=== PATIENT | male | born 1965 | race Caucasian/White ===

== ENCOUNTER 2022-08-21 11:24 | Day surgery (SDC) | payer BC, SELFPAY ==
--- NOTE | 2022-08-21 12:20 | W.PM.PROCNOT ---
Date of procedure: 08/21/22 Procedure: Bilateral Lateral cutaneous branch Iliohypogastric nerve injection, diagnostic Preop diagnosis includes pain secondary to neuritis of Bilateral Lateral cutaneous branch middle cluneal nerves Postop diagnosis same Performed under fluoroscopic guidance Immediate complications none Anesthesia: none Solution used for injection: In each syringe, 2 milliliters 0.25% Marcaine 2.5 mL is used for injection for each side Time out process compliant After informed consent obtained patient was brought to the procedure room placed in the prone position skin overlying the area was prepped and draped in a sterile fashion using betadine. 25 gauge spinal needle Insert over each of the target areas identified in fluoroscopy corresponding needles were advanced Under fluoroscopic guidance until the target/targets encountered , no indication of intravascular or Intraneuronal needle tip placement. Solution injected .needles removed post procedurally. patient transferred to recovery room in stable condition to be discharged home after meeting criteria
[2022-08-21 12:31] VITALS: BP 139/81; PULSE 79; RESP 16; TEMP 36.8; O2SAT 98
[2022-08-21 13:05] VITALS: BP 147/79; PULSE 91; RESP 20; O2SAT 97
[2022-08-21] MEDS: BUPIVACAINE HCL 0.25% PF 25 MG/10 ML VIAL 8 ML INJ (13:06)
[2022-08-21 13:08] VITALS: BP 160/75; PULSE 90; O2SAT 97
== END 2022-08-21 13:14 | disposition home or self-care (01) ==
LOC: SURGOUT 11:25
PROVIDERS: PCP Nurse Practitioner Family; Visit Provider Anesthesiology Pain Medicine
DX: G57.83 Other specified mononeuropathies of bilateral lower limbs (principal)
CPT/HCPCS: 64425; 77002

== ENCOUNTER 2022-09-11 12:30 | Outpatient (OUT) | payer BC, SELFPAY ==
--- NOTE | 2022-09-11 17:28 | CONS_ITS ---
CONSULTATION DATE: ??09/11/2022 TO:? Dr. Barcenas HISTORY:? Patient presents today complaining of pain in his left hip area.? He describes it as 5-7/10 pain, sharp in character, increased with any kind of weight bearing maneuvers.? He feels most comfortable in the semi-recumbent position.? Denies any change in bowel and bladder habits or new sensorimotor changes in the lower extremities. EXAM:? Notable for patient having no clinical radiculopathy or myelopathy involving the lower extremities.? Patient had exquisitely positive left sided FABERs sign, suggestive of left hip joint related pain clinically.? IMPRESSION:? Patient appears to have chronic pain secondary to left hip joint related pain clinically. RECOMMENDATIONS:? I have recommended him to undergo an MRI of his left hip joint.? In the interim, I have increased his baclofen 10 mg pills, 1-2 pills t.i.d. as tolerated.? As part of providing excellent, safe, comprehensive care, the following was completed at our patient's visit: 1. A medication reconciliation and review to ensure accurate knowledge of current/active medications, including asking our patients to inform us about any [id number] medications or herbal remedies/nutritional supplements/alternative remedies. 2. A review to specifically ensure our patients have had annual screening for: elevated body mass index (BMI, see intake chart for exact total), tobacco use, screening for depression, and screening for unhealthy alcohol use.? When screening is concerning, patients are provided with education and the specific recommendation to discuss the concerning health issue and treatment options with their primary care provider. LEIF
== END 2022-09-11 12:31 | disposition home or self-care (01) ==
LOC: PM 12:31
PROVIDERS: PCP Nurse Practitioner Family; Visit Provider Anesthesiology Pain Medicine
DX: M25.552 Pain in left hip (principal); G89.29 Other chronic pain
CPT/HCPCS: G0463

== ENCOUNTER 2022-09-20 12:25 | Outpatient (OUT) | payer BC, SELFPAY ==
--- NOTE | 2022-09-20 12:46 | XR_ITS ---
[address] [address] Patient Name: ASHOK DOSS MRN: [id number] date: 1965 Sex: M Assigned Patient Location: RAD Current Patient Location: [facility] Accession/Order Number: [id number] Exam Date: 09/20/2022 12:47 Report Date: 09/20/2022 13:30 At the request of: AGUSTO STARKS Procedure: XR foreign body eye EXAM: XR foreign body eye HISTORY: Foreign body eye COMPARISON: None. TECHNIQUE: AP and lateral Radiographs of the orbits FINDINGS: No radiopaque foreign body identified in the region of the orbits. Dental amalgam. XR/XR foreign body eye IMPRESSION: No radiopaque foreign body in the region of the orbits. Electronically authenticated by: NURIS RIVERA Date: 09/20/2022 13:30
--- NOTE | 2022-09-20 13:10 | MR_ITS ---
The [address] [address] Patient Name: ASHOK DOSS MRN: [id number] date: 1965 Sex: M Assigned Patient Location: [facility] Current Patient Location: [facility] Accession/Order Number: [id number] Exam Date: 09/20/2022 13:10 Report Date: 09/21/2022 14:35 At the request of: AGUSTO STARKS Procedure: MR hip LT wo con EXAM: MR hip LT wo con HISTORY: Lumbar pain. M25.552. Left hip pain for 2 months. Prior right leg injury with over compensating on the left. COMPARISON: Pelvis and bilateral hip x-rays from 07/31/2022. TECHNIQUE: Multiplanar and multisequence imaging of the pelvis and left hip was performed without contrast. FINDINGS: There is no sacral fracture. The pelvic bones are intact including the pubic rami. There is no MRI evidence of avascular necrosis involving the femoral heads. No femoral stress or insufficiency fracture is identified. Moderate to severe degenerative change/osteoarthritis involves the left hip including high-grade or full-thickness articular cartilage loss along the superolateral aspect of the left hip measuring approximately 1 cm in diameter. There is a small to moderate left hip joint effusion with an associated tear of the superior labrum on the left. An area of loculated fluid signal along the lateral margin of the superior acetabulum on the left measures 1.9 x 1.3 x 1.3 cm likely representing a complex paralabral cyst. Mild to moderate degenerative change/osteoarthritis involves the right hip with articular cartilage loss and joint space narrowing. There is a small right hip joint effusion. There appears to be a tear of the superior labrum on the right as well. The hamstring tendon origin from the ischial tuberosity demonstrates intermediate signal and mild to moderate tendinopathy more pronounced on the right. The iliopsoas tendons insert normally onto the lesser trochanter. The gluteal tendon attachment onto the greater trochanter is intact bilaterally. There is no MRI evidence of trochanteric bursitis. No acute abnormality is identified involving visualized intrapelvic structures. There is moderate to severe degenerative disc disease at L5-S1. MR/MR hip LT wo con IMPRESSION: 1. Moderate to severe degenerative change/osteoarthritis involves the left hip including high-grade articular cartilage loss along the superolateral aspect of the left hip. 2. There is a small to moderate left hip joint effusion with a tear of the superior labrum on the left. There is a complex paralabral cyst lateral to the superior acetabulum on the left measuring 1.9 x 1.3 x 1.3 cm. 3. Mild to moderate degenerative change/osteoarthritis involves the right hip. 4. No acute fracture or MRI evidence of avascular necrosis involving the femoral heads. 5. There is mild to moderate tendinopathy of the hamstring tendon origin bilaterally. 6. Moderate to severe degenerative disc disease is present at L5-S1. Electronically authenticated by: JENAE CASILLAS Date: 09/21/2022 14:35
== END 2022-09-20 12:26 | disposition home or self-care (01) ==
LOC: RAD 12:25
PROVIDERS: PCP Nurse Practitioner Family; Visit Provider Anesthesiology Pain Medicine
DX: M25.552 Pain in left hip (principal); M16.12 Unilateral primary osteoarthritis, left hip; S43.432A Superior glenoid labrum lesion of left shoulder, initial encounter; M47.816 Spondylosis without myelopathy or radiculopathy, lumbar region
CPT/HCPCS: 70030; 73721

== ENCOUNTER 2022-09-27 11:02 | Outpatient (OUT) | payer BC, SELFPAY ==
--- NOTE | 2022-09-27 11:12 | PM.CN ---
Consult Note: HPI Data of Consult Patient: known to practice within the last 3 years Consult date: 09/27/22 Requesting Physician: AD GOTTLIEB NP Primary Care Provider: HUNTER ROBINS Consult Narrative Narrative: Patient is here for f/u of hip pain. Pain is in the left hip, worse with walking and ROM exercises. No new sensorimotor sx or bowel or bladder issues. No adverse medication SE. Medications assist patient with better ability to perform ADLs. MRI results discussed with patient, questions answered. He has seen orthopedics for his knee and they advised he would need total hip done left. He wants to get surgery done and does not want hip injections at this time. cc:: CC: AD GOTTLIEB NP Review of Systems ROS Status of ROS 10 or more systems reviewed and unremarkable except as noted in history and below Musculoskeletal Reports: extremity pain and joint pain Meds Home Medications and Allergies Home Medications Medication Instructions Recorded Confirmed Type apixaban 5 mg tablet (Eliquis) 5 mg Q12H 08/14/22 History aspirin 81 mg capsule 81 mg PO DAILY 08/14/22 08/21/22 History atorvastatin 80 mg tablet mg PO .HS 08/14/22 History baclofen 10 mg tablet 10 mg PO TID PRN muscle spasm 08/14/22 08/21/22 History divalproex 125 mg tablet,delayed 125 mg PO TID 08/14/22 08/21/22 History release hydrocodone 5 mg-acetaminophen 325 1 tab PO BID PRN pain 08/14/22 08/21/22 History mg tablet lisinopril 20 tab PO .QD 08/14/22 History mg-hydrochlorothiazide 12.5 mg tablet metoprolol tartrate 25 mg tablet mg PO BID 08/14/22 History Allergies Allergy/AdvReac Type Severity Reaction Status Date / Time No Known Drug Allergies Allergy Verified 08/14/22 16:02 Exam Constitutional Documenting provider has reviewed patient's vital signs: yes Common normals: no apparent distress, oriented x3, healthy appearing, alert and well nourished General appearance: cooperative, comfortable and well developed Orientation/consciousness: Yes awake, Yes oriented to person, Yes oriented to place and Yes oriented to time HENNM Common normals: normocephalic and moist oral mucous membranes Respiratory Common normals: normal respiratory effort, no retractions and no use of accessory muscles Effort & inspection: able to speak in complete sentences and symmetric chest movement Extremity Common normals: normal capillary refill and no pedal edema Other: left hip pain with ROM, no radiculopathy muscle strength 4/5 bilat with intact sensation Assessment and Plan Assessment and Plan (1) Osteoarthritis, hip, bilateral: Plan orthopedic referral narcan rx
== END 2022-09-27 11:03 | disposition home or self-care (01) ==
PROVIDERS: PCP Nurse Practitioner Family; Visit Provider Nurse Practitioner
DX: M16.0 Bilateral primary osteoarthritis of hip (principal)
CPT/HCPCS: G0463

== ENCOUNTER 2022-12-27 10:58 | Outpatient (OUT) | payer BC, SELFPAY ==
--- NOTE | 2022-12-27 11:15 | P.CN_ITS ---
Consult Note: HPI Data of Consult Patient: known to practice within the last 3 years Consult date: 09/27/22 Requesting Physician: Priscilla Elkins NP Primary Care Provider: HUNTER ROBINS Consult Narrative Reason for consult: f/u Narrative: Patient is here for f/u of hip pain. Pain is in the left hip, worse with walking and ROM exercises. No new sensorimotor sx or bowel or bladder issues. No adverse medication SE. Medications assist patient with better ability to perform ADLs. He has seen orthopedics for his knee and they advised he would need total hip done left. He wants to get surgery done and does not want hip injections at this time. Currently working with [employer] and [employer] to get his hip surgery covered. Today rating pain 4/10 in left hip cc:: CC: Priscilla Elkins NP Review of Systems ROS Status of ROS 10 or more systems reviewed and unremarkable except as noted in history and below Musculoskeletal Reports: extremity pain and joint pain Meds Home Medications and Allergies Home Medications Medication Instructions Recorded Confirmed Type apixaban 5 mg tablet (Eliquis) 5 mg Q12H 08/14/22 History aspirin 81 mg capsule 81 mg PO DAILY 08/14/22 08/21/22 History atorvastatin 80 mg tablet mg PO .HS 08/14/22 History baclofen 10 mg tablet 10 mg PO TID PRN muscle spasm 08/14/22 08/21/22 History divalproex 125 mg tablet,delayed 125 mg PO TID 08/14/22 08/21/22 History release hydrocodone 5 mg-acetaminophen 325 1 tab PO BID PRN pain 08/14/22 08/21/22 History mg tablet lisinopril 20 tab PO .QD 08/14/22 History mg-hydrochlorothiazide 12.5 mg tablet metoprolol tartrate 25 mg tablet mg PO BID 08/14/22 History hydrocodone 5 mg-acetaminophen 325 1 tab PO BID PRN pain #60 tabs 10/17/22 Rx mg tablet hydrocodone 5 mg-acetaminophen 325 1 tab PO BID PRN pain #60 tabs 11/15/22 Rx mg tablet hydrocodone 5 mg-acetaminophen 325 1 tab PO BID PRN pain #60 tabs 11/15/22 Rx mg tablet hydrocodone 5 mg-acetaminophen 325 1 tab PO BID PRN pain #60 tabs 12/19/22 Rx mg tablet Allergies Allergy/AdvReac Type Severity Reaction Status Date / Time No Known Drug Allergies Allergy Verified 08/14/22 16:02 Exam Constitutional Documenting provider has reviewed patient's vital signs: yes Common normals: no apparent distress, oriented x3, healthy appearing, alert and well nourished General appearance: cooperative, comfortable and well developed Orientation/consciousness: Yes awake, Yes oriented to person, Yes oriented to place and Yes oriented to time HENMT Common normals: normocephalic and moist oral mucous membranes Respiratory Common normals: normal respiratory effort, no retractions and no use of accessory muscles Effort & inspection: able to speak in complete sentences and symmetric chest movement Extremity Common normals: normal capillary refill and no pedal edema Other: left hip pain with ROM, no radiculopathy muscle strength 4/5 bilat with intact sensation Neuro Common normals: oriented x3, moves all extremities and deep tendon reflexes 2+ bilaterally Gait (neuro): antalgic and assistive device used cane Motor exam: strength abnormal (4/5 LLE) Assessment and Plan Assessment and Plan (1) Osteoarthritis, hip, bilateral: (2) Labral tear of left hip joint: (3) Chronic prescription opiate use: Assessment and Plan: I have refilled the patient's opioid prescriptions at the above noted dose and schedule.? I feel these medications are improving the patient's quality of life and allow them to tolerate activities of daily living as well as participate in recreational activity.? The patient does not report intolerable side effects. The patient is NOT opioid naive and non-pharmacologic and non-opioid treatment has failed to significantly relieve the patient's pain and improve functionality. The patient has a diagnosis that is related to a somatic or visceral pain etiology. ? ?? I reviewed with the patient the potential risks and side effects with the use of? opioid medications including but not limited to respiratory depression,? sedation, and even . I verified the patient has access to naloxone should? these effects occur. I advised the patient to avoid the use of any other? sedation substances including alcohol, THC, and benzodiazepines while? taking opioid medications due to the risk of compounding side effects and? detrimental outcomes. I reviewed the DISTANCE LEARNING PROGRAM COORDINATOR, pain treatment agreement, urine? drug screen, and opioid start talking forms. The patient was advised to let? their family know they had Naloxone in case they would need to administer? the medication.? ?? A drug screen was completed within the last year, and no aberrancies were noted regarding their use of controlled substances. The patient understands they are subject to the terms and conditions of the pain contract that they have signed. ? ?? I have checked an [place] report on this patient today and there are no aberrancies noted in the prescribing history.? Plan UDS updated today start lidocaine 5% patch to left hip 12hours on 12hours off continue current medication regimen tolerating well without side effect rusty previously discussed and prescribed continue f/u with ortho f/u 3 months for medication management
== END 2022-12-27 10:59 | disposition home or self-care (01) ==
PROVIDERS: PCP Nurse Practitioner Family; Visit Provider Nurse Practitioner
DX: M16.0 Bilateral primary osteoarthritis of hip (principal); S73.192A Other sprain of left hip, initial encounter; Z79.899 Other long term (current) drug therapy
CPT/HCPCS: G0463

== ENCOUNTER 2023-03-28 12:36 | Outpatient (OUT) | payer BC, SELFPAY ==
--- OUTSIDE RECORDS SUMMARY | 2023-03-28 12:40 | XMS_ITS | CCD ---
Author Name Unknown Address [address] [place] [address] Organization [facility] Care Team Providers Care Tool Repairer Name Role Phone Brenda Caglevajeansad Paulina Primary Care Provider KASH GRIER Referring Unavailabl e GURJIT, SHIVAPRASAD K Primary Care Unavailabl e GURJIT, SHIVAPRASAD K Referring Unavailabl e KASH GRIER Primary Care Unavailabl e GURJIT, SHIVAPRASAD K Referring Unavailabl e KASH GRIER Primary Care Unavailabl e GURJIT, SHIVAPRASAD K Primary Care Unavailabl e LIU JACKSON Referring Unavailable ANAYA HORTON Referring Unavailable GURJIT, SHIVAPRASAD K Primary Care Unavailabl e NARRA, FLACO Referring Unavailable KASH GRIER Primary Care Unavailabl e GURJIT, SHIVAPRASAD K Referring Unavailabl e KASH GRIER Primary Care Unavailabl e LIU JACKSON Admitting Unavailable LIU JACKSON Attending Unavailable GURJIT, SHIVAPRASAD K Primary Care Unavailabl e NARRA, FLACO Referring Unavailable KASH GRIER Primary Care Unavailabl e GURJIT, SHIVAPRASAD K Primary Care Unavailabl e KASH GRIER Referring Unavailabl e GURJIT, SHIVAPRASAD K Primary Care Unavailabl e KASH GRIER Referring Unavailabl e GURJIT, SHIVAPRASAD K Primary Care Unavailabl e PATRIA QUIÑONES Referring Unavailable Kash Grier Primary Care Provider Colten Parra Unavailable Unavailable Unavailable Unavailable Primary Care Provider Unavailindira e DELMI ., DR COMPA Vo Attending Unavailable AWAD ., DR COMPA Vo Admitting Unavailable JULIENNE, HUNTER Primary Care Unavailable AWAD ., DR COMPA Vo Consulting Unavailable SHARP, TRISTA Consulting Unavailable LAKSHMIPATHY ., NARENDRANATH Attending Nora vailable LAKSHMIPATHY ., NARENDRANATH Admitting Nora vailable JULIENNE, [facility] Primary Care Unavailable LAKSHMIPATHY ., NARENDRANATH Consulting Nora vailable HALKER ., AD Attending Unavailable JULIENNE, [facility] Primary Care Unavailable LAKSHMIPATHY ., NARENDRANATH Consulting Nora vailable HALKER ., AD Admitting Unavailable AWAD ., DR COMPA Vo Attending Unavailable AWAD ., DR COMPA Vo Admitting Unavailable JULIENNE, [facility] Primary Care Unavailable MALDONADO ., MYRIAM Consulting Unavailable AWAD ., DR COMPA Vo Attending Unavailable AWAD ., DR COMPA Vo Admitting [facility] Unavailable AWAD ., DR COMPA Vo Consulting Unavailable SHARP, TRISTA Consulting Unavailable AWAD ., DR COMPA Vo Attending Unavailable AWAD ., DR COMPA Vo Admitting Unavailable JULIENNE, [facility] Primary Care Unavailable MALDONADO ., MYRIAM Consulting Unavailable AWAD ., DR COMPA Vo Attending Unavailable AWAD ., DR COMPA Vo Admitting [facility] Care Unavailable AWAD ., DR COMPA Vo Consulting Unavailable AWAD ., DR COMPA Vo Attending Unavailable AWAD ., DR COMPA Vo Admitting Un[facility] Primary Care Unavailable AWAD ., DR COMPA Vo Consulting Unavailable JULIENNE, [facility] Primary Care Unavailable ROBERTO ., DANITZA Attending Unavailable ROBERTO ., DANITZA Admitting Unavailable LORENZO ., JANA MENDOZA Consulting Unavailindira MACEOD, TANNER Consulting Unavailable JULIENNE, [facility] Primary Care Unavailable OSBORNE ., MR ROZ Consulting Unavailable OSBORNE ., MR ROZ Attending Unavailable OSBORNE ., MR ROZ Admitting Unavailable EDSON PEACOCK Consulting Unavailable AWAD ., DR COMPA Vo Admitting Unavailable AWAD ., DR COMPA Vo Consulting Unavailable [facility] Primary Care Unavailable AWAD ., DR COMPA Vo Attending Unavailable LAKSHMIPATHY ., NARENDRANATH Attending Nora vailable LAKSHMIPATHY ., NARENDRANATH Admitting Nora vailable JULIENNE, [facility] Primary Care Unavailable WEST, DR VASILE Gentile Consulting Unavailable DR MICHAEL OROZCO Consulting Unavailable LAKSHMIPATHY ., AGUSTO Consulting Nora tom AWAD ., DR COMPA Vo Attending Unavailable DELMI ., DR COMPA Vo Admitting Unavailable HUNTER ROBINS Primary Care Unavailable MYRIAM ANDERSON Consulting Unavailable WINIFRED BORGES Attending Unavailable Marge GARCIA, Antonio Rodriguez Primary Care Unavailable Armin GARCIA, Edson Bocanegra Attending Unavaila ble Medications Current Medications Medication Drug Class(es) Dates Sig (Normalized) Sig (Original) acetaminophen 325 mg / HYDROcodone bitartrate 5 mg oral tablet (3 sources) Opioid Agonist Start: 11-10-2019 End: 11-15-2019 take 1 tablet by mouth every four hours as needed for pain, then take 1 tablet by mouth as needed for pain HYDROcodone-aceta minophen (NORCO) 5-325 MG per tablet Indications: Acute medial meniscus tear of left knee, initial encounter Take 1 tablet by mouth every 4 hours as needed for Pain for up to 5 days. Intended supply: 5 days. Take lowest dose possible to manage pain 30 tablet 0 11/10/2019 11/15/2019 Active Kinmundy 5-325 MG T ABS TAKE 1 TABLET EVERY 12 HOURS NEEDED. Quantity: 0 Refills: 0 Ordered: 26-Nov-2022 DO Active calcium chloride 0.0014 meq/ml / potassium chloride 0.004 meq/ml / sodium chloride 0.103 meq/ml / sodium lactate 0.028 meq/ml injectable solution (1 source) Start: 11-10-2019 lactated ringers infusion cyclobenzaprine hydrochloride 10 mg oral tablet (13 sources) Muscle Relaxant Start: 01-06-2020 take 1 tablet by mouth twice daily as needed for muscle spasms cyclobenzaprine (FLEXERIL) 10 MG tablet Take 1 tablet by mouth 2 times daily as needed for Muscle spasms 30 tablet 0 01/06/2020 Active Start: 10-06-2019 take 1 tablet by francesco th twice daily as needed for muscle spasms cyclobenzaprine (FLEXERIL) 10 MG tablet Take 1 tablet by mouth 2 times daily as needed for Muscle spasms 30 tablet 0 10/06/2019 Active Start: 09-16-2019 take 1 tablet by francesco th twice daily as needed for muscle spasms cyclobenzaprine (FLEXERIL) 10 MG tablet Take 1 tablet by mouth 2 times daily as needed for Muscle spasms 30 tablet 0 09/16/2019 Active Start: 10-13-2018 cyclobenzaprin e (FLEXERIL) 10 MG tablet 1 ml diphenhydrAMINE hydrochloride 50 mg/ml cartridge (1 source) Histamine-1 Receptor Antagonist Start: 11-10-2019 End: 11-10-2019 diphenhydrAMINE (BENADRYL) injection 12.5 mg 2 ml fentaNYL 0.05 mg/ml injection (2 sources) Opioid Agonist Start: 11-10-2019 fentaNYL (SUBL IMAZE) injection 25 mcg Start: 11-10-2019 fentaNYL (SUBL IMAZE) injection 50 mcg 1 ml hydrALAZINE hydrochloride 20 mg/ml injection (1 source) Arteriolar Vasodilator Start: 11-10-2019 hydrALAZINE (APRESOLINE) injection 5 mg 1 ml HYDROmorphone hydrochloride 1 mg/ml cartridge (1 source) Opioid Agonist Start: 11-10-2019 HYDROmorphone (DILAUDID) injection 0.5 mg ibuprofen 600 mg oral tablet (2 sources) Nonsteroidal Anti-inflammatory Drug ibuprofen (ADVIL;MOTRIN) 600 MG tablet ibuprofen 600 mg tablet 0 Active 4 ml labetalol hydrochloride 5 mg/ml cartridge (1 source) beta-Adrenergic Sam Start: 11-10-2019 labetalol (NORMODYNE;TRANDATE ) injection 5 mg magnesium gluconate 550 mg oral tablet (2 sources) take 1 tablet by mouth once daily magnesium 30 MG tablet Take 30 mg by mouth daily 0 Active 1 ml meperidine hydrochloride 25 mg/ml cartridge (1 source) Opioid Agonist Start: 11-10-2019 meperidine (DEMEROL) injection 12.5 mg 2 ml metoclopramide 5 mg/ml prefilled syringe (1 source) Dopamine-2 Receptor Antagonist Start: 11-10-2019 End: 11-10-2019 metoclopramide (REGLAN) injection 10 mg 1 ml morphine sulfate 2 mg/ml cartridge (1 source) Opioid Agonist Start: 11-10-2019 morphine (PF) injection 2 mg 2 ml ondansetron 2 mg/ml injection (1 source) Serotonin-3 Receptor Antagonist Start: 11-10-2019 End: 11-10-2019 ondansetron (ZOFRAN) injection 4 mg potassium chloride 10 meq extended release oral capsule (2 sources) take 1 capsule by mouth once daily, then take 1 capsule by mouth potassium chloride (MICRO-K) 10 MEQ extended release capsule Take 10 mEq by mouth daily 0 Active rOPINIRole 1 mg oral tablet (13 sources) Nonergot Dopamine Agonist Start: 03-15-2020 take 1 tablet by mouth once daily rOPINIRole (REQUIP) 1 MG tablet TAKE 1 TABLET BY MOUTH EVERY DAY 90 tablet 0 03/15/2020 Active Start: 02-09-2019 take 1 tablet by francesco th once daily rOPINIRole (REQUIP) 1 MG tablet TAKE 1 TABLET BY MOUTH EVERY DAY 90 tablet 1 02/09/2019 Active Start: 07-27-2018 take 1 tablet by francesco th once daily rOPINIRole (REQUIP) 1 MG tablet TAKE 1 TABLET BY MOUTH EVERY DAY 3 07/27/2018 Active tamsulosin hydrochloride 0.4 mg oral capsule (12 sources) alpha-Adrenergic Sam Start: 11-10-2019 take 1 capsule by mouth once daily tamsulosin (FLOMAX) 0.4 MG capsule TAKE 1 CAPSULE BY MOUTH EVERY DAY 90 capsule 1 11/10/2019 Active Start: 05-06-2019 take 1 capsule by mo [facility] once daily tamsulosin (FLOMAX) 0.4 MG capsule TAKE 1 CAPSULE BY MOUTH EVERY DAY 90 capsule 1 05/06/2019 Active Start: 10-09-2018 take 1 capsule by mo [facility] once daily tamsulosin (FLOMAX) 0.4 MG capsule TAKE 1 CAPSULE BY MOUTH EVERY DAY 0 10/09/2018 Active Completed/Discontinued Medications Medication Drug Class(es) Dates Sig (Normalized) Sig (Original) acetaminophen 325 mg oral tablet (7 sources) take 1-2 tablets by mouth every six hours as needed Acetaminophen 325 MG Oral Tablet TAKE 1 TO 2 TABLETS EVERY 6 HOURS NEEDED. Quantity: 0 Refills: 0 Ordered: 26-May-2021 DO Active acetaminophen 300 mg / codeine phosphate 30 mg oral tablet (2 sources) Opioid Agonist Start: 04-11-2021 take 1 tablet by mouth every twelve hours as needed acetaminophen-codei ne (TYLENOL-COD #3) 300-30 mg per tablet Take 1 tablet by mouth twice daily as needed. 0 04/11/2021 Active Comment on above: Take 1 tablet by francesco th twice daily as needed. [id number] 60 actuat albuterol 0.09 mg/actuat metered dose inhaler (2 sources) beta2-Adrenergic Agonist Start: 11-12-2020 take 1 puff(s) by inhalation every four hours as needed Albuterol Sulfate HFA 108 (90 Base) MCG/ACT Inhalation Aerosol Solution INHALE 1 PUFF EVERY 4 HOURS NEEDED. Quantity: 0 Refills: 0 Ordered: 13-Nov-2020 DO Start : 12-Nov-2020 Active aspirin 81 mg delayed release oral tablet (11 sources) Platelet Aggregation Inhibitor, Nonsteroidal Anti-inflammatory Drug take 1 tablet by mouth once daily Aspirin EC 81 MG Oral Tablet Delayed Release TAKE 1 TABLET DAILY. Quantity: 90 Refills: 3 Ordered: 19-Oct-2021 Leonid Figueredo MD Active aspirin, enteric coated (ASPIRIN, ENTERIC COATED) 81 mg EC tablet Take by mouth q 24 HR. 0 Active Comment on above: Take by mouth q 24 H R. atorvastatin 80 mg oral tablet (12 sources) HMG-CoA Reductase Inhibitor Start: 1 take 1 tablet by mouth once daily Atorvastatin Calcium 80 MG Oral Tablet TAKE 1 TABLET BY MOUTH EVERY DAY Quantity: 90 Refills: 3 Ordered: 29-Nov-2021 Leonid Figueredo MD Start : 29-Nov-2020 Active Comment on above: Take 80 mg by mouth once daily. baclofen 10 mg oral tablet (1 source) gamma-Aminobutyric Acid-ergic Agonist take 3 tablets by mouth once daily as needed for muscle spasms Baclofen 10 MG Oral Tablet TAKE 3 tablets DAILY NEEDED FOR MUSCLE SPASM. Quantity: 0 Refills: 0 Ordered: 26-Nov-2022 DO Active colchicine 0.6 mg oral tablet (6 sources) Start: 0 End: 0 take 1 tablet by mouth once daily colchicine (COLCRYS) 0.6 MG tablet Take 1 tablet by mouth daily 30 tablet 3 09/16/2019 11/02/2019 Discontinued (Therapy completed) Start: 12-08-2018 take 1 tablet by francesco th twice daily colchicine (COLCRYS) 0.6 MG tablet Take 1 tablet by mouth 2 times daily 10 tablet 1 12/08/2018 Active hydroCHLOROthiazide 12.5 mg / lisinopril 20 mg oral tablet (20 sources) Thiazide Diuretic, Angiotensin Converting Enzyme Inhibitor Start: 11-29-2020 take 1 tablet by mouth once daily Lisinopril-hydroCHLOROthiazide 20-12.5 MG Oral Tablet TAKE 1 TABLET Daily Quantity: 90 Refills: 3 Ordered: 09-Jan-2022 Leonid Figueredo MD Start : 29-Nov-2020 Active Start: 11-10-2019 take 1 tablet by francesco th once daily lisinopril-hydroCHLOROthiazide (PRINZIDE;ZESTORETIC) 20-12.5 MG per tablet TAKE 1 TABLET BY MOUTH EVERY DAY 90 tablet 1 11/10/2019 Active Start: 08-14-2019 take 1 tablet by francesco th once daily lisinopril-hydroCHLOROthiazide (PRINZIDE;ZESTORETIC) 20-12.5 MG per tablet TAKE 1 TABLET BY MOUTH EVERY DAY 90 tablet 0 08/14/2019 Active Start: 10-30-2018 take 1 tablet by francesco th once daily lisinopril-hydrochlorothiazide (PRINZIDE;ZESTORETIC) 20-12.5 MG per tablet TAKE 1 TABLET BY MOUTH EVERY DAY 90 tablet 1 10/30/2018 Active Comment on above: Take 1 tablet by francesco th once daily. 24 hr hydroCHLOROthiazide 12.5 mg / metoprolol succinate 25 mg extended release oral tablet (2 sources) Thiazide Diuretic, beta-Adrenergic Sam metoprolol trujillo-hydrochlorothiaz 25-12.5 mg Tb24 Take by mouth. 0 Active Comment on above: Take by mouth. metoprolol tartrate 25 mg oral tablet (10 sources) beta-Adrenergic Sam Start: 2020 take 1 tablet by mouth twice daily Metoprolol Tartrate 25 MG Oral Tablet TAKE 1 TABLET TWICE DAILY. Quantity: 0 Refills: 0 Ordered: 14-Dec-2020 DO Start : 29-Nov-2020 Active 24 hr nicotine 0.875 mg/hr transdermal system (2 sources) Cholinergic Nicotinic Agonist Start: 2020 apply 1 dose transdermal route once daily Nicotine 21 MG/24HR Transdermal Patch 24 Hour APPLY 1 PATCH DAILY DIRECTED. Quantity: 0 Refills: 0 Ordered: 15-Dec-2020 DO Start : 29-Nov-2020 Active nitroglycerin 0.4 mg sublingual tablet (12 sources) Nitrate Vasodilator Start: 2020 nitroglycerin sublingual (NITROQUICK) 0.4 mg SL tablet USE 1 UNDER THE TONGUE EVERY 5 MIN FOR CHEST PAIN. MAX 3 TABS IN 15 MIN. CALL 911 IF PAIN PERSISTS. 0 02/20/2021 Active Start: 11-22-2020 Nitroglycerin 0.4 MG Sublingual Tablet Sublingual DISSOLVE 1 TABLET UNDER THE TONGUE EVERY 5 MINUTES NEEDED FOR CHEST PAIN. MAX OF 3 TABLETS IN 15 MINUTES. CALL 911 IF PAIN PERSISTS. Quantity: 25 Refills: 3 Ordered: 27-Dec-2020 Kalie Laguna Start : 22-Nov-2020 Active Comment on above: USE 1 UNDER THE TONG UE EVERY 5 MIN FOR CHEST PAIN. MAX 3 TABS IN 15 MIN. CALL 911 IF PAIN PERSISTS. 24 hr propranolol hydrochloride 80 mg extended release oral capsule (7 sources) beta-Adrenergic Sam Start: 9 End: 0 take 1 capsule by mouth once daily propranolol (INDERAL LA) 80 MG extended release capsule TAKE 1 CAPSULE BY MOUTH EVERY DAY 90 capsule 1 01/22/2019 11/02/2019 Discontinued (Therapy completed) Start: 10-28-2018 take 1 capsule by [facility] once daily propranolol (INDERAL LA) 80 MG extended release capsule TAKE 1 CAPSULE BY MOUTH EVERY DAY 30 capsule 2 10/28/2018 Active rizatriptan 10 mg oral tablet (2 sources) Serotonin-1b and Serotonin-1d Receptor Agonist Start: 10-30-2018 rizatriptan (MAXALT) 10 MG tablet Take 1 tablet by mouth once as needed for Migraine May repeat in 2 hours if needed 9 tablet 1 10/30/2018 Suspended ticagrelor 90 mg oral tablet (6 sources) Start: 11-29-2020 take 1 tablet by mouth twice daily Brilinta 90 MG Oral Tablet TAKE 1 TABLET TWICE DAILY. Quantity: 0 Refills: 0 Ordered: 19-Dec-2020 DO Start : 29-Nov-2020 Active Comment on above: Take 90 mg by mouth twice daily. tiZANidine 4 mg oral capsule (5 sources) Central alpha-2 Adrenergic Agonist tiZANidine HCl - 4 MG Oral Capsule as needed Quantity: 0 Refills: 0 Ordered: 19-Oct-2021 DO Active divalproex sodium 125 mg delayed release oral tablet (16 sources) Mood Stabilizer, Anti-epileptic Agent Start: 02-28-2021 take 1 tablet by mouth once daily divalproex DR (DEPAKOTE) 125 mg EC tablet Take 125 mg by mouth once daily. 0 02/28/2021 Active Start: 04-06-2020 take 1 tablet by francesco th twice daily divalproex (DEPAKOTE) [address] tablet TAKE 1 TABLET BY MOUTH TWICE A DAY 60 tablet 0 04/06/2020 Active Start: 04-13-2019 take 1 tablet by francesco th twice daily divalproex (DEPAKOTE) [address] tablet TAKE 1 TABLET BY MOUTH TWICE A DAY 180 tablet 1 04/13/2019 Active Start: 10-30-2018 take 1 tablet by francesco th twice daily divalproex (DEPAKOTE) [address] tablet Take 1 tablet by mouth 2 times daily 90 tablet 3 10/30/2018 Active Comment on above: Take 125 mg by mouth once daily. Problems Active Problems Problem Classification Problem Date Documented Date Episodic/Chronic Acute myocardial infarction (6 sources) Myocardial infarction; Translations: [Acute myocardial infarction of other inferior wall, episode of care unspecified] Chronic Coronary atherosclerosis and other heart disease (20 sources) Coronary atherosclerosis; Translations: [Coronary atherosclerosis of unspecified type of vessel, [place] or graft] Chronic Coronary atherosclerosis and other heart disease (2 sources) Stented coronary artery; Translations: [Percutaneous transluminal coronary angioplasty status] Episodic Disorders of lipid metabolism (8 sources) Hyperlipidemia; Translations: [Other and unspecified hyperlipidemia] Chronic Essential hypertension (12 sources) Essential hypertension; Translations: [Hypertensive disorder] Chronic Gout and other crystal arthropathies (1 source) Articular gout; Translations: [Gout of foot, unspecified cause, unspecified chronicity, unspecified laterality] Chronic Gout and other crystal arthropathies (1 source) Gouty arthritis of right foot; Translations: [Gouty arthritis of right foot] Nonspecific chest pain (2 sources) Chest discomfort; Translations: [Chest discomfort] Episodic Other circulatory disease (1 source) Cardiac function test normal; Translations: [Normal cardiac ejection fraction] Episodic Other connective tissue disease (1 source) Other muscle spasm; Translations: [OTHER MUSCLE SPASM] Onset: 06-20-2022 Episodic Other nervous system disorders (1 source) Other specified mononeuropathies of bilateral lower limbs; Translations: [OTH SPEC MONONEUROPATH LUPILLO LOW LIMB] Onset: 08-01-2022 Chronic Other nervous system disorders (1 source) Other chronic pain; Translations: [OTHER CHRONIC PAIN] Onset: 06-20-2022 Chronic Other nervous system disorders (1 source) Impairment of balance; Translations: [Other abnormalities of gait and mobility] Episodic Other non-traumatic joint disorders (1 source) Knee pain; Translations: [Acute pain of left knee] Episodic Other non-traumatic joint disorders (1 source) Effusion, left knee; Translations: [Effusion of left knee] Episodic Other non-traumatic joint disorders (1 source) Pain in left hip; Translations: [PAIN IN LEFT HIP] Onset: 08-01-2022 Episodic Other non-traumatic joint disorders (4 sources) Pain in right hip; Translations: [PAIN IN RIGHT HIP] Onset: 07-31-2022 Episodic Other nutritional; endocrine; and metabolic disorders (11 sources) Obesity; Translations: [Obesity, unspecified] Chronic Spondylosis; intervertebral disc disorders; other back problems (13 sources) Cervical spondylosis; Translations: [Other spondylosis with myelopathy, cervical region] Onset: 10-26-2021 Chronic Substance-related disorders (19 sources) Nicotine dependence; Translations: [Smokes tobacco daily] Onset: 03-17-2018 10-06-2019 Chronic Comment on above: 1 ppd; Unclassified (1 source) Injury of left knee; Translations: [Injury of left knee, subsequent encounter] Unclassified (1 source) Acute tear of medial meniscus of left knee; Translations: [Acute medial meniscus tear of left knee, initial encounter] Unclassified (1 source) Patient encounter status; Translations: [Prostate cancer screening] Unclassified (4 sources) LOW BACK PAIN, UNSPECIFIED; Translations: [LOW BACK PAIN, UNSPECIFIED] Onset: 01-10-2022 Unclassified (1 source) COUGH, UNSPECIFIED; Translations: [COUGH, UNSPECIFIED] Onset: 05-07-2022 Unclassified (1 source) CONTACT W/AND (SUSP) EXPOS COVID-19; Translations: [CONTACT W/AND (SUSP) EXPOS COVID-19] Onset: 02-15-2022 Unclassified (2 sources) Acute embolism and thrombosis of right calf muscular vein; Translations: [Acute embolism and thrombosis of right calf muscular vein] Onset: 05-08-2022 Past or Other Problems Problem Classification Problem Date Documented Da te Episodic/Chronic Fracture of lower limb (1 source) Displaced fracture of fourth metatarsal bone, left foot, initial encounter for closed fracture; Translations: [DSPL FX 4TH MT BN LT FT INIT CELE FX] Onset: 01-19-2022 Episodic Other aftercare (1 source) alf (current) use of aspirin; Translations: [NURSING HOME CURRENT USE OF ASPIRIN] Onset: 05-07-2022 Episodic Other aftercare (1 source) Other snf (current) drug therapy; Translations: [OTH NURSING HOME CURRENT DRUG THERAPY] Onset: 05-07-2022 Episodic Other connective tissue disease (5 sources) Other specified soft tissue disorders; Translations: [OTHER SPEC SOFT TISSUE DISORDERS] Onset: 12-28-2021 Episodic Other injuries and conditions due to external causes (1 source) Personal history of (healed) traumatic fracture; Translations: [PERSONAL HX HEALED TRAUMATIC FX] Onset: 05-07-2022 Episodic Other lower respiratory disease (8 sources) Cough; Translations: [Cough] Onset: 03-13-2018 Resolved: 11-05-2019 10-06-2019 Episodic Other lower respiratory disease (1 source) Shortness of breath; Translations: [SHORTNESS OF BREATH] Onset: 05-07-2022 Episodic Other non-traumatic joint disorders (4 sources) Pain in left shoulder; Translations: [PAIN IN LEFT SHOULDER] Onset: 05-03-2022 Episodic Other upper respiratory infections (8 sources) Acute upper respiratory infection; Translations: [Acute upper respiratory infection, unspecified] Onset: 03-17-2018 10-06-2019 Episodic Phlebitis; thrombophlebitis and thromboembolism (2 sources) Personal history of other venous thrombosis and embolism; Translations: [Personal history of other venous thrombosis and embolism] Onset: 05-08-2022 Episodic Spondylosis; intervertebral disc disorders; other back problems (6 sources) Spinal stenosis in cervical region; Translations: [Spinal stenosis, cervical region] Onset: 01-02-2022 Episodic Unclassified (1 source) LOW BACK PAIN, UNSPECIFIED; Translations: [LOW BACK PAIN, UNSPECIFIED] Onset: 06-14-2022 Results Test Name Value Interpretation Reference Range Facility Tobacco Screening.on 023 Adult depression screening assessment No [facility] [address] DO Work Phone: Fall risk assessment b) One or more fall s in the last year [facility] [address] DO Work Phone: Tobacco use status [facility] a) Yes [facility] [facility] [address] DO Work Phone: Tobacco Screening. Yes -[facility] [address] DO Work Phone: 36on 08-23-2022 36 Left vm to reschedul e us and follow up from 08/17/[address] [facility] Telephoneon 08-23-2022 Telephone [phone] Doss,Fidencio as 1965 M Date Provider Department Center 08/23/2022 Sanjuana2-SARINA PATRIA [facility] No family history on file Normal [facility] XR LSPINE 2_3 VIEWSon 2022 XR LSPINE 2_3 VIEWS EXAMINATION: XR LSPI NE 2_3 VIEWS HISTORY: Bilateral hip joint pain , chronic bilateral hip and back pain COMPARISON: XR L-spine 04/14/2021 FINDINGS: BONES: Moderate right convex curvature of lumbar spine. No fracture spondylolisthesis. Multilevel mild degenerative facet arthropathy. DISC SPACES: Mild narrowing L4-5. Moderate narrowing L5-S1. PARASPINOUS: Negative. No paraspinous abnormality is seen. OTHER: Skin surface markers project posterior to the L4-5 facet joints bilaterally. IMPRESSION: 1. Mild dextroscoliosis of lumbar spine. 2. Mild/moderate degenerative disc disease and degenerative facet arthropathy of lower lumbar spine; not appreciably changed. Electronically authenticated by: MICHAEL OROZCO Date: 2022-08-01 08:25 Normal [facility] XR HIPS LUPILLO 3_4V WO PELVISon 07-31-2022 XR HIPS LUPILLO 3_4V WO PELVIS EXAMINATION: XR HIPS LUPILLO 3_4V WO PELVIS HISTORY: Bilateral hip joint pain COMPARISON: No relevant comparison available. FINDINGS: RIGHT FINDINGS: BONES: Mild degenerative changes with joint space narrowing and sclerosis of the superior acetabulum. No acute fracture or dislocation SOFT TISSUES: Negative. No visible soft tissue swelling. OTHER: Negative. LEFT FINDINGS: BONES: Moderate degenerative changes with marginal osteophyte formation and subchondral sclerosis of the acetabulum. No acute fracture or dislocation SOFT TISSUES: Negative. No visible soft tissue swelling. OTHER: Negative. IMPRESSION: RIGHT CONCLUSION: Mild osteoarthritis LEFT CONCLUSION: Moderate osteoarthritis Electronically authenticated by: VASILE VITALE Date: 2022-07-31 14:23 Normal [facility] .BF Diffon 07-23-2022 Body Fld Path Interpretation Normal [facility] Comment on above: Result Comment: Syno vial fluid shows chronic inflammatory cells and synovial cells. Authenticated by: Dr. Luci Leyva Date/Time: Performed By: #### . Body Fluid Differential #### [place] [address] C ANAon 07-23-2022 C NELL --- Final No anaerobic growth after 72 hrs. Normal [facility] Comment on above: Performed By: #### A NAC #### [place] [address] .BF Cell Cnt RBC Aon 023 Fluid RBC Count 3983 /mcL Normal [facility] Comment on above: Performed By: #### . Body Fluid Cell Count RBC Auto #### [place] [address] .BF Cell Cnt WBC Aon 023 Fluid WBC Count 257 /mcL High 0-150 [facility] Comment on above: Performed By: #### . Body Fluid Cell Count WBC Auto #### [place] [id number] .BF Diffon 07-21-2022 Fluid Mononuclear Cells 83 % High 0-78 [facility] Comment on above: Performed By: #### . Body Fluid Differential #### [place] [id number] Fluid Other Cells 2 % Normal 0-[address] [facility] Comment on above: Performed By: #### . Body Fluid Differential #### [place] [address] Fluid Polynuclear Cells 15 % Normal 0-25 [facility] Comment on above: Performed By: #### . Body Fluid Differential #### [facility] [address] [place] [address] BF Cell Counton 07-21-2022 Body Fluid Cell Cnt Type Synovial Normal [facility] Comment on above: Performed By: #### F LCC #### [facility] [address] [place] [address] C Sterile BFon 07-20-2022 C Sterile BF GRAM STAIN Final No growth at 48 hours. Gram Stain Moderate White Blood Cells No organisms seen. Normal [facility] Comment on above: Performed By: #### C SBF #### [facility] (DEFAULT) [address] [place] [id number] Office Visiton 05-08-2022 Follow-up visit [id number] Fidencio Doss as 1965 M Date Provider Department Center 05/08/2022 RuddyWINIFRED BORGES [facility] No family history on file Level of Service:20255 [place] OFFICE/OUTPATIENT NEW LOW MDM 30-44 MINUTES Reason for Visit and Comments: New Patient [632] Normal [facility] BNPon 05-03-2022 Natriuretic peptide B (Bld) [Mass/Vol] 41.0 pg/mL Normal <=900.[address] [facility] Comment on above: Performed By: #### H STROPN, LIPA, BNP, CMP ####[facility] [address] [place], [place] [address]BgDr. Jazzy Powell CBC AUTO DIFFon 05-03-2022 BASO # 0.1 103/ul Normal 0.0-0.1 [facility] Comment on above: Performed By: #### C BC #### [facility] [address] [place] [address] [address] Jazzy Powell Basophils/100 WBC (Bld) 0.5 % Normal 0.2-2.0 [facility] Comment on above: Performed By: #### C BC #### [facility] [address] [place] [address] [address] Jazzy Powell EO # 0.3 103/ul Normal 0.0-0.7 [facility] Comment on above: Performed By: #### C BC #### [facility] [address] [place] [address] Dr. Jazzy Powell Eosinophils/100 WBC (Bld) 1.8 % Normal 0.9-7.0 [facility] Comment on above: Performed By: #### C BC #### [facility] [address] [place] [address] Dr. Jazzy Powell Erythrocyte distribution width (RBC) [Ratio] 13.1 % Normal 11.0-15.0 [facility] Comment on above: Performed By: #### C BC #### [facility] [address] [place] [address] Dr. Jazzy Powell Hematocrit (Bld) [Volume fraction] 40.7 % Critically low 42.0-54.0 [facility] Comment on above: Performed By: #### C BC #### [facility] [address] [place] [address] Dr. Jazzy Powell Hemoglobin (Bld) [Mass/Vol] 13.7 g/dL Critically low 14.0-18.0 [facility] Comment on above: Performed By: #### C BC #### [facility] [address] [place] [address] Dr. Jazzy Powell IG # 0.09 10e3/ul Critically high 0.00-0.03 [facility] Comment on above: Performed By: #### C BC #### [facility] [address] [place] [address] Dr. Jazzy Powell IG % 0.5 % Normal 0.0-0.5 [facility] Comment on above: Performed By: #### C BC #### [facility] [address] [place] [address] Dr. Jazzy Powell LYMPH # 4.7 103/ul Critically high 1.2-3.8 [facility] Comment on above: Performed By: #### C BC #### [facility] [address] [place] [address] Dr. Jazzy Powell Lymphocytes/100 WBC (Bld) 24.5 % Normal 20.5-60.0 [facility] Comment on above: Performed By: #### C BC #### [facility] [address] [place] [address] Dr. Jazzy Powell MANUAL DIFF REQ NO Normal [facility] Comment on above: Performed By: #### C BC #### [facility] [address] [place] [address] Dr. Jazzy Powell MCH (RBC) [Entitic mass] 30.8 pg Normal 25.9-34.0 [facility] Comment on above: Performed By: #### C BC #### [facility] [address] [place] [address] Dr. Jazzy Powell MCHC (RBC) [Mass/Vol] 33.7 g/dL Normal 29.9-35.2 [facility] Comment on above: Performed By: #### C BC #### [facility] [address] [place] [address] Dr. Jazzy Powell MCV (RBC) [Entitic vol] 91.5 fL Normal 80.0-94.0 [facility] Comment on above: Performed By: #### C BC #### [facility] [address] [place] [address] Dr. Jazzy Powell MONO # 2.5 103/ul Critically high 0.3-0.8 [facility] Comment on above: Performed By: #### C BC #### [facility] [address] [place] [address] Dr. Jazzy Powell Monocytes/100 WBC (Bld) 12.8 % Critically high 1.7-12.0 [facility] Comment on above: Performed By: #### C BC #### [facility] [address] [place] [address] [address] Jazzy Powell NEUT # 11.6 103/ul Critically high 1.4-6.5 [facility] Comment on above: Performed By: #### C BC #### [facility] [address] [id number] [address] Jazzy Powell Neutrophils/100 WBC (Bld) 59.9 % Normal 43.0-75.0 [facility] Comment on above: Performed By: #### C BC #### [facility] [address] [place] [address] Dr. Jazzy Powell Platelet mean volume (Bld) [Entitic vol] 8.4 fL Critically low 9.5-13.5 [facility] Comment on above: Performed By: #### C BC #### [facility] [address] [place] [address] [address] Jazzy Powell PLT 332 103/ul Normal 150-[address] [facility] Comment on above: Performed By: #### C BC #### [facility] [address] [place] [address] Dr. Jazzy Powell RBC 4.45 106/ul Critically low 4.70-6.10 [facility] Comment on above: Performed By: #### C BC #### [facility] [address] [place], [place] [address] Dr. Jazzy Powell WBC 19.3 103/ul Critically high 4.0-11.0 [facility] Comment on above: Performed By: #### C BC #### [facility] [address] [place] [address] Dr. Jazzy Powell CTA CHEST WO W CONon 023 CTA CHEST WO W CON EXAMINATION: CTA TATY ST WO W CON, 05/03/2022 7:10 PM EST HISTORY: Pulmonary embolism COMPARISON: None. TECHNIQUE: CT angiography of the chest was performed with IV contrast. MIP (maximum intensity projection) images or 3D post processing was performed. CT dose reduction technique was used, including Automated Exposure Control. FINDINGS: VASCULATURE/PULMONARY ARTERIES: There is satisfactory opacification of the pulmonary arterial system. There is no evidence of pulmonary embolism. The main pulmonary artery is 3.4 cm. The thoracic aorta is normal in caliber. There is partial anomalous pulmonary venous return involving the superior left pulmonary vein. HEART/PERICARDIUM: The heart is normal in size. Coronary artery calcifications. No pericardial effusion. MEDIASTINAL/HILAR LYMPH NODES: No lymphadenopathy. ESOPHAGUS: Normal as visualized. PLEURAL CAVITY: No pleural effusion or pneumothorax. LUNGS/AIRWAYS: There is subsegmental atelectasis in the left lower lobe. No infiltrates or consolidations. No suspicious pulmonary nodules. CHEST WALL/AXILLA/LOWER NECK: Normal. VISUALIZED UPPER ABDOMEN: Normal. BONES: No acute process. IMPRESSION: 1. No evidence of pulmonary embolism. 2. No other acute cardiopulmonary process. 3. 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 4. Mild enlargement of the main pulmonary artery which measures up to 3.4 cm. Electronically authenticated by: TANNER MACEDO Date: 2022-05-03 20:24 Normal [facility] LIPASEon 05-03-2022 Lipase [Catalytic activity/Vol] 126.0 U/L Normal 73.0-393.0 [facility] Comment on above: Performed By: #### H STROPN, LIPA, BNP, CMP ####[facility] [address] [place] [address]Dr. Jazzy Powell PROF 14(COMP METB)on 023 Albumin [Mass/Vol] 3.5 g/dL Normal 3.4-5.0 [facility] Comment on above: Performed By: #### H STROPN, LIPA, BNP, CMP ####[facility] [address] [place] [address]Dr. Jazzy Powell Albumin/Globulin [Mass ratio] 1.0 {ratio} Normal [facility] Comment on above: Performed By: #### H STROPN, LIPA, BNP, CMP ####[facility] [address] [place] [id number]. Jazzy Powell ALP [Catalytic activity/Vol] 101 U/L Normal 46-116 [facility] Comment on above: Performed By: #### H STROPN, LIPA, BNP, CMP ####[facility] [address] [place] [address]Dr. Jazzy Powell ALT [Catalytic activity/Vol] 27 U/L Normal 16-63 [facility] Comment on above: Performed By: #### H STROPN, LIPA, BNP, CMP ####[facility] [address] [place] [address]Dr. Jazzy Powell Anion gap [Moles/Vol] 6.1 mmol/L Normal [facility] Comment on above: Performed By: #### H STROPN, LIPA, BNP, CMP ####[facility] [address] [place], [place] [address]Dr. Jazzy Powell AST [Catalytic activity/Vol] 15 U/L Normal 15-37 [facility] Comment on above: Performed By: #### H STROPN, LIPA, BNP, CMP ####[facility] [address] [place], [place] [address]Dr. Jazzy Powell Bilirubin [Mass/Vol] 0.3 mg/dL Normal 0.2-1.0 [facility] Comment on above: Performed By: #### H STROPN, LIPA, BNP, CMP ####[facility] [address] [place], [place] [address]Dr. Jazzy Powell Calcium [Mass/Vol] 8.9 mg/dL Normal 8.5-10.1 [facility] Comment on above: Performed By: #### H STROPN, LIPA, BNP, CMP ####[facility] [address] [place], [place] [address]Dr. Jazzy Powell Chloride [Moles/Vol] 104 mmol/L Normal 98-[address] [facility] Comment on above: Performed By: #### H STROPN, LIPA, BNP, CMP ####[facility] [address] [place], [place] [address]Dr. Jazzy Powell CO2 [Moles/Vol] 29.4 mmol/L Normal 21.0-32.0 [facility] Comment on above: Performed By: #### H STROPN, LIPA, BNP, CMP ####[facility] [address] [place] [address]Dr. Jazzy Powell Creatinine [Mass/Vol] 0.85 mg/dL Normal 0.70-1.[address] [facility] Comment on above: Performed By: #### H STROPN, LIPA, BNP, CMP ####[facility] [address] [place] [address]Dr. Jazzy Andre EGFR-AF DUTCH >60 Normal >=60 [facility] Comment on above: Performed By: #### H STROPN, LIPA, BNP, CMP ####[facility] [address] [place] [address]Dr. Jazzy Powell EGFR-NON AF DUTCH >60 Normal >=[address] [facility] Comment on above: Performed By: #### H STROPN, LIPA, BNP, CMP ####[facility] [address] [place] [address]Dr. Jazzy Powell Globulin (S) [Mass/Vol] 3.4 g/dL Normal [facility] Comment on above: Performed By: #### H STROPN, LIPA, BNP, CMP ####[facility] [address] [place], [place] [address]Dr. Jazzy Powell Glucose [Mass/Vol] 95 mg/dL Normal 74-106 [facility] Comment on above: Performed By: #### H STROPN, LIPA, BNP, CMP ####[facility] [address] [place] [address]Dr. Shilohmelanie Andre Potassium [Moles/Vol] 3.5 mmol/L Normal 3.5-5.[address] [facility] Comment on above: Performed By: #### H STROPN, LIPA, BNP, CMP ####[facility] [address] [place] [address]Dr. Jazzy Powell Protein [Mass/Vol] 6.9 g/dL Normal 6.4-8.2 [facility] Comment on above: Performed By: #### H STROPN, LIPA, BNP, CMP ####[facility] [address] [place], [place] [address]Dr. Jazzy Powell Sodium [Moles/Vol] 136 mmol/L Normal 136-145 [facility] Comment on above: Performed By: #### H STROPN, LIPA, BNP, CMP ####[facility] [address] [place] [address]Dr. Jazzy Powell Urea nitrogen [Mass/Vol] 17.0 mg/dL Normal 7.0-18.0 [facility] Comment on above: Performed By: #### H STROPN, LIPA, BNP, CMP ####[facility] [address] [place] [address]Dr. Jazzy Powell Urea nitrogen/Creatinine [Mass ratio] 20.0 mg/mg Normal [facility] Comment on above: Performed By: #### H SHIRAPN, LIPA, BNP, CMP ####[facility] [address] [place] [address]Dr. Jazzy Powell PROTIMEon 05-03-2022 INR Coag (PPP) [Relative time] 0.95 {INR} Normal [facility] Comment on above: Performed By: #### P TT, PT ####[facility] [address] [place] [address]Dr. Jazzy Powell INR GUIDELINES SEE BELOW Normal [facility] Comment on above: Result Comment: ANNEMARIE RED INR: 2.0 - 3.0 CONDITIONS NOT LISTED BELOW 2.5 - 3.5 FOR PROSTHETIC HEART VALVE REPLACEMENT 2.5 - 3.5 RECURRENT THROMBOSIS Performed By: #### P TT, PT ####[facility] [address] [place] [address]Dr. Jazzy Powell PT Coag (PPP) [Time] 10.1 s Normal 9.0-11.[address] [facility] Comment on above: Performed By: #### P TT, PT ####[facility] [address] [place] [address]Dr. Jazzy Powell PTTon 05-03-2022 aPTT Coag (Bld) [Time] 28.7 s Normal 22.3-36.2 [facility] Comment on above: Performed By: #### P TT, PT ####[facility] [address] [place], [place] [address]Nl. Jazzy Powell TROPONIN, HIGH SENSITIVITYon 05-03-2022 HSTROP 5.1 pg/mL Normal 4.0-76.[address] [facility] Comment on above: Result Comment: CUT- OFF POINTS HAVE BEEN ESTABLISHED BASED ON THE FOURTH UNIVERSAL DEFINITIONS OF MYOCARDIAL INFARCTION. THE UPPER REFERENCE LIMIT (URL) OF TROPONIN, DEFINED THE 99TH PERCENTILE OF cTnI DISTRIBUTION IN A REFERENCE POPULATION, HAS BEEN CONFIRMED THE DECISION THRESHOLD FOR [place] DIAGNOSIS. Performed By: #### H STROPN, LIPA, BNP, CMP ####[facility] [address] [place], [place] [address]Au. Jazzy Powell Covid-19 PCR (CVDTB)on SARS-CoV-2 (COVID-19) RNA ALLIE+probe Ql (Unsp spec) Not detected Normal NOT DETECTED [facility] Comment on above: Result Comment: When diagnostic testing is negative, the possibility of a false negative should be considered in the context of a patient's recent exposures and the presence of clinical signs and symptoms consistent with SARS-CoV-2. This test is not yet approved or cleared by the [place] FDA. When there are no FDA-approved or cleared tests available, and other criteria are met, FDA can make tests available under an emergency access mechanism called an Emergency Use Authorization (EUA). The EUA for this test is supported by the Advertising Production Manager of Health and Human Service's declaration that circumstances exist to justify the emergency use of in vitro diagnostics for the detection and/or diagnosis of the virus that causes COVID-19. This EUA will remain in effect for the duration of the COVID-19 declaration justifying emergency of IVDs, unless it is terminated or revoked by the FDA (after which the test may no longer be used). Performed By: #### C VDTBH #### [facility] [address] [place], [place] [address] Dr. Jazzy Powell MRI FOOT LT WO CONon 022 MRI FOOT LT WO CON EXAM: MRI FOOT LT WO CON REASON FOR EXAM: Disorder of soft tissue. TECHNIQUE: Multiplanar, multisequence imaging of the left foot was performed without contrast COMPARISON: None. FINDINGS: There is focal intense bone marrow edema involving the fourth metatarsal base. On the sagittal images, there is some linear incomplete T1 hypointense signal. Findings could reflect a nondisplaced fracture, potentially comminuted. There is mild periosteal edema. The remaining bone marrow signal is without fracture or osteonecrosis. Moderate midfoot osteoarthritis most notably at the talonavicular joint. There are also degenerative cystic changes and edema at the angle of Gissane. Moderate osteoarthritis of the first MTP joint. The visualized talar dome is congruent. The subtalar joints intact. The sinus tarsi is narrowed without significant edema. The plantar musculature demonstrates normal bulk and signal. The visualized ankle tendons are grossly intact. No definite evidence of ligamentous injury, although study not tailored for this purpose. The Lisfranc ligament is intact. Nonspecific subcutaneous edema about the lower extremity. IMPRESSION: 1. Focal intense marrow edema involving the fourth metatarsal base, this could represent a nondisplaced fracture. Correlation with plain radiograph could be of benefit. 2. Moderate mid and hindfoot osteoarthritis as described. 3. Moderate osteoarthritis of the first MTP joint. 4. No evidence of ligamentous or tendinous injury. Electronically authenticated by: EDSON PEACOCK Date: 2022-01-01 08:[address] [facility] Office Visit (Cardiology)on 10-19-2021 Follow-up visit Diagnoses/Problems Assessed CAD (coronary atherosclerotic disease) (414.00) (I25.10) History of PTCA (V45.82) (Z98.61) Current every day smoker (305.1) (F17.200) 1 ppd Hyperlipemia (272.4) (E78.5) Hypertension (401.9) (I10) Class 1 obesity with body mass index (BMI) of 33.0 to 33.9 in adult (278.00,V85.33) (E66.9,Z68.33) History of ST elevation myocardial infarction (STEMI) (412) (I25.2) Orders CAD (coronary atherosclerotic disease) Renew: Aspirin EC 81 MG Oral Tablet Delayed Release; TAKE 1 TABLET DAILY CAD (coronary atherosclerotic disease), Hyperlipemia Renew: Atorvastatin Calcium 80 MG Oral Tablet; TAKE 1 TABLET DAILY Class 1 obesity with body mass index (BMI) of 33.0 to 33.9 in adult Healthy Weight Tips; Status:Complete - Retrospective Authorization; Done: [id number] Some eating tips that can help you lose weight.; Status:Complete - Retrospective Authorization; Done: [id number] SocHx: Current every day smoker Tobacco Use Screening; Status:Complete; Done: [id number] You need to quit smoking.; Status:Complete - Retrospective Authorization; Done: [id number] You need to stop smoking. Though it is not easy, more than half of all adult smokers have quit. We encourage you to write down all the reasons you should quit smoking and set a quit date for yourself. Ask us how we can help. You may also call 5-576-GTXYOwned itNOW for free resources and assistance.; Status:Complete - Retrospective Authorization; Done: [id number] Unlinked Stop: Brilinta 90 MG Oral Tablet Patient Instructions Please bring all medicines, vitamins, and herbal supplements with you when you come to the office. Prescriptions will not be filled unless you are compliant with your follow up appointments or have a follow up appointment scheduled as per instruction of your physician. Refills should be requested at the time of your visit. may d/c brilinta at 1 year out front PCI, remain on ASA Labs are done with Workplace, Patient will ring copies. Follow up in 9 months Chief Complaint ASHOK DOSS is being seen for a 5 month follow-up of. History of Present Illness Patient returns in follow-up of problems as noted. In the interim he has had no angina or anginal equivalent symptomatology such that preceded his diagnosis of coronary disease and subsequent PTCA. Treatment and management of his lipids and blood pressure is discussed and reviewed and felt to be adequate and appropriate. He continues to smoke and the benefits of smoking cessation were discussed in detail and elaborated upon. Pointed out to him that it would dramatically reduce his future history of subsequent ST segment myocardial infarction such as he had that led up to our original encounter and subsequent care. He states he is anticipating a multilevel cervical spine fusion and his surgeon has already told him he needs to quit smoking for 6 weeks prior to the procedure. I endorsed that and suggested that if he is able to do that he probably should just stop smoking for the rest of his life if he can do for 6 weeks and he and his both acknowledge that that would be the best for him. In the meantime I did advocate the merits of diet exercise and weight loss in order to further improve his hypertension and lipids. Surgical History Problems History of Ankle surgery History of Back surgery History of Carpal tunnel surgery History of Knee surgery History of Sinus surgery Current Meds Medication NameInstruction Acetaminophen 325 MG Oral TabletTAKE 1 TO 2 TABLETS EVERY 6 HOURS NEEDED. Aspirin EC 81 MG Oral Tablet Delayed ReleaseTAKE 1 TABLET DAILY. Atorvastatin Calcium 80 MG Oral TabletTAKE 1 TABLET DAILY. Brilinta 90 MG Oral TabletTAKE 1 TABLET TWICE DAILY. Lisinopril-hydroCHLOROt hiazide 20-12.5 MG Oral TabletTAKE 1 TABLET DAILY. Metoprolol Tartrate 25 MG Oral TabletTAKE 1 TABLET TWICE DAILY. Nitroglycerin 0.4 MG Sublingual Tablet SublingualDISSOLVE 1 TABLET UNDER THE TONGUE EVERY 5 MINUTES NEEDED FOR CHEST PAIN. MAX OF 3 TABLETS IN 15 MINUTES. CALL 911 IF PAIN PERSISTS. tiZANidine HCl - 4 MG Oral Capsuleas needed Allergies Medication No Known Drug Allergies Recorded By: Shelley Godoy; 12/26/2020 11:02:18 AM Social History Problems Current every day smoker (305.1) (F17.200) 1 ppd Daily caffeine consumption, 2-3 servings a day No alcohol use No illicit drug use Review of Systems Constitutional: not feeling tired. Cardiovascular: no intermittent leg claudication and as noted in HPI. Respiratory: no cough and no shortness of breath. Gastrointestinal: no change in bowel habits and no blood in stools. Integumentary: no skin rashes. Neurological: no seizures and no frequent falls. All other systems have been reviewed and are negative for complaint. Vitals Vital Signs Recorded: [id number] 02:25PM Heart Rate74, L Radial Tfpesvtm345, LUE, Sitting Nxcrinune67, LUE, Sitting Height6 ft 2 in Hnbybl773 lb BMI Bqfazgzent68.64 kg (more content not included)... Normal [facility] Tobacco Screening.on 022 Fall risk assessment a) No falls within the last year [facility] y 250 DO Work Phone: Tobacco use status [facility] a) Yes [facility] y 250 DO Work Phone: Tobacco Screening. Yes [facility] y 250 DO Work Phone: CNPNon 07-04-2021 [facility] Telephone (SPNSMN) DOSSASHOK MONROY ([id number]) 1965 M Date Time Provider Department 07/04/21 MEGAN INTERIANO [facility] During your visit today, we recorded the following information about you: Charbel Hill RN 07/04/2021 11:40 AM Signed Neuro SPINE CARE COORDINATION QUICK NOTE Called patient to discuss scheduling for surgery. States he is not ready to schedule but will call back when he is. Also advised it best for recovery to work on quitting smoking. Allergies As of Date: 07/04/2021 (No Known Allergies) Date Reviewed: 06/06/2021 Reviewed by: Chetna Ozuna LPN - Fully Assessed Reason for Visit: Schedule Surgery [1330] Prescriptions as of 07/04/2021 - acetaminophen-codeine (TYLENOL-COD #3) 300-30 mg per tablet Take 1 tablet by mouth twice daily as needed. - aspirin, enteric coated (ASPIRIN, ENTERIC COATED) 81 mg EC tablet Take by mouth q 24 HR. - atorvastatin (LIPITOR) 80 mg tablet Take 80 mg by mouth once daily. - divalproex DR (DEPAKOTE) 125 mg EC tablet Take 125 mg by mouth once daily. - lisinopril-hydroCHLOROt hiazide (PRINZIDE,ZESTORETIC) 20-12.5 mg per tablet Take 1 tablet by mouth once daily. - metoprolol trujillo-hydrochlorothiaz 25-12.5 mg Tb24 Take by mouth. - nitroglycerin sublingual (NITROQUICK) 0.4 mg SL tablet USE 1 UNDER THE TONGUE EVERY 5 MIN FOR CHEST PAIN. MAX 3 TABS IN 15 MIN. CALL 911 IF PAIN PERSISTS. - BRILINTA 90 mg tablet Take 90 mg by mouth twice daily. Problem List As Of Date: 07/04/2021 (None) Encounter Status:Closed by [place] [facility] ) ASHOK DOSS ([id number]) 1965 M Date Time Provider Department 06/06/21 10:10 AM MEGAN INTERIANO SPNSMN During your visit today, we recorded the following information about you: Pulse Respiration Blood pressure Weight 62/minute 16/minute 148/71 116.8 kg Height 1.88 m Megan Interiano MD 06/15/2021 4:22 PM Signed SPINE SURGERY NEW PATIENT PCP: No primary care provider on file. REFERRING PROVIDER: Ashia Bermeo APRN. CNP SUBJECTIVE HISTORY OF PRESENT ILLNESS: Ashok Doss is a 55 year old male presenting alone. CHIEF COMPLAINT: mid back pain, LE weakness Previously seen by Ashia Bermeo CNP regarding subjective weakness in the arms and legs. Hx of previous lumbar laminectomy approx. 20 years ago in [place]. Did well post-op with resolution of sciatica. Has had chronic low back pain. Over the last 6 months he describes episodes of his legs feeling like rubber . Would occur randomly. Over the last 3 months he's started to experience this in the arms as well. 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 Neck pain as well. Denies any radiating pain into the arms or legs. No numbness in the hands, or declining dexterity. He does feel unsteady on his feet. No falls. No bowel or bladder changes. ? DURATION OF SYMPTOMS: Greater Than 6 Months PAIN EVALUATION 06/06/2021 1013 Pain Level: 4 Pain Location: ? neck and shoulders Description: Dull;Aching Duration Amount of Time: 5 Duration Units: Months Frequency: Continuous Intervention/Comfort measure: Medication Comments: pain management Pain Radiation: neck and back pain Aggravating Factors: overhead activities Alleviating Factors: None Pain Ratio: NA DERMATOMAL DISTRIBUTION: Not applicable AMBULATORY STATUS: Independent Community Distances ANTIPLATELET OR ANTICOAGULATION STATUS: No PREVIOUS CONSERVATIVE TREATMENTS: -Medrol dose pack -NSAIDS- intolerant on Brilinta -Codeine - PRN -Tizanidine PREVIOUS SPINAL SURGERY: SURGERY #1: lumbar laminectomy about 20 years ago in [place] There is no problem list on file for this patient. No past medical history on file. No past surgical history on file. No family history on file. Social History Tobacco Use - Smoking status: Not on file - Smokeless tobacco: Not on file Substance Use Topics - Alcohol use: Not on file - Drug use: Not on file ALLERGIES No Known Allergies MEDICATIONS: acetaminophen-codeine (TYLENOL-COD #3) 300-30 mg per tablet Take 1 tablet by mouth twice daily as needed. aspirin, enteric coated (ASPIRIN, ENTERIC COATED) 81 mg EC tablet Take by mouth q 24 HR. atorvastatin (LIPITOR) 80 mg tablet Take 80 mg by mouth once daily. divalproex DR (DEPAKOTE) 125 mg EC tablet Take 125 mg by mouth once daily. lisinopril-hydroCHLOROt hiazide (PRINZIDE,ZESTORETIC) 20-12.5 mg per tablet Take 1 tablet by mouth once daily. metoprolol trujillo-hydrochlorothiaz 25-12.5 mg Tb24 Take by mouth. nitroglycerin sublingual (NITROQUICK) 0.4 mg SL tablet USE 1 UNDER THE TONGUE EVERY 5 MIN FOR CHEST PAIN. MAX 3 TABS IN 15 MIN. CALL 911 IF PAIN PERSISTS. BRILINTA 90 mg tablet Take 90 mg by mouth twice daily. REVIEW OF SYSTEMS: GENERAL: No weight loss or malaise MUSCULOSKELETAL: See HPI NEURO: No history of headaches, syncope, paralysis, seizures or tremors Patient Entered Questionnaires Spine Questions 04/17/2021 06/04/2021 Pain Location: Upper back/torso Upper back/torso Pain Duration: More than 5 years 6 months - 1 year Pain over last 6 months: At least half the days in the past 6 months At least half the days in the past 6 months Symptoms from neck/cervical spine: Yes Yes Employment Status: Working now Working now Involved in law suit/legal claim: No No Neck Questionnaires 04/17/2021 06/04/2021 Benzel Modified FRANK Score 15 (A lower score indicates increased pain and issues.) 16 (A lower score indicates increased pain and issues.) PROMIS Score Percentiles Physical Health 04/17/2021 06/04/2021 Physical Function Percentile 21* 21* Sleep Percentile 27* 27* Fatigue Percentile 24* 14 Pain Interference Percentile 12 12 PROMIS SOCIAL ROLE SCORE 04/17/2021 06/04/2021 Social Role Satisfaction Percentile 14 14 PROMIS Global Health Scale 04/17/2021 Physical Health Percentile 15 Mental Health Percentile 63 Percentiles provide an indication of how the patient's score ranks in relation to the general population. Higher percentile rankings indicate better function/quality of life. 50th percentile is the average of the general population and indicates half of respondents had a worse score. Depression Screening: PHQ-9 04/17/2021 06/04/2021 Score 8 3 PHQ-9 Self-harm Question 04/17/2021 06/04/2021 Thoughts that you would be better off , or of hurting yourself in some way 0 0 PHQ-9 Self-Scanlon (more content not included)... Normal [facility] Office Visit (Cardiology)on 05-26-2021 Follow-up visit Diagnoses/Problems Assessed CAD (coronary atherosclerotic disease) (414.00) (I25.10) Hypertension (401.9) (I10) History of PTCA (V45.82) (Z98.61) Current every day smoker (305.1) (F17.200) 1 ppd Hyperlipemia (272.4) (E78.5) History of ST elevation myocardial infarction (STEMI) (412) (I25.2) Class 1 obesity with body mass index (BMI) of 33.0 to 33.9 in adult (278.00,V85.33) (E66.9,Z68.33) Orders Class 1 obesity with body mass index (BMI) of 33.0 to 33.9 in adult Healthy Weight Tips; Status:Complete - Retrospective Authorization; Done: 26May2021 SocHx: Current every day smoker You need to quit smoking.; Status:Complete - Retrospective Authorization; Done: 26May2021 Tobacco Use Screening; Status:Complete; Done: 26May2021 You need to stop smoking. Though it is not easy, more than half of all adult smokers have quit. We encourage you to write down all the reasons you should quit smoking and set a quit date for yourself. Ask us how we can help. You may also call 4-581-LUMZNOW for free resources and assistance.; Status:Complete - Retrospective Authorization; Done: 26May2021 Tobacco Use Screening; Status:Complete; Done: 26May2021 Patient Instructions By signing my name below, Silvana Fleming LPN, Scribe, attest that this documentation has been prepared under the direction and in the presence of Dr. Leonid Figueredo MD. All medical record entries made by the Lawanda were at my direction and personally dictated by me. I have reviewed the chart and agree that the record accurately reflects my personal performance of the history, physical exam, discussion and plan. Please bring all medicines, vitamins, and herbal supplements with you when you come to the office. Prescriptions will not be filled unless you are compliant with your follow up appointments or have a follow up appointment scheduled as per instruction of your physician. Refills should be requested at the time of your visit. follow up in October. Chief Complaint ASHOK DOSS is being seen for a 6 month follow-up of. History of Present Illness Patient is seen by me for the first time. 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 He was taken to [place] where he had a coronary intervention and did well. Since that time he has been stable. He describes rare episodes of chest discomfort that occur about once a week. There is no rhyme or reason to these episodes and actually typically occur at rest and not with aerobically strenuous activity. He is aerobically active and denies any such symptomatology under the circumstances. Because of this I suspect his symptoms may actually be noncardiac Review of his medical therapy demonstrates that his hypertension and hyperlipidemia are adequately treated. He continues to smoke and he was counseled in this regard. He is interested in having a low back injection and I will confer with interventional cardiology to determine if his antiplatelet therapy can be interrupted. He also states he wishes to undergo a major cervical spine surgical procedure in the fall. I suggested that he undergo stress testing at the end of the summer in anticipation of that surgery in the fall. Because of this we will reconvene in October and proceed accordingly. In the meantime he was encouraged to work on smoking cessation as well as diet and we advocated the merits of lifestyle modification and exercise. Current Meds Medication NameInstruction Acetaminophen 325 MG Oral TabletTAKE 1 TO 2 TABLETS EVERY 6 HOURS NEEDED. Aspirin EC 81 MG Oral Tablet Delayed ReleaseTAKE 1 TABLET DAILY. Atorvastatin Calcium 80 MG Oral TabletTAKE 1 TABLET DAILY. Brilinta 90 MG Oral TabletTAKE 1 TABLET TWICE DAILY. Lisinopril-hydroCHLOROt hiazide 20-12.5 MG Oral TabletTAKE 1 TABLET DAILY. Metoprolol Tartrate 25 MG Oral TabletTAKE 1 TABLET TWICE DAILY. Nitroglycerin 0.4 MG Sublingual Tablet SublingualDISSOLVE 1 TABLET UNDER THE TONGUE EVERY 5 MINUTES NEEDED FOR CHEST PAIN. MAX OF 3 TABLETS IN 15 MINUTES. CALL 911 IF PAIN PERSISTS. Patient did not bring medications list or bottles. Updated verbally with patient. Allergies Medication No Known Drug Allergies Recorded By: Shelley Godoy; 12/26/2020 11:02:18 AM Social History Problems Current every day smoker (305.1) (F17.200) 1 ppd Daily caffeine consumption, 2-3 servings a day No alcohol use No illicit drug use Review of Systems Constitutional: not feeling tired. Eyes: no eyesight problems. ENT: no hearing loss and no nosebleeds. Cardiovascular: no intermittent leg claudication and as noted in HPI. Respiratory: no chronic cough and no shortness of breath. Gastrointestinal: no change in bowel habits and no blood in stools. Genitourinary: no urinary frequency and no hematuria. Skin: no skin rashes. Neurological: no seizures and no frequent falls. Psychiatric: no depression and not suicidal. All other systems have been (more content not included)... Normal [facility] Tobacco Screening.on 022 Adult depression screening assessment No [facility] [employer] 600 DO Work Phone: Heart Rate Regular [facility] [employer] 600 DO Work Phone: Tobacco use status CPHS a) Yes [facility] [employer] 600 DO Work Phone: Tobacco Screening. Yes [facility] [employer] 600 DO Work Phone: CNPNon 05-17-2021 [facility] Telephone (NIQ) ASHOK DOSS ([id number]) 1965 M Date Time Provider Department 05/17/21 ASHIA BERMEO During your visit today, we recorded the following information about you: Liset Lazcano [employer]ic [employer] 05/17/2021 12:43 PM Addendum .Received the following record(s) via fax. -XR Foreign Body Eye, MRI Cspine wo Date 05/05/21 Record(s) scanned into pt's chart. Ashia Bermeo APRN.PAPER [employer] 05/17/2021 3:18 PM Signed Awaiting CD copy of imaging. Ashia Bermeo APRN.PAPER [employer] Allergies As of Date: 05/17/2021 (No Known Allergies) Date Reviewed: 04/24/2021 Reviewed by: Vasile Wilson LPN - Fully Assessed Reason for Visit: Results [95] Prescriptions as of 05/17/2021 - acetaminophen-codeine (TYLENOL-COD #3) 300-30 mg per tablet Take 1 tablet by mouth twice daily as needed. - aspirin, enteric coated (ASPIRIN, ENTERIC COATED) 81 mg EC tablet Take by mouth q 24 HR. - atorvastatin (LIPITOR) 80 mg tablet Take 80 mg by mouth once daily. - divalproex DR (DEPAKOTE) 125 mg EC tablet Take 125 mg by mouth once daily. - lisinopril-hydroCHLOROt hiazide (PRINZIDE,ZESTORETIC) 20-12.5 mg per tablet Take 1 tablet by mouth once daily. - metoprolol trujillo-hydrochlorothiaz 25-12.5 mg Tb24 Take by mouth. - nitroglycerin sublingual (NITROQUICK) 0.4 mg SL tablet USE 1 UNDER THE TONGUE EVERY 5 MIN FOR CHEST PAIN. MAX 3 TABS IN 15 MIN. CALL 911 IF PAIN PERSISTS. - BRILINTA 90 mg tablet Take 90 mg by mouth twice daily. Problem List As Of Date: 05/17/2021 (None) Encounter Status:Closed by ASHIA BERMEO on 05/17/21 [facility] ([id number]) 1965 M Date Time Provider Department 05/04/21 ASHIA BERMEO NIQ During your visit today, we recorded the following information about you: Liset Lazcano [employer]ic [employer] 05/04/2021 11:44 AM Signed Lulu from [place] requesting an Orbit order. Pt is scheduled tomorrow for MRI. Fax - [facility] - [phone] Catherine Stuart RN 05/04/2021 12:16 PM Signed Neuro SPINE CARE COORDINATION QUICK NOTE MRI Cervical order faxed to provided number. Catherine Stuart RN [employer] [facility] 05/04/2021 1:41 PM Signed XR Eye Foreign Body order faxed to: Attn: Lulu Sent via RT Fax electronic transmission Allergies As of Date: 05/04/2021 (No Known Allergies) Date Reviewed: 04/24/2021 Reviewed by: Vasile Wilson LPN - Fully Assessed Reason for Visit: Orders [681] Prescriptions as of 05/04/2021 - acetaminophen-codeine (TYLENOL-COD #3) 300-30 mg per tablet Take 1 tablet by mouth twice daily as needed. - aspirin, enteric coated (ASPIRIN, ENTERIC COATED) 81 mg EC tablet Take by mouth q 24 HR. - atorvastatin (LIPITOR) 80 mg tablet Take 80 mg by mouth once daily. - divalproex DR (DEPAKOTE) 125 mg EC tablet Take 125 mg by mouth once daily. - lisinopril-hydroCHLOROt hiazide (PRINZIDE,ZESTORETIC) 20-12.5 mg per tablet Take 1 tablet by mouth once daily. - metoprolol trujillo-hydrochlorothiaz 25-12.5 mg Tb24 Take by mouth. - nitroglycerin sublingual (NITROQUICK) 0.4 mg SL tablet USE 1 UNDER THE TONGUE EVERY 5 MIN FOR CHEST PAIN. MAX 3 TABS IN 15 MIN. CALL 911 IF PAIN PERSISTS. - BRILINTA 90 mg tablet Take 90 mg by mouth twice daily. Problem List As Of Date: 05/04/2021 (None) Encounter Status:Closed by CATHERINE STUART on 05/04/21 [facility]OVon 04-24-2021 CNOV Office Visit (SPNSMN ) ASHOK DOSS ([id number]) 1965 M Date Time Provider Department 04/24/21 2:15 PM ASHIA BERMEO SPNSMN During your visit today, we recorded the following information about you: Pulse Respiration Blood pressure Weight 79/minute 18/minute 139/68 118.7 kg Height 1.88 m Ashia Bermeo APRN.PAPER [employer]E [employer]ADER 04/24/2021 3:14 PM Signed SPINE SURGERY OUTPATIENT CONSULT SERVICE DATE: 04/24/2021 PCP: No primary care provider on file. REFERRING PROVIDER: SELF Consult requested for an opinion regarding the evaluation and treatment of weakness. My final impression and recommendations will be communicated back to the requesting physician by way of the shared medical record or letter via US mail. SUBJECTIVE Ashok Doss is a 55 year old male presenting with spouse. CHIEF COMPLAINT: Mid back pain, Weakness HISTORY OF PRESENT ILLNESS Hx of lumbar laminectomy approx. 20 years ago in [place]. Did well post-op with resolution of sciatica. C/o mid back pain x4 months. Notes subjective weakness in bilateral lower extremities, feel like rubber per patient. Subjective arm weakness, no impaired dexterity. Notes balance instability, no falls. Denies any loss in bowel/bladder control. Conservative Management -Medrol dose pack -NSAIDS- intolerant on Brilinta -Codeine- PRN -Tizanidine PRECIPITATING EVENT: None DURATION OF SYMPTOMS: Greater Than 3 Months PAIN EVALUATION 04/24/2021 1421 Pain Level: 3 Pain Location: Back Description: Aching;Tingling Duration Amount of Time: 30 Duration Units: Years Frequency: Continuous Intervention/Comfort measure: Heat;Medication DERMATOMAL DISTRIBUTION: Not applicable AMBULATORY STATUS: Independent Community Distances ANTIPLATELET OR ANTICOAGULATION STATUS: Yes Previous [place] PREVIOUS SPINAL SURGERY: SURGERY #1: L5-S1 Laminectomy in [place] approx. 20 years ago There is no problem list on file for this patient. No past medical history on file. No past surgical history on file. No family history on file. Social History Tobacco Use - Smoking status: Not on file - Smokeless tobacco: Not on file Substance Use Topics - Alcohol use: Not on file - Drug use: Not on file ALLERGIES No Known Allergies MEDICATIONS: acetaminophen-codeine (TYLENOL-COD #3) 300-30 mg per tablet Take 1 tablet by mouth twice daily as needed. aspirin, enteric coated (ASPIRIN, ENTERIC COATED) 81 mg EC tablet Take by mouth q 24 HR. atorvastatin (LIPITOR) 80 mg tablet Take 80 mg by mouth once daily. divalproex DR (DEPAKOTE) 125 mg EC tablet Take 125 mg by mouth once daily. lisinopril-hydroCHLOROt hiazide (PRINZIDE,ZESTORETIC) 20-12.5 mg per tablet Take 1 tablet by mouth once daily. metoprolol trujillo-hydrochlorothiaz 25-12.5 mg Tb24 Take by mouth. nitroglycerin sublingual (NITROQUICK) 0.4 mg SL tablet USE 1 UNDER THE TONGUE EVERY 5 MIN FOR CHEST PAIN. MAX 3 TABS IN 15 MIN. CALL 911 IF PAIN PERSISTS. BRILINTA 90 mg tablet Take 90 mg by mouth twice daily. REVIEW OF SYSTEMS: PAIN ASSESSMENT: See HPI. GENERAL: Denies fever, chills malaise and weight loss. HEENT: No recent change in vision or hearing. CARDIOVASCULAR: Hypertension and previous [place] RESPIRATORY: Denies SOB, sputum production, and hemoptysis. GI: Denies GI ulcers, inflammatory disease, or liver disease. : Denies change in frequency or urgency, kidney disease, and burning with urination. MUSCULOSKELETAL: Positive for back pain SKIN: Denies rash or itching. PSYCHOLOGICAL: Not reviewed NEURO: Headaches ENDOCRINE: Denies diabetes, thyroid disease. HEMATOLOGY/LYMPHOLOGY: Denies cancer, bleeding or clotting disorders, anemia,and DVT's. ALLERGIC/IMMUNOLOGICAL: Denies risks for infection, or recent MRSA infections. Patient Entered Questionnaires Spine Questions 04/17/2021 Pain Location: Upper back/torso Pain Duration: More than 5 years Pain over last 6 months: At least half the days in the past 6 months Symptoms from neck/cervical spine: Yes Employment Status: Working now Involved in law suit/legal claim: No Neck Questionnaires 04/17/2021 Benzel Modified FRANK Score 15 (A lower score indicates increased pain and issues.) PROMIS Score Percentiles Physical Health 04/17/2021 Physical Function Percentile 21* Sleep Percentile 27* Fatigue Percentile 24* Pain Interference Percentile 12 PROMIS SOCIAL ROLE SCORE 04/17/2021 Social Role Satisfaction Percentile 14 PROMIS Global Health Scale 04/17/2021 Physical Health Percentile 15 Mental Health Percentile 63 Percentiles provide an indication of how the patient's score ranks in relation to the general population. Higher percentile rankings indicate better function/quality of life. 50th percentile is the average of the general population and indicates half of respondents had a worse score. Depression Screening: PHQ-9 04/17/2021 (more content not included)... Normal [facility] Office Visit (Cardiology)on 12-27-2020 Follow-up visit Orders CAD (coronary atherosclerotic disease) Changed: From Nitroglycerin 0.4 MG Sublingual Tablet Sublingual DISSOLVE 1 TABLET UNDER THE TONGUE NEEDED FOR CHEST PAIN To Nitroglycerin 0.4 MG Sublingual Tablet Sublingual DISSOLVE 1 TABLET UNDER THE TONGUE EVERY 5 MINUTES NEEDED FOR CHEST PAIN. MAX OF 3 TABLETS IN 15 MINUTES. CALL 911 IF PAIN PERSISTS Chief Complaint ASHOK DOSS is being seen for a cardiovascular evaluation . testing results. ASHOK DOSS is a 55 year old male that presents to the [facility] with his for follow-up on testing. He follows with his primary pillow filler Dr. Stacy and was added to my schedule today. He has a recent history of an [place] with cardiac catheterization 11/18/2020 with PCI and stenting of the distal mid RCA. Prior to his hospital follow-up visit he had 2 bouts of chest discomfort that required sublingual nitro therefore he was advised to undergo a treadmill stress test and echocardiogram prior to returning back to work. Test results were reviewed with Dr. Stacy as noted below and discussed at this office visit. He has requested return back to work and states that overall he feels he is doing much better he states that his energy and his endurance is returning. He has not yet started cardiac rehabilitation. He actually states that he has yet to check him to see if cardiac rehabilitation is possible at [facility] that is closest to his home. He currently denies any chest pain, chest pressure, chest tightness, palpitations, shortness of breath, lightheadedness or dizziness. He does request a refill on his sublingual nitro as noted above he had used it previously and states he carries it with him at all times and is afraid he is going to drop it when he pulls his keys out of his pocket and break the bottle. We will refill his sublingual nitro for him today. Testing reviewed 12/23/2020 echocardiogram; LVEF 60 to 65%. Normal RV size and function. Trivial MR, trivial TR, RVSP 32 mmHg. 12/23/2020 cardiac stress test; no exercise-induced chest discomfort or ST changes at 76% of MPHR. Assessment: 1. CAD; with acute inferior ST elevation W[place] requiring cardiac catheterization 11/18/2020 with PCI and stenting to the mid RCA. No recurrence of chest pain, chest pressure or chest tightness. He denies any recent use of sublingual nitro or ER visits. We will continue current medications. He has requested a refill on his sublingual nitro as he carries it with him daily. 2. Hypertension; well controlled with blood pressure in the office today 131/74. We will continue current medication 3. Obesity; we have discussed increased physical activity, along with consuming a low carbohydrate, low sugar and processed food diet, to aid in weight loss. Plan: 1. May return to work 2. Renew sublingual nitro 0.4 mg as needed 3. Follow-up with Dr. Stacy in the office in 3 months or sooner if needed Please excuse any errors in grammar or translation related to dictation, voice recognition software was used to prepare this document. Active Problems Problems CAD (coronary atherosclerotic disease) (414.00) (I25.10) Current every day smoker (305.1) (F17.200) Hypertension (401.9) (I10) Inferior myocardial infarction (410.40) (I21.19) Obesity (278.00) (E66.9) Recent ST elevation myocardial infarction (STEMI) Stented coronary artery (V45.82) (Z95.5) Surgical History Problems History of Ankle surgery History of Back surgery History of Carpal tunnel surgery History of Knee surgery History of Sinus surgery Current Meds Medication NameInstruction Albuterol Sulfate HFA 108 (90 Base) MCG/ACT Inhalation Aerosol SolutionINHALE 1 PUFF EVERY 4 HOURS NEEDED. Aspirin EC 81 MG Oral Tablet Delayed ReleaseTAKE 1 TABLET DAILY. Atorvastatin Calcium 80 MG Oral TabletTAKE 1 TABLET DAILY. Brilinta 90 MG Oral TabletTAKE 1 TABLET TWICE DAILY. Lisinopril-hydroCHLOROt hiazide 20-12.5 MG Oral TabletTAKE 1 TABLET DAILY. Metoprolol Tartrate 25 MG Oral TabletTAKE 1 TABLET TWICE DAILY. Nicotine 21 MG/24HR Transdermal Patch 24 HourAPPLY 1 PATCH DAILY DIRECTED. Nitroglycerin 0.4 MG Sublingual Tablet SublingualDISSOLVE 1 TABLET UNDER THE TONGUE NEEDED FOR CHEST PAIN. Pt did not bring med/list verbally reviewed. Allergies Medication No Known Drug Allergies Recorded By: Shelley Godoy; 12/26/2020 11:02:18 AM Family History Father Family history of angina pectoris (V17.49) (Z82.49) Family history of cardiac pacemaker (V17.49) (Z82.49) Family history of chronic obstructive pulmonary disease (V17.6) (Z82.5) Family history of congestive heart failure (V17.49) (Z82.49) Family history of Patent coronary artery Social History Problems Current every day smoker (305.1) (F17.200) Daily caffeine consumption, 2-3 servings a day No alcohol use No illicit drug use Review of Systems CONSTITUTIONAL: No weight loss, fever, chills, weakness or fatigue. SKIN: No rash or itching CARDIOVASCULAR:N (more content not included)... Normal [facility] Tobacco Screening.on 021 Fall risk assessment a) No falls within the last year [facility] [address] DO Work Phone: Tobacco use status [facility] a) Yes [facility] [address] DO Work Phone: Tobacco Screening. Yes [facility] [address] DO Work Phone: Cardiac Stress Teston 2020 Cardiac Stress Test [facility] [address], [address] [address] Exercise Stress Test Patient Name: ASHOK DOSS Ordering Physician: Sheridan Stacy MD Study Date: 12/23/2020 Reading Physician: [id number] Antony Pena MD, [facility] MRN/PID: [id number] Supervising Physician: Accession/Order#: [id number] Referring Physician: Sheridan STACY Date of : 1965 PCP: Gender: M Fellow: Height: 187.96 cm Nurse: Frida Dewey RN Weight: 119.75 kg Fund Raiser: N/A BSA: 2.45 m2 Technologist: BMI: 33.90 kg/m2 Additional Staff: Age: 55 years cc report to: Patient Location: [facility] cc report to: [id number] Rachel Stacy MD Study Type: Cardiac Stress Test Diagnosis/ICD: I25.10-Atherosclerotic heart disease; I21.19-ST elevation (STEMI) myocardial infarction involving other coronary artery of inferior wall Indication: CAD, INF. [place] Procedure/CPT: Stress Test Interpretation-[id number]; Stress Test Supervision-[id number] Falls Risk: Patient Performance: The patient exercised to stage II on a Antonio protocol for 4 minutes and 29 seconds, achieving 6.3 METS. The peak heart rate achieved was 126 bpm, which was 77 % of the age predicted target heart rate of 165 bpm. The resting blood pressure was 126/68 mmHg with a heart rate of 67 bpm. The patient's functional capacity was below average. The patient developed shortness of breath during the stress exam. The symptoms resolved with rest. The blood pressure response was normal. The test was terminated due to: dyspnea. Double Product (HR x BP): 192. Baseline ECG: Resting ECG showed normal sinus rhythm with normal tracing. Stress ECG: Stress ECG showed sinus tachycardia, with no abnormal findings. Stress Stage Data: + +---+- -----+-------+--------- --------+ HR Sys BP Strauss BP RPE + +---+- -----+-------+--------- --------+ Baseline Resting 67 126 68 + +---+- -----+-------+--------- --------+ Stage I 110 146 78 16=Hard + +---+- -----+-------+--------- --------+ Stage II 126 152 80 20=Very,very hard + +---+- -----+-------+--------- --------+ Recovery ECG: Recovery ECG showed sinus tachycardia and normal sinus rhythm, with no abnormal findings. The heart rate recovery was normal. + +---+----- -+-------+ HR Sys BP Strauss BP + +---+----- -+-------+ Recovery I 120 146 74 + +---+----- -+-------+ Recovery II 114 146 72 + +---+----- -+-------+ Recovery III 90 132 72 + +---+----- -+-------+ Recovery IV 81 124 72 + +---+----- -+-------+ Summary: 1. No exercise induced chest discomfort or ST changes at 76% of MPHR. Below average exercise capacity. 2. Non-diagnostic Stress Test. 3. The inadequate level of stress was achieved. [id number] Antony Pena MD, [facility] Electronically signed on 12/23/2020 at 5:13:30 PM Final Normal [facility] Cardiac Stress Test MP-No rth [facility] [address] [place] Work Phone: Echocardiogramon 12-23-[address] 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 PHYSICIAN INTERPRETATION: Left Ventricle: The left ventricular systolic function is normal, with an estimated ejection fraction of 60-65%. There are no regional wall motion abnormalities. The left ventricular cavity size is normal. The left ventricular septal wall thickness is normal. There is normal left ventricular posterior wall thickness. Spectral Doppler shows a normal pattern of left ventricular diastolic filling. Left Atrium: The left atrium is normal in size. Left atrial volume index is 11 ml/m2. Right Ventricle: The right ventricle is normal in size. There is normal right ventricular global systolic function. Normal RV size and function. Right Atrium: The right atrium is normal in size. Aortic Valve: The aortic valve is trileaflet. There is no evidence of aortic valve regurgitation. The peak instantaneous gradient of the aortic valve is 8.1 mmHg. The mean gradient of the aortic valve is 6.0 mmHg. Mitral Valve: The mitral valve is normal in structure. There is trace mitral valve regurgitation. Trivial mitral regurgitation. Tricuspid Valve: The tricuspid valve is structurally normal. There is trace tricuspid regurgitation. Trivial tricuspid regurgitation with estimated RVSP of 32 mmHg. Pulmonic Valve: The pulmonic valve is structurally normal. There is no indication of pulmonic valve regurgitation. Pericardium: There is no pericardial effusion noted. Aorta: The aortic root is normal. CONCLUSIONS: 1. The left ventricular systolic function is normal with a 60-65% estimated ejection fraction. 2. Normal RV size and function. 3. Left atrial volume index is 11 ml/m2. 4. Trivial mitral regurgitation. 5. Trivial tricuspid regurgitation with estimated RVSP of 32 mmHg. 6. No previous available for comparison. QUANTITATIVE DATA SUMMARY: 2D MEASUREMENTS: Normal Ranges: Ao Root d: 3.10 cm (2.0-3.7cm) LAs: 3.20 cm (2.7-4.0cm) RVIDd: 4.21 cm (0.9-3.6cm) IVSd: 0.83 cm (0.6-1.1cm) LVPWd: 0.71 cm (0.6-1.1cm) LVIDd: 4.96 cm (3.9-5.9cm) LVIDs: 2.76 cm LV Mass Index: 52.3 g/m2 LV % FS 44.4 % AORTA MEASUREMENTS: Normal Ranges: Asc Ao, d: 2.80 cm (2.1-3.4cm) LV SYSTOLIC FUNCTION BY 2D PLANIMETRY (MOD): Normal Ranges: EF-A4C View: 57.1 % (>55%) LV DIASTOLIC FUNCTION: Normal Ranges: MV Peak E: 0.90 m/s (0.7-1.2 m/s) MV Peak A: 0.99 m/s (0.42-0.7 m/s) E/A Ratio: 0.91 (1.0-2.2) MV lateral e' 0.11 m/s MV medial e' 0.10 m/s E/e' Ratio: 8.10 (<8.0) MITRAL VALVE: Normal Ranges: MV Vmax: 1.06 m/s (<1.3m/s) MV peak P.5 mmHg (<5mmHg) MV mean P.0 mmHg (<48mmHg) AORTIC VALVE: Normal Ranges: AoV Vmax: 1.42 m/s (<1.7m/s) AoV Peak P.1 mmHg (<20mmHg) AoV Mean P.0 mmHg (1.7-11.5mmHg) LVOT Max Poli: 1.03 m/s (<1.1m/s) AoV VTI: 36.30 cm (18-25cm) LVOT VTI: 22.70 cm LVOT Diameter: 2.10 cm (1.8-2.4cm) AoV Area, VTI: 2.17 cm2 (2.5-5.5cm2) AoV Area,Vmax: 2.51 cm2 (2.5-4.5cm2) AoV Dimensionless Index: 0.63 TRICUSPID VALVE/RVSP: Normal Ranges: Peak TR Velocity: 2.59 m/s RV Syst Pressure: 29.8 mmHg (< 30mmHg) PULMONIC VALVE: Normal Ranges: PV Max Poli: 0.8 m/s (0.6-0.9m/s) PV Max P.5 mmHg [id number] Antony Pena MD, FACC Electronically signed on 12/23/2020 at 11:56:24 AM Final Normal [facility] Echocardiography Please click on the link to view the study images Normal -[facility] [address] [place] Work Phone: Discharge Planning [id number] 0 11-20-2020 Discharge Planning Note2 Discharge Planning: Discharge Barriersnone Planned Disposition[facility] 20no PCP/Next Provider Follow Up Scheduledyes Anticipated Discharge [id number] Discharge Planning 11/20/20 tcc NOTE: ROUNDED WITH NURSING, PT ADMITTED FOR NSTEMI, STARTED ON BRILINTA. ADDED SHOTBLASTER REFERRAL TO FOLLOW OUTPT . PT TO BE DISCHARGED WITH PRESCRIPTION FOR BRILINTA. DISCOUNT BRILINTA CARD PROVIDED TO NURSING WITH [facility] . PT TO BE DISCHARGED HOME ON THIS DATE. NO FURTHER NEEDS IDENTIFIED. NURSING AM-PAC 24, PLAN IS HOME WITH FAMILY. ANJELICA CHAPA RN TCC Assessment: Discharge Planning Assessment [id number] Discharge Documentation: Discharge/Transfer Date/[id number] 14:21 Discharged Accompanied Byspouse Discharge Modeambulatory Transportation Methodprivate car Valuables/Medications/B elongings Returnedyes Final DispositionHome Electronic Signatures: Jeb Anjelica (HOD CARRIER) (Signed 20-Nov-2020 13:02) Authored: Discharge Planning, Assessment Madhavi Moore (RN) (Signed 20-Nov-2020 14:21) Authored: Discharge Planning, Discharge Documentation Last Updated: 20-Nov-2020 14:21 by Madhavi Moore (RN) Normal [facility] Discharge [id number] Discharge Profile2 Discharge Orders: Anticipated Discharge Date: Anticipated Discharge [id number] Anticipated Discharge Time12:18 Problem List: Additional Dx: Nicotine dependence: Catalog Name: Nicotine dependence, unspecified, uncomplicated Acute ST elevation myocardial infarction (STEMI) due to occlusion of mid portion of right coronary a: Catalog Name: ST elevation (STEMI) myocardial infarction involving right coronary artery Hospital Providers: Provider RoleProvider Name Rachel Rajan Ashok DNAR: DNAR Status: none Hospital Course (Home Care/Gold Form): Hospital Course: Hospital Course: include significant abnormal lab values Patient presented with acute inferior ST segment elevation myocardial infarction. Underwent emergent coronary angiography with PCI and stenting of the totally occluded distal mid RCA with excellent angiographic results. Synergy drug-eluting stent was used. Stent size was 3.5 x 16 mm. LV ejection fraction was normal. Nonflow limiting disease 20 to 30% of the left system, 50% smooth mid LAD stenosis 20% proximal RCA disease. Unremarkable postprocedure course, in the cardiac catheterization laboratory patient had transient bradycardia and nonsustained ventricular tachycardia. Patient is feeling well, hemodynamics are stable, lungs are clear heart sounds are regular without murmur rub or gallop abdomen is nontender right groin is soft and nontender distal pulses are symmetric and palpable neurologically he is alert oriented x3 grossly nonfocal. I discussed with him post PCI care, I request that he stay off work for 4 weeks. He needs dual antiplatelet therapy, significance of which was discussed, the potential side effect of Brilinta i.e. shortness of breath was discussed, patient understands that he should not stop the medication without getting a substitute which would be clopidogrel starting with a 600 mg load. He lives about an hour away, and will be seeking a pillow filler closer to home, but will be seen at [facility] with me within 1 week to go over additional questions that may arise. He says that he will need some paperwork filled out as well. Nicotine cessation was discussed, and encouraged. Discharge medications will include aspirin Brilinta 90 mg twice daily atorvastatin 80 mg daily, metoprolol tartrate 25 mg p.o. twice daily, Protonix 40 mg daily for about 4 to 6 weeks, sublingual nitroglycerin as needed and a NicoDerm patch. Discharge time Provider FINAL REVIEW of Orders: Final Review: Final Review of Medication Reconciliation and Orders Completedby Physician Reviewing ProviderRachel Stacy MD at 20-Nov-2020 12:27:53 Appointments: Follow-Up Appointment 01: Physician/Dept/ServiceP nacho call Dr. Stacy's office at [phone], patient should be seen within the next week. Call to Schedule in1 week Electronic Signatures: Rachel Stacy) (Signed 20-Nov-2020 12:27) Authored: Discharge Orders, Hospital Course (Home Care/Gold Form), Provider FINAL REVIEW of Orders, Appointments, Gold Form - Obstetrics Teacher Summary Last Updated: 20-Nov-2020 12:27 by Rachel Stacy) [facility] Order Reconciliationon 11-20 Order Reconciliation Page 1 Discharge Reconciliation Document Reconciliation Type: Discharge requested on behalf of Rachel Stacy (Physician) done by Rachel Stacy) Discharge - Reconciliation: 20-Nov-2020 12:34 by: Rachel Stacy) Current OrdersDateHOME MEDICATIONS AT DISCHARGE DateReconciliation Comment/ Additional Information Aspirin Chewable Tablet, ChewableDOSE = 81 mg Oral Daily 19-Nov-2020 12:19 aspirin 81 mg oral tablet, chewable 1 tab(s) orally once a day 20-Nov-2020 12:28 Aspirin Chewable is continued as aspirin 81 mg oral tablet, chewable Atorvastatin Tablet (LIPITOR)DOSE = 80 mg Oral At BedtimeClinician Notes: first dose tonight 17-Sep-2021 23:39 atorvastatin 80 mg oral tablet 1 tab(s) orally once (at bedtime) 20-Nov-2020 12:32 Prescription is created for atorvastatin 80 mg oral tablet Docusate 50 mg - Senna 8.6 mg Tablet (SENOKOT S)DOSE = 2 tablet(s) Oral 2 Times a Day 19-Nov-2020 11:49 Docusate 50 mg - Senna 8.6 mg is not required Heparin 25,000 units/ D5W 250 mL Infusion Solution (Low Intensity - ACS, Stroke)IntraVenous Admin Rate = 8 mL/hr DOSE Rate = 800 units/hrInfusion Rate Adjustments: If Heparin Assay is LESS than 0.1 INCREASE Infusion Rate by 300 18-Nov-2020 23:20 Heparin 25,000 units/ D5W 250 mL Infusion is not required Metoprolol Tartrate Tablet (LOPRESSOR)DOSE = 25 mg Oral 2 Times a Day 18-Nov-2020 23:39 metoprolol tartrate 25 mg oral tablet 1 tab(s) orally 2 times a day 20-Nov-2020 12:31 Prescription is created for metoprolol tartrate 25 mg oral tablet Morphine Injectable DOSE = 2 mg IntraVenous Push Every 4 Hours, PRN Chest Pain 18-Nov-2020 23:39 Morphine Injectable is not required Nicotine 21 mg/ 24 hour TransDermal Film, Extended Release (NICODERM)DOSE = 1 patch TransDermal Every 24 HoursNotes from Pharmacy: SHAHEED 18-Nov-2020 23:39 nicotine 21 mg/24 hr transdermal film, extended release 1 patch transdermal every 24 hours 20-Nov-2020 12:31 Prescription is created for nicotine 21 mg/24 hr transdermal film, extended release Nitroglycerin 50 mg/ D5W 250 mL Infusion Solution (TRIDIL)IntraVenous Initial Admin Rate = 1.5 mL/hrMAX DOSE Rate = 200 mcg/minTitration Goal 1: Mean arterial pressure between 60 and 70 mmHgBidirectional Titration Dose: 5 mcg/min Ev 18-Nov-2020 23:39 Nitroglycerin 50 mg/ D5W 250 mL Infusion is not required Pantoprazole Enteric Coated Tablet (PROTONIX)DOSE = 40 mg Oral Daily 18-Nov-2020 23:39 pantoprazole 40 mg oral delayed release tablet 1 tab(s) orally once a day 20-Nov-2020 12:31 Prescription is created for pantoprazole 40 mg oral delayed release tablet Sodium Chloride 0.9% Infusion IV Bag Volume = 1,000 mL Run at: 100 mL/hr IntraVenous 18-Nov-2020 23:39 Sodium Chloride 0.9% Infusion is not required Ticagrelor Maintenance Dose Tablet (BRILINTA)DOSE = 90 mg Oral 2 Times a DayClinician Notes: Administer first Maintenance dose 12 hours after the Loading dose, 2nd dose tonight 18-Nov-2020 23:39 ticagrelor 90 mg oral tablet 1 tab(s) orally 2 times a day 20-Nov-2020 12:30 Prescription is created for ticagrelor 90 mg oral tablet Home Medications Added During Discharge Reconciliation Nitrostat 0.4 mg sublingual tablet 1 tab(s) sublingually once a day All Active Home Medications at time of Discharge Reconciliation: 20-Nov-2020 12:34 aspirin 81 mg oral tablet, chewable 1 tab(s) orally once a day atorvastatin 80 mg oral tablet 1 tab(s) orally once (at bedtime) metoprolol tartrate 25 mg oral tablet 1 tab(s) orally 2 times a day nicotine 21 mg/24 hr transdermal film, extended release 1 patch transdermal every 24 hours Nitrostat 0.4 mg sublingual tablet 1 tab(s) sublingually once a day pantoprazole 40 mg oral delayed release tablet 1 tab(s) orally once a day ticagrelor 90 mg oral tablet 1 tab(s) orally 2 times a day Normal [facility] APTTon 11-19-2020 APTT Canceled Normal [facility] Comment on above: Order Comment: TEST APTT WAS CANCELLED, 11/19/2020 03:59 DUPLICATE ORDER. Result Comment: THE APTT IS NO LONGER USED FOR MONITORING UNFRACTIONATED HEPARIN THERAPY. FOR MONITORING HEPARIN THERAPY, USE THE HEPARIN ASSAY. Performed By: #### A PTT ####[facility] [place], [place] [id number] aPTT Coag (Bld) [Time] 28 s Normal 25 - 35 [facility] Comment on above: Result Comment: THE APTT IS NO LONGER USED FOR MONITORING UNFRACTIONATED HEPARIN THERAPY. FOR MONITORING HEPARIN THERAPY, USE THE HEPARIN ASSAY. Performed By: #### A PTT #### [address] [id number] BASIC METABOLIC PANELon 11-02 Anion gap [Moles/Vol] 12 mmol/L Normal 10 - 20 [facility] Comment on above: Performed By: #### B MP #### [address] [id number] Calcium [Mass/Vol] 8.4 mg/dL Low 8.6 - 10.3 [facility] Comment on above: Performed By: #### B MP #### [address] [id number] Chloride [Moles/Vol] 109 mmol/L High 98 - 107 [facility] Comment on above: Performed By: #### B MP #### [address] [id number] Creatinine [Mass/Vol] 0.83 mg/dL Normal 0.50 - 1.30 [facility] Comment on above: Performed By: #### B MP #### [address] [id number] GFR- AM. >60 Normal >60 [facility] Comment on above: Result Comment: CALC ULATIONS OF ESTIMATED GFR ARE PERFORMED USING THE MDRD STUDY EQUATION FOR THE IDMS-TRACEABLE CREATININE METHODS. CLIN CHEM 2007;53:766-72 Performed By: #### B MP #### [address] [id number] GFR-NON AM. >60 Normal >60 [facility] Comment on above: Performed By: #### B MP #### [address] [id number] Glucose [Mass/Vol] 115 mg/dL High 74 - 99 [facility] Comment on above: Performed By: #### B MP #### [address] [id number] HCO3 (Bld) [Moles/Vol] 23 mmol/L Normal 21 - 32 [facility] Comment on above: Performed By: #### B MP #### [address] [id number] Potassium [Moles/Vol] 3.8 mmol/L Normal 3.5 - 5.3 [facility] Comment on above: Performed By: #### B MP #### [address] [id number] Sodium [Moles/Vol] 140 mmol/L Normal 136 - 145 [facility] Comment on above: Performed By: #### B MP #### [address] [id number] Urea nitrogen [Mass/Vol] 20 mg/dL Normal 6 - 23 [facility] Comment on above: Performed By: #### B MP #### [address] [id number] CBCon 11-19-2020 Erythrocyte distribution width (RBC) [Ratio] 13.3 % Normal 11.5 - 14.5 [facility] Comment on above: Performed By: #### C BC ####[facility] [place], [place] [id number] Hematocrit (Bld) [Volume fraction] 41.2 % Normal 41.0 - 52.0 [facility] Comment on above: Performed By: #### C BC ####[facility] [place], [place] [id number] Hemoglobin (Bld) [Mass/Vol] 13.5 g/dL Normal 13.5 - 17.5 [facility] Comment on above: Performed By: #### C BC ####[facility] [place], [place] [id number] MCHC (RBC) [Mass/Vol] 32.8 g/dL Normal 32.0 - 36.0 [facility] Comment on above: Performed By: #### C BC ####[facility] [place], [place] [id number] MCV (RBC) [Entitic vol] 93 fL Normal 80 - 100 [facility] Comment on above: Performed By: #### C BC ####[facility] [place], [place] [id number] Platelets (Bld) [#/Vol] 333 10*3/uL Normal 150 - 450 [facility] Comment on above: Performed By: #### C BC ####[facility] [place], [place] [id number] RBC 4.42 x10E12/L Low 4.50 - 5.90 [facility] Comment on above: Performed By: #### C BC ####[facility] [place], [place] [id number] WBC (Bld) [#/Vol] 22.9 10*3/uL High 4.4 - 11.3 [facility] Comment on above: Performed By: #### C BC ####[facility] [place], [place] [id number] Consult-Critical Careon 11-02 Consult-Critical Care Service: Service: Critical Care Consult: Consult requested by (Attending Name): Rachel Stacy Reason: ICU MANAGEMENT History of Present Illness: Admission Reason: Inferior Wall STEMI HPI: ASHOK DOSS is a 55 year old Male Pmhx HTN and active smoker Presented to [facility] ED via [place] d/t Chest pain. Described it as crushing mid sternal pain with radiation to the Left arm. He went to [facility] Last week d/t CP and had respiratory complaints and was sent home and was told he had bronchitis and CP could be 2/2 to. He states he had CP before but never like this, he associated complaints with diaphoresis, presyncopal x2 and weakness. No history of [place] before but he is an active pack a day smoker. Denies N/V/ Diarrhea and abdominal pain. He denies wheezing, Palpations but states he was short of breath at that moment. He has Strong Family hx of CAD. EKG in the ED per report showed ST Elevation in Lead 2, 3 and AVf with reciprocal changes To leads I, aVL, V1 V2. Patient received aspirin Brilinta IV heparin and was immediately send to the cathlab. A code purple was called. Labs were remarkable WBC 21.9 and glucose was 113, troponin was negative. CXR was negative. Cardiac Catheterization with angiography showed total occlusion of the distal mid codominant RCA with aberrant origin, PCI-KAYLAH to mid RCA the 100% stenosis was reduced to 0% residual stenosis with ELIECER-3 flow and no dissection. There was mild disease 20% diffuse of the left system LVEF about 55% LVEDP 10 mmHg. Cannot exclude RV infarction. Patient is being boarded in the PACU d/t bed availability. He appears to be comfortable, he was c/o 3/10 CP/Discomfort but noted to have no EKG changes in the monitor, V/S currently stable HR 90's and SBP was 120mmhg. He is currently on RA with SPO2 >95%. Right groin site is w/o hematoma, drainage and redness. PMH: As above Surgical history: laminectomy, ankle surgery, carpal tunnel Family history: Father [place], CHF Mother: CAD Social History: Pack a day smoker, denies illicit drug use, occasional alcohol use ICU is consulted for critical care management for STEMI inferior wall s/p PCI-KAYLAH to Mid RCA Allergies: Allergy Status Unknown: Objective: Physical Exam by System: Constitutional: Well developed, awake/alert/oriented x3, no distress, alert and cooperative Eyes: PERRL, EOMI, clear sclera ENMT: mucous membranes moist, no apparent injury, no lesions seen Head/Neck: Neck supple, no apparent injury, thyroid without mass or tenderness, No JVD, trachea midline, no bruits Respiratory/Thorax: Patent airways, CTAB, normal breath sounds with good chest expansion, thorax symmetric Cardiovascular: Regular, rate and rhythm, no murmurs, 2+ equal pulses of the extremities, normal S 1and S 2 Gastrointestinal: protuberant Nondistended, soft, , +BS, no bruits Musculoskeletal: ROM intact, no joint swelling, normal strength Extremities: normal extremities, no cyanosis edema, contusions or wounds, no clubbing Neurological: alert and oriented x3, intact senses, motor, response and reflexes, normal strength Lymphatic: No significant lymphadenopathy Psychological: Appropriate mood and behavior Skin: Warm and dry, no lesions, no rashes Assessment: 55 year old M with Pmhx HTN and active smoker ICU is consulted for critical care management for STEMI involving inferior wall Post Cardiac Cath PCI and KAYLAH to mid RCA Assessment and Plan Neuro/psych: Active Smoker Q1 neuro check per ICU protocol CAM ICU score q-shift Sleep/wake cycle hygiene Smoking Cessation, nicotine patch offered and counselling was don e CV: STEMI inferior wall, Hx of HTN Troponin level in am Repeat EKG now and if there are CP complaints STAT EKG Brillanta, Statin, BB ordered Cardiology already on board Telemetry monitoring per ICU protocol Daily electrolytes monitoring PRN Morphine At the time of assessment he was c/o of CP 05/11, spoke to Dr Stacy and she was OK to give morphine and nitro drip if it gets worse just caution as RV infarction could possibly be involve and can drop the b/p Post Cath Care Pulm: Supplemental O2, keep SPO2 greater than 92%. Encourage use of Incentive Spirometry Renal/electrolytes/: Strict I's and O's and daily weights. Keep K >4 and Mag @ 2 GI/endocrine: Ok for PO Cardiac Diet Protonix for GI prophylaxis Heme/ID: Elevated WBC 2/2 reactive to [place] SCDs for DVT prophylaxis, Enoxaparin -pharmacological DVT measures -hold for now Msk/Integumentaty PT/OT Social/family/dispo: admit to ICU Code; Full *Plan discussed at length with bedside RN and Dr. Zaid Posey MD Consult Status: Consult Order ID: [id number] Attestation: Note Completion: I am a: Advanced Practice Provider Attending Only - Shared Visit with Advanced Practice ProviderThis is a shared visit. I have revi (more content not included)... Normal [facility] Daily Progress Note - Critic al Care-SICUon 11-19-2020 Daily Progress Note - Critical Care-SICU Service: Critical Care Service: ServiceSICU Subjective Data: ID Statement: ASHOK DOSS is a 55 year old Male who is Hospital Day # 2 and ICU Day #1. Patient was sitting up and eating, was chest pain free. He states he feels much better compared to yesterday. Denies Palpitations, SOB, N/V and abdominal pain. Telemetry without ST-T elevation. Remains on heparin drip Dr Stacy. Otherwise afebrile and SBP 150-170mmhg. Objective Data: Objective Information T PRBPSpO2 [id number]/7799% Date/Time11/19 1:309/18 17:41918 17:41918 17:41918 17:41 Range(37.1C - 37.1C ) (66 - 98 ) (12 - 28 ) (108 - 178 )/ (51 - 97 ) (94% - 100% ) As of 18-Nov-2020 21:05:00, patient is on 3 L/min of oxygen via room air. Highest temp of 37.1 C was recorded at 11/18 21:05 Pain reported at 11/19 7:30: 0 = None ---- Intake and Output ----- Mn/Dy/Year TimeIntakeOutshiprock-n[facility] centerbNet Nov 19, 2020 6:00 [id number] The Intake and Output Totals for the last 24 hours are: IntakeOutputNet [id number] Date: Weight/Scale Type: 18-Nov-2020 23:46336.7 kg Physical Exam by System: Neurological: alert and oriented x3, intact senses, motor, response and reflexes, normal strength Cardiovascular: Regular, rate and rhythm, no murmurs, 2+ equal pulses of the extremities, normal S 1and S 2 Respiratory/Thorax: Patent airways, CTAB, normal breath sounds with good chest expansion, thorax symmetric Gastrointestinal: protuberant Nondistended, soft, , +BS, no bruits Skin: Warm and dry, no lesions, no rashes Musculoskeletal: ROM intact, no joint swelling, normal strength Constitutional: Well developed, awake/alert/oriented x3, no distress, alert and cooperative Eyes: PERRL, EOMI, clear sclera ENMT: mucous membranes moist, no apparent injury, no lesions seen Head/Neck: Neck supple, no apparent injury, thyroid without mass or tenderness, No JVD, trachea midline, no bruits Extremities: normal extremities, no cyanosis edema, contusions or wounds, no clubbing Lymphatic: No significant lymphadenopathy Psychological: Appropriate mood and behavior Allergies: Allergies: No Known Allergies: Recent Lab Results: Results: CBC: 11/19/2020 05:23 \ Hgb / \ 13.5 / WBC Plt 22.9 H 333 / Hct \ / 41.2 \ RBC: 4.42 L MCV: 93 BMP: 11/19/2020 05:23 NA+ Cl- BUN / 140 109 H 20 / --------- Glucose ---- 115 H K+ HCO3- Creat \ 3.8 23 0.83 \ Calcium : 8.4 L Anion Gap : 12 CMP: 11/18/2020 19:17 NA+ Cl- BUN / 143 107 19 / --------- Glucose ---- 113 H K+ HCO3- Creat \ 3.8 28 1.12 \ \ T Bili / \ 0.3 / AST x ---- x ALT 15 x ---- x 19 / Alk P \ / 74 \ Calcium : 9.4 Anion Gap : 12 Albumin : 4.2 T Protein : 7.0 Coagulation: 11/19/2020 01:34 PT / Canceled / -------< INR < Canceled PTT\ 28 \ Heparin Assay: 0.2 Assessment and Plan: Daily Risk Screen: Does patient have a central lineno Does patient have an indwelling urinary catheterno Is the patient intubatedno Assessment/Plan: Assessment/Plan: 11/19/20 STEMI Inferior wall Hx of HTN Active smoker s/p PCI to amd KAYLAH to Mid RCA On low intensity heparin drip with down trending Trop level ON Dual Antiplatelet Brilinta, ASA, Statin (high dose), BB Cardiology is already following Smoking cessation counselling and currently on nicotine patch Code Status: Code StatusFull Code Attestation: Note Completion: I am a: Advanced Practice Provider Attending Only - Shared Visit with Advanced Practice ProviderThis is a shared visit. I have reviewed the Advanced Practice Providers encounter note, approve the Advanced Practice Providers documentation, and provide the following additional information from my personal encounter. Comments/ Additional Findings Agree with the nurse practitioner Leia Abbott history and physical, assessment, and plan of treatment. I personally discussed with her at the bedside L3 Electronic Signatures: Leia Stearns ([employer] GRADER) (Signed 19-Nov-2020 18:30) Authored: Service, Subjective Data, Objective Data, Assessment and Plan José Miguel Posey) (Signed 19-Nov-2020 22:22) Authored: Note Completion Last Updated: 19-Nov-2020 22:22 by José Miguel Posey) [facility] Daily Progress Note-Cardiolo gyon 11-19-2020 Daily Progress Note-Cardiology Service: Cardiology History of Present Illness: History Present Illness: HPI: Patient with multiple cardiac risk factors, acute inferior ST segment elevation myocardial infarction, underwent PCI and stenting of the totally occluded distal mid RCA with excellent angiographic results and ELIECER-3 distal flow. Later in the evening he did complain of some chest discomfort EKG did not show any new ST-T abnormalities, patient was placed on IV heparin, his chest discomfort subsided. He appears comfortable, laying flat in bed, speaking in full sentences. Telemetry overnight showed nonsustained VT, and EKG this morning shows no ST elevation, there are inferior Q waves. Patient's lungs are clear heart sounds are regular without murmur rub or gallop right groin is soft and nontender distal pulses are symmetric he can move all extremities and follow commands. Laboratory data reviewed. Assessment: 1. Acute coronary syndrome ST elevation inferior wall myocardial infarction 2. Preserved LV systolic function 3. Status post drug-eluting stent distal RCA 4. 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 Nicotine addiction 6. Strong family history of premature coronary artery disease Recommendations: 1. Dual antiplatelet therapy with aspirin and Brilinta 2. May wean heparin drip to off if troponin is trending downward 3. Decrease IV fluids to 50 cc an hour and stop with the current bag is done 4. Okay to transfer patient to telemetry bed. This patient it is to be noted that did not appear on any providers list today, there was great difficulty locating this patient, and patient was seen earlier, this is a delayed documentation, as of 5:15 PM, patient is not on the NOAC list. Critical care team also was not aware of patient's whereabouts. I have personally discussed this with Dr. Crisostomo. Subjective Data: ASHOK DOSS is a 55 year old Male who is Hospital Day # 2. Objective Data: Objective Information: T PRBPSpO2 [id number]/8297% Date/Time11/19 1: 13: 13: 13: 13:30 Range(37.1C - 37.1C ) (66 - 98 ) (12 - 28 ) (108 - 178 )/ (51 - 97 ) (94% - 100% ) As of 18-Nov-2020 21:05:00, patient is on 3 L/min of oxygen via room air. Highest temp of 37.1 C was recorded at 11/18 21:05 Pain reported at 11/19 7:30: 0 = None ---- Intake and Output ----- Mn/Dy/[facility]Int[facility]Out[facility] Nov 19, 2020 6:00 [id number] The Intake and Output Totals for the last 24 hours are: IntakeOutshiprock-n[facility] centerbNet [id number] Recent Lab Results: Results: CBC: 11/19/2020 05:23 \ Hgb / \ 13.5 / WBC Plt 22.9 H 333 / Hct \ / 41.2 \ RBC: 4.42 L MCV: 93 BMP: 11/19/2020 05:23 NA+ Cl- BUN / 140 109 H 20 / --------- Glucose ---- 115 H K+ HCO3- Creat \ 3.8 23 0.83 \ Calcium : 8.4 L Anion Gap : 12 CMP: 11/18/2020 19:17 NA+ Cl- BUN / 143 107 19 / --------- Glucose ---- 113 H K+ HCO3- Creat \ 3.8 28 1.12 \ \ T Bili / \ 0.3 / AST x ---- x ALT 15 x ---- x 19 / Alk P \ / 74 \ Calcium : 9.4 Anion Gap : 12 Albumin : 4.2 T Protein : 7.0 Coagulation: 11/19/2020 01:34 PT / Canceled / -------< INR < Canceled PTT\ 28 \ Heparin Assay: 0.2 Assessment and Plan: Comorbidities: Comorbidityobesity Obesityobesity (BMI 35-39.9) Code Status: Code StatusFull Code Electronic Signatures: Rachel Stacy) (Signed 19-Nov-2020 17:17) Authored: Service, History of Present Illness, Subjective Data, Objective Data, Assessment and Plan, Note Completion Last Updated: 19-Nov-2020 17:17 by Rachel Stacy) Normal [facility] HEPARIN ASSAY,UFHon 11-20-19 21 HEPARIN ASSAY,UFH 0.2 IU/mL Normal [facility] Comment on above: Result Comment: The therapeutic reference range for UFH may be either 0.3-0.6 IU/mL or 0.3-0.7 IU/mL based on the clinical setting for anticoagulant therapy and the associated nomogram used. For heparin dosing guidelines based on clinical scenario and Heparin Assay results, please refer to local Pharmacy and [facility] Guidelines for Anticoagulation therapy available on the [facility] intranet at: [email or web address]_Rene [email or web address]_Anticoagu.aspx Performed By: #### T ROP2 #### [address] [id number] HEPARIN ASSAY,UFH 0.2 IU/mL Normal [facility] Comment on above: Result Comment: The therapeutic reference range for UFH may be either 0.3-0.6 IU/mL or 0.3-0.7 IU/mL based on the clinical setting for anticoagulant therapy and the associated nomogram used. For heparin dosing guidelines based on clinical scenario and Heparin Assay results, please refer to local Pharmacy and the [facility] Guidelines for Anticoagulation therapy available on the [facility] intranet at: [email or web address]_Guid elines_for_Anticoagu.aspx Performed By: #### T ROP2 #### [address] [id number] HEPARIN ASSAY,UFH <0.1 Normal [facility] Comment on above: Result Comment: The therapeutic reference range for UFH may be either 0.3-0.6 IU/mL or 0.3-0.7 IU/mL based on the clinical setting for anticoagulant therapy and the associated nomogram used. For heparin dosing guidelines based on clinical scenario and Heparin Assay results, please refer to local Pharmacy and the [facility] Guidelines for Anticoagulation therapy available on the [facility] intranet at: [email or web address]/Pages/[facility] pitals_Guid elines_for_Anticoagu.aspx Performed By: #### T ROP2 #### [address] [id number] MAGNESIUMon 11-19-2020 Magnesium [Mass/Vol] 1.80 mg/dL Normal 1.60 - 2.40 [facility] Comment on above: Performed By: #### T ROP2 #### [address] [id number] Measurementson 11-19-2020 Measurements Weight: Weight in kg124.7 kilogram(s) Height: Height in cm188 centimeter(s) Belarusian Unit Translation (pounds, inches): Measurement Belarusian Unit Translations (Adult only): Weight in myg245.916 pound(s) Electronic Signatures: Maggie Muir (STAFF N) (Signed 18-Nov-2020 23:08) Authored: Weight, Height, Belarusian Unit Translation (pounds, inches) Last Updated: 18-Nov-2020 23:08 by Maggie Muir (STAFF N) Normal [facility] PT/INRon 11-19-2020 PROTHROMBIN TIME Canceled Normal [facility] Comment on above: Order Comment: TEST PT/INR WAS CANCELLED, 11/19/2020 01:33 Performed By: #### P TINR #### [address] [id number] PT, INR Canceled Normal [facility] Comment on above: Order Comment: TEST PT/INR WAS CANCELLED, 11/19/2020 01:33 Performed By: #### P TINR #### [address] [id number] PT Coag (PPP) [Time] 12.8 s Normal 10.1 - 13.3 [facility] Comment on above: Performed By: #### P TINR #### [address] [id number] PT, INR 1.1 Normal 0.9 - 1.1 [facility] Comment on above: Performed By: #### P TINR #### [address] [id number] TROPONIN Ion 11-19-2020 Troponin I.cardiac [Mass/Vol] 10.69 ng/mL Critically high 0.00 - 0.03 [facility] Comment on above: Order Comment: Hedy Bass RN , 11/19/2020 21:43 Result Comment: LESS THAN 0.04 NG/ML: NEGATIVE REPEAT TESTING IN THREE TO SIX HOURS IF CLINICALLY INDICATED. 0.04 - 0.5 NG/ML: CONSISTENT WITH POSSIBLE CARDIAC DAMAGE AND POSSIBLE INCREASED CLINICAL RISK. SERIAL MEASUREMENTS MAY HELP ASSESS EXTENT OF MYOCARDIAL DAMAGE. >0.5 NG/ML: CONSISTENT WITH CARDIAC DAMAGE, INCREASED CLINICAL RISK AND MYOCARDIAL INFARCTION. SERIAL MEASUREMENTS MAY HELP ASSESS EXTENT OF MYOCARDIAL DAMAGE. . Note: Troponin I testing is performed using different testing methodology at [facility] than at other [facility]. Direct result comparisons should only be made within the same method. Orly Bass RN , 11/19/2020 21:43 Performed By: #### T ROP2 #### [address] [id number] Troponin I.cardiac [Mass/Vol] 12.77 ng/mL Critically high 0.00 - 0.03 [facility] Comment on above: Order Comment: Hedy roberts- RB to Michaelle David, 11/19/2020 13:36 Result Comment: LESS THAN 0.04 NG/ML: NEGATIVE REPEAT TESTING IN THREE TO SIX HOURS IF CLINICALLY INDICATED. 0.04 - 0.5 NG/ML: CONSISTENT WITH POSSIBLE CARDIAC DAMAGE AND POSSIBLE INCREASED CLINICAL RISK. SERIAL MEASUREMENTS MAY HELP ASSESS EXTENT OF MYOCARDIAL DAMAGE. >0.5 NG/ML: CONSISTENT WITH CARDIAC DAMAGE, INCREASED CLINICAL RISK AND MYOCARDIAL INFARCTION. SERIAL MEASUREMENTS MAY HELP ASSESS EXTENT OF MYOCARDIAL DAMAGE. . Note: Troponin I testing is performed using different testing methodology at [facility] than at other [facility]. Direct result comparisons should only be made within the same method. Called- RB to Michaelle David, 11/19/2020 13:36 Performed By: #### T ROP2 #### [address] [id number] Troponin I.cardiac [Mass/Vol] 18.39 ng/mL Critically high 0.00 - 0.03 [facility] Comment on above: Order Comment: Hedy roberts- RB to Omar Muir, 11/19/2020 06:26 Result Comment: LESS THAN 0.04 NG/ML: NEGATIVE REPEAT TESTING IN THREE TO SIX HOURS IF CLINICALLY INDICATED. 0.04 - 0.5 NG/ML: CONSISTENT WITH POSSIBLE CARDIAC DAMAGE AND POSSIBLE INCREASED CLINICAL RISK. SERIAL MEASUREMENTS MAY HELP ASSESS EXTENT OF MYOCARDIAL DAMAGE. >0.5 NG/ML: CONSISTENT WITH CARDIAC DAMAGE, INCREASED CLINICAL RISK AND MYOCARDIAL INFARCTION. SERIAL MEASUREMENTS MAY HELP ASSESS EXTENT OF MYOCARDIAL DAMAGE. . Note: Troponin I testing is performed using different testing methodology at [facility] than at [facility]. Direct result comparisons should only be made within the same method. Called- RB to Omar Muir, 11/19/2020 06:26 Performed By: #### T ROP2 #### [address] [id number] TROPONIN I Canceled Normal [facility] Comment on above: Order Comment: Hedy roberts- RB to Shelia GOODMAN , 11/19/2020 21:43 Result Comment: LESS THAN 0.04 NG/ML: NEGATIVE REPEAT TESTING IN THREE TO SIX HOURS IF CLINICALLY INDICATED. 0.04 - 0.5 NG/ML: CONSISTENT WITH POSSIBLE CARDIAC DAMAGE AND POSSIBLE INCREASED CLINICAL RISK. SERIAL MEASUREMENTS MAY HELP ASSESS EXTENT OF MYOCARDIAL DAMAGE. >0.5 NG/ML: CONSISTENT WITH CARDIAC DAMAGE, INCREASED CLINICAL RISK AND MYOCARDIAL INFARCTION. SERIAL MEASUREMENTS MAY HELP ASSESS EXTENT OF MYOCARDIAL DAMAGE. . Note: Troponin I testing is performed using different testing methodology at [facility] than at other [facility]. Direct result comparisons should only be made within the same method. Performed By: #### T ROP2 #### [facility] [address] [place], [place] [id number] Troponin I.cardiac [Mass/Vol] 17.54 ng/mL Critically high 0.00 - 0.03 [facility] Comment on above: Order Comment: Hedy roberts- RB to Bandar Baez, 11/19/2020 02:22 Result Comment: LESS THAN 0.04 NG/ML: NEGATIVE REPEAT TESTING IN THREE TO SIX HOURS IF CLINICALLY INDICATED. 0.04 - 0.5 NG/ML: CONSISTENT WITH POSSIBLE CARDIAC DAMAGE AND POSSIBLE INCREASED CLINICAL RISK. SERIAL MEASUREMENTS MAY HELP ASSESS EXTENT OF MYOCARDIAL DAMAGE. >0.5 NG/ML: CONSISTENT WITH CARDIAC DAMAGE, INCREASED CLINICAL RISK AND MYOCARDIAL INFARCTION. SERIAL MEASUREMENTS MAY HELP ASSESS EXTENT OF MYOCARDIAL DAMAGE. . Note: Troponin I testing is performed using different testing methodology at [facility] than at other [facility]. Direct result comparisons should only be made within the same method. Called- RB to Bandar Cesar, 11/19/2020 02:22 Performed By: #### T ROP2 ####[facility] [place], [place] [id number] ACT-LOW RANGEon 11-18-2020 ACT-LOW RANGE 294 SECONDS High 89 - 169 [facility] Comment on above: Result Comment: Note new reference range as of 06/06/2018. Target ACT range will vary based on the patient population, clinical status, and surgical intervention occurring. Performed By: #### T ROP2 #### [facility] [address] [place], [place] [id number] ACT-LOW RANGE 207 SECONDS High 89 - 169 [facility] Comment on above: Result Comment: Note new reference range as of 06/06/2018. Target ACT range will vary based on the patient population, clinical status, and surgical intervention occurring. Performed By: #### T ROP2 #### [address] [id number] BNPon 11-18-2020 Natriuretic peptide B (Bld) [Mass/Vol] 33 pg/mL Normal 0 - 99 [facility] Comment on above: Result Comment: . <1 00 pg/mL - Heart failure unlikely 100-299 pg/mL - Intermediate probability of acute heart . failure exacerbation. Correlate with clinical . context and patient history. >=300 pg/mL - Heart Failure likely. Correlate with clinical . context and patient history. BNP testing is performed using different testing methodology at [facility] than at other [facility]. Direct result comparisons should only be made within the same method. Performed By: #### B MP #### [address] [id number] CBCon 11-18-2020 Erythrocyte distribution width (RBC) [Ratio] 13.3 % Normal 11.5 - 14.5 [facility] Comment on above: Performed By: #### C BC ####[facility] [place] [address] [id number] Hematocrit (Bld) [Volume fraction] 44.7 % Normal 41.0 - 52.0 [facility] Comment on above: Performed By: #### C BC ####[address] [id number] Hemoglobin (Bld) [Mass/Vol] 14.6 g/dL Normal 13.5 - 17.5 [facility] Comment on above: Performed By: #### C BC ####[address] [id number] MCHC (RBC) [Mass/Vol] 32.7 g/dL Normal 32.0 - 36.0 [facility] Comment on above: Performed By: #### C BC ####[address] [place], [place] [phone] MCV (RBC) [Entitic vol] 92 fL Normal 80 - 100 [facility] Comment on above: Performed By: #### C BC ####[facility] [place], [place] [id number] Platelets (Bld) [#/Vol] 395 10*3/uL Normal 150 - 450 [facility] Comment on above: Performed By: #### C BC ####[address] [place], [place] [id number] RBC 4.85 x10E12/L Normal 4.50 - 5.90 [facility] Comment on above: Performed By: #### C BC ####[address] [id number] WBC (Bld) [#/Vol] 21.9 10*3/uL High 4.4 - 11.3 [facility] Comment on above: Performed By: #### C BC ####[address] [id number] CHEST 1 VIEWon 11-18-2020 CHEST 1 VIEW STUDY: Chest Radiograph; 11/18/2020 7:22 PM. INDICATION: Concern for dissection, chest pain. COMPARISON: None Available. ACCESSION NUMBER(S): [id number] ORDERING CLINICIAN: JERRY BLAIR MD TECHNIQUE: Frontal chest was obtained at 1919 hours. FINDINGS: CARDIOMEDIASTINAL SILHOUETTE: Cardiomediastinal silhouette is normal in size and configuration. LUNGS: Lungs are clear. ABDOMEN: No remarkable upper abdominal findings. BONES: No acute osseous changes. IMPRESSION: No acute cardiopulmonary process seen. Signed by Racquel Griffiths MD Electronically signed by: RACQUEL GRIFFITHS MD Normal [facility] COMPREHENSIVE PANELon 2020 Albumin [Mass/Vol] 4.2 g/dL Normal 3.4 - 5.0 [facility] Comment on above: Performed By: #### C MP ####[address] [id number] ALP [Catalytic activity/Vol] 74 U/L Normal 33 - 120 [facility] Comment on above: Performed By: #### C MP ####[address] [id number] ALT [Catalytic activity/Vol] 19 U/L Normal 10 - 52 [facility] Comment on above: Result Comment: Carmelita ents treated with Sulfasalazine may generate falsely decreased results for ALT. Performed By: #### C MP ####[address] [id number] Anion gap [Moles/Vol] 12 mmol/L Normal 10 - 20 [facility] Comment on above: Performed By: #### C MP ####[address] [place], [place] [id number] AST [Catalytic activity/Vol] 15 U/L Normal 9 - 39 [facility] Comment on above: Performed By: #### C MP ####[address] [id number] Bilirubin [Mass/Vol] 0.3 mg/dL Normal 0.0 - 1.2 [facility] Comment on above: Performed By: #### C MP ####[address] [id number] Calcium [Mass/Vol] 9.4 mg/dL Normal 8.6 - 10.3 [facility] Comment on above: Performed By: #### C MP ####[address] [id number] Chloride [Moles/Vol] 107 mmol/L Normal 98 - 107 [facility] Comment on above: Performed By: #### C MP ####[address] [id number] Creatinine [Mass/Vol] 1.12 mg/dL Normal 0.50 - 1.30 [facility] Comment on above: Performed By: #### C MP ####[address] [id number] GFR- AM. >60 Normal >60 [facility] Comment on above: Result Comment: CALC ULATIONS OF ESTIMATED GFR ARE PERFORMED USING THE MDRD STUDY EQUATION FOR THE IDMS-TRACEABLE CREATININE METHODS. CLIN CHEM 2007;53:766-72 Performed By: #### C MP ####[address] [id number] GFR-NON AM. >60 Normal >60 [facility] Comment on above: Performed By: #### C MP ####[address] [id number] Glucose [Mass/Vol] 113 mg/dL High 74 - 99 [facility] Comment on above: Performed By: #### C MP ####[address] [id number] HCO3 (Bld) [Moles/Vol] 28 mmol/L Normal 21 - 32 [facility] Comment on above: Performed By: #### C MP ####[address] [id number] Potassium [Moles/Vol] 3.8 mmol/L Normal 3.5 - 5.3 [facility] Comment on above: Performed By: #### C MP ####[address] [id number] Protein [Mass/Vol] 7.0 g/dL Normal 6.4 - 8.2 [facility] Comment on above: Performed By: #### C MP ####[address] [id number] Sodium [Moles/Vol] 143 mmol/L Normal 136 - 145 [facility] Comment on above: Performed By: #### C MP ####[address] [id number] Urea nitrogen [Mass/Vol] 19 mg/dL Normal 6 - 23 [facility] Comment on above: Performed By: #### C MP ####[address] [id number] CORONAVIRUS 2019, SCREEN ASY MPTOMATICon 11-18-2020 SARS-CoV-2 (COVID-19) RNA ALLIE+probe Ql (Unsp spec) Not detected Normal Not Detected [facility] Comment on above: Result Comment: . This test has received FDA Emergency Use Authorization (EUA) and has been verified by [facility]. This test is only authorized for the duration of time that circumstances exist to justify the authorization of the emergency use of in vitro diagnostic tests for the detection of SARS-CoV-2 virus and/or diagnosis of COVID-19 infection under section 564(b)(1) of the Act, 21 U.S.C. 360bbb-3(b)(1), unless the authorization is terminated or revoked sooner. [facility] is certified under CLIA-88 as qualified to perform high complexity testing. Testing is performed in the [facility] laboratory located at [address] [place] [address]. SARS-CoV-2/Flu/RSV Multiplex Test: Fact sheet for providers: https://www.fda.gov/media/019129/download Fact sheet for patients: https://www.fda.gov/media/517457/download Performed By: #### C OVSC ####[address] [place], [place] [id number] Lab Specimen Source Nasal, Nasopharyngeal Normal [facility] Comment on above: Performed By: #### C OVSC ####[id number] [place], [place] [id number] Covid 19 Resultson 1 SARS-CoV-2 (COVID-19) RNA ALLIE+probe Ql (Unsp spec) NEGATIVE COVID-19 Test Coronaviruses are common world-wide and are the cause of many common colds. SARS-COV2 is a new coronavirus that began circulating worldwide in 2019 so we are calling it COVID-19. It has been estimated that four out of five patients with COVID-19 will recover at home without the need for medical attention. Symptoms of COVID-19 may include cough, fever, shortness of breath, loss of taste or smell and other flu-like symptoms including chills, sore muscles, sore throat, and headache. Severe illness is more common in older people and people with other health problems such as high blood pressure, obesity, and immune system problems. If the test is positive, you have COVID-19. You will be contacted by the ordering physicians office and instructed to remain on home isolation, in accordance with CDC guidelines. You may also be contacted by the [facility] to see if any of your close contacts may have been exposed to the virus and need to quarantine. If the test is negative, you likely do not have COVID-19 at this time, but you still may have a different illness that can spread to other people (like Influenza, or the Flu) and could still be at risk for getting COVID-19. We recommend that you stay away from other people to limit the spread of illness until your symptoms are improving and you are fever-free for 24 hours without the use of fever lowering medications such as acetaminophen or ibuprofen. No test is 100% accurate so if you are still concerned you may have COVID-19, talk to your doctor about the need to continue to stay away from others. Medicines Unless your provider told you not to use the following: Acetaminophen (Tylenol and others) is generally safe. Anti-inflammatory medications, such as Ibuprofen (Advil or Motrin) or Naproxen (Aleve) can also be used. Evve-psf-efskluf cough and cold medicines can be used according to the instructions on the package. Some ique-jvb-hqtiykc medicines also contain acetaminophen. Make sure you are not taking more than your recommended dose. For those not hospitalized, there is no specific treatment available for this illness. Antibiotics do not treat Coronaviruses. Follow-Up Follow up with your doctor by scheduling a virtual visit or consider follow-up at one of our urgent care fever clinics. If you are having difficulty breathing, or are very weak and having difficulty standing, this is a medical emergency. Call 911 or have someone take you to the nearest emergency room immediately. If possible, wear a facemask. Additional guidance from the CDC for patients who tested POSITIVE for COVID-19 How to isolate: Isolate yourself in a specific room at home and limit your contact with others. Use a separate bathroom from other members of the household, when possible. Leave home only to get essential medical care. Do not go to work, school or public areas. Avoid using public transportation, ride-sharing, or taxis. Restrict contact with pets and other animals. If you must care for your pet or be around animals while you are sick, wash your hands before and after your interaction and wear a facemask. Make sure that shared spaces in the home have good airflow, such as by an air conditioner or an opened window, weather permitting. Personal Hygiene Procedures: Wear a face mask when in the same room as other people or pets. If a face mask interferes with your breathing, others should wear a mask when sharing space with you. Frequent hand-washing: wash your hands with soap and water for at least 20 seconds. If soap and water are not available, use alcohol-based hand compensation and benefits manager. Avoid touching your eyes, nose, and mouth with unwashed hands. Household Hygiene Procedures: Avoid sharing personal household items such as dishes, glassware, cups, eating utensils, towels or bedding with other people or pets in your home. After use, these items should be washed with soap and hot water. Disinfect all high-touch surfaces every day with antibacterial cleaning solutions such as Lysol wipes, bleach, cleansers, etc. High-touch surfaces include tabletops, doorknobs, bathroom fixtures, toilets, phones, keyboards, tablets and bedside tables. Immediately clean any surfaces that may have blood, poop or body fluids on them, using antibacterial cleaning solutions such as Lysol wipes, bleach, cleansers, etc. If clothing or bedding come into contact with blood, poop or body fluids, they should be washed immediately. Follow the directions on the laundry detergent and clothing labels but hot water is recommended when possible. Stopping home isolation precautions: If possible, consult your doctor before stopping home isolation precautions. According to the CDC, you can discontinue home isolation precautions when you have met both of these criteria: Your fever and respiratory symptoms have been gone for 24 oliva (more content not included)... Normal [facility] PCI (Percutaneous Cardiac In tervention)on 11-18-2020 PCI (Percutaneous Cardiac Intervention) [facility], [facility] [address] [place] [address] Cardiovascular Catheterization Report Patient Name: Ashok Doss Performing Physician: [id number] Stacy MD Study Date: 11/18/2020 Verifying Physician: Sheridan Stacy MD MRN/PID: [id number] Customer Care Assistant: Accession/Order#: [id number] Referring Physician: [id number] oJsé Miguel Posey MD Date of : 1965 Referring Physician: Gender: M Referring Physician: [id number] Rachel Stacy MD Study: Left Heart Catheterization Indications: Ashok Doss is a 55 year old male who presents with hypertension and tobacco Use - current. Acute coronary syndrome <=24 hrs and Immediate PCI for acute STEMI , with a chest pain assessment of typical angina. Study performed as an emergency cath procedure. Medical History: Stress test performed: No. CTA performed: No. Agatston accessed: No. LVEF Assessed: Yes. Procedure Description: After infiltration with 2% Lidocaine, the right femoral artery was cannulated with a modified Seldinger technique. Subsequently a 6 Danish sheath was placed in the right femoral artery. Selective coronary catheterization was performed using a 5 Fr catheter(s) exchanged over a guide wire to cannulate the coronary arteries. A JL 4 tip catheter was used for left coronary injections. A JR GUIDE tip catheter was used for right coronary injections. Multiple injections of contrast were made into the left and right coronary arteries with angiograms recorded in multiple projections. Retrograde left heart catheterizion was accomplished with a 5 Fr. pigtail catheter. A single plane left ventriculogram was recorded in the 30 degree TODD projection. The contrast dose was 20 ml injected at 10 ml/sec. The catheter was then withdrawn across the aortic valve under continuous pressure monitoring and removed. After completion of the procedure, femoral artery angiography was performed. This demonstrated a common femoral artery puncture appropriate for closure. An Angio-Seal VIP 6F ([employer]) vascular closure device was placed per protocol. Coronary Angiography: The coronary circulation is co-dominant. 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 Right coronary arteries the culprit vessel. Proximal vessel has about 30% stenosis ostial RCA has about 20 to 30% stenosis distal mid RCA has 100% stenosis with dye staining. There is ELIECER 0 distal flow. Left main coronary artery arises from the left sinus of Valsalva. It trifurcates into the left anterior descending artery the ramus intermedius branch and the left circumflex artery. Left main coronary artery has 0% stenosis Left anterior descending artery has about 20% proximal 50% mid and less than 10% distal stenosis. First septal newspaper illustrator is moderately large and has 0% stenosis. First major diagonal branch measures about 2.25 to 2.5 mm and has about 20% stenosis. Ramus intermedius branch measures about 2.25 mm and has less than 20% stenosis Left circumflex arteries probably codominant, proximal vessel has 0% stenosis distal vessel has 0% stenosis first obtuse marginal branch measures about 2.25 mm second obtuse marginal branch measures about 2 mm, the left circumflex artery terminates in a moderately large third obtuse marginal branch. Left ventricular end-diastolic pressure is about 10 mmHg no systolic gradient across the aortic valve visually estimated left ventricular ejection fraction is about 55% no regional wall motion abnormality or mitral regurgitation is appreciated in the TODD view Selective right common femoral angiography showed that the access is in the common femoral artery above its bifurcation and at the right common femoral artery and its bifurcation appear angiographically normal. Left Ventriculography: All left ventricular regional wall segments contract normally. Coronary Interventions: Angiography reveals a 100% stenosis of the mid to distal right coronary artery. Pre-intervention ELIECER flow was 0. Percutaneous coronary intervention was performed within the mid to distal right coronary artery. The vessel was pre-dilated using a compliant balloon 2.5 mm x 12 mm at 8 to 10 ALESHA. Synergy 3.5 mm x 16 mm was advanced to the lesion and implanted. The stenosis was successfully reduced from 100% to 0%. Post-intervention ELIECER flow was 3. Additional Findings: 1. Codominant system 2. Diffuse coronary artery disease 20 to 30% in all territories 3. 100% distal mid RCA occlusion with ELIECER 0 antegrade flow, culprit vessel 4. Mid LAD with about 50% smooth stenosis after major diagonal branch 5. LVEDP 10 mmHg LVEF about 55%, no regional wall motion abnormality or mitral regurgitation appreciated in the TODD view 6. Patient underwent PCI and stenting of the distal mid RCA. 3.5 x 16 mm Synergy drug-eluting stent was used. Final results showed 0% residual stenosis with ELIECER-3 flow and no dissection 7. Angio-Seal hemostatic device was used. Complications (more content not included)... Normal [facility] Provider Note - ED v3on - Provider Note - ED v3 Provider Note: Chart Review: ED NOTES ED NOTES: HPI: The patient is a 55-year-old man with past medical history of hypertension who smokes who presents to the Emergency Department with a chief complaint of chest pain. Patient reports it is a substernal pressure-like chest pain that radiated to his left arm and eventually became sharper. Denies any numbness tingling or weakness and denies any shortness of breath. Reports he is never had a heart attack before. Medics arrived on scene and reported he was having a STEMI and he was given 324 of aspirin, 180 Brilinta, 4000 units of heparin as well as 50 mcg of fentanyl and 1/2 mg of Dilaudid. They are concerned about his blood pressure given the inferior STEMI so they did not provide him with nitro. Patient reports the pain is severe and persistent. Has never had some like this before. Denies any swelling his legs or history of DVT or PE or hemoptysis. PAST MEDICAL HISTORY: as per HPI ALLERGIES: Nursing notes and EMR reviewed. MEDICATIONS: Nursing notes and EMR reviewed. SOCIAL HISTORY: Smokes cigarettes. REVIEW OF SYSTEMS All systems listed below were reviewed and are negative unless otherwise noted in the report. [CONSTITUTIONAL] [EYES] [ENT] [CARDIOVASCULAR] [RESPIRATORY] [GASTROINTESTINAL] [GENITOURINARY] [MUSCULOSKELETAL] [DERMATOLOGICAL] [NEUROLOGICAL] PHYSICAL EXAM: VITAL SIGNS: Nursing notes reviewed. GENERAL: Alert and interactive EYES: Eyes track. No injection. ENT: Airway patent. Mucus membranes moist. RESPIRATORY: Nonlabored breathing. Chest rise symmetric CARDIOVASCULAR: [Regular rate.] [Regular rhythm.] GASTROINTESTINAL: No distension. MUSCULOSKELETAL: No deformity. No swelling. Radial pulses equal bilaterally. NEUROLOGICAL: Awake. Moves extremities SKIN: Warm. Dry. DIAGNOSTIC STUDIES Labs: - Please see EMR Radiology: - Please see EMR [EKG: ] EKG Per my interpretation: Electrocardiogram ECG RATE: [Normal] RHYTHM: [Normal sinus] AXIS: [Normal] INTERVALS: [Normal] ST-T WAVE CHANGES: ST segment elevation in 2 3 aVF with depressions in 1 aVL V1 V2 ABNORMALITIES/COMPARISO N: Acute STEMI in the RCA distribution Emergency Department Course / Medical Decision Making The patient is admitted to the Emergency Department for evaluation of above. Complete history and physical examination was performed by me. Electronic medical record reviewed. Patient is presenting with a STEMI. Blood pressure was checked and was reassuring and he had good IV access so I did order nitro to try and relieve some of his symptoms. [facility] was activated prehospital and the [facility] team was at the bedside upon his arrival. Obtained a quick chest x-ray given he reported that the pain was sharp and radiating to his arm which not show pneumothorax and did not show a widened mediastinum so I doubt he is having dissection. [facility] was available so patient was taken directly to [facility] for percutaneous intervention for his ST segment elevation [place]. I did speak with the director sanitation bureau team to let them know that the patient be coming to them afterwards. DIAGNOSIS: STEMI DISPOSITION: 1) [facility] HISTORY OF PRESENTING ILLNESS ASHOK is a 55 year old Male and was seen by me at 18-Nov-2020 19:11. Triage Information: Most recent Vital Sign Value Date PAST MEDICAL HISTORY ALLERGIES/INTOLERANCES: Allergy Status Unknown HEALTH HISTORY: No documented data. OUTPATIENT MEDICATIONS: Home Medications Review Status for Reconciliation: N/A Med Status: N/A No documented data. SIGNIFICANT EVENTS: No documented data. DISPOSITION Diagnosis/Annotation: ED Dx Name:STEMI (ST elevation myocardial infarction) Code:I21.3 Disposition: hospitalized CONSULT CRITICAL CARE TIME Is this a critically ill patient: yes Billing Provider Critical Care Time (mins): 20 Primary Critical Care Issue/Treatment (See MDM/ED Course/Tx Plan for greater detail): -- This patient is believed to have significant myocardial infarction requiring careful monitoring of cardiorespiratory status, including intensive treatment with cardiovascular medications or devices, as indicated. Please see MDM/ED Course/Treatment Plan for greater detail. Additional Critical Care Provided: direct patient care (not related to procedure), additional history taking, interpretation of diagnostic studies, documentation and consultation with other physicians Electronic Signatures: Jerry Blair) (Signed 18-Nov-2020 20:27) Authored: ED Notes, HPI, PMH, Clinical Impression, Attestation, Chart Review, Scores Last Updated: 18-Nov-2020 20:27 by Jerry Blair) Normal [facility] TROPONIN Ion 11-18-2020 Troponin I.cardiac [Mass/Vol] 0.03 ng/mL Normal 0.00 - 0.03 [facility] Comment on above: Result Comment: LESS THAN 0.04 NG/ML: NEGATIVE REPEAT TESTING IN THREE TO SIX HOURS IF CLINICALLY INDICATED. 0.04 - 0.5 NG/ML: CONSISTENT WITH POSSIBLE CARDIAC DAMAGE AND POSSIBLE INCREASED CLINICAL RISK. SERIAL MEASUREMENTS MAY HELP ASSESS EXTENT OF MYOCARDIAL DAMAGE. >0.5 NG/ML: CONSISTENT WITH CARDIAC DAMAGE, INCREASED CLINICAL RISK AND MYOCARDIAL INFARCTION. SERIAL MEASUREMENTS MAY HELP ASSESS EXTENT OF MYOCARDIAL DAMAGE. . Note: Troponin I testing is performed using different testing methodology at [facility] than at other [facility]. Direct result comparisons should only be made within the same method. Performed By: #### T LENO ####[facility] [place], [place] [id number] Troponinon 05-05-2020 Troponin I.cardiac [Mass/Vol] 7 ng/L Normal 0-22 [facility] Comment on above: Result Comment: High Sensitivity Troponin values cannot be compared with other Troponin methodologies. Patients with high levels of Biotin oral intake (i.e >5mg/day) may have falsely decreased Troponin levels. Samples collected within 8 hours of biotin intake may require additional information for diagnosis. Performed By: #### T WILLY #### [address] [place] [phone] [employer] Analyst: Shane Peña MD Troponin I.cardiac [Mass/Vol] NOT REPORTED [employer] Phone: Troponin T.cardiac [Mass/Vol] NOT REPORTED <0.03 ng/mL [employer] Phone: Troponin, High Sensitivity 7 ng/L 0 - 22 ng/L [employer] Phone: Comment on above: High Sensitivity Troponin values cannot be compared with other Troponin methodologies. Patients with high levels of Biotin oral intake (i.e >5mg/day) may have falsely decreased Troponin levels. Samples collected within 8 hours of biotin intake may require additional information for diagnosis. Troponinon 05-04-2020 Troponin I.cardiac [Mass/Vol] NOT REPORTED Normal [facility] Comment on above: Performed By: #### T WILLY #### [address] [place] [address] [phone] [employer] Analyst: Shane Peña MD CBCon 05-03-2020 Erythrocyte distribution width (RBC) [Ratio] 12.9 % Normal 11.8-14.4 [facility] Comment on above: Performed By: #### C BC, CP, LIPR, TSH #### [address] [place] [address] [phone] [employer] Analyst: Shane Peña MD Hematocrit (Bld) [Volume fraction] 43.3 % Normal 40.7-50.3 [facility] Comment on above: Performed By: #### C BC, CP, LIPR, TSH #### [facility] [employer] [address] [place] [address] [phone] [employer] Analyst: Shane Peña MD Hemoglobin (Bld) [Mass/Vol] 14.0 g/dL Normal 13.0-17.0 [facility] Comment on above: Performed By: #### C BC, CP, LIPR, TSH #### [facility] [employer] [address] [place] [address] [phone] [employer] Analyst: Shane Peña MD MCH (RBC) [Entitic mass] 29.6 pg Normal 25.2-33.5 [facility] Comment on above: Performed By: #### C BC, CP, LIPR, TSH #### [facility] [employer] [address] [place] [address] [phone] [employer] Analyst: Shane Peña MD MCHC (RBC) [Mass/Vol] 32.3 g/dL Normal 28.4-34.8 [facility] Comment on above: Performed By: #### C BC, CP, LIPR, TSH #### [facility] [employer] [address] [place] [address] [phone] [employer] Analyst: Shane Peña MD MCV (RBC) [Entitic vol] 91.5 fL Normal 82.6-102.9 [facility] Comment on above: Performed By: #### C BC, CP, LIPR, TSH #### [facility] [employer] [address] [place] [address] [phone] [employer] Analyst: Shane Peña MD NRBC Automated 0.0 per 100 WBC Normal 0.0 [facility] Comment on above: Performed By: #### C BC, CP, LIPR, TSH #### [employer] [facility] [place] [address] [employer] Analyst: Shane Peña MD Platelet mean volume (Bld) [Entitic vol] 9.1 fL Normal 8.1-13.5 [facility] Comment on above: Performed By: #### C BC, CP, LIPR, TSH #### [facility] [address] [place] [phone] [employer] Analyst: Shane Peña MD Platelets (Bld) [#/Vol] 410 10*3/uL Normal 138-453 [facility] Comment on above: Performed By: #### C BC, CP, LIPR, TSH #### [facility] [address] [place] [address] [phone] [employer] Analyst: Shane Peña MD RBC (Bld) [#/Vol] 4.73 10*6/uL Normal 4.21-5.77 [facility] Comment on above: Performed By: #### C BC, CP, LIPR, TSH #### [facility] [address] [place] [address] [phone] [employer] Analyst: Shane Peña MD WBC (Bld) [#/Vol] 14.2 10*3/uL High 3.5-11.3 [facility] Comment on above: Performed By: #### C BC, CP, LIPR, TSH #### [facility] [address] [place] [address] [phone] [employer] Analyst: Shane Peña MD Erythrocyte distribution width (RBC) [Ratio] 12.9 % 11.8 - 14.4 % [employer] Phone: Hematocrit (Bld) [Volume fraction] 43.3 % 40.7 - 50.3 % [employer] Phone: Hemoglobin (Bld) [Mass/Vol] 14.0 g/dL 13 - 17 g/dL [employer] Phone: Interpretation and review of laboratory results Abnormal [employer] Phone: MCH (RBC) [Entitic mass] 29.6 pg 25.2 - 33.5 pg [employer] Phone: MCHC (RBC) [Mass/Vol] 32.3 g/dL 28.4 - 34.8 g/dL [employer] Phone: MCV (RBC) [Entitic vol] 91.5 fL 82.6 - 102.9 fL [employer] Phone: Platelet mean volume (Bld) [Entitic vol] 9.1 fL 8.1 - 13.5 fL [employer] Phone: Platelets (Bld) [#/Vol] 410 10*3/uL [employer] Phone: RBC (Bld) [#/Vol] 4.73 10*6/uL 4.21 - 5.7 7 m/uL [employer] Phone: WBC (Bld) [#/Vol] 0.0 10*3/uL 0.0 per 10 0 WBC [employer] Phone: WBC (Bld) [#/Vol] 14.2 10*3/uL High [employer] Phone: Comp Metabolic Profon 2020 (cont.) Normal [facility] Comment on above: Result Comment: Aver age GFR for 50-59 years old: 93 mL/min/1.73sq m Chronic Kidney Disease: <60 mL/min/1.73sq m Kidney failure: <15 mL/min/1.73sq m eGFR calculated using average adult body mass. Additional eGFR calculator available at: http://www.[address].com/multiple_crcl_2012.htm Performed By: #### C BC, CP, LIPR, TSH #### [address] [place] [address] [phone] [employer] Analyst: Shane Peña MD Albumin [Mass/Vol] 4.1 g/dL Normal 3.5-5.2 [facility] Comment on above: Performed By: #### C BC, CP, LIPR, TSH #### [facility] [employer] [address] [place] [address] [phone] [employer] Analyst: Shane Peña MD Albumin/Globulin [Mass ratio] 1.8 {ratio} Normal 1.0-2.5 [facility] Comment on above: Performed By: #### C BC, CP, LIPR, TSH #### [facility] [employer] [address] [place] [address] [phone] [employer] Analyst: Shane Peña MD Alkaline Phos 80 U/L Normal 40-129 [facility] Comment on above: Performed By: #### C BC, CP, LIPR, TSH #### [facility] [employer] [address] [place] [address] [phone] [employer] Analyst: Shane Peña MD ALT [Catalytic activity/Vol] 18 U/L Normal 5-41 [facility] Comment on above: Performed By: #### C BC, CP, LIPR, TSH #### [facility] [employer] [address] [place] [address] [phone] [employer] Analyst: Shane Peña MD Anion gap [Moles/Vol] 9 mmol/L Normal 9-17 [facility] Comment on above: Performed By: #### C BC, CP, LIPR, TSH #### [facility] [employer] [address] [place] [address] [phone] [employer] Analyst: Shane Peña MD AST [Catalytic activity/Vol] 15 U/L Normal <40 [facility] Comment on above: Performed By: #### C BC, CP, LIPR, TSH #### [facility] [employer] [facility] [place] [address] [employer] Analyst: Shane Peña MD Bilirubin Ql (U) 0.32 mg/dL Normal 0.3-1.2 [facility] Comment on above: Performed By: #### C BC, CP, LIPR, TSH #### [facility] [address] [place] [address] [phone] [employer] Analyst: Shane Peña MD Calcium [Mass/Vol] 9.4 mg/dL Normal 8.6-10.4 [facility] Comment on above: Performed By: #### C BC, CP, LIPR, TSH #### [facility] [address] [place] [address] [id number] [employer] Analyst: Shane Peña MD Chloride [Moles/Vol] 102 mmol/L Normal 98-107 [facility] Comment on above: Performed By: #### C BC, CP, LIPR, TSH #### [facility] [facility] [employer] Pat[employer] [address] [place] [address] [phone] Epic Kaleidoscope Analyst: Shane Peña MD CO2 [Moles/Vol] 26 mmol/L Normal 20-31 [facility] Comment on above: Performed By: #### C BC, CP, LIPR, TSH #### [facility] [place] [employer] Pat[employer] [address] [place] [address] [phone] [employer] Kaleidoscope Analyst: Shane Peña MD Creatinine [Mass/Vol] 0.86 mg/dL Normal 0.70-1.20 [facility] Comment on above: Performed By: #### C BC, CP, LIPR, TSH #### [facility] [address] [place] [address] [phone] [employer] Kaleidoscope Analyst: Shane Peña MD GFR, Amer >60 Normal >60 [facility] Comment on above: Performed By: #### C BC, CP, LIPR, TSH #### [facility] [address] [place] [address] [phone] [employer] K[employer] Analyst: Shane Peña MD GFR,non Amer >60 Normal >60 [facility] Comment on above: Performed By: #### C BC, CP, LIPR, TSH #### [facility] [address] [place] [address] [phone] [employer] Kaleidoscope Analyst: Shane Peña MD Glucose [Mass/Vol] 95 mg/dL Normal 70-99 [facility] Comment on above: Performed By: #### C BC, CP, LIPR, TSH #### [facility] [address] [place] [address] [phone] Epic Kaleidoscope Analyst: Shane Peña MD Potassium [Moles/Vol] 4.3 mmol/L Normal 3.7-5.3 [facility] Comment on above: Performed By: #### C BC, CP, LIPR, TSH #### [facility] [address] [place] [address] [phone] Epic K[employer]idoscope Analyst: Shane Peña MD Protein [Mass/Vol] 6.4 g/dL Normal 6.4-8.3 [facility] Comment on above: Performed By: #### C BC, CP, LIPR, TSH #### [facility] [employer] [address] [place] [address] 68869 Epic Kaleidoscope Analyst: Shane Peña MD Sodium [Moles/Vol] 137 mmol/L Normal 135-144 [facility] Comment on above: Performed By: #### C BC, CP, LIPR, TSH #### [facility] [address] [place] [address] [phone] Epic Kaleidoscope Analyst: Shane Peña MD Urea nitrogen [Mass/Vol] 17 mg/dL Normal 6-20 [facility] Comment on above: Performed By: #### C BC, CP, LIPR, TSH #### [facility] [address] [place] [address] [phone] Epic Kaleidoscope Analyst: Shane Peña MD BUN/CRE Ratio NOT REPORTED Normal -20 [facility] Comment on above: Performed By: #### C BC, CP, LIPR, TSH #### [facility] [address] [place] [address] [phone] Epic Kaleidoscope Analyst: Shane Peña MD Staging: NOT REPORTED Normal [facility] Comment on above: Performed By: #### C BC, CP, LIPR, TSH #### [address] [place], [place] [phone] Epic Kaleidoscope Analyst: Shane Peña MD Comprehensive Metabolic Pane carole 05-03-2020 Albumin [Mass/Vol] 4.1 g/dL 3.5 - 5.2 g/dL [employer] Work Phone: Albumin/Globulin [Mass ratio] 1.8 {ratio} [employer] Phone: ALP [Catalytic activity/Vol] 80 U/L 40 - 129 U/L [email or web address] Phone: ALT [Catalytic activity/Vol] 18 U/L 5 - 41 U/L [email or web address] Phone: Anion gap [Moles/Vol] 9 mmol/L 9 - 17 mmol/L [email or web address] Phone: AST [Catalytic activity/Vol] 15 U/L <40 [employer] Phone: Bilirubin Ql (U) 0.32 mg/dL 0.3 - 1.2 mg/dL [employer] Phone: Bun/Cre Ratio NOT REPORTED [facility] Work Phone: Calcium [Mass/Vol] 9.4 mg/dL 8.6 - 10. 4 mg/dL [employer] Phone: Chloride [Moles/Vol] 102 mmol/L 98 - 10 7 mmol/L [employer] Phone: CO2 [Moles/Vol] 26 mmol/L 20 - 31 mmol/L [employer] Phone: Creatinine [Mass/Vol] 0.86 mg/dL 0.7 - 1.2 mg/dL [employer] Phone: GFR >60 >60 mL/min [employer] Phone: GFR Non- >60 >60 mL/min [employer] Phone: GFR/1.73 sq M predicted among non-blacks MDRD (S/P/Bld) [Vol rate/Area] [employer] Phone: Comment on above: Average GFR for 50-5 9 years old: 93 mL/min/1.73sq m Chronic Kidney Disease: <60 mL/min/1.73sq m Kidney failure: <15 mL/min/1.73sq m eGFR calculated using average adult body mass. Additional eGFR calculator available at: http://www.[employer]/multiple_crcl_2011.htm GFR/1.73 sq M predicted among non-blacks MDRD (S/P/Bld) [Vol rate/Area] NOT REPORTED [employer] Phone: Glucose [Mass/Vol] 95 mg/dL 70 - 99 mg/dL [employer] Phone: Potassium [Moles/Vol] 4.3 mmol/L 3.7 - 5.3 mmol/L [employer] Phone: Protein [Mass/Vol] 6.4 g/dL 6.4 - 8.3 g/dL [employer] Phone: Sodium [Moles/Vol] 137 mmol/L 135 - 144 mmol/L [employer] Phone: Urea nitrogen [Mass/Vol] 17 mg/dL 6 - 20 mg/dL [employer] Phone: Lipid Panelon 05-03-2020 Cholesterol [Mass/Vol] 172 mg/dL <200 [employer] Phone: Comment on above: Cholesterol Guidelines: <200 Desirable 200-240 Borderline >240 Undesirable Cholesterol in HDL [Mass/Vol] 38 mg/dL Low >40 [employer] Phone: Comment on above: HDL Guidelines: <40 Undesirable 40-59 Borderline >59 Desirable Cholesterol in LDL [Mass/Vol] 106 mg/dL 0 - 130 mg/dL [employer] Phone: Comment on above: LDL Guidelines: <100 Desirable 100-129 Near to/above Desirable 130-159 Borderline >159 Undesirable Direct (measured) LDL and calculated LDL are not interchangeable tests. Cholesterol in VLDL [Mass/Vol] NOT REPORTED 1 - 30 mg/dL [employer] Phone: Cholesterol.total/Ch olesterol in HDL [Mass ratio] 4.5 {ratio} <5 [employer] Phone: Interpretation and review of laboratory results Abnormal [employer] Phone: Triglyceride [Mass/Vol] 138 mg/dL <150 [employer] Phone: Comment on above: Triglyceride Guidelines: <150 Desirable 150-199 Borderline 200-499 High >499 Very high Based on AHA Guidelines for fasting triglyceride, December 2011. Lipid Profileon 05-03-2020 Cholesterol [Mass/Vol] 172 mg/dL Normal <200 [facility] Comment on above: Result Comment: Cholesterol Guidelines: <200 Desirable 200-240 Borderline >240 Undesirable Performed By: #### C BC, CP, LIPR, TSH #### [address] [place] [address] Epic Kaleidoscope Analyst: Shane Peña MD Cholesterol in HDL [Mass/Vol] 38 mg/dL Low >40 [facility] Comment on above: Result Comment: HDL Guidelines: <40 Undesirable 40-59 Borderline >59 Desirable Performed By: #### C BC, CP, LIPR, TSH #### [address] [place], [place] [phone] [employer] Kaleidoscope Analyst: Shane Peña MD Cholesterol in LDL [Mass/Vol] 106 mg/dL Normal 0-130 [facility] Comment on above: Result Comment: LDL Guidelines: <100 Desirable 100-129 Near to/above Desirable 130-159 Borderline >159 Undesirable Direct (measured) LDL and calculated LDL are not interchangeable tests. Performed By: #### C BC, CP, LIPR, TSH #### [facility] [address] [place] [address] [phone] Epic K[employer]idoscope Analyst: Shane Peña MD Cholesterol.total/Ch olesterol in HDL [Mass ratio] 4.5 {ratio} Normal <5 [facility] Comment on above: Performed By: #### C BC, CP, LIPR, TSH #### [facility] [place] [employer] [address] [place] [address] [phone] Epic K[employer]idoscope Analyst: Shane Peña MD Triglyceride [Mass/Vol] 138 mg/dL Normal <150 [facility] Comment on above: Result Comment: Triglyceride Guidelines: <150 Desirable 150-199 Borderline 200-499 High >499 Very high Based on AHA Guidelines for fasting triglyceride, December 2011. Performed By: #### C BC, CP, LIPR, TSH #### [facility] [employer] [address] [place] [address] [phone] Epic K[employer]idoscope Analyst: Shane Peña MD Cholesterol in VLDL [Mass/Vol] NOT REPORTED Normal -30 [facility] Comment on above: Performed By: #### C BC, CP, LIPR, TSH #### [facility] [employer] [address] [place] [address] [phone] [employer] K[employer] Analyst: Shane Peña MD TSH without Reflexon 021 TSH Qn 1.35 m[IU]/L [facility] [employer] Work Phone: Thyroid Stim. Horm.on 2020 TSH Qn 1.35 m[IU]/L Normal 0.30-5.00 [facility] Comment on above: Performed By: #### C BC, CP, LIPR, TSH #### [facility] [employer] [address] [place] [address] [phone] Epic K[employer]idoscope Analyst: Shane Peña MD XR CHEST (2 VW)on 05-03-2020 XR CHEST (2 VW) EXAMINATION: TWO XRAY VIEWS OF THE CHEST 05/03/2020 10:50 am COMPARISON: None. HISTORY: ORDERING SYSTEM PROVIDED HISTORY: Chest discomfort TECHNOLOGIST PROVIDED HISTORY: Acuity: Unknown Type of Exam: Unknown FINDINGS: Frontal and lateral views of the chest are submitted for review. The cardiac silhouette is normal in size. Lung parenchyma is clear without focal airspace consolidation, sizeable pleural effusion, or pneumothorax. Trachea is midline. Osseous structures and soft tissues are grossly intact. IMPRESSION: No evidence for acute cardiopulmonary pathology. Interpreted by: Stephan Soto MD Signed by: Stephan Soto MD 05/03/20 Final result Normal [facility] No evidence for acut e cardiopulmonary pathology. [employer] Phone: EXAMINATION: TWO XRA Y VIEWS OF THE CHEST 05/03/2020 10:50 am COMPARISON: None. HISTORY: ORDERING SYSTEM PROVIDED HISTORY: Chest discomfort TECHNOLOGIST PROVIDED HISTORY: Acuity: Unknown Type of Exam: Unknown FINDINGS: Frontal and lateral views of the chest are submitted for review. The cardiac silhouette is normal in size. Lung parenchyma is clear without focal airspace consolidation, sizeable pleural effusion, or pneumothorax. Trachea is midline. Osseous structures and soft tissues are grossly intact. [employer] Phone: Robert, pn Incoming Radiant Results From [employer] - 05/03/2020 11:24 AM EST EXAMINATION: TWO XRAY VIEWS OF THE CHEST 05/03/2020 10:50 am COMPARISON: None. HISTORY: ORDERING SYSTEM PROVIDED HISTORY: Chest discomfort TECHNOLOGIST PROVIDED HISTORY: Acuity: Unknown Type of Exam: Unknown FINDINGS: Frontal and lateral views of the chest are submitted for review. The cardiac silhouette is normal in size. Lung parenchyma is clear without focal airspace consolidation, sizeable pleural effusion, or pneumothorax. Trachea is midline. Osseous structures and soft tissues are grossly intact. IMPRESSION: No evidence for acute cardiopulmonary pathology. [employer] Phone: Covid-19 Ambulatoryon 2019 SARS-CoV-2, ALLIE Not Detected Not Detected [facility] [place] Comment on above: (NOTE) This nucleic acid amplification test was developed and its performance characteristics determined by [employer]. Nucleic acid amplification tests include PCR and TMA. This test has not been FDA cleared or approved. This test has been authorized by FDA under an Emergency Use Authorization (EUA). This test is only authorized for the duration of time the declaration that circumstances exist justifying the authorization of the emergency use of in vitro diagnostic tests for detection of SARS-CoV-2 virus and/or diagnosis of COVID-19 infection under section 564(b)(1) of the Act, 21 U.S.C. 360bbb-3(b) (1), unless the authorization is terminated or revoked sooner. When diagnostic testing is negative, the possibility of a false negative result should be considered in the context of a patient's recent exposures and the presence of clinical signs and symptoms consistent with COVID-19. An individual without symptoms of COVID- 19 and who is not shedding SARS-CoV-2 virus would expect to have a negative (not detected) result in this assay. Performed At: [employer] [address] [place], [place] [id number] Lilian Severino [facility] Ph:[phone] [id number] 11-09-2019 SARS-CoV-2 Not Detected Normal Not Detected [facility] Comment on above: Result Comment: (NOT E) This nucleic acid amplification test was developed and its performance characteristics determined by [employer]. Nucleic acid amplification tests include PCR and TMA. This test has not been FDA cleared or approved. This test has been authorized by FDA under an Emergency Use Authorization (EUA). This test is only authorized for the duration of time the declaration that circumstances exist justifying the authorization of the emergency use of in vitro diagnostic tests for detection of SARS-CoV-2 virus and/or diagnosis of COVID-19 infection under section 564(b)(1) of the Act, 21 U.S.C. 360bbb-3(b) (1), unless the authorization is terminated or revoked sooner. When diagnostic testing is negative, the possibility of a false negative result should be considered in the context of a patient's recent exposures and the presence of clinical signs and symptoms consistent with COVID-19. An individual without symptoms of COVID- 19 and who is not shedding SARS-CoV-2 virus would expect to have a negative (not detected) result in this assay. Performed At: [employer] [facility] [address] [employer], [place] [id number] Lilian Severino [facility] Ph:[phone] Performed By: #### A COV #### [facility] [address] [place] [address] [employer] K[employer]idoscope Analyst: Сергей Ramsey MD EKG 12 Leadon 11-04-2019 Atrial Rate 82 BPM [place], [place] P [place] 52 degrees [place], [place] P-R Interval 146 ms [facility], [place] Q-T Interval 388 ms [facility], [place] QRS Duration 102 ms [place] QTc Calculation (Bazett) 453 ms [place] R [place] -21 degrees [facility], [place] T [place] 58 degrees [place], [place] Ventricular Rate 82 BPM [place], [place] Robert, [employer] Incoming E kg Results From [facility] [place] - 11/04/2019 10:29 AM EDT Normal sinus rhythm Normal ECG No previous ECGs available [place] Normal sinus rhythm Normal ECG No previous ECGs available [place] Basic Metabolic Panelon 08-3 Anion gap [Moles/Vol] 10 mmol/L 9 - 17 mmol/L [place] Bun/Cre Ratio NOT REPORTED [place] Calcium [Mass/Vol] 9.2 mg/dL 8.6 - 10. 4 mg/dL [place] Chloride [Moles/Vol] 104 mmol/L 98 - 10 7 mmol/L [place] CO2 [Moles/Vol] 27 mmol/L 20 - 31 mmol/L [place] Creatinine [Mass/Vol] 0.83 mg/dL 0.7 - 1.2 mg/dL [place] GFR >60 >60 mL/min [place] GFR Non- >60 >60 mL/min [place] GFR/1.73 sq M predicted among non-blacks MDRD (S/P/Bld) [Vol rate/Area] [place] Comment on above: Average GFR for 50-5 9 years old: 93 mL/min/1.73sq m Chronic Kidney Disease: <60 mL/min/1.73sq m Kidney failure: <15 mL/min/1.73sq m eGFR calculated using average adult body mass. Additional eGFR calculator available at: http://www.[employer]/multiple_crcl_2012.htm GFR/1.73 sq M predicted among non-blacks MDRD (S/P/Bld) [Vol rate/Area] NOT REPORTED [place], [place] Glucose [Mass/Vol] 103 mg/dL High 70 - 99 mg/dL [place], [place] Interpretation and review of laboratory results Abnormal [place] Potassium [Moles/Vol] 4.5 mmol/L 3.7 - 5.3 mmol/L [place] Sodium [Moles/Vol] 141 mmol/L 135 - 144 mmol/L [place] Urea nitrogen [Mass/Vol] 18 mg/dL 6 - 20 mg/dL [place] Basic Metabolic Profon 11-01 (cont.) Normal [facility] Comment on above: Result Comment: Aver age GFR for 50-59 years old: 93 mL/min/1.73sq m Chronic Kidney Disease: <60 mL/min/1.73sq m Kidney failure: <15 mL/min/1.73sq m eGFR calculated using average adult body mass. Additional eGFR calculator available at: http://www.[employer]/multiple_crcl_2012.htm Performed By: #### C DP, BMP #### [facility] [address] [facility]. [place], [place] [phone] Epic Kaleidoscope Analyst: Cheko Boykin DO Anion gap [Moles/Vol] 10 mmol/L Normal 9-17 [facility] Comment on above: Performed By: #### C DP, BMP #### [facility] [address] [facility]. [place], [place] [phone] [employer] Analyst: Cheko Boykin DO Calcium [Mass/Vol] 9.2 mg/dL Normal 8.6-10.4 [facility] Comment on above: Performed By: #### C DP, BMP #### [facility] [address] [place] [address] [employer] K[employer]oscope Analyst: Cheko Boykin DO Chloride [Moles/Vol] 104 mmol/L Normal 98-107 [facility] Comment on above: Performed By: #### C DP, BMP #### [facility] [address] [place] [address] [employer] K[employer] Analyst: Cheko Boykin DO CO2 [Moles/Vol] 27 mmol/L Normal 20-31 [facility] Comment on above: Performed By: #### C DP, BMP #### [facility] [address] [place] [address] [employer] Analyst: Cheko Boykin DO Creatinine [Mass/Vol] 0.83 mg/dL Normal 0.70-1.20 [facility] Comment on above: Performed By: #### C DP, BMP #### [facility] [address] [place] [address] [employer] K[employer] Analyst: Cheko Boykin DO GFR, Amer >60 Normal >60 [facility] Comment on above: Performed By: #### C DP, BMP #### [facility] [address] [place] [address] [employer] Analyst: Cheko Boykin DO GFR,non Amer >60 Normal >60 [facility] Comment on above: Performed By: #### C DP, BMP #### [facility] [address] [place] [address] [employer] Analyst: Cheko Boykin DO Glucose [Mass/Vol] 103 mg/dL High 70-99 [facility] Comment on above: Performed By: #### C DP, BMP #### [facility] [address] [place] [address] [employer] Analyst: Fanelly, Cheko, DO Potassium [Moles/Vol] 4.5 mmol/L Normal 3.7-5.3 [facility] Comment on above: Performed By: #### C DP, BMP #### [facility] [address] [facility] [place] [address] [employer] Analyst: Cheko Boykin DO Sodium [Moles/Vol] 141 mmol/L Normal 135-144 [facility] Comment on above: Performed By: #### C DP, BMP #### [facility] [address] [facility] [place] [address] [employer] Analyst: Cheko Boykin DO Urea nitrogen [Mass/Vol] 18 mg/dL Normal 6-20 [facility] Comment on above: Performed By: #### C DP, BMP #### [facility] [address] [facility] [place] [address] [employer] Analyst: Cheko Boykin DO BUN/CRE Ratio NOT REPORTED Normal -20 [facility] Comment on above: Performed By: #### C KLAUS, BMP #### [facility] [address] [place] [address] Epic K[employer] Analyst: Cheko Boykin DO Staging: NOT REPORTED Normal [facility] Comment on above: Performed By: #### C DP, BMP #### [facility] [address] [place] [phone] [employer] Analyst: Cheko Boykin DO CBC Auto Differentialon 08-3 Basophils (Bld) [#/Vol] 0.10 10*3/uL [facility] [place], [place] Basophils/100 WBC (Bld) 1 % 0 - 2 % [facility] [place], [place] Differential Type NOT REPORTED [facility] [place], [place] Eosinophils (Bld) [#/Vol] 0.60 10*3/uL High [facility] [place] Eosinophils/100 WBC (Bld) 4 % 0 - 4 % [facility] [place] Erythrocyte distribution width (RBC) [Ratio] 13.9 % 11.5 - 14.9 % [place] Hematocrit (Bld) [Volume fraction] 42.4 % 41 - 53 % [place] Hemoglobin (Bld) [Mass/Vol] 14.5 g/dL 13.5 - 17.5 g/dL [place] Interpretation and review of laboratory results Abnormal [place] Lymphocytes (Bld) [#/Vol] 4.00 10*3/uL [place] Lymphocytes/100 WBC (Bld) 29 % 24 - 44 % [place] MCH (RBC) [Entitic mass] 30.5 pg 26 - 34 pg [place] MCHC (RBC) [Mass/Vol] 34.2 g/dL 31 - 37 g/dL [place] MCV (RBC) [Entitic vol] 89.1 fL 80 - 100 fL [place] Monocytes (Bld) [#/Vol] 1.00 10*3/uL [place], [place] Monocytes/100 WBC (Bld) 7 % 1 - 7 % [place] Platelet mean volume (Bld) [Entitic vol] 7.1 fL 6 - 12 fL [place], [place] Platelets (Bld) [#/Vol] 378 10*3/uL [place] Platelets (Bld) [#/Vol] NOT REPORTED [place] RBC (Bld) [#/Vol] 4.76 10*6/uL 4.5 - 5.9 m/uL [place] RBC morphology finding Nom (Bld) NOT REPORTED [place] Segmented neutrophils/100 WBC (Bld) 59 % 36 - 66 % [place] Segs Absolute 8.30 [place], [place] WBC (Bld) [#/Vol] 13.9 10*3/uL [place] WBC (Bld) [#/Vol] NOT REPORTED per 100 WBC [place] WBC Morphology NOT REPORTED [place] CBC with Diffon 11-02-2019 Abs. Basophil 0.10 k/uL Normal 0.0-0.2 [facility] Comment on above: Performed By: #### C DP, BMP #### [facility] [address] [place] [address] [phone] [employer] Analyst: Cheko Boykin DO Abs.Neutrophil (Seg) 8.30 k/uL Normal 1.3-9.1 [facility] Comment on above: Performed By: #### C DP, BMP #### [facility] [address] [place] [phone] [employer] Analyst: Cheko Boykin DO Basophils/100 WBC (Bld) 1 % Normal 0-2 [facility] Comment on above: Performed By: #### C DP, BMP #### [facility] [address] [place] [address] [phone] [employer] Analyst: Cheko Boykin DO Eosinophils (Bld) [#/Vol] 0.60 10*3/uL High 0.0-0.4 [facility] Comment on above: Performed By: #### C DP, BMP #### [facility] [address] [place] [address] [phone] Epic [employer] Analyst: Cheko Boykin DO Eosinophils/100 WBC (Bld) 4 % Normal 0-4 [facility] Comment on above: Performed By: #### C DP, BMP #### [facility] [address] [place] [phone] [employer] Analyst: Cheko Boykin DO Erythrocyte distribution width (RBC) [Ratio] 13.9 % Normal 11.5-14.9 [facility] Comment on above: Performed By: #### C DP, BMP #### [facility] [address] [place] [address] [phone] [employer] Analyst: Cheko Boykin DO Hematocrit (Bld) [Volume fraction] 42.4 % Normal 41-53 [facility] Comment on above: Performed By: #### C DP, BMP #### [facility] [place] [address] Epic K[employer]idoscope Analyst: Cheko Boykin DO Hemoglobin (Bld) [Mass/Vol] 14.5 g/dL Normal 13.5-17.5 [facility] Comment on above: Performed By: #### C DP, BMP #### [facility] [address] [place] [address] [phone] [employer] Analyst: Cheko Boykin DO Lymphocytes (Bld) [#/Vol] 4.00 10*3/uL Normal 1.0-4.8 [facility] Comment on above: Performed By: #### C DP, BMP #### [facility] [address] [place] [address] [phone] [employer] Analyst: Cheko Boykin DO Lymphocytes/100 WBC (Bld) 29 % Normal 24-44 [facility] Comment on above: Performed By: #### C KLAUS, BMP #### [facility] [address] [place] [phone] [employer] Analyst: Cheko Boykin DO MCH (RBC) [Entitic mass] 30.5 pg Normal 26-34 [facility] Comment on above: Performed By: #### C KLAUS, BMP #### [facility] [address] [place] [id number] [employer] Kaleidoscope Analyst: Cheko Boykin DO MCHC (RBC) [Mass/Vol] 34.2 g/dL Normal 31-37 [facility] Comment on above: Performed By: #### C DP, BMP #### [facility] [address] [place] [id number] [employer] Kaleidoscope Analyst: Cheko Boykin DO MCV (RBC) [Entitic vol] 89.1 fL Normal 80-100 [facility] Comment on above: Performed By: #### C DP, BMP #### [facility] [address] [facility] [place] [address] Epic Kaleidoscope Analyst: Cheko Boykin DO Monocytes (Bld) [#/Vol] 1.00 10*3/uL Normal 0.1-1.3 [facility] Comment on above: Performed By: #### C DP, BMP #### [facility] [place] [address] [employer] Kaleidoscope Analyst: Cheko Boykin DO Monocytes/100 WBC (Bld) 7 % Normal 1-7 [facility] Comment on above: Performed By: #### C DP, BMP #### [facility] [place] [address] Epic Kaleidoscope Analyst: Cheko Boykin DO Neutrophil (Seg) 59 % Normal 36-66 [facility] Comment on above: Performed By: #### C DP, BMP #### [facility] [address] [place] [id number] Epic Kaleid[employer] Analyst: Cheko Boykin DO Platelet mean volume (Bld) [Entitic vol] 7.1 fL Normal 6.0-12.0 [facility] Comment on above: Performed By: #### C DP, BMP #### [facility] [address] [place] [id number] Epic K[employer]id[employer] Analyst: Cheko Boykin DO Platelets (Bld) [#/Vol] 378 10*3/uL Normal 150-450 [facility] Comment on above: Performed By: #### C DP, BMP #### [facility] [place] [address] [employer] K[employer]id[employer] Analyst: Cheko Boykin DO RBC (Bld) [#/Vol] 4.76 10*6/uL Normal 4.5-5.9 [facility] Comment on above: Performed By: #### C DP, BMP #### [facility] [address] [place] [address] Epic Kaleidoscope Analyst: Cheko Boykin DO WBC (Bld) [#/Vol] 13.9 10*3/uL High 3.5-11.0 [facility] Comment on above: Performed By: #### C DP, BMP #### [facility] [place] [address] [employer] Kaleidoscope Analyst: Cheko Boykin DO Abs.Imm.Granulocyte NOT REPORTED Normal 0.00-0.30 [facility] Comment on above: Performed By: #### C DP, BMP #### [facility] [place] [address] Epic Kaleidoscope Analyst: Cheko Boykin DO Auto Diff Performed NOT REPORTED Normal [facility] Comment on above: Performed By: #### C DP, BMP #### [facility] [place] [address] Epic Kaleidoscope Analyst: Cheko Boykin DO Immature granulocytes (Bld) [#/Vol] NOT REPORTED Normal 0 [facility] Comment on above: Performed By: #### C DP, BMP #### [facility] [place] [address] Epic Kaleidoscope Analyst: Cheko Boykin DO NRBC Automated NOT REPORTED Normal [facility] Comment on above: Performed By: #### C DP, BMP #### [facility] [place] [address] Epic Kaleidoscope Analyst: Cheko Boykin DO Platelets (Bld) [#/Vol] NOT REPORTED Normal [facility] Comment on above: Performed By: #### C DP, BMP #### [facility] [place] [address] Epic Kaleidoscope Analyst: Cheko Boykin DO RBC morphology finding Nom (Bld) NOT REPORTED Normal [facility] Comment on above: Performed By: #### C DP, BMP #### [facility] [address] [place] [address] Epic Kaleidoscope Analyst: Cheko Boykin DO WBC Morphology NOT REPORTED Normal [facility] Comment on above: Performed By: #### C DP, BMP #### [facility] [address] [facility] [place] [address] Epic Kaleidoscope Analyst: Cheko Boykin DO Otheron 11-02-2019 Immature granulocytes (Bld) [#/Vol] NOT REPORTED 0 % [place], [place] MRI KNEE LEFT WO CONTRASTon 10-28-2019 MRI KNEE LEFT WO CONTRAST EXAMINATION: MRI OF THE LEFT KNEE WITHOUT CONTRAST, 10/27/2019 7:33 am TECHNIQUE: Multiplanar multisequence MRI of the left knee was performed without the administration of intravenous contrast. COMPARISON: Left knee plain radiographs from 09/29/2019 HISTORY: ORDERING SYSTEM PROVIDED HISTORY: Effusion of left knee TECHNOLOGIST PROVIDED HISTORY: left knee pain effussion Reason for Exam: Patient is complaining about left knee pain and swelling for the past 2 months. No specific injury noted. 54-year-old male with left knee effusion; left knee pain and swelling for the last 2 months FINDINGS: MENISCI: Lateral meniscus demonstrates normal morphology and signal characteristics. No lateral meniscus tear. Complex multidirectional tearing and volume loss in the posterior horn of the medial meniscus. Degeneration and outward extrusion of the medial meniscus body. CRUCIATE LIGAMENTS: Anterior and posterior cruciate ligaments appear intact. EXTENSOR MECHANISM: Mild multifocal patellar tendinosis. Mild distal quadriceps tendinosis. Patellar retinacula appear intact. LATERAL COLLATERAL LIGAMENT COMPLEX: Popliteus muscle/tendon, iliotibial band, lateral collateral ligament, and biceps femoris appear intact. MEDIAL COLLATERAL LIGAMENT COMPLEX: Medial collateral ligament complex appears intact. KNEE JOINT: Moderate joint effusion. Osseous alignment is normal. No acute fracture or dislocation. Grade 2 medial compartment chondromalacia. Partial and full-thickness fissuring of the weight-bearing medial femoral condyle. Articular cartilage of the lateral compartment appears grossly intact without focal chondral defect. 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 BONE MARROW: Bone marrow signal intensity within the visualized osseous structures otherwise within normal limits. No acute fracture or dislocation. SOFT TISSUES: Visualized popliteal neurovascular bundle grossly unremarkable. Mild edema in the soft tissues about the knee. IMPRESSION: 1. Complex multidirectional tearing and volume loss in the posterior horn of the medial meniscus. Degeneration and outward extrusion of the medial meniscus body. 2. Mild multifocal patellar tendinosis. Mild distal quadriceps tendinosis. 3. Moderate joint effusion. 4. Kuzk-pp-ldsuqvnt patellofemoral chondromalacia. Mild medial compartment chondromalacia. Superimposed partial and full-thickness fissuring of the weight-bearing medial femoral condyle. 5. Mild edema in the soft tissues about the knee. Interpreted by: Simeon Long MD Signed by: Simeon Long MD 10/28/19 Final result Normal [facility] 1. Complex multidirectional tearing and volume loss in the posterior horn of the medial meniscus. Degeneration and outward extrusion of the medial meniscus body. 2. Mild multifocal patellar tendinosis. Mild distal quadriceps tendinosis. 3. Moderate joint effusion. 4. Mldw-ic-aeoppdex patellofemoral chondromalacia. Mild medial compartment chondromalacia. Superimposed partial and full-thickness fissuring of the weight-bearing medial femoral condyle. 5. Mild edema in the soft tissues about the knee. [facility], [place] EXAMINATION: MRI OF THE LEFT KNEE WITHOUT CONTRAST, 10/27/2019 7:33 am TECHNIQUE: Multiplanar multisequence MRI of the left knee was performed without the administration of intravenous contrast. COMPARISON: Left knee plain radiographs from 09/29/2019 HISTORY: ORDERING SYSTEM PROVIDED HISTORY: Effusion of left knee TECHNOLOGIST PROVIDED HISTORY: left knee pain effussion Reason for Exam: Patient is complaining about left knee pain and swelling for the past 2 months. No specific injury noted. 54-year-old male with left knee effusion; left knee pain and swelling for the last 2 months FINDINGS: MENISCI: Lateral meniscus demonstrates normal morphology and signal characteristics. No lateral meniscus tear. Complex multidirectional tearing and volume loss in the posterior horn of the medial meniscus. Degeneration and outward extrusion of the medial meniscus body. CRUCIATE LIGAMENTS: Anterior and posterior cruciate ligaments appear intact. EXTENSOR MECHANISM: Mild multifocal patellar tendinosis. Mild distal quadriceps tendinosis. Patellar retinacula appear intact. LATERAL COLLATERAL LIGAMENT COMPLEX: Popliteus muscle/tendon, iliotibial band, lateral collateral ligament, and biceps femoris appear intact. MEDIAL COLLATERAL LIGAMENT COMPLEX: Medial collateral ligament complex appears intact. KNEE JOINT: Moderate joint effusion. Osseous alignment is normal. No acute fracture or dislocation. Grade 2 medial compartment chondromalacia. Partial and full-thickness fissuring of the weight-bearing medial femoral condyle. Articular cartilage of the lateral compartment appears grossly intact without focal chondral defect. 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 BONE MARROW: Bone marrow signal intensity within the visualized osseous structures otherwise within normal limits. No acute fracture or dislocation. SOFT TISSUES: Visualized popliteal neurovascular bundle grossly unremarkable. Mild edema in the soft tissues about the knee. [facility], [place] Robert, [facility] Incoming Radiant Results From [employer] - 10/28/2019 3:10 PM EDT EXAMINATION: MRI OF THE LEFT KNEE WITHOUT CONTRAST, 10/27/2019 7:33 am TECHNIQUE: Multiplanar multisequence MRI of the left knee was performed without the administration of intravenous contrast. COMPARISON: Left knee plain radiographs from 09/29/2019 HISTORY: ORDERING SYSTEM PROVIDED HISTORY: Effusion of left knee TECHNOLOGIST PROVIDED HISTORY: left knee pain effussion Reason for Exam: Patient is complaining about left knee pain and swelling for the past 2 months. No specific injury noted. 54-year-old male with left knee effusion; left knee pain and swelling for the last 2 months FINDINGS: MENISCI: Lateral meniscus demonstrates normal morphology and signal characteristics. No lateral meniscus tear. Complex multidirectional tearing and volume loss in the posterior horn of the medial meniscus. Degeneration and outward extrusion of the medial meniscus body. CRUCIATE LIGAMENTS: Anterior and posterior cruciate ligaments appear intact. EXTENSOR MECHANISM: Mild multifocal patellar tendinosis. Mild distal quadriceps tendinosis. Patellar retinacula appear intact. LATERAL COLLATERAL LIGAMENT COMPLEX: Popliteus muscle/tendon, iliotibial band, lateral collateral ligament, and biceps femoris appear intact. MEDIAL COLLATERAL LIGAMENT COMPLEX: Medial collateral ligament complex appears intact. KNEE JOINT: Moderate joint effusion. Osseous alignment is normal. No acute fracture or dislocation. Grade 2 medial compartment chondromalacia. Partial and full-thickness fissuring of the weight-bearing medial femoral condyle. Articular cartilage of the lateral compartment appears grossly intact without focal chondral defect. 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 BONE MARROW: Bone marrow signal intensity within the visualized osseous structures otherwise within normal limits. No acute fracture or dislocation. SOFT TISSUES: Visualized popliteal neurovascular bundle grossly unremarkable. Mild edema in the soft tissues about the knee. IMPRESSION: 1. Complex multidirectional tearing and volume loss in the posterior horn of the medial meniscus. Degeneration and outward extrusion of the medial meniscus body. 2. Mild multifocal patellar tendinosis. Mild distal quadriceps tendinosis. 3. Moderate joint effusion. 4. Ntyv-dl-eqhhxsxs patellofemoral chondromalacia. Mild medial compartment chondromalacia. Superimposed partial and full-thickness fissuring of the weight-bearing medial femoral condyle. 5. Mild edema in the soft tissues about the knee. [place] XR KNEE LEFT (3 VIEWS)on XR KNEE LEFT (3 VIEWS) EXAMINATION: THREE XRAY VIEWS OF THE LEFT KNEE 09/29/2019 12:07 pm COMPARISON: None. HISTORY: ORDERING SYSTEM PROVIDED HISTORY: Acute pain of left knee TECHNOLOGIST PROVIDED HISTORY: Reason for Exam: PT CO acute pain in left knee that started several days ago with swelling, NKI. Best images per pt cooperation. Acuity: Acute Type of Exam: Initial FINDINGS: No acute fracture. Mild medial compartment narrowing. Mild chondrocalcinosis within the medial compartment. Small joint effusion. IMPRESSION: Small joint effusion. Interpreted by: Roz Mora MD Signed by: Roz Mora MD 09/29/19 Final result Normal [facility] Small joint effusion. [place], [place] EXAMINATION: THREE X RAY VIEWS OF THE LEFT KNEE 09/29/2019 12:07 pm COMPARISON: None. HISTORY: ORDERING SYSTEM PROVIDED HISTORY: Acute pain of left knee TECHNOLOGIST PROVIDED HISTORY: Reason for Exam: PT CO acute pain in left knee that started several days ago with swelling, NKI. Best images per pt cooperation. Acuity: Acute Type of Exam: Initial FINDINGS: No acute fracture. Mild medial compartment narrowing. Mild chondrocalcinosis within the medial compartment. Small joint effusion. [place], [place] Robert, [facility] Incoming Radiant Results From [employer] - 09/29/2019 2:11 PM EDT EXAMINATION: THREE XRAY VIEWS OF THE LEFT KNEE 09/29/2019 12:07 pm COMPARISON: None. HISTORY: ORDERING SYSTEM PROVIDED HISTORY: Acute pain of left knee TECHNOLOGIST PROVIDED HISTORY: Reason for Exam: PT CO acute pain in left knee that started several days ago with swelling, NKI. Best images per pt cooperation. Acuity: Acute Type of Exam: Initial FINDINGS: No acute fracture. Mild medial compartment narrowing. Mild chondrocalcinosis within the medial compartment. Small joint effusion. IMPRESSION: Small joint effusion. [place], [place] Uric Acidon 09-28-2019 Urate [Mass/Vol] 6.0 mg/dL 3.4 - 7 mg/dL [place] Uric Acidon 12-09-2018 Urate [Mass/Vol] 5.8 mg/dL 3.4 - 7 mg/dL [place] CBCon 11-05-2018 Erythrocyte distribution width (RBC) [Ratio] 13.1 % 11.8 - 14.4 % [place] Hematocrit (Bld) [Volume fraction] 46.1 % 40.7 - 50.3 % [place] Hemoglobin (Bld) [Mass/Vol] 14.9 g/dL 13 - 17 g/dL [place] Interpretation and review of laboratory results Abnormal [place] MCH (RBC) [Entitic mass] 31.0 pg 25.2 - 33.5 pg [place] MCHC (RBC) [Mass/Vol] 32.3 g/dL 28.4 - 34.8 g/dL [place] MCV (RBC) [Entitic vol] 95.8 fL 82.6 - 102.9 fL [place] Platelet mean volume (Bld) [Entitic vol] 9.2 fL 8.1 - 13.5 fL [place], [place] Platelets (Bld) [#/Vol] 374 10*3/uL [place] RBC (Bld) [#/Vol] 4.81 10*6/uL 4.21 - 5.7 7 m/uL [place] WBC (Bld) [#/Vol] 11.8 10*3/uL High [place] WBC (Bld) [#/Vol] 0.0 10*3/uL 0.0 per 10 0 WBC [place] Comprehensive Metabolic Pane carole 11-05-2018 Albumin [Mass/Vol] 4.2 g/dL 3.5 - 5.2 g/dL [place] Albumin/Globulin [Mass ratio] 1.7 {ratio} [place] ALP [Catalytic activity/Vol] 83 U/L 40 - 129 U/L [place] ALT [Catalytic activity/Vol] 19 U/L 5 - 41 U/L [place] Anion gap [Moles/Vol] 16 mmol/L 9 - 17 mmol/L [place] AST [Catalytic activity/Vol] 15 U/L <40 [place] Bilirubin Ql (U) 0.29 mg/dL Low 0.3 - 1.2 mg/dL [place] Bun/Cre Ratio NOT REPORTED [place], [place] Calcium [Mass/Vol] 9.5 mg/dL 8.6 - 10. 4 mg/dL [place] Chloride [Moles/Vol] 104 mmol/L 98 - 10 7 mmol/L [place] CO2 [Moles/Vol] 26 mmol/L 20 - 31 mmol/L [place] Creatinine [Mass/Vol] 0.81 mg/dL 0.7 - 1.2 mg/dL [place] GFR >60 >60 mL/min [place] GFR Non- >60 >60 mL/min [place] GFR/1.73 sq M predicted among non-blacks MDRD (S/P/Bld) [Vol rate/Area] NOT REPORTED [place] GFR/1.73 sq M predicted among non-blacks MDRD (S/P/Bld) [Vol rate/Area] [place] Comment on above: Average GFR for 50-5 9 years old: 93 mL/min/1.73sq m Chronic Kidney Disease: <60 mL/min/1.73sq m Kidney failure: <15 mL/min/1.73sq m eGFR calculated using average adult body mass. Additional eGFR calculator available at: http://www.globalrph.com/multiple_crcl_2012.htm Glucose [Mass/Vol] 99 mg/dL 70 - 99 mg/dL [place] Potassium [Moles/Vol] 4.4 mmol/L 3.7 - 5.3 mmol/L [place] Protein [Mass/Vol] 6.7 g/dL 6.4 - 8.3 g/dL [place] Sodium [Moles/Vol] 146 mmol/L High 135 - 144 mmol/L [place] Urea nitrogen [Mass/Vol] 17 mg/dL 6 - 20 mg/dL [place] Lipid Panelon 11-05-2018 Cholesterol [Mass/Vol] 199 mg/dL <200 [place] Comment on above: Cholesterol Guidelines: <200 Desirable 200-240 Borderline >240 Undesirable Cholesterol in HDL [Mass/Vol] 42 mg/dL >40 [place] Comment on above: HDL Guidelines: <40 Undesirable 40-59 Borderline >59 Desirable Cholesterol in LDL [Mass/Vol] 126 mg/dL 0 - 130 mg/dL [place] Comment on above: LDL Guidelines: <100 Desirable 100-129 Near to/above Desirable 130-159 Borderline >159 Undesirable Direct (measured) LDL and calculated LDL are not interchangeable tests. Cholesterol in VLDL [Mass/Vol] NOT REPORTED High 1 - 30 mg/dL [place] Cholesterol.total/Ch olesterol in HDL [Mass ratio] 4.7 {ratio} <5 [place] Triglyceride [Mass/Vol] 157 mg/dL High <150 [place] Comment on above: Triglyceride Guidelines: <150 Desirable 150-199 Borderline 200-499 High >499 Very high Based on AHA Guidelines for fasting triglyceride, December 2011. Otheron 11-05-2018 Interpretation and review of laboratory results Abnormal [place] Vital Signs Date Time Vital Sign Value Performing Clinician Facility 11-26-2022 15:24-0400 Body height 187.96 cm Colten Barnard Furlong Work Phone: [facility] 250 DO Work Phone: 11-26-2022 15:24-0400 Body mass index (BMI) [Ratio] 35.31 kg/m2 Colten G Furlong Work Phone: [facility] [employer] 250 DO Work Phone: 11-26-2022 15:24-0400 Body surface area Derived from formula 2.49 m2 Colten G Furlong Work Phone: [facility] [employer] 250 DO Work Phone: 11-26-2022 15:24-0400 Body weight 124.74 kg Colten G Furlong Work Phone: [facility] [employer] 250 DO Work Phone: 11-26-2022 15:24-0400 Diastolic blood pressure 72 mm[Hg] Colten G Furlong Work Phone: [facility] [employer] 250 DO Work Phone: 11-26-2022 15:24-0400 Heart rate 70 /min Colten G Furlong Work Phone: [facility] [employer] 250 DO Work Phone: 11-26-2022 15:24-0400 Systolic blood pressure 138 mm[Hg] Colten G Furlong Work Phone: [facility] [employer] 250 DO Work Phone: 10-19-2021 14:25-0400 Body height 187.96 cm Colten G Furlong Work Phone: [facility] [employer] 250 DO Work Phone: 10-19-2021 14:25-0400 Body mass index (BMI) [Ratio] 33.64 kg/m2 Colten G Furlong Work Phone: [facility] [employer] 250 DO Work Phone: 10-19-2021 14:25-0400 Body surface area Derived from formula 2.44 m2 Colten G Furlong Work Phone: [facility] 250 DO Work Phone: 10-19-2021 14:25-0400 Body weight 118.84 kg Colten Amoslong Work Phone: [facility] 250 DO Work Phone: 10-19-2021 14:25-0400 Diastolic blood pressure 68 mm[Hg] Colten Amoslong Work Phone: [facility] 250 DO Work Phone: 10-19-2021 14:25-0400 Heart rate 74 /min Colten Amoslong Work Phone: [facility] 250 DO Work Phone: 10-19-2021 14:25-0400 Systolic blood pressure 130 mm[Hg] Colten Amoslong Work Phone: [facility] 250 DO Work Phone: 06-06-2021 10:10-0400 Body height 188 cm Megan Interiano MD Work Phone: [facility] 06-06-2021 10:10-0400 Body weight 116.8 kg Megan Interiano MD Work Phone: [facility] 06-06-2021 10:10-0400 Diastolic blood pressure 71 mm[Hg] Megan Interiano MD Work Phone: [facility] 06-06-2021 10:10-0400 Heart rate 62 /min Megan Interiano MD Work Phone: [facility] 06-06-2021 10:10-0400 Respiratory rate 16 /min Megan Interiano MD Work Phone: [facility] 06-06-2021 10:10-0400 SaO2% (BldA) [Mass fraction] 98 % Megan Interiano MD Work Phone: [place] [address]-05-2022 10:10-0400 Systolic blood pressure 148 mm[Hg] Megan Interiano MD Work Phone: [facility] 05-26-2021 09:27-0400 Body height 187.96 cm Colten G Furlong Work Phone: [facility] [employer] 600 DO Work Phone: 05-26-2021 09:27-0400 Body mass index (BMI) [Ratio] 33.41 kg/m2 Colten G Furlong Work Phone: [facility] [employer] 600 DO Work Phone: 05-26-2021 09:27-0400 Body surface area Derived from formula 2.43 m2 Colten G Furlong Work Phone: [facility] [employer] 600 DO Work Phone: 05-26-2021 09:27-0400 Body weight 118.03 kg Colten G Furlong Work Phone: [facility] [employer] 600 DO Work Phone: 05-26-2021 09:27-0400 Diastolic blood pressure 66 mm[Hg] Colten G Furlong Work Phone: [facility] [employer] 600 DO Work Phone: 05-26-2021 09:27-0400 Heart rate 62 /min Colten G Furlong Work Phone: [facility] [employer] 600 DO Work Phone: 05-26-2021 09:27-0400 Systolic blood pressure 122 mm[Hg] Colten G Furlong Work Phone: [facility] [employer] 600 DO Work Phone: 12-27-2020 13:15-0400 Body height 187.96 cm Colten G Furlong Work Phone: [facility] [employer] 127 DO Work Phone: 12-27-2020 13:15-0400 Body mass index (BMI) [Ratio] 33.64 kg/m2 Colten G Furlong Work Phone: [facility] [employer] 127 DO Work Phone: 12-27-2020 13:15-0400 Body surface area Derived from formula 2.44 m2 Colten G Furlong Work Phone: [facility] [employer] 127 DO Work Phone: 12-27-2020 13:15-0400 Body weight 118.84 kg Colten G Furlong Work Phone: [facility] [employer] 127 DO Work Phone: 12-27-2020 13:15-0400 Diastolic blood pressure 74 mm[Hg] Colten G Furlong Work Phone: [facility] [employer] 127 DO Work Phone: 12-27-2020 13:15-0400 Heart rate 74 /min Colten G Furlong Work Phone: [facility] [employer] 127 DO Work Phone: 12-27-2020 13:15-0400 Systolic blood pressure 131 mm[Hg] Colten G Furlong Work Phone: [facility] [employer] 127 DO Work Phone: 12-23-2020 09:15-0400 0 1 Colten G Furlong Work Phone: [facility] [employer] [place] Work Phone: Comment on above: [id number] 11-10-2019 13:25-0400 BP Diastolic 78 mm[Hg] [facility] , [place] 11-10-2019 13:25-0400 BP Systolic 140 mm[Hg] [facility] , [place] 11-10-2019 13:25-0400 Pulse (Heart Rate) 78 /min Liu Jackson [facility], [place] 11-10-2019 13:25-0400 Pulse Oximetry 97 % [facility] , [place] 11-10-2019 13:25-0400 Respiratory Rate 16 /min [facility], [place] 11-10-2019 12:43-0400 Body Temperature 97.2 [degF] Liu Jackson [facility], [place] 11-10-2019 10:06-0400 BMI (Body Mass Index) 35.31 kg/m2 Liu Jackson [facility], [place] 11-10-2019 10:06-0400 Body weight 124.74 kg [facility] , [place] 11-10-2019 10:06-0400 Height 188 cm [facility] , [place] 11-02-2019 11:08-0400 BMI (Body Mass Index) 35.31 kg/m2 [address], [place] 11-02-2019 11:08-0400 Body Temperature 98.01 [degF] [address], [place] 11-02-2019 11:08-0400 Body weight 124.[address] , [place] 11-02-2019 11:08-0400 BP Diastolic 94 mm[Hg] [address] , [place] 11-02-2019 11:08-0400 BP Systolic 147 mm[Hg] [address] , [place] 11-02-2019 11:08-0400 Height [address] , [place] 11-02-2019 11:08-0400 Pulse (Heart Rate) 83 /min [address] 11-02-2019 11:08-0400 Pulse Oximetry 99 % [address] , [place] 11-02-2019 11:08-0400 Respiratory Rate 18 /min [address] Encounters Encounter Date Encounter Type Care Provider Facility Start: 11-26-2022 Patient encounter procedure Colten Parra Work Phone: [facility] 250 DO Work Phone: Start: 07-31-2022 End: 08-01-2022 ambulatory AGUSTO STARKS . Facility:[facility]1 Start: 07-31-2022 End: 08-01-2022 ambulatory AD GOTTLIEB . Facility:[facility]1 Start: 07-20-2022 End: 07-21-2022 ambulatory Antonio Bird MD Facility:[facility] Start: 06-14-2022 End: 06-15-2022 ambulatory AGUSTO STARKS . Facility:[facility]1 Start: 05-08-2022 ambulatory [facility] Start: 05-03-2022 End: 05-03-2022 ambulatory HUNTER ROBINS Facility:[facility]1 Start: 03-15-2022 End: 03-16-[address] COMPA AWAD . Facility:[facility]1 Start: 02-15-2022 Encounter for preprocedural laboratory examination DR COMPA AWAD . [facility] Start: 02-13-2022 End: 02-13-[address] COMPA AWAD . Facility:[facility]1 Start: 02-09-2022 End: 02-10-[address] COMPA AWAD . Facility:[facility]1 Start: 02-09-2022 End: 02-10-2022 Encounter for preprocedural laboratory examination DR COMPA AWAD . Facility:[facility]1 Start: 01-16-2022 End: 01-17-[address] COMPA AWAD . Facility:[facility]1 Start: 01-09-2022 End: 01-09-[address] COMPA AWAD . Facility:[facility]1 Start: 01-08-2022 Rx Renewal Colten Pérez ng Work Phone: [facility] 250 DO Work Phone: Start: 01-08-2022 Rx Renewal Colten Raymond Elisa ng Work Phone: [facility] 250 DO Work Phone: Start: 12-28-2021 End: 12-29-2021 ambulatory HUNTER ROBINS Facility:[facility]1 Start: 12-28-2021 End: 12-29-[address] COMPA AWAD . Facility:[facility]1 Start: 12-12-2021 End: 12-12-[address] COMPA WAAD . Facility:[facility]1 Start: 11-29-2021 Rx Renewal Colten figueroa Work Phone: [facility] [employer] 250 DO Work Phone: Start: 10-26-2021 End: 10-27-[address] COMPA AWAD . Facility:[facility]1 Start: 10-19-2021 Office outpatient vi sit 25 minutes Colten Parra Work Phone: [facility] 250 DO Work Phone: Start: 08-23-2021 Message [facility] Work Phone: Start: 07-04-2021 Telephone encounter Megan garcia MD Work Phone: [facility] Comment on above: Schedule Surgery Start: 06-06-2021 End: 06-06-2021 Patient encounter procedure Megan Interiano MD Work Phone: [facility] Comment on above: Cervical spondylosis with myelopathy (Primary Dx); Loss of balance; Spinal stenosis of cervical region Start: 05-26-2021 Office outpatient vi sit 25 minutes [facility]: [facility] Work Phone: Start: 01-03-2021 Chart Update [facility] Work Phone: Start: 12-27-2020 FUV, Provider: Kalie Lebron, Status: Pen, Time: 1:00 PM Colten Pérezng Work Phone: [facility] [address] [place] Work Phone: Start: 12-27-2020 Office outpatient vi sit 25 minutes Colten Parra Work Phone: [facility] 127 DO Work Phone: Start: 12-23-2020 Patient encounter procedure Colten Parra Work Phone: [facility] [facility] [place] Work Phone: Start: 05-04-2020 End: 05-05-2020 Patient encounter procedure MARGARITA Gallardo [facility] Start: 05-04-2020 End: 05-04-2020 Subsequent hospital visit by physician Kash [facility] Start: 05-03-2020 End: 05-04-2020 Patient encounter procedure MARGARITA Gallardo [facility] Start: 05-03-2020 End: 05-03-2020 Subsequent hospital visit by physician Kash [facility] Comment on above: Chest discomfort; Essential hypertension Start: 05-03-2020 End: 05-06-2020 Patient encounter procedure FLACO CARTER [facility] Start: 05-03-2020 End: 05-05-2020 Subsequent hospital visit by physician Alexa Shukla Xr 1 [facility] Radiology Comment on above: Chest discomfort Start: 11-10-2019 End: 11-10-2019 Patient encounter procedure LIU JACKSON [facility] Start: 11-10-2019 End: 11-10-2019 Subsequent hospital visit by physician Liu Jackson Work Phone: [facility] Comment on above: Acute medial meniscu s tear of left knee, initial encounter (Primary Dx) Start: 11-06-2019 End: 11-11-2019 Patient encounter procedure ANAYA Kellogg HORTON [facility] Start: 11-06-2019 End: 11-10-2019 Subsequent hospital visit by physician Alexa Rojasid19 Pat Screening Schedule [facility] Pre-Admit Testing Start: 11-02-2019 End: 11-06-2019 Patient encounter procedure MARGARITA [facility] Start: 11-02-2019 End: 11-06-2019 Subsequent hospital visit by physician Mary Pat Rm 2 [facility] Pre-Admit Testing Start: 10-27-2019 End: 10-30-2019 Patient encounter procedure MARGARITA Gallardo [facility] Start: 10-27-2019 End: 10-29-2019 Subsequent hospital visit by physician Alexa Mri Rm 119 [facility] MRI Comment on above: Effusion of left kne e; Injury of left knee, subsequent encounter Start: 09-29-2019 End: 10-02-2019 Patient encounter procedure MISSYD Paulina [facility] Start: 09-29-2019 End: 10-01-2019 Subsequent hospital visit by physician Alexa Xr Room 4 [facility] Radiology Comment on above: Acute pain of left k nee Start: 09-29-2019 End: 09-29-2019 Patient encounter procedure KASH GRIER [facility] Start: 09-28-2019 End: 09-28-2019 Subsequent hospital visit by physician Margarita GARCÍA [facility] Comment on above: Gout of foot, unspec ified cause, unspecified chronicity, unspecified laterality Start: 12-09-2018 End: 12-09-2018 Subsequent hospital visit by physician Margarita GARC[facility]A [facility] Comment on above: Gouty arthritis of r ight foot Start: 11-05-2018 End: 11-05-2018 Subsequent hospital visit by physician Margarita GARCÍA [facility] Comment on above: Essential hypertensi on; Prostate cancer screening Procedures Date Procedure Procedure Detail Performing Clinician Start: 06-04-2021 Adult depression scr eening assessment Megan Interiano MD Work Phone: Start: 12-23-2020 Echocardiography Colten Parra Work Phone: Start: 05-04-2020 Assay of troponin quantitative Margarita Cagle Work Phone: Start: 05-03-2020 Radiologic exam ches t 2 views Margarita Cagle Work Phone: Start: 05-03-2020 Assay of thyroid sti mulating hormone tsh Brendavaprasad Paulina AbramsGurjit Work Phone: Start: 05-03-2020 Blood count complete automated Brendavaprasad Paulina Cagle Work Phone: Start: 05-03-2020 Comprehensive metabo lic panel Brendavaprasad K Gurjit Work Phone: Start: 05-03-2020 Lipid panel Shivaprasa d Paulina AbramsGurijt Work Phone: Start: 11-10-2019 DISCHARGE PATIENT SHIVA HERNÁNDEZ GUJRIT Start: 11-10-2019 BEDREST SHIVAPRASA D GURJIT Start: 11-10-2019 Continuous pulse oximetry SHIVAPRASAD GURJIT Start: 11-10-2019 ENCOURAGE DEEP BREAT UYEN AND COUGHING SHIVAPRASAD GURJIT Start: 11-10-2019 INITIATE OXYGEN THER APY PROTOCOL SHIVAPRASAD GURJIT Start: 11-10-2019 NURSING COMMUNICATION S HIVAPRASAD GURJIT Start: 11-10-2019 NOTIFY PHYSICIAN (SPECIFY) SHIVAPRASAD GURJIT Start: 11-10-2019 VITAL SIGNS SHIVAPRASA D GURJIT Start: 11-10-2019 INSERT PERIPHERAL IV SH IVAPRASAD GURJIT Start: 11-07-2019 COVID-19 AMBULATORY BRENDA VAPRASAD GURJIT Start: 11-06-2019 COVID-19 AMBULATORY Tramaine s E Horton Work Phone: Start: 11-06-2019 COVID-19 SHIVAPRASA D GURJIT Start: 11-02-2019 Ecg routine ecg w/le ast 12 lds w/i&r SHIVAPRASAD GURJIT Start: 11-02-2019 EKG REPORT SHIVAPRASA D GURJIT Start: 11-02-2019 Basic metabolic pane l calcium total SHIVAPRASAD GURJIT Start: 11-02-2019 Blood count complete auto&auto difrntl wbc SHIVAPRASAD GURJIT Start: 11-02-2019 Ecg routine ecg w/le ast 12 lds i&r only Anil Alvarez Work Phone: Start: 11-02-2019 EKG REPORT Hpf Scanni ng Start: 11-02-2019 Basic metabolic pane l calcium total Anil Alvarez Work Phone: Start: 11-02-2019 Blood count complete auto&auto difrntl wbc Anil Alvarez Work Phone: Start: 10-27-2019 Mri any jt lower ext rem w/o contrast matrl MARGARITA CAGLE Start: 10-27-2019 Mri any jt lower ext rem w/o contrast matrl Patria Quiñones Work Phone: Start: 09-29-2019 Radiologic examinati on knee 3 views MARGARITA GURJIT Start: 09-29-2019 Radiologic examinati on knee 3 views Kash Grier Work Phone: Start: 09-28-2019 Assay of blood/uric acid KASH GRIER Start: 09-28-2019 Assay of blood/uric acid Kash Grier Work Phone: Start: 12-09-2018 Assay of blood/uric acid Kash Grier Work Phone: Start: 11-05-2018 [object Object] Yasmin Cagle Comment on above: The Cole ECLIA as say is used. Results obtained with different assay methods cannot be used interchangeably. Start: 11-05-2018 Blood count complete automated Brendavacarmeld Paulina Cagle Work Phone: Start: 11-05-2018 Comprehensive metabo lic panel Brendavaprasad Paulina Gurjit Work Phone: Start: 11-05-2018 Lipid panel Brendavaprasa d Paulina Gurjti Work Phone: Start: 11-05-2018 PSA screening Shivapras ad Paulina Gurjit Work Phone: Decompression of med trudy nerve Colten Parra Work Phone: History of percutane ous transluminal coronary angioplasty History of PTCA Colten Parra Work Phone: Leg repair Colten barnard Work Phone: Comment on above: tibial plateau screw s; Nasal sinus procedure Colten Parra Work Phone: Operative procedure on ankle Colten Parra Work Phone: Operative procedure on knee Colten Parra Work Phone: Procedure on back Colten conway Work Phone: Plan of Treatment Date Care Activity Detail Author Start: 05-03-2025 Lipid panel Lipid screen [facility] Work Phone: Start: 04-28-2025 Hepatitis C screening Hepatitis C sc [facility] Work Phone: Comment on above: Postponed from 07/08 (Patient Refused) Start: 04-28-2025 HIV screening [facility] Work Phone: Comment on above: Postponed from 07/08 (Patient Refused) Start: 11-06-2023 Lipid panel Lipid screen [place], [place] Start: 11-06-2023 Lipid screen Lipid screen [place] Start: 07-13-2022 FUV, Provider: Leonid Figueredo, Status: Jose, Time: 9:00 AM FUV, Provider: Leonid Figueredo, Status: Jose, Time: 9:00 AM [facility] Work Phone: Start: 06-04-2022 Adult depression screening assessment DEPRESSION SCREENING [facility] Start: 11-02-2021 Influenza vaccination INFLUENZ A (Season Ended) [facility] Start: 10-27-2021 FUV, Provider: Leonid Figueredo, Status: Jose, Time: 2:50 PM FUV, Provider: Leonid Figueredo, Status: Jose, Time: 2:50 PM [facility] DO Work Phone: Start: 03-02-2022 Creatinine measurement Creatinine mo [facility] Work Phone: Start: 05-03-2021 Potassium monitoring Potassium monit [facility] [employer] Phone: Start: 04-28-2021 Influenza vaccination Flu [facility] (# 1[email or web address] Phone: Comment on above: Postponed from 11/02 (Patient Refused) Start: 04-28-2021 Pneumococcal 0-64 ye ars Vaccine (1 of 1 - PPSV23) Pneumococcal 0-64 years Vaccine (1 of 1 - PPSV23) [email or web address] Phone: Comment on above: Postponed from 07/08 (Patient Refused) Start: 03-30-2021 FUV, Provider: Rachel Stacy, Status: Pen, Time: 4:30 PM FUV, Provider: Rachel Stacy, Status: Pen, Time: 4:30 PM [facility] 127 DO Work Phone: Start: 12-27-2020 FUV, Provider: Kalie Lebron, Status: Pen, Time: 1:00 PM FUV, Provider: Kalie Lebron, Status: Pen, Time: 1:00 PM [place] [address] Work Phone: Start: 11-01-2020 Creatinine measurement Creatinine mo [place] Start: 11-01-2020 Potassium monitoring Potassium monit [place], [place] Start: 10-05-2020 Shingles Vaccine (1 of 2) Shingles Vaccine (1 of 2) [place], [place] Comment on above: Postponed from 07/08 (Patient Refused) Start: 2020 PROSTATE CANCER SCREENING DISCUSSION PROSTATE CANCER SCREENING DISCUSSION [facility] Start: 05-26-2020 End: 05-26-2020 Office Visit 05/26/2020 Office Visit Primary Care Margarita Cagle MD [address] [place], [place] [id number] [phone] [facility] Start: 12-16-2019 End: 12-16-2019 Office Visit 12/16/2019 Office Visit Family Medicine Kash Grier MD [address] [place] [address] [phone] Kash Grier [facility] Inc Start: 12-08-2019 End: 12-08-2019 Office Visit 12/08/2019 Office Visit Primary Care Patria Quiñones CPNP [address] [place] [address] [phone] [facility] Start: 11-23-2019 End: 11-23-2019 Office Visit 11/23/2019 Office Visit Orthopedic Surgery Liu Jackson MD [address] [address] [phone] [facility] Start: 11-10-2019 End: 11-10-2019 Hospital Encounter [facility] Comment on above: KNEE ARTHROSCOPY WIT H PARTIAL MEDICAL MENISECTOMY Start: 11-06-2019 End: 11-06-2019 Appointment 11/06/2019 Appointment Pre-Admission Testing [facility] Pre-Admit Testing Start: 11-06-2019 Creatinine measurement Creatinine mo nitoring [place], [place] Start: 11-06-2019 [facility] [place] Start: 11-06-2019 Potassium monitoring Potassium monit [place]ing [place] Start: 11-03-2019 Influenza vaccination Flu vaccine (# 1) [place] Start: 11-02-2019 End: 11-02-2019 Appointment 11/02/2019 Appointment Pre-Admission Testing [facility] Pre-Admit Testing Start: 10-31-2019 DTaP/Tdap/Td vaccine (1 - Tdap) DTaP/Tdap/Td vaccine (1 - Tdap) [place] Comment on above: Postponed from 07/08 (Patient Refused) Start: 10-31-2019 HIV screen HIV screen [place], [place] Comment on above: Postponed from 07/08 (Patient Refused) Start: 10-31-2019 HIV screening HIV screen [facility] [place] Comment on above: Postponed from 07/08 (Patient Refused) Start: 10-31-2019 Pneumococcal 0-64 ye ars Vaccine (1 of 1 - PPSV23) Pneumococcal 0-64 years Vaccine (1 of 1 - PPSV23) [place] Comment on above: Postponed from 07/08 (Patient Refused) Start: 10-06-2019 End: 10-06-2019 Office Visit 10/06/2019 Office Visit Primary Care Patria Quiñones CPNP [address] [place] [address] [phone] [facility] Start: 09-29-2019 End: 09-29-2019 Office Visit 09/29/2019 Office Visit Family Medicine Patria Quiñones CPNP [address] [place] [address] [phone] Kash Grier [facility] Start: 05-02-2019 Shingles Vaccine (1 of 2) Shingles Vaccine (1 of 2) [place] Comment on above: Postponed from 07/08 (Patient Refused) Start: 01-15-2019 End: 01-15-2019 Office Visit 01/15/2019 Office Visit Primary Care Margarita Cagle MD [address] [place] [address] [phone] [facility] Start: 12-15-2018 End: 12-15-2018 Office Visit 12/15/2018 Office Visit Family Medicine Kash Grier MD [address] [place] [address] [phone] Kash Grier [facility] Start: 11-02-2018 Influenza vaccination Flu vaccine (# 1) [place] Start: 07-09-2015 Colon cancer screen colonoscopy Colon cancer screen colonoscopy [place] Start: 07-09-2015 Screening for malign ant neoplasm of colon Colon cancer screen colonoscopy [place] Start: 07-09-2015 Shingles Vaccine (1 of 2) Shingles Vaccine (1 of 2) [place] Start: 07-09-2015 SHINGRIX VACCINE (1 of 2) SHINGRIX VACCINE (1 of 2) [facility] Start: 2010 COLOGUARD (FIT-DNA) COLOGUARD (FIT-D NA) [facility] Start: 2010 Colonoscopy COLONOSCOPY [facility] Start: 2010 COLORECTAL CANCER SCREENING COLORECTAL CANCER SCREENING [facility] Start: [address] COLONOGRAPHY [facility] Start: 2010 DIABETES SCREEN DIABETES SCREEN [facility] Start: 2010 FECAL OCCULT BLOOD FECAL OCCULT BLOO D [facility] Start: 2010 SIGMOIDOSCOPY SIGMOIDOSCOPY [facility] Start: 2005 Diabetes screen Diabetes screen [place], [place] Start: 2005 Lipid screen Lipid screen [place] Start: 2000 LIPID SCREEN LIPID SCREEN [facility] Start: 1984 DTaP/Tdap/Td vaccine (1 - Tdap) DTaP/Tdap/Td vaccine (1 - Tdap) [place] Start: 1984 Urine microalbumin profile DTAP,TDAP,TD (1 - Tdap) [facility] Start: 07-09-1983 [facility]IT[facility] Start: 07-09-1983 HIV SCREENING HIV SCREENING [facility] Start: 1980 HIV screening HIV screen [place], [place] Start: 07-09-1971 Pneumococcal 0-64 ye ars Vaccine (1 of 1 - PPSV23) Pneumococcal 0-64 years Vaccine (1 of 1 - PPSV23) [place] Start: 1970 COVID-19 VACCINE (1) COVID-19 VACCIN E (1) [facility] Start: 1965 Creatinine [facility] [place] Start: 1965 Potassium monitoring Potassium monit [place], [place] End: 11-06-2019 COVID-19 COVID-19 Lab Routine One Time for 1 Occurrences starting 11/06/2019 until 11/06/2019 [place] Comment on above: One Time for 1 Occur rences starting 11/06/2019 until 11/06/2019 End: 07-06-2022 Ct cervical spine w/o contrast material CT CERVICAL SPINE WO IVCON Radiology Routine Spinal stenosis of cervical region 1 Occurrences starting 06/06/2021 until 07/06/2022 [facility] Work Phone: Comment on above: 1 Occurrences starti ng 06/06/2021 until 07/06/2022 Oxygen therapy [[facility] Data Set] Initiate Oxygen Therapy Protocol Respiratory Care Routine Daily until discontinued starting 11/10/2019 [place], [place] Comment on above: Daily until disconti nued starting 11/10/2019 Phase I & II - meter ed glucose Phase I & II - metered glucose Point of Care Testing Routine As Needed until discontinued starting 11/10/2019 [place] Comment on above: As Needed until disc ontinued starting 11/10/2019 End: 07-06-2022 Radex spine cervical 4 or 5 views XR CERV OTHER 4V AP/LAT/FLX/EXT Radiology Routine Cervical spondylosis with myelopathy 1 Occurrences starting 06/06/2021 until 07/06/2022 [facility] Work Phone: Comment on above: 1 Occurrences starti ng 06/06/2021 until 07/06/2022 Immunizations Immunization Date Immunization Notes Care Provider Clem ortega 11-04-2019 influenza, seasonal, injectable Colten Parra Work Phone: [facility] [address] [place] Work Phone: 01-21-2019 influenza virus vaccine, unspecified formulation [address] 01-21-2019 influenza, injectabl e, quadrivalent, contains preservative [place] 01-02-2019 influenza, injectabl e, quadrivalent, contains preservative Colten G Fidel Work Phone: [facility] Work Phone: 12-02-2016 influenza, injectabl e, quadrivalent, preservative free [address] Payers Date Payer Category Payer Worker's Compensation 2021 Unknown [employer] PPO [id number] 2021-Present [phone] [address] [place] [address] PPO [id number] 2018 Unknown [place] P PO xxxxxxxxxxxx 2018-Present [address] [place] [address] xxxxxxxxxxxx [id number] 2018 Unknown [place] PO [id number] 2018-Present [address] [place] [address] [id number]. [id number] 2015 Unknown [id number] [id number]. [id number] 1965 Unknown [id number] 2.840.1.727901.3.579.2. 175 1965 Unknown [id number] 2.840.1.898171.3.579.2. 175 1965 Unknown [id number] 2.840.1.203201.3.579.2. 175 1965 Unknown [id number] 2.16840.1.206750.3.579.2. 176 1965 Unknown [id number] 2.16840.1.583225.3.579.2. 176 1965 Unknown [id number] 2.840.1.218314.3.579.2. 176 1965 Unknown [id number] 2.840.1.457758.3.579.2. 176 1965 Unknown [id number] 2.16.840.1.743619.3.579.2. 176 1965 Unknown [id number] 2.16.840.1.924064.3.579.2. 176 1965 Unknown [id number] 2.16.840.1.182233.3.579.2. 176 1965 Unknown [id number] 2.16.840.1.078003.3.579.2. 176 1965 Unknown [id number] 2.16.840.1.578264.3.579.2. 176 1965 Unknown [id number] 2.16.840.1.277394.3.579.2. 593 1965 Unknown [id number] 2.16.840.1.688669.3.579.2. 593 1965 Unknown [id number] 2.16.840.1.649602.3.579.2. 593 1965 Unknown [id number] 2.16.840.1.620299.3.579.2. 593 1965 Unknown [id number] 2.16.840.1.341847.3.579.2. 593 1965 Unknown [id number] 2.16.840.1.431140.3.579.2. 593 1965 Unknown [id number] 2.16.840.1.224819.3.579.2. 593 1965 Unknown [id number] 2.16.840.1.543363.3.579.2. 593 1965 Unknown [id number] 2.16.840.1.071823.3.579.2. 593 1965 Unknown [id number] 2.16.840.1.661602.3.579.2. 593 1965 Unknown [id number] 2.16.840.1.297453.3.579.2. 593 1965 Unknown [id number] 2.16.840.1.948191.3.579.2. 593 1965 Unknown [id number] 2.16.840.1.200638.3.579.2. 593 1965 Unknown [id number] 2.16.840.1.417564.3.579.2. 196 1959 Unknown [id number] 1959 Unknown [id number] Unknown ANTHEM Social History Date Type Detail Facility Start: 12-08-2018 End: 06-06-2021 Tobacco smoking status MDIS Current every day smoker [facility] Start: 10-30-2018 End: 12-08-2018 Cigarettes smoked current (pack per day) - Reported [facility] Comment on above: 1 ppd; Start: 10-30-2018 End: 12-08-2018 Alcohol intake Yes [facility] Sex Assigned At Not on file [facility] Start: 09-16-2019 End: 06-06-2021 Tobacco use and exposure Never used [employer] Start: 09-16-2019 End: 11-10-2019 Alcohol intake Current drinker of alcohol (finding) [employer] ZAYRA Exposure to SARS-CoV -2 (event) Not sure [facility] Start: 11-02-2019 Alcohol Comment very rare [facility] Start: 06-06-2021 Alcohol intake Ex-drinker (finding) [facility] Start: 1965 Sex Assigned At Male [facility] Clinical Notes 11-18-2020 to 07-31-2022 Telephone Encounter - Charbel Hill RN - 07/04/2021 11:34 AM EDTMegan Interiano MD - 06/06/2021 10:10 AM EDT Note Date & Type Note Facility 07-31-2022 Note CONSULTATION CONSULTATION DATE: 07/31/2022 CHIEF COMPLAINT: Includes severe bilateral lower back pain, bilateral hip pain, worse on the left than the right side. HISTORY: He reports the pain as being 5-7/10 pain. Overall, it is sharp in character, increased with activities such as standing, walking and performing transitioning maneuvers. He feels most comfortable in the semi-recumbent position. Denies any change in bowel and bladder habits or new sensorimotor changes in the lower extremities. He also complains of sensitivity of his skin over his hip and buttock area bilaterally. EXAMINATION: Notable for patient having dysesthesia and hyperesthesia overlying the distribution of the lateral cutaneous branch of the iliohypogastric nerve bilaterally. Patient had no clinical radiculopathy on today's visit. No clinical myelopathy on today's visit. Patient did have severe myofascial spasm of the gluteus medius bilaterally, as well as the erector spinae muscle bilaterally, more so than in the past. He reports his pain is usually worse on the right than the left side, but over the last two weeks or so, he reports having more pain on the left side than the right side. The patient also had a positive bilateral FABERs sign suggestive of hip joint related pain clinically. He had no pain in his lower back when eliciting his FABERs maneuver. RECOMMENDATIONS: Our recommendation is to proceed with a bilateral trigger point injection into his erector spinae muscle today in the office. Of note, status post which, his pain did get improved significantly. I have proceeded with a diagnostic injection of the lateral cutaneous branch of the iliohypogastric nerve under fluoroscopic guidance and bilateral hip films. I have asked him to continue with his current dose of baclofen 10 mg pills, two pills daily p.r.n. and Kinmundy 5 mg b.i.d. p.r.n. As part of providing excellent, safe, comprehensive care, the following was completed at our patient's visit: 1. A medication reconciliation and review to ensure accurate knowledge of current/active medications, including asking our patients to inform us about any [id number] medications or herbal remedies/nutritional supplements/alternative remedies. 2. A review to specifically ensure our patients have had annual screening for: elevated body mass index (BMI, see intake chart for exact total), tobacco use, screening for depression, and screening for unhealthy alcohol use. When screening is concerning, patients are provided with education and the specific recommendation to discuss the concerning health issue and treatment options with their primary care provider. [facility] 06-14-2022 Note CONSULTATION CONSULTATION DATE: 06/14/2022 TO: Dr. Lyly Barcenas CHIEF COMPLAINT: Includes right knee pain, right lower back pain, hip pain. HISTORY: She rates the pain as being 5-7/10 pain, sharp in character, increased with activities such as standing, walking and performing transitioning maneuvers. She is most comfortable in the semi-recumbent position. EXAM: Notable for patient having no clinical radiculopathy or myelopathy involving his lower extremities. Patient did have dysesthesia and hyperesthesia along the distribution of the lateral cutaneous branch of the iliohypogastric nerve, tenderness along the right SI joint, positive right sided Gaenslen's maneuver and positive pelvic rock test on the right side. This is associated with a fair amount of myofascial spasm involving the right gluteus medius muscle and lumbar paravertebral muscles on the right side. IMPRESSION: Our impression is patient with chronic pain secondary to right SI joint dysfunction, myofascial dysfunction, spasm involving the right gluteus medius and lumbar paravertebral muscles. RECOMMENDATIONS: I have recommended the patient start baclofen 10 mg pills, half a pill to one pill t.i.d. and discontinue the tizanidine secondary to ineffectiveness, and we will see the patient back in the office in approximately three months' time or sooner if needed. We did refill his Kinmundy. He takes 5 mg pills, one pill b.i.d. He did report this medicine does improve his quality of life, level of function and sleep pattern. As part of providing excellent, safe, comprehensive care, the following was completed at our patient's visit: 1. A medication reconciliation and review to ensure accurate knowledge of current/active medications, including asking our patients to inform us about any [id number] medications or herbal remedies/nutritional supplements/alternative remedies. 2. A review to specifically ensure our patients have had annual screening for: elevated body mass index (BMI, see intake chart for exact total), tobacco use, screening for depression, and screening for unhealthy alcohol use. When screening is concerning, patients are provided with education and the specific recommendation to discuss the concerning health issue and treatment options with their primary care provider. [facility] 05-08-2022 Note Subjective Patient ID: Ashok Doss is a 56 y.o. male who presents as a new patient referral from [facility] in [place] for acute deep right calf/soleal muscle vein thrombosis post surgery for nondisplaced fracture of the lateral condyle of the right tibia on 03/16/22. This is from a work related fall on 03/01/22. Patient has been started on Eliquis. Blood pressure 134/79, pulse 80, height 1.88 m (6' 2 ), weight 113 kg (250 lb), SpO2 96 %. HPI Patient presenting because of swelling in the right lower extremity. He was diagnosed with thrombosis in the muscle veins on the right side after an injury to the knee area. He is in a knee immobilizer for the time being. He has no history of DVT in the past. Symptoms started about a month ago at least. Ultrasound the first time was negative for DVT. He had chest pain recently but a CTA apparently was done which showed no evidence of thrombosis or any pulmonary embolism. He is currently on anticoagulation. He has no family history of DVT and he has no family history of varicose veins. Review of Systems Constitutional: Negative. Eyes: Negative. Respiratory: Positive for apnea and shortness of breath. Cardiovascular: Positive for leg swelling (rle swelling). Gastrointestinal: Negative. Genitourinary: Negative. Musculoskeletal: Positive for back pain and neck pain. Skin: Negative. Neurological: Negative. Objective There were no vitals taken for this visit. Physical Exam Overweight. Alert oriented to time place and person responds to all questions appropriately. Chest: Clear to auscultation. Cardiovascular system: S1-S2 normal with no murmurs. Abdomen: Soft and lax no masses no tenderness no organomegaly. Upper extremities with normal. Vascular evaluation: Significant edema of the right lower extremity which has an knee immobilizer. Good pulses both lower extremities. No edema in the left lower extremity. Neurological exam: Grossly intact. Assessment/Plan Plan of Action: Plan to continue on anticoagulation until he is fully mobile. Compression stockings 15 -20 mmHg Continue Eliquis 3 month follow up Venous duplex prior No diagnosis found. No orders of the defined types were placed in this encounter. No results found for this or any previous visit (from the past 36 hour(s)). No follow-ups on file. [facility] 03-15-2022 Note CONSULTATION CONSULTATION DATE: 03/15/2022 HISTORY OF PRESENT ILLNESS: This is a pleasant, 56-year-old gentleman, who returns to the clinic status post bilateral RFA of L2, L3 and L4, L5 completed on 02/13/2022. The patient, the day after the procedure, was afforded 100% relief and ongoing 50% relief. On 02/28/2022, the patient slipped on the ice and fell and broke his right tibial plateau. He is scheduled to have surgery tomorrow at Orthopedics. He is currently using crutches and wears a full hinged right lower extremity brace. Using the crutches greatly aggravates his pain, as does resting with his leg elevated. Current medications include Kinmundy 5/325 b.i.d. and tizanidine p.r.n. Patient's REVIEW OF SYSTEMS / PAST MEDICAL HISTORY / ALLERGIES and IMAGES have been reviewed and noted in the chart. PHYSICAL EXAM: VITAL SIGNS: Blood pressure is 154/76. Heart rate is 72. He is 6'2 . No weight was done today. GENERAL IMPRESSION: Pleasant, appropriate, no acute distress. FOCUSED EXAM - BACK: Deferred due to patient being on crutches and non-weight bearing to his right leg. Patient was sitting. Paravertebral muscles are palpated and are taut bilaterally, right greater than left. Deep compression of the right erector spinae reproduces patient's pain symptomatology. MUSCULOSKELETAL: Patient non-weight bearing to right lower extremity. Left lower extremity motor is 5/5. He is ambulating with crutches. NEUROLOGICAL: Radicular sensory is intact. Negative polyneuropathy. DIAGNOSIS: Chronic lower back pain, lumbar spondylosis, lumbar degenerative disc disease. PLAN: The patient will restart the tizanidine at 4 mg q.h.s. The patient shared with me that postoperatively Orthopedics plans on keeping him on Kinmundy 5/325 b.i.d. I do worry that his post-op pain will not be adequately relieved with Kinmundy, and I did encourage the patient to talk with his Orthopedics' office to discuss this. We will see the patient in the office in three months' time unless otherwise indicated. [facility] 01-16-2022 Note CONSULTATION CONSULTATION DATE: 01/16/2022 CHIEF COMPLAINT: Low back pain, right leg pain. HISTORY OF PRESENT ILLNESS: This is a very pleasant, 56-year-old gentleman who is status post diagnostic #2 medial branch block at the level of L2, 3 and L4, 5. This afforded the patient 80+% improvement of the pain. The patient, unfortunately, has a fracture of the fourth metatarsal and was wearing a boot. The boot recently came off. The patient currently takes Kinmundy 5/325 daily, tizanidine 4 mg q.h.s. Activities aggravate the patient's pain. The patient reports standing too long, walking too long, ADLs aggravate the pain. Heat mitigates the patient's pain. Pushing, pulling, lifting aggravate the pain. Laying down mitigates the pain. The patient takes Kinmundy 5/325 one tablet p.o. daily. He finds that this is not helping at this point and with the change in weather. The patient also takes tizanidine 4 mg h.s. The patient's PAST MEDICAL HISTORY / SURGICAL HISTORY / REVIEW OF SYSTEMS are noted on the chart, along with the MEDICATION LIST / ALLERGIES and RADIOLOGICAL IMAGES. PHYSICAL EXAM: Upon physical examination, this is a pleasant, cooperative gentleman who is accompanied by his . VITAL SIGNS: Stable at 139/74 with a heart rate of 59. At a height of 6'2 , the patient weighs 122 kg. HEAD: Atraumatic, normocephalic, non-guarded. HEART: No orthopnea. LUNGS: Non-labored breathing. ABDOMEN: Soft, non-distended. BACK: Tenderness along the posterior elements bilaterally upon extension, compression, direct palpation. EXTREMITIES: No pedal edema. MUSCULOSKELETAL: Intact in the lower extremities at 5/5. NEUROLOGICALLY: The patient is intact. PSYCHIATRICALLY: Affect is appropriate. DIAGNOSIS: Lumbar degenerative disc disease, lumbar spondylosis, lumbar neuritis, fracture of the fourth metatarsal left foot. PLAN: We will increase the Kinmundy to 5/325 b.i.d. The patient will also start aquatic program. We will schedule the patient for a rhizotomy, radiofrequency ablation of the dorsal median rami at the level of L2, 3 and L4, 5; given that the patient has had successful medial branch blocks on two separate occasions. CC: Elisabeth Galvan NP [facility] 12-28-2021 Note CONSULTATION CONSULTATION DATE: 12/28/2021 This is a pleasant 56-year-old gentleman who returned to the clinic status post #1 bilateral MBB of L2, L3 and L4, L5, completed on 12/12/2021. The patient was afforded 80% relief for one week. Following the first week his pain improvement remained a 60%. He is very pleased with the results and it afforded him the opportunity to be more active in the hard, around the house and at work with less pain. His endurance for standing and walking has increased. He currently has a boot on his left foot, really not a foot fracture. He feels that wearing the boot has caused increased stiffness in his back. Medications include Kinmundy 5/325 q. day p.r.n. and Tizanidine 4 mg q.h.s. REVIEW OF SYSTEMS, PAST MEDICAL HISTORY, ALLERGIES AND IMAGES: Have been reviewed and noted in the chart. PHYSICAL EXAM: VITAL SIGNS: Blood pressure 131/78, heart rate is 73, temperature is 97.8. Height is 6'2 , weighs 122 kg. GENERAL APPEARANCE: Pleasant, appropriate, in no acute distress. FOCUSED EXAM: BACK: Range of motion is guarded in lateral rotation and flexion/extension. Paravertebral muscles are taut but non-spasmodic. Spinoaxial pain is reproduced upon deep compression along the posterior elements of the lumbar facets of L2, L3 and L3, L5 indicative of ill facet arthropathy, lumbar spondylosis. Tarah's point is nontender bilaterally. MUSCULOSKELETAL: Motor is intact, 4 out of 5 bilaterally. The patient has limping antalgic gait secondary to his left foot boots. NEUROLOGICAL: Neurological: Patchy hypesthesia bilateral upper extremities to the level of the elbows. Lower extremity radicular sensory is intact. Neck exam: Range of motion is guarded in lateral rotation and flexion/extension, trapezius muscles are taut. Compression along the posterior elements of the facets reproduces the patient's reported neck symptoms. DIAGNOSIS: Lumbar spondylosis, lumbar degenerative disk disease, chronic lower back pain and cervicalgia. PLAN: We will refill his tizanidine at 4 mg q.h.s. We will proceed to pre-authorize for a #2 bilateral MBB of L2, L3 and L4, L5 and encouraged him to continue with his heat application, heat rub as well as his vitamin regimen. The patient does agree to move forward and be followed up in the clinic thereafter. [facility] 10-26-2021 Note CONSULTATION CONSULTATION DATE: 10/26/2021 HISTORY OF PRESENT ILLNESS: This is a pleasant, 56-year-old gentleman who returns to the clinic for a three month follow up for his chronic lower back pain. He was last seen on 07/12/2021 which, at that time, it was decided we would continue to medically manage him until his one year anniversary date that he will be able to be cleared off of his Brilinta. That date is November 18, which is one year since his [place]. He has not been able to gain approval to be off the Brilinta for interventional procedures. He is interested, however, in moving forward with procedures once the Brilinta is discontinued. He has seen Neurosurgery at the [facility] and they would like to do a cervical fusion from C4-T2. The patient is reluctant to move forward with that at this time, seeing that he needs to be nicotine free for six weeks. Patient is a smoker and feels that he is unable to be compliant with their request. Activities that aggravate his lower back pain today are the evening hours and physical activity. He does use heat which mitigates his pain. With activity, his pain goes up to a 4/10 and is described as sharp. He has had a laminectomy at L5-S1 in the past. His pain is mainly to his right lower back and has occasional radiating pain down his posterior aspect of his right leg to the level of the knee. Current medications include Tylenol #3, tizanidine 4 mg q.h. s. and the Brilinta. The patient feels Tylenol #3 is minimally helpful to the pain, but is inquiring about possibly something different. He denies any new radicular pain or vasomotor changes. Patient's REVIEW OF SYSTEMS / PAST MEDICAL HISTORY / ALLERGIES and IMAGES have been reviewed and they are noted on the chart. PHYSICAL EXAM: VITAL SIGNS: Blood pressure is 143/78. Heart rate is 89. Temperature is 97.7. He is 6'2 , weighs 121 kg. GENERAL APPEARANCE: Pleasant, appropriate, no acute distress. FOCUSED EXAM - BACK: Range of motion is guarded in lateral rotation and flexion/extension, right greater than left. Reproduction of spinal axial pain to direct compression along the posterior elements of the lumbar facets of L2, L3 and L4, L5. Fullness is palpated and pain does not radiate below the knee. Findings are consistent with facet arthropathy, lumbar spondylosis. Paravertebral muscles are non-spasmodic. Tarah's point is non-tender. FABERs is negative. MUSCULOSKELETAL: Bilateral lower extremity motor is 4/5. Good muscle tone and he ambulates with a steady gait. NEUROLOGICAL: Patchy hypoesthesia noted along the S1 dermatome to the right, to the level of the knee. +1 bilateral patellar and Achilles reflexes. IMPRESSION: Lumbar degenerative disc disease, lumbar spondylosis, spinal axial lower back pain and post laminectomy. PLAN: We will look to move forward with #1 bilateral MBB of L2, L3 and L4, L5 after November 26, which is 7 days post discontinuing of his Brilinta. Education materials were given to the patient regarding MBB and rhizotomy series. We will discontinue Tylenol #3 and start him on Kinmundy 5/325 daily p.r.n. Vitamin importance and nutrition were discussed as well. Patient agrees to move forward with this plan and be followed up in the clinic post his #[address] [facility] 07-04-2021 Miscellaneous Notes Neuro SPINE CARE COORDINATION QUICK NOTE Called patient to discuss scheduling for surgery. States he is not ready to schedule but will call back when he is. Also advised it best for recovery to work on quitting smoking. documented in this encounter [facility] 06-06-2021 Note HNO ID: [id number] Author: Megan Interiano MD Service: ? Author Type: Physician Type: Progress Notes Filed: 06/15/2021 4:22 PM Note Text: SPINE SURGERY NEW PATIENT PCP: No primary care provider on file. REFERRING PROVIDER: Ashia Bermeo APRN. CNP SUBJECTIVE HISTORY OF PRESENT ILLNESS: Ashok Doss is a 55 year old male presenting alone. CHIEF COMPLAINT: mid back pain, LE weakness Previously seen by Ashia Bermeo CNP regarding subjective weakness in the arms and legs. Hx of previous lumbar laminectomy approx. 20 years ago in [place]. Did well post-op with resolution of sciatica. Has had chronic low back pain. Over the last 6 months he describes episodes of his legs feeling like rubber . Would occur randomly. Over the last 3 months he's started to experience this in the arms as well. 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 Neck pain as well. Denies any radiating pain into the arms or legs. No numbness in the hands, or declining dexterity. He does feel unsteady on his feet. No falls. No bowel or bladder changes. ? DURATION OF SYMPTOMS: Greater Than 6 Months PAIN EVALUATION 06/06/2021 1013 Pain Level: 4 Pain Location: ? neck and shoulders Description: Dull;Aching Duration Amount of Time: 5 Duration Units: Months Frequency: Continuous Intervention/Comfort measure: Medication Comments: pain management Pain Radiation: neck and back pain Aggravating Factors: overhead activities Alleviating Factors: None Pain Ratio: NA DERMATOMAL DISTRIBUTION: Not applicable AMBULATORY STATUS: Independent Community Distances ANTIPLATELET OR ANTICOAGULATION STATUS: No PREVIOUS CONSERVATIVE TREATMENTS: -Medrol dose pack -NSAIDS- intolerant on Brilinta -Codeine - PRN -Tizanidine PREVIOUS SPINAL SURGERY: SURGERY #1: lumbar laminectomy about 20 years ago in [place] There is no problem list on file for this patient. No past medical history on file. No past surgical history on file. No family history on file. Social History Tobacco Use - Smoking status: Not on file - Smokeless tobacco: Not on file Substance Use Topics - Alcohol use: Not on file - Drug use: Not on file ALLERGIES No Known Allergies MEDICATIONS: acetaminophen-codeine (TYLENOL-COD #3) 300-30 mg per tablet Take 1 tablet by mouth twice daily as needed. aspirin, enteric coated (ASPIRIN, ENTERIC COATED) 81 mg EC tablet Take by mouth q 24 HR. atorvastatin (LIPITOR) 80 mg tablet Take 80 mg by mouth once daily. divalproex DR (DEPAKOTE) 125 mg EC tablet Take 125 mg by mouth once daily. lisinopril-hydroCHLOROthiazide (PRINZIDE,ZESTORETIC) 20-12.5 mg per tablet Take 1 tablet by mouth once daily. metoprolol trujillo-hydrochlorothiaz 25-12.5 mg Tb24 Take by mouth. nitroglycerin sublingual (NITROQUICK) 0.4 mg SL tablet USE 1 UNDER THE TONGUE EVERY 5 MIN FOR CHEST PAIN. MAX 3 TABS IN 15 MIN. CALL 911 IF PAIN PERSISTS. BRILINTA 90 mg tablet Take 90 mg by mouth twice daily. REVIEW OF SYSTEMS: GENERAL: No weight loss or malaise MUSCULOSKELETAL: See HPI NEURO: No history of headaches, syncope, paralysis, seizures or tremors Patient Entered Questionnaires Spine Questions 04/17/2021 06/04/2021 Pain Location: Upper back/torso Upper back/torso Pain Duration: More than 5 years 6 months - 1 year Pain over last 6 months: At least half the days in the past 6 months At least half the days in the past 6 months Symptoms from neck/cervical spine: Yes Yes Employment Status: Working now Working now Involved in law suit/legal claim: No No Neck Questionnaires 04/17/2021 06/04/2021 Benzel Modified FRANK Score 15 (A lower score indicates increased pain and issues.) 16 (A lower score indicates increased pain and issues.) PROMIS Score Percentiles Physical Health 04/17/2021 06/04/2021 Physical Function Percentile 21* 21* Sleep Percentile 27* 27* Fatigue Percentile 24* 14 Pain Interference Percentile 12 12 PROMIS SOCIAL ROLE SCORE 04/17/2021 06/04/2021 Social Role Satisfaction Percentile 14 14 PROMIS Global Health Scale 04/17/2021 Physical Health Percentile 15 Mental Health Percentile 63 Percentiles provide an indication of how the patient's score ranks in relation to the general population. Higher percentile rankings indicate better function/quality of life. 50th percentile is the average of the general population and indicates half of respondents had a worse score. Depression Screening: PHQ-9 04/17/2021 06/04/2021 Score 8 3 PHQ-9 Self-harm Question 04/17/2021 06/04/2021 Thoughts that you would be better off , or of hurting yourself in some way 0 0 PHQ-9 Self-Harm (Item 9) response options: 0 Not at all 1 Several days 2 More than half the days 3 Nearly every day PHQ-9 Levels: 0-4 No to mild depression 5-9 Mild depression 10-14 Moderate depression 15-19 Moderately severe depression 20-27 Severe depression OBJECTIVE: PH (more content not included)... [facility] 06-06-2021 History of Present illness Narrative Images from the original note were not included. SPINE SURGERY NEW PATIENT PCP: No primary care provider on file. REFERRING PROVIDER: Ashia Bermeo APRN. [facility] SUBJECTIVE HISTORY OF PRESENT ILLNESS: Ashok Doss is a 55 year old male presenting alone. CHIEF COMPLAINT: mid back pain, LE weakness Previously seen by Ashia Bermeo CNP regarding subjective weakness in the arms and legs. Hx of previous lumbar laminectomy approx. 20 years ago in [place]. Did well post-op with resolution of sciatica. Has had chronic low back pain. Over the last 6 months he describes episodes of his legs feeling like rubber . Would occur randomly. Over the last 3 months he's started to experience this in the arms as well. 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 Neck pain as well. Denies any radiating pain into the arms or legs. No numbness in the hands, or declining dexterity. He does feel unsteady on his feet. No falls. No bowel or bladder changes. DURATION OF SYMPTOMS: Greater Than 6 Months PAIN EVALUATION 06/06/2021 1013 Pain Level: 4 Pain Location: neck and shoulders Description: Dull;Aching Duration Amount of Time: 5 Duration Units: Months Frequency: Continuous Intervention/Comfort measure: Medication Comments: pain management Pain Radiation: neck and back pain Aggravating Factors: overhead activities Alleviating Factors: None Pain Ratio: NA DERMATOMAL DISTRIBUTION: Not applicable AMBULATORY STATUS: Independent Community Distances ANTIPLATELET OR ANTICOAGULATION STATUS: No PREVIOUS CONSERVATIVE TREATMENTS: -Medrol dose pack -NSAIDS- intolerant on Brilinta -Codeine - PRN -Tizanidine PREVIOUS SPINAL SURGERY: SURGERY #1: lumbar laminectomy about 20 years ago in [place] There is no problem list on file for this patient. No past medical history on file. No past surgical history on file. No family history on file. Social History Tobacco Use Smoking status: Not on file Smokeless tobacco: Not on file Substance Use Topics Alcohol use: Not on file Drug use: Not on file ALLERGIES No Known Allergies MEDICATIONS: acetaminophen-codeine (TYLENOL-COD #3) 300-30 mg per tablet Take 1 tablet by mouth twice daily as needed. aspirin, enteric coated (ASPIRIN, ENTERIC COATED) 81 mg EC tablet Take by mouth q 24 HR. atorvastatin (LIPITOR) 80 mg tablet Take 80 mg by mouth once daily. divalproex DR (DEPAKOTE) 125 mg EC tablet Take 125 mg by mouth once daily. lisinopril-hydroCHLOROthiazide (PRINZIDE,ZESTORETIC) 20-12.5 mg per tablet Take 1 tablet by mouth once daily. metoprolol trujillo-hydrochlorothiaz 25-12.5 mg Tb24 Take by mouth. nitroglycerin sublingual (NITROQUICK) 0.4 mg SL tablet USE 1 UNDER THE TONGUE EVERY 5 MIN FOR CHEST PAIN. MAX 3 TABS IN 15 MIN. CALL 911 IF PAIN PERSISTS. BRILINTA 90 mg tablet Take 90 mg by mouth twice daily. REVIEW OF SYSTEMS: GENERAL: No weight loss or malaise MUSCULOSKELETAL: See HPI NEURO: No history of headaches, syncope, paralysis, seizures or tremors Patient Entered Questionnaires Spine Questions 04/17/2021 06/04/2021 Pain Location: Upper back/torso Upper back/torso Pain Duration: More than 5 years 6 months - 1 year Pain over last 6 months: At least half the days in the past 6 months At least half the days in the past 6 months Symptoms from neck/cervical spine: Yes Yes Employment Status: Working now Working now Involved in law suit/legal claim: No No Neck Questionnaires 04/17/2021 06/04/2021 Benzel Modified FRANK Score 15 (A lower score indicates increased pain and issues.) 16 (A lower score indicates increased pain and issues.) PROMIS Score Percentiles Physical Health 04/17/2021 06/04/2021 Physical Function Percentile 21* 21* Sleep Percentile 27* 27* Fatigue Percentile 24* 14 Pain Interference Percentile 12 12 PROMIS SOCIAL ROLE SCORE 04/17/2021 06/04/2021 Social Role Satisfaction Percentile 14 14 PROMIS Global Health Scale 04/17/2021 Physical Health Percentile 15 Mental Health Percentile 63 Percentiles provide an indication of how the patient's score ranks in relation to the general population. Higher percentile rankings indicate better function/quality of life. 50th percentile is the average of the general population and indicates half of respondents had a worse score. Depression Screening: PHQ-9 04/17/2021 06/04/2021 Score 8 3 PHQ-9 Self-harm Question 04/17/2021 06/04/2021 Thoughts that you would be better off , or of hurting yourself in some way 0 0 PHQ-9 Self-Harm (Item 9) response options: 0 Not at all 1 Several days 2 More than half the days 3 Nearly every day PHQ-9 Levels: 0-4 No to mild depression 5-9 Mild depression 10-14 Moderate depression 15-19 Moderately severe depression 20-27 Severe depression OBJECTIVE: PHYSICAL EXAM BP 148/71 Pulse 62 Resp 16 Ht 188 cm (6' 2 ) Wt 116.8 kg (257 lb 8 oz) SpO2 98% BMI 33.06 kg/m GENERAL APPEARANCE: Well nourished, well developed, and no apparent distress. NEURO PSYCH: Patient oriented to person, place, and time. Mood pleasant. Benign affect. MUSCULOSKELETAL VISUAL INSPECTION CERVICAL: WNL THORACIC: WNL LUMBAR: WNL PALPATION: SPINOUS PROCESS: No pain. PARASPINALS: No pain. MUSCLE BULK: Normal and symmetrical in the upper & lower extremities. MUSCLE TONE: Normal. MOTOR: 5/5 in all muscle groups. SENSORY: Normal sensory exam GAIT: Unsteady with tandem REFLEXES: +2 to bilateral U/L extremities. LONG TRACT SIGNS: No Hoffmans. STRAIGHT LEG TEST: Ipsilateral: Negative. Contralateral: Negative. L'HERMITTES SIGN: Negative. Historically with neck extension and overhead activities at work he experiences symtoms. SPURLING'S TEST: Negative. NEURO TESTS: None DATA REVIEW Imaging and outside records independently reviewed ASSESSMENT/PLAN (M47.12) Cervical spondylosis with myelopathy (primary encounter diagnosis) (R26.89) Loss of balance Staff note: I reviewed the information obtained and documented by the physician blood donor unit assistant. I examined the patient and evaluated all available films and pertinent documents. We discussed the case and I agree with the plans as outlined in this note. As above, Ashok Doss is a 55 year old male with history of lumbar laminectomy about 20 years ago in [place] who presents for evaluation of mid back pain and LE weakness. Over the last 6 months he describes episodes of his legs feeling like rubber . Would occur randomly. Over the last 3 months he's started to experience this in the arms as well. 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 Neck pain as well. Denies any radiating pain into the arms or legs. No numbness in the hands, or declining dexterity. He does feel unsteady on his feet. No falls. No bowel or bladder changes. Physical exam demonstrates as above. MRI Cerv 05/05/21 reviewed and discussed showing moderate to severe degenerative changes with central and foraminal stenosis at multiple levels. At this time, after discussing the patient's symptoms and reviewing their imaging, I believe the patient is a good candidate for surgical intervention. I discussed modalities of operative intervention and rationale for C4-T2 laminectomy and fusion, to address neck pain and rubber sensation, however I also discussed that there is a possibility their symptoms may not be fully addressed or relieved by surgery. Prior to surgery, I would like to obtain CT Cerv to plan for surgery and XR Cerv flex/ext to assess for anterolisthesis. Patient expressed understanding. They were counseled on perioperative routine and surgical plan, and all of their questions were addressed to their understanding prior to electing for surgery. I answered all the patient's questions in detail and addressed their concerns; patient showed clear understanding prior to electing for surgery. I also reviewed the risks, benefits, alternatives, and recovery of surgery. Post operative restrictions include no heavy lifting, bending, or twisting. We discussed the minimum criteria for elective surgery: A. Imaging fits with history and examination and has surgical correctable findings B. Conservative modalities have been trialed in a meaningful way that have failed to provide relief C. The pain is significant enough to interfere with QOL and undergoing an irreversible surgical procedure makes sense to the patient from a symptom severity standpoint A and B were confirmed by me, C was confirmed by the patient. With this in mind it is reasonable to proceed with: C4-T2 laminectomy and fusion The risks and benefits of surgery were discussed in very specific detail with the patient. Our discussion included but is not limited to the following: DVT, PE, and/or . Cardiovascular, pulmonary, or other visceral organ complication as discussed by his preoperative clearance team and/or anesthesia. I discussed the nature of the surgery the patient is undergoing. I discussed how a cervical spine surgery is different from a lumbar spine surgery in terms of being at spinal cord level. With this in mind, we discussed the risk of spinal cord injury. We discussed the risk of spinal cord injury from either positioning, maneuvering/reduction, contusion, or any other reason for spinal cord injury whether immediately evident or not evident during surgery. We discussed the clinical manifestations of a complete spinal cord injury resulting in tetraplegia, and depending upon the level either ventilator-dependent status or . We discussed that spinal cord injury may be incomplete and discussed the various manifestations of incomplete spinal cord injury. Vertebral artery injury was discussed, including a unilateral arterial injury that may result in excessive blood loss, and/or postoperative stroke, and the clinical manifestations of postoperative stroke were described. We discussed the risk of bilateral vertebral artery injury and that this may result in . We discussed the risk of pseudoarthrosis. We discussed the risk of C5 nerve root palsy and described the clinical entity of C5 nerve root palsy. We discussed hardware complications, such as hardware failure, screw breakage, shashank breakage, hardware pullout, neurological injury resulting from hardware placement, and/or need for further surgery resulting from hardware complication or pseudoarthrosis or need for further surgery due to any other reason. We discussed the risk of adjacent segment breakdown whether clinically symptomatic or not, and the potential need for further surgery due to adjacent segment breakdown. We discussed myelopathy and the natural history of myelopathy in detail. We discussed that halting symptoms is more predictable than improving symptoms here, and we discussed how that pertained to the patient's particular clinical presentation. We discussed epidural hematoma, and potential for complete and/or partial spinal cord injury from a compressive epidural hematoma, and we discussed the various techniques use to mitigate this risk. We discussed the risk of infection, including superficial infection and/or deep infection that may or may not result in compressive epidural abscess and may or may not result in complete or incomplete spinal cord injury, and discussed the various techniques used to mitigate this risk. We discussed wound complications in the setting of posterior cervical surgery, we discussed long-term and/or permanent pain especially interscapular pain as related to posterior cervical surgery. We had a very lengthy discussion regarding these risks, positives and breaks were taken for the patient to absorb the information as well as to voiced their understanding of the information. The patient demonstrated excellent understanding of the risks, potential complications, and/or potential benefits of surgery. Appropriate time was given for the patient to ask questions. The patient's questions were all answered to their stated satisfaction. No guarantees were offered nor implied regarding final outcome and/or presence of or lack thereof complication as related to the surgery and/or perioperatively. Plan: 1. Plan for C4-T2 laminectomy and fusion 2. Patient would like to push surgery out until January 2022 3. Advised to monitor symptoms for exacerbation 4. No injections or chiropractic manipulation of cerv or thoracic spines 5. XR Cerv flex/ext 6. CT Cerv 7. Follow up prior to surgery Scribe Attestation: By signing my name below, I, Andrea Kalout, attest that this documentation has been prepared under the direction and in the presence of Megan Interiano MD. Electronically Signed:Andrea lawanda Elder, June 06, 2021 10:51 AM I agree with the Chief Complaint, ROS, and Past Histories independently gathered by the clinical wind farm support specialist and the remaining scribed note accurately describes my personal service to the patient. Staff note: 1. PCSM, plan for C4-T2 fusion and decompression, RBAEO reviewed in comprehensive detail, all questions answered to stated satisfaction Megan Interiano MD documented in this encounter [facility] 04-24-2021 Note HNO ID: [id number] Author: Ashia Bermeo APRN.PAPER CONE GRADER Service: ? Author Type: Nurse Practitioner Type: Progress Notes Filed: 04/24/2021 3:14 PM Note Text: SPINE SURGERY OUTPATIENT CONSULT SERVICE DATE: 04/24/2021 PCP: No primary care provider on file. REFERRING PROVIDER: SELF Consult requested for an opinion regarding the evaluation and treatment of weakness. My final impression and recommendations will be communicated back to the requesting physician by way of the shared medical record or letter via US mail. SUBJECTIVE Ashok Doss is a 55 year old male presenting with spouse. CHIEF COMPLAINT: Mid back pain, Weakness HISTORY OF PRESENT ILLNESS Hx of lumbar laminectomy approx. 20 years ago in [place]. Did well post-op with resolution of sciatica. C/o mid back pain x4 months. Notes subjective weakness in bilateral lower extremities, feel like rubber per patient. Subjective arm weakness, no impaired dexterity. Notes balance instability, no falls. Denies any loss in bowel/bladder control. Conservative Management -Medrol dose pack -NSAIDS- intolerant on Brilinta -Codeine- PRN -Tizanidine PRECIPITATING EVENT: None DURATION OF SYMPTOMS: Greater Than 3 Months PAIN EVALUATION 04/24/2021 1421 Pain Level: 3 Pain Location: Back Description: Aching;Tingling Duration Amount of Time: 30 Duration Units: Years Frequency: Continuous Intervention/Comfort measure: Heat;Medication DERMATOMAL DISTRIBUTION: Not applicable AMBULATORY STATUS: Independent Community Distances ANTIPLATELET OR ANTICOAGULATION STATUS: Yes Previous [place] PREVIOUS SPINAL SURGERY: SURGERY #1: L5-S1 Laminectomy in [place] approx. 20 years ago There is no problem list on file for this patient. No past medical history on file. No past surgical history on file. No family history on file. Social History Tobacco Use - Smoking status: Not on file - Smokeless tobacco: Not on file Substance Use Topics - Alcohol use: Not on file - Drug use: Not on file ALLERGIES No Known Allergies MEDICATIONS: acetaminophen-codeine (TYLENOL-COD #3) 300-30 mg per tablet Take 1 tablet by mouth twice daily as needed. aspirin, enteric coated (ASPIRIN, ENTERIC COATED) 81 mg EC tablet Take by mouth q 24 HR. atorvastatin (LIPITOR) 80 mg tablet Take 80 mg by mouth once daily. divalproex DR (DEPAKOTE) 125 mg EC tablet Take 125 mg by mouth once daily. lisinopril-hydroCHLOROthiazide (PRINZIDE,ZESTORETIC) 20-12.5 mg per tablet Take 1 tablet by mouth once daily. metoprolol trujillo-hydrochlorothiaz 25-12.5 mg Tb24 Take by mouth. nitroglycerin sublingual (NITROQUICK) 0.4 mg SL tablet USE 1 UNDER THE TONGUE EVERY 5 MIN FOR CHEST PAIN. MAX 3 TABS IN 15 MIN. CALL 911 IF PAIN PERSISTS. BRILINTA 90 mg tablet Take 90 mg by mouth twice daily. REVIEW OF SYSTEMS: PAIN ASSESSMENT: See HPI. GENERAL: Denies fever, chills malaise and weight loss. HEENT: No recent change in vision or hearing. CARDIOVASCULAR: Hypertension and previous [place] RESPIRATORY: Denies SOB, sputum production, and hemoptysis. GI: Denies GI ulcers, inflammatory disease, or liver disease. : Denies change in frequency or urgency, kidney disease, and burning with urination. MUSCULOSKELETAL: Positive for back pain SKIN: Denies rash or itching. PSYCHOLOGICAL: Not reviewed NEURO: Headaches ENDOCRINE: Denies diabetes, thyroid disease. HEMATOLOGY/LYMPHOLOGY: Denies cancer, bleeding or clotting disorders, anemia,and DVT's. ALLERGIC/IMMUNOLOGICAL: Denies risks for infection, or recent MRSA infections. Patient Entered Questionnaires Spine Questions 04/17/2021 Pain Location: Upper back/torso Pain Duration: More than 5 years Pain over last 6 months: At least half the days in the past 6 months Symptoms from neck/cervical spine: Yes Employment Status: Working now Involved in law suit/legal claim: No Neck Questionnaires 04/17/2021 Benzel Modified FRANK Score 15 (A lower score indicates increased pain and issues.) PROMIS Score Percentiles Physical Health 04/17/2021 Physical Function Percentile 21* Sleep Percentile 27* Fatigue Percentile 24* Pain Interference Percentile 12 PROMIS SOCIAL ROLE SCORE 04/17/2021 Social Role Satisfaction Percentile 14 PROMIS Global Health Scale 04/17/2021 Physical Health Percentile 15 Mental Health Percentile 63 Percentiles provide an indication of how the patient's score ranks in relation to the general population. Higher percentile rankings indicate better function/quality of life. 50th percentile is the average of the general population and indicates half of respondents had a worse score. Depression Screening: PHQ-9 04/17/2021 Score 8 PHQ-9 Self-harm Question 04/17/2021 Thoughts that you would be better off , or of hurting yourself in some way 0 PHQ-9 Self-Harm (Item 9) response options: 0 Not at all 1 Several days 2 More than half the days 3 Nearly every day PHQ-9 Levels: (more content not included)... [facility] 04-14-2021 Note HNO ID: [id number] Author: Sonja Moser PA-C Service: ? Author Type: Physician Fruit Grader Type: Progress Notes Filed: 04/14/2021 3:29 PM Note Text: Per Triage: Ashok Doss is a 55 year old male that requests evaluation of spine. Per review, they have symptoms of back pain, neck pain, weakness, tingling in legs. Prior spine surgery: Several years ago (20) at a [facility] CMT: Muscle relaxer Studies (Reports unless indicated) MRI thoracic spine report 03/02/21: Multilevel disc herniation greatest at T6-7, T7-8 where there is moderate central canal stenosis Cervical xrays report 03/02/21: Moderate -marked degenerative changes at C5-6 and C6-7 Disposition: Based on triage, recommend patient be scheduled with surgical [facility] for eval. Potential need for cervical MRI pending eval. Please make sure patient imaging is available for review. Sonja Moser PA-C [facility] 04-12-2021 Note HNO ID: [id number] Author: Macario Garcia Service: ? Author Type: ? Type: Progress Notes Filed: 04/14/2021 3:29 PM Note Text: Patient name: Ashok Doss Are you being referred by a [place] for Spine Health Provider or Pain Management Provider at [facility]? No If answer is YES please schedule directly with surgeon, triage does not need to be completed. Is this a self-referral No If not, who is the Referring Provider Dr. Compa Constantino Is this a 2nd opinion, have you been offered surgery by another surgeon? No MRI/CT/myelogram within 12 months? Yes If NO , please refer to medical spine or PCP to complete above imaging, triage does not need to be completed If YES,? please ask for the name/address of the facility where the MRI/CT/myelogram was completed: [facility] Address: [address] [id number] MRI/CT/myelogram viewable in Epic: No If not, please provide [phone] to fax in imaging reports for review. Also, please inform patient to hand carry imaging disc to appointment. XR (spine) within 12 months: No If YES,? please ask for the name/address of the facility where the XR was completed: No Requested provider (First and Last name): N/A Are you interested in a virtual visit if offered? No 1. Where are you having symptoms related to this visit? Yes Back pain Yes Leg pain No Arm pain No Neck pain Yes 2. Are you having any of the following symptoms: Difficulty walking No Numbness No Weakness Yes Trouble using your hands? No Tingling sensations in Legs 3. Have you had any injections or physical therapy in the last 12 months? No If YES then please ask for the name/address of the facility where the injections and/or physical therapy was completed No Have you tried any other kinds of non-surgical treatments in the last 12 months? (For example: NSAIDS, muscle relaxants, analgesics, oral steroids, Chiropractor, Acupuncture): Yes muscle relaxants, 4. Are you currently taking daily prescribed narcotic medications for your current symptoms (For example Oxycodone, Hydrocodone, Tramadol, Morphine, Other)? No 5. Have you had previous spinal surgery for this same symptoms? Yes If YES? please ask for the name of facility/address of where the surgery was completed: Several years ago (20) at a [facility] Could not recall any additional information at the time of the call Additional Comments [phone] [facility] 11-20-2020 Note Send Summary: Discharge Summary Providers: Provider RoleProvider Name PrimaryRequired, No Pcp ConsultingJosé Miguel Posey ConsultingMoRachel barry ReferringRequired, No Pcp AttendingRachel Stacy Note Recipients: Rachel Stacy MD - [id number] [preferred] Required, No Pcp, Discharge Summary: Admission Date: .18-Nov-2020 18:57:00 Discharge Date: 20-Nov-2020 Attending Physician at Discharge: Rachel Stacy Admission Reason: Inferior Wall STEMI(1) Final Discharge Diagnoses: Acute inferior ST elevation [place]. Procedures: Left heart Catheterization, selective coronary angiography, left ventriculography, LV ao pullback, PCI and drug-eluting stent to the distal mid RCA, selective right common femoral angiography, Angio-Seal deployment. Condition at Discharge: stable Disposition at Discharge: Home Vital Signs: T PRBPSpO2 [id number]% Date/Time11/20 11: 11: 20: 11: 11:20 Range(36.8C - 37C ) (70 - 87 ) (17 - 28 ) (132 - 165 )/ (66 - 82 ) (94% - 99% ) Highest temp of 37 C was recorded at 11/20 7:45 Date: Weight/Scale Type:Height: 18-Nov-2020 23:02256.7 kg 188 cm Physical Exam: Patient is alert oriented x3 no jugular venous distention no carotid bruit no icterus lungs are clear heart sounds are regular without murmur rub or gallop abdomen is nontender extremities show no edema right groin has minimal tenderness to deep palpation distal pulses are strong to palpation patient is ambulated without difficulty. Skin shows no petechia or rash. Hospital Course: Patient presented with acute inferior ST segment elevation myocardial infarction. Underwent emergent coronary angiography with PCI and stenting of the totally occluded distal mid RCA with excellent angiographic results. Synergy drug-eluting stent was used. Stent size was 3.5 x 16 mm. LV ejection fraction was normal. Nonflow limiting disease 20 to 30% of the left system, 50% smooth mid LAD stenosis 20% proximal RCA disease. Unremarkable postprocedure course, in the cardiac catheterization laboratory patient had transient bradycardia and nonsustained ventricular tachycardia. Patient is feeling well, hemodynamics are stable, lungs are clear heart sounds are regular without murmur rub or gallop abdomen is nontender right groin is soft and nontender distal pulses are symmetric and palpable neurologically he is alert oriented x3 grossly nonfocal. I discussed with him post PCI care, I request that he stay off work for 4 weeks. He needs dual antiplatelet therapy, significance of which was discussed, the potential side effect of Brilinta i.e. shortness of breath was discussed, patient understands that he should not stop the medication without getting a substitute which would be clopidogrel starting with a 600 mg load. He lives about an hour away, and will be seeking a pillow filler closer to home, but will be seen at [facility] with me within 1 week to go over additional questions that may arise. He says that he will need some paperwork filled out as well. Nicotine cessation was discussed, and encouraged. Discharge medications will include aspirin Brilinta 90 mg twice daily atorvastatin 80 mg daily, metoprolol tartrate 25 mg p.o. twice daily, Protonix 40 mg daily for about 4 to 6 weeks, sublingual nitroglycerin as needed and a NicoDerm patch. Discharge time Discharge Information and Continuing Care: Lab Results - Pending: None I have reviewed these laboratory results: Troponin I, Serum Trending View [id number] 21:03:00 19-Nov-2020 13:00:00 19-Nov-2020 05:23:00 19-Nov-2020 00:54:00 Lab Comment:Called- RB to Shelia GOODMAN , 11/19/2020 21:43 Called- RB to Michaelle David, 11/19/2020 13:36 Called- RB to Omar Muir, 11/19/2020 06:26 Called- RB to Bandar Cesar, 11/19/2020 02:22 Troponin I, Serum10.69 HH 12.77 HH 18.39 HH 17.54 HH Complete Blood Count 19-Nov-2020 05:23:00 ResultValue White Blood Cell Count 22.9 H Red Blood Cell Count 4.42 L HGB 13.5 HCT 41.2 MCV 93 MCHC 32.8 PLT 333 RDW-CV 13.3 Basic Metabolic Panel 19-Nov-2020 05:23:00 ResultValue Glucose, Serum 115 H NA 140 K 3.8 CL 109 H Bicarbonate, Serum 23 Anion Gap, Serum 12 BUN 20 CREAT 0.83 GFR-Non >60 GFR- >60 Calcium, Serum 8.4 L Magnesium, Serum 19-Nov-2020 05:23:00 ResultValue Magnesium, Serum 1.80 PT + INR, Plasma 19-Nov-2020 00:53:00 ResultValue Prothrombin Time, Plasma 12.8 International Normalized Ratio, Plasma 1.1 Coronavirus 2019, Screen Asymptomatic 18-Nov-2020 19:18:00 ResultValue Fluid Source Nasal, Nasopharyngeal Coronavirus 2019,PCR NOT DETECTED Reference Range: Not Detected . This test has received FDA Emergency Use Authorization (EUA) and has been verified by [facility]. This test is only authorized for the duration (more content not included)... [facility] 11-18-2020 Note History of Present I llness: HPI: ASHOK DOSS is a 55 year old Male with past medical history of hypertension, 1 to 1-1/2 pack/day smoking, increased BMI, positive family history of premature coronary artery disease, recently had some upper respiratory symptoms, [place] developed crushing anterior chest discomfort, he called 911, was diaphoretic, EKG showed inferior ST segment elevation myocardial infarction and anterior ST depression. Patient received aspirin Brilinta IV heparin, and was transferred to [facility] emergency department. Code purple called was alerted. Patient was taken to the cardiac catheterization laboratory, where emergent coronary angiography identified total occlusion of the distal mid codominant RCA with aberrant origin, patient underwent PCI and drug-eluting stent to the mid RCA the 100% stenosis was reduced to 0% residual stenosis with ELIECER-3 flow and no dissection. There was mild disease 20% diffuse of the left system LVEF about 55% LVEDP 10 mmHg. Patient had reperfusion arrhythmia and profound bradycardia and ventricular standstill post establishment of ELIECER-3 antegrade flow. There was transient hypotension. He received atropine 1 mg IV, and Bairon-Synephrine, with prompt holiness of heart rate and blood pressure. At the conclusion of the procedure his STs have normalized, heart rate is in the 90s and blood pressure 100-1 10 systolic. He is resting comfortably, nondiaphoretic. On examination I did not appreciate any jugular venous distention no carotid bruit breath sounds are distant lungs are clear anteriorly heart sounds are distant regular without murmur rub or gallop abdomen is nontender extremities show no edema distal pulses are strong to palpation right groin is without hematoma or bleeding. Patient received Angio-Seal hemostatic device. Assessment: 1. Multiple cardiac risk factors 2. Acute inferior ST segment elevation myocardial infarction status post emergent PCI and stenting of the distal mid RCA with 0% residual stenosis and ELIECER-3 flow 3. Mild diffuse disease of the left system 4. Preserved left ventricular ejection fraction and wall motion 5. LVEDP about 10 mmHg 6. At this point I cannot exclude RV stunning or RV infarction. Recommendations: 1. Dual antiplatelet therapy continue aspirin and Brilinta 90 mg p.o. twice daily 2. High intensity statin-either atorvastatin 80 mg daily or rosuvastatin 40 mg daily 3. Check lipids, 4. We will continue to encourage nicotine cessation, discussed with patient's , patient awaiting a bed, and when a bed opens up will be admitted to the ICU. 5. Echocardiogram 6. Anticipate discharge within 48 hours based on clinical course 7. IV fluids Thank you, Sincerely, Rachel Stacy MD [facility] Comorbidities: Comorbidites: Comorbid Conditionshypertension Allergies: Allergy Status Unknown: Medications Prior to Admission: Admission Medication Reconciliation has not been completed for this patient. Objective: Recent Lab Results: Results: CBC: 11/18/2020 19:17 \ Hgb / \ 14.6 / WBC Plt 21.9 H 395 / Hct \ / 44.7 \ RBC: 4.85 MCV: 92 CMP: 11/18/2020 19:17 NA+ Cl- BUN / 143 107 19 / Glucose 113 H K+ HCO3- Creat \ 3.8 28 1.12 \ \ T Bili / \ 0.3 / AST x ---- x ALT 15 x ---- x 19 / Alk P \ / 74 \ Calcium : 9.4 Anion Gap : 12 Albumin : 4.2 T Protein : 7.0 Electronic Signatures: Rachel Stacy) (Signed 18-Nov-2020 20:21) Authored: History of Present Illness, Comorbidities, Allergies, Medications Prior to Admission, Objective, Note Completion Last Updated: 18-Nov-2020 20:21 by Rachel Stacy) [facility] 11-18-2020 Chief complaint Narrative - Reported ASHOK DOSS is being seen for a cardiovascular evaluation . testing results.ASHOK DOSS is a 55 year old male that presents to the [facility] with his for follow-up on testing. He follows with his primary pillow filler Dr. Stacy and was added to my schedule today. He has a recent history of an [place] with cardiac catheterization 11/18/2020 with PCI and stenting of the distal mid RCA. Prior to his hospital follow-up visit he had 2 bouts of chest discomfort that required sublingual nitro therefore he was advised to undergo a treadmill stress test and echocardiogram prior to returning back to work. Test results were reviewed with Dr. Stacy as noted below and discussed at this office visit. He has requested return back to work and states that overall he feels he is doing much better he states that his energy and his endurance is returning. He has not yet started cardiac rehabilitation. He actually states that he has yet to check him to see if cardiac rehabilitation is possible at [facility] that is closest to his home. He currently denies any chest pain, chest pressure, chest tightness, palpitations, shortness of breath, lightheadedness or dizziness. He does request a refill on his sublingual nitro as noted above he had used it previously and states he carries it with him at all times and is afraid he is going to drop it when he pulls his keys out of his pocket and break the bottle. We will refill his sublingual nitro for him today.Testing ryrlenrc77/22/2021 echocardiogram; LVEF 60 to 65%. Normal RV size and function. Trivial MR, trivial TR, RVSP 32 mmHg.12/23/2020 cardiac stress test; no exercise-induced chest discomfort or ST changes at 76% of MPHR.Assessment:1. CAD; with acute inferior ST elevation [place] requiring cardiac catheterization 11/18/2020 with PCI and stenting to the mid RCA. No recurrence of chest pain, chest pressure or chest tightness. He denies any recent use of sublingual nitro or ER visits. We will continue current medications. He has requested a refill on his sublingual nitro as he carries it with him daily.2. Hypertension; well controlled with blood pressure in the office today 131/74. We will continue current medication3. Obesity; we have discussed increased physical activity, along with consuming a low carbohydrate, low sugar and processed food diet, to aid in weight loss.Plan:1. May return to work2. Renew sublingual nitro 0.4 mg as needed3. Follow-up with Dr. Stacy in the office in 3 months or sooner if neededPlease excuse any errors in grammar or translation related to dictation, voice recognition software was used to prepare this document. -[facility] [address] DO Work Phone: Evaluation note Diagnosis Cervical spondylosis with myelopathy- Primary Loss of balance Other symptoms involving nervous and musculoskeletal systems Spinal stenosis of cervical region Spinal stenosis in cervical region documented [facility] Patient is seen by me for the first time. He is individual who was on the road, working, when he suf fered an acute inferior wall myocardial infarction. He was taken to [place] where he had a coronary intervention and did well. Since that time he has been stable. He describes rare episodes of chest discomfort that occur about once a week. There is no rhyme or reason to these episodes and actually typically occur at rest and not with aerobically strenuous activity. He is aerobically active and denies any such symptomatology under the circumstances. Because of this I suspect his symptoms may actually be noncardiac * Review of his medical therapy demonstrates that his hypertension and hyperlipidemia are adequately treated. He continues to smoke and he was counseled in this regard. He is interested in having a lowback injection and I will confer with interventional cardiology to determine if his antiplatelet therapy can be interrupted. * He also states he wishes to undergo a major cervical spine surgical procedure in the fall. I suggested that he undergo stress testing at the end of the summer in anticipation of that surgery in the fall. Because of this we will reconvene in October and proceed accordingly. In the meantime he was encouraged to work on smoking cessation as well as diet and we advocated the merits of lifestyle modification and exercise. [facility] DO Work Phone: History of Present illness NarrativePatient returns in follow-up of problems as noted. In the interim he has had no angina or anginal equivalent symptomatology such that preceded his diagnosis of coronary disease and subsequent PTCA. Treatment and management of his lipids and blood pressure is discussed and reviewed and felt to be adequate and appropriate. He continues to smoke and the benefits of smoking cessation were discussed in detail and elaborated upon. Pointed out to him that it would dramatically reduce his future history of subsequent ST segment myocardial infarction such as he had that led up to our original encounter and subsequent care. He states he is anticipating a multilevel cervical spine fusion and his surgeon has already told him he needs to quit smoking for 6 weeks prior to the procedure. I endorsed thatand suggested that if he is able to do that he probably should just stop smoking for the rest of his life if he can do for 6 weeks and he and his both acknowledge that that would be the best forhim. In the meantime I did advocate the merits of diet exercise and weight loss in order to furtherimprove his hypertension and lipids.[facility] DO Work Phone: Assessments Diagnosis Gouty arthritis of right foot Diagnosis Gout of foot, unspecified cause, unspecified chronicity, unspecified laterality Diagnosis Acute pain of left knee Diagnosis Effusion of left knee Effusion of lower leg joint Injury of left knee, subsequent encounter Diagnosis Acute medial meniscus tear of left knee, initial encounter Diagnosis Chest discomfort Other chest pain Essential hypertension Unspecified essential hypertension Diagnosis Chest discomfort Other chest pain Diagnosis Essential hypertension Unspecified essential hypertension Prostate cancer screening Special screening for malignant neoplasm of prostate Advance Directives Documents on File Type Date Recorded Patient Frame Cleaner Expl anation Advance Directives and Living Will Power of Blower Insulator Documents on File Type Date Recorded Patient Frame Cleaner Expl anation ACP-Advance Directive ACP-Power of Blower Insulator Documents on File Type Date Recorded Patient Frame Cleaner Expl anation ACP-Advance Directive ACP-Power of Blower Insulator Reason for Referral Status Reason Specialty Diagnoses / Procedures Referre d By Contact Referred To Contact Closed Radiology Diagnoses Effusion of left knee Injury of left knee, subsequent encounter Procedures MRI KNEE LEFT WO CONTRAST Patria Quiñones CPNP [address] [place] [address] Specialty Diagnoses / Procedures Referred By Contac t Referred To Contact CT IMAGING Diagnoses Spinal stenosis of cervical region Procedures CT CERVICAL SPINE WO IVCON CT CERVICAL SPINE W/O CONTRAST MATERIAL Megan Interiano MD [address] [place] [address] Ct Imaging Referral ID Status Reason Start Date Expiration Date Visits Requested Visits Authorized [id number] Authorized Auto-Generat ed Referral 06/06/2021 07/06/2022 1 1 Specialty Diagnoses / Procedures Referred By Contac t Referred To Contact XR IMAGING Diagnoses Cervical spondylosis with myelopathy Procedures XR CERV OTHER 4V AP/LAT/FLX/EXT RADEX SPINE CERVICAL 4 OR 5 VIEWS Vivien Lawton PA-C [address] [place] [address] Xr Imaging Referral ID Status Reason Start Date Expiration Date Visits Requested Visits Authorized [id number] Authorized Auto-Generat ed Referral 06/06/2021 07/06/2022 1 1 Discharge Instructions * Instructions* Ella Huerta RN - 11/02/2019 Pre-op Instructions For Out-Patient Surgery Medication Instructions: Please stop herbs and any supplements now (includes vitamins and minerals). Please contact your surgeon and prescribing physician for pre-op instructions for any blood thinners. If you have inhalers/aerosol treatments at home, please use them the morning of your surgery and bring the inhalers with you to the hospital. Please take the following medications the morning of your surgery with a sip of water: None Surgery Instructions: 1. After midnight before surgery: Do not eat or drink anything, including water, mints, gum, and hard candy. You may brush your teeth without swallowing. No smoking, chewing tobacco, or street drugs. 2. Please shower or bathe before surgery. If you were given Surgical Scrub Chlorhexidine Gluconate Liquid (CHG), please shower the night before and the morning of your surgery following the detailed instructions you received during your pre-admission visit. 3. Please do not wear any cologne, lotion, powder, deodorant, jewelry, piercings, perfume, makeup, nail mohawk, hair accessories, or hair spray on the day of surgery. Wear loose comfortable clothing. 4. Leave your valuables at home. Bring a storage case for any glasses/contacts. 5. An adult who is responsible for you MUST drive you home and should be with you for the first 24 hours after surgery. 6. If having out-patient knee and foot surgeries, please arrange for planned crutches, walker, or wheelchair before arriving to the hospital. The Day of Surgery: Arrive at [facility] at the time directed by your surgeon and check in at the desk. If you have a living will or healthcare power of surgical services coordinator, please bring a copy. You will be taken to the pre-op holding area where you will be prepared for surgery. A physical assessment will be performed by a nurse practitioner or mill house supervisor. Your IV will be started and you will meet your anesthesiologist. We are currently limiting visitors to only one designated person in the pre-op holding area. When you go to surgery, your family will be directed to the surgical waiting room, where the doctor shouldspeak with them after your surgery. After surgery, you will be taken to the recovery room then when you are awake and stable you will go to the short stay unit for preparation to be discharged. Only your one designated person is allowed to come to short stay for your discharge. If you use a Bi-PAP or C-PAP machine, please bring it with you and leave it in the car in case it is needed in recovery room. documented in this encounter* Instructions* Irish Meehan RN - 11/10/2019 [facility] Dr. Liu Jackson M.D. [phone] POST OPERATIVE DISCHARGE INSTRUCTIONS KNEE ARTHROSCOPY 1. Follow-up in office seven to ten days after surgery. Call for appointment if not already made. ([phone]). 2. Take pain medication as ordered. 3. Keep the dressing/william wrap on for 72 hours (3 days). After the 72 hours, may remove william wrap anddressing, place Band-Aids over sutures and then if desired reapply william wrap. Start wrapping at the ankle and wrap up to the top of the leg. 4. You may shower, but keep the dressing & wounds dry with plastic bag around knee/leg until seen by Dr. Jackson. 5. After surgery, it is weight bearing as tolerated, unless instructed differently by Dr. Jackson after surgery. Use crutches or a walker as needed based on how your knee feels. 6. Be sure to keep your leg elevated when sitting or lying down. Use 2-3 pillows under leg. 7. Ice to surgical site for 20 to 30 minutes four times a day for [address] Jackson recommends taking one Aspirin 325 mg daily for 7 days after surgery to help prevent blood clots. 9. Be sure to do your leg exercises daily. Examples of these exercises are in the knee arthroscopy booklet given in Dr. Jackson s office. Call Dr. Jackson s office if you experience any of the followin. Temperature above 101 F. 2. Persistent nausea and vomiting. 3. Severe swelling in the knee, calf, or foot. 4. Severe pain that is not relieved by pain medications. documented in this encounter Summary Purpose Family History Unknown Family Member Name Dates Details Patent coronary artery: Fath er Status:Active Family history of angina pec toris: Father(V17.49, Z82.49) Status:Active Family history of cardiac pa cemaker: Father(V17.49, Z82.49) Status:Active Family history of chronic ob structive pulmonary disease: Father(V17.6, Z82.5) Status:Active Family history of congestive heart failure: Father(V17.49, Z82.49) Status:Active Unknown Family Member Name Dates Details Patent coronary artery: Fath er Status:Active Family history of angina pec toris: Father(V17.49, Z82.49) Status:Active Family history of cardiac pa cemaker: Father(V17.49, Z82.49) Status:Active Family history of chronic ob structive pulmonary disease: Father(V17.6, Z82.5) Status:Active Family history of congestive heart failure: Father(V17.49, Z82.49) Status:Active Unknown Family Member Name Dates Details Patent coronary artery: Fath er Status:Active Family history of angina pec toris: Father(V17.49, Z82.49) Status:Active Family history of cardiac pa cemaker: Father(V17.49, Z82.49) Status:Active Family history of chronic ob structive pulmonary disease: Father(V17.6, Z82.5) Status:Active Family history of congestive heart failure: Father(V17.49, Z82.49) Status:Active Unknown Family Member Name Dates Details Patent coronary artery: Fath er Status:Active Family history of angina pec toris: Father(V17.49, Z82.49) Status:Active Family history of cardiac pa cemaker: Father(V17.49, Z82.49) Status:Active Family history of chronic ob structive pulmonary disease: Father(V17.6, Z82.5) Status:Active Family history of congestive heart failure: Father(V17.49, Z82.49) Status:Active Unknown Family Member Name Dates Details Patent coronary artery: Fath er Status:Active Family history of angina pec toris: Father(V17.49, Z82.49) Status:Active Family history of cardiac pa cemaker: Father(V17.49, Z82.49) Status:Active Family history of chronic ob structive pulmonary disease: Father(V17.6, Z82.5) Status:Active Family history of congestive heart failure: Father(V17.49, Z82.49) Status:Active Unknown Family Member Name Dates Details Patent coronary artery: Fath er Status:Active Family history of angina pec toris: Father(V17.49, Z82.49) Status:Active Family history of cardiac pa cemaker: Father(V17.49, Z82.49) Status:Active Family history of chronic ob structive pulmonary disease: Father(V17.6, Z82.5) Status:Active Family history of congestive heart failure: Father(V17.49, Z82.49) Status:Active Unknown Family Member Name Dates Details Patent coronary artery: Fath er Status:Active Family history of angina pec toris: Father(V17.49, Z82.49) Status:Active Family history of cardiac pa cemaker: Father(V17.49, Z82.49) Status:Active Family history of chronic ob structive pulmonary disease: Father(V17.6, Z82.5) Status:Active Family history of congestive heart failure: Father(V17.49, Z82.49) Status:Active Unknown Family Member Name Dates Details Patent coronary artery: Fath er Status:Active Family history of angina pec toris: Father(V17.49, Z82.49) Status:Active Family history of cardiac pa cemaker: Father(V17.49, Z82.49) Status:Active Family history of chronic ob structive pulmonary disease: Father(V17.6, Z82.5) Status:Active Family history of congestive heart failure: Father(V17.49, Z82.49) Status:Active Unknown Family Member Name Dates Details Patent coronary artery: Fath er Status:Active Family history of angina pec toris: Father(V17.49, Z82.49) Status:Active Family history of cardiac pa cemaker: Father(V17.49, Z82.49) Status:Active Family history of chronic ob structive pulmonary disease: Father(V17.6, Z82.5) Status:Active Family history of congestive heart failure: Father(V17.49, Z82.49) Status:Active Chief Complaint ASHOK DOSS is being seen for a 6 month follow-up of.ASHOK DOSS is being seen for a 5 month follow-up of.ASHOK DOSS is being seen for a 5 month follow-up of.* 9 month routine f/u: 'doing ok' * ASHOK DOSS is being seen for a 9 month follow-up of coronary artery disease, dyslipidemia and hypertension. Additional Source Comments Reason for Visit (unrecogniz ed section and content) Status Reason Specialty Diagnoses / Procedures Referre d By Contact Referred To Contact Closed Radiology Diagnoses Effusion of left knee Injury of left knee, subsequent encounter Procedures MRI KNEE LEFT WO CONTRAST Patria Quiñones CPNP [address] [place] [address] Status Reason Specialty Diagnoses / Procedures Referre d By Contact Referred To Contact Diagnoses Acute medial meniscus tear of left knee MEDIAL MENISCUS TEAR LEFT KNEE Procedures WI KNEE SCOPE,DIAGNOSTIC KNEE ARTHROSCOPY WITH PARTIAL MEDICAL MENISECTOMY Liu Jackson MD [address] [facility] [address] [place] [address] [facility] Reason Comments New Patient Reason Comments Schedule Surgery (unrecognized sect ion and content) No Status Records FoundNo Status Records FoundNo Status Records FoundNo Status Records FoundNo Status Records FoundNo Status Records FoundNo Status Records FoundNo Status Records Found INFORMATION SOURCE (unrecogn ized section and content) DATE CREATED AUTHOR 05/06/2020 [facility] DATE CREATED AUTHOR AUTHOR'S ORGANIZ ATION 05/07/2020 [facility] DATE CREATED AUTHOR AUTHOR'S ORGANIZ ATION 12/26/2020 [facility] DATE CREATED AUTHOR AUTHOR'S ORGANIZ ATION 07/06/2021 [facility] DATE CREATED AUTHOR AUTHOR'S ORGANIZ ATION 10/26/2021 [employer] DATE CREATED AUTHOR AUTHOR'S ORGANIZ ATION 08/10/2022 [facility] DATE CREATED AUTHOR AUTHOR'S ORGANIZ ATION 08/24/2022 [facility] DATE CREATED AUTHOR AUTHOR'S ORGANIZ ATION 10/18/2022 [facility] Source Comments (unrecognize d section and content) In the event this informatio n is protected by the Federal Confidentiality of Alcohol and Drug Abuse Patient Records regulations: The Federal rules restrict any use of the information to criminally investigate or prosecute any alcohol or drug abuse patient.[place] [facility] the event this information is protected by the Federal Confidentiality of Alcohol and Drug Abuse Patient Records regulations: The Federal rules restrict any use of the information to criminally investigate or prosecute any alcohol or drug abuse patient.[facility] FOR RECORDS PERTAINING TO PATIENTS WHO ARE OR HAVE BEEN ENROLLED IN A CHEMICAL DEPENDENCY/SUBSTANCEABUSE PROGRAM, SOME INFORMATION MAY BE OMITTED. This clinical summary was aggregated from multiple sources. Caution should be exercised in using it in the provision of clinical care. This summary normalizes information from multiple sources, and as a consequence, information in this document may materially change the coding, format and clinical context of patient data. In addition, data may be omitted in some cases. CLINICAL DECISIONS SHOULD BE BASED ON THE PRIMARY CLINICAL RECORDS. [facility]. provides no warranty or guarantee of the accuracy or completeness of information in this document.
--- NOTE | 2023-03-28 12:44 | P.CN_ITS ---
Consult Note: HPI Data of Consult Patient: known to practice within the last 3 years Consult date: 09/27/22 Requesting Physician: Priscilla Elkins NP Primary Care Provider: HUNTER ROBINS Consult Narrative Reason for consult: f/u Narrative: Patient is here for f/u of bilateral knee and left hip pain. Pain is in the left hip, worse with walking and ROM exercises. No new sensorimotor sx or bowel or bladder issues. No adverse medication SE. Medications assist patient with better ability to perform ADLs. He has seen orthopedics for his knee and they advised he would need total hip done left. He wants to get surgery done and does not want hip injections at this time. Currently working with [employer] and [employer] to get his hip surgery covered. Today rating pain 6/10 in bilateral hip and bilateral knee cc:: CC: Priscilla Elkins NP Review of Systems ROS Status of ROS 10 or more systems reviewed and unremark able except as noted in history and below Musculoskeletal Reports: back pain, extremity pain and joint pain Meds Home Medications and Allergies Home Medications Medication Instructions Recorded Confirmed Type aspirin 81 mg capsule 81 mg PO DAILY 08/14/22 12/27/22 History atorvastatin 80 mg tablet 80 mg PO BEDTIME 08/14/22 12/27/22 History baclofen 10 mg tablet 10 mg PO TID PRN muscle spasm 08/14/22 12/27/22 History divalproex 125 mg tablet,delayed 125 mg PO TID 08/14/22 12/27/22 History release hydrocodone 5 mg-acetaminophen 325 1 tab PO BID PRN pain 08/14/22 12/27/22 History mg tablet lisinopril 20 1 tab PO DAILY 08/14/22 12/27/22 History mg-hydrochlorothiazide 12.5 mg tablet metoprolol tartrate 25 mg tablet 25 mg PO BID 08/14/22 12/27/22 History hydrocodone 5 mg-acetaminophen 325 1 tab PO BID PRN pain #60 tabs 10/17/22 12/27/22 Rx mg tablet hydrocodone 5 mg-acetaminophen 325 1 tab PO BID PRN pain #60 tabs 11/15/22 12/27/22 Rx mg tablet hydrocodone 5 mg-acetaminophen 325 1 tab PO BID PRN pain #60 tabs 11/15/22 12/27/22 Rx mg tablet hydrocodone 5 mg-acetaminophen 325 1 tab PO BID PRN pain #60 tabs 12/19/22 12/27/22 Rx mg tablet lidocaine 5 % topical patch 1 patch topical DAILY #30 ea 12/27/22 Rx hydrocodone 5 mg-acetaminophen 325 1 tab PO BID PRN pain #60 tabs 01/16/23 Rx mg tablet hydrocodone 5 mg-acetaminophen 325 1 tab PO BID PRN pain #60 tabs 02/18/23 Rx mg tablet hydrocodone 5 mg-acetaminophen 325 1 tab PO BID PRN pain #60 tabs 03/20/23 Rx mg tablet Allergies Allergy/AdvReac Type Severity Reaction Status Date / Time No Known Drug Allergies Allergy Verified 08/14/22 16:02 Exam Constitutional Documenting provider has reviewed patient's vital signs: yes Common normals: no apparent distress, oriented x3, healthy appearing, alert and well nourished General appearance: cooperative Orientation/consciousness: Yes awake, Yes oriented to person, Yes oriented to place and Yes oriented to time HENMT Common normals: normocephalic, hearing grossly normal bilaterally and moist oral mucous membranes Head and scalp: normocephalic Eye Common normals: PERRL Pupil: PERRL Neck & C-Spine Common normals: full ROM General: normal visual inspection Chest Common normals: inspection of chest normal Respiratory Common normals: normal respiratory effort, no retractions and no use of accessory muscles Effort & inspection: able to speak in complete sentences and symmetric chest movement Extremity Common normals: normal capillary refill and no pedal edema Other: left hip pain with ROM, no radiculopathy muscle strength 4/5 bilat with intact sensation Neuro Common normals: oriented x3, CN's II-XII intact bilaterally, moves all extremities, no focal motor deficits, no sensory deficits noted and deep tendon reflexes 2+ bilaterally Sensorium/orientation: alert Gait (neuro): antalgic and assistive device used cane Motor exam: strength 5/5 throughout and no movement abnormalities noted Psych Common normals: mental status grossly normal, thought process normal, cooperative, affect normal, speech normal and activity/motor behavior normal Speech: normal speech Thought process: normal thought process Results Additional Findings Additional findings: I have checked an [place] report on this patient today and there are no aberrancies noted in the prescribing history.?? A drug screen was completed and reviewed within the last year, and if there has not been a drug screen completed we ordered one today to monitor higher risk, state monitored pain medication use. As part of providing excellent, safe, comprehensive care, the following was completed at our patient's visit: 1. A medication reconciliation and review to ensure accurate knowledge of current/active medications, including asking our patients to inform us about any [id number] medications or herbal remedies/nutritional supplements/alternative remedies. 2. A review to specifically ensure our patients have had annual screening for: e levated body mass index (BMI), tobacco use, screening for depression, and screening for unhealthy alcohol use. When screening is concerning, patients are provided with education and the specific recommendation to discuss the concerning health issue and treatment options with their primary care provider. Assessment and Plan Assessment and Plan (1) Osteoarthritis, hip, bilateral: (2) Labral tear of left hip joint: (3) Chronic prescription opiate use: Assessment and Plan: I have refilled the patient's opioid prescriptions at the above noted dose and schedule.? I feel these medications are improving the patient's quality of life and allow them to tolerate activities of daily living as well as participate in recreational activity.? The patient does not report intolerable side effects. The patient is NOT opioid naive and non-pharmacologic and non-opioid treatment has failed to significantly relieve the patient's pain and improve functionality. The patient has a diagnosis that is related to a somatic or visceral pain etiology. ? ?? I reviewed with the patient the potential risks and side effects with the use of? opioid medications including but not limited to respiratory depression,? sedation, and even . I verified the patient has access to naloxone should? these effects occur. I advised the patient to avoid the use of any other? sedation substances including alcohol, THC, and benzodiazepines while? taking opioid medications due to the risk of compounding side effects and? detrimental outcomes. I reviewed the NURSE RECRUITER, pain treatment agreement, urine? drug screen, and opioid start talking forms. The patient was advised to let? their family know they had Naloxone in case they would need to administer? the medication.? ?? A drug screen was completed within the last year, and no aberrancies were noted regarding their use of controlled substances. The patient understands they are subject to the terms and conditions of the pain contract that they have signed. ? ?? I have checked an [place] report on this patient today and there are no aberrancies noted in the prescribing history.? Plan increase norco 5-325 to 1-1.5 tabs BID PRN moderate to severe pain, okay to fill early. narcan previously discussed and prescribed continue f/u with ortho f/u 3 months for medication management
== END 2023-03-28 12:37 | disposition home or self-care (01) ==
LOC: PM 12:37
PROVIDERS: PCP Nurse Practitioner Family; Visit Provider Nurse Practitioner
DX: M16.0 Bilateral primary osteoarthritis of hip (principal); Z79.899 Other long term (current) drug therapy; S73.192A Other sprain of left hip, initial encounter
CPT/HCPCS: G0463

== ENCOUNTER 2023-04-09 12:56 | Outpatient (OUT) | payer BC, SELFPAY ==
--- NOTE | 2023-04-09 | CONS_ITS ---
CONSULTATION DATE: 04/09/2023 TO: Dr. Barcenas HISTORY: Patient returns today complaining of progressive pain in his left hip area, left lower extremity, described as 5-7/10 pain, sharp in character, which increased with activities such as standing, walking and performing transitioning maneuvers. He feels most comfortable in the semi-recumbent position. Denies any change in bowel and bladder habits or new sensorimotor changes in the lower extremities. MEDICATIONS: He continues to use ibuprofen anywhere between 400-800 mg up to t.i.d. He reports, of recent, his regimen has not been effective for the progressive left hip pain. Other medication includes baclofen 5 mg b.i.d. EXAMINATION: Notable for patient having a positive left sided FABERs sign, a positive left sided Gaenslen?s maneuver, spasm of his left gluteus medius. IMPRESSION: Our impression is patient with chronic left hip pain from osteoarthrosis. RECOMMENDATIONS: I recommend a left hip joint injection under fluoroscopic guidance, using 80 mg of Depo-Medrol. Prior to the procedure, we will do Valium 10 mg pill to be taken upon arrival to the procedure room. The details of the procedure were discussed with the patient. He agrees to proceed with the outlined plan. As part of providing excellent, safe, comprehensive care, the following was completed at our patient's visit: 1. A medication reconciliation and review to ensure accurate knowledge of current/active medications, including asking our patients to inform us about any [id number] medications or herbal remedies/nutritional supplements/alternative remedies. 2. A review to specifically ensure our patients have had annual screening for: elevated body mass index (BMI, see intake chart for exact total), tobacco use, screening for depression, and screening for unhealthy alcohol use. When screening is concerning, patients are provided with education and the specific recommendation to discuss the concerning health issue and treatment options with their primary care provider. LEIF
--- OUTSIDE RECORDS SUMMARY | 2023-04-09 13:05 | XMS_ITS | CCD ---
Author Name Unknown Address [id number] [place] [address] Organization [facility] Care Team Providers Care Materials Inspector Name Role Phone Margarita Maxwell Primary Care Provider KASH GRIER Referring Unavailabl e GURJIT, SHIVAPRASAD K Primary Care Unavailabl e GURJIT, SHIVAPRASAD K Referring Unavailabl e KASH GRIER Primary Care Unavailabl e GURJIT, SHIVAPRASAD Paulina Referring Unavailabl e KASH GRIER Primary Care Unavailabl e GURJIT, SHIVAPRASAD Paulina Primary Care Unavailabl e LIU JACKSON Referring Unavailable ANAYA HORTON Referring Unavailable GURJIT, SHIVAPRASAD Paulina Primary Care Unavailabl e NARRA, FLACO Referring Unavailable KASH GRIER Primary Care Unavailabl e GURJIT, SHIVAPRASAD K Referring Unavailabl e KASH GRIER Primary Care Unavailabl e LIU JACKSON Admitting Unavailable LIU JACKSON Attending Unavailable GURJIT, SHIVAPRASAD K Primary Care Unavailabl e NARRA, FLACO Referring Unavailable KASH GRIER Primary Care Unavailabl e GURJIT, SHIVAPRASAD Paulina Primary Care Unavailabl e KASH GRIER Referring Unavailabl e GURJIT, SHIVAPRASAD Paulina Primary Care Unavailabl e KASH GRIER Referring Unavailabl e GURJIT, SHIVAPRASAD Paulina Primary Care Unavailabl e PATRIA QUIÑONES Referring Unavailable Kash Grier Primary Care Provider Colten Parra Unavailable Unavailable Unavailable Unavailable Primary Care Provider Unavailindira AWAD ., DR COMPA Vo Attending Unavailable AWAD ., DR COMPA Vo Admitting Unavailable JULIENNE, [facility] Primary Care Unavailable AWAD ., DR COMPA Vo Consulting Unavailable SHARP, TRISTA Consulting Unavailable LAKSHMIPATHY ., NARENDRANATH Attending Nora vailable LAKSHMIPATHY ., NARENDRANATH Admitting Nora vailable JULIENNE, [facility] Primary Care Unavailable LAKSHMIPATHY ., NARENDRANATH Consulting Nora vailable HALKER ., AD Attending Unavailable JULIENNE, [facility] Primary Care Unavailable LAKSHMIPATHY ., NARENDRANATH Consulting Nora vailable HALKER ., AD Admitting Unavailable AWAD ., DR COMPA Vo Attending Unavailable AWAD ., DR COMPA Vo Admitting Unavailable JULINENE, [facility] Primary Care Unavailable MALDONADO ., MYRIAM Consulting Unavailable AWAD ., DR COMPA Vo Attending Unavailable AWAD ., DR COMPA Vo Admitting Unavailable JULIENNE, [facility] Primary Care Unavailable AWAD ., DR COMPA Vo Consulting Unavailable SHARP, TRISTA Consulting Unavailable AWAD ., DR COMPA Vo Attending Unavailable AWAD ., DR COMPA Vo Admitting Unavailable JULIENNE, [facility] Primary Care Unavailable MALDONADO ., MYRIAM Consulting Unavailable AWAD ., DR COMPA Vo Attending Unavailable AWAD ., DR COMPA Vo Admitting Unavailable JULIENNE, [facility] Primary Care Unavailable AWAD ., DR COMPA Vo Consulting Unavailable AWAD ., DR COMPA Vo Attending Unavailable AWAD ., DR COMPA Vo Admitting [facility] [place] Primary Care Unavailable AWAD ., DR COMPA Vo Consulting Unavailable [facility] [place] Primary Care Unavailable ROBERTO ., DANITZA Attending Unavailable ROBERTO ., DANITZA Admitting Unavailable LORENZO ., JANA MENDOZA Consulting Unavailindira MACEDO, TANNER Consulting Unavailable JULIENNE, HUNTER Primary Care Unavailable DYLON ., MR ROZ Consulting Unavailable DYLON ., MR ROZ Attending Unavailable DYLON ., MR ROZ Admitting Unavailable EDSON PEACOCK Consulting Unavailable DELMI ., DR COMPA Vo Admitting Unavailable AWAD ., DR COMPA Vo Consulting Unavailable JULIENNE, HUNTER Primary Care Unavailable AWAD ., DR COMPA Vo Attending Unavailable LAKSHMIPATHY ., NARENDRANATH Attending Nora vailable LAKSHMIPATHY ., NARENDRANATH Admitting Nora tom [facility] [place] Primary Care Unavailable [place], DR VASILE Gentile Consulting Unavailable ERNESTO, DR MICHAEL Braun Consulting Unavailable RAUDEL ., AGUSTO Consulting Nora tom AWAD ., DR COMPA Vo Attending Unavailable DELMI ., DR COMPA Vo Admitting Unavailable [facility] Primary Care Unavailable JOEL .MYRIAM Consulting Unavailable WINIFRED BORGES Attending Unavailable Marge GARCIA, Antonio Rodriguez Primary Care Unavailable Armin GARCIA, Edson Bocanegra Attending Unavaila Colten Marques DO Primary Care Provider [phone] Medications Current Medications Medication Drug Class(es) Dates Sig (Normalized) Sig (Original) acetaminophen 325 mg / HYDROcodone bitartrate 5 mg oral tablet (5 sources) Opioid Agonist Start: 03-15-2022 take 1 tablet by mouth twice daily as needed HYDROcodone-aceta minophen (NORCO) 5-325 mg per tablet Take 1 tablet by mouth 2 (two) times a day as needed. 0 03/15/2022 Active Start: 11-10-2019 End: 11-15-2019 take 1 tablet by mouth every four hours as needed for pain, then take 1 tablet by mouth as needed for pain HYDROcodone-acetaminophen (NORCO) 5-325 MG per tablet Indications: Acute medial meniscus tear of left knee, initial encounter Take 1 tablet by mouth every 4 hours as needed for Pain for up to 5 days. Intended supply: 5 days. Take lowest dose possible to manage pain 30 tablet 0 11/10/2019 11/15/2019 Active [place] 5-325 MG T ABS TAKE 1 TABLET EVERY 12 HOURS NEEDED. Quantity: 0 Refills: 0 Ordered: 26-Nov-2022 DO Active atorvastatin 80 mg oral tablet (14 sources) HMG-CoA Reductase Inhibitor Start: 02-11-2023 take 1 tablet by mouth in the morning atorvastatin (LIPITOR) 80 mg tablet Take 1 tablet (80 mg total) by mouth in the morning. 90 tablet 1 02/11/2023 Active Start: 11-29-2020 take 1 tablet by francesco th once daily Atorvastatin Calcium 80 MG Oral Tablet TAKE 1 TABLET BY MOUTH EVERY DAY Quantity: 90 Refills: 3 Ordered: 29-Nov-2021 Leonid Figueredo MD Start : 29-Nov-2020 Active Comment on above: Take 80 mg by mouth once daily. baclofen 10 mg oral tablet (3 sources) gamma-Aminobutyric Acid-ergic Agonist Start: 09-14-2022 take 1 tablet by mouth three times daily baclofen (LIORESAL) 10 mg tablet Take 1 tablet (10 mg total) by mouth 3 (three) times a day. 0 09/14/2022 Active take 3 tablets by mo [facility] once daily as needed for muscle spasms Baclofen 10 MG Oral Tablet TAKE 3 tablet s DAILY NEEDED FOR MUSCLE SPASM. Quantity: 0 [...] Active Start: 10-06-2019 take 1 tablet by francesoc twice daily as needed for muscle spasms cyclobenzaprine (FLEXERIL) 10 MG tablet Take 1 tablet by mouth 2 times daily as needed for Muscle spasms 30 tablet 0 10/06/2019 Active Start: 09-16-2019 take 1 tablet by francesco twice daily as needed for muscle spasms cyclobenzaprine (FLEXERIL) 10 MG tablet Take 1 tablet by mouth 2 times daily as needed for Muscle spasms 30 tablet 0 09/16/2019 Active Start: 10-13-2018 cyclobenzaprin e (FLEXERIL) 10 MG tablet 1 ml diphenhydrAMINE hydrochloride 50 mg/ml cartridge (1 source) Histamine-1 Receptor Antagonist Start: 11-10-2019 End: 11-10-2019 diphenhydrAMINE (BENADRYL) injection 12.5 mg docusate sodium 50 mg / sennosides, halfway 8.6 mg oral tablet (2 sources) Start: 03-26-2022 take 2 tablets by mouth once daily sennosides-docusate sodium (SENOKOT-S) 8.6-50 mg Take 2 tablets by mouth nightly. 30 tablet 2 03/26/2022 Active 2 ml fentaNYL 0.05 mg/ml injection (2 sources) Opioid Agonist Start: 11-10-2019 fentaNYL (SUBLIMAZE) injection 25 mcg Start: 11-10-2019 fentaNYL (SUBL [...] (1 source) beta-Adrenergic Sam Start: 11-10-2019 labetalol (NORMODYNE;TRANDATE) injection 5 mg magnesium gluconate 550 mg oral tablet (2 sources) take 1 tablet by mouth once daily magnesium 30 MG tablet Take 30 mg by mouth daily 0 Active 1 ml meperidine hydrochloride 25 mg/ml cartridge (1 source) Opioid Agonist Start: 11-10-2019 meperidine (DEMEROL) injection 12.5 mg methylPREDNISolone 4 mg oral tablet (2 sources) Corticosteroid Start: 12-17-2022 take 1 tablet by mouth in the morning methylPREDNISolone (MEDROL, MAEGAN,) 4 mg tablet Indications: Upper respiratory disease Take 1 tablet (4 mg total) by mouth in the morning. follow package directions. 21 tablet 0 12/17/2022 Active 2 ml metoclopramide 5 mg/ml prefilled syringe (1 source) Dopamine-2 Receptor Antagonist Start: 11-10-2019 End: 11-10-2019 metoclopramide (REGLAN) injection 10 mg metoprolol tartrate 25 mg oral tablet (13 sources) beta-Adrenergic Sam Start: 04-01-2023 take 1 tablet by mouth at bedtime metoprolol tartrate (LOPRESSOR) 25 mg tablet TAKE 1 TABLET (25 MG) BY MOUTH IN THE MORNING AND AT BEDTIME 180 tablet 1 04/01/2023 Active Start: 11-29-2020 End: 04-01-2023 take 1 tablet by mouth at bedtime metoprolol tartrate (LOPRESSOR) 25 mg tablet TAKE 1 TABLET (25 MG TOTAL) BY MOUTH IN THE MORNING AND AT BEDTIME. 180 tablet 1 08/16/2022 04/01/2023 Discontinued 1 ml morphine sulfate 2 mg/ml cartridge (1 source) Opioid Agonist Start: 11-10-2019 morphine (PF) injection 2 mg 24 hr nicotine 0.875 mg/hr transdermal system (4 sources) Cholinergic Nicotinic Agonist Start: 03-27-2022 apply 1 dose transdermal route every hour in the morning nicotine (NICODERM CQ) 21 mg/[address] 1 patch on the skin in the morning. 30 patch 2 03/27/2022 Active Start: 11-29-2020 apply 1 dose transde rmal route once daily Nicotine 21 MG/24HR Transdermal Patch 24 Hour APPLY 1 PATCH DAILY DIRECTED. Quantity: 0 Refills: 0 Ordered: 15-Dec-2020 DO Start : 29-Nov-2020 Active 2 ml ondansetron 2 mg/ml injection (1 [...] Active Start: 05-06-2019 take 1 capsule by [facility] once daily tamsulosin (FLOMAX) 0.4 MG capsule TAKE 1 CAPSULE BY MOUTH EVERY DAY 90 capsule 1 05/06/2019 Active Start: 10-09-2018 take 1 capsule by [facility] once daily tamsulosin (FLOMAX) 0.4 MG capsule [...] Comment on above: Take 1 tablet by [facility] twice daily as needed. [id number] actuat albuterol 0.09 mg/actuat metered dose [...] Take by mouth q 24 H R. colchicine 0.6 mg oral tablet (6 sources) Start: 09-16-2019 End: 11-02-2019 take 1 tablet by mouth once daily [...] Figueredo MD Start : 29-Nov-2020 Active Start: 05-20-2020 take 1 tablet by francesco th once in the morning lisinopril-hydroCHLOROthiazide (PRINZIDE,ZESTORETIC) 20-12.5 mg per tablet Take 1 tablet by mouth in the morning. 0 05/20/2020 Active Start: 11-10-2019 take 1 tablet by [...] Active Comment on above: Take by mouth. nitroglycerin 0.4 mg sublingual tablet (14 sources) Nitrate Vasodilator Start: 02-20-2021 nitroglycerin sublingual (NITROQUICK) 0.4 mg SL tablet [...] 27-Dec-2020 Kalie Laguna Start : 22-Nov-2020 Active nitroglycerin (N ITRO-TIME ORAL) Take by mouth. 0 Active Comment on above: USE 1 UNDER [...] completed) Start: 10-28-2018 take 1 capsule by mo [facility] once daily propranolol (INDERAL LA) 80 MG [...] sodium 125 mg delayed release oral tablet (19 sources) Mood Stabilizer, Anti-epileptic Agent Start: 02-28-2021 End: 04-01-2023 take 1 tablet by mouth once daily divalproex (DEPAKOTE) 125 mg EC tablet Indications: Migraine, unspecified, not intractable, without status migrainosus TAKE 1 TABLET BY MOUTH EVERY DAY 90 tablet 1 08/16/2022 04/01/2023 Discontinued Start: 04-06-2020 take 1 tablet by francesco [...] inferior wall, episode of care unspecified] Chronic Adjustment disorders (2 sources) Reactive depression (situational); Translations: [Adjustment disorder with depressed mood] Onset: 12-14-2022 12-14-2022 Chronic Coronary atherosclerosis and other heart disease (20 sources) Coronary atherosclerosis; Translations: [Coronary atherosclerosis of unspecified type of vessel, [place] or graft] Chronic Coronary atherosclerosis and other heart disease (2 sources) Stented coronary artery; Translations: [Percutaneous transluminal coronary angioplasty status] Episodic Diseases of white blood cells (2 sources) Band neutrophil count above reference range; Translations: [Bandemia] Onset: 06-21-2022 06-21-2022 Chronic Disorders of lipid metabolism (8 sources) Hyperlipidemia; Translations: [Other and unspecified hyperlipidemia] Chronic Essential hypertension (14 sources) Essential hypertension; Translations: [Hypertensive disorder] Onset: 03-24-2022 06-08-2022 Chronic Gout and other crystal arthropathies (1 source) Articular gout; Translations: [Gout of foot, unspecified cause, unspecified chronicity, unspecified laterality] Chronic Gout and other crystal arthropathies (1 source) Gouty arthritis of right foot; Translations: [Gouty arthritis of right foot] Headache; including migraine (1 source) Migraine; Translations: [Migraine, unspecified, not intractable, without status migrainosus] 04-01-2023 Chronic Nonspecific chest pain (2 sources) Chest discomfort; [...] cervical region] Onset: 10-26-2021 Chronic Substance-related disorders (20 sources) Nicotine dependence; Translations: [Smokes tobacco daily] [...] FT INIT CELE FX] Onset: 01-19-2022 Episodic Mood disorders (2 sources) Mood disorders Onset: 12-14-2022 12-14-2022 Other aftercare (1 source) bowling ball grader (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) use of aspirin; Translations: [NURSING HOME CURRENT USE OF ASPIRIN] Onset: 05-07-2022 Episodic Other aftercare (1 source) Other assistant financial accountant (current) drug therapy; Translations: [OTH TELEPHONE CLERK CURRENT DRUG THERAPY] Onset: 05-07-2022 Episodic Other and unspecified benign neoplasm (2 sources) Polyp of transverse colon; Translations: [Polyp of colon] Onset: 12-07-2022 12-07-2022 Episodic Other connective tissue disease (5 sources) Other specified soft tissue disorders; Translations: [OTHER SPEC SOFT TISSUE DISORDERS] Onset: 12-28-2021 Episodic Other connective tissue disease (2 sources) Pain in right lower limb; Translations: [Pain in right leg] Onset: 03-24-2022 03-24-2022 Episodic Other gastrointestinal disorders (2 sources) Stool DNA-based colorectal cancer screening positive; Translations: [Other fecal abnormalities] Onset: 11-16-2022 11-16-2022 Episodic Other injuries and conditions due to [...] IN LEFT SHOULDER] Onset: 05-03-2022 Episodic Other non-traumatic joint disorders (2 sources) Hip pain; Translations: [Pain in left hip] Onset: 12-14-2022 12-14-2022 Episodic Other upper respiratory infections (10 sources) Acute upper respiratory infection; Translations: [Acute upper respiratory infection, unspecified] Onset: 03-17-2018 10-06-2019 Episodic Phlebitis; thrombophlebitis and thromboembolism (4 sources) Personal history of other venous thrombosis and embolism; Translations: [Acute deep venous thrombosis of calf] Onset: 05-08-2022 Episodic Skin and subcutaneous tissue infections (2 sources) Cellulitis of right lower limb; Translations: [Cellulitis of right lower limb] Onset: 03-24-2022 03-24-2022 Episodic Spondylosis; intervertebral disc disorders; other back problems (6 sources) Spinal stenosis in cervical region; Translations: [Spinal stenosis, cervical region] Onset: 01-02-2022 Episodic Unclassified (1 source) LOW BACK PAIN, UNSPECIFIED; Translations: [LOW BACK PAIN, UNSPECIFIED] Onset: 06-14-2022 Results Test Name Value Interpretation Reference Range Facility Tobacco Screening.on 023 Adult depression screening assessment No [facility] DO Work Phone: Fall risk assessment b) One or more fall s in the last year [facility] 250 DO Work Phone: Tobacco use status [facility] a) Yes [facility] 250 DO Work Phone: Tobacco Screening. Yes [facility] 250 DO Work Phone: 36on 08-23-2022 36 Left vm to reschedul e us and follow up from 08/17/22 Normal [facility] Telephoneon 08-23-2022 Telephone [id number] Fidencio Doss as 1965 M Date Provider Department Center 08/23/2022 Sanjuana2-SARINA PATRIA [facility] No family history on file Normal [facility] XR LSPINE 2_3 VIEWSon 2022 XR LSPINE [...] by: MICHAEL OROZCO Date: 2022-08-01 08:25 Normal [facility] XR HIPS LUPILLO 3_4V WO [...] by: VASILE VITALE Date: 2022-07-31 14:23 Normal [facility] .BF Diffon 07-23-[address]22 [address] Interpretation Normal [facility] Comment on above: Result Comment: Syno vial fluid shows chronic inflammatory cells and synovial cells. Authenticated by: Dr. Luci Leyva Date/Time: Performed By: #### . Body Fluid Differential #### [place] [address] C ANAon 07-23-2022 C NELL --- Final No anaerobic growth after 72 hrs. Normal [facility] Comment on above: Performed By: #### A NAC #### [place] [address] .BF Cell Cnt RBC Aon 023 Fluid RBC Count 3983 /mcL Normal [facility] Comment on above: Performed By: #### . Body Fluid Cell Count RBC Auto #### [place] [address] .BF Cell Cnt WBC Aon 023 Fluid WBC Count 257 /mcL High 0-150 [facility] Comment on above: Performed By: #### . Body Fluid Cell Count WBC Auto #### [place] [address] .BF Diffon 07-21-2022 Fluid Mononuclear Cells 83 % High 0-78 [facility] Comment on above: Performed By: #### . Body Fluid Differential #### [place] [address] Fluid Other Cells 2 % Normal 0-10 [facility] Comment on above: Performed By: #### . Body Fluid Differential #### [place] [address] Fluid Polynuclear Cells 15 % Normal 0-25 [facility] Comment on above: Performed By: #### . Body Fluid Differential #### [place] [address] BF Cell Counton 07-21-2022 Body Fluid Cell Cnt Type Synovial Normal [facility] Comment on above: Performed By: #### F LCC #### [address] [place] [address] C Sterile BFon 07-20-2022 C Sterile BF GRAM STAIN Final No growth at 48 hours. Gram Stain Moderate White Blood Cells No organisms seen. Normal [facility] Comment on above: Performed By: #### C SBF #### [facility] (DEFAULT) [address] [place] [address] [address] Office Visiton 05-08-2022 Follow-up visit [id number] Fidencio Doss as 1965 M Date Provider Department Center 05/08/2022 WINIFRED HOWELL [facility] No family history on file Level of Service:47191 [place] OFFICE/OUTPATIENT NEW LOW MDM 30-44 MINUTES Reason for Visit and Comments: New Patient [632] Normal [facility] BNPon 05-03-2022 Natriuretic peptide B (Bld) [Mass/Vol] 41.0 pg/mL Normal <=900.0 [facility] Comment on above: Performed By: #### H STROPN, LIPA, BNP, CMP ####[facility] [address] [place], [place] [address]QdDr. Jazzy Powell CBC AUTO DIFFon 05-03-2022 BASO # 0.1 103/ul Normal 0.0-0.1 [facility] Comment on above: Performed By: #### C BC #### [facility] [address] [place], [place] [address] Dr. Jazzy Powell Basophils/100 WBC (Bld) 0.5 % Normal 0.2-2.0 [facility] Comment on above: Performed By: #### C BC #### [facility] [address] [place] [address] Dr. Jazzy Powell EO # 0.3 103/ul Normal 0.0-0.7 [facility] Comment on above: Performed By: #### C BC #### [facility] [address] [place] [address] Dr. Jazzy Powell Eosinophils/100 WBC (Bld) 1.8 % Normal 0.9-7.0 [facility] Comment on above: Performed By: #### C BC #### [facility] [address] [place] [address] Dr. Jazzy Powell Erythrocyte distribution width (RBC) [Ratio] 13.1 % Normal 11.0-15.0 [facility] Comment on above: Performed By: #### C BC #### [facility] [address] [place] [address] Dr. Jazzy Powell Hematocrit (Bld) [Volume fraction] 40.7 % Critically low 42.0-54.0 [facility] Comment on above: Performed By: #### C BC #### [facility] [address] [place] [address] Dr. Jazzy Powell Hemoglobin (Bld) [Mass/Vol] 13.7 g/dL Critically low 14.0-18.0 [facility] Comment on above: Performed By: #### C BC #### [facility] [address] [place] [address] Dr. Jazzy Powell IG # 0.09 10e3/ul Critically high 0.00-0.03 [facility] Comment on above: Performed By: #### C BC #### [facility] [address] [place] [address] Dr. Jazzy Powell IG % 0.5 % Normal 0.0-0.5 [facility] Comment on above: Performed By: #### C BC #### [facility] [address] [place] [address] Dr. Jazzy Powell LYMPH # 4.7 103/ul Critically high 1.2-3.8 [facility] Comment on above: Performed By: #### C BC #### [facility] [address] [place] [address] [address] Jazzy Powell Lymphocytes/100 WBC (Bld) 24.5 % Normal 20.5-60.0 [facility] Comment on above: Performed By: #### C BC #### [facility] [address] [place] [address] Dr. Jazzy Powell MANUAL DIFF REQ NO Normal [facility] Comment on above: Performed By: #### C BC #### [facility] [address] [place] [address] Dr. Jazzy Powell MCH (RBC) [Entitic mass] 30.8 pg Normal 25.9-34.0 [facility] Comment on above: Performed By: #### C BC #### [facility] [address] [place] [address] Dr. Jazzy Powell MCHC (RBC) [Mass/Vol] 33.7 g/dL Normal 29.9-35.2 [facility] Comment on above: Performed By: #### C BC #### [facility] [address] [place] [address] Dr. Jazzy Powell MCV (RBC) [Entitic vol] 91.5 fL Normal 80.0-94.0 [facility] Comment on above: Performed By: #### C BC #### [facility] [address] [place] [address] Dr. Jazzy Powell MONO # 2.5 103/ul Critically high 0.3-0.8 [facility] Comment on above: Performed By: #### C BC #### [facility] [address] [place] [address] Dr. Jazzy Powell Monocytes/100 WBC (Bld) 12.8 % Critically high 1.7-12.0 [facility] Comment on above: Performed By: #### C BC #### [facility] [address] [place] [address] Dr. Jazzy Powell NEUT # 11.6 103/ul Critically high 1.4-6.5 [facility] Comment on above: Performed By: #### C BC #### [facility] [address] [place], [place] [address] Dr. Jazzy Powell Neutrophils/100 WBC (Bld) 59.9 % Normal 43.0-75.0 [facility] Comment on above: Performed By: #### C BC #### [facility] [address] [place], [place] [address] Dr. Jazzy Powell Platelet mean volume (Bld) [Entitic vol] 8.4 fL Critically low 9.5-13.5 [facility] Comment on above: Performed By: #### C BC #### [facility] [address] [place] [id number] Jazzy Powell PLT 332 103/ul Normal 150-450 [facility] Comment on above: Performed By: #### C BC #### [facility] [address] [place] [id number] Jazzy Powell RBC 4.45 106/ul Critically low 4.70-6.10 [facility] Comment on above: Performed By: #### C BC #### [facility] [address] [place], [place] [address] Dr. Jazzy Powell WBC 19.3 103/ul Critically high 4.0-11.0 [facility] Comment on above: Performed By: #### C BC #### [facility] [address] [place], [place] [address] Dr. Jazzy Powell CTA CHEST WO W [...] by: TANNER MACEDO Date: 2022-05-03 20:24 Normal [facility] LIPASEon 05-03-2022 Lipase [Catalytic activity/Vol] 126.0 U/L Normal 73.0-393.0 [facility] Comment on above: Performed By: #### H STROPN, LIPA, BNP, CMP ####[facility] [id number] [place] [address]Dr. Jazzy Powell PROF 14(COMP METB)on 023 Albumin [Mass/Vol] 3.5 g/dL Normal 3.4-5.0 [facility] Comment on above: Performed By: #### H STROPN, LIPA, BNP, CMP ####[facility] [address] [place] [address]Dr. Jazzy Powell Albumin/Globulin [Mass ratio] 1.0 {ratio} Normal [facility] Comment on above: Performed By: #### H STROPN, LIPA, BNP, CMP ####[facility] [address] [place] [address]Dr. Jazzy Powell ALP [Catalytic activity/Vol] 101 U/L Normal 46-116 [facility] Comment on above: Performed By: #### H STROPN, LIPA, BNP, CMP ####[facility] [address] [place] [address]Dr. Jazzy Powell ALT [Catalytic activity/Vol] 27 U/L Normal 16-63 [facility] Comment on above: Performed By: #### H STROPN, LIPA, BNP, CMP ####[facility] [address] [place] [address]Dr. Jazzy Powell Anion gap [Moles/Vol] 6.1 mmol/L Normal [facility] Comment on above: Performed By: #### H STROPN, LIPA, BNP, CMP ####[facility] [address] [place] [address]Dr. Jazzy Powell AST [Catalytic activity/Vol] 15 U/L Normal 15-37 [facility] Comment on above: Performed By: #### H STROPN, LIPA, BNP, CMP ####[facility] [address] [place] [address]Dr. Jazzy Powell Bilirubin [Mass/Vol] 0.3 mg/dL Normal 0.2-1.0 [facility] Comment on above: Performed By: #### H STROPN, LIPA, BNP, CMP ####[facility] [address] [place], [place] [address]Dr. Jazzy Powell Calcium [Mass/Vol] 8.9 mg/dL Normal 8.5-10.1 [facility] Comment on above: Performed By: #### H STROPN, LIPA, BNP, CMP ####[facility] Qnwhe[address] [place], [place] [address]Dr. Jazzy Powell Chloride [Moles/Vol] 104 mmol/L Normal 98-107 [facility] Comment on above: Performed By: #### H STROPN, LIPA, BNP, CMP ####[facility] Hore[address] [place], [place] [address]Dr. Jazzy Powell CO2 [Moles/Vol] 29.4 mmol/L Normal 21.0-32.0 [facility] Comment on above: Performed By: #### H STROPN, LIPA, BNP, CMP ####[facility] [address] [place], [place] [address]Dr. Jazzy Powell Creatinine [Mass/Vol] 0.85 mg/dL Normal 0.70-1.30 [facility] Comment on above: Performed By: #### H STROPN, LIPA, BNP, CMP ####[facility] [address] [place] [address]Dr. Jazzy Powell EGFR-AF GRENADIAN >60 Normal >=60 [facility] Comment on above: Performed By: #### H STROPN, LIPA, BNP, CMP ####[facility] [address] [place] [address]Dr. Jazzy Powell EGFR-NON AF GRENADIAN >60 Normal >=60 [facility] Comment on above: Performed By: #### H STROPN, LIPA, BNP, CMP ####[facility] [address]bw[address] [place] [address]Dr. Jazzy Powell Globulin (S) [Mass/Vol] 3.4 g/dL Normal [facility] Comment on above: Performed By: #### H STROPN, LIPA, BNP, CMP ####[facility] [address] [place] [address]Dr. Jazzy Powell Glucose [Mass/Vol] 95 mg/dL Normal 74-106 [facility] Comment on above: Performed By: #### H STROPN, LIPA, BNP, CMP ####[facility] [address] [place] [address]Dr. Jazzy Powell Potassium [Moles/Vol] 3.5 mmol/L Normal 3.5-5.1 [facility] Comment on above: Performed By: #### H STROPN, LIPA, BNP, CMP ####[facility] S[address] [place] [address]Dr. Jazzy Powell Protein [Mass/Vol] 6.9 g/dL Normal 6.4-8.2 [facility] Comment on above: Performed By: #### H STROPN, LIPA, BNP, CMP ####[facility] [address]ub[address] [place] [address]Dr. Jazzy Powell Sodium [Moles/Vol] 136 mmol/L Normal 136-145 [facility] Comment on above: Performed By: #### H STROPN, LIPA, BNP, CMP ####[facility] [address] [place] [address]Dr. Jazzy Powell Urea nitrogen [Mass/Vol] 17.0 mg/dL Normal 7.0-18.0 [facility] Comment on above: Performed By: #### H STROPN, LIPA, BNP, CMP ####[facility] [address] [place] [address]Dr. Jazzy Powell Urea nitrogen/Creatinine [Mass ratio] 20.0 mg/mg Normal [facility] Comment on above: Performed By: #### H STROPN, LIPA, BNP, CMP ####[facility] [address] [place] [address]Dr. Jazzy Powell PROTIMEon 05-03-2022 INR Coag (PPP) [Relative time] 0.95 {INR} Normal [facility] Comment on above: Performed By: #### P TT, PT ####[facility] [address] [place], [place] [address]Dr. Jazzy Powell INR GUIDELINES SEE BELOW Normal [facility] Comment on above: Result Comment: ANENMARIE RED INR: 2.0 - 3.0 CONDITIONS NOT LISTED BELOW 2.5 - 3.5 FOR PROSTHETIC HEART VALVE REPLACEMENT 2.5 - 3.5 RECURRENT THROMBOSIS Performed By: #### P TT, PT ####[facility] Eq[address] [place], [place] [address]Dr. Jazzy Powell PT Coag (PPP) [Time] 10.1 s Normal 9.0-11.6 [facility] Comment on above: Performed By: #### P TT, PT ####[facility] [address] [place], [place] [address]Dr. Jazzy Powell PTTon 05-03-2022 aPTT Coag (Bld) [Time] 28.7 s Normal 22.3-36.2 [facility] Comment on above: Performed By: #### P TT, PT ####[facility] Oit[address] [place], [place] [address]Dr. Jazzy Powell TROPONIN, HIGH SENSITIVITYon 05-03-2022 HSTROP 5.1 pg/mL Normal 4.0-76.1 [facility] Comment on above: Result Comment: CUT- OFF POINTS HAVE BEEN ESTABLISHED BASED ON THE FOURTH UNIVERSAL DEFINITIONS OF MYOCARDIAL INFARCTION. THE UPPER REFERENCE LIMIT (URL) OF TROPONIN, DEFINED THE 99TH PERCENTILE OF cTnI DISTRIBUTION IN A REFERENCE POPULATION, HAS BEEN CONFIRMED THE DECISION THRESHOLD FOR CT DIAGNOSIS. Performed By: #### H STROPN, LIPA, BNP, CMP ####[facility] [address] [place], [place] [address]WxDr. Jazzy Powell Covid-19 PCR ([facility])on SARS-CoV-2 (COVID-19) RNA ALLIE+probe Ql (Unsp spec) Not detected Normal NOT DETECTED [facility] Comment on above: Result Comment: When [...] for this test is supported by the Agricultural Chemist of Health and Human Service's declaration that [...] longer be used). Performed By: #### C VDTB #### [facility] [address] [place], [place] [address] Dr. Jazzy Powell MRI FOOT LT WO [...] EDSON PEACOCK Date: 2022-01-01 08:53 Normal [facility] Office Visit (Cardiology)on 10-19-2021 Follow-up visit [...] Weight Tips; Status:Complete - Retrospective Authorization; Done: [id number] Some eating tips that can help you lose weight.; Status:Complete - Retrospective Authorization; Done: [id number] SocHx: Current every day smoker Tobacco Use Screening; Status:Complete; Done: [id number] You need to quit smoking.; Status:Complete - Retrospective Authorization; Done: [id number] You need to stop smoking. Though it is not easy, more than half of all adult smokers have quit. We encourage you to write down all the reasons you should quit smoking and set a quit date for yourself. Ask us how we can help. You may also call 1-982-OPSR-NOW for free resources and assistance.; Status:Complete - Retrospective Authorization; Done: [id number] Unlinked Stop: Brilinta 90 MG Oral Tablet [...] negative for complaint. Vitals Vital Signs Recorded: 18Svl2722 02:25PM Heart Rate74, L Radial Nuphukqv088, LUE, Sitting Miikgypat36, LUE, Sitting Height6 ft 2 in Ygdyhc004 lb BMI Wrxnnzlsfd73.64 kg (more content not included)... Normal [facility] [employer] Tobacco Screening.on 022 Fall risk assessment a) No falls within the last year [facility] [address] DO Work Phone: Tobacco use status [facility] a) Yes [facility] [address] DO Work Phone: Tobacco Screening. Yes [facility] [address] DO Work Phone: [facility]20[facility] SELAMASHOK ([id number]) 1965 M Date Time Provider Department 07/04/21 MEGAN INTERIANO During your visit today, we recorded the [...] Encounter Status:Closed by CHARBEL HILL on 07/04/21 [facility] CNOVon 06-06-2021 CNOV Office Visit (SPNSMN ) ASHOK DOSS ([id number]) 1965 M Date Time Provider Department 06/06/21 10:10 AM MEGAN INTERIANOMN During your visit today, we recorded the [...] lumbar laminectomy approx. 20 years ago in [place]. Did well post-op with resolution of sciatica. Has had chronic low back pain. Over the last 6 months he describes episodes of his legs feeling like rubber . Would occur randomly. Over the last 3 months he's started to experience this in the arms as well. 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 Normal [facility] Office Visit (Cardiology)on 05-26-2021 Follow-up visit Diagnoses/Problems [...] we can help. You may also call 2-178-KPWX-NOW for free resources and assistance.; Status:Complete - Retrospective Authorization; Done: 26May2021 Tobacco Use Screening; Status:Complete; Done: 26May2021 Patient Instructions By signing my name below, Silvana Fleming LPN ,Lawanda, attest that this documentation has been prepared under the direction and in the presence of Dr. Leonid Figueredo MD. All medical record entries made by the Scribe were at my direction and personally dictated [...] wall myocardial infarction. He was taken to [place] where he had a coronary intervention and [...] have been (more content not included)... Normal [facility] Tobacco Screening.on 022 Adult depression screening assessment No [facility] [address] DO Work Phone: Heart Rate Regular [facility] [address] DO Work Phone: Tobacco use status CP a) Yes [facility] Si[place]o DO Work Phone: Tobacco Screening. Yes [facility] [address] DO Work Phone: CNPNon 05-17-2021 CNPN Telephone (NIQ) ASHOK DOSS ([id number]) 1965 M Date Time Provider Department 05/17/21 ASHIA BERMEO During your visit today, we recorded the following information about you: Liset Lazcano Biology Laboratory Assistant 05/17/2021 12:43 PM Addendum .Received the following record(s) via fax. -XR Foreign Body Eye, MRI Cspine wo Date 05/05/21 Record(s) scanned into pt's chart. Ashia Bermeo APRN.MARTY 05/17/2021 3:18 PM Signed Awaiting CD copy of imaging. Ashia Bermeo APRN.CASTING INSPECTOR Allergies As of Date: 05/17/2021 (No Known [...] Encounter Status:Closed by ASHIA BERMEO on 05/17/21 [facility] ARTHUR Telephone (NIQ) ASHOK DOSS ([id number]) 1965 M Date Time Provider Department 05/04/21 ASHIA BERMEO During your visit today, we recorded the following information about you: Liset Lazcano Biology Laboratory Assistant 05/04/2021 11:44 AM Signed Lulu from [facility] requesting an Orbit order. Pt is scheduled tomorrow for MRI. Fax - [facility] - [phone] Catherine Stuart RN 05/04/2021 12:16 PM Signed Neuro SPINE CARE COORDINATION QUICK NOTE MRI Cervical order faxed to provided number. Catherine Stuart, RN Mine Car Repairer [facility] 05/04/2021 1:41 PM Signed XR Eye Foreign [...] Encounter Status:Closed by CATHERINE STUART on 05/04/21 [facility] CNOVon 04-24-2021 CNOV Office Visit (SPNSMN ) ASHOK DOSS ([id number]) 1965 M Date Time Provider Department 04/24/21 2:15 PM ASHIA BERMEO SPNSMN During your visit today, we recorded the following information about you: Pulse Respiration Blood pressure Weight 79/minute 18/minute 139/68 118.7 kg Height 1.88 m Ashia Bermeo APRN.CASTING INSPECTOR 04/24/2021 3:14 PM Signed SPINE SURGERY OUTPATIENT [...] lumbar laminectomy approx. 20 years ago in [place]. Did well post-op with resolution of sciatica. [...] Distances ANTIPLATELET OR ANTICOAGULATION STATUS: Yes Previous CT PREVIOUS SPINAL SURGERY: SURGERY #1: L5-S1 Laminectomy in [place] approx. 20 years ago There is no [...] vision or hearing. CARDIOVASCULAR: Hypertension and previous CT RESPIRATORY: Denies SOB, sputum production, and hemoptysis. [...] PHQ-9 04/17/2021 (more content not included)... Normal [facility] Office Visit (Cardiology)on 12-27-2020 Follow-up visit Orders [...] year old male that presents to the [facility] with his for follow-up on testing. 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 Stacy and was added to my schedule today. He has a recent history of an CT with cardiac catheterization 11/18/2020 with PCI and [...] see if cardiac rehabilitation is possible at [facility] that is closest to his home. [...] 1. CAD; with acute inferior ST elevation CT requiring cardiac catheterization 11/18/2020 with PCI and [...] itching CARDIOVASCULAR:N (more content not included)... Normal [facility] Tobacco Screening.on 021 Fall risk assessment a) No falls within the last year [place] [address] DO Work Phone: Tobacco use status [facility] a) Yes [place] [address] DO Work Phone: Tobacco Screening. Yes [place] [address] DO Work Phone: Cardiac Stress Teston 2020 Cardiac Stress Test [facility] [address], [address] [place], [place] [id number] Exercise Stress Test Patient Name: ASHOK DOSS Ordering Physician: [id number] Rachel Stacy MD Study Date: 12/23/2020 Reading Physician: [id number] Antony Pena MD, [facility] MRN/PID: [id number] Supervising Physician: Accession/Order#: [id number] Referring Physician: Sheridan RACHEL STACY Date of : 1965 PCP: Gender: M Fellow: Height: 187.96 cm Nurse: Frida Dewey RN Weight: 119.75 kg Pourer Buggy Ladle: N/A BSA: 2.45 m2 Technologist: BMI: 33.90 kg/m2 Additional Staff: Age: 55 years cc report to: Patient Location: [facility] cc report to: [id number] Rachel Stacy MD Study Type: Cardiac Stress Test Diagnosis/ICD: I25.10-Atherosclerotic heart disease; I21.19-ST elevation (STEMI) myocardial infarction involving other coronary artery of inferior wall Indication: CAD, INF. CT Procedure/CPT: Stress Test Interpretation-10013; Stress Test Supervision-01155 Falls Risk: Patient Performance: The patient exercised [...] The inadequate level of stress was achieved. [id number] Antony Pena MD, FACC Electronically signed on 12/23/2020 at 5:13:30 PM Final Normal [facility] Cardiac Stress Test [facility] [address] [place] Work Phone: Echocardiogramon 12-23-2020 Echocardiography [facility] [address], [address], [place], [place] [address] TRANSTHORACIC ECHOCARDIOGRAM REPORT Patient Name: ASHOK DOSS Reading Physician: [id number] Antony Pena MD, [facility] Study Date: 12/23/2020 Referring Physician: [id number] RACHEL STACY MRN/PID: [id number] PCP: Colten Parra MD Accession/Order#: [id number] Department Location: [facility] Date of : 1965 Fellow: Gender: M Nurse: Admit Date: Pourer Buggy Ladle: Latanya Yadav RDCS, RT(R), RDMS, RVT Height: 187.96 cm CC Report to: Weight: 119.75 kg Study Type: Echocardiogram BSA: 2.45 m2 Diagnosis/ICD: I25.10-Atherosclerotic heart disease of [place] coronary artery without angina pectoris; I21.19-ST elevation (STEMI) myocardial infarction involving other coronary artery of inferior wall Indication: HTN PTCA Procedure/CPT: Echo Complete w Full Doppler-19651 Study Detail: The following Echo studies were [...] 0.8 m/s (0.6-0.9m/s) PV Max P.5 mmHg [id number] Antony Pena MD, FACC Electronically signed on 12/23/2020 at 11:56:24 AM Final Normal [facility] Echocardiography Please click on the link to view the study images Normal -[facility] [address] [place] Work Phone: Discharge Planning Ayqz6ek 0 11-20-2020 Discharge Planning Note2 Discharge Planning: Discharge Barriersnone Planned Disposition[facility] 20no PCP/Next Provider Follow Up Scheduledyes Anticipated Discharge [id number] Discharge Planning 11/20/20 tcc NOTE: ROUNDED WITH NURSING, PT ADMITTED FOR NSTEMI, STARTED ON BRILINTA. ADDED TERRAZZO INSTALLER REFERRAL TO FOLLOW OUTPT . PT TO BE DISCHARGED WITH PRESCRIPTION FOR BRILINTA. DISCOUNT BRILINTA CARD PROVIDED TO NURSING WITH GOOD RX . PT TO BE DISCHARGED HOME ON THIS DATE. NO FURTHER NEEDS IDENTIFIED. NURSING AM-PAC 24, PLAN IS HOME WITH FAMILY. ANJELICA RUSS RN TCC Assessment: Discharge Planning Assessment [id number] Discharge Documentation: Discharge/Transfer Date/[id number] 14:21 Discharged Accompanied Byspouse Discharge Modeambulatory Transportation Methodprivate car Valuables/Medications/B elongings Returnedyes Final DispositionHome Electronic Signatures: Anjelica Russ (ROVING TELLER) (Signed 20-Nov-2020 13:02) Authored: Discharge Planning, Assessment Madhavi Moore (RN) (Signed 20-Nov-2020 14:21) Authored: Discharge Planning, Discharge Documentation Last Updated: 20-Nov-2020 14:21 by Madhavi Moore (RN) Normal [facility] Discharge [id number] 021 Discharge Profile2 Discharge Orders: Anticipated Discharge Date: Anticipated Discharge [id number] Anticipated Discharge Time12:18 Problem List: Additional Dx: [...] hour away, and will be seeking a compressor operator closer to home, but will be seen at [facility] with me within 1 week to go [...] Physician/Dept/ServiceP nacho call Dr. Stacy's office at [phone], patient should be seen within the next week. Call to Schedule in1 week Electronic Signatures: Rachel Stacy) (Signed 20-Nov-2020 12:27) Authored: Discharge Orders, Hospital Course (Home Care/Gold Form), Provider FINAL REVIEW of Orders, Appointments, Gold Form - Internal Revenue Service Agent Summary Last Updated: 20-Nov-2020 12:27 by Rachel Stacy) [facility] Order Reconciliationon 11-20 Order Reconciliation Page 1 [...] Oral At BedtimeClinician Notes: first dose tonight 18-Nov-2020 23:39 atorvastatin 80 mg oral tablet 1 [...] patch TransDermal Every 24 HoursNotes from Pharmacy: 18-Nov-2020 23:39 nicotine 21 mg/24 hr transdermal [...] tab(s) orally 2 times a day Normal [facility] APTTon 11-19-2020 APTT Canceled Normal [facility] Comment on above: Order Comment: TEST APTT WAS CANCELLED, 11/19/2020 03:59 DUPLICATE ORDER. Result Comment: THE APTT IS NO LONGER USED FOR MONITORING UNFRACTIONATED HEPARIN THERAPY. FOR MONITORING HEPARIN THERAPY, USE THE HEPARIN ASSAY. Performed By: #### A PTT ####[facility] [place], [place] [id number] aPTT Coag (Bld) [Time] 28 s Normal 25 - 35 [facility] Comment on above: Result Comment: THE APTT IS NO LONGER USED FOR MONITORING UNFRACTIONATED HEPARIN THERAPY. FOR MONITORING HEPARIN THERAPY, USE THE HEPARIN ASSAY. Performed By: #### A PTT #### [address] [id number] BASIC METABOLIC PANELon 11-02 Anion gap [Moles/Vol] 12 mmol/L Normal 10 - 20 [facility] Comment on above: Performed By: #### B MP #### [address] [id number] Calcium [Mass/Vol] 8.4 mg/dL Low 8.6 - 10.3 [facility] Comment on above: Performed By: #### B MP #### [address] [id number] Chloride [Moles/Vol] 109 mmol/L High 98 - 107 [facility] Comment on above: Performed By: #### B MP #### [address] [id number] Creatinine [Mass/Vol] 0.83 mg/dL Normal 0.50 - 1.30 [facility] Comment on above: Performed By: #### B MP #### [address] [id number] GFR- AM. >60 Normal >60 [facility] Comment on above: Result Comment: CALC ULATIONS OF ESTIMATED GFR ARE PERFORMED USING THE MDRD STUDY EQUATION FOR THE IDMS-TRACEABLE CREATININE METHODS. CLIN CHEM 2007;53:766-72 Performed By: #### B MP #### [address] [id number] GFR-NON AM. >60 Normal >60 [facility] Comment on above: Performed By: #### B MP #### [address] [id number] Glucose [Mass/Vol] 115 mg/dL High 74 - 99 [facility] Comment on above: Performed By: #### B MP #### [address] [id number] HCO3 (Bld) [Moles/Vol] 23 mmol/L Normal 21 - 32 [facility] Comment on above: Performed By: #### B MP #### [address] [id number] Potassium [Moles/Vol] 3.8 mmol/L Normal 3.5 - 5.3 [facility] Comment on above: Performed By: #### B MP #### [address] [place] [id number] Sodium [Moles/Vol] 140 mmol/L Normal 136 - 145 [facility] Comment on above: Performed By: #### B MP #### [facility] [address] [place], [place] [id number] Urea nitrogen [Mass/Vol] 20 mg/dL Normal 6 - 23 [facility] Comment on above: Performed By: #### B MP #### [facility] [address] [place], [place] [id number] CBCon 11-19-2020 Erythrocyte distribution width (RBC) [Ratio] 13.3 % Normal 11.5 - 14.5 [facility] Comment on above: Performed By: #### C BC ####[address] [place], [place] [id number] Hematocrit (Bld) [Volume fraction] 41.2 % Normal 41.0 - 52.0 [facility] Comment on above: Performed By: #### C BC ####[address] [place], [place] [address] Hemoglobin (Bld) [Mass/Vol] 13.5 g/dL Normal 13.5 - 17.5 [facility] Comment on above: Performed By: #### C BC ####[address] [id number] MCHC (RBC) [Mass/Vol] 32.8 g/dL Normal 32.0 - 36.0 [facility] Comment on above: Performed By: #### C BC ####[facility] [place], [place] [id number] MCV (RBC) [Entitic vol] 93 fL Normal 80 - 100 [facility] Comment on above: Performed By: #### C BC ####[address] [id number] Platelets (Bld) [#/Vol] 333 10*3/uL Normal 150 - 450 [facility] Comment on above: Performed By: #### C BC ####[address], [place] [id number] RBC 4.42 x10E12/L Low 4.50 - 5.90 [facility] Comment on above: Performed By: #### C BC ####[facility] [place], [place] [id number] WBC (Bld) [#/Vol] 22.9 10*3/uL High 4.4 - 11.3 [facility] Comment on above: Performed By: #### C BC ####[facility] [place], [place] [id number] Consult-Critical Careon 11-02 Consult-Critical Care Service: Service: Critical Care Consult: Consult requested by (Attending Name): Rachel Stacy Reason: ICU MANAGEMENT History of Present Illness: Admission Reason: Inferior Wall STEMI HPI: ASHOK DOSS is a 55 year old Male Pmhx HTN and active smoker Presented to [facility] ED [place] d/t Chest pain. Described it as crushing mid sternal pain with radiation to the Left arm. He went to [facility] Last week d/t CP and had respiratory complaints and was sent home and was told he had bronchitis and CP could be 2/2 to. He states he had CP before but never like this, he associated complaints with diaphoresis, presyncopal x2 and weakness. No history of CT before but he is an active pack [...] ankle surgery, carpal tunnel Family history: Father CT, CHF Mother: CAD Social History: Pack a [...] prophylaxis Heme/ID: Elevated WBC 2/[address] SCDs for DVT prophylaxis, Enoxaparin -pharmacological DVT measures -hold for now Msk/Integumentaty PT/OT Social/family/dispo: admit to ICU Code; Full *Plan discussed at length with bedside RN and Dr. Zaid Posey MD Consult Status: Consult Order ID: [id number] Attestation: Note Completion: I am a: Advanced Practice Provider Attending Only - Shared Visit with Advanced Practice ProviderThis is a shared visit. I have revi (more content not included)... Normal [facility] Daily Progress Note - Critic al Care-SICUon [...] 150-170mmhg. Objective Data: Objective Information T PRBPSpO2 [id number]/7799% Date/Time11/19 1:309/18 17:41918 17:41918 17: 17:41 Range(37.1C - 37.1C ) (66 - 98 ) (12 - 28 ) (108 - 178 )/ (51 - 97 ) (94% - 100% ) As of 18-Nov-2020 21:05:00, patient is on 3 L/min of oxygen via room air. Highest temp of 37.1 C was recorded at 11/18 21:05 Pain reported at 11/19 7:30: 0 = None ---- Intake and Output ----- Mn/Dy/[facility]Out[facility] Nov 19, 2020 6:00 [id number] The Intake and Output Totals for the last 24 hours are: [facility]OutNov[facility] [id number] Date: Weight/Scale Type: 18-Nov-2020 23:53879.7 kg Physical Exam by System: Neurological: alert [...] the bedside L3 Electronic Signatures: Leia Stearns (SWEATBAND CUTTING MACHINE OPERATOR-CASTING INSPECTOR) (Signed 19-Nov-2020 18:30) Authored: Service, Subjective Data, Objective Data, Assessment and Plan José Miguel Posey) (Signed 19-Nov-2020 22:22) Authored: Note Completion Last Updated: 19-Nov-2020 22:22 by José Miguel Posey) Normal [facility] Daily Progress Note-Cardiofloresita gayle 11-19-2020 Daily Progress Note-Cardiology Service: Cardiology History [...] 2. Objective Data: Objective Information: T PRBPSpO2 [id number]/8297% Date/Time11/19 1:309 13:309 13:309 13:309 13:30 Range(37.1C - 37.1C ) (66 - 98 ) (12 - 28 ) (108 - 178 )/ (51 - 97 ) (94% - 100% ) As of 18-Nov-2020 21:05:00, patient is on 3 L/min of oxygen via room air. Highest temp of 37.1 C was recorded at 11/18 21:05 Pain reported at 11/19 7:30: 0 = None ---- Intake and Output ----- Mn/Dy/Year TimeIntakeOutNov[facility] Nov 19, 2020 6:00 [id number] The Intake and Output Totals for the last 24 hours are: IntakeOutputNet [id number] Recent Lab Results: Results: CBC: 11/19/2020 05:23 [...] Updated: 19-Nov-2020 17:17 by Rachel Stacy) Normal [facility] HEPARIN ASSAY,UFHon 11-20-19 21 HEPARIN ASSAY,UFH 0.2 IU/mL Normal [facility] Comment on above: Result Comment: The therapeutic reference range for UFH may be either 0.3-0.6 IU/mL or 0.3-0.7 IU/mL based on the clinical setting for anticoagulant therapy and the associated nomogram used. For heparin dosing guidelines based on clinical scenario and Heparin Assay results, please refer to local Pharmacy and the [facility] Guidelines for Anticoagulation therapy available on the [facility] [[email or web address]] intranet at: [email or web address]://[email or web address]/Pages/[facility]_Guid elines_for_Anticoagu.aspx Performed By: #### T ROP2 #### [address] [id number] HEPARIN ASSAY,UFH 0.2 IU/mL Normal [facility] Comment on above: Result Comment: The therapeutic reference range for UFH may be either 0.3-0.6 IU/mL or 0.3-0.7 IU/mL based on the clinical setting for anticoagulant therapy and the associated nomogram used. For heparin dosing guidelines based on clinical scenario and Heparin Assay results, please refer to local Pharmacy and the [facility] Guidelines for Anticoagulation therapy available on the [facility] [[email or web address]] intranet at: https://[email or web address]/Pharmacy/Pages/[facility] pitals_Guid elines_for_Anticoagu.aspx Performed By: #### T ROP2 #### [address] [id number] HEPARIN ASSAY,UFH <0.1 Normal [facility] Comment on above: Result Comment: The therapeutic reference range for UFH may be either 0.3-0.6 IU/mL or 0.3-0.7 IU/mL based on the clinical setting for anticoagulant therapy and the associated nomogram used. For heparin dosing guidelines based on clinical scenario and Heparin Assay results, please refer to local Pharmacy and the [facility] Guidelines for Anticoagulation therapy available on the [facility] [[email or web address]] intranet at: https://[email or web address]/[email or web address]/Pages/[facility]_for_Anticoagu.aspx Performed By: #### T ROP2 #### [address] [id number] MAGNESIUMon 11-19-2020 Magnesium [Mass/Vol] 1.80 mg/dL Normal 1.60 - 2.40 [facility] Comment on above: Performed By: #### T ROP2 #### [address] [id number] Measurementson 11-19-2020 Measurements Weight: Weight in kg124.7 kilogram(s) Height: Height in cm188 centimeter(s) Estonian Unit Translation (pounds, inches): Measurement Estonian Unit Translations (Adult only): Weight in dqa118.916 pound(s) Electronic Signatures: Maggie Muir (STAFF N) (Signed 18-Nov-2020 23:08) Authored: Weight, Height, Estonian Unit Translation (pounds, inches) Last Updated: 18-Nov-2020 23:08 by Maggie Muir (STAFF N) Normal [facility] PT/INRon 11-19-2020 PROTHROMBIN TIME Canceled Normal [facility] Comment on above: Order Comment: TEST PT/INR WAS CANCELLED, 11/19/2020 01:33 Performed By: #### P TINR #### [address] [id number] PT, INR Canceled Normal [facility] Comment on above: Order Comment: TEST PT/INR WAS CANCELLED, 11/19/2020 01:33 Performed By: #### P TINR #### [address] [id number] PT Coag (PPP) [Time] 12.8 s Normal 10.1 - 13.3 [facility] Comment on above: Performed By: #### P TINR #### [address] [id number] PT, INR 1.1 Normal 0.9 - 1.1 [facility] Comment on above: Performed By: #### P TINR #### [address] [id number] TROPONIN Ion 11-19-2020 Troponin I.cardiac [Mass/Vol] 10.69 ng/mL Critically high 0.00 - 0.03 [facility] Comment on above: Order Comment: Hedy JOSE to Shelia GOODMAN , 11/19/2020 21:43 Result [...] is performed using different testing methodology at [facility] than at other [facility]. Direct result comparisons should only be made within the same method. Marce- RB to Shelia GOODMAN , 11/19/2020 21:43 Performed By: #### T ROP2 #### [address] [id number] Troponin I.cardiac [Mass/Vol] 12.77 ng/mL Critically high 0.00 - 0.03 [facility] Comment on above: Order Comment: Hedy JOSE to Michaelle David, 11/19/2020 13:36 Result Comment: [...] is performed using different testing methodology at [facility] than at [facility]. Direct result comparisons should only be made within the same method. Called- RB to Michaelle David, 11/19/2020 13:36 Performed By: #### T ROP2 #### [address] [id number] Troponin I.cardiac [Mass/Vol] 18.39 ng/mL Critically high 0.00 - 0.03 [facility] Comment on above: Order Comment: Hedy JOSE to Omar Muir, 11/19/2020 06:26 Result Comment: [...] is performed using different testing methodology at [facility] than at other [facility]. Direct result comparisons should only be made within the same method. Called- RB to Omar Muiridy, 11/19/2020 06:26 Performed By: #### T ROP2 #### [address] [id number] TROPONIN I Canceled Normal [facility] Comment on above: Order Comment: Hedy JOSE to Shelia GOODMAN , 11/19/2020 21:43 Result [...] is performed using different testing methodology at [facility] than at other [facility]. Direct result comparisons should only be made within the same method. Performed By: #### T ROP2 #### [facility] [address] [place], [place] [id number] Troponin I.cardiac [Mass/Vol] 17.54 ng/mL Critically high 0.00 - 0.03 [facility] Comment on above: Order Comment: Knott d- RB to Bandar Baez, 11/19/2020 02:22 Result [...] is performed using different testing methodology at [facility] than at other [facility]. Direct result comparisons should only be made within the same method. Called- RB to Bandar Cesar, 11/19/2020 02:22 Performed By: #### T ROP2 ####[facility] [place], [place] [id number] ACT-LOW RANGEon 11-18-2020 ACT-LOW RANGE 294 SECONDS High 89 - 169 [facility] Comment on above: Result Comment: Note new reference range as of 06/06/2018. Target ACT range will vary based on the patient population, clinical status, and surgical intervention occurring. Performed By: #### T ROP2 #### [address] [id number] ACT-LOW RANGE 207 SECONDS High 89 - 169 [facility] Comment on above: Result Comment: Note new reference range as of 06/06/2018. Target ACT range will vary based on the patient population, clinical status, and surgical intervention occurring. Performed By: #### T ROP2 #### [address] [id number] BNPon 11-18-2020 Natriuretic peptide B (Bld) [Mass/Vol] 33 pg/mL Normal 0 - 99 [facility] Comment on above: Result Comment: . <1 00 pg/mL - Heart failure unlikely 100-299 pg/mL - Intermediate probability of acute heart . failure exacerbation. Correlate with clinical . context and patient history. >=300 pg/mL - Heart Failure likely. Correlate with clinical . context and patient history. BNP testing is performed using different testing methodology at [facility] than at other [facility]. Direct result comparisons should only be made within the same method. Performed By: #### B MP #### [facility] [address] [place], [place] [id number] CBCon 11-18-2020 Erythrocyte distribution width (RBC) [Ratio] 13.3 % Normal 11.5 - 14.5 [facility] Comment on above: Performed By: #### C BC ####[address] [place], [place] [id number] Hematocrit (Bld) [Volume fraction] 44.7 % Normal 41.0 - 52.0 [facility] Comment on above: Performed By: #### C BC ####[address] [id number] Hemoglobin (Bld) [Mass/Vol] 14.6 g/dL Normal 13.5 - 17.5 [facility] Comment on above: Performed By: #### C BC ####[address] [place], [place] [id number] MCHC (RBC) [Mass/Vol] 32.7 g/dL Normal 32.0 - 36.0 [facility] Comment on above: Performed By: #### C BC ####[facility] [place], [place] [id number] MCV (RBC) [Entitic vol] 92 fL Normal 80 - 100 [facility] Comment on above: Performed By: #### C BC ####[address] [place], [place] [id number] Platelets (Bld) [#/Vol] 395 10*3/uL Normal 150 - 450 [facility] Comment on above: Performed By: #### C BC ####[address] [id number] RBC 4.85 x10E12/L Normal 4.50 - 5.90 [facility] Comment on above: Performed By: #### C BC ####[address] [place], [place] [id number] WBC (Bld) [#/Vol] 21.9 10*3/uL High 4.4 - 11.3 [facility] Comment on above: Performed By: #### C BC ####[address] [place], [place] [id number] CHEST 1 VIEWon 11-18-2020 CHEST 1 VIEW STUDY: Chest Radiograph; 11/18/2020 7:22 PM. INDICATION: Concern for dissection, chest pain. COMPARISON: None Available. ACCESSION NUMBER(S): [id number] ORDERING CLINICIAN: JERRY BLAIR MD TECHNIQUE: Frontal chest was obtained at 1919 hours. FINDINGS: CARDIOMEDIASTINAL SILHOUETTE: Cardiomediastinal silhouette is normal in size and configuration. LUNGS: Lungs are clear. ABDOMEN: No remarkable upper abdominal findings. BONES: No acute osseous changes. IMPRESSION: No acute cardiopulmonary process seen. Signed by Racquel Griffiths MD Electronically signed by: RACQUEL GRIFFITHS MD Normal [facility] COMPREHENSIVE PANELon 2020 Albumin [Mass/Vol] 4.2 g/dL Normal 3.4 - 5.0 [facility] Comment on above: Performed By: #### C MP ####[address] [id number] ALP [Catalytic activity/Vol] 74 U/L Normal 33 - 120 [facility] Comment on above: Performed By: #### C MP ####[address] [id number] ALT [Catalytic activity/Vol] 19 U/L Normal 10 - 52 [facility] Comment on above: Result Comment: Carmelita ents treated with Sulfasalazine may generate falsely decreased results for ALT. Performed By: #### C MP ####[address] [id number] Anion gap [Moles/Vol] 12 mmol/L Normal 10 - 20 [facility] Comment on above: Performed By: #### C MP ####[address] [id number] AST [Catalytic activity/Vol] 15 U/L Normal 9 - 39 [facility] Comment on above: Performed By: #### C MP ####[address] [id number] Bilirubin [Mass/Vol] 0.3 mg/dL Normal 0.0 - 1.2 [facility] Comment on above: Performed By: #### C MP ####[address] [id number] Calcium [Mass/Vol] 9.4 mg/dL Normal 8.6 - 10.3 [facility] Comment on above: Performed By: #### C MP ####[address] [id number] Chloride [Moles/Vol] 107 mmol/L Normal 98 - 107 [facility] Comment on above: Performed By: #### C MP ####[address] [id number] Creatinine [Mass/Vol] 1.12 mg/dL Normal 0.50 - 1.30 [facility] Comment on above: Performed By: #### C MP ####[address] [id number] GFR- AM. >60 Normal >60 [facility] Comment on above: Result Comment: CALC ULATIONS OF ESTIMATED GFR ARE PERFORMED USING THE MDRD STUDY EQUATION FOR THE IDMS-TRACEABLE CREATININE METHODS. CLIN CHEM 2007;53:766-72 Performed By: #### C MP ####[address] [id number] GFR-NON AM. >60 Normal >60 [facility] Comment on above: Performed By: #### C MP ####[address] [id number] Glucose [Mass/Vol] 113 mg/dL High 74 - 99 [facility] Comment on above: Performed By: #### C MP ####[facility] [place], [place] [id number] HCO3 (Bld) [Moles/Vol] 28 mmol/L Normal 21 - 32 [facility] Comment on above: Performed By: #### C MP ####[facility] [place], [place] [id number] Potassium [Moles/Vol] 3.8 mmol/L Normal 3.5 - 5.3 [facility] Comment on above: Performed By: #### C MP ####[address] [place], [place] [id number] Protein [Mass/Vol] 7.0 g/dL Normal 6.4 - 8.2 [facility] Comment on above: Performed By: #### C MP ####[address] [place], [place] [id number] Sodium [Moles/Vol] 143 mmol/L Normal 136 - 145 [facility] Comment on above: Performed By: #### C MP ####[address] [place], [place] [id number] Urea nitrogen [Mass/Vol] 19 mg/dL Normal 6 - 23 [facility] Comment on above: Performed By: #### C MP ####[address] [place], [place] [id number] CORONAVIRUS 2019, SCREEN ASY MPTOMATICon 11-18-2020 SARS-CoV-2 (COVID-19) RNA ALLIE+probe Ql (Unsp spec) Not detected Normal Not Detected [facility] Comment on above: Result Comment: . This test has received FDA Emergency Use Authorization (EUA) and has been verified by [facility]. This test is only authorized for the duration of time that circumstances exist to justify the authorization of the emergency use of in vitro diagnostic tests for the detection of SARS-CoV-2 virus and/or diagnosis of COVID-19 infection under section 564(b)(1) of the Act, 21 U.S.C. 360bbb-3(b)(1), unless the authorization is terminated or revoked sooner. [facility] is certified under CLIA-88 as qualified to perform high complexity testing. Testing is performed in the [facility] laboratory located at [address] [place] [address]. SARS-CoV-2/Flu/RSV Multiplex Test: Fact sheet for providers: https://www.fda.gov/media/673385/download Fact sheet for patients: https://www.fda.gov/media/573244/download Performed By: #### C OVSC ####[facility] [place], [place] [id number] Lab Specimen Source Nasal, Nasopharyngeal Normal [facility] Comment on above: Performed By: #### C OVSC ####[address] [place], [place] [id number] Covid 19 Resultson 1 SARS-CoV-2 (COVID-19) RNA [...] You may also be contacted by the [facility] to see if any of [...] or Naproxen (Aleve) can also be used. Jtrb-wal-fwgxyog cough and cold medicines can be used according to the instructions on the package. Some gzfz-kqf-qfcjekg medicines also contain acetaminophen. Make sure you [...] water are not available, use alcohol-based hand riprap placer. Avoid touching your eyes, nose, and mouth [...] 24 oliva (more content not included)... Normal [facility] PCI (Percutaneous Cardiac In tervention)on 11-18-2020 PCI (Percutaneous Cardiac Intervention) [facility], [employer] [address] [place] [address] Cardiovascular Catheterization Report Patient Name: Ashok Doss Performing Physician: Sheridan Stacy MD Study Date: 11/18/2020 Verifying Physician: Sheridan Stacy MD MRN/PID: [id number] Property Maintenance Technician: Accession/Order#: [id number] Referring Physician: [id number] José Miguel Posey MD Date of : 1965 Referring Physician: Gender: M Referring Physician: Sheridan Stacy MD Study: Left Heart Catheterization Indications: [...] a modified Seldinger technique. Subsequently a 6 Slovenian sheath was placed in the right femoral [...] less than 10% distal stenosis. First septal hand carver is moderately large and has 0% stenosis. [...] used. Complications (more content not included)... Normal [facility] Provider Note - ED v3on 09- Provider Note - ED v3 Provider Note: [...] try and relieve some of his symptoms. [employer] was activated prehospital and the [employer] team was at the bedside upon his arrival. Obtained a quick chest x-ray given he reported that the pain was sharp and radiating to his arm which not show pneumothorax and did not show a widened mediastinum so I doubt he is having dissection. [employer] was available so patient was taken directly to [facility] [employer] [facility] [employer] for percutaneous intervention for his ST segment elevation CT. I did speak with the catering server team to let them know that the patient be coming to them afterwards. DIAGNOSIS: STEMI DISPOSITION: 1) [employer] HISTORY OF PRESENTING ILLNESS ASHOK is a [...] Updated: 18-Nov-2020 20:27 by Jerry Blair) Normal [facility] TROPONIN Ion 11-18-2020 Troponin I.cardiac [Mass/Vol] 0.03 ng/mL Normal 0.00 - 0.03 [facility] Comment on above: Result Comment: LESS THAN [...] is performed using different testing methodology at [facility] than at other [facility]. Direct result comparisons should only be made within the same method. Performed By: #### T ROP2 ####[facility] [place], [place] [id number] Troponinon 05-05-2020 Troponin I.cardiac [Mass/Vol] 7 ng/L Normal 0-22 [facility] Comment on above: Result Comment: High Sensitivity Troponin values cannot be compared with other Troponin methodologies. Patients with high levels of Biotin oral intake (i.e >5mg/day) may have falsely decreased Troponin levels. Samples collected within 8 hours of biotin intake may require additional information for diagnosis. Performed By: #### T ALEXANDRAI #### [facility] [address] [place] [address] [id number] Distribution Estimator: Shane Peña MD Troponin I.cardiac [Mass/Vol] NOT REPORTED [facility] Phone: Troponin T.cardiac [Mass/Vol] NOT REPORTED <0.03 ng/mL [facility] Phone: Troponin, High Sensitivity 7 ng/L 0 - 22 ng/L [facility] Phone: Comment on above: High Sensitivity Troponin values cannot be compared with other Troponin methodologies. Patients with high levels of Biotin oral intake (i.e >5mg/day) may have falsely decreased Troponin levels. Samples collected within 8 hours of biotin intake may require additional information for diagnosis. Troponinon 05-04-2020 Troponin I.cardiac [Mass/Vol] NOT REPORTED Normal [facility] Comment on above: Performed By: #### T WILLY #### [facility] [address] [place] [address] [id number] Distribution Estimator: Shane Peña MD CBCon 05-03-2020 Erythrocyte distribution width (RBC) [Ratio] 12.9 % Normal 11.8-14.4 [facility] Comment on above: Performed By: #### C BC, CP, LIPR, TSH #### [facility] [address] [place] [address] [id number] Distribution Estimator: Shane Peña MD Hematocrit (Bld) [Volume fraction] 43.3 % Normal 40.7-50.3 [facility] Comment on above: Performed By: #### C BC, CP, LIPR, TSH #### [address] [address] Distribution Estimator: Shane Peña MD Hemoglobin (Bld) [Mass/Vol] 14.0 g/dL Normal 13.0-17.0 [facility] Comment on above: Performed By: #### C BC, CP, LIPR, TSH #### [address] [address] Distribution Estimator: Shane Peña MD MCH (RBC) [Entitic mass] 29.6 pg Normal 25.2-33.5 [facility] Comment on above: Performed By: #### C BC, CP, LIPR, TSH #### [address] [address] Distribution Estimator: Shane Peña MD MCHC (RBC) [Mass/Vol] 32.3 g/dL Normal 28.4-34.8 [facility] Comment on above: Performed By: #### C BC, CP, LIPR, TSH #### [address] [address] Distribution Estimator: Shane Peña MD MCV (RBC) [Entitic vol] 91.5 fL Normal 82.6-102.9 [facility] Comment on above: Performed By: #### C BC, CP, LIPR, TSH #### [address] [address] Distribution Estimator: Shane Peña MD NRBC Automated 0.0 per 100 WBC Normal 0.0 [facility] Comment on above: Performed By: #### C BC, CP, LIPR, TSH #### [facility] [employer] [address] [place] [address] Distribution Estimator: Shane Peña MD Platelet mean volume (Bld) [Entitic vol] 9.1 fL Normal 8.1-13.5 [facility] Comment on above: Performed By: #### C BC, CP, LIPR, TSH #### [facility] [address] [place] [address] Distribution Estimator: Shane Peña MD Platelets (Bld) [#/Vol] 410 10*3/uL Normal 138-453 [facility] Comment on above: Performed By: #### C BC, CP, LIPR, TSH #### [facility] [address] [place] [address] Distribution Estimator: Shane Peña MD RBC (Bld) [#/Vol] 4.73 10*6/uL Normal 4.21-5.77 [facility] Comment on above: Performed By: #### C BC, CP, LIPR, TSH #### [facility] [address] [place] [address] Distribution Estimator: Shane Peña MD WBC (Bld) [#/Vol] 14.2 10*3/uL High 3.5-11.3 [facility] Comment on above: Performed By: #### C BC, CP, LIPR, TSH #### [facility] [address] [place] [address] Distribution Estimator: Shane Peña MD Erythrocyte distribution width (RBC) [Ratio] 12.9 % 11.8 - 14.4 % [facility] Phone: Hematocrit (Bld) [Volume fraction] 43.3 % 40.7 - 50.3 % [facility] Phone: Hemoglobin (Bld) [Mass/Vol] 14.0 g/dL 13 - 17 g/dL [facility] Phone: Interpretation and review of laboratory results Abnormal [facility] Phone: MCH (RBC) [Entitic mass] 29.6 pg 25.2 - 33.5 pg [facility] Phone: MCHC (RBC) [Mass/Vol] 32.3 g/dL 28.4 - 34.8 g/dL [facility] Phone: MCV (RBC) [Entitic vol] 91.5 fL 82.6 - 102.9 fL [facility] Phone: Platelet mean volume (Bld) [Entitic vol] 9.1 fL 8.1 - 13.5 fL [facility] Phone: Platelets (Bld) [#/Vol] 410 10*3/uL [facility] Phone: RBC (Bld) [#/Vol] 4.73 10*6/uL 4.21 - 5.7 7 m/uL [facility] Phone: WBC (Bld) [#/Vol] 0.0 10*3/uL 0.0 per 10 0 WBC [facility] Phone: WBC (Bld) [#/Vol] 14.2 10*3/uL High [facility] Phone: Comp Metabolic Profon 2020 (cont.) Normal [facility] Comment on above: Result Comment: Aver age GFR for 50-59 years old: 93 mL/min/1.73sq m Chronic Kidney Disease: <60 mL/min/1.73sq m Kidney failure: <15 mL/min/1.73sq m eGFR calculated using average adult body mass. Additional eGFR calculator available at: http://www.TalkPlus.ScribeStorm/multiple_crcl_2011.htm Performed By: #### C BC, CP, LIPR, TSH #### [facility] [address] [place], [place] [id number] Distribution Estimator: Shane Peña MD Albumin [Mass/Vol] 4.1 g/dL Normal 3.5-5.2 [facility] Comment on above: Performed By: #### C BC, CP, LIPR, TSH #### [facility] [address] [place], [place] [id number] Distribution Estimator: Shane Peña MD Albumin/Globulin [Mass ratio] 1.8 {ratio} Normal 1.0-2.5 [facility] Comment on above: Performed By: #### C BC, CP, LIPR, TSH #### [facility] [employer] [address] [place] [address] Distribution Estimator: Shane Peña MD Alkaline Phos 80 U/L Normal 40-129 [facility] Comment on above: Performed By: #### C BC, CP, LIPR, TSH #### [facility] [address] [place] [address] Distribution Estimator: Shane Peña MD ALT [Catalytic activity/Vol] 18 U/L Normal 5-41 [facility] Comment on above: Performed By: #### C BC, CP, LIPR, TSH #### [facility] [employer] [address] [place] [address] [id number] Distribution Estimator: Shane Peña MD Anion gap [Moles/Vol] 9 mmol/L Normal 9-17 [facility] Comment on above: Performed By: #### C BC, CP, LIPR, TSH #### [facility] [employer] [address] [place] [address] Distribution Estimator: Shane Peña MD AST [Catalytic activity/Vol] 15 U/L Normal <40 [facility] Comment on above: Performed By: #### C BC, CP, LIPR, TSH #### [facility] [employer] [address] [place] [address] Distribution Estimator: Shane Peña MD Bilirubin Ql (U) 0.32 mg/dL Normal 0.3-1.2 [facility] Comment on above: Performed By: #### C BC, CP, LIPR, TSH #### [facility] [employer] [address] [place] [address] Distribution Estimator: Shane Peña MD Calcium [Mass/Vol] 9.4 mg/dL Normal 8.6-10.4 [facility] Comment on above: Performed By: #### C BC, CP, LIPR, TSH #### [facility] [employer] [address] [place] [address] Distribution Estimator: Shane Peña MD Chloride [Moles/Vol] 102 mmol/L Normal 98-107 [facility] Comment on above: Performed By: #### C BC, CP, LIPR, TSH #### [facility] [employer] [address] [place] [address] Distribution Estimator: Shane Peña MD CO2 [Moles/Vol] 26 mmol/L Normal 20-31 [facility] Comment on above: Performed By: #### C BC, CP, LIPR, TSH #### [facility] [employer] [address] [place] [address] Distribution Estimator: Shane Peña MD Creatinine [Mass/Vol] 0.86 mg/dL Normal 0.70-1.20 [facility] Comment on above: Performed By: #### C BC, CP, LIPR, TSH #### [address] [address] Distribution Estimator: Shane Peña MD GFR, Amer >60 Normal >60 [facility] Comment on above: Performed By: #### C BC, CP, LIPR, TSH #### [facility] [employer] [address] [place] [address] Distribution Estimator: Shane Peña MD GFR,non Amer >60 Normal >60 [facility] Comment on above: Performed By: #### C BC, CP, LIPR, TSH #### [facility] [employer] [address] [place] [address] Distribution Estimator: Shane Peña MD Glucose [Mass/Vol] 95 mg/dL Normal 70-99 [facility] Comment on above: Performed By: #### C BC, CP, LIPR, TSH #### [facility] [place] [address] Distribution Estimator: Shane Peña MD Potassium [Moles/Vol] 4.3 mmol/L Normal 3.7-5.3 [facility] Comment on above: Performed By: #### C BC, CP, LIPR, TSH #### [facility] [address] [place] [address] Distribution Estimator: Shane Peña MD Protein [Mass/Vol] 6.4 g/dL Normal 6.4-8.3 [facility] Comment on above: Performed By: #### C BC, CP, LIPR, TSH #### [facility] [address] [place] [address] Distribution Estimator: Shane Peña MD Sodium [Moles/Vol] 137 mmol/L Normal 135-144 [facility] Comment on above: Performed By: #### C BC, CP, LIPR, TSH #### [facility] [address] [place] [address] Distribution Estimator: Shane Peña MD Urea nitrogen [Mass/Vol] 17 mg/dL Normal -20 [facility] Comment on above: Performed By: #### C BC, CP, LIPR, TSH #### [facility] [address] [place] [address] Distribution Estimator: Shane Peña MD BUN/CRE Ratio NOT REPORTED Normal -20 [facility] Comment on above: Performed By: #### C BC, CP, LIPR, TSH #### [facility] [address] [place] [address] Distribution Estimator: Shane Peña MD Staging: NOT REPORTED Normal [facility] Comment on above: Performed By: #### C BC, CP, LIPR, TSH #### [facility] [address] [place] [address] Distribution Estimator: Shane Peña MD Comprehensive Metabolic Pane carole 05-03-2020 Albumin [Mass/Vol] 4.1 g/dL 3.5 - 5.2 g/dL [facility] Phone: Albumin/Globulin [Mass ratio] 1.8 {ratio} [facility] Phone: ALP [Catalytic activity/Vol] 80 U/L 40 - 129 U/L [facility] Work Phone: ALT [Catalytic activity/Vol] 18 U/L 5 - 41 U/L [facility] Phone: Anion gap [Moles/Vol] 9 mmol/L 9 - 17 mmol/L [facility] Phone: AST [Catalytic activity/Vol] 15 U/L <40 [facility] Phone: Bilirubin Ql (U) 0.32 mg/dL 0.3 - 1.2 mg/dL [facility] Phone: Bun/Cre Ratio NOT REPORTED [facility] Work Phone: Calcium [Mass/Vol] 9.4 mg/dL 8.6 - 10. 4 mg/dL [facility] Phone: Chloride [Moles/Vol] 102 mmol/L 98 - 10 7 mmol/L [facility] Phone: CO2 [Moles/Vol] 26 mmol/L 20 - 31 mmol/L [facility] Work Phone: Creatinine [Mass/Vol] 0.86 mg/dL 0.7 - 1.2 mg/dL [facility] Phone: GFR >60 >60 mL/min [employer] Phone: GFR Non- >60 >60 mL/min [facility] Phone: GFR/1.73 sq M predicted among non-blacks MDRD (S/P/Bld) [Vol rate/Area] [facility] Phone: Comment on above: Average GFR for 50-5 9 years old: 93 mL/min/1.73sq m Chronic Kidney Disease: <60 mL/min/1.73sq m Kidney failure: <15 mL/min/1.73sq m eGFR calculated using average adult body mass. Additional eGFR calculator available at: http://www.Desi Hits/multiple_crcl_2012.htm GFR/1.73 sq M predicted among non-blacks MDRD (S/P/Bld) [Vol rate/Area] NOT REPORTED [facility] Phone: Glucose [Mass/Vol] 95 mg/dL 70 - 99 mg/dL [employer] Phone: Potassium [Moles/Vol] 4.3 mmol/L 3.7 - 5.3 mmol/L [facility] Phone: Protein [Mass/Vol] 6.4 g/dL 6.4 - 8.3 g/dL [facility] Phone: Sodium [Moles/Vol] 137 mmol/L 135 - 144 mmol/L [facility] Phone: Urea nitrogen [Mass/Vol] 17 mg/dL 6 - 20 mg/dL [facility] Phone: Lipid Panelon 05-03-2020 Cholesterol [Mass/Vol] 172 mg/dL <200 [facility] Phone: Comment on above: Cholesterol Guidelines: <200 Desirable 200-240 Borderline >240 Undesirable Cholesterol in HDL [Mass/Vol] 38 mg/dL Low >40 [facility] Phone: Comment on above: HDL Guidelines: <40 Undesirable 40-59 Borderline >59 Desirable Cholesterol in LDL [Mass/Vol] 106 mg/dL 0 - 130 mg/dL [facility] Phone: Comment on above: LDL Guidelines: <100 Desirable 100-129 Near to/above Desirable 130-159 Borderline >159 Undesirable Direct (measured) LDL and calculated LDL are not interchangeable tests. Cholesterol in VLDL [Mass/Vol] NOT REPORTED 1 - 30 mg/dL [facility] Phone: Cholesterol.total/Ch olesterol in HDL [Mass ratio] 4.5 {ratio} <5 [facility] Phone: Interpretation and review of laboratory results Abnormal [facility] Phone: Triglyceride [Mass/Vol] 138 mg/dL <150 [facility] Phone: Comment on above: Triglyceride Guidelines: <150 Desirable 150-199 Borderline 200-499 High >499 Very high Based on AHA Guidelines for fasting triglyceride, December 2011. Lipid Profileon 05-03-2020 Cholesterol [Mass/Vol] 172 mg/dL Normal <200 [facility] Comment on above: Result Comment: Cholesterol Guidelines: <200 Desirable 200-240 Borderline >240 Undesirable Performed By: #### C BC, CP, LIPR, TSH #### [facility] [address] [place] [address] [phone] Distribution Estimator: Shane Peña MD Cholesterol in HDL [Mass/Vol] 38 mg/dL Low >40 [facility] Comment on above: Result Comment: HDL Guidelines: <40 Undesirable 40-59 Borderline >59 Desirable Performed By: #### C BC, CP, LIPR, TSH #### [facility] [address] [place] [address] Distribution Estimator: Shane Peña MD Cholesterol in LDL [Mass/Vol] 106 mg/dL Normal 0-130 [facility] Comment on above: Result Comment: LDL Guidelines: <100 Desirable 100-129 Near to/above Desirable 130-159 Borderline >159 Undesirable Direct (measured) LDL and calculated LDL are not interchangeable tests. Performed By: #### C BC, CP, LIPR, TSH #### [facility] [employer] [address] [place] [address] Distribution Estimator: Shane Peña MD Cholesterol.total/Ch olesterol in HDL [Mass ratio] 4.5 {ratio} Normal <5 [facility] Comment on above: Performed By: #### C BC, CP, LIPR, TSH #### [facility] [employer] [address] [place] [address] [phone] Distribution Estimator: Shane Peña MD Triglyceride [Mass/Vol] 138 mg/dL Normal <150 [facility] Comment on above: Result Comment: Triglyceride Guidelines: <150 Desirable 150-199 Borderline 200-499 High >499 Very high Based on AHA Guidelines for fasting triglyceride, December 2011. Performed By: #### C BC, CP, LIPR, TSH #### [facility] [employer] [address] [place] [address] Distribution Estimator: Shane Peña MD Cholesterol in VLDL [Mass/Vol] NOT REPORTED Normal 04-02 [facility] Comment on above: Performed By: #### C BC, CP, LIPR, TSH #### [facility] [employer] [address] [place] [address] [phone] Distribution Estimator: Shane Peña MD TSH without Reflexon 021 TSH Qn 1.35 m[IU]/L [facility] [employer] Work Phone: Thyroid Stim. Horm.on 2020 TSH Qn 1.35 m[IU]/L Normal 0.30-5.00 [facility] Comment on above: Performed By: #### C BC, CP, LIPR, TSH #### [facility] [employer] [address] [place] [address] [phone] Distribution Estimator: Shane Peña MD XR CHEST (2 VW)on [...] Stephan Soto MD 05/03/20 Final result Normal [facility] No evidence for acut e cardiopulmonary pathology. [facility] Phone: EXAMINATION: TWO XRA Y VIEWS OF [...] structures and soft tissues are grossly intact. [facility] Phone: Robert, [facility] Incoming Radiant Results From [place] - 05/03/2020 11:24 AM EST EXAMINATION: TWO [...] IMPRESSION: No evidence for acute cardiopulmonary pathology. [facility] Phone: Covid-19 Ambulatoryon 2019 SARS-CoV-2, ALLIE Not Detected Not Detected [facility] [place] Comment on above: (NOTE) This nucleic acid amplification test was developed and its performance characteristics determined by [employer] Nucleic acid amplification tests include PCR and [...] detected) result in this assay. Performed At: [facility] [address] [facility], [place] [id number] Lilian Severino [facility] Ph:[phone] [id number] 11-09-2019 SARS-CoV-2 Not Detected Normal Not Detected [facility] Comment on above: Result Comment: (NOT E) This nucleic acid amplification test was developed and its performance characteristics determined by [employer] Nucleic acid amplification tests include PCR and [...] detected) result in this assay. Performed At: [facility] [address] [facility], [place] [id number] Lilian Severino [facility] Ph:[phone] Performed By: #### A COV #### [facility] [address] [place] [address] Distribution Estimator: Сергей Ramsey MD EKG 12 Leadon 11-04-2019 Atrial Rate 82 BPM [place] P [place] 52 degrees [place] P-R Interval 146 ms [place] Q-T Interval 388 ms [place] QRS Duration 102 ms [place] QTc Calculation (Bazett) 453 ms [place] R [place] -21 degrees [place] T [place] 58 degrees [place] Ventricular Rate 82 BPM [place] Robert, [facility] Incoming E kg Results From [place] - 11/04/2019 10:29 AM EDT Normal sinus rhythm Normal ECG No previous ECGs available [place] Normal sinus rhythm Normal ECG No previous ECGs available [place] Basic Metabolic Panelon 08- Anion gap [Moles/Vol] 10 mmol/L 9 - 17 mmol/L [place] Bun/Cre Ratio NOT REPORTED [place] Calcium [Mass/Vol] 9.2 mg/dL 8.6 - 10. 4 mg/dL [place] Chloride [Moles/Vol] 104 mmol/L 98 - 10 7 mmol/L [place] CO2 [Moles/Vol] 27 mmol/L 20 - 31 mmol/L [place] Creatinine [Mass/Vol] 0.83 mg/dL 0.7 - 1.2 mg/dL [place] GFR >60 >60 mL/min [place] GFR Non- >60 >60 mL/min [place] GFR/1.73 sq M predicted among non-blacks MDRD (S/P/Bld) [Vol rate/Area] [place] Comment on above: Average GFR for 50-5 9 years old: 93 mL/min/1.73sq m Chronic Kidney Disease: <60 mL/min/1.73sq m Kidney failure: <15 mL/min/1.73sq m eGFR calculated using average adult body mass. Additional eGFR calculator available at: http://www.Desi Hits/multiple_crcl_2012.htm GFR/1.73 sq M predicted among non-blacks MDRD (S/P/Bld) [Vol rate/Area] NOT REPORTED [place] Glucose [Mass/Vol] 103 mg/dL High 70 - 99 mg/dL [place] Interpretation and review of laboratory results Abnormal [place] Potassium [Moles/Vol] 4.5 mmol/L 3.7 - 5.3 mmol/L [place] Sodium [Moles/Vol] 141 mmol/L 135 - 144 mmol/L [place] Urea nitrogen [Mass/Vol] 18 mg/dL 6 - 20 mg/dL [place] Basic Metabolic Profon 11-01 (cont.) Normal [facility] Comment on above: Result Comment: Aver age GFR for 50-59 years old: 93 mL/min/1.73sq m Chronic Kidney Disease: <60 mL/min/1.73sq m Kidney failure: <15 mL/min/1.73sq m eGFR calculated using average adult body mass. Additional eGFR calculator available at: http://www.Desi Hits/multiple_crcl_2012.htm Performed By: #### C DP, BMP #### [facility] [address] [facility] [place] [address] Distribution Estimator: Cheko Boykin DO Anion gap [Moles/Vol] 10 mmol/L Normal 9-17 [facility] Comment on above: Performed By: #### C KLAUS, BMP #### [facility] [address] [facility] [place] [address] Distribution Estimator: Cheko Boykin DO Calcium [Mass/Vol] 9.2 mg/dL Normal 8.6-10.4 [facility] Comment on above: Performed By: #### C KLAUS, BMP #### [facility] [address] [facility] [place] [address] Distribution Estimator: Cheko Boykin DO Chloride [Moles/Vol] 104 mmol/L Normal 98-107 [facility] Comment on above: Performed By: #### C DP, BMP #### [facility] [address] [place] [address] Distribution Estimator: Cheko Boykin DO CO2 [Moles/Vol] 27 mmol/L Normal 20-31 [facility] Comment on above: Performed By: #### C DP, BMP #### [facility] [address] [place] [address] Distribution Estimator: Cheko Boykin DO Creatinine [Mass/Vol] 0.83 mg/dL Normal 0.70-1.20 [facility] Comment on above: Performed By: #### C DP, BMP #### [facility] [address] [place] [address] Distribution Estimator: Cheko Boykin DO GFR, Amer >60 Normal >60 [facility] Comment on above: Performed By: #### C DP, BMP #### [facility] [place] [place] [address] Distribution Estimator: Cheko Boykin DO GFR,non Amer >60 Normal >60 [facility] Comment on above: Performed By: #### C DP, BMP #### [facility] [place] [place] [address] Distribution Estimator: Cheko Boykin DO Glucose [Mass/Vol] 103 mg/dL High 70-99 [facility] Comment on above: Performed By: #### C DP, BMP #### [facility] [address] [place] [address] Distribution Estimator: Cheko Boykin DO Potassium [Moles/Vol] 4.5 mmol/L Normal 3.7-5.3 [facility] Comment on above: Performed By: #### C DP, BMP #### [facility] [place] [place] [address] Distribution Estimator: Cheko Boykin DO Sodium [Moles/Vol] 141 mmol/L Normal 135-144 [facility] Comment on above: Performed By: #### C DP, BMP #### [facility] [address] [facility] [place] [address] Distribution Estimator: Cheko Boykin DO Urea nitrogen [Mass/Vol] 18 mg/dL Normal 6-20 [facility] Comment on above: Performed By: #### C DP, BMP #### [facility] [address] [facility] [place] [address] Distribution Estimator: Cheko Boykin DO BUN/CRE Ratio NOT REPORTED Normal -20 [facility] Comment on above: Performed By: #### C DP, BMP #### [facility] [address] [facility] [place] [address] Distribution Estimator: Cheko Boykin DO Staging: NOT REPORTED Normal [facility] Comment on above: Performed By: #### C DP, BMP #### [facility] [address] [facility] [place] [address] Distribution Estimator: Cheko Boykin DO CBC Auto Differentialon 08-3 Basophils (Bld) [#/Vol] 0.10 10*3/uL [place] Basophils/100 WBC (Bld) 1 % 0 - 2 % [place] Differential Type NOT REPORTED [place] Eosinophils (Bld) [#/Vol] 0.60 10*3/uL [place] Eosinophils/100 WBC (Bld) 4 % 0 - 4 % [place] Erythrocyte distribution width (RBC) [Ratio] 13.9 % 11.5 - 14.9 % [place] Hematocrit (Bld) [Volume fraction] 42.4 % 41 - 53 % [place] Hemoglobin (Bld) [Mass/Vol] 14.5 g/dL 13.5 - 17.5 g/dL [place] Interpretation and review of laboratory results Abnormal [place] Lymphocytes (Bld) [#/Vol] 4.00 10*3/uL [place] Lymphocytes/100 WBC (Bld) 29 % 24 - 44 % [place] MCH (RBC) [Entitic mass] 30.5 pg 26 - 34 pg [place] MCHC (RBC) [Mass/Vol] 34.2 g/dL 31 - 37 g/dL [place] MCV (RBC) [Entitic vol] 89.1 fL 80 - 100 fL [place] Monocytes (Bld) [#/Vol] 1.00 10*3/uL [place] Monocytes/100 WBC (Bld) 7 % 1 - 7 % [place] Platelet mean volume (Bld) [Entitic vol] 7.1 fL 6 - 12 fL [place] Platelets (Bld) [#/Vol] 378 10*3/uL [place] Platelets (Bld) [#/Vol] NOT REPORTED [place] RBC (Bld) [#/Vol] 4.76 10*6/uL 4.5 - 5.9 m/uL [place] RBC morphology finding Nom (Bld) NOT REPORTED [place] Segmented neutrophils/100 WBC (Bld) 59 % 36 - 66 % [place] Segs Absolute 8.30 [place] WBC (Bld) [#/Vol] 13.9 10*3/uL [place] WBC (Bld) [#/Vol] NOT REPORTED per 100 WBC [place] WBC Morphology NOT REPORTED [place] CBC with Diffon 11-02-2019 Abs. Basophil 0.10 k/uL Normal 0.0-0.2 [facility] Comment on above: Performed By: #### C DP, BMP #### [facility] [address] [place] [address] Distribution Estimator: Cheko Boykin DO Abs.Neutrophil (Seg) 8.30 k/uL Normal 1.3-9.1 [facility] Comment on above: Performed By: #### C DP, BMP #### [facility] [place] [place] [address] Distribution Estimator: Cheko Boykin DO Basophils/100 WBC (Bld) 1 % Normal 0-2 [facility] Comment on above: Performed By: #### C DP, BMP #### [facility] [place] [place] [address] Distribution Estimator: Cheko Boykin DO Eosinophils (Bld) [#/Vol] 0.60 10*3/uL High 0.0-0.4 [facility] Comment on above: Performed By: #### C DP, BMP #### [facility] [address] [place] [address] Distribution Estimator: Cheko Boykin DO Eosinophils/100 WBC (Bld) 4 % Normal 0-4 [facility] Comment on above: Performed By: #### C DP, BMP #### [facility] [address] [place] [address] Distribution Estimator: Cheko Boykin DO Erythrocyte distribution width (RBC) [Ratio] 13.9 % Normal 11.5-14.9 [facility] Comment on above: Performed By: #### C DP, BMP #### [facility] [address] [place] [address] Distribution Estimator: Cheko Boykin DO Hematocrit (Bld) [Volume fraction] 42.4 % Normal 41-53 [facility] Comment on above: Performed By: #### C DP, BMP #### [facility] [address] [place] [address] Distribution Estimator: Cheko Boykin DO Hemoglobin (Bld) [Mass/Vol] 14.5 g/dL Normal 13.5-17.5 [facility] Comment on above: Performed By: #### C DP, BMP #### [facility] [place] [place] [address] Distribution Estimator: Cheko Boykin DO Lymphocytes (Bld) [#/Vol] 4.00 10*3/uL Normal 1.0-4.8 [facility] Comment on above: Performed By: #### C DP, BMP #### [facility] [place] [place] [address] Distribution Estimator: Cheko Boykin DO Lymphocytes/100 WBC (Bld) 29 % Normal 24-44 [facility] Comment on above: Performed By: #### C DP, BMP #### [facility] [address] [place] [address] Distribution Estimator: Cheko Boykin DO MCH (RBC) [Entitic mass] 30.5 pg Normal 26-34 [facility] Comment on above: Performed By: #### C KLAUS, BMP #### [facility] [address] [place] [address] Distribution Estimator: Cheko Boykin DO MCHC (RBC) [Mass/Vol] 34.2 g/dL Normal 31-37 [facility] Comment on above: Performed By: #### C KLAUS, BMP #### [facility] [address] [place] [address] Distribution Estimator: Cheko Boykin DO MCV (RBC) [Entitic vol] 89.1 fL Normal 80-100 [facility] Comment on above: Performed By: #### C DP, BMP #### [facility] [address] [place] [address] Distribution Estimator: Cheko Boykin DO Monocytes (Bld) [#/Vol] 1.00 10*3/uL Normal 0.1-1.3 [facility] Comment on above: Performed By: #### C DP, BMP #### [facility] [place] [place] [address] Distribution Estimator: Cheko Boykin DO Monocytes/100 WBC (Bld) 7 % Normal 1-7 [facility] Comment on above: Performed By: #### C DP, BMP #### [facility] [address] [place] [address] Distribution Estimator: Cheko Boykin DO Neutrophil (Seg) 59 % Normal 36-66 [facility] Comment on above: Performed By: #### C DP, BMP #### [facility] [address] [place] [address] Distribution Estimator: Cheko Boykin DO Platelet mean volume (Bld) [Entitic vol] 7.1 fL Normal 6.0-12.0 [facility] Comment on above: Performed By: #### C DP, BMP #### [facility] [address] [place] [address] Distribution Estimator: Cheko Boykin DO Platelets (Bld) [#/Vol] 378 10*3/uL Normal 150-450 [facility] Comment on above: Performed By: #### C DP, BMP #### [facility] [address] [place] [address] Distribution Estimator: Cheko Boykin DO RBC (Bld) [#/Vol] 4.76 10*6/uL Normal 4.5-5.9 [facility] Comment on above: Performed By: #### C DP, BMP #### [facility] [address] [place] [address] Distribution Estimator: Cheko Boykin DO WBC (Bld) [#/Vol] 13.9 10*3/uL High 3.5-11.0 [facility] Comment on above: Performed By: #### C DP, BMP #### [facility] [address] [place] [address] Distribution Estimator: Cheko Boykin DO Abs.Imm.Granulocyte NOT REPORTED Normal 0.00-0.30 [facility] Comment on above: Performed By: #### C DP, BMP #### [facility] [place] [place] [address] Distribution Estimator: Cheko Boykin DO Auto Diff Performed NOT REPORTED Normal [facility] Comment on above: Performed By: #### C DP, BMP #### [facility] [address] [place] [address] Distribution Estimator: Cheko Boykin DO Immature granulocytes (Bld) [#/Vol] NOT REPORTED Normal 0 [facility] Comment on above: Performed By: #### C DP, BMP #### [facility] [address] [place] [address] Distribution Estimator: Cheko Boykin DO NRBC Automated NOT REPORTED Normal [facility] Comment on above: Performed By: #### C DP, BMP #### [facility] [place] [place] [address] Distribution Estimator: Cheko Boykin DO Platelets (Bld) [#/Vol] NOT REPORTED Normal [facility] Comment on above: Performed By: #### C DP, BMP #### [facility] [place] [address] Distribution Estimator: Cheko Boykin DO RBC morphology finding Nom (Bld) NOT REPORTED Normal [facility] Comment on above: Performed By: #### C DP, BMP #### [facility] [place] [facility] [place] [address] Distribution Estimator: Cheko Boykin DO WBC Morphology NOT REPORTED Normal [facility] Comment on above: Performed By: #### C LORE ENRIQUE #### [facility] [address] [place] [address] Distribution Estimator: Cheko Boykin DO Otheron 11-02-2019 Immature granulocytes (Bld) [#/Vol] NOT REPORTED 0 % [facility], [place] MRI KNEE LEFT WO CONTRASTon 10-28-2019 MRI [...] quadriceps tendinosis. 3. Moderate joint effusion. 4. Izsl-at-dfvwohfw patellofemoral chondromalacia. Mild medial compartment chondromalacia. Superimposed partial and full-thickness fissuring of the weight-bearing medial femoral condyle. 5. Mild edema in the soft tissues about the knee. Interpreted by: Simeon Long MD Signed by: Simeon Long MD 10/28/19 Final result Normal [facility] 1. Complex multidirectional tearing and volume loss in the posterior horn of the medial meniscus. Degeneration and outward extrusion of the medial meniscus body. 2. Mild multifocal patellar tendinosis. Mild distal quadriceps tendinosis. 3. Moderate joint effusion. 4. Xvsk-gy-jkxmsjzh patellofemoral chondromalacia. Mild medial compartment chondromalacia. Superimposed partial and full-thickness fissuring of the weight-bearing medial femoral condyle. 5. Mild edema in the soft tissues about the knee. [place] EXAMINATION: MRI OF THE LEFT KNEE WITHOUT [...] in the soft tissues about the knee. [facility] [place], [place] Robert, Mhpn Incoming Radiant Results From [employer] - 10/28/2019 3:10 PM EDT EXAMINATION: MRI [...] quadriceps tendinosis. 3. Moderate joint effusion. 4. Uolq-pi-svizoxih patellofemoral chondromalacia. Mild medial compartment chondromalacia. Superimposed partial and full-thickness fissuring of the weight-bearing medial femoral condyle. 5. Mild edema in the soft tissues about the knee. [place] XR KNEE LEFT (3 VIEWS)on XR [...] Roz Mora MD 09/29/19 Final result Normal [facility] Small joint effusion. [place], [place] EXAMINATION: THREE X RAY VIEWS OF [...] within the medial compartment. Small joint effusion. [place], [place] Robert, pn Incoming Radiant Results From [facility] - 09/29/2019 2:11 PM EDT EXAMINATION: THREE [...] Small joint effusion. IMPRESSION: Small joint effusion. [place] Uric Acidon 09-28-2019 Urate [Mass/Vol] 6.0 mg/dL 3.4 - 7 mg/dL [place] Uric Acidon 12-09-2018 Urate [Mass/Vol] 5.8 mg/dL 3.4 - 7 mg/dL [place] CBCon 11-05-2018 Erythrocyte distribution width (RBC) [Ratio] 13.1 % 11.8 - 14.4 % [place] Hematocrit (Bld) [Volume fraction] 46.1 % 40.7 - 50.3 % [place] Hemoglobin (Bld) [Mass/Vol] 14.9 g/dL 13 - 17 g/dL [place] Interpretation and review of laboratory results Abnormal [place] MCH (RBC) [Entitic mass] 31.0 pg 25.2 - 33.5 pg [place] MCHC (RBC) [Mass/Vol] 32.3 g/dL 28.4 - 34.8 g/dL [place] MCV (RBC) [Entitic vol] 95.8 fL 82.6 - 102.9 fL [place] Platelet mean volume (Bld) [Entitic vol] 9.2 fL 8.1 - 13.5 fL [place] Platelets (Bld) [#/Vol] 374 10*3/uL [place] RBC (Bld) [#/Vol] 4.81 10*6/uL 4.21 - 5.7 7 m/uL [place] WBC (Bld) [#/Vol] 11.8 10*3/uL [place] WBC (Bld) [#/Vol] 0.0 10*3/uL 0.0 per 10 0 WBC [place] Comprehensive Metabolic Pane carole 11-05-2018 Albumin [Mass/Vol] 4.2 g/dL 3.5 - 5.2 g/dL [place] Albumin/Globulin [Mass ratio] 1.7 {ratio} [place] ALP [Catalytic activity/Vol] 83 U/L 40 - 129 U/L [place] ALT [Catalytic activity/Vol] 19 U/L 5 - 41 U/L [place] Anion gap [Moles/Vol] 16 mmol/L 9 - 17 mmol/L [place] AST [Catalytic activity/Vol] 15 U/L <40 [place] Bilirubin Ql (U) 0.29 mg/dL Low 0.3 - 1.2 mg/dL [place] Bun/Cre Ratio NOT REPORTED [place] Calcium [Mass/Vol] 9.5 mg/dL 8.6 - 10. 4 mg/dL [place] Chloride [Moles/Vol] 104 mmol/L 98 - 10 7 mmol/L [place] CO2 [Moles/Vol] 26 mmol/L 20 - 31 mmol/L [place] Creatinine [Mass/Vol] 0.81 mg/dL 0.7 - 1.2 mg/dL [place] GFR >60 >60 mL/min [place] GFR Non- >60 >60 mL/min [place] GFR/1.73 sq M predicted among non-blacks MDRD (S/P/Bld) [Vol rate/Area] NOT REPORTED [place] GFR/1.73 sq M predicted among non-blacks MDRD (S/P/Bld) [Vol rate/Area] [place] Comment on above: Average GFR for 50-5 9 years old: 93 mL/min/1.73sq m Chronic Kidney Disease: <60 mL/min/1.73sq m Kidney failure: <15 mL/min/1.73sq m eGFR calculated using average adult body mass. Additional eGFR calculator available at: http://www.TalkPlus.ScribeStorm/multiple_crcl_2012.htm Glucose [Mass/Vol] 99 mg/dL 70 - 99 mg/dL [place] Potassium [Moles/Vol] 4.4 mmol/L 3.7 - 5.3 mmol/L [place] Protein [Mass/Vol] 6.7 g/dL 6.4 - 8.3 g/dL [place] Sodium [Moles/Vol] 146 mmol/L High 135 - 144 mmol/L [place] Urea nitrogen [Mass/Vol] 17 mg/dL 6 - 20 mg/dL [place] Lipid Panelon 11-05-2018 Cholesterol [Mass/Vol] 199 mg/dL <200 [place] Comment on above: Cholesterol Guidelines: <200 Desirable 200-240 Borderline >240 Undesirable Cholesterol in HDL [Mass/Vol] 42 mg/dL >40 [place] Comment on above: HDL Guidelines: <40 Undesirable 40-59 Borderline >59 Desirable Cholesterol in LDL [Mass/Vol] 126 mg/dL 0 - 130 mg/dL [place] Comment on above: LDL Guidelines: <100 Desirable 100-129 Near to/above Desirable 130-159 Borderline >159 Undesirable Direct (measured) LDL and calculated LDL are not interchangeable tests. Cholesterol in VLDL [Mass/Vol] NOT REPORTED High 1 - 30 mg/dL [place] Cholesterol.total/Ch olesterol in HDL [Mass ratio] 4.7 {ratio} <5 [place] Triglyceride [Mass/Vol] 157 mg/dL High <150 [place] Comment on above: Triglyceride Guidelines: <150 Desirable 150-199 Borderline 200-499 High >499 Very high Based on AHA Guidelines for fasting triglyceride, December 2011. Otheron 11-05-2018 Interpretation and review of laboratory results Abnormal [place] Vital Signs Date Time Vital Sign Value Performing Clinician Facility 11-26-2022 15:24-0400 Body height 187.96 cm Colten Barnard naaptol Work Phone: [facility] [employer] 250 DO Work Phone: 11-26-2022 15:24-0400 Body mass index (BMI) [Ratio] 35.31 kg/m2 Colten Barnard naaptol Work Phone: [facility] [employer] 250 DO Work Phone: 11-26-2022 15:24-0400 Body surface area Derived from formula 2.49 m2 Colten Barnard Furlong Work Phone: [facility] [employer] 250 DO Work Phone: 11-26-2022 15:24-0400 Body weight 124.74 kg Colten Barnard Furlong Work Phone: [facility] [employer] [address] 250 DO Work Phone: 11-26-2022 15:24-0400 Diastolic blood pressure 72 mm[Hg] Colten Amoslong Work Phone: [facility] 250 DO Work Phone: 11-26-2022 15:24-0400 Heart rate 70 /min Colten Amoslong Work Phone: [facility] [address] 250 DO Work Phone: 11-26-2022 15:24-0400 Systolic blood pressure 138 mm[Hg] Colten Amoslong Work Phone: [facility] [address] 250 DO Work Phone: 10-19-2021 14:25-0400 Body height 187.96 cm Colten Amoslong Work Phone: [facility] [address] 250 DO Work Phone: 10-19-2021 14:25-0400 Body mass index (BMI) [Ratio] 33.64 kg/m2 Colten Amoslong Work Phone: [facility] [address] 250 DO Work Phone: 10-19-2021 14:25-0400 Body surface area Derived from formula 2.44 m2 Colten G Furlong Work Phone: [facility] [address] 250 DO Work Phone: 10-19-2021 14:25-0400 Body weight 118.84 kg Colten Barnard Furlong Work Phone: [facility] 250 DO Work Phone: 10-19-2021 14:25-0400 Diastolic blood pressure 68 mm[Hg] Colten G Furlong Work Phone: [facility] 250 DO Work Phone: 10-19-2021 14:25-0400 Heart rate 74 /min Colten G Furlong Work Phone: [facility] 250 DO Work Phone: 10-19-2021 14:25-0400 Systolic blood pressure 130 mm[Hg] Colten G Furlong Work Phone: [facility] 250 DO Work Phone: 06-06-2021 10:10-0400 Body height 188 cm Megan Interiano MD Work Phone: [facility] 06-06-2021 10:10-0400 Body weight 116.8 kg Megan Interiano MD Work Phone: [facility] 06-06-2021 10:10-0400 Diastolic blood pressure 71 mm[Hg] Megan Interiano MD Work Phone: [facility] 06-06-2021 10:10-0400 Heart rate 62 /min Megan Interiano MD Work Phone: [facility] 06-06-2021 10:10-0400 Respiratory rate 16 /min Megan Interiano MD Work Phone: [facility] 06-06-2021 10:10-0400 SaO2% (BldA) [Mass fraction] 98 % Megan Interiano MD Work Phone: [facility] 06-06-2021 10:10-0400 Systolic blood pressure 148 mm[Hg] Megan Interiano MD Work Phone: [facility] 05-26-2021 09:27-0400 Body height 187.96 cm Colten G Furlong Work Phone: [facility] 600 DO Work Phone: 05-26-2021 09:27-0400 Body mass index (BMI) [Ratio] 33.41 kg/m2 Colten G Furlong [facility] DO Work Phone: 05-26-2021 09:27-0400 Body surface area Derived from formula 2.43 m2 Colten G Furlong Work Phone: [facility] DO Work Phone: 05-26-2021 09:27-0400 Body weight 118.03 kg Colten G Furlong [facility]: [facility] Work Phone: 05-26-2021 09:27-0400 Diastolic blood pressure 66 mm[Hg] Colten G Furlong Work [facility]: [facility] DO Work Phone: 05-26-2021 09:27-0400 Heart rate 62 /min Colten G Furlong Work Phone: [facility] DO Work Phone: 05-26-2021 09:27-0400 Systolic blood pressure 122 mm[Hg] Colten G Furlong Work [facility]: [facility] DO Work Phone: 12-27-2020 13:15-0400 Body height 187.96 cm Colten G Furlong Work Phone: [facility] [place] 127 DO Work Phone: 12-27-2020 13:15-0400 Body mass index (BMI) [Ratio] 33.64 kg/m2 Colten G Furlong Work Phone: [facility] 127 DO Work Phone: 12-27-2020 13:15-0400 Body surface area Derived from formula 2.44 m2 Colten G Furlong Work Phone: [facility] 127 DO Work Phone: 12-27-2020 13:15-0400 Body weight 118.84 kg Colten G Furlong Work Phone: [facility] 127 DO Work Phone: 12-27-2020 13:15-0400 Diastolic blood pressure 74 mm[Hg] Colten G Furlong Work Phone: [facility] 127 DO Work Phone: 12-27-2020 13:15-0400 Heart rate 74 /min Colten G Furlong Work Phone: [facility] 127 DO Work Phone: 12-27-2020 13:15-0400 Systolic blood pressure 131 mm[Hg] Colten G Furlong Work Phone: [facility] [place] 127 DO Work Phone: 12-23-2020 09:15-0400 0 1 Colten G Furlong Work Phone: [facility] [employer] [address] [place] Work Phone: Comment on above: [id number] 11-10-2019 13:25-0400 BP Diastolic 78 mm[Hg] Liu [facility] [facility] [place] 11-10-2019 13:25-0400 BP Systolic 140 mm[Hg] Liu [employer] [facility] , [place] 11-10-2019 13:25-0400 Pulse (Heart Rate) 78 /min Liu [employer] [facility], [place] 11-10-2019 13:25-0400 Pulse Oximetry 97 % Liu [employer] [facility] , [place] 11-10-2019 13:25-0400 Respiratory Rate 16 /min Liu Granadosse [facility], [place] 11-10-2019 12:43-0400 Body Temperature 97.2 [degF] Liu Jackson [facility], [place] 11-10-2019 10:06-0400 BMI (Body Mass Index) 35.31 kg/m2 Liu Jackson [facility], [place] 11-10-2019 10:06-0400 Body weight 124.74 kg Liu Jackson [facility] , [place] 11-10-2019 10:06-0400 Height 188 cm Liu Jackson [facility] , [place] 11-02-2019 11:08-0400 BMI (Body Mass Index) 35.31 kg/m2 [address], [place] 11-02-2019 11:08-0400 Body Temperature 98.01 [degF] [address] 11-02-2019 11:08-0400 Body weight 124.[address] 11-02-2019 11:08-0400 BP Diastolic 94 mm[Hg] [address] 11-02-2019 11:08-0400 BP Systolic 147 mm[Hg] [address] , [place] 11-02-2019 11:08-0400 Height [address] 11-02-2019 11:08-0400 Pulse (Heart Rate) 83 /min [address] 11-02-2019 11:08-0400 Pulse Oximetry 99 % [address] 11-02-2019 11:08-0400 Respiratory Rate 18 /min [address] Encounters Encounter Date Encounter Type Care Provider Facility Start: 04-01-2023 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 Facility:[facility] Start: 07-31-2022 End: 08-01-2022 ambulatory AD GOTTLIEB . Facility:[facility] Start: 07-20-2022 End: 07-21-2022 ambulatory Antonio Bird MD Facility:[facility] Start: 06-14-2022 End: 06-15-2022 ambulatory NARAMANDA NUNEZPATHY . Facility:[facility] Start: 05-08-2022 ambulatory [facility] Start: 05-03-2022 End: 05-03-2022 ambulatory HUNTER ROBINS Facility:[facility] Start: 03-15-2022 End: 03-16-[address] COMPA AWAD . Facility:[facility] Start: 02-15-2022 Encounter for preprocedural laboratory examination DR COMPA AWAD . [facility] Start: 02-13-2022 End: 02-13-[address] COMPA AWAD . Facility:[facility] Start: 02-09-2022 End: 02-10-[address] COMPA AWAD . Facility:[facility] Start: 02-09-2022 End: 02-10-2022 Encounter for preprocedural laboratory examination DR COMPA AWAD . Facility:[facility] Start: 01-16-2022 End: 01-17-[address] COMPA AWAD . Facility:[facility] Start: 01-09-2022 End: 01-09-[address] COMPA AWAD . Facility:[facility] Start: 01-08-2022 Rx Renewal Colten Pérez ng Work Phone: [facility] 250 DO Work Phone: Start: 01-08-2022 Rx Renewal Colten Pérez ng Work Phone: [facility] 250 DO Work Phone: Start: 12-28-2021 End: 12-29-2021 ambulatory HUNTER ROBINS Facility:[facility] Start: 12-28-2021 End: 12-29-[address] COMPA AWAD . Facility:[facility] Start: 12-12-2021 End: 12-12-[address] COMPA AWAD . Facility: Start: 11-29-2021 Rx Renewal Colten figueroa Work Phone: [facility] 250 DO Work Phone: Start: 10-26-2021 End: 10-27-[address] COMPA AWAD . Facility: Start: 10-19-2021 Office outpatient vi sit 25 minutes [facility] Parra [facility] Work Phone: Start: 08-23-2021 Message Colten figueroa [facility]: [facility] Work Phone: Start: 07-04-2021 Telephone encounter Megan garcia MD Work Phone: [facility] Comment on above: Schedule Surgery Start: 06-06-2021 End: 06-06-2021 Patient encounter procedure Megan Interiano MD Work Phone: [facility] Comment on above: Cervical spondylosis with myelopathy (Primary Dx); Loss of balance; Spinal stenosis of cervical region Start: 05-26-2021 Office outpatient vi sit 25 minutes Colten Parra Work Phone: [facility] 600 DO Work Phone: Start: 01-03-2021 Chart Update [facility]eroa [facility] Work Phone: Start: 12-27-2020 FUV, Provider: Kalie Lebron, Status: Pen, Time: 1:00 PM Colten Parra Work Phone: [facility] [address] [place] Work Phone: Start: 12-27-2020 Office outpatient vi sit 25 minutes Colten Pérezng [facility] DO Work Phone: Start: 12-23-2020 Patient encounter procedure Cotlen Parra Work Phone: [facility] [address] [place] Work Phone: Start: 05-04-2020 End: 05-05-2020 Patient encounter procedure MISSYD Paulina [facility] Start: 05-04-2020 End: 05-04-2020 Subsequent hospital visit by physician Kash GARCÍA [place] [facility] Start: 05-03-2020 End: 05-04-2020 Patient encounter procedure MISSYD Paulina [facility] Start: 05-03-2020 End: 05-03-2020 Subsequent hospital visit by physician Kash GARCÍA [facility] Comment on above: Chest discomfort; Essential hypertension Start: 05-03-2020 End: 05-06-2020 Patient encounter procedure FLACO CARTER [facility] Start: 05-03-2020 End: 05-05-2020 Subsequent hospital visit by physician Alexa Shukla Xr Rm 1 [facility] Comment on above: Chest discomfort Start: 11-10-2019 End: 11-10-2019 Patient encounter procedure LIU J [facility] Start: 11-10-2019 End: 11-10-2019 Subsequent hospital visit by physician Liu Jackson Work Phone: [facility] Comment on above: Acute medial meniscu s tear of left knee, initial encounter (Primary Dx) Start: 11-06-2019 End: 11-11-2019 Patient encounter procedure ANAYA HORTON [facility] Start: 11-06-2019 End: 11-10-2019 Subsequent hospital visit by physician Alexa Amaya19 Pat Screening Schedule [facility] Pre-Admit Testing Start: 11-02-2019 End: 11-06-2019 Patient encounter procedure MARGARITA [facility] Start: 11-02-2019 End: 11-06-2019 Subsequent hospital visit by physician [facility] Pat Rm 2 [facility] Pre-Admit [facility] Start: 10-27-2019 End: 10-30-2019 Patient encounter procedure BRENDAVARAMÓNSAD Paulina [facility] Start: 10-27-2019 End: 10-29-2019 Subsequent hospital visit by physician Alexa Mri Rm 119 [facility] MRI Comment on above: Effusion of left kne e; Injury of left knee, subsequent encounter Start: 09-29-2019 End: 10-02-2019 Patient encounter procedure BRENDAVAPRASAD Paulina [facility] Start: 09-29-2019 End: 10-01-2019 Subsequent hospital visit by physician Alexa Xr Room 4 [facility] Radiology Comment on above: Acute pain of left k nee Start: 09-29-2019 End: 09-29-2019 Patient encounter procedure KASH GRIER [facility] Start: 09-28-2019 End: 09-28-2019 Subsequent hospital visit by physician aMrgarita GARCÍA [place] [facility] Comment on above: Gout of foot, unspec ified cause, unspecified chronicity, unspecified laterality Start: 12-09-2018 End: 12-09-2018 Subsequent hospital visit by physician Margarita GARCÍA [facility] Comment on above: Gouty arthritis of r ight foot Start: 11-05-2018 End: 11-05-2018 Subsequent hospital visit by physician Margarita GARCÍA [facility] Comment on above: Essential hypertensi on; Prostate cancer screening Procedures Date Procedure Procedure Detail Performing Clinician Start: 12-14-2022 Adult depression scr eening assessment Hunter Robins SWEATBAND CUTTING MACHINE OPERATOR-CASTING INSPECTOR Work Phone: Start: 06-04-2021 Adult depression scr eening assessment Megan Interiano MD Work Phone: Start: 12-23-2020 Echocardiography Colten Parra Work Phone: Start: 05-04-2020 Assay of troponin quantitative Margarita Maxwell Work Phone: Start: 05-03-2020 Radiologic exam ches t 2 views Margarita Maxwell Work Phone: Start: 05-03-2020 Assay of thyroid sti mulating hormone tsh Shivaprasad Paulina AbramsGurjit Work Phone: Start: 05-03-2020 Blood count complete automated Brendavaprasad K Gurjit Work Phone: Start: 05-03-2020 Comprehensive metabo lic panel Shivaprasad K Gurjit Work Phone: Start: 05-03-2020 Lipid panel Shivaprasa d K Gurjit Work Phone: Start: 11-10-2019 DISCHARGE PATIENT SHIVA HERNÁNDEZ Start: 11-10-2019 BEDREST SHIVAPRASA D GURJIT Start: [...] GURJIT Start: 11-06-2019 COVID-19 AMBULATORY Tramaine s Valdez Santanai Work Phone: Start: 11-06-2019 COVID-19 SHIVAPRASA D GURJIT Start: 11-02-2019 Ecg routine ecg w/le ast 12 lds w/i&r SHIVAPRASAD GURJIT Start: 11-02-2019 EKG REPORT SHIVAPRASA D GURJIT Start: 11-02-2019 Basic metabolic pane l calcium total SHIVAPRASAD GURJIT Start: 11-02-2019 Blood count complete auto&auto difrntl wbc SHIVAPRASAD GURJIT Start: 11-02-2019 Ecg routine ecg w/le ast 12 lds i&r only Anil Glenroy Alvarez Work Phone: Start: 11-02-2019 EKG REPORT Hpf Scanni ng Start: 11-02-2019 Basic metabolic pane l calcium total Anil Alvarez Work Phone: Start: 11-02-2019 Blood count complete auto&auto difrntl wbc Anil Alvarez Work Phone: Start: 10-27-2019 Mri any jt lower ext rem w/o contrast matrl MISSYBrendon GURJIT Start: 10-27-2019 Mri any jt lower ext rem w/o contrast matrl Patria Quiñones Work Phone: Start: 09-29-2019 Radiologic examinati on knee 3 views MADELEINERAMÓNBrendon GURJIT Start: 09-29-2019 Radiologic examinati on knee 3 views Kash Grier Work Phone: Start: 09-28-2019 Assay of blood/uric acid KASH GRIER Start: 09-28-2019 Assay of blood/uric acid Kash Grier Work Phone: Start: 12-09-2018 Assay of blood/uric acid Kash Grier Work Phone: Start: 11-05-2018 [object Object] Yasmin villanueva Gurjit Comment on above: The Cole ECLIA as say is used. Results obtained with different assay methods cannot be used interchangeably. Start: 11-05-2018 Blood count complete automated Shivaprasad Paulina Maxwell Work Phone: Start: 11-05-2018 Comprehensive metabo lic panel Shivaprasad Paulina Maxwell Work Phone: Start: 11-05-2018 Lipid panel Brendavaprasa d Paulina Gurjit Work Phone: Start: 11-05-2018 PSA screening Shivapras ad Paulina Gurjit Work Phone: Decompression of med trudy nerve Colten G Furlong Work Phone: History of percutane ous transluminal [...] Treatment Date Care Activity Detail Author Start: 06-21-2025 Screening for malign ant neoplasm of colon Colon Cancer Screening 3 Year Cologuard [facility] Start: 05-03-2025 Lipid panel Lipid screen [facility] Work Phone: Start: 04-28-2025 Hepatitis C screening Hepatitis C sc [facility] Work Phone: Comment on above: Postponed from 07/08 (Patient Refused) Start: 04-28-2025 HIV screening HIV screen [facility] Work Phone: Comment on above: Postponed from 07/08 (Patient Refused) Start: 12-23-2023 Tobacco Counseling Tobacco Counselin [facility] Comment on above: Postponed from 07/08 (Not Indicated) Start: 12-18-2023 Adult BMI Screening Adult BMI Screen ing [facility] Start: 12-18-2023 Tobacco Screening Tobacco Screening [facility] Start: 12-15-2023 Depression Screening Depression Scre [facility] Start: 11-06-2023 Lipid panel Lipid screen [facility] [place] Start: 11-06-2023 Lipid screen Lipid screen [place], [place] Start: 06-09-2023 Administration of varicella zoster vaccine Zoster (Shingles) Vaccine (1 of 2) [facility] Comment on above: Postponed from 07/08 (Patient Refused) Start: 06-09-2023 DTaP,Tdap and Td Vaccines (1 - Tdap) DTaP,Tdap and Td Vaccines (1 - Tdap) [facility] Comment on above: Postponed from 07/08 (Patient Refused) Start: 06-02-2023 Influenza vaccination Influenza Vacc ine [facility] Comment on above: Postponed from 11/02 (Patient Refused) Start: 05-01-2023 End: 05-01-2023 Patient encounter procedure 05/01/2023 10:30 AM EST [facility] [address] [place] [address] Hunter Robins, SWEATBAND CUTTING MACHINE OPERATOR-CASTING INSPECTOR [address] [place] [address] [facility] Start: 07-13-2022 FUV, Provider: Leonid Figueredo, Status: Pen, Time: 9:00 AM FUV, Provider: Leonid Figueredo, Status: Pen, Time: 9:00 AM [facility] 250 DO Work Phone: Start: 06-04-2022 Adult depression screening assessment DEPRESSION SCREENING [facility] Start: 11-02-2021 Influenza vaccination INFLUENZ A (Season Ended) [facility] Start: 10-27-2021 FUV, Provider: Leonid Figueredo, Status: Pen, Time: 2:50 PM FUV, Provider: Leonid Figueredo, Status: Pen, Time: 2:50 PM [facility] 600 DO Work Phone: Start: 05-03-2021 Creatinine measurement Creatinine mo nitoring [facility] Phone: Start: 05-03-2021 Potassium monitoring Potassium monit oring [facility] Phone: Start: 04-28-2021 Influenza vaccination Flu vaccine (# 1) [facility] Phone: Comment on above: Postponed from 11/02 (Patient Refused) Start: 04-28-2021 Pneumococcal 0-64 ye ars Vaccine (1 of 1 - PPSV23) Pneumococcal 0-64 years Vaccine (1 of 1 - PPSV23) [facility] Work Phone: Comment on above: Postponed from 07/08 (Patient Refused) Start: 03-30-2021 FUV, Provider: Rachel Stacy, Status: Pen, Time: 4:30 PM FUV, Provider: Rachel Stacy, Status: Pen, Time: 4:30 PM [facility] 127 DO Work Phone: Start: 12-27-2020 FUV, Provider: Kalie Lebron, Status: Pen, Time: 1:00 PM FUV, Provider: Kalie Lebron, Status: Pen, Time: 1:00 PM [facility] [address] [place] Work Phone: Start: 11-01-2020 Creatinine measurement Creatinine mo nitoring [place], [place] Start: 11-01-2020 Potassium monitoring Potassium monit [place]ing [place] Start: 10-05-2020 Shingles Vaccine (1 of 2) Shingles Vaccine (1 of 2) [place] Comment on above: Postponed from 07/08 (Patient Refused) Start: 2020 PROSTATE CANCER SCREENING DISCUSSION PROSTATE CANCER SCREENING DISCUSSION [facility] Start: 05-26-2020 End: 05-26-2020 Office Visit 05/26/2020 Office Visit Primary Care Margarita Maxwell MD [address] [place] [address] [id number] [facility] Start: 12-16-2019 End: 12-16-2019 Office Visit 12/16/2019 Office Visit Family Medicine Kash Grier MD [address] [place] [address] [id number] Kash Grier MD [facility] Start: 12-08-2019 End: 12-08-2019 Office Visit 12/08/2019 Office Visit Primary Care Patria Quiñones CPNP [address] [place] [address] [phone] [facility] Start: 11-23-2019 End: 11-23-2019 Office Visit 11/23/2019 Office Visit Orthopedic Surgery Liu Jackson MD [address] [facility] [address] [place] [address] [phone] [facility] Start: 11-10-2019 End: 11-10-2019 Hospital Encounter [facility] [place] Comment on above: KNEE ARTHROSCOPY WIT H PARTIAL MEDICAL MENISECTOMY Start: 11-06-2019 End: 11-06-2019 Appointment 11/06/2019 Appointment Pre-Admission Testing [facility] Pre-Admit Testing Start: 11-06-2019 Creatinine measurement Creatinine mo [place]itoring [place], [place] Start: 11-06-2019 Creatinine monitoring Creatinine mon [place]oring [place] Start: 11-06-2019 Potassium monitoring Potassium monit [place]ing [place] Start: 11-03-2019 Influenza vaccination Flu vaccine (# 1) [place] Start: 11-02-2019 End: 11-02-2019 Appointment 11/02/2019 Appointment Pre-Admission Testing [facility] Pre-Admit Testing Start: 10-31-2019 DTaP/Tdap/Td vaccine (1 - Tdap) DTaP/Tdap/Td vaccine (1 - Tdap) [place] Comment on above: Postponed from 07/08 (Patient Refused) Start: 10-31-2019 HIV screen HIV screen [place] Comment on above: Postponed from 07/08 (Patient Refused) Start: 10-31-2019 HIV screening HIV screen [place] Comment on above: Postponed from 07/08 (Patient Refused) Start: 10-31-2019 Pneumococcal 0-64 ye ars Vaccine (1 of 1 - PPSV23) Pneumococcal 0-64 years Vaccine (1 of 1 - PPSV23) [place] Comment on above: Postponed from 07/08 (Patient Refused) Start: 10-06-2019 End: 10-06-2019 Office Visit 10/06/2019 Office Visit Primary Care Patria Quiñones CPNP [address] [place] [address] [phone] [facility] Start: 09-29-2019 End: 09-29-2019 Office Visit 09/29/2019 Office Visit Family Medicine Patria Quiñones CPNP [address] [place] [address] [phone] Kash Grier [facility] Start: 05-02-2019 Shingles Vaccine (1 of 2) Shingles Vaccine (1 of 2) [place] Comment on above: Postponed from 07/08 (Patient Refused) Start: 01-15-2019 End: 01-15-2019 Office Visit 01/15/2019 Office Visit Primary Care Margarita Maxwell MD [address] [place] [address] [phone] [facility] Start: 12-15-2018 End: 12-15-2018 Office Visit 12/15/2018 Office Visit Family Medicine Kash Grier MD [address] [place] [address] [phone] Kash [facility]rier [facility] Start: 11-02-2018 Influenza vaccination Flu vaccine (# 1) [place] Start: 07-09-2015 Colon cancer screen colonoscopy Colon cancer screen colonoscopy [place] Start: 07-09-2015 Screening for malign ant neoplasm of colon Colon cancer screen colonoscopy [place] Start: 07-09-2015 Shingles Vaccine (1 of 2) Shingles Vaccine (1 of 2) [place] Start: 07-09-2015 SHINGRIX VACCINE (1 of 2) SHINGRIX VACCINE (1 of 2) [facility] Start: 2010 COLOGUARD (FIT-DNA) COLOGUARD (FIT-D NA) [facility] Start: 2010 Colonoscopy COLONOSCOPY [facility] Start: 2010 COLORECTAL CANCER SCREENING COLORECTAL CANCER SCREENING [facility] Start: [address] COLONOGRAPHY [facility] Start: 2010 DIABETES SCREEN DIABETES SCREEN [facility] Start: 2010 FECAL OCCULT BLOOD FECAL OCCULT BLOO D [facility] Start: 2010 SIGMOIDOSCOPY SIGMOIDOSCOPY [facility] Start: 2005 Diabetes screen Diabetes screen [place], [place] Start: 2005 Lipid screen Lipid screen [place], [place] Start: 2000 LIPID SCREEN LIPID SCREEN [facility] Start: 1984 DTaP/Tdap/Td vaccine (1 - Tdap) DTaP/Tdap/Td vaccine (1 - Tdap) [place] Start: 1984 Urine microalbumin profile DTAP,TDAP,TD (1 - Tdap) [facility] Start: 07-09-1983 Adult BMI Follow Up Plan Adult BMI Follow Up Plan [facility] Start: 07-09-1983 HEPATITIS C SCREENING HEPATITIS C SC REENING [facility] Start: 07-09-1983 HIV SCREENING HIV SCREENING [facility] Start: 1980 HIV screening HIV screen [place], [place] Start: 07-09-1971 Pneumococcal 0-64 ye ars Vaccine (1 of 1 - PPSV23) Pneumococcal 0-64 years Vaccine (1 of 1 - PPSV23) [place] Start: 1970 COVID-19 VACCINE (1) COVID-19 VACCIN E (1) [facility] Start: 1965 Creatinine monitoring Creatinine mon [place]oring [place], [place] Start: 1965 Potassium monitoring Potassium monit [place]ing [place] End: 11-06-2019 COVID-19 COVID-19 Lab Routine One Time for 1 Occurrences starting 11/06/2019 until 11/06/2019 [place] Comment on above: One Time for 1 Occur rences starting 11/06/2019 until 11/06/2019 End: 07-06-2022 Ct cervical spine w/o contrast material CT CERVICAL SPINE WO IVCON Radiology Routine Spinal stenosis of cervical region 1 Occurrences starting 06/06/2021 until 07/06/2022 [facility] Work Phone: Comment on above: 1 Occurrences starti ng 06/06/2021 until 07/06/2022 Oxygen therapy [[facility] Data Set] Initiate Oxygen Therapy Protocol Respiratory Care Routine Daily until discontinued starting 11/10/2019 [place] Comment on above: Daily until disconti nued starting 11/10/2019 Phase I & II - meter ed glucose Phase I & II - metered glucose Point of Care Testing Routine As Needed until discontinued starting 11/10/2019 [place] Comment on above: As Needed until disc ontinued starting 11/10/2019 End: 07-06-2022 Radex spine cervical 4 or 5 views XR CERV OTHER 4V AP/LAT/FLX/EXT Radiology Routine Cervical spondylosis with myelopathy 1 Occurrences starting 06/06/2021 until 07/06/2022 [facility] Work Phone: Comment on above: 1 Occurrences starti ng 06/06/2021 until 07/06/2022 Immunizations Immunization Date Immunization Notes Care Provider Clem ortega 11-04-2019 influenza, seasonal, injectable Colten Amoslong Work Phone: [facility] [address] [place] Work Phone: 11-03-2019 influenza, seasonal, injectable Hunter Julienne SWEATBAND CUTTING MACHINE OPERATOR-CASTING INSPECTOR Work Phone: [facility] 11-03-2019 influenza virus vaccine, unspecified formulation Hunter Julienne SWEATBAND CUTTING MACHINE OPERATOR-CASTING INSPECTOR Work Phone: [facility] 01-21-2019 influenza virus vaccine, unspecified formulation [address] 01-21-2019 influenza, injectabl e, quadrivalent, contains preservative Shivaprasad [place] 01-02-2019 influenza, injectabl e, quadrivalent, contains preservative Colten Raymond Furlong Work Phone: [facility] 600 DO Work Phone: 12-02-2016 influenza, injectabl e, quadrivalent, preservative free [address] Payers Date Payer Category Payer Worker's Compensation 2021 Unknown ANTHEM BLUE ACCE SS PPO [id number] 2021-Present [phone] [address] [place] [address] PPO [id number] 2018 Unknown BC[place] P PO xxxxxxxxxxxx 2018-Present [address] [place] [address] xxxxxxxxxxxx [id number]. [id number] 2018 Unknown [place] PO [id number] 2018-Present [address] [place] [address] [id number]. [id number] 2015 Unknown [id number] 1.2.840.414465.1.13.239.2. 7.3.938538.315 2015 Unknown 1965 Unknown [id number] 2.16840.1.514864.3.579.2. 175 1965 Unknown [id number] 2.16840.1.235084.3.579.2. 175 1965 Unknown [id number] 2.16840.1.549084.3.579.2. 175 1965 Unknown [id number] 2.16840.1.258800.3.579.2. 176 1965 Unknown [id number] 2.16.840.1.047287.3.579.2. 176 1965 Unknown [id number] 2.16840.1.007391.3.579.2. 176 1965 Unknown [id number] 2.16840.1.178199.3.579.2. 176 1965 Unknown [id number] 2.16840.1.218506.3.579.2. 176 1965 Unknown [id number] 2.16.840.1.963050.3.579.2. 176 1965 Unknown [id number] 2.16.840.1.331862.3.579.2. 176 1965 Unknown [id number] 2.16.840.1.124445.3.579.2. 176 1965 Unknown [id number] 2.16.840.1.801591.3.579.2. 176 1965 Unknown [id number] 2.16.840.1.224499.3.579.2. 593 1965 Unknown [id number] 2.16.840.1.934547.3.579.2. 593 1965 Unknown [id number] 2.16.840.1.239017.3.579.2. 593 1965 Unknown [id number] 2.16.840.1.084776.3.579.2. 593 1965 Unknown [id number] 2.16.840.1.761306.3.579.2. 593 1965 Unknown [id number] 2.16.840.1.689053.3.579.2. 593 1965 Unknown [id number] 2.16.840.1.249789.3.579.2. 593 1965 Unknown [id number] 2.16.840.1.135234.3.579.2. 593 1965 Unknown [id number] 2.16.840.1.456140.3.579.2. 593 1965 Unknown [id number] 2.16.840.1.873693.3.579.2. 593 1965 Unknown [id number] 2.16.840.1.755239.3.579.2. 593 1965 Unknown [id number] 2.16.840.1.061143.3.579.2. 593 1965 Unknown [id number] 2.16.840.1.621029.3.579.2. 593 1965 Unknown [id number] 2.16.840.1.890902.3.579.2. 196 1959 Unknown [id number] 1959 Unknown [id number] Social History Date Type Detail Facility Start: 03-04-1978 End: 12-07-2022 Tobacco smoking status NHIS Current every day smoker [facility] Start: 12-08-2018 End: 04-14-2020 Cigarettes smoked current (pack per day) - Reported [facility] Comment on above: 1 ppd; Start: 12-08-2018 End: 04-14-2020 Alcohol intake Yes [facility] Start: 1965 Sex Assigned At Not on file [place] Start: 09-16-2019 End: 12-07-2022 Tobacco use and exposure Never used [place], [place] Start: 09-16-2019 End: 12-17-2022 Alcohol intake Current drinker of alcohol (finding) [place] Exposure to SARS-CoV -2 (event) Not sure [place] Start: 11-02-2019 Alcohol Comment very rare [facility] [place] Start: 06-06-2021 Alcohol intake Ex-drinker (finding) [facility] Start: 1965 Sex Assigned At Male C [facility] Start: 03-04-1978 History of tobacco use Cigarette Smo ker [facility] Adolescent depressio n screening assessment 5 [facility] Start: 03-23-2022 Alcohol Comment rarely [facility] Goals Date Patient Goal Desired Activity /State Personal health goal Comment on above: Formatting of this n ote might be different from the original. Evaluation of progress towards goal: safe transition to home with support of pt's and resumption with outpatient PT. Clinical Notes 11-18-2020 to 04-01-2023 Telephone Encounter - YAO Dunham - 04/01/2023 12:18 AM ESTTelephone Encounter - YAO Dunham - 04/01/2023 12:18 AM Tracy Interiano MD - 06/06/2021 10:10 AM EDT Note Date & Type Note Facility 04-01-2023 Miscellaneous Notes Due for either his well visit or CV - please set up documented in this encounter [facility] 04-01-2023 Telephone encounter Note Due for either his well visit or CV - please set up [facility] 07-31-2022 Note CONSULTATION CONSULTATION DATE: 07/31/2022 CHIEF [...] mg pills, two pills daily p.r.n. and Fish Creek 5 mg b.i.d. p.r.n. As part of providing excellent, safe, comprehensive care, the following was completed at our patient's visit: 1. A medication reconciliation and review to ensure accurate knowledge of current/active medications, including asking our patients to inform us about any gjpg-nlw-ktsojyn medications or herbal remedies/nutritional supplements/alternative remedies. 2. [...] options with their primary care provider. [facility] 06-14-2022 Note CONSULTATION CONSULTATION DATE: 06/14/2022 [...] sooner if needed. We did refill his Fish Creek. He takes 5 mg pills, one pill b.i.d. He did report this medicine does improve his quality of life, level of function and sleep pattern. As part of providing excellent, safe, comprehensive care, the following was completed at our patient's visit: 1. A medication reconciliation and review to ensure accurate knowledge of current/active medications, including asking our patients to inform us about any sder-kwo-chhqikt medications or herbal remedies/nutritional supplements/alternative remedies. 2. [...] options with their primary care provider. [facility] 05-08-2022 Note Subjective Patient ID: Ashok Doss is a 56 y.o. male who presents as a new patient referral from [facility] in [place] for acute deep right calf/soleal muscle vein [...] past 36 hour(s)). No follow-ups on file. [facility] 03-15-2022 Note CONSULTATION CONSULTATION DATE: 03/15/2022 HISTORY [...] with his leg elevated. Current medications include Fish Creek 5/325 b.i.d. and tizanidine p.r.n. Patient's REVIEW [...] postoperatively Orthopedics plans on keeping him on Fish Creek 5/325 b.i.d. I do worry that his post-op pain will not be adequately relieved with Fish Creek, and I did encourage the patient to talk with his Orthopedics' office to discuss this. We will see the patient in the office in three months' time unless otherwise indicated. [facility] 01-16-2022 Note CONSULTATION CONSULTATION DATE: 01/16/2022 [...] recently came off. The patient currently takes Fish Creek 5/325 daily, tizanidine 4 mg q.h.s. Activities aggravate the patient's pain. The patient reports standing too long, walking too long, ADLs aggravate the pain. Heat mitigates the patient's pain. Pushing, pulling, lifting aggravate the pain. Laying down mitigates the pain. The patient takes Fish Creek 5/325 one tablet p.o. daily. He finds [...] left foot. PLAN: We will increase the Fish Creek to 5/325 b.i.d. The patient will also start aquatic program. We will schedule the patient for a rhizotomy, radiofrequency ablation of the dorsal median rami at the level of L2, 3 and L4, 5; given that the patient has had successful medial branch blocks on two separate occasions. CC: Elisabeth Galvan NP [facility] 12-28-2021 Note CONSULTATION CONSULTATION DATE: [...] increased stiffness in his back. Medications include Fish Creek 5/325 q. day p.r.n. and Tizanidine 4 [...] followed up in the clinic thereafter. [facility] 10-26-2021 Note CONSULTATION CONSULTATION DATE: 10/26/2021 [...] 18, which is one year since his CT. He has not been able to gain approval to be off the Brilinta for interventional procedures. He is interested, however, in moving forward with procedures once the Brilinta is discontinued. He has seen Neurosurgery at the [facility] and they would like to do [...] discontinue Tylenol #3 and start him on Fish Creek 5/325 daily p.r.n. Vitamin importance and nutrition were discussed as well. Patient agrees to move forward with this plan and be followed up in the clinic post his #1 procedure. [facility] 07-04-2021 Miscellaneous Notes Neuro SPINE CARE COORDINATION QUICK NOTE Called patient to discuss scheduling for surgery. States he is not ready to schedule but will call back when he is. Also advised it best for recovery to work on quitting smoking. documented in this encounter [facility] 06-06-2021 Note HNO ID: [id number] Author: Megan Interiano MD Service: ? Author [...] lumbar laminectomy approx. 20 years ago in [place]. Did well post-op with resolution of sciatica. Has had chronic low back pain. Over the last 6 months he describes episodes of his legs feeling like rubber . Would occur randomly. Over the last 3 months he's started to experience this in the arms as well. 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 [facility] 06-06-2021 History of Present illness Narrative Images [...] lumbar laminectomy approx. 20 years ago in [place]. Did well post-op with resolution of sciatica. Has had chronic low back pain. Over the last 6 months he describes episodes of his legs feeling like rubber . Would occur randomly. Over the last 3 months he's started to experience this in the arms as well. 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 I examined the patient and evaluated all available films and pertinent documents. We discussed the case and I agree with the plans as outlined in this note. As above, Ashok Doss is a 55 year old male with history of lumbar laminectomy about 20 years ago in [place] who presents for evaluation of mid back pain and LE weakness. Over the last 6 months he describes episodes of his legs feeling like rubber . Would occur randomly. Over the last 3 months he's started to experience this in the arms as well. 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 Electronically Signed:lawanda Leos, June 06, 2021 10:51 AM I agree with the Chief Complaint, ROS, and Past Histories independently gathered by the clinical senior administrative support and the remaining scribed note accurately describes my personal service to the patient. Staff note: 1. PCSM, plan for C4-T2 fusion and decompression, RBAEO reviewed in comprehensive detail, all questions answered to stated satisfaction Megan Interiano MD documented in this encounter [facility] 04-24-2021 Note HNO ID: [id number] Author: Ashia Bermeo APRN.MARTY Service: ? Author Type: Nurse Practitioner Type: [...] lumbar laminectomy approx. 20 years ago in [place]. Did well post-op with resolution of sciatica. [...] Distances ANTIPLATELET OR ANTICOAGULATION STATUS: Yes Previous CT PREVIOUS SPINAL SURGERY: SURGERY #1: L5-S1 Laminectomy in [place] approx. 20 years ago There is no [...] vision or hearing. CARDIOVASCULAR: Hypertension and previous CT RESPIRATORY: Denies SOB, sputum production, and hemoptysis. [...] day PHQ-9 Levels: (more content not included)... [facility] 04-14-2021 Note HNO ID: [id number] Author: Sonja Moser PA-C Service: ? Author Type: Physician Clam Bed Laborer Type: Progress Notes Filed: 04/14/2021 3:29 PM Note Text: Per Triage: Ashok Doss is a 55 year old male that requests evaluation of spine. Per review, they have symptoms of back pain, neck pain, weakness, tingling in legs. Prior spine surgery: Several years ago (20) at a [facility] CMT: Muscle relaxer Studies (Reports unless indicated) [...] is available for review. Sonja Moser PA-C [facility] 04-12-2021 Note HNO ID: [id number] Author: Macario Garcia Service: ? Author Type: ? Type: Progress Notes Filed: 04/14/2021 3:29 PM Note Text: Patient name: Ashok Doss Are you being referred by a [place] for Spine Health Provider or Pain Management Provider at [facility]? No If answer is YES please schedule [...] the facility where the MRI/CT/myelogram was completed: [facility] Address: [address] [place] [address] MRI/CT/myelogram viewable in Epic: No If not, please provide [phone] to fax in imaging reports for review. [...] completed: Several years ago (20) at a [place] [facility] Could not recall any additional information at the time of the call Additional Comments [phone] [facility] 11-20-2020 Note Send Summary: Discharge Summary Providers: Provider RoleProvider Name PrimaryRequired, No Pcp ConsultingJosé Miguel Posey ConsultingRachel Stacy ReferringRequired, No Pcp Rachel Rajan Note Recipients: Rachel Stacy MD - [id number] [preferred] Required, No PcpMD Discharge Summary: Admission Date: .18-Nov-2020 18:57:00 Discharge Date: 20-Nov-2020 Attending Physician at Discharge: Rachel Stacy Admission Reason: Inferior Wall STEMI(1) Final Discharge Diagnoses: Acute inferior ST elevation CT. Procedures: Left heart Catheterization, selective coronary angiography, left ventriculography, LV ao pullback, PCI and drug-eluting stent to the distal mid RCA, selective right common femoral angiography, Angio-Seal deployment. Condition at Discharge: stable Disposition at Discharge: Home Vital Signs: T PRBPSpO2 [id number]/7494% Date/Time11/20 11: 11: 20: 11: 11:20 Range(36.8C - 37C ) (70 - 87 ) (17 - 28 ) (132 - 165 )/ (66 - 82 ) (94% - 99% ) Highest temp of 37 C was recorded at 11/20 7:45 Date: Weight/Scale Type:Height: 18-Nov-2020 23:78185.7 kg 188 cm Physical Exam: Patient is [...] hour away, and will be seeking a compressor operator closer to home, but will be seen at [facility] with me within 1 week to go [...] laboratory results: Troponin I, Serum Trending View [id number] 21:03:00 19-Nov-2020 13:00:00 19-Nov-2020 05:23:00 19-Nov-2020 00:54:00 Lab Comment:Called- RB to Shelia GOODMAN , 11/19/2020 21:43 Called- RB to Michaelle David, 11/19/2020 13:36 Called- RB to Omar Muir, 11/19/2020 06:26 Called- RB to Bandar Baeztevin, 11/19/2020 02:22 Troponin I, Serum10.69 HH 12.77 [...] Authorization (EUA) and has been verified by [facility]. This test is only authorized for the duration (more content not included)... [facility] 11-18-2020 Note History of Present I llness: [...] Brilinta IV heparin, and was transferred to [facility] emergency department. Code purple called was [...] 1 mg IV, and Bairon-Synephrine, with prompt christian of heart rate and blood pressure. At [...] fluids Thank you, Sincerely, Rachel Stacy MD [facility] Comorbidities: Comorbidites: Comorbid Conditionshypertension Allergies: Allergy Status [...] Note Completion Last Updated: 18-Nov-2020 20:21 by Rcahel Stacy) [facility] 11-18-2020 Chief complaint Narrative - Reported ASHOK DOSS is being seen for a cardiovascular evaluation . testing results.ASHOK DOSS is a 55 year old male that presents to the [facility] with his for follow-up on testing. 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 Stacy and was added to my schedule today. He has a recent history of an CT with cardiac catheterization 11/18/2020 with PCI and [...] see if cardiac rehabilitation is possible at [facility] that is closest to his home. [...] refill his sublingual nitro for him today.Testing /22/2021 echocardiogram; LVEF 60 to 65%. Normal RV size and function. Trivial MR, trivial TR, RVSP 32 mmHg.12/23/2020 cardiac stress test; no exercise-induced chest discomfort or ST changes at 76% of MPHR.Assessment:1. CAD; with acute inferior ST elevation CT requiring cardiac catheterization 11/18/2020 with PCI and [...] software was used to prepare this document. -[facility] 127 DO Work Phone: Evaluation note Diagnosis Cervical spondylosis with myelopathy- Primary Loss of balance Other symptoms involving nervous and musculoskeletal systems Spinal stenosis of cervical region Spinal stenosis in cervical region documented [facility] Migraine, unspecified, not intractable, without status migrainosus documented [facility] N[facility]ative* Patient is seen by me for the first time. 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 He was taken to [place] where he had a coronary intervention and [...] the merits of lifestyle modification and exercise. [facility] 600 DO Work Phone: History of Present [...] in order to furtherimprove his hypertension and lipids.-[facility]-Nicole Hodge DO Work Phone: InstructionsNot on filedocumented in this encounter [facility] SystemInstructionsNot on filedocumented in this encounter [facility] Assessments Diagnosis Gouty arthritis of right foot [...] Documents on File Type Date Recorded Patient It Instructor Expl anation Advance Directives and Living Will Power of Media Marketing Coordinator Documents on File Type Date Recorded Patient It Instructor Expl anation ACP-Advance Directive ACP-Power of Media Marketing Coordinator Documents on File Type Date Recorded Patient It Instructor Expl anation ACP-Advance Directive ACP-Power of Media Marketing Coordinator Latest Code Status on File Code Status Date Activated Date Inactivated Comments Full Code 03/24/2022 9:21 AM 03/26/2022 5:36 PM Reason for Referral Status Reason Specialty Diagnoses / Procedures Referre d By Contact Referred To Contact Closed Radiology Diagnoses Effusion of left knee Injury of left knee, subsequent encounter Procedures MRI KNEE LEFT WO CONTRAST Patria Quiñones CPNP [address] [place] [address] Specialty Diagnoses / Procedures Referred By Contac t Referred To Contact CT IMAGING Diagnoses Spinal stenosis of cervical region Procedures CT CERVICAL SPINE WO IVCON CT CERVICAL SPINE W/O CONTRAST MATERIAL Megan Interiano MD [address] [place] [address] Ct Imaging Referral ID Status Reason Start Date Expiration Date Visits Requested Visits Authorized [id number] Authorized Auto-Generat ed Referral 06/06/2021 07/06/2022 1 1 Specialty Diagnoses / Procedures Referred By Contac t Referred To Contact XR IMAGING Diagnoses Cervical spondylosis with myelopathy Procedures XR CERV OTHER 4V AP/LAT/FLX/EXT RADEX SPINE CERVICAL 4 OR 5 VIEWS Vivien Lawton PA-C [address] [place] [address] Xr Imaging Referral ID Status Reason Start Date Expiration Date Visits Requested Visits Authorized [id number] Authorized Auto-Generat ed Referral 06/06/2021 07/06/2022 1 [...] powder, deodorant, jewelry, piercings, perfume, makeup, nail georgian, hair accessories, or hair spray on the [...] hospital. The Day of Surgery: Arrive at [facility] Entrance at the time directed by your surgeon and check in at the desk. If you have a living will or healthcare power of energy attorney, please bring a copy. You will be taken to the pre-op holding area where you will be prepared for surgery. A physical assessment will be performed by a nurse practitioner or dry house worker. Your IV will be started and you [...] encounter* Instructions* Irish Meehan RN - 11/10/[address] [facility] [address] Liu Jackson M.D. [phone] POST OPERATIVE DISCHARGE INSTRUCTIONS KNEE ARTHROSCOPY 1. Follow-up in office seven to ten days after surgery. Call for appointment if not already made. ([phone]). 2. Take pain medication as ordered. 3. [...] WO CONTRAST Patria Quiñones CPNP [address] [place] [address] Status Reason Specialty Diagnoses / Procedures Referre d By Contact Referred To Contact Diagnoses Acute medial meniscus tear of left knee MEDIAL MENISCUS TEAR LEFT KNEE Procedures [place] KNEE SCOPE,DIAGNOSTIC KNEE ARTHROSCOPY WITH PARTIAL MEDICAL MENISECTOMY Liu Jackson MD [address] [facility] [address] [place] [address] [facility] Reason Comments New Patient Reason Comments Schedule Surgery Reason Comments Med Refill (unrecognized sect ion and content) No Status Records FoundNo Status Records FoundNo Status Records FoundNo Status Records FoundNo Status Records FoundNo Status Records FoundNo Status Records FoundNo Status Records Found INFORMATION SOURCE (unrecogn ized section and content) DATE CREATED AUTHOR 05/06/2020 [facility] DATE CREATED AUTHOR AUTHOR'S ORGANIZ ATION 05/07/[address] [facility] DATE CREATED AUTHOR AUTHOR'S ORGANIZ ATION 12/26/2020 [facility] DATE CREATED AUTHOR AUTHOR'S ORGANIZ ATION 07/06/2021 [facility] DATE CREATED AUTHOR AUTHOR'S ORGANIZ ATION 10/26/2021 [employer] DATE CREATED AUTHOR AUTHOR'S ORGANIZ ATION 08/10/2022 [facility] DATE CREATED AUTHOR AUTHOR'S ORGANIZ ATION 08/24/2022 [facility] DATE CREATED AUTHOR AUTHOR'S ORGANIZ ATION 10/18/2022 [facility] Source Comments (unrecognize d section and content) In the event this informatio n is protected by the Federal Confidentiality of Alcohol and Drug Abuse Patient Records regulations: The Federal rules restrict any use of the information to criminally investigate or prosecute any alcohol or drug abuse patient.[facility] the event this information is protected by the Federal Confidentiality of Alcohol and Drug Abuse Patient Records regulations: The Federal rules restrict any use of the information to criminally investigate or prosecute any alcohol or drug abuse patient.[facility] Care Teams (unrecognized sec tion and content) Materials Inspector Relationship Specialty Start Date End Date Colten Parra DO [address], [place] [address] PCP - General Family Medicine 04/03/22 Materials Inspector Relationship Specialty Start Date End Date Colten Parra DO [address], [place] [address] PCP - General Family Medicine 04/03/22 FOR RECORDS PERTAINING TO PATIENTS WHO ARE [...] BE BASED ON THE PRIMARY CLINICAL RECORDS. [facility], [facility]. provides no warranty or guarantee of the accuracy or completeness of information in this document.
== END 2023-04-09 12:57 | disposition home or self-care (01) ==
LOC: PM 12:56
PROVIDERS: PCP Nurse Practitioner Family; Visit Provider Anesthesiology Pain Medicine
DX: M25.552 Pain in left hip (principal); M16.12 Unilateral primary osteoarthritis, left hip
CPT/HCPCS: G0463

== ENCOUNTER 2023-04-23 08:14 | Day surgery (SDC) | payer BC, SELFPAY ==
--- OUTSIDE RECORDS SUMMARY | 2023-04-23 08:18 | XMS_ITS | CCD ---
Author Name Unknown Address [address] [place] [address] Organization [facility] Care Team Providers Care Cleaning Porter Name Role Phone Margarita Maxwell Primary Care Provider [phone] KASH GRIER Referring Unavailabl e GURJIT, SHIVAPRASAD [...] ., DR COMPA Vo Admitting Unavailable JULIENNE, [facility] Primary Care Unavailable AWAD ., DR COMPA Vo Consulting Unavailable SHARP, TRISTA Consulting Unavailable LAKSHMIPATHY ., NARENDRANATH Attending Nora vailable LAKSHMIPATHY ., NARENDRANATH Admitting Nora vailable JULIENNE, [facility] Primary Care Unavailable LAKSHMIPATHY ., NARENDRANATH Consulting Nora vailable HALKER ., AD Attending Unavailable JULIENNE, [facility] Primary Care Unavailable LAKSHMIPATHY ., NARENDRANATH Consulting Nora vailable HALKER ., AD Admitting Unavailable AWAD ., DR COMPA Vo Attending Unavailable AWAD ., DR COMPA Vo Admitting Unavailable JULIENNE, [facility] Primary Care Unavailable MALDONADO ., MYRIAM Consulting Unavailable AWAD ., DR COMPA Vo Attending Unavailable AWAD ., DR COMPA Vo Admitting Unavailable JULIENNE, [facility] Primary Care Unavailable AWAD ., DR COMPA Vo Consulting Unavailable SHARP, TRISTA Consulting Unavailable AWAD ., DR COMPA Vo Attending Unavailable AWAD ., DR COMPA Vo Admitting Unavailable JULIENNE, [facility] Primary Care Unavailable MALDONADO ., MYRIAM Consulting Unavailable AWAD ., DR COMPA Vo Attending Unavailable AWAD ., DR COMPA Vo Admitting Unavailable JULIENNE, [facility] Primary Care Unavailable AWAD ., DR COMPA Vo Consulting Unavailable AWAD ., DR COMPA Vo Attending Unavailable AWAD ., DR COMPA Vo Ad[facility] Unavailable AWAD ., DR COMPA Vo Consulting [facility] Primary Care Unavailable ROBERTO ., [...] vailable LAKSHMIPATHY ., NARENDRANATH Admitting Nora [facility] Primary Care Unavailable [place], DR VASILE Gentile Consulting Unavailable ERNESTO, DR MICHAEL Braun Consulting Unavailable RAUDEL ., AGUSTO Consulting Nora tom AWAD ., DR COMPA Vo Attending Unavailable DELMI ., DR COMPA Vo Admitting Unavailable [facility] Primary Care Unavailable JOEL .MYRIAM Consulting Unavailable WINIFRED BORGES Attending Unavailable Marge GARCIA, Antonio Rodriguez Primary Care Unavailable Armin GARCIA, dEson Bocanegra Attending Unavaila Colten Marques DO Primary Care Provider [phone] Medications Current Medications Medication Drug Class(es) Dates [...] pain 30 tablet 0 11/10/2019 11/15/2019 Active [place] 5-325 MG T ABS TAKE 1 TABLET [...] 09/14/2022 Active take 3 tablets by mo [facility] once daily as needed for muscle spasms [...] Start: 10-06-2019 take 1 tablet by francesco twice daily [...] mg docusate sodium 50 mg / sennosides, chcf 8.6 mg oral tablet (2 sources) Start: [...] Active Start: 05-06-2019 take 1 capsule by [facility] once daily tamsulosin (FLOMAX) 0.4 MG capsule TAKE 1 CAPSULE BY MOUTH EVERY DAY 90 capsule 1 05/06/2019 Active Start: 10-09-2018 take 1 capsule by [facility] once daily tamsulosin (FLOMAX) 0.4 MG [...] Comment on above: Take 1 tablet by [facility] twice daily as needed. 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 Yes [facility] 250 DO Work Phone: 36on 08-23-2022 36 Left vm to reschedul e us and follow up from 08/17/22 Normal [facility] Telephoneon 08-23-2022 Telephone [id number] Fidencio Doss as 1965 M Date Provider Department Center 08/23/2022 Sanjuana2-SARINA PATRIA GLV [facility] No family history on file Normal [facility] XR LSPINE 2_3 VIEWSon 2022 XR [...] by: MICHAEL OROZCO Date: 2022-08-01 08:25 Normal [facility] XR HIPS LUPILLO 3_4V WO [...] by: VASILE VITALE Date: 2022-07-31 14:23 Normal [facility] .BF Diffon 07-23-2022 Body Fld Path Interpretation Normal [facility] Comment on above: Result Comment: Syno vial fluid shows chronic inflammatory cells and synovial cells. Authenticated by: Dr. Luci Leyva Date/Time: Performed By: #### . Body Fluid Differential #### [place] [address] C ANAon 07-23-2022 C NELL --- Final No anaerobic growth after 72 hrs. Normal [facility] Comment on above: Performed By: #### A NAC #### [place] [address] .BF Cell Cnt RBC Aon 023 Fluid RBC Count 3983 /mcL Normal [facility] Comment on above: Performed By: #### . Body Fluid Cell Count RBC Auto #### [place] [address] .BF Cell Cnt WBC Aon 023 Fluid WBC Count 257 /mcL High 0-150 [facility] Comment on above: Performed By: #### . Body Fluid Cell Count WBC Auto #### [place] [address] .BF Diffon 07-21-2022 Fluid Mononuclear Cells 83 % High 0-78 [facility] Comment on above: Performed By: #### . Body Fluid Differential #### [place] [address] Fluid Other Cells 2 % Normal 0-10 [facility] Comment on above: Performed By: #### . Body Fluid Differential #### [place] [address] Fluid Polynuclear Cells 15 % Normal 0-25 [facility] Comment on above: Performed By: #### . Body Fluid Differential #### [place] [address] BF Cell Counton 07-21-2022 Body Fluid Cell Cnt Type Synovial Normal [facility] Comment on above: Performed By: #### F LCC #### [address] [place] [address] C Sterile BFon 07-20-2022 C Sterile BF GRAM STAIN Final No growth at 48 hours. Gram Stain Moderate White Blood Cells No organisms seen. Normal [facility] Comment on above: Performed By: #### C SBF #### [facility] (DEFAULT) [address] [place] [address] [address] Office Visiton 05-08-2022 Follow-up visit [id number] Fidencio Doss as 1965 M Date Provider Department Center 05/08/2022 WINIFRED HOWELL [facility] No family history on file Level of Service:26769 MS OFFICE/OUTPATIENT NEW LOW MDM 30-44 MINUTES Reason for Visit and Comments: New Patient [632] Normal [facility] BNPon 05-03-2022 Natriuretic peptide B (Bld) [Mass/Vol] 41.0 pg/mL Normal <=900.0 [facility] Comment on above: Performed By: #### H STROPN, LIPA, BNP, CMP ####[facility] [address] [place], [place] [address]ZnDr. Jazzy Powell CBC AUTO DIFFon 05-03-2022 BASO # 0.1 103/ul Normal 0.0-0.1 [facility] Comment on above: Performed By: #### C BC #### [facility] [address] [place], [place] [address] Dr. Jazzy Powell Basophils/100 WBC (Bld) 0.5 % Normal 0.2-2.0 [facility] Comment on above: Performed By: #### C BC #### [facility] [address] [place] [address] Dr. Jazzy Powell EO # 0.3 103/ul Normal 0.0-0.7 [facility] Comment on above: Performed By: #### C BC #### [facility] [address] [place] [address] Dr. Jazzy Powell Eosinophils/100 WBC (Bld) 1.8 % Normal 0.9-7.0 [facility] Comment on above: Performed By: #### C BC #### [facility] [address] [place] [address] Dr. Jazzy Powell Erythrocyte distribution width (RBC) [Ratio] 13.1 % Normal 11.0-15.0 [facility] Comment on above: Performed By: #### C BC #### [facility] [address] [place] [address] Dr. Jazzy Powell Hematocrit (Bld) [Volume fraction] 40.7 % Critically low 42.0-54.0 [facility] Comment on above: Performed By: #### C BC #### [facility] [address] [place] [address] Dr. Jazzy Powell Hemoglobin (Bld) [Mass/Vol] 13.7 g/dL Critically low 14.0-18.0 [facility] Comment on above: Performed By: #### C BC #### [facility] [address] [place] [address] Dr. Jazzy Powell IG # 0.09 10e3/ul Critically high 0.00-0.03 [facility] Comment on above: Performed By: #### C BC #### [facility] [address] [place] [address] Dr. Jazzy Powell IG % 0.5 % Normal 0.0-0.5 [facility] Comment on above: Performed By: #### C BC #### [facility] [address] [place] [address] Dr. Jazzy Powell LYMPH # 4.7 103/ul Critically high 1.2-3.8 [facility] Comment on above: Performed By: #### C BC #### [facility] [address] [place] [address] [address] Jazzy Powell Lymphocytes/100 WBC (Bld) 24.5 % Normal 20.5-60.0 [facility] Comment on above: Performed By: #### C BC #### [facility] [address] [place] [address] Dr. Jazzy Powell MANUAL DIFF REQ NO Normal [facility] Comment on above: Performed By: #### C BC #### [facility] [address] [place] [address] Dr. Jazzy Powell MCH (RBC) [Entitic mass] 30.8 pg Normal 25.9-34.0 [facility] Comment on above: Performed By: #### C BC #### [facility] [address] [place] [address] Dr. Jazzy Powell MCHC (RBC) [Mass/Vol] 33.7 g/dL Normal 29.9-35.2 [facility] Comment on above: Performed By: #### C BC #### [facility] [address] [place] [address] Dr. Jazzy Powell MCV (RBC) [Entitic vol] 91.5 fL Normal 80.0-94.0 [facility] Comment on above: Performed By: #### C BC #### [facility] [address] [place] [address] Dr. Jazzy Powell MONO # 2.5 103/ul Critically high 0.3-0.8 [facility] Comment on above: Performed By: #### C BC #### [facility] [address] [place] [address] Dr. Jazzy Powell Monocytes/100 WBC (Bld) 12.8 % Critically high 1.7-12.0 [facility] Comment on above: Performed By: #### C BC #### [facility] [address] [place] [address] Dr. Jazzy Powell NEUT # 11.6 103/ul Critically high 1.4-6.5 [facility] Comment on above: Performed By: #### C BC #### [facility] [address] [place], [place] [address] Dr. Jazzy Powell Neutrophils/100 WBC (Bld) 59.9 % Normal 43.0-75.0 [facility] Comment on above: Performed By: #### C BC #### [facility] [address] [place], [place] [address] Dr. Jazzy Powell Platelet mean volume (Bld) [Entitic vol] 8.4 fL Critically low 9.5-13.5 [facility] Comment on above: Performed By: #### C BC #### [facility] [address] [place] [id number] Jazzy Powell PLT 332 103/ul Normal 150-450 [facility] Comment on above: Performed By: #### C BC #### [facility] [address] [place] [id number] Jazzy Powell RBC 4.45 106/ul Critically low 4.70-6.10 [facility] Comment on above: Performed By: #### C BC #### [facility] [address] [place], [place] [address] Dr. Jazzy Powell WBC 19.3 103/ul Critically high 4.0-11.0 [facility] Comment on above: Performed By: #### C BC #### [facility] [address] [place], [place] [address] Dr. Jazzy Powell CTA CHEST WO W [...] by: TANNER MACEDO Date: 2022-05-03 20:24 Normal [facility] LIPASEon 05-03-2022 Lipase [Catalytic activity/Vol] 126.0 U/L Normal 73.0-393.0 [facility] Comment on above: Performed By: #### H STROPN, LIPA, BNP, CMP ####[facility] [address] [place] [address]Dr. Jazzy Powell PROF 14(COMP METB)on 023 Albumin [Mass/Vol] 3.5 g/dL Normal 3.4-5.0 [facility] Comment on above: Performed By: #### H STROPN, LIPA, BNP, CMP ####[facility] [address] [place] [address]Dr. Jazzy Powell Albumin/Globulin [Mass ratio] 1.0 {ratio} Normal [facility] Comment on above: Performed By: #### H STROPN, LIPA, BNP, CMP ####[facility] [address] [place] [address]Dr. Jazzy Powell ALP [Catalytic activity/Vol] 101 U/L Normal 46-116 [facility] Comment on above: Performed By: #### H STROPN, LIPA, BNP, CMP ####[facility] [address] [place] [address]Dr. Jazzy Powell ALT [Catalytic activity/Vol] 27 U/L Normal 16-63 [facility] Comment on above: Performed By: #### H STROPN, LIPA, BNP, CMP ####[facility] [address] [place] [address]Dr. Jazzy Powell Anion gap [Moles/Vol] 6.1 mmol/L Normal [facility] Comment on above: Performed By: #### H STROPN, LIPA, BNP, CMP ####[facility] [address] [place] [address]Dr. Jazzy Powell AST [Catalytic activity/Vol] 15 U/L Normal 15-37 [facility] Comment on above: Performed By: #### H STROPN, LIPA, BNP, CMP ####[facility] [address] [place] [address]Dr. Jazzy Powell Bilirubin [Mass/Vol] 0.3 mg/dL Normal 0.2-1.0 [facility] Comment on above: Performed By: #### H STROPN, LIPA, BNP, CMP ####[facility] [address] [place], [place] [address]Dr. Jazzy Powell Calcium [Mass/Vol] 8.9 mg/dL Normal 8.5-10.1 [facility] Comment on above: Performed By: #### H STROPN, LIPA, BNP, CMP ####[facility] [address] [place], [place] [address]Dr. Jazzy Powell Chloride [Moles/Vol] 104 mmol/L Normal 98-107 [facility] Comment on above: Performed By: #### H STROPN, LIPA, BNP, CMP ####[facility] [address] [place], [place] [address]Dr. Jazzy Powell CO2 [Moles/Vol] 29.4 mmol/L Normal 21.0-32.0 [facility] Comment on above: Performed By: #### H STROPN, LIPA, BNP, CMP ####[facility] [address] [place], [place] [address]Dr. Jazzy Powell Creatinine [Mass/Vol] 0.85 mg/dL Normal 0.70-1.30 [facility] Comment on above: Performed By: #### H STROPN, LIPA, BNP, CMP ####[facility] [address] [place] [address]Dr. Jazzy Powell EGFR-AF HAITIAN >60 Normal >=60 [facility] Comment on above: Performed By: #### H STROPN, LIPA, BNP, CMP ####[facility] [address] [place] [address]Dr. Jazzy Powell EGFR-NON AF HAITIAN >60 Normal >=60 [facility] Comment on above: Performed By: #### H STROPN, LIPA, BNP, CMP ####[facility] [address] [place] [address]Dr. Jazzy Powell Globulin (S) [Mass/Vol] 3.4 g/dL Normal [facility] Comment on above: Performed By: #### H STROPN, LIPA, BNP, CMP ####[facility] [address] [place] [address]Dr. Jazzy Powell Glucose [Mass/Vol] 95 mg/dL Normal 74-106 [facility] Comment on above: Performed By: #### H STROPN, LIPA, BNP, CMP ####[facility] [address] [place] [address]Dr. Jazzy Powell Potassium [Moles/Vol] 3.5 mmol/L Normal 3.5-5.1 [facility] Comment on above: Performed By: #### H STROPN, LIPA, BNP, CMP ####[facility] [address] [place] [address]Dr. Jazzy Powell Protein [Mass/Vol] 6.9 g/dL Normal 6.4-8.2 [facility] Comment on above: Performed By: #### H STROPN, LIPA, BNP, CMP ####[facility] [address] [place] [address]Dr. Jazzy Powell Sodium [Moles/Vol] 136 mmol/L Normal 136-145 [facility] Comment on above: Performed By: #### H STROPN, LIPA, BNP, CMP ####[facility] [address] [place] [address]Dr. Jazzy Powell Urea nitrogen [Mass/Vol] 17.0 mg/dL Normal 7.0-18.0 [facility] Comment on above: Performed By: #### H STROPN, LIPA, BNP, CMP ####[facility] [address] [place] [address]Dr. Jazzy Powell Urea nitrogen/Creatinine [Mass ratio] 20.0 mg/mg Normal [facility] Comment on above: Performed By: #### H STROPN, LIPA, BNP, CMP ####[facility] [address] [place] [address]Dr. Jazzy Powell PROTIMEon 05-03-2022 INR Coag (PPP) [Relative time] 0.95 {INR} Normal [facility] Comment on above: Performed By: #### P TT, PT ####[facility] [address] [place], [place] [address]Dr. Jazzy Powell INR GUIDELINES SEE BELOW Normal [facility] Comment on above: Result Comment: ANNEMARIE RED INR: 2.0 - 3.0 CONDITIONS NOT LISTED BELOW 2.5 - 3.5 FOR PROSTHETIC HEART VALVE REPLACEMENT 2.5 - 3.5 RECURRENT THROMBOSIS Performed By: #### P TT, PT ####[facility] [address] [place], [place] [address]Dr. Jazzy Powell PT Coag (PPP) [Time] 10.1 s Normal 9.0-11.6 [facility] Comment on above: Performed By: #### P TT, PT ####[facility] [address] [place], [place] [address]Dr. Jazzy Powell PTTon 05-03-2022 aPTT Coag (Bld) [Time] 28.7 s Normal 22.3-36.2 [facility] Comment on above: Performed By: #### P TT, PT ####[facility] [address] [place], [place] [address]Dr. Jazzy Powell TROPONIN, HIGH SENSITIVITYon 05-03-2022 HSTROP 5.1 pg/mL Normal 4.0-76.1 [facility] Comment on above: Result Comment: CUT- OFF POINTS HAVE BEEN ESTABLISHED BASED ON THE FOURTH UNIVERSAL DEFINITIONS OF MYOCARDIAL INFARCTION. THE UPPER REFERENCE LIMIT (URL) OF TROPONIN, DEFINED THE 99TH PERCENTILE OF cTnI DISTRIBUTION IN A REFERENCE POPULATION, HAS BEEN CONFIRMED THE DECISION THRESHOLD FOR ND DIAGNOSIS. Performed By: #### H STROPN, LIPA, BNP, CMP ####[facility] [address] [place], [place] [address]WuDr. Jazzy Powell Covid-19 PCR ([facility])on SARS-CoV-2 (COVID-19) RNA ALLIE+probe Ql (Unsp spec) Not detected Normal NOT DETECTED [facility] Comment on above: Result Comment: When [...] for this test is supported by the [place] of Health and Human Service's declaration that [...] used). Performed By: #### C VDTB #### [facility] [address] [place], [place] [address] Dr. Jazzy Powell MRI FOOT LT WO [...] EDSON PEACOCK Date: 2022-01-01 08:53 Normal [facility] Office Visit (Cardiology)on 10-19-2021 Follow-up visit [...] Weight Tips; Status:Complete - Retrospective Authorization; Done: [id number] Some eating tips that can help you lose weight.; Status:Complete - Retrospective Authorization; Done: [id number] SocHx: Current every day smoker Tobacco Use Screening; Status:Complete; Done: [id number] You need to quit smoking.; Status:Complete - Retrospective Authorization; Done: [id number] You need to stop smoking. Though it is not easy, more than half of all adult smokers have quit. We encourage you to write down all the reasons you should quit smoking and set a quit date for yourself. Ask us how we can help. You may also call 8-751-JFOB-NOW for free resources and assistance.; Status:Complete - Retrospective Authorization; Done: [id number] Unlinked Stop: Brilinta 90 MG Oral Tablet [...] negative for complaint. Vitals Vital Signs Recorded: [id number] 02:25PM Heart Rate74, L Radial Romziaym771, LUE, Sitting Tpvklyygj81, LUE, Sitting Height6 ft 2 in Nebzkz069 lb BMI Gmbnjisunr83.64 kg (more content not included)... Normal [facility] Tobacco Screening.on 022 Fall risk assessment a) No falls within the last year [facility] [address] DO Work Phone: Tobacco use status [facility] a) Yes [facility] y 250 DO Work Phone: Tobacco Screening. 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 Normal [facility] Office Visit (Cardiology)on 05-26-2021 Follow-up visit Diagnoses/Problems [...] we can help. You may also call 0-445-JEUD-NOW for free resources and assistance.; Status:Complete - [...] wall myocardial infarction. He was taken to [facility] where he had a coronary intervention and [...] have been (more content not included)... Normal [facility] Tobacco Screening.on 022 Adult depression screening assessment No [facility] 600 DO Work Phone: Heart Rate Regular [facility] 600 DO Work Phone: Tobacco use status CP a) Yes [facility] Equidam DO Work Phone: Tobacco Screening. Yes [facility] 600 DO Work Phone: CNPNon 05-17-2021 [facility] Telephone (NIQ) ASHOK DOSS ([id number]) 1965 M Date Time Provider Department 05/17/21 ASHIA BERMEO During your visit today, we recorded the following information about you: Liset Lazcano R&D Lab Technician 05/17/2021 12:43 PM Addendum .Received the following record(s) via fax. -XR Foreign Body Eye, MRI Cspine wo Date 05/05/21 Record(s) scanned into pt's chart. Ashia Bermeo APRN.MARTY 05/17/2021 3:18 PM Signed Awaiting CD copy of imaging. Ashia Bermeo APRN.INSULATION WORKER INTERIOR SURFACE Allergies As of Date: 05/17/2021 (No Known [...] Encounter Status:Closed by ASHIA [facility]ERMEO [facility]/17/21 [facility] Tele[facility] (NIQ) ASHOK DOSS ([id number]) 1965 M Date Time Provider Department 05/04/21 ASHIA BERMEO During your visit today, we recorded the following information about you: Liset Lazcano R&D Lab Technician 05/04/2021 11:44 AM Signed Lulu from [place] requesting an Orbit order. Pt is scheduled tomorrow for MRI. Fax - [facility] - [phone] Catherine Stuart RN 05/04/2021 12:16 PM Signed Neuro SPINE CARE COORDINATION QUICK NOTE MRI Cervical order faxed to provided number. Catherine Stuart, RN Chair Car Attendant [facility] 05/04/2021 1:41 PM Signed XR [...] Encounter Status:Closed by CATHERINE STUART on 05/04/21 [facility] CNOVon 04-24-2021 CNOV Office Visit (SPNSMN ) ASHOK DOSS ([id number]) 1965 M Date Time Provider Department 04/24/21 2:15 PM ASHIA BERMEO SPNSMN During your visit today, we recorded the following information about you: Pulse Respiration Blood pressure Weight 79/minute 18/minute 139/68 118.7 kg Height 1.88 m Ashia Bermeo APRN.INSULATION WORKER INTERIOR SURFACE 04/24/2021 3:14 PM Signed SPINE SURGERY OUTPATIENT [...] Distances ANTIPLATELET OR ANTICOAGULATION STATUS: Yes Previous ND PREVIOUS SPINAL SURGERY: SURGERY #1: L5-S1 Laminectomy [...] vision or hearing. CARDIOVASCULAR: Hypertension and previous ND RESPIRATORY: Denies SOB, sputum production, and hemoptysis. [...] PHQ-9 04/17/2021 (more content not included)... Normal [facility] Office Visit (Cardiology)on 12-27-2020 Follow-up visit Orders [...] year old male that presents to the [facility] Office with his for follow-up on testing. He follows with his primary vegetable tier Dr. Stacy and was added to my schedule today. He has a recent history of an ND with cardiac catheterization 11/18/2020 with PCI and [...] see if cardiac rehabilitation is possible at [facility] that is closest to his home. [...] 1. CAD; with acute inferior ST elevation ND requiring cardiac catheterization 11/18/2020 with PCI and [...] itching CARDIOVASCULAR:N (more content not included)... Normal [employer] Tobacco Screening.on 021 Fall risk assessment a) No falls within the last year [place] [address] DO Work Phone: Tobacco use status [facility] a) Yes [place] [address] DO Work Phone: Tobacco Screening. Yes [place] [address] DO Work Phone: Cardiac Stress Teston 2020 Cardiac Stress Test [facility] [address] [facility], [address] [place], [place] [id number] Exercise Stress Test Patient Name: ASHOK DOSS Ordering Physician: [id number] Rachel Stacy MD Study Date: 12/23/2020 Reading Physician: [id number] Antony Pena MD, [facility] MRN/PID: [id number] Supervising Physician: Accession/Order#: [id number] Referring Physician: Sheridan RACHEL STACY Date of : 1965 PCP: Gender: M Fellow: Height: 187.96 cm Nurse: Frida Dewey RN Weight: 119.75 kg [employer] Designer: N/A BSA: 2.45 m2 Technologist: BMI: 33.90 kg/m2 Additional Staff: Age: 55 years cc report to: Patient Location: [facility] cc report to: [id number] Rachel Stacy MD Study Type: Cardiac Stress Test Diagnosis/ICD: I25.10-Atherosclerotic heart disease; I21.19-ST elevation (STEMI) myocardial infarction involving other coronary artery of inferior wall Indication: CAD, INF. ND Procedure/CPT: Stress Test Interpretation-[id number]; Stress Test Supervision-[id number] Falls Risk: Patient Performance: The patient exercised [...] The inadequate level of stress was achieved. [id number] Antony Pena MD, FACC Electronically signed on 12/23/2020 at 5:13:30 PM Final Normal [facility] Cardiac Stress [facility] [address] [place] Work Phone: Echocardiogramon 12-23-2020 Echocardiography [facility] ain [address] [address], [address], [place], [place] [address] TRANSTHORACIC ECHOCARDIOGRAM REPORT Patient Name: ASHOK DOSS Reading Physician: [id number] Antony Pena MD, [facility] Study Date: 12/23/2020 Referring Physician: [id number] RACHEL STACY MRN/PID: [id number] PCP: Colten Parra MD Accession/Order#: [id number] Department Location: [facility] Date of : 1965 Fellow: Gender: M Nurse: Admit Date: [employer] Designer: Latanya Yadav RDCS, RT(R), RDMS, RVT Height: 187.96 cm CC Report to: Weight: 119.75 kg Study Type: Echocardiogram BSA: 2.45 m2 Diagnosis/ICD: I25.10-Atherosclerotic heart disease of [place] coronary artery without angina pectoris; I21.19-ST elevation (STEMI) myocardial infarction involving other coronary artery of inferior wall Indication: HTN PTCA Procedure/CPT: Echo Complete w Full Doppler-[id number] Study Detail: The following Echo studies were [...] 0.8 m/s (0.6-0.9m/s) PV Max P.5 mmHg [id number] Antony Pena MD, FACC Electronically signed on 12/23/2020 at 11:56:24 AM Final Normal [facility] Echocardiography Please click on the link to view the study images Normal -[facility] [address] [place] Work Phone: Discharge Planning [id number] 0 11-20-2020 Discharge Planning Note2 Discharge Planning: Discharge Barriersnone Planned Dispositionhome [facility] 20no PCP/Next Provider Follow Up Scheduledyes Anticipated Discharge [id number] Discharge Planning 11/20/20 tcc NOTE: ROUNDED WITH NURSING, PT ADMITTED FOR NSTEMI, STARTED ON BRILINTA. ADDED FIRER RETORT REFERRAL TO FOLLOW OUTPT . PT TO BE DISCHARGED WITH PRESCRIPTION FOR BRILINTA. DISCOUNT BRILINTA CARD PROVIDED TO NURSING WITH GOOD RX . PT TO BE DISCHARGED HOME ON THIS DATE. NO FURTHER NEEDS IDENTIFIED. NURSING AM-PAC 24, PLAN IS HOME WITH FAMILY. ANJELICA RUSS RN TCC Assessment: Discharge Planning Assessment [id number] Discharge Documentation: Discharge/Transfer Date/[id number] 14:21 Discharged Accompanied Byspouse Discharge Modeambulatory Transportation Methodprivate car Valuables/Medications/B elongings Returnedyes Final DispositionHome Electronic Signatures: Anjelica Russ (DELIVERY MGR) (Signed 20-Nov-2020 13:02) Authored: Discharge Planning, Assessment Madhavi Moore (RN) (Signed 20-Nov-2020 14:21) Authored: Discharge Planning, Discharge Documentation Last Updated: 20-Nov-2020 14:21 by Madhavi Moore (RN) Normal [facility] Discharge [id number] 021 Discharge Profile2 Discharge Orders: Anticipated Discharge Date: Anticipated Discharge [id number] Anticipated Discharge Time12:18 Problem List: Additional Dx: [...] hour away, and will be seeking a vegetable tier closer to home, but will be seen at [facility] with me within 1 week to go [...] Physician/Dept/ServiceP nacho call Dr. Stacy's office at [phone], patient should be seen within the next week. Call to Schedule in1 week Electronic Signatures: Rachel Stacy) (Signed 20-Nov-2020 12:27) Authored: Discharge Orders, Hospital Course (Home Care/Gold Form), Provider FINAL REVIEW of Orders, Appointments, Gold Form - Dimpling Machine Operator Summary Last Updated: 20-Nov-2020 12:27 by Rachel Stacy) [facility] Order Reconciliationon 11-20 Order Reconciliation Page [...] tab(s) orally 2 times a day Normal [facility] APTTon 11-19-2020 APTT Canceled Normal [facility] Comment on above: Order Comment: TEST APTT WAS CANCELLED, 11/19/2020 03:59 DUPLICATE ORDER. Result Comment: THE APTT IS NO LONGER USED FOR MONITORING UNFRACTIONATED HEPARIN THERAPY. FOR MONITORING HEPARIN THERAPY, USE THE HEPARIN ASSAY. Performed By: #### A PTT ####[facility] [place], [place] [id number] aPTT Coag (Bld) [Time] 28 s Normal 25 - 35 [facility] Comment on above: Result Comment: THE APTT IS NO LONGER USED FOR MONITORING UNFRACTIONATED HEPARIN THERAPY. FOR MONITORING HEPARIN THERAPY, USE THE HEPARIN ASSAY. Performed By: #### A PTT #### [address] [id number] BASIC METABOLIC PANELon 11-02 Anion gap [Moles/Vol] 12 mmol/L Normal 10 - 20 [facility] Comment on above: Performed By: #### B MP #### [address] [id number] Calcium [Mass/Vol] 8.4 mg/dL Low 8.6 - 10.3 [facility] Comment on above: Performed By: #### B MP #### [address] [id number] Chloride [Moles/Vol] 109 mmol/L High 98 - 107 [facility] Comment on above: Performed By: #### B MP #### [address] [id number] Creatinine [Mass/Vol] 0.83 mg/dL Normal 0.50 - 1.30 [facility] Comment on above: Performed By: #### B MP #### [address] [id number] GFR- AM. >60 Normal >60 [facility] Comment on above: Result Comment: CALC ULATIONS OF ESTIMATED GFR ARE PERFORMED USING THE MDRD STUDY EQUATION FOR THE IDMS-TRACEABLE CREATININE METHODS. CLIN CHEM 2007;53:766-72 Performed By: #### B MP #### [address] [id number] GFR-NON AM. >60 Normal >60 [facility] Comment on above: Performed By: #### B MP #### [address] [id number] Glucose [Mass/Vol] 115 mg/dL High 74 - 99 [facility] Comment on above: Performed By: #### B MP #### [address] [id number] HCO3 (Bld) [Moles/Vol] 23 mmol/L Normal 21 - 32 [facility] Comment on above: Performed By: #### B MP #### [address] [id number] Potassium [Moles/Vol] 3.8 mmol/L Normal 3.5 - 5.3 [facility] Comment on above: Performed By: #### B MP #### [address] [place] [id number] Sodium [Moles/Vol] 140 mmol/L Normal 136 - 145 [facility] Comment on above: Performed By: #### B MP #### [facility] [address] [place], [place] [id number] Urea nitrogen [Mass/Vol] 20 mg/dL Normal 6 - 23 [facility] Comment on above: Performed By: #### B MP #### [facility] [address] [place], [place] [id number] CBCon 11-19-2020 Erythrocyte distribution width (RBC) [Ratio] 13.3 % Normal 11.5 - 14.5 [facility] Comment on above: Performed By: #### C BC ####[place] [address] [place], [place] [id number] Hematocrit (Bld) [Volume fraction] 41.2 % Normal 41.0 - 52.0 [facility] Comment on above: Performed By: #### C BC ####[place] [place], [place] [id number] Hemoglobin (Bld) [Mass/Vol] 13.5 g/dL Normal 13.5 - 17.5 [facility] Comment on above: Performed By: #### C BC ####[address] [id number] MCHC (RBC) [Mass/Vol] 32.8 g/dL Normal 32.0 - 36.0 [facility] Comment on above: Performed By: #### C BC ####[facility] [place], [place] [id number] MCV (RBC) [Entitic vol] 93 fL Normal 80 - 100 [facility] Comment on above: Performed By: #### C BC ####[address] [id number] Platelets (Bld) [#/Vol] 333 10*3/uL Normal 150 - 450 [facility] Comment on above: Performed By: #### C BC ####[address], [place] [id number] RBC 4.42 x10E12/L Low 4.50 - 5.90 [facility] Comment on above: Performed By: #### C BC ####[facility] [place], [place] [id number] WBC (Bld) [#/Vol] 22.9 10*3/uL High 4.4 - 11.3 [facility] Comment on above: Performed By: #### C BC ####[facility] [place], [place] [id number] Consult-Critical Careon 11-02 Consult-Critical Care Service: Service: Critical Care Consult: Consult requested by (Attending Name): Rachel Stacy Reason: ICU MANAGEMENT History of Present Illness: Admission Reason: Inferior Wall STEMI HPI: ASHOK DOSS is a 55 year old Male Pmhx HTN and active smoker Presented to [facility] ED via [place] d/t Chest pain. Described it as crushing mid sternal pain with radiation to the Left arm. He went to [facility] Last week d/t CP and had respiratory complaints and was sent home and was told he had bronchitis and CP could be 2/2 to. He states he had CP before but never like this, he associated complaints with diaphoresis, presyncopal x2 and weakness. No history of ND before but he is an active pack [...] ankle surgery, carpal tunnel Family history: Father ND, CHF Mother: CAD Social History: Pack a [...] prophylaxis Heme/ID: Elevated WBC 2/2 reactive to ND SCDs for DVT prophylaxis, Enoxaparin -pharmacological DVT measures -hold for now Msk/Integumentaty PT/OT Social/family/dispo: admit to ICU Code; Full *Plan discussed at length with bedside RN and Dr. Zaid Posey MD Consult Status: Consult Order ID: [id number] Attestation: Note Completion: I am a: Advanced Practice Provider Attending Only - Shared Visit with Advanced Practice ProviderThis is a shared visit. I have revi (more content not included)... Normal [facility] Daily Progress Note - Critic al [...] 150-170mmhg. Objective Data: Objective Information T PRBPSpO2 Value37.36001047/7799% Date/Time11/19 1:309/18 17:41918 17:41918 17: 17:41 Range(37.1C [...] None ---- Intake and Output ----- Mn[facility]Dy[facility] Nov 19, 2020 6:00 [id number] The Intake and Output Totals for the last 24 hours are: [facility]Out[facility] [id number] Date: Weight/Scale Type: 18-Nov-2020 23:41041.7 kg Physical Exam by System: Neurological: alert [...] the bedside L3 Electronic Signatures: Leia Stearns (HEALTH AND PHYSICAL EDUCATION TEACHER-INSULATION WORKER INTERIOR SURFACE) (Signed 19-Nov-2020 18:30) Authored: Service, Subjective Data, Objective Data, Assessment and Plan José Miguel Posey) (Signed 19-Nov-2020 22:22) Authored: Note Completion Last Updated: 19-Nov-2020 22:22 by José Miguel Posey) Normal [facility] Daily Progress Note-Cardiofloresita gayle 11-19-2020 Daily Progress [...] 2. Objective Data: Objective Information: T PRBPSpO2 Value37.47336162/8297% Date/Time11/19 1:309 13:309 13:309 13:309 13:30 Range(37.1C [...] None ---- Intake and Output ----- Mn/Dy/Year TimeInt[facility]OutD[facility] Nov 19, 2020 6:00 [id number] The Intake and Output Totals for the last 24 hours are: IntakeOutputNet [id number] Recent Lab Results: Results: CBC: 11/19/2020 05:23 [...] Updated: 19-Nov-2020 17:17 by Rachel Stacy) Normal [facility] HEPARIN ASSAY,UFHon 11-20-19 21 HEPARIN ASSAY,UFH 0.2 IU/mL Normal [facility] Comment on above: Result Comment: The therapeutic reference range for UFH may be either 0.3-0.6 IU/mL or 0.3-0.7 IU/mL based on the clinical setting for anticoagulant therapy and the associated nomogram used. For heparin dosing guidelines based on clinical scenario and Heparin Assay results, please refer to local Pharmacy and the [facility] Guidelines for Anticoagulation therapy available on the [facility] intranet at: [email or web address]://[email or web address]/Pharmacy/Pages/[place]_[facility]_Guid elines_for_Anticoagu.aspx Performed By: #### T ROP2 #### [address] [id number] HEPARIN ASSAY,UFH 0.2 IU/mL Normal [facility] Comment on above: Result Comment: The therapeutic reference range for UFH may be either 0.3-0.6 IU/mL or 0.3-0.7 IU/mL based on the clinical setting for anticoagulant therapy and the associated nomogram used. For heparin dosing guidelines based on clinical scenario and Heparin Assay results, please refer to local Pharmacy and the [facility] Guidelines for Anticoagulation therapy available on the [facility] intranet at: https://[email or web address]/Pharmacy/Pages/[place]_[facility] pitals_Guid elines_for_Anticoagu.aspx Performed By: #### T ROP2 #### [address] [id number] HEPARIN ASSAY,UFH <0.[address] [facility] Comment on above: Result Comment: The therapeutic reference range for UFH may be either 0.3-0.6 IU/mL or 0.3-0.7 IU/mL based on the clinical setting for anticoagulant therapy and the associated nomogram used. For heparin dosing guidelines based on clinical scenario and Heparin Assay results, please refer to local Pharmacy and the [facility] Guidelines for Anticoagulation therapy available on the [facility] intranet at: https://[email or web address]/Pharmacy/Pages/[place]_[facility]_for_Anticoagu.aspx Performed By: #### T ROP2 #### [address] [id number] MAGNESIUMon 11-19-2020 Magnesium [Mass/Vol] 1.80 mg/dL Normal 1.60 - 2.40 [facility] Comment on above: Performed By: #### T ROP2 #### [address] [id number] Measurementson 11-19-2020 Measurements Weight: Weight in kg124.7 kilogram(s) Height: Height in cm188 centimeter(s) Haitian Unit Translation (pounds, inches): Measurement Haitian Unit Translations (Adult only): Weight in bqm720.916 pound(s) Electronic Signatures: Maggie Muir (STAFF N) (Signed 18-Nov-2020 23:08) Authored: Weight, Height, Haitian Unit Translation (pounds, inches) Last Updated: 18-Nov-2020 23:08 by Maggie Muir (STAFF N) Normal [facility] PT/INRon 11-19-2020 PROTHROMBIN TIME Canceled Normal [facility] Comment on above: Order Comment: TEST PT/INR WAS CANCELLED, 11/19/2020 01:33 Performed By: #### P TINR #### [address] [id number] PT, INR Canceled Normal [facility] Comment on above: Order Comment: TEST PT/INR WAS CANCELLED, 11/19/2020 01:33 Performed By: #### P TINR #### [address] [id number] PT Coag (PPP) [Time] 12.8 s Normal 10.1 - 13.3 [facility] Comment on above: Performed By: #### P TINR #### [address] [id number] PT, INR 1.1 Normal 0.9 - 1.1 [facility] Comment on above: Performed By: #### P TINR #### [address] [id number] TROPONIN Ion 11-19-2020 Troponin I.cardiac [Mass/Vol] 10.69 ng/mL Critically high 0.00 - 0.03 [facility] Comment on above: Order Comment: Hedy JOSE [...] is performed using different testing methodology at [facility] than at other [facility]. Direct result comparisons should only be made within the same method. Marce- RB to Shelia GOODMAN , 11/19/2020 21:43 Performed By: #### T ROP2 #### [address] [id number] Troponin I.cardiac [Mass/Vol] 12.77 ng/mL Critically high 0.00 - 0.03 [facility] Comment on above: Order Comment: Hedy JOSE [...] is performed using different testing methodology at [facility] than at [facility]. Direct result comparisons should only be made within the same method. Called- RB to Michaelle David, 11/19/2020 13:36 Performed By: #### T ROP2 #### [address] [id number] Troponin I.cardiac [Mass/Vol] 18.39 ng/mL Critically high 0.00 - 0.03 [facility] Comment on above: Order Comment: Hedy JOSE [...] is performed using different testing methodology at [facility] than at other [facility]. Direct result comparisons should only be made within the same method. Called- RB to Omar Muiridy, 11/19/2020 06:26 Performed By: #### T ROP2 #### [address] [id number] TROPONIN I Canceled Normal [facility] Comment on above: Order Comment: Hedy JOSE [...] is performed using different testing methodology at [facility] than at other [facility]. Direct result comparisons should only be made within the same method. Performed By: #### T ROP2 #### [facility] [address] [place], [place] [id number] Troponin I.cardiac [Mass/Vol] 17.54 ng/mL Critically high 0.00 - 0.03 [facility] Comment on above: Order Comment: Knott d- [...] is performed using different testing methodology at [facility] than at other [facility]. Direct result comparisons should only be made within the same method. Called- RB to Bandar Cesar, 11/19/2020 02:22 Performed By: #### T ROP2 ####[facility] [place], [place] [id number] ACT-LOW RANGEon 11-18-2020 ACT-LOW RANGE 294 SECONDS High 89 - 169 [facility] Comment on above: Result Comment: Note new reference range as of 06/06/2018. Target ACT range will vary based on the patient population, clinical status, and surgical intervention occurring. Performed By: #### T ROP2 #### [address] [id number] ACT-LOW RANGE 207 SECONDS High 89 - 169 [facility] Comment on above: Result Comment: Note new reference range as of 06/06/2018. Target ACT range will vary based on the patient population, clinical status, and surgical intervention occurring. Performed By: #### T ROP2 #### [address] [id number] BNPon 11-18-2020 Natriuretic peptide B (Bld) [Mass/Vol] 33 pg/mL Normal 0 - 99 [facility] Comment on above: Result Comment: . <1 00 pg/mL - Heart failure unlikely 100-299 pg/mL - Intermediate probability of acute heart . failure exacerbation. Correlate with clinical . context and patient history. >=300 pg/mL - Heart Failure likely. Correlate with clinical . context and patient history. BNP testing is performed using different testing methodology at [facility] than at other [facility]. Direct result comparisons should only be made within the same method. Performed By: #### B MP #### [facility] [address] [place], [place] [id number] CBCon 11-18-2020 Erythrocyte distribution width (RBC) [Ratio] 13.3 % Normal 11.5 - 14.5 [facility] Comment on above: Performed By: #### C BC ####[address] [place], [place] [id number] Hematocrit (Bld) [Volume fraction] 44.7 % Normal 41.0 - 52.0 [facility] Comment on above: Performed By: #### C BC ####[address] [id number] Hemoglobin (Bld) [Mass/Vol] 14.6 g/dL Normal 13.5 - 17.5 [facility] Comment on above: Performed By: #### C BC ####[address] [place], [place] [id number] MCHC (RBC) [Mass/Vol] 32.7 g/dL Normal 32.0 - 36.0 [facility] Comment on above: Performed By: #### C BC ####[facility] [place], [place] [id number] MCV (RBC) [Entitic vol] 92 fL Normal 80 - 100 [facility] Comment on above: Performed By: #### C BC ####[address] [place], [place] [id number] Platelets (Bld) [#/Vol] 395 10*3/uL Normal 150 - 450 [facility] Comment on above: Performed By: #### C BC ####[address] [id number] RBC 4.85 x10E12/L Normal 4.50 - 5.90 [facility] Comment on above: Performed By: #### C BC ####[address] [place], [place] [id number] WBC (Bld) [#/Vol] 21.9 10*3/uL High 4.4 - 11.3 [facility] Comment on above: Performed By: #### C BC ####[address] [place], [place] [phone] CHEST 1 VIEWon 11-18-2020 CHEST 1 VIEW STUDY: Chest Radiograph; 11/18/2020 7:22 PM. INDICATION: Concern for dissection, chest pain. COMPARISON: None Available. ACCESSION NUMBER(S): [id number] ORDERING CLINICIAN: JERRY BLAIR MD TECHNIQUE: Frontal chest was obtained at 1919 hours. FINDINGS: CARDIOMEDIASTINAL SILHOUETTE: Cardiomediastinal silhouette is normal in size and configuration. LUNGS: Lungs are clear. ABDOMEN: No remarkable upper abdominal findings. BONES: No acute osseous changes. IMPRESSION: No acute cardiopulmonary process seen. Signed by Racquel Griffiths MD Electronically signed by: RACQUEL GRIFFITHS MD Normal [facility] COMPREHENSIVE PANELon 2020 Albumin [Mass/Vol] 4.2 g/dL Normal 3.4 - 5.0 [facility] Comment on above: Performed By: #### C MP ####[address] [id number] ALP [Catalytic activity/Vol] 74 U/L Normal 33 - 120 [facility] Comment on above: Performed By: #### C MP ####[address] [id number] ALT [Catalytic activity/Vol] 19 U/L Normal 10 - 52 [facility] Comment on above: Result Comment: Carmelita ents treated with Sulfasalazine may generate falsely decreased results for ALT. Performed By: #### C MP ####[address] [id number] Anion gap [Moles/Vol] 12 mmol/L Normal 10 - 20 [facility] Comment on above: Performed By: #### C MP ####[address] [id number] AST [Catalytic activity/Vol] 15 U/L Normal 9 - 39 [facility] Comment on above: Performed By: #### C MP ####[address] [id number] Bilirubin [Mass/Vol] 0.3 mg/dL Normal 0.0 - 1.2 [facility] Comment on above: Performed By: #### C MP ####[address] [id number] Calcium [Mass/Vol] 9.4 mg/dL Normal 8.6 - 10.3 [facility] Comment on above: Performed By: #### C MP ####[address] [id number] Chloride [Moles/Vol] 107 mmol/L Normal 98 - 107 [facility] Comment on above: Performed By: #### C MP ####[address] [id number] Creatinine [Mass/Vol] 1.12 mg/dL Normal 0.50 - 1.30 [facility] Comment on above: Performed By: #### C MP ####[address] [id number] GFR- AM. >60 Normal >60 [facility] Comment on above: Result Comment: CALC ULATIONS OF ESTIMATED GFR ARE PERFORMED USING THE MDRD STUDY EQUATION FOR THE IDMS-TRACEABLE CREATININE METHODS. CLIN CHEM 2007;53:766-72 Performed By: #### C MP ####[address] [id number] GFR-NON AM. >60 Normal >60 [facility] Comment on above: Performed By: #### C MP ####[address] [id number] Glucose [Mass/Vol] 113 mg/dL High 74 - 99 [facility] Comment on above: Performed By: #### C MP ####[facility] [place], [place] [id number] HCO3 (Bld) [Moles/Vol] 28 mmol/L Normal 21 - 32 [facility] Comment on above: Performed By: #### C MP ####[facility] [place], [place] [id number] Potassium [Moles/Vol] 3.8 mmol/L Normal 3.5 - 5.3 [facility] Comment on above: Performed By: #### C MP ####[address] [place], [place] [id number] Protein [Mass/Vol] 7.0 g/dL Normal 6.4 - 8.2 [facility] Comment on above: Performed By: #### C MP ####[address] [place], [place] [id number] Sodium [Moles/Vol] 143 mmol/L Normal 136 - 145 [facility] Comment on above: Performed By: #### C MP ####[address] [place], [place] [id number] Urea nitrogen [Mass/Vol] 19 mg/dL Normal 6 - 23 [facility] Comment on above: Performed By: #### C MP ####[address] [place], [place] [id number] CORONAVIRUS 2019, SCREEN ASY MPTOMATICon 11-18-2020 SARS-CoV-2 (COVID-19) RNA ALLIE+probe Ql (Unsp spec) Not detected Normal Not Detected [facility] Comment on above: Result Comment: . This test has received FDA Emergency Use Authorization (EUA) and has been verified by [facility]. This test is only authorized for the duration of time that circumstances exist to justify the authorization of the emergency use of in vitro diagnostic tests for the detection of SARS-CoV-2 virus and/or diagnosis of COVID-19 infection under section 564(b)(1) of the Act, 21 U.S.C. 360bbb-3(b)(1), unless the authorization is terminated or revoked sooner. [facility] is certified under CLIA-88 as qualified to perform high complexity testing. Testing is performed in the [facility] laboratory located at [address] [place] [address]. SARS-CoV-2/Flu/RSV Multiplex Test: Fact sheet for providers: https://www.fda.gov/media/087127/download Fact sheet for patients: https://www.fda.gov/media/588124/download Performed By: #### C OVSC ####[facility] [place], [place] [phone] Lab Specimen Source Nasal, Nasopharyngeal Normal [facility] Comment on above: Performed By: #### C OVSC ####[address] [place], [place] [id number] Covid 19 Resultson 1 SARS-CoV-2 (COVID-19) RNA [...] You may also be contacted by the [facility] to see if any of [...] or Naproxen (Aleve) can also be used. Mtqm-sts-qqpcnpv cough and cold medicines can be used according to the instructions on the package. Some qldb-jbf-uhlchib medicines also contain acetaminophen. Make sure you [...] water are not available, use alcohol-based hand property utilization officer. Avoid touching your eyes, nose, and mouth [...] 24 oliva (more content not included)... Normal [facility] PCI (Percutaneous Cardiac In tervention)on 11-18-2020 PCI (Percutaneous Cardiac Intervention) [facility], Track Inspector [address] [place] [address] Cardiovascular Catheterization Report Patient Name: Ashok Doss Performing Physician: Sheridan Stacy MD Study Date: 11/18/2020 Verifying Physician: Sheridan Stacy MD MRN/PID: [id number] Interactive Media Marketing Director: Accession/Order#: [id number] Referring Physician: [id number] José Miguel Posey MD Date of : [...] a modified Seldinger technique. Subsequently a 6 Namibian sheath was placed in the right femoral [...] less than 10% distal stenosis. First septal washing machine loader and puller is moderately large and has 0% stenosis. [...] used. Complications (more content not included)... Normal [facility] Provider Note - ED v3on 09- Provider [...] try and relieve some of his symptoms. Track Inspector was activated prehospital and the Track Inspector team was at the bedside upon his arrival. Obtained a quick chest x-ray given he reported that the pain was sharp and radiating to his arm which not show pneumothorax and did not show a widened mediastinum so I doubt he is having dissection. Track Inspector was available so patient was taken directly to Track Inspector for percutaneous intervention for his ST segment elevation ND. I did speak with the playground director team to let them know that the patient be coming to them afterwards. DIAGNOSIS: STEMI DISPOSITION: 1) Track Inspector HISTORY OF PRESENTING ILLNESS ASHOK is a [...] Updated: 18-Nov-2020 20:27 by Jerry Blair) Normal [facility] TROPONIN Ion 11-18-2020 Troponin I.cardiac [Mass/Vol] 0.03 ng/mL Normal 0.00 - 0.03 [facility] Comment on above: Result Comment: LESS [...] is performed using different testing methodology at [facility] than at other [facility]. Direct result comparisons should only be made within the same method. Performed By: #### T ROP2 ####[facility] [place], [place] [id number] Troponinon 05-05-2020 Troponin I.cardiac [Mass/Vol] 7 ng/L Normal 0-22 [facility] Comment on above: Result Comment: High Sensitivity Troponin values cannot be compared with other Troponin methodologies. Patients with high levels of Biotin oral intake (i.e >5mg/day) may have falsely decreased Troponin levels. Samples collected within 8 hours of biotin intake may require additional information for diagnosis. Performed By: #### T ALEXANDRAI #### [employer] [address] [place] [phone] Steward/Stewardess Deck: Shane Peña MD Troponin I.cardiac [Mass/Vol] NOT REPORTED [employer] Phone: Troponin T.cardiac [Mass/Vol] NOT REPORTED <0.03 ng/mL [employer] Phone: Troponin, High Sensitivity 7 ng/L 0 - 22 ng/L [employer] Phone: Comment on above: High Sensitivity Troponin values cannot be compared with other Troponin methodologies. Patients with high levels of Biotin oral intake (i.e >5mg/day) may have falsely decreased Troponin levels. Samples collected within 8 hours of biotin intake may require additional information for diagnosis. Troponinon 05-04-2020 Troponin I.cardiac [Mass/Vol] NOT REPORTED Normal [facility] Comment on above: Performed By: #### T WILLY #### [employer] [address] [place] [address] [phone] Steward/Stewardess Deck: Shane Peña MD CBCon 05-03-2020 Erythrocyte distribution width (RBC) [Ratio] 12.9 % Normal 11.8-14.4 [facility] Comment on above: Performed By: #### C BC, CP, LIPR, TSH #### [employer] [address] [place] [address] [phone] Steward/Stewardess Deck: Shane Peña MD Hematocrit (Bld) [Volume fraction] 43.3 % Normal 40.7-50.3 [facility] Comment on above: Performed By: #### C BC, CP, LIPR, TSH #### [address] [address] Steward/Stewardess Deck: Shane Peña MD Hemoglobin (Bld) [Mass/Vol] 14.0 g/dL Normal 13.0-17.0 [facility] Comment on above: Performed By: #### C BC, CP, LIPR, TSH #### [address] [address] Steward/Stewardess Deck: Shane Peña MD MCH (RBC) [Entitic mass] 29.6 pg Normal 25.2-33.5 [facility] Comment on above: Performed By: #### C BC, CP, LIPR, TSH #### [address] [address] Steward/Stewardess Deck: Shane Peña MD MCHC (RBC) [Mass/Vol] 32.3 g/dL Normal 28.4-34.8 [facility] Comment on above: Performed By: #### C BC, CP, LIPR, TSH #### [address] [address] Steward/Stewardess Deck: Shane Peña MD MCV (RBC) [Entitic vol] 91.5 fL Normal 82.6-102.9 [facility] Comment on above: Performed By: #### C BC, CP, LIPR, TSH #### [address] [address] Steward/Stewardess Deck: Shane Peña MD NRBC Automated 0.0 per 100 WBC Normal 0.0 [facility] Comment on above: Performed By: #### C BC, CP, LIPR, TSH #### [facility] [employer] [address] [place] [address] Steward/Stewardess Deck: Shane Peña MD Platelet mean volume (Bld) [Entitic vol] 9.1 fL Normal 8.1-13.5 [facility] Comment on above: Performed By: #### C BC, CP, LIPR, TSH #### [facility] [address] [place] [address] Steward/Stewardess Deck: Shane Peña MD Platelets (Bld) [#/Vol] 410 10*3/uL Normal 138-453 [facility] Comment on above: Performed By: #### C BC, CP, LIPR, TSH #### [facility] [address] [place] [address] Steward/Stewardess Deck: Shane Peña MD RBC (Bld) [#/Vol] 4.73 10*6/uL Normal 4.21-5.77 [facility] Comment on above: Performed By: #### C BC, CP, LIPR, TSH #### [facility] [address] [place] [address] Steward/Stewardess Deck: Shane Peña MD WBC (Bld) [#/Vol] 14.2 10*3/uL High 3.5-11.3 [facility] Comment on above: Performed By: #### C BC, CP, LIPR, TSH #### [facility] [address] [place] [address] Steward/Stewardess Deck: Shane Peña MD Erythrocyte distribution width (RBC) [Ratio] 12.9 % 11.8 - 14.4 % [employer] Phone: Hematocrit (Bld) [Volume fraction] 43.3 % 40.7 - 50.3 % [employer] Phone: Hemoglobin (Bld) [Mass/Vol] 14.0 g/dL 13 - 17 g/dL [employer] Phone: Interpretation and review of laboratory results Abnormal [employer] Phone: MCH (RBC) [Entitic mass] 29.6 pg 25.2 - 33.5 pg [employer] Phone: MCHC (RBC) [Mass/Vol] 32.3 g/dL 28.4 - 34.8 g/dL [employer] Phone: MCV (RBC) [Entitic vol] 91.5 fL 82.6 - 102.9 fL [employer] Phone: Platelet mean volume (Bld) [Entitic vol] 9.1 fL 8.1 - 13.5 fL [employer] Phone: Platelets (Bld) [#/Vol] 410 10*3/uL [employer] Phone: RBC (Bld) [#/Vol] 4.73 10*6/uL 4.21 - 5.7 7 m/uL [employer] Phone: WBC (Bld) [#/Vol] 0.0 10*3/uL 0.0 per 10 0 WBC [employer] Phone: WBC (Bld) [#/Vol] 14.2 10*3/uL High [employer] Phone: Comp Metabolic Profon 2020 (cont.) Normal [facility] Comment on above: Result Comment: Aver age GFR for 50-59 years old: 93 mL/min/1.73sq m Chronic Kidney Disease: <60 mL/min/1.73sq m Kidney failure: <15 mL/min/1.73sq m eGFR calculated using average adult body mass. Additional eGFR calculator available at: http://www.[employer].virocyt/multiple_crcl_2011.htm Performed By: #### C BC, CP, LIPR, TSH #### [employer] [address] [place], [place] [phone] Steward/Stewardess Deck: Shane Peña MD Albumin [Mass/Vol] 4.1 g/dL Normal 3.5-5.2 [facility] Comment on above: Performed By: #### C BC, CP, LIPR, TSH #### [employer] [address] [place], [place] [phone] Steward/Stewardess Deck: Sahne Peña MD Albumin/Globulin [Mass ratio] 1.8 {ratio} Normal 1.0-2.5 [facility] Comment on above: Performed By: #### C BC, CP, LIPR, TSH #### [facility] [employer] [address] [place] [address] Steward/Stewardess Deck: Shane Peña MD Alkaline Phos 80 U/L Normal 40-129 [facility] Comment on above: Performed By: #### C BC, CP, LIPR, TSH #### [facility] [address] [place] [address] Steward/Stewardess Deck: Shane Peña MD ALT [Catalytic activity/Vol] 18 U/L Normal 5-41 [facility] Comment on above: Performed By: #### C BC, CP, LIPR, TSH #### [facility] [employer] [address] [place] [address] Steward/Stewardess Deck: Shane Peña MD Anion gap [Moles/Vol] 9 mmol/L Normal 9-17 [facility] Comment on above: Performed By: #### C BC, CP, LIPR, TSH #### [facility] [employer] [address] [place] [address] Steward/Stewardess Deck: Shane Peña MD AST [Catalytic activity/Vol] 15 U/L Normal <40 [facility] Comment on above: Performed By: #### C BC, CP, LIPR, TSH #### [facility] [employer] [address] [place] [address] Steward/Stewardess Deck: Shane Peña MD Bilirubin Ql (U) 0.32 mg/dL Normal 0.3-1.2 [facility] Comment on above: Performed By: #### C BC, CP, LIPR, TSH #### [facility] [employer] [address] [place] [address] Steward/Stewardess Deck: Shane Peña MD Calcium [Mass/Vol] 9.4 mg/dL Normal 8.6-10.4 [facility] Comment on above: Performed By: #### C BC, CP, LIPR, TSH #### [facility] [employer] [address] [place] [address] Steward/Stewardess Deck: Shane Peña MD Chloride [Moles/Vol] 102 mmol/L Normal 98-107 [facility] Comment on above: Performed By: #### C BC, CP, LIPR, TSH #### [facility] [employer] [address] [place] [address] Steward/Stewardess Deck: Shane Peña MD CO2 [Moles/Vol] 26 mmol/L Normal 20-31 [facility] Comment on above: Performed By: #### C BC, CP, LIPR, TSH #### [facility] [employer] [address] [place] [address] Steward/Stewardess Deck: Shane Peña MD Creatinine [Mass/Vol] 0.86 mg/dL Normal 0.70-1.20 [facility] Comment on above: Performed By: #### C BC, CP, LIPR, TSH #### [address] [address] Steward/Stewardess Deck: Shane Peña MD GFR, Amer >60 Normal >60 [facility] Comment on above: Performed By: #### C BC, CP, LIPR, TSH #### [facility] [employer] [address] [place] [address] Steward/Stewardess Deck: Shane Peña MD GFR,non Amer >60 Normal >60 [facility] Comment on above: Performed By: #### C BC, CP, LIPR, TSH #### [facility] [employer] [address] [place] [address] Steward/Stewardess Deck: Shane Peña MD Glucose [Mass/Vol] 95 mg/dL Normal 70-99 [facility] Comment on above: Performed By: #### C BC, CP, LIPR, TSH #### [facility] [place] [address] Steward/Stewardess Deck: Shane Peña MD Potassium [Moles/Vol] 4.3 mmol/L Normal 3.7-5.3 [facility] Comment on above: Performed By: #### C BC, CP, LIPR, TSH #### [facility] [address] [place] [address] Steward/Stewardess Deck: Shane Peña MD Protein [Mass/Vol] 6.4 g/dL Normal 6.4-8.3 [facility] Comment on above: Performed By: #### C BC, CP, LIPR, TSH #### [facility] [address] [place] [address] Steward/Stewardess Deck: Shane Peña MD Sodium [Moles/Vol] 137 mmol/L Normal 135-144 [facility] Comment on above: Performed By: #### C BC, CP, LIPR, TSH #### [facility] [address] [place] [address] Steward/Stewardess Deck: Shane Peña MD Urea nitrogen [Mass/Vol] 17 mg/dL Normal -20 [facility] Comment on above: Performed By: #### C BC, CP, LIPR, TSH #### [facility] [address] [place] [address] Steward/Stewardess Deck: Shane Peña MD BUN/CRE Ratio NOT REPORTED Normal -20 [facility] Comment on above: Performed By: #### C BC, CP, LIPR, TSH #### [facility] [address] [place] [address] Steward/Stewardess Deck: Shane Peña MD Staging: NOT REPORTED Normal [facility] Comment on above: Performed By: #### C BC, CP, LIPR, TSH #### [facility] [address] [place] [address] Steward/Stewardess Deck: Shane Peña MD Comprehensive Metabolic Pane carole 05-03-2020 Albumin [Mass/Vol] 4.1 g/dL 3.5 - 5.2 g/dL [employer] Phone: Albumin/Globulin [Mass ratio] 1.8 {ratio} [employer] Phone: ALP [Catalytic activity/Vol] 80 U/L 40 - 129 U/L [employer] Phone: ALT [Catalytic activity/Vol] 18 U/L 5 - 41 U/L [employer] Phone: Anion gap [Moles/Vol] 9 mmol/L 9 - 17 mmol/L [employer] Phone: AST [Catalytic activity/Vol] 15 U/L <40 [employer] Phone: Bilirubin Ql (U) 0.32 mg/dL 0.3 - 1.2 mg/dL [employer] Phone: Bun/Cre Ratio NOT REPORTED [facility] Phone: Calcium [Mass/Vol] 9.4 mg/dL 8.6 - 10. 4 mg/dL [employer] Phone: Chloride [Moles/Vol] 102 mmol/L 98 - 10 7 mmol/L [employer] Phone: CO2 [Moles/Vol] 26 mmol/L 20 - 31 mmol/L [employer] Phone: Creatinine [Mass/Vol] 0.86 mg/dL 0.7 - 1.2 mg/dL [employer] Phone: GFR >60 >60 mL/min [employer] Phone: GFR Non- >60 >60 mL/min [employer] Phone: GFR/1.73 sq M predicted among non-blacks MDRD (S/P/Bld) [Vol rate/Area] [employer] Phone: Comment on above: Average GFR for 50-5 9 years old: 93 mL/min/1.73sq m Chronic Kidney Disease: <60 mL/min/1.73sq m Kidney failure: <15 mL/min/1.73sq m eGFR calculated using average adult body mass. Additional eGFR calculator available at: http://www.[employer]/multiple_crcl_2012.htm GFR/1.73 sq M predicted among non-blacks MDRD (S/P/Bld) [Vol rate/Area] NOT REPORTED [employer] Phone: Glucose [Mass/Vol] 95 mg/dL 70 - 99 mg/dL [employer] Phone: Potassium [Moles/Vol] 4.3 mmol/L 3.7 - 5.3 mmol/L [employer] Phone: Protein [Mass/Vol] 6.4 g/dL 6.4 - 8.3 g/dL [employer] Phone: Sodium [Moles/Vol] 137 mmol/L 135 - 144 mmol/L [employer] Phone: Urea nitrogen [Mass/Vol] 17 mg/dL 6 - 20 mg/dL [employer] Phone: Lipid Panelon 05-03-2020 Cholesterol [Mass/Vol] 172 mg/dL <200 [employer] Phone: Comment on above: Cholesterol Guidelines: <200 Desirable 200-240 Borderline >240 Undesirable Cholesterol in HDL [Mass/Vol] 38 mg/dL Low >40 [employer] Phone: Comment on above: HDL Guidelines: <40 Undesirable 40-59 Borderline >59 Desirable Cholesterol in LDL [Mass/Vol] 106 mg/dL 0 - 130 mg/dL [employer] Phone: Comment on above: LDL Guidelines: <100 Desirable 100-129 Near to/above Desirable 130-159 Borderline >159 Undesirable Direct (measured) LDL and calculated LDL are not interchangeable tests. Cholesterol in VLDL [Mass/Vol] NOT REPORTED 1 - 30 mg/dL [employer] Phone: Cholesterol.total/Ch olesterol in HDL [Mass ratio] 4.5 {ratio} <5 [facility] Phone: Interpretation and review of laboratory results Abnormal [employer] Phone: Triglyceride [Mass/Vol] 138 mg/dL <150 [employer] Phone: Comment on above: Triglyceride Guidelines: <150 Desirable 150-199 Borderline 200-499 High >499 Very high Based on AHA Guidelines for fasting triglyceride, December 2011. Lipid Profileon 05-03-2020 Cholesterol [Mass/Vol] 172 mg/dL Normal <200 [facility] Comment on above: Result Comment: Cholesterol Guidelines: <200 Desirable 200-240 Borderline >240 Undesirable Performed By: #### C BC, CP, LIPR, TSH #### [facility] [address] [place] [address] [phone] Steward/Stewardess Deck: Shane Peña MD Cholesterol in HDL [Mass/Vol] 38 mg/dL Low >40 [facility] Comment on above: Result Comment: HDL Guidelines: <40 Undesirable 40-59 Borderline >59 Desirable Performed By: #### C BC, CP, LIPR, TSH #### [employer] [address] [place] [address] Steward/Stewardess Deck: Shane Peña MD Cholesterol in LDL [Mass/Vol] 106 mg/dL Normal 0-130 [facility] Comment on above: Result Comment: LDL Guidelines: <100 Desirable 100-129 Near to/above Desirable 130-159 Borderline >159 Undesirable Direct (measured) LDL and calculated LDL are not interchangeable tests. Performed By: #### C BC, CP, LIPR, TSH #### [facility] [employer] [address] [place] [address] Steward/Stewardess Deck: Shane Peña MD Cholesterol.total/Ch olesterol in HDL [Mass ratio] 4.5 {ratio} Normal <5 [facility] Comment on above: Performed By: #### C BC, CP, LIPR, TSH #### [facility] [employer] [address] [place] [address] [phone] Steward/Stewardess Deck: Shane Peña MD Triglyceride [Mass/Vol] 138 mg/dL Normal <150 [facility] Comment on above: Result Comment: Triglyceride Guidelines: <150 Desirable 150-199 Borderline 200-499 High >499 Very high Based on AHA Guidelines for fasting triglyceride, December 2011. Performed By: #### C BC, CP, LIPR, TSH #### [facility] [employer] [address] [place] [address] Steward/Stewardess Deck: Shane Peña MD Cholesterol in VLDL [Mass/Vol] NOT REPORTED Normal 04-02 [facility] Comment on above: Performed By: #### C BC, CP, LIPR, TSH #### [facility] [employer] [address] [place] [address] [phone] Steward/Stewardess Deck: Shane Peña MD TSH without Reflexon 021 TSH Qn 1.35 m[IU]/L [facility] [employer] Work Phone: Thyroid Stim. Horm.on 2020 TSH Qn 1.35 m[IU]/L Normal 0.30-5.00 [facility] Comment on above: Performed By: #### C BC, CP, LIPR, TSH #### [facility] [employer] [address] [place] [address] [phone] Steward/Stewardess Deck: Shane Peña MD XR CHEST (2 VW)on [...] Stephan Soto MD 05/03/20 Final result Normal [facility] No evidence for acut e cardiopulmonary pathology. [employer] Phone: EXAMINATION: TWO XRA Y VIEWS OF [...] structures and soft tissues are grossly intact. [employer] Phone: Robert, [facility] Incoming Radiant Results From [employer] - 05/03/2020 11:24 AM EST EXAMINATION: TWO [...] IMPRESSION: No evidence for acute cardiopulmonary pathology. [employer] Phone: Covid-19 Ambulatoryon 2019 SARS-CoV-2, ALLIE Not Detected Not Detected [place] Comment on above: (NOTE) This nucleic acid amplification test was developed and its performance characteristics determined by [facility]. Nucleic acid amplification tests include PCR and [...] detected) result in this assay. Performed At: [facility] [address] [facility], [place] [id number] Lilian Severino [facility] Ph:[phone] [id number] 11-09-2019 SARS-CoV-2 Not Detected Normal Not Detected [facility] Comment on above: Result Comment: (NOT E) This nucleic acid amplification test was developed and its performance characteristics determined by [facility]. Nucleic acid amplification tests include PCR and [...] detected) result in this assay. Performed At: [facility] [address] [facility], [place] [id number] Lilian Severino [facility] Ph:[phone] Performed By: #### A COV #### [facility] [address] [place] [address] Steward/Stewardess Deck: Сергей Ramsey MD EKG 12 Lead[place] 11-04-2019 Atrial Rate 82 BPM [place], [place] 52 degrees [place] P-R Interval 146 [place] Q-T Interval 388 ms [place] QRS Duration 102 ms [place] QTc Calculation (Bazett) 453 ms [place], [place] R [place] -21 degrees [place] T [place] 58 degrees [place] Ventricular Rate 82 BPM [place], [place] Robert, Mhpn Incoming E kg Results From [place] - 11/04/2019 10:29 AM EDT Normal sinus rhythm Normal ECG No previous ECGs available [place], [place] Normal sinus rhythm Normal ECG No previous ECGs available [place] Basic Metabolic Panelon 08- Anion gap [Moles/Vol] 10 mmol/L 9 - 17 mmol/L [place] Bun/Cre Ratio NOT REPORTED [place] Calcium [Mass/Vol] 9.2 mg/dL 8.6 - 10. 4 mg/dL [place] Chloride [Moles/Vol] 104 mmol/L 98 - 10 7 mmol/L [place] CO2 [Moles/Vol] 27 mmol/L 20 - 31 mmol/L [place] Creatinine [Mass/Vol] 0.83 mg/dL 0.7 - 1.2 mg/dL [place] GFR >60 >60 mL/min [place] GFR Non- >60 >60 mL/min [place] GFR/1.73 sq M predicted among non-blacks MDRD (S/P/Bld) [Vol rate/Area] [place] Comment on above: Average GFR for 50-5 9 years old: 93 mL/min/1.73sq m Chronic Kidney Disease: <60 mL/min/1.73sq m Kidney failure: <15 mL/min/1.73sq m eGFR calculated using average adult body mass. Additional eGFR calculator available at: http://www.[employer]/multiple_crcl_2012.htm GFR/1.73 sq M predicted among non-blacks MDRD (S/P/Bld) [Vol rate/Area] NOT REPORTED [place], [place] Glucose [Mass/Vol] 103 mg/dL High 70 - 99 mg/dL [place] Interpretation and review of laboratory results Abnormal [place] Potassium [Moles/Vol] 4.5 mmol/L 3.7 - 5.3 mmol/L [place] Sodium [Moles/Vol] 141 mmol/L 135 - 144 mmol/L [place] Urea nitrogen [Mass/Vol] 18 mg/dL 6 - 20 mg/dL [place] Basic Metabolic Profon 11-01 (cont.) Normal [facility] Comment on above: Result Comment: Aver age GFR for 50-59 years old: 93 mL/min/1.73sq m Chronic Kidney Disease: <60 mL/min/1.73sq m Kidney failure: <15 mL/min/1.73sq m eGFR calculated using average adult body mass. Additional eGFR calculator available at: http://www.[employer]/multiple_crcl_2012.htm Performed By: #### C DP, BMP #### [facility] [address] [facility] [place] [address] Steward/Stewardess Deck: Cheko Boykin DO Anion gap [Moles/Vol] 10 mmol/L Normal 9-17 [facility] Comment on above: Performed By: #### C KLAUS, BMP #### [facility] [address] [facility] [place] [address] Steward/Stewardess Deck: Cheko Boykin DO Calcium [Mass/Vol] 9.2 mg/dL Normal 8.6-10.4 [facility] Comment on above: Performed By: #### C KLAUS, BMP #### [facility] [address] [facility] [place] [address] Steward/Stewardess Deck: Cheko Boykin DO Chloride [Moles/Vol] 104 mmol/L Normal 98-107 [facility] Comment on above: Performed By: #### C DP, BMP #### [facility] [address] [place] [address] Steward/Stewardess Deck: Cheko Boykin DO CO2 [Moles/Vol] 27 mmol/L Normal 20-31 [facility] Comment on above: Performed By: #### C DP, BMP #### [facility] [address] [place] [address] Steward/Stewardess Deck: Cheko Boykin DO Creatinine [Mass/Vol] 0.83 mg/dL Normal 0.70-1.20 [facility] Comment on above: Performed By: #### C DP, BMP #### [facility] [address] [place] [address] Steward/Stewardess Deck: Cheko Boykin DO GFR, Amer >60 Normal >60 [facility] Comment on above: Performed By: #### C DP, BMP #### [facility] [address] [place] [address] Steward/Stewardess Deck: Cheko Boykin DO GFR,non Amer >60 Normal >60 [facility] Comment on above: Performed By: #### C DP, BMP #### [facility] [address] [place] [address] Steward/Stewardess Deck: Cheko Boykin DO Glucose [Mass/Vol] 103 mg/dL High 70-99 [facility] Comment on above: Performed By: #### C DP, BMP #### [facility] [address] [place] [address] Steward/Stewardess Deck: Cheko Boykin DO Potassium [Moles/Vol] 4.5 mmol/L Normal 3.7-5.3 [facility] Comment on above: Performed By: #### C DP, BMP #### [facility] [address] [place] [address] Steward/Stewardess Deck: Cheko Boykin DO Sodium [Moles/Vol] 141 mmol/L Normal 135-144 [facility] Comment on above: Performed By: #### C DP, BMP #### [facility] [address] [facility] [place] [address] Steward/Stewardess Deck: Cheko Boykin DO Urea nitrogen [Mass/Vol] 18 mg/dL Normal 6-20 [facility] Comment on above: Performed By: #### C DP, BMP #### [facility] [address] [facility] [place] [address] Steward/Stewardess Deck: Cheko Boykin DO BUN/CRE Ratio NOT REPORTED Normal -20 [facility] Comment on above: Performed By: #### C DP, BMP #### [facility] [address] [facility] [place] [address] Steward/Stewardess Deck: Cheko Boykin DO Staging: NOT REPORTED Normal [facility] Comment on above: Performed By: #### C DP, BMP #### [facility] [address] [facility] [place] [address] Steward/Stewardess Deck: Cheko Boykin DO CBC Auto Differentialon 08-3 Basophils (Bld) [#/Vol] 0.10 10*3/uL [place] Basophils/100 WBC (Bld) 1 % 0 - 2 % [place] Differential Type NOT REPORTED [place] Eosinophils (Bld) [#/Vol] 0.60 10*3/uL [place] Eosinophils/100 WBC (Bld) 4 % 0 - 4 % [place] Erythrocyte distribution width (RBC) [Ratio] 13.9 % 11.5 - 14.9 % [place] Hematocrit (Bld) [Volume fraction] 42.4 % 41 - 53 % [place] Hemoglobin (Bld) [Mass/Vol] 14.5 g/dL 13.5 - 17.5 g/dL [place] Interpretation and review of laboratory results Abnormal [place] Lymphocytes (Bld) [#/Vol] 4.00 10*3/uL [place] Lymphocytes/100 WBC (Bld) 29 % 24 - 44 % [place] MCH (RBC) [Entitic mass] 30.5 pg 26 - 34 pg [place] MCHC (RBC) [Mass/Vol] 34.2 g/dL 31 - 37 g/dL [place] MCV (RBC) [Entitic vol] 89.1 fL 80 - 100 fL [place] Monocytes (Bld) [#/Vol] 1.00 10*3/uL [place] Monocytes/100 WBC (Bld) 7 % 1 - 7 % [place] Platelet mean volume (Bld) [Entitic vol] 7.1 fL 6 - 12 fL [place] Platelets (Bld) [#/Vol] 378 10*3/uL [place] Platelets (Bld) [#/Vol] NOT REPORTED [place] RBC (Bld) [#/Vol] 4.76 10*6/uL 4.5 - 5.9 m/uL [place] RBC morphology finding Nom (Bld) NOT REPORTED [place] Segmented neutrophils/100 WBC (Bld) 59 % 36 - 66 % [place] Segs Absolute 8.30 [place] WBC (Bld) [#/Vol] 13.9 10*3/uL [place] WBC (Bld) [#/Vol] NOT REPORTED per 100 WBC [place] WBC Morphology NOT REPORTED [place] CBC with Diffon 11-02-2019 Abs. Basophil 0.10 k/uL Normal 0.0-0.2 [facility] Comment on above: Performed By: #### C DP, BMP #### [facility] [address] [place] [address] Steward/Stewardess Deck: Cheko Boykin DO Abs.Neutrophil (Seg) 8.30 k/uL Normal 1.3-9.1 [facility] Comment on above: Performed By: #### C DP, BMP #### [facility] [address] [place] [address] Steward/Stewardess Deck: Cheko Boykin DO Basophils/100 WBC (Bld) 1 % Normal 0-2 [facility] Comment on above: Performed By: #### C DP, BMP #### [facility] [address] [place] [address] Steward/Stewardess Deck: Cheko Boykin DO Eosinophils (Bld) [#/Vol] 0.60 10*3/uL High 0.0-0.4 [facility] Comment on above: Performed By: #### C DP, BMP #### [facility] [address] [place] [address] Steward/Stewardess Deck: Cheko Boykin DO Eosinophils/100 WBC (Bld) 4 % Normal 0-4 [facility] Comment on above: Performed By: #### C DP, BMP #### [facility] [address] [place] [address] Steward/Stewardess Deck: Cheko Boykin DO Erythrocyte distribution width (RBC) [Ratio] 13.9 % Normal 11.5-14.9 [facility] Comment on above: Performed By: #### C DP, BMP #### [facility] [address] [place] [address] Steward/Stewardess Deck: Cheko Boykin DO Hematocrit (Bld) [Volume fraction] 42.4 % Normal 41-53 [facility] Comment on above: Performed By: #### C DP, BMP #### [facility] [address] [place] [address] Steward/Stewardess Deck: Cheko Boykin DO Hemoglobin (Bld) [Mass/Vol] 14.5 g/dL Normal 13.5-17.5 [facility] Comment on above: Performed By: #### C DP, BMP #### [facility] [address] [place] [address] Steward/Stewardess Deck: Cheko Boykin DO Lymphocytes (Bld) [#/Vol] 4.00 10*3/uL Normal 1.0-4.8 [facility] Comment on above: Performed By: #### C DP, BMP #### [facility] [address] [place] [address] Steward/Stewardess Deck: Cheko Boykin DO Lymphocytes/100 WBC (Bld) 29 % Normal 24-44 [facility] Comment on above: Performed By: #### C DP, BMP #### [facility] [address] [place] [address] Steward/Stewardess Deck: Cheko Boykin DO MCH (RBC) [Entitic mass] 30.5 pg Normal 26-34 [facility] Comment on above: Performed By: #### C KLAUS, BMP #### [facility] [address] [place] [address] Steward/Stewardess Deck: Cheko Boykin DO MCHC (RBC) [Mass/Vol] 34.2 g/dL Normal 31-37 [facility] Comment on above: Performed By: #### C KLAUS, BMP #### [facility] [address] [place] [address] Steward/Stewardess Deck: Cheko Boykin DO MCV (RBC) [Entitic vol] 89.1 fL Normal 80-100 [facility] Comment on above: Performed By: #### C DP, BMP #### [facility] [address] [place] [address] Steward/Stewardess Deck: Cheko Boykin DO Monocytes (Bld) [#/Vol] 1.00 10*3/uL Normal 0.1-1.3 [facility] Comment on above: Performed By: #### C DP, BMP #### [facility] [address] [place] [address] Steward/Stewardess Deck: Cheko Boykin DO Monocytes/100 WBC (Bld) 7 % Normal 1-7 [facility] Comment on above: Performed By: #### C DP, BMP #### [facility] [address] [place] [address] Steward/Stewardess Deck: Cheko Boykin DO Neutrophil (Seg) 59 % Normal 36-66 [facility] Comment on above: Performed By: #### C DP, BMP #### [facility] [address] [place] [address] Steward/Stewardess Deck: Cheko Boykin DO Platelet mean volume (Bld) [Entitic vol] 7.1 fL Normal 6.0-12.0 [facility] Comment on above: Performed By: #### C DP, BMP #### [facility] [address] [place] [address] Steward/Stewardess Deck: Cheko Boykin DO Platelets (Bld) [#/Vol] 378 10*3/uL Normal 150-450 [facility] Comment on above: Performed By: #### C DP, BMP #### [facility] [address] [place] [address] Steward/Stewardess Deck: Cheko Boykin DO RBC (Bld) [#/Vol] 4.76 10*6/uL Normal 4.5-5.9 [facility] Comment on above: Performed By: #### C DP, BMP #### [facility] [address] [place] [address] Steward/Stewardess Deck: Cheko Boykin DO WBC (Bld) [#/Vol] 13.9 10*3/uL High 3.5-11.0 [facility] Comment on above: Performed By: #### C DP, BMP #### [facility] [address] [place] [address] Steward/Stewardess Deck: Cheok Boykin DO Abs.Imm.Granulocyte NOT REPORTED Normal 0.00-0.30 [facility] Comment on above: Performed By: #### C DP, BMP #### [facility] [address] [place] [address] Steward/Stewardess Deck: Cheko Boykin DO Auto Diff Performed NOT REPORTED Normal [facility] Comment on above: Performed By: #### C DP, BMP #### [facility] [address] [place] [address] Steward/Stewardess Deck: Cheko Boykin DO Immature granulocytes (Bld) [#/Vol] NOT REPORTED Normal 0 [facility] Comment on above: Performed By: #### C DP, BMP #### [facility] [address] [place] [address] Steward/Stewardess Deck: Cheko Boykin DO NRBC Automated NOT REPORTED Normal [facility] Comment on above: Performed By: #### C DP, BMP #### [facility] [address] [place] [address] Steward/Stewardess Deck: Cheko Boykin DO Platelets (Bld) [#/Vol] NOT REPORTED Normal [facility] Comment on above: Performed By: #### C DP, BMP #### [facility] [address] [place] [address] Steward/Stewardess Deck: Cheko Boykin DO RBC morphology finding Nom (Bld) NOT REPORTED Normal [facility] Comment on above: Performed By: #### C DP, BMP #### [facility] [address] [place] [address] Steward/Stewardess Deck: Cheko Boykin DO WBC Morphology NOT REPORTED Normal [facility] Comment on above: Performed By: #### C LORE ENRIQUE #### [facility] [address] [place] [address] Steward/Stewardess Deck: Cheko Boykin DO Otheron 11-02-2019 Immature granulocytes (Bld) [#/Vol] NOT REPORTED 0 % [facility], [place] MRI KNEE LEFT WO CONTRASTon 10-28-2019 MRI [...] quadriceps tendinosis. 3. Moderate joint effusion. 4. Ftfr-ad-zxpukthk patellofemoral chondromalacia. Mild medial compartment chondromalacia. Superimposed partial and full-thickness fissuring of the weight-bearing medial femoral condyle. 5. Mild edema in the soft tissues about the knee. Interpreted by: Simeon Long MD Signed by: Simeon Long MD 10/28/19 Final result Normal [facility] 1. Complex multidirectional tearing and volume loss in the posterior horn of the medial meniscus. Degeneration and outward extrusion of the medial meniscus body. 2. Mild multifocal patellar tendinosis. Mild distal quadriceps tendinosis. 3. Moderate joint effusion. 4. Enxy-ue-fuetbmza patellofemoral chondromalacia. Mild medial compartment chondromalacia. Superimposed partial and full-thickness fissuring of the weight-bearing medial femoral condyle. 5. Mild edema in the soft tissues about the knee. [place] EXAMINATION: MRI OF THE LEFT KNEE [...] in the soft tissues about the knee. [facility] [place], [place] Robert, Mhpn Incoming Radiant Results From [employer] - 10/28/2019 3:10 PM EDT EXAMINATION: MRI [...] quadriceps tendinosis. 3. Moderate joint effusion. 4. Pcdk-sz-pysnbfib patellofemoral chondromalacia. Mild medial compartment chondromalacia. Superimposed partial and full-thickness fissuring of the weight-bearing medial femoral condyle. 5. Mild edema in the soft tissues about the knee. [place] XR KNEE LEFT (3 VIEWS)on XR [...] Roz Mora MD 09/29/19 Final result Normal [facility] Small joint effusion. [place] EXAMINATION: THREE X RAY VIEWS OF [...] within the medial compartment. Small joint effusion. [place], [place] Robert, pn Incoming Radiant Results From [employer] - 09/29/2019 2:11 PM EDT EXAMINATION: THREE [...] Small joint effusion. IMPRESSION: Small joint effusion. [place] Uric Acidon 09-28-2019 Urate [Mass/Vol] 6.0 mg/dL 3.4 - 7 mg/dL [place] Uric Acidon 12-09-2018 Urate [Mass/Vol] 5.8 mg/dL 3.4 - 7 mg/dL [place] CBCon 11-05-2018 Erythrocyte distribution width (RBC) [Ratio] 13.1 % 11.8 - 14.4 % [place] Hematocrit (Bld) [Volume fraction] 46.1 % 40.7 - 50.3 % [place] Hemoglobin (Bld) [Mass/Vol] 14.9 g/dL 13 - 17 g/dL [place] Interpretation and review of laboratory results Abnormal [place] MCH (RBC) [Entitic mass] 31.0 pg 25.2 - 33.5 pg [place] MCHC (RBC) [Mass/Vol] 32.3 g/dL 28.4 - 34.8 g/dL [place] MCV (RBC) [Entitic vol] 95.8 fL 82.6 - 102.9 fL [place] Platelet mean volume (Bld) [Entitic vol] 9.2 fL 8.1 - 13.5 fL [place] Platelets (Bld) [#/Vol] 374 10*3/uL [place] RBC (Bld) [#/Vol] 4.81 10*6/uL 4.21 - 5.7 7 m/uL [place] WBC (Bld) [#/Vol] 11.8 10*3/uL [place] WBC (Bld) [#/Vol] 0.0 10*3/uL 0.0 per 10 0 WBC [place] Comprehensive Metabolic Pane carole 11-05-2018 Albumin [Mass/Vol] 4.2 g/dL 3.5 - 5.2 g/dL [place] Albumin/Globulin [Mass ratio] 1.7 {ratio} [place] ALP [Catalytic activity/Vol] 83 U/L 40 - 129 U/L [place] ALT [Catalytic activity/Vol] 19 U/L 5 - 41 U/L [place] Anion gap [Moles/Vol] 16 mmol/L 9 - 17 mmol/L [place] AST [Catalytic activity/Vol] 15 U/L <40 [place] Bilirubin Ql (U) 0.29 mg/dL Low 0.3 - 1.2 mg/dL [place] Bun/Cre Ratio NOT REPORTED [place] Calcium [Mass/Vol] 9.5 mg/dL 8.6 - 10. 4 mg/dL [place] Chloride [Moles/Vol] 104 mmol/L 98 - 10 7 mmol/L [place] CO2 [Moles/Vol] 26 mmol/L 20 - 31 mmol/L [place] Creatinine [Mass/Vol] 0.81 mg/dL 0.7 - 1.2 mg/dL [place] GFR >60 >60 mL/min [place] GFR Non- >60 >60 mL/min [place] GFR/1.73 sq M predicted among non-blacks MDRD (S/P/Bld) [Vol rate/Area] NOT REPORTED [place] GFR/1.73 sq M predicted among non-blacks MDRD (S/P/Bld) [Vol rate/Area] [place] Comment on above: Average GFR for 50-5 9 years old: 93 mL/min/1.73sq m Chronic Kidney Disease: <60 mL/min/1.73sq m Kidney failure: <15 mL/min/1.73sq m eGFR calculated using average adult body mass. Additional eGFR calculator available at: http://www.[employer]/multiple_crcl_2012.htm Glucose [Mass/Vol] 99 mg/dL 70 - 99 mg/dL [place] Potassium [Moles/Vol] 4.4 mmol/L 3.7 - 5.3 mmol/L [place] Protein [Mass/Vol] 6.7 g/dL 6.4 - 8.3 g/dL [place] Sodium [Moles/Vol] 146 mmol/L High 135 - 144 mmol/L [place] Urea nitrogen [Mass/Vol] 17 mg/dL 6 - 20 mg/dL [place] Lipid Panelon 11-05-2018 Cholesterol [Mass/Vol] 199 mg/dL <200 [place], [place] Comment on above: Cholesterol Guidelines: <200 Desirable 200-240 Borderline >240 Undesirable Cholesterol in HDL [Mass/Vol] 42 mg/dL >40 [place] Comment on above: HDL Guidelines: <40 Undesirable 40-59 Borderline >59 Desirable Cholesterol in LDL [Mass/Vol] 126 mg/dL 0 - 130 mg/dL [place] Comment on above: LDL Guidelines: <100 Desirable 100-129 Near to/above Desirable 130-159 Borderline >159 Undesirable Direct (measured) LDL and calculated LDL are not interchangeable tests. Cholesterol in VLDL [Mass/Vol] NOT REPORTED High 1 - 30 mg/dL [place] Cholesterol.total/Ch olesterol in HDL [Mass ratio] 4.7 {ratio} <5 [place] Triglyceride [Mass/Vol] 157 mg/dL High <150 [place], [place] Comment on above: Triglyceride Guidelines: <150 Desirable 150-199 Borderline 200-499 High >499 Very high Based on AHA Guidelines for fasting triglyceride, December 2011. Otheron 11-05-2018 Interpretation and review of laboratory results Abnormal [place] Vital Signs Date Time Vital Sign Value Performing Clinician Facility 11-26-2022 15:24-0400 Body height 187.96 cm Colten Barnard [employer] Work Phone: [facility] [employer] 250 DO Work Phone: 11-26-2022 15:24-0400 Body mass index (BMI) [Ratio] 35.31 kg/m2 Colten Barnard [employer] Work Phone: [facility] [employer] 250 DO Work Phone: 11-26-2022 15:24-0400 Body surface area Derived from formula 2.49 m2 Colten Barnard [employer] Work Phone: [facility] [employer] 250 DO Work Phone: 11-26-2022 15:24-0400 Body weight 124.74 kg Colten Barnard [place] Work Phone: [facility] [employer] 250 DO Work Phone: 11-26-2022 15:24-0400 Diastolic blood pressure 72 mm[Hg] Colten Amoslong Work Phone: [facility] [employer] 250 DO Work Phone: 11-26-2022 15:24-0400 Heart rate 70 /min Colten Amoslong Work Phone: [facility] [employer] 250 DO Work Phone: 11-26-2022 15:24-0400 Systolic blood pressure 138 mm[Hg] Colten Amoslong Work Phone: [facility] [employer] 250 DO Work Phone: 10-19-2021 14:25-0400 Body height 187.96 cm Colten Amoslong Work Phone: [facility] [employer] 250 DO Work Phone: 10-19-2021 14:25-0400 Body mass index (BMI) [Ratio] 33.64 kg/m2 Colten Amoslong Work Phone: [facility] [employer] 250 DO Work Phone: 10-19-2021 14:25-0400 Body surface area Derived from formula 2.44 m2 Colten G Furlong Work Phone: [facility] [employer] 250 DO Work Phone: 10-19-2021 14:25-0400 Body weight 118.84 kg Colten Barnard [place] Work Phone: [facility] 250 DO Work Phone: 10-19-2021 14:25-0400 Diastolic blood pressure 68 mm[Hg] Colten G Furlong Work Phone: [facility] 250 DO Work Phone: 10-19-2021 14:25-0400 Heart rate 74 /min Colten G Furlong Work Phone: [facility] 250 DO Work Phone: 10-19-2021 14:25-0400 Systolic blood pressure 130 mm[Hg] Colten G Furlong Work Phone: [facility] 250 DO Work Phone: 06-06-2021 10:10-0400 Body height 188 cm Megan Interiano MD Work Phone: [facility] 06-06-2021 10:10-0400 Body weight 116.8 kg Megan Interiano MD Work Phone: [facility] 06-06-2021 10:10-0400 Diastolic blood pressure 71 mm[Hg] Megan Interiano MD Work Phone: [facility] 06-06-2021 10:10-0400 Heart rate 62 /min Megan Interiano MD Work Phone: [facility] 06-06-2021 10:10-0400 Respiratory rate 16 /min Megan Interiano MD Work Phone: [facility] 06-06-2021 10:10-0400 SaO2% (BldA) [Mass fraction] 98 % Megan Interiano MD Work Phone: [facility] 06-06-2021 10:10-0400 Systolic blood pressure 148 mm[Hg] Megan Interiano MD Work Phone: [facility] 05-26-2021 09:27-0400 Body height 187.96 cm Colten G Furlong Work Phone: [facility] 600 DO Work Phone: 05-26-2021 09:27-0400 Body mass index (BMI) [Ratio] 33.41 kg/m2 Colten G Furlong [facility] 600 DO Work Phone: 05-26-2021 09:27-0400 Body surface area Derived from formula 2.43 m2 Colten G Furlong Work [facility] 600 DO Work Phone: 05-26-2021 09:27-0400 Body weight 118.03 kg Colten G Furlong [facility] 600 DO Work Phone: 05-26-2021 09:27-0400 Diastolic blood pressure 66 mm[Hg] Colten G Furlong [facility] 600 DO Work Phone: 05-26-2021 09:27-0400 Heart rate 62 /min Colten G Furlong Work [facility] 600 DO Work Phone: 05-26-2021 09:27-0400 Systolic blood pressure 122 mm[Hg] Colten G Furlong [facility] 600 DO Work Phone: 12-27-2020 13:15-0400 Body height 187.96 cm Colten G Furlong Work Phone: [facility] [employer] 127 DO Work Phone: 12-27-2020 13:15-0400 Body mass index (BMI) [Ratio] 33.64 kg/m2 Colten G Furlong Work Phone: [facility] [employer] 127 DO Work Phone: 12-27-2020 13:15-0400 Body surface area Derived from formula 2.44 m2 Colten G Furlong Work Phone: [facility] 127 DO Work Phone: 12-27-2020 13:15-0400 Body weight 118.84 kg Colten G Furlong Work Phone: [facility] 127 DO Work Phone: 12-27-2020 13:15-0400 Diastolic blood pressure 74 mm[Hg] Colten G Furlong Work Phone: [facility] 127 DO Work Phone: 12-27-2020 13:15-0400 Heart rate 74 /min Colten G Furlong Work Phone: [facility] [facility] 127 DO Work Phone: 12-27-2020 13:15-0400 Systolic blood pressure 131 mm[Hg] Colten G Furlong Work Phone: [facility] 127 DO Work Phone: 12-23-2020 09:15-0400 0 1 Colten G Furlong Work Phone: [facility] [employer] [address] [place] Work Phone: Comment on above: [id number] 11-10-2019 13:25-0400 BP Diastolic 78 mm[Hg] [facility] [place] 11-10-2019 13:25-0400 BP Systolic 140 mm[Hg] Liu [place] [facility] , [place] 11-10-2019 13:25-0400 Pulse (Heart Rate) 78 /min Liu [email or web address] [facility], [place] 11-10-2019 13:25-0400 Pulse Oximetry 97 % Liu [email or web address] [facility] , [place] 11-10-2019 13:25-0400 Respiratory Rate 16 /min Liu Granadosse [facility], [place] 11-10-2019 12:43-0400 Body Temperature 97.2 [degF] Liu Jackson [facility], [place] 11-10-2019 10:06-0400 BMI (Body Mass Index) 35.31 kg/m2 Liu Jackson [facility], [place] 11-10-2019 10:06-0400 Body weight 124.74 kg Liu Jackson [facility] , [place] 11-10-2019 10:06-0400 Height 188 cm Liu Jackson [facility] , [place] 11-02-2019 11:08-0400 BMI (Body Mass Index) 35.31 kg/m2 [address], [place] 11-02-2019 11:08-0400 Body Temperature 98.01 [degF] [address] 11-02-2019 11:08-0400 Body weight 124.[address] 11-02-2019 11:08-0400 BP Diastolic 94 mm[Hg] [address] 11-02-2019 11:08-0400 BP Systolic 147 mm[Hg] [address] , [place] 11-02-2019 11:08-0400 Height [address] 11-02-2019 11:08-0400 Pulse (Heart Rate) 83 /min [address] 11-02-2019 11:08-0400 Pulse Oximetry 99 % [address] 11-02-2019 11:08-0400 Respiratory Rate 18 /min [address] Encounters Encounter Date Encounter Type Care Provider Facility Start: 04-01-2023 Refill Hunter Robins HEALTH 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 Facility:[facility]1 Start: 07-31-2022 End: 08-01-2022 ambulatory AD GOTTLIEB . Facility:[facility]1 Start: 07-20-2022 End: 07-21-2022 ambulatory Antonio Bird MD Facility:[facility] Start: 06-14-2022 End: 06-15-2022 ambulatory NARAMANDA NUNEZPATHY . Facility:[facility]1 Start: 05-08-2022 ambulatory [facility] Start: 05-03-2022 End: 05-03-2022 ambulatory HUNTER ROBINS Facility:H1 Start: 03-15-2022 End: 03-16-[address] COMPA AWAD . Facility:[facility]1 Start: 02-15-2022 Encounter for preprocedural laboratory examination DR COMPA AWAD . [facility] Start: 02-13-2022 End: 02-13-[address] [...] Rx Renewal Colten Pérez ng Work Phone: [facility] 250 DO Work Phone: Start: 01-08-2022 Rx Renewal Colten Pérez ng Work Phone: [facility] 250 DO Work Phone: Start: 12-28-2021 End: 12-29-2021 ambulatory HUNTER ROBINS Facility:[facility]1 Start: 12-28-2021 End: 12-29-[address] COMPA AWAD . Facility:[facility]1 Start: 12-12-2021 End: 12-12-[address] COMPA AWAD . Facility: Start: 11-29-2021 Rx Renewal Colten figueroa Work Phone: [facility] 250 DO Work Phone: Start: 10-26-2021 End: 10-27-[address] COMPA AWAD . Facility: Start: 10-19-2021 Office outpatient vi sit 25 minutes [facility] Work Phone: Start: 08-23-2021 Message Colten fig[facility]eroa [facility] Work Phone: Start: 07-04-2021 Telephone encounter Megan garcia MD Work Phone: [facility] [place] Comment on above: Schedule Surgery Start: 06-06-2021 End: 06-06-2021 Patient encounter procedure Megan Interiano MD Work Phone: [facility] [place] Comment on above: Cervical spondylosis with myelopathy (Primary Dx); Loss of balance; Spinal stenosis of cervical region Start: 05-26-2021 Office outpatient vi sit 25 minutes Colten Parra Work Phone: [facility] 600 DO Work Phone: Start: 01-03-2021 Chart Update [facility]eroa [facility] Work Phone: Start: 12-27-2020 FUV, Provider: Kalie Lebron, Status: Pen, Time: 1:00 PM Colten Parra Work Phone: [facility] [place] Work Phone: Start: 12-27-2020 Office outpatient vi sit 25 minutes Colten [facility]ng [facility] DO Work Phone: Start: 12-23-2020 Patient encounter procedure Colten Parra Work Phone: [facility] [place] Work Phone: Start: 05-04-2020 End: 05-05-2020 Patient encounter procedure MISSYD Paulina [facility] Start: 05-04-2020 End: 05-04-2020 Subsequent hospital visit by physician Kash GARCÍA [place] [facility] Start: 05-03-2020 End: 05-04-2020 Patient encounter procedure MISSYD Paulina [facility] Start: 05-03-2020 End: 05-03-2020 Subsequent hospital visit by physician Kash GARCÍA [place] [facility] Comment on above: Chest discomfort; Essential hypertension Start: 05-03-2020 End: 05-06-2020 Patient encounter procedure FLACO CARTER [facility] Start: 05-03-2020 End: 05-05-2020 Subsequent hospital visit by physician Alexa Shukla Xr Rm 1 [facility] Comment on above: Chest discomfort Start: 11-10-2019 End: 11-10-2019 Patient encounter procedure LIU J [facility] Start: 11-10-2019 End: 11-10-2019 Subsequent hospital visit by physician Liu Jackson Work Phone: [facility] Comment on above: Acute medial meniscu s tear of left knee, initial encounter (Primary Dx) Start: 11-06-2019 End: 11-11-2019 Patient encounter procedure ANAYA HORTON [facility] Start: 11-06-2019 End: 11-10-2019 Subsequent hospital visit by physician Alexa Amaya19 Pat Screening Schedule [facility] Pre-Admit Testing Start: 11-02-2019 End: 11-06-2019 Patient encounter procedure MARGARITA [facility] Start: 11-02-2019 End: 11-06-2019 Subsequent hospital visit by physician [facility] Pat Rm 2 [facility] Pre-Admit Testing Start: 10-27-2019 End: 10-30-2019 Patient encounter procedure BRENDAVARAMÓNSAD Paulina [facility] Start: 10-27-2019 End: 10-29-2019 Subsequent hospital visit by physician Alexa Mri Rm 119 [facility] MRI Comment on above: Effusion of left kne e; Injury of left knee, subsequent encounter Start: 09-29-2019 End: 10-02-2019 Patient encounter procedure BRENDAVAPRASAD Paulina [facility] Start: 09-29-2019 End: 10-01-2019 Subsequent hospital visit by physician Alexa Xr Room 4 [facility] Radiology Comment on above: Acute pain of left k nee Start: 09-29-2019 End: 09-29-2019 Patient encounter procedure KASH GRIER [facility] Start: 09-28-2019 End: 09-28-2019 Subsequent hospital visit by physician Margarita GARCÍA [place] [facility] Comment on above: Gout of foot, unspec ified cause, unspecified chronicity, unspecified laterality Start: 12-09-2018 End: 12-09-2018 Subsequent hospital visit by physician Margarita GARCÍA [place] [facility] Comment on above: Gouty arthritis of r ight foot Start: 11-05-2018 End: 11-05-2018 Subsequent hospital visit by physician Margarita GARCÍA [place] [facility] Comment on above: Essential hypertensi on; Prostate cancer screening Procedures Date Procedure Procedure Detail Performing Clinician Start: 12-14-2022 Adult depression scr eening assessment Hunter Robins HEALTH AND PHYSICAL EDUCATION TEACHER-INSULATION WORKER INTERIOR SURFACE Work Phone: Start: 06-04-2021 Adult depression scr [...] Phone: Start: 09-28-2019 Assay of blood/uric acid KSAH GRIER Start: 09-28-2019 Assay of blood/uric acid [...] colon Colon Cancer Screening 3 Year Cologuard [facility] Start: 05-03-2025 Lipid panel Lipid screen [facility] Work Phone: Start: 04-28-2025 Hepatitis C screening Hepatitis C sc [facility] Work Phone: Comment on above: Postponed from 07/08 (Patient Refused) Start: 04-28-2025 HIV screening HIV screen [facility] Work Phone: Comment on above: Postponed from 07/08 (Patient Refused) Start: 12-23-2023 Tobacco Counseling Tobacco Counselin [facility] Comment on above: Postponed from 07/08 (Not Indicated) Start: 12-18-2023 Adult BMI Screening Adult BMI Screen ing [facility] Start: 12-18-2023 Tobacco Screening Tobacco Screening [facility] Start: 12-15-2023 Depression Screening Depression Scre [facility] Start: 11-06-2023 Lipid panel Lipid screen [facility], [place] Start: 11-06-2023 Lipid screen Lipid screen [place], [place] Start: 06-09-2023 Administration of varicella zoster vaccine Zoster (Shingles) Vaccine (1 of 2) [facility] Comment on above: Postponed from 07/08 (Patient Refused) Start: 06-09-2023 DTaP,Tdap and Td Vaccines (1 - Tdap) DTaP,Tdap and Td Vaccines (1 - Tdap) [facility] Comment on above: Postponed from 07/08 (Patient Refused) Start: 06-02-2023 Influenza vaccination Influenza Vacc ine [facility] Comment on above: Postponed from 11/02 (Patient Refused) Start: 05-01-2023 End: 05-01-2023 Patient encounter procedure 05/01/2023 10:30 AM EST [facility] [address] [place] [address] Hunter Robins, HEALTH AND PHYSICAL EDUCATION TEACHER-INSULATION WORKER INTERIOR SURFACE [address] [place] [address] [facility] Start: 07-13-2022 FUV, Provider: Leonid Figueredo, Status: Pen, Time: 9:00 AM FUV, Provider: Leonid Figueredo, Status: Pen, Time: 9:00 AM [facility] 250 DO Work Phone: Start: 06-04-2022 Adult depression screening assessment DEPRESSION SCREENING [facility] Start: 11-02-2021 Influenza vaccination INFLUENZ A (Season Ended) [facility] Start: 10-27-2021 FUV, Provider: Leonid Figueredo, Status: Pen, Time: 2:50 PM FUV, Provider: Leonid Figueredo, Status: Pen, Time: 2:50 PM [facility] 600 DO Work Phone: Start: 05-03-2021 Creatinine measurement Creatinine mo nitoring [employer] Phone: Start: 05-03-2021 Potassium monitoring Potassium monit oring [employer] Phone: Start: 04-28-2021 Influenza vaccination Flu vaccine (# 1) [employer] Phone: Comment on above: Postponed from 11/02 (Patient Refused) Start: 04-28-2021 Pneumococcal 0-64 ye ars Vaccine (1 of 1 - PPSV23) Pneumococcal 0-64 years Vaccine (1 of 1 - PPSV23) [facility] Work Phone: Comment on above: Postponed from 07/08 (Patient Refused) Start: 03-30-2021 FUV, Provider: Rachel Stacy, Status: Pen, Time: 4:30 PM FUV, Provider: Rachel Stacy, Status: Pen, Time: 4:[address] [facility] 127 DO Work Phone: Start: 12-27-2020 FUV, Provider: Kalie Lebron, Status: Pen, Time: 1:00 PM FUV, Provider: Kalie Lebron, Status: Pen, Time: 1:[address] [facility] 127[address] [place] Work Phone: Start: 11-01-2020 Creatinine measurement Creatinine mo nitoring [place], [place] Start: 11-01-2020 Potassium monitoring Potassium monit [place]ing [place] Start: 10-05-2020 Shingles Vaccine (1 of 2) Shingles Vaccine (1 of 2) [place] Comment on above: Postponed from 07/08 (Patient Refused) Start: 2020 PROSTATE CANCER SCREENING DISCUSSION PROSTATE CANCER SCREENING DISCUSSION [facility] Start: 05-26-2020 End: 05-26-2020 Office Visit 05/26/2020 Office Visit Primary Care Margarita Maxwell MD [address] [place] [id number] [facility] Start: 12-16-2019 End: 12-16-2019 Office Visit 12/16/2019 Office Visit Family Medicine Kash Grier MD [address] [place] [address] [id number] Kash Grier MD [facility] Start: 12-08-2019 End: 12-08-2019 Office Visit 12/08/2019 Office Visit Primary Care Patria Quiñones CPNP [address] [place] [address] [phone] [facility] Start: 11-23-2019 End: 11-23-2019 Office Visit 11/23/2019 Office Visit Orthopedic Surgery Liu Jackson MD [address] [facility] [address] [place] [address] [phone] [facility] Start: 11-10-2019 End: 11-10-2019 Hospital Encounter [facility] Comment on above: KNEE ARTHROSCOPY WIT H PARTIAL MEDICAL MENISECTOMY Start: 11-06-2019 End: 11-06-2019 Appointment 11/06/2019 Appointment Pre-Admission Testing [facility]mit [facility] Start: 11-06-2019 Creatinine measurement Creatinine mo nitoring [place] Start: 11-06-2019 Creatinine monitoring Creatinine mon itoring [place] Start: 11-06-2019 Potassium monitoring Potassium monit oring [place] Start: 11-03-2019 Influenza vaccination Flu vaccine (# 1) [place] Start: 11-02-2019 End: 11-02-2019 Appointment 11/02/2019 Appointment Pre-Admission Testing [facility]mit [facility] Start: 10-31-2019 DTaP/Tdap/Td vaccine (1 - Tdap) DTaP/Tdap/Td vaccine (1 - Tdap) [place] Comment on above: Postponed from 07/08 (Patient Refused) Start: 10-31-2019 HIV screen HIV screen [place], [place] Comment on above: Postponed from 07/08 (Patient Refused) Start: 10-31-2019 [facility] [place] Comment on above: Postponed from 07/08 (Patient Refused) Start: 10-31-2019 Pneumococcal 0-64 ye ars Vaccine (1 of 1 - PPSV23) Pneumococcal 0-64 years Vaccine (1 of 1 - PPSV23) [place] Comment on above: Postponed from 07/08 (Patient Refused) Start: 10-06-2019 End: 10-06-2019 Office Visit 10/06/2019 Office Visit Primary Care Patria Quiñones CPNP [address] [place] [address] [phone] [facility] Start: 09-29-2019 End: 09-29-2019 Office Visit 09/29/2019 Office Visit Family Medicine Patria Quiñones CPNP [address] [place] [address] [phone] Kash Grier [facility] Start: 05-02-2019 Shingles Vaccine (1 of 2) Shingles Vaccine (1 of 2) [place] Comment on above: Postponed from 07/08 (Patient Refused) Start: 01-15-2019 End: 01-15-2019 Office Visit 01/15/2019 Office Visit Primary Care Margarita Maxwell MD [address] [place] [address] [phone] [facility] Start: 12-15-2018 End: 12-15-2018 Office Visit 12/15/2018 Office Visit Family Medicine Kash Grier MD [address] [place] [address] [phone] Kash Grier [facility] Start: 11-02-2018 Influenza vaccination Flu vaccine (# 1) [place] Start: 07-09-2015 Colon cancer screen colonoscopy Colon cancer screen colonoscopy [place], [place] Start: 07-09-2015 Screening for malign ant neoplasm of colon Colon cancer screen colonoscopy [place], [place] Start: 07-09-2015 Shingles Vaccine (1 of 2) Shingles Vaccine (1 of 2) [place] Start: 07-09-2015 SHINGRIX VACCINE (1 of 2) SHINGRIX VACCINE (1 of 2) [facility] Start: 2010 COLOGUARD (FIT-DNA) COLOGUARD (FIT-D NA) [facility] Start: 2010 Colonoscopy COLONOSCOPY [facility] Start: 2010 COLORECTAL CANCER SCREENING COLORECTAL CANCER SCREENING [facility] Start: [address] COLONOGRAPHY [facility] Start: 2010 DIABETES SCREEN DIABETES SCREEN [facility] Start: 2010 FECAL OCCULT BLOOD FECAL OCCULT BLOO D [facility] Start: 2010 SIGMOIDOSCOPY SIGMOIDOSCOPY [facility] Start: 2005 Diabetes screen Diabetes screen [place], [place] Start: 2005 Lipid screen Lipid screen [place], [place] Start: 2000 LIPID SCREEN LIPID SCREEN [facility] Start: 1984 DTaP/Tdap/Td vaccine (1 - Tdap) DTaP/Tdap/Td vaccine (1 - Tdap) [place] Start: 1984 Urine microalbumin profile DTAP,TDAP,TD (1 - Tdap) [facility] Start: 07-09-1983 Adult BMI Follow Up Plan Adult BMI Follow Up Plan [facility] Start: 07-09-1983 HEPATITIS C SCREENING HEPATITIS C SC REENING [facility] Start: 07-09-1983 HIV SCREENING HIV SCREENING [facility] Start: 1980 HIV screening HIV screen [place], [place] Start: 07-09-1971 Pneumococcal 0-64 ye ars Vaccine (1 of 1 - PPSV23) Pneumococcal 0-64 years Vaccine (1 of 1 - PPSV23) [place] Start: 1970 COVID-19 VACCINE (1) COVID-19 VACCIN E (1) [facility] Start: 1965 Creatinine monitoring Creatinine mon itoring [place], [place] Start: 1965 Potassium monitoring Potassium monit oring [place] End: 11-06-2019 COVID-19 COVID-19 Lab Routine One Time for 1 Occurrences starting 11/06/2019 until 11/06/2019 [place] Comment on above: One Time for 1 Occur rences starting 11/06/2019 until 11/06/2019 End: 07-06-2022 Ct cervical spine w/o contrast material CT CERVICAL SPINE WO IVCON Radiology Routine Spinal stenosis of cervical region 1 Occurrences starting 06/06/2021 until 07/06/2022 [facility] Work Phone: Comment on above: 1 Occurrences starti ng 06/06/2021 until 07/06/2022 Oxygen therapy [[facility] Data Set] Initiate Oxygen Therapy Protocol Respiratory Care Routine Daily until discontinued starting 11/10/2019 [place], [place] Comment on above: Daily until disconti nued starting 11/10/2019 Phase I & II - meter ed glucose Phase I & II - metered glucose Point of Care Testing Routine As Needed until discontinued starting 11/10/2019 [place] Comment on above: As Needed until disc ontinued starting 11/10/2019 End: 07-06-2022 Radex spine cervical 4 or 5 views XR CERV OTHER 4V AP/LAT/FLX/EXT Radiology Routine Cervical spondylosis with myelopathy 1 Occurrences starting 06/06/2021 until 07/06/2022 [facility] Work Phone: Comment on above: 1 Occurrences starti ng 06/06/2021 until 07/06/2022 Immunizations Immunization Date Immunization Notes Care Provider Clem ortega 11-04-2019 influenza, seasonal, injectable Colten Amoslong Work Phone: [facility] [address] [place] Work Phone: 11-03-2019 influenza, seasonal, injectable Hunter Julienne HEALTH AND PHYSICAL EDUCATION TEACHER-INSULATION WORKER INTERIOR SURFACE Work Phone: [facility] 11-03-2019 influenza virus vaccine, unspecified formulation Hunter Julienne HEALTH AND PHYSICAL EDUCATION TEACHER-INSULATION WORKER INTERIOR SURFACE Work Phone: [facility] 01-21-2019 influenza virus vaccine, unspecified formulation [address] 01-21-2019 influenza, injectabl e, quadrivalent, contains preservative Shivaprasad [place] 01-02-2019 influenza, injectabl e, quadrivalent, contains preservative Colten Raymond Furlong Work Phone: [facility] 600 DO Work Phone: 12-02-2016 influenza, injectabl e, quadrivalent, preservative free [address] Payers Date Payer Category Payer Worker's Compensation 2021 Unknown [employer] SS PPO [id number] 2021-Present [phone] [address] [place] [address] PPO [id number] 2018 Unknown BCBS [place] P PO xxxxxxxxxxxx 2018-Present [address] [place] [address] xxxxxxxxxxxx [id number] 2018 Unknown BC[place] P PO [id number] 2018-Present [address] [place] [address] [id number] 2015 Unknown [id number] [id number]. [id number] 2015 Unknown 1965 Unknown [id number] 2.16840.1.877571.3.579.2. 175 1965 Unknown [id number] 2.16840.1.193387.3.579.2. 175 1965 Unknown [id number] 2.16840.1.056873.3.579.2. 175 1965 Unknown [id number] 2.16840.1.324154.3.579.2. 176 1965 Unknown [id number] 2.16.840.1.093806.3.579.2. 176 1965 Unknown [id number] 2.16840.1.141140.3.579.2. 176 1965 Unknown [id number] 2.16840.1.830538.3.579.2. 176 1965 Unknown [id number] 2.16840.1.387307.3.579.2. 176 1965 Unknown [id number] 2.16.840.1.825009.3.579.2. 176 1965 Unknown [id number] 2.16.840.1.595995.3.579.2. 176 1965 Unknown [id number] 2.16.840.1.791339.3.579.2. 176 1965 Unknown [id number] 2.16.840.1.500938.3.579.2. 176 1965 Unknown [id number] 2.16.840.1.193315.3.579.2. 593 1965 Unknown [id number] 2.16.840.1.353731.3.579.2. 593 1965 Unknown [id number] 2.16.840.1.432910.3.579.2. 593 1965 Unknown [id number] 2.16.840.1.570911.3.579.2. 593 1965 Unknown [id number] 2.16.840.1.279218.3.579.2. 593 1965 Unknown [id number] 2.16.840.1.133986.3.579.2. 593 1965 Unknown [id number] 2.16.840.1.084446.3.579.2. 593 1965 Unknown [id number] 2.16.840.1.686032.3.579.2. 593 1965 Unknown [id number] 2.16.840.1.689848.3.579.2. 593 1965 Unknown [id number] 2.16.840.1.220608.3.579.2. 593 1965 Unknown [id number] 2.16.840.1.800494.3.579.2. 593 1965 Unknown [id number] 2.16.840.1.257171.3.579.2. 593 1965 Unknown [id number] 2.16.840.1.148174.3.579.2. 593 1965 Unknown [id number] 2.16.840.1.270410.3.579.2. 196 1959 Unknown [id number] 1959 Unknown [id number] Social History Date Type Detail Facility Start: 03-04-1978 End: 12-07-2022 Tobacco smoking status NHIS Current every day smoker [facility] Start: 12-08-2018 End: 04-14-2020 Cigarettes smoked current (pack per day) - Reported [facility] Comment on above: 1 ppd; Start: 12-08-2018 End: 04-14-2020 Alcohol intake Yes [facility] Start: 1965 Sex Assigned At Not on file [place] Start: 09-16-2019 End: 12-07-2022 Tobacco use and exposure Never used [place] Start: 09-16-2019 End: 12-17-2022 Alcohol intake Current drinker of alcohol (finding) [place] Exposure to SARS-CoV -2 (event) Not sure [place] Start: 11-02-2019 Alcohol Comment very rare [facility] [place], [place] Start: 06-06-2021 Alcohol intake Ex-drinker (finding) [facility] Start: 1965 Sex Assigned At Male [facility] Start: 03-04-1978 History of tobacco use Cigarette Smo ker [facility] Adolescent depressio n screening assessment 5 [facility] Start: 03-23-2022 Alcohol Comment rarely [facility] Goals Date Patient Goal Desired Activity [...] please set up documented in this encounter [facility] 04-01-2023 Telephone encounter Note Due for either his well visit or CV - please set up [facility] 07-31-2022 Note CONSULTATION CONSULTATION DATE: [...] mg pills, two pills daily p.r.n. and [place] 5 mg b.i.d. p.r.n. As part of providing excellent, safe, comprehensive care, the following was completed at our patient's visit: 1. A medication reconciliation and review to ensure accurate knowledge of current/active medications, including asking our patients to inform us about any ivqd-owx-kujtouc medications or herbal remedies/nutritional supplements/alternative remedies. 2. [...] options with their primary care provider. [facility] 06-14-2022 Note CONSULTATION CONSULTATION DATE: 06/14/2022 [...] sooner if needed. We did refill his [place]. He takes 5 mg pills, one pill b.i.d. He did report this medicine does improve his quality of life, level of function and sleep pattern. As part of providing excellent, safe, comprehensive care, the following was completed at our patient's visit: 1. A medication reconciliation and review to ensure accurate knowledge of current/active medications, including asking our patients to inform us about any hxjj-fry-rpjentf medications or herbal remedies/nutritional supplements/alternative remedies. 2. [...] options with their primary care provider. [facility] 05-08-2022 Note Subjective Patient ID: Ashok Doss is a 56 y.o. male who presents as a new patient referral from [facility] Medicine in [place] for acute deep right calf/soleal muscle vein [...] past 36 hour(s)). No follow-ups on file. [facility] 03-15-2022 Note CONSULTATION CONSULTATION DATE: 03/15/2022 [...] with his leg elevated. Current medications include [place] 5/325 b.i.d. and tizanidine p.r.n. Patient's REVIEW [...] postoperatively Orthopedics plans on keeping him on [place] 5/325 b.i.d. I do worry that his post-op pain will not be adequately relieved with [place], and I did encourage the patient to talk with his Orthopedics' office to discuss this. We will see the patient in the office in three months' time unless otherwise indicated. [facility] 01-16-2022 Note CONSULTATION CONSULTATION DATE: 01/16/2022 [...] recently came off. The patient currently takes [place] 5/325 daily, tizanidine 4 mg q.h.s. Activities aggravate the patient's pain. The patient reports standing too long, walking too long, ADLs aggravate the pain. Heat mitigates the patient's pain. Pushing, pulling, lifting aggravate the pain. Laying down mitigates the pain. The patient takes [place] 5/325 one tablet p.o. daily. He finds [...] left foot. PLAN: We will increase the [place] to 5/325 b.i.d. The patient will also start aquatic program. We will schedule the patient for a rhizotomy, radiofrequency ablation of the dorsal median rami at the level of L2, 3 and L4, 5; given that the patient has had successful medial branch blocks on two separate occasions. CC: Elisabeth Galvan NP [facility] 12-28-2021 Note CONSULTATION CONSULTATION DATE: [...] increased stiffness in his back. Medications include [place] 5/325 q. day p.r.n. and Tizanidine 4 [...] followed up in the clinic thereafter. [facility] 10-26-2021 Note CONSULTATION CONSULTATION DATE: 10/26/2021 [...] 18, which is one year since his ND. He has not been able to gain approval to be off the Brilinta for interventional procedures. He is interested, however, in moving forward with procedures once the Brilinta is discontinued. He has seen Neurosurgery at the [facility] and they would like to do a [...] discontinue Tylenol #3 and start him on [place] 5/325 daily p.r.n. Vitamin importance and nutrition were discussed as well. Patient agrees to move forward with this plan and be followed up in the clinic post his #1 procedure. [facility] 07-04-2021 Miscellaneous Notes Neuro SPINE CARE COORDINATION QUICK NOTE Called patient to discuss scheduling for surgery. States he is not ready to schedule but will call back when he is. Also advised it best for recovery to work on quitting smoking. documented in this encounter [facility] 06-06-2021 Note HNO ID: [id number] Author: Megan Interiano MD Service: ? 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 [facility] 06-06-2021 History of Present illness Narrative Images [...] well. 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 I examined the patient and evaluated [...] well. 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 Staff note: 1. PCSM, plan for C4-T2 fusion and decompression, RBAEO reviewed in comprehensive detail, all questions answered to stated satisfaction Megan Interiano MD documented in this encounter [facility] 04-24-2021 Note HNO ID: [id number] Author: Ashia Bermeo APRN.MARTY Service: ? Author [...] Distances ANTIPLATELET OR ANTICOAGULATION STATUS: Yes Previous ND PREVIOUS SPINAL SURGERY: SURGERY #1: L5-S1 Laminectomy [...] vision or hearing. CARDIOVASCULAR: Hypertension and previous ND RESPIRATORY: Denies SOB, sputum production, and hemoptysis. [...] day PHQ-9 Levels: (more content not included)... [facility] 04-14-2021 Note HNO ID: [id number] Author: Sonja Moser PA-C Service: ? Author Type: Physician Transportation Dispatch Manager Type: Progress Notes Filed: 04/14/2021 3:29 PM Note Text: Per Triage: Ashok Doss is a 55 year old male that requests evaluation of spine. Per review, they have symptoms of back pain, neck pain, weakness, tingling in legs. Prior spine surgery: Several years ago (20) at a [facility] CMT: Muscle relaxer Studies (Reports unless [...] is available for review. Sonja Moser PA-C [facility] 04-12-2021 Note HNO ID: [id number] Author: Macario Garcia Service: ? Author Type: ? Type: Progress Notes Filed: 04/14/2021 3:29 PM Note Text: Patient name: Ashok Doss Are you being referred by a [place] for Spine Health Provider or Pain Management Provider at [facility]? No If answer is YES please schedule [...] the facility where the MRI/CT/myelogram was completed: [facility] Address: [address] [place] [address] MRI/CT/myelogram viewable in Epic: No If not, please provide [phone] to fax in imaging reports for review. [...] completed: Several years ago (20) at a [facility] Could not recall any additional information at the time of the call Additional Comments [phone] [facility] 11-20-2020 Note Send Summary: Discharge Summary Providers: Provider RoleProvider Name PrimaryRequired, No Pcp ConsultingJosé Miguel Posey ConsultingRachel Stacy ReferringRequired, No Pcp Rachel Rajan Note Recipients: Rachel Stacy MD - [id number] [preferred] Required, No PcpMD Discharge Summary: Admission Date: .18-Nov-2020 18:57:00 Discharge Date: 20-Nov-2020 Attending Physician at Discharge: Rachel Stacy Admission Reason: Inferior Wall STEMI(1) Final Discharge Diagnoses: Acute inferior ST elevation ND. Procedures: Left heart Catheterization, selective coronary angiography, left ventriculography, LV ao pullback, PCI and drug-eluting stent to the distal mid RCA, selective right common femoral angiography, Angio-Seal deployment. Condition at Discharge: stable Disposition at Discharge: Home Vital Signs: T PRBPSpO2 [id number]/7494% Date/Time11/20 11: 11: 20: 11: 11:20 Range(36.8C - 37C ) (70 - 87 ) (17 - 28 ) (132 - 165 )/ (66 - 82 ) (94% - 99% ) Highest temp of 37 C was recorded at 11/20 7:45 Date: Weight/Scale Type:Height: 18-Nov-2020 23:01299.7 kg 188 cm Physical Exam: Patient is [...] hour away, and will be seeking a vegetable tier closer to home, but will be seen at [facility] with me within 1 week to go [...] laboratory results: Troponin I, Serum Trending View [id number] 21:03:00 19-Nov-2020 13:00:00 19-Nov-2020 05:23:00 19-Nov-2020 00:54:00 [...] Authorization (EUA) and has been verified by [facility]. This test is only authorized for the duration (more content not included)... [facility] 11-18-2020 Note History of Present I [...] Brilinta IV heparin, and was transferred to [facility] emergency department. Code purple called was alerted. [...] 1 mg IV, and Bairon-Synephrine, with prompt faith of heart rate and blood pressure. At [...] fluids Thank you, Sincerely, Rachel Stacy MD [facility] Comorbidities: Comorbidites: Comorbid Conditionshypertension Allergies: [...] Last Updated: 18-Nov-2020 20:21 by Rachel Stacy) [facility] 11-18-2020 Chief complaint Narrative - Reported ASHOK DOSS is being seen for a cardiovascular evaluation . testing results.ASHOK DOSS is a 55 year old male that presents to the [facility] with his for follow-up on testing. He follows with his primary vegetable tier Dr. Stacy and was added to my schedule today. He has a recent history of an ND with cardiac catheterization 11/18/2020 with PCI and [...] see if cardiac rehabilitation is possible at [facility] that is closest to his home. [...] refill his sublingual nitro for him today.Testing ezkbrjiy67/22/2021 echocardiogram; LVEF 60 to 65%. Normal RV size and function. Trivial MR, trivial TR, RVSP 32 mmHg.12/23/2020 cardiac stress test; no exercise-induced chest discomfort or ST changes at 76% of MPHR.Assessment:1. CAD; with acute inferior ST elevation ND requiring cardiac catheterization 11/18/2020 with PCI and [...] software was used to prepare this document. -[facility]-[place] 127 DO Work Phone: Evaluation note Diagnosis Cervical spondylosis with myelopathy- Primary Loss of balance Other symptoms involving nervous and musculoskeletal systems Spinal stenosis of cervical region Spinal stenosis in cervical region [facility] Migraine, unspecified, not intractable, without status migrainosus [facility] N[facility]* Patient is seen by me for the first time. 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 He was taken to [facility] where he had a coronary intervention and [...] the merits of lifestyle modification and exercise. [facility] 600 DO Work Phone: History of Present [...] in order to furtherimprove his hypertension and lipids.-[facility]-Nicole Hodge DO Work Phone: InstructionsNot on filedocumented in this encounter [facility]ructionsNot on filedocumented in this encounter [facility] Assessments Diagnosis Gouty arthritis of [...] Documents on File Type Date Recorded Patient Air Valve Mechanic Expl anation Advance Directives and Living Will Power of Environmental Sciences Professor Documents on File Type Date Recorded Patient Air Valve Mechanic Expl anation ACP-Advance Directive ACP-Power of Environmental Sciences Professor Documents on File Type Date Recorded Patient Air Valve Mechanic Expl anation ACP-Advance Directive ACP-Power of Environmental Sciences Professor Latest Code Status on File Code Status Date Activated Date Inactivated Comments Full Code 03/24/2022 9:21 AM 03/26/2022 5:36 PM Reason for Referral Status Reason Specialty Diagnoses / Procedures Referre d By Contact Referred To Contact Closed Radiology Diagnoses Effusion of left knee Injury of left knee, subsequent encounter Procedures MRI KNEE LEFT WO CONTRAST Patria Quiñones CPNP [address] [place] [address] Specialty Diagnoses / Procedures Referred By Contac t Referred To Contact CT IMAGING Diagnoses Spinal stenosis of cervical region Procedures CT CERVICAL SPINE WO IVCON CT CERVICAL SPINE W/O CONTRAST MATERIAL Megan Interiano MD [address] [place] [address] Ct Imaging Referral ID Status Reason Start Date Expiration Date Visits Requested Visits Authorized [id number] Authorized Auto-Generat ed Referral 06/06/2021 07/06/2022 1 1 Specialty Diagnoses / Procedures Referred By Contac t Referred To Contact XR IMAGING Diagnoses Cervical spondylosis with myelopathy Procedures XR CERV OTHER 4V AP/LAT/FLX/EXT RADEX SPINE CERVICAL 4 OR 5 VIEWS Vivien Lawton PA-C [address] [place] [address] Xr Imaging Referral ID Status Reason Start Date Expiration Date Visits Requested Visits Authorized [id number] Authorized Auto-Generat ed Referral 06/06/2021 07/06/2022 1 [...] powder, deodorant, jewelry, piercings, perfume, makeup, nail citizen of [place], hair accessories, or hair spray on the [...] hospital. The Day of Surgery: Arrive at [facility] Entrance at the time directed by your surgeon and check in at the desk. If you have a living will or healthcare power of disability attorney, please bring a copy. You will be taken to the pre-op holding area where you will be prepared for surgery. A physical assessment will be performed by a nurse practitioner or brew house supervisor. Your IV will be started [...] encounter* Instructions* Irish Meehan RN - 11/10/2019 [facility] Dr. Liu Jackson M.D. [phone] POST OPERATIVE DISCHARGE INSTRUCTIONS KNEE ARTHROSCOPY 1. Follow-up in office seven to ten days after surgery. Call for appointment if not already made. ([phone]). 2. Take pain medication as ordered. 3. [...] WO CONTRAST Patria Quiñones CPNP [address] [place] [address] Status Reason Specialty Diagnoses / Procedures Referre d By Contact Referred To Contact Diagnoses Acute medial meniscus tear of left knee MEDIAL MENISCUS TEAR LEFT KNEE Procedures MS KNEE SCOPE,DIAGNOSTIC KNEE ARTHROSCOPY WITH PARTIAL MEDICAL MENISECTOMY Liu Jackson MD [address] [facility] [address] [place] [address] [facility] Reason Comments New Patient Reason Comments Schedule Surgery Reason Comments Med Refill (unrecognized sect ion and content) No Status Records FoundNo Status Records FoundNo Status Records FoundNo Status Records FoundNo Status Records FoundNo Status Records FoundNo Status Records FoundNo Status Records Found INFORMATION SOURCE (unrecogn ized section and content) DATE CREATED AUTHOR 05/06/[address] [facility] DATE CREATED AUTHOR AUTHOR'S ORGANIZ ATION 05/07/2020 [facility] DATE CREATED AUTHOR AUTHOR'S ORGANIZ ATION 12/26/2020 [facility] DATE CREATED AUTHOR AUTHOR'S ORGANIZ ATION 07/06/2021 [facility] DATE CREATED AUTHOR AUTHOR'S ORGANIZ ATION 10/26/2021 [facility] DATE CREATED AUTHOR AUTHOR'S ORGANIZ ATION 08/10/2022 [facility] DATE CREATED AUTHOR AUTHOR'S ORGANIZ ATION 08/24/2022 [facility] DATE CREATED AUTHOR AUTHOR'S ORGANIZ ATION 10/18/2022 [facility] Source Comments (unrecognize d section and content) In the event this informatio n is protected by the Federal Confidentiality of Alcohol and Drug Abuse Patient Records regulations: The Federal rules restrict any use of the information to criminally investigate or prosecute any alcohol or drug abuse patient.[facility] the event this information is protected by the Federal Confidentiality of Alcohol and Drug Abuse Patient Records regulations: The Federal rules restrict any use of the information to criminally investigate or prosecute any alcohol or drug abuse patient.[facility] Care Teams (unrecognized sec tion and content) Cleaning Porter Relationship Specialty Start Date End Date Colten Parra DO [address], [place] [address] PCP - General Family Medicine 04/03/22 Cleaning Porter Relationship Specialty Start Date End Date Colten Parra DO [address], [place] [address] PCP - General Family Medicine 04/03/22 FOR [...] BE BASED ON THE PRIMARY CLINICAL RECORDS. [facility], [facility]. provides no warranty or guarantee of the accuracy or completeness of information in this document.
[2023-04-23 08:47] VITALS: BP 158/91; PULSE 91; RESP 16; TEMP 36.2; O2SAT 96
[2023-04-23 09:43] VITALS: BP 188/94; PULSE 63; RESP 18; O2SAT 97
[2023-04-23 09:44] VITALS: BP 194/84; PULSE 68; RESP 18; O2SAT 97
[2023-04-23] MEDS: BUPIVACAINE HCL 0.25% PF 25 MG/10 ML VIAL 4 ML INJ (09:47)
[2023-04-23] MEDS: METHYLPREDNISOLONE ACETATE 80 MG/ML VIAL INJ (09:47)
[2023-04-23] MEDS: IOHEXOL 240 MG/ML - 10 ML VIAL 36 MG INJ (09:48)
--- NOTE | 2023-04-23 10:35 | P.ON_ITS ---
Date of procedure: 04/23/23 Pre-op diagnosis: Left hip osteoarthritis Post-op diagnosis: same as pre-op Procedure: Procedure: Left Hip joint injection Pre & postoperative diagnosis: pain secondary to osteoarthritis. Immediate complications none. Anesthesia: 2% lidocaine plain for skin wheal. After informed consent was obtained, patient brought to the OR placed in the supine position. Skin overlying the area was prepped and draped using betadine. 25-gauge 1/2 inch needle was used for skin wheal over the medial aspect of the joint identified under fluoroscopy. Omnipaque dye was used to confirm needle tip placement within the hip joint space 0.5 mL use of the injection. Subse quently Depomedrol 80mg and Marcaine 0.25% 4ml was injected into the space. No indication of intravascular or intraneuronal needle tip placement or injection was noted post procedure. The needle was removed, patient transferred to Recovery room in stable condition to discharged home after meeting criteria. Anesthesia: Local Surgeon: Elma Whalen Condition: stable
== END 2023-04-23 09:50 | disposition home or self-care (01) ==
LOC: SURGOUT 08:15
PROVIDERS: PCP Nurse Practitioner Family; Visit Provider Anesthesiology Pain Medicine
DX: M16.12 Unilateral primary osteoarthritis, left hip (principal)
CPT/HCPCS: 20610; 77002; J0665; J1040; Q9966

== ENCOUNTER 2023-05-01 12:25 | Outpatient (OUT) | payer BC, SELFPAY ==
--- NOTE | 2023-05-01 13:05 | P.CN_ITS ---
Consult Note: HPI Data of Consult Patient: known to practice within the last 3 years Consult date: 09/27/22 Requesting Physician: Priscilla Elkins NP Primary Care Provider: HUNTER ROBINS Consult Narrative Reason for consult: f/u Narrative: Patient is here for f/u of chronic low back and left hip pain. Pain is in the left hip and low back No new sensorimotor sx or bowel or bladder issues. No adverse medication SE. Medications assist patient with better ability to perform ADLs. He has seen orthopedics for his knee and they advised he would need total hip done left. He wants to get surgery done. Currently working with [employer] and [id number] to get his hip surgery covered. Today rating pain 2/10 in left hip and low back, pain in low back increases to 8/10 with standing and activity, decreases with sitting. Patient reporting >80% improvement in left hip pain. Patient would like to discuss repeating lumbar RFAs as patient previously had >75% pain relief and functional improvement greater than 1 year but has since worn off. cc:: CC: Priscilla Elkins NP Review of Systems ROS Status of ROS 10 or more systems reviewed and unremark able except as noted in history and below Musculoskeletal Reports: back pain and joint pain Meds Home Medications and Allergies Home Medications Medication Instructions Recorded Confirmed Type aspirin 81 mg capsule 81 mg PO DAILY 08/14/22 04/23/23 History atorvastatin 80 mg tablet 80 mg PO BEDTIME 08/14/22 04/23/23 History baclofen 10 mg tablet 10 mg PO TID PRN muscle spasm 08/14/22 04/23/23 History divalproex 125 mg tablet,delayed 125 mg PO TID 08/14/22 04/23/23 History release hydrocodone 5 mg-acetaminophen 325 1 tab PO BID PRN pain 08/14/22 04/23/23 History mg tablet lisinopril 20 1 tab PO DAILY 08/14/22 04/23/23 History mg-hydrochlorothiazide 12.5 mg tablet metoprolol tartrate 25 mg tablet 25 mg PO BID 08/14/22 04/23/23 History hydrocodone 5 mg-acetaminophen 325 1 tab PO BID PRN pain #60 tabs 10/17/22 04/23/23 Rx mg tablet hydrocodone 5 mg-acetaminophen 325 1 tab PO BID PRN pain #60 tabs 11/15/22 04/23/23 Rx mg tablet hydrocodone 5 mg-acetaminophen 325 1 tab PO BID PRN pain #60 tabs 11/15/22 04/23/23 Rx mg tablet hydrocodone 5 mg-acetaminophen 325 1 tab PO BID PRN pain #60 tabs 12/19/22 04/23/23 Rx mg tablet lidocaine 5 % topical patch 1 patch topical DAILY #30 ea 12/27/22 04/23/23 Rx hydrocodone 5 mg-acetaminophen 325 1 tab PO BID PRN pain #60 tabs 01/16/23 04/23/23 Rx mg tablet hydrocodone 5 mg-acetaminophen 325 1 tab PO BID PRN pain #60 tabs 02/18/23 04/23/23 Rx mg tablet hydrocodone 5 mg-acetaminophen 325 1 tab PO BID PRN pain #60 tabs 03/20/23 04/23/23 Rx mg tablet hydrocodone 5 mg-acetaminophen 325 1 tab PO BID PRN pain #60 tabs 04/15/23 04/23/23 Rx mg tablet Allergies Allergy/AdvReac Type Severity Reaction Status Date / Time No Known Drug Allergies Allergy Verified 04/23/23 08:53 Exam Constitutional Documenting provider has reviewed patient's vital signs: yes Common normals: no apparent distress, oriented x3, healthy appearing, alert and well nourished General appearance: cooperative Orientation/consciousness: Yes awake, Yes oriented to person, Yes oriented to place and Yes oriented to time [place] Common normals: normocephalic, hearing grossly normal bilaterally and moist oral mucous membranes Head and scalp: normocephalic Eye Common normals: PERRL Pupil: PERRL Neck & C-Spine Common normals: full ROM General: normal visual inspection Chest Common normals: inspection of chest normal Respiratory Common normals: normal respiratory effort, no retractions and no use of accessory muscles Effort & inspection: able to speak in complete sentences and symmetric chest movement Back & Pelvis Lumbar spine/lower back: ROM limited, pain with ROM and straight leg raise negative bilaterally Extremity Common normals: normal capillary refill and no pedal edema Other: negative internal and external rotation of left hip muscle strength 4/5 bilat LE with intact sensation Neuro Common normals: oriented x3, CN's II-XII intact bilaterally, moves all extremities, no focal motor deficits, no sensory deficits noted and deep tendon reflexes 2+ bilaterally Sensorium/orientation: alert Gait (neuro): antalgic Motor exam: no movement abnormalities noted and strength abnormal Psych Common normals: mental status grossly normal, thought process normal, cooperative, affect normal, speech normal and activity/motor behavior normal Speech: normal speech Thought process: normal thought process Results Additional Findings Additional findings: I have checked an [place] report on this patient today and there are no aberrancies noted in the prescribing history.?? A drug screen was completed and reviewed within the last year, and if there has not been a drug screen completed we ordered one today to monitor higher risk, state monitored pain medication use. As part of providing excellent, safe, comprehensive care, the following was completed at our patient's visit: 1. A medication reconciliation and review to ensure accurate knowledge of current/active medications, including asking our patients to inform us about any [id number] medications or herbal remedies/nutritional supplements/alternative remedies. 2. A review to specifically ensure our patients have had annual screening for: elevated body mass index (BMI), tobacco use, screening for depression, and screening for unhealthy alcohol use. When screening is concerning, patients are provided with education and the specific recommendation to discuss the concerning health issue and treatment options with their primary care provider. Assessment and Plan Assessment and Plan (1) Lumbar spondylosis: (2) Chronic prescription opiate use: Assessment and Plan: I have refilled the patient's opioid prescriptions at the above noted dose and schedule.? I feel these medications are improving the patient's quality of life and allow them to tolerate activities of daily living as well as participate in recreational activity.? The patient does not report intolerable side effects. The patient is NOT opioid naive and non-pharmacologic and non-opioid treatment has failed to significantly relieve the patient's pain and improve functionality. The patient has a diagnosis that is related to a somatic or visceral pain etiology. ? ?? I reviewed with the patient the potential risks and side effects with the use of? opioid medications including but not limited to respiratory depression,? sedation, and even . I verified the patient has access to naloxone should? these effects occur. I advised the patient to avoid the use of any other? sedation substances including alcohol, THC, and benzodiazepines while? taking opioid medications due to the risk of compounding side effects and? detrimental outcomes. I reviewed the [employer], pain treatment agreement, urine? drug screen, and opioid start talking forms. The patient was advised to let? their family know they had Naloxone in case they would need to administer? the medication.? ?? A drug screen was completed within the last year, and no aberrancies were noted regarding their use of controlled substances. The patient understands they are subject to the terms and conditions of the pain contract that they have signed. ? ?? I have checked an [place] report on this patient today and there are no aberrancies noted in the prescribing history.? (3) Labral tear of left hip joint: (4) Osteoarthritis, hip, bilateral: Plan repeat bilateral L4-5 L5-S1 thermal RFA with 10mg PO valium with Dr Palm, previous lumbar RFA provided >75% improvement greater than 12 months but moderate to severe low back pain has returned continue norco 5-325 to 1-1.5 tabs BID PRN moderate to severe pain, 80 tabs/month, okay to fill early. narcan previously discussed and prescribed f/u 1 month after RFA
== END 2023-05-01 12:26 | disposition home or self-care (01) ==
LOC: PM 12:25
PROVIDERS: PCP Nurse Practitioner Family; Visit Provider Nurse Practitioner
DX: M47.816 Spondylosis without myelopathy or radiculopathy, lumbar region (principal); Z79.891 Long term (current) use of opiate analgesic; S73.191A Other sprain of right hip, initial encounter; S73.192A Other sprain of left hip, initial encounter; M16.0 Bilateral primary osteoarthritis of hip
CPT/HCPCS: G0463

== ENCOUNTER 2023-06-17 07:34 | Day surgery (SDC) | payer BC, SELFPAY ==
--- OUTSIDE RECORDS SUMMARY | 2023-06-17 07:38 | XMS_ITS | CCD ---
Author Organization [facility] Care Team Providers Care Residential Care Officer Name Role Phone Brenda Maxwellvajeansad Paulina Primary Care Provider KASH GRIER Referring Unavailabl e GURJIT, SHIVAPRASAD K Primary Care Unavailabl e GURJIT, SHIVAPRASAD K Referring Unavailabl e KASH GRIER Primary Care Unavailabl e GURJIT, SHIVAPRASAD K Referring Unavailabl e KATHY GRIERNA Dixie Primary Care Unavailabl e GURJIT, SHIVAPRASAD K Primary Care Unavailabl e LIU JACKSON Referring Unavailable ANAYA HORTON Referring Unavailable GURJIT, SHIVAPRASAD K Primary Care Unavailabl e NARRA, FLACO Referring Unavailable KASH GRIER Primary Care Unavailabl e GURJIT, SHIVAPRASAD K Referring Unavailabl e KATHY GRIERNA Dixie Primary Care Unavailabl e LIU JACKSON Admitting Unavailable LIU JACKSON Attending Unavailable GURJIT, SHIVAPRASAD K Primary Care Unavailabl e NARRA, FLACO Referring Unavailable KASH GRIER Primary Care Unavailabl e GURJIT, SHIVAPRASAD K Primary Care Unavailabl e KATHY GRIERNA Dix[place] Referring Unavailabl e GURJIT, SHIVAPRASAD K Primary Care Unavailabl e KASH GRIER Referring Unavailabl e GURJIT, SHIVAPRASAD K Primary Care Unavailabl e PATRIA QUIÑONES Referring Unavailable Kash Grier Primary Care Provider Colten Gordon Unavailable Unavailable Unavailable Unavailable Primary Care Provider Emeli Luna DR COMPA S Attending Unavailable AWAD ., DR COMPA Vo Admitting [facility]available AWAD ., DR COMPA Vo Consulting Unavailable SHARP, TRISTA Consulting Unavailable LAKSHMIPATHY ., NARENDRANATH Attending Nora vailable LAKSHMIPATHY ., NARENDRANATH Admitting Nora vailable JULIENNE, [facility] Primary Care Unavailable LAKSHMIPATHY ., NARENDRANATH Consulting Nora vailable HALKER ., AD Attending Unavailable JULIENNE, [facility] Primary Care Unavailable LAKSHMIPATHY ., NARENDRANATH Consulting Nora vailable HALKER ., AD Admitting Unavailable AWAD ., DR COMPA Vo Attending Unavailable AWAD ., DR COMPA Vo Admitting Unavailable [facility] Primary Care Unavailable MALDONADO ., MYRIAM Consulting Unavailable AWAD ., DR COMPA Vo Attending Unavailable AWAD ., DR COMPA Vo Admitting Unavailable [facility] Primary Care Unavailable AWAD ., DR COMPA Vo Consulting Unavailable SHARP, TRISTA Consulting Unavailable AWAD ., DR COMPA Vo Attending Unavailable AWAD ., DR COMPA Vo Admitting Unavailable [facility] Primary Care Unavailable MALDONADO ., MYRIAM Consulting Unavailable AWAD ., DR COMPA Vo Attending Unavailable AWAD ., DR COMPA Vo Admitting Unavailable [facility] Primary Care Unavailable AWAD ., DR COMPA Vo Consulting Unavailable AWAD ., DR COMPA Vo Attending Unavailable AWAD ., DR COMPA Vo Admitting Unavailable [facility] Primary Care Unavailable AWAD ., DR COMPA Vo Consulting Unavailable [facility] Primary Care Unavailable ROBERTO ., DANITZA Attending Unavailable ROBERTO ., DANITZA Admitting Unavailable LORENZO .JANA Consulting Unavailindira MACEDO, TANNER Consulting Unavailable [facility] Primary Care Unavailable OSBORNE ., MR ROZ Consulting Unavailable OSBORNE ., MR ROZ Attending Unavailable OSBORNE ., MR ROZ Admitting Unavailable EDSON PEACOCK Consulting Unavailable AWAD ., DR COMPA Vo Admitting Unavailable AWAD ., DR COMPA Vo Consulting Unavailable [facility] Primary Care Unavailable AWAD ., DR COMPA Vo Attending Unavailable LAKSHMIPATHY ., NARENDRANATH Attending Nora vailable LAKSHMIPATHY ., NARENDRANATH Admitting Nora vailable JULIENNE, [facility] Primary Care Unavailable WEST, DR VASILE Gentile Consulting Unavailable ERNESTO, DR MICHAEL Braun Consulting Unavailable LAKSHMIPATHHenrik ., AGUSTO Consulting Nora tom AWAD ., DR COMPA Vo Attending Unavailable DELMI ., DR COMPA Vo Admitting Unavailable HUNTER ROBINS Primary Care Unavailable JOEL .MYRIAM Consulting Unavailable WINIFRED BORGES Attending Unavailable Antonio Bird MD Primary Care Unavailable Armin GARCIA, Edson Bocanegra Attending UnavailColten Muñoz DO Primary Care Provider HUNTER ROBINS Referring Unavailable COLTEN GORDON Primary Care Unavailable Medications Current Medications Medication Drug Class(es) Dates Sig (Normalized) Sig (Original) acetaminophen 325 mg / HYDROcodone bitartrate 5 mg oral tablet (6 sources) Opioid Agonist Start: 03-15-2022 take 1 [...] pain 30 tablet 0 11/10/2019 11/15/2019 Active Thurmond 5-325 MG T ABS TAKE 1 TABLET EVERY 12 HOURS NEEDED. Quantity: 0 Refills: 0 Ordered: 26-Nov-2022 DO Active atorvastatin 80 mg oral tablet (15 sources) HMG-CoA Reductase Inhibitor Start: 02-11-2023 take [...] once daily. baclofen 10 mg oral tablet (4 sources) gamma-Aminobutyric Acid-ergic Agonist Start: 09-14-2022 take 1 tablet by mouth three times daily baclofen (LIORESAL) 10 mg tablet Take 1 tablet (10 mg total) by mouth 3 (three) times a day. 0 09/14/2022 Active take 3 tablets by mo [facility] once daily as needed for muscle [...] Active Start: 10-06-2019 take 1 tablet by [facility] twice daily as needed for muscle spasms cyclobenzaprine (FLEXERIL) 10 MG tablet Take 1 tablet by mouth 2 times daily as needed for Muscle spasms 30 tablet 0 10/06/2019 Active Start: 09-16-2019 take 1 tablet by [facility] twice daily as needed for muscle spasms [...] mg docusate sodium 50 mg / sennosides, fdc 8.6 mg oral tablet (3 sources) Start: 03-26-2022 take 2 tablets by [...] (1 source) beta-Adrenergic Sam Start: 11-10-2019 labetalol (NORMODYNE;TRANDAT E) injection 5 mg magnesium gluconate 550 mg [...] mg metoprolol tartrate 25 mg oral tablet (14 sources) beta-Adrenergic Sam Start: 11-29-2020 End: 04-01-2023 take 1 tablet by mouth at bedtime metoprolol tartrate (LOPRESSOR) 25 mg tablet TAKE 1 TABLET (25 MG) BY MOUTH IN THE MORNING AND AT BEDTIME 180 tablet 1 04/01/2023 Active 1 ml morphine sulfate 2 mg/ml cartridge (1 source) Opioid Agonist Start: 11-10-2019 morphine (PF) injection 2 mg 24 hr nicotine 0.875 mg/hr transdermal system (5 sources) Cholinergic Nicotinic Agonist Start: 03-27-2022 apply [...] Start: 05-06-2019 take 1 capsule by mo [facility] once daily tamsulosin (FLOMAX) 0.4 MG capsule TAKE 1 CAPSULE BY MOUTH EVERY DAY 90 capsule 1 05/06/2019 Active Start: 10-09-2018 take 1 capsule by mo [facility] once daily tamsulosin (FLOMAX) 0.4 MG capsule TAKE 1 CAPSULE BY MOUTH EVERY DAY 0 10/09/2018 Active divalproex sodium 125 mg delayed release oral tablet (20 sources) Mood Stabilizer, Anti-epileptic Agent Start: 02-28-2021 End: 04-01-2023 take 1 tablet by mouth once daily divalproex (DEPAKOTE) 125 mg EC tablet Indications: Migraine, unspecified, not intractable, without status migrainosus TAKE 1 TABLET BY MOUTH EVERY DAY 90 tablet 0 04/01/2023 Active Start: 04-06-2020 take 1 tablet by [...] Take 125 mg by mouth once daily. Completed/Discontinued Medications Medication Drug Class(es) Dates Sig [...] on above: Take 1 tablet by francesco twice daily as needed. [id number] actuat albuterol 0.09 mg/actuat metered dose [...] Active Comment on above: Take by mouth. methylPREDNISolone 4 mg oral tablet (3 sources) Corticosteroid Start : 12-17 End: 05-01 take 1 tablet by mouth in the morning methylPREDNISolone (MEDROL, MAEGAN,) 4 mg tablet Indications: Upper respiratory disease Take 1 tablet (4 mg total) by mouth in the morning. follow package directions. 21 tablet 0 12/17/2022 05/01/2023 Discontinued (Therapy completed) nitroglycerin 0.4 mg sublingual tablet (15 sources) Nitrate Vasodilator Start : 02-20 nitroglycerin sublingual (NITROQUICK) 0.4 mg SL tablet [...] Start: 10-28-2018 take 1 capsule by mo [facility] once daily propranolol (INDERAL [...] 0 Refills: 0 Ordered: 19-Oct-2021 DO Active Problems Active Problems Problem Classification Problem Date Documented Date Episodic/Chronic Acute myocardial infarction (6 sources) Myocardial infarction; Translations: [Acute myocardial infarction of other inferior wall, episode of care unspecified] Chronic Adjustment disorders (3 sources) Reactive depression (situational); Translations: [Adjustment disorder with depressed mood] Onset: 12-14-2022 12-14-2022 Chronic Coronary atherosclerosis and other heart disease (20 sources) Coronary atherosclerosis; Translations: [Coronary atherosclerosis of unspecified type of vessel, sioux or graft] Onset: 04-02-2023 05-01-2023 Chronic Coronary atherosclerosis and other heart disease (2 sources) Stented coronary artery; Translations: [Percutaneous transluminal coronary angioplasty status] Episodic Diseases of white blood cells (3 sources) Band neutrophil count above reference range; Translations: [Bandemia] Onset: 06-21-2022 06-21-2022 Chronic Disorders of lipid metabolism (11 sources) Hyperlipidemia; Translations: [Other and unspecified hyperlipidemia] Onset: 04-02-2023 05-01-2023 Chronic Essential hypertension (17 sources) Essential hypertension; Translations: [Hypertensive disorder] Onset: [...] not intractable, without status migrainosus] 04-01-2023 Chronic Hyperplasia of prostate (1 source) Large prostate ; Translations: [Benign prostatic hyperplasia without lower urinary tract symptoms] 05-01-2023 Chronic Nonspecific chest pain (2 sources) Chest [...] IN RIGHT HIP] Onset: 07-31-2022 Episodic Other non-traumatic joint disorders (4 sources) Hip pain; Translations: [Pain in left hip] Onset: 12-14-2022 12-14-2022 Episodic Other nutritional; endocrine; and metabolic disorders (11 sources) Obesity; Translations: [Obesity, unspecified] Chronic Other skin disorders (1 source) Disorder of skin of lower limb; Translations: [Disorder of the skin and subcutaneous tissue, unspecified] 05-01-2023 Episodic Spondylosis; intervertebral disc disorders; other back [...] CELE FX] Onset: 01-19-2022 Episodic Mood disorders (3 sources) Mood disorders Onset: 12-14-2022 Resolved: 05-01-2023 12-14-2022 Other aftercare (1 source) equipment [employer] (current) use of aspirin; Translations: [CORRECTION CURRENT USE OF ASPIRIN] Onset: 05-07-2022 Episodic Other aftercare (1 source) Other [employer] (current) drug therapy; Translations: [OTH CORRECTION CURRENT DRUG THERAPY] Onset: 05-07-2022 Episodic Other and unspecified benign neoplasm (3 sources) Polyp of transverse colon; Translations: [Polyp of colon] Onset: 12-07-2022 12-07-2022 Episodic Other connective tissue disease (5 sources) Other specified soft tissue disorders; Translations: [OTHER SPEC SOFT TISSUE DISORDERS] Onset: 12-28-2021 Episodic Other connective tissue disease (3 sources) Pain in right lower limb; Translations: [Pain in right leg] Onset: 03-24-2022 03-24-2022 Episodic Other gastrointestinal disorders (3 sources) Stool DNA-based colorectal cancer screening positive; [...] Onset: 05-03-2022 Episodic Other upper respiratory infections (11 sources) Acute upper respiratory infection; Translations: [Acute upper respiratory infection, unspecified] Onset: 03-17-2018 10-06-2019 Episodic Phlebitis; thrombophlebitis and thromboembolism (5 sources) Personal history of other venous thrombosis and embolism; Translations: [Acute deep venous thrombosis of calf] Onset: 05-08-2022 Episodic Skin and subcutaneous tissue infections (3 sources) Cellulitis of right lower limb; Translations: [Cellulitis of right lower limb] Onset: 03-24-2022 03-24-2022 Episodic Spondylosis; intervertebral disc disorders; other back problems (6 sources) Spinal stenosis in cervical region; Translations: [Spinal stenosis, cervical region] Onset: 01-02-2022 Episodic Unclassified (1 source) LOW BACK PAIN, UNSPECIFIED; Translations: [LOW BACK PAIN, UNSPECIFIED] Onset: 06-14-2022 Results Test Name Value Interpretation Reference Range Facility COMPREHENSIVE METABOLIC PANE Feng 05-01-2023 Albumin [Mass/Vol] 4.1 g/dL Normal 3.2-5.3 [facility] Comment on above: Performed By: #### C DAGOBERTO, 65601-7 #### [facility] ([id number]) [address], [address] [place] [address] ALP [Catalytic activity/Vol] 75 U/L Normal 39-130 [facility] Comment on above: Performed By: #### C DAGOBERTO, 79081-1 #### [facility] ([id number]) [address], [address] [place] [address] ALT [Catalytic activity/Vol] 21 U/L Normal 0-40 [facility] Comment on above: Performed By: #### Haley RAENAS, 82451-4 #### [facility] ([id number]) [address], [address] [place] [address] Anion gap [Moles/Vol] 6 mmol/L Normal 5-15 [facility] Comment on above: Performed By: #### Haley ARENAS, 18935-3 #### [facility] ([id number]) [address] [place] [address] AST [Catalytic activity/Vol] 13 U/L Normal 0-41 [facility] Comment on above: Performed By: #### Haley ARENAS, 44722-2 #### [facility] ([id number]) [address], [address] [place] [address] Bilirubin [Mass/Vol] 0.4 mg/dL Normal 0.3-1.2 [facility] Comment on above: Performed By: #### Haley ARENAS, 15623-9 #### [facility] ([id number]) [address], [address] [place] [address] Calcium [Mass/Vol] 9.5 mg/dL Normal 8.5-10.5 [facility] Comment on above: Performed By: #### Haley ARENAS, 61015-2 #### [facility] ([id number]) [address], [address] [place] [address] Chloride [Moles/Vol] 106 mmol/L Normal 98-109 [facility] Comment on above: Performed By: #### Haley ARENAS, 70707-4 #### [facility] ([id number]) [address], [address] [place] [address] CO2 [Moles/Vol] 30 mmol/L Normal 22-32 [facility] Comment on above: Performed By: #### Haley ARENAS, 65744-9 #### [facility] ([id number]) [address], [address] [place] [address] Creatinine [Mass/Vol] 0.96 mg/dL Normal 0.60-1.30 [facility] Comment on above: Result Comment: METH OD TRACEABLE TO IDMS STANDARD Performed By: #### Haley ARENAS, 02268-2 #### [facility] ([id number]) [address], [facility] [address] [place] [address] eGFR (CKD-EPI) NON-RACE DEPENDENT >90 Normal >59 [facility] Comment on above: Result Comment: Reported eGFR is based on the CKD-EPI 2020 equation that does not use a race coefficient. Performed By: #### Haley ARENAS, 26599-0 #### [facility] ([id number]) [address], [address] [place] [address] Glucose [Mass/Vol] 95 mg/dL Normal 65-99 [facility] Comment on above: Performed By: #### Haley ARENAS, 34159-0 #### [facility] ([id number]) [address], [address] [place] [address] Potassium [Moles/Vol] 4.6 mmol/L Normal 3.5-5.0 [facility] Comment on above: Performed By: #### Haley ARENAS, 16112-6 #### [facility] ([id number]) [address] [place] [address] Protein [Mass/Vol] 7.0 g/dL Normal 6.0-8.0 [facility] Comment on above: Performed By: #### Haley ARENAS, 30068-3 #### [facility] ([id number]) [address] [place] [address] Sodium [Moles/Vol] 142 mmol/L Normal 134-146 [facility] Comment on above: Performed By: #### C DAGOBERTO, 51637-1 #### [facility] ([id number]) [address], [address] [place] [address] Urea nitrogen [Mass/Vol] 20 mg/dL Normal 5-23 [facility] Comment on above: Performed By: #### C DAGOBERTO, 79549-2 #### [facility] ([id number]) [address], [address] [place] [address] Comprehensive metabolic pane feng 05-01-2023 Albumin [Mass/Vol] 4.1 g/dL 3.2 - 5.3 g/dL [facility] ALP [Catalytic activity/Vol] 75 U/L 39 - 130 U/L [facility] ALT No additional P-5'-P [Catalytic activity/Vol] 21 U/L 0 - 40 U/L [facility] Anion gap [Moles/Vol] 6 mmol/L 5 - 15 mmol/L [facility] AST [Catalytic activity/Vol] 13 U/L 0 - 41 U/L [facility] Bilirubin [Mass/Vol] 0.4 mg/dL 0.3 - 1 .2 mg/dL [facility] Calcium [Mass/Vol] 9.5 mg/dL 8.5 - 10. 5 mg/dL [facility] Chloride [Moles/Vol] 106 mmol/L 98 - 10 9 mmol/L [facility] CO2 [Moles/Vol] 30 mmol/L 22 - 32 mmol/L [facility] Creatinine [Mass/Vol] 0.96 mg/dL 0.60 - 1.30 mg/dL [facility] Comment on above: METHOD TRACEABLE TO IDAR STANDARD eGFR (CKD-EPI)non-race dependent - PINF [facility] Comment on above: Reported eGFR is based on the CKD-EPI 2020 equation that does not use a race coefficient. Glucose [Mass/Vol] 95 mg/dL 65 - 99 mg/dL [facility] Potassium [Moles/Vol] 4.6 mmol/L 3.5 - 5.0 mmol/L [facility] Protein [Mass/Vol] 7.0 g/dL 6.0 - 8.0 g/dL [facility] Sodium [Moles/Vol] 142 mmol/L 134 - 146 mmol/L [facility] Urea nitrogen [Mass/Vol] 20 mg/dL 5 - 23 mg/dL [facility] Lipid 1996 panelon 4 Cholesterol [Mass/Vol] 97 mg/dL Low 150 - 200 mg/dL [facility] Cholesterol in HDL [Mass/Vol] 40 mg/dL 39 - PINF mg/dL [facility] Comment on above: HDL <40 mg/dL - High Risk HDL > or = 40mg/dL- Desirable HDL >60 mg/dL - Negative Risk Cholesterol in LDL [Mass/Vol] 41 mg/dL NINF - 130 mg/dL [facility] Comment on above: LDL <100 mg/dL - Desirable LDL >160 mg/dL - High Risk Cholesterol in VLDL [Mass/Vol] 16 mg/dL 0 - 30 mg/dL [facility] Cholesterol.total/Ch olesterol in HDL [Mass ratio] 2.4 {ratio} 1.0 - 5.0 [facility] Interpretation and review of laboratory results Abnormal [facility] Triglyceride [Mass/Vol] 80 mg/dL 27 - 150 mg/dL [facility] Cholesterol [Mass/Vol] 97 mg/dL Low 150-200 [facility] Comment on above: Performed By: #### C , 10972-8 #### [facility] ([id number]) [address], [address] [place] [address] Cholesterol in HDL [Mass/Vol] 40 mg/dL Normal >39 [facility] Comment on above: Result Comment: HDL <40 mg/dL - High Risk HDL > or = 40mg/dL- Desirable HDL >60 mg/dL - Negative Risk Performed By: #### C DAGOBERTO, 70346-8 #### [facility] ([id number]) [address], [address] [place] [address] Cholesterol in LDL [Mass/Vol] 41 mg/dL Normal <130 [facility] Comment on above: Result Comment: LDL <100 mg/dL - Desirable LDL >160 mg/dL - High Risk Performed By: #### C DAGOBERTO, 23781-2 #### [facility] ([id number]) [address], [address] [place] [address] Cholesterol in VLDL [Mass/Vol] 16 mg/dL Normal 0-30 [facility] Comment on above: Performed By: #### C DAGOBERTO, 06670-2 #### [facility] ([id number]) [address], [address] [place] [address] CHOLESTEROL:HDL 2.4 Normal 1.0-5.0 [facility] Comment on above: Performed By: #### Haley ARENAS, 01188-2 #### [facility] ([id number]) [address] [address] Triglyceride [Mass/Vol] 80 mg/dL Normal 27-150 [facility] Comment on above: Performed By: #### C DAGOBERTO, 92338-0 #### [facility] ([id number]) [address], [address] [place] [address] No Panel Informationon 05-01 [facility] Tobacco Screening.on 023 Adult depression screening assessment [facility] y 250 DO Work Phone: Fall risk assessment b) One or more fall s in the last year [facility] Shane y 250 DO Work Phone: Tobacco use status CP a) Yes [facility] Shane y 250 DO Work Phone: Tobacco Screening. Yes [facility] HeartRadha y 250 DO Work Phone: 36on 08-23-2022 36 Left vm to reschedul e us and follow up from 08/17/22 Normal [facility] Telephoneon 08-23-2022 Telephone [phone] Fidencio Doss as 1965 M Date Provider Department Center 08/23/2022 Lani-PATRIA BRANCH GLV [facility] No family history on file Normal [facility] XR LSPINE 2_3 VIEWSon 2022 XR [...] by: MICHAEL OROZCO Date: 2022-08-01 08:25 Normal [facility] XR HIPS LUPILLO 3_4V WO PELVISon 07-31-2022 [...] by: VASILE VITALE Date: 2022-07-31 14:23 Normal [facility] .BF Diffon 07-23-2022 Body Fld Path Interpretation Normal [facility] Comment on above: Result Comment: Syno vial fluid shows chronic inflammatory cells and synovial cells. Authenticated by: Dr. Luci Leyva Date/Time: Performed By: #### . Body Fluid Differential #### [place] [address] C ANAon 07-23-2022 C NELL --- Final No anaerobic growth after 72 hrs. Normal [facility] Comment on above: Performed By: #### A NAC #### [place] [address] .BF Cell Cnt RBC Aon 023 Fluid RBC Count 3983 /mcL Normal [facility] Comment on above: Performed By: #### . Body Fluid Cell Count RBC Auto #### [place] [address] .BF Cell Cnt WBC Aon 023 Fluid WBC Count 257 /mcL High 0-150 [facility] Comment on above: Performed By: #### . Body Fluid Cell Count WBC Auto #### [place] [address] .BF Diffon 07-21-2022 Fluid Mononuclear Cells 83 % High 0-78 [facility] Comment on above: Performed By: #### . Body Fluid Differential #### [place] [address] Fluid Other Cells 2 % Normal 0-10 [facility] Comment on above: Performed By: #### . Body Fluid Differential #### [place] [id number] Fluid Polynuclear Cells 15 % Normal 0-25 [facility] Comment on above: Performed By: #### . Body Fluid Differential #### [place] [id number] BF Cell Counton 07-21-2022 Body Fluid Cell Cnt Type Synovial Normal [facility] Comment on above: Performed By: #### F LCC #### [place] [address] C Sterile BFon 07-20-2022 C Sterile BF GRAM STAIN Final No growth at 48 hours. Gram Stain Moderate White Blood Cells No organisms seen. Normal [facility] Comment on above: Performed By: #### C SBF #### [facility] (DEFAULT) [address] [place] [address] Office Visiton 05-08-2022 Follow-up visit [id number] Fidencio Doss as 1965 M Date Provider Department Center 05/08/2022 WINIFRED HOWELL [facility] No family history on file Level of Service:16938 MO OFFICE/OUTPATIENT NEW LOW MDM 30-44 MINUTES Reason for Visit and Comments: New Patient [632] Normal [facility] BNPon 05-03-2022 Natriuretic peptide B (Bld) [Mass/Vol] 41.0 pg/mL Normal <=900.0 [facility] Comment on above: Performed By: #### H STROPN, LIPA, BNP, CMP ####[facility] [id number] [place] [id number]. Jazzy Powell CBC AUTO DIFFon 05-03-2022 BASO # 0.1 103/ul Normal 0.0-0.1 [facility] Comment on above: Performed By: #### C BC #### [facility] [address] [address] [address] Jazzy Powell Basophils/100 WBC (Bld) 0.5 % Normal 0.2-2.0 [facility] Comment on above: Performed By: #### C BC #### [facility] [address] [place] [address] Dr. Jazzy Powell EO # 0.3 103/ul Normal 0.0-0.7 [facility] Comment on above: Performed By: #### C BC #### [facility] [address] [place] [address] Dr. Jazzy Powell Eosinophils/100 WBC (Bld) 1.8 % Normal 0.9-7.0 [facility] Comment on above: Performed By: #### C BC #### [facility] [address] [place] [address] Dr. Jazzy Powell Erythrocyte distribution width (RBC) [Ratio] 13.1 % Normal 11.0-15.0 [facility] Comment on above: Performed By: #### C BC #### [facility] [address] [place] [address] Dr. Jazzy Powell Hematocrit (Bld) [Volume fraction] 40.7 % Critically low 42.0-54.0 [facility] Comment on above: Performed By: #### C BC #### [facility] [address] [place] [address] Dr. Jazzy Powell Hemoglobin (Bld) [Mass/Vol] 13.7 g/dL Critically low 14.0-18.0 [facility] Comment on above: Performed By: #### C BC #### [facility] [address] [place] [address] Dr. Jazzy Powell IG # 0.09 10e3/ul Critically high 0.00-0.03 [facility] Comment on above: Performed By: #### C BC #### [facility] [address] [place] [address] Dr. Jazzy Powell IG % 0.5 % Normal 0.0-0.5 [facility] Comment on above: Performed By: #### C BC #### [facility] [address] [place] [address] Dr. Jazzy Powell LYMPH # 4.7 103/ul Critically high 1.2-3.8 [facility] Comment on above: Performed By: #### C BC #### [facility] [address] [place] [address] Dr. Jazzy Powell Lymphocytes/100 WBC (Bld) 24.5 % Normal 20.5-60.0 [facility] Comment on above: Performed By: #### C BC #### [facility] [address] [place] [address] Dr. Jazzy Powell MANUAL DIFF REQ NO Normal [facility] Comment on above: Performed By: #### C BC #### [facility] [address] [place] [address] Dr. Jazzy Powell MCH (RBC) [Entitic mass] 30.8 pg Normal 25.9-34.0 [facility] Comment on above: Performed By: #### C BC #### [facility] [address] [place] [address] Dr. Jazzy Powell MCHC (RBC) [Mass/Vol] 33.7 g/dL Normal 29.9-35.2 [facility] Comment on above: Performed By: #### C BC #### [facility] [address] [place] [address] Dr. Jazzy Powell MCV (RBC) [Entitic vol] 91.5 fL Normal 80.0-94.0 [facility] Comment on above: Performed By: #### C BC #### [facility] [address] [place] [address] Dr. Jazzy Powell MONO # 2.5 103/ul Critically high 0.3-0.8 [facility] Comment on above: Performed By: #### C BC #### [facility] [address] [place] [address] Dr. Jazzy Powell Monocytes/100 WBC (Bld) 12.8 % Critically high 1.7-12.0 [facility] Comment on above: Performed By: #### C BC #### [facility] [address] [place] [address] Dr. Jazzy Powell NEUT # 11.6 103/ul Critically high 1.4-6.5 [facility] Comment on above: Performed By: #### C BC #### [facility] [address] [place] [address] Dr. Jazzy Powell Neutrophils/100 WBC (Bld) 59.9 % Normal 43.0-75.0 [facility] Comment on above: Performed By: #### C BC #### [facility] [address] [place] [address] Dr. Jazzy Powell Platelet mean volume (Bld) [Entitic vol] 8.4 fL Critically low 9.5-13.5 [facility] Comment on above: Performed By: #### C BC #### [facility] [address] [place] [address] Dr. Jazzy Powell PLT 332 103/ul Normal 150-450 [facility] Comment on above: Performed By: #### C BC #### [facility] [address] [place] [address] Dr. Jazzy Powell RBC 4.45 106/ul Critically low 4.70-6.10 [facility] Comment on above: Performed By: #### C BC #### [facility] [address] [place] [address] Dr. Jazzy Powell WBC 19.3 103/ul Critically high 4.0-11.0 [facility] Comment on above: Performed By: #### C BC #### [facility] [address] [place] [address] Dr. Jazzy Powell CTA CHEST WO W [...] by: TANNER MACEDO Date: 2022-05-03 20:24 Normal [facility] LIPASEon 05-03-2022 Lipase [Catalytic activity/Vol] 126.0 U/L Normal 73.0-393.0 [facility] Comment on above: Performed By: #### H STROPN, LIPA, BNP, CMP ####[facility] [address] [place] [address]Dr. Jazzy Powell PROF 14(COMP METB)on 023 Albumin [Mass/Vol] 3.5 g/dL Normal 3.4-5.0 [facility] Comment on above: Performed By: #### H STROPN, LIPA, BNP, CMP ####[facility] [address] [place], [place] [address]ToCheryl Powell Albumin/Globulin [Mass ratio] 1.0 {ratio} Normal [facility] Comment on above: Performed By: #### H STROPN, LIPA, BNP, CMP ####[facility] [address] [place] [address]Dr. Jazzy Powell ALP [Catalytic activity/Vol] 101 U/L Normal 46-116 [facility] Comment on above: Performed By: #### H STROPN, LIPA, BNP, CMP ####[facility] [address] [place] [address]Dr. Jazzy Powell ALT [Catalytic activity/Vol] 27 U/L Normal 16-63 [facility] Comment on above: Performed By: #### H STROPN, LIPA, BNP, CMP ####[facility] [address] [place] [address]Dr. Jazzy Powell Anion gap [Moles/Vol] 6.1 mmol/L Normal [facility] Comment on above: Performed By: #### H STROPN, LIPA, BNP, CMP ####[facility] [address] [place], [place] [address]Dr. Jzazy Powell AST [Catalytic activity/Vol] 15 U/L Normal 15-37 [facility] Comment on above: Performed By: #### H STROPN, LIPA, BNP, CMP ####[facility] [address] [place], [place] [address]Dr. Jazzy Powell Bilirubin [Mass/Vol] 0.3 mg/dL Normal 0.2-1.0 [facility] Comment on above: Performed By: #### H STROPN, LIPA, BNP, CMP ####[facility] [address] [place] [address]Dr. Jazzy Powell Calcium [Mass/Vol] 8.9 mg/dL Normal 8.5-10.1 [facility] Comment on above: Performed By: #### H STROPN, LIPA, BNP, CMP ####[facility] [address] [place] [address]Dr. Jazzy Powell Chloride [Moles/Vol] 104 mmol/L Normal 98-107 [facility] Comment on above: Performed By: #### H STROPN, LIPA, BNP, CMP ####[facility] [address] [place] [address]Dr. Jazzy Powell CO2 [Moles/Vol] 29.4 mmol/L Normal 21.0-32.0 [facility] Comment on above: Performed By: #### H STROPN, LIPA, BNP, CMP ####[facility] [address] [place] [address]Dr. Jazzy Powell Creatinine [Mass/Vol] 0.85 mg/dL Normal 0.70-1.30 [facility] Comment on above: Performed By: #### H STROPN, LIPA, BNP, CMP ####[facility] [address] [place] [address]Dr. Jazzy Powell EGFR-AF CHADIAN >60 Normal >=60 [facility] Comment on above: Performed By: #### H STROPN, LIPA, BNP, CMP ####[facility] [address] [place] [address]Dr. Shilohmelanie Powell EGFR-NON AF CHADIAN >60 Normal >=60 [facility] Comment on above: Performed By: #### H STROPN, LIPA, BNP, CMP ####[facility] [address] [place] [address]Dr. Jazzy Powell Globulin (S) [Mass/Vol] 3.4 g/dL Normal [facility] Comment on above: Performed By: #### H STROPN, LIPA, BNP, CMP ####[facility] [address] [place] [address]Dr. Jazzy Powell Glucose [Mass/Vol] 95 mg/dL Normal 74-106 [facility] Comment on above: Performed By: #### H STROPN, LIPA, BNP, CMP ####[facility] [address] [place] [address]Dr. Jazzy Powell Potassium [Moles/Vol] 3.5 mmol/L Normal 3.5-5.1 [facility] Comment on above: Performed By: #### H STROPN, LIPA, BNP, CMP ####[facility] [address] [place] [address]Dr. Jazzy Powell Protein [Mass/Vol] 6.9 g/dL Normal 6.4-8.2 [facility] Comment on above: Performed By: #### H STROPN, LIPA, BNP, CMP ####[facility] [address] [place], [place] [address]Dr. Jazzy Powell Sodium [Moles/Vol] 136 mmol/L Normal 136-145 [facility] Comment on above: Performed By: #### H STROPN, LIPA, BNP, CMP ####[facility] [address] [place], [place] [address]Dr. Jazzy Powell Urea nitrogen [Mass/Vol] 17.0 mg/dL Normal 7.0-18.0 [facility] Comment on above: Performed By: #### H STROPN, LIPA, BNP, CMP ####[facility] [address] [place], [place] [address]Dr. Jazzy Powell Urea nitrogen/Creatinine [Mass ratio] 20.0 mg/mg Normal [facility] Comment on above: Performed By: #### H STROPN, LIPA, BNP, CMP ####[facility] [address] [place], [place] [address]Dr. Jazzy Powell PROTIMEon 05-03-2022 INR Coag (PPP) [Relative time] 0.95 {INR} Normal [facility] Comment on above: Performed By: #### P TT, PT ####[facility] [address] [place], [place] [address]Dr. Jazzy Powell INR GUIDELINES SEE BELOW Normal [facility] Comment on above: Result Comment: ANNEMARIE RED INR: 2.0 - 3.0 CONDITIONS NOT LISTED BELOW 2.5 - 3.5 FOR PROSTHETIC HEART VALVE REPLACEMENT 2.5 - 3.5 RECURRENT THROMBOSIS Performed By: #### P TT, PT ####[facility] [address] [place], [place] [address]Dr. Jazzy Powell PT Coag (PPP) [Time] 10.1 s Normal 9.0-11.6 [facility] Comment on above: Performed By: #### P TT, PT ####[facility] [address] [place], [place] [address]DrCheryl Powell PTTon 05-03-2022 aPTT Coag (Bld) [Time] 28.7 s Normal 22.3-36.2 [facility] Comment on above: Performed By: #### P TT, PT ####[facility] [address] [place], [place] [address]NzCheryl Powell TROPONIN, HIGH SENSITIVITYon 05-03-2022 HSTROP 5.1 pg/mL Normal 4.0-76.1 [facility] Comment on above: Result Comment: CUT- OFF POINTS HAVE BEEN ESTABLISHED BASED ON THE FOURTH UNIVERSAL DEFINITIONS OF MYOCARDIAL INFARCTION. THE UPPER REFERENCE LIMIT (URL) OF TROPONIN, DEFINED THE 99TH PERCENTILE OF cTnI DISTRIBUTION IN A REFERENCE POPULATION, HAS BEEN CONFIRMED THE DECISION THRESHOLD FOR [place] DIAGNOSIS. Performed By: #### H STROPN, LIPA, BNP, CMP ####[facility] [address] [place], [place] [address]Nv. Jazzy Powell Covid-19 PCR (CVDTBH)on SARS-CoV-2 (COVID-19) RNA ALLIE+probe Ql (Unsp spec) Not detected Normal NOT DETECTED [facility] Comment on above: Result Comment: When [...] for this test is supported by the Patient Representative of Health and Human Service's declaration that [...] used). Performed By: #### C VDTBH #### [facility] [address] [place], [place] [address] Dr. Jazzy Powell MRI FOOT LT WO CONon 2 022 MRI FOOT LT WO CON EXAM: [...] EDSON PEACOCK Date: 2022-01-01 08:53 Normal [facility] Office Visit (Cardiology)on 10-19-2021 Follow-up visit [...] Weight Tips; Status:Complete - Retrospective Authorization; Done: [id number] Some eating tips that can help you lose weight.; Status:Complete - Retrospective Authorization; Done: [id number] SocHx: Current every day smoker Tobacco Use Screening; Status:Complete; Done: [id number] You need to quit smoking.; Status:Complete - Retrospective Authorization; Done: [id number] You need to stop smoking. Though it is not easy, more than half of all adult smokers have quit. We encourage you to write down all the reasons you should quit smoking and set a quit date for yourself. Ask us how we can help. You may also call 5-086-MDQEReproductive Research TechnologiesNOW for free resources and assistance.; Status:Complete - Retrospective Authorization; Done: [id number] Unlinked Stop: Brilinta 90 MG Oral Tablet [...] negative for complaint. Vitals Vital Signs Recorded: [id number] 02:25PM Heart Rate74, L Radial Ifdalpqi208, LUE, Sitting Flzpgwcyw70, LUE, Sitting Height6 ft 2 in Lezgqu291 lb BMI Moewpsqynz40.64 kg (more content not included)... Normal [employer] Tobacco Screening.on 022 Fall risk assessment a) No falls within the last year [facility] y 250 DO Work Phone: Tobacco use status CPHS a) Yes [facility] y 250 DO Work Phone: Tobacco Screening. Yes [facility] y 250 DO Work Phone: CNPNon 07-04-2021 CNPN Telephone (SPNSMN) ASHOK DOSS ([id number]) 1965 M Date Time Provider Department 07/04/21 [facility] During your visit today, we recorded the following information about you: Charbel Hill, RN 07/04/2021 11:40 AM Signed Neuro SPINE [...] Status:Closed by CHARBEL HILL on 07/04/21 [facility] CNOVon 06-06-2021 CNOV Office Visit (SPNSMN ) ASHOK DOSS ([id number]) 1965 M Date Time Provider Department 06/06/21 [...] lumbar laminectomy approx. 20 years ago in [place]. Did well post-op with resolution of sciatica. Has had chronic low back pain. Over the last 6 months he describes episodes of his legs feeling like rubber . Would occur randomly. Over the last 3 months he's started to experience this in the arms as well. 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 Normal [facility] Office Visit (Cardiology)on 05-26-2021 Follow-up visit [...] we can help. You may also call 1-098-WZLC-NOW for free resources and assistance.; Status:Complete - Retrospective Authorization; Done: 26May2021 Tobacco Use Screening; Status:Complete; Done: 26May2021 Patient Instructions By signing my name below, I, Silvana Rodriguez LPN, Scribe, attest that this documentation has [...] wall myocardial infarction. He was taken to [place] where he had a coronary intervention and [...] have been (more content not included)... Normal [facility] Tobacco Screening.on 022 Adult depression screening assessment No [facility] [employer] 600 DO Work Phone: Heart Rate Regular [facility] [employer] 600 DO Work Phone: Tobacco use status CPHS a) Yes [facility] [employer] 600 DO Work Phone: Tobacco Screening. Yes [facility] 600 DO Work Phone: Christian 05-17-2021 ARTHUR Telephone (NIQ) ASHOK DOSS ([id number]) 1965 M Date Time Provider Department 05/17/21 ASHIA BERMEO During your visit today, we recorded the following information about you: Liset Lazcano Robotic Machine Operator 05/17/2021 12:43 PM Addendum .Received the following record(s) via fax. -XR Foreign Body Eye, MRI Cspine wo Date 05/05/21 Record(s) scanned into pt's chart. Ashia Bermeo APRN.CNP 05/17/2021 3:18 PM Signed Awaiting CD copy of imaging. Ashia Bermeo APRN.CNP Allergies As of Date: 05/17/2021 (No Known [...] Encounter Status:Closed by ASHIA BERMEO on 05/17/21 [facility] 05-04-2021 CNPN Telephone (NIQ) ASHOK DOSS ([id number]) 1965 M Date Time Provider Department 05/04/21 ASHIA BERMEO NIQ During your visit today, we recorded the following information about you: Liset Lazcano Robotic Machine Operator 05/04/2021 11:44 AM Signed Lulu from [facility] requesting an Orbit order. Pt is scheduled tomorrow for MRI. Fax - [facility] - [phone] Catherine Stuart RN 05/04/2021 12:16 PM Signed Neuro SPINE CARE COORDINATION QUICK NOTE MRI Cervical order faxed to provided number. Catherine Stuart RN Math Interventionist Rita Ta [facility] 05/04/2021 1:41 PM Signed XR Eye Foreign [...] Status:Closed by CATHERINE STUART on 05/04/21 [facility] CNOVon 04-24-2021 CNOV Office Visit (SPNSMN ) ASHOK DOSS ([id number]) 1965 M Date Time Provider Department 04/24/21 2:15 PM ASHIA BERMEO SPNSMN During your visit today, we recorded the following information about you: Pulse Respiration Blood pressure Weight 79/minute 18/minute 139/68 118.7 kg Height 1.88 m Ashia Bermeo APRN.GORE SEAMER 04/24/2021 3:14 PM Signed SPINE SURGERY OUTPATIENT [...] lumbar laminectomy approx. 20 years ago in [place]. Did well post-op with resolution of sciatica. [...] DISTRIBUTION: Not applicable AMBULATORY STATUS: [facility] ANTIPLATELET OR ANTICOAGULATION STATUS: Yes Previous [place] PREVIOUS SPINAL SURGERY: SURGERY #1: L5-S1 Laminectomy in [place] approx. 20 years ago There is no [...] vision or hearing. CARDIOVASCULAR: Hypertension and previous [place] RESPIRATORY: Denies SOB, sputum production, and hemoptysis. [...] PHQ-9 04/17/2021 (more content not included)... Normal [facility] Office Visit (Cardiology)on 12-27-2020 Follow-up visit [...] year old male that presents to the [facility] with his for follow-up on testing. He follows with his primary chuck wagon cook Dr. Stacy and was added to my schedule today. He has a recent history of an [place] with cardiac catheterization 11/18/2020 with PCI and [...] see if cardiac rehabilitation is possible at [facility] that is closest to his home. [...] 1. CAD; with acute inferior ST elevation [place] requiring cardiac catheterization 11/18/2020 with PCI and [...] itching CARDIOVASCULAR:N (more content not included)... Normal [employer] Tobacco Screening.on 021 Fall risk assessment a) No falls within the last year [facility] [employer] 127 DO Work Phone: Tobacco use status [facility] a) Yes [employer] Research TechnologiesGrant [employer] 127 DO Work Phone: Tobacco Screening. Yes [facility] [place] [facility] 127 DO Work Phone: Cardiac Stress Teston 2020 Cardiac Stress Test [facility] [address] [place], [address], [place], [place] [address] Exercise Stress Test Patient Name: ASHOK DOSS Ordering Physician: Sheridan Stacy MD Study Date: 12/23/2020 Reading Physician: [id number] Pena MD, [facility] MRN/PID: [id number] Supervising Physician: Accession/Order#: [id number] Referring Physician: Sheridan STACY Date of : 1965 PCP: Gender: M Fellow: Height: 187.96 cm Nurse: Frida Dewey RN Weight: 119.75 kg Interventionist: N/A BSA: 2.45 m2 Technologist: BMI: 33.90 kg/m2 Additional Staff: Age: 55 years cc report to: Patient Location: [facility] cc report to: [id number] Rachel Stacy MD Study Type: Cardiac Stress Test Diagnosis/ICD: I25.10-Atherosclerotic heart disease; I21.19-ST elevation (STEMI) myocardial infarction involving other coronary artery of inferior wall Indication: CAD, INF. [place] Procedure/CPT: Stress Test Interpretation-[id number]; Stress Test Supervision-[id number] Falls Risk: Patient Performance: The patient exercised [...] The inadequate level of stress was achieved. [id number] Pena MD, [facility] Electronically signed on 12/23/2020 at 5:13:[address] [facility] Cardiac Stress Test [facility]-No rth [facility] [address] [place] Work Phone: Echocardiogramon 12-23-[address], [address] [place] [address] TRANSTHORACIC ECHOCARDIOGRAM REPORT Patient Name: ASHOK DOSS Sindy Physician: [id number] Pena MD, FAC Study Date: 12/23/2020 Referring Physician: [id number] STACY MRN/PID: [id number] PCP: Colten Gordon MD Accession/Order#: [id number] Department Location: [facility] Date of : 1965 Fellow: Gender: M Nurse: Admit Date: Interventionist: Latanya Yadav RDCS, RT(R), RDMS, RVT Height: 187.96 cm CC Report to: Weight: 119.75 kg Study Type: Echocardiogram BSA: 2.45 m2 Diagnosis/ICD: I25.10-Atherosclerotic heart disease of sioux coronary artery without angina pectoris; I21.19-ST elevation (STEMI) myocardial infarction involving other coronary artery of inferior wall Indication: HTN PTCA Procedure/CPT: Echo Complete w Full Doppler-[id number] Study Detail: The following Echo studies were [...] 0.8 m/s (0.6-0.9m/s) PV Max P.5 mmHg [id number] Antony Pena MD, FACC Electronically signed on 12/23/2020 at 11:56:[address] [facility] Echocardiography Please click on the link to view the study images Normal -[facility] [address] [place] Work Phone: Discharge Planning [id number] 0 11-20-2020 Discharge Planning Note2 Discharge Planning: Discharge Barriersnone Planned Disposition[facility] PCP/Next Provider Follow Up Scheduledyes Anticipated Discharge [id number] Discharge Planning 11/20/20 tcc NOTE: ROUNDED WITH NURSING, PT ADMITTED FOR NSTEMI, STARTED ON BRILINTA. ADDED MEAT CARVER REFERRAL TO FOLLOW OUTPT . PT TO BE DISCHARGED WITH PRESCRIPTION FOR BRILINTA. DISCOUNT BRILINTA CARD PROVIDED TO NURSING WITH [facility] . PT TO BE DISCHARGED HOME ON THIS DATE. NO FURTHER NEEDS IDENTIFIED. NURSING AM-PAC 24, PLAN IS HOME WITH FAMILY. ANJELICA RUSS RN TCC Assessment: Discharge Planning Assessment [id number] Discharge Documentation: Discharge/Transfer Date/Pagy58-Ppb-7417 14:21 Discharged Accompanied Byspouse Discharge Modeambulatory Transportation Methodprivate car Valuables/Medications/B elongings Returnedyes Final DispositionHome Electronic Signatures: Anjelica Russ (FAMILY COUNSELOR) (Signed 20-Nov-2020 13:02) Authored: Discharge Planning, Assessment Madhavi Moore (RN) (Signed 20-Nov-2020 14:21) Authored: Discharge Planning, Discharge Documentation Last Updated: 20-Nov-2020 14:21 by Madhavi Moore (RN) Normal [facility] Discharge [id number] 021 Discharge Profile2 Discharge Orders: Anticipated Discharge Date: Anticipated Discharge [id number] Anticipated Discharge Time12:18 Problem List: Additional Dx: [...] hour away, and will be seeking a chuck wagon cook closer to home, but will be seen at [facility] with me within 1 week to go [...] Physician/Dept/ServiceP nacho call Dr. Stacy's office at [phone], patient should be seen within the next week. Call to Schedule in1 week Electronic Signatures: Rachel Stacy) (Signed 20-Nov-2020 12:27) Authored: Discharge Orders, Hospital Course (Home Care/Gold Form), Provider FINAL REVIEW of Orders, Appointments, Gold Form - Insurance Sales Executive Summary Last Updated: 20-Nov-2020 12:27 by Rachel Stacy) [facility] Order Reconciliationon 11-20 Order Reconciliation Page 1 [...] tab(s) orally [address] [facility] APTTon 11-19-[address] [facility] Comment on above: Order Comment: TEST APTT WAS CANCELLED, 11/19/2020 03:59 DUPLICATE ORDER. Result Comment: THE APTT IS NO LONGER USED FOR MONITORING UNFRACTIONATED HEPARIN THERAPY. FOR MONITORING HEPARIN THERAPY, USE THE HEPARIN ASSAY. Performed By: #### A PTT ####[facility] [address] [place], [place] [id number] aPTT Coag (Bld) [Time] 28 s Normal 25 - 35 [facility] Comment on above: Result Comment: THE APTT IS NO LONGER USED FOR MONITORING UNFRACTIONATED HEPARIN THERAPY. FOR MONITORING HEPARIN THERAPY, USE THE HEPARIN ASSAY. Performed By: #### A PTT #### [address] [id number] BASIC METABOLIC PANELon 11-02 Anion gap [Moles/Vol] 12 mmol/L Normal 10 - 20 [facility] Comment on above: Performed By: #### B MP #### [address] [id number] Calcium [Mass/Vol] 8.4 mg/dL Low 8.6 - 10.3 [facility] [place] Comment on above: Performed By: #### B MP #### [address] [id number] Chloride [Moles/Vol] 109 mmol/L High 98 - 107 [facility] Comment on above: Performed By: #### B MP #### [address] [id number] Creatinine [Mass/Vol] 0.83 mg/dL Normal 0.50 - 1.30 [facility] Comment on above: Performed By: #### B MP #### [address] [id number] GFR- AM. >60 Normal >60 [facility] Comment on above: Result Comment: CALC ULATIONS OF ESTIMATED GFR ARE PERFORMED USING THE MDRD STUDY EQUATION FOR THE IDMS-TRACEABLE CREATININE METHODS. CLIN CHEM 2007;53:766-72 Performed By: #### B MP #### [address] [id number] GFR-NON AM. >60 Normal >60 [facility] Comment on above: Performed By: #### B MP #### [address] [id number] Glucose [Mass/Vol] 115 mg/dL High 74 - 99 [facility] ([place], [place]) Comment on above: Performed By: #### B MP #### [facility] [address] [place], [place] [id number] HCO3 (Bld) [Moles/Vol] 23 mmol/L Normal 21 - 32 [facility] Comment on above: Performed By: #### B MP #### [facility] [address] [place], [place] [id number] Potassium [Moles/Vol] 3.8 mmol/L Normal 3.5 - 5.3 [facility] Comment on above: Performed By: #### B MP #### [facility] [address] [place], [place] [id number] Sodium [Moles/Vol] 140 mmol/L Normal 136 - 145 [facility] ([place], [place]) Comment on above: Performed By: #### B MP #### [facility] [address] [place], [place] [phone] Urea nitrogen [Mass/Vol] 20 mg/dL Normal 6 - 23 [facility] Comment on above: Performed By: #### B MP #### [address] [id number] CBCon 11-19-2020 Erythrocyte distribution width (RBC) [Ratio] 13.3 % Normal 11.5 - 14.5 [facility] Comment on above: Performed By: #### C BC ####[facility] [place], [place] [id number] Hematocrit (Bld) [Volume fraction] 41.2 % Normal 41.0 - 52.0 [facility] Comment on above: Performed By: #### C BC ####[facility] [place], [place] [id number] Hemoglobin (Bld) [Mass/Vol] 13.5 g/dL Normal 13.5 - 17.5 [facility] Comment on above: Performed By: #### C BC ####[facility] [place], [place] [id number] MCHC (RBC) [Mass/Vol] 32.8 g/dL Normal 32.0 - 36.0 [facility] Comment on above: Performed By: #### C BC ####[facility] [place], [place] [id number] MCV (RBC) [Entitic vol] 93 fL Normal 80 - 100 [facility] Comment on above: Performed By: #### C BC ####[facility] [place], [place] [id number] Platelets (Bld) [#/Vol] 333 10*3/uL Normal 150 - 450 [facility] Comment on above: Performed By: #### C BC ####[facility] [place], [place] [id number] RBC 4.42 x10E12/L Low 4.50 - 5.90 [facility] Comment on above: Performed By: #### C BC ####[facility] [place], [place] [id number] WBC (Bld) [#/Vol] 22.9 10*3/uL High 4.4 - 11.3 [facility] Comment on above: Performed By: #### C BC ####[address] [id number] Consult-Critical Careon 11-02 Consult-Critical Care Service: Service: Critical Care Consult: Consult requested by (Attending Name): Rachel Stacy Reason: ICU MANAGEMENT History of Present Illness: Admission Reason: Inferior Wall STEMI HPI: ASHOK DOSS is a 55 year old Male Pmhx HTN and active smoker Presented to [facility] ED [place] d/t Chest pain. Described it as crushing mid sternal pain with radiation to the Left arm. He went to [facility] Last week d/t CP and had respiratory complaints and was sent home and was told he had bronchitis and CP could be 2/2 to. He states he had CP before but never like this, he associated complaints with diaphoresis, presyncopal x2 and weakness. No history of [place] before but he is an active pack [...] ankle surgery, carpal tunnel Family history: Father [place], CHF Mother: CAD Social History: Pack a [...] prophylaxis Heme/ID: Elevated WBC 2/2 reactive to [place] SCDs for DVT prophylaxis, Enoxaparin -pharmacological DVT measures -hold for now Msk/Integumentaty PT/OT Social/family/dispo: admit to ICU Code; Full *Plan discussed at length with bedside RN and Dr. Zaid Posey MD Consult Status: Consult Order ID: [id number] Attestation: Note Completion: I am a: Advanced Practice Provider Attending Only - Shared Visit with Advanced Practice ProviderThis is a shared visit. I have revi (more content not included)... Normal [facility] Daily Progress Note - Critic al [...] 150-170mmhg. Objective Data: Objective Information T PRBPSpO2 [id number]/7799% Date/Time11/19 1:309/18 17:41918 17:41918 17:41918 17:41 Range(37.1C [...] None ---- Intake and Output ----- Mn/Dy[facility] Nov 19, 2020 6:00 [id number] The Intake and Output Totals for the last 24 hours are: [facility] [id number] Date: Weight/Scale Type: 18-Nov-2020 23:25294.7 kg Physical Exam by System: Neurological: alert [...] the bedside L3 Electronic Signatures: Leia Stearns (PLUSH CUTTER-GORE SEAMER) (Signed 19-Nov-2020 18:30) Authored: Service, Subjective Data, Objective Data, Assessment and Plan José Miguel Posey) (Signed 19-Nov-2020 22:22) Authored: Note Completion Last Updated: 19-Nov-2020 22:22 by José Miguel Posey) [facility] Daily Progress Note-Cardiolo gayle 11-19-2020 Daily Progress Note-Cardiology Service: Cardiology [...] 2. Objective Data: Objective Information: T PRBPSpO2 [id number]/8297% Date/Time11/19 1: 13: 13: 13: 13:30 Range(37.1C [...] None ---- Intake and Output ----- Mn/Dy/Year TimeIntakeOutputNet Nov 19, 2020 6:00 [id number] The Intake and Output Totals for the last 24 hours are: [facility]akeOut[facility] centerNet [id number] Recent Lab Results: Results: CBC: 11/19/2020 05:23 [...] Updated: 19-Nov-2020 17:17 by Rachel Stacy) Normal [facility] HEPARIN ASSAY,UFHon 11-20-19 21 HEPARIN ASSAY,UFH 0.2 IU/mL Normal [facility] Comment on above: Result Comment: The therapeutic reference range for UFH may be either 0.3-0.6 IU/mL or 0.3-0.7 IU/mL based on the clinical setting for anticoagulant therapy and the associated nomogram used. For heparin dosing guidelines based on clinical scenario and Heparin Assay results, please refer to local Pharmacy and the [facility] Guidelines for Anticoagulation therapy available on the [facility] intranet at: [email or web address] [email or web address]/Pharmacy/Pages/[place]_[facility] emma_Rene james_for_Anticoagu.aspx Performed By: #### T ROP2 #### [address] [id number] HEPARIN ASSAY,UFH 0.2 IU/mL Normal [facility] Comment on above: Result Comment: The therapeutic reference range for UFH may be either 0.3-0.6 IU/mL or 0.3-0.7 IU/mL based on the clinical setting for anticoagulant therapy and the associated nomogram used. For heparin dosing guidelines based on clinical scenario and Heparin Assay results, please refer to local Pharmacy and [facility] Guidelines for Anticoagulation therapy available on the [facility] intranet at: https://replaced by [facility]/Pharmacy/Pages/[place]_[facility]_Guid elines_for_Anticoagu.aspx Performed By: #### T ROP2 #### [address] [id number] HEPARIN ASSAY,UFH <0.1 Normal [facility] Comment on above: Result Comment: The therapeutic reference range for UFH may be either 0.3-0.6 IU/mL or 0.3-0.7 IU/mL based on the clinical setting for anticoagulant therapy and the associated nomogram used. For heparin dosing guidelines based on clinical scenario and Heparin Assay results, please refer to [facility] Pharmacy and [facility] Guidelines for Anticoagulation therapy available on the [facility] intranet at: https://replaced by [facility]/Pharmacy/Pages/[place]_[facility]_Guid elines_for_Anticoagu.aspx Performed By: #### T ROP2 #### [address] [id number] MAGNESIUMon 11-19-2020 Magnesium [Mass/Vol] 1.80 mg/dL Normal 1.60 - 2.40 [facility] Comment on above: Performed By: #### T ROP2 #### [address] [id number] Measurementson 11-19-2020 Measurements Weight: Weight in kg124.7 kilogram(s) Height: Height in cm188 centimeter(s) Qatari Unit Translation (pounds, inches): Measurement Qatari Unit Translations (Adult only): Weight in pdn672.916 pound(s) Electronic Signatures: Maggie Muir (STAFF N) (Signed 18-Nov-2020 23:08) Authored: Weight, Height, Qatari Unit Translation (pounds, inches) Last Updated: 18-Nov-2020 23:08 by Maggie Muir (STAFF N) Normal [facility] PT/INRon 11-19-2020 PROTHROMBIN TIME Canceled Normal [facility] Comment on above: Order Comment: TEST PT/INR WAS CANCELLED, 11/19/2020 01:33 Performed By: #### P TINR #### [address] [id number] PT, INR Canceled Normal [facility] Comment on above: Order Comment: TEST PT/INR WAS CANCELLED, 11/19/2020 01:33 Performed By: #### P TINR #### [address] [id number] PT Coag (PPP) [Time] 12.8 s Normal 10.1 - 13.3 [facility] Comment on above: Performed By: #### P TINR #### [address] [id number] PT, INR 1.1 Normal 0.9 - 1.1 [facility] Comment on above: Performed By: #### P TINR #### [address] [id number] TROPONIN Ion 11-19-2020 Troponin I.cardiac [Mass/Vol] 10.69 ng/mL Critically high 0.00 - 0.03 [facility] Comment on above: Order Comment: Hedy roberts- DAMON to Shelia GOODMAN , 11/19/2020 21:43 Result [...] is performed using different testing methodology at [facility]3] than at other [facility]. Direct result comparisons should only be made within the same method. Marce- RB to Shelia GOODMAN , 11/19/2020 21:43 Performed By: #### T ROP2 #### [address] [id number] Troponin I.cardiac [Mass/Vol] 12.77 ng/mL Critically high 0.00 - 0.03 [facility] Comment on above: Order Comment: Hedy wolff RB to Michaelle David, 11/19/2020 13:36 Result [...] is performed using different testing methodology at [facility]3] than at [facility]. Direct result comparisons should only be made within the same method. Called- RB to Michaelle David, 11/19/2020 13:36 Performed By: #### T ROP2 #### [address] [id number] Troponin I.cardiac [Mass/Vol] 18.39 ng/mL Critically high 0.00 - 0.03 [facility] Comment on above: Order Comment: Hedy roberts- RB to Omar Muiridy, 11/19/2020 06:26 Result Comment: LESS THAN 0.04 [...] is performed using different testing methodology at [facility]3] than at other [facility]. Direct result comparisons should only be made within the same method. Called- RB to Omar Muir, 11/19/2020 06:26 Performed By: #### T ROP2 #### [address] [id number] TROPONIN I Canceled Normal [facility] Comment on above: Order Comment: Hedy [...] is performed using different testing methodology at [facility]3] than at other [facility]. Direct result comparisons should only be made within the same method. Performed By: #### T ROP2 #### [address] [id number] Troponin I.cardiac [Mass/Vol] 17.54 ng/mL Critically high 0.00 - 0.03 [facility] Comment on above: Order Comment: Hedy JOSE to Bandar Ceasr, 11/19/2020 02:22 Result Comment: LESS THAN 0.04 [...] is performed using different testing methodology at [facility]3] than at other [facility]. Direct result comparisons should only be made within the same method. Called- RB to Bandar Cesar, 11/19/2020 02:22 Performed By: #### T ROP2 ####[facility] [place], [place] [id number] ACT-LOW RANGEon 11-18-2020 ACT-LOW RANGE 294 SECONDS High 89 - 169 [facility] Comment on above: Result Comment: Note new reference range as of 06/06/2018. Target ACT range will vary based on the patient population, clinical status, and surgical intervention occurring. Performed By: #### T ROP2 #### [facility] [address] [place], [place] [id number] ACT-LOW RANGE 207 SECONDS High 89 - 169 [facility] Comment on above: Result Comment: Note new reference range as of 06/06/2018. Target ACT range will vary based on the patient population, clinical status, and surgical intervention occurring. Performed By: #### T ROP2 #### [address] [id number] BNPon 11-18-2020 Natriuretic peptide B (Bld) [Mass/Vol] 33 pg/mL Normal 0 - 99 [facility] Comment on above: Result Comment: . <1 00 pg/mL - Heart failure unlikely 100-299 pg/mL - Intermediate probability of acute heart . failure exacerbation. Correlate with clinical . context and patient history. >=300 pg/mL - Heart Failure likely. Correlate with clinical . context and patient history. BNP testing is performed using different testing methodology at [facility]3] than at other [facility]. Direct result comparisons should only be made within the same method. Performed By: #### B MP #### [address] [id number] CBCon 11-18-2020 Erythrocyte distribution width (RBC) [Ratio] 13.3 % Normal 11.5 - 14.5 [facility] Comment on above: Performed By: #### C BC ####[facility] [place], [place] [id number] Hematocrit (Bld) [Volume fraction] 44.7 % Normal 41.0 - 52.0 [facility] Comment on above: Performed By: #### C BC ####[facility] [place], [place] [id number] Hemoglobin (Bld) [Mass/Vol] 14.6 g/dL Normal 13.5 - 17.5 [facility] Comment on above: Performed By: #### C BC ####[facility] [place], [place] [id number] MCHC (RBC) [Mass/Vol] 32.7 g/dL Normal 32.0 - 36.0 [facility] Comment on above: Performed By: #### C BC ####[facility] [place], [place] [id number] MCV (RBC) [Entitic vol] 92 fL Normal 80 - 100 [facility] Comment on above: Performed By: #### C BC ####[facility] [place], [place] [id number] Platelets (Bld) [#/Vol] 395 10*3/uL Normal 150 - 450 [facility] Comment on above: Performed By: #### C BC ####[facility] [place], [place] [id number] RBC 4.85 x10E12/L Normal 4.50 - 5.90 [facility] Comment on above: Performed By: #### C BC ####[address] [place], [place] [id number] WBC (Bld) [#/Vol] 21.9 10*3/uL High 4.4 - 11.3 [facility] Comment on above: Performed By: #### C BC ####[address] [id number] CHEST 1 VIEWon 11-18-2020 CHEST 1 VIEW STUDY: Chest Radiograph; 11/18/2020 7:22 PM. INDICATION: Concern for dissection, chest pain. COMPARISON: None Available. ACCESSION NUMBER(S): [id number] ORDERING CLINICIAN: JERRY BLAIR MD TECHNIQUE: Frontal chest was obtained at 1919 hours. FINDINGS: CARDIOMEDIASTINAL SILHOUETTE: Cardiomediastinal silhouette is normal in size and configuration. LUNGS: Lungs are clear. ABDOMEN: No remarkable upper abdominal findings. BONES: No acute osseous changes. IMPRESSION: No acute cardiopulmonary process seen. Signed by Racquel Griffiths MD Electronically signed by: RACQUEL GRIFFITHS MD Normal [facility] COMPREHENSIVE PANELon 2020 Albumin [Mass/Vol] 4.2 g/dL Normal 3.4 - 5.0 [facility] ([place], [place]) Comment on above: Performed By: #### C MP ####[address] [id number] ALP [Catalytic activity/Vol] 74 U/L Normal 33 - 120 [facility] Comment on above: Performed By: #### C MP ####[address] [id number] ALT [Catalytic activity/Vol] 19 U/L Normal 10 - 52 [facility] Comment on above: Result Comment: Carmelita ents treated with Sulfasalazine may generate falsely decreased results for ALT. Performed By: #### C MP ####[address] [id number] Anion gap [Moles/Vol] 12 mmol/L Normal 10 - 20 [facility] Comment on above: Performed By: #### C MP ####[address] [id number] AST [Catalytic activity/Vol] 15 U/L Normal 9 - 39 [facility] Comment on above: Performed By: #### C MP ####[address] [id number] Bilirubin [Mass/Vol] 0.3 mg/dL Normal 0.0 - 1.2 [facility] Comment on above: Performed By: #### C MP ####[address] [id number] Calcium [Mass/Vol] 9.4 mg/dL Normal 8.6 - 10.3 [facility] ([place], [place]) Comment on above: Performed By: #### C MP ####[address] [id number] Chloride [Moles/Vol] 107 mmol/L Normal 98 - 107 [facility] Comment on above: Performed By: #### C MP ####[address] [id number] Creatinine [Mass/Vol] 1.12 mg/dL Normal 0.50 - 1.30 [facility] Comment on above: Performed By: #### C MP ####[address] [id number] GFR- AM. >60 Normal >60 [facility] Comment on above: Result Comment: CALC ULATIONS OF ESTIMATED GFR ARE PERFORMED USING THE MDRD STUDY EQUATION FOR THE IDMS-TRACEABLE CREATININE METHODS. CLIN CHEM 2007;53:766-72 Performed By: #### C MP ####[address] [id number] GFR-NON AM. >60 Normal >60 [facility] Comment on above: Performed By: #### C MP ####[address] [id number] Glucose [Mass/Vol] 113 mg/dL High 74 - 99 [facility] ([place], [place]) Comment on above: Performed By: #### C MP ####[address] [id number] HCO3 (Bld) [Moles/Vol] 28 mmol/L Normal 21 - 32 [facility] Comment on above: Performed By: #### C MP ####[address] [id number] Potassium [Moles/Vol] 3.8 mmol/L Normal 3.5 - 5.3 [facility] Comment on above: Performed By: #### C MP ####[address] [id number] Protein [Mass/Vol] 7.0 g/dL Normal 6.4 - 8.2 [facility] ([place], [place]) Comment on above: Performed By: #### C MP ####[address] [id number] Sodium [Moles/Vol] 143 mmol/L Normal 136 - 145 [facility] ([place], [place]) Comment on above: Performed By: #### C MP ####[address] [id number] Urea nitrogen [Mass/Vol] 19 mg/dL Normal 6 - 23 [facility] Comment on above: Performed By: #### C MP ####[address] [id number] CORONAVIRUS 2019, SCREEN ASY MPTOMATICon 11-18-2020 SARS-CoV-2 (COVID-19) RNA ALLIE+probe Ql (Unsp spec) Not detected Normal Not Detected [facility] Comment on above: Result Comment: . This test has received FDA Emergency Use Authorization (EUA) and has been verified by [facility]. This test is only authorized for the duration of time that circumstances exist to justify the authorization of the emergency use of in vitro diagnostic tests for the detection of SARS-CoV-2 virus and/or diagnosis of COVID-19 infection under section 564(b)(1) of the Act, 21 U.S.C. 360bbb-3(b)(1), unless the authorization is terminated or revoked sooner. [facility] is certified under CLIA-88 as qualified to perform high complexity testing. Testing is performed in the [facility] laboratory located at [address] [place] [address]. SARS-CoV-2/Flu/RSV Multiplex Test: Fact sheet for providers: https://www.fda.gov/media/225920/download Fact sheet for patients: https://www.fda.gov/media/022077/download Performed By: #### C OVSC ####[address] [place], [place] [id number] Lab Specimen Source Nasal, Nasopharyngeal Normal [facility] Comment on above: Performed By: #### C OVSC ####[address] [place], [place] [id number] Covid 19 Resultson SARS-CoV-2 (COVID-19) RNA ALLIE+probe Ql (Unsp spec) [...] be contacted by the [facility] to see if any of your close [...] or Naproxen (Aleve) can also be used. Vyrb-pvz-zkvneoe cough and cold medicines can be used according to the instructions on the package. Some lofq-mrt-gxkunlh medicines also contain acetaminophen. Make sure you [...] water are not available, use alcohol-based hand rail switch operator. Avoid touching your eyes, nose, and mouth [...] 24 oliva (more content not included)... Normal [facility] PCI (Percutaneous Cardiac In tervention)on 11-18-2020 PCI (Percutaneous Cardiac Intervention) [facility], [employer] [address] [place], [place] [id number] Cardiovascular Catheterization Report Patient Name: Ashok Doss Performing Physician: [id number] Rachel Stacy MD Study Date: 11/18/2020 Verifying Physician: [id number] Rachel Stacy MD MRN/PID: [id number] Sort Line: Accession/Order#: [id number] Referring Physician: [id number] José Miguel Posey MD Date of : [...] a modified Seldinger technique. Subsequently a 6 Latvian sheath was placed in the right femoral [...] less than 10% distal stenosis. 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 [...] used. Complications (more content not included)... Normal [facility] Provider Note - ED v3on 09- [...] try and relieve some of his symptoms. [facility] was activated prehospital and the [employer] team was at the bedside upon his arrival. Obtained a quick chest x-ray given he reported that the pain was sharp and radiating to his arm which not show pneumothorax and did not show a widened mediastinum so I doubt he is having dissection. [facility] was available so patient was taken directly to [facility] for percutaneous intervention for his ST segment elevation [place]. I did speak with the cinder worker team to let them know that the patient be coming to them afterwards. DIAGNOSIS: STEMI DISPOSITION: 1) [employer] HISTORY OF PRESENTING ILLNESS ASHOK is a [...] Updated: 18-Nov-2020 20:27 by Jerry Blair) Normal [facility] TROPONIN Ion 11-18-2020 Troponin I.cardiac [Mass/Vol] 0.03 ng/mL Normal 0.00 - 0.03 [facility] Comment on above: Result Comment: LESS [...] is performed using different testing methodology at [facility]3] than at other [facility]. Direct result comparisons should only be made within the same method. Performed By: #### T ROP2 ####[facility] [place], [place] [id number] Troponinon 05-05-2020 Troponin I.cardiac [Mass/Vol] 7 ng/L Normal 0-22 [facility] Comment on above: Result Comment: High Sensitivity Troponin values cannot be compared with other Troponin methodologies. Patients with high levels of Biotin oral intake (i.e >5mg/day) may have falsely decreased Troponin levels. Samples collected within 8 hours of biotin intake may require additional information for diagnosis. Performed By: #### T ALEXANDRAI #### [employer] [address] [place] [address] [id number] Functional Analyst: Shane Peña MD Troponin I.cardiac [Mass/Vol] NOT REPORTED [employer] Phone: Troponin T.cardiac [Mass/Vol] NOT REPORTED <0.03 ng/mL [employer] Phone: Troponin, High Sensitivity 7 ng/L 0 - 22 ng/L [employer] Phone: Comment on above: High Sensitivity Troponin values cannot be compared with other Troponin methodologies. Patients with high levels of Biotin oral intake (i.e >5mg/day) may have falsely decreased Troponin levels. Samples collected within 8 hours of biotin intake may require additional information for diagnosis. Troponinon 05-04-2020 Troponin I.cardiac [Mass/Vol] NOT REPORTED Normal [facility] Comment on above: Performed By: #### T ALEXANDRAI #### [employer] [address] [place], [place] [id number] Functional Analyst: Shane Peña MD CBCon 03-02-2021 Erythrocyte distribution width (RBC) [Ratio] 12.9 % Normal 11.8-14.4 [facility] Comment on above: Performed By: #### C BC, CP, LIPR, TSH #### [facility] [employer] [address] [place] [address] Functional Analyst: Shane Peña MD Hematocrit (Bld) [Volume fraction] 43.3 % Normal 40.7-50.3 [facility] Comment on above: Performed By: #### C BC, CP, LIPR, TSH #### [facility] [employer] [address] [place] [address] Functional Analyst: Shane Peña MD Hemoglobin (Bld) [Mass/Vol] 14.0 g/dL Normal 13.0-17.0 [facility] Comment on above: Performed By: #### C BC, CP, LIPR, TSH #### [facility] [employer] [address] [place] [address] Functional Analyst: Shane Peña MD MCH (RBC) [Entitic mass] 29.6 pg Normal 25.2-33.5 [facility] Comment on above: Performed By: #### C BC, CP, LIPR, TSH #### [facility] [employer] [address] [place] [address] Functional Analyst: Shane Peña MD MCHC (RBC) [Mass/Vol] 32.3 g/dL Normal 28.4-34.8 [facility] Comment on above: Performed By: #### C BC, CP, LIPR, TSH #### [facility] [employer] [address] [place] [address] Functional Analyst: Shane Peña MD MCV (RBC) [Entitic vol] 91.5 fL Normal 82.6-102.9 [facility] Comment on above: Performed By: #### C BC, CP, LIPR, TSH #### [facility] [employer] [address] [place] [address] 98336 Functional Analyst: Shane Peña MD NRBC Automated 0.0 per 100 WBC Normal 0.0 [facility] Comment on above: Performed By: #### C BC, CP, LIPR, TSH #### [facility] [employer] [address] [place] [address] 21807 Functional Analyst: Shane Peña MD Platelet mean volume (Bld) [Entitic vol] 9.1 fL Normal 8.1-13.5 [facility] Comment on above: Performed By: #### C BC, CP, LIPR, TSH #### [facility] [employer] [address] [place] [address] 90294 Functional Analyst: Shane Peña MD Platelets (Bld) [#/Vol] 410 10*3/uL Normal 138-453 [facility] Comment on above: Performed By: #### C BC, CP, LIPR, TSH #### [facility] [employer] [address] [place] [address] 93903 Functional Analyst: Shane Peña MD RBC (Bld) [#/Vol] 4.73 10*6/uL Normal 4.21-5.77 [facility] Comment on above: Performed By: #### C BC, CP, LIPR, TSH #### [facility] [employer] [address] [place] [address] 97240 Functional Analyst: Shane Peña MD WBC (Bld) [#/Vol] 14.2 10*3/uL High 3.5-11.3 [facility] Comment on above: Performed By: #### C BC, CP, LIPR, TSH #### [facility] [employer] [address] [place] [address] 72147 Functional Analyst: Shane Peña MD Erythrocyte distribution width (RBC) [Ratio] 12.9 % 11.8 - 14.4 % [facility] [employer] Work Phone: Hematocrit (Bld) [Volume fraction] 43.3 % 40.7 - 50.3 % [employer] Phone: Hemoglobin (Bld) [Mass/Vol] 14.0 g/dL 13 - 17 g/dL [employer] Phone: Interpretation and review of laboratory results Abnormal [employer] Phone: MCH (RBC) [Entitic mass] 29.6 pg 25.2 - 33.5 pg [employer] Phone: MCHC (RBC) [Mass/Vol] 32.3 g/dL 28.4 - 34.8 g/dL [employer] Phone: MCV (RBC) [Entitic vol] 91.5 fL 82.6 - 102.9 fL [employer] Phone: Platelet mean volume (Bld) [Entitic vol] 9.1 fL 8.1 - 13.5 fL [employer] Phone: Platelets (Bld) [#/Vol] 410 10*3/uL [employer] Phone: RBC (Bld) [#/Vol] 4.73 10*6/uL 4.21 - 5.7 7 m/uL [employer] Phone: WBC (Bld) [#/Vol] 0.0 10*3/uL 0.0 per 10 0 WBC [employer] Phone: WBC (Bld) [#/Vol] 14.2 10*3/uL High [employer] Phone: Comp Metabolic Profon 2020 (cont.) Normal [facility] Comment on above: Result Comment: Aver age GFR for 50-59 years old: 93 mL/min/1.73sq m Chronic Kidney Disease: <60 mL/min/1.73sq m Kidney failure: <15 mL/min/1.73sq m eGFR calculated using average adult body mass. Additional eGFR calculator available at: http://www.[employer].Kynded/multiple_crcl_2012.htm Performed By: #### C BC, CP, LIPR, TSH #### [facility] [place] [address] [place] [address] 99998 Functional Analyst: Shane Peña MD Albumin [Mass/Vol] 4.1 g/dL Normal 3.5-5.2 [facility] Comment on above: Performed By: #### C BC, CP, LIPR, TSH #### [facility] [employer] [address] [place] [address] 64608 Functional Analyst: Shane Peña MD Albumin/Globulin [Mass ratio] 1.8 {ratio} Normal 1.0-2.5 [facility] Comment on above: Performed By: #### C BC, CP, LIPR, TSH #### [facility] [place] [address] [place] [address] 07561 Functional Analyst: Shane Peña MD Alkaline Phos 80 U/L Normal 40-129 [facility] Comment on above: Performed By: #### C BC, CP, LIPR, TSH #### [facility] [place] [address] [place] [address] 67882 Functional Analyst: Shane Peña MD ALT [Catalytic activity/Vol] 18 U/L Normal 5-41 [facility] Comment on above: Performed By: #### C BC, CP, LIPR, TSH #### [facility] [place] [address] [place] [address] 77249 Functional Analyst: Shane Peña MD Anion gap [Moles/Vol] 9 mmol/L Normal 9-17 [facility] Comment on above: Performed By: #### C BC, CP, LIPR, TSH #### [facility] [employer] [address] [place] [address] 95986 Functional Analyst: Shane Peña MD AST [Catalytic activity/Vol] 15 U/L Normal <40 [facility] Comment on above: Performed By: #### C BC, CP, LIPR, TSH #### [facility] [employer] [address] [place] [address] 43867 Functional Analyst: Shane Peña MD Bilirubin Ql (U) 0.32 mg/dL Normal 0.3-1.2 [facility] Comment on above: Performed By: #### C BC, CP, LIPR, TSH #### [facility] [address] [place] [address] 76490 Functional Analyst: Shane Peña MD Calcium [Mass/Vol] 9.4 mg/dL Normal 8.6-10.4 [facility] Comment on above: Performed By: #### C BC, CP, LIPR, TSH #### [facility] [employer] [address] [place] [address] 31006 Functional Analyst: Shane Peña MD Chloride [Moles/Vol] 102 mmol/L Normal 98-107 [facility] Comment on above: Performed By: #### C BC, CP, LIPR, TSH #### [facility] [employer] [address] [place] [address] 61376 Functional Analyst: Shane Peña MD CO2 [Moles/Vol] 26 mmol/L Normal 20-31 [facility] Comment on above: Performed By: #### C BC, CP, LIPR, TSH #### [facility] [place] [address] [place] [address] 47341 Functional Analyst: Shane Peña MD Creatinine [Mass/Vol] 0.86 mg/dL Normal 0.70-1.20 [facility] Comment on above: Performed By: #### C BC, CP, LIPR, TSH #### [facility] [employer] [address] [place] [address] 33251 Functional Analyst: Shane Peña MD GFR, Amer >60 Normal >60 [facility] Comment on above: Performed By: #### C BC, CP, LIPR, TSH #### [facility] [employer] [address] [place] [address] 46894 Functional Analyst: Shane Peña MD GFR,non Amer >60 Normal >60 [facility] Comment on above: Performed By: #### C BC, CP, LIPR, TSH #### [facility] [address] [place] [address] 06763 Functional Analyst: Shane Peña MD Glucose [Mass/Vol] 95 mg/dL Normal 70-99 [facility] Comment on above: Performed By: #### C BC, CP, LIPR, TSH #### [facility] [address] [place] [address] 10026 Functional Analyst: Shane Peña MD Potassium [Moles/Vol] 4.3 mmol/L Normal 3.7-5.3 [facility] Comment on above: Performed By: #### C BC, CP, LIPR, TSH #### [facility] [employer] [address] [place] [address] 91717 Functional Analyst: Shane Peña MD Protein [Mass/Vol] 6.4 g/dL Normal 6.4-8.3 [facility] Comment on above: Performed By: #### C BC, CP, LIPR, TSH #### [facility] [employer] [address] [place] [address] 55533 Functional Analyst: Shane Peña MD Sodium [Moles/Vol] 137 mmol/L Normal 135-144 [facility] Comment on above: Performed By: #### C BC, CP, LIPR, TSH #### [facility] [address] [place] [address] 43199 Functional Analyst: Shane Peña MD Urea nitrogen [Mass/Vol] 17 mg/dL Normal 6-20 [facility] Comment on above: Performed By: #### C BC, CP, LIPR, TSH #### [facility] [address] [place] [address] 32770 Functional Analyst: Shane Peña MD BUN/CRE Ratio NOT REPORTED Normal 9-20 [facility] Comment on above: Performed By: #### C BC, CP, LIPR, TSH #### [employer] [address] [place], [place] [phone] Functional Analyst: Shane Peña MD Staging: NOT REPORTED Normal [facility] Comment on above: Performed By: #### C BC, CP, LIPR, TSH #### [facility] [address] [place], [place] [phone] Functional Analyst: Shane Peña MD Comprehensive Metabolic Pane feng 05-03-2020 Albumin [Mass/Vol] 4.1 g/dL 3.5 - 5.2 g/dL [employer] Work Phone: Albumin/Globulin [Mass ratio] 1.8 {ratio} [employer] Phone: ALP [Catalytic activity/Vol] 80 U/L 40 - 129 U/L [facility] Work Phone: ALT [Catalytic activity/Vol] 18 U/L 5 - 41 U/L [employer] Phone: Anion gap [Moles/Vol] 9 mmol/L 9 - 17 mmol/L [facility] Work Phone: AST [Catalytic activity/Vol] 15 U/L <40 [facility] Phone: Bilirubin Ql (U) 0.32 mg/dL 0.3 - 1.2 mg/dL [employer] Phone: Bun/Cre Ratio NOT REPORTED [facility] Work Phone: Calcium [Mass/Vol] 9.4 mg/dL 8.6 - 10. 4 mg/dL [employer] Work Phone: Chloride [Moles/Vol] 102 mmol/L 98 - 10 7 mmol/L [employer] Phone: CO2 [Moles/Vol] 26 mmol/L 20 - 31 mmol/L [employer] Phone: Creatinine [Mass/Vol] 0.86 mg/dL 0.7 - 1.2 mg/dL [employer] Phone: GFR >60 >60 mL/min [email or web address] Phone: GFR Non- >60 >60 mL/min [employer] Phone: GFR/1.73 sq M predicted among non-blacks MDRD (S/P/Bld) [Vol rate/Area] [employer] Phone: Comment on above: Average GFR for 50-5 9 years old: 93 mL/min/1.73sq m Chronic Kidney Disease: <60 mL/min/1.73sq m Kidney failure: <15 mL/min/1.73sq m eGFR calculated using average adult body mass. Additional eGFR calculator available at: http://www.[employer]/multiple_crcl_2012.htm GFR/1.73 sq M predicted among non-blacks MDRD (S/P/Bld) [Vol rate/Area] NOT REPORTED [employer] Phone: Glucose [Mass/Vol] 95 mg/dL 70 - 99 mg/dL [employer] Phone: Potassium [Moles/Vol] 4.3 mmol/L 3.7 - 5.3 mmol/L [employer] Phone: Protein [Mass/Vol] 6.4 g/dL 6.4 - 8.3 g/dL [employer] Phone: Sodium [Moles/Vol] 137 mmol/L 135 - 144 mmol/L [employer] Phone: Urea nitrogen [Mass/Vol] 17 mg/dL 6 - 20 mg/dL [employer] Phone: Lipid Panelon 05-03-2020 Cholesterol [Mass/Vol] 172 mg/dL <200 [employer] Phone: Comment on above: Cholesterol Guidelines: <200 Desirable 200-240 Borderline >240 Undesirable Cholesterol in HDL [Mass/Vol] 38 mg/dL Low >40 [employer] Phone: Comment on above: HDL Guidelines: <40 Undesirable 40-59 Borderline >59 Desirable Cholesterol in LDL [Mass/Vol] 106 mg/dL 0 - 130 mg/dL [employer] Phone: Comment on above: LDL Guidelines: <100 Desirable 100-129 Near to/above Desirable 130-159 Borderline >159 Undesirable Direct (measured) LDL and calculated LDL are not interchangeable tests. Cholesterol in VLDL [Mass/Vol] NOT REPORTED 1 - 30 mg/dL [employer] Phone: Cholesterol.total/Ch olesterol in HDL [Mass ratio] 4.5 {ratio} <5 [employer] Phone: Interpretation and review of laboratory results Abnormal [employer] Phone: Triglyceride [Mass/Vol] 138 mg/dL <150 [employer] Phone: Comment on above: Triglyceride Guidelines: <150 Desirable 150-199 Borderline 200-499 High >499 Very high Based on AHA Guidelines for fasting triglyceride, December 2011. Lipid Profileon 05-03-2020 Cholesterol [Mass/Vol] 172 mg/dL Normal <200 [facility] Comment on above: Result Comment: Cholesterol Guidelines: <200 Desirable 200-240 Borderline >240 Undesirable Performed By: #### C BC, CP, LIPR, TSH #### [employer] [facility] [place], [place] [id number] Functional Analyst: Shane Peña MD Cholesterol in HDL [Mass/Vol] 38 mg/dL Low >40 [facility] Comment on above: Result Comment: HDL Guidelines: <40 Undesirable 40-59 Borderline >59 Desirable Performed By: #### C BC, CP, LIPR, TSH #### [employer] [address] [place], [place] [id number] Functional Analyst: Shane Peña MD Cholesterol in LDL [Mass/Vol] 106 mg/dL Normal 0-130 [facility] Comment on above: Result Comment: LDL Guidelines: <100 Desirable 100-129 Near to/above Desirable 130-159 Borderline >159 Undesirable Direct (measured) LDL and calculated LDL are not interchangeable tests. Performed By: #### C BC, CP, LIPR, TSH #### [employer] [facility] [place] [address] Functional Analyst: Shane Peña MD Cholesterol.total/Ch olesterol in HDL [Mass ratio] 4.5 {ratio} Normal <5 [facility] Comment on above: Performed By: #### C BC, CP, LIPR, TSH #### [employer] [address] [place] [address] 25432 Functional Analyst: Shane Peña MD Triglyceride [Mass/Vol] 138 mg/dL Normal <150 [facility] Comment on above: Result Comment: Triglyceride Guidelines: <150 Desirable 150-199 Borderline 200-499 High >499 Very high Based on AHA Guidelines for fasting triglyceride, December 2011. Performed By: #### C BC, CP, LIPR, TSH #### [employer] [address] [place] [address] 44021 Functional Analyst: Shane Peña MD Cholesterol in VLDL [Mass/Vol] NOT REPORTED Normal 1-30 [facility] Comment on above: Performed By: #### C BC, CP, LIPR, TSH #### [employer] [address] [place] [address] 05062 Functional Analyst: Shane Peña MD TSH without Reflexon 021 TSH Qn 1.35 m[IU]/L [facility] [employer] Work Phone: Thyroid Stim. Horm.on 2020 TSH Qn 1.35 m[IU]/L Normal 0.30-5.00 [facility] Comment on above: Performed By: #### C BC, CP, LIPR, TSH #### [employer] [address] [place] [address] 34907 Functional Analyst: Shane Peña MD XR CHEST (2 [...] Stephan Soto MD 05/03/20 Final result Normal [facility] No evidence for acut e cardiopulmonary pathology. [employer] Phone: EXAMINATION: TWO XRA Y VIEWS OF [...] structures and soft tissues are grossly intact. [employer] Phone: Robert, Mhpn Incoming Radiant Results From [employer] - 05/03/2020 11:24 AM EST EXAMINATION: TWO [...] IMPRESSION: No evidence for acute cardiopulmonary pathology. [employer] Phone: Covid-19 Ambulatoryon 2019 SARS-CoV-2, ALLIE Not Detected Not Detected [place], [place] Comment on above: (NOTE) This nucleic acid amplification test was developed and its performance characteristics determined by [facility]. Nucleic acid amplification tests include PCR and [...] detected) result in this assay. Performed At: [employer] [facility] [address] [facility], [place] [id number] Lilian Diannajackie [facility] Ph:[phone] [id number] 11-09-2019 SARS-CoV-2 Not Detected Normal Not Detected [facility] Comment on above: Result Comment: (NOT E) This nucleic acid amplification test was developed and its performance characteristics determined by [facility]. Nucleic acid amplification tests include PCR and [...] detected) result in this assay. Performed At: [facility] [address] [place], [place] [id number] Lilian Severino [facility] Ph:[phone] Performed By: #### A COV #### [facility] [address] [place] [address] Functional Analyst: Сергей Ramsey MD EKG 12 Leadon 11-04-2019 Atrial Rate 82 BPM [place], [place] P [place] 52 degrees [facility], [place] P-R Interval 146 ms [facility] Q-T Interval 388 ms [facility] QRS Duration 102 ms [facility] QTc Calculation (Bazett) 453 ms [place] R [place] -21 degrees [facility] T [place] 58 degrees [facility] Ventricular Rate 82 BPM [place], [place] Robert, Mh[employer] Incoming E kg Results From [place] - 11/04/2019 10:29 AM EDT Normal sinus rhythm Normal ECG No previous ECGs available [place] Normal sinus rhythm Normal ECG No previous ECGs available [place] Basic Metabolic Panelon 08-3 Anion gap [Moles/Vol] 10 mmol/L 9 - 17 mmol/L [place] Bun/Cre Ratio NOT REPORTED [place] Calcium [Mass/Vol] 9.2 mg/dL 8.6 - 10. 4 mg/dL [place] Chloride [Moles/Vol] 104 mmol/L 98 - 10 7 mmol/L [place] CO2 [Moles/Vol] 27 mmol/L 20 - 31 mmol/L [place] Creatinine [Mass/Vol] 0.83 mg/dL 0.7 - 1.2 mg/dL [place] GFR >60 >60 mL/min [place] GFR Non- >60 >60 mL/min [place] GFR/1.73 sq M predicted among non-blacks MDRD (S/P/Bld) [Vol rate/Area] [place] Comment on above: Average GFR for 50-5 9 years old: 93 mL/min/1.73sq m Chronic Kidney Disease: <60 mL/min/1.73sq m Kidney failure: <15 mL/min/1.73sq m eGFR calculated using average adult body mass. Additional eGFR calculator available at: http://www.[employer]/multiple_crcl_2011.htm GFR/1.73 sq M predicted among non-blacks MDRD (S/P/Bld) [Vol rate/Area] NOT REPORTED [place] Glucose [Mass/Vol] 103 mg/dL High 70 - 99 mg/dL [place] Interpretation and review of laboratory results Abnormal [place] Potassium [Moles/Vol] 4.5 mmol/L 3.7 - 5.3 mmol/L [place] Sodium [Moles/Vol] 141 mmol/L 135 - 144 mmol/L [place] Urea nitrogen [Mass/Vol] 18 mg/dL 6 - 20 mg/dL [place] Basic Metabolic Profon 11-01 (cont.) Normal [facility] Comment on above: Result Comment: Aver age GFR for 50-59 years old: 93 mL/min/1.73sq m Chronic Kidney Disease: <60 mL/min/1.73sq m Kidney failure: <15 mL/min/1.73sq m eGFR calculated using average adult body mass. Additional eGFR calculator available at: http://www.[employer]/multiple_crcl_2011.htm Performed By: #### C DP, BMP #### [facility] [address] [facility]. [place], [place] [phone] Functional Analyst: Cheko Boykin DO Anion gap [Moles/Vol] 10 mmol/L Normal - [facility] Comment on above: Performed By: #### C DP, BMP #### [facility] [address] [facility] [place], [place] [phone] Functional Analyst: Cheko Boykin DO Calcium [Mass/Vol] 9.2 mg/dL Normal 8.6-10.4 [facility] Comment on above: Performed By: #### C DP, BMP #### [facility] [address] [place] [address] Functional Analyst: Cheko Boykin DO Chloride [Moles/Vol] 104 mmol/L Normal 98-107 [facility] Comment on above: Performed By: #### C DP, BMP #### [facility] [address] [place] [address] Functional Analyst: Cheko Boykin DO CO2 [Moles/Vol] 27 mmol/L Normal 20-31 [facility] Comment on above: Performed By: #### C KLAUS, BMP #### [facility] [place] [address] Functional Analyst: Cheko Boykin DO Creatinine [Mass/Vol] 0.83 mg/dL Normal 0.70-1.20 [facility] Comment on above: Performed By: #### C DP, BMP #### [facility] [place] [address] Functional Analyst: Cheko Boykin DO GFR, Amer >60 Normal >60 [facility] Comment on above: Performed By: #### C DP, BMP #### [facility] [address] [place] [address] Functional Analyst: Cheko Boykin DO GFR,non Amer >60 Normal >60 [facility] Comment on above: Performed By: #### C DP, BMP #### [facility] [address] [place] [address] Functional Analyst: Cheko Boykin DO Glucose [Mass/Vol] 103 mg/dL High 70-99 [facility] Comment on above: Performed By: #### C DP, BMP #### [facility] [address] [facility] [place] [address] Functional Analyst: Cheko Boykin DO Potassium [Moles/Vol] 4.5 mmol/L Normal 3.7-5.3 [facility] Comment on above: Performed By: #### C DP, BMP #### [facility] [address] [facility] [place] [address] Functional Analyst: Cheko Boykin DO Sodium [Moles/Vol] 141 mmol/L Normal 135-144 [facility] Comment on above: Performed By: #### C KLAUS, BMP #### [facility] [place] [address] Functional Analyst: Cheko Boykin DO Urea nitrogen [Mass/Vol] 18 mg/dL Normal -20 [facility] Comment on above: Performed By: #### C KLAUS, BMP #### [facility] [address] [place] [address] Functional Analyst: Cheko Boykin DO BUN/CRE Ratio NOT REPORTED Normal -20 [facility] Comment on above: Performed By: #### C KLAUS, BMP #### [facility] [place] [address] Functional Analyst: Cheko Boykin DO Staging: NOT REPORTED Normal [facility] Comment on above: Performed By: #### C DP, BMP #### [facility] [place] [address] Functional Analyst: Cheko Boykin DO CBC Auto Differentialon 08-3 Basophils (Bld) [#/Vol] 0.10 10*3/uL [facility] Basophils/100 WBC (Bld) 1 % 0 - 2 % [facility] Differential Type NOT REPORTED [place] Eosinophils (Bld) [#/Vol] 0.60 10*3/uL [place] Eosinophils/100 WBC (Bld) 4 % 0 - 4 % [place] Erythrocyte distribution width (RBC) [Ratio] 13.9 % 11.5 - 14.9 % [place] Hematocrit (Bld) [Volume fraction] 42.4 % 41 - 53 % [place] Hemoglobin (Bld) [Mass/Vol] 14.5 g/dL 13.5 - 17.5 g/dL [place] Interpretation and review of laboratory results Abnormal [place] Lymphocytes (Bld) [#/Vol] 4.00 10*3/uL [place] Lymphocytes/100 WBC (Bld) 29 % 24 - 44 % [place] MCH (RBC) [Entitic mass] 30.5 pg 26 - 34 pg [place] MCHC (RBC) [Mass/Vol] 34.2 g/dL 31 - 37 g/dL [place] MCV (RBC) [Entitic vol] 89.1 fL 80 - 100 fL [place] Monocytes (Bld) [#/Vol] 1.00 10*3/uL [place] Monocytes/100 WBC (Bld) 7 % 1 - 7 % [place] Platelet mean volume (Bld) [Entitic vol] 7.1 fL 6 - 12 fL [place] Platelets (Bld) [#/Vol] 378 10*3/uL [place] Platelets (Bld) [#/Vol] NOT REPORTED [place] RBC (Bld) [#/Vol] 4.76 10*6/uL 4.5 - 5.9 m/uL [place] RBC morphology finding Nom (Bld) NOT REPORTED [place] Segmented neutrophils/100 WBC (Bld) 59 % 36 - 66 % [place] Segs Absolute 8.30 [place] WBC (Bld) [#/Vol] 13.9 10*3/uL [place] WBC (Bld) [#/Vol] NOT REPORTED per 100 WBC [place] WBC Morphology NOT REPORTED [place] CBC with Diffon 11-02-2019 Abs. Basophil 0.10 k/uL Normal 0.0-0.2 [facility] Comment on above: Performed By: #### C DP, BMP #### [facility] [address] [place] [address] Functional Analyst: Cheko Boykin DO Abs.Neutrophil (Seg) 8.30 k/uL Normal 1.3-9.1 [facility] Comment on above: Performed By: #### C KLAUS, BMP #### [facility] [place] [address] Functional Analyst: Cheko Boykin DO Basophils/100 WBC (Bld) 1 % Normal 0-2 [facility] Comment on above: Performed By: #### C KLAUS, BMP #### [facility] [address] [facility] [place] [address] Functional Analyst: Cheko Boykin DO Eosinophils (Bld) [#/Vol] 0.60 10*3/uL High 0.0-0.4 [facility] Comment on above: Performed By: #### C DP, BMP #### [facility] [place] [address] Functional Analyst: Cheko Boykin DO Eosinophils/100 WBC (Bld) 4 % Normal 0-4 [facility] Comment on above: Performed By: #### C DP, BMP #### [facility] [address] [place] [address] Functional Analyst: Cheko Boykin DO Erythrocyte distribution width (RBC) [Ratio] 13.9 % Normal 11.5-14.9 [facility] Comment on above: Performed By: #### C DP, BMP #### [facility] [address] [place] [address] Functional Analyst: Cheko Boykin DO Hematocrit (Bld) [Volume fraction] 42.4 % Normal 41-53 [facility] Comment on above: Performed By: #### C DP, BMP #### [facility] [address] [facility] [place] [address] Functional Analyst: Cheko Boykin DO Hemoglobin (Bld) [Mass/Vol] 14.5 g/dL Normal 13.5-17.5 [facility] Comment on above: Performed By: #### C KLAUS, BMP #### [facility] Center Lab [facility] [address] [facility] [place] [address] Functional Analyst: Cheko Boykin DO Lymphocytes (Bld) [#/Vol] 4.00 10*3/uL Normal 1.0-4.8 [facility] Comment on above: Performed By: #### C DP, BMP #### [facility] Lab [facility] [address] [facility] [place] [address] Functional Analyst: Cheko Boykin DO Lymphocytes/100 WBC (Bld) 29 % Normal 24-44 [facility] Comment on above: Performed By: #### C KLAUS, BMP #### [facility] Lab [address] [place] [address] Functional Analyst: Cheko Boykin DO MCH (RBC) [Entitic mass] 30.5 pg Normal 26-34 [facility] Comment on above: Performed By: #### C DP, BMP #### [facility] Lab [facility] [address] [facility] [place] [address] Functional Analyst: Cheko Boykin DO MCHC (RBC) [Mass/Vol] 34.2 g/dL Normal 31-37 [facility] Comment on above: Performed By: #### C DP, BMP #### [facility] Lab [address] [place] [address] Functional Analyst: Cheko Boykin DO MCV (RBC) [Entitic vol] 89.1 fL Normal 80-100 [facility] Comment on above: Performed By: #### C DP, BMP #### [facility] Lab [facility] [place] [address] Functional Analyst: Cheko Boykin DO Monocytes (Bld) [#/Vol] 1.00 10*3/uL Normal 0.1-1.3 [facility] Comment on above: Performed By: #### C DP, BMP #### [facility] Lab [address] [place] [address] Functional Analyst: Cheko Boykin DO Monocytes/100 WBC (Bld) 7 % Normal 1-7 [facility] Comment on above: Performed By: #### C DP, BMP #### [facility] Lab [address] [place] [address] Functional Analyst: Cheko Boykin DO Neutrophil (Seg) 59 % Normal 36-66 [facility] Comment on above: Performed By: #### C DP, BMP #### [facility] Lab [address] [place] [address] Functional Analyst: Cheko Boykin DO Platelet mean volume (Bld) [Entitic vol] 7.1 fL Normal 6.0-12.0 [facility] Comment on above: Performed By: #### C DP, BMP #### [facility] Lab [address] [place] [address] Functional Analyst: Cheko Boykin DO Platelets (Bld) [#/Vol] 378 10*3/uL Normal 150-450 [facility] Comment on above: Performed By: #### C DP, BMP #### [facility] Lab [address] [place] [address] Functional Analyst: Cheko Boykin DO RBC (Bld) [#/Vol] 4.76 10*6/uL Normal 4.5-5.9 [facility] Comment on above: Performed By: #### C DP, BMP #### [facility] Lab [facility] [place] [address] Functional Analyst: Cheko Boykin DO WBC (Bld) [#/Vol] 13.9 10*3/uL High 3.5-11.0 [facility] Comment on above: Performed By: #### C DP, BMP #### [facility] [address] [place] [address] Functional Analyst: Cheko Boykin DO Abs.Imm.Granulocyte NOT REPORTED Normal 0.00-0.30 [facility] Comment on above: Performed By: #### C DP, BMP #### [facility] Lab [address] [place] [address] Functional Analyst: Cheko Boykin DO Auto Diff Performed NOT REPORTED Normal [facility] Comment on above: Performed By: #### C DP, BMP #### [facility] [address] [place] [address] Functional Analyst: Cheko Boykin DO Immature granulocytes (Bld) [#/Vol] NOT REPORTED Normal 0 [facility] Comment on above: Performed By: #### C DP, BMP #### [facility] Lab [address] [place] [address] Functional Analyst: Cheko Boykin DO NRBC Automated NOT REPORTED Normal [facility] Comment on above: Performed By: #### C DP, BMP #### [facility] [address] [place] [address] Functional Analyst: Cheko Boykin DO Platelets (Bld) [#/Vol] NOT REPORTED Normal [facility] Comment on above: Performed By: #### C DP, BMP #### [facility] [address] [facility] [place] [address] Functional Analyst: Cheko Boykin DO RBC morphology finding Nom (Bld) NOT REPORTED Normal [facility] Comment on above: Performed By: #### C DP, BMP #### [facility] [address] [facility] [place] [address] Functional Analyst: Cheko Boykin DO WBC Morphology NOT REPORTED Normal [facility] Comment on above: Performed By: #### C DP, BMP #### [facility] [address] [facility] [place] [address] Functional Analyst: Cheko Boykin DO Otheron 11-02-2019 Immature granulocytes (Bld) [#/Vol] NOT REPORTED 0 % [place] MRI KNEE LEFT WO CONTRASTon 10-28-2019 [...] quadriceps tendinosis. 3. Moderate joint effusion. 4. Rnyt-tj-kstpmnga patellofemoral chondromalacia. Mild medial compartment chondromalacia. Superimposed partial and full-thickness fissuring of the weight-bearing medial femoral condyle. 5. Mild edema in the soft tissues about the knee. Interpreted by: Simeon Long MD Signed by: Simeon Long MD 10/28/19 Final result Normal [facility] 1. Complex multidirectional tearing and volume loss in the posterior horn of the medial meniscus. Degeneration and outward extrusion of the medial meniscus body. 2. Mild multifocal patellar tendinosis. Mild distal quadriceps tendinosis. 3. Moderate joint effusion. 4. Yhzv-wf-egzfdzkt patellofemoral chondromalacia. Mild medial compartment chondromalacia. Superimposed partial and full-thickness fissuring of the weight-bearing medial femoral condyle. 5. Mild edema in the soft tissues about the knee. [facility], [place] EXAMINATION: MRI OF THE LEFT KNEE [...] in the soft tissues about the knee. [place], [place] Robert, [facility] Incoming Radiant Results From [employer] - 10/28/2019 3:10 PM EDT EXAMINATION: MRI [...] quadriceps tendinosis. 3. Moderate joint effusion. 4. Bnwv-yn-yyvkgebk patellofemoral chondromalacia. Mild medial compartment chondromalacia. Superimposed partial and full-thickness fissuring of the weight-bearing medial femoral condyle. 5. Mild edema in the soft tissues about the knee. [place] XR KNEE LEFT (3 VIEWS)on XR [...] Roz Mora MD 09/29/19 Final result Normal [facility] Small joint effusion. [place], [place] EXAMINATION: THREE X RAY VIEWS OF [...] within the medial compartment. Small joint effusion. [place] Robert, [facility] Incoming Radiant Results From [employer] - 09/29/2019 2:11 PM EDT EXAMINATION: THREE [...] Small joint effusion. IMPRESSION: Small joint effusion. [place] Uric Acidon 09-28-2019 Urate [Mass/Vol] 6.0 mg/dL 3.4 - 7 mg/dL [place] Uric Acidon 12-09-2018 Urate [Mass/Vol] 5.8 mg/dL 3.4 - 7 mg/dL [place] CBCon 11-05-2018 Erythrocyte distribution width (RBC) [Ratio] 13.1 % 11.8 - 14.4 % [place] Hematocrit (Bld) [Volume fraction] 46.1 % 40.7 - 50.3 % [place] Hemoglobin (Bld) [Mass/Vol] 14.9 g/dL 13 - 17 g/dL [place] Interpretation and review of laboratory results Abnormal [place] MCH (RBC) [Entitic mass] 31.0 pg 25.2 - 33.5 pg [place] MCHC (RBC) [Mass/Vol] 32.3 g/dL 28.4 - 34.8 g/dL [place] MCV (RBC) [Entitic vol] 95.8 fL 82.6 - 102.9 fL [place] Platelet mean volume (Bld) [Entitic vol] 9.2 fL 8.1 - 13.5 fL [place] Platelets (Bld) [#/Vol] 374 10*3/uL [place] RBC (Bld) [#/Vol] 4.81 10*6/uL 4.21 - 5.7 7 m/uL [place] WBC (Bld) [#/Vol] 11.8 10*3/uL High [place] WBC (Bld) [#/Vol] 0.0 10*3/uL 0.0 per 10 0 WBC [place] Comprehensive Metabolic Pane feng 11-05-2018 Albumin [Mass/Vol] 4.2 g/dL 3.5 - 5.2 g/dL [place] Albumin/Globulin [Mass ratio] 1.7 {ratio} [place] ALP [Catalytic activity/Vol] 83 U/L 40 - 129 U/L [place] ALT [Catalytic activity/Vol] 19 U/L 5 - 41 U/L [place] Anion gap [Moles/Vol] 16 mmol/L 9 - 17 mmol/L [place] AST [Catalytic activity/Vol] 15 U/L <40 [place] Bilirubin Ql (U) 0.29 mg/dL Low 0.3 - 1.2 mg/dL [place] Bun/Cre Ratio NOT REPORTED [place] Calcium [Mass/Vol] 9.5 mg/dL 8.6 - 10. 4 mg/dL [place] Chloride [Moles/Vol] 104 mmol/L 98 - 10 7 mmol/L [place] CO2 [Moles/Vol] 26 mmol/L 20 - 31 mmol/L [place] Creatinine [Mass/Vol] 0.81 mg/dL 0.7 - 1.2 mg/dL [place] GFR >60 >60 mL/min [place] GFR Non- >60 >60 mL/min [place] GFR/1.73 sq M predicted among non-blacks MDRD (S/P/Bld) [Vol rate/Area] NOT REPORTED [place] GFR/1.73 sq M predicted among non-blacks MDRD (S/P/Bld) [Vol rate/Area] [place] Comment on above: Average GFR for 50-5 9 years old: 93 mL/min/1.73sq m Chronic Kidney Disease: <60 mL/min/1.73sq m Kidney failure: <15 mL/min/1.73sq m eGFR calculated using average adult body mass. Additional eGFR calculator available at: http://www.Xeros/multiple_crcl_2012.htm Glucose [Mass/Vol] 99 mg/dL 70 - 99 mg/dL [place] Potassium [Moles/Vol] 4.4 mmol/L 3.7 - 5.3 mmol/L [place] Protein [Mass/Vol] 6.7 g/dL 6.4 - 8.3 g/dL [place] Sodium [Moles/Vol] 146 mmol/L High 135 - 144 mmol/L [place] Urea nitrogen [Mass/Vol] 17 mg/dL 6 - 20 mg/dL [place] Lipid Panelon 11-05-2018 Cholesterol [Mass/Vol] 199 mg/dL <200 [place] Comment on above: Cholesterol Guidelines: <200 Desirable 200-240 Borderline >240 Undesirable Cholesterol in HDL [Mass/Vol] 42 mg/dL >40 [place] Comment on above: HDL Guidelines: <40 Undesirable 40-59 Borderline >59 Desirable Cholesterol in LDL [Mass/Vol] 126 mg/dL 0 - 130 mg/dL [place] Comment on above: LDL Guidelines: <100 Desirable 100-129 Near to/above Desirable 130-159 Borderline >159 Undesirable Direct (measured) LDL and calculated LDL are not interchangeable tests. Cholesterol in VLDL [Mass/Vol] NOT REPORTED High 1 - 30 mg/dL [place] Cholesterol.total/Ch olesterol in HDL [Mass ratio] 4.7 {ratio} <5 [place] Triglyceride [Mass/Vol] 157 mg/dL High <150 [place] Comment on above: Triglyceride Guidelines: <150 Desirable 150-199 Borderline 200-499 High >499 Very high Based on AHA Guidelines for fasting triglyceride, December 2011. Otheron 11-05-2018 Interpretation and review of laboratory results Abnormal [place] Vital Signs Date Time Vital Sign Value Performing Clinician Facility 05-01-2023 10:28-0500 Body height 180.3 cm [facility] 05-01-2023 10:28-0500 Body mass index (BMI) [Ratio] 38.49 kg/m2 Hunter [facility] 05-01-2023 10:28-0500 Body temperature 97.9 [degF] Hunter SAMAYOA Work Phone: [facility] [employer] 05-01-2023 10:28-0500 Body weight 125.19 kg Hunter [facility] 05-01-2023 10:28-0500 Diastolic blood pressure 72 mm[Hg] Hunter [facility] 05-01-2023 10:28-0500 Heart rate 68 /min Hunter SAMAYOA Work Phone: [facility] [employer] 05-01-2023 10:28-0500 SaO2% (BldA) [Mass fraction] 95 % Hunter [facility]AYOA [facility] 05-01-2023 10:28-0500 Systolic blood pressure 138 mm[Hg] Hunter SAMAYOA Work Phone: [facility] [employer] 11-26-2022 15:24-0400 Body height 187.96 cm Colten AmosGlofox Work Phone: [facility] 250 DO Work Phone: 11-26-2022 15:24-0400 Body mass index (BMI) [Ratio] 35.31 kg/m2 Colten AmosGlofox Work Phone: [facility] 250 DO Work Phone: 11-26-2022 15:24-0400 Body surface area Derived from formula 2.49 m2 Colten G Furlong Work Phone: [facility] [employer] 250 DO Work Phone: 11-26-2022 15:24-0400 Body weight 124.74 kg Colten G Furlong Work Phone: [facility] [employer] 250 DO Work Phone: 11-26-2022 15:24-0400 Diastolic blood pressure 72 mm[Hg] Colten G Furlong Work Phone: [facility] [employer] 250 DO Work Phone: 11-26-2022 15:24-0400 Heart rate 70 /min Colten G Furlong Work Phone: [facility] [employer] 250 DO Work Phone: 11-26-2022 15:24-0400 Systolic blood pressure 138 mm[Hg] Colten Barnard Furlong Work Phone: [facility] [employer] 250 DO Work Phone: 10-19-2021 14:25-0400 Body height 187.96 cm Colten G Furlong Work Phone: [facility] [employer] 250 DO Work Phone: 10-19-2021 14:25-0400 Body mass index (BMI) [Ratio] 33.64 kg/m2 Colten G Furlong Work Phone: [facility] [employer] 250 DO Work Phone: 10-19-2021 14:25-0400 Body surface area Derived from formula 2.44 m2 Colten G Furlong Work Phone: [facility] [employer] 250 DO Work Phone: 10-19-2021 14:25-0400 Body weight 118.84 kg Colten G Furlong Work Phone: [facility] 250 DO Work Phone: 10-19-2021 14:25-0400 Diastolic blood pressure 68 mm[Hg] Colten G Furlong Work Phone: [facility] 250 DO Work Phone: 10-19-2021 14:25-0400 Heart rate 74 /min Colten Barnard Furlong Work Phone: [facility] DO Work Phone: 10-19-2021 14:25-0400 Systolic blood pressure 130 mm[Hg] Colten G Furlong Work Phone: [facility] DO Work Phone: 06-06-2021 10:10-0400 Body height 188 cm Megan Interiano MD Work Phone: [facility] 06-06-2021 10:10-0400 Body weight 116.8 kg Megan Interiano MD Work Phone: [facility] 06-06-2021 10:10-0400 Diastolic blood pressure 71 mm[Hg] Megan Interiano MD Work Phone: [facility] 06-06-2021 10:10-0400 Heart rate 62 /min Megan Interiano MD Work Phone: [facility] 06-06-2021 10:10-0400 Respiratory rate 16 /min Megan Interiano MD Work Phone: [facility] 06-06-2021 10:10-0400 SaO2% (BldA) [Mass fraction] 98 % Megan Interiano MD Work Phone: [facility] 06-06-2021 10:10-0400 Systolic blood pressure 148 mm[Hg] Megan Interiano MD Work Phone: [facility] 05-26-2021 09:27-0400 Body height 187.96 cm Colten G Furlong Work Phone: [facility] [employer] 600 DO Work Phone: 05-26-2021 09:27-0400 Body mass index (BMI) [Ratio] 33.41 kg/m2 Colten G Furlong Work Phone: [facility] [employer] 600 DO Work Phone: 05-26-2021 09:27-0400 Body surface area Derived from formula 2.43 m2 Colten G Furlong Work Phone: [facility] [employer] 600 DO Work Phone: 05-26-2021 09:27-0400 Body weight 118.03 kg Colten G Furlong Work Phone: [facility] [employer] 600 DO Work Phone: 05-26-2021 09:27-0400 Diastolic blood pressure 66 mm[Hg] Colten G Furlong Work Phone: [facility] [employer] 600 DO Work Phone: 05-26-2021 09:27-0400 Heart rate 62 /min Colten G Furlong Work Phone: [facility] [employer] 600 DO Work Phone: 05-26-2021 09:27-0400 Systolic blood pressure 122 mm[Hg] Colten G Furlong Work Phone: [facility] [employer] 600 DO Work Phone: 12-27-2020 13:15-0400 Body height 187.96 cm Colten G Furlong Work Phone: [facility] [employer] 127 DO Work Phone: 12-27-2020 13:15-0400 Body mass index (BMI) [Ratio] 33.64 kg/m2 Colten G Furlong Work Phone: [facility] DO Work Phone: 12-27-2020 13:15-0400 Body surface area Derived from formula 2.44 m2 Colten G Furlong Work Phone: [facility] 127 DO Work Phone: 12-27-2020 13:15-0400 Body weight 118.84 kg Colten G Furlong Work Phone: [facility] DO Work Phone: 12-27-2020 13:15-0400 Diastolic blood pressure 74 mm[Hg] Colten G Furlong Work Phone: [facility] DO Work Phone: 12-27-2020 13:15-0400 Heart rate 74 /min Colten G Furlong Work Phone: [facility] DO Work Phone: 12-27-2020 13:15-0400 Systolic blood pressure 131 mm[Hg] Colten G Furlong Work Phone: [facility] 127 DO Work Phone: 12-23-2020 09:15-0400 0 1 Colten G Furlong Work Phone: [facility] [address] [place] Work Phone: Comment on above: [id number] 11-10-2019 13:25-0400 BP Diastolic 78 mm[Hg] [facility] [place] 11-10-2019 13:25-0400 BP Systolic 140 mm[Hg] Liu [employer] [facility] , [place] 11-10-2019 13:25-0400 Pulse (Heart Rate) 78 /min Liu [employer] [facility], [place] 11-10-2019 13:25-0400 Pulse Oximetry 97 % Liu JacksonCustEx [facility] , [place] 11-10-2019 13:25-0400 Respiratory Rate 16 /min Liu Jackson [facility], [place] 11-10-2019 12:43-0400 Body Temperature 97.2 [degF] [facility] [place] 11-10-2019 10:06-0400 BMI (Body Mass Index) 35.31 kg/m2 Liu Jackson [facility], [place] 11-10-2019 10:06-0400 Body weight 124.74 kg Liu Jackson [facility] , [place] 11-10-2019 10:06-0400 Height 188 cm Liu Jackson [facility] , [place] 11-02-2019 11:08-0400 BMI (Body Mass Index) 35.31 kg/m2 [address] 11-02-2019 11:08-0400 Body Temperature 98.01 [degF] [address] 11-02-2019 11:08-0400 Body weight 124.[address] 11-02-2019 11:08-0400 BP Diastolic 94 mm[Hg] [address] 11-02-2019 11:08-0400 BP Systolic 147 mm[Hg] [address] 11-02-2019 11:08-0400 Height [address] 11-02-2019 11:08-0400 Pulse (Heart Rate) 83 /min [address] 11-02-2019 11:08-0400 Pulse Oximetry 99 % [address] 11-02-2019 11:08-0400 Respiratory Rate 18 /min [address] Encounters Encounter Date Encounter Type Care Provider Facility Start: 05-01-2023 End: 05-02-2023 ambulatory HUNTER ROBINS [facility] Start: 05-01-2023 End: 05-01-2023 Office outpatient visit 15 minutes Hunter Robins APRN-GORE SEAMER Work Phone: [facility] Comment on above: Essential hypertensi on (Primary Dx); Chronic hip pain, left; Mixed hyperlipidemia; Enlarged prostate; Skin lesion of left lower limb Start: 04-01-2023 Refill Hunterkvng Robins PLUSH CUTTER-GORE SEAMER Work Phone: [facility] Comment on above: Migraine, unspecifie d, not intractable, without status migrainosus Start: 11-26-2022 Patient encounter procedure Colten Gordon Work Phone: [facility] 250 DO Work Phone: Start: 07-31-2022 End: 08-01-2022 ambulatory NARENDRANATH LAKSHMIPATHY . Facility:[facility] Start: 07-31-2022 End: 08-01-2022 ambulatory AD GOTTLIEB . Facility:[facility] Start: 07-20-2022 End: 07-21-2022 ambulatory Antonio Bird MD Facility:[facility] Start: 06-14-2022 End: 06-15-2022 ambulatory NARENDRANATH LAKSHMIPATHY . Facility:[facility] Start: 05-08-2022 ambulatory [facility] Start: 05-03-2022 End: 05-03-2022 ambulatory HUNTER ROBINS Facility:[facility] Start: 03-15-2022 End: 03-16-[address] COMPA AWAD . Facility:[facility] Start: 02-15-2022 Encounter for preprocedural laboratory examination DR COMPA AWAD . [facility] Start: 02-13-2022 End: 02-13-[address] COMPA AWAD . Facility:[facility] Start: 02-09-2022 End: 02-10-[address] COMPA AWAD . Facility:[facility] Start: 02-09-2022 End: 02-10-2022 Encounter for preprocedural laboratory examination DR COMPA AWAD . Facility:[facility] Start: 01-16-2022 End: 01-17-[address] COMPA AWAD . Facility:[facility] Start: 01-09-2022 End: 01-09-[address] OCMPA AWAD . Facility:[facility] Start: 01-08-2022 Rx Renewal Colten Pérez ng Work Phone: [facility] 250 DO Work Phone: Start: 01-08-2022 Rx Renewal Colten figueroa Work Phone: [facility] 250 DO Work Phone: Start: 12-28-2021 End: 12-29-2021 ambulatory HUNTER ROBINS Facility:[facility] Start: 12-28-2021 End: 12-29-[address] COMPA AWAD . Facility:[facility] Start: 12-12-2021 End: 12-12-[address] COMPA AWAD . Facility:[facility] Start: 11-29-2021 Rx Renewal Colten figueroa Work Phone: [facility] 250 DO Work Phone: Start: 10-26-2021 End: 10-27-[address] COMPA AWAD . Facility: Start: 10-19-2021 Office outpatient vi sit 25 minutes [facility] Work Phone: Start: 08-23-2021 Message [facility]eroa [facility] Work [facility]: Start: 07-04-2021 Telephone encounter Megan garcia MD Work Phone: [facility] Comment on above: Schedule Surgery Start: 06-06-2021 End: 06-06-2021 Patient encounter procedure Megan Interiano MD Work Phone: [facility] Comment on above: Cervical spondylosis with myelopathy (Primary Dx); Loss of balance; Spinal stenosis of cervical region Start: 05-26-2021 Office outpatient vi sit 25 minutes Colten Gordon Work Phone: [facility] 600 DO Work Phone: Start: 01-03-2021 Chart Update Colten figueroa Work Phone: [facility] 127 DO Work Phone: Start: 12-27-2020 FUV, Provider: Kalie Lebron, Status: Pen, Time: 1:00 PM Colten Amoslong Work Phone: [facility] [address] [place] Work Phone: Start: 12-27-2020 Office outpatient vi sit 25 minutes Colten Amoslong Work Phone: [facility] 127 DO Work Phone: Start: 12-23-2020 Patient encounter procedure Colten Amoslong Work Phone: [facility] [address] [place] Work Phone: Start: 05-04-2020 End: 05-05-2020 Patient encounter procedure ROSD Paulina [facility] Start: 05-04-2020 End: 05-04-2020 Subsequent hospital visit by physician Kash GARCÍA [place] [facility] Start: 05-03-2020 End: 05-04-2020 Patient encounter procedure BRENDALUCASKEVOND Paulina [facility] Start: 05-03-2020 End: 05-03-2020 Subsequent hospital visit by physician Kash GARCÍA [place] [facility] Comment on above: Chest discomfort; Essential hypertension Start: 05-03-2020 End: 05-06-2020 Patient encounter procedure FLACO CARTER [facility] Start: 05-03-2020 End: 05-05-2020 Subsequent hospital visit by physician Alexa Shukla Xr Rm 1 [facility] Comment on above: Chest discomfort Start: 11-10-2019 End: 11-10-2019 Patient encounter procedure LIU [facility] Start: 11-10-2019 End: 11-10-2019 Subsequent hospital visit by physician Liu Jackson Work Phone: [facility] Comment on above: Acute medial meniscu s tear of left knee, initial encounter (Primary Dx) Start: 11-06-2019 End: 11-11-2019 Patient encounter procedure ANAYA HORTON [facility] Start: 11-06-2019 End: 11-10-2019 Subsequent hospital visit by physician Alexa Covid19 Pat Screening Schedule [facility] Pre-Admit Testing Start: 11-02-2019 End: 11-06-2019 Patient encounter procedure MARGARITA Gallardo [facility] Start: 11-02-2019 End: 11-06-2019 Subsequent hospital visit by physician Mary Pat Rm 2 [facility] Pre-Admit Testing Start: 10-27-2019 End: 10-30-2019 Patient [facility] Start: 10-27-2019 End: 10-29-2019 Subsequent hospital visit by physician Alexa Mri Rm 119 [facility] Comment on above: Effusion of left kne e; Injury of left knee, subsequent encounter Start: 09-29-2019 End: 10-02-2019 Patient [facility] [facility] Start: 09-29-2019 End: 10-01-2019 Subsequent hospital visit by physician Alexa X[facility] Comment on above: Acute pain of left k nee Start: 09-29-2019 End: 09-29-2019 Patient encounter procedure KASH GRIER [facility] Start: 09-28-2019 End: 09-28-2019 Subsequent hospital visit by physician Margarita GARCÍA [place] [facility] Comment on above: Gout of foot, unspec ified cause, unspecified chronicity, unspecified laterality Start: 12-09-2018 End: 12-09-2018 Subsequent hospital visit by physician Margarita GARCÍA [place] [facility] Comment on above: Gouty arthritis of r ight foot Start: 11-05-2018 End: 11-05-2018 Subsequent hospital visit by physician Margarita GARCÍA [place] [facility] Comment on above: Essential hypertensi on; Prostate cancer screening Procedures Date Procedure Procedure Detail Performing Clinician Start: 05-01-2023 Adult depression scr eening assessment Hunter Robins APRN-GORE SEAMER Work Phone: Start: 12-14-2022 Adult depression scr eening assessment Hunter Robins PLUSH CUTTER-[employer]ER Work Phone: Start: 06-04-2021 Adult depression scr eening assessment Megan Interiano MD Work Phone: Start: 12-23-2020 Echocardiography Colten Barnard Fidel Work Phone: Start: 05-04-2020 Assay of troponin quantitative Shivaprasad K Gurjit Work Phone: Start: 05-03-2020 Radiologic exam ches t 2 views Shivaprasad K Gurjit Work Phone: Start: 05-03-2020 Assay of thyroid sti mulating hormone tsh Shivaprasad K Gurjit Work Phone: Start: 05-03-2020 Blood count complete automated Shivaprasad K Gurjit Work Phone: Start: 05-03-2020 Comprehensive metabo lic panel Shivaprasad K Gurjit Work Phone: Start: 05-03-2020 Lipid panel Shivaprasa d K Gurjit Work Phone: Start: 11-10-2019 DISCHARGE PATIENT SHIVA HERNÁNDEZ GURJIT Start: 11-10-2019 BEDREST SHIVAPRASA D GURJIT Start: [...] w/le ast 12 lds i&r only Anil H Antonio Work Phone: Start: 11-02-2019 EKG REPORT Hpf Scanni ng Start: 11-02-2019 Basic metabolic pane l calcium total Anil H Antonio Work Phone: Start: 11-02-2019 Blood count complete auto&auto difrntl wbc Anil H Antonio Work Phone: Start: 10-27-2019 Mri any jt lower ext rem w/o contrast matrl SHIVAPRASAD GURJIT Start: 10-27-2019 Mri any jt lower ext rem w/o contrast matrl Patria Quiñones Work Phone: Start: 09-29-2019 Radiologic examinati on knee 3 views SHIVAPRASAD GURJIT Start: 09-29-2019 Radiologic examinati on knee 3 views Kash Grier Work Phone: Start: 09-28-2019 Assay of blood/uric acid KASH FRANCINERISHABH Start: 09-28-2019 Assay of blood/uric acid Kashcristiano Grier Work Phone: Start: 12-09-2018 Assay of blood/uric acid Kash Grier Work Phone: Start: 11-05-2018 [object Object] Shivapr kay Gurjit Comment on above: The Cole ECLIA as say is used. Results obtained with different assay methods cannot be used interchangeably. Start: 11-05-2018 Blood count complete automated Margarita Maxwell Work Phone: Start: 11-05-2018 Comprehensive metabo lic panel Rosd Paulina Maxwell Work Phone: Start: 11-05-2018 Lipid panel Ros d Paulina Maxwell Work Phone: Start: 11-05-2018 PSA screening Brendavapras ad Paulina Maxwell Work Phone: Decompression of med trudy nerve Colten Gordon Work Phone: History of percutane ous transluminal coronary angioplasty History of PTCA Colten Gordon Work Phone: Leg repair Colten barnard Work Phone: Comment on above: tibial plateau screw s; Nasal sinus procedure Colten Gordon Work Phone: Operative procedure on ankle Colten Gordon Work Phone: Operative procedure on knee Colten Gordon Work Phone: Procedure on back Colten conway Work Phone: Plan of Treatment Date Care Activity Detail Author Start: 06-21-2025 Screening for malign ant neoplasm of colon [facility] Start: 05-03-2025 Lipid panel Lipid screen [facility] Work Phone: Start: 04-28-2025 Hepatitis C screening Hepatitis C sc [facility] Work Phone: Comment on above: Postponed from 07/08 (Patient Refused) Start: 04-28-2025 HIV screening HIV screen [facility] Work Phone: Comment on above: Postponed from 07/08 (Patient Refused) Start: 05-01-2024 Adult BMI Screening Adult BMI Screen [facility] Start: 05-01-2024 [facility] Start: 05-01-2024 Tobacco Screening Tobacco Screening [facility] Start: 12-23-2023 Tobacco Counseling Tobacco Counselin g [facility] Comment on above: Postponed from 07/08 (Not Indicated) Start: 12-18-2023 Adult BMI Screening Adult BMI Screen ing [facility] Start: 12-18-2023 Tobacco Screening Tobacco Screening [facility] Start: 12-15-2023 Depression Screening Depression Scre ening [facility] Start: 11-06-2023 Lipid panel Lipid screen [facility] Start: 11-06-2023 Lipid screen Lipid screen [facility] Start: 06-09-2023 Administration of varicella zoster vaccine Zoster (Shingles) Vaccine (1 of 2) [facility] Comment on above: Postponed from 07/08 (Patient Refused) Start: 06-09-2023 DTaP,Tdap and Td Vaccines (1 - Tdap) DTaP,Tdap and Td Vaccines (1 - Tdap) [facility] Comment on above: Postponed from 07/08 (Patient Refused) Start: 06-02-2023 Influenza vaccination Influenza Vacc ine [facility] Comment on above: Postponed from 11/02 (Patient Refused) Start: 05-01-2023 End: 05-01-2023 Patient encounter procedure 05/01/2023 10:30 AM EST Office Visit [facility] Internal Medicine - Family Medicine [address] [place] [address] Hunter Robins, PL[employer] C[employer] SEAMER [address] [facility] [address] [address] [facility] - [facility] Start: 07-13-2022 FUV, Provider: Leonid Figueredo, Status: Pen, Time: 9:00 AM FUV, Provider: Leonid Figueredo, Status: Pen, Time: 9:00 AM [place] [address] DO Work Phone: Start: 06-04-2022 Adult depression screening assessment DEPRESSION SCREENING [facility] Start: 11-02-2021 Influenza vaccination INFLUENZ A (Season Ended) [facility] Start: 10-27-2021 FUV, Provider: Leonid Figueredo, Status: Pen, Time: 2:50 PM FUV, Provider: Leonid Figueredo, Status: Pen, Time: 2:50 PM [facility] Work Phone: Start: 05-03-2021 Creatinine measurement Creatinine mo [facility] Work Phone: Start: 05-03-2021 Potassium monitoring Potassium monit [facility] Work Phone: Start: 04-28-2021 Influenza vaccination Flu vaccine (# 1) [facility] Work Phone: Comment on above: Postponed from 11/02 (Patient Refused) Start: 04-28-2021 Pneumococcal 0-64 ye ars Vaccine (1 of 1 - PPSV23) Pneumococcal 0-64 years Vaccine (1 of 1 - PPSV23) [facility] Work Phone: Comment on above: Postponed from 07/08 (Patient Refused) Start: 03-30-2021 FUV, Provider: Rachel Stacy, Status: Pen, Time: 4:30 PM FUV, Provider: Rachel Stacy, Status: Pen, Time: 4:30 PM [facility] 127 DO Work Phone: Start: 12-27-2020 FUV, Provider: Kalie Lebron, Status: Pen, Time: 1:00 PM FUV, Provider: Kalie Lebron, Status: Pen, Time: 1:00 PM [facility] [address] [place] Work Phone: Start: 11-01-2020 Creatinine measurement Creatinine mo [facility] Start: 11-01-2020 Potassium monitoring Potassium monit [facility] [place] Start: 10-05-2020 Shingles Vaccine (1 of 2) Shingles Vaccine (1 of 2) [place] Comment on above: Postponed from 07/08 (Patient Refused) Start: 2020 PROSTATE CANCER SCREENING DISCUSSION PROSTATE CANCER SCREENING DISCUSSION [facility] Start: 05-26-2020 End: 05-26-2020 Office Visit 05/26/2020 Office Visit Primary Care Margarita Maxwell MD [address] [place] [address] [phone] [facility] Start: 12-16-2019 End: 12-16-2019 Office Visit 12/16/2019 Office Visit Family Medicine Kash Grier MD [address] [place] [address] [phone] Kash Grier MD [facility] Start: 12-08-2019 End: 12-08-2019 Office Visit 12/08/2019 Office Visit Primary Care Patria Quiñones CPNP [address] [place] [address] [phone] [facility] Start: 11-23-2019 End: 11-23-2019 Office Visit 11/23/2019 Office Visit Orthopedic Surgery Liu Jackson MD [address] [id number] [facility] Start: 11-10-2019 End: 11-10-2019 Hospital Encounter [facility] Comment on above: KNEE ARTHROSCOPY WIT H PARTIAL MEDICAL MENISECTOMY Start: 11-06-2019 End: 11-06-2019 Appointment 11/06/2019 Appointment Pre-Admission Testing [facility]-Admit Testing Start: 11-06-2019 Creat[place] Start: 11-06-2019 Creatinine monitoring Creatinine mon itoring [place] Start: 11-06-2019 Potassium monitoring Potassium monit [place] Start: 11-03-2019 Influenza vaccination Flu vaccine (# 1) [place] Start: 11-02-2019 End: 11-02-2019 Appointment 11/02/2019 Appointment Pre-Admission Testing [facility] Start: 10-31-2019 DTaP/Tdap/Td vaccine (1 - Tdap) DTaP/Tdap/Td vaccine (1 - Tdap) [place] Comment on above: Postponed from 07/08 (Patient Refused) Start: 10-31-2019 HIV screen HIV screen [place], [place] Comment on above: Postponed from 07/08 (Patient Refused) Start: 10-31-2019 [facility] [place] Comment on above: Postponed from 07/08 (Patient Refused) Start: 10-31-2019 Pneumococcal 0-64 ye ars Vaccine (1 of 1 - PPSV23) Pneumococcal 0-64 years Vaccine (1 of 1 - PPSV23) [place] Comment on above: Postponed from 07/08 (Patient Refused) Start: 10-06-2019 End: 10-06-2019 Office Visit 10/06/2019 Office Visit Primary Care Patria Quiñones CPNP [address] [place] [address] [phone] [facility] Start: 09-29-2019 End: 09-29-2019 Office Visit 09/29/2019 Office Visit Family Medicine Patria Quiñones CPNP [address] [place] [address] [phone] Kash Grier [facility] Start: 05-02-2019 Shingles Vaccine (1 of 2) Shingles Vaccine (1 of 2) [place] Comment on above: Postponed from 07/08 (Patient Refused) Start: 01-15-2019 End: 01-15-2019 Office Visit 01/15/2019 Office Visit Primary Care Margarita Maxwell MD [address] [place] [address] [facility] Start: 12-15-2018 End: 12-15-2018 Office Visit 12/15/2018 Office Visit Family Medicine Kash Grier MD [address] [place] [address] [phone] Kash Grier [facility] Start: 11-02-2018 Influenza vaccination Flu vaccine (# 1) [place] Start: 07-09-2015 Colon cancer screen colonoscopy Colon cancer screen colonoscopy [place] Start: 07-09-2015 Screening for malign ant neoplasm of colon Colon cancer screen colonoscopy [place] Start: 07-09-2015 Shingles Vaccine (1 of 2) Shingles Vaccine (1 of 2) [place] Start: 07-09-2015 SHINGRIX VACCINE (1 of 2) SHINGRIX VACCINE (1 of 2) [facility] Start: 2010 COLOGUARD (FIT-DNA) COLOGUARD (FIT-D NA) [facility] Start: 2010 Colonoscopy COLONOSCOPY [facility] Start: 2010 COLORECTAL CANCER SCREENING COLORECTAL CANCER SCREENING [facility] Start: [address] COLONOGRAPHY [facility] Start: 2010 DIABETES SCREEN DIABETES SCREEN [facility] Start: 2010 FECAL OCCULT BLOOD FECAL OCCULT BLOO D [facility] Start: 2010 SIGMOIDOSCOPY SIGMOIDOSCOPY [facility] Start: 2005 Diabetes screen Diabetes screen [place], [place] Start: 2005 Lipid screen Lipid screen [place] Start: 2000 LIPID SCREEN LIPID SCREEN [facility] Start: 1984 DTaP/Tdap/Td vaccine (1 - Tdap) DTaP/Tdap/Td vaccine (1 - Tdap) [place] Start: 1984 Urine microalbumin profile DTAP,TDAP,TD (1 - Tdap) [facility] Start: 07-09-1983 Adult BMI Follow Up Plan Adult BMI Follow Up Plan [facility] Start: 07-09-1983 HEPATITIS C SCREENING HEPATITIS C SC PERICO [facility] Start: 07-09-1983 HIV SCREENING HIV SCREENING [facility] Start: 1980 HIV screening [facility] [place] Start: 07-09-1971 Pneumococcal 0-64 ye ars Vaccine (1 of 1 - PPSV23) Pneumococcal 0-64 years Vaccine (1 of 1 - PPSV23) [place] Start: 1970 COVID-19 VACCINE (1) COVID-19 VACCIN E (1) [facility] Start: 1965 Creatinine monitoring Creatinine mon neo [place] Start: 1965 Potassium monitoring Potassium monit carlitos [place] End: 11-06-2019 COVID-19 COVID-19 Lab Routine One Time for 1 Occurrences starting 11/06/2019 until 11/06/2019 [place] Comment on above: One Time for 1 Occur rences starting 11/06/2019 until 11/06/2019 End: 07-06-2022 Ct cervical spine w/o contrast material CT CERVICAL SPINE WO IVCON Radiology Routine Spinal stenosis of cervical region 1 Occurrences starting 06/06/2021 until 07/06/2022 [facility] Work Phone: Comment on above: 1 Occurrences starti ng 06/06/2021 until 07/06/2022 Oxygen therapy [[facility] Data Set] Initiate Oxygen Therapy Protocol Respiratory Care Routine Daily until discontinued starting 11/10/2019 [place] Comment on above: Daily until disconti nued starting 11/10/2019 Phase I & II - meter ed glucose Phase I & II - metered glucose Point of Care Testing Routine As Needed until discontinued starting 11/10/2019 [place] Comment on above: As Needed until disc ontinued starting 11/10/2019 End: 07-06-2022 Radex spine cervical 4 or 5 views XR CERV OTHER 4V AP/LAT/FLX/EXT Radiology Routine Cervical spondylosis with myelopathy 1 Occurrences starting 06/06/2021 until 07/06/2022 [facility] Work Phone: Comment on above: 1 Occurrences starti ng 06/06/2021 until 07/06/2022 Immunizations Immunization Date Immunization Notes Care Provider Clem ortega 11-04-2019 influenza, seasonal, injectable Colten Gordon Work Phone: [facility] [address] [place] Work Phone: 11-03-2019 influenza, seasonal, injectable [facility] Work Phone: [facility] 11-03-2019 influenza virus vaccine, unspecified formulation Hunter Robins [employer] Work Phone: [facility] 01-21-2019 influenza virus vaccine, unspecified formulation [facility] [address] [facility] 01-21-2019 influenza, injectabl e, quadrivalent, contains preservative Shivaprasad Gurjit [facility] 01-02-2019 influenza, injectabl e, quadrivalent, contains preservative Colten G Furlong Work Phone: [facility] 600 DO Work Phone: 12-02-2016 influenza, injectabl e, quadrivalent, preservative free [facility] [address] [facility] Payers Date Payer Category Payer Worker's Compensation 2021 Unknown [employer] SS PPO [id number] 2021-Present [phone] [id number] [place] [id number] PPO [id number] 2018 Unknown BC[place] P PO xxxxxxxxxxxx 2018-Present [address] [place] [address] xxxxxxxxxxxx [id number]. [id number] 2018 Unknown [place] P PO [id number] 2018-Present [address] [place] [address] [id number]. [id number] 2015 Unknown [id number] 1.2.840.259109.1.13.239.2. 7.3.405828.315 2015 Unknown 1965 Unknown [id number] 2.16.840.1.965817.3.579.2. 175 1965 Unknown [id number] 2.16.840.1.055184.3.579.2. 175 1965 Unknown [id number] 2.16.840.1.211248.3.579.2. 175 1965 Unknown [id number] 2.16.840.1.876248.3.579.2. 176 1965 Unknown [id number] 2.16.840.1.675336.3.579.2. 176 1965 Unknown [id number] 2.16.840.1.413907.3.579.2. 176 1965 Unknown [id number] 2.16.840.1.999927.3.579.2. 176 1965 Unknown [id number] 2.16.840.1.508155.3.579.2. 176 1965 Unknown [id number] 2.16.840.1.535563.3.579.2. 176 1965 Unknown [id number] 2.16.840.1.026569.3.579.2. 176 1965 Unknown [id number] 2.16.840.1.217190.3.579.2. 176 1965 Unknown [id number] 2.16.840.1.368500.3.579.2. 176 1965 Unknown [id number] 2.16.840.1.896697.3.579.2. 593 1965 Unknown [id number] 2.16.840.1.445180.3.579.2. 593 1965 Unknown [id number] 2.16.840.1.484221.3.579.2. 593 1965 Unknown [id number] 2.16.840.1.515551.3.579.2. 593 1965 Unknown [id number] 2.16.840.1.022286.3.579.2. 593 1965 Unknown [id number] 2.16.840.1.623263.3.579.2. 593 1965 Unknown [id number] 2.16.840.1.608978.3.579.2. 593 1965 Unknown [id number] 2.16.840.1.248653.3.579.2. 593 1965 Unknown [id number] 2.16.840.1.489359.3.579.2. 593 1965 Unknown [id number] 2.16.840.1.985490.3.579.2. 593 1965 Unknown [id number] 2.16.840.1.478216.3.579.2. 593 1965 Unknown [id number] 2.16.840.1.259749.3.579.2. 593 1965 Unknown [id number] 2.16.840.1.752962.3.579.2. 593 1965 Unknown [id number] 2.16.840.1.344127.3.579.2. 196 1965 Unknown [id number] 2.16.840.1.824013.3.579.2. 1286 1959 Unknown [id number] 1959 Unknown [id number] Social History Date Type Detail Facility Start: 03-04-1978 End: 12-07-2022 Tobacco smoking status [facility] Current every day smoker [facility] Start: 12-08-2018 End: 04-14-2020 Cigarettes smoked current (pack per day) - Reported [facility] Comment on above: 1 ppd; Start: 12-08-2018 End: 04-14-2020 Alcohol intake Yes [facility] Start: 1965 Sex Assigned At Not on file [facility] [employer] Start: 09-16-2019 End: 12-07-2022 Tobacco use and exposure Never used [facility] [employer] [place] Start: 09-16-2019 End: 05-01-2023 Alcohol intake Current drinker of alcohol (finding) [place] Exposure to SARS-CoV -2 (event) Not sure [place] Start: 11-02-2019 Alcohol Comment very rare [place] Start: 06-06-2021 Alcohol intake Ex-drinker (finding) [facility] Start: 1965 Sex Assigned At Male C [facility] Start: 03-04-1978 History of tobacco use Cigarette Smo ker [facility] Adolescent depressio n screening assessment 5 [facility] Start: 03-23-2022 [facility] Goals Date Patient Goal Desired Activity /State Personal health goal Comment on above: Formatting of this n ote might be different from the original. Evaluation of progress towards goal: safe transition to home with support of pt's and resumption with outpatient PT. Clinical Notes 11-18-2020 to 05-01-2023 [facility] - 05/01/2023 10:30 AM ESTTelephone Encounter - Hunter Robins [facility] - 04/01/2023 12:18 AM ESTTelephone Encounter - Hunter Robins, [facility] - 04/01/2023 12:18 AM EST Note Date & Type Note Facility 05-01-2023 History of Present illness Narrative Images from the original note were not included. [address] [place] [address] Patient: Ashok Doss Date of : 1965 Encounter Date: 05/01/2023 History of Present Illness: The patient is a 57 y.o. male, an established patient, and is here for Chief Complaint Patient presents with Hyperlipidemia Hypertension . HPI Leif presents today with his to follow-up on his hypertension and hyperlipidemia with routine labs. He recently received a steroid injection in his left hip and he feels like he is gaining weight because his appetite has increased. He sometimes uses a cane for his chronic left hip pain from a previous workman's comp injury that he will eventually need surgery for. Unfortunately workman's comp is denying paying for surgery until surgeon changes his wording to a more severe type of pain and uses different working on the pressing need for surgery according to patient. Patient would also like to get a parking placard like his has in case he is driving alone. Patient is requesting to see Urology due to an incidental finding of enlarged prostate on CTA March of last year. He is also having to get up and void 1-2 times a night which bothers him. His last PSA drawn in this office was normal. Patient will like to see [facility]. Patient also has a new skin lesion on his left calf that has been growing in size for the last several months. He would like to have referral to Dermatology to take a look or remove this. Problem List Items Addressed This Visit Cardiovascular and Mediastinum Essential hypertension - Primary Relevant Orders Comprehensive metabolic panel (Completed) Nervous and Auditory Chronic hip pain, left Relevant Orders Disability/Handicap Placard Other Hyperlipemia Relevant Orders Lipid profile (Completed) Other Visit Diagnoses Enlarged prostate Relevant Orders Ambulatory referral to Urology Skin lesion of left lower limb Relevant Orders Ambulatory referral to Dermatology (Non[facility]) Past Medical, Family, and Social History Update: The following portions of the patient's history were reviewed and updated as appropriate: allergies, current medications, past family history, past medical history, past social history, past surgical history and problem list. Past Medical History: Diagnosis Date DVT (deep venous thrombosis) [facility] x2 Headache Hyperlipidemia Myocardial infarction ([facility]) Past Surgical History: Procedure Laterality Date ANKLE SURGERY Left CARDIAC CATHETERIZATION CARPAL TUNNEL RELEASE Right COLONOSCOPY N/A 12/07/2022 Performed by Nasir Richey DO at [facility] SURGERY Right knee, tibia KNEE SURGERY LUMBAR LAMINECTOMY SINUS SURGERY Current Outpatient Medications Medication Sig Dispense Refill atorvastatin (LIPITOR) 80 mg tablet Take 1 tablet (80 mg total) by mouth in the morning. 90 tablet 1 baclofen (LIORESAL) 10 mg tablet Take 1 tablet (10 mg total) by mouth 3 (three) times a day. divalproex (DEPAKOTE) 125 mg EC tablet TAKE 1 TABLET BY MOUTH EVERY DAY 90 tablet 0 HYDROcodone-acetaminophen (NORCO) 5-325 mg per tablet Take 1 tablet by mouth 2 (two) times a day as needed. lisinopril-hydroCHLOROthiazide (PRINZIDE,ZESTORETIC) 20-12.5 mg per tablet Take 1 tablet by mouth in the morning. metoprolol tartrate (LOPRESSOR) 25 mg tablet TAKE 1 TABLET (25 MG) BY MOUTH IN THE MORNING AND AT BEDTIME 180 tablet 1 nicotine (NICODERM CQ) 21 mg/[address] 1 patch on the skin in the morning. 30 patch 2 nitroglycerin (NITRO-TIME ORAL) Take by mouth. sennosides-docusate sodium (SENOKOT-S) 8.6-50 mg Take 2 tablets by mouth nightly. 30 tablet 2 No current facility-administered medications for this visit. (All medications reviewed and updated by provider since last office visit or hospitalization) Allergies: Patient has no known allergies. Tobacco History: Social History Tobacco Use Smoking Status Every Day Packs/day: 1 Types: Cigarettes Start date: 1978 Smokeless Tobacco Never (If patient a smoker, smoking cessation counseling offered) Social History: Social History Substance and Sexual Activity Alcohol Use Yes Comment: rarely Review of Systems: Review of Systems Constitutional: Negative for fatigue and unexpected weight change. Respiratory: Negative. Cardiovascular: Negative. Gastrointestinal: Negative. Genitourinary: Getting up 1-2 times a night to void Musculoskeletal: Positive for arthralgias, back pain, gait problem and myalgias. Negative for neck pain and neck stiffness. Skin: Positive for color change. New skin lesion left calf Psychiatric/Behavioral: Negative for dysphoric mood, self-injury, sleep disturbance and suicidal ideas. The patient is not nervous/anxious. Physical Exam: BP 138/72 (BP Site: Left Arm, BP Postition: Sitting) Pulse 68 Temp 36.6 C (97.9 F) (Tympanic) Ht 180.3 cm (5' 11 ) Wt 125.2 kg (276 lb) SpO2 95% BMI 38.49 kg/m Physical Exam Vitals reviewed. 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 Constitutional: Appearance: Normal appearance. He is obese. HENT: Head: Normocephalic and atraumatic. Right Ear: Ear canal and external ear normal. A middle ear effusion is present. Left Ear: Tympanic membrane, ear canal and external ear normal. Nose: Nose normal. Mouth/Throat: Mouth: Mucous membranes are moist. Eyes: Pupils: Pupils are equal, round, and reactive to light. Neck: Vascular: No carotid bruit. Cardiovascular: Rate and Rhythm: Normal rate and regular rhythm. Heart sounds: Normal heart sounds. Pulmonary: Effort: Pulmonary effort is normal. Breath sounds: Normal breath sounds. Abdominal: General: Bowel sounds are normal. Palpations: Abdomen is soft. Tenderness: There is no abdominal tenderness. Musculoskeletal: Right lower leg: Edema (+1 pitting edema) present. Skin: General: Skin is warm. Capillary Refill: Capillary refill takes less than 2 seconds. Comments: Dry, crusted skin colored papule to left calf as shown above Neurological: General: No focal deficit present. Mental Status: He is alert and oriented to person, place, and time. Psychiatric: Mood and Affect: Mood normal. Behavior: Behavior normal. Assessment and Plan: Ashok was seen today for hyperlipidemia and hypertension. Diagnoses and all orders for this visit: Essential hypertension - Comprehensive metabolic panel; Future Chronic hip pain, left - Disability/Handicap Placard Mixed hyperlipidemia - Lipid profile; Future Enlarged prostate - Ambulatory referral to Urology; Future Skin lesion of left lower limb - Ambulatory referral to Dermatology (Non-[facility]); Future Follow-up: Blood pressure is very near goal, no changes. Will get cholesterol panel, patient is taking high-dose Lipitor. Will get urology referral as requested for incidental finding of enlarged prostate and nocturia. Patient has new and changing skin lesion to a sun-exposed area, will refer to Dermatology for removal. Patient needs parking placard as he has chronic left hip problems from an injury and occasionally uses assistive devices and can not walk more than 200 ft without stopping to rest. This was given for 2 years as he will eventually need surgery. Follow-up in 6 months for wellness visit. YAO KEEN APRN-CNP 05/02/232050 documented [facility] 04-01-2023 Miscellaneous Notes Due for either his well visit or CV - please set up documented in this encounter [facility] 04-01-2023 Telephone encounter Note Due for either his well visit or CV - please set up [facility] 07-31-2022 Note CONSULTATION CONSULTATION DATE: 07/31/2022 CHIEF [...] mg pills, two pills daily p.r.n. and Thurmond 5 mg b.i.d. p.r.n. As part of providing excellent, safe, comprehensive care, the following was completed at our patient's visit: 1. A medication reconciliation and review to ensure accurate knowledge of current/active medications, including asking our patients to inform us about any semy-fle-jzgspox medications or herbal remedies/nutritional supplements/alternative remedies. 2. [...] options with their primary care provider. [facility] 06-14-2022 Note CONSULTATION CONSULTATION DATE: 06/14/2022 [...] sooner if needed. We did refill his Thurmond. He takes 5 mg pills, one pill b.i.d. He did report this medicine does improve his quality of life, level of function and sleep pattern. As part of providing excellent, safe, comprehensive care, the following was completed at our patient's visit: 1. A medication reconciliation and review to ensure accurate knowledge of current/active medications, including asking our patients to inform us about any todp-svw-aliekyt medications or herbal remedies/nutritional supplements/alternative remedies. 2. [...] options with their primary care provider. [facility] 05-08-2022 Note Subjective Patient ID: Ashok Doss is a 56 y.o. male who presents as a new patient referral from [facility] in [place] for acute deep right calf/soleal muscle vein [...] past 36 hour(s)). No follow-ups on file. [facility] 03-15-2022 Note CONSULTATION CONSULTATION DATE: 03/15/2022 [...] with his leg elevated. Current medications include Thurmond 5/325 b.i.d. and tizanidine p.r.n. Patient's REVIEW [...] postoperatively Orthopedics plans on keeping him on Thurmond 5/325 b.i.d. I do worry that his post-op pain will not be adequately relieved with Thurmond, and I did encourage the patient to talk with his Orthopedics' office to discuss this. We will see the patient in the office in three months' time unless otherwise indicated. [facility] 01-16-2022 Note CONSULTATION CONSULTATION DATE: 01/16/2022 [...] recently came off. The patient currently takes Thurmond 5/325 daily, tizanidine 4 mg q.h.s. Activities aggravate the patient's pain. The patient reports standing too long, walking too long, ADLs aggravate the pain. Heat mitigates the patient's pain. Pushing, pulling, lifting aggravate the pain. Laying down mitigates the pain. The patient takes Thurmond 5/325 one tablet p.o. daily. He finds [...] left foot. PLAN: We will increase the Thurmond to 5/325 b.i.d. The patient will also start aquatic program. We will schedule the patient for a rhizotomy, radiofrequency ablation of the dorsal median rami at the level of L2, 3 and L4, 5; given that the patient has had successful medial branch blocks on two separate occasions. CC: Elisabeth Galvan NP [facility] 12-28-2021 Note CONSULTATION CONSULTATION DATE: 12/28/2021 This [...] increased stiffness in his back. Medications include Thurmond 5/325 q. day p.r.n. and Tizanidine 4 [...] followed up in the clinic thereafter. [facility] 10-26-2021 Note CONSULTATION CONSULTATION DATE: 10/26/2021 [...] 18, which is one year since his WV. He has not been able to gain approval to be off the Brilinta for interventional procedures. He is interested, however, in moving forward with procedures once the Brilinta is discontinued. He has seen Neurosurgery at the [facility] and they would like to do [...] discontinue Tylenol #3 and start him on Thurmond 5/325 daily p.r.n. Vitamin importance and nutrition were discussed as well. Patient agrees to move forward with this plan and be followed up in the clinic post his #1 procedure. [facility] 07-04-2021 Miscellaneous Notes Neuro SPINE CARE COORDINATION QUICK NOTE Called patient to discuss scheduling for surgery. States he is not ready to schedule but will call back when he is. Also advised it best for recovery to work on quitting smoking. documented in this encounter [facility] 06-06-2021 Note HNO ID: [id number] Author: Megan Interiano MD Service: ? Author Type: Physician Type: Progress Notes Filed: 06/15/2021 4:22 PM Note Text: SPINE SURGERY NEW PATIENT PCP: No primary care provider on file. REFERRING PROVIDER: Ashia Bermeo APRN. GORE SEAMER SUBJECTIVE HISTORY OF PRESENT ILLNESS: Ashok Doss is a 55 year old male presenting alone. CHIEF COMPLAINT: mid back pain, LE weakness Previously seen by Ashia Bermeo CNP regarding subjective weakness in the arms and legs. Hx of previous lumbar laminectomy approx. 20 years ago in [place]. Did well post-op with resolution of sciatica. Has had chronic low back pain. Over the last 6 months he describes episodes of his legs feeling like rubber . Would occur randomly. Over the last 3 months he's started to experience this in the arms as well. 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 [facility] 06-06-2021 History of Present illness Narrative [...] lumbar laminectomy approx. 20 years ago in [place]. Did well post-op with resolution of sciatica. Has had chronic low back pain. Over the last 6 months he describes episodes of his legs feeling like rubber . Would occur randomly. Over the last 3 months he's started to experience this in the arms as well. 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 I examined the patient and evaluated all available films and pertinent documents. We discussed the case and I agree with the plans as outlined in this note. As above, Ashok Doss is a 55 year old male with history of lumbar laminectomy about 20 years ago in [place] who presents for evaluation of mid back pain and LE weakness. Over the last 6 months he describes episodes of his legs feeling like rubber . Would occur randomly. Over the last 3 months he's started to experience this in the arms as well. 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 Electronically Signed:lawanda Leos, June 06, 2021 10:51 AM I agree with the Chief Complaint, ROS, and Past Histories independently gathered by the clinical business support liaison and the remaining scribed note accurately describes my personal service to the patient. Staff note: 1. PCSM, plan for C4-T2 fusion and decompression, RBAEO reviewed in comprehensive detail, all questions answered to stated satisfaction Megan Interiano MD documented in this encounter [facility] 04-24-2021 Note HNO ID: [id number] Author: Ashia Bermeo APRN.GORE SEAMER Service: ? Author Type: Nurse Practitioner Type: [...] lumbar laminectomy approx. 20 years ago in [place]. Did well post-op with resolution of sciatica. [...] Distances ANTIPLATELET OR ANTICOAGULATION STATUS: Yes Previous WV PREVIOUS SPINAL SURGERY: SURGERY #1: L5-S1 Laminectomy in [place] approx. 20 years ago There is no [...] vision or hearing. CARDIOVASCULAR: Hypertension and previous [place] RESPIRATORY: Denies SOB, sputum production, and hemoptysis. [...] day PHQ-9 Levels: (more content not included)... [facility] 04-14-2021 Note HNO ID: [id number] Author: Sonja Moser PA-C Service: ? Author Type: Physician Truck Driver Rubbish Collector Type: Progress Notes Filed: 04/14/2021 3:29 PM Note Text: Per Triage: Ashok Doss is a 55 year old male that requests evaluation of spine. Per review, they have symptoms of back pain, neck pain, weakness, tingling in legs. Prior spine surgery: Several years ago (20) at a [facility] CMT: Muscle relaxer Studies (Reports unless [...] is available for review. Sonja Moser PA-C [facility] 04-12-2021 Note HNO ID: [id number] Author: Macario Garcia Service: ? Author Type: ? Type: Progress Notes Filed: 04/14/2021 3:29 PM Note Text: Patient name: Ashok Doss Are you being referred by a [facility] for Spine Health Provider or Pain Management Provider at [facility]? No If answer is YES please schedule [...] the facility where the MRI/CT/myelogram was completed: [facility] Address: [address] [place] [address] MRI/CT/myelogram viewable in Epic: No If not, please provide [phone] to fax in imaging reports for review. [...] completed: Several years ago (20) at a [place] [facility] Could not recall any additional information at the time of the call Additional Comments [phone] [facility] 11-20-2020 Note Send Summary: Discharge Summary Providers: Provider RoleProvider Name PrimaryRequired, No Pcp ConsultingJosé Miguel Posey ConsultingRachel Stacy ReferringRequired, No Pcp AttendingRachel Stacy Note Recipients: Rachel Stacy MD - [id number] [preferred] Required, No PcpMD Discharge Summary: Admission Date: .18-Nov-2020 18:57:00 Discharge Date: 20-Nov-2020 Attending Physician at Discharge: Rachel Stacy Admission Reason: Inferior Wall STEMI(1) Final Discharge Diagnoses: Acute inferior ST elevation WV. Procedures: Left heart Catheterization, selective coronary angiography, left ventriculography, LV ao pullback, PCI and drug-eluting stent to the distal mid RCA, selective right common femoral angiography, Angio-Seal deployment. Condition at Discharge: stable Disposition at Discharge: Home Vital Signs: T PRBPSpO2 [id number]/7494% Date/Time11/20 11: 11: 20: 11: 11:20 Range(36.8C - 37C ) (70 - 87 ) (17 - 28 ) (132 - 165 )/ (66 - 82 ) (94% - 99% ) Highest temp of 37 C was recorded at 11/20 7:45 Date: Weight/Scale Type:Height: 18-Nov-2020 23:57325.7 kg 188 cm Physical Exam: Patient is [...] hour away, and will be seeking a chuck wagon cook closer to home, but will be seen at [facility] with me within 1 week to go [...] laboratory results: Troponin I, Serum Trending View [id number] 21:03:00 19-Nov-2020 13:00:00 19-Nov-2020 05:23:00 19-Nov-2020 00:54:00 [...] 12.8 International Normalized Ratio, Plasma 1.1 Coronavirus 2018, Screen Asymptomatic 18-Nov-2020 19:18:00 ResultValue Fluid Source Nasal, Nasopharyngeal Coronavirus 2019,PCR NOT DETECTED Reference Range: Not Detected . This test has received FDA Emergency Use Authorization (EUA) and has been verified by [facility]. This test is only authorized for the duration (more content not included)... [facility] 11-18-2020 Note History of Present I [...] Brilinta IV heparin, and [facility]. Code purple called was [...] 1 mg IV, and Bairon-Synephrine, with prompt congregation of heart rate and blood pressure. At [...] fluids Thank you, Sincerely, Rachel Stacy MD [facility] Comorbidities: Comorbidites: Comorbid Conditionshypertension Allergies: Allergy Status [...] Last Updated: 18-Nov-2020 20:21 by Rachel Stacy) [facility] 11-18-2020 Chief complaint Narrative - Reported ASHOK DOSS is being seen for a cardiovascular evaluation . testing results.ASHOK DOSS is a 55 year old male that presents to the [facility] with his for follow-up on testing. He follows with his primary chuck wagon cook Dr. Stacy and was added to my schedule today. He has a recent history of an [place] with cardiac catheterization 11/18/2020 with PCI and [...] see if cardiac rehabilitation is possible at [facility] that is closest to his home. [...] refill his sublingual nitro for him today.Testing hfylbpud84/22/2021 echocardiogram; LVEF 60 to 65%. Normal RV size and function. Trivial MR, trivial TR, RVSP 32 mmHg.12/23/2020 cardiac stress test; no exercise-induced chest discomfort or ST changes at 76% of MPHR.Assessment:1. CAD; with acute inferior ST elevation W[place] requiring cardiac catheterization 11/18/2020 with PCI and [...] software was used to prepare this document. [facility] 127 DO Work Phone: Evaluation note Diagnosis Cervical spondylosis with myelopathy- Primary Loss of balance Other symptoms involving nervous and musculoskeletal systems Spinal stenosis of cervical region Spinal stenosis in cervical region [facility] Diagnosis Migraine, unspecified, not intractable, without status migrainosus [facility] Essential hypertension- Primary Unspecified essential hypertension Chronic hip pain, left Mixed hyperlipidemia Enlarged prostate Hypertrophy of prostate without urinary obstruction and other lower urinary tract symptoms (LUTS) Skin lesion of left lower limb Unspecified disorder of skin and subcutaneous tissue [facility] System[facility] Present illness Narrative* Patient is seen by me for the first time. 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 He was taken to [place] where he had a coronary intervention and [...] the merits of lifestyle modification and exercise. -[facility] 600 DO Work Phone: History [...] in order to furtherimprove his hypertension and lipids.[facility] 250 DO Work Phone: InstructionsNot on filedocumented in this encounter [facility] SystemInstructionsNot on filedocumented in this encounter [facility] CenterInstructionsNot on filedocumented in this encounter [facility] CenterReason for referral (narrative)* Consultation (Routine) - Pending Review Specialty Diagnoses / Procedures Referred By Contac t Referred To Contact Dermatology Diagnoses Skin lesion of left lower limb Hunter Robins APRN-MARTY [address] [place] [address] Silviano Burroughs, DO [address] [place] [address] Referral ID Status Reason Start Date Expiration Date Visits Requested Visits Authorized [id number] Pending Review Specialty Services Required 05/01/2023 04/30/2024 1 1 * Consultation (Routine) - Pending Review Specialty Diagnoses / Procedures Referred By Contac t Referred To Contact Urology Diagnoses Enlarged prostate Hunter Robins APRNMARTY [address] [place] [address] Сергей Lucas MD [address] [place] [address] [place] [address] Referral ID Status Reason Start Date Expiration Date Visits Requested Visits Authorized [id number] Pending Review Specialty Services Required 05/01/2023 04/30/2024 1 1 * Misc (Routine) - Pending Review Specialty Diagnoses / Procedures Referred By Contac t Referred To Contact Diagnoses Chronic hip pain, left Procedures Disability/Handicap [facility] [address] [place] [address] Referral ID Status Reason Start Date Expiration Date V isits Requested Visits Authorized [id number] Pending Review 05/01/2023 04/30/2024 1 1 [facility] Assessments Diagnosis Gouty arthritis of right [...] for malignant neoplasm of prostate Advance Directives No Advanced Directives Records FoundDocuments on File Type Date Recorded Patient Motorcycle Builder Expl anation Advance Directives and Living Will Power of Production Support Developer Documents on File Type Date Recorded Patient Motorcycle Builder Expl anation ACP-Advance Directive ACP-Power of Production Support Developer Documents on File Type Date Recorded Patient Motorcycle Builder Expl anation ACP-Advance Directive ACP-Power of Production Support Developer Latest Code Status on File Code Status Date Activated Date Inactivated Comments Full Code 03/24/2022 9:21 AM 03/26/2022 5:36 PM Latest Code Status on File Code Status Date Activated Date Inactivated Comments Full Code 03/24/2022 9:21 AM 03/26/2022 5:36 PM Reason for Referral Status Reason Specialty Diagnoses / Procedures Referre d By Contact Referred To Contact Closed Radiology Diagnoses Effusion of left knee Injury of left knee, subsequent encounter Procedures MRI KNEE LEFT WO CONTRAST Patria Quiñones, CPNP [address] [place] [address] Specialty Diagnoses / Procedures Referred By Contac t Referred To Contact CT IMAGING Diagnoses Spinal stenosis of cervical region Procedures CT CERVICAL SPINE WO IVCON CT CERVICAL SPINE W/O CONTRAST MATERIAL Megan Interiano MD [address] [place] [address] Ct Imaging Referral ID Status Reason Start Date Expiration Date Visits Requested Visits Authorized [id number] Authorized Auto-Generat ed Referral 06/06/2021 07/06/2022 1 1 Specialty Diagnoses / Procedures Referred By Contac t Referred To Contact XR IMAGING Diagnoses Cervical spondylosis with myelopathy Procedures XR CERV OTHER 4V AP/LAT/FLX/EXT RADEX SPINE CERVICAL 4 OR 5 VIEWS Vivien Lawton PA-C [address] [place] [address] Xr Imaging Referral ID Status Reason Start Date Expiration Date Visits Requested Visits Authorized [id number] Authorized Auto-Generat ed Referral 06/06/2021 07/06/2022 1 [...] powder, deodorant, jewelry, piercings, perfume, makeup, nail cook islander, hair accessories, or hair spray on the [...] hospital. The Day of Surgery: Arrive at [facility] Surgery Entrance at the time directed by your surgeon and check in at the desk. If you have a living will or healthcare power of bomb squad commander, please bring a copy. You will be taken to the pre-op holding area where you will be prepared for surgery. A physical assessment will be performed by a nurse practitioner or laborer cook house. Your IV will be started and you [...] Instructions* Irish Meehan RN - 11/10/2019 [facility] Dr. Liu Jackson M.D. [phone] POST OPERATIVE DISCHARGE INSTRUCTIONS KNEE ARTHROSCOPY 1. Follow-up in office seven to ten days after surgery. Call for appointment if not already made. ([phone]). 2. Take pain medication as ordered. 3. [...] in this encounter Summary Purpose Family History No Family History Records FoundUnknown Family Member Name Dates Details Patent coronary [...] Procedures MRI KNEE LEFT WO CONTRAST Patria Quiñones, PADMINI [address] [place] [address] Status Reason Specialty Diagnoses / Procedures Referre d By Contact Referred To Contact Diagnoses Acute medial meniscus tear of left knee MEDIAL MENISCUS TEAR LEFT KNEE Procedures MO KNEE SCOPE,DIAGNOSTIC KNEE ARTHROSCOPY WITH PARTIAL MEDICAL MENISECTOMY Liu Jackson MD [address] [facility] [address] [place] [address] [facility] Reason Comments New Patient Reason Comments Schedule Surgery Reason Comments Med Refill Reason Comments Hyperlipidemia Hypertension (unrecognized sect ion and content) No Status Records FoundNo Status Records FoundNo Status Records FoundNo Status Records FoundNo Status Records FoundNo Status Records FoundNo Status Records FoundNo Status Records FoundNo Status Records Found INFORMATION SOURCE (unrecogn ized section and content) DATE CREATED AUTHOR 05/06/2020 [facility] DATE CREATED AUTHOR AUTHOR'S ORGANIZ ATION 05/07/2020 [facility] DATE CREATED AUTHOR AUTHOR'S ORGANIZ ATION 12/26/2020 [facility] DATE CREATED AUTHOR AUTHOR'S ORGANIZ ATION 07/06/2021 [facility] DATE CREATED AUTHOR AUTHOR'S ORGANIZ ATION 10/26/2021 [facility] DATE CREATED AUTHOR AUTHOR'S ORGANIZ ATION 08/10/2022 [facility] DATE CREATED AUTHOR AUTHOR'S ORGANIZ ATION 08/24/2022 [facility] DATE CREATED AUTHOR AUTHOR'S ORGANIZ ATION 10/18/2022 [facility] DATE CREATED AUTHOR AUTHOR'S ORGANIZ ATION 05/04/2023 [facility] Source Comments (unrecognize d section and content) In the event this informatio n is protected by the Federal Confidentiality of Alcohol and Drug Abuse Patient Records regulations: The Federal rules restrict any use of the information to criminally investigate or prosecute any alcohol or drug abuse patient.[facility] the event this information is protected by the Federal Confidentiality of Alcohol and Drug Abuse Patient Records regulations: The Federal rules restrict any use of the information to criminally investigate or prosecute any alcohol or drug abuse patient.[facility] Care Teams (unrecognized sec tion and content) Residential Care Officer Relationship Specialty Start Date End Date Colten Gordon DO [address], [place] [address] PCP - General Family Medicine 04/03/22 Residential Care Officer Relationship Specialty Start Date End Date Colten Gordon DO [address], [address] [place] [address] PCP - General Family Medicine 04/03/22 Residential Care Officer Relationship Specialty Start Date End Date Colten Gordon DO [address] [facility], [place] [address] PCP - General Family Medicine 04/03/22 FOR [...] BE BASED ON THE PRIMARY CLINICAL RECORDS. [facility] [facility]. provides no warranty or guarantee of the accuracy or completeness of information in this document.
[2023-06-17 08:00] VITALS: BP 151/81; PULSE 71; TEMP 36.8; O2SAT 95
[2023-06-17 08:39] VITALS: BP 150/73; BP 168/77; PULSE 76; PULSE 78; O2SAT 96
[2023-06-17] MEDS: TRIAMCINOLONE ACETONIDE 40 MG/ML VIAL INJ (08:41)
[2023-06-17] MEDS: BUPIVACAINE HCL 0.25% PF 25 MG/10 ML VIAL INJ (08:42)
[2023-06-17] MEDS: LIDOCAINE HCL 2% 400 MG/20 ML MDV 15 ML INJ (08:46)
--- NOTE | 2023-06-17 08:52 | P.ON_ITS ---
Date of procedure: 06/17/23 Pre-op diagnosis: Lumbar spondylosis Post-op diagnosis: same as pre-op Procedure: Procedure: Bilateral L4-5, L5-S1 radiofrequency ablation Medications: Bupivacaine 0.25% 6cc, lidocaine 2% 5cc, kenalog 80mg The patient was seen and examined in the preoperative holding area.? The site was marked.? Written informed consent was obtained and placed on the chart.? The patient was brought to the medical procedure unit and placed in the prone position.? A timeout was completed verifying correct patient, procedure, positioning, and special requirements.? The skin overlying the target points, the designated medial branch, were prepped and draped in the usual sterile fashion.? The target point was achieved with a 20-gauge 15 cm with a 10 mm curved active tip radiofrequency cannula under direct fluoroscopic visualization.? The needle was inserted at level L4 on the right side. Needle tip position was confirmed with lateral fluoroscopic position.? Motor stimulation was carried out at 2 Hz up to 5 volts with the absence of extremity activity.? This was repeated at level L5, S1 on right side.?? Sensory stimulation was carried out.? Concordant pain was realized at the above- mentioned sites.? Then radiofrequency lesioning was carried out times 90 seconds at 80 degrees times 2 lesions at each level.? The radiofrequency probe was removed prior to cannula removal.? The above-mentioned injectate was placed in 1 mL increments.? The needle was removed. The same procedure, with the same steps, was then completed on the left side at the same levels. Insertion sites were covered.? The patient was taken to the postoperative recovery area and monitored for an appropriate length of time before being found suitable for discharge in the company of a responsible adult. Anesthesia: Local Surgeon: Christina Palm Pathology: none sent Condition: stable Disposition: no change
== END 2023-06-17 09:00 | disposition home or self-care (01) ==
PROVIDERS: PCP Nurse Practitioner Family; Visit Provider Anesthesiology
DX: M47.816 Spondylosis without myelopathy or radiculopathy, lumbar region (principal)
CPT/HCPCS: 64635; 64636

== ENCOUNTER 2023-07-17 09:20 | Outpatient (OUT) | payer BC, SELFPAY ==
--- NOTE | 2023-07-17 09:53 | PM.CN ---
Consult Note: HPI Data of Consult Patient: known to practice within the last 3 years Consult date: 09/27/22 Requesting Physician: Priscilla Elkins NP Primary Care Provider: HUNTER ROBINS Consult Narrative Reason for consult: f/u Narrative: Patient is here for f/u of chronic low back and left hip pain. Pain is in the left hip and low back No new sensorimotor sx or bowel or bladder issues. No adverse medication SE. Medications assist patient with better ability to perform ADLs. He has seen orthopedics for his knee and they advised he would need total hip done left. He wants to get surgery done. Currently working with [employer] and [employer] to get his hip surgery covered. Today rating pain 2/10 in left hip and low back, pain in left low back and hip increases to 8/10 with standing and activity, decreases with sitting. Patient reporting >80% improvement in left hip pain for 1 month, no ongoing improvement. Repeat bilateral L4-5 L5-S1 facet RFA providing >75% improvement in axial low back pain ongoing per pt. Continues to find functional improvement and pain relief from norco 5-325mg 1-1.5 tabs BID PRN and baclofen 10mg TID PRN, denies side effects. cc:: CC: Priscilla Elkins NP Review of Systems ROS Status of ROS 10 or more systems reviewed and unremarkable except as noted in history and below Musculoskeletal Reports: back pain and joint pain PFSH PFSH Medical History (Updated 07/17/23 @ 10:05 by Priscilla Elkins NP) Osteoarthritis ?M19.90 - Unspecified osteoarthritis, unspecified site (ICD-10) Enlarged prostate ?N40.0 - Benign prostatic hyperplasia without lower urinary tract symptoms (ICD-10) Obstructive sleep apnea on CPAP ?G47.33 - Obstructive sleep apnea (adult) (pediatric) (ICD-10) Sleep apnea ?G47.30 - Sleep apnea, unspecified (ICD-10) History of heart attack ?I25.2 - Old myocardial infarction (ICD-10) Surgical History History of cardiac cath ?Z98.890 - Other specified postprocedural states (ICD-10) History of surgery on lower extremity ?Z98.890 - Other specified postprocedural states (ICD-10) Meds Home Medications and Allergies Home Medications ?Medication ?Instructions ?Recorded ?Confirmed ?Type aspirin 81 mg capsule 81 mg PO DAILY 08/14/22 06/17/23 History atorvastatin 80 mg tablet 80 mg PO BEDTIME 08/14/22 06/17/23 History baclofen 10 mg tablet 10 mg PO TID PRN muscle spasm 08/14/22 06/17/23 History divalproex 125 mg tablet,delayed 125 mg PO TID 08/14/22 06/17/23 History release lisinopril 20 1 tab PO DAILY 08/14/22 06/17/23 History mg-hydrochlorothiazide 12.5 mg tablet metoprolol tartrate 25 mg tablet 25 mg PO BID 08/14/22 06/17/23 History lidocaine 5 % topical patch 1 patch topical DAILY #30 ea 12/27/22 06/17/23 Rx hydrocodone 5 mg-acetaminophen 325 1 tab PO BID PRN pain #80 tabs 05/15/23 06/17/23 Rx mg tablet hydrocodone 5 mg-acetaminophen 325 1 tab PO BID PRN pain #80 tabs 05/23/23 06/17/23 Rx mg tablet Allergies Allergy/AdvReac Type Severity Reaction Status Date / Time No Known Drug Allergies Allergy Verified 06/17/23 08:05 Exam Constitutional Documenting provider has reviewed patient's vital signs: yes Common normals: no apparent distress, oriented x3, healthy appearing, alert and well nourished General appearance: cooperative Orientation/consciousness: Yes awake, Yes oriented to person, Yes oriented to place and Yes oriented to time [facility] Common normals: normocephalic, hearing grossly normal bilaterally and moist oral mucous membranes Head and scalp: normocephalic Eye Common normals: PERRL Pupil: PERRL Neck & C-Spine Common normals: full ROM General: normal visual inspection Chest Common normals: inspection of chest normal Respiratory Common normals: normal respiratory effort, no retractions and no use of accessory muscles Effort & inspection: able to speak in complete sentences and symmetric chest movement Back & Pelvis Lumbar spine/lower back: normal to inspection, lumbar ROM normal and straight leg raise negative bilaterally Sacroiliac joints: SI joint(s) abnormal Other: left positive cathie(patricks), gaenslens, thigh thrust, compression test Extremity Common normals: normal capillary refill and no pedal edema Other: negative internal and external rotation of left hip muscle strength 5/5 bilat LE with intact sensation Neuro Common normals: oriented x3, CN's II-XII intact bilaterally, moves all extremities, no focal motor deficits, no sensory deficits noted, deep tendon reflexes 2+ bilaterally and gait normal Sensorium/orientation: alert Gait (neuro): assistive device used cane Motor exam: strength 5/5 throughout and no movement abnormalities noted Psych Common normals: mental status grossly normal, thought process normal, cooperative, affect normal, speech normal and activity/motor behavior normal Speech: normal speech Thought process: normal thought process Results Additional Findings Additional findings: If on a controlled substance or opioids, I have checked an [place] report on this patient and there are no aberrancies noted in the prescribing history.??If on a controlled substance or opioid a drug screen was completed and reviewed within the last year, and if there has not been a drug screen completed we ordered one today to monitor higher risk, state monitored pain medication use. As part of providing excellent, safe, comprehensive care, the following was completed at our patient's visit: 1. A medication reconciliation and review to ensure accurate knowledge of current/active medications, including asking our patients to inform us about any [id number] medications or herbal remedies/nutritional supplements/alternative remedies. 2. A review to specifically ensure our patients have had annual screening for screening for depression, screening for tobacco use, and screening for unhealthy alcohol use. For concerning screenings had a discussion with the patient, provided patient education, and recommended follow-up with primary care provider when appropriate. If patient noted with a risk of falling, they received education on strength, gait, and balance training to prevent future risk of falling. Assessment and Plan Assessment and Plan (1) Lumbar spondylosis: Assessment and Plan: bilateral L4-5 L5-S1 facet RFA >75% improvement ongoing (2) Chronic prescription opiate use: Assessment and Plan: I feel these medications are improving the patient's quality of life and allow them to tolerate activities of daily living as well as participate in recreational activity.? The patient does not report intolerable side effects. The patient is NOT opioid naive and non-pharmacologic and non-opioid treatment has failed to significantly relieve the patient's pain and improve functionality. The patient has a diagnosis that is related to a somatic or visceral pain etiology. ? ?? I reviewed with the patient the potential risks and side effects with the use of? opioid medications including but not limited to respiratory depression,? sedation, and even . I verified the patient has access to naloxone should? these effects occur. I advised the patient to avoid the use of any other? sedation substances including alcohol, THC, and benzodiazepines while? taking opioid medications due to the risk of compounding side effects and? detrimental outcomes. I reviewed the [employer], pain treatment agreement, urine? drug screen, and opioid start talking forms. The patient was advised to let? their family know they had Naloxone in case they would need to administer? the medication.? ?? A drug screen was completed within the last year, and no aberrancies were noted regarding their use of controlled substances. The patient understands they are subject to the terms and conditions of the pain contract that they have signed. ? ?? I have checked an [place]AR[place] report on this patient today and there are no aberrancies noted in the prescribing history.? (3) Osteoarthritis, hip, bilateral: (4) Sacroiliitis: Plan discussed Left SIJ under fluoroscopy, risks vs benefits reviewed all questions answered. pt to call to schedule continue medications, tolerating well without side effects. reports functional improvement, improved ability to walk complete housework and go out with his continue f/u with orthopedic surgeon for consideration of left hip surgery, no surgical intervention per pt for 3+ months f/u 3 months for medication management, or 2 weeks after left SIJ injection
== END 2023-07-17 09:21 | disposition home or self-care (01) ==
PROVIDERS: PCP Nurse Practitioner Family; Visit Provider Nurse Practitioner
DX: M47.816 Spondylosis without myelopathy or radiculopathy, lumbar region (principal); Z79.891 Long term (current) use of opiate analgesic; M16.0 Bilateral primary osteoarthritis of hip; M46.1 Sacroiliitis, not elsewhere classified
CPT/HCPCS: G0463

== ENCOUNTER 2023-08-12 08:59 | Day surgery (SDC) | payer BC, SELFPAY ==
[2023-08-12 09:35] VITALS: BP 155/80; PULSE 73; TEMP 36.9; O2SAT 96
[2023-08-12 10:21] VITALS: BP 190/79; PULSE 72; O2SAT 95
[2023-08-12] MEDS: TRIAMCINOLONE ACETONIDE 40 MG/ML VIAL INJ (10:23)
[2023-08-12] MEDS: IOHEXOL 240 MG/ML - 10 ML VIAL 24 MG INJ (10:23)
[2023-08-12] MEDS: LIDOCAINE HCL 2% PF 100 MG/5 ML VIAL 1 ML INJ (10:23)
[2023-08-12] MEDS: BUPIVACAINE HCL 0.25% PF 25 MG/10 ML VIAL 2 ML INJ (10:23)
[2023-08-12 10:24] VITALS: BP 145/77; PULSE 78; O2SAT 96
--- NOTE | 2023-08-12 10:24 | W.PM.PROCNOT ---
Date of procedure: 08/12/23 Pre-op diagnosis: Pain due to left sacroiliitis Post-op diagnosis: same as pre-op Procedure: Procedure: Left sacroiliac joint injection Medications: Bupivacaine 0.25% 3cc, kenalog 40mg PROCEDURE: After informed consent was obtained, the patient brought to the OR and placed in the prone position. The skin overlying the area was prepped and draped in sterile fashion ?using alcohol, after which a 25 gauge needle was used to access the nerve innervating the left sacroiliac joint under fluoroscopic guidance. Omnipaque contrast dye was injected to show absence of vascular or spinal canal uptake. After encountering the same we instilled 4 mL of solution. ?Postoperatively, needles were removed. The patient tolerated the procedure well and was ?transferred to recovery area in stable condition, to be discharged home after meeting ?criteria. Follow up as per the treatment plan. Anesthesia: Local Surgeon: Christina Palm Pathology: none sent Condition: stable Disposition: no change
== END 2023-08-12 10:28 | disposition home or self-care (01) ==
LOC: SURGOUT 08:59
PROVIDERS: PCP Nurse Practitioner Family; Visit Provider Anesthesiology
DX: M46.1 Sacroiliitis, not elsewhere classified (principal)
CPT/HCPCS: 27096; Q9966

== ENCOUNTER 2023-08-22 10:19 | Outpatient (OUT) | payer BC, SELFPAY ==
--- OUTSIDE RECORDS SUMMARY | 2023-08-22 10:31 | XMS_ITS | CCD ---
Author Organization [facility] ion Partnership [facility] Care Team Providers Care Marriage And Family Social Worker Name Role Phone Margariat Maxwell Primary Care Provider KASH GRIER Referring Unavailabl e GURJIT, SHIVAPRASAD K Primary Care Unavailabl e GURJIT, SHIVAPRASAD K Referring Unavailabl e KASH GRIER Primary Care Unavailabl e GURJIT, SHIVAPRASAD K Referring Unavailabl e FRANCINEOTHKATHY LAMBERTNA Dixie Primary Care Unavailabl e GURJIT, SHIVAPRASAD [...] Unavailable Unavailable Unavailable Unavailable Primary Care Provider DR COMPA Garcia Attending Unavailable AWAD ., DR COMPA Vo Admitting Unavailable JULIENNE, HUNTER Primary Care Unavailable AWAD ., DR COMPA Vo Consulting Unavailable SHARP, TRISTA Consulting Unavailable LAKSHMIPATHY ., NARENDRANATH Attending Nora vailable LAKSHMIPATHY ., NARENDRANATH Admitting Nora vailable JULIENNE, HUNTER Primary Care Unavailable LAKSHMIPATHY ., NARENDRANATH Consulting Nora vailable HALKER ., AD Attending Unavailable JULIENNE, HUNTER Primary Care Unavailable LAKSHMIPATHY ., NARENDRANATH Consulting Nora vailable HALKER ., AD Admitting Unavailable AWAD ., DR COMPA Vo Attending Unavailable AWAD ., DR COMPA Vo Admitting Unavailable JULIENNE, HUNTER Primary Care Unavailable MALDONADO ., MYRIAM Consulting Unavailable AWAD ., DR COMPA Vo Attending Unavailable AWAD ., DR COMPA Vo Admitting Unavailable JULIENNE, HUNTER Primary Care Unavailable AWAD ., DR COMPA Vo Consulting Unavailable SHARP, TRISTA Consulting Unavailable AWAD ., DR COMPA Vo Attending Unavailable AWAD ., DR COMPA Vo Admitting Unavailable JULIENNE, HUNTER Primary Care Unavailable MALDONADO ., MYRIAM Consulting Unavailable AWAD ., DR COMPA Vo Attending Unavailable AWAD ., DR COMPA Vo Admitting Unavailable JULIENNE, HUNTER Primary Care Unavailable AWAD ., DR COMPA Vo Consulting Unavailable AWAD ., DR OCMPA Vo Attending Unavailable AWAD ., DR COMPA Vo Admitting Unavailable JULIENNE, HUNTER Primary Care Unavailable AWAD ., DR COMPA Vo Consulting Unavailable JULIENNE, HUNTER Primary Care Unavailable ROBERTO ., DANITZA Attending Unavailable ROBERTO ., DANITZA Admitting Unavailable LORENZO ., JANA MENDOZA Consulting Unavailabl catarina MACEDO, TANNER Consulting Unavailable JULIENNE, HUNTER Primary Care Unavailable OSBORNE ., MR ROZ Consulting Unavailable OSBORNE ., MR ROZ Attending Unavailable OSBORNE ., MR ROZ Admitting Unavailable MADONNA, EDSON Consulting Unavailable AWAD ., DR COMPA Vo Admitting Unavailable AWAD ., DR COMPA Vo Consulting Unavailable JULIENNE, HUNTER Primary Care Unavailable AWAD ., DR COMPA Vo Attending Unavailable LAKSHMIPATHY ., NARENDRANANGELINA Attending Nora vailable LAKSHMIPATHY ., NARENDRANATH Admitting Nora vailable JULIENNE, HUNTER Primary Care Unavailable WEST, DR VASILE Gentile Consulting Unavailable ERNESTO, DR MICHAEL Braun Consulting Unavailable LAKSHMIPATHY ., NARENDRANATH Consulting Nora vailable AWAD ., DR COMPA Vo Attending Unavailable AWAD ., DR COMPA Vo Admitting Unavailable JULIENNE, HUNTER Primary Care Unavailable MYRIAM ANDERSON Consulting Unavailable WINIFRED BORGES Attending Unavailable Furlong DO, Colten G Primary Care Provider Marge GARCIA, Antonio Rodriguez Primary Care Unavailable Armin GARCIA, Edson Bocanegra Attending Unavailese Bird MD, Antonio Rodriguez Primary Care Unavailable Néstor GARCIA, Christina Portillo Attending Unavailable JULIENNE, HUNTER L Referring Unavailable FURLONG, COLTEN G Primary Care Unavailable JERONIMO, DEBORAH G Attending Unavailable JULIENNE, HUNTER L Referring Unavailable FURLONG, COLTEN G Primary Care Unavailable FURLONG, COLTEN G Referring Unavailable FURLONG, COLTEN G Primary Care Unavailable JULIENNE, HUNTER L Attending Unavailable FURLONG, COLTEN G Referring Unavailable FURLONG, COLTEN G Primary Care Unavailable MARY CRUZ Attending Unavailable FURLONG, COLTEN G Referring Unavailable FURLONG, COLTEN G Primary Care Unavailable JERONIMO, DEBORAH G Attending Unavailable JERONIMO, DEBORAH G Referring Unavailable FURLONG, COLTEN G Primary Care Unavailable JERONIMO, DEBORAH G Referring Unavailable FURLONG, COLTEN G Primary Care Unavailable FURLONG, COLTEN G Referring Unavailable FURLONG, COLTEN G Primary Care Unavailable JERONIMO, DEBORAH G Admitting Unavailable JERONIMO, DEBORAH G Attending Unavailable JERONIMO, DEBORAH G Referring Unavailable FURLONG, COLTEN G Primary Care Unavailable Allergies Allergy Classification Reported Allergen(s) Allergy Type Date of Onset Reaction(s) Facility (1 source) Amoxicillin; Translations: [AMOXICILLIN] Drug Allergy 08-21-2023 [facility] (1 source) predniSONE; Translations: [PREDNISONE] Drug Allergy 08-21-2023 [facility] Medications Current Medications Medication Drug Class(es) Dates [...] pain 30 tablet 0 11/10/2019 11/15/2019 Active Bixby 5-325 MG T ABS TAKE 1 TABLET [...] Active Start: 11-29-2020 take 1 tablet by [facility] once daily Atorvastatin Calcium 80 MG Oral [...] 0 09/14/2022 Active take 3 tablets by [facility] once daily as needed for muscle spasms [...] / sennosides, halfway 8.6 mg oral tablet (3 sources) Start: [...] Start: 02-09-2019 take 1 tablet by francesco once daily rOPINIRole (REQUIP) 1 MG tablet TAKE 1 TABLET BY MOUTH EVERY DAY 90 tablet 1 02/09/2019 Active Start: 07-27-2018 take 1 tablet by francesco once daily rOPINIRole (REQUIP) 1 MG tablet TAKE 1 TABLET BY MOUTH EVERY DAY 3 07/27/2018 Active tamsulosin hydrochloride 0.4 mg oral capsule (12 sources) alpha-Adrenergic Sam Start: 11-10-2019 take 1 capsule by mouth once daily tamsulosin (FLOMAX) 0.4 MG capsule TAKE 1 CAPSULE BY MOUTH EVERY DAY 90 capsule 1 11/10/2019 Active Start: 05-06-2019 take 1 capsule by mo [facility] once daily tamsulosin (FLOMAX) 0.4 MG capsule TAKE 1 CAPSULE BY MOUTH EVERY DAY 90 capsule 1 05/06/2019 Active Start: 10-09-2018 take 1 capsule by [facility] once daily tamsulosin (FLOMAX) 0.4 MG capsule [...] Start: 04-06-2020 take 1 tablet by francesco twice daily divalproex (DEPAKOTE) [address] tablet TAKE 1 TABLET BY MOUTH TWICE A DAY 60 tablet 0 04/06/2020 Active Start: 04-13-2019 take 1 tablet by francesco twice daily divalproex (DEPAKOTE) [address] tablet TAKE 1 TABLET BY MOUTH TWICE A DAY 180 tablet 1 04/13/2019 Active Start: 10-30-2018 take 1 tablet by francesco twice daily divalproex (DEPAKOTE) [address] [...] by francesco th twice daily as needed. [id number] actuat albuterol 0.09 mg/actuat metered dose [...] completed) Start: 10-28-2018 take 1 capsule by [facility] once daily propranolol (INDERAL LA) 80 MG [...] [Coronary atherosclerosis of unspecified type of vessel, [place] or graft] Onset: 04-02-2023 05-01-2023 Chronic Coronary atherosclerosis and other heart disease (2 sources) Stented coronary artery; Translations: [Percutaneous transluminal coronary angioplasty status] Episodic Diseases of white blood cells (3 sources) Band neutrophil count above reference range; Translations: [Bandemia] Onset: 06-21-2022 06-21-2022 Chronic Disorders of lipid metabolism (13 sources) Hyperlipidemia; Translations: [Other and unspecified hyperlipidemia] Onset: 04-02-2023 05-01-2023 Chronic Essential hypertension (19 sources) Essential hypertension; Translations: [Hypertensive disorder] Onset: 03-24-2022 06-08-2022 Chronic Genitourinary symptoms and ill-defined conditions (1 source) Unspecified symptoms and signs involving the genitourinary system; Translations: [Unspecified symptoms and signs involving the genitourinary system] Onset: 07-09-2023 Episodic Gout and other crystal arthropathies (1 source) Articular gout; Translations: [Gout of foot, unspecified cause, unspecified chronicity, unspecified laterality] Chronic Gout and other crystal arthropathies (1 source) Gouty arthritis of right foot; Translations: [Gouty arthritis of right foot] Headache; including migraine (1 source) Migraine; Translations: [Migraine, unspecified, not intractable, without status migrainosus] 04-01-2023 Chronic Hyperplasia of prostate (5 sources) Large prostate ; Translations: [Benign prostatic hyperplasia without lower urinary tract symptoms] Onset: 05-01-2023 05-01-2023 Chronic Nonspecific chest pain (2 sources) Chest discomfort; Translations: [Chest discomfort] Episodic Other circulatory disease (1 source) Cardiac function test normal; Translations: [Normal cardiac ejection fraction] Episodic Other connective tissue disease (1 source) Other muscle spasm; Translations: [OTHER MUSCLE SPASM] Onset: 06-20-2022 Episodic Other diseases of kidney and ureters (2 sources) Other obstructive and reflux uropathy; Translations: [Other obstructive and reflux uropathy] Onset: 07-04-2023 Episodic Other nervous system disorders (1 source) Other specified mononeuropathies of bilateral lower limbs; Translations: [OTH SPEC MONONEUROPATH LUPILLO LOW LIMB] Onset: 08-01-2022 Chronic Other nervous system disorders (2 sources) Other chronic pain; Translations: [OTHER CHRONIC PAIN] Onset: 06-20-2022 Chronic Other nervous system disorders (1 source) Impairment of balance; Translations: [Other abnormalities of gait and mobility] Episodic Other non-traumatic joint disorders (1 source) Knee pain; Translations: [Acute pain of left knee] Episodic Other non-traumatic joint disorders (1 source) Effusion, left knee; Translations: [Effusion of left knee] Episodic Other non-traumatic joint disorders (4 sources) [...] skin and subcutaneous tissue, unspecified] 05-01-2023 Episodic Other skin disorders (1 source) Disorder of pigmentation, unspecified; Translations: [Disorder of pigmentation, unspecified] Onset: 08-05-2023 Episodic Other upper respiratory infections (13 sources) Acute upper respiratory infection; Translations: [Acute upper respiratory infection, unspecified] Onset: 03-17-2018 10-06-2019 Episodic Spondylosis; intervertebral disc disorders; other back [...] of right calf muscular vein] Onset: 05-08-2022 Unclassified (1 source) Benign Prostatic Hypertrophy Onset: 07-26-2023 Unclassified (1 source) Bladder Problem Onset: 07-26-2023 Unclassified (1 source) New Patient Onset: 07-04-2023 Unclassified (1 source) Lower urinary tract symptoms (LUTS) [R39.9] Onset: 08-21-2023 Past or Other Problems Problem Classification Problem Date Documented Da te Episodic/Chronic Fracture of lower limb (1 source) Displaced fracture of fourth metatarsal bone, left foot, initial encounter for closed fracture; Translations: [DSPL FX 4TH MT BN LT FT INIT CELE FX] Onset: 01-19-2022 Episodic Mood disorders (3 sources) Mood disorders Onset: 12-14-2022 Resolved: 05-01-2023 12-14-2022 Other aftercare (1 source) care home (current) use of aspirin; Translations: [JR. SYSTEMS ADMINISTRATOR CURRENT USE OF ASPIRIN] Onset: 05-07-2022 Episodic Other aftercare (1 source) Other intermission coordinator (current) drug therapy; Translations: [OTH JR. SYSTEMS ADMINISTRATOR CURRENT DRUG THERAPY] Onset: 05-07-2022 Episodic Other [...] Onset: 05-07-2022 Episodic Other non-traumatic joint disorders (2 sources) Pain in left hip; Translations: [PAIN IN LEFT HIP] Onset: 08-01-2022 Episodic Other non-traumatic joint disorders (4 sources) Pain in left shoulder; Translations: [PAIN IN LEFT SHOULDER] Onset: 05-03-2022 Episodic Other skin disorders (1 source) Disorder of the skin and subcutaneous tissue, unspecified; Translations: [Disorder of the skin and subcutaneous tissue, unspecified] Onset: 05-01-2023 Episodic Phlebitis; thrombophlebitis and thromboembolism (5 sources) [...] Test Name Value Interpretation Reference Range Facility Prostate specific Ag [Mass/V ol]on 07-11-2023 PROSTATIC SPEC ANT 0.66 ng/mL Normal 0.00-4.00 [facility] Comment on above: Result Comment: The method used for this test is [employer] DXI chemiluminescent immunoassay. Values obtained by different assay methods cannot be used interchangeably. Performed By: #### 2 857-1 #### [facility] ([id number]) [address], [address] [place] [address] US RETROPERITONEAL COMPLETEo n 07-11-2023 US RETROPERITONEAL COMPLETE US RETROPERITONEAL COMPLETE HISTORY: A 58-year-old male with the history of the benign prostatitic hyperplasia and urinary obstruction. TECHNIQUE: Multiple real-time images of both kidneys and the urinary bladder are obtained. Color Doppler study is performed. COMPARISON: No relevant prior studies are available for comparison. FINDINGS: Both kidneys are normal in position and configuration. Right kidney measures 10.2 x 6.5 x 5.4 cm. Left kidney measures 10.4 x 5.0 x 5.2 cm. There is no evidence of echogenic calculi or hydronephrosis in the either kidney. There is a cyst in the superior portion of the left kidney and measures 1.8 x 1.7 x 1.6 cm. No solid-appearing renal mass is identified. Prevoid urinary bladder volume is 275 mL. Bilateral ureteric jets are visualized. No intraluminal abnormality seen. There is a small amount of post void residual urine and measures 40 mL. Prostatitic gland is enlarged. Prostatitic gland measures 4.1 x 4.1 x 4.3 cm with calculated volume is 38 mL. IMPRESSION: * No evidence of echogenic calculi or hydronephrosis in the either kidney. * There is a 1.8 x 1.7 cm cyst in the superior pole of the left kidney. * Small amount of post void residual urine and measures 40 mL. * Prostatitic enlargement with calculated volume is 38 mL. Finalized by Da Wynn MD on 07/11/2023 7:40 PM Normal [facility] COMPREHENSIVE METABOLIC PANE Feng 05-01-2023 Albumin [Mass/Vol] 4.1 g/dL Normal 3.2-5.3 [facility] Comment on above: Performed By: #### C DAGOBERTO, 70369-1 #### [facility] ([id number]) [address], [address] [place] [address] ALP [Catalytic activity/Vol] 75 U/L Normal 39-130 [facility] Comment on above: Performed By: #### C DAGOBERTO, 16792-6 #### [facility] ([id number]) [address] [place] [address] ALT [Catalytic activity/Vol] 21 U/L Normal 0-40 [facility] Comment on above: Performed By: #### Haley ARENAS, 37351-4 #### [facility] ([id number]) [address], [address] [place] [address] Anion gap [Moles/Vol] 6 mmol/L Normal 5-15 [facility] Comment on above: Performed By: #### Haley ARENAS, 26093-6 #### [facility] ([id number]) [address], [address] [place] [address] AST [Catalytic activity/Vol] 13 U/L Normal 0-41 [facility] Comment on above: Performed By: #### Haley ARENAS, 73043-5 #### [facility] ([id number]) [address], [address] [place] [address] Bilirubin [Mass/Vol] 0.4 mg/dL Normal 0.3-1.2 [facility] Comment on above: Performed By: #### Haley ARENAS, 45186-7 #### [facility] ([id number]) [address], [address] [place] [address] Calcium [Mass/Vol] 9.5 mg/dL Normal 8.5-10.5 [facility] Comment on above: Performed By: #### Haley ARENAS, 18906-1 #### [facility] ([id number]) [address] [place] [address] Chloride [Moles/Vol] 106 mmol/L Normal 98-109 [facility] Comment on above: Performed By: #### Haley ARENAS, 20274-3 #### [facility] ([id number]) [address], [address] [place] [address] CO2 [Moles/Vol] 30 mmol/L Normal 22-32 [facility] Comment on above: Performed By: #### Haley ARENAS, 75191-2 #### [facility] ([id number]) [address], [address] [place] [address] Creatinine [Mass/Vol] 0.96 mg/dL Normal 0.60-1.30 [facility] Comment on above: Result Comment: METH OD TRACEABLE TO IDMS STANDARD Performed By: #### Haley ARENAS, 28525-7 #### [facility] ([id number]) [address], [address] [place] [address] eGFR (CKD-EPI) NON-RACE DEPENDENT >90 Normal >59 [facility] Comment on above: Result Comment: Reported eGFR is based on the CKD-EPI 2020 equation that does not use a race coefficient. Performed By: #### Haley ARENAS, 45544-6 #### [facility] ([id number]) [address], [address] [place] [address] Glucose [Mass/Vol] 95 mg/dL Normal 65-99 [facility] Comment on above: Performed By: #### Haley ARENAS, 12095-3 #### [facility] ([id number]) [address], [address] [place] [address] Potassium [Moles/Vol] 4.6 mmol/L Normal 3.5-5.0 [facility] Comment on above: Performed By: #### Haley ARENAS, 39820-6 #### [facility] ([id number]) [address] [place] [address] Protein [Mass/Vol] 7.0 g/dL Normal 6.0-8.0 [facility] Comment on above: Performed By: #### Haley ARENAS, 29010-8 #### [facility] ([id number]) [address], [address] [place] [address] Sodium [Moles/Vol] 142 mmol/L Normal 134-146 [facility] Comment on above: Performed By: #### C DAGOBERTO, 44669-7 #### [facility] ([id number]) [address], [address] [place] [address] Urea nitrogen [Mass/Vol] 20 mg/dL Normal 5-23 [facility] Comment on above: Performed By: #### C DAGOBERTO, 32781-4 #### [facility] ([id number]) [address], [address] [place] [address] Comprehensive metabolic pane feng 05-01-2023 Albumin [Mass/Vol] 4.1 g/dL 3.2 - 5.3 g/dL [facility] ALP [Catalytic activity/Vol] 75 U/L 39 - 130 U/L [facility] ALT No additional P-5'-P [Catalytic activity/Vol] 21 U/L 0 - 40 U/L [facility] Anion gap [Moles/Vol] 6 mmol/L 5 - 15 mmol/L [facility] AST [Catalytic activity/Vol] 13 U/L 0 - 41 U/L [facility] Bilirubin [Mass/Vol] 0.4 mg/dL 0.3 - 1 .2 mg/dL [facility] Calcium [Mass/Vol] 9.5 mg/dL 8.5 - 10. 5 mg/dL [facility] Chloride [Moles/Vol] 106 mmol/L 98 - 10 9 mmol/L [facility] CO2 [Moles/Vol] 30 mmol/L 22 - 32 mmol/L [facility] Creatinine [Mass/Vol] 0.96 mg/dL 0.60 - 1.30 mg/dL [facility] Comment on above: METHOD TRACEABLE TO IDMI STANDARD eGFR (CKD-EPI)non-race dependent - PINF [facility] Comment on above: Reported eGFR is based on the CKD-EPI 2020 equation that does not use a race coefficient. Glucose [Mass/Vol] 95 mg/dL 65 - 99 mg/dL [facility] Potassium [Moles/Vol] 4.6 mmol/L 3.5 - 5.0 mmol/L [facility] Protein [Mass/Vol] 7.0 g/dL 6.0 - 8.0 g/dL [facility] Sodium [Moles/Vol] 142 mmol/L 134 - 146 mmol/L [facility] Urea nitrogen [Mass/Vol] 20 mg/dL 5 - 23 mg/dL [facility] Lipid 1996 panelon 4 Cholesterol [Mass/Vol] 97 mg/dL Low 150 - 200 mg/dL [facility] Cholesterol in HDL [Mass/Vol] 40 mg/dL 39 - PINF mg/dL [facility] Comment on above: HDL <40 mg/dL - High Risk HDL > or = 40mg/dL- Desirable HDL >60 mg/dL - Negative Risk Cholesterol in LDL [Mass/Vol] 41 mg/dL NINF - 130 mg/dL [facility] Comment on above: LDL <100 mg/dL - Desirable LDL >160 mg/dL - High Risk Cholesterol in VLDL [Mass/Vol] 16 mg/dL 0 - 30 mg/dL [facility] Cholesterol.total/Ch olesterol in HDL [Mass ratio] 2.4 {ratio} 1.0 - 5.0 [facility] Interpretation and review of laboratory results Abnormal [facility] Triglyceride [Mass/Vol] 80 mg/dL 27 - 150 mg/dL [facility] Cholesterol [Mass/Vol] 97 mg/dL Low 150-200 [facility] Comment on above: Performed By: #### Haley , 95538-6 #### [facility] ([id number]) [address] [place] [address] Cholesterol in HDL [Mass/Vol] 40 mg/dL Normal >39 [facility] Comment on above: Result Comment: HDL <40 mg/dL - High Risk HDL > or = 40mg/dL- Desirable HDL >60 mg/dL - Negative Risk Performed By: #### Haley ARENAS, 20238-7 #### [facility] ([id number]) [address], [facility] [address] [place] [address] Cholesterol in LDL [Mass/Vol] 41 mg/dL Normal <130 [facility] Comment on above: Result Comment: LDL <100 mg/dL - Desirable LDL >160 mg/dL - High Risk Performed By: #### Haley ARENAS, 45468-7 #### [facility] ([id number]) [address], [address] [place] [address] Cholesterol in VLDL [Mass/Vol] 16 mg/dL Normal 0-30 [facility] Comment on above: Performed By: #### Haley ARENAS 87286-7 #### [facility] ([id number]) [address], [address] [address] CHOLESTEROL:HDL 2.4 Normal 1.0-5.0 [facility] Comment on above: Performed By: #### Haley ARENAS, 20293-8 #### [facility] ([id number]) [address], [address] [address] Triglyceride [Mass/Vol] 80 mg/dL Normal 27-150 [facility] Comment on above: Performed By: #### Haley ARENAS, 12031-6 #### [facility] ([id number]) [address], [address] [address] No Panel Informationon 05-01 [facility] Tobacco Screening.on 023 Adult depression screening assessment No [facility] io [facility] y 250 DO Work Phone: Fall risk assessment b) One or more fall s in the last year [facility] Shane y 250 DO Work Phone: Tobacco use status CP a) Yes [facility] Shane y 250 DO Work Phone: Tobacco Screening. Yes [facility] Shane y 250 DO Work Phone: 36on 08-23-2022 36 Left vm to reschedul e us and follow up from 08/17/22 Normal [facility] Telephoneon 08-23-2022 Telephone [phone] Fidencio Doss as 1965 M Date Provider Department Center 08/23/2022 Sanjuana2-PATRIA BRANCH GLV [facility] No family history on file Normal [facility] XR LSPINE 2_3 VIEWSon 2022 XR [...] by: MICHAEL OROZCO Date: 2022-08-01 08:25 Normal [facility] XR HIPS LUPILLO 3_4V WO PELVISon 07-31-2022 [...] by: VASILE VITALE Date: 2022-07-31 14:23 Normal [facility] .BF Diffon 07-23-2022 [address] Interpretation Normal [facility] Comment on above: Result Comment: Syno vial fluid shows chronic inflammatory cells and synovial cells. Authenticated by: Dr. Luci Leyva Date/Time: Performed By: #### . Body Fluid Differential #### [place] [address] C ANAon 07-23-2022 C NELL --- Final No anaerobic growth after 72 hrs. Normal [facility] Comment on above: Performed By: #### A NAC #### [place] [address] .BF Cell Cnt RBC Aon 023 Fluid RBC Count 3983 /mcL Normal [facility] Comment on above: Performed By: #### . Body Fluid Cell Count RBC Auto #### [address] [address] .BF Cell Cnt WBC Aon 023 Fluid WBC Count 257 /mcL High 0-150 [facility] Comment on above: Performed By: #### . Body Fluid Cell Count WBC Auto #### [address] [address] .BF Diffon 07-21-2022 Fluid Mononuclear Cells 83 % High 0-78 [facility] Comment on above: Performed By: #### . Body Fluid Differential #### [place] [address] Fluid Other Cells 2 % Normal 0-10 [facility] Comment on above: Performed By: #### . Body Fluid Differential #### [place] [id number] Fluid Polynuclear Cells 15 % Normal 0-25 [facility] Comment on above: Performed By: #### . Body Fluid Differential #### [place] [id number] BF Cell Counton 07-21-2022 Body Fluid Cell Cnt Type Synovial Normal [facility] Comment on above: Performed By: #### F LCC #### [place] [id number] C Sterile BFon 07-20-2022 C Sterile BF GRAM STAIN Final No growth at 48 hours. Gram Stain Moderate White Blood Cells No organisms seen. Normal [facility] Comment on above: Performed By: #### C SBF #### [facility] (DEFAULT) [address] [place] [address] Office Visiton 05-08-2022 Follow-up visit [id number] Fidencio Doss as 1965 M Date Provider Department Center 05/08/2022 WINIFRED HOWELL [facility] No family history on file Level of Service:14981 [place] OFFICE/OUTPATIENT NEW LOW MDM 30-44 MINUTES Reason for Visit and Comments: New Patient [632] Normal [facility] BNPon 05-03-2022 Natriuretic peptide B (Bld) [Mass/Vol] 41.0 pg/mL Normal <=900.0 [facility] Comment on above: Performed By: #### H STROPN, LIPA, BNP, CMP ####[facility] [address] [place], [place] [address]FbDr. Jazzy Powell CBC AUTO DIFFon 05-03-2022 BASO # 0.1 103/ul Normal 0.0-0.1 [facility] Comment on above: Performed By: #### C BC #### [facility] [address] [place] [address] [address] Jazzy Powell Basophils/100 WBC (Bld) 0.5 % Normal 0.2-2.0 [facility] Comment on above: Performed By: #### C BC #### [facility] [address] [address] [address] Jazzy Powell EO # 0.3 103/ul Normal 0.0-0.7 [facility] Comment on above: Performed By: #### C BC #### [facility] [address] [address] [address] Jazzy Powell Eosinophils/100 WBC (Bld) 1.8 % Normal 0.9-7.0 [facility] Comment on above: Performed By: #### C BC #### [facility] [address] [address] [address] Jazzy Powell Erythrocyte distribution width (RBC) [Ratio] 13.1 % Normal 11.0-15.0 [facility] Comment on above: Performed By: #### C BC #### [facility] [address] [address] [address] Jazzy Powell Hematocrit (Bld) [Volume fraction] 40.7 % Critically low 42.0-54.0 [facility] Comment on above: Performed By: #### C BC #### [facility] [address] [address] [address] Jazzy Powell Hemoglobin (Bld) [Mass/Vol] 13.7 g/dL Critically low 14.0-18.0 [facility] Comment on above: Performed By: #### C BC #### [facility] [address] [address] [address] Jazzy Powell IG # 0.09 10e3/ul Critically high 0.00-0.03 [facility] Comment on above: Performed By: #### C BC #### [facility] [address] [place] [address] Dr. Jazzy Powell IG % 0.5 % Normal 0.0-0.5 [facility] Comment on above: Performed By: #### C BC #### [facility] [address] [place] [address] Dr. Jazzy Powell LYMPH # 4.7 103/ul Critically high 1.2-3.8 [facility] Comment on above: Performed By: #### C BC #### [facility] [address] [place] [address] Dr. Jazzy Powell Lymphocytes/100 WBC (Bld) 24.5 % Normal 20.5-60.0 [facility] Comment on above: Performed By: #### C BC #### [facility] [address] [place] [address] Dr. Jazzy Powell MANUAL DIFF REQ NO Normal [facility] Comment on above: Performed By: #### C BC #### [facility] [address] [place] [address] Dr. Jazzy Powell MCH (RBC) [Entitic mass] 30.8 pg Normal 25.9-34.0 [facility] Comment on above: Performed By: #### C BC #### [facility] [address] [place] [address] Dr. Jazzy Powell MCHC (RBC) [Mass/Vol] 33.7 g/dL Normal 29.9-35.2 [facility] Comment on above: Performed By: #### C BC #### [facility] [address] [place] [address] Dr. Jazzy Powell MCV (RBC) [Entitic vol] 91.5 fL Normal 80.0-94.0 [facility] Comment on above: Performed By: #### C BC #### [facility] [address] [place] [address] Dr. Jazzy Powell MONO # 2.5 103/ul Critically high 0.3-0.8 [facility] Comment on above: Performed By: #### C BC #### [facility] [address] [address] [address] Jazzy Powell Monocytes/100 WBC (Bld) 12.8 % Critically high 1.7-12.0 [facility] Comment on above: Performed By: #### C BC #### [facility] [address] [address] [address] Jazzy Powell NEUT # 11.6 103/ul Critically high 1.4-6.5 [facility] Comment on above: Performed By: #### C BC #### [facility] [address] [address] [address] Jazzy Powell Neutrophils/100 WBC (Bld) 59.9 % Normal 43.0-75.0 [facility] Comment on above: Performed By: #### C BC #### [facility] [address] [address] [address] Jazzy Powell Platelet mean volume (Bld) [Entitic vol] 8.4 fL Critically low 9.5-13.5 [facility] Comment on above: Performed By: #### C BC #### [facility] [address] [address] [address] Jazzy Powell PLT 332 103/ul Normal 150-450 [facility] Comment on above: Performed By: #### C BC #### [facility] [address] [address] [address] Jazzy Powell RBC 4.45 106/ul Critically low 4.70-6.10 [facility] Comment on above: Performed By: #### C BC #### [facility] [address] [address] [address] Jazzy Powell WBC 19.3 103/ul Critically high 4.0-11.0 [facility] Comment on above: Performed By: #### C BC #### [facility] [address] [address] [address] Jazzy Powell CTA CHEST WO W [...] by: TANNER MACEDO Date: 2022-05-03 20:24 Normal [facility] LIPASEon 05-03-2022 Lipase [Catalytic activity/Vol] 126.0 U/L Normal 73.0-393.0 [facility] Comment on above: Performed By: #### H STROPN, LIPA, BNP, CMP ####[facility] [address] [place] [address]Dr. Jazzy Powell PROF 14(COMP METB)on 023 Albumin [Mass/Vol] 3.5 g/dL Normal 3.4-5.0 [facility] [place] Comment on above: Performed By: #### H STROPN, LIPA, BNP, CMP ####[facility] [address] [place] [address]DrCheryl Powell Albumin/Globulin [Mass ratio] 1.0 {ratio} Normal [facility] Comment on above: Performed By: #### H STROPN, LIPA, BNP, CMP ####[facility] [address] [place] [address]Dr. Jazzy Powell ALP [Catalytic activity/Vol] 101 U/L Normal 46-116 [facility] Comment on above: Performed By: #### H STROPN, LIPA, BNP, CMP ####[facility] [address] [place] [address]Dr. Jazzy Powell ALT [Catalytic activity/Vol] 27 U/L Normal 16-63 [facility] Comment on above: Performed By: #### H STROPN, LIPA, BNP, CMP ####[facility] [address] [place] [address]Dr. Jazzy Powell Anion gap [Moles/Vol] 6.1 mmol/L Normal [facility] Comment on above: Performed By: #### H STROPN, LIPA, BNP, CMP ####[facility] [address] [place], [place] [address]Dr. Jazzy Powell AST [Catalytic activity/Vol] 15 U/L Normal 15-37 [facility] Comment on above: Performed By: #### H STROPN, LIPA, BNP, CMP ####[facility] [address] [place], [place] [address]Dr. Jazzy Powell Bilirubin [Mass/Vol] 0.3 mg/dL Normal 0.2-1.0 [facility] Comment on above: Performed By: #### H STROPN, LIPA, BNP, CMP ####[facility] [address] [place], [place] [address]Dr. Jazzy Powell Calcium [Mass/Vol] 8.9 mg/dL Normal 8.5-10.1 [facility] [place] Comment on above: Performed By: #### H STROPN, LIPA, BNP, CMP ####[facility] [address] [place], [place] [address]Dr. Jazzy Powell Chloride [Moles/Vol] 104 mmol/L Normal 98-107 [facility] Comment on above: Performed By: #### H STROPN, LIPA, BNP, CMP ####[facility] [address] [place] [address]Dr. Jazzy Powell CO2 [Moles/Vol] 29.4 mmol/L Normal 21.0-32.0 [facility] Comment on above: Performed By: #### H STROPN, LIPA, BNP, CMP ####[facility] [address] [place] [address]Dr. Jazzy Powell Creatinine [Mass/Vol] 0.85 mg/dL Normal 0.70-1.30 [facility] Comment on above: Performed By: #### H STROPN, LIPA, BNP, CMP ####[facility] [address] [place] [address]Dr. Jazzy Powell EGFR-AF SOUTH KOREAN >60 Normal >=60 [facility] Comment on above: Performed By: #### H STROPN, LIPA, BNP, CMP ####[facility] [address] [place] [address]Dr. Jazzy Powell EGFR-NON AF [place]OUTH [place]OREAN >60 Normal >=60 [facility] Comment on above: Performed By: #### H STROPN, LIPA, BNP, CMP ####[facility] [address] [place], [place] [address]Dr. Jazzy Powell Globulin (S) [Mass/Vol] 3.4 g/dL Normal [facility] Comment on above: Performed By: #### H STROPN, LIPA, BNP, CMP ####[facility] [address] [place] [address]Dr. Jazzy Powell Glucose [Mass/Vol] 95 mg/dL Normal 74-106 [facility] Comment on above: Performed By: #### H STROPN, LIPA, BNP, CMP ####[facility] [address] [place] [address]Dr. Jazzy Powell Potassium [Moles/Vol] 3.5 mmol/L Normal 3.5-5.1 [facility] Comment on above: Performed By: #### H STROPN, LIPA, BNP, CMP ####[facility] [address] [place] [address]Dr. Jazzy Powell Protein [Mass/Vol] 6.9 g/dL Normal 6.4-8.2 [facility] Comment on above: Performed By: #### H STROPN, LIPA, BNP, CMP ####[facility] [address] [place] [address]Dr. Jazzy Powell Sodium [Moles/Vol] 136 mmol/L Normal 136-145 [facility] Comment on above: Performed By: #### H STROPN, LIPA, BNP, CMP ####[facility] [address] [place] [address]Dr. Jazzy Powell Urea nitrogen [Mass/Vol] 17.0 mg/dL Normal 7.0-18.0 [facility] Comment on above: Performed By: #### H STROPN, LIPA, BNP, CMP ####[facility] [address] [place], [place] [address]Dr. Jazzy Powell Urea nitrogen/Creatinine [Mass ratio] 20.0 mg/mg Normal [facility] Comment on above: Performed By: #### H STROPN, LIPA, BNP, CMP ####[facility] [address] [place], [place] [address]Dr. Jazzy Powell PROTIMEon 05-03-2022 INR Coag (PPP) [Relative time] 0.95 {INR} Normal [facility] Comment on above: Performed By: #### P TT, PT ####[facility] [address] [place], [place] [address]Dr. Jazzy Powell INR GUIDELINES SEE BELOW Normal [facility] Comment on above: Result Comment: ANNEMARIE RED INR: 2.0 - 3.0 CONDITIONS NOT LISTED BELOW 2.5 - 3.5 FOR PROSTHETIC HEART VALVE REPLACEMENT 2.5 - 3.5 RECURRENT THROMBOSIS Performed By: #### P TT, PT ####[facility] [address] [place], [place] [address]Dr. Jazzy Powell PT Coag (PPP) [Time] 10.1 s Normal 9.0-11.6 [facility] Comment on above: Performed By: #### P TT, PT ####[facility] [address] [place], [place] [address]Dr. Jazzy Powell PTTon 03-02-2023 aPTT Coag (Bld) [Time] 28.7 s Normal 22.3-36.2 [facility] Comment on above: Performed By: #### P TT, PT ####[facility] [address] [place], [place] [address]DlCheryl Powell TROPONIN, HIGH SENSITIVITYon 05-03-2022 HSTROP 5.1 pg/mL Normal 4.0-76.1 [facility] Comment on above: Result Comment: CUT- OFF POINTS HAVE BEEN ESTABLISHED BASED ON THE FOURTH UNIVERSAL DEFINITIONS OF MYOCARDIAL INFARCTION. THE UPPER REFERENCE LIMIT (URL) OF TROPONIN, DEFINED THE 99TH PERCENTILE OF cTnI DISTRIBUTION IN A REFERENCE POPULATION, HAS BEEN CONFIRMED THE DECISION THRESHOLD FOR HI DIAGNOSIS. Performed By: #### H STROPN, LIPA, BNP, CMP ####[facility] [address] [place], [place] [address]Ls. Jazzy Powell [facility]on SARS-CoV-2 (COVID-19) RNA ALLIE+probe Ql (Unsp spec) Not detected Normal NOT DETECTED [facility] Comment on above: Result Comment: When diagnostic [...] for this test is supported by the [place] of Health and Human Service's declaration that [...] used). Performed By: #### C VDTBH #### [facility] [address] [place], [place] [address] Dr. Jazzy Powell MRI FOOT LT WO [...] by: EDSON PEACOCK Date: 2022-01-01 08:53 Normal [facility] Office Visit (Cardiology)on 10-19-2021 Follow-up visit Diagnoses/Problems [...] Weight Tips; Status:Complete - Retrospective Authorization; Done: [id number] Some eating tips that can help you lose weight.; Status:Complete - Retrospective Authorization; Done: [id number] SocHx: Current every day smoker Tobacco Use Screening; Status:Complete; Done: [id number] You need to quit smoking.; Status:Complete - Retrospective Authorization; Done: [id number] You need to stop smoking. Though it is not easy, more than half of all adult smokers have quit. We encourage you to write down all the reasons you should quit smoking and set a quit date for yourself. Ask us how we can help. You may also call 7-730-RAJRNOW for free resources and assistance.; Status:Complete - Retrospective Authorization; Done: [id number] Unlinked Stop: Brilinta 90 MG Oral Tablet [...] negative for complaint. Vitals Vital Signs Recorded: [id number] 02:25PM Heart Rate74, L Radial Bfhdqspy404, LUE, Sitting Kdoasjtws46, LUE, Sitting Height6 ft 2 in Qrogjf974 lb BMI Gkpcxmalna24.64 kg (more content not included)... Normal Adreal Tobacco Screening.on 022 Fall risk assessment a) No falls within the last year [facility] [employer] y 250 DO Work Phone: Tobacco use status [facility] a) Yes [facility] LYCEEM y 250 DO Work Phone: Tobacco Screening. Yes [facility] Heart-[facility]ery y 250 DO Work Phone: Christian 07-04-2021 CNPN Telephone (SPNSMN) ASHOK DOSS ([id number]) 1965 M Date Time Provider Department 07/04/21 MEGAN INTERIANO [facility] During your visit today, we recorded [...] Encounter Status:Closed by CHARBEL HILL on 07/04/[address] [facility] CNOVon 06-06-2021 CNOV Office Visit (SPNSMN ) ASHOK DOSS ([id number]) 1965 M Date Time Provider Department 06/06/21 [...] lumbar laminectomy approx. 20 years ago in [place]. Did well post-op with resolution of sciatica. Has had chronic low back pain. Over the last 6 months he describes episodes of his legs feeling like rubber . Would occur randomly. Over the last 3 months he's started to experience this in the arms as well. 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 Normal [facility] Office Visit (Cardiology)on 05-26-2021 Follow-up visit Diagnoses/Problems [...] we can help. You may also call 1-705-YIYT-NOW for free resources and assistance.; Status:Complete - [...] wall myocardial infarction. He was taken to [place] where he had a coronary intervention and [...] have been (more content not included)... Normal Adreal Tobacco Screening.on 022 Adult depression screening assessment No [facility] [employer] 600 DO Work Phone: Heart Rate Regular [facility] [employer] 600 DO Work Phone: Tobacco use status [facility] a) Yes [facility] [employer] 600 DO Work Phone: Tobacco Screening. Yes [facility] [employer] 600 DO Work Phone: Christian 05-17-2021 ARTHUR Telephone (NIQ) ASHOK DOSS ([id number]) 1965 M Date Time Provider Department 05/17/21 ASHIA BERMEO During your visit today, we recorded the following information about you: Liset Lazcano Bench Tool Maker 05/17/2021 12:43 PM Addendum .Received the following record(s) via fax. -XR Foreign Body Eye, MRI Cspine wo Date 05/05/21 Record(s) scanned into pt's chart. Ashia Bermeo APRN.CNP 05/17/2021 3:18 PM Signed Awaiting CD copy of imaging. Ashia Bermeo APRN.MOLDER TRIMMER Allergies As of Date: 05/17/2021 (No Known [...] Encounter Status:Closed by ASHIA BERMEO on 05/17/21 [facility] 05-04-2021 [facility] DOSSASHOK MONROY ([id number]) 1965 M Date Time Provider Department 05/04/21 ASHIA BERMEO NIQ During your visit today, we recorded the following information about you: Liset Jaleesa Bench Tool Maker 05/04/2021 11:44 AM Signed Lulu from [place] requesting an Orbit order. Pt is scheduled tomorrow for MRI. Fax - [facility] - [phone] Catherine Stuart RN 05/04/2021 12:16 PM Signed Neuro SPINE CARE COORDINATION QUICK NOTE MRI Cervical order faxed to provided number. Catherine Stuart RN Planner/Scheduler [facility] 05/04/2021 1:41 PM Signed XR Eye Foreign [...] Encounter Status:Closed by CATHERINE STUART on 05/04/[address] [facility] CNOVon 04-24-2021 CNOV Office Visit (SPNSMN ) SELAMASHOK ([id number]) 1965 M Date Time Provider Department 04/24/21 2:15 PM ASHIA BERMEO SPNSMN During your visit today, we recorded the following information about you: Pulse Respiration Blood pressure Weight 79/minute 18/minute 139/68 118.7 kg Height 1.88 m Ashia Bermeo APRN.MOLDER TRIMMER 04/24/2021 3:14 PM Signed SPINE SURGERY OUTPATIENT [...] lumbar laminectomy approx. 20 years ago in [place]. Did well post-op with resolution of sciatica. [...] Distances ANTIPLATELET OR ANTICOAGULATION STATUS: Yes Previous HI PREVIOUS SPINAL SURGERY: SURGERY #1: L5-S1 Laminectomy in [place] approx. 20 years ago There is no [...] vision or hearing. CARDIOVASCULAR: Hypertension and previous HI RESPIRATORY: Denies SOB, sputum production, and hemoptysis. [...] PHQ-9 04/17/2021 (more content not included)... Normal [facility] Office Visit (Cardiology)on 12-27-2020 Follow-up visit Orders [...] year old male that presents to the [facility] Heart Office with his for follow-up on testing. He follows with his primary traffic supervisor Dr. Stacy and was added to my schedule today. He has a recent history of an HI with cardiac catheterization 11/18/2020 with PCI and [...] see if cardiac rehabilitation is possible at [facility] that is closest to his home. He [...] 1. CAD; with acute inferior ST elevation HI requiring cardiac catheterization 11/18/2020 with PCI and [...] itching CARDIOVASCULAR:N (more content not included)... Normal Adreal Tobacco Screening.on 021 Fall risk assessment a) No falls within the last year -[facility] 127 DO Work Phone: Tobacco use status [facility] a) Yes [facility] [employer] 127 DO Work Phone: Tobacco Screening. Yes [facility] 127 DO Work Phone: Cardiac Stress Teston 2020 [facility] [address], [address], [place], [place] [address] Exercise Stress Test Patient Name: ASHOK DOSS Ordering Physician: [id number] Rachel Stacy MD Study Date: 12/23/2020 Reading Physician: [id number] Antony Pena MD, [facility] MRN/PID: [id number] Supervising Physician: Accession/Order#: [id number] Referring Physician: [id number] RACHEL STACY Date of : 1965 PCP: Gender: M Fellow: Height: 187.96 cm Nurse: Frida Dewey RN Weight: 119.75 kg Operating Room Aide: N/A BSA: 2.45 m2 Technologist: BMI: 33.90 kg/m2 Additional Staff: Age: 55 years cc report to: Patient Location: [facility] cc report to: [id number] Rachel Stacy MD Study Type: Cardiac Stress Test Diagnosis/ICD: I25.10-Atherosclerotic heart disease; I21.19-ST elevation (STEMI) myocardial infarction involving other coronary artery of inferior wall Indication: CAD, INF. HI Procedure/CPT: Stress Test Interpretation-[id number]; Stress Test Supervision-[id number] Falls Risk: Patient Performance: The patient exercised [...] The inadequate level of stress was achieved. [id number] Pena MD, [facility] Electronically signed on 12/23/2020 at 5:13:30 PM Final Normal [facility] Cardiac Stress Test MP-No rth [facility] [place] [address] [place] Work Phone: Echocardiogramon 12-23-2020 Echocardiography [facility] [address] [place] [address], Suite [facility] [place] [address] TRANSTHORACIC ECHOCARDIOGRAM REPORT Patient Name: ASHOK DOSS Sindy Physician: [id number] Pena MD, FAC Study Date: 12/23/2020 Referring Physician: [id number] RACHEL STACY MRN/PID: [id number] PCP: Colten Parra MD Accession/Order#: [id number] Department Location: [facility] Date of : 1965 Fellow: Gender: M Nurse: Admit Date: Operating Room Aide: Latanya Yadav RDCS, RT(R), RDMS, RVT Height: 187.96 cm CC Report to: Weight: 119.75 kg Study Type: Echocardiogram BSA: 2.45 m2 Diagnosis/ICD: I25.10-Atherosclerotic heart disease of [place] coronary artery without angina pectoris; I21.19-ST elevation (STEMI) myocardial infarction involving other coronary artery of inferior wall Indication: HTN PTCA Procedure/CPT: Echo Complete w Full Doppler-[id number] Study Detail: The following Echo studies were [...] 0.8 m/s (0.6-0.9m/s) PV Max P.5 mmHg [id number] Antony Pena MD, FACC Electronically signed on 12/23/2020 at 11:56:24 AM Final Normal [facility] Echocardiography Please click on the link to view the study images Normal -[facility] [address] [place] Work Phone: Discharge Planning Pjoa7lq 0 11-20-2020 Discharge Planning Note2 Discharge Planning: Discharge Barriersnone Planned Dispositionhome [facility] < 20no PCP/Next Provider Follow Up Scheduledyes Anticipated Discharge [id number] Discharge Planning 11/20/20 tcc NOTE: ROUNDED WITH NURSING, PT ADMITTED FOR NSTEMI, STARTED ON BRILINTA. ADDED FABRIC LAY OUT WORKER REFERRAL TO FOLLOW OUTPT . PT TO BE DISCHARGED WITH PRESCRIPTION FOR BRILINTA. DISCOUNT BRILINTA CARD PROVIDED TO NURSING WITH [facility] . PT TO BE DISCHARGED HOME ON THIS DATE. NO FURTHER NEEDS IDENTIFIED. NURSING AM-PAC 24, PLAN IS HOME WITH FAMILY. ANJELICA RUSS RN TCC Assessment: Discharge Planning Assessment [id number] Discharge Documentation: Discharge/Transfer Date/[id number] 14:21 Discharged Accompanied Byspouse Discharge Modeambulatory Transportation Methodprivate car Valuables/Medications/B elongings Returnedyes Final DispositionHome Electronic Signatures: Anjelica Russ (CONCRETE MIXER) (Signed 20-Nov-2020 13:02) Authored: Discharge Planning, Assessment Madhavi Moore (RN) (Signed 20-Nov-2020 14:21) Authored: Discharge Planning, Discharge Documentation Last Updated: 20-Nov-2020 14:21 by Madhavi Moore (RN) Normal [facility] Discharge [id number] 021 Discharge Profile2 Discharge Orders: Anticipated Discharge Date: Anticipated Discharge [id number] Anticipated Discharge Time12:18 Problem List: Additional Dx: [...] hour away, and will be seeking a traffic supervisor closer to home, but will be seen at [facility] with me within 1 week to [...] Physician/Dept/ServiceP nacho call Dr. Stacy's office at [phone], patient should be seen within the next week. Call to Schedule in1 week Electronic Signatures: Rachel Stacy) (Signed 20-Nov-2020 12:27) Authored: Discharge Orders, Hospital Course (Home Care/Gold Form), Provider FINAL REVIEW of Orders, Appointments, Gold Form - Research Animal Facility Supervisor Summary Last Updated: 20-Nov-2020 12:27 by Rachel Stacy) [facility] Order Reconciliationon 11-20 Order Reconciliation Page [...] tab(s) orally 2 times a day Normal [facility] APTTon 11-19-2020 APTT Canceled Normal [facility] Comment on above: Order Comment: TEST APTT WAS CANCELLED, 11/19/2020 03:59 DUPLICATE ORDER. Result Comment: THE APTT IS NO LONGER USED FOR MONITORING UNFRACTIONATED HEPARIN THERAPY. FOR MONITORING HEPARIN THERAPY, USE THE HEPARIN ASSAY. Performed By: #### A PTT ####[facility] [place], [place] [id number] aPTT Coag (Bld) [Time] 28 s Normal 25 - 35 [facility] Comment on above: Result Comment: THE APTT IS NO LONGER USED FOR MONITORING UNFRACTIONATED HEPARIN THERAPY. FOR MONITORING HEPARIN THERAPY, USE THE HEPARIN ASSAY. Performed By: #### A PTT #### [address] [id number] BASIC METABOLIC PANELon 11-02 Anion gap [Moles/Vol] 12 mmol/L Normal 10 - 20 [facility] Comment on above: Performed By: #### B MP #### [address] [id number] Calcium [Mass/Vol] 8.4 mg/dL Low 8.6 - 10.3 [facility] Comment on above: Performed By: #### B MP #### [address] [id number] Chloride [Moles/Vol] 109 mmol/L High 98 - 107 [facility] Comment on above: Performed By: #### B MP #### [address] [id number] Creatinine [Mass/Vol] 0.83 mg/dL Normal 0.50 - 1.30 [facility] Comment on above: Performed By: #### B MP #### [address] [id number] GFR- AM. >60 Normal >60 [facility] Comment on above: Result Comment: CALC ULATIONS OF ESTIMATED GFR ARE PERFORMED USING THE MDRD STUDY EQUATION FOR THE IDMS-TRACEABLE CREATININE METHODS. CLIN CHEM 2007;53:766-72 Performed By: #### B MP #### [address] [id number] GFR-NON AM. >60 Normal >60 [facility] Comment on above: Performed By: #### B MP #### [address] [id number] Glucose [Mass/Vol] 115 mg/dL High 74 - 99 [facility] Comment on above: Performed By: #### B MP #### [address], [place] [id number] HCO3 (Bld) [Moles/Vol] 23 mmol/L Normal 21 - 32 [facility] Comment on above: Performed By: #### B MP #### [address] [id number] Potassium [Moles/Vol] 3.8 mmol/L Normal 3.5 - 5.3 [facility] Comment on above: Performed By: #### B MP #### [address] [id number] Sodium [Moles/Vol] 140 mmol/L Normal 136 - 145 [facility] Comment on above: Performed By: #### B MP #### [address] [id number] Urea nitrogen [Mass/Vol] 20 mg/dL Normal 6 - 23 [facility] Comment on above: Performed By: #### B MP #### [address] [id number] CBCon 11-19-2020 Erythrocyte distribution width (RBC) [Ratio] 13.3 % Normal 11.5 - 14.5 [facility] Comment on above: Performed By: #### C BC ####[facility] [place], [place] [id number] Hematocrit (Bld) [Volume fraction] 41.2 % Normal 41.0 - 52.0 [facility] Comment on above: Performed By: #### C BC ####[facility] [place], [place] [id number] Hemoglobin (Bld) [Mass/Vol] 13.5 g/dL Normal 13.5 - 17.5 [facility] Comment on above: Performed By: #### C BC ####[address] [place], [place] [id number] MCHC (RBC) [Mass/Vol] 32.8 g/dL Normal 32.0 - 36.0 [facility] Comment on above: Performed By: #### C BC ####[facility] [place], [place] [id number] MCV (RBC) [Entitic vol] 93 fL Normal 80 - 100 [facility] Comment on above: Performed By: #### C BC ####[facility] [place], [place] [id number] Platelets (Bld) [#/Vol] 333 10*3/uL Normal 150 - 450 [facility] Comment on above: Performed By: #### C BC ####[facility] [place], [place] [id number] RBC 4.42 x10E12/L Low 4.50 - 5.90 [facility] Comment on above: Performed By: #### C BC ####[address] [place], [place] [id number] WBC (Bld) [#/Vol] 22.9 10*3/uL High 4.4 - 11.3 [facility] Comment on above: Performed By: #### C BC ####[address] [place], [place] [id number] Consult-Critical Careon 11-02 Consult-Critical Care Service: Service: Critical Care Consult: Consult requested by (Attending Name): Rachel Stacy Reason: ICU MANAGEMENT History of Present Illness: Admission Reason: Inferior Wall STEMI HPI: ASHOK DOSS is a 55 year old Male Pmhx HTN and active smoker Presented to [facility] ED via [place] camp[place] d/t Chest pain. Described it as crushing mid sternal pain with radiation to the Left arm. He went to [facility] Last week d/t CP and had respiratory complaints and was sent home and was told he had bronchitis and CP could be 2/2 to. He states he had CP before but never like this, he associated complaints with diaphoresis, presyncopal x2 and weakness. No history of HI before but he is an active pack [...] ankle surgery, carpal tunnel Family history: Father HI, CHF Mother: CAD Social History: Pack a [...] prophylaxis Heme/ID: Elevated WBC 2/2 reactive to HI SCDs for DVT prophylaxis, Enoxaparin -pharmacological DVT measures -hold for now Msk/Integumentaty PT/OT Social/family/dispo: admit to ICU Code; Full *Plan discussed at length with bedside RN and Dr. Zaid Posey MD Consult Status: Consult Order ID: [id number] Attestation: Note Completion: I am a: Advanced Practice Provider Attending Only - Shared Visit with Advanced Practice ProviderThis is a shared visit. I have revi (more content not included)... Normal [facility] Daily Progress Note - Critic al Care-SICUon [...] 150-170mmhg. Objective Data: Objective Information T PRBPSpO2 Value37.39431931/7799% Date/Time11/19 1:30918 17:419 17:419 17:419 17:41 Range(37.1C - 37.1C ) (66 - 98 ) (12 - 28 ) (108 - 178 )/ (51 - 97 ) (94% - 100% ) As of 18-Nov-2020 21:05:00, patient is on 3 L/min of oxygen via room air. Highest temp of 37.1 C was recorded at 11/18 21:05 Pain reported at 11/19 7:30: 0 = None ---- Intake and Output ----- Mn/Dy/Year TimeInt[facility]OutEC[facility] Nov 19, 2020 6:00 [id number] The Intake and Output Totals for the last 24 hours are: IntakeOutrehabilitation hospital of southern new mexicoNet [id number] Date: Weight/Scale Type: 18-Nov-2020 23:08750.7 kg Physical Exam by System: Neurological: alert [...] the bedside L3 Electronic Signatures: Leia Stearns (REDIPPER-MOLDER TRIMMER) (Signed 19-Nov-2020 18:30) Authored: Service, Subjective Data, Objective Data, Assessment and Plan José Miguel Posey) (Signed 19-Nov-2020 22:22) Authored: Note Completion Last Updated: 19-Nov-2020 22:22 by José Miguel Posey) [facility] Daily Progress Note-Cardiolo gayle 11-19-2020 Daily Progress [...] 2. Objective Data: Objective Information: T PRBPSpO2 Value37.52973658/8297% Date/Time11/19 1: 13: 13: 13: 13:30 Range(37.1C [...] ----- Mn/Dy/Year TimeIntakeOutputNet Nov 19, 2020 6:00 [id number] The Intake and Output Totals for the last 24 hours are: IntakeOutputNet [id number] Recent Lab Results: Results: CBC: 11/19/2020 05:23 [...] Updated: 19-Nov-2020 17:17 by Rachel Stacy) Normal [facility] HEPARIN ASSAY,UFHon 11-20-19 21 HEPARIN ASSAY,UFH 0.2 IU/mL Normal [facility] Comment on above: Result Comment: The therapeutic reference range for UFH may be either 0.3-0.6 IU/mL or 0.3-0.7 IU/mL based on the clinical setting for anticoagulant therapy and the associated nomogram used. For heparin dosing guidelines based on clinical scenario and Heparin Assay results, please refer to local Pharmacy and the [facility] Guidelines for Anticoagulation therapy available on the [facility] intranet at: [email or web address] [email or web address]/Pages/Wendel_[facility]_Rene james_for_Anticoagu.aspx Performed By: #### T ROP2 #### [address] [id number] HEPARIN ASSAY,UFH 0.2 IU/mL Normal [facility] Comment on above: Result Comment: The therapeutic reference range for UFH may be either 0.3-0.6 IU/mL or 0.3-0.7 IU/mL based on the clinical setting for anticoagulant therapy and the associated nomogram used. For heparin dosing guidelines based on clinical scenario and Heparin Assay results, please refer to local Pharmacy and the [facility] Guidelines for Anticoagulation therapy available on the [facility] intranet at: [email or web address]/Pharmacy/Pages/Wendel_[facility]_Guid elines_for_Anticoagu.aspx Performed By: #### T ROP2 #### [address] [id number] HEPARIN ASSAY,UFH <0.1 Normal [facility] Comment on above: Result Comment: The therapeutic reference range for UFH may be either 0.3-0.6 IU/mL or 0.3-0.7 IU/mL based on the clinical setting for anticoagulant therapy and the associated nomogram used. For heparin dosing guidelines based on clinical scenario and Heparin Assay results, please refer to local Pharmacy and [facility] Guidelines for Anticoagulation therapy available on the [facility] intranet at: [email or web address]/Pharmacy/Pages/Wendel_[facility]_Guid elines_for_Anticoagu.aspx Performed By: #### T ROP2 #### [address] [id number] MAGNESIUMon 11-19-2020 Magnesium [Mass/Vol] 1.80 mg/dL Normal 1.60 - 2.40 [facility] Comment on above: Performed By: #### T ROP2 #### [address] [id number] Measurementson 11-19-2020 Measurements Weight: Weight in kg124.7 kilogram(s) Height: Height in cm188 centimeter(s) Nicaraguan Unit Translation (pounds, inches): Measurement Nicaraguan Unit Translations (Adult only): Weight in tyr368.916 pound(s) Electronic Signatures: Maggie Muir (STAFF N) (Signed 18-Nov-2020 23:08) Authored: Weight, Height, Nicaraguan Unit Translation (pounds, inches) Last Updated: 18-Nov-2020 23:08 by Maggie Muir (STAFF N) Normal [facility] PT/INRon 11-19-2020 PROTHROMBIN TIME Canceled Normal [facility] Comment on above: Order Comment: TEST PT/INR WAS CANCELLED, 11/19/2020 01:33 Performed By: #### P TINR #### [address] [id number] PT, INR Canceled Normal [facility] Comment on above: Order Comment: TEST PT/INR WAS CANCELLED, 11/19/2020 01:33 Performed By: #### P TINR #### [address], [place] [id number] PT Coag (PPP) [Time] 12.8 s Normal 10.1 - 13.3 [facility] Comment on above: Performed By: #### P TINR #### [address] [id number] PT, INR 1.1 Normal 0.9 - 1.1 [facility] Comment on above: Performed By: #### P TINR #### [address] [id number] TROPONIN Ion 11-19-2020 Troponin I.cardiac [Mass/Vol] 10.69 ng/mL Critically high 0.00 - 0.03 [facility] Comment on above: Order Comment: Hedy d- RB to Shelia GOODMAN , 11/19/2020 21:43 [...] is performed using different testing methodology at [facility] than at other [facility]. Direct result comparisons should only be made within the same method. Called- RB to Shelia GOODMAN , 11/19/2020 21:43 Performed By: #### T ROP2 #### [address] [id number] Troponin I.cardiac [Mass/Vol] 12.77 ng/mL Critically high 0.00 - 0.03 [facility] Comment on above: Order Comment: Hedy JOSE [...] is performed using different testing methodology at [facility] than at other [facility]. Direct result comparisons should only be made within the same method. Called- RB to Michaelle David, 11/19/2020 13:36 Performed By: #### T ROP2 #### [address] [id number] Troponin I.cardiac [Mass/Vol] 18.39 ng/mL Critically high 0.00 - 0.03 [facility] Comment on above: Order Comment: Hedy JOSE [...] is performed using different testing methodology at [facility] than at other [facility]. Direct result comparisons should only be made within the same method. Called- RB to Omar Muir, 11/19/2020 06:26 Performed By: #### T ROP2 #### [address] [id number] TROPONIN I Canceled Normal [facility] Comment on above: Order Comment: Hedy JOSE [...] is performed using different testing methodology at [facility] than at other [facility]. Direct result comparisons should only be made within the same method. Performed By: #### T ROP2 #### [facility] [address] [place], [place] [id number] Troponin I.cardiac [Mass/Vol] 17.54 ng/mL Critically high 0.00 - 0.03 [facility] Comment on above: Order Comment: Hedy JOSE to Bandar Cesar, 11/19/2020 02:22 Result Comment: LESS THAN 0.04 [...] is performed using different testing methodology at [facility] than at other [facility]. Direct result comparisons should only be made within the same method. Marce- RB to Bandar Cesar, 11/19/2020 02:22 Performed By: #### T ROP2 ####[facility] [place], [place] [id number] ACT-LOW RANGEon 11-18-2020 ACT-LOW RANGE 294 SECONDS High 89 - 169 [facility] Comment on above: Result Comment: Note new reference range as of 06/06/2018. Target ACT range will vary based on the patient population, clinical status, and surgical intervention occurring. Performed By: #### T ROP2 #### [facility] [address] [place], [place] [id number] ACT-LOW RANGE 207 SECONDS High 89 - 169 [facility] Comment on above: Result Comment: Note new reference range as of 06/06/2018. Target ACT range will vary based on the patient population, clinical status, and surgical intervention occurring. Performed By: #### T ROP2 #### [address] [id number] BNPon 11-18-2020 Natriuretic peptide B (Bld) [Mass/Vol] 33 pg/mL Normal 0 - 99 [facility] Comment on above: Result Comment: . <1 00 pg/mL - Heart failure unlikely 100-299 pg/mL - Intermediate probability of acute heart . failure exacerbation. Correlate with clinical . context and patient history. >=300 pg/mL - Heart Failure likely. Correlate with clinical . context and patient history. BNP testing is performed using different testing methodology at [facility] than at [facility]. Direct result comparisons should only be made within the same method. Performed By: #### B MP #### [address] [id number] CBCon 11-18-2020 Erythrocyte distribution width (RBC) [Ratio] 13.3 % Normal 11.5 - 14.5 [facility] Comment on above: Performed By: #### C BC ####[address] [place], [place] [id number] Hematocrit (Bld) [Volume fraction] 44.7 % Normal 41.0 - 52.0 [facility] Comment on above: Performed By: #### C BC ####[address] [id number] Hemoglobin (Bld) [Mass/Vol] 14.6 g/dL Normal 13.5 - 17.5 [facility] Comment on above: Performed By: #### C BC ####[address] [id number] MCHC (RBC) [Mass/Vol] 32.7 g/dL Normal 32.0 - 36.0 [facility] Comment on above: Performed By: #### C BC ####[address] [place], [place] [id number] MCV (RBC) [Entitic vol] 92 fL Normal 80 - 100 [facility] Comment on above: Performed By: #### C BC ####[facility] [place], [place] [id number] Platelets (Bld) [#/Vol] 395 10*3/uL Normal 150 - 450 [facility] Comment on above: Performed By: #### C BC ####[address] [place], [place] [id number] RBC 4.85 x10E12/L Normal 4.50 - 5.90 [facility] Comment on above: Performed By: #### C BC ####[address] [place], [place] [id number] WBC (Bld) [#/Vol] 21.9 10*3/uL High 4.4 - 11.3 [facility] Comment on above: Performed By: #### C BC ####[address] [id number] CHEST 1 VIEWon 11-18-2020 CHEST 1 VIEW STUDY: Chest Radiograph; 11/18/2020 7:22 PM. INDICATION: Concern for dissection, chest pain. COMPARISON: None Available. ACCESSION NUMBER(S): [id number] ORDERING CLINICIAN: JERRY BLAIR MD TECHNIQUE: Frontal chest was obtained at 1919 hours. FINDINGS: CARDIOMEDIASTINAL SILHOUETTE: Cardiomediastinal silhouette is normal in size and configuration. LUNGS: Lungs are clear. ABDOMEN: No remarkable upper abdominal findings. BONES: No acute osseous changes. IMPRESSION: No acute cardiopulmonary process seen. Signed by Racquel Griffiths MD Electronically signed by: RACQUEL GRIFFITHS MD Normal [facility] COMPREHENSIVE PANELon 2020 Albumin [Mass/Vol] 4.2 g/dL Normal 3.4 - 5.0 [facility] Comment on above: Performed By: #### C MP ####[address] [id number] ALP [Catalytic activity/Vol] 74 U/L Normal 33 - 120 [facility] Comment on above: Performed By: #### C MP ####[address] [id number] ALT [Catalytic activity/Vol] 19 U/L Normal 10 - 52 [facility] Comment on above: Result Comment: Carmelita ents treated with Sulfasalazine may generate falsely decreased results for ALT. Performed By: #### C MP ####[address] [id number] Anion gap [Moles/Vol] 12 mmol/L Normal 10 - 20 [facility] Comment on above: Performed By: #### C MP ####[address] [id number] AST [Catalytic activity/Vol] 15 U/L Normal 9 - 39 [facility] Comment on above: Performed By: #### C MP ####[address] [id number] Bilirubin [Mass/Vol] 0.3 mg/dL Normal 0.0 - 1.2 [facility] Comment on above: Performed By: #### C MP ####[address] [id number] Calcium [Mass/Vol] 9.4 mg/dL Normal 8.6 - 10.3 [facility] Comment on above: Performed By: #### C MP ####[address] [id number] Chloride [Moles/Vol] 107 mmol/L Normal 98 - 107 [facility] Comment on above: Performed By: #### C MP ####[address] [id number] Creatinine [Mass/Vol] 1.12 mg/dL Normal 0.50 - 1.30 [facility] Comment on above: Performed By: #### C MP ####[address] [id number] GFR- AM. >60 Normal >60 [facility] Comment on above: Result Comment: CALC ULATIONS OF ESTIMATED GFR ARE PERFORMED USING THE MDRD STUDY EQUATION FOR THE IDMS-TRACEABLE CREATININE METHODS. CLIN CHEM 2007;53:766-72 Performed By: #### C MP ####[address] [id number] GFR-NON AM. >60 Normal >60 [facility] Comment on above: Performed By: #### C MP ####[address] [id number] Glucose [Mass/Vol] 113 mg/dL High 74 - 99 [facility] Comment on above: Performed By: #### C MP ####[address] [id number] HCO3 (Bld) [Moles/Vol] 28 mmol/L Normal 21 - 32 [facility] Comment on above: Performed By: #### C MP ####[address] [id number] Potassium [Moles/Vol] 3.8 mmol/L Normal 3.5 - 5.3 [facility] Comment on above: Performed By: #### C MP ####[address] [id number] Protein [Mass/Vol] 7.0 g/dL Normal 6.4 - 8.2 [facility] Comment on above: Performed By: #### C MP ####[address] [id number] Sodium [Moles/Vol] 143 mmol/L Normal 136 - 145 [facility] Comment on above: Performed By: #### C MP ####[address] [id number] Urea nitrogen [Mass/Vol] 19 mg/dL Normal 6 - 23 [facility] Comment on above: Performed By: #### C MP ####[address] [id number] CORONAVIRUS 2019, SCREEN ASY MPTOMATICon 11-18-2020 SARS-CoV-2 (COVID-19) RNA ALLIE+probe Ql (Unsp spec) Not detected Normal Not Detected [facility] Comment on above: Result Comment: . This test has received FDA Emergency Use Authorization (EUA) and has been verified by [facility] This test is only authorized for the duration of time that circumstances exist to justify the authorization of the emergency use of in vitro diagnostic tests for the detection of SARS-CoV-2 virus and/or diagnosis of COVID-19 infection under section 564(b)(1) of the Act, 21 U.S.C. 360bbb-3(b)(1), unless the authorization is terminated or revoked sooner. [facility] is certified under CLIA-88 as qualified to perform high complexity testing. Testing is performed in the [facility] laboratory located at [address] [place] [address]. SARS-CoV-2/Flu/RSV Multiplex Test: Fact sheet for providers: https://www.fda.gov/media/360097/download Fact sheet for patients: https://www.fda.gov/media/977871/download Performed By: #### C OVSC ####[address] [id number] Lab Specimen Source Nasal, Nasopharyngeal Normal [facility] Comment on above: Performed By: #### C OVSC ####[address] [id number] Covid 19 Resultson SARS-CoV-2 (COVID-19) RNA ALLIE+probe [...] You may also be contacted by the [facility] to see if any of your close [...] or Naproxen (Aleve) can also be used. Mbdj-psm-tsmhomv cough and cold medicines can be used according to the instructions on the package. Some elvh-gwu-miykrmc medicines also contain acetaminophen. Make sure you [...] water are not available, use alcohol-based hand senior procurement specialist. Avoid touching your eyes, nose, and mouth [...] 24 oliva (more content not included)... Normal [facility] PCI (Percutaneous Cardiac In tervention)on 11-18-2020 PCI (Percutaneous Cardiac Intervention) [facility], Technical Spec [address] [place] [address] Cardiovascular Catheterization Report Patient Name: Ashok Doss Performing Physician: [id number] Stacy MD Study Date: 11/18/2020 Verifying Physician: [id number] Rachel Stacy MD MRN/PID: [id number] Magistrate Judge: Accession/Order#: [id number] Referring Physician: [id number] José Miguel Posey MD Date of : 1965 Referring Physician: Gender: M Referring Physician: Sheridan Stcay MD Study: Left Heart Catheterization Indications: Ashok [...] a modified Seldinger technique. Subsequently a 6 American sheath was placed in the right femoral [...] less than 10% distal stenosis. First septal manager salt is moderately large and has 0% stenosis. [...] used. Complications (more content not included)... Normal [facility] Provider Note - ED v3on 11-02 Provider Note - ED v3 Provider Note: [...] try and relieve some of his symptoms. Technical Spec was activated prehospital and the Technical Spec team was at the bedside upon his arrival. Obtained a quick chest x-ray given he reported that the pain was sharp and radiating to his arm which not show pneumothorax and did not show a widened mediastinum so I doubt he is having dissection. Technical Spec was available so patient was taken directly to Technical Spec for percutaneous intervention for his ST segment elevation HI. I did speak with the web weaver team to let them know that the patient be coming to them afterwards. DIAGNOSIS: STEMI DISPOSITION: 1) Technical Spec HISTORY OF PRESENTING ILLNESS ASHOK is a [...] Updated: 18-Nov-2020 20:27 by Jerry Blair) Normal [facility] TROPONIN Ion 11-18-2020 Troponin I.cardiac [Mass/Vol] 0.03 ng/mL Normal 0.00 - 0.03 [facility] Comment on above: Result Comment: LESS THAN [...] is performed using different testing methodology at [facility] than at other [facility]. Direct result comparisons should only be made within the same method. Performed By: #### T ROP2 ####[facility] [place], [place] [id number] Troponinon 05-05-2020 Troponin I.cardiac [Mass/Vol] 7 ng/L Normal 0-22 [facility] Comment on above: Result Comment: High Sensitivity Troponin values cannot be compared with other Troponin methodologies. Patients with high levels of Biotin oral intake (i.e >5mg/day) may have falsely decreased Troponin levels. Samples collected within 8 hours of biotin intake may require additional information for diagnosis. Performed By: #### T ALEXANDRAI #### [employer] [address] [place] [address] [id number] Sow Farm Manager: Shane Peña MD Troponin I.cardiac [Mass/Vol] NOT REPORTED [employer] Phone: Troponin T.cardiac [Mass/Vol] NOT REPORTED <0.03 ng/mL [employer] Phone: Troponin, High Sensitivity 7 ng/L 0 - 22 ng/L [employer] Phone: Comment on above: High Sensitivity Troponin values cannot be compared with other Troponin methodologies. Patients with high levels of Biotin oral intake (i.e >5mg/day) may have falsely decreased Troponin levels. Samples collected within 8 hours of biotin intake may require additional information for diagnosis. Troponinon 05-04-2020 Troponin I.cardiac [Mass/Vol] NOT REPORTED Normal [facility] Comment on above: Performed By: #### T ALEXANDRAI #### [employer] [address] [place], [place] [id number] Sow Farm Manager: Shane Peña MD CBCon 05-03-2020 Erythrocyte distribution width (RBC) [Ratio] 12.9 % Normal 11.8-14.4 [facility] Comment on above: Performed By: #### C BC, CP, LIPR, TSH #### [facility] [employer] [address] [place] [address] Sow Farm Manager: Shane Peña MD Hematocrit (Bld) [Volume fraction] 43.3 % Normal 40.7-50.3 [facility] Comment on above: Performed By: #### C BC, CP, LIPR, TSH #### [facility] [employer] [address] [place] [address] [employer] Manager: Shane Peña MD Hemoglobin (Bld) [Mass/Vol] 14.0 g/dL Normal 13.0-17.0 [facility] Comment on above: Performed By: #### C BC, CP, LIPR, TSH #### [facility] [employer] [address] [place] [address] 616[address] S[employer] Manager: Shane Peña MD MCH (RBC) [Entitic mass] 29.6 pg Normal 25.2-33.5 [facility] Comment on above: Performed By: #### C BC, CP, LIPR, TSH #### [facility] [employer] [address] [place] [address] Sow Farm Manager: Shane Peña MD MCHC (RBC) [Mass/Vol] 32.3 g/dL Normal 28.4-34.8 [facility] Comment on above: Performed By: #### C BC, CP, LIPR, TSH #### [facility] [employer] [address] [place] [address] S[employer] Manager: Shane Peña MD MCV (RBC) [Entitic vol] 91.5 fL Normal 82.6-102.9 [facility] Comment on above: Performed By: #### C BC, CP, LIPR, TSH #### [facility] [employer] [address] [place] [address] 16847 Sow Farm Manager: Shane Peña MD NRBC Automated 0.0 per 100 WBC Normal 0.0 [facility] Comment on above: Performed By: #### C BC, CP, LIPR, TSH #### [facility] [employer] [address] [place] [address] Sow Farm Manager: Shane Peña MD Platelet mean volume (Bld) [Entitic vol] 9.1 fL Normal 8.1-13.5 [facility] Comment on above: Performed By: #### C BC, CP, LIPR, TSH #### [facility] [employer] [address] [place] [address] Sow Farm Manager: Shane Peña MD Platelets (Bld) [#/Vol] 410 10*3/uL Normal 138-453 [facility] Comment on above: Performed By: #### C BC, CP, LIPR, TSH #### [facility] [employer] [address] [place] [address] Sow Farm Manager: Shane Peña MD RBC (Bld) [#/Vol] 4.73 10*6/uL Normal 4.21-5.77 [facility] Comment on above: Performed By: #### C BC, CP, LIPR, TSH #### [facility] [employer] [address] [place] [address] 74582 S[employer] Farm Manager: Shane Peña MD WBC (Bld) [#/Vol] 14.2 10*3/uL High 3.5-11.3 [facility] Comment on above: Performed By: #### C BC, CP, LIPR, TSH #### [facility] [employer] [address] [place] [address] 332[address] Sow Farm Manager: Shane Peña MD Erythrocyte distribution width (RBC) [Ratio] 12.9 % 11.8 - 14.4 % [facility] [employer] Phone: Hematocrit (Bld) [Volume fraction] 43.3 % 40.7 - 50.3 % [facility] Phone: Hemoglobin (Bld) [Mass/Vol] 14.0 g/dL 13 - 17 g/dL [employer] Phone: Interpretation and review of laboratory results Abnormal [employer] Phone: MCH (RBC) [Entitic mass] 29.6 pg 25.2 - 33.5 pg [employer] Phone: MCHC (RBC) [Mass/Vol] 32.3 g/dL 28.4 - 34.8 g/dL [employer] Phone: MCV (RBC) [Entitic vol] 91.5 fL 82.6 - 102.9 fL [employer] Phone: Platelet mean volume (Bld) [Entitic vol] 9.1 fL 8.1 - 13.5 fL [employer] Phone: Platelets (Bld) [#/Vol] 410 10*3/uL [employer] Phone: RBC (Bld) [#/Vol] 4.73 10*6/uL 4.21 - 5.7 7 m/uL [employer] Phone: WBC (Bld) [#/Vol] 0.0 10*3/uL 0.0 per 10 0 WBC [employer] Phone: WBC (Bld) [#/Vol] 14.2 10*3/uL High [employer] Phone: Comp Metabolic Profon 2020 (cont.) Normal [facility] Comment on above: Result Comment: Aver age GFR for 50-59 years old: 93 mL/min/1.73sq m Chronic Kidney Disease: <60 mL/min/1.73sq m Kidney failure: <15 mL/min/1.73sq m eGFR calculated using average adult body mass. Additional eGFR calculator available at: http://www.[employer]/multiple_crcl_2011.htm Performed By: #### C BC, CP, LIPR, TSH #### [facility] [address] [place] [address] Sow [employer] Manager: Shane Peña MD Albumin [Mass/Vol] 4.1 g/dL Normal 3.5-5.2 [facility] Comment on above: Performed By: #### C BC, CP, LIPR, TSH #### [facility] [address] [place] [address] S[employer] Manager: Shane Peña MD Albumin/Globulin [Mass ratio] 1.8 {ratio} Normal 1.0-2.5 [facility] Comment on above: Performed By: #### C BC, CP, LIPR, TSH #### [facility] [employer] [address] [place] [address] Sow Farm Manager: Shane Peña MD Alkaline Phos 80 U/L Normal 40-129 [facility] Comment on above: Performed By: #### C BC, CP, LIPR, TSH #### [facility] [employer] [address] [place] [address] 52448 Sow [employer] Manager: Shane Peña MD ALT [Catalytic activity/Vol] 18 U/L Normal 5-41 [facility] Comment on above: Performed By: #### C BC, CP, LIPR, TSH #### [facility] [employer] [address] [place] [address] S[employer] Manager: Shane Peña MD Anion gap [Moles/Vol] 9 mmol/L Normal 9-17 [facility] Comment on above: Performed By: #### C BC, CP, LIPR, TSH #### [facility] [address] [place] [address] 98520 Sow Farm Manager: Shane Peña MD AST [Catalytic activity/Vol] 15 U/L Normal <40 [facility] Comment on above: Performed By: #### C BC, CP, LIPR, TSH #### [facility] [employer] [address] [place] [address]991 Sow Farm Manager: Shane Peña MD Bilirubin Ql (U) 0.32 mg/dL Normal 0.3-1.2 [facility] Comment on above: Performed By: #### C BC, CP, LIPR, TSH #### [facility] [address] [place] [address] 68426 S[employer] Manager: Shane Peña MD Calcium [Mass/Vol] 9.4 mg/dL Normal 8.6-10.4 [facility] Comment on above: Performed By: #### C BC, CP, LIPR, TSH #### [facility] [employer] [address] [place] [address] 66[address] Sow Farm Manager: Shane Peña MD Chloride [Moles/Vol] 102 mmol/L Normal 98-107 [facility] Comment on above: Performed By: #### C BC, CP, LIPR, TSH #### [facility] [employer] [address] [place] [address] 85859 S[employer] Manager: Shane Peña MD CO2 [Moles/Vol] 26 mmol/L Normal 20-31 [facility] Comment on above: Performed By: #### C BC, CP, LIPR, TSH #### [facility] [employer] [address] [place] [address] 35[address] Sow Farm Manager: Shane Peña MD Creatinine [Mass/Vol] 0.86 mg/dL Normal 0.70-1.20 [facility] Comment on above: Performed By: #### C BC, CP, LIPR, TSH #### [facility] [address] [place] [address] 00337 Sow Farm Manager: Shane Peña MD GFR, Amer >60 Normal >60 [facility] Comment on above: Performed By: #### C BC, CP, LIPR, TSH #### [facility] [employer] [address] [place] [address] 96490 S[employer] Farm Manager: Shane Peña MD GFR,non Amer >60 Normal >60 [facility] Comment on above: Performed By: #### C BC, CP, LIPR, TSH #### [facility] [employer] [address] [place] [address] 60098 Sow Farm Manager: Shane Peña MD Glucose [Mass/Vol] 95 mg/dL Normal 70-99 [facility] Comment on above: Performed By: #### C BC, CP, LIPR, TSH #### [facility] [address] [place] [address] 04232 Sow Farm Manager: Shane Peña MD Potassium [Moles/Vol] 4.3 mmol/L Normal 3.7-5.3 [facility] Comment on above: Performed By: #### C BC, CP, LIPR, TSH #### [facility] [employer] [address] [place] [address] 10254 S[employer] Farm Manager: Shane Peña MD Protein [Mass/Vol] 6.4 g/dL Normal 6.4-8.3 [facility] Comment on above: Performed By: #### C BC, CP, LIPR, TSH #### [facility] [employer] [address] [place] [address] 56672 Sow Farm Manager: Shane Peña MD Sodium [Moles/Vol] 137 mmol/L Normal 135-144 [facility] Comment on above: Performed By: #### C BC, CP, LIPR, TSH #### [facility] [address] [place] [address] 49726 Sow Farm Manager: Shane Peña MD Urea nitrogen [Mass/Vol] 17 mg/dL Normal -20 [facility] Comment on above: Performed By: #### C BC, CP, LIPR, TSH #### [facility] [employer] [address] [place] [address] 27291 Sow Farm Manager: Shane Peña MD BUN/CRE Ratio NOT REPORTED Normal - [facility] Comment on above: Performed By: #### C BC, CP, LIPR, TSH #### [employer] [facility] [address] [place], [place] [id number] Sow Farm Manager: Shane Peña MD Staging: NOT REPORTED Normal [facility] Comment on above: Performed By: #### C BC, CP, LIPR, TSH #### [employer] [facility] [address] [place], [place] [id number] Sow Farm Manager: Shane Peña MD Comprehensive Metabolic Pane feng 05-03-2020 Albumin [Mass/Vol] 4.1 g/dL 3.5 - 5.2 g/dL [facility] Phone: Albumin/Globulin [Mass ratio] 1.8 {ratio} [facility] Phone: ALP [Catalytic activity/Vol] 80 U/L 40 - 129 U/L [facility] Phone: ALT [Catalytic activity/Vol] 18 U/L 5 - 41 U/L [facility] Phone: Anion gap [Moles/Vol] 9 mmol/L 9 - 17 mmol/L [facility] Phone: AST [Catalytic activity/Vol] 15 U/L <40 [facility] Phone: Bilirubin Ql (U) 0.32 mg/dL 0.3 - 1.2 mg/dL [facility] Phone: Bun/Cre Ratio NOT REPORTED [facility] Work Phone: Calcium [Mass/Vol] 9.4 mg/dL 8.6 - 10. 4 mg/dL [facility] Phone: Chloride [Moles/Vol] 102 mmol/L 98 - 10 7 mmol/L [facility] Phone: CO2 [Moles/Vol] 26 mmol/L 20 - 31 mmol/L [facility] Phone: Creatinine [Mass/Vol] 0.86 mg/dL 0.7 - 1.2 mg/dL [employer] Phone: GFR >60 >60 mL/min [employer] Phone: GFR Non- >60 >60 mL/min [employer] Phone: GFR/1.73 sq M predicted among non-blacks MDRD (S/P/Bld) [Vol rate/Area] [employer] Phone: Comment on above: Average GFR for 50-5 9 years old: 93 mL/min/1.73sq m Chronic Kidney Disease: <60 mL/min/1.73sq m Kidney failure: <15 mL/min/1.73sq m eGFR calculated using average adult body mass. Additional eGFR calculator available at: http://www.[employer]/multiple_crcl_2012.htm GFR/1.73 sq M predicted among non-blacks MDRD (S/P/Bld) [Vol rate/Area] NOT REPORTED [employer] Phone: Glucose [Mass/Vol] 95 mg/dL 70 - 99 mg/dL [employer] Phone: Potassium [Moles/Vol] 4.3 mmol/L 3.7 - 5.3 mmol/L [employer] Phone: Protein [Mass/Vol] 6.4 g/dL 6.4 - 8.3 g/dL [employer] Phone: Sodium [Moles/Vol] 137 mmol/L 135 - 144 mmol/L [employer] Phone: Urea nitrogen [Mass/Vol] 17 mg/dL 6 - 20 mg/dL [employer] Phone: Lipid Panelon 05-03-2020 Cholesterol [Mass/Vol] 172 mg/dL <200 [employer] Phone: Comment on above: Cholesterol Guidelines: <200 Desirable 200-240 Borderline >240 Undesirable Cholesterol in HDL [Mass/Vol] 38 mg/dL Low >40 [employer] Phone: Comment on above: HDL Guidelines: <40 Undesirable 40-59 Borderline >59 Desirable Cholesterol in LDL [Mass/Vol] 106 mg/dL 0 - 130 mg/dL [employer] Phone: Comment on above: LDL Guidelines: <100 Desirable 100-129 Near to/above Desirable 130-159 Borderline >159 Undesirable Direct (measured) LDL and calculated LDL are not interchangeable tests. Cholesterol in VLDL [Mass/Vol] NOT REPORTED 1 - 30 mg/dL [employer] Phone: Cholesterol.total/Ch olesterol in HDL [Mass ratio] 4.5 {ratio} <5 [employer] Phone: Interpretation and review of laboratory results Abnormal [employer] Phone: Triglyceride [Mass/Vol] 138 mg/dL <150 [employer] Phone: Comment on above: Triglyceride Guidelines: <150 Desirable 150-199 Borderline 200-499 High >499 Very high Based on AHA Guidelines for fasting triglyceride, December 2011. Lipid Profileon 05-03-2020 Cholesterol [Mass/Vol] 172 mg/dL Normal <200 [facility] Comment on above: Result Comment: Cholesterol Guidelines: <200 Desirable 200-240 Borderline >240 Undesirable Performed By: #### C BC, CP, LIPR, TSH #### [employer] [address] [place], [place] [id number] Sow Farm Manager: Shane Peña MD Cholesterol in HDL [Mass/Vol] 38 mg/dL Low >40 [facility] Comment on above: Result Comment: HDL Guidelines: <40 Undesirable 40-59 Borderline >59 Desirable Performed By: #### C BC, CP, LIPR, TSH #### [employer] [address] [place], [place] [id number] Sow Farm Manager: Shane Peña MD Cholesterol in LDL [Mass/Vol] 106 mg/dL Normal 0-130 [facility] Comment on above: Result Comment: LDL Guidelines: <100 Desirable 100-129 Near to/above Desirable 130-159 Borderline >159 Undesirable Direct (measured) LDL and calculated LDL are not interchangeable tests. Performed By: #### C BC, CP, LIPR, TSH #### [employer] [facility] [place] [address] Sow Farm Manager: Shane Peña MD Cholesterol.total/Ch olesterol in HDL [Mass ratio] 4.5 {ratio} Normal <5 [facility] Comment on above: Performed By: #### C BC, CP, LIPR, TSH #### [employer] [address] [place] [address] 99493 Sow Farm Manager: Shane Peña MD Triglyceride [Mass/Vol] 138 mg/dL Normal <150 [facility] Comment on above: Result Comment: Triglyceride Guidelines: <150 Desirable 150-199 Borderline 200-499 High >499 Very high Based on AHA Guidelines for fasting triglyceride, December 2011. Performed By: #### C BC, CP, LIPR, TSH #### [employer] [address] [place] [address] 52070 Sow Farm Manager: Shane Peña MD Cholesterol in VLDL [Mass/Vol] NOT REPORTED Normal 04-02 [facility] Comment on above: Performed By: #### C BC, CP, LIPR, TSH #### [employer] [address] [place] [address] 74667 Sow Farm Manager: Shane Peña MD TSH without Reflexon 021 TSH Qn 1.35 m[IU]/L [facility] [employer] Work Phone: Thyroid Stim. Horm.on 2020 TSH Qn 1.35 m[IU]/L Normal 0.30-5.00 [facility] Comment on above: Performed By: #### C BC, CP, LIPR, TSH #### [employer] [address] [place] [address] 11052 Sow Farm Manager: Shane Peña MD XR CHEST (2 VW)on [...] Stephan Soto MD 05/03/20 Final result Normal [facility] No evidence for acut e cardiopulmonary pathology. [employer] Phone: EXAMINATION: TWO XRA Y VIEWS OF [...] structures and soft tissues are grossly intact. [employer] Phone: Robert, pn Incoming Radiant Results From [employer] - 05/03/2020 11:24 AM EST EXAMINATION: TWO [...] IMPRESSION: No evidence for acute cardiopulmonary pathology. [employer] Phone: Covid-19 Ambulatoryon 2019 SARS-CoV-2, ALLIE Not Detected Not Detected [employer] [facility] [place] Comment on above: (NOTE) This nucleic acid amplification test was developed and its performance characteristics determined by [employer]. Nucleic acid amplification tests include PCR and [...] detected) result in this assay. Performed At: [employer] [address] [facility], [place] [id number] Lilian Severino [facility] Ph:[phone] [id number] 11-09-2019 SARS-CoV-2 Not Detected Normal Not Detected [facility] Comment on above: Result Comment: (NOT E) This nucleic acid amplification test was developed and its performance characteristics determined by [employer]. Nucleic acid amplification tests include PCR and [...] this assay. Performed At: [facility] [address] [place], [place] [id number] Lilian Severino [facility] Ph:[phone] Performed By: #### A COV #### [facility] [address] [place] [address] Sow Farm Manager: Deborah Ramsey MD EKG 12 Leadon 11-04-2019 Atrial Rate 82 BPM [place], [place] P [place] 52 degrees [place], [place] P-R Interval 146 ms [facility], [place] Q-T Interval 388 ms [place] QRS Duration 102 ms [place] QTc Calculation (Bazett) 453 ms [place], [place] R [place] -21 degrees [facility], [place] T [place] 58 degrees [place], [place] Ventricular Rate 82 BPM [place], [place] Robert, [employer] Incoming E kg Results From [employer] [place] - 11/04/2019 10:29 AM EDT Normal sinus rhythm Normal ECG No previous ECGs available [place], [place] Normal sinus rhythm Normal ECG No previous ECGs available [place] Basic Metabolic Panelon 08-3 Anion gap [Moles/Vol] 10 mmol/L 9 - 17 mmol/L [place] Bun/Cre Ratio NOT REPORTED [place], [place] Calcium [Mass/Vol] 9.2 mg/dL 8.6 - 10. 4 mg/dL [place] Chloride [Moles/Vol] 104 mmol/L 98 - 10 7 mmol/L [place] CO2 [Moles/Vol] 27 mmol/L 20 - 31 mmol/L [place] Creatinine [Mass/Vol] 0.83 mg/dL 0.7 - 1.2 mg/dL [place] GFR >60 >60 mL/min [place] GFR Non- >60 >60 mL/min [place] GFR/1.73 sq M predicted among non-blacks MDRD (S/P/Bld) [Vol rate/Area] [place] Comment on above: Average GFR for 50-5 9 years old: 93 mL/min/1.73sq m Chronic Kidney Disease: <60 mL/min/1.73sq m Kidney failure: <15 mL/min/1.73sq m eGFR calculated using average adult body mass. Additional eGFR calculator available at: http://www.[employer]/multiple_crcl_2012.htm GFR/1.73 sq M predicted among non-blacks MDRD (S/P/Bld) [Vol rate/Area] NOT REPORTED [place] Glucose [Mass/Vol] 103 mg/dL High 70 - 99 mg/dL [place], [place] Interpretation and review of laboratory results Abnormal [place] Potassium [Moles/Vol] 4.5 mmol/L 3.7 - 5.3 mmol/L [place] Sodium [Moles/Vol] 141 mmol/L 135 - 144 mmol/L [place] Urea nitrogen [Mass/Vol] 18 mg/dL 6 - 20 mg/dL [place] Basic Metabolic Profon 11-01 (cont.) Normal [facility] Comment on above: Result Comment: Aver age GFR for 50-59 years old: 93 mL/min/1.73sq m Chronic Kidney Disease: <60 mL/min/1.73sq m Kidney failure: <15 mL/min/1.73sq m eGFR calculated using average adult body mass. Additional eGFR calculator available at: http://www.[employer]/multiple_crcl_2011.htm Performed By: #### C KLAUS, BMP #### [facility] [address] [facility] [place] [address] Sow Farm Manager: Cheko Boykin DO Anion gap [Moles/Vol] 10 mmol/L Normal - [facility] Comment on above: Performed By: #### C KLAUS, BMP #### [facility] [address] [facility]. [place], [place] [id number] Sow Farm Manager: Cheko Boykin DO Calcium [Mass/Vol] 9.2 mg/dL Normal 8.6-10.4 [facility] Comment on above: Performed By: #### C DP, BMP #### [facility] [address] [place] [address] Sow Farm Manager: Cheko Boykin, DO Chloride [Moles/Vol] 104 mmol/L Normal 98-107 [facility] Comment on above: Performed By: #### C DP, BMP #### [facility] [address] [place] [address] Sow Farm Manager: Cheko Boykin DO CO2 [Moles/Vol] 27 mmol/L Normal 20-31 [facility] Comment on above: Performed By: #### C DP, BMP #### [facility] [place] [address] Sow Farm Manager: Cheko Boykin DO Creatinine [Mass/Vol] 0.83 mg/dL Normal 0.70-1.20 [facility] Comment on above: Performed By: #### C DP, BMP #### [facility] [place] [address] Sow Farm Manager: Cheko Boykin DO GFR, Amer >60 Normal >60 [facility] Comment on above: Performed By: #### C DP, BMP #### [facility] [place] [address] Sow Farm Manager: Cheko Boykin DO GFR,non Amer >60 Normal >60 [facility] Comment on above: Performed By: #### C DP, BMP #### [facility] [address] [place] [address] Sow Farm Manager: Cheko Boykin DO Glucose [Mass/Vol] 103 mg/dL High 70-99 [facility] Comment on above: Performed By: #### C DP, BMP #### [facility] [address] [place] [address] Sow Farm Manager: Cheko Boykin DO Potassium [Moles/Vol] 4.5 mmol/L Normal 3.7-5.3 [facility] Comment on above: Performed By: #### C DP, BMP #### [facility] [place] [address] Sow Farm Manager: Cheko Boykin DO Sodium [Moles/Vol] 141 mmol/L Normal 135-144 [facility] Comment on above: Performed By: #### C DP, BMP #### [facility] [address] [place] [address] Sow Farm Manager: Cheko Boykin DO Urea nitrogen [Mass/Vol] 18 mg/dL Normal 6-20 [facility] Comment on above: Performed By: #### C DP, BMP #### [facility] [address] [place] [address] Sow Farm Manager: Cheko Boykin DO BUN/CRE Ratio NOT REPORTED Normal -20 [facility] Comment on above: Performed By: #### C DP, BMP #### [facility] [address] [place] [address] Sow Farm Manager: Cheko Boykin DO Staging: NOT REPORTED Normal [facility] Comment on above: Performed By: #### C DP, BMP #### [facility] [address] [place] [address] Sow Farm Manager: Cheko Boykin DO CBC Auto Differentialon -3 Basophils (Bld) [#/Vol] 0.10 10*3/uL [facility], [place] Basophils/100 WBC (Bld) 1 % 0 - 2 % [facility], [place] Differential Type NOT REPORTED [facility], [place] Eosinophils (Bld) [#/Vol] 0.60 10*3/uL [place], [place] Eosinophils/100 WBC (Bld) 4 % 0 - 4 % [place] Erythrocyte distribution width (RBC) [Ratio] 13.9 % 11.5 - 14.9 % [place] Hematocrit (Bld) [Volume fraction] 42.4 % 41 - 53 % [place] Hemoglobin (Bld) [Mass/Vol] 14.5 g/dL 13.5 - 17.5 g/dL [place] Interpretation and review of laboratory results Abnormal [place] Lymphocytes (Bld) [#/Vol] 4.00 10*3/uL [place] Lymphocytes/100 WBC (Bld) 29 % 24 - 44 % [place] MCH (RBC) [Entitic mass] 30.5 pg 26 - 34 pg [place] MCHC (RBC) [Mass/Vol] 34.2 g/dL 31 - 37 g/dL [place] MCV (RBC) [Entitic vol] 89.1 fL 80 - 100 fL [place] Monocytes (Bld) [#/Vol] 1.00 10*3/uL [place] Monocytes/100 WBC (Bld) 7 % 1 - 7 % [place] Platelet mean volume (Bld) [Entitic vol] 7.1 fL 6 - 12 fL [place], [place] Platelets (Bld) [#/Vol] 378 10*3/uL [place] Platelets (Bld) [#/Vol] NOT REPORTED [place] RBC (Bld) [#/Vol] 4.76 10*6/uL 4.5 - 5.9 m/uL [place] RBC morphology finding Nom (Bld) NOT REPORTED [place] Segmented neutrophils/100 WBC (Bld) 59 % 36 - 66 % [place] Segs Absolute 8.30 [place], [place] WBC (Bld) [#/Vol] 13.9 10*3/uL [place] WBC (Bld) [#/Vol] NOT REPORTED per 100 WBC [place] WBC Morphology NOT REPORTED [place], [place] CBC with Diffon 11-02-2019 Abs. Basophil 0.10 k/uL Normal 0.0-0.2 [facility] Comment on above: Performed By: #### C DP, BMP #### [facility] [address] [place] [address] Sow Farm Manager: Cheko Boykin DO Abs.Neutrophil (Seg) 8.30 k/uL Normal 1.3-9.1 [facility] Comment on above: Performed By: #### C DP, BMP #### [facility] [address] [place] [address] Sow Farm Manager: Cheko Boykin DO Basophils/100 WBC (Bld) 1 % Normal 0-2 [facility] Comment on above: Performed By: #### C KLAUS, BMP #### [facility] [place] [address] Sow Farm Manager: Cheko Boykin DO Eosinophils (Bld) [#/Vol] 0.60 10*3/uL [place] 0.0-0.4 [facility] Comment on above: Performed By: #### C DP, BMP #### [facility] [address] [place] [address] Sow Farm Manager: Cheko Boykin DO Eosinophils/100 WBC (Bld) 4 % Normal 0-4 [facility] Comment on above: Performed By: #### C DP, BMP #### [facility] [place] [address] Sow Farm Manager: Cheko Boykin DO Erythrocyte distribution width (RBC) [Ratio] 13.9 % Normal 11.5-14.9 [facility] Comment on above: Performed By: #### C DP, BMP #### [facility] [place] [address] Sow Farm Manager: Cheko Boykin DO Hematocrit (Bld) [Volume fraction] 42.4 % Normal 41-53 [facility] Comment on above: Performed By: #### C DP, BMP #### [facility] [address] [place] [address] Sow Farm Manager: Cheko Boykin DO Hemoglobin (Bld) [Mass/Vol] 14.5 g/dL Normal 13.5-17.5 [facility] Comment on above: Performed By: #### C DP, BMP #### [facility] [place] [address] Sow Farm Manager: Cheko Boykin DO Lymphocytes (Bld) [#/Vol] 4.00 10*3/uL Normal 1.0-4.8 [facility] Comment on above: Performed By: #### C KLAUS, BMP #### [facility] [place] [address] Sow Farm Manager: Cheko Boykin DO Lymphocytes/100 WBC (Bld) 29 % Normal 24-44 [facility] Comment on above: Performed By: #### C DP, BMP #### [facility] [place] [address] Sow Farm Manager: Cheko Boykin DO MCH (RBC) [Entitic mass] 30.5 pg Normal 26-34 [facility] Comment on above: Performed By: #### C DP, BMP #### [facility] [place] [address] Sow Farm Manager: Cheko Boykin DO MCHC (RBC) [Mass/Vol] 34.2 g/dL Normal 31-37 [facility] Comment on above: Performed By: #### C DP, BMP #### [facility] [place] [address] Sow Farm Manager: Cheko Boykin DO MCV (RBC) [Entitic vol] 89.1 fL Normal 80-100 [facility] Comment on above: Performed By: #### C KLAUS, BMP #### [facility] [address] [place] [address] Sow Farm Manager: Cheko Boykin DO Monocytes (Bld) [#/Vol] 1.00 10*3/uL Normal 0.1-1.3 [facility] Comment on above: Performed By: #### C KLAUS, BMP #### [facility] [place] [address] Sow Farm Manager: Cheko Boykin DO Monocytes/100 WBC (Bld) 7 % Normal 1-7 [facility] Comment on above: Performed By: #### C KLAUS, BMP #### [facility] [address] [place] [address]. [place] [address] Sow Farm Manager: Cheko Boykin DO Neutrophil (Seg) 59 % Normal 36-66 [facility] Comment on above: Performed By: #### C KLAUS, BMP #### [facility] [place] [address] Sow Farm Manager: Cheko Boykin DO Platelet mean volume (Bld) [Entitic vol] 7.1 fL Normal 6.0-12.0 [facility] Comment on above: Performed By: #### C DP, BMP #### [facility] [address] [place] [address] Sow Farm Manager: Cheko Boykin DO Platelets (Bld) [#/Vol] 378 10*3/uL Normal 150-450 [facility] Comment on above: Performed By: #### C DP, BMP #### [facility] [place] [address] Sow Farm Manager: Cheko Boykin DO RBC (Bld) [#/Vol] 4.76 10*6/uL Normal 4.5-5.9 [facility] Comment on above: Performed By: #### C DP, BMP #### [facility] [address] [place] [address] Sow Farm Manager: Cheko Boykin DO WBC (Bld) [#/Vol] 13.9 10*3/uL [place] 3.5-11.0 [facility] Comment on above: Performed By: #### C DP, BMP #### [facility] [address] [place] [address] Sow Farm Manager: Cheko Boykin DO Abs.Imm.Granulocyte NOT REPORTED Normal 0.00-0.30 [facility] Comment on above: Performed By: #### C KLAUS, BMP #### [facility] [address] [place] [address] Sow Farm Manager: Cheko Boykin DO Auto Diff Performed NOT REPORTED Normal [facility] Comment on above: Performed By: #### C DP, BMP #### [facility] [address] [place] [address] Sow Farm Manager: Cheko Boykin DO Immature granulocytes (Bld) [#/Vol] NOT REPORTED Normal 0 [facility] Comment on above: Performed By: #### C DP, BMP #### [facility] [address] [place] [address] Sow Farm Manager: Cheko Boykin DO NRBC Automated NOT REPORTED Normal [facility] Comment on above: Performed By: #### C DP, BMP #### [facility] [address] [place] [address] Sow Farm Manager: Cheko Boykin DO Platelets (Bld) [#/Vol] NOT REPORTED Normal [facility] Comment on above: Performed By: #### C DP, BMP #### [facility] [address] [facility] [place] [address] Sow Farm Manager: Cheko Boykin DO RBC morphology finding Nom (Bld) NOT REPORTED Normal [facility] Comment on above: Performed By: #### C DP, BMP #### [facility] [address] [facility] [place] [address] Sow Farm Manager: Cheko Boykin DO WBC Morphology NOT REPORTED Normal [facility] Comment on above: Performed By: #### C DP, BMP #### [facility] [address] [facility] [place] [address] Sow Farm Manager: Cheko Boykin DO Otheron 11-02-2019 Immature granulocytes (Bld) [#/Vol] NOT REPORTED 0 % [place] KNEE LEFT WO CONTRASTon 10-28-2019 [...] quadriceps tendinosis. 3. Moderate joint effusion. 4. Ddwb-su-bkbzzarg patellofemoral chondromalacia. Mild medial compartment chondromalacia. Superimposed partial and full-thickness fissuring of the weight-bearing medial femoral condyle. 5. Mild edema in the soft tissues about the knee. Interpreted by: Simeon Long MD Signed by: Simeon Long MD 10/28/19 Final result Normal [facility] 1. Complex multidirectional tearing and volume loss in the posterior horn of the medial meniscus. Degeneration and outward extrusion of the medial meniscus body. 2. Mild multifocal patellar tendinosis. Mild distal quadriceps tendinosis. 3. Moderate joint effusion. 4. Gfit-la-qfrxlrld patellofemoral chondromalacia. Mild medial compartment chondromalacia. Superimposed partial and full-thickness fissuring of the weight-bearing medial femoral condyle. 5. Mild edema in the soft tissues about the knee. [place] EXAMINATION: MRI OF THE LEFT KNEE [...] in the soft tissues about the knee. [facility], [place] Robert, pn Incoming Radiant Results From [facility] - 10/28/2019 3:10 PM EDT EXAMINATION: MRI [...] quadriceps tendinosis. 3. Moderate joint effusion. 4. Ohfh-wm-ljhmnuqx patellofemoral chondromalacia. Mild medial compartment chondromalacia. Superimposed partial and full-thickness fissuring of the weight-bearing medial femoral condyle. 5. Mild edema in the soft tissues about the knee. [place] XR KNEE LEFT (3 VIEWS)on XR [...] Roz Mora MD 09/29/19 Final result Normal [facility] Small joint effusion. [place], [place] EXAMINATION: THREE X RAY VIEWS OF [...] within the medial compartment. Small joint effusion. [place], [place] Robert, Mhpn Incoming Radiant Results From [employer], Mobile Secretarye/Pacs - 09/29/2019 2:11 PM EDT EXAMINATION: THREE [...] Small joint effusion. IMPRESSION: Small joint effusion. [place] Uric Acidon 09-28-2019 Urate [Mass/Vol] 6.0 mg/dL 3.4 - 7 mg/dL [place] Uric Acidon 12-09-2018 Urate [Mass/Vol] 5.8 mg/dL 3.4 - 7 mg/dL [place] CBCon 11-05-2018 Erythrocyte distribution width (RBC) [Ratio] 13.1 % 11.8 - 14.4 % [place] Hematocrit (Bld) [Volume fraction] 46.1 % 40.7 - 50.3 % [place] Hemoglobin (Bld) [Mass/Vol] 14.9 g/dL 13 - 17 g/dL [place] Interpretation and review of laboratory results Abnormal [place] MCH (RBC) [Entitic mass] 31.0 pg 25.2 - 33.5 pg [place] MCHC (RBC) [Mass/Vol] 32.3 g/dL 28.4 - 34.8 g/dL [place] MCV (RBC) [Entitic vol] 95.8 fL 82.6 - 102.9 fL [place] Platelet mean volume (Bld) [Entitic vol] 9.2 fL 8.1 - 13.5 fL [place] Platelets (Bld) [#/Vol] 374 10*3/uL [place] RBC (Bld) [#/Vol] 4.81 10*6/uL 4.21 - 5.7 7 m/uL [place] WBC (Bld) [#/Vol] 11.8 10*3/uL [place] WBC (Bld) [#/Vol] 0.0 10*3/uL 0.0 per 10 0 WBC [place] Comprehensive Metabolic Pane feng 11-05-2018 Albumin [Mass/Vol] 4.2 g/dL 3.5 - 5.2 g/dL [place] Albumin/Globulin [Mass ratio] 1.7 {ratio} [place] ALP [Catalytic activity/Vol] 83 U/L 40 - 129 U/L [place] ALT [Catalytic activity/Vol] 19 U/L 5 - 41 U/L [place] Anion gap [Moles/Vol] 16 mmol/L 9 - 17 mmol/L [place] AST [Catalytic activity/Vol] 15 U/L <40 [place] Bilirubin Ql (U) 0.29 mg/dL Low 0.3 - 1.2 mg/dL [place] Bun/Cre Ratio NOT REPORTED [place] Calcium [Mass/Vol] 9.5 mg/dL 8.6 - 10. 4 mg/dL [place] Chloride [Moles/Vol] 104 mmol/L 98 - 10 7 mmol/L [place] CO2 [Moles/Vol] 26 mmol/L 20 - 31 mmol/L [place] Creatinine [Mass/Vol] 0.81 mg/dL 0.7 - 1.2 mg/dL [place] GFR >60 >60 mL/min [place] GFR Non- >60 >60 mL/min [place] GFR/1.73 sq M predicted among non-blacks MDRD (S/P/Bld) [Vol rate/Area] NOT REPORTED [place] GFR/1.73 sq M predicted among non-blacks MDRD (S/P/Bld) [Vol rate/Area] [place] Comment on above: Average GFR for 50-5 9 years old: 93 mL/min/1.73sq m Chronic Kidney Disease: <60 mL/min/1.73sq m Kidney failure: <15 mL/min/1.73sq m eGFR calculated using average adult body mass. Additional eGFR calculator available at: http://www.[employer]/multiple_crcl_2012.htm Glucose [Mass/Vol] 99 mg/dL 70 - 99 mg/dL [place] Potassium [Moles/Vol] 4.4 mmol/L 3.7 - 5.3 mmol/L [place] Protein [Mass/Vol] 6.7 g/dL 6.4 - 8.3 g/dL [place] Sodium [Moles/Vol] 146 mmol/L High 135 - 144 mmol/L [place] Urea nitrogen [Mass/Vol] 17 mg/dL 6 - 20 mg/dL [place] Lipid Panelon 11-05-2018 Cholesterol [Mass/Vol] 199 mg/dL <200 [place] Comment on above: Cholesterol Guidelines: <200 Desirable 200-240 Borderline >240 Undesirable Cholesterol in HDL [Mass/Vol] 42 mg/dL >40 [place] Comment on above: HDL Guidelines: <40 Undesirable 40-59 Borderline >59 Desirable Cholesterol in LDL [Mass/Vol] 126 mg/dL 0 - 130 mg/dL [place] Comment on above: LDL Guidelines: <100 Desirable 100-129 Near to/above Desirable 130-159 Borderline >159 Undesirable Direct (measured) LDL and calculated LDL are not interchangeable tests. Cholesterol in VLDL [Mass/Vol] NOT REPORTED High 1 - 30 mg/dL [place] Cholesterol.total/Ch olesterol in HDL [Mass ratio] 4.7 {ratio} <5 [place] Triglyceride [Mass/Vol] 157 mg/dL High <150 [place] Comment on above: Triglyceride Guidelines: <150 Desirable 150-199 Borderline 200-499 High >499 Very high Based on AHA Guidelines for fasting triglyceride, December 2011. Otheron 11-05-2018 Interpretation and review of laboratory results Abnormal [place] Vital Signs Date Time Vital Sign Value Performing Clinician Facility 05-01-2023 10:28-0500 Body height 180.3 cm Hunter Robins APRNRG Work Phone: [facility] 05-01-2023 10:28-0500 Body mass index (BMI) [Ratio] 38.49 kg/m2 Hunter SAMAYOA Work Phone: [facility] 05-01-2023 10:28-0500 Body temperature 97.9 [degF] Hunter Robins APRN-MOLDER TRIMMER Work Phone: [facility] 05-01-2023 10:28-0500 Body weight 125.19 kg Hunter Robins APRN-MOLDER TRIMMER Work Phone: [facility] 05-01-2023 10:28-0500 Diastolic blood pressure 72 mm[Hg] Hunter Robins APRN-MOLDER TRIMMER Work Phone: [facility] 05-01-2023 10:28-0500 Heart rate 68 /min Hunter SAMAYOA Work Phone: [facility] 05-01-2023 10:28-0500 SaO2% (BldA) [Mass fraction] 95 % Hunter SAMAYOA Work Phone: [facility] 05-01-2023 10:28-0500 Systolic blood pressure 138 mm[Hg] Hunter Robins APRN-MOLDER TRIMMER Work Phone: [facility] 11-26-2022 15:24-0400 Body height 187.96 cm Colten AmosFanBread Work Phone: [facility] [employer] 250 DO Work Phone: 11-26-2022 15:24-0400 Body mass index (BMI) [Ratio] 35.31 kg/m2 Colten Andrade [employer] Work Phone: [facility] [employer] 250 DO Work Phone: 11-26-2022 15:24-0400 Body surface area Derived from formula 2.49 m2 Colten Andrade [employer] Work Phone: [facility] [employer] [place] 250 DO Work Phone: 11-26-2022 15:24-0400 Body weight 124.74 kg Colten Andrade Furlong Work Phone: [facility] [employer] [place] 250 DO Work Phone: 11-26-2022 15:24-0400 Diastolic blood pressure 72 mm[Hg] Colten G Furlong Work Phone: [facility] [employer] [place] 250 DO Work Phone: 11-26-2022 15:24-0400 Heart rate 70 /min Colten G Furlong Work Phone: [facility] [employer] [place] 250 DO Work Phone: 11-26-2022 15:24-0400 Systolic blood pressure 138 mm[Hg] Colten G Furlong Work Phone: [facility] [employer] [place] 250 DO Work Phone: 10-19-2021 14:25-0400 Body height 187.96 cm Colten G Furlong Work Phone: [facility] [employer] [place] 250 DO Work Phone: 10-19-2021 14:25-0400 Body mass index (BMI) [Ratio] 33.64 kg/m2 Colten G Furlong Work Phone: [facility] [employer] [place] 250 DO Work Phone: 10-19-2021 14:25-0400 Body surface area Derived from formula 2.44 m2 Colten G Furlong Work Phone: [facility] [employer] [place] 250 DO Work Phone: 10-19-2021 14:25-0400 Body weight 118.84 kg Colten G Furlong Work Phone: [facility] [employer] [place] 250 DO Work Phone: 10-19-2021 14:25-0400 Diastolic blood pressure 68 mm[Hg] Colten Andrade Furlong Work Phone: [facility] [employer] [place] 250 DO Work Phone: 10-19-2021 14:25-0400 Heart rate 74 /min Colten Andrade Furlong Work Phone: [facility] [employer] [place] 250 DO Work Phone: 10-19-2021 14:25-0400 Systolic blood pressure 130 mm[Hg] Colten Andrade Furlong Work Phone: [facility] [employer] 250 DO Work Phone: 06-06-2021 10:10-0400 Body height 188 cm Megan Interiano MD Work Phone: [facility] 06-06-2021 10:10-0400 Body weight 116.8 kg Megan Interiano MD Work Phone: [facility] 06-06-2021 10:10-0400 Diastolic blood pressure 71 mm[Hg] Megan Interiano MD Work Phone: [facility] 06-06-2021 10:10-0400 Heart rate 62 /min Megan Interiano MD Work Phone: [facility] 06-06-2021 10:10-0400 Respiratory rate 16 /min Megan Interiano MD Work Phone: [facility] 06-06-2021 10:10-0400 SaO2% (BldA) [Mass fraction] 98 % Megan Interiano MD Work Phone: [facility] 06-06-2021 10:10-0400 Systolic blood pressure 148 mm[Hg] Megan Interiano MD Work Phone: [facility] 05-26-2021 09:27-0400 Body height 187.96 cm Colten Andrade Furlong Work Phone: [facility] 600 DO Work Phone: 05-26-2021 09:27-0400 Body mass index (BMI) [Ratio] 33.41 kg/m2 Colten G Furlong Work Phone: [facility] [employer] 600 DO Work Phone: 05-26-2021 09:27-0400 Body surface area Derived from formula 2.43 m2 Colten G Furlong Work Phone: [facility] [employer] 600 DO Work Phone: 05-26-2021 09:27-0400 Body weight 118.03 kg Colten G Furlong Work Phone: [facility] [employer] 600 DO Work Phone: 05-26-2021 09:27-0400 Diastolic blood pressure 66 mm[Hg] Colten Andrade Furlong [facility] 600 DO Work Phone: 05-26-2021 09:27-0400 Heart rate 62 /min Colten G Furlong [facility] DO Work Phone: 05-26-2021 09:27-0400 Systolic blood pressure 122 mm[Hg] Colten Andrade Furlong [facility] DO Work Phone: 12-27-2020 13:15-0400 Body height 187.96 cm Colten G Furlong Work Phone: [facility] [employer] 127 DO Work Phone: 12-27-2020 13:15-0400 Body mass index (BMI) [Ratio] 33.64 kg/m2 Colten G Furlong Work Phone: [facility] [employer] 127 DO Work Phone: 12-27-2020 13:15-0400 Body surface area Derived from formula 2.44 m2 Colten G Furlong Work Phone: [facility] 127 DO Work Phone: 12-27-2020 13:15-0400 Body weight 118.84 kg Colten G Furlong Work Phone: [facility] 127 DO Work Phone: 12-27-2020 13:15-0400 Diastolic blood pressure 74 mm[Hg] Colten G Furlong Work Phone: [facility] 127 DO Work Phone: 12-27-2020 13:15-0400 Heart rate 74 /min Colten G Furlong Work Phone: [facility] 127 DO Work Phone: 12-27-2020 13:15-0400 Systolic blood pressure 131 mm[Hg] Colten G Furlong Work Phone: [facility] 127 DO Work Phone: 12-23-2020 09:15-0400 0 1 Colten G Furlong Work Phone: [facility] [address] [place] Work Phone: Comment on above: [id number] 11-10-2019 13:25-0400 BP Diastolic 78 mm[Hg] [facility] [place] 11-10-2019 13:25-0400 BP Systolic 140 mm[Hg] [facility] [place] 11-10-2019 13:25-0400 Pulse (Heart Rate) 78 /min [facility] [place] 11-10-2019 13:25-0400 Pulse Oximetry 97 % [facility] [place] 11-10-2019 13:25-0400 Respiratory Rate 16 /min Liu [facility], [place] 11-10-2019 12:43-0400 Body Temperature 97.2 [degF] Liu Jackson [facility], [place] 11-10-2019 10:06-0400 BMI (Body Mass Index) 35.31 kg/m2 Liu Jackson [facility], [place] 11-10-2019 10:06-0400 Body weight 124.74 [facility] [place] 11-10-2019 10:06-0400 Height 188 cm [facility] [place] 11-02-2019 11:08-0400 BMI (Body Mass Index) 35.31 kg/m2 [address], [place] 11-02-2019 11:08-0400 Body Temperature 98.01 [degF] [address], [place] 11-02-2019 11:08-0400 Body weight 124.[address] 11-02-2019 11:08-0400 BP Diastolic 94 mm[Hg] [address] , [place] 11-02-2019 11:08-0400 BP Systolic 147 mm[Hg] [address] , [place] 11-02-2019 11:08-0400 Height [address] , [place] 11-02-2019 11:08-0400 Pulse (Heart Rate) 83 /min [address] 11-02-2019 11:08-0400 Pulse Oximetry 99 % [address] 11-02-2019 11:08-0400 Respiratory Rate 18 /min [address] Encounters Encounter Date Encounter Type Care Provider Facility Start: 08-21-2023 End: 08-21-2023 Evaluation and management of inpatient DEBORAH JERONIMO [facility] Start: 08-20-2023 End: 08-20-2023 ambulatory COLTEN Andrade [facility] Start: 08-05-2023 End: 08-05-2023 ambulatory MARY CRUZ [facility] Start: 07-26-2023 ambulatory COLTEN [facility] Start: 07-11-2023 End: 07-11-2023 ambulatory DEBORAH JERONIMO [facility] Start: 07-04-2023 End: 07-04-2023 ambulatory DEBORAH Andrade [facility] Start: 06-17-2023 End: 06-18-2023 ambulatory Antonio Bird MD Facility:[facility] Start: 05-01-2023 End: 05-02-2023 ambulatory [facility] Start: 05-01-2023 End: 05-01-2023 Office outpatient visit 15 minutes Hunter Hernandez [facility] REDIPPER-MOLDER TRIMMER Work Phone: [facility] Comment on above: Essential hypertensi on (Primary Dx); Chronic hip pain, left; Mixed hyperlipidemia; Enlarged prostate; Skin lesion of left lower limb Start: 05-01-2023 End: 05-01-2023 ambulatory [facility] Start: 04-01-2023 Refill Hunter L [facility] REDIPPER-MOLDER TRIMMER Work Phone: [facility] Comment on above: Migraine, unspecifie d, not intractable, without status migrainosus Start: 11-26-2022 Patient encounter procedure Colten Parra Work Phone: [facility] 250 DO Work Phone: Start: 07-31-2022 End: 08-01-2022 ambulatory NARENDRANATH LAKSHMIPATHY . Facility:[facility] Start: 07-31-2022 End: 08-01-2022 ambulatory AD GOTTLIEB . Facility:[facility] Start: 07-20-2022 End: 07-21-2022 ambulatory Antonio Bird MD Facility:[facility] Start: 06-14-2022 End: 06-15-2022 ambulatory NARENDRANATH LAKSHMIPATHY . Facility:[facility] Start: 05-08-2022 [facility] Start: 05-03-2022 End: 05-03-2022 ambulatory HUNTER ROBINS Facility:[facility] Start: 03-15-2022 End: 03-16-[address] COMPA AWAD . Facility:[facility] Start: 02-15-2022 Encounter for preprocedural laboratory examination DR COMPA AWAD . [facility] Start: 02-13-2022 End: 02-13-[address] COMPA AWAD . Facility:[facility] Start: 02-09-2022 End: 02-10-[address] COMPA AWAD . Facility:[facility] Start: 02-09-2022 End: 02-10-2022 Encounter for preprocedural laboratory examination DR COMPA AWAD . Facility:[facility] Start: 01-16-2022 End: 01-17-[address] COMPA AWAD . Facility:[facility] Start: 01-09-2022 End: 01-09-[address] COMPA AWAD . Facility:[facility] Start: 01-08-2022 Rx Renewal Colten figueroa Work Phone: [facility] 250 DO Work Phone: Start: 01-08-2022 Rx Renewal Colten figueroa Work Phone: [facility] 250 DO Work Phone: Start: 12-28-2021 End: 12-29-2021 ambulatory HUNTER ROBINS Facility:H1 Start: 12-28-2021 End: 12-29-[address] COMPA AWAD . Facility:H1 Start: 12-12-2021 End: 12-12-[address] COMPA AWAD . Facility:H1 Start: 11-29-2021 Rx Renewal Colten figueroa Work Phone: [facility] 250 DO Work Phone: Start: 10-26-2021 End: 10-27-[address] COMPA AWAD . Facility:H1 Start: 10-19-2021 Office outpatient vi sit 25 minutes Colten Parra Work Phone: [facility] 250 DO Work Phone: Start: 08-23-2021 Message Colten figueroa Work Phone: [facility] 250 DO Work Phone: Start: 07-04-2021 Telephone encounter Megan garcia MD Work Phone: [facility] Comment on above: Schedule Surgery Start: 06-06-2021 End: 06-06-2021 Patient encounter procedure Megan Interiano MD Work Phone: [facility] Comment on above: Cervical spondylosis with myelopathy (Primary Dx); Loss of balance; Spinal stenosis of cervical region Start: 05-26-2021 Office outpatient vi sit 25 minutes Colten Amoslong Work Phone: [facility] [place] 600 DO Work Phone: Start: 01-03-2021 Chart Update Colten Amoslo ng Work Phone: [facility] 127 DO Work Phone: Start: 12-27-2020 FUV, Provider: Kalie Lebron, Status: Pen, Time: 1:00 PM Colten Amoslong Work Phone: [facility] [address] [place] Work Phone: Start: 12-27-2020 Office outpatient vi sit 25 minutes Colten Amoslong Work Phone: [facility] 127 DO Work Phone: Start: 12-23-2020 Patient encounter procedure Colten Amoslong Work Phone: [facility] [address] [place] Work Phone: Start: 05-04-2020 End: 05-05-2020 Patient encounter procedure MARGARITA Gallardo [facility] Start: 05-04-2020 End: 05-04-2020 [facility] Start: 05-03-2020 End: 05-04-2020 Patient encounter procedure MARGARITA Gallardo [facility] Start: 05-03-2020 End: 05-03-2020 Subsequent hospital visit by physician Kash Shukla Lab Comment on above: Chest discomfort; Essential hypertension Start: 05-03-2020 End: 05-06-2020 Patient encounter procedure FLACO CARTER [facility] Start: 05-03-2020 End: 05-05-2020 Subsequent hospital visit by physician Alexa Shukla Xr Rm 1 [facility] Radiology Comment on above: Chest discomfort Start: 11-10-2019 End: 11-10-2019 Patient encounter procedure LIU JACKSON [facility] Start: 11-10-2019 End: 11-10-2019 Subsequent hospital visit by physician Liu Jackson Work Phone: [facility] OR Comment on above: Acute medial meniscu s tear of left knee, initial encounter (Primary Dx) Start: 11-06-2019 End: 11-11-2019 Patient encounter procedure ANAYA Kellogg HORTON [facility] Start: 11-06-2019 End: 11-10-2019 Subsequent hospital visit by physician Alexa Covid19 Pat Screening Schedule [facility] Pre-Admit Testing Start: 11-02-2019 End: 11-06-2019 Patient encounter procedure MISSYD Paulina [facility] Start: 11-02-2019 End: 11-06-2019 Subsequent hospital visit by physician Mary Pat Rm 2 [facility] Pre-Admit Testing Start: 10-27-2019 End: 10-30-2019 Patient encounter procedure SHIVAPRASAD Paulina [facility] Start: 10-27-2019 End: 10-29-2019 Subsequent hospital visit by physician Alexa Mri Rm 119 [facility] MRI Comment on above: Effusion of left kne e; Injury of left knee, subsequent encounter Start: 09-29-2019 End: 10-02-2019 Patient encounter procedure SHIVAPRASAD Paulina [facility] Start: 09-29-2019 End: 10-01-2019 Subsequent hospital visit by physician Alexa Xr Room 4 [facility] Radiology Comment on above: Acute pain of left k nee Start: 09-29-2019 End: 09-29-2019 Patient encounter procedure KASH GRIER [facility] Start: 09-28-2019 End: 09-28-2019 Subsequent [...] Adult depression scr eening assessment Hunter Robins [employer] Work Phone: Start: 12-14-2022 Adult depression scr eening assessment Hunter Robins [employer] Work Phone: Start: 06-04-2021 Adult depression scr eening assessment Megan Interiano MD Work Phone: Start: 12-23-2020 Echocardiography Colten Parra Work Phone: Start: 05-04-2020 Assay of troponin quantitative Harlanprad Paulina Maxwell Work Phone: Start: 05-03-2020 Radiologic exam ches t 2 views Brendavaprasad K Gurjit Work Phone: Start: 05-03-2020 Assay of thyroid sti mulating hormone tsh Brendavaprasad K Gurjit Work Phone: Start: 05-03-2020 Blood count complete automated Brendavaprasad K Gurjit Work Phone: Start: 05-03-2020 Comprehensive metabo lic panel Brendavaprasad K Gurjit Work Phone: Start: 05-03-2020 Lipid panel Brendavaprasa d Paulina Maxwell Work Phone: Start: 11-10-2019 DISCHARGE PATIENT SHIVA [...] VAPRASAD GURJIT Start: 11-06-2019 COVID-19 AMBULATORY Tramaine Horton Work Phone: Start: 11-06-2019 COVID-19 SHIVAPRASA [...] 09-29-2019 Radiologic examinati on knee 3 views BRENDALUCASEDGAR GURJIT Start: 09-29-2019 Radiologic examinati on knee [...] interchangeably. Start: 11-05-2018 Blood count complete automated Harlanedgar Gallardo Gurjit Work Phone: Start: 11-05-2018 Comprehensive metabo lic panel Harlanedgar Gallardo Gurjit [employer] Phone: Start: 11-05-2018 Lipid panel Harlancarmel d Paulina Maxwell [employer] Phone: Start: 11-05-2018 PSA screening Harlanjustyna Gallardo Gurjit [employer] Phone: Decompression of med trudy nerve Colten Parra Work Phone: History of percutane ous transluminal coronary angioplasty History of PTCA Colten G Bettelong Work Phone: Leg repair Colten G Elisan g Work Phone: Comment on above: tibial plateau screw s; Nasal sinus procedure Colten G Bettelong Work Phone: Operative procedure on ankle Colten G Furlong Work Phone: Operative procedure on knee Colten G Furlong Work Phone: Procedure on back Colten G F urlong Work Phone: Plan of Treatment Date Care Activity Detail Author Start: 06-21-2025 Screening for malign ant neoplasm of colon Colon Cancer Screening 3 Year Cologuard [facility] Start: 05-03-2025 Lipid panel Lipid screen Jolynn Ralph Work Phone: Start: 04-28-2025 Hepatitis C screening Hepatitis C sc reedeepak [facility] Work Phone: Comment on above: Postponed from 07/08 (Patient Refused) Start: 04-28-2025 HIV screening HIV screen Jolynn ese [facility] Work Phone: Comment on above: Postponed from 07/08 (Patient Refused) Start: 05-01-2024 Adult BMI Screening Adult BMI Screen [facility] Start: 05-01-2024 Depression Screening Depression Scre [facility] Start: 05-01-2024 Tobacco Screening Tobacco Screening [facility] Start: 12-23-2023 Tobacco Counseling Tobacco Counselin [facility] Comment on above: Postponed from 07/08 (Not Indicated) Start: 12-18-2023 Adult BMI Screening Adult BMI Screen [facility] Start: 12-18-2023 Tobacco Screening Tobacco Screening [facility] Start: 12-15-2023 Depression Screening Depression Scre [facility] Start: 11-06-2023 Lipid panel Lipid [place] Start: 11-06-2023 Lipid screen Lipid screen [place], [place] Start: 06-09-2023 Administration of varicella zoster vaccine Zoster (Shingles) Vaccine (1 of 2) [facility] Comment on above: Postponed from 07/08 (Patient Refused) Start: 06-09-2023 DTaP,Tdap and Td Vaccines (1 - Tdap) DTaP,Tdap and Td Vaccines (1 - Tdap) [facility] Comment on above: Postponed from 07/08 (Patient Refused) Start: 06-02-2023 Influenza vaccination Influenza Vacc ine [facility] Comment on above: Postponed from 11/02 (Patient Refused) Start: 05-01-2023 End: 05-01-2023 Patient encounter procedure 05/01/2023 10:30 AM EST Office Visit [facility] [address] [place] [address] Hunter Robins, [employer] [address] [place] [address] [facility] Start: 07-13-2022 FUV, Provider: Leonid Figueredo, Status: Pen, Time: 9:00 AM FUV, Provider: Leonid Figueredo, Status: Pen, Time: 9:00 AM [facility] 250 DO Work Phone: Start: 06-04-2022 Adult depression screening assessment DEPRESSION SCREENING [facility] Start: 11-02-2021 Influenza vaccination INFLUENZ A (Season Ended) [facility] Start: 10-27-2021 FUV, Provider: Leonid Figueredo, Status: Pen, Time: 2:50 PM FUV, Provider: Leonid Figueredo, Status: Pen, Time: 2:50 PM [facility] 600 DO Work Phone: Start: 05-03-2021 Creatinine measurement Creatinine mo nitoring [employer] Phone: Start: 05-03-2021 Potassium monitoring Potassium monit oring [employer] Phone: Start: 04-28-2021 Influenza vaccination Flu vaccine (# 1) [employer] Phone: Comment on above: Postponed from 11/02 (Patient Refused) Start: 04-28-2021 Pneumococcal 0-64 ye ars Vaccine (1 of 1 - PPSV23) Pneumococcal 0-64 years Vaccine (1 of 1 - PPSV23) [employer] Phone: Comment on above: Postponed from 07/08 (Patient Refused) Start: 03-30-2021 FUV, Provider: Rachel Stacy, Status: Pen, Time: 4:30 PM FUV, Provider: Rachel Stacy, Status: Pen, Time: 4:30 PM [facility] 127 DO Work Phone: Start: 12-27-2020 FUV, Provider: Kalie Lebron, Status: Pen, Time: 1:00 PM FUV, Provider: Kalie Lebron, Status: Pen, Time: 1:00 PM [facility] [address] [place] Work Phone: Start: 11-01-2020 Creat[place] Start: 11-01-2020 Potassium monitoring Potassium monit [place] Start: 10-05-2020 Shingles Vaccine (1 of 2) Shingles Vaccine (1 of 2) [place] Comment on above: Postponed from 07/08 (Patient Refused) Start: 2020 PROSTATE CANCER SCREENING DISCUSSION PROSTATE CANCER SCREENING DISCUSSION [facility] Start: 05-26-2020 End: 05-26-2020 Office Visit 05/26/2020 Office Visit Primary Care Margarita Maxwell MD [address] [place] [address] [id number] [facility] Start: 12-16-2019 End: 12-16-2019 Office Visit 12/16/2019 Office Visit Family Medicine Kash Grier MD [address] [place] [address] [phone] Kash Grier MD [facility] Start: 12-08-2019 End: 12-08-2019 Office Visit 12/08/2019 Office Visit Primary Care Patria Quiñones CPNP [address] [place] [address] [phone] [facility] Start: 11-23-2019 End: 11-23-2019 Office Visit 11/23/2019 Office Visit Orthopedic Surgery Liu Jackson MD [facility] [address] [place] [address] [id number] [facility] Start: 11-10-2019 End: 11-10-2019 Hospital Encounter [facility] OR Comment on above: KNEE ARTHROSCOPY WIT H PARTIAL MEDICAL MENISECTOMY Start: 11-06-2019 End: 11-06-2019 Appointment 11/06/2019 Appointment Pre-Admission Testing [facility] Pre-Admit Testing Start: 11-06-2019 Creatinine measurement Creatinine mo nitoring [place], [place] Start: 11-06-2019 Creatinine monitoring Creatinine mon itoring [place] Start: 11-06-2019 Potassium monitoring Potassium monit oring [place] Start: 11-03-2019 Influenza vaccination Flu vaccine (# 1) [place] Start: 11-02-2019 End: 11-02-2019 Appointment 11/02/2019 Appointment Pre-Admission Testing [facility] Pre-Admit Testing Start: 10-31-2019 DTaP/Tdap/Td vaccine (1 - Tdap) DTaP/Tdap/Td vaccine (1 - Tdap) [place] Comment on above: Postponed from 07/08 (Patient Refused) Start: 10-31-2019 HIV screen HIV screen [place], [place] Comment on above: Postponed from 07/08 (Patient Refused) Start: 10-31-2019 HIV screening [facility] [place] Comment on above: Postponed from 07/08 (Patient Refused) Start: 10-31-2019 Pneumococcal 0-64 ye ars Vaccine (1 of 1 - PPSV23) Pneumococcal 0-64 years Vaccine (1 of 1 - PPSV23) [place] Comment on above: Postponed from 07/08 (Patient Refused) Start: 10-06-2019 End: 10-06-2019 Office Visit 10/06/2019 Office Visit Primary Care Patria Quiñones CPNP [address] [place] [address] [phone] [facility] Start: 09-29-2019 End: 09-29-2019 Office Visit 09/29/2019 Office Visit Family Medicine Patria Quiñones CPNP [address] [place] [address] [phone] Kash Grier [facility] Inc Start: 05-02-2019 Shingles Vaccine (1 of 2) Shingles Vaccine (1 of 2) [place] Comment on above: Postponed from 07/08 (Patient Refused) Start: 01-15-2019 End: 01-15-2019 Office Visit 01/15/2019 Office Visit Primary Care Margarita Maxwell MD [address] [place] [address] [phone] [facility] Start: 12-15-2018 End: 12-15-2018 Office Visit 12/15/2018 Office Visit Family Medicine Kash Grier MD [address] [place] [address] [phone] Kash Grier [facility] Start: 11-02-2018 Influenza vaccination Flu vaccine (# 1) [place] Start: 07-09-2015 Colon cancer screen colonoscopy Colon cancer screen colonoscopy [place] Start: 07-09-2015 Screening for malign ant neoplasm of colon Colon cancer screen colonoscopy [place] Start: 07-09-2015 Shingles Vaccine (1 of 2) Shingles Vaccine (1 of 2) [place] Start: 07-09-2015 SHINGRIX VACCINE (1 of 2) SHINGRIX VACCINE (1 of 2) [facility] Start: 2010 COLOGUARD (FIT-DNA) COLOGUARD (FIT-D NA) [facility] Start: 2010 Colonoscopy COLONOSCOPY [facility] Start: 2010 COLORECTAL CANCER SCREENING COLORECTAL CANCER SCREENING [facility] Start: [address] COLONOGRAPHY [facility] Start: 2010 DIABETES SCREEN DIABETES SCREEN [facility] Start: 2010 FECAL OCCULT BLOOD FECAL OCCULT BLOO D [facility] Start: 2010 SIGMOIDOSCOPY [facility] Start: 2005 Diabetes screen Diabetes screen [place], [place] Start: 2005 Lipid screen Lipid screen [place], [place] Start: 2000 LIPID SCREEN LIPID SCREEN [facility] Start: 1984 DTaP/Tdap/Td vaccine (1 - Tdap) DTaP/Tdap/Td vaccine (1 - Tdap) [place] Start: 1984 Urine microalbumin profile DTAP,TDAP,TD (1 - Tdap) [facility] Start: 07-09-1983 Adult BMI Follow Up Plan Adult BMI Follow Up Plan [facility] Start: 07-09-1983 HEPATITIS C SCREENING HEPATITIS C SC REENING [facility] Start: 07-09-1983 HIV SCREENING HIV SCREENING [facility] Start: 1980 HIV screening HIV screen [place], [place] Start: 07-09-1971 Pneumococcal 0-64 ye ars Vaccine (1 of 1 - PPSV23) Pneumococcal 0-64 years Vaccine (1 of 1 - PPSV23) [place], [place] Start: 1970 COVID-19 VACCINE (1) COVID-19 VACCIN E (1) [facility] Start: 1965 Creatinine monitoring Creatinine mon [place], [place] Start: 1965 Potassium monitoring Potassium monit oring [place] End: 11-06-2019 COVID-19 COVID-19 Lab Routine One Time for 1 Occurrences starting 11/06/2019 until 11/06/2019 [place] Comment on above: One Time for 1 Occur rences starting 11/06/2019 until 11/06/2019 End: 07-06-2022 Ct cervical spine w/o contrast material CT CERVICAL SPINE WO IVCON Radiology Routine Spinal stenosis of cervical region 1 Occurrences starting 06/06/2021 until 07/06/2022 [facility] Work Phone: Comment on above: 1 Occurrences starti ng 06/06/2021 until 07/06/2022 Oxygen therapy [[facility] Data Set] Initiate Oxygen Therapy Protocol Respiratory Care Routine Daily until discontinued starting 11/10/2019 [place], [place] Comment on above: Daily until disconti nued starting 11/10/2019 Phase I & II - meter ed glucose Phase I & II - metered glucose Point of Care Testing Routine As Needed until discontinued starting 11/10/2019 [place] Comment on above: As Needed until disc ontinued starting 11/10/2019 End: 07-06-2022 Radex spine cervical 4 or 5 views XR CERV OTHER 4V AP/LAT/FLX/EXT Radiology Routine Cervical spondylosis with myelopathy 1 Occurrences starting 06/06/2021 until 07/06/2022 [facility] Work Phone: Comment on above: 1 Occurrences starti ng 06/06/2021 until 07/06/2022 Immunizations Immunization Date Immunization Notes Care Provider Fa shannon 11-04-2019 influenza, seasonal, injectable Colten G Furlong Work Phone: [facility] [address] [place] Work Phone: 11-03-2019 influenza, seasonal, injectable Hunter Julienne [employer] Work Phone: [facility] 11-03-2019 influenza virus vaccine, unspecified formulation Hunter Julienne [employer] Work Phone: [facility] 01-21-2019 influenza virus vaccine, unspecified formulation [address] 01-21-2019 influenza, injectabl e, quadrivalent, contains preservative Shivaprasad [place] 01-02-2019 influenza, injectabl e, quadrivalent, contains preservative Colten G Furlong [facility] Work Phone: 12-02-2016 influenza, injectabl e, quadrivalent, preservative free [address] Payers Date Payer Category Payer Worker's Compensation 2021 Unknown SAGAR OLMOS PPO [id number] 2021-Present [phone] [address] [place] [address] PPO [id number] 2018 Unknown [place] P PO xxxxxxxxxxxx 2018-Present [address] [place] [address] xxxxxxxxxxxx [id number]. [id number] 2018 Unknown [place] PO [id number] 2018-Present [address] [place] [address] [id number]. [id number] 2015 Unknown [id number] 1.2.840.420772.1.13.239.2. 7.3.369190.315 2015 Unknown 1965 Unknown [id number] 2.16.840.1.623965.3.579.2. 175 1965 Unknown [id number] 2.16840.1.471997.3.579.2. 175 1965 Unknown [id number] 2.16.840.1.931126.3.579.2. 175 1965 Unknown [id number] 2.16.840.1.145739.3.579.2. 176 1965 Unknown [id number] 2.16.840.1.139188.3.579.2. 176 1965 Unknown [id number] 2.16.840.1.781581.3.579.2. 176 1965 Unknown [id number] 2.16.840.1.676153.3.579.2. 176 1965 Unknown [id number] 2.16.840.1.519979.3.579.2. 176 1965 Unknown [id number] 2.16.840.1.321895.3.579.2. 176 1965 Unknown [id number] 2.16.840.1.222629.3.579.2. 176 1965 Unknown [id number] 2.16.840.1.356141.3.579.2. 176 1965 Unknown [id number] 2.16.840.1.808613.3.579.2. 176 1965 Unknown [id number] 2.16.840.1.166659.3.579.2. 593 1965 Unknown [id number] 2.16.840.1.522529.3.579.2. 593 1965 Unknown [id number] 2.16.840.1.509196.3.579.2. 593 1965 Unknown [id number] 2.16.840.1.499935.3.579.2. 593 1965 Unknown [id number] 2.16.840.1.392565.3.579.2. 593 1965 Unknown [id number] 2.16.840.1.558779.3.579.2. 593 1965 Unknown [id number] 2.16.840.1.496744.3.579.2. 593 1965 Unknown [id number] 2.16.840.1.214613.3.579.2. 593 1965 Unknown [id number] 2.16.840.1.339091.3.579.2. 593 1965 Unknown [id number] 2.16.840.1.786318.3.579.2. 593 1965 Unknown [id number] 2.16.840.1.830691.3.579.2. 593 1965 Unknown [id number] 2.16.840.1.735832.3.579.2. 593 1965 Unknown [id number] 2.16.840.1.859611.3.579.2. 593 1965 Unknown [id number] 2.16.840.1.095947.3.579.2. 196 1965 Unknown [id number] 2.16.840.1.678113.3.579.2. 196 1965 Unknown [id number] 2.16.840.1.690358.3.579.2. 6 1965 Unknown [id number] 2.16.840.1.027004.3.579.2. 6 1965 Unknown [id number] 2.16.840.1.927209.3.579.2. 1285 1965 Unknown [id number] 2.16.840.1.614820.3.579.2. 1285 1965 Unknown [id number] 2.16.840.1.411420.3.579.2. 1285 1965 Unknown [id number] 2.16.840.1.450014.3.579.2. 1285 1965 Unknown [id number] 2.16.840.1.041219.3.579.2. 1285 1965 Unknown [id number] 2.16.840.1.934053.3.579.2. 1285 1965 Unknown [id number] 2.16.840.1.782716.3.579.2. 6 1959 Unknown [id number] 1959 Unknown [id number] Social History Date Type Detail Facility Start: 03-04-1978 End: 12-07-2022 Tobacco smoking status [facility] Current every day smoker [facility] Start: 12-08-2018 End: 04-14-2020 Cigarettes smoked current (pack per day) - Reported [place] [employer] [facility] Comment on above: 1 ppd; Start: 12-08-2018 End: 04-14-2020 Alcohol intake Yes [place] [employer] [facility] Start: 1965 Sex Assigned At Not on file [place] Start: 09-16-2019 End: 12-07-2022 Tobacco use and exposure Never used [place], [place] Start: 09-16-2019 End: 05-01-2023 Alcohol intake Current drinker of alcohol (finding) [place] Exposure to SARS-CoV -2 (event) [facility] Start: 11-02-2019 Alcohol Comment [facility] [place] Start: 06-06-2021 Alcohol intake Ex-drinker (finding) [facility] Start: 1965 Sex Assigned At Male C [facility] Start: 03-04-1978 History of tobacco use Cigarette Smo ker [facility] Adolescent depressio n screening assessment 5 [facility] Start: 03-23-2022 Alcohol [facility] Goals Date Patient Goal Desired Activity /State Personal health goal Comment on above: Formatting of this n ote might be different from the original. Evaluation of progress towards goal: safe transition to home with support of pt's and resumption with outpatient PT. Clinical Notes 11-18-2020 to 05-01-2023 [facility] 05/01/2023 10:30 AM ESTTelephone Encounter - Hunter Robins [facility] - 04/01/2023 12:18 AM ESTTelephone Encounter - [facility] 04/01/2023 12:18 AM EST Note Date & Type Note Facility 05-01-2023 History of Present illness Narrative Images from the original note were not included. [address] [place] [address] Patient: Ashok Doss Date of : 1965 [...] was normal. Patient will like to see [facility]. Patient also has a new skin [...] History: Diagnosis Date DVT (deep venous thrombosis) ([facility]) x2 Headache Hyperlipidemia Myocardial infarction ([facility]) Past Surgical History: Procedure Laterality Date ANKLE SURGERY Left CARDIAC CATHETERIZATION CARPAL TUNNEL RELEASE Right COLONOSCOPY N/A 12/07/2022 Performed by Nasir Richey DO at [facility]CTURE SURGERY Right knee, tibia KNEE [...] BMI 38.49 kg/m Physical Exam Vitals reviewed. 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 Constitutional: Appearance: Normal [...] KEEN APRN-CNP 05/02/232050 [facility] Miscellaneous Notes Due for either his well visit or CV - please set up [facility] Telephone encounter Note Due for either his well visit or CV - please set up [facility] 07-31-2022 Note CONSULTATION CONSULTATION DATE: [...] mg pills, two pills daily p.r.n. and Bixby 5 mg b.i.d. p.r.n. As part of providing excellent, safe, comprehensive care, the following was completed at our patient's visit: 1. A medication reconciliation and review to ensure accurate knowledge of current/active medications, including asking our patients to inform us about any [id number] medications or herbal remedies/nutritional supplements/alternative remedies. 2. [...] options with their primary care provider. [facility] 06-14-2022 Note CONSULTATION CONSULTATION DATE: 06/14/2022 TO: [...] sooner if needed. We did refill his Bixby. He takes 5 mg pills, one pill b.i.d. He did report this medicine does improve his quality of life, level of function and sleep pattern. As part of providing excellent, safe, comprehensive care, the following was completed at our patient's visit: 1. A medication reconciliation and review to ensure accurate knowledge of current/active medications, including asking our patients to inform us about any [id number] medications or herbal remedies/nutritional supplements/alternative remedies. 2. [...] options with their primary care provider. [facility] 05-08-2022 Note Subjective Patient ID: Ashok Doss is a 56 y.o. male who presents as a new patient referral from [facility] in [place] for acute deep right calf/soleal muscle vein [...] past 36 hour(s)). No follow-ups on file. [facility] 03-15-2022 Note CONSULTATION CONSULTATION DATE: 03/15/2022 [...] with his leg elevated. Current medications include Bixby 5/325 b.i.d. and tizanidine p.r.n. Patient's REVIEW [...] postoperatively Orthopedics plans on keeping him on Bixby 5/325 b.i.d. I do worry that his post-op pain will not be adequately relieved with Bixby, and I did encourage the patient to talk with his Orthopedics' office to discuss this. We will see the patient in the office in three months' time unless otherwise indicated. [facility] 01-16-2022 Note CONSULTATION CONSULTATION DATE: 01/16/2022 CHIEF [...] recently came off. The patient currently takes Bixby 5/325 daily, tizanidine 4 mg q.h.s. Activities aggravate the patient's pain. The patient reports standing too long, walking too long, ADLs aggravate the pain. Heat mitigates the patient's pain. Pushing, pulling, lifting aggravate the pain. Laying down mitigates the pain. The patient takes Bixby 5/325 one tablet p.o. daily. He finds [...] left foot. PLAN: We will increase the Bixby to 5/325 b.i.d. The patient will also start aquatic program. We will schedule the patient for a rhizotomy, radiofrequency ablation of the dorsal median rami at the level of L2, 3 and L4, 5; given that the patient has had successful medial branch blocks on two separate occasions. CC: Elisabeth Galvan NP [facility] 12-28-2021 Note CONSULTATION CONSULTATION DATE: [...] increased stiffness in his back. Medications include Bixby 5/325 q. day p.r.n. and Tizanidine 4 [...] followed up in the clinic thereafter. [facility] 10-26-2021 Note CONSULTATION CONSULTATION DATE: 10/26/2021 HISTORY [...] 18, which is one year since his HI. He has not been able to gain approval to be off the Brilinta for interventional procedures. He is interested, however, in moving forward with procedures once the Brilinta is discontinued. He has seen Neurosurgery at the [facility] and they would like to [...] discontinue Tylenol #3 and start him on Bixby 5/325 daily p.r.n. Vitamin importance and nutrition were discussed as well. Patient agrees to move forward with this plan and be followed up in the clinic post his #1 procedure. [facility] 07-04-2021 Miscellaneous Notes Neuro SPINE CARE COORDINATION QUICK NOTE Called patient to discuss scheduling for surgery. States he is not ready to schedule but will call back when he is. Also advised it best for recovery to work on quitting smoking. documented in this encounter [facility] 06-06-2021 Note HNO ID: [id number] Author: Megan Interiano MD Service: ? Author [...] lumbar laminectomy approx. 20 years ago in [place]. Did well post-op with resolution of sciatica. Has had chronic low back pain. Over the last 6 months he describes episodes of his legs feeling like rubber . Would occur randomly. Over the last 3 months he's started to experience this in the arms as well. 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 [facility] 06-06-2021 History of Present illness Narrative Images [...] lumbar laminectomy approx. 20 years ago in [place]. Did well post-op with resolution of sciatica. Has had chronic low back pain. Over the last 6 months he describes episodes of his legs feeling like rubber . Would occur randomly. Over the last 3 months he's started to experience this in the arms as well. 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 I examined the patient and evaluated all available films and pertinent documents. We discussed the case and I agree with the plans as outlined in this note. As above, Ashok Doss is a 55 year old male with history of lumbar laminectomy about 20 years ago in [place] who presents for evaluation of mid back pain and LE weakness. Over the last 6 months he describes episodes of his legs feeling like rubber . Would occur randomly. Over the last 3 months he's started to experience this in the arms as well. 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 Staff note: 1. PCSM, plan for C4-T2 fusion and decompression, RBAEO reviewed in comprehensive detail, all questions answered to stated satisfaction Megan Interiano MD documented in this encounter [facility] 04-24-2021 Note HNO ID: [id number] Author: Ashia Bermeo APRN.MOLDER TRIMMER Service: ? Author Type: Nurse Practitioner Type: [...] lumbar laminectomy approx. 20 years ago in [place]. Did well post-op with resolution of sciatica. [...] Distances ANTIPLATELET OR ANTICOAGULATION STATUS: Yes Previous HI PREVIOUS SPINAL SURGERY: SURGERY #1: L5-S1 Laminectomy in [place] approx. 20 years ago There is no [...] vision or hearing. CARDIOVASCULAR: Hypertension and previous HI RESPIRATORY: Denies SOB, sputum production, and hemoptysis. [...] day PHQ-9 Levels: (more content not included)... [facility] 04-14-2021 Note HNO ID: [id number] Author: Sonja Moser PA-C Service: ? Author Type: Physician Cabana Attendant Type: Progress Notes Filed: 04/14/2021 3:29 PM Note Text: Per Triage: Ashok Doss is a 55 year old male that requests evaluation of spine. Per review, they have symptoms of back pain, neck pain, weakness, tingling in legs. Prior spine surgery: Several years ago (20) at a [facility] CMT: Muscle relaxer Studies (Reports [...] is available for review. Sonja Moser PA-C [facility] 04-12-2021 Note HNO ID: [id number] Author: Macario Garcia Service: ? Author Type: ? Type: Progress Notes Filed: 04/14/2021 3:29 PM Note Text: Patient name: Ashok Doss Are you being referred by a Rhodelia for Spine Health Provider or Pain Management Provider at [facility]? No If answer is YES please [...] the facility where the MRI/CT/myelogram was completed: [facility] Address: [address] [place] [id number] MRI/CT/myelogram viewable in Epic: No If not, please provide [phone] to fax in imaging reports for review. [...] completed: Several years ago (20) at a [place] [facility] Could not recall any additional information at the time of the call Additional Comments [phone] [facility] 11-20-2020 Note Send Summary: Discharge Summary Providers: Provider RoleProvider Name PrimaryRequired, No Pcp ConsultingJosé Miguel Posey ConsultingRachel Stacy ReferringRequired, No Pcp AttendingRachel Stacy Note Recipients: Rachel Stacy MD - [id number] [preferred] Required, No PcpMD Discharge Summary: Admission Date: .18-Nov-2020 18:57:00 Discharge Date: 20-Nov-2020 Attending Physician at Discharge: Rachel Stacy Admission Reason: Inferior Wall STEMI(1) Final Discharge Diagnoses: Acute inferior ST elevation HI. Procedures: Left heart Catheterization, selective coronary angiography, left ventriculography, LV ao pullback, PCI and drug-eluting stent to the distal mid RCA, selective right common femoral angiography, Angio-Seal deployment. Condition at Discharge: stable Disposition at Discharge: Home Vital Signs: T PRBPSpO2 [id number]/7494% Date/Time11/20 11: 11: 20: 11: 11:20 Range(36.8C - 37C ) (70 - 87 ) (17 - 28 ) (132 - 165 )/ (66 - 82 ) (94% - 99% ) Highest temp of 37 C was recorded at 11/20 7:45 Date: Weight/Scale Type:Height: 18-Nov-2020 23:15161.7 kg 188 cm Physical Exam: Patient is [...] hour away, and will be seeking a traffic supervisor closer to home, but will be seen at [facility] with me within 1 week to [...] laboratory results: Troponin I, Serum Trending View [id number] 21:03:00 19-Nov-2020 13:00:00 19-Nov-2020 05:23:00 19-Nov-2020 00:54:00 [...] Authorization (EUA) and has been verified by [facility] This test is only authorized for the duration (more content not included)... [facility] 11-18-2020 Note History of Present I llness: [...] Brilinta IV heparin, and was transferred to [facility] emergency department. Code purple called was [...] 1 mg IV, and Bairon-Synephrine, with prompt mormon of heart rate and blood pressure. At [...] you, Sincerely, Rachel Stacy MD [facility] Comorbidities: Comorbidites: Comorbid Conditionshypertension Allergies: Allergy Status [...] Last Updated: 18-Nov-2020 20:21 by Rachel Stacy) [facility] 11-18-2020 Chief complaint Narrative - Reported ASHOK DOSS is being seen for a cardiovascular evaluation . testing results.ASHOK DOSS is a 55 year old male that presents to the [facility] Heart Office with his for follow-up on testing. He follows with his primary traffic supervisor Dr. Stacy and was added to my schedule today. He has a recent history of an HI with cardiac catheterization 11/18/2020 with PCI and [...] see if cardiac rehabilitation is possible at [facility] that is closest to his home. He [...] refill his sublingual nitro for him today.Testing mudsfuxk50/22/2021 echocardiogram; LVEF 60 to 65%. Normal RV size and function. Trivial MR, trivial TR, RVSP 32 mmHg.12/23/2020 cardiac stress test; no exercise-induced chest discomfort or ST changes at 76% of MPHR.Assessment:1. CAD; with acute inferior ST elevation HI requiring cardiac catheterization 11/18/2020 with PCI and [...] software was used to prepare this document. [facility] 127 DO Work Phone: Evaluation note Diagnosis Cervical spondylosis with myelopathy- Primary Loss of balance Other symptoms involving nervous and musculoskeletal systems Spinal stenosis of cervical region Spinal stenosis in cervical region [facility] Migraine, unspecified, not intractable, without status migrainosus [facility] Diagnosis Essential hypertension- Primary Unspecified essential hypertension Chronic hip pain, left Mixed hyperlipidemia Enlarged prostate Hypertrophy of prostate without urinary obstruction and other lower urinary tract symptoms (LUTS) Skin lesion of left lower limb Unspecified disorder of skin and subcutaneous tissue documented in this encounter [facility] SystemHistory of Present illness Narrative* Patient is seen by me for the first time. 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 He was taken to [facility] where he had a coronary intervention and [...] the merits of lifestyle modification and exercise. -[facility] 600 DO Work Phone: History of Present [...] in order to furtherimprove his hypertension and lipids.[facility] 250 DO Work Phone: InstructionsNot on filedocumented in this encounter [facility] SystemInstructionsNot on filedocumented in this encounter [facility] SystemInstructionsNot on filedocumented in this encounter [facility] Consultation (Routine) - Pending Review Specialty Diagnoses / Procedures Referred By Contac t Referred To Contact Dermatology Diagnoses Skin lesion of left lower limb Hunter Robins APRN-CNP [address] [place] [address] Silviano Burroughs, DO [address] [place] [address] Referral ID Status Reason Start Date Expiration Date Visits Requested Visits Authorized [id number] Pending Review Specialty Services Required 05/01/2023 04/30/2024 1 1 * Consultation (Routine) - Pending Review Specialty Diagnoses / Procedures Referred By Contac t Referred To Contact Urology Diagnoses Enlarged prostate Hunter Robins APRN-CNP [address] [place] [address] Deborah Jeronimo MD [address] [place] [address] [place] [address] Referral ID Status Reason Start Date Expiration Date Visits Requested Visits Authorized [id number] Pending Review Specialty Services Required 05/01/2023 04/30/2024 1 1 * Misc (Routine) - Pending Review Specialty Diagnoses / Procedures Referred By Contac t Referred To Contact Diagnoses Chronic hip pain, left Procedures Disability/Handicap Karriekelley Hnuter Robins APRNMARTY [address] [place] [address] Referral ID Status Reason Start Date Expiration Date V isits Requested Visits Authorized [id number] Pending Review 05/01/2023 04/30/2024 1 1 [facility] Assessments Diagnosis Gouty arthritis of right [...] FoundDocuments on File Type Date Recorded Patient Paper Colorer Expl anation Advance Directives and Living Will Power of Customs Director Documents on File Type Date Recorded Patient Paper Colorer Expl anation ACP-Advance Directive ACP-Power of Customs Director Documents on File Type Date Recorded Patient Paper Colorer Expl anation ACP-Advance Directive ACP-Power of Customs Director Latest Code Status on File Code Status [...] WO CONTRAST Patria Quiñones, PADMINI [address] [place] [address] Specialty Diagnoses / Procedures Referred By Contac t Referred To Contact CT IMAGING Diagnoses Spinal stenosis of cervical region Procedures CT CERVICAL SPINE WO IVCON CT CERVICAL SPINE W/O CONTRAST MATERIAL Megan Interiano MD [address] [place] [address] Ct Imaging Referral ID Status Reason Start Date Expiration Date Visits Requested Visits Authorized [id number] Authorized Auto-Generat ed Referral 06/06/2021 07/06/2022 1 1 Specialty Diagnoses / Procedures Referred By Contac t Referred To Contact XR IMAGING Diagnoses Cervical spondylosis with myelopathy Procedures XR CERV OTHER 4V AP/LAT/FLX/EXT RADEX SPINE CERVICAL 4 OR 5 VIEWS Vivien Lawton PA-C [address] [place] [address] Xr Imaging Referral ID Status Reason Start Date Expiration Date Visits Requested Visits Authorized [id number] Authorized Auto-Generat ed Referral 06/06/2021 07/06/2022 1 [...] powder, deodorant, jewelry, piercings, perfume, makeup, nail french, hair accessories, or hair spray on the [...] hospital. The Day of Surgery: Arrive at [facility] Surgery Entrance at the time directed by your surgeon and check in at the desk. If you have a living will or healthcare power of vacuum metalizer operator, please bring a copy. You will be taken to the pre-op holding area where you will be prepared for surgery. A physical assessment will be performed by a nurse practitioner or dry house tender. Your IV will be started and you [...] encounter* Instructions* Irish Meehan RN - 11/10/2019 [facility] Dr. Liu Jackson M.D. [phone] POST OPERATIVE DISCHARGE INSTRUCTIONS KNEE ARTHROSCOPY 1. Follow-up in office seven to ten days after surgery. Call for appointment if not already made. ([phone]). 2. Take pain medication as ordered. 3. [...] WO CONTRAST Patria Quiñones CPNP [address] [place] [address] Status Reason Specialty Diagnoses / Procedures Referre d By Contact Referred To Contact Diagnoses Acute medial meniscus tear of left knee MEDIAL MENISCUS TEAR LEFT KNEE Procedures [place] KNEE SCOPE,DIAGNOSTIC KNEE ARTHROSCOPY WITH PARTIAL MEDICAL MENISECTOMY Liu Jackson MD [address] [facility] [address] [place] [address] [facility] Reason Comments New Patient Reason Comments [...] section and content) DATE CREATED AUTHOR 05/06/[address] [facility] DATE CREATED AUTHOR AUTHOR'S ORGANIZ ATION 05/07/2020 [facility] DATE CREATED AUTHOR AUTHOR'S ORGANIZ ATION [facility] DATE CREATED AUTHOR AUTHOR'S ORGANIZ ATION 07/06/[address] [facility] DATE CREATED AUTHOR AUTHOR'S ORGANIZ ATION 10/26/2021 [facility] DATE CREATED AUTHOR AUTHOR'S ORGANIZ ATION 08/10/2022 [facility] DATE CREATED AUTHOR AUTHOR'S ORGANIZ ATION 08/24/2022 [facility] DATE CREATED AUTHOR AUTHOR'S ORGANIZ ATION 06/26/2023 [facility] DATE CREATED AUTHOR AUTHOR'S ORGANIZ ATION 08/01/2023 [facility] DATE CREATED AUTHOR AUTHOR'S ORGANIZ ATION 08/06/2023 [facility] Ambulatory [facility] DATE CREATED AUTHOR AUTHOR'S ORGANIZ ATION 08/21/[address] [facility] Source Comments (unrecognize d section and content) In the event this informatio n is protected by the Federal Confidentiality of Alcohol and Drug Abuse Patient Records regulations: The Federal rules restrict any use of the information to criminally investigate or prosecute any alcohol or drug abuse patient.[facility] the event this information is protected by the Federal Confidentiality of Alcohol and Drug Abuse Patient Records regulations: The Federal rules restrict any use of the information to criminally investigate or prosecute any alcohol or drug abuse patient.[facility] Care Teams (unrecognized sec tion and content) Marriage And Family Social Worker Relationship Specialty Start Date End Date Colten Parra DO [address] [place] [address] PCP - General Family Medicine 04/03/22 Marriage And Family Social Worker Relationship Specialty Start Date End Date Colten Parra DO [address], [place] [address] PCP - General Family Medicine 04/03/22 Marriage And Family Social Worker Relationship Specialty Start Date End Date Colten Parra DO [address] [place] [address] PCP - General Family Medicine 04/03/22 FOR [...] BE BASED ON THE PRIMARY CLINICAL RECORDS. [employer] [facility]. provides no warranty or guarantee of the accuracy or completeness of information in this document.
--- NOTE | 2023-08-22 10:45 | PM.CN ---
Consult Note: HPI Data of Consult Patient: known to practice within the last 3 years Consult date: 09/27/22 Requesting Physician: Priscilla Elkins NP Primary Care Provider: HUNTER ROBINS Consult Narrative Reason for consult: f/u Narrative: Patient is here for f/u of chronic low back and left hip pain. Pain is in the left hip and low back No new sensorimotor sx or bowel or bladder issues. No adverse medication SE. Medications assist patient with better ability to perform ADLs. He has seen orthopedics for his knee and they advised he would need total hip done left. He wants to get surgery done. Currently working with [employer] and [employer] to get his hip surgery covered. Today rating pain 2/10 in left hip and low back, pain in left low back and hip increases to 5/10 with standing and activity, decreases with sitting. Patient reporting >80% improvement in left hip pain for 1 month, no ongoing improvement. Repeat bilateral L4-5 L5-S1 facet RFA providing >75% improvement in axial low back pain ongoing per pt. Continues to find functional improvement and pain relief from norco 5-325mg 1-1.5 tabs BID PRN and baclofen 10mg TID PRN, denies side effects. Recent left SIJ injection >70% improvement ongoing. cc:: CC: Priscilla Elkins NP Review of Systems ROS Status of ROS 10 or more systems reviewed and unremarkable except as noted in history and below Musculoskeletal Reports: back pain and joint pain PFSH [facility] Medical History (Updated 07/17/23 @ 10:05 by Priscilla Elkins NP) Osteoarthritis ?M19.90 - Unspecified osteoarthritis, unspecified site (ICD-10) Enlarged prostate ?N40.0 - Benign prostatic hyperplasia without lower urinary tract symptoms (ICD-10) Obstructive sleep apnea on CPAP ?G47.33 - Obstructive sleep apnea (adult) (pediatric) (ICD-10) Sleep apnea ?G47.30 - Sleep apnea, unspecified (ICD-10) History of heart attack ?I25.2 - Old myocardial infarction (ICD-10) Surgical History History of cardiac cath ?Z98.890 - Other specified postprocedural states (ICD-10) History of surgery on lower extremity ?Z98.890 - Other specified postprocedural states (ICD-10) Meds Home Medications and Allergies Home Medications ?Medication ?Instructions ?Recorded ?Confirmed ?Type atorvastatin 80 mg tablet 80 mg PO BEDTIME 08/14/22 08/12/23 History baclofen 10 mg tablet 10 mg PO TID PRN muscle spasm 08/14/22 08/12/23 History divalproex 125 mg tablet,delayed 125 mg PO TID 08/14/22 08/12/23 History release lisinopril 20 1 tab PO DAILY 08/14/22 08/12/23 History mg-hydrochlorothiazide 12.5 mg tablet metoprolol tartrate 25 mg tablet 25 mg PO BID 08/14/22 08/12/23 History hydrocodone 5 mg-acetaminophen 325 1 tab PO BID PRN pain #80 tabs 05/15/23 08/12/23 Rx mg tablet Allergies Allergy/AdvReac Type Severity Reaction Status Date / Time amoxicillin Allergy Mild Nausea Verified 08/12/23 09:40 Exam Constitutional Documenting provider has reviewed patient's vital signs: yes Common normals: no apparent distress, oriented x3, healthy appearing, alert and well nourished General appearance: cooperative Orientation/consciousness: Yes awake, Yes oriented to person, Yes oriented to place and Yes oriented to time HENND Common normals: normocephalic, hearing grossly normal bilaterally and moist oral mucous membranes Head and scalp: normocephalic Eye Common normals: PERRL Pupil: PERRL Neck & C-Spine Common normals: full ROM General: normal visual inspection Chest Common normals: inspection of chest normal Respiratory Common normals: normal respiratory effort, no retractions and no use of accessory muscles Effort & inspection: able to speak in complete sentences and symmetric chest movement Back & Pelvis Lumbar spine/lower back: normal to inspection, lumbar ROM normal and straight leg raise negative bilaterally Sacroiliac joints: SI joint(s) abnormal Other: left SIJ mildly positive cathie(patricks), gaenslens, thigh thrust, compression test Extremity Common normals: normal capillary refill and no pedal edema Other: negative internal and external rotation of left hip muscle strength 5/5 bilat LE with intact sensation Neuro Common normals: oriented x3, CN's II-XII intact bilaterally, moves all extremities, no focal motor deficits, no sensory deficits noted and deep tendon reflexes 2+ bilaterally Sensorium/orientation: alert Gait (neuro): assistive device used cane Motor exam: strength 5/5 throughout and no movement abnormalities noted Psych Common normals: mental status grossly normal, thought process normal, cooperative, affect normal, speech normal and activity/motor behavior normal Speech: normal speech Thought process: normal thought process Results Additional Findings Additional findings: If on a controlled substance or opioids, I have checked an OARRS report on this patient and there are no aberrancies noted in the prescribing history.??If on a controlled substance or opioid a drug screen was completed and reviewed within the last year, and if there has not been a drug screen completed we ordered one today to monitor higher risk, state monitored pain medication use. As part of providing excellent, safe, comprehensive care, the following was completed at our patient's visit: 1. A medication reconciliation and review to ensure accurate knowledge of current/active medications, including asking our patients to inform us about any [id number]-dud-edmandt medications or herbal remedies/nutritional supplements/alternative remedies. 2. A review to specifically ensure our patients have had annual screening for screening for depression, screening for tobacco use, and screening for unhealthy alcohol use. For concerning screenings had a discussion with the patient, provided patient education, and recommended follow-up with primary care provider when appropriate. If patient noted with a risk of falling, they received education on strength, gait, and balance training to prevent future risk of falling. Assessment and Plan Assessment and Plan (1) Sacroiliitis: Assessment and Plan: >70% improvement in pain and functional ability from left SIJ injection ongoing (2) Lumbar spondylosis: Assessment and Plan: bilateral L4-5 L5-S1 facet RFA >75% improvement ongoing (3) Chronic prescription opiate use: Assessment and Plan: I feel these medications are improving the patient's quality of life and allow them to tolerate activities of daily living as well as participate in recreational activity.? The patient does not report intolerable side effects. The patient is NOT opioid naive and non-pharmacologic and non-opioid treatment has failed to significantly relieve the patient's pain and improve functionality. The patient has a diagnosis that is related to a somatic or visceral pain etiology. ? ?? I reviewed with the patient the potential risks and side effects with the use of? opioid medications including but not limited to respiratory depression,? sedation, and even . I verified the patient has access to naloxone should? these effects occur. I advised the patient to avoid the use of any other? sedation substances including alcohol, THC, and benzodiazepines while? taking opioid medications due to the risk of compounding side effects and? detrimental outcomes. I reviewed the TOUR BUS DRIVER/GUIDE, pain treatment agreement, urine? drug screen, and opioid start talking forms. The patient was advised to let? their family know they had Naloxone in case they would need to administer? the medication.? ?? A drug screen was completed within the last year, and no aberrancies were noted regarding their use of controlled substances. The patient understands they are subject to the terms and conditions of the pain contract that they have signed. ? ?? I have checked an OARRS report on this patient today and there are no aberrancies noted in the prescribing history.? (4) Osteoarthritis, hip, bilateral: Plan decrease norco 5-325mg BID PRN moderate to severe pain, next fill once daily as needed moderate to severe pain. reports functional improvement, improved ability to walk complete housework and go out with his patient going to [place] in november and is requesting a letter of necessity for his medications while he is there, I am agreeable to completing this. continue f/u with orthopedic surgeon for consideration of left hip surgery, no surgical intervention per pt for 3+ months f/u 3 months for medication management
== END 2023-08-22 10:20 | disposition home or self-care (01) ==
PROVIDERS: PCP Nurse Practitioner Family; Visit Provider Nurse Practitioner
DX: M46.1 Sacroiliitis, not elsewhere classified (principal); M47.816 Spondylosis without myelopathy or radiculopathy, lumbar region; Z79.891 Long term (current) use of opiate analgesic; M16.0 Bilateral primary osteoarthritis of hip
CPT/HCPCS: G0463

== ENCOUNTER 2023-09-25 14:52 | Outpatient (OUT) | payer BC, SELFPAY ==
--- NOTE | 2023-09-25 15:29 | PM.CN ---
Consult Note: HPI Data of Consult Patient: known to practice within the last 3 years Consult date: 09/27/22 Requesting Physician: Priscilla Elkins NP Primary Care Provider: HUNTER ROBINS Consult Narrative Reason for consult: f/u Narrative: Patient is here for f/u of chronic low back and left hip pain. Pain is in the left hip and low back No new sensorimotor sx or bowel or bladder issues. No adverse medication SE. Medications assist patient with better ability to perform ADLs. He has seen orthopedics for his knee and they advised he would need total hip done left. He wants to get surgery done. Currently working with [employer] and [employer] to get his hip surgery covered. Today rating pain 5/10 in left hip and low back, pain in left low back and hip increases to 5/10 with standing and activity, decreases with sitting. Patient reporting >80% improvement in left hip pain for 1 month, and now reporting >50% improvement for 3 months but can tell it has worn off. Repeat bilateral L4-5 L5-S1 facet RFA providing >75% improvement in axial low back pain ongoing per pt. Continues to find functional improvement and pain relief from norco 5-325mg 1-1.5 tabs BID PRN and baclofen 10mg TID PRN, denies side effects. Recent left SIJ injection >50% improvement ongoing. cc:: CC: Priscilla Elkins NP Review of Systems ROS Status of ROS 10 or more systems reviewed and unremarkable except as noted in history and below Musculoskeletal Reports: joint pain PFSH PFSH Medical History (Updated 07/17/23 @ 10:05 by Priscilla Elkins NP) Osteoarthritis ?M19.90 - Unspecified osteoarthritis, unspecified site (ICD-10) Enlarged prostate ?N40.0 - Benign prostatic hyperplasia without lower urinary tract symptoms (ICD-10) Obstructive sleep apnea on CPAP ?G47.33 - Obstructive sleep apnea (adult) (pediatric) (ICD-10) Sleep apnea ?G47.30 - Sleep apnea, unspecified (ICD-10) History of heart attack ?I25.2 - Old myocardial infarction (ICD-10) Surgical History History of cardiac cath ?Z98.890 - Other specified postprocedural states (ICD-10) History of surgery on lower extremity ?Z98.890 - Other specified postprocedural states (ICD-10) Meds Home Medications and Allergies Home Medications ?Medication ?Instructions ?Recorded ?Confirmed ?Type atorvastatin 80 mg tablet 80 mg PO BEDTIME 08/14/22 08/12/23 History baclofen 10 mg tablet 10 mg PO TID PRN muscle spasm 08/14/22 08/12/23 History divalproex 125 mg tablet,delayed 125 mg PO TID 08/14/22 08/12/23 History release lisinopril 20 1 tab PO DAILY 08/14/22 08/12/23 History mg-hydrochlorothiazide 12.5 mg tablet metoprolol tartrate 25 mg tablet 25 mg PO BID 08/14/22 08/12/23 History hydrocodone 5 mg-acetaminophen 325 1 tab PO BID PRN pain #80 tabs 05/15/23 08/12/23 Rx mg tablet hydrocodone 5 mg-acetaminophen 325 1 tab PO BID PRN pain #60 tabs 08/22/23 Rx mg tablet Allergies Allergy/AdvReac Type Severity Reaction Status Date / Time amoxicillin Allergy Mild Nausea Verified 08/12/23 09:40 Exam Constitutional Documenting provider has reviewed patient's vital signs: yes Common normals: no apparent distress, oriented x3, healthy appearing, alert and well nourished General appearance: cooperative Orientation/consciousness: Yes awake, Yes oriented to person, Yes oriented to place and Yes oriented to time HENMT Common normals: normocephalic, hearing grossly normal bilaterally and moist oral mucous membranes Head and scalp: normocephalic Eye Common normals: PERRL Pupil: PERRL Neck & C-Spine Common normals: full ROM General: normal visual inspection Chest Common normals: inspection of chest normal Respiratory Common normals: normal respiratory effort, no retractions and no use of accessory muscles Effort & inspection: able to speak in complete sentences and symmetric chest movement Back & Pelvis Lumbar spine/lower back: normal to inspection, lumbar ROM normal and straight leg raise negative bilaterally Sacroiliac joints: SI joint(s) abnormal Other: left SIJ mildly positive cathie(patricks), gaenslens, thigh thrust, compression test Extremity Common normals: normal capillary refill and no pedal edema Other: Positive internal and external rotation of left hip muscle strength 5/5 bilat LE with intact sensation Neuro Common normals: oriented x3, CN's II-XII intact bilaterally, moves all extremities, no focal motor deficits, no sensory deficits noted and deep tendon reflexes 2+ bilaterally Sensorium/orientation: alert Gait (neuro): assistive device used cane Motor exam: strength 5/5 throughout and no movement abnormalities noted Psych Common normals: mental status grossly normal, thought process normal, cooperative, affect normal, speech normal and activity/motor behavior normal Speech: normal speech Thought process: normal thought process Results Additional Findings Additional findings: If on a controlled substance or opioids, I have checked an OARRS report on this patient and there are no aberrancies noted in the prescribing history.??If on a controlled substance or opioid a drug screen was completed and reviewed within the last year, and if there has not been a drug screen completed we ordered one today to monitor higher risk, state monitored pain medication use. As part of providing excellent, safe, comprehensive care, the following was completed at our patient's visit: 1. A medication reconciliation and review to ensure accurate knowledge of current/active medications, including asking our patients to inform us about any [id number] medications or herbal remedies/nutritional supplements/alternative remedies. 2. A review to specifically ensure our patients have had annual screening for screening for depression, screening for tobacco use, and screening for unhealthy alcohol use. For concerning screenings had a discussion with the patient, provided patient education, and recommended follow-up with primary care provider when appropriate. If patient noted with a risk of falling, they received education on strength, gait, and balance training to prevent future risk of falling. Assessment and Plan Assessment and Plan (1) Osteoarthritis, hip, bilateral: (2) Sacroiliitis: (3) Lumbar spondylosis: (4) Chronic prescription opiate use: Assessment and Plan: I feel these medications are improving the patient's quality of life and allow them to tolerate activities of daily living as well as participate in recreational activity.? The patient does not report intolerable side effects. The patient is NOT opioid naive and non-pharmacologic and non-opioid treatment has failed to significantly relieve the patient's pain and improve functionality. The patient has a diagnosis that is related to a somatic or visceral pain etiology. ? ?? I reviewed with the patient the potential risks and side effects with the use of? opioid medications including but not limited to respiratory depression,? sedation, and even . I verified the patient has access to naloxone should? these effects occur. I advised the patient to avoid the use of any other? sedation substances including alcohol, THC, and benzodiazepines while? taking opioid medications due to the risk of compounding side effects and? detrimental outcomes. I reviewed the IT FIELD TECHNICIAN, pain treatment agreement, urine? drug screen, and opioid start talking forms. The patient was advised to let? their family know they had Naloxone in case they would need to administer? the medication.? ?? A drug screen was completed within the last year, and no aberrancies were noted regarding their use of controlled substances. The patient understands they are subject to the terms and conditions of the pain contract that they have signed. ? ?? I have checked an OARRS report on this patient today and there are no aberrancies noted in the prescribing history.? Plan repeat left hip injection under fluoroscopy increase norco 5-325mg BID PRN moderate to severe pain 55 tabs/month continue HEP as tolerated f/u two weeks after injection
== END 2023-09-25 14:53 | disposition home or self-care (01) ==
PROVIDERS: PCP Nurse Practitioner Family; Visit Provider Nurse Practitioner
DX: M16.0 Bilateral primary osteoarthritis of hip (principal); M46.1 Sacroiliitis, not elsewhere classified; M47.816 Spondylosis without myelopathy or radiculopathy, lumbar region; Z79.899 Other long term (current) drug therapy
CPT/HCPCS: G0463

== ENCOUNTER 2023-10-22 07:42 | Day surgery (SDC) | payer BC, SELFPAY ==
--- OUTSIDE RECORDS SUMMARY | 2023-10-22 07:49 | XMS_ITS | CCD ---
Author Organization [facility] ion [facility] Care Team Providers Care Evening Sitter Name Role Phone Margarita Maxwell Primary Care [...] Unavailable LORENZO ., JANA MENDOZA Consulting Unavailabl valdez MACEDO, TANNER Consulting Unavailable JULIENNE, HUNTER Primary Care Unavailable OSBORNE ., MR ROZ Consulting Unavailable OSBORNE ., MR ROZ Attending Unavailable OSBORNE ., MR ROZ Admitting Unavailable MADONNA, RAJIV Consulting Unavailable AWAD ., DR COMPA Vo Admitting Unavailable AWAD ., DR COMPA Vo Consulting Unavailable JULIENNE, HUNTER Primary Care Unavailable AWAD ., DR COMPA Vo Attending Unavailable LAKSHMIPATHY ., NARENDRANANGELINA Attending Nora vailable LAKSHMIPATHY ., NARENDRANATH Admitting Nora vailable JULIENNE, HUNTER Primary Care Unavailable WEST, DR VASILE Gentile Consulting Unavailable ERNESTO, DR MICHAEL Braun Consulting Unavailable LAKSHMIPATHY ., NARENDRANATH Consulting Nora vailable DELMI ., DR COMPA Vo Attending Unavailable DELMI ., DR COMPA Vo Admitting Unavailable JULIENNE, HUNTER Primary Care Unavailable MYRIAM ANDERSON Unavailable WINIFRED BORGES Attending Unavailable Furlong Colten CARR Primary Care Provider [phone] HUNTER ROBINS Referring Unavailable FURLONG, COLTEN G Primary Care Unavailable DEBORAH JERONIMO Attending Unavailable JULIENNE, HUNTER L Referring Unavailable FURLONG, COLTEN G Primary Care Unavailable FURLONG, COLTEN G Referring Unavailable FURLONG, COLTEN G Primary Care Unavailable DEBORAH JERONIMO. Attending Unavailable DEBORAH JERONIMO G. Referring Unavailable FURLONG, COLTEN G Primary Care Unavailable JERONIMODEBORAH SANTIAGO G. Referring Unavailable FURLONG, COLTEN G Primary Care Unavailable FURLONG, COLTEN G Referring Unavailable FURLONG, COLTEN G Primary Care Unavailable DEBORAH JERONIMO. Admitting Unavailable DEBORAH JERONIMO. Attending Unavailable DEBORAH JERONIMO. Referring Unavailable FURLONG, COLTEN G Primary Care Unavailable Néstor GARCIA, Christina Portillo Attending Unavailable Marge GARCIA, Antonio Rodriguez Primary Care Unavailable Néstor GARCIA, Christina Portillo Attending Unavailable Marge GARCIA, Antonio Michael Primary Care Unavailable LEONID FIGUEREDO Attending Unavailable FURLONG, COLTEN TRISTA Primary Care Unavailab le BELLA ROBINSIANA L Attending Unavailable FURLONG, COLTEN G Referring Unavailable FURLONG, COLTEN G Primary Care Unavailable MARY CRUZ Attending Unavailable FURLONG, COLTEN G Referring Unavailable FURLONG, COLTEN G Primary Care Unavailable DEBORAH JERONIMO Attending Unavailable FURLONG, COLTEN G Referring Unavailable FURLONG, COLTEN G Primary Care Unavailable Allergies Allergy Classification Reported Allergen(s) Allergy Type Date of Onset Reaction(s) Facility (3 sources) Amoxicillin; Translations: [AMOXICILLIN] Drug Allergy 08-21-2023 [facility] Repository (3 sources) predniSONE; Translations: [PREDNISONE] Drug Allergy 08-21-2023 [facility] [...] pain 30 tablet 0 11/10/2019 11/15/2019 Active [place] 5-325 MG T ABS TAKE 1 TABLET [...] Active Start: 11-29-2020 take 1 tablet by [facility] once daily Atorvastatin Calcium 80 MG Oral [...] 09/14/2022 Active take 3 tablets by [facility] once daily as needed for muscle spasms [...] Start: 05-06-2019 take 1 capsule by [facility] once daily tamsulosin (FLOMAX) 0.4 MG capsule TAKE 1 CAPSULE BY MOUTH EVERY DAY 90 capsule 1 05/06/2019 Active Start: 10-09-2018 take 1 capsule by [facility] once daily tamsulosin (FLOMAX) 0.4 [...] by francesco th twice daily as needed. [id number] actuat albuterol 0.09 mg/actuat metered dose [...] Active Start: 08-14-2019 take 1 tablet by francecso th once daily lisinopril-hydroCHLOROthiazide (PRINZIDE;ZESTORETIC) 20-12.5 MG [...] PERSISTS. Quantity: 25 Refills: 3 Ordered: 27-Dec-2020 Bernardino Kalie SAMAYOA Start : 22-Nov-2020 Active nitroglycerin (N ITRO-TIME [...] completed) Start: 10-28-2018 take 1 capsule by [facility] once daily propranolol (INDERAL LA) [...] [Coronary atherosclerosis of unspecified type of vessel, [place] or graft] Onset: 04-02-2023 05-01-2023 Chronic Coronary atherosclerosis and other heart disease (4 sources) Stented coronary artery; Translations: [Percutaneous transluminal coronary angioplasty status] Onset: 04-02-2023 Episodic Diseases of white blood cells (3 sources) Band neutrophil count above reference range; Translations: [Bandemia] Onset: 06-21-2022 06-21-2022 Chronic Disorders of lipid metabolism (15 sources) Hyperlipidemia; Translations: [Other and unspecified hyperlipidemia] Onset: 04-02-2023 05-01-2023 Chronic Essential hypertension (20 sources) Essential hypertension; Translations: [Hypertensive disorder] Onset: [...] status migrainosus] 04-01-2023 Chronic Hyperplasia of prostate (6 sources) Large prostate ; Translations: [Benign prostatic [...] Episodic Other diseases of kidney and ureters (3 sources) Other obstructive and reflux uropathy; Translations: [...] sources) Obesity; Translations: [Obesity, unspecified] Chronic Other nutritional; endocrine; and metabolic disorders (2 sources) Body mass index (BMI) 35.0-35.9, adult; Translations: [Body mass index (BMI) 35.0-35.9, adult] Onset: 08-28-2023 Chronic Other skin disorders (1 source) Disorder [...] Resolved: 05-01-2023 12-14-2022 Other aftercare (1 source) manager 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 ([id number]) [address] [place] [address] Prostate specific Ag [Mass/V ol]on 07-11-2023 PROSTATIC SPEC ANT 0.66 ng/mL Normal 0.00-4.00 [facility] Comment on above: Result Comment: The method used for this test is Barron [employer] DXI chemiluminescent immunoassay. Values obtained by different assay methods cannot be used interchangeably. Performed By: #### 2 857-1 #### [facility] ([id number]) [address], [address] [place] [address] US RETROPERITONEAL COMPLETEo n 07-11-2023 US RETROPERITONEAL [...] Wynn MD on 07/11/2023 7:40 PM Normal [facility] COMPREHENSIVE METABOLIC PANE Feng 05-01-2023 Albumin [Mass/Vol] 4.1 g/dL Normal 3.2-5.3 [facility] Comment on above: Performed By: #### Haley ARENAS 36313-5 #### [facility] ([id number]) [address], [address] [place] [address] ALP [Catalytic activity/Vol] 75 U/L Normal 39-130 [facility] Comment on above: Performed By: #### Haley ARENAS 38219-2 #### [facility] ([id number]) [address], [address] [place] [address] ALT [Catalytic activity/Vol] 21 U/L Normal 0-40 [facility] Comment on above: Performed By: #### Haley ARENAS 14977-2 #### [facility] ([id number]) [address], [address] [place] [address] Anion gap [Moles/Vol] 6 mmol/L Normal 5-15 [facility] Comment on above: Performed By: #### Haley ARENAS 86982-8 #### [facility] ([id number]) [address], [address] [place] [address] AST [Catalytic activity/Vol] 13 U/L Normal 0-41 [facility] Comment on above: Performed By: #### Haley ARENAS 23896-9 #### [facility] ([id number]) [address], [address] [place] [address] Bilirubin [Mass/Vol] 0.4 mg/dL Normal 0.3-1.2 [facility] Comment on above: Performed By: #### Haley ARENAS 17466-1 #### [facility] ([id number]) [address], [address] [place] [address] Calcium [Mass/Vol] 9.5 mg/dL Normal 8.5-10.5 [facility] Comment on above: Performed By: #### Haley ARENAS, 73307-7 #### [facility] ([id number]) [address], [address] [place] [address] Chloride [Moles/Vol] 106 mmol/L Normal 98-109 [facility] Comment on above: Performed By: #### Haley ARENAS, 56993-3 #### [facility] ([id number]) [address], [address] [place] [address] CO2 [Moles/Vol] 30 mmol/L Normal 22-32 [facility] Comment on above: Performed By: #### Haley ARENAS, 78157-4 #### [facility] ([id number]) [address], [address] [place] [address] Creatinine [Mass/Vol] 0.96 mg/dL Normal 0.60-1.30 [facility] Comment on above: Result Comment: METH OD TRACEABLE TO IDMS STANDARD Performed By: #### Haley ARENAS, 51619-2 #### [facility] ([id number]) [address], [address] [place] [address] eGFR (CKD-EPI) NON-RACE DEPENDENT >90 Normal >59 [facility] Comment on above: Result Comment: Reported eGFR is based on the CKD-EPI 1 equation that does not use a race coefficient. Performed By: #### Haley ARENAS, 98636-5 #### [facility] ([id number]) [address], [address] [place] [address] Glucose [Mass/Vol] 95 mg/dL Normal 65-99 [facility] Comment on above: Performed By: #### Haley ARENAS, 14895-4 #### [facility] ([id number]) [address], [address] [place] [address] Potassium [Moles/Vol] 4.6 mmol/L Normal 3.5-5.0 [facility] Comment on above: Performed By: #### Haley ARENAS, 40142-4 #### [facility] ([id number]) [address], [address] [place] [address] Protein [Mass/Vol] 7.0 g/dL Normal 6.0-8.0 [facility] Comment on above: Performed By: #### Haley ARENAS, 29819-2 #### [facility] ([id number]) [address], [address] [place] [address] Sodium [Moles/Vol] 142 mmol/L Normal 134-146 [facility] Comment on above: Performed By: #### Haley ARENAS, 28256-2 #### [facility] ([id number]) [address], [address] [place] [address] Urea nitrogen [Mass/Vol] 20 mg/dL Normal 5-23 [facility] Comment on above: Performed By: #### Haley ARENAS, 48777-9 #### [facility] ([id number]) [address], [address] [place] [address] Comprehensive metabolic pane feng 05-01-2023 Albumin [Mass/Vol] 4.1 g/dL 3.2 - 5.3 g/dL [facility] ALP [Catalytic activity/Vol] 75 U/L 39 - 130 U/L [facility] ALT No additional P-5'-P [Catalytic activity/Vol] 21 U/L 0 - 40 U/L [facility] Anion gap [Moles/Vol] 6 mmol/L 5 - 15 mmol/L [facility] AST [Catalytic activity/Vol] 13 U/L 0 - 41 U/L [facility] Bilirubin [Mass/Vol] 0.4 mg/dL 0.3 - 1 .2 mg/dL [facility] Calcium [Mass/Vol] 9.5 mg/dL 8.5 - 10. 5 mg/dL [facility] Chloride [Moles/Vol] 106 mmol/L 98 - 10 9 mmol/L [facility] CO2 [Moles/Vol] 30 mmol/L 22 - 32 mmol/L [facility] Creatinine [Mass/Vol] 0.96 mg/dL 0.60 - 1.30 mg/dL [facility] Comment on above: METHOD TRACEABLE TO [facility] STANDARD eGFR (CKD-EPI)non-race dependent - PINF [facility] Comment on above: Reported eGFR is based on the CKD-EPI 2020 equation that does not use a race coefficient. Glucose [Mass/Vol] 95 mg/dL 65 - 99 mg/dL [facility] Potassium [Moles/Vol] 4.6 mmol/L 3.5 - 5.0 mmol/L [facility] Protein [Mass/Vol] 7.0 g/dL 6.0 - 8.0 g/dL [facility] Sodium [Moles/Vol] 142 mmol/L 134 - 146 mmol/L [facility] Urea nitrogen [Mass/Vol] 20 mg/dL 5 - 23 mg/dL [facility] Lipid 1996 panelon 4 Cholesterol [Mass/Vol] 97 mg/dL Low 150 - 200 mg/dL [facility] Cholesterol in HDL [Mass/Vol] 40 mg/dL 39 - PINF mg/dL [facility] Comment on above: HDL <40 mg/dL - High Risk HDL > or = 40mg/dL- Desirable HDL >60 mg/dL - Negative Risk Cholesterol in LDL [Mass/Vol] 41 mg/dL NINF - 130 mg/dL [facility] Comment on above: LDL <100 mg/dL - Desirable LDL >160 mg/dL - High Risk Cholesterol in VLDL [Mass/Vol] 16 mg/dL 0 - 30 mg/dL [facility] Cholesterol.total/Ch olesterol in HDL [Mass ratio] 2.4 {ratio} 1.0 - 5.0 [facility] Interpretation and review of laboratory results Abnormal [facility] Triglyceride [Mass/Vol] 80 mg/dL 27 - 150 mg/dL [facility] Cholesterol [Mass/Vol] 97 mg/dL Low 150-200 [facility] Comment on above: Performed By: #### Haley ARENAS, 43662-3 #### [facility] ([id number]) [address], [address] [place] [address] Cholesterol in HDL [Mass/Vol] 40 mg/dL Normal >39 [facility] Comment on above: Result Comment: HDL <40 mg/dL - High Risk HDL > or = 40mg/dL- Desirable HDL >60 mg/dL - Negative Risk Performed By: #### Haley ARENAS, 14610-6 #### [facility] ([id number]) [address], [address] [place] [address] Cholesterol in LDL [Mass/Vol] 41 mg/dL Normal <130 [facility] Comment on above: Result Comment: LDL <100 mg/dL - Desirable LDL >160 mg/dL - High Risk Performed By: #### Haley ARENAS, 98640-2 #### [facility] ([id number]) [address], [address] [place] [address] Cholesterol in VLDL [Mass/Vol] 16 mg/dL Normal 0-30 [facility] Comment on above: Performed By: #### Haley ARENAS, 03911-2 #### [facility] ([id number]) [address], [address] [place] [address] CHOLESTEROL:HDL 2.4 Normal 1.0-5.0 [facility] Comment on above: Performed By: #### C DAGOBERTO, 26443-7 #### [facility] ([id number]) [address], [address] [place] [address] Triglyceride [Mass/Vol] 80 mg/dL Normal 27-150 [facility] Comment on above: Performed By: #### C DAGOBERTO, 87638-0 #### [facility] ([id number]) [address], [address] [place] [address] No Panel Informationon 05-01 [facility] Tobacco Screening.on 023 Adult depression screening assessment No [facility] 250 DO Work Phone: Fall risk assessment b) One or more fall s in the last year [facility] 250 DO Work Phone: Tobacco use status CPHS a) Yes [facility] 250 DO Work Phone: Tobacco Screening. Yes [facility] 250 DO Work Phone: 36on 08-23-2022 36 Left vm to reschedul e us and follow up from 08/17/22 [facility] Telephoneon 08-23-2022 Telephone [phone] Fidencio Doss as 1965 M Date Provider Department Center 08/23/2022 Sanjuana2-PATRIA BRANCH Krupa [facility] No family history on file [facility] XR LSPINE 2_3 VIEWSon 2022 XR [...] by: MICHAEL OROZCO Date: 2022-08-01 08:25 Normal [facility] XR HIPS LUPILLO 3_4V WO PELVISon [...] by: VASILE VITALE Date: 2022-07-31 14:23 Normal [facility] Office Visiton 05-08-2022 Follow-up visit [id number] Fidencio Doss 1965 M Date Provider Department Center 05/08/2022 WINIFRED HOWELL [facility] No family history on file Level of Service:79210 [place] OFFICE/OUTPATIENT NEW LOW MDM 30-44 MINUTES Reason for Visit and Comments: New Patient [632] Normal [facility] BNPon 05-03-2022 Natriuretic peptide B (Bld) [Mass/Vol] 41.0 pg/mL Normal <=900.0 [facility] Comment on above: Performed By: #### H STROPN, LIPA, BNP, CMP ####[facility] [address] [place], [place] [address]SgCheryl Jazzy oPwell CBC AUTO DIFFon 05-03-2022 BASO # 0.1 103/ul Normal 0.0-0.1 [facility] Comment on above: Performed By: #### C BC #### [facility] [address] [place] [address] Dr. Jazzy Powell Basophils/100 WBC (Bld) 0.5 % Normal 0.2-2.0 [facility] Comment on above: Performed By: #### C BC #### [facility] [address] [place] [address] Dr. Jazzy Powell EO # 0.3 103/ul Normal 0.0-0.7 [facility] Comment on above: Performed By: #### C BC #### [facility] [address] [place] [address] Dr. Jazzy Powell Eosinophils/100 WBC (Bld) 1.8 % Normal 0.9-7.0 [facility] Comment on above: Performed By: #### C BC #### [facility] [address] [place] [address] Dr. Jazzy Powell Erythrocyte distribution width (RBC) [Ratio] 13.1 % Normal 11.0-15.0 [facility] Comment on above: Performed By: #### C BC #### [facility] [address] [place] [address] Dr. Jazzy Powell Hematocrit (Bld) [Volume fraction] 40.7 % Critically low 42.0-54.0 [facility] Comment on above: Performed By: #### C BC #### [facility] [address] [place] [address] Dr. Jazzy Powell Hemoglobin (Bld) [Mass/Vol] 13.7 g/dL Critically low 14.0-18.0 [facility] Comment on above: Performed By: #### C BC #### [facility] [address] [place] [address] Dr. Jazzy Powell IG # 0.09 10e3/ul Critically high 0.00-0.03 [facility] Comment on above: Performed By: #### C BC #### [facility] [address] [place] [address] Dr. Jazzy Powell IG % 0.5 % Normal 0.0-0.5 [facility] Comment on above: Performed By: #### C BC #### [facility] [address] [address] [address] Jazzy Powell LYMPH # 4.7 103/ul Critically high 1.2-3.8 [facility] Comment on above: Performed By: #### C BC #### [facility] [address] [place] [address] Dr. Jazzy Powell Lymphocytes/100 WBC (Bld) 24.5 % Normal 20.5-60.0 [facility] Comment on above: Performed By: #### C BC #### [facility] [address] [place] [address] Dr. Jazzy Powell MANUAL DIFF REQ NO Normal [facility] Comment on above: Performed By: #### C BC #### [facility] [address] [place] [address] Dr. Jazzy Powell MCH (RBC) [Entitic mass] 30.8 pg Normal 25.9-34.0 [facility] Comment on above: Performed By: #### C BC #### [facility] [address] [place] [address] Dr. Jazzy Powell MCHC (RBC) [Mass/Vol] 33.7 g/dL Normal 29.9-35.2 [facility] Comment on above: Performed By: #### C BC #### [facility] [address] [place] [address] Dr. Jazzy Powell MCV (RBC) [Entitic vol] 91.5 fL Normal 80.0-94.0 [facility] Comment on above: Performed By: #### C BC #### [facility] [address] [place] [address] Dr. Jazzy Powell MONO # 2.5 103/ul Critically high 0.3-0.8 [facility] Comment on above: Performed By: #### C BC #### [facility] [address] [place] [address] Dr. Jazzy Powell Monocytes/100 WBC (Bld) 12.8 % Critically high 1.7-12.0 [facility] Comment on above: Performed By: #### C BC #### [facility] [address] [place] [address] Dr. Jazzy Powell NEUT # 11.6 103/ul Critically high 1.4-6.5 [facility] Comment on above: Performed By: #### C BC #### [facility] [address] [address] [address] Jazzy Powell Neutrophils/100 WBC (Bld) 59.9 % Normal 43.0-75.0 [facility] Comment on above: Performed By: #### C BC #### [facility] [address] [address] [address] Jazzy Powell Platelet mean volume (Bld) [Entitic vol] 8.4 fL Critically low 9.5-13.5 [facility] Comment on above: Performed By: #### C BC #### [facility] [address] [place] [address] Dr. Jazzy Powell PLT 332 103/ul Normal 150-450 [facility] Comment on above: Performed By: #### C BC #### [facility] [address] [place] [address] Dr. Jazzy Powell RBC 4.45 106/ul Critically low 4.70-6.10 [facility] Comment on above: Performed By: #### C BC #### [facility] [address] [place] [address] Dr. Jazzy Powell WBC 19.3 103/ul Critically high 4.0-11.0 [facility] Comment on above: Performed By: #### C BC #### [facility] [address] [place] [address] Dr. Jazzy Powell CTA CHEST WO W [...] MACEDO Date: 2022-05-03 20:24 Normal [facility] LIPASEon 05-03-2022 Lipase [Catalytic activity/Vol] 126.0 U/L Normal 73.0-393.0 [facility] Comment on above: Performed By: #### H STROPN, LIPA, BNP, CMP ####[facility] [address] [address]Dr. Jazzy Powell PROF 14(COMP METB)on 023 Albumin [Mass/Vol] 3.5 g/dL Normal 3.4-5.0 [facility] Comment on above: Performed By: #### H STROPN, LIPA, BNP, CMP ####[facility] [address] [address]DrCheryl Powell Albumin/Globulin [Mass ratio] 1.0 {ratio} Normal [facility] Comment on above: Performed By: #### H STROPN, LIPA, BNP, CMP ####[facility] [address] [id number]. Jazzy Powell ALP [Catalytic activity/Vol] 101 U/L Normal 46-116 [facility] Comment on above: Performed By: #### H STROPN, LIPA, BNP, CMP ####[facility] [address] [id number]. Jazzy Powell ALT [Catalytic activity/Vol] 27 U/L Normal 16-63 [facility] Comment on above: Performed By: #### H STROPN, LIPA, BNP, CMP ####[facility] [address] [address]Dr. Jazzy Powell Anion gap [Moles/Vol] 6.1 mmol/L Normal [facility] Comment on above: Performed By: #### H STROPN, LIPA, BNP, CMP ####[facility] [address] [address]Dr. Jazzy Powell AST [Catalytic activity/Vol] 15 U/L Normal 15-37 [facility] Comment on above: Performed By: #### H STROPN, LIPA, BNP, CMP ####[facility] [address] [place], [place] [address]Dr. Jazzy Powell Bilirubin [Mass/Vol] 0.3 mg/dL Normal 0.2-1.0 [facility] Comment on above: Performed By: #### H STROPN, LIPA, BNP, CMP ####[facility] [address] [place], [place] [address]Dr. Jazzy Powell Calcium [Mass/Vol] 8.9 mg/dL Normal 8.5-10.1 [facility] Comment on above: Performed By: #### H STROPN, LIPA, BNP, CMP ####[facility] [address] [address]Dr. Jazzy Powell Chloride [Moles/Vol] 104 mmol/L Normal 98-107 [facility] Comment on above: Performed By: #### H STROPN, LIPA, BNP, CMP ####[facility] [address] [address]Dr. Jazzy Powell CO2 [Moles/Vol] 29.4 mmol/L Normal 21.0-32.0 [facility] Comment on above: Performed By: #### H STROPN, LIPA, BNP, CMP ####[facility] [address] [address]Dr. Jazzy Powell Creatinine [Mass/Vol] 0.85 mg/dL Normal 0.70-1.30 [facility] Comment on above: Performed By: #### H STROPN, LIPA, BNP, CMP ####[facility] [address] [address]Dr. Jazzy Powell EGFR-AF BOTSWANAN >60 Normal >=60 [facility] Comment on above: Performed By: #### H STROPN, LIPA, BNP, CMP ####[facility] [address] [address]Dr. Jazzy Powell EGFR-NON AF BOTSWANAN >60 Normal >=60 [facility] Comment on above: Performed By: #### H STROPN, LIPA, BNP, CMP ####[facility] [address] [place] [address]Dr. Jazzy Powell Globulin (S) [Mass/Vol] 3.4 g/dL Normal [facility] Comment on above: Performed By: #### H STROPN, LIPA, BNP, CMP ####[facility] [address] [place] [address]Dr. Jazzy Powell Glucose [Mass/Vol] 95 mg/dL Normal 74-106 [facility] Comment on above: Performed By: #### H STROPN, LIPA, BNP, CMP ####[facility] [address] [place] [address]Dr. Jazzy Powell Potassium [Moles/Vol] 3.5 mmol/L Normal 3.5-5.1 [facility] Comment on above: Performed By: #### H STROPN, LIPA, BNP, CMP ####[facility] [address] [place] [address]Dr. Jazzy Powell Protein [Mass/Vol] 6.9 g/dL Normal 6.4-8.2 [facility] Comment on above: Performed By: #### H STROPN, LIPA, BNP, CMP ####[facility] Q[address] [place] [address]Dr. Jazzy Powell Sodium [Moles/Vol] 136 mmol/L Normal 136-145 [facility] Comment on above: Performed By: #### H STROPN, LIPA, BNP, CMP ####[facility] [address] [place] [address]Dr. Jazzy Powell Urea nitrogen [Mass/Vol] 17.0 mg/dL Normal 7.0-18.0 [facility] Comment on above: Performed By: #### H STROPN, LIPA, BNP, CMP ####[facility] [address]pm[address] [place] [address]Dr. Jazzy Powell Urea nitrogen/Creatinine [Mass ratio] 20.0 mg/mg Normal [facility] Comment on above: Performed By: #### H STROPN, LIPA, BNP, CMP ####[facility] [address] [place] [address]Dr. Jazzy Powell PROTIMEon 05-03-2022 INR Coag (PPP) [Relative time] 0.95 {INR} Normal [facility] Comment on above: Performed By: #### P TT, PT ####[facility] [address] [place], [place] [address]Dr. Jazzy Powell INR GUIDELINES SEE BELOW Normal [facility] Comment on above: Result Comment: ANNEMARIE RED INR: 2.0 - 3.0 CONDITIONS NOT LISTED BELOW 2.5 - 3.5 FOR PROSTHETIC HEART VALVE REPLACEMENT 2.5 - 3.5 RECURRENT THROMBOSIS Performed By: #### P TT, PT ####[facility] Ab[address] [place], [place] [address]Dr. Jazzy Powell PT Coag (PPP) [Time] 10.1 s Normal 9.0-11.6 [facility] Comment on above: Performed By: #### P TT, PT ####[facility] [address] [place], [place] [address]Dr. Jazzy Powell PTTon 05-03-2022 aPTT Coag (Bld) [Time] 28.7 s Normal 22.3-36.2 [facility] Comment on above: Performed By: #### P TT, PT ####[facility] [address] [place], [place] [address]Dr. Jazzy Powell TROPONIN, HIGH SENSITIVITYon 05-03-2022 HSTROP 5.1 pg/mL Normal 4.0-76.1 [facility] Comment on above: Result Comment: CUT- OFF POINTS HAVE BEEN ESTABLISHED BASED ON THE FOURTH UNIVERSAL DEFINITIONS OF MYOCARDIAL INFARCTION. THE UPPER REFERENCE LIMIT (URL) OF TROPONIN, DEFINED THE 99TH PERCENTILE OF cTnI DISTRIBUTION IN A REFERENCE POPULATION, HAS BEEN CONFIRMED THE DECISION THRESHOLD FOR [place] DIAGNOSIS. Performed By: #### H STROPN, LIPA, BNP, CMP ####[facility] [address] [place], [place] [address]HyDr. Jazzy Powell Covid-19 PCR (CVDTB)on SARS-CoV-2 (COVID-19) RNA ALLIE+probe Ql (Unsp spec) Not detected Normal NOT DETECTED [facility] Comment on above: Result Comment: When [...] for this test is supported by the Addictions Recovery Specialist of Health and Human Service's declaration that [...] used). Performed By: #### C VDTBH #### [facility] [address] [place], [place] [address] Dr. Jazzy Powell MRI FOOT LT WO [...] ligamentous or tendinous injury. Electronically authenticated by: RAJIV PEACOCK Date: 2022-01-01 08:53 Normal [facility] Office Visit (Cardiology)on 10-19-2021 Follow-up visit [...] Weight Tips; Status:Complete - Retrospective Authorization; Done: [id number] Some eating tips that can help you lose weight.; Status:Complete - Retrospective Authorization; Done: 27Mon2853 SocHx: Current every day smoker Tobacco Use Screening; Status:Complete; Done: 10Xez6963 You need to quit smoking.; Status:Complete - Retrospective Authorization; Done: [id number] You need to stop smoking. Though it is not easy, more than half of all adult smokers have quit. We encourage you to write down all the reasons you should quit smoking and set a quit date for yourself. Ask us how we can help. You may also call 8-693-XIBXNOW for free resources and assistance.; Status:Complete - Retrospective Authorization; Done: 90Esc1628 Unlinked Stop: Brilinta 90 MG Oral Tablet [...] negative for complaint. Vitals Vital Signs Recorded: [id number] 02:25PM Heart Rate74, L Radial Kcitmszq505, LUE, Sitting Cdlajcbkf90, LUE, Sitting Height6 ft 2 in Huibsn873 lb BMI Wdkxttbbse31.64 kg (more content not included)... Normal Apna[facility]aisa Tobacco Screening.on 022 Fall risk assessment a) No falls within the last year [facility] [employer] y 250 DO Work Phone: Tobacco use status [facility] a) Yes [facility] [employer] y 250 DO Work Phone: Tobacco Screening. Yes [facility] [employer] y 250 DO Work Phone: CNPNon [facility] ([id number]) 1965 M Date Time Provider Department 07/04/21 [...] Encounter Status:Closed by [place]BEL [place] on 07/04/21 [facility] CNOVon 06-06-2021 CNOV Office Visit (SPNSMN ) ASHOK DOSS ([id number]) 1965 M Date Time Provider Department 06/06/21 [...] lumbar laminectomy approx. 20 years ago in [place]. Did well post-op with resolution of sciatica. Has had chronic low back pain. Over the last 6 months he describes episodes of his legs feeling like rubber . Would occur randomly. Over the last 3 months he's started to experience this in the arms as well. 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 Normal [facility] Office Visit (Cardiology)on 05-26-2021 Follow-up [...] we can help. You may also call 2-717-LPKMNOW for free resources and assistance.; Status:Complete - Retrospective Authorization; Done: 26May2021 Tobacco Use Screening; Status:Complete; Done: 26May2021 Patient Instructions By signing my name below, I, Silvana Rodriguez LPN ,[place]anda, attest that this documentation has [...] wall myocardial infarction. He was taken to [place] where he had a coronary intervention and [...] have been (more content not included)... Normal Apna[facility]ais[facility] Tobacco Screening.on 022 Adult depression screening assessment No [facility] [employer] 600 DO Work Phone: Heart Rate Regular [facility] [employer] 600 DO Work Phone: Tobacco use status [facility] a) Yes [facility] [employer] 600 DO Work Phone: Tobacco Screening. Yes [facility] 600 DO Work Phone: Christian 05-17-2021 [facility] Telephone (NI) ASHOK DOSS ([id number]) 1965 M Date Time Provider Department 05/17/21 ASHIA BERMEO During your visit today, we recorded the following information about you: Liset Lazcano Fermentation Manager 05/17/2021 12:43 PM Addendum .Received the following record(s) via fax. -XR Foreign Body Eye, MRI Cspine wo Date 05/05/21 Record(s) scanned into pt's chart. Ashia Bermeo APRN.FOREST LAW AND POLICY PROFESSOR 05/17/2021 3:18 PM Signed Awaiting CD copy of imaging. Ashia Bermeo APRN.FOREST LAW AND POLICY PROFESSOR Allergies As of Date: 05/17/2021 (No Known [...] Encounter Status:Closed by ASHIA BERMEO on 05/17/21 [facility] Christian 05-04-2021 [facility] Telephone (NIQ) DOSSASHKO MONROY ([id number]) 1965 M Date Time Provider Department 05/04/21 ASHIA BERMEO During your visit today, we recorded the following information about you: Liset Lazcano Fermentation Manager 05/04/2021 11:44 AM Signed Lulu from [employer] requesting an Orbit order. Pt is scheduled tomorrow for MRI. Fax - [facility] - [phone] Catherine Stuart RN 05/04/2021 12:16 PM Signed Neuro SPINE CARE COORDINATION QUICK NOTE MRI Cervical order faxed to provided number. Catherine Stuart RN Special Education Director [facility] 05/04/2021 1:41 PM Signed XR Eye [...] Encounter Status:Closed by CATHERINE STUART on 05/04/21 [facility] CNOVon 04-24-2021 CNOV Office Visit (SPNSMN ) ASHOK DOSS ([id number]) 1965 M Date Time Provider Department 04/24/21 2:15 PM ASHIA BERMEO SPNSMN During your visit today, we recorded the following information about you: Pulse Respiration Blood pressure Weight 79/minute 18/minute 139/68 118.7 kg Height 1.88 m Ashia Bermeo APRN.FOREST LAW AND POLICY PROFESSOR 04/24/2021 3:14 PM Signed SPINE SURGERY OUTPATIENT [...] lumbar laminectomy approx. 20 years ago in [place]. Did well post-op with resolution of sciatica. [...] Distances ANTIPLATELET OR ANTICOAGULATION STATUS: Yes Previous [place] PREVIOUS SPINAL SURGERY: SURGERY #1: L5-S1 Laminectomy in [place] approx. 20 years ago There is no [...] vision or hearing. CARDIOVASCULAR: Hypertension and previous [place] RESPIRATORY: Denies SOB, sputum production, and hemoptysis. [...] PHQ-9 04/17/2021 (more content not included)... Normal [facility] Office Visit (Cardiology)on 12-27-2020 Follow-up [...] year old male that presents to the [facility] with his for follow-up on testing. 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 Stacy and was added to my schedule today. He has a recent history of an [place] with cardiac catheterization 11/18/2020 with PCI and [...] see if cardiac rehabilitation is possible at [facility] that is closest to his home. [...] 1. CAD; with acute inferior ST elevation NJ requiring cardiac catheterization 11/18/2020 with PCI and [...] itching CARDIOVASCULAR:N (more content not included)... Normal [facility] Tobacco Screening.on 021 Fall risk assessment a) No falls within the last year [place] [address] DO Work Phone: Tobacco use status [facility] a) Yes [place] [address] DO Work Phone: Tobacco Screening. Yes [place] [address] DO Work Phone: Cardiac Stress Teston 2020 Cardiac Stress Test [facility] [address], [address] [place] [address] Exercise Stress Test Patient Name: ASHOK DOSS Ordering Physician: [id number] Rachel Stacy MD Study Date: 12/23/2020 Reading Physician: [id number] Antony Pena MD, [facility] MRN/PID: [id number] Supervising Physician: Accession/Order#: [id number] Referring Physician: [id number] RACHEL STACY Date of : 1965 PCP: Gender: M Fellow: Height: 187.96 cm Nurse: Frida Dewey RN Weight: 119.75 kg Formulator Compounder: N/A BSA: 2.45 m2 Technologist: BMI: 33.90 kg/m2 Additional Staff: Age: 55 years cc report to: Patient Location: [facility] cc report to: [id number] Rachel Stacy MD Study Type: Cardiac Stress Test Diagnosis/ICD: I25.10-Atherosclerotic heart disease; I21.19-ST elevation (STEMI) myocardial infarction involving other coronary artery of inferior wall Indication: CAD, INF. [place] Procedure/CPT: Stress Test Interpretation-74558; Stress Test Supervision-06566 Falls Risk: Patient Performance: The patient exercised [...] The inadequate level of stress was achieved. [id number] Antony Pena MD, FACC Electronically signed on 12/23/2020 at 5:13:30 PM Final Normal [facility] Cardiac Stress Test [facility] [address] [place] Work Phone: Echocardiogramon 12-23-2020 Echocardiography [facility] [address], [address], [place], [place] [address] TRANSTHORACIC ECHOCARDIOGRAM REPORT Patient Name: ASHOK DOSS Reading Physician: [id number] Antony Pena MD, FAC Study Date: 12/23/2020 Referring Physician: [id number] RACHEL STACY MRN/PID: [id number] PCP: Colten Parra MD Accession/Order#: [id number] Department Location: [facility] Date of : 1965 Fellow: Gender: M Nurse: Admit Date: Formulator Compounder: Latanya Yadav RDCS, RT(R), RDMS, RVT Height: 187.96 cm CC Report to: Weight: 119.75 kg Study Type: Echocardiogram BSA: 2.45 m2 Diagnosis/ICD: I25.10-Atherosclerotic heart disease of [place] coronary artery without angina pectoris; I21.19-ST elevation (STEMI) myocardial infarction involving other coronary artery of inferior wall Indication: HTN PTCA Procedure/CPT: Echo Complete w Full Doppler-[id number] Study Detail: The following Echo studies were [...] 0.8 m/s (0.6-0.9m/s) PV Max P.5 mmHg [id number] Antony Pena MD, FACC Electronically signed on 12/23/2020 at 11:56:24 AM Final Normal [facility] Echocardiography Please click on the link to view the study images Normal -[facility] [address] [place] Work Phone: Discharge Planning Cidn2im 0 11-20-2020 Discharge Planning Note2 Discharge Planning: Discharge Barriersnone Planned Dispositionhome [facility] PCP/Next Provider Follow Up Scheduledyes Anticipated Discharge [id number] Discharge Planning 11/20/20 tcc NOTE: ROUNDED WITH NURSING, PT ADMITTED FOR NSTEMI, STARTED ON BRILINTA. ADDED TUBE CLEANER REFERRAL TO FOLLOW OUTPT . PT TO BE DISCHARGED WITH PRESCRIPTION FOR BRILINTA. DISCOUNT BRILINTA CARD PROVIDED TO NURSING WITH [facility] . PT TO BE DISCHARGED HOME ON THIS DATE. NO FURTHER NEEDS IDENTIFIED. NURSING AM-PAC 24, PLAN IS HOME WITH FAMILY. ANJELICA RUSS RN TCC Assessment: Discharge Planning Assessment [id number]-1347 Discharge Documentation: Discharge/Transfer Date/Ipnn10-Jxe-1132 14:21 Discharged Accompanied Byspouse Discharge Modeambulatory Transportation Methodprivate car Valuables/Medications/B elongings Returnedyes Final DispositionHome Electronic Signatures: Anjelica Russ (HEARING AND SPEECH ASSISTANT) (Signed 20-Nov-2020 13:02) Authored: Discharge Planning, Assessment Madhavi Moroe (RN) (Signed 20-Nov-2020 14:21) Authored: Discharge Planning, Discharge Documentation Last Updated: 20-Nov-2020 14:21 by Madhavi Moore (RN) Normal [facility] Discharge [id number] 021 Discharge Profile2 Discharge Orders: Anticipated Discharge Date: Anticipated Discharge [id number] Anticipated Discharge Time12:18 Problem List: Additional Dx: [...] hour away, and will be seeking a automobile body repair chief closer to home, but will be seen at [facility] with me within 1 week to go [...] Physician/Dept/ServiceP nacho call Dr. Stacy's office at [phone], patient should be seen within the next week. Call to Schedule in1 week Electronic Signatures: Rachel Stacy) (Signed 20-Nov-2020 12:27) Authored: Discharge Orders, Hospital Course (Home Care/Gold Form), Provider FINAL REVIEW of Orders, Appointments, Gold Form - Electrical/Instrument Technician Summary Last Updated: 20-Nov-2020 12:27 by Rachel Stacy) [facility] Order Reconciliationon 11-20 Order Reconciliation [...] patch TransDermal Every 24 HoursNotes from Pharmacy: [facility] 18-Nov-2020 23:39 nicotine 21 mg/24 hr transdermal [...] tab(s) orally 2 times a day Normal [facility] APTTon 11-19-2020 APTT Canceled Normal [facility] Comment on above: Order Comment: TEST APTT WAS CANCELLED, 11/19/2020 03:59 DUPLICATE ORDER. Result Comment: THE APTT IS NO LONGER USED FOR MONITORING UNFRACTIONATED HEPARIN THERAPY. FOR MONITORING HEPARIN THERAPY, USE THE HEPARIN ASSAY. Performed By: #### A PTT ####[facility] [address] [place], [place] [id number] aPTT Coag (Bld) [Time] 28 s Normal 25 - 35 [facility] Comment on above: Result Comment: THE APTT IS NO LONGER USED FOR MONITORING UNFRACTIONATED HEPARIN THERAPY. FOR MONITORING HEPARIN THERAPY, USE THE HEPARIN ASSAY. Performed By: #### A PTT #### [facility] [address] [place], [place] [id number] BASIC METABOLIC PANELon 11-02 Anion gap [Moles/Vol] 12 mmol/L Normal 10 - 20 [facility] Comment on above: Performed By: #### B MP #### [address] [id number] Calcium [Mass/Vol] 8.4 mg/dL Low 8.6 - 10.3 [facility] Comment on above: Performed By: #### B MP #### [address] [id number] Chloride [Moles/Vol] 109 mmol/L High 98 - 107 [facility] Comment on above: Performed By: #### B MP #### [address] [id number] Creatinine [Mass/Vol] 0.83 mg/dL Normal 0.50 - 1.30 [facility] Comment on above: Performed By: #### B MP #### [address] [id number] GFR- AM. >60 Normal >60 [facility] Comment on above: Result Comment: CALC ULATIONS OF ESTIMATED GFR ARE PERFORMED USING THE MDRD STUDY EQUATION FOR THE IDMS-TRACEABLE CREATININE METHODS. CLIN CHEM 2007;53:766-72 Performed By: #### B MP #### [address] [id number] GFR-NON AM. >60 Normal >60 [facility] Comment on above: Performed By: #### B MP #### [address] [id number] Glucose [Mass/Vol] 115 mg/dL High 74 - 99 [facility] Comment on above: Performed By: #### B MP #### [address] [id number] HCO3 (Bld) [Moles/Vol] 23 mmol/L Normal 21 - 32 [facility] Comment on above: Performed By: #### B MP #### [address] [id number] Potassium [Moles/Vol] 3.8 mmol/L Normal 3.5 - 5.3 [facility] Comment on above: Performed By: #### B MP #### [facility] [address] [place], [place] [id number] Sodium [Moles/Vol] 140 mmol/L Normal 136 - 145 [facility] Comment on above: Performed By: #### B MP #### [facility] [address] [place], [place] [id number] Urea nitrogen [Mass/Vol] 20 mg/dL Normal 6 - 23 [facility] Comment on above: Performed By: #### B MP #### [facility] [address] [place], [place] [id number] CBCon 11-19-2020 Erythrocyte distribution width (RBC) [Ratio] 13.3 % Normal 11.5 - 14.5 [facility] Comment on above: Performed By: #### C BC ####[address] [id number] Hematocrit (Bld) [Volume fraction] 41.2 % Normal 41.0 - 52.0 [facility] Comment on above: Performed By: #### C BC ####[address] [id number] Hemoglobin (Bld) [Mass/Vol] 13.5 g/dL Normal 13.5 - 17.5 [facility] Comment on above: Performed By: #### C BC ####[address] [id number] MCHC (RBC) [Mass/Vol] 32.8 g/dL Normal 32.0 - 36.0 [facility] Comment on above: Performed By: #### C BC ####[address] [id number] MCV (RBC) [Entitic vol] 93 fL Normal 80 - 100 [facility] Comment on above: Performed By: #### C BC ####[address] [id number] Platelets (Bld) [#/Vol] 333 10*3/uL Normal 150 - 450 [facility] Comment on above: Performed By: #### C BC ####[facility] [place], [place] [id number] RBC 4.42 x10E12/L Low 4.50 - 5.90 [facility] Comment on above: Performed By: #### C BC ####[facility] [place], [place] [id number] WBC (Bld) [#/Vol] 22.9 10*3/uL High 4.4 - 11.3 [facility] Comment on above: Performed By: #### C BC ####[facility] [address] [place], [place] [id number] Consult-Critical Careon 11-02 Consult-Critical Care Service: Service: Critical Care Consult: Consult requested by (Attending Name): Rachel Stacy Reason: ICU MANAGEMENT History of Present Illness: Admission Reason: Inferior Wall STEMI HPI: ASHOK DOSS is a 55 year old Male Pmhx HTN and active smoker Presented to [facility] ED via [place] d/t Chest pain. Described it as crushing mid sternal pain with radiation to the Left arm. He went to [facility] Last week d/t CP and had respiratory complaints and was sent home and was told he had bronchitis and CP could be 2/2 to. He states he had CP before but never like this, he associated complaints with diaphoresis, presyncopal x2 and weakness. No history of [place] before but he is an active pack [...] ankle surgery, carpal tunnel Family history: Father [place], CHF Mother: CAD Social History: Pack a [...] prophylaxis Heme/ID: Elevated WBC 2/2 reactive to NJ SCDs for DVT prophylaxis, Enoxaparin -pharmacological DVT measures -hold for now Msk/Integumentaty PT/OT Social/family/dispo: admit to ICU Code; Full *Plan discussed at length with bedside RN and Dr. Zaid Posey MD Consult Status: Consult Order ID: [id number] Attestation: Note Completion: I am a: Advanced Practice Provider Attending Only - Shared Visit with Advanced Practice ProviderThis is a shared visit. I have revi (more content not included)... Normal [facility] Daily Progress Note - Critic al Care-SICUon [...] 150-170mmhg. Objective Data: Objective Information T PRBPSpO2 [id number]/7799% Date/Time11/19 1:30918 17:41918 17:41918 17:41918 17:41 Range(37.1C - 37.1C [...] None ---- Intake and Output ----- Mn/Dy/[facility] Nov 19, 2020 6:00 [id number] The Intake and Output Totals for the last 24 hours are: IntakeOutmimbres memorial hospitalNet [id number] Date: Weight/Scale Type: 18-Nov-2020 23:35738.7 kg Physical Exam by System: Neurological: alert [...] the bedside L3 Electronic Signatures: Leia Stearns (MONTESSORI LEAD TEACHER-FOREST LAW AND POLICY PROFESSOR) (Signed 19-Nov-2020 18:30) Authored: Service, Subjective Data, Objective Data, Assessment and Plan Ramadugu, José Miguel (MD) (Signed 19-Nov-2020 22:22) Authored: Note Completion Last Updated: 19-Nov-2020 22:22 by José Miguel Posey) [facility] Daily Progress Note-Cardiolo gayle 11-19-2020 [...] 2. Objective Data: Objective Information: T PRBPSpO2 [id number]/8297% Date/Time11/19 1: 13: 13: 13: 13:30 Range(37.1C [...] ----- Mn/Dy/Year TimeIntakeOutputNet Nov 19, 2020 6:00 [id number] The Intake and Output Totals for the last 24 hours are: IntakeOutmimbres memorial hospitalNet [id number] Recent Lab Results: Results: CBC: 11/19/2020 05:23 [...] Updated: 19-Nov-2020 17:17 by Rachel Stacy) Normal [facility] HEPARIN ASSAY,UFHon 11-20-19 21 HEPARIN ASSAY,UFH 0.2 IU/mL Normal [facility] Comment on above: Result Comment: The therapeutic reference range for UFH may be either 0.3-0.6 IU/mL or 0.3-0.7 IU/mL based on the clinical setting for anticoagulant therapy and the associated nomogram used. For heparin dosing guidelines based on clinical scenario and Heparin Assay results, please refer to local Pharmacy and the [facility] Guidelines for Anticoagulation therapy available on the [facility] intranet at: [email or web address]/Pages/[email or web address]_Guid elines_for_Anticoagu.aspx Performed By: #### T ROP2 #### [address] [id number] HEPARIN ASSAY,UFH 0.2 IU/mL Normal [facility] Comment on above: Result Comment: The therapeutic reference range for UFH may be either 0.3-0.6 IU/mL or 0.3-0.7 IU/mL based on the clinical setting for anticoagulant therapy and the associated nomogram used. For heparin dosing guidelines based on clinical scenario and Heparin Assay results, please refer to local Pharmacy and the [facility] Guidelines for Anticoagulation therapy available on the [facility] intranet at: [email or web address]/Pages/[facility]_Guid elines_for_Anticoagu.aspx Performed By: #### T ROP2 #### [address] [id number] HEPARIN ASSAY,UFH <0.1 Normal [facility] Comment on above: Result Comment: The therapeutic reference range for UFH may be either 0.3-0.6 IU/mL or 0.3-0.7 IU/mL based on the clinical setting for anticoagulant therapy and the associated nomogram used. For heparin dosing guidelines based on clinical scenario and Heparin Assay results, please refer to local Pharmacy and the [facility] Guidelines for Anticoagulation therapy available on the [facility] intranet at: [email or web address] Performed By: #### T ROP2 #### [address] [id number] MAGNESIUMon 11-19-2020 Magnesium [Mass/Vol] 1.80 mg/dL Normal 1.60 - 2.40 [facility] Comment on above: Performed By: #### T ROP2 #### [address] [id number] Measurementson 11-19-2020 Measurements Weight: Weight in kg124.7 kilogram(s) Height: Height in cm188 centimeter(s) Egyptian Unit Translation (pounds, inches): Measurement Egyptian Unit Translations (Adult only): Weight in fhy917.916 pound(s) Electronic Signatures: Maggie Muir (STAFF N) (Signed 18-Nov-2020 23:08) Authored: Weight, Height, Egyptian Unit Translation (pounds, inches) Last Updated: 18-Nov-2020 23:08 by Maggie Muir (STAFF N) Normal [facility] PT/INRon 11-19-2020 PROTHROMBIN TIME Canceled Normal [facility] Comment on above: Order Comment: TEST PT/INR WAS CANCELLED, 11/19/2020 01:33 Performed By: #### P TINR #### [address] [id number] PT, INR Canceled Normal [facility] Comment on above: Order Comment: TEST PT/INR WAS CANCELLED, 11/19/2020 01:33 Performed By: #### P TINR #### [address] [id number] PT Coag (PPP) [Time] 12.8 s Normal 10.1 - 13.3 [facility] Comment on above: Performed By: #### P TINR #### [address] [id number] PT, INR 1.1 Normal 0.9 - 1.1 [facility] Comment on above: Performed By: #### P TINR #### [address] [id number] TROPONIN Ion 11-19-2020 Troponin I.cardiac [Mass/Vol] 10.69 ng/mL Critically high 0.00 - 0.03 [facility] Comment on above: Order Comment: Hedy JOSE [...] is performed using different testing methodology at [facility] than at other [facility]. Direct result comparisons should only be made within the same method. Marce- RB to Shelia GOODMAN , 11/19/2020 21:43 Performed By: #### T ROP2 #### [address] [id number] Troponin I.cardiac [Mass/Vol] 12.77 ng/mL Critically high 0.00 - 0.03 [facility] Comment on above: Order Comment: Hedy JOSE [...] is performed using different testing methodology at [facility] than at other [facility]. Direct result comparisons should only be made within the same method. Called- RB to Michaelle Frankie, 11/19/2020 13:36 Performed By: #### T ROP2 #### [address] [id number] Troponin I.cardiac [Mass/Vol] 18.39 ng/mL Critically high 0.00 - 0.03 [facility] Comment on above: Order Comment: Hedy JOSE to Omar Muiridy, 11/19/2020 06:26 Result Comment: [...] is performed using different testing methodology at [facility] than at other [facility]. Direct result comparisons should only be made within the same method. Called- RB to Omar Muir, 11/19/2020 06:26 Performed By: #### T ROP2 #### [address] [id number] TROPONIN I Canceled Normal [facility] Comment on above: Order Comment: Hedy JOSE [...] is performed using different testing methodology at [facility] than at other [facility]. Direct result comparisons should only be made within the same method. Performed By: #### T ROP2 #### [address] [id number] Troponin I.cardiac [Mass/Vol] 17.54 ng/mL Critically high 0.00 - 0.03 [facility] Comment on above: Order Comment: Knott d- [...] is performed using different testing methodology at [facility] than at other [facility]. Direct result comparisons should only be made within the same method. Called- RB to Bandar Baez, 11/19/2020 02:22 Performed By: #### T ROP2 ####[facility] [place], [place] [id number] ACT-LOW RANGEon 11-18-2020 ACT-LOW RANGE 294 SECONDS High 89 - 169 [facility] Comment on above: Result Comment: Note new reference range as of 06/06/2018. Target ACT range will vary based on the patient population, clinical status, and surgical intervention occurring. Performed By: #### T ROP2 #### [facility] [address] [place], [place] [id number] ACT-LOW RANGE 207 SECONDS High 89 - 169 [facility] Comment on above: Result Comment: Note new reference range as of 06/06/2018. Target ACT range will vary based on the patient population, clinical status, and surgical intervention occurring. Performed By: #### T ROP2 #### [facility] [address] [place], [place] [id number] BNPon 11-18-2020 Natriuretic peptide B (Bld) [Mass/Vol] 33 pg/mL Normal 0 - 99 [facility] Comment on above: Result Comment: . <1 00 pg/mL - Heart failure unlikely 100-299 pg/mL - Intermediate probability of acute heart . failure exacerbation. Correlate with clinical . context and patient history. >=300 pg/mL - Heart Failure likely. Correlate with clinical . context and patient history. BNP testing is performed using different testing methodology at [facility] than at other [facility]. Direct result comparisons should only be made within the same method. Performed By: #### B MP #### [facility] [address] [place], [place] [id number] CBCon 11-18-2020 Erythrocyte distribution width (RBC) [Ratio] 13.3 % Normal 11.5 - 14.5 [facility] Comment on above: Performed By: #### C BC ####[address] [place], [place] [id number] Hematocrit (Bld) [Volume fraction] 44.7 % Normal 41.0 - 52.0 [facility] Comment on above: Performed By: #### C BC ####[facility] [place], [place] [id number] Hemoglobin (Bld) [Mass/Vol] 14.6 g/dL Normal 13.5 - 17.5 [facility] Comment on above: Performed By: #### C BC ####[address] [id number] MCHC (RBC) [Mass/Vol] 32.7 g/dL Normal 32.0 - 36.0 [facility] Comment on above: Performed By: #### C BC ####[address] [place], [place] [id number] MCV (RBC) [Entitic vol] 92 fL Normal 80 - 100 [facility] Comment on above: Performed By: #### C BC ####[address] [place], [place] [id number] Platelets (Bld) [#/Vol] 395 10*3/uL Normal 150 - 450 [facility] Comment on above: Performed By: #### C BC ####[facility] [place], [place] [id number] RBC 4.85 x10E12/L Normal 4.50 - 5.90 [facility] Comment on above: Performed By: #### C BC ####[facility] [place], [place] [id number] WBC (Bld) [#/Vol] 21.9 10*3/uL High 4.4 - 11.3 [facility] Comment on above: Performed By: #### C BC ####[address] [id number] CHEST 1 VIEWon 11-18-2020 CHEST 1 VIEW STUDY: Chest Radiograph; 11/18/2020 7:22 PM. INDICATION: Concern for dissection, chest pain. COMPARISON: None Available. ACCESSION NUMBER(S): [id number] ORDERING CLINICIAN: JERRY BLAIR MD TECHNIQUE: Frontal chest was obtained at 1919 hours. FINDINGS: CARDIOMEDIASTINAL SILHOUETTE: Cardiomediastinal silhouette is normal in size and configuration. LUNGS: Lungs are clear. ABDOMEN: No remarkable upper abdominal findings. BONES: No acute osseous changes. IMPRESSION: No acute cardiopulmonary process seen. Signed by Racquel Griffiths MD Electronically signed by: RACQUEL GRIFFITHS MD Normal [facility] COMPREHENSIVE PANELon 2020 Albumin [Mass/Vol] 4.2 g/dL Normal 3.4 - 5.0 [facility] Comment on above: Performed By: #### C MP ####[facility] [place], [place] [id number] ALP [Catalytic activity/Vol] 74 U/L Normal 33 - 120 [facility] Comment on above: Performed By: #### C MP ####[address] [place], [place] [id number] ALT [Catalytic activity/Vol] 19 U/L Normal 10 - 52 [facility] Comment on above: Result Comment: Carmelita ents treated with Sulfasalazine may generate falsely decreased results for ALT. Performed By: #### C MP ####[facility] [place], [place] [id number] Anion gap [Moles/Vol] 12 mmol/L Normal 10 - 20 [facility] Comment on above: Performed By: #### C MP ####[address] [id number] AST [Catalytic activity/Vol] 15 U/L Normal 9 - 39 [facility] Comment on above: Performed By: #### C MP ####[address] [id number] Bilirubin [Mass/Vol] 0.3 mg/dL Normal 0.0 - 1.2 [facility] Comment on above: Performed By: #### C MP ####[address] [id number] Calcium [Mass/Vol] 9.4 mg/dL Normal 8.6 - 10.3 [facility] Comment on above: Performed By: #### C MP ####[address] [id number] Chloride [Moles/Vol] 107 mmol/L Normal 98 - 107 [facility] Comment on above: Performed By: #### C MP ####[address] [id number] Creatinine [Mass/Vol] 1.12 mg/dL Normal 0.50 - 1.30 [facility] Comment on above: Performed By: #### C MP ####[address] [id number] GFR- AM. >60 Normal >60 [facility] Comment on above: Result Comment: CALC ULATIONS OF ESTIMATED GFR ARE PERFORMED USING THE MDRD STUDY EQUATION FOR THE IDMS-TRACEABLE CREATININE METHODS. CLIN CHEM 2007;53:766-72 Performed By: #### C MP ####[address] [id number] GFR-NON AM. >60 Normal >60 [facility] Comment on above: Performed By: #### C MP ####[facility] [place], [place] [id number] Glucose [Mass/Vol] 113 mg/dL High 74 - 99 [facility] Comment on above: Performed By: #### C MP ####[facility] [place], [place] [id number] HCO3 (Bld) [Moles/Vol] 28 mmol/L Normal 21 - 32 [facility] Comment on above: Performed By: #### C MP ####[facility] [place], [place] [id number] Potassium [Moles/Vol] 3.8 mmol/L Normal 3.5 - 5.3 [facility] Comment on above: Performed By: #### C MP ####[address] [place], [place] [id number] Protein [Mass/Vol] 7.0 g/dL Normal 6.4 - 8.2 [facility] Comment on above: Performed By: #### C MP ####[address] [id number] Sodium [Moles/Vol] 143 mmol/L Normal 136 - 145 [facility] Comment on above: Performed By: #### C MP ####[address] [id number] Urea nitrogen [Mass/Vol] 19 mg/dL Normal 6 - 23 [facility] Comment on above: Performed By: #### C MP ####[address] [id number] CORONAVIRUS 2019, SCREEN ASY MPTOMATICon 11-18-2020 SARS-CoV-2 (COVID-19) RNA ALLIE+probe Ql (Unsp spec) Not detected Normal Not Detected [facility] Comment on above: Result Comment: . This test has received FDA Emergency Use Authorization (EUA) and has been verified by [facility]. This test is only authorized for the duration of time that circumstances exist to justify the authorization of the emergency use of in vitro diagnostic tests for the detection of SARS-CoV-2 virus and/or diagnosis of COVID-19 infection under section 564(b)(1) of the Act, 21 U.S.C. 360bbb-3(b)(1), unless the authorization is terminated or revoked sooner. [facility] is certified under CLIA-88 as qualified to perform high complexity testing. Testing is performed in the [facility] laboratory located at [address] [place] [address]. SARS-CoV-2/Flu/RSV Multiplex Test: Fact sheet for providers: https://www.fda.gov/media/202904/download Fact sheet for patients: https://www.fda.gov/media/039672/download Performed By: #### C OVSC ####[facility] [place], [place] [id number] Lab Specimen Source Nasal, Nasopharyngeal Normal [facility] Comment on above: Performed By: #### C OVSC ####[address] [place], [place] [id number] Covid 19 Resultson 1 SARS-CoV-2 (COVID-19) RNA [...] You may also be contacted by the [facility] to see if any of your close [...] or Naproxen (Aleve) can also be used. Etdn-iwn-sqygrtj cough and cold medicines can be used according to the instructions on the package. Some dsgn-cra-trcvbua medicines also contain acetaminophen. Make sure you [...] water are not available, use alcohol-based hand fish housekeeper. Avoid touching your eyes, nose, and mouth [...] 24 oliva (more content not included)... Normal [facility] PCI (Percutaneous Cardiac In tervention)on 11-18-2020 PCI (Percutaneous Cardiac Intervention) [facility], Web Applications Programmer [address] [place] [address] Cardiovascular Catheterization Report Patient Name: Ashok Doss Performing Physician: Sheridan Stacy MD Study Date: 11/18/2020 Verifying Physician: Sheridan Stacy MD MRN/PID: [id number] Service Member: Accession/Order#: [id number] Referring Physician: [id number] José Miguel Posey MD Date of : [...] a modified Seldinger technique. Subsequently a 6 Bulgarian sheath was placed in the right femoral [...] less than 10% distal stenosis. First septal account development manager is moderately large and has 0% stenosis. [...] used. Complications (more content not included)... Normal [facility] Provider Note - ED v3on 11-02 Provider [...] try and relieve some of his symptoms. Web Applications Programmer was activated prehospital and the Web Applications Programmer team was at the bedside upon his arrival. Obtained a quick chest x-ray given he reported that the pain was sharp and radiating to his arm which not show pneumothorax and did not show a widened mediastinum so I doubt he is having dissection. Web Applications Programmer was available so patient was taken directly to Web Applications Programmer for percutaneous intervention for his ST segment elevation [place]. I did speak with the field crop ii farmworker team to let them know that the patient be coming to them afterwards. DIAGNOSIS: STEMI DISPOSITION: 1) Web Applications Programmer HISTORY OF PRESENTING ILLNESS ASHOK is a [...] Updated: 18-Nov-2020 20:27 by Jerry Blair) Normal [facility] TROPONIN Ion 11-18-2020 Troponin I.cardiac [Mass/Vol] 0.03 ng/mL Normal 0.00 - 0.03 [facility] Comment on above: Result Comment: LESS THAN [...] is performed using different testing methodology at [facility] than at other [facility]. Direct result comparisons should only be made within the same method. Performed By: #### T ROP2 ####[facility] [place], [place] [id number] Troponinon 05-05-2020 Troponin I.cardiac [Mass/Vol] 7 ng/L Normal 0-22 [facility] Comment on above: Result Comment: High Sensitivity Troponin values cannot be compared with other Troponin methodologies. Patients with high levels of Biotin oral intake (i.e >5mg/day) may have falsely decreased Troponin levels. Samples collected within 8 hours of biotin intake may require additional information for diagnosis. Performed By: #### T WILLY #### [facility] [address] [place] [address] [id number] Dental Laboratory Technician Apprentice: Shane Peña MD Troponin I.cardiac [Mass/Vol] NOT REPORTED [employer] Phone: Troponin T.cardiac [Mass/Vol] NOT REPORTED <0.03 ng/mL [employer] Phone: Troponin, High Sensitivity 7 ng/L 0 - 22 ng/L [employer] Phone: Comment on above: High Sensitivity Troponin values cannot be compared with other Troponin methodologies. Patients with high levels of Biotin oral intake (i.e >5mg/day) may have falsely decreased Troponin levels. Samples collected within 8 hours of biotin intake may require additional information for diagnosis. Troponinon 05-04-2020 Troponin I.cardiac [Mass/Vol] NOT REPORTED Normal [facility] Comment on above: Performed By: #### T WILLY #### [facility] [address] [place] [address] [id number] Dental Laboratory Technician Apprentice: Shane Peña MD CBCon 05-03-2020 Erythrocyte distribution width (RBC) [Ratio] 12.9 % Normal 11.8-14.4 [facility] Comment on above: Performed By: #### C BC, CP, LIPR, TSH #### [facility] [address] [place] [address] [id number] Dental Laboratory Technician Apprentice: Shane Peña MD Hematocrit (Bld) [Volume fraction] 43.3 % Normal 40.7-50.3 [facility] Comment on above: Performed By: #### C BC, CP, LIPR, TSH #### [facility] [address] [place] [address] Dental Laboratory Technician Apprentice: Shane Peña MD Hemoglobin (Bld) [Mass/Vol] 14.0 g/dL Normal 13.0-17.0 [facility] Comment on above: Performed By: #### C BC, CP, LIPR, TSH #### [facility] [address] [place] [address] 268[address] Dental Laboratory Technician Apprentice: Shane Peña MD MCH (RBC) [Entitic mass] 29.6 pg Normal 25.2-33.5 [facility] Comment on above: Performed By: #### C BC, CP, LIPR, TSH #### [facility] [address] [place] [address] 92017 Dental Laboratory Technician Apprentice: Shane Peña MD MCHC (RBC) [Mass/Vol] 32.3 g/dL Normal 28.4-34.8 [facility] Comment on above: Performed By: #### C BC, CP, LIPR, TSH #### [facility] [address] [place] [address] 65641 Dental Laboratory Technician Apprentice: Shane Peña MD MCV (RBC) [Entitic vol] 91.5 fL Normal 82.6-102.9 [facility] Comment on above: Performed By: #### C BC, CP, LIPR, TSH #### [facility] [address] [place] [address] 10860 Dental Laboratory Technician Apprentice: Shane Peña MD NRBC Automated 0.0 per 100 WBC Normal 0.0 [facility] Comment on above: Performed By: #### C BC, CP, LIPR, TSH #### [facility] [address] [place] [address] Dental Laboratory Technician Apprentice: Shane Peña MD Platelet mean volume (Bld) [Entitic vol] 9.1 fL Normal 8.1-13.5 [facility] Comment on above: Performed By: #### C BC, CP, LIPR, TSH #### [facility] [address] [place] [address] Dental Laboratory Technician Apprentice: Shane Peña MD Platelets (Bld) [#/Vol] 410 10*3/uL Normal 138-453 [facility] Comment on above: Performed By: #### C BC, CP, LIPR, TSH #### [facility] [address] [place] [address] Dental Laboratory Technician Apprentice: Shane Peña MD RBC (Bld) [#/Vol] 4.73 10*6/uL Normal 4.21-5.77 [facility] Comment on above: Performed By: #### C BC, CP, LIPR, TSH #### [facility] [address] [place] [address] 27072 Dental Laboratory Technician Apprentice: Shane Peña MD WBC (Bld) [#/Vol] 14.2 10*3/uL High 3.5-11.3 [facility] Comment on above: Performed By: #### C BC, CP, LIPR, TSH #### [facility] [address] [place] [address] 29221 Dental Laboratory Technician Apprentice: Shane Peña MD Erythrocyte distribution width (RBC) [Ratio] 12.9 % 11.8 - 14.4 % [employer] Phone: Hematocrit (Bld) [Volume fraction] 43.3 % 40.7 - 50.3 % [employer] Phone: Hemoglobin (Bld) [Mass/Vol] 14.0 g/dL 13 - 17 g/dL [employer] Phone: Interpretation and review of laboratory results Abnormal [employer] Phone: MCH (RBC) [Entitic mass] 29.6 pg 25.2 - 33.5 pg [employer] Phone: MCHC (RBC) [Mass/Vol] 32.3 g/dL 28.4 - 34.8 g/dL [employer] Phone: MCV (RBC) [Entitic vol] 91.5 fL 82.6 - 102.9 fL [employer] Phone: Platelet mean volume (Bld) [Entitic vol] 9.1 fL 8.1 - 13.5 fL [employer] Phone: Platelets (Bld) [#/Vol] 410 10*3/uL [employer] Phone: RBC (Bld) [#/Vol] 4.73 10*6/uL 4.21 - 5.7 7 m/uL [employer] Phone: WBC (Bld) [#/Vol] 0.0 10*3/uL 0.0 per 10 0 WBC [employer] Phone: WBC (Bld) [#/Vol] 14.2 10*3/uL High [employer] Phone: Comp Metabolic Profon 2020 (cont.) Normal [facility] Comment on above: Result Comment: Aver age GFR for 50-59 years old: 93 mL/min/1.73sq m Chronic Kidney Disease: <60 mL/min/1.73sq m Kidney failure: <15 mL/min/1.73sq m eGFR calculated using average adult body mass. Additional eGFR calculator available at: http://www.[employer].com/multiple_crcl_2011.htm Performed By: #### C BC, CP, LIPR, TSH #### [facility] [place] [address] Dental Laboratory Technician Apprentice: Shane Peña MD Albumin [Mass/Vol] 4.1 g/dL Normal 3.5-5.2 [facility] Comment on above: Performed By: #### C BC, CP, LIPR, TSH #### [facility] [address] [place] [address]648 Dental Laboratory Technician Apprentice: Shane Peña MD Albumin/Globulin [Mass ratio] 1.8 {ratio} Normal 1.0-2.5 [facility] Comment on above: Performed By: #### C BC, CP, LIPR, TSH #### [address] [address] Dental Laboratory Technician Apprentice: Shane Peña MD Alkaline Phos 80 U/L Normal 40-129 [facility] Comment on above: Performed By: #### C BC, CP, LIPR, TSH #### [address] [address] Dental Laboratory Technician Apprentice: Shane Peña MD ALT [Catalytic activity/Vol] 18 U/L Normal 5-41 [facility] Comment on above: Performed By: #### C BC, CP, LIPR, TSH #### [facility] [address] [place] [address] Dental Laboratory Technician Apprentice: Shane Peña MD Anion gap [Moles/Vol] 9 mmol/L Normal 9-17 [facility] Comment on above: Performed By: #### C BC, CP, LIPR, TSH #### [facility] [address] [place] [address] Dental Laboratory Technician Apprentice: Shane Peña MD AST [Catalytic activity/Vol] 15 U/L Normal <40 [facility] Comment on above: Performed By: #### C BC, CP, LIPR, TSH #### [facility] [address] [place] [address] Dental Laboratory Technician Apprentice: Shane Peña MD Bilirubin Ql (U) 0.32 mg/dL Normal 0.3-1.2 [facility] Comment on above: Performed By: #### C BC, CP, LIPR, TSH #### [facility] [address] [place] [address] Dental Laboratory Technician Apprentice: Shane Peña MD Calcium [Mass/Vol] 9.4 mg/dL Normal 8.6-10.4 [facility] Comment on above: Performed By: #### C BC, CP, LIPR, TSH #### [address] [address] Dental Laboratory Technician Apprentice: Shane Peña MD Chloride [Moles/Vol] 102 mmol/L Normal 98-107 [facility] Comment on above: Performed By: #### C BC, CP, LIPR, TSH #### [facility] [address] [place] [address] Dental Laboratory Technician Apprentice: Shane Peña MD CO2 [Moles/Vol] 26 mmol/L Normal 20-31 [facility] Comment on above: Performed By: #### C BC, CP, LIPR, TSH #### [address] [address] Dental Laboratory Technician Apprentice: Shane Peña MD Creatinine [Mass/Vol] 0.86 mg/dL Normal 0.70-1.20 [facility] Comment on above: Performed By: #### C BC, CP, LIPR, TSH #### [facility] [address] [place] [address] Dental Laboratory Technician Apprentice: Shane Peña MD GFR, Amer >60 Normal >60 [facility] Comment on above: Performed By: #### C BC, CP, LIPR, TSH #### [facility] [address] [place] [address] Dental Laboratory Technician Apprentice: Shane Peña MD GFR,non Amer >60 Normal >60 [facility] Comment on above: Performed By: #### C BC, CP, LIPR, TSH #### [facility] [address] [place] [phone] Dental Laboratory Technician Apprentice: Shane Peña MD Glucose [Mass/Vol] 95 mg/dL Normal 70-99 [facility] Comment on above: Performed By: #### C BC, CP, LIPR, TSH #### [facility] [employer] [address] [place] [address] Dental Laboratory Technician Apprentice: Shane Peña MD Potassium [Moles/Vol] 4.3 mmol/L Normal 3.7-5.3 [facility] Comment on above: Performed By: #### C BC, CP, LIPR, TSH #### [facility] [employer] [address] [place] [address]35 Dental Laboratory Technician Apprentice: Shane Peña MD Protein [Mass/Vol] 6.4 g/dL Normal 6.4-8.3 [facility] Comment on above: Performed By: #### C BC, CP, LIPR, TSH #### [facility] [employer] [address] [place] [address]92 Dental Laboratory Technician Apprentice: Shane Peña MD Sodium [Moles/Vol] 137 mmol/L Normal 135-144 [facility] Comment on above: Performed By: #### C BC, CP, LIPR, TSH #### [facility] [employer] [address] [place] [address] Dental Laboratory Technician Apprentice: Shane Peña MD Urea nitrogen [Mass/Vol] 17 mg/dL Normal 6-20 [facility] Comment on above: Performed By: #### C BC, CP, LIPR, TSH #### [facility] [employer] [address] [place] [address]98 Dental Laboratory Technician Apprentice: Shane Peña MD BUN/CRE Ratio NOT REPORTED Normal 9-20 [facility] Comment on above: Performed By: #### C BC, CP, LIPR, TSH #### [facility] [address] [place] [address] Dental Laboratory Technician Apprentice: Shane Peña MD Staging: NOT REPORTED Normal [facility] Comment on above: Performed By: #### C BC, CP, LIPR, TSH #### [facility] [place] [address] Dental Laboratory Technician Apprentice: Shane Peña MD Comprehensive Metabolic Pane feng 05-03-2020 Albumin [Mass/Vol] 4.1 g/dL 3.5 - 5.2 g/dL [employer] Phone: Albumin/Globulin [Mass ratio] 1.8 {ratio} [employer] Phone: ALP [Catalytic activity/Vol] 80 U/L 40 - 129 U/L [employer] Work Phone: ALT [Catalytic activity/Vol] 18 U/L 5 - 41 U/L [employer] Phone: Anion gap [Moles/Vol] 9 mmol/L 9 - 17 mmol/L [employer] Phone: AST [Catalytic activity/Vol] 15 U/L <40 [employer] Phone: Bilirubin Ql (U) 0.32 mg/dL 0.3 - 1.2 mg/dL [employer] Phone: Bun/Cre Ratio NOT REPORTED [email or web address] [facility] Work Phone: Calcium [Mass/Vol] 9.4 mg/dL 8.6 - 10. 4 mg/dL [employer] Phone: Chloride [Moles/Vol] 102 mmol/L 98 - 10 7 mmol/L [employer] Work Phone: CO2 [Moles/Vol] 26 mmol/L 20 - 31 mmol/L [employer] Phone: Creatinine [Mass/Vol] 0.86 mg/dL 0.7 - 1.2 mg/dL [employer] Phone: GFR >60 >60 mL/min [employer] Phone: GFR Non- >60 >60 mL/min [employer] Phone: GFR/1.73 sq M predicted among non-blacks MDRD (S/P/Bld) [Vol rate/Area] [employer] Phone: Comment on above: Average GFR for 50-5 9 years old: 93 mL/min/1.73sq m Chronic Kidney Disease: <60 mL/min/1.73sq m Kidney failure: <15 mL/min/1.73sq m eGFR calculated using average adult body mass. Additional eGFR calculator available at: http://www.[employer]/Oobafit_crcl_2012.htm GFR/1.73 sq M predicted among non-blacks MDRD (S/P/Bld) [Vol rate/Area] NOT REPORTED [employer] Phone: Glucose [Mass/Vol] 95 mg/dL 70 - 99 mg/dL [employer] Phone: Potassium [Moles/Vol] 4.3 mmol/L 3.7 - 5.3 mmol/L [employer] Phone: Protein [Mass/Vol] 6.4 g/dL 6.4 - 8.3 g/dL [employer] Phone: Sodium [Moles/Vol] 137 mmol/L 135 - 144 mmol/L [employer] Phone: Urea nitrogen [Mass/Vol] 17 mg/dL 6 - 20 mg/dL [employer] Phone: Lipid Panelon 05-03-2020 Cholesterol [Mass/Vol] 172 mg/dL <200 [employer] Phone: Comment on above: Cholesterol Guidelines: <200 Desirable 200-240 Borderline >240 Undesirable Cholesterol in HDL [Mass/Vol] 38 mg/dL Low >40 [employer] Phone: Comment on above: HDL Guidelines: <40 Undesirable 40-59 Borderline >59 Desirable Cholesterol in LDL [Mass/Vol] 106 mg/dL 0 - 130 mg/dL [employer] Phone: Comment on above: LDL Guidelines: <100 Desirable 100-129 Near to/above Desirable 130-159 Borderline >159 Undesirable Direct (measured) LDL and calculated LDL are not interchangeable tests. Cholesterol in VLDL [Mass/Vol] NOT REPORTED 1 - 30 mg/dL [employer] Phone: Cholesterol.total/Ch olesterol in HDL [Mass ratio] 4.5 {ratio} <5 [employer] Phone: Interpretation and review of laboratory results Abnormal [employer] Phone: Triglyceride [Mass/Vol] 138 mg/dL <150 [employer] Phone: Comment on above: Triglyceride Guidelines: <150 Desirable 150-199 Borderline 200-499 High >499 Very high Based on AHA Guidelines for fasting triglyceride, December 2011. Lipid Profileon 05-03-2020 Cholesterol [Mass/Vol] 172 mg/dL Normal <200 [facility] Comment on above: Result Comment: Cholesterol Guidelines: <200 Desirable 200-240 Borderline >240 Undesirable Performed By: #### C BC, CP, LIPR, TSH #### [facility] [address] [place] [address] [phone] Dental Laboratory Technician Apprentice: Shane Peña MD Cholesterol in HDL [Mass/Vol] 38 mg/dL Low >40 [facility] Comment on above: Result Comment: HDL Guidelines: <40 Undesirable 40-59 Borderline >59 Desirable Performed By: #### C BC, CP, LIPR, TSH #### [facility] [address] [place] [address] [phone] Dental Laboratory Technician Apprentice: Shane Peña MD Cholesterol in LDL [Mass/Vol] 106 mg/dL Normal 0-130 [facility] Comment on above: Result Comment: LDL Guidelines: <100 Desirable 100-129 Near to/above Desirable 130-159 Borderline >159 Undesirable Direct (measured) LDL and calculated LDL are not interchangeable tests. Performed By: #### C BC, CP, LIPR, TSH #### [facility] [address] [place] [address] [phone] Dental Laboratory Technician Apprentice: Shane Peña MD Cholesterol.total/Ch olesterol in HDL [Mass ratio] 4.5 {ratio} Normal <5 [facility] Comment on above: Performed By: #### C BC CP, LIPR, TSH #### [facility] [address] [place] [address] [phone] Dental Laboratory Technician Apprentice: Shane Peña MD Triglyceride [Mass/Vol] 138 mg/dL Normal <150 [facility] Comment on above: Result Comment: Triglyceride Guidelines: <150 Desirable 150-199 Borderline 200-499 High >499 Very high Based on AHA Guidelines for fasting triglyceride, December 2011. Performed By: #### C TARIQ CP, LIPR, TSH #### [facility] [employer] [address] [place] [address] [phone] Dental Laboratory Technician Apprentice: Shane Peña MD Cholesterol in VLDL [Mass/Vol] NOT REPORTED Normal 1-30 [facility] Comment on above: Performed By: #### C BC CP, LIPR, TSH #### [facility] [employer] [address] [place] [address] [phone] Dental Laboratory Technician Apprentice: Shane Peña MD TSH without Reflexon 021 TSH Qn 1.35 m[IU]/L [facility] [employer] Work Phone: Thyroid Stim. Horm.on 2020 TSH Qn 1.35 m[IU]/L Normal 0.30-5.00 [facility] Comment on above: Performed By: #### C BC, CP, LIPR, TSH #### [facility] [employer] [address] [place] [address] [phone] Dental Laboratory Technician Apprentice: Shane Peña MD XR CHEST (2 VW)on [...] Stephan Soto MD 05/03/20 Final result Normal [facility] No evidence for acut e cardiopulmonary pathology. [employer] Phone: EXAMINATION: TWO XRA Y VIEWS OF [...] structures and soft tissues are grossly intact. [employer] Phone: Robert, Mhpn Incoming Radiant Results From [employer] - 05/03/2020 11:24 AM EST EXAMINATION: TWO [...] IMPRESSION: No evidence for acute cardiopulmonary pathology. [employer] Phone: Covid-19 Ambulatoryon 2019 SARS-CoV-2, ALLIE Not Detected Not Detected [facility] [place] Comment on above: (NOTE) This nucleic acid amplification test was developed and its performance characteristics determined by [employer]. Nucleic acid amplification tests include PCR and [...] detected) result in this assay. Performed At: [employer] [facility] [address] [facility], [place] [id number] Lilian Severino [facility] Ph:[phone] [id number] 11-09-2019 SARS-CoV-2 Not Detected Normal Not Detected [facility] Comment on above: Result Comment: (NOT E) This nucleic acid amplification test was developed and its performance characteristics determined by [employer]. Nucleic acid amplification tests include PCR and [...] detected) result in this assay. Performed At: [employer] [facility] [address] [facility], [place] [id number] Lilian Severino [facility] Ph:[phone] Performed By: #### A COV #### [facility] [address] [place] [address] Dental Laboratory Technician Apprentice: MD ARLEN Perrin 12 Leadon 11-04-2019 Atrial Rate 82 BPM [place] P [place] 52 degrees [place] P-R Interval 146 ms [place] Q-T Interval 388 ms [place] QRS Duration 102 ms [place] QTc Calculation ([place]az[place]) 453 ms [place] R [place] -21 degrees [place] T [place] 58 [place] Ventricular Rate 82 BPM [place], [place] Robert, [employer] Incoming E kg Results From [place] - 11/04/2019 10:29 AM EDT Normal sinus rhythm Normal ECG No previous ECGs available [place] Normal sinus rhythm Normal ECG No previous ECGs available [place] Basic Metabolic Panelon 10-04 Anion gap [Moles/Vol] 10 mmol/L 9 - 17 mmol/L [place] Bun/Cre Ratio NOT REPORTED [place] Calcium [Mass/Vol] 9.2 mg/dL 8.6 - 10. 4 mg/dL [place] Chloride [Moles/Vol] 104 mmol/L 98 - 10 7 mmol/L [place] CO2 [Moles/Vol] 27 mmol/L 20 - 31 mmol/L [place] Creatinine [Mass/Vol] 0.83 mg/dL 0.7 - 1.2 mg/dL [place] GFR >60 >60 mL/min [place] GFR Non- >60 >60 mL/min [place] GFR/1.73 sq M predicted among non-blacks MDRD (S/P/Bld) [Vol rate/Area] [place] Comment on above: Average GFR for 50-5 9 years old: 93 mL/min/1.73sq m Chronic Kidney Disease: <60 mL/min/1.73sq m Kidney failure: <15 mL/min/1.73sq m eGFR calculated using average adult body mass. Additional eGFR calculator available at: http://www.[employer]/multiple_crcl_2012.htm GFR/1.73 sq M predicted among non-blacks MDRD (S/P/Bld) [Vol rate/Area] NOT REPORTED [place] Glucose [Mass/Vol] 103 mg/dL High 70 - 99 mg/dL [place] Interpretation and review of laboratory results Abnormal [place] Potassium [Moles/Vol] 4.5 mmol/L 3.7 - 5.3 mmol/L [place] Sodium [Moles/Vol] 141 mmol/L 135 - 144 mmol/L [place] Urea nitrogen [Mass/Vol] 18 mg/dL 6 - 20 mg/dL [place] Basic Metabolic Profon 11-01 (cont.) Normal [facility] Comment on above: Result Comment: Aver age GFR for 50-59 years old: 93 mL/min/1.73sq m Chronic Kidney Disease: <60 mL/min/1.73sq m Kidney failure: <15 mL/min/1.73sq m eGFR calculated using average adult body mass. Additional eGFR calculator available at: http://www.[employer]/multiple_crcl_2012.htm Performed By: #### C KLAUS, BMP #### [facility] [place] [address] Dental Laboratory Technician Apprentice: Cheko Boykin DO Anion gap [Moles/Vol] 10 mmol/L Normal 9-17 [facility] Comment on above: Performed By: #### C KLAUS, BMP #### [facility] [place] [address] Dental Laboratory Technician Apprentice: Cheko Boykin DO Calcium [Mass/Vol] 9.2 mg/dL Normal 8.6-10.4 [facility] Comment on above: Performed By: #### C KLAUS, BMP #### [facility] [place] [address] Dental Laboratory Technician Apprentice: Cheko Boykin DO Chloride [Moles/Vol] 104 mmol/L Normal 98-107 [facility] Comment on above: Performed By: #### C DP, BMP #### [facility] [address] [place] [address] Dental Laboratory Technician Apprentice: Cheko Boykin DO CO2 [Moles/Vol] 27 mmol/L Normal 20-31 [facility] Comment on above: Performed By: #### C DP, BMP #### [facility] [address] [place] [address] Dental Laboratory Technician Apprentice: Cheko Boykin, DO Creatinine [Mass/Vol] 0.83 mg/dL Normal 0.70-1.20 [facility] Comment on above: Performed By: #### C DP, BMP #### [facility] [place] [address] Dental Laboratory Technician Apprentice: Cheko Boykin DO GFR, Amer >60 Normal >60 [facility] Comment on above: Performed By: #### C DP, BMP #### [facility] [address] [place] [address] Dental Laboratory Technician Apprentice: Cheko Boykin DO GFR,non Amer >60 Normal >60 [facility] Comment on above: Performed By: #### C DP, BMP #### [facility] [place] [address] Dental Laboratory Technician Apprentice: Cheko Boykin DO Glucose [Mass/Vol] 103 mg/dL High 70-99 [facility] Comment on above: Performed By: #### C DP, BMP #### [facility] [place] [address] Dental Laboratory Technician Apprentice: Cheko Boykin DO Potassium [Moles/Vol] 4.5 mmol/L Normal 3.7-5.3 [facility] Comment on above: Performed By: #### C DP, BMP #### [facility] [address] [place] [address] Dental Laboratory Technician Apprentice: Cheko Boykin DO Sodium [Moles/Vol] 141 mmol/L Normal 135-144 [facility] Comment on above: Performed By: #### C DP, BMP #### [facility] [address] [facility] [place] [address] Dental Laboratory Technician Apprentice: Cheko Boykin DO Urea nitrogen [Mass/Vol] 18 mg/dL Normal 6-20 [facility] Comment on above: Performed By: #### C DP, BMP #### [facility] [address] [place] [address]. [place] [address] Dental Laboratory Technician Apprentice: Cheko Boykin DO BUN/CRE Ratio NOT REPORTED Normal -20 [facility] Comment on above: Performed By: #### C DP, BMP #### [facility] [address] [place] [address]. [place] [address] Dental Laboratory Technician Apprentice: Cheko Boykin DO Staging: NOT REPORTED Normal [facility] Comment on above: Performed By: #### C DP, BMP #### [facility] [address] [place] [address] Dental Laboratory Technician Apprentice: Cheko Boykin DO CBC Auto Differentialon 08-3 Basophils (Bld) [#/Vol] 0.10 10*3/uL [facility] [place] Basophils/100 WBC (Bld) 1 % 0 - 2 % [place] Differential Type NOT REPORTED [place] Eosinophils (Bld) [#/Vol] 0.60 10*3/uL High [facility] Eosinophils/100 WBC (Bld) 4 % 0 - 4 % [facility] Erythrocyte distribution width (RBC) [Ratio] 13.9 % 11.5 - 14.9 % [place] Hematocrit (Bld) [Volume fraction] 42.4 % 41 - 53 % [place] Hemoglobin (Bld) [Mass/Vol] 14.5 g/dL 13.5 - 17.5 g/dL [place] Interpretation and review of laboratory results Abnormal [place] Lymphocytes (Bld) [#/Vol] 4.00 10*3/uL [place] Lymphocytes/100 WBC (Bld) 29 % 24 - 44 % [place] MCH (RBC) [Entitic mass] 30.5 pg 26 - 34 pg [place] MCHC (RBC) [Mass/Vol] 34.2 g/dL 31 - 37 g/dL [place] MCV (RBC) [Entitic vol] 89.1 fL 80 - 100 fL [place] Monocytes (Bld) [#/Vol] 1.00 10*3/uL [place] Monocytes/100 WBC (Bld) 7 % 1 - 7 % [place] Platelet mean volume (Bld) [Entitic vol] 7.1 fL 6 - 12 fL [place] Platelets (Bld) [#/Vol] 378 10*3/uL [place] Platelets (Bld) [#/Vol] NOT REPORTED [place] RBC (Bld) [#/Vol] 4.76 10*6/uL 4.5 - 5.9 m/uL [place] RBC morphology finding Nom (Bld) NOT REPORTED [place] Segmented neutrophils/100 WBC (Bld) 59 % 36 - 66 % [place] Segs Absolute 8.30 [place] WBC (Bld) [#/Vol] 13.9 10*3/uL High [place] WBC (Bld) [#/Vol] NOT REPORTED per 100 WBC [place] WBC Morphology NOT REPORTED [place] CBC with Diffon 11-02-2019 Abs. Basophil 0.10 k/uL Normal 0.0-0.2 [facility] Comment on above: Performed By: #### C DP, BMP #### [facility] [address] [place], [place] [phone] Dental Laboratory Technician Apprentice: Cheko Boykin DO Abs.Neutrophil (Seg) 8.30 k/uL Normal 1.3-9.1 [facility] Comment on above: Performed By: #### C DP, BMP #### [facility] [address] [place] [address] Dental Laboratory Technician Apprentice: Cheko Boykin DO Basophils/100 WBC (Bld) 1 % Normal 0-2 [facility] Comment on above: Performed By: #### C DP, BMP #### [facility] [place] [address] Dental Laboratory Technician Apprentice: Cheko Boykin DO Eosinophils (Bld) [#/Vol] 0.60 10*3/uL High 0.0-0.4 [facility] Comment on above: Performed By: #### C DP, BMP #### [facility] [facility] [place] [address] Dental Laboratory Technician Apprentice: Cheko Boykin DO Eosinophils/100 WBC (Bld) 4 % Normal 0-4 [facility] Comment on above: Performed By: #### C DP, BMP #### [facility] [place] [address] Dental Laboratory Technician Apprentice: Cheko Boykin DO Erythrocyte distribution width (RBC) [Ratio] 13.9 % Normal 11.5-14.9 [facility] Comment on above: Performed By: #### C DP, BMP #### [facility] [place] [facility] [place] [address] Dental Laboratory Technician Apprentice: Cheko Boykin DO Hematocrit (Bld) [Volume fraction] 42.4 % Normal 41-53 [facility] Comment on above: Performed By: #### C DP, BMP #### [facility] [place] [address] Dental Laboratory Technician Apprentice: Cheko Boykin DO Hemoglobin (Bld) [Mass/Vol] 14.5 g/dL Normal 13.5-17.5 [facility] Comment on above: Performed By: #### C DP, BMP #### [facility] [address] [place] [address] Dental Laboratory Technician Apprentice: Cheko Boykin DO Lymphocytes (Bld) [#/Vol] 4.00 10*3/uL Normal 1.0-4.8 [facility] Comment on above: Performed By: #### C DP, BMP #### [facility] [address] [place] [address] Dental Laboratory Technician Apprentice: Cheko Boykin DO Lymphocytes/100 WBC (Bld) 29 % Normal 24-44 [facility] Comment on above: Performed By: #### C KLAUS, BMP #### [facility] [place] [address] Dental Laboratory Technician Apprentice: Cheko Boykin DO MCH (RBC) [Entitic mass] 30.5 pg Normal 26-34 [facility] Comment on above: Performed By: #### C DP, BMP #### [facility] [place] [address] Dental Laboratory Technician Apprentice: Cheko Boykin DO MCHC (RBC) [Mass/Vol] 34.2 g/dL Normal 31-37 [facility] Comment on above: Performed By: #### C DP, BMP #### [facility] [place] [address] Dental Laboratory Technician Apprentice: Cheko Boykin DO MCV (RBC) [Entitic vol] 89.1 fL Normal 80-100 [facility] Comment on above: Performed By: #### C DP, BMP #### [facility] [place] [address] Dental Laboratory Technician Apprentice: Cheko Boykin DO Monocytes (Bld) [#/Vol] 1.00 10*3/uL Normal 0.1-1.3 [facility] Comment on above: Performed By: #### C DP, BMP #### [facility] [address] [place] [address] Dental Laboratory Technician Apprentice: Cheko Boykin DO Monocytes/100 WBC (Bld) 7 % Normal 1-7 [facility] Comment on above: Performed By: #### C DP, BMP #### [facility] [address] [place] [address] Dental Laboratory Technician Apprentice: Cheko Boykin DO Neutrophil (Seg) 59 % Normal 36-66 [facility] Comment on above: Performed By: #### C DP, BMP #### [facility] [place] [address] Dental Laboratory Technician Apprentice: Cheko Boykin DO Platelet mean volume (Bld) [Entitic vol] 7.1 fL Normal 6.0-12.0 [facility] Comment on above: Performed By: #### C KLAUS, BMP #### [facility] [place] [address] Dental Laboratory Technician Apprentice: Cheko Boykin DO Platelets (Bld) [#/Vol] 378 10*3/uL Normal 150-450 [facility] Comment on above: Performed By: #### C KLAUS, BMP #### [facility] [place] [address] Dental Laboratory Technician Apprentice: Cheko Boykin DO RBC (Bld) [#/Vol] 4.76 10*6/uL Normal 4.5-5.9 [facility] Comment on above: Performed By: #### C DP, BMP #### [facility] [place] [address] Dental Laboratory Technician Apprentice: Cheko Boykin DO WBC (Bld) [#/Vol] 13.9 10*3/uL High 3.5-11.0 [facility] Comment on above: Performed By: #### C DP, BMP #### [facility] [address] [place] [address] Dental Laboratory Technician Apprentice: Cheko Boykin DO Abs.Imm.Granulocyte NOT REPORTED Normal 0.00-0.30 [facility] Comment on above: Performed By: #### C DP, BMP #### [facility] [address] [place] [address] Dental Laboratory Technician Apprentice: Cheko Boykin DO Auto Diff Performed NOT REPORTED Normal [facility] Comment on above: Performed By: #### C DP, BMP #### [facility] [address] [place] [address] Dental Laboratory Technician Apprentice: Cheko Boykin DO Immature granulocytes (Bld) [#/Vol] NOT REPORTED Normal 0 [facility] Comment on above: Performed By: #### C DP, BMP #### [facility] [address] [place] [address] Dental Laboratory Technician Apprentice: Cheko Boykin DO NRBC Automated NOT REPORTED Normal [facility] Comment on above: Performed By: #### C DP, BMP #### [facility] [address] [place] [address] Dental Laboratory Technician Apprentice: Cheko Boykin DO Platelets (Bld) [#/Vol] NOT REPORTED Normal [facility] Comment on above: Performed By: #### C DP, BMP #### [facility] [address] [place] [address] Dental Laboratory Technician Apprentice: Cheko Boykin DO RBC morphology finding Nom (Bld) NOT REPORTED Normal [facility] Comment on above: Performed By: #### C DP, BMP #### [facility] [address] [place] [address] Dental Laboratory Technician Apprentice: Cheko Boykin DO WBC Morphology NOT REPORTED Normal [facility] [facility] Comment on above: Performed By: #### C KLAUS, LORE #### [facility] [address] [place] [address] Dental Laboratory Technician Apprentice: Cheko Boykin DO Otheron 11-02-2019 Immature granulocytes (Bld) [#/Vol] NOT REPORTED 0 % [facility], [place] MRI KNEE LEFT WO CONTRASTon 10-28-2019 MRI [...] quadriceps tendinosis. 3. Moderate joint effusion. 4. Khun-sh-pclfjsvt patellofemoral chondromalacia. Mild medial compartment chondromalacia. Superimposed partial and full-thickness fissuring of the weight-bearing medial femoral condyle. 5. Mild edema in the soft tissues about the knee. Interpreted by: Simeon Long MD Signed by: Simeon Long MD 10/28/19 Final result Normal [facility] 1. Complex multidirectional tearing and volume loss in the posterior horn of the medial meniscus. Degeneration and outward extrusion of the medial meniscus body. 2. Mild multifocal patellar tendinosis. Mild distal quadriceps tendinosis. 3. Moderate joint effusion. 4. Xolk-ol-lxhtppyx patellofemoral chondromalacia. Mild medial compartment chondromalacia. Superimposed partial and full-thickness fissuring of the weight-bearing medial femoral condyle. 5. Mild edema in the soft tissues about the knee. [facility], [place] EXAMINATION: MRI OF THE LEFT KNEE WITHOUT [...] in the soft tissues about the knee. [facility]- [place], [place] Robert, Mhpn Incoming Radiant Results From [employer] - 10/28/2019 3:10 PM EDT EXAMINATION: MRI [...] quadriceps tendinosis. 3. Moderate joint effusion. 4. Xmie-tu-ekzgrmev patellofemoral chondromalacia. Mild medial compartment chondromalacia. Superimposed partial and full-thickness fissuring of the weight-bearing medial femoral condyle. 5. Mild edema in the soft tissues about the knee. [place], [place] XR KNEE LEFT (3 VIEWS)on XR [...] Roz Mora MD 09/29/19 Final result Normal [facility] Small joint effusion. [place], [place] EXAMINATION: THREE X RAY VIEWS OF [...] within the medial compartment. Small joint effusion. [place], [place] Robert, Mhpn Incoming Radiant Results From [employer] - 09/29/2019 2:11 PM EDT EXAMINATION: THREE [...] Small joint effusion. IMPRESSION: Small joint effusion. [place], [place] Uric Acidon 09-28-2019 Urate [Mass/Vol] 6.0 mg/dL 3.4 - 7 mg/dL [place] Uric Acidon 12-09-2018 Urate [Mass/Vol] 5.8 mg/dL 3.4 - 7 mg/dL [place] CBCon 11-05-2018 Erythrocyte distribution width (RBC) [Ratio] 13.1 % 11.8 - 14.4 % [place] Hematocrit (Bld) [Volume fraction] 46.1 % 40.7 - 50.3 % [place] Hemoglobin (Bld) [Mass/Vol] 14.9 g/dL 13 - 17 g/dL [place] Interpretation and review of laboratory results Abnormal [place] MCH (RBC) [Entitic mass] 31.0 pg 25.2 - 33.5 pg [place] MCHC (RBC) [Mass/Vol] 32.3 g/dL 28.4 - 34.8 g/dL [place] MCV (RBC) [Entitic vol] 95.8 fL 82.6 - 102.9 fL [place] Platelet mean volume (Bld) [Entitic vol] 9.2 fL 8.1 - 13.5 fL [place], [place] Platelets (Bld) [#/Vol] 374 10*3/uL [place] RBC (Bld) [#/Vol] 4.81 10*6/uL 4.21 - 5.7 7 m/uL [place] WBC (Bld) [#/Vol] 11.8 10*3/uL High [place] WBC (Bld) [#/Vol] 0.0 10*3/uL 0.0 per 10 0 WBC [place] Comprehensive Metabolic Pane feng 11-05-2018 Albumin [Mass/Vol] 4.2 g/dL 3.5 - 5.2 g/dL [place] Albumin/Globulin [Mass ratio] 1.7 {ratio} [place] ALP [Catalytic activity/Vol] 83 U/L 40 - 129 U/L [place] ALT [Catalytic activity/Vol] 19 U/L 5 - 41 U/L [place] Anion gap [Moles/Vol] 16 mmol/L 9 - 17 mmol/L [place] AST [Catalytic activity/Vol] 15 U/L <40 [place] Bilirubin Ql (U) 0.29 mg/dL Low 0.3 - 1.2 mg/dL [place] Bun/Cre Ratio NOT REPORTED [place] Calcium [Mass/Vol] 9.5 mg/dL 8.6 - 10. 4 mg/dL [place] Chloride [Moles/Vol] 104 mmol/L 98 - 10 7 mmol/L [place] CO2 [Moles/Vol] 26 mmol/L 20 - 31 mmol/L [place] Creatinine [Mass/Vol] 0.81 mg/dL 0.7 - 1.2 mg/dL [place] GFR >60 >60 mL/min [place], [place] GFR Non- >60 >60 mL/min [place] GFR/1.73 sq M predicted among non-blacks MDRD (S/P/Bld) [Vol rate/Area] NOT REPORTED [place] GFR/1.73 sq M predicted among non-blacks MDRD (S/P/Bld) [Vol rate/Area] [place] Comment on above: Average GFR for 50-5 9 years old: 93 mL/min/1.73sq m Chronic Kidney Disease: <60 mL/min/1.73sq m Kidney failure: <15 mL/min/1.73sq m eGFR calculated using average adult body mass. Additional eGFR calculator available at: http://www.[employer]/multiple_crcl_2012.htm Glucose [Mass/Vol] 99 mg/dL 70 - 99 mg/dL [place] Potassium [Moles/Vol] 4.4 mmol/L 3.7 - 5.3 mmol/L [place] Protein [Mass/Vol] 6.7 g/dL 6.4 - 8.3 g/dL [place] Sodium [Moles/Vol] 146 mmol/L High 135 - 144 mmol/L [place] Urea nitrogen [Mass/Vol] 17 mg/dL 6 - 20 mg/dL [place] Lipid Panelon 11-05-2018 Cholesterol [Mass/Vol] 199 mg/dL <200 [place] Comment on above: Cholesterol Guidelines: <200 Desirable 200-240 Borderline >240 Undesirable Cholesterol in HDL [Mass/Vol] 42 mg/dL >40 [place] Comment on above: HDL Guidelines: <40 Undesirable 40-59 Borderline >59 Desirable Cholesterol in LDL [Mass/Vol] 126 mg/dL 0 - 130 mg/dL [place] Comment on above: LDL Guidelines: <100 Desirable 100-129 Near to/above Desirable 130-159 Borderline >159 Undesirable Direct (measured) LDL and calculated LDL are not interchangeable tests. Cholesterol in VLDL [Mass/Vol] NOT REPORTED High 1 - 30 mg/dL [place] Cholesterol.total/Ch olesterol in HDL [Mass ratio] 4.7 {ratio} <5 [place] Triglyceride [Mass/Vol] 157 mg/dL High <150 [place] Comment on above: Triglyceride Guidelines: <150 Desirable 150-199 Borderline 200-499 High >499 Very high Based on AHA Guidelines for fasting triglyceride, December 2011. Otheron 11-05-2018 Interpretation and review of laboratory results Abnormal [place] Vital Signs Date Time Vital Sign Value Performing Clinician Facility 05-01-2023 [id number] Body height 180.3 cm Hunter Robins APRNBoosterMedia Work Phone: [facility] 05-01-2023 10:28-050 Body mass index (BMI) [Ratio] 38.49 kg/m2 Hunter Robins [employer]NBo[employer] Work Phone: [facility] 05-01-2023 10:28-0500 Body temperature 97.9 [degF] Hunter Julienne MONTESSORI LEAD TEACHER-FOREST LAW AND POLICY PROFESSOR Work Phone: [facility] 05-01-2023 10:28-0500 Body weight 125.19 kg Hunter Robins APRN-FOREST LAW AND POLICY PROFESSOR Work Phone: [facility] 05-01-2023 10:28-0500 Diastolic blood pressure 72 mm[Hg] Hunter Robins MONTESSORI LEAD TEACHER-FOREST LAW AND POLICY PROFESSOR Work Phone: [facility] 05-01-2023 10:28-0500 Heart rate 68 /min Hunter Robins MONTESSORI LEAD TEACHER-FOREST LAW AND POLICY PROFESSOR Work Phone: [facility] 05-01-2023 10:28-0500 SaO2% (BldA) [Mass fraction] 95 % Hunter Robins APRN-FOREST LAW AND POLICY PROFESSOR Work Phone: [facility] 05-01-2023 10:28-0500 Systolic blood pressure 138 mm[Hg] Hunter Robins APRN-FOREST LAW AND POLICY PROFESSOR Work Phone: [facility] 11-26-2022 15:24-0400 Body height 187.96 cm Colten Barnard modulong Work Phone: [facility] [employer] 250 DO Work Phone: 11-26-2022 15:24-0400 Body mass index (BMI) [Ratio] 35.31 kg/m2 Colten Barnard modulong Work Phone: [facility] [employer] 250 DO Work Phone: 11-26-2022 15:24-0400 Body surface area Derived from formula 2.49 m2 Colten G Furlong Work Phone: [facility] [employer] 250 DO Work Phone: 11-26-2022 15:24-0400 Body weight 124.74 kg Colten G Furlong Work Phone: [facility] [employer] 250 DO Work Phone: 11-26-2022 15:24-0400 Diastolic blood pressure 72 mm[Hg] Colten G Furlong Work Phone: [facility] 250 DO Work Phone: 11-26-2022 15:24-0400 Heart rate 70 /min Colten G Furlong Work Phone: [facility] 250 DO Work Phone: 11-26-2022 15:24-0400 Systolic blood pressure 138 mm[Hg] Colten G Furlong Work Phone: [facility] 250 DO Work Phone: 10-19-2021 14:25-0400 Body height 187.96 cm Colten G Furlong Work Phone: [facility] 250 DO Work Phone: 10-19-2021 14:25-0400 Body mass index (BMI) [Ratio] 33.64 kg/m2 Colten G Furlong Work Phone: [facility] [employer] 250 DO Work Phone: 10-19-2021 14:25-0400 Body surface area Derived from formula 2.44 m2 Colten G Furlong Work Phone: [facility] 250 DO Work Phone: 10-19-2021 14:25-0400 Body weight 118.84 kg Colten G Furlong Work Phone: [facility] 250 DO Work Phone: 10-19-2021 14:25-0400 Diastolic blood pressure 68 mm[Hg] Colten G Furlong Work Phone: [facility] 250 DO Work Phone: 10-19-2021 14:25-0400 Heart rate 74 /min Colten G Furlong Work Phone: [facility] [employer] 250 DO Work Phone: 10-19-2021 14:25-0400 Systolic blood pressure 130 mm[Hg] Colten Amoslong Work Phone: [facility] [employer] 250 DO Work Phone: 06-06-2021 10:10-0400 Body height 188 cm Megan Interiano MD Work Phone: [facility] 06-06-2021 10:10-0400 Body weight 116.8 kg Megan Interiano MD Work Phone: [facility] 06-06-2021 10:10-0400 Diastolic blood pressure 71 mm[Hg] Megan Interiano MD Work Phone: [facility] 06-06-2021 10:10-0400 Heart rate 62 /min Megan Interiano MD Work Phone: [facility] 06-06-2021 10:10-0400 Respiratory rate 16 /min Megan Interiano MD Work Phone: [facility] 06-06-2021 10:10-0400 SaO2% (BldA) [Mass fraction] 98 % Megan Interiano MD Work Phone: [facility] 06-06-2021 10:10-0400 Systolic blood pressure 148 mm[Hg] Megan Interiano MD Work Phone: [facility] 05-26-2021 09:27-0400 Body height 187.96 cm Colten Amoslong [facility] 600 DO Work Phone: 05-26-2021 09:27-0400 Body mass index (BMI) [Ratio] 33.41 kg/m2 Colten Barnard Furlong Work [facility]: [facility] 600 DO Work Phone: 05-26-2021 09:27-0400 Body surface area Derived from formula 2.43 m2 Colten G Furlong Work Phone: [facility] 600 DO Work Phone: 05-26-2021 09:27-0400 Body weight 118.03 kg Colten G Furlong Work Phone: [facility] 600 DO Work Phone: 05-26-2021 09:27-0400 Diastolic blood pressure 66 mm[Hg] Colten G Furlong Work Phone: [facility] 600 DO Work Phone: 05-26-2021 09:27-0400 Heart rate 62 /min Colten G Furlong Work Phone: [facility] 600 DO Work Phone: 05-26-2021 09:27-0400 Systolic blood pressure 122 mm[Hg] Colten G Furlong Work Phone: [facility] 600 DO Work Phone: 12-27-2020 13:15-0400 Body height 187.96 cm Colten G Furlong Work Phone: [facility] 127 DO Work Phone: 12-27-2020 13:15-0400 Body mass index (BMI) [Ratio] 33.64 kg/m2 Colten G Furlong Work Phone: [facility] 127 DO Work Phone: 12-27-2020 13:15-0400 Body surface area Derived from formula 2.44 m2 Colten G Furlong Work Phone: [facility] 127 DO Work Phone: 12-27-2020 13:15-0400 Body weight 118.84 kg Colten G Furlong Work Phone: [facility] 127 DO Work Phone: 12-27-2020 13:15-0400 Diastolic blood pressure 74 mm[Hg] Colten G Furlong Work Phone: [facility] 127 DO Work Phone: 12-27-2020 13:15-0400 Heart rate 74 /min Colten G Furlong Work Phone: [facility] 127 DO Work Phone: 12-27-2020 13:15-0400 Systolic blood pressure 131 mm[Hg] Colten G Furlong Work Phone: [facility] 127 DO Work Phone: 12-23-2020 09:15-0400 0 1 Colten G Furlong Work Phone: [facility] [employer] [address] [place] Work Phone: Comment on above: [id number] 11-10-2019 13:25-0400 BP Diastolic 78 mm[Hg] [facility] , [place] 11-10-2019 13:25-0400 BP Systolic 140 mm[Hg] [facility] [place] 11-10-2019 13:25-0400 Pulse (Heart Rate) 78 /min [facility] 11-10-2019 13:25-0400 Pulse Oximetry 97 % [facility] , [place] 11-10-2019 13:25-0400 Respiratory Rate 16 /min [facility] 11-10-2019 12:43-0400 Body Temperature 97.2 [degF] [facility] 11-10-2019 10:06-0400 BMI (Body Mass Index) 35.31 kg/m2 [facility] [place] 11-10-2019 10:06-0400 Body [facility] [place] 11-10-2019 10:06-0400 Height 188 cm Liu Jackson [facility] , [place] 11-02-2019 11:08-0400 BMI (Body Mass Index) 35.31 kg/m2 [facility] 2 [facility] 11-02-2019 11:08-0400 Body Temperature 98.01 [degF] [facility] 2 [facility] 11-02-2019 11:08-0400 Body weight 124.74 kg [facility] 2 [facility] , [place] 11-02-2019 11:08-0400 BP Diastolic 94 mm[Hg] [facility] 2 [facility] , [place] 11-02-2019 11:08-0400 BP Systolic 147 mm[Hg] [address] , [place] 11-02-2019 11:08-0400 Height [address] , [place] 11-02-2019 11:08-0400 Pulse (Heart Rate) 83 /min [address] 11-02-2019 11:08-0400 Pulse Oximetry 99 % [address] , [place] 11-02-2019 11:08-0400 Respiratory Rate 18 /min [address] Encounters Encounter Date Encounter Type Care Provider Facility Start: 09-09-2023 End: 09-09-2023 ambulatory [facility] Start: 08-28-2023 End: 08-28-2023 ambulatory [facility] Start: 08-21-2023 End: 08-21-2023 Evaluation and management of inpatient DEBORAH Cheryl [facility] Start: 08-20-2023 End: 08-20-2023 ambulatory [facility] Start: 08-12-2023 End: 08-12-2023 ambulatory Christina Palm MD Facility:[facility] Start: 08-05-2023 End: 08-05-2023 ambulatory HADLEY [facility] Start: 07-26-2023 ambulatory [facility] Start: 07-11-2023 End: 07-11-2023 ambulatory DEBORAH G. JERONIMO [facility] Start: 07-04-2023 End: 07-04-2023 ambulatory DEBORAH Barnard JERONIMO [facility] Start: 06-17-2023 End: 06-17-2023 ambulatory Christina Palm MD Facility: [facility] Start: 05-01-2023 End: 05-02-2023 ambulatory [facility] Start: 05-01-2023 End: 05-01-2023 Office outpatient visit 15 minutes Hunter David [facility] MONTESSORI LEAD TEACHER-FOREST LAW AND POLICY PROFESSOR Work Phone: [facility] - [facility] Comment on above: Essential hypertensi on (Primary Dx); Chronic hip pain, left; Mixed hyperlipidemia; Enlarged prostate; Skin lesion of left lower limb Start: 05-01-2023 End: 05-01-2023 ambulatory [facility] Start: 04-01-2023 Refill [facility] MONTESSORI LEAD TEACHER-FOREST LAW AND POLICY PROFESSOR Work Phone: [facility] Comment on above: Migraine, unspecifie d, not intractable, without status migrainosus Start: 11-26-2022 Patient encounter procedure Colten Parra Work Phone: [facility] 250 DO Work Phone: Start: 07-31-2022 End: 08-01-2022 ambulatory NARENDRANATH LAKSHMIPATHY . Facility:[facility] Start: 07-31-2022 End: 08-01-2022 ambulatory AD GOTTLIEB . Facility:[facility] Start: 06-14-2022 End: 06-15-2022 ambulatory NARENDRANATH LAKSHMIPATHY . Facility:[facility] Start: 05-08-2022 ambulatory [facility] Start: 05-03-2022 End: 05-03-2022 ambulatory HUNTER ROBINS Facility:[facility] Start: 03-15-2022 End: 03-16-[address] COMPA AWAD . Facility:[facility] Start: 02-15-2022 Encounter for preprocedural laboratory examination DR COMPA AWAD . [facility] Start: 02-13-2022 End: 02-13-[address] COMPA AWAD . Facility:[facility] Start: 02-09-2022 End: 02-10-[address] COMPA AWAD . Facility:[facility] Start: 02-09-2022 End: 02-10-2022 Encounter for preprocedural laboratory examination DR COMPA AWAD . Facility:[facility] Start: 01-16-2022 End: 01-17-[address] COMPA AWAD . Facility:[facility] Start: 01-09-2022 End: 01-09-[address] COMPA AWAD . Facility:[facility] Start: 01-08-2022 Rx Renewal Colten Amosfloresita ng Work Phone: [facility] 250 DO Work Phone: Start: 01-08-2022 Rx Renewal Colten Amosfloresita ng Work Phone: [facility] 250 DO Work Phone: Start: 12-28-2021 End: 12-29-2021 ambulatory HUNTER ROBINS Facility:[facility]1 Start: 12-28-2021 End: 12-29-[address] COMPA AWAD . Facility:[facility] Start: 12-12-2021 End: 12-12-[address] COMPA AWAD . Facility: Start: 11-29-2021 Rx Renewal Colten Raymond Elisa ng Work Phone: [facility] 250 DO Work Phone: Start: 10-26-2021 End: 10-27-[address] COMPA AWAD . Facility:[facility] Start: 10-19-2021 Office outpatient vi sit 25 minutes Colten Raymond Amosfloresitahenry Work Phone: [facility] 250 DO Work Phone: Start: 08-23-2021 Message Colten Pérez ng Work Phone: [facility] 250 DO Work Phone: Start: 07-04-2021 Telephone encounter Megan garcia MD Work Phone: [facility] Comment on above: Schedule Surgery Start: 06-06-2021 End: 06-06-2021 Patient encounter procedure Megan Interiano MD Work Phone: [facility] Comment on above: Cervical spondylosis with myelopathy (Primary Dx); Loss of balance; Spinal stenosis of cervical region Start: 05-26-2021 Office outpatient vi sit 25 minutes Colten Amoslong Work Phone: [facility] 600 DO Work Phone: Start: 01-03-2021 Chart Update Colten Amoslo ng Work Phone: [facility] 127 DO Work Phone: Start: 12-27-2020 FUV, Provider: Kalie Lebron, Status: Pen, Time: 1:00 PM Colten Amoslong Work Phone: [facility] [place] Work Phone: Start: 12-27-2020 Office outpatient vi sit 25 minutes Colten Amoslong Work Phone: [facility] 127 DO Work Phone: Start: 12-23-2020 Patient encounter procedure Colten Amoslong Work Phone: [facility] [place] Work Phone: Start: 05-04-2020 End: 05-05-2020 Patient encounter procedure SHIVAPRAD [facility] Start: 05-04-2020 End: 05-04-2020 Subsequent hospital visit by physician Kash BERTRAND [facility] Start: 05-03-2020 End: 05-04-2020 Patient encounter procedure SHIVAPRASAD Paul[facility] Start: 05-03-2020 End: 05-03-2020 Subsequent hospital visit by physician Kash GARCÍA [place] [facility] Comment on above: Chest discomfort; Essential hypertension Start: 05-03-2020 End: 05-06-2020 Patient encounter procedure FLACO CARTER [facility] Start: 05-03-2020 End: 05-05-2020 Subsequent hospital visit by physician Alexa Shukla Xr Rm 1 [facility] Comment on above: Chest discomfort Start: 11-10-2019 End: 11-10-2019 Patient encounter procedure LIU JACKSON [facility] Start: 11-10-2019 End: 11-10-2019 Subsequent hospital visit by physician Liu Jackson Work Phone: [facility] Comment on above: Acute medial meniscu s tear of left knee, initial encounter (Primary Dx) Start: 11-06-2019 End: 11-11-2019 Patient encounter procedure ANAYA HORTON [facility] Start: 11-06-2019 End: 11-10-2019 Subsequent hospital visit by physician Alexa Covid19 Pat Screening Schedule [facility] Pre-Admit Testing Start: 11-02-2019 End: 11-06-2019 Patient encounter procedure EDINVAPRASAD Paul[facility] Start: 11-02-2019 End: 11-06-2019 Subsequent hospital visit by physician Mary Pat Rm 2 [facility] Pre-Admit Testing Start: 10-27-2019 End: 10-30-2019 Patient encounter procedure SHIVAPRASAD Paul[facility] Start: 10-27-2019 End: 10-29-2019 Subsequent hospital visit by physician Alexa Mri Rm 119 [facility] MRI Comment on above: Effusion of left kne e; Injury of left knee, subsequent encounter Start: 09-29-2019 End: 10-02-2019 Patient encounter procedure SHIVAPRASAD Paulina [facility] Start: 09-29-2019 End: 10-01-2019 Subsequent hospital visit by physician Alexa Xr Room 4 [facility] Comment on above: Acute pain of left k nee Start: 09-29-2019 End: 09-29-2019 Patient encounter procedure KASH GRIER [facility] Start: 09-28-2019 End: 09-28-2019 Subsequent hospital visit by physician Margarita [place]ARC[place]A [place] [facility] Comment on above: Gout of foot, unspec ified cause, unspecified chronicity, unspecified laterality Start: 12-09-2018 End: 12-09-2018 Subsequent hospital visit by physician Margarita [place]A [place] [facility] Comment on above: Gouty arthritis of r ight foot Start: 11-05-2018 End: 11-05-2018 Subsequent hospital visit by physician Margarita [place]A [place] [facility] Comment on above: Essential hypertensi on; Prostate cancer screening Procedures Date Procedure Procedure Detail Performing Clinician Start: 09-09-2023 Follow-up visit Follow-up DEBORAH Raymond JERONIMO Start: 05-01-2023 Adult depression scr eening assessment Hunter Robins MONTESSORI LEAD TEACHER-FOREST [employer] AND POLICY PROFESSOR Work Phone: Start: 12-14-2022 Adult depression scr eening assessment Hunter Robins MONTESSORI LEAD TEACHER-FOREST LAW AND POLICY PROFESSOR Work Phone: Start: 06-04-2021 Adult depression scr eening assessment Megan Interiano MD Work Phone: Start: 12-23-2020 Echocardiography Colten Parra Work Phone: Start: 05-04-2020 Assay of troponin quantitative Harlanprad [facility] Work Phone: Start: 05-03-2020 Radiologic exam ches t 2 views Harlanprad [facility] Work Phone: Start: 05-03-2020 Assay of thyroid sti mulating hormone tsh Harlanprasad [facility] Work Phone: Start: 05-03-2020 Blood count complete automated Harlanprad [facility] Work Phone: Start: 05-03-2020 Comprehensive metabo lic panel Harlanprasad [facility] Work Phone: Start: 05-03-2020 Lipid panel Howardsa d [facility] Work Phone: Start: 11-10-2019 [...] SH IVAPRASAD GURJIT Start: 11-07-2019 COVID-19 AMBULATORY EDIN VAPRASAD GURJIT Start: 11-06-2019 COVID-19 AMBULATORY Tramiane timothy Horton Work Phone: Start: 11-06-2019 COVID-19 SHIVAPRASA [...] interchangeably. Start: 11-05-2018 Blood count complete automated Harlansathish Gallardo Gurjit Work Phone: Start: 11-05-2018 Comprehensive metabo lic panel Harlansathish Gallardo Gurjit [employer] Phone: Start: 11-05-2018 Lipid panel Meridianda d Paulina Gurjit [employer] Phone: Start: 11-05-2018 PSA screening Howardtimothy Gallardo Gurjit [employer] Phone: Decompression of med trudy nerve Colten [...] colon Colon Cancer Screening 3 Year Cologuard [facility] Start: 05-03-2025 Lipid panel Lipid screen [facility] Work Phone: Start: 04-28-2025 Hepatitis C screening Hepatitis C sc danuta [facility] Work Phone: Comment on above: Postponed from 07/08 (Patient Refused) Start: 04-28-2025 HIV screening HIV screen Jolynn [facility] Work Phone: Comment on above: Postponed from 07/08 (Patient Refused) Start: 05-01-2024 Adult BMI Screening Adult BMI Screen [facility] Start: 05-01-2024 Depression Screening Depression Scre [facility] Start: 05-01-2024 Tobacco Screening Tobacco Screening [facility] Start: 12-23-2023 Tobacco Counseling Tobacco Counselin [facility] Comment on above: Postponed from 07/08 (Not Indicated) Start: 12-18-2023 Adult BMI Screening Adult BMI Screen [facility] Start: 12-18-2023 Tobacco Screening Tobacco Screening [facility] Start: 12-15-2023 Depression Screening Depression Scre [facility] Start: 11-06-2023 Lipid panel Lipid screen Jolynn [facility] [place] Start: 11-06-2023 Lipid screen Lipid screen [facility], [place] Start: 06-09-2023 Administration of varicella zoster vaccine Zoster (Shingles) Vaccine (1 of 2) [facility] Comment on above: Postponed from 07/08 (Patient Refused) Start: 06-09-2023 DTaP,Tdap and Td Vaccines (1 - Tdap) DTaP,Tdap and Td Vaccines (1 - Tdap) [facility] Comment on above: Postponed from 07/08 (Patient Refused) Start: 06-02-2023 Influenza vaccination Influenza Vacc ine [facility] Comment on above: Postponed from 11/02 (Patient Refused) Start: 05-01-2023 End: 05-01-2023 Patient encounter procedure 05/01/2023 10:30 AM EST Office Visit [facility] [address] [place] [address] Hunter Robins, MONTESSORI LEAD TEACHER-FOREST LAW AND POLICY PROFESSOR [address] [place] [address] [facility] Start: 07-13-2022 FUV, Provider: Leonid Figueredo, Status: Pen, Time: 9:00 AM FUV, Provider: Leonid Figueredo, Status: Pen, Time: 9:[address] [facility] 250 DO Work Phone: Start: 06-04-2022 Adult depression screening assessment DEPRESSION SCREENING [facility] Start: 11-02-2021 Influenza vaccination INFLUENZ A (Season Ended) [facility] Start: 10-27-2021 FUV, Provider: Leonid Figueredo, Status: Pen, Time: 2:50 PM FUV, Provider: Leonid Figueredo, Status: Pen, Time: 2:[address] [facility] 600 DO Work Phone: Start: 05-03-2021 Creatinine measurement Creatinine mo nitoring [employer] Phone: Start: 05-03-2021 Potassium monitoring Potassium monit oring [employer] Phone: Start: 04-28-2021 Influenza vaccination Flu vaccine (# 1) [employer] Phone: Comment on above: Postponed from 11/02 (Patient Refused) Start: 04-28-2021 Pneumococcal 0-64 ye ars Vaccine (1 of 1 - PPSV23) Pneumococcal 0-64 years Vaccine (1 of 1 - PPSV23) [employer] Phone: Comment on above: Postponed from 07/08 (Patient Refused) Start: 03-30-2021 FUV, Provider: Rachel Stacy, Status: Pen, Time: 4:30 PM FUV, Provider: Rachel Stacy, Status: Pen, Time: 4:30 PM [facility] 127 DO Work Phone: Start: 12-27-2020 FUV, Provider: Kalie Lebron, Status: Pen, Time: 1:00 PM FUV, Provider: Kalie Lebron, Status: Pen, Time: 1:00 PM [facility] [address] [place] Work Phone: Start: 11-01-2020 Creatinine measurement Creatinine mo [place]itoring [place] Start: 11-01-2020 Potassium monitoring Potassium monit [place]ing [place] Start: 10-05-2020 Shingles Vaccine (1 of 2) Shingles Vaccine (1 of 2) [place] Comment on above: Postponed from 07/08 (Patient Refused) Start: 2020 PROSTATE CANCER SCREENING DISCUSSION PROSTATE CANCER SCREENING DISCUSSION [facility] Start: 05-26-2020 End: 05-26-2020 Office Visit 05/26/2020 Office Visit Primary Care Margarita Maxwell MD [address] [place] [address] [phone] [facility] Start: 12-16-2019 End: 12-16-2019 Office Visit 12/16/2019 Office Visit Family Medicine Kash Grier MD [address] [place] [address] [phone] Kash Grier MD [facility] Start: 12-08-2019 End: 12-08-2019 Office Visit 12/08/2019 Office Visit Primary Care Patria Quiñones CPNP [address] [place] [address] [phone] [facility] Start: 11-23-2019 End: 11-23-2019 Office Visit 11/23/2019 Office Visit Orthopedic Surgery Liu Jackson MD [address] [address] [facility] Start: 11-10-2019 End: 11-10-2019 Hospital Encounter [facility] Comment on above: KNEE ARTHROSCOPY WIT H PARTIAL MEDICAL MENISECTOMY Start: 11-06-2019 End: 11-06-2019 Appointment 11/06/2019 Appointment Pre-Admission Testing [facility] Pre-Admit Testing Start: 11-06-2019 Creatinine measurement Creatinine mo [place]itoring [place] Start: 11-06-2019 Creatinine monitoring Creatinine mon [place]oring [place] Start: 11-06-2019 Potassium monitoring Potassium monit [place]ing [place] Start: 11-03-2019 Influenza vaccination Flu vaccine (# 1) [place] Start: 11-02-2019 End: 11-02-2019 Appointment 11/02/2019 Appointment Pre-Admission Testing [facility] Pre-Admit [facility] Start: 10-31-2019 DTaP/Tdap/Td vaccine (1 - Tdap) DTaP/Tdap/Td vaccine (1 - Tdap) [place] Comment on above: Postponed from 07/08 (Patient Refused) Start: 10-31-2019 HIV screen HIV screen [place], [place] Comment on above: Postponed from 07/08 (Patient Refused) Start: 10-31-2019 [facility] screening [facility] [place] [place] Comment on above: Postponed from 07/08 (Patient Refused) Start: 10-31-2019 Pneumococcal 0-64 ye ars Vaccine (1 of 1 - PPSV23) Pneumococcal 0-64 years Vaccine (1 of 1 - PPSV23) [place] Comment on above: Postponed from 07/08 (Patient Refused) Start: 10-06-2019 End: 10-06-2019 Office Visit 10/06/2019 Office Visit Primary Care Patria Quiñones CPNP [address] [place] [address] [phone] [facility] Start: 09-29-2019 End: 09-29-2019 Office Visit 09/29/2019 Office Visit Family Medicine Patria Quiñones CPNP [address] [place] [address] [phone] Kash Grier [facility] Start: 05-02-2019 Shingles Vaccine (1 of 2) Shingles Vaccine (1 of 2) [place] Comment on above: Postponed from 07/08 (Patient Refused) Start: 01-15-2019 End: 01-15-2019 Office Visit 01/15/2019 Office Visit Primary Care Margarita Maxwell MD [address] [place] [address] [phone] [facility] Start: 12-15-2018 End: 12-15-2018 Office Visit 12/15/2018 Office Visit Family Medicine Kash Grier MD [address] [place] [address] [phone] Kash Grier [facility] Start: 11-02-2018 Influenza vaccination Flu vaccine (# 1) [place] Start: 07-09-2015 Colon cancer screen colonoscopy Colon cancer screen colonoscopy [place] Start: 07-09-2015 Screening for malign ant neoplasm of colon Colon cancer screen colonoscopy [place] Start: 07-09-2015 Shingles Vaccine (1 of 2) Shingles Vaccine (1 of 2) [place] Start: 07-09-2015 SHINGRIX VACCINE (1 of 2) SHINGRIX VACCINE (1 of 2) [facility] Start: 2010 COLOGUARD (FIT-DNA) COLOGUARD (FIT-D NA) [facility] Start: 2010 Colonoscopy COLONOSCOPY [facility] Start: 2010 COLORECTAL CANCER SCREENING COLORECTAL CANCER SCREENING [facility] Start: [address] COLONOGRAPHY [facility] Start: 2010 DIABETES SCREEN DIABETES SCREEN [facility] Start: 2010 FECAL OCCULT BLOOD FECAL OCCULT BLOO D [facility] Start: 2010 SIGMOIDOSCOPY SIGMOIDOSCOPY [facility] Start: 2005 Diabetes screen Diabetes screen [place], [place] Start: 2005 Lipid screen Lipid screen [place], [place] Start: 2000 LIPID SCREEN LIPID SCREEN [facility] Start: 1984 DTaP/Tdap/Td vaccine (1 - Tdap) DTaP/Tdap/Td vaccine (1 - Tdap) [place] Start: 1984 Urine microalbumin profile DTAP,TDAP,TD (1 - Tdap) [facility] Start: 07-09-1983 Adult BMI Follow Up Plan Adult BMI Follow Up Plan [facility] Start: 07-09-1983 HEPATITIS C SCREENING HEPATITIS C SC REENING [facility] Start: 07-09-[address] HIV [address]CRE[address] HIV SCRE[address] [facility] Start: 1980 HIV screening [facility] [place] [place] Start: 07-09-1971 Pneumococcal 0-64 ye ars Vaccine (1 of 1 - PPSV23) Pneumococcal 0-64 years Vaccine (1 of 1 - PPSV23) [place] Start: 1970 COVID-19 VACCINE (1) COVID-19 VACCIN E (1) [facility] Start: 1965 Creatinine monitoring Creatinine mon [place]oring [place], [place] Start: 1965 Potassium monitoring Potassium monit [place]ing [place] End: 11-06-2019 COVID-19 COVID-19 Lab Routine One Time for 1 Occurrences starting 11/06/2019 until 11/06/2019 [place] Comment on above: One Time for 1 Occur rences starting 11/06/2019 until 11/06/2019 End: 07-06-2022 Ct cervical spine w/o contrast material CT CERVICAL SPINE WO IVCON Radiology Routine Spinal stenosis of cervical region 1 Occurrences starting 06/06/2021 until 07/06/2022 [facility] Work Phone: Comment on above: 1 Occurrences starti ng 06/06/2021 until 07/06/2022 Oxygen therapy [[facility]] Initiate Oxygen Therapy Protocol Respiratory Care Routine Daily until discontinued starting 11/10/2019 [place] Comment on above: Daily until disconti nued starting 11/10/2019 Phase I & II - meter ed glucose Phase I & II - metered glucose Point of Care Testing Routine As Needed until discontinued starting 11/10/2019 [place] Comment on above: As Needed until disc ontinued starting 11/10/2019 End: 07-06-2022 Radex spine cervical 4 or 5 views XR CERV OTHER 4V AP/LAT/FLX/EXT Radiology Routine Cervical spondylosis with myelopathy 1 Occurrences starting 06/06/2021 until 07/06/2022 [facility] Work Phone: Comment on above: 1 Occurrences starti ng 06/06/2021 until 07/06/2022 Immunizations Immunization Date Immunization Notes Care Provider Clem ortega 11-04-2019 influenza, seasonal, injectable Colten G Furlong Work Phone: [facility] [address] [place] Work Phone: 11-03-2019 influenza, seasonal, injectable Hunter Julienne MONTESSORI LEAD TEACHER-FOREST LAW AND POLICY PROFESSOR Work Phone: [facility] 11-03-2019 influenza virus vaccine, unspecified formulation Hunter Julienne MONTESSORI LEAD TEACHER-FOREST LAW AND POLICY PROFESSOR Work Phone: [facility] 01-21-2019 influenza virus vaccine, unspecified formulation [address] 01-21-2019 influenza, injectabl e, quadrivalent, contains preservative Shivapras[place] 01-02-2019 influenza, injectabl e, quadrivalent, contains preservative Colten G Furlong [facility] DO Work Phone: 12-02-2016 influenza, injectabl e, quadrivalent, preservative free [address] Payers Date Payer Category Payer Unknown [employer] SS PPO [id number] 2021-Present [phone] [address] [place] [address] PPO [id number] 2018 Unknown [place] P PO xxxxxxxxxxxx 2018-Present [address] [place] [address] xxxxxxxxxxxx [id number] 2018 Unknown [place] P PO [id number] 2018-Present [address] [place] [address] [id number] .[id number] 2015 Unknown [id number] 1.2.840.262649.1.13.239.2.7.3 .265725.315 2015 Unknown 1965 Unknown [id number] 2.16.840.1.419232.3.579.2.175 1965 Unknown [id number] 2.16.840.1.191639.3.579.2.175 1965 Unknown [id number] 2.16.840.1.368538.3.579.2.175 1965 Unknown [id number] 2.16.840.1.243797.3.579.2.176 1965 Unknown [id number] 2.16.840.1.980324.3.579.2.176 1965 Unknown [id number] 2.16.840.1.578150.3.579.2.176 1965 Unknown [id number] 2.16.840.1.275155.3.579.2.176 1965 Unknown [id number] 2.16.840.1.833990.3.579.2.176 1965 Unknown [id number] 2.16.840.1.729204.3.579.2.176 1965 Unknown [id number] 2.16.840.1.980597.3.579.2.176 1965 Unknown [id number] 2.16.840.1.821111.3.579.2.176 1965 Unknown [id number] 2.16.840.1.341228.3.579.2.176 1965 Unknown [id number] 2.16.840.1.217849.3.579.2.593 1965 Unknown [id number] 2.16.840.1.522867.3.579.2.593 1965 Unknown [id number] 2.16.840.1.840958.3.579.2.593 1965 Unknown [id number] 2.16.840.1.475766.3.579.2.593 1965 Unknown [id number] 2.16.840.1.674946.3.579.2.593 1965 Unknown [id number] 2.16.840.1.105033.3.579.2.593 1965 Unknown [id number] 2.16.840.1.293526.3.579.2.593 1965 Unknown [id number] 2.16.840.1.784764.3.579.2.593 1965 Unknown [id number] 2.16.840.1.061140.3.579.2.593 1965 Unknown [id number] 2.16.840.1.191498.3.579.2.593 1965 Unknown [id number] 2.16.840.1.992581.3.579.2.593 1965 Unknown [id number] 2.16.840.1.212990.3.579.2.593 1965 Unknown [id number] 2.16.840.1.855714.3.579.2.593 1965 Unknown [id number] 2.16.840.1.566476.3.579.2.128 6 1965 Unknown [id number] 2.16.840.1.889773.3.579.2.128 6 1965 Unknown [id number] 2.16.840.1.189173.3.579.2.128 6 1965 Unknown [id number] 2.16.840.1.454816.3.579.2.128 6 1965 Unknown [id number] 2.16.840.1.897307.3.579.2.128 6 1965 Unknown [id number] 2.16.840.1.349881.3.579.2.128 6 1965 Unknown [id number] 2.16.840.1.292699.3.579.2.128 6 1965 Unknown [id number] 2.16.840.1.451419.3.579.2.196 1965 Unknown [id number] 2.16.840.1.906828.3.579.2.196 1965 Unknown [id number] 2.16.840.1.289382.3.579.2.124 4 1965 Unknown [id number] 2.16.840.1.417895.3.579.2.128 6 1965 Unknown [id number] 2.16.840.1.697786.3.579.2.128 6 1965 Unknown [id number] 2.16.840.1.080118.3.579.2.128 6 1959 Unknown [id number] 1959 Unknown [id number] Social History Date Type Detail Facility Start: 03-04-1978 End: 12-07-2022 Tobacco smoking status INIS Current every day smoker [facility] Start: 12-08-2018 End: 04-14-2020 Cigarettes smoked current (pack per day) - Reported [facility] Comment on above: 1 ppd; Start: 12-08-2018 End: 04-14-2020 Alcohol intake Yes [facility] Start: 1965 Sex Assigned At Not on file [place], [place] Start: 09-16-2019 End: 12-07-2022 Tobacco use and exposure [facility] Start: 09-16-2019 End: 05-01-2023 Alcohol intake [facility] Exposure to SARS-CoV -2 (event) Not sure [facility] Start: 11-02-2019 Alcohol Comment very rare [facility] Start: 06-06-2021 Alcohol intake Ex-drinker (finding) [facility] Start: 1965 Sex Assigned At Male C [facility] Start: 03-04-1978 History of tobacco use Cigarette Smo ker [facility] Adolescent depressio n screening assessment 5 [facility] Start: 03-23-2022 Alcohol Comment rarely [facility] Goals Date Patient Goal Desired Activity /State Personal health goal Comment on above: Formatting of this n ote might be different from the original. Evaluation of progress towards goal: safe transition to home with support of pt's and resumption with outpatient PT. Clinical Notes 11-18-2020 to 05-01-2023 [facility] 05/01/2023 10:30 AM ESTTelephone Encounter - Hunter Robins, M[employer]ESSORI [facility] - 04/01/2023 12:18 AM ESTTelephone Encounter - Hunter Robins MONTESSORI [facility] - 04/01/2023 12:18 AM EST Note Date & Type Note Facility 05-01-2023 History of Present illness Narrative Images from the original note were not included. [address] [place] [address] Patient: Ashok Doss Date of : 1965 [...] was normal. Patient will like to see [facility]. Patient also has a new skin [...] History: Diagnosis Date DVT (deep venous thrombosis) ([facility]) x2 Headache Hyperlipidemia [place] Past Surgical History: Procedure Laterality Date ANKLE SURGERY Left CARDIAC CATHETERIZATION CARPAL TUNNEL RELEASE Right COLONOSCOPY N/A 12/07/2022 Performed by Nasir Richey DO at [facility] FRACTURE SURGERY Right knee, tibia KNEE [...] BMI 38.49 kg/m Physical Exam Vitals reviewed. Philosophy Specialist present: here w/ spouse. Constitutional: Appearance: Normal [...] KEEN APRN-CNP 05/02/232050 documented in this encounter [facility] 04-01-2023 Miscellaneous Notes Due for either his well visit or CV - please set up documented in this encounter [facility] 01-29-2024 Telephone encounter Note Due for either his well visit or CV - please set up [facility] 07-31-2022 Note CONSULTATION CONSULTATION DATE: 07/31/2022 [...] mg pills, two pills daily p.r.n. and Columbus 5 mg b.i.d. p.r.n. As part of providing excellent, safe, comprehensive care, the following was completed at our patient's visit: 1. A medication reconciliation and review to ensure accurate knowledge of current/active medications, including asking our patients to inform us about any ffte-lqh-lexjodj medications or herbal remedies/nutritional supplements/alternative remedies. 2. [...] options with their primary care provider. [facility] 06-14-2022 Note CONSULTATION CONSULTATION DATE: 06/14/2022 [...] sooner if needed. We did refill his Columbus. He takes 5 mg pills, one pill b.i.d. He did report this medicine does improve his quality of life, level of function and sleep pattern. As part of providing excellent, safe, comprehensive care, the following was completed at our patient's visit: 1. A medication reconciliation and review to ensure accurate knowledge of current/active medications, including asking our patients to inform us about any umii-wbx-bmdqaae medications or herbal remedies/nutritional supplements/alternative remedies. 2. [...] options with their primary care provider. [facility] 05-08-2022 Note Subjective Patient ID: Ashko Doss is a 56 y.o. male who presents as a new patient referral from [facility] in [place] for acute deep right calf/soleal muscle vein [...] past 36 hour(s)). No follow-ups on file. [facility] 03-15-2022 Note CONSULTATION CONSULTATION DATE: 03/15/2022 HISTORY [...] with his leg elevated. Current medications include Columbus 5/325 b.i.d. and tizanidine p.r.n. Patient's REVIEW [...] postoperatively Orthopedics plans on keeping him on Columbus 5/325 b.i.d. I do worry that his post-op pain will not be adequately relieved with Columbus, and I did encourage the patient to talk with his Orthopedics' office to discuss this. We will see the patient in the office in three months' time unless otherwise indicated. [facility] 01-16-2022 Note CONSULTATION CONSULTATION DATE: 01/16/2022 [...] recently came off. The patient currently takes Columbus 5/325 daily, tizanidine 4 mg q.h.s. Activities aggravate the patient's pain. The patient reports standing too long, walking too long, ADLs aggravate the pain. Heat mitigates the patient's pain. Pushing, pulling, lifting aggravate the pain. Laying down mitigates the pain. The patient takes Columbus 5/325 one tablet p.o. daily. He finds [...] left foot. PLAN: We will increase the Columbus to 5/325 b.i.d. The patient will also start aquatic program. We will schedule the patient for a rhizotomy, radiofrequency ablation of the dorsal median rami at the level of L2, 3 and L4, 5; given that the patient has had successful medial branch blocks on two separate occasions. CC: Elisabeth Galvan NP [facility] 12-28-2021 Note CONSULTATION CONSULTATION DATE: 12/28/2021 [...] increased stiffness in his back. Medications include Columbus 5/325 q. day p.r.n. and Tizanidine 4 [...] followed up in the clinic thereafter. [facility] 10-26-2021 Note CONSULTATION CONSULTATION DATE: 10/26/2021 [...] 18, which is one year since his [place]. He has not been able to gain approval to be off the Brilinta for interventional procedures. He is interested, however, in moving forward with procedures once the Brilinta is discontinued. He has seen Neurosurgery at the [facility] and they would like to do [...] discontinue Tylenol #3 and start him on Columbus 5/325 daily p.r.n. Vitamin importance and nutrition were discussed as well. Patient agrees to move forward with this plan and be followed up in the clinic post his #1 procedure. [facility] 07-04-2021 Miscellaneous Notes Neuro SPINE CARE COORDINATION QUICK NOTE Called patient to discuss scheduling for surgery. States he is not ready to schedule but will call back when he is. Also advised it best for recovery to work on quitting smoking. documented in this encounter [facility] 06-06-2021 Note HNO ID: [id number] Author: Megan Interiano MD Service: ? Author Type: Physician Type: Progress Notes Filed: 06/15/2021 4:22 PM Note Text: SPINE SURGERY NEW PATIENT PCP: No primary care provider on file. REFERRING PROVIDER: Ashia Bermeo APRN. MARTY SUBJECTIVE HISTORY OF PRESENT ILLNESS: Ashok Doss is a 55 year old male presenting alone. CHIEF COMPLAINT: mid back pain, LE weakness Previously seen by Ashia Bermeo CNP regarding subjective weakness in the arms and legs. Hx of previous lumbar laminectomy approx. 20 years ago in [place]. Did well post-op with resolution of sciatica. Has had chronic low back pain. Over the last 6 months he describes episodes of his legs feeling like rubber . Would occur randomly. Over the last 3 months he's started to experience this in the arms as well. 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 [facility] 06-06-2021 History of Present illness [...] lumbar laminectomy approx. 20 years ago in [place]. Did well post-op with resolution of sciatica. Has had chronic low back pain. Over the last 6 months he describes episodes of his legs feeling like rubber . Would occur randomly. Over the last 3 months he's started to experience this in the arms as well. 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 I examined the patient and evaluated all available films and pertinent documents. We discussed the case and I agree with the plans as outlined in this note. As above, Ashok Doss is a 55 year old male with history of lumbar laminectomy about 20 years ago in [place] who presents for evaluation of mid back pain and LE weakness. Over the last 6 months he describes episodes of his legs feeling like rubber . Would occur randomly. Over the last 3 months he's started to experience this in the arms as well. 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 Staff note: 1. PCSM, plan for C4-T2 fusion and decompression, RBAEO reviewed in comprehensive detail, all questions answered to stated satisfaction Megan Interiano MD documented in this encounter [facility] 04-24-2021 Note HNO ID: [id number] Author: Ashia Bermeo APRN.FOREST LAW AND POLICY PROFESSOR Service: ? Author Type: Nurse Practitioner Type: [...] lumbar laminectomy approx. 20 years ago in [place]. Did well post-op with resolution of sciatica. [...] [facility] ANTIPLATELET OR ANTICOAGULATION STATUS: Yes Previous [place] PREVIOUS SPINAL SURGERY: SURGERY #1: L5-S1 Laminectomy in [place] approx. 20 years ago There is no [...] vision or hearing. CARDIOVASCULAR: Hypertension and previous [place] RESPIRATORY: Denies SOB, sputum production, and hemoptysis. [...] day PHQ-9 Levels: (more content not included)... [facility] 04-14-2021 Note HNO ID: [id number] Author: Sonja Moser PA-C Service: ? Author Type: Physician Network Support Engineer Type: Progress Notes Filed: 04/14/2021 3:29 PM Note Text: Per Triage: Ashok Doss is a 55 year old male that requests evaluation of spine. Per review, they have symptoms of back pain, neck pain, weakness, tingling in legs. Prior spine surgery: Several years ago (20) at a [place] [facility] CMT: Muscle relaxer Studies (Reports unless indicated) MRI thoracic spine report 12/30/21: Multilevel disc herniation greatest at T6-7, T7-8 where there is moderate central canal stenosis Cervical xrays report 03/02/21: Moderate -marked degenerative changes at C5-6 and C6-7 Disposition: Based on triage, recommend patient be scheduled with surgical [facility] for eval. Potential need for cervical MRI pending eval. Please make sure patient imaging is available for review. Sonja Moser PA-C [facility] 04-12-2021 Note HNO ID: [id number] Author: Macario Garcia Service: ? Author Type: ? Type: Progress Notes Filed: 04/14/2021 3:29 PM Note Text: Patient name: Ashok oDss Are you being referred by a [facility] Provider or Pain Management Provider at [facility]? No If answer is YES please [...] the facility where the MRI/CT/myelogram was completed: [facility] Address: [address] [place] [id number] MRI/CT/myelogram viewable in Epic: No If not, please provide [phone] to fax in imaging reports for review. [...] completed: Several years ago (20) at a [facility] Could not recall any additional information at the time of the call Additional Comments [phone] [facility] 11-20-2020 Note Send Summary: Discharge Summary Providers: Provider RoleProvider Name PrimaryRequired, No Pcp ConsultingJosé Miguel Posey ConsultingRachel Stacy ReferringRequired, No Pcp AttendingRachel Stacy Note Recipients: Rachel Stacy MD - [id number] [preferred] Required, No PcpMD Discharge Summary: Admission Date: .18-Nov-2020 18:57:00 Discharge Date: 20-Nov-2020 Attending Physician at Discharge: Rachel Stacy Admission Reason: Inferior Wall STEMI(1) Final Discharge Diagnoses: Acute inferior ST elevation NJ. Procedures: Left heart Catheterization, selective coronary angiography, left ventriculography, LV ao pullback, PCI and drug-eluting stent to the distal mid RCA, selective right common femoral angiography, Angio-Seal deployment. Condition at Discharge: stable Disposition at Discharge: Home Vital Signs: T PRBPSpO2 [id number]/7494% Date/Time11/20 11: 11: 20:: 11:20 Range(36.8C - 37C ) (70 - 87 ) (17 - 28 ) (132 - 165 )/ (66 - 82 ) (94% - 99% ) Highest temp of 37 C was recorded at 11/20 7:45 Date: Weight/Scale Type:Height: 18-Nov-2020 23:26080.7 kg 188 cm Physical Exam: Patient is [...] hour away, and will be seeking a automobile body repair chief closer to home, but will be seen at [facility] with me within 1 week to [...] laboratory results: Troponin I, Serum Trending View [id number] 21:03:00 19-Nov-2020 13:00:00 19-Nov-2020 05:23:00 19-Nov-2020 00:54:00 [...] (EUA) and has been verified by [facility]. This test is only authorized for the duration (more content not included)... [facility] 11-18-2020 Note History of Present I llness: [...] heparin, and was transferred to [facility] emergency department. Code koby called was alerted. Patient was taken to [...] 1 mg IV, and Bairon-Synephrine, with prompt anabaptism of heart rate and blood pressure. At [...] Thank you, Sincerely, Rachel Stacy MD [facility] Comorbidities: Comorbidites: Comorbid Conditionshypertension Allergies: Allergy [...] Last Updated: 18-Nov-2020 20:21 by Rachel Stacy) [facility] 11-18-2020 Chief complaint Narrative - Reported ASHOK DOSS is being seen for a cardiovascular evaluation . testing results.ASHOK DOSS is a 55 year old male that presents to the [facility] with his for follow-up on testing. 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 Stacy and was added to my schedule today. He has a recent history of an NJ with cardiac catheterization 11/18/2020 with PCI and [...] see if cardiac rehabilitation is possible at [facility] that is closest to his home. [...] MPHR.Assessment:1. CAD; with acute inferior ST elevation NJ requiring cardiac catheterization 11/18/2020 with PCI and [...] software was used to prepare this document. [facility] 127 DO Work Phone: Evaluation note Diagnosis Cervical spondylosis with myelopathy- Primary Loss of balance Other symptoms involving nervous and musculoskeletal systems Spinal stenosis of cervical region Spinal stenosis in cervical region [facility] Diagnosis Migraine, unspecified, not intractable, without status migrainosus documented in [facility] Diagnosis Essential hypertension- Primary Unspecified essential hypertension Chronic hip pain, left Mixed hyperlipidemia Enlarged prostate Hypertrophy of prostate without urinary obstruction and other lower urinary tract symptoms (LUTS) Skin lesion of left lower limb Unspecified disorder of skin and subcutaneous tissue [facility] N[facility]* Patient is seen by me for the first time. 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 He was taken to [place] where he had a coronary intervention and [...] the merits of lifestyle modification and exercise. -[facility] 600 DO Work Phone: History of Present [...] in order to furtherimprove his hypertension and lipids.-[facility] 250 DO Work Phone: InstructionsNot on filedocumented in this encounter [facility] SystemInstructionsNot on filedocumented in this encounter [facility] SystemInstructionsNot on filedocumented in this encounter [facility] SystemReason for referral (narrative)* Consultation (Routine) - Pending Review Specialty Diagnoses / Procedures Referred By Contac t Referred To Contact Dermatology Diagnoses Skin lesion of left lower limb Hunter Robins MONTESSORI LEAD TEACHER-FOREST LAW AND POLICY PROFESSOR [address] [place] [address] Silviano Burroughs, DO [address] [place] [address] Referral ID Status Reason Start Date Expiration Date Visits Requested Visits Authorized [id number] Pending Review Specialty Services Required 05/01/2023 04/30/2024 1 1 Electronically signed by Hunter Robins [facility] at 05/01/2023 11:02 AM EST * Consultation (Routine) - Pending Review Specialty Diagnoses / Procedures Referred By Contac t Referred To Contact Urology Diagnoses Enlarged prostate Hunter Robins MONTESSORI LEAD TEACHER-FOREST LAW AND POLICY PROFESSOR [address] [place] [address] Deborah Jeronimo MD [address] [place] [address] [place] [address] Referral ID Status Reason Start Date Expiration Date Visits Requested Visits Authorized [id number] Pending Review Specialty Services Required 05/01/2023 04/30/2024 1 1 Electronically signed by Hunter Robins [facility] at 05/01/2023 10:47 AM EST * Misc (Routine) - Pending Review Specialty Diagnoses / Procedures Referred By Contac t Referred To Contact Diagnoses Chronic hip pain, left Procedures Disability/Handicap Hunter Hunter MONTESSORI LEAD TEACHER-[employer]EST [employer] AND POLICY PROFESSOR [address] [place] [address] Referral ID Status Reason Start Date Expiration Date V isits Requested Visits Authorized [id number] Pending Review 05/01/2023 04/30/[address] [facility] Assessments Diagnosis Gouty arthritis of right [...] FoundDocuments on File Type Date Recorded Patient Bio Medical Technician Expl anation Advance Directives and Living Will Power of Manager Security Documents on File Type Date Recorded Patient Bio Medical Technician Expl anation ACP-Advance Directive ACP-Power of Manager Security Documents on File Type Date Recorded Patient Bio Medical Technician Expl anation ACP-Advance Directive ACP-Power of Manager Security Latest Code Status on File Code Status [...] WO CONTRAST Patria Quiñones, CPNP [address] [place] [address] Specialty Diagnoses / Procedures Referred By Contac t Referred To Contact CT IMAGING Diagnoses Spinal stenosis of cervical region Procedures CT CERVICAL SPINE WO IVCON CT CERVICAL SPINE W/O CONTRAST MATERIAL Megan Interiano MD [address] [place] [address] Ct Imaging Referral ID Status Reason Start Date Expiration Date Visits Requested Visits Authorized [id number] Authorized Auto-Generat ed Referral 06/06/2021 07/06/2022 1 1 Specialty Diagnoses / Procedures Referred By Contac t Referred To Contact XR IMAGING Diagnoses Cervical spondylosis with myelopathy Procedures XR CERV OTHER 4V AP/LAT/FLX/EXT RADEX SPINE CERVICAL 4 OR 5 VIEWS Vivien Lawton PA-C [address] [place] [address] Xr Imaging Referral ID Status Reason Start Date Expiration Date Visits Requested Visits Authorized [id number] Authorized Auto-Generat ed Referral 06/06/2021 07/06/2022 1 [...] hospital. The Day of Surgery: Arrive at [facility] Entrance at the time directed by your surgeon and check in at the desk. If you have a living will or healthcare power of civil attorney, please bring a copy. You will be taken to the pre-op holding area where you will be prepared for surgery. A physical assessment will be performed by a nurse practitioner or warehouse production worker. Your IV will be started and [...] Instructions* Irish Meehan RN - 11/10/2019 [facility] Dr. Liu Jackson M.D. [phone] POST OPERATIVE DISCHARGE INSTRUCTIONS KNEE ARTHROSCOPY 1. Follow-up in office seven to ten days after surgery. Call for appointment if not already made. ([phone]). 2. Take pain medication as ordered. 3. [...] WO CONTRAST Patria Quiñones CPNP [address] [place] [address] Status Reason Specialty Diagnoses / Procedures Referre d By Contact Referred To Contact Diagnoses Acute medial meniscus tear of left knee MEDIAL MENISCUS TEAR LEFT KNEE Procedures NJ KNEE SCOPE,DIAGNOSTIC KNEE ARTHROSCOPY WITH PARTIAL MEDICAL MENISECTOMY Liu Jackson MD [address] [place] [address] [facility] Reason Comments New Patient Reason Comments [...] section and content) DATE CREATED AUTHOR 05/06/2020 [facility] DATE CREATED AUTHOR AUTHOR'S ORGANIZ ATION 05/07/2020 [facility] DATE CREATED AUTHOR AUTHOR'S ORGANIZ ATION 12/26/2020 [facility] DATE CREATED AUTHOR AUTHOR'S ORGANIZ ATION 07/06/2021 [facility] DATE CREATED AUTHOR AUTHOR'S ORGANIZ ATION 10/26/2021 [facility] DATE CREATED AUTHOR AUTHOR'S ORGANIZ ATION 08/10/2022 [facility] DATE CREATED AUTHOR AUTHOR'S ORGANIZ ATION 08/24/2022 [facility] DATE CREATED AUTHOR AUTHOR'S ORGANIZ ATION 08/01/2023 [facility] DATE CREATED AUTHOR AUTHOR'S ORGANIZ ATION 08/23/2023 [facility] DATE CREATED AUTHOR AUTHOR'S ORGANIZ ATION 08/25/2023 [facility] DATE CREATED AUTHOR AUTHOR'S ORGANIZ ATION 08/30/2023 [facility] DATE CREATED AUTHOR AUTHOR'S ORGANIZ ATION 09/16/2023 [facility] Comments (unrecognize d section and content) In the event this informatio n is protected by the Federal Confidentiality of Alcohol and Drug Abuse Patient Records regulations: The Federal rules restrict any use of the information to criminally investigate or prosecute any alcohol or drug abuse patient.[facility] the event this information is protected by the Federal Confidentiality of Alcohol and Drug Abuse Patient Records regulations: The Federal rules restrict any use of the information to criminally investigate or prosecute any alcohol or drug abuse patient.[facility] Care Teams (unrecognized sec tion and content) Evening Sitter Relationship Specialty Start Date End Date Colten Parra DO [address] [place] [address] PCP - General Family Medicine 04/03/22 Evening Sitter Relationship Specialty Start Date End Date Colten Parra DO [address] [place] [address] PCP - General Family Medicine 04/03/22 Evening Sitter Relationship Specialty Start Date End Date Colten Parra DO [address] [place] [address] PCP - General Family Medicine 04/03/22 FOR [...] BE BASED ON THE PRIMARY CLINICAL RECORDS. [employer] provides no warranty or guarantee of the accuracy or completeness of information in this document.
[2023-10-22 07:53] VITALS: BP 171/97; PULSE 69; TEMP 36.2; O2SAT 95
[2023-10-22 08:25] VITALS: BP 136/70; PULSE 71; O2SAT 98
[2023-10-22 08:26] VITALS: BP 136/60; PULSE 72; O2SAT 98
[2023-10-22] MEDS: BUPIVACAINE HCL 0.25% PF 25 MG/10 ML VIAL 4 ML INJ (08:29)
[2023-10-22] MEDS: IOHEXOL 240 MG/ML - 10 ML VIAL 24 MG INJ (08:29)
[2023-10-22] MEDS: METHYLPREDNISOLONE ACETATE 40 MG/ML VIAL INJ (08:30)
--- NOTE | 2023-10-22 09:05 | P.ON_ITS ---
Date of procedure: 10/22/23 Pre-op diagnosis: Left hip oseoarthritis Post-op diagnosis: same as pre-op Procedure: Procedure: Left Hip joint injection Pre & postoperative diagnosis: pain secondary to osteoarthritis. Immediate complications none. Anesthesia: 2% lidocaine plain for skin wheal. After informed consent was obtained, patient brought to the OR placed in the supine position. Skin overlying the area was prepped and draped using betadine. 25-gauge 1/2 inch needle was used for skin wheal over the medial aspect of the joint identified under fluoroscopy. Omnipaque dye was used to confirm needle tip placement within the hip joint space 0.5 mL use of the injection. Subsequen tly Depomedrol 40mg and Marcaine 0.25% 4ml was injected into the space. No indication of intravascular or intraneuronal needle tip placement or injection was noted post procedure. The needle was removed, patient transferred to Recovery room in stable condition to discharged home after meeting criteria. Anesthesia: Local Surgeon: Elma Whalen Condition: stable
== END 2023-10-22 08:35 | disposition home or self-care (01) ==
LOC: SURGOUT 07:42
PROVIDERS: PCP Nurse Practitioner Family; Visit Provider Anesthesiology Pain Medicine
DX: M16.12 Unilateral primary osteoarthritis, left hip (principal)
CPT/HCPCS: 20610; 77002; J0665; J1010; Q9966

== ENCOUNTER 2023-10-23 14:17 | Outpatient (OUT) | payer BC, SELFPAY ==
--- NOTE | 2023-10-23 15:16 | P.CN_ITS ---
Consult Note: HPI Data of Consult Patient: known to practice within the last 3 years Consult date: 09/27/22 Requesting Physician: Priscilla Elkins NP Primary Care Provider: HUNTER ROBINS Consult Narrative Reason for consult: f/u Narrative: Patient is here for f/u of chronic low back and left hip pain. Pain is in the left hip and low back No new sensorimotor sx or bowel or bladder issues. No adverse medication SE. Medications assist patient with better ability to perform ADLs. He has seen orthopedics for his knee and they advised he would need total hip done left. He wants to get surgery done. Currently working with [employer] and doo to get his hip surgery covered. Today rating pain 4/10 in left hip and low back, pain in left low back and hip increases to 6/10 with standing and activity, decreases with sitting. Repeat bilateral L4-5 L5-S1 facet RFA providing >75% improvement in axial low back pain ongoing per pt. Continues to find functional improvement and pain relief from norco 5-325mg 1 tab BID PRN and baclofen 10mg TID PRN, denies side effects. Patient recently underwent left hip injection with 70% improvement ongoing. patient has benefitted from left SIJ injections and would like to repeat as his pain is worsening and he is going to [place] from 11[place]11[place]23-11/22/23 and plans to do a lot of standing and walking. cc:: CC: Priscilla Elkins NP Review of Systems ROS Status of ROS 10 or more systems reviewed and unremark able except as noted in history and below Musculoskeletal Reports: back pain and joint pain PFSH PFSH Medical History (Updated 07/17/23 @ 10:05 by Priscilla Elkins NP) Osteoarthritis ?M19.90 - Unspecified osteoarthritis, unspecified site (ICD-10) Enlarged prostate ?N40.0 - Benign prostatic hyperplasia without lower urinary tract symptoms (ICD-10) Obstructive sleep apnea on CPAP ?G47.33 - Obstructive sleep apnea (adult) (pediatric) (ICD-10) Sleep apnea ?G47.30 - Sleep apnea, unspecified (ICD-10) History of heart attack ?I25.2 - Old myocardial infarction (ICD-10) Surgical History History of cardiac cath ?Z98.890 - Other specified postprocedural states (ICD-10) History of surgery on lower extremity ?Z98.890 - Other specified postprocedural states (ICD-10) Meds Home Medications and Allergies Home Medications ?Medication ?Instructions ?Recorded ?Confirmed ?Type atorvastatin 80 mg tablet 80 mg PO BEDTIME 08/14/22 10/22/23 History baclofen 10 mg tablet 10 mg PO TID PRN muscle spasm 08/14/22 10/22/23 History divalproex 125 mg tablet,delayed 125 mg PO TID 08/14/22 10/22/23 History release lisinopril 20 1 tab PO DAILY 08/14/22 10/22/23 History mg-hydrochlorothiazide 12.5 mg tablet metoprolol tartrate 25 mg tablet 25 mg PO BID 08/14/22 10/22/23 History hydrocodone 5 mg-acetaminophen 325 1 tab PO BID PRN pain #80 tabs 05/15/23 10/22/23 Rx mg tablet tamsulosin 0.4 mg capsule (Flomax) 0.4 mg PO DAILY 10/22/23 10/22/23 History Allergies Allergy/AdvReac Type Severity Reaction Status Date / Time amoxicillin AdvReac Mild Nausea Verified 10/22/23 08:11 prednisone AdvReac Mild Nausea Verified 10/22/23 08:11 Exam Constitutional Documenting provider has reviewed patient's vital signs: yes Common normals: no apparent distress, oriented x3, healthy appearing, alert and well nourished General appearance: cooperative Orientation/consciousness: Yes awake, Yes oriented to person, Yes oriented to place and Yes oriented to time [facility] Common normals: normocephalic, hearing grossly normal bilaterally and moist oral mucous membranes Head and scalp: normocephalic Eye Common normals: PERRL Pupil: PERRL Neck & C-Spine Common normals: full ROM General: normal visual inspection Chest Common normals: inspection of chest normal Respiratory Common normals: normal respiratory effort, no retractions and no use of accessory muscles Effort & inspection: able to speak in complete sentences and symmetric chest movement Back & Pelvis Lumbar spine/lower back: normal to inspection, lumbar ROM normal and straight leg raise negative bilaterally Sacroiliac joints: SI joint(s) abnormal Other: left SIJ positive cathie(patricks), gaenslens, thigh thrust, compression test Extremity Common normals: normal capillary refill and no pedal edema Other: Positive internal and external rotation of left hip muscle strength 5/5 bilat LE with intact sensation Neuro Common normals: oriented x3, CN's II-XII intact bilaterally, moves all extremities, no focal motor deficits, no sensory deficits noted and deep tendon reflexes 2+ bilaterally Sensorium/orientation: alert Gait (neuro): assistive device used cane Motor exam: strength 5/5 throughout and no movement abnormalities noted Psych Common normals: mental status grossly normal, thought process normal, cooperative, affect normal, speech normal and activity/motor behavior normal Speech: normal speech Thought process: normal thought process Results Additional Findings Additional findings: If on a controlled substance or opioids, I have checked an OARRS report on this patient and there are no aberrancies noted in the prescribing history.??If on a controlled substance or opioid a drug screen was completed and reviewed within the last year, and if there has not been a drug screen completed we ordered one today to monitor higher risk, state monitored pain medication use. As part of providing excellent, safe, comprehensive care, the following was completed at our patient's visit: 1. A medication reconciliation and review to ensure accurate knowledge of current/active medications, including asking our patients to inform us about any bcjt-gfh-rfzuzqd medications or herbal remedies/nutritional suppl ements/alternative remedies. 2. A review to specifically ensure our patients have had annual screening for screening for depression, screening for tobacco use, and screening for unhealthy alcohol use. For concerning screenings had a discussion with the patient, provided patient education, and recommended follow-up with primary care provider when appropriate. If patient noted with a risk of falling, they received education on strength, gait, and balance training to prevent future risk of falling. Assessment and Plan Assessment and Plan (1) Osteoarthritis, hip, bilateral: (2) Sacroiliitis: (3) Lumbar spondylosis: (4) Chronic prescription opiate use: Assessment and Plan: I feel these medications are improving the patient's quality of life and allow them to tolerate activities of daily living as well as participate in recreational activity.? The patient does not report intolerable side effects. The patient is NOT opioid naive and non-pharmacologic and non-opioid treatment has failed to significantly relieve the patient's pain and improve functionality. The patient has a diagnosis that is related to a somatic or visceral pain etiology. ? ?? I reviewed with the patient the potential risks and side effects with the use of? opioid medications including but not limited to respiratory depression,? sedation, and even . I verified the patient has access to naloxone should? these effects occur. I advised the patient to avoid the use of any other? sedation substances including alcohol, THC, and benzodiazepines while? taking opioid medications due to the risk of compounding side effects and? detrimental outcomes. I reviewed the [employer], pain treatment agreement, urine? drug screen, and opioid start talking forms. The patient was advised to let? their family know they had Naloxone in case they would need to administer? the medication.? ?? A drug screen was completed within the last year, and no aberrancies were noted regarding their use of controlled substances. The patient understands they are subject to the terms and conditions of the pain contract that they have signed. ? ?? I have checked an OARRS report on this patient today and there are no aberrancies noted in the prescribing history.? Plan repeat left SIJ injection at this time [place]23[place]11[place]22[place]23, patient reporting >50% improvement from previous SIJ injection and feels it is wearing off continue norco 5-325mg BID PRN moderate to severe pain 55 tabs/month continue HEP as tolerated f/u after injection
== END 2023-10-23 14:18 | disposition home or self-care (01) ==
PROVIDERS: PCP Nurse Practitioner Family; Visit Provider Nurse Practitioner
DX: M16.0 Bilateral primary osteoarthritis of hip (principal); M46.1 Sacroiliitis, not elsewhere classified; M47.816 Spondylosis without myelopathy or radiculopathy, lumbar region; Z79.891 Long term (current) use of opiate analgesic
CPT/HCPCS: G0463

== ENCOUNTER 2023-11-28 13:21 | Outpatient (OUT) | payer BC, SELFPAY ==
--- NOTE | 2023-11-28 13:27 | P.CN_ITS ---
Consult Note: HPI Data of Consult Patient: known to practice within the last 3 years Consult date: 09/27/22 Requesting Physician: Priscilla Elkins NP Primary Care Provider: HUNTER ROBINS Consult Narrative Reason for consult: f/u Narrative: Patient is here for f/u of chronic low back and left hip pain. Pain is in the left hip and low back No new sensorimotor sx or bowel or bladder issues. No adverse medication SE. Medications assist patient with better ability to perform ADLs. He has seen orthopedics for his knee and they advised he would need total hip done left. He wants to get surgery done. Currently working with [employer] and [employer] to get his hip surgery covered. Today rating pain 4/10 in left hip and low back, pain in left low back and hip increases to 6/10 with standing and activity, decreases with sitting. Repeat bilateral L4-5 L5-S1 facet RFA providing >75% improvement in axial low back pain ongoing per pt. Continues to find functional improvement and pain relief from norco 5-325mg 1 tab BID PRN and baclofen 10mg TID PRN, denies side effects. Patient recently underwent left hip injection with 70% improvement ongoing. patient has benefitted from left SIJ injections in the past, recent left SIJ injection >50% improvement for 3 months. cc:: CC: Priscilla Elkins NP Review of Systems ROS Status of ROS 10 or more systems reviewed and unremark able except as noted in history and below [facility] Medical History (Updated 07/17/23 @ 10:05 by Priscilla Elkins NP) Osteoarthritis ?M19.90 - Unspecified osteoarthritis, unspecified site (ICD-10) Enlarged prostate ?N40.0 - Benign prostatic hyperplasia without lower urinary tract symptoms (ICD-10) Obstructive sleep apnea on CPAP ?G47.33 - Obstructive sleep apnea (adult) (pediatric) (ICD-10) Sleep apnea ?G47.30 - Sleep apnea, unspecified (ICD-10) History of heart attack ?I25.2 - Old myocardial infarction (ICD-10) Surgical History History of cardiac cath ?Z98.890 - Other specified postprocedural states (ICD-10) History of surgery on lower extremity ?Z98.890 - Other specified postprocedural states (ICD-10) Meds Home Medications and Allergies Home Medications ?Medication ?Instructions ?Recorded ?Confirmed ?Type atorvastatin 80 mg tablet 80 mg PO BEDTIME 08/14/22 10/22/23 History baclofen 10 mg tablet 10 mg PO TID PRN muscle spasm 08/14/22 10/22/23 History divalproex 125 mg tablet,delayed 125 mg PO TID 08/14/22 10/22/23 History release lisinopril 20 1 tab PO DAILY 08/14/22 10/22/23 History mg-hydrochlorothiazide 12.5 mg tablet metoprolol tartrate 25 mg tablet 25 mg PO BID 08/14/22 10/22/23 History hydrocodone 5 mg-acetaminophen 325 1 tab PO BID PRN pain #80 tabs 05/15/23 10/22/23 Rx mg tablet tamsulosin 0.4 mg capsule (Flomax) 0.4 mg PO DAILY 10/22/23 10/22/23 History hydrocodone 5 mg-acetaminophen 325 1 tab PO BID PRN pain #55 tabs 10/23/23 Rx mg tablet hydrocodone 5 mg-acetaminophen 325 1 tab PO BID PRN pain #60 tabs 11/28/23 Rx mg tablet Allergies Allergy/AdvReac Type Severity Reaction Status Date / Time amoxicillin AdvReac Mild Nausea Verified 10/22/23 08:11 prednisone AdvReac Mild Nausea Verified 10/22/23 08:11 Exam Constitutional Documenting provider has reviewed patient's vital signs: yes Common normals: no apparent distress, oriented x3, healthy appearing, alert and well nourished General appearance: cooperative Orientation/consciousness: Yes awake, Yes oriented to person, Yes oriented to place and Yes oriented to time HENMT Common normals: normocephalic, hearing grossly normal bilaterally and moist oral mucous membranes Head and scalp: normocephalic Eye Common normals: PERRL Pupil: PERRL Neck & C-Spine Common normals: full ROM General: normal visual inspection Chest Common normals: inspection of chest normal Respiratory Common normals: normal respiratory effort, no retractions and no use of accessory muscles Effort & inspection: able to speak in complete sentences and symmetric chest movement Back & Pelvis Lumbar spine/lower back: normal to inspection, lumbar ROM normal and straight leg raise negative bilaterally Sacroiliac joints: SI joint(s) abnormal Other: left SIJ positive cathie(patricks), gaenslens, thigh thrust, compression test Extremity Common normals: normal capillary refill and no pedal edema Other: Positive internal and external rotation of left hip muscle strength 5/5 bilat LE with intact sensation Neuro Common normals: oriented x3, CN's II-XII intact bilaterally, moves all extremities, no focal motor deficits, no sensory deficits noted and deep tendon reflexes 2+ bilaterally Sensorium/orientation: alert Gait (neuro): assistive device used cane Motor exam: strength 5/5 throughout and no movement abnormalities noted Psych Common normals: mental status grossly normal, thought process normal, coop erative, affect normal, speech normal and activity/motor behavior normal Speech: normal speech Thought process: normal thought process Results Additional Findings Additional findings: If on a controlled substance or opioids, I have checked an [place] report on this patient and there are no aberrancies noted in the prescribing history.??If on a controlled substance or opioid a drug screen was completed and reviewed within the last year, and if there has not been a drug screen completed we ordered one today to monitor higher risk, state monitored pain medication use. As part of providing excellent, safe, comprehensive care, the following was completed at our patient's visit: 1. A medication reconciliation and review to ensure accurate knowledge of current/active medications, including asking our patients to inform us about any [id number] medications or herbal remedies/nutritional supplements/alternative remedies. 2. A review to specifically ensure our patients have had annual screening for screening for depression, screening for tobacco use, and screening for unhealthy alcohol use. For concerning screenings had a discussion with the patient, provided patient education, and recommended follow-up with primary care provider when appropriate. If patient noted with a risk of falling, they received education on strength, gait, and balance training to prevent future risk of falling. Assessment and Plan Assessment and Plan (1) Osteoarthritis, hip, bilateral: (2) Sacroiliitis: (3) Lumbar spondylosis: (4) Chronic prescription opiate use: Assessment and Plan: I feel these medications are improving the patient's quality of life and allow them to tolerate activities of daily living as well as participate in recreational activity.? The patient does not report intolerable side effects. The patient is NOT opioid naive and non-pharmacologic and non-opioid treatment has failed to significantly relieve the patient's pain and improve functionality. The patient has a diagnosis that is related to a somatic or visceral pain etiology. ? ?? I reviewed with the patient the potential risks and side effects with the use of? opioid medications including but not limited to respiratory depression,? sedation, and even . I verified the patient has access to naloxone should? these effects occur. I advised the patient to avoid the use of any other? sedation substances including alcohol, THC, and benzodiazepines while? taking opioid medications due to the risk of compounding side effects and? detrimental outcomes. I reviewed the [employer], pain treatment agreement, urine? drug screen, and opioid start talking forms. The patient was advised to let? their family know they had Naloxone in case they would need to administer? the medication.? ?? A drug screen was completed within the last year, and no aberrancies were noted regarding their use of controlled substances. The patient understands they are subject to the terms and conditions of the pain contract that they have signed. ? ?? I have checked an [place] report on this patient today and there are no aberrancies noted in the prescribing history.? Plan repeat left SIJ injection, patient reporting >50% improvement greater than 3 months continue norco 5-325mg BID PRN moderate to severe pain 55 tabs/month continue HEP as tolerated f/u after injection
--- OUTSIDE RECORDS SUMMARY | 2023-11-28 13:45 | XMS_ITS | CCD ---
Author Organization [facility] ion Partnership [facility] Care Team Providers Care Supervisor Electrolytic Tinning Name Role Phone Margarita Maxwell Primary Care [...] HUNTER Primary Care Unavailable MYRIAM ANDERSON Unavailable IWNIFRED BORGES Attending Unavailable Furlong Colten CARR Primary Care Provider [phone] HUNTER ROBINS Referring Unavailable FURLONG, COLTEN G [...] pain 30 tablet 0 11/10/2019 11/15/2019 Active Hedrick 5-325 MG T ABS TAKE 1 TABLET [...] Active Start: 11-29-2020 take 1 tablet by [facility] once daily Atorvastatin Calcium 80 MG [...] Active take 3 tablets by [facility] once daily as needed for muscle spasms [...] mg docusate sodium 50 mg / sennosides, detention 8.6 mg oral tablet (3 sources) Start: [...] 05-06-2019 take 1 capsule by [facility] once daily tamsulosin (FLOMAX) 0.4 MG capsule TAKE 1 CAPSULE BY MOUTH EVERY DAY 90 capsule 1 05/06/2019 Active Start: 10-09-2018 take 1 capsule by [facility] once daily tamsulosin (FLOMAX) 0.4 MG [...] by francesco th twice daily as needed. 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 Comment on above: Result Comment: The method used for this test is Barron Fromlab DXI chemiluminescent immunoassay. Values obtained by different assay methods cannot be used interchangeably. Performed By: #### 2 857-1 #### [facility] ([id number]) [address], [address] [place] [address] US RETROPERITONEAL COMPLETEo n 07-11-2023 US RETROPERITONEAL [...] Wynn MD on 07/11/2023 7:40 PM Normal [facility] COMPREHENSIVE METABOLIC PANE Feng 05-01-2023 Albumin [Mass/Vol] 4.1 g/dL Normal 3.2-5.3 [facility] Comment on above: Performed By: #### Haley ARENAS 02337-4 #### [facility] ([id number]) [address], [address] [place] [address] ALP [Catalytic activity/Vol] 75 U/L Normal 39-130 [facility] Comment on above: Performed By: #### Haley ARENAS 00132-4 #### [facility] ([id number]) [address] [place] [address] ALT [Catalytic activity/Vol] 21 U/L Normal 0-40 [facility] Comment on above: Performed By: #### Haley ARENAS 67802-8 #### [facility] ([id number]) [address], [address] [place] [address] Anion gap [Moles/Vol] 6 mmol/L Normal 5-15 [facility] Comment on above: Performed By: #### Haley ARENAS 82516-9 #### [facility] ([id number]) [address] [place] [address] AST [Catalytic activity/Vol] 13 U/L Normal 0-41 [facility] Comment on above: Performed By: #### Haley ARENAS 51616-2 #### [facility] ([id number]) [address] [place] [address] Bilirubin [Mass/Vol] 0.4 mg/dL Normal 0.3-1.2 [facility] Comment on above: Performed By: #### Haley ARENAS 64490-0 #### [facility] ([id number]) [address], [address] [place] [address] Calcium [Mass/Vol] 9.5 mg/dL Normal 8.5-10.5 [facility] Comment on above: Performed By: #### Haley ARENAS, 98769-6 #### [facility] ([id number]) [address], [address] [place] [address] Chloride [Moles/Vol] 106 mmol/L Normal 98-109 [facility] Comment on above: Performed By: #### Haley ARENAS, 63615-7 #### [facility] ([id number]) [address], [address] [place] [address] CO2 [Moles/Vol] 30 mmol/L Normal 22-32 [facility] Comment on above: Performed By: #### Haley ARENAS, 38206-7 #### [facility] ([id number]) [address] [place] [address] Creatinine [Mass/Vol] 0.96 mg/dL Normal 0.60-1.30 [facility] Comment on above: Result Comment: METH OD TRACEABLE TO IDMS STANDARD Performed By: #### Haley ARENAS, 17603-6 #### [facility] ([id number]) [address], [address] [place] [address] eGFR (CKD-EPI) NON-RACE DEPENDENT >90 Normal >59 [facility] Comment on above: Result Comment: Reported eGFR is based on the CKD-EPI 1 equation that does not use a race coefficient. Performed By: #### Haley ARENAS, 61713-2 #### [facility] ([id number]) [address], [address] [place] [address] Glucose [Mass/Vol] 95 mg/dL Normal 65-99 [facility] Comment on above: Performed By: #### Haley ARENAS, 64698-1 #### [facility] ([id number]) [address], [address] [place] [address] Potassium [Moles/Vol] 4.6 mmol/L Normal 3.5-5.0 [facility] Comment on above: Performed By: #### Haley ARENAS, 99669-1 #### [facility] ([id number]) [address] [place] [address] Protein [Mass/Vol] 7.0 g/dL Normal 6.0-8.0 [facility] Comment on above: Performed By: #### Haley ARENAS, 85487-0 #### [facility] ([id number]) [address], [address] [place] [address] Sodium [Moles/Vol] 142 mmol/L Normal 134-146 [facility] Comment on above: Performed By: #### Haley ARENAS, 83715-6 #### [facility] ([id number]) [address] [place] [address] Urea nitrogen [Mass/Vol] 20 mg/dL Normal 5-23 [facility] Comment on above: Performed By: #### Haley ARENAS, 36924-4 #### [facility] ([id number]) [address] [place] [address] Comprehensive metabolic pane feng 05-01-2023 Albumin [Mass/Vol] 4.1 g/dL 3.2 - 5.3 g/dL [facility] ALP [Catalytic activity/Vol] 75 U/L 39 - 130 U/L [facility] ALT No additional P-5'-P [Catalytic activity/Vol] 21 U/L 0 - 40 U/L [facility] Anion gap [Moles/Vol] 6 mmol/L 5 - 15 mmol/L [facility] AST [Catalytic activity/Vol] 13 U/L 0 - 41 U/L [facility] Bilirubin [Mass/Vol] 0.4 mg/dL 0.3 - 1 .2 mg/dL [facility] Calcium [Mass/Vol] 9.5 mg/dL 8.5 - 10. 5 mg/dL [facility] Chloride [Moles/Vol] 106 mmol/L 98 - 10 9 mmol/L [facility] CO2 [Moles/Vol] 30 mmol/L 22 - 32 mmol/L [facility] Creatinine [Mass/Vol] 0.96 mg/dL 0.60 - 1.30 mg/dL [facility] Comment on above: METHOD TRACEABLE TO [facility] STANDARD eGFR (CKD-EPI)non-race dependent - PINF [facility] Comment on above: Reported eGFR is based on the CKD-EPI 2020 equation that does not use a race coefficient. Glucose [Mass/Vol] 95 mg/dL 65 - 99 mg/dL [facility] Potassium [Moles/Vol] 4.6 mmol/L 3.5 - 5.0 mmol/L [facility] Protein [Mass/Vol] 7.0 g/dL 6.0 - 8.0 g/dL [facility] Sodium [Moles/Vol] 142 mmol/L 134 - 146 mmol/L [facility] Urea nitrogen [Mass/Vol] 20 mg/dL 5 - 23 mg/dL [facility] Lipid 1996 panelon 4 Cholesterol [Mass/Vol] 97 mg/dL Low 150 - 200 mg/dL [facility] Cholesterol in HDL [Mass/Vol] 40 mg/dL 39 - PINF mg/dL [facility] Comment on above: HDL <40 mg/dL - High Risk HDL > or = 40mg/dL- Desirable HDL >60 mg/dL - Negative Risk Cholesterol in LDL [Mass/Vol] 41 mg/dL NINF - 130 mg/dL [facility] Comment on above: LDL <100 mg/dL - Desirable LDL >160 mg/dL - High Risk Cholesterol in VLDL [Mass/Vol] 16 mg/dL 0 - 30 mg/dL [facility] Cholesterol.total/Ch olesterol in HDL [Mass ratio] 2.4 {ratio} 1.0 - 5.0 [facility] Interpretation and review of laboratory results Abnormal [facility] Triglyceride [Mass/Vol] 80 mg/dL 27 - 150 mg/dL [facility] Cholesterol [Mass/Vol] 97 mg/dL Low 150-200 [facility] Comment on above: Performed By: #### Haley ARENAS, 15585-9 #### [facility] ([id number]) [address] [place] [address] Cholesterol in HDL [Mass/Vol] 40 mg/dL Normal >39 [facility] Comment on above: Result Comment: HDL <40 mg/dL - High Risk HDL > or = 40mg/dL- Desirable HDL >60 mg/dL - Negative Risk Performed By: #### Haley ARENAS, 67544-3 #### [facility] ([id number]) [address] [place] [address] Cholesterol in LDL [Mass/Vol] 41 mg/dL Normal <130 [facility] Comment on above: Result Comment: LDL <100 mg/dL - Desirable LDL >160 mg/dL - High Risk Performed By: #### Haley ARENAS, 71982-7 #### [facility] ([id number]) [address], [address] [place] [address] Cholesterol in VLDL [Mass/Vol] 16 mg/dL Normal 0-30 [facility] Comment on above: Performed By: #### Haley ARENAS, 35276-6 #### [facility] ([id number]) [address], [address] [place] [address] CHOLESTEROL:HDL 2.4 Normal 1.0-5.0 [facility] Comment on above: Performed By: #### C DAGOBERTO, 40735-9 #### [facility] ([id number]) [address] [place] [address] Triglyceride [Mass/Vol] 80 mg/dL Normal 27-150 [facility] Comment on above: Performed By: #### C DAGOBERTO, 02794-4 #### [facility] ([id number]) [address] [place] [address] No Panel Informationon 05-01 [facility] Tobacco Screening.on 023 Adult depression screening assessment No [facility] y 250 DO Work Phone: Fall risk assessment b) One or more fall s in the last year [facility] y 250 DO Work Phone: Tobacco use status CPHS a) Yes [facility] 250 DO Work Phone: Tobacco Screening. Yes [facility] 250 DO Work Phone: 36on 08-23-2022 36 Left vm to reschedul e us and follow up from 08/17/22 [facility] Telephoneon 08-23-2022 Telephone [phone] Fidencio Doss as 1965 M Date Provider Department Center 08/23/2022 Sanjuana2-PATRIA BRANCH Krupa [facility] No family history on file [facility] XR LSPINE 2_3 VIEWSon 2022 [...] MICHAEL OROZCO Date: 2022-08-01 08:25 Normal [facility] XR HIPS LUPILLO [...] VASILE VITALE Date: 2022-07-31 14:23 Normal [facility] Office Visiton 05-08-2022 Follow-up visit [id number] Fidencio Doss 1965 M Date Provider Department Center 05/08/2022 WINIFRED HOWELL GLV [facility] No family history on file Level of Service:50450 AR OFFICE/OUTPATIENT NEW LOW MDM 30-44 MINUTES Reason for Visit and Comments: New Patient [632] Normal [facility] BNPon 05-03-2022 Natriuretic peptide B (Bld) [Mass/Vol] 41.0 pg/mL Normal <=900.0 [facility] Comment on above: Performed By: #### H STROPN, LIPA, BNP, CMP ####[facility] [address] [place], [place] [address]MaCheryl Jazzy Powell CBC AUTO DIFFon 05-03-2022 BASO # 0.1 103/ul Normal 0.0-0.1 [facility] Comment on above: Performed By: #### C BC #### [facility] [address] [place] [address] Dr. Jazzy Powell Basophils/100 WBC (Bld) 0.5 % Normal 0.2-2.0 [facility] Comment on above: Performed By: #### C BC #### [facility] [address] [place] [address] Dr. Jazzy Powell EO # 0.3 103/ul Normal 0.0-0.7 [facility] Comment on above: Performed By: #### C BC #### [facility] [address] [place] [address] Dr. Jazzy Powell Eosinophils/100 WBC (Bld) 1.8 % Normal 0.9-7.0 [facility] Comment on above: Performed By: #### C BC #### [facility] [address] [place] [address] Dr. Jazzy Powell Erythrocyte distribution width (RBC) [Ratio] 13.1 % Normal 11.0-15.0 [facility] Comment on above: Performed By: #### C BC #### [facility] [address] [place] [address] Dr. Jazzy Powell Hematocrit (Bld) [Volume fraction] 40.7 % Critically low 42.0-54.0 [facility] Comment on above: Performed By: #### C BC #### [facility] [address] [place] [address] Dr. Jazzy Powell Hemoglobin (Bld) [Mass/Vol] 13.7 g/dL Critically low 14.0-18.0 [facility] Comment on above: Performed By: #### C BC #### [facility] [address] [place] [address] Dr. Jazzy Powell IG # 0.09 10e3/ul Critically high 0.00-0.03 [facility] Comment on above: Performed By: #### C BC #### [facility] [address] [place] [address] Dr. Jazzy Powell IG % 0.5 % Normal 0.0-0.5 [facility] Comment on above: Performed By: #### C BC #### [facility] [address] [address] [address] Jazzy Powell LYMPH # 4.7 103/ul Critically high 1.2-3.8 [facility] Comment on above: Performed By: #### C BC #### [facility] [address] [place] [address] Dr. Jazzy Powell Lymphocytes/100 WBC (Bld) 24.5 % Normal 20.5-60.0 [facility] Comment on above: Performed By: #### C BC #### [facility] [address] [place] [address] Dr. Jazzy Powell MANUAL DIFF REQ NO Normal [facility] Comment on above: Performed By: #### C BC #### [facility] [address] [place] [address] Dr. Jazzy Powell MCH (RBC) [Entitic mass] 30.8 pg Normal 25.9-34.0 [facility] Comment on above: Performed By: #### C BC #### [facility] [address] [place] [address] Dr. Jazzy Powell MCHC (RBC) [Mass/Vol] 33.7 g/dL Normal 29.9-35.2 [facility] Comment on above: Performed By: #### C BC #### [facility] [address] [place] [address] Dr. Jazzy Powell MCV (RBC) [Entitic vol] 91.5 fL Normal 80.0-94.0 [facility] Comment on above: Performed By: #### C BC #### [facility] [address] [place] [address] Dr. Jazzy Powell MONO # 2.5 103/ul Critically high 0.3-0.8 [facility] Comment on above: Performed By: #### C BC #### [facility] [address] [place] [address] Dr. Jazzy Powell Monocytes/100 WBC (Bld) 12.8 % Critically high 1.7-12.0 [facility] Comment on above: Performed By: #### C BC #### [facility] [address] [place] [address] Dr. Jazzy Powell NEUT # 11.6 103/ul Critically high 1.4-6.5 [facility] Comment on above: Performed By: #### C BC #### [facility] [address] [address] [address] Jazzy Powell Neutrophils/100 WBC (Bld) 59.9 % Normal 43.0-75.0 [facility] Comment on above: Performed By: #### C BC #### [facility] [address] [address] [address] Jazzy Powell Platelet mean volume (Bld) [Entitic vol] 8.4 fL Critically low 9.5-13.5 [facility] Comment on above: Performed By: #### C BC #### [facility] [address] [place] [address] Dr. Jazzy Powell PLT 332 103/ul Normal 150-450 [facility] Comment on above: Performed By: #### C BC #### [facility] [address] [place] [address] Dr. Jazzy Powell RBC 4.45 106/ul Critically low 4.70-6.10 [facility] Comment on above: Performed By: #### C BC #### [facility] [address] [place] [address] Dr. Jazzy Powell WBC 19.3 103/ul Critically high 4.0-11.0 [facility] Comment on above: Performed By: #### C BC #### [facility] [address] [place] [address] Dr. Jazzy Powell CTA CHEST WO W [...] by: TANNER MACEDO Date: 2022-05-03 20:24 Normal [facility] LIPASEon 05-03-2022 Lipase [Catalytic activity/Vol] 126.0 U/L Normal 73.0-393.0 [facility] Comment on above: Performed By: #### H STROPN, LIPA, BNP, CMP ####[facility] [address] [address]Dr. Jazzy Powell PROF 14(COMP METB)on 023 Albumin [Mass/Vol] 3.5 g/dL Normal 3.4-5.0 [facility] Comment on above: Performed By: #### H STROPN, LIPA, BNP, CMP ####[facility] [address] [address]DrCheryl Powell Albumin/Globulin [Mass ratio] 1.0 {ratio} Normal [facility] Comment on above: Performed By: #### H STROPN, LIPA, BNP, CMP ####[facility] [address] [address]Dr. Jazzy Powell ALP [Catalytic activity/Vol] 101 U/L Normal 46-116 [facility] Comment on above: Performed By: #### H STROPN, LIPA, BNP, CMP ####[facility] [address] [address]Dr. Jazzy Powell ALT [Catalytic activity/Vol] 27 U/L Normal 16-63 [facility] Comment on above: Performed By: #### H STROPN, LIPA, BNP, CMP ####[facility] [address] [address]Dr. Jazzy Powell Anion gap [Moles/Vol] 6.1 mmol/L Normal [facility] Comment on above: Performed By: #### H STROPN, LIPA, BNP, CMP ####[facility] [address] [address]Dr. Jazzy Powell AST [Catalytic activity/Vol] 15 U/L Normal 15-37 [facility] Comment on above: Performed By: #### H STROPN, LIPA, BNP, CMP ####[facility] [address] [place], [place] [address]Dr. Jazzy Powell Bilirubin [Mass/Vol] 0.3 mg/dL Normal 0.2-1.0 [facility] Comment on above: Performed By: #### H STROPN, LIPA, BNP, CMP ####[facility] [address] [place], [place] [address]Dr. Jazzy Powell Calcium [Mass/Vol] 8.9 mg/dL Normal 8.5-10.1 [facility] Comment on above: Performed By: #### H STROPN, LIPA, BNP, CMP ####[facility] [address] [address]Dr. Jazzy Powell Chloride [Moles/Vol] 104 mmol/L Normal 98-107 [facility] Comment on above: Performed By: #### H STROPN, LIPA, BNP, CMP ####[facility] [address] [address]Dr. Jazzy Powell CO2 [Moles/Vol] 29.4 mmol/L Normal 21.0-32.0 [facility] Comment on above: Performed By: #### H STROPN, LIPA, BNP, CMP ####[facility] [address] [address]Dr. Jazzy Powell Creatinine [Mass/Vol] 0.85 mg/dL Normal 0.70-1.30 [facility] Comment on above: Performed By: #### H STROPN, LIPA, BNP, CMP ####[facility] [address] [address]Dr. Jazzy Powell EGFR-AF NORWEGIAN >60 Normal >=60 [facility] Comment on above: Performed By: #### H STROPN, LIPA, BNP, CMP ####[facility] [address] [address]Dr. Jazzy Powell EGFR-NON AF NORWEGIAN >60 Normal >=60 [facility] Comment on above: Performed By: #### H STROPN, LIPA, BNP, CMP ####[facility] [address] [address]Dr. Jazzy Powell Globulin (S) [Mass/Vol] 3.4 g/dL Normal [facility] Comment on above: Performed By: #### H STROPN, LIPA, BNP, CMP ####[facility] [address] [address]Dr. Jazzy Powell Glucose [Mass/Vol] 95 mg/dL Normal 74-106 [facility] Comment on above: Performed By: #### H STROPN, LIPA, BNP, CMP ####[facility] [address] [address]Dr. Jazzy Powell Potassium [Moles/Vol] 3.5 mmol/L Normal 3.5-5.1 [facility] Comment on above: Performed By: #### H STROPN, LIPA, BNP, CMP ####[facility] [address] [address]Dr. Jazzy Powell Protein [Mass/Vol] 6.9 g/dL Normal 6.4-8.2 [facility] Comment on above: Performed By: #### H STROPN, LIPA, BNP, CMP ####[facility] [address] [address]Dr. Jazzy Powell Sodium [Moles/Vol] 136 mmol/L Normal 136-145 [facility] Comment on above: Performed By: #### H STROPN, LIPA, BNP, CMP ####[facility] [address] [address]Dr. Jazzy Powell Urea nitrogen [Mass/Vol] 17.0 mg/dL Normal 7.0-18.0 [facility] Comment on above: Performed By: #### H STROPN, LIPA, BNP, CMP ####[facility] [address] [address]Dr. Jazzy Powell Urea nitrogen/Creatinine [Mass ratio] 20.0 mg/mg Normal [facility] Comment on above: Performed By: #### H STROPN, LIPA, BNP, CMP ####[facility] [address] [address]Dr. Jazzy Powell PROTIMEon 05-03-2022 INR Coag (PPP) [Relative time] 0.95 {INR} Normal [facility] Comment on above: Performed By: #### P TT, PT ####[facility] [address] [place], [place] [address]Dr. Jazzy Powell INR GUIDELINES SEE BELOW Normal [facility] Comment on above: Result Comment: ANNEMARIE RED INR: 2.0 - 3.0 CONDITIONS NOT LISTED BELOW 2.5 - 3.5 FOR PROSTHETIC HEART VALVE REPLACEMENT 2.5 - 3.5 RECURRENT THROMBOSIS Performed By: #### P TT, PT ####[facility] [address] [place], [place] [address]Dr. Jazzy Powell PT Coag (PPP) [Time] 10.1 s Normal 9.0-11.6 [facility] Comment on above: Performed By: #### P TT, PT ####[facility] [address] [place], [place] [address]Dr. Jazzy Powell PTTon 05-03-2022 aPTT Coag (Bld) [Time] 28.7 s Normal 22.3-36.2 [facility] Comment on above: Performed By: #### P TT, PT ####[facility] [address] [place], [place] [address]Dr. Jazzy Powell TROPONIN, HIGH SENSITIVITYon 05-03-2022 HSTROP 5.1 pg/mL Normal 4.0-76.1 [facility] Comment on above: Result Comment: CUT- OFF POINTS HAVE BEEN ESTABLISHED BASED ON THE FOURTH UNIVERSAL DEFINITIONS OF MYOCARDIAL INFARCTION. THE UPPER REFERENCE LIMIT (URL) OF TROPONIN, DEFINED THE 99TH PERCENTILE OF cTnI DISTRIBUTION IN A REFERENCE POPULATION, HAS BEEN CONFIRMED THE DECISION THRESHOLD FOR DE DIAGNOSIS. Performed By: #### H STROPN, LIPA, BNP, CMP ####[facility] [address] [place], [place] [address]WeDr. Jazzy Powell Covid-19 PCR (CVDTB)on SARS-CoV-2 (COVID-19) RNA ALLIE+probe Ql (Unsp spec) Not detected Normal NOT DETECTED [facility] Comment on above: Result Comment: When diagnostic [...] for this test is supported by the [place] of [employer] and Human Service's declaration that [...] used). Performed By: #### C VDTBH #### [facility] [address] [place], [place] [address] Dr. Jazzy Powell MRI FOOT LT WO [...] RAJIV PEACOCK Date: 2022-01-01 08:53 Normal [facility] Office Visit (Cardiology)on [...] Weight Tips; Status:Complete - Retrospective Authorization; Done: [id number] Some eating tips that can help you lose weight.; Status:Complete - Retrospective Authorization; Done: [id number] SocHx: Current every day smoker Tobacco Use Screening; Status:Complete; Done: [id number] You need to quit smoking.; Status:Complete - Retrospective Authorization; Done: 25Mht5693 You need to stop smoking. Though it is not easy, more than half of all adult smokers have quit. We encourage you to write down all the reasons you should quit smoking and set a quit date for yourself. Ask us how we can help. You may also call 4-293-REZGNOW for free resources and assistance.; Status:Complete - Retrospective Authorization; Done: [id number] Unlinked Stop: Brilinta 90 MG Oral Tablet [...] negative for complaint. Vitals Vital Signs Recorded: [id number] 02:25PM Heart Rate74, L Radial Sboaqpjw078, LUE, Sitting Rqoxbwkrv55, LUE, Sitting Height6 ft 2 in Bngpcl096 lb BMI Gfofkmitzp37.64 kg (more content not included)... Normal [facility] Tobacco Screening.on 022 Fall risk assessment a) No falls within the last year [facility] Booster y 250 DO Work Phone: Tobacco use status [facility] a) Yes [facility] Booster y 250 DO Work Phone: Tobacco Screening. Yes [facility] Booster y 250 DO Work Phone: CNPNon [facility] ASHOK DOSS ([id number]) 1965 M Date Time Provider Department 07/04/21 [...] Encounter Status:Closed by [place] on 07/04/21 [facility] CNOVon 06-06-2021 CNOV Office Visit (SPNSMN ) ASHOK DOSS ([id number]) 1965 M Date Time Provider Department 06/06/21 [...] well. 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 Normal [facility] Office Visit (Cardiology)on 05-26-2021 Follow-up visit [...] we can help. You may also call 2-932-OGJTNOW for free resources and assistance.; Status:Complete - Retrospective Authorization; Done: 26May2021 Tobacco Use Screening; Status:Complete; Done: 26May2021 Patient Instructions By signing my name below, I, Silvana Rodriguez LPN ,Lwaanda, attest that this documentation has been prepared [...] wall myocardial infarction. He was taken to [place] where he had a coronary intervention and [...] have been (more content not included)... Normal [facility] Tobacco Screening.on 022 Adult depression screening assessment No [facility] 600 DO Work Phone: Heart Rate Regular [facility] 600 DO Work Phone: Tobacco use status [facility] a) Yes [facility] 600 DO Work Phone: Tobacco Screening. Yes [facility] 600 DO Work Phone: Christian 05-17-2021 [facility] Telephone (NI) ASHOK DOSS ([id number]) 1965 M Date Time Provider Department 05/17/21 ASHIA BERMEO During your visit today, we recorded the following information about you: Liset Lazcano Worm Raiser 05/17/2021 12:43 PM Addendum .Received the following record(s) via fax. -XR Foreign Body Eye, MRI Cspine wo Date 05/05/21 Record(s) scanned into pt's chart. Ashia Bermeo APRN.EMPLOYMENT MANAGER 05/17/2021 3:18 PM Signed Awaiting CD copy of imaging. Ashia Bermeo APRN.EMPLOYMENT MANAGER Allergies As of Date: 05/17/2021 (No Known [...] Encounter Status:Closed by ASHIA BERMEO on 05/17/21 [facility] Christian 05-04-2021 [facility] Telephone (NIQ) DOSSASHOK MONROY ([id number]) 1965 M Date Time Provider Department 05/04/21 ASHIA BERMEO During your visit today, we recorded the following information about you: Liset Lazcano Worm Raiser 05/04/2021 11:44 AM Signed Lulu from [place] requesting an Orbit order. Pt is scheduled tomorrow for MRI. Fax - [facility] - [phone] Catherine Stuart RN 05/04/2021 12:16 PM Signed Neuro SPINE CARE COORDINATION QUICK NOTE MRI Cervical order faxed to provided number. Catherine Stuart RN Office Coordinator Receptionist [facility] 05/04/2021 1:41 PM Signed XR [...] Encounter Status:Closed by CATHERINE STUART on 05/04/21 [facility] CNOVon 04-24-2021 CNOV Office Visit (SPNSMN ) ASHOK DOSS ([id number]) 1965 M Date Time Provider Department 04/24/21 2:15 PM ASHIA BERMEO SPNSMN During your visit today, we recorded the following information about you: Pulse Respiration Blood pressure Weight 79/minute 18/minute 139/68 118.7 kg Height 1.88 m Ashia Bermeo APRN.EMPLOYMENT MANAGER 04/24/2021 3:14 PM Signed SPINE SURGERY OUTPATIENT [...] Distances ANTIPLATELET OR ANTICOAGULATION STATUS: Yes Previous DE PREVIOUS SPINAL SURGERY: SURGERY #1: L5-S1 Laminectomy [...] vision or hearing. CARDIOVASCULAR: Hypertension and previous DE RESPIRATORY: Denies SOB, sputum production, and hemoptysis. [...] (more content not included)... Normal [facility] Office Visit (Cardiology)on 12-27-2020 Follow-up visit [...] year old male that presents to the [facility] with his for follow-up on testing. He follows with his primary needleworker Dr. Stacy and was added to my schedule today. He has a recent history of an DE with cardiac catheterization 11/18/2020 with PCI and [...] see if cardiac rehabilitation is possible at [facility] that is closest to his home. He [...] 1. CAD; with acute inferior ST elevation DE requiring cardiac catheterization 11/18/2020 with PCI and [...] itching CARDIOVASCULAR:N (more content not included)... [facility] Scre[facility].on 021 Fall risk assessment a) No falls within the last year [place] [address] DO Work Phone: Tobacco use status [facility] a) Yes [place] [address] DO Work Phone: Tobacco Screening. Yes [place] [address] DO Work Phone: Cardiac Stress Teston 2020 Cardiac Stress Test [facility] [address], [address] [place] [address] Exercise Stress Test Patient Name: ASHOK DOSS Ordering Physician: [id number] Rachel Stacy MD Study Date: 12/23/2020 Reading Physician: [id number] Antony Pena MD, [facility] MRN/PID: [id number] Supervising Physician: Accession/Order#: [id number] Referring Physician: [id number] RACHEL STACY Date of : 1965 PCP: Gender: M Fellow: Height: 187.96 cm Nurse: Frida Dewey RN Weight: 119.75 kg Accounts Payable Or Receivable Clerk: N/A BSA: 2.45 m2 Technologist: BMI: 33.90 kg/m2 Additional Staff: Age: 55 years cc report to: Patient Location: [facility] cc report to: [id number] Rachel Stacy MD Study Type: Cardiac Stress Test Diagnosis/ICD: I25.10-Atherosclerotic heart disease; I21.19-ST elevation (STEMI) myocardial infarction involving other coronary artery of inferior wall Indication: CAD, INF. DE Procedure/CPT: Stress Test Interpretation-24133; Stress Test Supervision-59457 Falls Risk: Patient Performance: The patient exercised [...] The inadequate level of stress was achieved. [id number] Antony Pena MD, FACC Electronically signed on 12/23/2020 at 5:13:30 PM Final Normal [facility] Cardiac Stress [facility] [address] [place] Work Phone: Echocardiogramon 12-23-2020 Echocardiography [facility] ain [address], [address], [place], [place] [address] TRANSTHORACIC ECHOCARDIOGRAM REPORT Patient Name: ASHOK DOSS Reading Physician: [id number] Antony Pena MD, FAC Study Date: 12/23/2020 Referring Physician: [id number] RACHEL STACY MRN/PID: [id number] PCP: Colten Parra MD Accession/Order#: [id number] Department Location: [facility] Date of : 1965 Fellow: Gender: M Nurse: Admit Date: Accounts Payable Or Receivable Clerk: Latanya Yadav RDCS, RT(R), RDMS, RVT Height: 187.96 cm CC Report to: Weight: 119.75 kg Study Type: Echocardiogram BSA: 2.45 m2 Diagnosis/ICD: I25.10-Atherosclerotic heart disease of huslia coronary artery without angina pectoris; I21.19-ST elevation (STEMI) myocardial infarction involving other coronary artery of inferior wall Indication: HTN PTCA Procedure/CPT: Echo Complete w Full Doppler-35652 Study Detail: The following Echo studies were [...] 0.8 m/s (0.6-0.9m/s) PV Max P.5 mmHg [id number] Antony Pena MD, FACC Electronically signed on 12/23/2020 at 11:56:24 AM Final Normal [facility] Echocardiography Please click on the link to view the study images Normal -[facility] [address] [place] Work Phone: Discharge Planning [id number] 0 11-20-2020 Discharge Planning Note2 Discharge Planning: Discharge Barriersnone [facility] PCP/Next Provider Follow Up Scheduledyes Anticipated Discharge [id number] Discharge Planning 11/20/20 tcc NOTE: ROUNDED WITH NURSING, PT ADMITTED FOR NSTEMI, STARTED ON BRILINTA. ADDED BELL HOLE DIGGER REFERRAL TO FOLLOW OUTPT . PT TO BE DISCHARGED WITH PRESCRIPTION FOR BRILINTA. DISCOUNT BRIL[place]TA CARD PROVIDED TO NURSING WITH [facility] . PT TO BE DISCHARGED HOME ON THIS DATE. NO FURTHER NEEDS IDENTIFIED. NURSING AM-PAC 24, PLAN IS HOME WITH FAMILY. ANJELICA RUSS RN TCC Assessment: Discharge Planning Assessment [id number] Discharge Documentation: Discharge/Transfer Date/Mnfp29-Sbq-4677 14:21 Discharged Accompanied Byspouse Discharge Modeambulatory Transportation Methodprivate car Valuables/Medications/B elongings Returnedyes Final DispositionHome Electronic Signatures: Anjelica Russ (GLASS LINED TANK REPAIRER) (Signed 20-Nov-2020 13:02) Authored: Discharge Planning, Assessment Madhavi Moore (RN) (Signed 20-Nov-2020 14:21) Authored: Discharge Planning, Discharge Documentation Last Updated: 20-Nov-2020 14:21 by Madhavi Moore (RN) Normal [facility] Discharge [id number] 021 Discharge Profile2 Discharge Orders: Anticipated Discharge Date: Anticipated Discharge [id number] Anticipated Discharge Time12:18 Problem List: Additional Dx: [...] hour away, and will be seeking a needleworker closer to home, but will be seen at [facility] with me within 1 week to [...] Physician/Dept/ServiceP nacho call Dr. Stacy's office at [phone], patient should be seen within the next week. Call to Schedule in1 week Electronic Signatures: Rachel Stacy) (Signed 20-Nov-2020 12:27) Authored: Discharge Orders, Hospital Course (Home Care/Gold Form), Provider FINAL REVIEW of Orders, Appointments, Gold Form - Shoe Salesperson Summary Last Updated: 20-Nov-2020 12:27 by Rachel Stacy) [facility] Order Reconciliationon 11-20 Order Reconciliation Page 1 [...] patch TransDermal Every 24 HoursNotes [facility] Pharmacy: [facility] 18-Nov-2020 23:39 nicotine 21 mg/24 hr [...] tab(s) orally 2 times a day Normal [facility] APTTon 11-19-2020 APTT Canceled Normal [facility] Comment on above: Order Comment: TEST APTT WAS CANCELLED, 11/19/2020 03:59 DUPLICATE ORDER. Result Comment: THE APTT IS NO LONGER USED FOR MONITORING UNFRACTIONATED HEPARIN THERAPY. FOR MONITORING HEPARIN THERAPY, USE THE HEPARIN ASSAY. Performed By: #### A PTT ####[facility] [place], [place] [id number] aPTT Coag (Bld) [Time] 28 s Normal 25 - 35 [facility] Comment on above: Result Comment: THE APTT IS NO LONGER USED FOR MONITORING UNFRACTIONATED HEPARIN THERAPY. FOR MONITORING HEPARIN THERAPY, USE THE HEPARIN ASSAY. Performed By: #### A PTT #### [facility] [address] [place], [place] [id number] BASIC METABOLIC PANELon 11-02 Anion gap [Moles/Vol] 12 mmol/L Normal 10 - 20 [facility] Comment on above: Performed By: #### B MP #### [address] [id number] Calcium [Mass/Vol] 8.4 mg/dL Low 8.6 - 10.3 [facility] Comment on above: Performed By: #### B MP #### [address] [id number] Chloride [Moles/Vol] 109 mmol/L High 98 - 107 [facility] Comment on above: Performed By: #### B MP #### [address] [id number] Creatinine [Mass/Vol] 0.83 mg/dL Normal 0.50 - 1.30 [facility] Comment on above: Performed By: #### B MP #### [address] [id number] GFR- AM. >60 Normal >60 [facility] Comment on above: Result Comment: CALC ULATIONS OF ESTIMATED GFR ARE PERFORMED USING THE MDRD STUDY EQUATION FOR THE IDMS-TRACEABLE CREATININE METHODS. CLIN CHEM 2007;53:766-72 Performed By: #### B MP #### [address] [id number] GFR-NON AM. >60 Normal >60 [facility] Comment on above: Performed By: #### B MP #### [address] [id number] Glucose [Mass/Vol] 115 mg/dL High 74 - 99 [facility] Comment on above: Performed By: #### B MP #### [address] [id number] HCO3 (Bld) [Moles/Vol] 23 mmol/L Normal 21 - 32 [facility] Comment on above: Performed By: #### B MP #### [address] [id number] Potassium [Moles/Vol] 3.8 mmol/L Normal 3.5 - 5.3 [facility] Comment on above: Performed By: #### B MP #### [facility] [address] [place], [place] [id number] Sodium [Moles/Vol] 140 mmol/L Normal 136 - 145 [facility] Comment on above: Performed By: #### B MP #### [facility] [address] [place], [place] [id number] Urea nitrogen [Mass/Vol] 20 mg/dL Normal 6 - 23 [facility] Comment on above: Performed By: #### B MP #### [facility] [address] [place], [place] [phone] CBCon 11-19-2020 Erythrocyte distribution width (RBC) [Ratio] 13.3 % Normal 11.5 - 14.5 [facility] Comment on above: Performed By: #### C BC ####[address] [phone] Hematocrit (Bld) [Volume fraction] 41.2 % Normal 41.0 - 52.0 [facility] Comment on above: Performed By: #### C BC ####[address] [id number] Hemoglobin (Bld) [Mass/Vol] 13.5 g/dL Normal 13.5 - 17.5 [facility] Comment on above: Performed By: #### C BC ####[address] [id number] MCHC (RBC) [Mass/Vol] 32.8 g/dL Normal 32.0 - 36.0 [facility] Comment on above: Performed By: #### C BC ####[address] [id number] MCV (RBC) [Entitic vol] 93 fL Normal 80 - 100 [facility] Comment on above: Performed By: #### C BC ####[address] [id number] Platelets (Bld) [#/Vol] 333 10*3/uL Normal 150 - 450 [facility] Comment on above: Performed By: #### C BC ####[facility] [place], [place] [id number] RBC 4.42 x10E12/L Low 4.50 - 5.90 [facility] Comment on above: Performed By: #### C BC ####[facility] [place], [place] [phone] WBC (Bld) [#/Vol] 22.9 10*3/uL High 4.4 - 11.3 [facility] Comment on above: Performed By: #### C BC ####[facility] [place], [place] [phone] Consult-Critical Careon 11-02 Consult-Critical Care Service: Service: Critical Care Consult: Consult requested by (Attending Name): Rachel Stacy Reason: ICU MANAGEMENT History of Present Illness: Admission Reason: Inferior Wall STEMI HPI: ASHOK DOSS is a 55 year old Male Pmhx HTN and active smoker Presented to [facility] ED [place] d/t Chest pain. Described it as crushing mid sternal pain with radiation to the Left arm. He went to [facility] Last week d/t CP and had respiratory complaints and was sent home and was told he had bronchitis and CP could be 2/2 to. He states he had CP before but never like this, he associated complaints with diaphoresis, presyncopal x2 and weakness. No history of DE before but he is an active pack [...] ankle surgery, carpal tunnel Family history: Father DE, CHF Mother: CAD Social History: Pack a [...] prophylaxis Heme/ID: Elevated WBC 2/2 reactive to DE SCDs for DVT prophylaxis, Enoxaparin -pharmacological DVT measures -hold for now Msk/Integumentaty PT/OT Social/family/dispo: admit to ICU Code; Full *Plan discussed at length with bedside RN and Dr. Zaid Posey MD Consult Status: Consult Order ID: [id number] Attestation: Note Completion: I am a: Advanced Practice Provider Attending Only - Shared Visit with Advanced Practice ProviderThis is a shared visit. I have revi (more content not included)... Normal [facility] Daily Progress Note - Critic al Care-SICUon [...] 150-170mmhg. Objective Data: Objective Information T PRBPSpO2 [id number]/7799% Date/Time11/19 1:30918 17:41918 17:41918 17:41918 17:41 Range(37.1C [...] None ---- Intake and Output ----- Mn/Dy/[facility] Nov 19, 2020 6:00 [id number] The Intake and Output Totals for the last 24 hours are: IntakeOutclovis baptist hospitalNet [id number] Date: Weight/Scale Type: 18-Nov-2020 23:02112.7 kg Physical Exam by System: Neurological: alert [...] the bedside L3 Electronic Signatures: Leia Stearns (SERVICES MANAGER-EMPLOYMENT MANAGER) (Signed 19-Nov-2020 18:30) Authored: Service, Subjective Data, Objective Data, Assessment and Plan Ramadugu, José Miguel (MD) (Signed 19-Nov-2020 22:22) Authored: Note Completion Last Updated: 19-Nov-2020 22:22 by José Miguel Posey) [facility] Daily Progress Note-Cardiolo gayle 11-19-2020 Daily Progress [...] 2. Objective Data: Objective Information: T PRBPSpO2 Value37.14009626/8297% Date/Time11/19 1: 13: 13: 13: 13:30 Range(37.1C [...] ----- Mn/Dy/Year TimeIntakeOutputNet Nov 19, 2020 6:00 [id number] The Intake and Output Totals for the last 24 hours are: IntakeOutclovis baptist hospitalNet [id number] Recent Lab Results: Results: CBC: 11/19/2020 05:23 [...] Updated: 19-Nov-2020 17:17 by Rachel Stacy) Normal [facility] HEPARIN ASSAY,UFHon 11-20-19 21 HEPARIN ASSAY,UFH 0.2 IU/mL Normal [facility] Comment on above: Result Comment: The therapeutic reference range for UFH may be either 0.3-0.6 IU/mL or 0.3-0.7 IU/mL based on the clinical setting for anticoagulant therapy and the associated nomogram used. For heparin dosing guidelines based on clinical scenario and Heparin Assay results, please refer to local Pharmacy and the [facility] Guidelines for Anticoagulation therapy available on the [facility] intranet at: [email or web address] elines_[email or web address].aspx Performed By: #### T ROP2 #### [address] [id number] HEPARIN ASSAY,UFH 0.2 IU/mL Normal [facility] Comment on above: Result Comment: The therapeutic reference range for UFH may be either 0.3-0.6 IU/mL or 0.3-0.7 IU/mL based on the clinical setting for anticoagulant therapy and the associated nomogram used. For heparin dosing guidelines based on clinical scenario and Heparin Assay results, please refer to local Pharmacy and the [facility] Guidelines for Anticoagulation therapy available on the [facility] intranet at: [email or web address] elines_for_Anticoagu.aspx Performed By: #### T ROP2 #### [address] [id number] HEPARIN ASSAY,UFH <0.1 Normal [facility] Comment on above: Result Comment: The therapeutic reference range for UFH may be either 0.3-0.6 IU/mL or 0.3-0.7 IU/mL based on the clinical setting for anticoagulant therapy and the associated nomogram used. For heparin dosing guidelines based on clinical scenario and Heparin Assay results, please refer to local Pharmacy and the [facility] Guidelines for Anticoagulation therapy available on the [facility] intranet at: [email or web address]_Guid gayathrines_for_Anticoagu.aspx Performed By: #### T ROP2 #### [address] [id number] MAGNESIUMon 11-19-2020 Magnesium [Mass/Vol] 1.80 mg/dL Normal 1.60 - 2.40 [facility] Comment on above: Performed By: #### T ROP2 #### [address] [id number] Measurementson 11-19-2020 Measurements Weight: Weight in kg124.7 kilogram(s) Height: Height in cm188 centimeter(s) Turkish Unit Translation (pounds, inches): Measurement Turkish Unit Translations (Adult only): Weight in nke057.916 pound(s) Electronic Signatures: Maggie Muir (STAFF N) (Signed 18-Nov-2020 23:08) Authored: Weight, Height, Turkish Unit Translation (pounds, inches) Last Updated: 18-Nov-2020 23:08 by Maggie Muir (STAFF N) Normal [facility] PT/INRon 11-19-2020 PROTHROMBIN TIME Canceled Normal [facility] Comment on above: Order Comment: TEST PT/INR WAS CANCELLED, 11/19/2020 01:33 Performed By: #### P TINR #### [address] [id number] PT, INR Canceled Normal [facility] Comment on above: Order Comment: TEST PT/INR WAS CANCELLED, 11/19/2020 01:33 Performed By: #### P TINR #### [address] [phone] PT Coag (PPP) [Time] 12.8 s Normal 10.1 - 13.3 [facility] Comment on above: Performed By: #### P TINR #### [address] [id number] PT, INR 1.1 Normal 0.9 - 1.1 [facility] Comment on above: Performed By: #### P TINR #### [address] [id number] TROPONIN Ion 11-19-2020 Troponin I.cardiac [Mass/Vol] 10.69 ng/mL Critically high 0.00 - 0.03 [facility] Comment on above: Order Comment: Hedy JOSE [...] is performed using different testing methodology at [facility] than at other [facility]. Direct result comparisons should only be made within the same method. Marce- RB to Shelia GOODMAN , 11/19/2020 21:43 Performed By: #### T ROP2 #### [address] [id number] Troponin I.cardiac [Mass/Vol] 12.77 ng/mL Critically high 0.00 - 0.03 [facility] Comment on above: Order Comment: Hedy JOES to Michaelle David, 11/19/2020 13:36 Result Comment: [...] is performed using different testing methodology at [facility] than at other [facility]. Direct result comparisons should only be made within the same method. Called- RB to Michaelle Frankie, 11/19/2020 13:36 Performed By: #### T ROP2 #### [address] [id number] Troponin I.cardiac [Mass/Vol] 18.39 ng/mL Critically high 0.00 - 0.03 [facility] Comment on above: Order Comment: Hedy JOSE [...] is performed using different testing methodology at [facility] than at other [facility]. Direct result comparisons should only be made within the same method. Called- RB to Omar Muir, 11/19/2020 06:26 Performed By: #### T ROP2 #### [address] [id number] TROPONIN I Canceled Normal [facility] Comment on above: Order Comment: Hedy JOSE [...] is performed using different testing methodology at [facility] than at other [facility]. Direct result comparisons should only be made within the same method. Performed By: #### T ROP2 #### [address] [id number] Troponin I.cardiac [Mass/Vol] 17.54 ng/mL Critically high 0.00 - 0.03 [facility] Comment on above: Order Comment: Knott d- [...] is performed using different testing methodology at [facility] than at other [facility]. Direct result comparisons should only be made within the same method. Called- RB to Bandar Baez, 11/19/2020 02:22 Performed By: #### T ROP2 ####[facility] [place], [place] [phone] ACT-LOW RANGEon 11-18-2020 ACT-LOW RANGE 294 SECONDS High 89 - 169 [facility] [facility] [place] Comment on above: Result Comment: Note new reference range as of 06/06/2018. Target ACT range will vary based on the patient population, clinical status, and surgical intervention occurring. Performed By: #### T ROP2 #### [facility] [address] [place], [place] [id number] ACT-LOW RANGE 207 SECONDS High 89 - 169 [facility] [place] Comment on above: Result Comment: Note new reference range as of 06/06/2018. Target ACT range will vary based on the patient population, clinical status, and surgical intervention occurring. Performed By: #### T ROP2 #### [facility] [address] [place], [place] [id number] BNPon 11-18-2020 Natriuretic peptide B (Bld) [Mass/Vol] 33 pg/mL Normal 0 - 99 [facility] [place] Comment on above: Result Comment: . <1 00 pg/mL - Heart failure unlikely 100-299 pg/mL - Intermediate probability of acute heart . failure exacerbation. Correlate with clinical . context and patient history. >=300 pg/mL - Heart Failure likely. Correlate with clinical . context and patient history. BNP testing is performed using different testing methodology at [facility] than at other [facility]. Direct result comparisons should only be made within the same method. Performed By: #### B MP #### [facility] [address] [place], [place] [id number] CBCon 11-18-2020 Erythrocyte distribution width (RBC) [Ratio] 13.3 % Normal 11.5 - 14.5 [facility] [place] Comment on above: Performed By: #### C BC ####[address] [place], [place] [id number] Hematocrit (Bld) [Volume fraction] 44.7 % Normal 41.0 - 52.0 [facility] [place] Comment on above: Performed By: #### C BC ####[facility] [place], [place] [id number] Hemoglobin (Bld) [Mass/Vol] 14.6 g/dL Normal 13.5 - 17.5 [facility] [place] Comment on above: Performed By: #### C BC ####[address] [id number] MCHC (RBC) [Mass/Vol] 32.7 g/dL Normal 32.0 - 36.0 [facility] [place] Comment on above: Performed By: #### C BC ####[address] [place], [place] [phone] MCV (RBC) [Entitic vol] 92 fL Normal 80 - 100 [facility] [place] Comment on above: Performed By: #### C BC ####[address] [place], [place] [id number] Platelets (Bld) [#/Vol] 395 10*3/uL Normal 150 - 450 [facility] [place] Comment on above: Performed By: #### C BC ####[facility] [place], [place] [phone] RBC 4.85 x10E12/L Normal 4.50 - 5.90 [facility] [place] Comment on above: Performed By: #### C BC ####[facility] [place], [place] [id number] WBC (Bld) [#/Vol] 21.9 10*3/uL High 4.4 - 11.3 [facility] Comment on above: Performed By: #### C BC ####[address] [id number] CHEST 1 VIEWon 11-18-2020 CHEST 1 VIEW STUDY: Chest Radiograph; 11/18/2020 7:22 PM. INDICATION: Concern for dissection, chest pain. COMPARISON: None Available. ACCESSION NUMBER(S): [id number] ORDERING CLINICIAN: JERRY BLAIR MD TECHNIQUE: Frontal chest was obtained at 1919 hours. FINDINGS: CARDIOMEDIASTINAL SILHOUETTE: Cardiomediastinal silhouette is normal in size and configuration. LUNGS: Lungs are clear. ABDOMEN: No remarkable upper abdominal findings. BONES: No acute osseous changes. IMPRESSION: No acute cardiopulmonary process seen. Signed by Racquel Griffiths MD Electronically signed by: RACQUEL GRIFFITHS MD Normal [facility] [place] COMPREHENSIVE PANELon 2020 Albumin [Mass/Vol] 4.2 g/dL Normal 3.4 - 5.0 [facility] Comment on above: Performed By: #### C MP ####[facility] [place], [place] [id number] ALP [Catalytic activity/Vol] 74 U/L Normal 33 - 120 [facility] [place] Comment on above: Performed By: #### C MP ####[address] [place], [place] [id number] ALT [Catalytic activity/Vol] 19 U/L Normal 10 - 52 [facility] [place] Comment on above: Result Comment: Carmelita ents treated with Sulfasalazine may generate falsely decreased results for ALT. Performed By: #### C MP ####[facility] [place], [place] [id number] Anion gap [Moles/Vol] 12 mmol/L Normal 10 - 20 [facility] [place] Comment on above: Performed By: #### C MP ####[address] [id number] AST [Catalytic activity/Vol] 15 U/L Normal 9 - 39 [facility] [place] Comment on above: Performed By: #### C MP ####[address] [id number] Bilirubin [Mass/Vol] 0.3 mg/dL Normal 0.0 - 1.2 [facility] Comment on above: Performed By: #### C MP ####[address] [id number] Calcium [Mass/Vol] 9.4 mg/dL Normal 8.6 - 10.3 [facility] Comment on above: Performed By: #### C MP ####[address] [id number] Chloride [Moles/Vol] 107 mmol/L Normal 98 - 107 [facility] Comment on above: Performed By: #### C MP ####[address] [id number] Creatinine [Mass/Vol] 1.12 mg/dL Normal 0.50 - 1.30 [facility] [place] Comment on above: Performed By: #### C MP ####[address] [id number] GFR- AM. >60 Normal >60 [facility] [place] Comment on above: Result Comment: CALC ULATIONS OF ESTIMATED GFR ARE PERFORMED USING THE MDRD STUDY EQUATION FOR THE IDMS-TRACEABLE CREATININE METHODS. CLIN CHEM 2007;53:766-72 Performed By: #### C MP ####[address] [id number] GFR-NON AM. >60 Normal >60 [facility] Comment on above: Performed By: #### C MP ####[facility] [place], [place] [id number] Glucose [Mass/Vol] 113 mg/dL High 74 - 99 [facility] Comment on above: Performed By: #### C MP ####[facility] [place], [place] [id number] HCO3 (Bld) [Moles/Vol] 28 mmol/L Normal 21 - 32 [facility] [place] Comment on above: Performed By: #### C MP ####[facility] [place], [place] [id number] Potassium [Moles/Vol] 3.8 mmol/L Normal 3.5 - 5.3 [facility] [place] Comment on above: Performed By: #### C MP ####[address] [place], [place] [id number] Protein [Mass/Vol] 7.0 g/dL Normal 6.4 - 8.2 [facility] Comment on above: Performed By: #### C MP ####[address] [id number] Sodium [Moles/Vol] 143 mmol/L Normal 136 - 145 [facility] Comment on above: Performed By: #### C MP ####[address] [id number] Urea nitrogen [Mass/Vol] 19 mg/dL Normal 6 - 23 [facility] [place] Comment on above: Performed By: #### C MP ####[address] [id number] CORONAVIRUS 2019, SCREEN ASY MPTOMATICon 11-18-2020 SARS-CoV-2 (COVID-19) RNA ALLIE+probe Ql (Unsp spec) Not detected Normal Not Detected [facility] [place] Comment on above: Result Comment: . This test has received FDA Emergency Use Authorization (EUA) and has been verified by [facility]. This test is only authorized for the duration of time that circumstances exist to justify the authorization of the emergency use of in vitro diagnostic tests for the detection of SARS-CoV-2 virus and/or diagnosis of COVID-19 infection under section 564(b)(1) of the Act, 21 U.S.C. 360bbb-3(b)(1), unless the authorization is terminated or revoked sooner. [facility] is certified under CLIA-88 as qualified to perform high complexity testing. Testing is performed in the [facility] laboratory located at [address] [place] [address]. SARS-CoV-2/Flu/RSV Multiplex Test: Fact sheet for providers: https://www.fda.gov/media/294562/download Fact sheet for patients: https://www.fda.gov/media/855304/download Performed By: #### C OVSC ####[facility] [place], [place] [phone] Lab Specimen Source Nasal, Nasopharyngeal Normal [facility] [place] Comment on above: Performed By: #### C OVSC ####[address] [place], [place] [id number] Covid 19 Resultson 1 SARS-CoV-2 (COVID-19) RNA [...] You may also be contacted by the [facility] to see if any of your [...] or Naproxen (Aleve) can also be used. Qwvp-kos-lalkusy cough and cold medicines can be used according to the instructions on the package. Some pwfg-svp-ewxvtki medicines also contain acetaminophen. Make sure you [...] water are not available, use alcohol-based hand surgical appliance fitter. Avoid touching your eyes, nose, and mouth [...] 24 oliva (more content not included)... Normal [facility] [place] PCI (Percutaneous Cardiac In tervention)on 11-18-2020 PCI (Percutaneous Cardiac Intervention) [facility], [employer]encil [employer] [address] [place] [address] Cardiovascular Catheterization Report Patient Name: Ashok Doss Performing Physician: Sheridan Stacy MD Study Date: 11/18/2020 Verifying Physician: Sheridan Stacy MD MRN/PID: [id number] Contracts Intern: Accession/Order#: [id number] Referring Physician: [id number] José Miguel Posey MD Date of : [...] a modified Seldinger technique. Subsequently a 6 Tunisian sheath was placed in the right femoral [...] less than 10% distal stenosis. 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 [...] mid to distal right coronary artery. Pre-intervention LEIECER flow was 0. Percutaneous coronary intervention was [...] used. Complications (more content not included)... Normal [facility] [place] Provider Note - ED v3on 11-02 Provider [...] try and relieve some of his symptoms. Pen And Pencil Repairer was activated prehospital and the Pen And Pencil Repairer team was at the bedside upon his arrival. Obtained a quick chest x-ray given he reported that the pain was sharp and radiating to his arm which not show pneumothorax and did not show a widened mediastinum so I doubt he is having dissection. Pen And Pencil Repairer was available so patient was taken directly to Pen And Pencil Repairer for percutaneous intervention for his ST segment elevation DE. I did speak with the skin tanner team to let them know that the patient be coming to them afterwards. DIAGNOSIS: STEMI DISPOSITION: 1) Pen And Pencil Repairer HISTORY OF PRESENTING ILLNESS ASHOK is a [...] Updated: 18-Nov-2020 20:27 by Jerry Blair) Normal [facility] [place] TROPONIN Ion 11-18-2020 Troponin I.cardiac [Mass/Vol] 0.03 ng/mL Normal 0.00 - 0.03 [facility] [place] Comment on above: Result Comment: LESS THAN [...] is performed using different testing methodology at [facility] than at other [facility]. Direct result comparisons should only be made within the same method. Performed By: #### T ROP2 ####[facility] [place], [place] [phone] Troponinon 05-05-2020 Troponin I.cardiac [Mass/Vol] 7 ng/L Normal 0-22 [facility] Comment on above: Result Comment: High Sensitivity Troponin values cannot be compared with other Troponin methodologies. Patients with high levels of Biotin oral intake (i.e >5mg/day) may have falsely decreased Troponin levels. Samples collected within 8 hours of biotin intake may require additional information for diagnosis. Performed By: #### T WILLY #### [facility] [address] [place] [id number] Civil Defense Director: Shane Peña MD Troponin I.cardiac [Mass/Vol] NOT REPORTED [facility] Phone: Troponin T.cardiac [Mass/Vol] NOT REPORTED <0.03 ng/mL [facility] Phone: Troponin, High Sensitivity 7 ng/L 0 - 22 ng/L [facility] Phone: Comment on above: High Sensitivity Troponin values cannot be compared with other Troponin methodologies. Patients with high levels of Biotin oral intake (i.e >5mg/day) may have falsely decreased Troponin levels. Samples collected within 8 hours of biotin intake may require additional information for diagnosis. Troponinon 05-04-2020 Troponin I.cardiac [Mass/Vol] NOT REPORTED Normal [facility] Comment on above: Performed By: #### T WILLY #### [facility] [address] [place] [phone] Civil Defense Director: Shane Peña MD CBCon 05-03-2020 Erythrocyte distribution width (RBC) [Ratio] 12.9 % Normal 11.8-14.4 [facility] Comment on above: Performed By: #### C BC, CP, LIPR, TSH #### [facility] [address] [place] [address] [id number] Civil Defense Director: Shane Peña MD Hematocrit (Bld) [Volume fraction] 43.3 % Normal 40.7-50.3 [facility] Comment on above: Performed By: #### C BC, CP, LIPR, TSH #### [facility] [address] [place] [address] Civil Defense Director: Shane Peña MD Hemoglobin (Bld) [Mass/Vol] 14.0 g/dL Normal 13.0-17.0 [facility] Comment on above: Performed By: #### C BC, CP, LIPR, TSH #### [facility] [address] [place] [address] Civil Defense Director: Shane Peña MD MCH (RBC) [Entitic mass] 29.6 pg Normal 25.2-33.5 [facility] Comment on above: Performed By: #### C BC, CP, LIPR, TSH #### [facility] [address] [place] [address] Civil Defense Director: Shane Peña MD MCHC (RBC) [Mass/Vol] 32.3 g/dL Normal 28.4-34.8 [facility] Comment on above: Performed By: #### C BC, CP, LIPR, TSH #### [facility] [address] [place] [address] Civil Defense Director: Shane Peña MD MCV (RBC) [Entitic vol] 91.5 fL Normal 82.6-102.9 [facility] Comment on above: Performed By: #### C BC, CP, LIPR, TSH #### [facility] [address] [place] [address] Civil Defense Director: Shane Peña MD NRBC Automated 0.0 per 100 WBC Normal 0.0 [facility] Comment on above: Performed By: #### C BC, CP, LIPR, TSH #### [facility] [address] [place] [address] Civil Defense Director: Shane Peña MD Platelet mean volume (Bld) [Entitic vol] 9.1 fL Normal 8.1-13.5 [facility] Comment on above: Performed By: #### C BC, CP, LIPR, TSH #### [facility] [address] [place] [address] Civil Defense Director: Shane Peña MD Platelets (Bld) [#/Vol] 410 10*3/uL Normal 138-453 [facility] Comment on above: Performed By: #### C BC, CP, LIPR, TSH #### [facility] [address] [place] [address] Civil Defense Director: Shane Peña MD RBC (Bld) [#/Vol] 4.73 10*6/uL Normal 4.21-5.77 [facility] Comment on above: Performed By: #### C BC, CP, LIPR, TSH #### [facility] [address] [place] [address] Civil Defense Director: Shane Peña MD WBC (Bld) [#/Vol] 14.2 10*3/uL High 3.5-11.3 [facility] Comment on above: Performed By: #### C BC, CP, LIPR, TSH #### [facility] [address] [place] [address] Civil Defense Director: Shane Peña MD Erythrocyte distribution width (RBC) [Ratio] 12.9 % 11.8 - 14.4 % [facility] Phone: Hematocrit (Bld) [Volume fraction] 43.3 % 40.7 - 50.3 % [facility] Phone: Hemoglobin (Bld) [Mass/Vol] 14.0 g/dL 13 - 17 g/dL [facility] Phone: Interpretation and review of laboratory results Abnormal [facility] Phone: MCH (RBC) [Entitic mass] 29.6 pg 25.2 - 33.5 pg [facility] Phone: MCHC (RBC) [Mass/Vol] 32.3 g/dL 28.4 - 34.8 g/dL [facility] Phone: MCV (RBC) [Entitic vol] 91.5 fL 82.6 - 102.9 fL [facility] Phone: Platelet mean volume (Bld) [Entitic vol] 9.1 fL 8.1 - 13.5 fL [facility] Phone: Platelets (Bld) [#/Vol] 410 10*3/uL [facility] Phone: RBC (Bld) [#/Vol] 4.73 10*6/uL 4.21 - 5.7 7 m/uL [facility] Phone: WBC (Bld) [#/Vol] 0.0 10*3/uL 0.0 per 10 0 WBC [facility] Phone: WBC (Bld) [#/Vol] 14.2 10*3/uL High [facility] Phone: Comp Metabolic Profon 2020 (cont.) Normal [facility] Comment on above: Result Comment: Aver age GFR for 50-59 years old: 93 mL/min/1.73sq m Chronic Kidney Disease: <60 mL/min/1.73sq m Kidney failure: <15 mL/min/1.73sq m eGFR calculated using average adult body mass. Additional eGFR calculator available at: http://www.[employer].com/multiple_crcl_2011.htm Performed By: #### C BC, CP, LIPR, TSH #### [employer] [place] [address] Civil Defense Director: Shane Peña MD Albumin [Mass/Vol] 4.1 g/dL Normal 3.5-5.2 [facility] Comment on above: Performed By: #### C BC, CP, LIPR, TSH #### [facility] [address] [place] [address] Civil Defense Director: Shane Peña MD Albumin/Globulin [Mass ratio] 1.8 {ratio} Normal 1.0-2.5 [facility] Comment on above: Performed By: #### C BC, CP, LIPR, TSH #### [address] [address] Civil Defense Director: Shane Peña MD Alkaline Phos 80 U/L Normal 40-129 [facility] Comment on above: Performed By: #### C BC, CP, LIPR, TSH #### [address] [address] Civil Defense Director: Shane Peña MD ALT [Catalytic activity/Vol] 18 U/L Normal 5-41 [facility] Comment on above: Performed By: #### C BC, CP, LIPR, TSH #### [facility] [address] [place] [address] Civil Defense Director: Shane Peña MD Anion gap [Moles/Vol] 9 mmol/L Normal 9-17 [facility] Comment on above: Performed By: #### C BC, CP, LIPR, TSH #### [facility] [address] [place] [address] Civil Defense Director: Shane Peña MD AST [Catalytic activity/Vol] 15 U/L Normal <40 [facility] Comment on above: Performed By: #### C BC, CP, LIPR, TSH #### [facility] [address] [place] [address] Civil Defense Director: Shane Peña MD Bilirubin Ql (U) 0.32 mg/dL Normal 0.3-1.2 [facility] Comment on above: Performed By: #### C BC, CP, LIPR, TSH #### [facility] [address] [place] [address] Civil Defense Director: Shane Peña MD Calcium [Mass/Vol] 9.4 mg/dL Normal 8.6-10.4 [facility] Comment on above: Performed By: #### C BC, CP, LIPR, TSH #### [address] [address] Civil Defense Director: Shane Peña MD Chloride [Moles/Vol] 102 mmol/L Normal 98-107 [facility] Comment on above: Performed By: #### C BC, CP, LIPR, TSH #### [facility] [address] [place] [address] Civil Defense Director: Shane Peña MD CO2 [Moles/Vol] 26 mmol/L Normal 20-31 [facility] Comment on above: Performed By: #### C BC, CP, LIPR, TSH #### [address] [address] Civil Defense Director: Shane Peña MD Creatinine [Mass/Vol] 0.86 mg/dL Normal 0.70-1.20 [facility] Comment on above: Performed By: #### C BC, CP, LIPR, TSH #### [facility] [address] [place] [address] Civil Defense Director: Shane Peña MD GFR, Amer >60 Normal >60 [facility] Comment on above: Performed By: #### C BC, CP, LIPR, TSH #### [facility] [address] [place] [address] Civil Defense Director: Shane Peña MD GFR,non Amer >60 Normal >60 [facility] Comment on above: Performed By: #### C BC, CP, LIPR, TSH #### [facility] [address] [place] [address] Civil Defense Director: Shane Peña MD Glucose [Mass/Vol] 95 mg/dL Normal 70-99 [facility] Comment on above: Performed By: #### C BC, CP, LIPR, TSH #### [facility] [address] [place] [address] Civil Defense Director: Shane Peña MD Potassium [Moles/Vol] 4.3 mmol/L Normal 3.7-5.3 [facility] Comment on above: Performed By: #### C BC, CP, LIPR, TSH #### [facility] [address] [place] [address] Civil Defense Director: Shane Peña MD Protein [Mass/Vol] 6.4 g/dL Normal 6.4-8.3 [facility] Comment on above: Performed By: #### C BC, CP, LIPR, TSH #### [facility] [address] [place] [address] Civil Defense Director: Shane Peña MD Sodium [Moles/Vol] 137 mmol/L Normal 135-144 [facility] Comment on above: Performed By: #### C BC, CP, LIPR, TSH #### [facility] [address] [place] [address] Civil Defense Director: Shane Peña MD Urea nitrogen [Mass/Vol] 17 mg/dL Normal 6-20 [facility] Comment on above: Performed By: #### C BC, CP, LIPR, TSH #### [facility] [address] [place] [address] Civil Defense Director: Shane Peña MD BUN/CRE Ratio NOT REPORTED Normal 9-20 [facility] Comment on above: Performed By: #### C BC, CP, LIPR, TSH #### [facility] [address] [place] [address] Civil Defense Director: Shane Peña MD Staging: NOT REPORTED Normal [facility] Comment on above: Performed By: #### C BC, CP, LIPR, TSH #### [employer] [facility] [place] [address] Civil Defense Director: Shane Peña MD Comprehensive Metabolic Pane feng 05-03-2020 Albumin [Mass/Vol] 4.1 g/dL 3.5 - 5.2 g/dL [facility] Phone: Albumin/Globulin [Mass ratio] 1.8 {ratio} [facility] Phone: ALP [Catalytic activity/Vol] 80 U/L 40 - 129 U/L [employer] Work Phone: ALT [Catalytic activity/Vol] 18 U/L 5 - 41 U/L [facility] Phone: Anion gap [Moles/Vol] 9 mmol/L 9 - 17 mmol/L [facility] Phone: AST [Catalytic activity/Vol] 15 U/L <40 [facility] Phone: Bilirubin Ql (U) 0.32 mg/dL 0.3 - 1.2 mg/dL [employer] Phone: Bun/Cre Ratio NOT REPORTED [facility] Work Phone: Calcium [Mass/Vol] 9.4 mg/dL 8.6 - 10. 4 mg/dL [employer] Phone: Chloride [Moles/Vol] 102 mmol/L 98 - 10 7 mmol/L [employer] Work Phone: CO2 [Moles/Vol] 26 mmol/L 20 - 31 mmol/L [facility] Phone: Creatinine [Mass/Vol] 0.86 mg/dL 0.7 - 1.2 mg/dL [facility] Phone: GFR >60 >60 mL/min [employer] Phone: GFR Non- >60 >60 mL/min [facility] Phone: GFR/1.73 sq M predicted among non-blacks MDRD (S/P/Bld) [Vol rate/Area] [employer] Phone: Comment on above: Average GFR for 50-5 9 years old: 93 mL/min/1.73sq m Chronic Kidney Disease: <60 mL/min/1.73sq m Kidney failure: <15 mL/min/1.73sq m eGFR calculated using average adult body mass. Additional eGFR calculator available at: http://www.[employer]_crcl_2012.htm GFR/1.73 sq M predicted among non-blacks MDRD (S/P/Bld) [Vol rate/Area] NOT REPORTED [facility] Phone: Glucose [Mass/Vol] 95 mg/dL 70 - 99 mg/dL [employer] Phone: Potassium [Moles/Vol] 4.3 mmol/L 3.7 - 5.3 mmol/L [facility] Phone: Protein [Mass/Vol] 6.4 g/dL 6.4 - 8.3 g/dL [employer] Phone: Sodium [Moles/Vol] 137 mmol/L 135 - 144 mmol/L [employer] Phone: Urea nitrogen [Mass/Vol] 17 mg/dL 6 - 20 mg/dL [employer] Phone: Lipid Panelon 05-03-2020 Cholesterol [Mass/Vol] 172 mg/dL <200 [employer] Phone: Comment on above: Cholesterol Guidelines: <200 Desirable 200-240 Borderline >240 Undesirable Cholesterol in HDL [Mass/Vol] 38 mg/dL Low >40 [employer] Phone: Comment on above: HDL Guidelines: <40 Undesirable 40-59 Borderline >59 Desirable Cholesterol in LDL [Mass/Vol] 106 mg/dL 0 - 130 mg/dL [facility] Phone: Comment on above: LDL Guidelines: <100 Desirable 100-129 Near to/above Desirable 130-159 Borderline >159 Undesirable Direct (measured) LDL and calculated LDL are not interchangeable tests. Cholesterol in VLDL [Mass/Vol] NOT REPORTED 1 - 30 mg/dL [facility] Phone: Cholesterol.total/Ch olesterol in HDL [Mass ratio] 4.5 {ratio} <5 [facility] Phone: Interpretation and review of laboratory results Abnormal [facility] Phone: Triglyceride [Mass/Vol] 138 mg/dL <150 [facility] Phone: Comment on above: Triglyceride Guidelines: <150 Desirable 150-199 Borderline 200-499 High >499 Very high Based on AHA Guidelines for fasting triglyceride, December 2011. Lipid Profileon 05-03-2020 Cholesterol [Mass/Vol] 172 mg/dL Normal <200 [facility] Comment on above: Result Comment: Cholesterol Guidelines: <200 Desirable 200-240 Borderline >240 Undesirable Performed By: #### C BC, CP, LIPR, TSH #### [facility] [address] [place] [address] [phone] Civil Defense Director: Shane Peña MD Cholesterol in HDL [Mass/Vol] 38 mg/dL Low >40 [facility] Comment on above: Result Comment: HDL Guidelines: <40 Undesirable 40-59 Borderline >59 Desirable Performed By: #### C BC, CP, LIPR, TSH #### [facility] [address] [place] [address] [phone] Civil Defense Director: Shane Peña MD Cholesterol in LDL [Mass/Vol] 106 mg/dL Normal 0-130 [facility] Comment on above: Result Comment: LDL Guidelines: <100 Desirable 100-129 Near to/above Desirable 130-159 Borderline >159 Undesirable Direct (measured) LDL and calculated LDL are not interchangeable tests. Performed By: #### C BC, CP, LIPR, TSH #### [facility] [address] [place] [address] [phone] Civil Defense Director: Shane Peña MD Cholesterol.total/Ch olesterol in HDL [Mass ratio] 4.5 {ratio} Normal <5 [facility] Comment on above: Performed By: #### C BC CP, LIPR, TSH #### [facility] [address] [place] [address] [phone] Civil Defense Director: Shane Peña MD Triglyceride [Mass/Vol] 138 mg/dL Normal <150 [facility] Comment on above: Result Comment: Triglyceride Guidelines: <150 Desirable 150-199 Borderline 200-499 High >499 Very high Based on AHA Guidelines for fasting triglyceride, December 2011. Performed By: #### C TARIQ CP, LIPR, TSH #### [facility] [address] [place] [address] [phone] Civil Defense Director: Shane Peña MD Cholesterol in VLDL [Mass/Vol] NOT REPORTED Normal 1-30 [facility] Comment on above: Performed By: #### C BC CP, LIPR, TSH #### [facility] [address] [place] [address] [phone] Civil Defense Director: Shane Pñea MD TSH without Reflexon 021 TSH Qn 1.35 m[IU]/L [facility] [employer] Work Phone: Thyroid Stim. Horm.on 2020 TSH Qn 1.35 m[IU]/L Normal 0.30-5.00 [facility] Comment on above: Performed By: #### C BC, CP, LIPR, TSH #### [facility] [address] [place] [address] [phone] Civil Defense Director: Shane Peña MD XR CHEST (2 VW)on [...] Stephan Soto MD 05/03/20 Final result Normal [facility] No evidence for acut e cardiopulmonary pathology. [facility] Phone: EXAMINATION: TWO XRA Y VIEWS OF [...] structures and soft tissues are grossly intact. [facility] Phone: Robert, Mh[facility] Incoming Radiant Results From [employer] - 05/03/2020 11:24 AM EST EXAMINATION: TWO [...] IMPRESSION: No evidence for acute cardiopulmonary pathology. [facility] Phone: Covid-19 Ambulatoryon 2019 SARS-CoV-2, ALLIE Not Detected Not Detected [facility] [place] Comment on above: (NOTE) This nucleic acid amplification test was developed and its performance characteristics determined by [employer]. Nucleic acid amplification tests include PCR and [...] detected) result in this assay. Performed At: [facility] [address] [facility], [place] [id number] Lilian Severino [facility] Ph:[phone] [id number] 11-09-2019 SARS-CoV-2 Not Detected Normal Not Detected [facility] Comment on above: Result Comment: (NOT E) This nucleic acid amplification test was developed and its performance characteristics determined by [employer]. Nucleic acid amplification tests include PCR and [...] detected) result in this assay. Performed At: [facility] [address] [facility], [place] [id number] Lilian Severino [facility] Ph:[phone] Performed By: #### A COV #### [facility] [address] [place] [address] Civil Defense Director: MD ARLEN Perrin 12 Leadon 11-04-2019 Atrial Rate 82 BPM [place], [place] P Denio 52 degrees [place] P-R Interval 146 ms [place] Q-T Interval 388 ms [place] QRS Duration 102 ms [place] QTc Calculation (Bazett) 453 ms [place] R Denio -21 degrees [place] T Denio 58 degrees [place] Ventricular Rate 82 BPM [place] Robert, Mhpn Incoming E kg Results From [place] - 11/04/2019 10:29 AM EDT Normal sinus rhythm Normal ECG No previous ECGs available [place] Normal sinus rhythm Normal ECG No previous ECGs available [place] Basic Metabolic Panelon 10-04 Anion gap [Moles/Vol] 10 mmol/L 9 - 17 mmol/L [place] Bun/Cre Ratio NOT REPORTED [place] Calcium [Mass/Vol] 9.2 mg/dL 8.6 - 10. 4 mg/dL [place] Chloride [Moles/Vol] 104 mmol/L 98 - 10 7 mmol/L [place] CO2 [Moles/Vol] 27 mmol/L 20 - 31 mmol/L [place] Creatinine [Mass/Vol] 0.83 mg/dL 0.7 - 1.2 mg/dL [place] GFR >60 >60 mL/min [place] GFR Non- >60 >60 mL/min [place] GFR/1.73 sq M predicted among non-blacks MDRD (S/P/Bld) [Vol rate/Area] [place] Comment on above: Average GFR for 50-5 9 years old: 93 mL/min/1.73sq m Chronic Kidney Disease: <60 mL/min/1.73sq m Kidney failure: <15 mL/min/1.73sq m eGFR calculated using average adult body mass. Additional eGFR calculator available at: http://www.[employer]/multiple_crcl_2012.htm GFR/1.73 sq M predicted among non-blacks MDRD (S/P/Bld) [Vol rate/Area] NOT REPORTED [place] Glucose [Mass/Vol] 103 mg/dL High 70 - 99 mg/dL [place], [place] Interpretation and review of laboratory results Abnormal [place] Potassium [Moles/Vol] 4.5 mmol/L 3.7 - 5.3 mmol/L [place] Sodium [Moles/Vol] 141 mmol/L 135 - 144 mmol/L [place] Urea nitrogen [Mass/Vol] 18 mg/dL 6 - 20 mg/dL [place] Basic Metabolic Profon 11-01 (cont.) Normal [facility] Comment on above: Result Comment: Aver age GFR for 50-59 years old: 93 mL/min/1.73sq m Chronic Kidney Disease: <60 mL/min/1.73sq m Kidney failure: <15 mL/min/1.73sq m eGFR calculated using average adult body mass. Additional eGFR calculator available at: http://www.[employer]/multiple_crcl_2012.htm Performed By: #### C KLAUS, BMP #### [facility] [address] Civil Defense Director: Cheko Boykin DO Anion gap [Moles/Vol] 10 mmol/L Normal 9-17 [facility] Comment on above: Performed By: #### C KLAUS, BMP #### [facility] [address] Civil Defense Director: Cheko Boykin DO Calcium [Mass/Vol] 9.2 mg/dL Normal 8.6-10.4 [facility] Comment on above: Performed By: #### C KLAUS, BMP #### [facility] [address] Civil Defense Director: Cheko Boykin DO Chloride [Moles/Vol] 104 mmol/L Normal 98-107 [facility] Comment on above: Performed By: #### C DP, BMP #### [facility] [address] [place] [address] Civil Defense Director: Cheko Boykin DO CO2 [Moles/Vol] 27 mmol/L Normal 20-31 [facility] Comment on above: Performed By: #### C DP, BMP #### [facility] [address] [place] [address] Civil Defense Director: Cheko Boykin, DO Creatinine [Mass/Vol] 0.83 mg/dL Normal 0.70-1.20 [facility] Comment on above: Performed By: #### C DP, BMP #### [facility] [address] [place] [address] Civil Defense Director: Cheko Boykin DO GFR, Amer >60 Normal >60 [facility] Comment on above: Performed By: #### C DP, BMP #### [facility] [address] [place] [address] Civil Defense Director: Cheko Boykin DO GFR,non Amer >60 Normal >60 [facility] Comment on above: Performed By: #### C DP, BMP #### [facility] [address] [place] [place] [address] Civil Defense Director: Cheko Boykin DO Glucose [Mass/Vol] 103 mg/dL High 70-99 [facility] Comment on above: Performed By: #### C DP, BMP #### [facility] [address] [place] [address] Civil Defense Director: Cheko Boykin DO Potassium [Moles/Vol] 4.5 mmol/L Normal 3.7-5.3 [facility] Comment on above: Performed By: #### C DP, BMP #### [facility] [address] [place] [address] Civil Defense Director: Cheko Boykin DO Sodium [Moles/Vol] 141 mmol/L Normal 135-144 [facility] Comment on above: Performed By: #### C DP, BMP #### [facility] [address] [facility] [address] Civil Defense Director: Cheko Boykin DO Urea nitrogen [Mass/Vol] 18 mg/dL Normal 6-20 [facility] Comment on above: Performed By: #### C DP, BMP #### [facility] [address] [place] [address]. [place] [address] Civil Defense Director: Cheko Boykin DO BUN/CRE Ratio NOT REPORTED Normal -20 [facility] Comment on above: Performed By: #### C DP, BMP #### [facility] [address] [place] [address]. [place] [address] Civil Defense Director: Cheko Boykin DO Staging: NOT REPORTED Normal [facility] Comment on above: Performed By: #### C DP, BMP #### [facility] [address] [place] [phone] Civil Defense Director: Cheko Boykin DO CBC Auto Differentialon 08-3 Basophils (Bld) [#/Vol] 0.10 10*3/uL [facility] Basophils/100 WBC (Bld) 1 % 0 - 2 % [place] Differential Type NOT REPORTED [place] Eosinophils (Bld) [#/Vol] 0.60 10*3/uL [place] [facility] Eosinophils/100 WBC (Bld) 4 % 0 - 4 % [facility] Erythrocyte distribution width (RBC) [Ratio] 13.9 % 11.5 - 14.9 % [place] Hematocrit (Bld) [Volume fraction] 42.4 % 41 - 53 % [place] Hemoglobin (Bld) [Mass/Vol] 14.5 g/dL 13.5 - 17.5 g/dL [place] Interpretation and review of laboratory results Abnormal [place] Lymphocytes (Bld) [#/Vol] 4.00 10*3/uL [place] Lymphocytes/100 WBC (Bld) 29 % 24 - 44 % [place] MCH (RBC) [Entitic mass] 30.5 pg 26 - 34 pg [place] MCHC (RBC) [Mass/Vol] 34.2 g/dL 31 - 37 g/dL [place] MCV (RBC) [Entitic vol] 89.1 fL 80 - 100 fL [place] Monocytes (Bld) [#/Vol] 1.00 10*3/uL [place] Monocytes/100 WBC (Bld) 7 % 1 - 7 % [place] Platelet mean volume (Bld) [Entitic vol] 7.1 fL 6 - 12 fL [place] Platelets (Bld) [#/Vol] 378 10*3/uL [place] Platelets (Bld) [#/Vol] NOT REPORTED [place] RBC (Bld) [#/Vol] 4.76 10*6/uL 4.5 - 5.9 m/uL [place] RBC morphology finding Nom (Bld) NOT REPORTED [place] Segmented neutrophils/100 WBC (Bld) 59 % 36 - 66 % [place] Segs Absolute 8.30 [place] WBC (Bld) [#/Vol] 13.9 10*3/uL [place] WBC (Bld) [#/Vol] NOT REPORTED per 100 WBC [place] WBC Morphology NOT REPORTED [place] CBC with Diffon 11-02-2019 Abs. Basophil 0.10 k/uL Normal 0.0-0.2 [facility] Comment on above: Performed By: #### C DP, BMP #### [facility] [address] [place], [place] [phone] Civil Defense Director: Cheko Boykin DO Abs.Neutrophil (Seg) 8.30 k/uL Normal 1.3-9.1 [facility] Comment on above: Performed By: #### C DP, BMP #### [facility] [address] [place] [address] Civil Defense Director: Cheko Boykin DO Basophils/100 WBC (Bld) 1 % Normal 0-2 [facility] Comment on above: Performed By: #### C DP, BMP #### [facility] [place] [address] Civil Defense Director: Cheko Boykin DO Eosinophils (Bld) [#/Vol] 0.60 10*3/uL High 0.0-0.4 [facility] Comment on above: Performed By: #### C DP, BMP #### [facility] [address] [facility] [place] [address] Civil Defense Director: Cheko Boykin DO Eosinophils/100 WBC (Bld) 4 % Normal 0-4 [facility] Comment on above: Performed By: #### C DP, BMP #### [facility] [place] [address] Civil Defense Director: Cheko Boykin DO Erythrocyte distribution width (RBC) [Ratio] 13.9 % Normal 11.5-14.9 [facility] Comment on above: Performed By: #### C DP, BMP #### [facility] [place] [address] Civil Defense Director: Cheko Boykin DO Hematocrit (Bld) [Volume fraction] 42.4 % Normal 41-53 [facility] Comment on above: Performed By: #### C DP, BMP #### [facility] [place] [address] Civil Defense Director: Cheko Boykin DO Hemoglobin (Bld) [Mass/Vol] 14.5 g/dL Normal 13.5-17.5 [facility] Comment on above: Performed By: #### C DP, BMP #### [facility] [address] [place] [address] Civil Defense Director: Cheko Boykin DO Lymphocytes (Bld) [#/Vol] 4.00 10*3/uL Normal 1.0-4.8 [facility] Comment on above: Performed By: #### C DP, BMP #### [facility] [address] [place] [address] Civil Defense Director: Cheko Boykin DO Lymphocytes/100 WBC (Bld) 29 % Normal 24-44 [facility] Comment on above: Performed By: #### C KLAUS, BMP #### [facility] [place] [address] Civil Defense Director: Cheko Boykin DO MCH (RBC) [Entitic mass] 30.5 pg Normal 26-34 [facility] Comment on above: Performed By: #### C DP, BMP #### [facility] [place] [address] Civil Defense Director: Cheko Boykin DO MCHC (RBC) [Mass/Vol] 34.2 g/dL Normal 31-37 [facility] Comment on above: Performed By: #### C DP, BMP #### [facility] [place] [address] Civil Defense Director: Cheko Boykin DO MCV (RBC) [Entitic vol] 89.1 fL Normal 80-100 [facility] Comment on above: Performed By: #### C DP, BMP #### [facility] [place] [address] Civil Defense Director: Cheko Boykin DO Monocytes (Bld) [#/Vol] 1.00 10*3/uL Normal 0.1-1.3 [facility] Comment on above: Performed By: #### C DP, BMP #### [facility] [address] [place] [address] Civil Defense Director: Cheko Boykin DO Monocytes/100 WBC (Bld) 7 % Normal 1-7 [facility] Comment on above: Performed By: #### C DP, BMP #### [facility] [address] [place] [address] Civil Defense Director: Cheko Boykin DO Neutrophil (Seg) 59 % Normal 36-66 [facility] Comment on above: Performed By: #### C DP, BMP #### [facility] [place] [address] Civil Defense Director: Cheko Boykin DO Platelet mean volume (Bld) [Entitic vol] 7.1 fL Normal 6.0-12.0 [facility] Comment on above: Performed By: #### C KLAUS, BMP #### [facility] [place] [address] Civil Defense Director: Cheko Boykin DO Platelets (Bld) [#/Vol] 378 10*3/uL Normal 150-450 [facility] Comment on above: Performed By: #### C KLAUS, BMP #### [facility] [place] [address] Civil Defense Director: Cheko Boykin DO RBC (Bld) [#/Vol] 4.76 10*6/uL Normal 4.5-5.9 [facility] Comment on above: Performed By: #### C DP, BMP #### [facility] [place] [address] Civil Defense Director: Cheko Boykin DO WBC (Bld) [#/Vol] 13.9 10*3/uL High 3.5-11.0 [facility] Comment on above: Performed By: #### C DP, BMP #### [facility] [address] [place] [address] Civil Defense Director: Cheko Boykin DO Abs.Imm.Granulocyte NOT REPORTED Normal 0.00-0.30 [facility] Comment on above: Performed By: #### C DP, BMP #### [facility] [address] [place] [address] Civil Defense Director: Cheko Boykin DO Auto Diff Performed NOT REPORTED Normal [facility] Comment on above: Performed By: #### C DP, BMP #### [facility] [address] [place] [address] Civil Defense Director: Cheko Boykin DO Immature granulocytes (Bld) [#/Vol] NOT REPORTED Normal 0 [facility] Comment on above: Performed By: #### C DP, BMP #### [facility] [address] [place] [address] Civil Defense Director: Cheko Boykin DO NRBC Automated NOT REPORTED Normal [facility] Comment on above: Performed By: #### C DP, BMP #### [facility] [address] [place] [address] Civil Defense Director: Cheko Boykin DO Platelets (Bld) [#/Vol] NOT REPORTED Normal [facility] Comment on above: Performed By: #### C DP, BMP #### [facility] [address] [place] [address] Civil Defense Director: Cheko Boykin DO RBC morphology finding Nom (Bld) NOT REPORTED Normal [facility] Comment on above: Performed By: #### C DP, BMP #### [facility] [address] [place] [address] Civil Defense Director: Cheko Boykin DO WBC Morphology NOT REPORTED Normal [facility] Comment on above: Performed By: #### C KLAUS, LORE #### [facility] [address] [place] [address] Civil Defense Director: Cheko Boykin DO Otheron 11-02-2019 Immature granulocytes (Bld) [#/Vol] NOT REPORTED 0 % [facility] MRI KNEE LEFT WO CONTRASTon 10-28-2019 MRI [...] quadriceps tendinosis. 3. Moderate joint effusion. 4. Dhoq-kz-bmufdyzi patellofemoral chondromalacia. Mild medial compartment chondromalacia. Superimposed partial and full-thickness fissuring of the weight-bearing medial femoral condyle. 5. Mild edema in the soft tissues about the knee. Interpreted by: Simeon Long MD Signed by: Simeon Long MD 10/28/19 Final result Normal [facility] 1. Complex multidirectional tearing and volume loss in the posterior horn of the medial meniscus. Degeneration and outward extrusion of the medial meniscus body. 2. Mild multifocal patellar tendinosis. Mild distal quadriceps tendinosis. 3. Moderate joint effusion. 4. Rqku-tw-ynkdphol patellofemoral chondromalacia. Mild medial compartment chondromalacia. Superimposed partial and full-thickness fissuring of the weight-bearing medial femoral condyle. 5. Mild edema in the soft tissues about the knee. [facility] EXAMINATION: MRI OF THE LEFT KNEE WITHOUT [...] the soft tissues about the knee. [facility] [place] Robert, Mh[employer] Incoming Radiant Results From [employer] - 10/28/2019 3:10 PM EDT EXAMINATION: MRI [...] quadriceps tendinosis. 3. Moderate joint effusion. 4. Yqkc-jo-vyleoxtv patellofemoral chondromalacia. Mild medial compartment chondromalacia. Superimposed partial and full-thickness fissuring of the weight-bearing medial femoral condyle. 5. Mild edema in the soft tissues about the knee. [place] XR KNEE LEFT (3 VIEWS)on XR [...] Roz Mora MD 09/29/19 Final result Normal [facility] Small joint effusion. [place] EXAMINATION: THREE X RAY VIEWS OF [...] within the medial compartment. Small joint effusion. [place] Robert, [facility] Incoming Radiant Results From [employer] - 09/29/2019 2:11 PM EDT EXAMINATION: THREE [...] Small joint effusion. IMPRESSION: Small joint effusion. [place] Uric Acidon 09-28-2019 Urate [Mass/Vol] 6.0 mg/dL 3.4 - 7 mg/dL [place] Uric Acidon 12-09-2018 Urate [Mass/Vol] 5.8 mg/dL 3.4 - 7 mg/dL [place] CBCon 11-05-2018 Erythrocyte distribution width (RBC) [Ratio] 13.1 % 11.8 - 14.4 % [place] Hematocrit (Bld) [Volume fraction] 46.1 % 40.7 - 50.3 % [place] Hemoglobin (Bld) [Mass/Vol] 14.9 g/dL 13 - 17 g/dL [place] Interpretation and review of laboratory results Abnormal [place] MCH (RBC) [Entitic mass] 31.0 pg 25.2 - 33.5 pg [place] MCHC (RBC) [Mass/Vol] 32.3 g/dL 28.4 - 34.8 g/dL [place] MCV (RBC) [Entitic vol] 95.8 fL 82.6 - 102.9 fL [place] Platelet mean volume (Bld) [Entitic vol] 9.2 fL 8.1 - 13.5 fL [place] Platelets (Bld) [#/Vol] 374 10*3/uL [place] RBC (Bld) [#/Vol] 4.81 10*6/uL 4.21 - 5.7 7 m/uL [place] WBC (Bld) [#/Vol] 11.8 10*3/uL [place] WBC (Bld) [#/Vol] 0.0 10*3/uL 0.0 per 10 0 WBC [place] Comprehensive Metabolic Pane feng 11-05-2018 Albumin [Mass/Vol] 4.2 g/dL 3.5 - 5.2 g/dL [place] Albumin/Globulin [Mass ratio] 1.7 {ratio} [place] ALP [Catalytic activity/Vol] 83 U/L 40 - 129 U/L [place] ALT [Catalytic activity/Vol] 19 U/L 5 - 41 U/L [place] Anion gap [Moles/Vol] 16 mmol/L 9 - 17 mmol/L [place] AST [Catalytic activity/Vol] 15 U/L <40 [place] Bilirubin Ql (U) 0.29 mg/dL Low 0.3 - 1.2 mg/dL [place] Bun/Cre Ratio NOT REPORTED [place] Calcium [Mass/Vol] 9.5 mg/dL 8.6 - 10. 4 mg/dL [place] Chloride [Moles/Vol] 104 mmol/L 98 - 10 7 mmol/L [place] CO2 [Moles/Vol] 26 mmol/L 20 - 31 mmol/L [place] Creatinine [Mass/Vol] 0.81 mg/dL 0.7 - 1.2 mg/dL [place] GFR >60 >60 mL/min [place] GFR Non- >60 >60 mL/min [place] GFR/1.73 sq M predicted among non-blacks MDRD (S/P/Bld) [Vol rate/Area] NOT REPORTED [place] GFR/1.73 sq M predicted among non-blacks MDRD (S/P/Bld) [Vol rate/Area] [place] Comment on above: Average GFR for 50-5 9 years old: 93 mL/min/1.73sq m Chronic Kidney Disease: <60 mL/min/1.73sq m Kidney failure: <15 mL/min/1.73sq m eGFR calculated using average adult body mass. Additional eGFR calculator available at: http://www.[employer]/multiple_crcl_2012.htm Glucose [Mass/Vol] 99 mg/dL 70 - 99 mg/dL [place] Potassium [Moles/Vol] 4.4 mmol/L 3.7 - 5.3 mmol/L [place] Protein [Mass/Vol] 6.7 g/dL 6.4 - 8.3 g/dL [place] Sodium [Moles/Vol] 146 mmol/L High 135 - 144 mmol/L [place] Urea nitrogen [Mass/Vol] 17 mg/dL 6 - 20 mg/dL [place] Lipid Panelon 11-05-2018 Cholesterol [Mass/Vol] 199 mg/dL <200 [place], [place] Comment on above: Cholesterol Guidelines: <200 Desirable 200-240 Borderline >240 Undesirable Cholesterol in HDL [Mass/Vol] 42 mg/dL >40 [place], [place] Comment on above: HDL Guidelines: <40 Undesirable 40-59 Borderline >59 Desirable Cholesterol in LDL [Mass/Vol] 126 mg/dL 0 - 130 mg/dL [place], [place] Comment on above: LDL Guidelines: <100 Desirable 100-129 Near to/above Desirable 130-159 Borderline >159 Undesirable Direct (measured) LDL and calculated LDL are not interchangeable tests. Cholesterol in VLDL [Mass/Vol] NOT REPORTED High 1 - 30 mg/dL [place], [place] Cholesterol.total/Ch olesterol in HDL [Mass ratio] 4.7 {ratio} <5 [place] Triglyceride [Mass/Vol] 157 mg/dL High <150 [place] Comment on above: Triglyceride Guidelines: <150 Desirable 150-199 Borderline 200-499 High >499 Very high Based on AHA Guidelines for fasting triglyceride, December 2011. Otheron 11-05-2018 Interpretation and review of laboratory results Abnormal [place], [place] Vital Signs Date Time Vital Sign Value Performing Clinician Facility 05-01-2023 10:[id number] Body height 180.3 cm Hunter Robins APRNAIS Work Phone: [facility] 05-01-2023 10:28-050 Body mass index (BMI) [Ratio] 38.49 kg/m2 Hunter Robins APRNAIS Work Phone: [facility] 05-01-2023 10:28-0500 Body temperature 97.9 [degF] Hunter Julienne SERVICES MANAGER-EMPLOYMENT MANAGER Work Phone: [facility] 05-01-2023 10:28-0500 Body weight 125.19 kg Hunter Robins APRN-EMPLOYMENT MANAGER [facility] 05-01-2023 10:28-0500 Diastolic blood pressure 72 mm[Hg] Hunter Robins SERVICES MANAGER-EMPLOYMENT MANAGER Work Phone: [facility] 05-01-2023 10:28-0500 Heart rate 68 /min Hunter Robins SERVICES MANAGER-EMPLOYMENT MANAGER Work Phone: [facility] 05-01-2023 10:28-0500 SaO2% (BldA) [Mass fraction] 95 % Hunter Robins APRN-EMPLOYMENT MANAGER Work Phone: [facility] 05-01-2023 10:28-0500 Systolic blood pressure 138 mm[Hg] Hunter Robins APRN-EMPLOYMENT MANAGER Work Phone: [facility] 11-26-2022 15:24-0400 Body height 187.96 cm Colten Barnard Addeparlong Work Phone: [facility] [employer] 250 DO Work Phone: 11-26-2022 15:24-0400 Body mass index (BMI) [Ratio] 35.31 kg/m2 Colten Barnard Addeparlong Work Phone: [facility] [employer] 250 DO Work Phone: 11-26-2022 15:24-0400 Body surface area Derived from formula 2.49 m2 Colten G Furlong Work Phone: [facility] [employer] 250 DO Work Phone: 11-26-2022 15:24-0400 Body weight 124.74 kg Colten G Furlong Work Phone: [facility] [employer] 250 DO Work Phone: 11-26-2022 15:24-0400 Diastolic blood pressure 72 mm[Hg] Colten G Furlong Work Phone: [facility] [employer] 250 DO Work Phone: 11-26-2022 15:24-0400 Heart rate 70 /min Colten G Furlong Work Phone: [facility] [employer] 250 DO Work Phone: 11-26-2022 15:24-0400 Systolic blood pressure 138 mm[Hg] Colten G Furlong Work Phone: [facility] [employer] 250 DO Work Phone: 10-19-2021 14:25-0400 Body height 187.96 cm Colten G Furlong Work Phone: [facility] [employer] 250 DO Work Phone: 10-19-2021 14:25-0400 Body mass index (BMI) [Ratio] 33.64 kg/m2 Colten G Furlong Work Phone: [facility] [employer] 250 DO Work Phone: 10-19-2021 14:25-0400 Body surface area Derived from formula 2.44 m2 Colten G Furlong Work Phone: [facility] [employer] 250 DO Work Phone: 10-19-2021 14:25-0400 Body weight 118.84 kg Colten G Furlong Work Phone: [facility] [employer] 250 DO Work Phone: 10-19-2021 14:25-0400 Diastolic blood pressure 68 mm[Hg] Colten G Furlong Work Phone: [facility] [employer] 250 DO Work Phone: 10-19-2021 14:25-0400 Heart rate 74 /min Colten G Furlong Work Phone: [facility] [employer] 250 DO Work Phone: 10-19-2021 14:25-0400 Systolic blood pressure 130 mm[Hg] Colten Amoslong Work Phone: [facility] [employer] 250 DO Work Phone: 06-06-2021 10:10-0400 Body height 188 cm Megan Interiano MD Work Phone: [facility] 06-06-2021 10:10-0400 Body weight 116.8 kg Megan Interiano MD Work Phone: [facility] 06-06-2021 10:10-0400 Diastolic blood pressure 71 mm[Hg] Megan Interiano MD Work Phone: [facility] 06-06-2021 10:10-0400 Heart rate 62 /min Megan Interiano MD Work Phone: [facility] 06-06-2021 10:10-0400 Respiratory rate 16 /min Megan Interiano MD Work Phone: [facility] 06-06-2021 10:10-0400 SaO2% (BldA) [Mass fraction] 98 % Megan Interiano MD Work Phone: [facility] 06-06-2021 10:10-0400 Systolic blood pressure 148 mm[Hg] Megan Interiano MD Work Phone: [facility] 05-26-2021 09:27-0400 Body height 187.96 cm Colten [facility]oslong [facility] Work Phone: 05-26-2021 09:27-0400 Body mass index (BMI) [Ratio] 33.41 kg/m2 Colten Barnard Furlong Work [facility]: [facility] DO Work Phone: 05-26-2021 09:27-0400 Body surface area Derived from formula 2.43 m2 Colten G Furlong Work Phone: [facility] [employer] 600 DO Work Phone: 05-26-2021 09:27-0400 Body weight 118.03 kg Colten G Furlong Work Phone: [facility] [employer] 600 DO Work Phone: 05-26-2021 09:27-0400 Diastolic blood pressure 66 mm[Hg] Colten G Furlong Work Phone: [facility] [employer] 600 DO Work Phone: 05-26-2021 09:27-0400 Heart rate 62 /min Colten G Furlong Work Phone: [facility] [employer] 600 DO Work Phone: 05-26-2021 09:27-0400 Systolic blood pressure 122 mm[Hg] Colten G Furlong Work Phone: [facility] [employer] 600 DO Work Phone: 12-27-2020 13:15-0400 Body height 187.96 cm Colten G Furlong Work Phone: [facility] [employer] 127 DO Work Phone: 12-27-2020 13:15-0400 Body mass index (BMI) [Ratio] 33.64 kg/m2 Colten G Furlong Work Phone: [facility] 127 DO Work Phone: 12-27-2020 13:15-0400 Body surface area Derived from formula 2.44 m2 Colten G Furlong Work Phone: [facility] 127 DO Work Phone: 12-27-2020 13:15-0400 Body weight 118.84 kg Colten G Furlong Work Phone: [facility] 127 DO Work Phone: 12-27-2020 13:15-0400 Diastolic blood pressure 74 mm[Hg] Colten G Furlong Work Phone: [facility] 127 DO Work Phone: 12-27-2020 13:15-0400 Heart rate 74 /min Colten G Furlong Work Phone: [facility] 127 DO Work Phone: 12-27-2020 13:15-0400 Systolic blood pressure 131 mm[Hg] Colten G Furlong Work Phone: [facility] 127 DO Work Phone: 12-23-2020 09:15-0400 0 1 Colten G Furlong Work Phone: [facility] [employer] [address] [place] Work Phone: Comment on above: [id number] 11-10-2019 13:25-0400 BP Diastolic 78 mm[Hg] [facility] [place] 11-10-2019 13:25-0400 BP Systolic 140 mm[Hg] [facility] [place] 11-10-2019 13:25-0400 Pulse (Heart Rate) 78 /min [facility] 11-10-2019 13:25-0400 Pulse Oximetry 97 % [facility] [place] 11-10-2019 13:25-0400 Respiratory Rate 16 /[facility] 11-10-2019 12:43-0400 Body Temperature 97.2 [degF] [facility] 11-10-2019 10:06-0400 BMI (Body Mass Index) 35.31 kg/m2 [facility] [place] 11-10-2019 10:06-0400 Body [facility] [place] 11-10-2019 10:06-0400 Height 188 cm Liu Jackson [facility] [place] 11-02-2019 11:08-0400 BMI (Body Mass Index) 35.31 kg/m2 [facility] 11-02-2019 11:08-0400 Body Temperature 98.01 [degF] [facility] 11-02-2019 11:08-0400 Body weight 124.74 kg [facility] [place] 11-02-2019 11:08-0400 BP Diastolic 94 mm[Hg] [facility] [place] 11-02-2019 11:08-0400 BP Systolic 147 mm[Hg] [address] , [place] 11-02-2019 11:08-0400 Height [address] , [place] 11-02-2019 11:08-0400 Pulse (Heart Rate) 83 /min [address] 11-02-2019 11:08-0400 Pulse Oximetry 99 % [address] , [place] 11-02-2019 11:08-0400 Respiratory Rate 18 /min [address] Encounters Encounter Date Encounter Type Care Provider Facility Start: 09-09-2023 End: 09-09-2023 ambulatory [facility] Start: 08-28-2023 End: 08-28-2023 ambulatory [facility] Ambulatory Start: 08-21-2023 End: 08-21-2023 Evaluation and management of inpatient DEBORAH Cheryl [facility] Start: 08-20-2023 End: 08-20-2023 ambulatory [facility] Start: 08-12-2023 End: 08-12-2023 ambulatory Christina Palm MD Facility:[facility] Start: 08-05-2023 End: 08-05-2023 ambulatory MARY CELESTIN [facility] Start: 07-26-2023 ambulatory [facility] Start: 07-11-2023 End: 07-11-2023 ambulatory DEBORAH G. JERONIMO [facility] Start: 07-04-2023 End: 07-04-2023 ambulatory DEBORAH Barnard JERONIMO [facility] Start: 06-17-2023 End: 06-17-2023 ambulatory Christina Palm MD Facility: [facility] Start: 05-01-2023 End: 05-02-2023 ambulatory [facility] Start: 05-01-2023 End: 05-01-2023 Office outpatient visit 15 minutes Hunter David [facility] SERVICES MANAGER-EMPLOYMENT MANAGER Work Phone: [facility] Comment on above: Essential hypertensi on (Primary Dx); Chronic hip pain, left; Mixed hyperlipidemia; Enlarged prostate; Skin lesion of left lower limb Start: 05-01-2023 End: 05-01-2023 ambulatory [facility] Start: 04-01-2023 Refill [facility] SERVICES MANAGER-EMPLOYMENT MANAGER Work Phone: [facility] Comment on above: Migraine, unspecifie d, not intractable, without status migrainosus Start: 11-26-2022 Patient encounter procedure Colten Parra Work Phone: [facility] 250 DO Work Phone: Start: 07-31-2022 End: 08-01-2022 ambulatory NARENDRANATH LAKSHMIPATHY . Facility:[facility]1 Start: 07-31-2022 End: 08-01-2022 ambulatory AD GOTTLIEB . Facility:[facility] Start: 06-14-2022 End: 06-15-2022 ambulatory NARENDRANATH LAKSHMIPATHY . Facility:[facility] Start: 05-08-2022 ambulatory [facility] Start: 05-03-2022 End: 05-03-2022 ambulatory HUNTER ROBINS Facility:[facility]1 Start: 03-15-2022 End: 03-16-[address] COMPA AWAD . Facility:[facility] Start: 02-15-2022 Encounter for preprocedural laboratory examination DR COMPA AWAD . [facility] Start: 02-13-2022 End: 02-13-[address] COMPA AWAD . Facility:[facility]1 Start: 02-09-2022 End: 02-10-[address] COMPA AWAD . Facility:[facility]1 Start: 02-09-2022 End: 02-10-2022 Encounter for preprocedural laboratory examination DR COMPA AWAD . Facility:[facility]1 Start: 01-16-2022 End: 01-17-[address] COMPA AWAD . Facility:[facility]1 Start: 01-09-2022 End: 01-09-[address] COMPA AWAD . Facility:[facility]1 Start: 01-08-2022 Rx Renewal Colten Amosfloresita ng Work Phone: [facility] 250 DO Work Phone: Start: 01-08-2022 Rx Renewal Colten Amosfloresita ng Work Phone: [facility] 250 DO Work Phone: Start: 12-28-2021 End: 12-29-2021 ambulatory HUNTER ROBINS Facility:H1 Start: 12-28-2021 End: 12-29-[address] COMPA AWAD . Facility:[facility]1 Start: 12-12-2021 End: 12-12-[address] COMPA AWAD . Facility: Start: 11-29-2021 Rx Renewal Colten Raymond Elisa ng Work Phone: [facility] 250 DO Work Phone: Start: 10-26-2021 End: 10-27-[address] COMPA AWAD . Facility:[facility]1 Start: 10-19-2021 Office outpatient vi sit 25 minutes Colten Raymond Amosfloresitahenry Work Phone: [facility] 250 DO Work Phone: Start: 08-23-2021 Message Colten Pérez ng Work Phone: [facility] 250 DO Work Phone: Start: 07-04-2021 Telephone encounter Megan garcia MD Work Phone: [facility] Comment on above: Schedule Surgery Start: 06-06-2021 End: 06-06-2021 Patient encounter procedure Megan Interiano MD Work Phone: [facility] Comment on above: Cervical spondylosis with myelopathy (Primary Dx); Loss of balance; Spinal stenosis of cervical region Start: 05-26-2021 Office outpatient vi sit 25 minutes Colten Amoslong Work Phone: [facility] [employer] 600 DO Work Phone: Start: 01-03-2021 Chart Update Colten Amoslo ng Work Phone: [facility] 127 DO Work Phone: Start: 12-27-2020 FUV, Provider: Kalie Lebron, Status: Pen, Time: 1:00 PM Colten Amoslong Work Phone: [facility] [address] [place] Work Phone: Start: 12-27-2020 Office outpatient vi sit 25 minutes Colten Amoslong Work Phone: [facility] 127 DO Work Phone: Start: 12-23-2020 Patient encounter procedure Colten Amoslong Work Phone: [facility] [address] [place] Work Phone: Start: 05-04-2020 End: 05-05-2020 Patient encounter procedure SHIVAPRAD Paulina [facility] Start: 05-04-2020 End: 05-04-2020 Subsequent hospital visit by physician Kash BERTRAND [facility] Start: 05-03-2020 End: 05-04-2020 Patient encounter procedure SHIVAPRASAD Paulina [facility] Start: 05-03-2020 End: 05-03-2020 Subsequent hospital visit by physician Kash GARCÍA [place] [facility] Comment on above: Chest discomfort; Essential hypertension Start: 05-03-2020 End: 05-06-2020 Patient encounter procedure FLACO CARTER [facility] Start: 05-03-2020 End: 05-05-2020 Subsequent hospital visit by physician Alexa Shukla Xr Rm 1 [facility]iology Comment on above: Chest discomfort Start: 11-10-2019 End: 11-10-2019 Patient encounter procedure LIU JACKSON [facility] Start: 11-10-2019 End: 11-10-2019 Subsequent hospital visit by physician Liu Jackson Work Phone: [facility] Comment on above: Acute medial meniscu s tear of left knee, initial encounter (Primary Dx) Start: 11-06-2019 End: 11-11-2019 Patient encounter procedure ANAYA HORTON [facility] Start: 11-06-2019 End: 11-10-2019 Subsequent hospital visit by physician Alexa Covid19 Pat Screening Schedule [facility] Pre-Admit Testing Start: 11-02-2019 End: 11-06-2019 Patient encounter procedure EDINVAPRASAD Paulina [facility] Start: 11-02-2019 End: 11-06-2019 Subsequent hospital visit by physician Mary Pat Rm 2 [facility] Pre-Admit Testing Start: 10-27-2019 End: 10-30-2019 Patient encounter procedure SHIVAPRASAD Paulina [facility] Start: 10-27-2019 End: 10-29-2019 Subsequent hospital visit by physician Alexa Mri Rm [address] [facility] MRI Comment on above: Effusion of left kne e; Injury of left knee, subsequent encounter Start: 09-29-2019 End: 10-02-2019 Patient encounter procedure SHIVAPRASAD Paulina [facility] Start: 09-29-2019 End: 10-01-2019 Subsequent hospital visit by physician Alexa Xr Room [address] [facility] Radiology Comment on above: Acute pain of left k nee Start: 09-29-2019 End: 09-29-2019 Patient encounter procedure KASH GRIER [facility] Start: 09-28-2019 End: 09-28-2019 Subsequent hospital visit by physician Margarita GARCÍA [place] [facility] Comment on above: Gout of foot, unspec ified cause, unspecified chronicity, unspecified laterality Start: 12-09-2018 End: 12-09-2018 Subsequent hospital visit by physician Margarita [place]ARC[place]A [place] [facility] Comment on above: Gouty arthritis of r ight foot Start: 11-05-2018 End: 11-05-2018 Subsequent hospital visit by physician Margarita GARCÍA [place] [facility] Comment on above: Essential hypertensi on; Prostate cancer screening Procedures Date Procedure Procedure Detail Performing Clinician Start: 09-09-2023 Follow-up visit Follow-up DEBORAH Raymond JERONIMO Start: 05-01-2023 Adult depression scr eening assessment Hunter Robins SERVICES MANAGER-EMPLOYMENT MANAGER Work Phone: Start: 12-14-2022 Adult depression scr eening assessment Hunter Robins SERVICES MANAGER-EMPLOYMENT MANAGER Work Phone: Start: 06-04-2021 Adult depression scr [...] EDIN VAPRASAD GURJIT Start: 11-06-2019 COVID-19 AMBULATORY Tramaine timothy Horton Work Phone: Start: 11-06-2019 COVID-19 [...] Comprehensive metabo lic panel Harlansathish Gallardo Gurjit [employer] Phone: Start: 11-05-2018 Lipid panel Wipitda d Paulina Gurjit [employer] Phone: Start: 11-05-2018 PSA screening Howardtimothy Gallardo Gurj[employer] Phone: Decompression of med trudy nerve Colten [...] colon Colon Cancer Screening 3 Year Cologuard [facility] Start: 05-03-2025 Lipid panel Lipid screen Jolynn [facility] Work Phone: Start: 04-28-2025 Hepatitis C screening Hepatitis C sc danuta [facility] Work Phone: Comment on above: Postponed from 07/08 (Patient Refused) Start: 04-28-2025 HIV screening HIV screen Jol[facility] Work Phone: Comment on above: Postponed from 07/08 (Patient Refused) Start: 05-01-2024 Adult BMI Screening Adult BMI Screen [facility] Start: 05-01-2024 Depression Screening Depression Scre [facility] Start: 05-01-2024 Tobacco Screening Tobacco Screening [facility] Start: 12-23-2023 Tobacco Counseling [facility] Comment on above: Postponed from 07/08 (Not Indicated) Start: 12-18-2023 Adult BMI Screening Adult BMI Screen [facility] Start: 12-18-2023 Tobacco Screening Tobacco Screening [facility] Start: 12-15-2023 Depression Screening Depression Scre [facility] Start: 11-06-2023 Lipid panel Lipid screen J[facility] [place] Start: 11-06-2023 Lipid screen Lipid screen [facility] Start: 06-09-2023 Administration of varicella zoster vaccine Zoster (Shingles) Vaccine (1 of 2) [facility] Comment on above: Postponed from 07/08 (Patient Refused) Start: 06-09-2023 DTaP,Tdap and Td Vaccines (1 - Tdap) DTaP,Tdap and Td Vaccines (1 - Tdap) [facility] Comment on above: Postponed from 07/08 (Patient Refused) Start: 06-02-2023 Influenza vaccination Influenza Vacc ine [facility] Comment on above: Postponed from 11/02 (Patient Refused) Start: 05-01-2023 End: 05-01-2023 Patient encounter procedure 05/01/2023 10:30 AM EST Office Visit [facility] [address] [place] [address] Hunter Robins, SERVICES MANAGER-EMPLOYMENT MANAGER [address] [place] [address] [facility] Start: 07-13-2022 FUV, Provider: Leonid Figueredo, Status: Pen, Time: 9:00 AM FUV, Provider: Leonid Figueredo, Status: Pen, Time: 9:00 AM [facility] 250 DO Work Phone: Start: 06-04-2022 Adult depression screening assessment DEPRESSION SCREENING [facility] Start: 11-02-2021 Influenza vaccination INFLUENZ A (Season Ended) [facility] Start: 10-27-2021 FUV, Provider: Leonid Figueredo, Status: Pen, Time: 2:50 PM FUV, Provider: Leonid Figueredo, Status: Pen, Time: 2:50 PM [facility] 600 DO Work Phone: Start: 05-03-2021 Creatinine measurement Creatinine mo nitoring [employer] Phone: Start: 05-03-2021 Potassium monitoring Potassium monit oring [employer] Phone: Start: 04-28-2021 Influenza vaccination Flu vaccine (# 1) [employer] Phone: Comment on above: Postponed from 11/02 (Patient Refused) Start: 04-28-2021 Pneumococcal 0-64 ye ars Vaccine (1 of 1 - PPSV23) Pneumococcal 0-64 years Vaccine (1 of 1 - PPSV23) [employer] Phone: Comment on above: Postponed from 07/08 (Patient Refused) Start: 03-30-2021 FUV, Provider: Rachel Stacy, Status: Pen, Time: 4:30 PM FUV, Provider: Rachel Stacy, Status: Pen, Time: 4:30 PM [facility] 127 DO Work Phone: Start: 12-27-2020 FUV, Provider: Kalie Lebron, Status: Pen, Time: 1:00 PM FUV, Provider: Kalie Lebron, Status: Pen, Time: 1:00 PM [facility] [address] [place] Work Phone: Start: 11-01-2020 Creatinine measurement Creatinine mo [place]itoring [place], [place] Start: 11-01-2020 Potassium monitoring Potassium monit [place]ing [place] Start: 10-05-2020 Shingles Vaccine (1 of 2) Shingles Vaccine (1 of 2) [place] Comment on above: Postponed from 07/08 (Patient Refused) Start: 2020 PROSTATE CANCER SCREENING DISCUSSION PROSTATE CANCER SCREENING DISCUSSION [facility] Start: 05-26-2020 End: 05-26-2020 Office Visit 05/26/2020 Office Visit Primary Care Margarita Maxwell MD [address] [place] [address] [phone] [facility] Start: 12-16-2019 End: 12-16-2019 Office Visit 12/16/2019 Office Visit Family Medicine Kash Grier MD [address] [place] [address] [phone] Kash Grier MD [facility] Start: 12-08-2019 End: 12-08-2019 Office Visit 12/08/2019 Office Visit Primary Care Patria Quiñones CPNP [address] [place] [address] [phone] [facility] Start: 11-23-2019 End: 11-23-2019 Office Visit 11/23/2019 Office Visit Orthopedic Surgery Liu Jackson MD [address] [address] [facility] Start: 11-10-2019 End: 11-10-2019 Hospital Encounter [facility] Comment on above: KNEE ARTHROSCOPY WIT H PARTIAL MEDICAL MENISECTOMY Start: 11-06-2019 End: 11-06-2019 Appointment 11/06/2019 Appointment Pre-Admission Testing [facility] Pre-Admit Testing Start: 11-06-2019 Creatinine measurement Creatinine mo nitoring [place] Start: 11-06-2019 Creatinine monitoring Creatinine mon [place]oring [place] Start: 11-06-2019 Potassium monitoring Potassium monit [place]ing [place] Start: 11-03-2019 Influenza vaccination Flu vaccine (# 1) [place] Start: 11-02-2019 End: 11-02-2019 Appointment 11/02/2019 Appointment Pre-Admission Testing [facility] Pre-Admit Testing Start: 10-31-2019 DTaP/Tdap/Td vaccine (1 - Tdap) DTaP/Tdap/Td vaccine (1 - Tdap) [place] Comment on above: Postponed from 07/08 (Patient Refused) Start: 10-31-2019 HIV screen HIV screen [place], [place] Comment on above: Postponed from 07/08 (Patient Refused) Start: 10-31-2019 HIV screening [facility] [place] Comment on above: Postponed from 07/08 (Patient Refused) Start: 10-31-2019 Pneumococcal 0-64 ye ars Vaccine (1 of 1 - PPSV23) Pneumococcal 0-64 years Vaccine (1 of 1 - PPSV23) [place] Comment on above: Postponed from 07/08 (Patient Refused) Start: 10-06-2019 End: 10-06-2019 Office Visit 10/06/2019 Office Visit Primary Care Patria Quiñones CPNP [address] [place] [address] [phone] [facility] Start: 09-29-2019 End: 09-29-2019 Office Visit 09/29/2019 Office Visit Family Medicine Patria Quiñones CPNP [address] [place] [address] [phone] Kash Grier [facility] Start: 05-02-2019 Shingles Vaccine (1 of 2) Shingles Vaccine (1 of 2) [place] Comment on above: Postponed from 07/08 (Patient Refused) Start: 01-15-2019 End: 01-15-2019 Office Visit 01/15/2019 Office Visit Primary Care Margarita Maxwell MD [address] [place] [address] [phone] [facility] Start: 12-15-2018 End: 12-15-2018 Office Visit 12/15/2018 Office Visit Family Medicine Kash Grier MD [address] [place] [address] [phone] Kash Grier [facility] Start: 11-02-2018 Influenza vaccination Flu vaccine (# 1) [place], [place] Start: 07-09-2015 Colon cancer screen colonoscopy Colon cancer screen colonoscopy [place], [place] Start: 07-09-2015 Screening for malign ant neoplasm of colon Colon cancer screen colon[place], [place] Start: 07-09-2015 Shingles Vaccine (1 of 2) Shingles Vaccine (1 of 2) [place] Start: 07-09-2015 SHINGRIX VACCINE (1 of 2) SHINGRIX VACCINE (1 of 2) [facility] Start: 2010 COLOGUARD (FIT-DNA) COLOGUARD (FIT-D NA) [facility] Start: 2010 Colonoscopy COLONOSCOPY [facility] Start: 2010 COLORECTAL CANCER SCREENING COLORECTAL CANCER SCREENING [facility] Start: [address] COLONOGRAPHY [facility] Start: 2010 DIABETES SCREEN DIABETES SCREEN [facility] Start: 2010 FECAL OCCULT BLOOD FECAL OCCULT BLOO D [facility] Start: 2010 SIGMOIDOSCOPY [facility] Start: 2005 Diabetes screen Diabetes screen [place], [place] Start: 2005 Lipid screen Lipid screen [place], [place] Start: 2000 LIPID SCREEN LIPID SCREEN [facility] Start: 1984 DTaP/Tdap/Td vaccine (1 - Tdap) DTaP/Tdap/Td vaccine (1 - Tdap) [place] Start: 1984 Urine microalbumin profile DTAP,TDAP,TD (1 - Tdap) [facility] Start: 07-09-1983 Adult BMI Follow Up Plan Adult BMI Follow Up Plan [facility] Start: 07-09-1983 HEPATITIS C SCREENING HEPATITIS C SC REENING [facility] Start: 07-09-1983 HIV SCREENING HIV SCREENING [facility] Start: 1980 HIV screening [facility] [place] [place] Start: 07-09-1971 Pneumococcal 0-64 ye ars Vaccine (1 of 1 - PPSV23) Pneumococcal 0-64 years Vaccine (1 of 1 - PPSV23) [place], [place] Start: 1970 COVID-19 VACCINE (1) COVID-19 VACCIN E (1) [facility] Start: 1965 Creatinine monitoring Creatinine mon [place]oring [place], [place] Start: 1965 Potassium monitoring Potassium monit [place]ing [place] End: 11-06-2019 COVID-19 COVID-19 Lab Routine One Time for 1 Occurrences starting 11/06/2019 until 11/06/2019 [place] Comment on above: One Time for 1 Occur rences starting 11/06/2019 until 11/06/2019 End: 07-06-2022 Ct cervical spine w/o contrast material CT CERVICAL SPINE WO IVCON Radiology Routine Spinal stenosis of cervical region 1 Occurrences starting 06/06/2021 until 07/06/2022 [facility] Work Phone: Comment on above: 1 Occurrences starti ng 06/06/2021 until 07/06/2022 Oxygen therapy [[facility] Initiate Oxygen Therapy Protocol Respiratory Care Routine Daily until discontinued starting 11/10/2019 [place] Comment on above: Daily until disconti nued starting 11/10/2019 Phase I & II - meter ed glucose Phase I & II - metered glucose Point of Care Testing Routine As Needed until discontinued starting 11/10/2019 [place] Comment on above: As Needed until disc ontinued starting 11/10/2019 End: 07-06-2022 Radex spine cervical 4 or 5 views XR CERV OTHER 4V AP/LAT/FLX/EXT Radiology Routine Cervical spondylosis with myelopathy 1 Occurrences starting 06/06/2021 until 07/06/2022 [facility] Work Phone: Comment on above: 1 Occurrences starti ng 06/06/2021 until 07/06/2022 Immunizations Immunization Date Immunization Notes Care Provider Clem ortega 11-04-2019 influenza, seasonal, injectable Colten G Furlong Work Phone: [facility] [address] [place] Work Phone: 11-03-2019 influenza, seasonal, injectable Hunter Julienne SERVICES MANAGER-EMPLOYMENT MANAGER Work Phone: [facility] 11-03-2019 influenza virus vaccine, unspecified formulation Hunter Julienne SERVICES MANAGER-EMPLOYMENT MANAGER Work Phone: [facility] 01-21-2019 influenza virus vaccine, unspecified formulation [address] 01-21-2019 influenza, injectabl e, quadrivalent, contains preservative [place] 01-02-2019 influenza, injectabl e, quadrivalent, contains preservative Colten G Furlong [facility] Work Phone: 12-02-2016 influenza, injectabl e, quadrivalent, preservative free [address] Payers Date Payer Category Payer Unknown [employer] BLUE ACCE SS PPO [id number] 2021-Present [phone] [address] [place] [address] PPO [id number] 2018 Unknown [place] P PO xxxxxxxxxxxx 2018-Present [address] [place] [address] xxxxxxxxxxxx [id number] .[id number] 2018 Unknown [place] P PO [id number] 2018-Present [address] [place] [address] [id number] [id number].3 .[id number] 2015 Unknown [id number] 1.2.840.132929.1.13.239.2.7.3 .112222.315 2015 Unknown 1965 Unknown [id number] 2.16.840.1.467776.3.579.2.175 1965 Unknown [id number] 2.16.840.1.609490.3.579.2.175 1965 Unknown [id number] 2.16.840.1.062632.3.579.2.175 1965 Unknown [id number] 2.16.840.1.395257.3.579.2.176 1965 Unknown [id number] 2.16.840.1.694960.3.579.2.176 1965 Unknown [id number] 2.16.840.1.198663.3.579.2.176 1965 Unknown [id number] 2.16.840.1.595540.3.579.2.176 1965 Unknown [id number] 2.16.840.1.360289.3.579.2.176 1965 Unknown [id number] 2.16.840.1.875264.3.579.2.176 1965 Unknown [id number] 2.16.840.1.573937.3.579.2.176 1965 Unknown [id number] 2.16.840.1.035564.3.579.2.176 1965 Unknown [id number] 2.16.840.1.440374.3.579.2.176 1965 Unknown [id number] 2.16.840.1.574417.3.579.2.593 1965 Unknown [id number] 2.16.840.1.100774.3.579.2.593 1965 Unknown [id number] 2.16.840.1.981400.3.579.2.593 1965 Unknown [id number] 2.16.840.1.626737.3.579.2.593 1965 Unknown [id number] 2.16.840.1.992019.3.579.2.593 1965 Unknown [id number] 2.16.840.1.832158.3.579.2.593 1965 Unknown [id number] 2.16.840.1.683483.3.579.2.593 1965 Unknown [id number] 2.16.840.1.949091.3.579.2.593 1965 Unknown [id number] 2.16.840.1.022114.3.579.2.593 1965 Unknown [id number] 2.16.840.1.017217.3.579.2.593 1965 Unknown [id number] 2.16.840.1.893023.3.579.2.593 1965 Unknown [id number] 2.16.840.1.178114.3.579.2.593 1965 Unknown [id number] 2.16.840.1.321759.3.579.2.593 1965 Unknown [id number] 2.16.840.1.268709.3.579.2.128 6 1965 Unknown [id number] 2.16.840.1.861731.3.579.2.128 6 1965 Unknown [id number] 2.16.840.1.414315.3.579.2.128 6 1965 Unknown [id number] 2.16.840.1.154204.3.579.2.128 6 1965 Unknown [id number] 2.16.840.1.231979.3.579.2.128 6 1965 Unknown [id number] 2.16.840.1.761309.3.579.2.128 6 1965 Unknown [id number] 2.16.840.1.012128.3.579.2.128 6 1965 Unknown [id number] 2.16.840.1.547424.3.579.2.196 1965 Unknown [id number] 2.16.840.1.898772.3.579.2.196 1965 Unknown [id number] 2.16.840.1.827210.3.579.2.124 4 1965 Unknown [id number] 2.16.840.1.218411.3.579.2.128 6 1965 Unknown [id number] 2.16.840.1.537758.3.579.2.128 6 1965 Unknown [id number] 2.16.840.1.523085.3.579.2.128 6 1959 Unknown [id number] 1959 Unknown [id number] Social History Date Type Detail Facility Start: 03-04-1978 End: 12-07-2022 Tobacco smoking status ALIS Current every day smoker [facility] Start: 12-08-2018 End: 04-14-2020 Cigarettes smoked current (pack per day) - Reported [facility] Comment on above: 1 ppd; Start: 12-08-2018 End: 04-14-2020 Alcohol intake Yes [facility] Start: 1965 Sex Assigned At Not on file [place], [place] Start: 09-16-2019 End: 12-07-2022 Tobacco use and exposure [facility] Start: 09-16-2019 End: 05-01-2023 Alcohol intake [facility] to SARS-CoV -2 (event) Not sure [facility] Start: 11-02-2019 Alcohol Comment very rare [facility] Start: 06-06-2021 Alcohol intake Ex-drinker (finding) [facility] Start: 1965 Sex Assigned At Male C [facility] Start: 03-04-1978 History of tobacco use Cigarette Smo ker [facility] Adolescent depressio n screening assessment 5 [facility] Start: 03-23-2022 Alcohol Comment rarely [facility] Goals Date Patient Goal Desired Activity /State Personal health goal Comment on above: Formatting of this n ote might be different from the original. Evaluation of progress towards goal: safe transition to home with support of pt's and resumption with outpatient PT. Clinical Notes 11-18-2020 to 05-01-2023 [facility] 05/01/2023 10:30 AM ESTTelephone Encounter - Hunter Robins, [facility] - 04/01/2023 12:18 AM ESTTelephone Encounter - Hunter Robins [facility] - 04/01/2023 12:18 AM EST Note Date & Type Note Facility 05-01-2023 History of Present illness Narrative Images from the original note were not included. [address] [place] [id number] Patient: Ashok Doss Date of : 1965 [...] was normal. Patient will like to see [facility]. Patient also has a new skin [...] History: Diagnosis Date DVT (deep venous thrombosis) ([facility]) x2 Headache Hyperlipidemia Myocardial infarction ([facility]) Past Surgical History: Procedure Laterality Date ANKLE SURGERY Left CARDIAC CATHETERIZATION CARPAL TUNNEL RELEASE Right COLONOSCOPY N/A 12/07/2022 Performed by Nasir Richey DO at [facility] F[facility]CTURE SURGERY Right knee, tibia KNEE [...] BMI 38.49 kg/m Physical Exam Vitals reviewed. Teacher Assistant present: here w/ spouse. Constitutional: Appearance: Normal [...] KEEN APRN-CNP 05/02/232050 [facility] Miscellaneous Notes Due for either his well visit or CV - please set up documented in this encounter [facility] 01-29-2024 Telephone encounter Note Due for either his well visit or CV - please set up [facility] 07-31-2022 Note CONSULTATION CONSULTATION DATE: 07/31/2022 [...] mg pills, two pills daily p.r.n. and Hedrick 5 mg b.i.d. p.r.n. As part of providing excellent, safe, comprehensive care, the following was completed at our patient's visit: 1. A medication reconciliation and review to ensure accurate knowledge of current/active medications, including asking our patients to inform us about any arco-isx-erxtttp medications or herbal remedies/nutritional supplements/alternative remedies. 2. [...] options with their primary care provider. [facility] 06-14-2022 Note CONSULTATION CONSULTATION DATE: 06/14/2022 TO: [...] sooner if needed. We did refill his Hedrick. He takes 5 mg pills, one pill b.i.d. He did report this medicine does improve his quality of life, level of function and sleep pattern. As part of providing excellent, safe, comprehensive care, the following was completed at our patient's visit: 1. A medication reconciliation and review to ensure accurate knowledge of current/active medications, including asking our patients to inform us about any xzwv-ilq-oqdongu medications or herbal remedies/nutritional supplements/alternative remedies. 2. [...] options with their primary care provider. [facility] 05-08-2022 Note Subjective Patient ID: Ashok Doss is a 56 y.o. male who presents as a new patient referral from [facility] in [place] for acute deep right calf/soleal muscle vein [...] hour(s)). No follow-ups on file. [facility] 03-15-2022 Note CONSULTATION CONSULTATION DATE: 03/15/2022 HISTORY [...] with his leg elevated. Current medications include Hedrick 5/325 b.i.d. and tizanidine p.r.n. Patient's REVIEW [...] postoperatively Orthopedics plans on keeping him on Hedrick 5/325 b.i.d. I do worry that his post-op pain will not be adequately relieved with Hedrick, and I did encourage the patient to talk with his Orthopedics' office to discuss this. We will see the patient in the office in three months' time unless otherwise indicated. [facility] 01-16-2022 Note CONSULTATION CONSULTATION DATE: 01/16/2022 CHIEF [...] recently came off. The patient currently takes Hedrick 5/325 daily, tizanidine 4 mg q.h.s. Activities aggravate the patient's pain. The patient reports standing too long, walking too long, ADLs aggravate the pain. Heat mitigates the patient's pain. Pushing, pulling, lifting aggravate the pain. Laying down mitigates the pain. The patient takes Hedrick 5/325 one tablet p.o. daily. He finds [...] left foot. PLAN: We will increase the Hedrick to 5/325 b.i.d. The patient will also start aquatic program. We will schedule the patient for a rhizotomy, radiofrequency ablation of the dorsal median rami at the level of L2, 3 and L4, 5; given that the patient has had successful medial branch blocks on two separate occasions. CC: Elisabeth Galvan NP [facility] 12-28-2021 Note CONSULTATION CONSULTATION DATE: 12/28/2021 This [...] increased stiffness in his back. Medications include Hedrick 5/325 q. day p.r.n. and Tizanidine 4 [...] followed up in the clinic thereafter. [facility] 10-26-2021 Note CONSULTATION CONSULTATION DATE: 10/26/2021 HISTORY [...] 18, which is one year since his DE. He has not been able to gain approval to be off the Brilinta for interventional procedures. He is interested, however, in moving forward with procedures once the Brilinta is discontinued. He has seen Neurosurgery at the [facility] and they would like to do [...] discontinue Tylenol #3 and start him on Hedrick 5/325 daily p.r.n. Vitamin importance and nutrition were discussed as well. Patient agrees to move forward with this plan and be followed up in the clinic post his #1 procedure. [facility] 07-04-2021 Miscellaneous Notes Neuro SPINE CARE COORDINATION QUICK NOTE Called patient to discuss scheduling for surgery. States he is not ready to schedule but will call back when he is. Also advised it best for recovery to work on quitting smoking. documented in this encounter [facility] 06-06-2021 Note HNO ID: [id number] Author: Megan Interiano MD Service: ? 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 [facility] 06-06-2021 History of Present illness Narrative [...] well. 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 I examined the patient and evaluated [...] well. 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 Staff note: 1. PCSM, plan for C4-T2 fusion and decompression, RBAEO reviewed in comprehensive detail, all questions answered to stated satisfaction Megan Interiano MD documented in this encounter [facility] 04-24-2021 Note HNO ID: [id number] Author: Ashia Bermeo APRN.EMPLOYMENT MANAGER Service: ? Author Type: Nurse Practitioner Type: [...] DISTRIBUTION: Not applicable AMBULATORY STATUS: Independent [facility] ANTIPLATELET OR ANTICOAGULATION STATUS: Yes Previous DE PREVIOUS SPINAL SURGERY: SURGERY #1: L5-S1 Laminectomy [...] vision or hearing. CARDIOVASCULAR: Hypertension and previous DE RESPIRATORY: Denies SOB, sputum production, and hemoptysis. [...] Levels: (more content not included)... [facility] 04-14-2021 Note HNO ID: [id number] Author: Sonja Moser PA-C Service: ? Author Type: Physician Caddy Packer Type: Progress Notes Filed: 04/14/2021 3:29 PM Note Text: Per Triage: Ashok Doss is a 55 year old male that requests evaluation of spine. Per review, they have symptoms of back pain, neck pain, weakness, tingling in legs. Prior spine surgery: Several years ago (20) at a [facility] CMT: Muscle relaxer Studies (Reports unless [...] for review. Sonja Moser PA-C [facility] 04-12-2021 Note HNO ID: [id number] Author: Macario Garcia Service: ? Author Type: ? Type: Progress Notes Filed: 04/14/2021 3:29 PM Note Text: Patient name: Ashok Doss Are you being referred by a [facility] Spine Health Provider or Pain Management Provider at [facility]? No If answer is YES please [...] where the MRI/CT/myelogram was completed: [facility] Address: [address] [place] [address] MRI/CT/myelogram viewable in Epic: No If not, please provide [phone] to fax in imaging reports for review. [...] the time of the call Additional Comments [phone] [facility] 11-20-2020 Note Send Summary: Discharge Summary Providers: Provider RoleProvider Name PrimaryRequired, No Pcp ConsultingJosé Miguel Posey ConsultingRachel Stacy ReferringRequired, No Pcp AttendingRachel Stacy Note Recipients: Rachel Stacy MD - [id number] [preferred] Required, No PcpMD Discharge Summary: Admission Date: .18-Nov-2020 18:57:00 Discharge Date: 20-Nov-2020 Attending Physician at Discharge: Rachel Stacy Admission Reason: Inferior Wall STEMI(1) Final Discharge Diagnoses: Acute inferior ST elevation DE. Procedures: Left heart Catheterization, selective coronary angiography, left ventriculography, LV ao pullback, PCI and drug-eluting stent to the distal mid RCA, selective right common femoral angiography, Angio-Seal deployment. Condition at Discharge: stable Disposition at Discharge: Home Vital Signs: T PRBPSpO2 [id number]/7494% Date/Time11/20 11: 11: 20:: 11:20 Range(36.8C - 37C ) (70 - 87 ) (17 - 28 ) (132 - 165 )/ (66 - 82 ) (94% - 99% ) Highest temp of 37 C was recorded at 11/20 7:45 Date: Weight/Scale Type:Height: 18-Nov-2020 23:08948.7 kg 188 cm Physical Exam: Patient is [...] hour away, and will be seeking a needleworker closer to home, but will be seen at [facility] with me within 1 week to go [...] laboratory results: Troponin I, Serum Trending View [id number] 21:03:00 19-Nov-2020 13:00:00 19-Nov-2020 05:23:00 19-Nov-2020 00:54:00 [...] Authorization (EUA) and has been verified by [facility]. This test is only authorized for the duration (more content not included)... [facility] 11-18-2020 Note History of Present I llness: HPI: SAHOK DOSS is a 55 year old Male [...] Brilinta IV heparin, and was transferred to [facility] emergency department. Code koby called was alerted. [...] 1 mg IV, and Bairon-Synephrine, with prompt protestant of heart rate and blood pressure. At [...] fluids Thank you, Sincerely, Rachel Stacy MD [facility] Comorbidities: Comorbidites: Comorbid Conditionshypertension Allergies: Allergy Status [...] Last Updated: 18-Nov-2020 20:21 by Rachel Stacy) [facility] 11-18-2020 Chief complaint Narrative - Reported ASHOK DOSS is being seen for a cardiovascular evaluation . testing results.ASHOK DOSS is a 55 year old male that presents to the [facility] with his for follow-up on testing. He follows with his primary needleworker Dr. tSacy and was added to my schedule today. He has a recent history of an DE with cardiac catheterization 11/18/2020 with PCI and [...] see if cardiac rehabilitation is possible at [facility] that is closest to his home. He [...] refill his sublingual nitro for him today.Testing cwoyqipg47/22/2021 echocardiogram; LVEF 60 to 65%. Normal RV size and function. Trivial MR, trivial TR, RVSP 32 mmHg.12/23/2020 cardiac stress test; no exercise-induced chest discomfort or ST changes at 76% of MPHR.Assessment:1. CAD; with acute inferior ST elevation DE requiring cardiac catheterization 11/18/2020 with PCI and [...] software was used to prepare this document. [facility] 127 DO Work Phone: Evaluation note Diagnosis Cervical spondylosis with myelopathy- Primary Loss of balance Other symptoms involving nervous and musculoskeletal systems Spinal stenosis of cervical region Spinal stenosis in cervical region [facility] Diagnosis Migraine, unspecified, not intractable, without status migrainosus documented in this encounter [facility] Diagnosis Essential hypertension- Primary Unspecified essential hypertension Chronic hip pain, left Mixed hyperlipidemia Enlarged prostate Hypertrophy of prostate without urinary obstruction and other lower urinary tract symptoms (LUTS) Skin lesion of left lower limb Unspecified disorder of skin and subcutaneous tissue documented [facility] this [facility] N[facility]* Patient is seen by me for the first time. 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 He was taken to [place] where he had a coronary intervention and [...] the merits of lifestyle modification and exercise. -[facility] 600 DO Work Phone: History of [...] in order to furtherimprove his hypertension and lipids.-[facility] 250 DO Work Phone: InstructionsNot on filedocumented in this encounter [facility]Not on filedocumented in this encounter [facility]ructionsNot on filedocumented in this encounter [facility] SystemReason for referral (narrative)* Consultation (Routine) - Pending Review Specialty Diagnoses / Procedures Referred By Contac t Referred To Contact Dermatology Diagnoses Skin lesion of left lower limb Hunter Robins SERVICES MANAGER-EMPLOYMENT MANAGER [address] [place] [address] Silviano Burroughs, DO [address] [place] [address] Referral ID Status Reason Start Date Expiration Date Visits Requested Visits Authorized [id number] Pending Review Specialty Services Required 05/01/2023 04/30/2024 1 1 * Consultation (Routine) - Pending Review Specialty Diagnoses / Procedures Referred By Contac t Referred To Contact Urology Diagnoses Enlarged prostate Hunter Robins SERVICES MANAGER-EMPLOYMENT MANAGER [address] [place] [address] Deborah Jeronimo MD [address] [place] [address] [place] [address] Referral ID Status Reason Start Date Expiration Date Visits Requested Visits Authorized [id number] Pending Review Specialty Services Required 05/01/2023 04/30/2024 1 1 * Misc (Routine) - Pending Review Specialty Diagnoses / Procedures Referred By Contac t Referred To Contact Diagnoses Chronic hip pain, left Procedures Disability/Handicap Hunter Hunter SERVICES MANAGER-EMPLOYMENT MANAGER [address] [place] [address] Referral ID Status Reason Start Date Expiration Date V isits Requested Visits Authorized [id number] Pending Review 05/01/2023 04/30/2024 1 1 [facility] Assessments Diagnosis Gouty arthritis of [...] FoundDocuments on File Type Date Recorded Patient Manager Engine Expl anation Advance Directives and Living Will Power of Knitter Wire Mesh Documents on File Type Date Recorded Patient Manager Engine Expl anation ACP-Advance Directive ACP-Power of Knitter Wire Mesh Documents on File Type Date Recorded Patient Manager Engine Expl anation ACP-Advance Directive ACP-Power of Knitter Wire Mesh Latest Code Status on File Code Status [...] WO CONTRAST Patria Quiñones, CPNP [address] [place] [address] Specialty Diagnoses / Procedures Referred By Contac t Referred To Contact CT IMAGING Diagnoses Spinal stenosis of cervical region Procedures CT CERVICAL SPINE WO IVCON CT CERVICAL SPINE W/O CONTRAST MATERIAL Megan Interiano MD [address] [place] [address] Ct Imaging Referral ID Status Reason Start Date Expiration Date Visits Requested Visits Authorized [id number] Authorized Auto-Generat ed Referral 06/06/2021 07/06/2022 1 1 Specialty Diagnoses / Procedures Referred By Contac t Referred To Contact XR IMAGING Diagnoses Cervical spondylosis with myelopathy Procedures XR CERV OTHER 4V AP/LAT/FLX/EXT RADEX SPINE CERVICAL 4 OR 5 VIEWS Vivien Lawton PA-C [address] [place] [address] Xr Imaging Referral ID Status Reason Start Date Expiration Date Visits Requested Visits Authorized [id number] Authorized Auto-Generat ed Referral 06/06/2021 07/06/2022 1 [...] powder, deodorant, jewelry, piercings, perfume, makeup, nail italian, hair accessories, or hair spray on the [...] hospital. The Day of Surgery: Arrive at [facility] Entrance at the time directed by your surgeon and check in at the desk. If you have a living will or healthcare power of ip technology transactions attorney, please bring a copy. You will be taken to the pre-op holding area where you will be prepared for surgery. A physical assessment will be performed by a nurse practitioner or laundry housekeeping aide. Your IV will be started and you [...] encounter* Instructions* Irish Meehan RN - 11/10/2019 [facility] Dr. Liu Jackson M.D. [phone] POST OPERATIVE DISCHARGE INSTRUCTIONS KNEE ARTHROSCOPY 1. Follow-up in office seven to ten days after surgery. Call for appointment if not already made. ([phone]). 2. Take pain medication as ordered. 3. [...] WO CONTRAST Patria Quiñones CPNP [address] [place] [address] Status Reason Specialty Diagnoses / Procedures Referre d By Contact Referred To Contact Diagnoses Acute medial meniscus tear of left knee MEDIAL MENISCUS TEAR LEFT KNEE Procedures AR KNEE SCOPE,DIAGNOSTIC KNEE ARTHROSCOPY WITH PARTIAL MEDICAL MENISECTOMY Liu Jackson MD [address] [facility] [address] [place] [address] [facility] Reason [...] section and content) DATE CREATED AUTHOR 05/06/2020 [facility] DATE CREATED AUTHOR AUTHOR'S ORGANIZ ATION 05/07/2020 [facility] DATE CREATED AUTHOR AUTHOR'S ORGANIZ ATION 12/26/2020 [facility] DATE CREATED AUTHOR AUTHOR'S ORGANIZ ATION 07/06/2021 [facility] DATE CREATED AUTHOR AUTHOR'S ORGANIZ ATION 10/26/2021 [facility] DATE CREATED AUTHOR AUTHOR'S ORGANIZ ATION 08/10/2022 [facility] DATE CREATED AUTHOR AUTHOR'S ORGANIZ ATION 08/24/2022 [facility] DATE CREATED AUTHOR AUTHOR'S ORGANIZ ATION 08/01/2023 [facility] DATE CREATED AUTHOR AUTHOR'S ORGANIZ ATION 08/23/2023 [facility] DATE CREATED AUTHOR AUTHOR'S ORGANIZ ATION 08/25/2023 [facility] DATE CREATED AUTHOR AUTHOR'S ORGANIZ ATION 08/30/2023 [facility] DATE CREATED AUTHOR AUTHOR'S ORGANIZ ATION 09/16/2023 [facility] Comments (unrecognize d section and content) In the event this informatio n is protected by the Federal Confidentiality of Alcohol and Drug Abuse Patient Records regulations: The Federal rules restrict any use of the information to criminally investigate or prosecute any alcohol or drug abuse patient.[facility] the event this information is protected by the Federal Confidentiality of Alcohol and Drug Abuse Patient Records regulations: The Federal rules restrict any use of the information to criminally investigate or prosecute any alcohol or drug abuse patient.[facility] Care Teams (unrecognized sec tion and content) Supervisor [employer] Relationship Specialty Start Date End Date Colten Parra DO [address] [place] [address] PCP - General Family Medicine 04/03/22 Supervisor [employer] Relationship Specialty Start Date End Date Colten Parra DO [address] [place] [address] PCP - General Family Medicine 04/03/22 Supervisor [employer] Relationship Specialty Start Date End Date Colten Parra DO [address] [place] [address] PCP - General Family Medicine 04/03/22 FOR [...] BE BASED ON THE PRIMARY CLINICAL RECORDS. [facility] provides no warranty or guarantee of the accuracy or completeness of information in this document.
== END 2023-11-28 13:22 | disposition home or self-care (01) ==
PROVIDERS: PCP Nurse Practitioner Family; Visit Provider Nurse Practitioner
DX: M16.0 Bilateral primary osteoarthritis of hip (principal); M46.1 Sacroiliitis, not elsewhere classified; M47.816 Spondylosis without myelopathy or radiculopathy, lumbar region; Z79.891 Long term (current) use of opiate analgesic
CPT/HCPCS: G0463

== ENCOUNTER 2024-03-02 11:46 | Outpatient (OUT) | payer BC, SELFPAY ==
--- NOTE | 2024-03-02 13:29 | PM.CN ---
Consult Note: HPI Data of Consult Patient: known to practice within the last 3 years Consult date: 03/02/24 Requesting Physician: Christina Palm MD Primary Care Provider: HUNTER ROBINS Consult Narrative Reason for consult: low back pain, hip pain Narrative: 58yom who presents for assessment. notes that hip pain is most problematic. waiting to have hip replaced in the new year. continues to use norco as needed. denies adverse med side effects. cc:: CC: Christina Palm MD Review of Systems ROS Status of ROS 10 or more systems reviewed and unremarkable except as noted in history and below [facility] Medical History (Updated 07/17/23 @ 10:05 by Priscilla Elkins NP) Osteoarthritis ?M19.90 - Unspecified osteoarthritis, unspecified site (ICD-10) Enlarged prostate ?N40.0 - Benign prostatic hyperplasia without lower urinary tract symptoms (ICD-10) Obstructive sleep apnea on CPAP ?G47.33 - Obstructive sleep apnea (adult) (pediatric) (ICD-10) Sleep apnea ?G47.30 - Sleep apnea, unspecified (ICD-10) History of heart attack ?I25.2 - Old myocardial infarction (ICD-10) Surgical History History of cardiac cath ?Z98.890 - Other specified postprocedural states (ICD-10) History of surgery on lower extremity ?Z98.890 - Other specified postprocedural states (ICD-10) Meds Home Medications and Allergies Home Medications ?Medication ?Instructions ?Recorded ?Confirmed ?Type atorvastatin 80 mg tablet 80 mg PO BEDTIME 08/14/22 10/22/23 History baclofen 10 mg tablet 10 mg PO TID PRN muscle spasm 08/14/22 10/22/23 History divalproex 125 mg tablet,delayed 125 mg PO TID 08/14/22 10/22/23 History release lisinopril 20 1 tab PO DAILY 08/14/22 10/22/23 History mg-hydrochlorothiazide 12.5 mg tablet metoprolol tartrate 25 mg tablet 25 mg PO BID 08/14/22 10/22/23 History hydrocodone 5 mg-acetaminophen 325 1 tab PO BID PRN pain #80 tabs 05/15/23 10/22/23 Rx mg tablet tamsulosin 0.4 mg capsule (Flomax) 0.4 mg PO DAILY 10/22/23 10/22/23 History hydrocodone 5 mg-acetaminophen 325 1 tab PO BID PRN pain #55 tabs 10/23/23 Rx mg tablet hydrocodone 5 mg-acetaminophen 325 1 tab PO BID PRN pain #60 tabs 11/28/23 Rx mg tablet hydrocodone 5 mg-acetaminophen 325 1 tab PO BID PRN pain #60 tabs 12/27/23 Rx mg tablet baclofen 10 mg tablet See Rx Instructions .Route 01/24/24 Rx .COMPLEX PRN muscle spasm #90 tabs hydrocodone 5 mg-acetaminophen 325 1 tab PO BID PRN pain #60 tabs 01/24/24 Rx mg tablet hydrocodone 5 mg-acetaminophen 325 1 tab PO BID #60 tabs 02/27/24 Rx mg tablet Allergies Allergy/AdvReac Type Severity Reaction Status Date / Time amoxicillin AdvReac Mild Nausea Verified 10/22/23 08:11 prednisone AdvReac Mild Nausea Verified 10/22/23 08:11 Exam Narrative Exam Narrative: Psych-alert and oriented x 3. Attentive and appropriate, constitutionally normal, displays normal mood and affect per situation.? There are no obvious deficits in memory, reasoning, or intellect.? Skin-no obvious rashes, bruising, erythema noted to the patient's area of pain. Extremities- extremities are warm with minimal edema and palpable pulses. Lumbar-no significant tenderness to palpation noted in the lumbar spine and paraspinal musculature.? Pain is elicited with extension, and lateral rotation of the lumbar spine. Range of motion is slightly diminished with these motions due to pain. Coordination remains intact.? Gait remains non-antalgic. Assessment and Plan Assessment and Plan (1) Lumbar spondylosis: Plan 58yom who presents for assessment. continues to do relatively well from a back standpoint. mostly hip pain at this point, will have hip replaced in the new year. also changing insurance in the new year. medications reviewed. discussed that we would keep the norco at the same level and frequency. he expressed understanding. follow up in 3 months.
== END 2024-03-02 11:47 | disposition home or self-care (01) ==
LOC: PM 11:46
PROVIDERS: PCP Nurse Practitioner Family; Visit Provider Anesthesiology
DX: M47.816 Spondylosis without myelopathy or radiculopathy, lumbar region (principal)
CPT/HCPCS: G0463

== ENCOUNTER 2024-05-21 08:35 | Outpatient (OUT) | payer OTHER, SELFPAY ==
--- NOTE | 2024-05-21 09:22 | P.CN_ITS ---
Consult Note: HPI Data of Consult Patient: known to practice within the last 3 years Consult date: 03/02/24 Requesting Physician: Priscilla Elkins NP Primary Care Provider: HUNTER ROBINS Consult Narrative Reason for consult: low back pain, hip pain Narrative: 58yom who presents for assessment. notes that hip pain is most problematic. waiting to have hip replaced in the new year. continues to use norco as needed and zonegran 100mg BID. denies adverse med side effects. cc:: CC: Priscilla Elkins NP Review of Systems ROS Status of ROS 10 or more systems reviewed and unremark able except as noted in history and below Musculoskeletal Reports: joint pain PFSH PFSH Medical History (Updated 07/17/23 @ 10:05 by Priscilla Elkins NP) Osteoarthritis ?M19.90 - Unspecified osteoarthritis, unspecified site (ICD-10) Enlarged prostate ?N40.0 - Benign prostatic hyperplasia without lower urinary tract symptoms (ICD-10) Obstructive sleep apnea on CPAP ?G47.33 - Obstructive sleep apnea (adult) (pediatric) (ICD-10) Sleep apnea ?G47.30 - Sleep apnea, unspecified (ICD-10) History of heart attack ?I25.2 - Old myocardial infarction (ICD-10) Surgical History History of cardiac cath ?Z98.890 - Other specified postprocedural states (ICD-10) History of surgery on lower extremity ?Z98.890 - Other specified postprocedural states (ICD-10) Meds Home Medications and Allergies Home Medications ?Medication ?Instructions ?Recorded ?Confirmed ?Type atorvastatin 80 mg tablet 80 mg PO BEDTIME 08/14/22 10/22/23 History baclofen 10 mg tablet 10 mg PO TID PRN muscle spasm 08/14/22 10/22/23 History divalproex 125 mg tablet,delayed 125 mg PO TID 08/14/22 10/22/23 History release lisinopril 20 1 tab PO DAILY 08/14/22 10/22/23 History mg-hydrochlorothiazide 12.5 mg tablet metoprolol tartrate 25 mg tablet 25 mg PO BID 08/14/22 10/22/23 History hydrocodone 5 mg-acetaminophen 325 1 tab PO BID PRN pain #80 tabs 05/15/23 10/22/23 Rx mg tablet tamsulosin 0.4 mg capsule (Flomax) 0.4 mg PO DAILY 10/22/23 10/22/23 History hydrocodone 5 mg-acetaminophen 325 1 tab PO BID PRN pain #55 tabs 10/23/23 Rx mg tablet hydrocodone 5 mg-acetaminophen 325 1 tab PO BID PRN pain #60 tabs 11/28/23 Rx mg tablet hydrocodone 5 mg-acetaminophen 325 1 tab PO BID PRN pain #60 tabs 12/27/23 Rx mg tablet baclofen 10 mg tablet See Rx Instructions .Route 01/24/24 Rx .COMPLEX PRN muscle spasm #90 tabs hydrocodone 5 mg-acetaminophen 325 1 tab PO BID PRN pain #60 tabs 01/24/24 Rx mg tablet hydrocodone 5 mg-acetaminophen 325 1 tab PO BID #60 tabs 02/27/24 Rx mg tablet hydrocodone 5 mg-acetaminophen 325 1 tab PO BID PRN pain #60 tabs 03/31/24 Rx mg tablet hydrocodone 5 mg-acetaminophen 325 1 tab PO BID PRN pain #60 tabs 04/30/24 Rx mg tablet zonisamide 100 mg capsule 100 mg PO BID #180 caps 04/30/24 Rx (Zonegran) Allergies Allergy/AdvReac Type Severity Reaction Status Date / Time amoxicillin AdvReac Mild Nausea Verified 10/22/23 08:11 prednisone AdvReac Mild Nausea Verified 10/22/23 08:11 Exam Constitutional Documenting provider has reviewed patient's vital signs: yes Common normals: no apparent distress, oriented x3, healthy appearing, alert and well nourished General appearance: cooperative Orientation/consciousness: Yes awake, Yes oriented to person, Yes oriented to place and Yes oriented to time HENMT Common normals: normocephalic, hearing grossly normal bilaterally and moist oral mucous membranes Head and scalp: normocephalic Eye Common normals: PERRL Pupil: PERRL Neck & C-Spine Common normals: full ROM General: normal visual inspection Chest Common normals: inspection of chest normal Respiratory Common normals: normal respiratory effort, no retractions and no use of accessory muscles Effort & inspection: able to speak in complete sentences and symmetric chest movement Back & Pelvis Lumbar spine/lower back: normal to inspection, lumbar ROM normal and straight leg raise negative bilaterally Sacroiliac joints: SI joint(s) abnormal Other: left SIJ positive cathie(patricks), gaenslens, thigh thrust, compression test Extremity Common normals: normal capillary refill and no pedal edema Other: Positive internal and external rotation of left hip muscle strength 5/5 bilat LE with intact sensation Neuro Common normals: oriented x3, CN's II-XII intact bilaterally, moves all extremities, no focal motor deficits, no sensory deficits noted and deep tendon reflexes 2+ bilaterally Sensorium/orientation: alert Gait (neuro): assistive device used cane Motor exam: strength 5/5 throughout and no movement abnormalities noted Psych Common normals: mental status grossly normal, thought process normal, cooperative, affect normal, speech normal and activity/motor behavior normal Speech: normal speech Thought process: normal thought process Results Additional Findings Additional findings: If on a controlled substance or opioids, I have checked an [place] report on this patient and there are no aberrancies noted in the prescribing history.??If on a controlled substance or opioid a drug screen was completed and reviewed within the last year, and if there has not been a drug screen completed we ordered one today to monitor higher risk, state monitored pain medication use. As part of providing excellent, safe, comprehensive care, the following was completed at our patient's visit: 1. A medication reconciliation and review to ensure accurate knowledge of current/active medications, including asking our patients to inform us about any [id number] medications or herbal remedies/nutritional supplements/alternative remedies. 2. A review to specifically ensure our patients have had annual screening for screening for depression, screening for tobacco use, and screening for unhealthy alcohol use. For concerning screenings had a discussion with the patient, provided patient education, and recommended follow-up with primary care provider when appropriate. If patient noted with a risk of falling, they received education on strength, gait, and balance training to prevent future risk of falling. Portions of this note may have been carried over from the previous visit and updated as appropriate. Please note this office utilizes paper charting in addition to the electronic medical record. A list of current medications, vitals, and PMH is available there as the clinical staff outside of myself do not have access to [employer] charting during the clinic day operations. As part of providing quality comprehensive care the current medications, vitals, and PMH were reviewed in the paper chart. Assessment and Plan Assessment and Plan (1) Lumbar spondylosis: (2) Sacroiliitis: (3) Labral tear of left hip joint: (4) Osteoarthritis, hip, bilateral: (5) Chronic prescription opiate use: Assessment and Plan: I feel these medications are improving the patient's quality of life and allow them to tolerate activities of daily living as well as participate in recreational activity.? The patient does not report intolerable side effects. The patient is NOT opioid naive and non-pharmacologic and non-opioid treatment has failed to significantly relieve the patient's pain and improve functionality. The patient has a diagnosis that is related to a somatic or vis ceral pain etiology. ? ?? I reviewed with the patient the potential risks and side effects with the use of? opioid medications including but not limited to respiratory depression,? sedation, and even . Within the last 12 months I have verified the patient has access to naloxone should? these effects occur. The patient was advised to let? their family know they had Naloxone in case they would need to administer? the medication. I advised the patient to avoid the use of any other? sedation substances including alcohol, THC, and benzodiazepines while? taking opioid medications due to the risk of compounding side effects and? detrimental outcomes. within the last 12 months I have reviewed the DIRECTOR OF PULMONARY UNIT, pain treatment agreement and urine drug screen.? ?? A drug screen was completed within the last year, and no aberrancies were noted regarding their use of controlled substances. The patient understands they are subject to the terms and conditions of the pain contract that they have signed. ? ?? I have checked an [place]AR[place] report on this patient today and there are no aberrancies noted in the prescribing history.? Plan 58 year old male presents for evaluation of chronic low back and left hip pain. continues to f/u with orthopedics, pending left hip replacement. at this time risks vs benefits of current medication reviewed. will increase zonegran 150mg BID, start cyclobenzaprine 10mg TID PRN pain/spasms, and continue hydrocodone- acetaminophen 5-325mg BID PRN moderate to severe pain. f/u 3 months, sooner if needed
== END 2024-05-21 08:36 | disposition home or self-care (01) ==
PROVIDERS: PCP Nurse Practitioner Family; Visit Provider Nurse Practitioner
DX: M47.816 Spondylosis without myelopathy or radiculopathy, lumbar region (principal); M46.1 Sacroiliitis, not elsewhere classified; S73.192A Other sprain of left hip, initial encounter; M16.0 Bilateral primary osteoarthritis of hip; Z79.891 Long term (current) use of opiate analgesic
CPT/HCPCS: G0463

== ENCOUNTER 2024-08-20 14:12 | Outpatient (OUT) | payer MEDICARE, SELFPAY ==
--- NOTE | 2024-08-20 13:45 | PM.CN ---
Consult Note: HPI Data of Consult Patient: known to practice within the last 3 years Consult date: 08/20/24 Requesting Physician: Priscilla Elkins NP Primary Care Provider: HUNTER ROBINS Consult Narrative Reason for consult: low back pain, hip pain Narrative: 59yom who presents for assessment. notes that hip pain is most problematic. waiting to have hip replaced in the new year. continues to use norco as needed and zonegran 150mg BID. denies adverse med side effects. cc:: CC: Priscilla Elkins NP Review of Systems ROS Status of ROS 10 or more systems reviewed and unremarkable except as noted in history and below Musculoskeletal Reports: joint pain PFSH PFSH Medical History (Updated 07/17/23 @ 10:05 by Priscilla Elkins NP) Osteoarthritis ?M19.90 - Unspecified osteoarthritis, unspecified site (ICD-10) Enlarged prostate ?N40.0 - Benign prostatic hyperplasia without lower urinary tract symptoms (ICD-10) Obstructive sleep apnea on CPAP ?G47.33 - Obstructive sleep apnea (adult) (pediatric) (ICD-10) Sleep apnea ?G47.30 - Sleep apnea, unspecified (ICD-10) History of heart attack ?I25.2 - Old myocardial infarction (ICD-10) Surgical History History of cardiac cath ?Z98.890 - Other specified postprocedural states (ICD-10) History of surgery on lower extremity ?Z98.890 - Other specified postprocedural states (ICD-10) Meds Home Medications and Allergies Home Medications ?Medication ?Instructions ?Recorded ?Confirmed ?Type atorvastatin 80 mg tablet 80 mg PO BEDTIME 08/14/22 10/22/23 History divalproex 125 mg tablet,delayed 125 mg PO TID 08/14/22 10/22/23 History release lisinopril 20 1 tab PO DAILY 08/14/22 10/22/23 History mg-hydrochlorothiazide 12.5 mg tablet metoprolol tartrate 25 mg tablet 25 mg PO BID 08/14/22 10/22/23 History tamsulosin 0.4 mg capsule (Flomax) 0.4 mg PO DAILY 10/22/23 10/22/23 History zonisamide 100 mg capsule 100 mg PO BID #180 caps 02/27/25 Rx (Zonegran) cyclobenzaprine 10 mg tablet 10 mg PO TID PRN muscle spasm #90 05/21/24 Rx tabs hydrocodone 5 mg-acetaminophen 325 1 tab PO BID PRN pain, moderate 05/21/24 Rx mg tablet #60 tabs zonisamide 50 mg capsule 50 mg PO BID #60 caps 05/21/24 Rx hydrocodone 5 mg-acetaminophen 325 1 tab PO BID PRN pain #60 tabs 07/02/24 Rx mg tablet cyclobenzaprine 10 mg tablet 10 mg PO TID PRN muscle spasm #90 07/20/24 Rx tabs zonisamide 50 mg capsule 150 mg (3 x 50 mg) PO BID #180 caps 07/20/24 Rx hydrocodone 5 mg-acetaminophen 325 1 tab PO BID PRN pain #60 tabs 08/10/24 Rx mg tablet Allergies Allergy/AdvReac Type Severity Reaction Status Date / Time amoxicillin AdvReac Mild Nausea Verified 10/22/23 08:11 prednisone AdvReac Mild Nausea Verified 10/22/23 08:11 Exam Constitutional Documenting provider has reviewed patient's vital signs: yes Common normals: no apparent distress, oriented x3, healthy appearing, alert and well nourished General appearance: cooperative Orientation/consciousness: Yes awake, Yes oriented to person, Yes oriented to place and Yes oriented to time HENMT Common normals: normocephalic, hearing grossly normal bilaterally and moist oral mucous membranes Head and scalp: normocephalic Eye Common normals: PERRL Pupil: PERRL Neck & C-Spine Common normals: full ROM General: normal visual inspection Chest Common normals: inspection of chest normal Respiratory Common normals: normal respiratory effort, no retractions and no use of accessory muscles Effort & inspection: able to speak in complete sentences and symmetric chest movement Back & Pelvis Lumbar spine/lower back: normal to inspection, lumbar ROM normal and straight leg raise negative bilaterally Sacroiliac joints: SI joint(s) abnormal Other: left SIJ positive cathie(patricks), gaenslens, thigh thrust, compression test Extremity Common normals: normal capillary refill and no pedal edema Other: Positive internal and external rotation of left hip muscle strength 5/5 bilat LE with intact sensation Neuro Common normals: oriented x3, CN's II-XII intact bilaterally, moves all extremities, no focal motor deficits, no sensory deficits noted and deep tendon reflexes 2+ bilaterally Sensorium/orientation: alert Gait (neuro): assistive device used cane Motor exam: strength 5/5 throughout and no movement abnormalities noted Psych Common normals: mental status grossly normal, thought process normal, cooperative, affect normal, speech normal and activity/motor behavior normal Speech: normal speech Thought process: normal thought process Results Additional Findings Additional findings: If on a controlled substance or opioids, I have checked an OARRS report on this patient and there are no aberrancies noted in the prescribing history.??If on a controlled substance or opioid a drug screen was completed and reviewed within the last year, and if there has not been a drug screen completed we ordered one today to monitor higher risk, state monitored pain medication use. As part of providing excellent, safe, comprehensive care, the following was completed at our patient's visit: 1. A medication reconciliation and review to ensure accurate knowledge of current/active medications, including asking our patients to inform us about any [id number] medications or herbal remedies/nutritional supplements/alternative remedies. 2. A review to specifically ensure our patients have had annual screening for screening for depression, screening for tobacco use, and screening for unhealthy alcohol use. For concerning screenings had a discussion with the patient, provided patient education, and recommended follow-up with primary care provider when appropriate. If patient noted with a risk of falling, they received education on strength, gait, and balance training to prevent future risk of falling. Portions of this note may have been carried over from the previous visit and updated as appropriate. Please note this office utilizes paper charting in addition to the electronic medical record. A list of current medications, vitals, and PMH is available there as the clinical staff outside of myself do not have access to [facility] charting during the clinic day operations. As part of providing quality comprehensive care the current medications, vitals, and PMH were reviewed in the paper chart. Assessment and Plan Assessment and Plan (1) Lumbar spondylosis: (2) Sacroiliitis: (3) Labral tear of left hip joint: (4) Osteoarthritis, hip, bilateral: (5) Chronic prescription opiate use: Assessment and Plan: I feel these medications are improving the patient's quality of life and allow them to tolerate activities of daily living as well as participate in recreational activity.? The patient does not report intolerable side effects. The patient is NOT opioid naive and non-pharmacologic and non-opioid treatment has failed to significantly relieve the patient's pain and improve functionality. The patient has a diagnosis that is related to a somatic or visceral pain etiology. ? ?? I reviewed with the patient the potential risks and side effects with the use of? opioid medications including but not limited to respiratory depression,? sedation, and even . Within the last 12 months I have verified the patient has access to naloxone should? these effects occur. The patient was advised to let? their family know they had Naloxone in case they would need to administer? the medication. I advised the patient to avoid the use of any other? sedation substances including alcohol, THC, and benzodiazepines while? taking opioid medications due to the risk of compounding side effects and? detrimental outcomes. within the last 12 months I have reviewed the [employer], pain treatment agreement and urine drug screen.? ?? A drug screen was completed within the last year, and no aberrancies were noted regarding their use of controlled substances. The patient understands they are subject to the terms and conditions of the pain contract that they have signed. ? ?? I have checked an OARRS report on this patient today and there are no aberrancies noted in the prescribing history.? Plan 59 year old male presents for evaluation of chronic low back and left hip pain. continues to f/u with orthopedics, pending left hip replacement. at this time risks vs benefits of current medication reviewed. continue zonegran 150mg BID, cyclobenzaprine 10mg TID PRN pain/spasms, and continue hydrocodone-acetaminophen 5-325mg BID PRN moderate to severe pain. pt declining repeat left hip injection, notes >50% improvement greater than 3 months. can call to schedule if he is not moving forward with hip replacement. update UDS today. f/u 3 months
== END 2024-08-20 14:13 | disposition home or self-care (01) ==
PROVIDERS: PCP Nurse Practitioner Family; Visit Provider Nurse Practitioner
DX: M54.50 Low back pain, unspecified (principal); M47.816 Spondylosis without myelopathy or radiculopathy, lumbar region; M46.1 Sacroiliitis, not elsewhere classified; S73.192A Other sprain of left hip, initial encounter; M16.0 Bilateral primary osteoarthritis of hip; Z79.891 Long term (current) use of opiate analgesic
CPT/HCPCS: G0463

== ENCOUNTER 2024-10-20 10:26 | Outpatient (OUT) | payer MEDICARE, SELFPAY ==
--- OUTSIDE RECORDS SUMMARY | 2024-10-14 21:00 | XMS_ITS | Continuity of Care Document ---
Author Organization [facility] Address [address] [place] [address] Phone Care Team Providers Care Geophysical Prospecting Permit Agent Name Role Phone Colten Parra DO Primary Care Provider Kamila Chan APRN Attending Provider Care Teams Patient Care Team Team Status: Active Member Role Status Dates Colten Parra DO Primary Care Provider Active Visit Care Team Team Status: Inactive Member Role Status Dates Colten Parra DO Primary Care Provider Active Start: October 06, 2024 End: October 06, 2024 Kamila Chan APRN Attending Provider Active Start: October 06, 2024 End: October 06, 2024 Visit Care Team Team Status: Inactive Member Role Status Dates Colten Parra DO Primary Care Provider Active Start: October 14, 2024 End: October 14, 2024 Kamila Chan APRN Attending Provider Active Start: October 14, 2024 End: October 14, 2024 Chief Complaint and Reason for Visit Chief Complaint Admit Date back pain no images October 06, 2024 10: 03am M54.16 M79.604 October 14, 2024 9: 23am Reason for Visit Admit Date Left lumbar radiculopathy October 06 10:03am Right leg pain October 06, 2024 10: 03am Reason for Referral Referring Provider Name Referring Provider Address Referring Provider Phone Referral Date Requested Appointment Date Referral Reason Kamila Chan [address] [address] Work Phone: October 06, 2024 M25.552 - Pain in left hip Kamila Chan [address] [address] Work Phone: October 06, 2024 M54.16 - Radiculopathy , lumbar region October 06, 2024 M25 .552 - Pain in left hip October 06, 2024 M54 .16 - Radiculopathy , lumbar region Allergies, Adverse Reactions, Alerts Allergen Type Severity Reaction Last Updated Verified Status fentanyl Allergy Mild Vomiting October 06, 2024 10:06am Yes Active amoxicillin Allergy Unknown Vomiting October 06, 2024 10:06am Ye s Active isosorbide Allergy Unknown Headache October 06, 2024 10:06am Yes Active prednisone Allergy Unknown Palpitations October 06, 2024 10:06am Yes Active Social History Smoking Status Status Start Date End Date Date of Observa tion Smokes tobacco daily (finding) January 09, 2024 1:11pm Observation Status Observation Response Date of Response Legal Sex Male (finding) Sex Assigned At Male July 08, 966 Problems Active Problems Medical Problem Onset Date Status Right leg pain Unknown Active Left lumbar radiculopathy Unknown Active Hypertension Unknown Active Medications Medication Status Dose Units Route Directions Qty Days St art Date Stop Date End Date Instructions Adherence Atorvastati n 80 mg tablet Active 80 MG PO Daily Novemb er 2023 1:00am Unknown Lisinopril- Hydrochloro thiazide 20-12.5 mg tablet [facility] Unknown Hydrocodone -Acetaminop hen 5-325 mg tablet Active 1 TAB PO Twice daily as needed for pain Novemb er 2023 1:00am Unknown Amlodipine 5 mg tablet Discont inued 5 MG [facility] 1:00am 2024 10:07 am Aspirin 81 mg tablet,rosalee yed release (DR/EC) Active 81 MG PO [facility] 1:00am Unknown Tamsulosin 0.4 mg capsule Active 0.4 MG PO Daily [facility] 1:00am Unknown Baclofen 10 mg tablet Discont inued 30 MG PO [facility] 1:00am Augus t 2024 10:09 am Divalproex 125 mg tablet,rosalee yed release (DR/EC) Active 125 MG PO [facility] 1:00am Unknown Metoprolol Tartrate 50 mg tablet Active 50 MG PO Daily Novemb er 2023 1:00am Unknown Nitroglycer in 0.4 mg tablet, sublingual Active 0.4 MG SUBLIN GUAL Q5M as needed for chest pain Novemb er 2023 1:00am Unknown Finasteride 5 mg tablet Active 5 MG PO Daily Novemb er 2023 1:00am Unknown Magnesium Oxide (Magox) 400 mg (241.3 mg magnesium) tablet Active 400 MG PO Daily Novemb er 2023 1:00am Unknown Cyclobenzap rine 10 mg tablet Active 10 MG PO Three times daily October 06, 2024 12:00a m Unknown Lisinopril 20 mg tablet Active 20 MG PO Daily October 06, 2024 12:00a m Unknown Spironolact one (Aldactone) 25 mg tablet Active 25 MG PO Daily October 06, 2024 12:00a m Unknown Zonisamide 100 mg capsule Active 100 MG PO Three times daily October 06, 2024 12:00a m Unknown Procedures Procedure Date Performed Status XR lumbar spine 6V w bending October 14, 2024 9 :32am completed Relevant Diagnostic Tests and/or Laboratory Data Diagnostic Imaging Reports Author Rosendo Garza [facility] Report Date/Time October 14, 2024 12 :56pm [facility] [place] [address] XRay Report Signed Patient: Dale Belcher MR#: [id number] : 1965 Acct:[id number] Age/Sex: 59 / M ADM Date: 5 Loc: XD Room: Type: [facility] Attending Dr: Kamila Chan APRN Copies to: Kamila Chan APRN~ Ordering Provider: Kamila Chan APRN Date of Service: 10/14/24 XR/XR lumbar spine 6V w bending: M54.16 - Radiculopathy, lumbar region 6 views Lumbar Spinewith bending HISTORY: Right radiculopathy for 2 years. Back spasms. COMPARISON: 07/31/2022 POSTSURGICAL CHANGES: None BONY ALIGNMENT: Similar mild scoliosis HYPERMOBILITY:No hypermobility LISTHESIS:Similar mild listhesis FRACTURE: None DEGENERATIVE CHANGES: Similar degenerative changes greatest in the lower lumbar facets. SOFT TISSUES: Atherosclerosis . BONY MINERALIZATION:Adequate XR/XR lumbar spine 6V w bending IMPRESSION: No hypermobility. Similar degenerative changes greatest in the lower lumbar facets. Impression dictated by: Rosendo Garza M.D. 10/14/2024 12:56 PM Dictation Location: [facility] Transcribed By: [facility] 10/14/24 1256 Dictated By: Rosendo Garza DO 10/14/24 1255 Signed By: <Electronically signed by Rosendo Garza DO in OV> 10/14/24 1256 Vital Signs Vital Reading Result Reference Range Collection Date/Time Height 74 [in_i] October 06 10:04am Weight 127.30 kg October 06 10:04am BMI (Body Mass Index) 36.0 kg/m2 October 06, 2024 10:04am Advance Directives Advance Directive Response Recorded Date/ Time Advance Directives No January 08, 2024 4:41pm Insurance Providers Guarantor Dale Belcher Address [address] [place] [phone] Contact Info. Home Phone: Payer Policy Id Subscriber's Name Subscriber Id Effectiv e Date Expiration Date Jordy VIEIRA [id number] Dale Belcher [id number] Encounters Encounter Location(s) Arrival/Admit Date Discharge/Depart Date Provider(s) Departed Physician/Prov ider Office Visit -[facility] October 06, 2024 10:03am October 06, 2024 10:30am Kamila Chan APRN Departed Clinical -[facility] [place] October 14, 2024 9:23am October 14, 2024 9:24am Kamila Chan APRN Recent Diagnosis Onset Date Admit Date Left lumbar radiculopathy Unknown October 06, 2024 10:03am Right leg pain Unknown October 06, 2024 10:03am Assessments Diagnosis Onset Date Resolution Status Admit Date Left lumbar radiculopathy acute October 06, 2024 10:03am Right leg pain acute October 10:03am Plan of Treatment Author Kamila Chan [facility] Authored October 06, 2024 10: 33am Patient is a 59-year-old mal e with past history of lumbar laminectomy presenting today with complaints of radicular back symptoms. He had a work-related injury a little over a year ago when he fell and fractured his right tibial plateau Which was subsequently repaired. Ever since then he has been experiencing worsening back pain with left hip radiation. He was seen and evaluated by orthopedic surgery for the left hip which does show some degeneration and questionable torn labrum. Patient tells me that he also experiences the right posterior thigh radiation, sciatica-like pain stopping at the knee. His assessment is notable for some muscle mass loss in the left left calf area. Diffuse weakness of the left leg which is mild. Normal reflexes. Pain to bilateral SI joints. Left trochanteric tenderness. No recent lumbar spine x-rays. I will refer the patient to physical therapy for strengthening. He needs to work on the left lower extremity strength. I will also order flexion/extension x-rays of his back. He requests a referral to orthopedic surgery locally for his left hip which will be provided today. I will see him back in the office upon completion of therapy Future Tests Future scheduled test information is unavailable Pending Tests Pending diagnostic test information is unavailable Future Visits Future appointment information is unavailable Referrals to Other Providers Reason for Referral Referral Start Date Provider Provider Contact Information Provider Address M25.372 - Pain in left hip October 06, 2024 Dixie Graham MD Work Phone: [facility] [address] M54.16 - Radiculopathy, lumbar region October 06, 2024 Determined by Patient Future Procedures Future procedure information is unavailable Future Medications Future medication information is unavailable Patient Instructions Patient instructions are unavailable
--- NOTE | 2024-10-20 | XR_ITS ---
[facility] [place] [id number] Patient Name: ASHOK DOSS MRN: [id number] date: 1965 Sex: M Assigned Patient Location: [facility] Current Patient Location: [facility] Accession/Order Number: [id number] Exam Date: 10/20/2024 12:20 Report Date: 10/20/2024 12:22 At the request of: LILLIAM PHILLIP MD Procedure: XR hip LT 1V w/ pelvis 2 views left hip with single view pelvis HISTORY: left hip pain. Months duration COMPARISON: MRI the left hip 09/20/2022 [id number] contact superior joint space narrowing of the left hip. Subarticular sclerotic changes of acetabulum. No articular bone collapse. No AVN. No acute fracture. Adequate alignment. XR/XR hip LT 1V w/ pelvis IMPRESSION: Extensive left hip degeneration. mild progression. Impression dictated by: Rosendo Garza M.D. 10/20/2024 12:22 PM Dictation Location: [place] [address] Electronically authenticated by: [id number] Y Date: 10/20/2024 12:22
--- OUTSIDE RECORDS SUMMARY | 2024-10-20 10:28 | XMS_ITS | Encounter Summary ---
Author Organization [facility] Address [id number] [address] [place] [address] Care Team Providers Care Second Language Tutor Name Role Phone ElisaColten figueroa Raymond CARR Primary Care Provider [phone] Encounter Details Date Type Department Care Team (Late st Contact Info) Description 08/06/[address] [facility] [address] [place] [id number] Jaqueline Warren CMA Social History Tobacco Use Types Packs/Day Years Used Date Smoking Tobacco: Every Day Cigarettes 1 46.6 Started: 1978 Smokeless Tobacco: Never Alcohol Use Standard Drinks/Week Comments Yes 0 (1 standard drink = 0.6 oz pur e alcohol) rarely PHQ-2 Answer Date Recorded Total Score 6 08/05/2023 Childcare Answer Date Recorded Childcare Unknown 08/13/2018 Employment Answer Date Recorded Employment Unknown 08/13/2018 Hunger Screening Answer Date Recorded Within the past 12 months we worried whether our food would run out before we got money to buy more. Never True 08/05/2023 Within the past 12 months th e food we bought just didn't last and we didn't have money to get more. Never True 08/05/2023 Purpose - Life Answer Date Recorded Purpose and direction in life Unknown Sex and Gender Information Value Date Recorded Sex Assigned at Not on file Legal Sex Male 12:13 PM EDT Gender Identity Not on file Sexual Orientation Not on file documented as of this encounter Miscellaneous Notes * Telephone Encounter - Jaqueline Warren CMA - 08/06/2023 1:38 PM EDT Pt called stated the RX's you gave him yesterday did not work out well for him and requested something else ? * Telephone Encounter - Magda Uribe EstuardotimothyADALBERTO - 08/06/2023 1:38 PM EDT What does he mean by they didn't work out well, he needs to be specific * Telephone Encounter - Jaqueline Warren CMA - 08/06/2023 1:38 PM EDT Pt stated that he's had these before they make him vomit and nauese and prednisone woke him up withhis heart beating out of his chest documented in this encounter Plan of Treatment Upcoming Encounters Date Type Department Care Team (Late st Contact Info) Description 11/18/2024 2:15 PM EDT Office Visit [facility] [address] [place] [address] [place] [address] Сергей Lucas MD [address] [place] [address] documented as of this encounter Goals Goal Patient Goal Type Associated Problems Recent Progress Patient-Stated? Author safe discharge ot home General Yes Simran Mallory, RN Note: Evaluation of progress towards goal: safe transition to home with support of pt's and resumption with outpatient PT. documented as of this encounter Visit Diagnoses Not on filedocumented in this encounter Additional Health Concerns Assessment Noted Time PHQ-9 Depression Total Score: 6 08/05/19 24 2:49 PM EDT documented as of this encounter Care Teams Second Language Tutor Relationship Specialty Start Date End Date Colten Parra DO [address], [place] [address] PCP - General Family Medicine 04/03/22 documented as of this encounter
--- OUTSIDE RECORDS SUMMARY | 2024-10-20 10:28 | XMS_ITS | Encounter Summary ---
Author Organization [employer] Address [id number] [address] [place] [address] Care Team Providers Care Shirt Cleaner Name Role Phone Colten Parra DO Primary Care Provider +1- [phone] Reason for Visit * Reason Comments Med Refill Encounter Details Date Type Department Care Team (Late Contact Info) Description 08/16/2022 Refill [facility] Internal [facility] - Family Medicine [address] [place] [address] Colten Parra DO [address], [facility] [address] Migraine, unspecified, not intractable, without status migrainosus Social History Tobacco Use Types Packs/Day Years Used Date Smoking Tobacco: Every Day Smokeless Tobacco: Never Alcohol Use Standard Drinks/Week Comments Yes 0 (1 standard drink = 0.6 oz pur e alcohol) rarely PHQ-2 Answer Date Recorded Total Score 0 06/08/2022 Childcare Answer Date Recorded Childcare Unknown 08/13/2018 Employment Answer Date Recorded Employment Unknown 08/13/2018 Purpose - Life Answer Date Recorded Purpose and direction in life Unknown Sex and Gender Information Value Date Recorded Sex Assigned at Not on file Legal Sex Male 12:13 PM EDT Gender Identity Not on file Sexual Orientation Not on file documented as of this encounter Plan of Treatment Upcoming Encounters Date Type Department Care Team (Late Contact Info) Description 11/18/2024 2:15 PM EDT Office Visit [facility] [address] [place] [address] [place] [address] Сергей Lucas MD [address] [place] [address] documented as of this encounter Goals Goal Patient Goal Type Associated Problems Recent Progress Patient-Stated? Author safe discharge ot home General Yes Simran Mallory, RN Note: Evaluation of progress towards goal: safe transition to home with support of pt's and resumption with outpatient PT. documented as of this encounter Visit Diagnoses Diagnosis Migraine, unspecified, not intractable, without status migrainosus documented in this encounter Additional Health Concerns Assessment Noted Time PHQ-9 Depression Total Score: 0 06/09/19 23 9:55 AM EDT documented as of this encounter Care Teams Shirt Cleaner Relationship Specialty Start Date End Date Colten Parra DO [facility] [address] [facility] [place] [address] PCP - General Family Medicine 04/03/22 documented as of this encounter
--- OUTSIDE RECORDS SUMMARY | 2024-10-20 10:28 | XMS_ITS | Encounter Summary ---
Author Organization [facility] Address [id number] [address] [place] [address] Care Team Providers Care Rn Flight Name Role Phone Colten Parra Primary Care Provider [phone]- [phone] Encounter Details Date Type Department Care Team (Late st Contact Info) Description 06/15/2022 Orders Only [facility] Internal [facility] - Family Medicine [address] [place] [address] External, Scanning Provider Social History Tobacco Use Types Packs/Day Years [...] on file Sexual Orientation Not on file COVID-19 Exposure Response Date Recorded In the last month, have you been in contact with someone who was confirmed or suspected to have Coronavirus / COVID-19? No / Unsure 06/08/2022 9:43 AM EDT documented as of this encounter Plan of Treatment Upcoming Encounters Date Type Department Care Team (Late st Contact Info) Description 11/18/2024 2:15 PM EDT Office Visit [facility] [address] [place] [phone] Сергей Lucas MD [address] [place] [address] documented as of this encounter Goals Goal Patient Goal Type Associated Problems Recent Progress Patient-Stated? Author safe discharge ot home General Yes Simran Mallory, RN Note: Evaluation of progress towards goal: safe transition to home with support of pt's and resumption with outpatient PT. documented as of this encounter Procedures Procedure Name Priority Date/Time Associated Diagnosis Comments SPLIT NIGHT SLEEP STUDY Routine 05/25/2020 ECG 12-LEAD Routine 05/04/2020 documented in this encounter Results * Split Night Sleep Study (05/25/2020) us Scanning Provider External SLEEP CENTER ORDERABL ES Final Result Performing Organization Address City/[facility]/ZIP Co de Phone Number MANUALLY TRANSCRIBED RESULTS * ECG 12 lead (05/04/2020) us Scanning Provider External ECG ORDERABLES Final Result MANUALLY TRANSCRIBED RESULTS documented in this encounter Visit Diagnoses Not on filedocumented in this encounter Additional Health Concerns Assessment Noted Time PHQ-9 Depression Total Score: 0 06/09/19 23 9:55 AM EDT documented as of this encounter Care Teams Rn Flight Relationship Specialty Start Date End Date Colten Parra DO [address] [facility] [place] [address] PCP - General Family Medicine 04/03/22 documented as of this encounter
--- OUTSIDE RECORDS SUMMARY | 2024-10-20 10:28 | XMS_ITS | Encounter Summary ---
Author Organization [facility] Address [address] [place] [address] Phone Care Team Providers Care Life Support Technician Name Role Phone Colten Parra DO Primary Care Provider Encounter Details Date Type Department Care Team (Late st Contact Info) Description 08/17/2024 Scanned Document [facility] [address] [place] [id number] Scanning, Generic Provider Social History Tobacco Use Types Packs/Day Years Used Date Smoking Tobacco: Every Day Cigarettes Smokeless Tobacco: Never Alcohol Use Standard Drinks/Week Comments Yes 0 (1 standard drink = 0.6 oz pur e alcohol) very little Sex and Gender Information Value Date Recorded Sex Assigned at Male 12/11/2023 1:53 PM EDT Legal Sex Male 9:05 AM EST Gender Identity Male 12/11/2023 1:53 PM EDT Sexual Orientation Straight 12/11/2023 1: 53 PM EDT documented as of this encounter Plan of Treatment Upcoming Encounters Date Type Department Care Team (Late st Contact Info) Description 02/22/2025 11:00 AM EST Office Visit [facility] [address] [facility] [address] [place] [address] Rachel Stacy MD [address] [facility] [address] [place] [address] documented as of this encounter Procedures Procedure Name Priority Date/Time Associated Diagnosis Comments OUTSIDE LAB SCAN 08/17/2024 documented in this encounter Results * OUTSIDE LAB SCAN (08/17/2024) Narrative 08/17/2024 Ordered by an unspecified provider. us Generic Provider Scanning OUTSIDE SCAN Final Result documented in this encounter Visit Diagnoses Not on filedocumented in this encounter Care Teams Life Support Technician Relationship Specialty Start Date End Date Colten Parra DO PCP - General 12/23/20 documented as of this encounter
--- OUTSIDE RECORDS SUMMARY | 2024-10-20 10:28 | XMS_ITS | Encounter Summary ---
Author Organization [facility] Address [address] [place] [address] Phone Care Team Providers Care Department Secretary Name Role Phone Colten Parra DO Primary Care Provider Encounter Details Date Type Department Care Team (Late st Contact Info) Description 01/09/2024 Scanned Document [facility] [address] [place] [phone] Scanning, Generic Provider Social History Tobacco Use [...] Orientation Straight 12/11/2023 1: 53 PM EDT COVID-19 Exposure Response Date Recorded In the last 10 days, have yo u been in contact with someone who was confirmed or suspected to have Coronavirus/COVID-19? No / Unsure 01/06/2024 3:05 PM EST documented as of this encounter Plan of Treatment Upcoming Encounters Date Type Department Care Team (Late st Contact Info) Description 02/22/2025 11:00 AM EST Office Visit [facility] [address] [facility] [address] [place] [address] Rachel Stacy MD [address] [facility] [address] [place] [address] documented as of this encounter Visit Diagnoses Not on filedocumented in this encounter Care Teams Department Secretary Relationship Specialty Start Date End Date Colten Parra DO PCP - General 12/23/20 documented as of this encounter
--- OUTSIDE RECORDS SUMMARY | 2024-10-20 10:28 | XMS_ITS | Encounter Summary ---
Author Organization [facility] [employer] [facility] Address [id number] [address] [place] [address] Care Team Providers Care Mechanic'S Assistant Name Role Phone Colten Parra DO Primary Care Provider +1- [phone] Encounter Details Date Type Department Care Team (Late st Contact Info) Description 07/02/2022 [facility]phone [facility] [address] [place] [address] Colten Parra DO [address], [place] [address] Social History Tobacco Use Types Packs/Day Years [...] AM EDT documented as of this encounter Miscellaneous Notes * Telephone Encounter - Elisabeth Patricia - 07/02/2022 8:41 AM EDT ----- Message from Colten Parra DO sent at 07/01/2022 10:18 AM EDT ----- There are 2 different reports on 2 different patients linked to this patient. Please separate out and correct ----- Message ----- From: Elisabeth Patricia Sent: 06/25/2022 4:04 PM EDT To: Colten Parra DO * Telephone Encounter - Elisabeth Patricia - 07/02/2022 8:41 AM EDT Got it taken care of, thank you documented in this encounter Plan of Treatment Upcoming Encounters Date Type Department Care Team (Late st Contact Info) Description 11/18/2024 2:15 PM EDT Office Visit [facility] [address] [place] [address] [place] [address] Сергей Lucas MD [address] [place] [address] documented as of this encounter Goals Goal Patient Goal Type Associated Problems Recent Progress Patient-Stated? Author safe discharge ot home General Yes Simran Mallory RN Note: Evaluation of progress towards goal: safe transition to home with support of pt's and resumption with outpatient PT. documented as of this encounter Visit Diagnoses Not on filedocumented in this encounter Additional Health Concerns Assessment Noted Time PHQ-9 Depression Total Score: 0 06/09/19 23 9:55 AM EDT documented as of this encounter Care Teams Mechanic'S Assistant Relationship Specialty Start Date End Date Colten Parra DO [address] [facility] [place] [address] PCP - General Family Medicine 04/03/22 documented as of this encounter
--- OUTSIDE RECORDS SUMMARY | 2024-10-20 10:28 | XMS_ITS | Encounter Summary ---
Author Organization [employer] Address [facility][id number] [address] [place] [address] Care Team Providers Care Retail Salesworker Name Role Phone Colten Parra DO Primary Care Provider +1- [phone] Reason for Visit * Reason Comments Med Refill Encounter Details Date Type Department Care Team (Late Contact Info) Description 11/20/2021 Refill [facility] - Family Medicine [address] [place] [address] Colten Parra DO [address], [facility] [place] [id number] Migraine, unspecified, not intractable, without status migrainosus Social History Tobacco Use Types Packs/Day Years Used Date Smoking Tobacco: Every Day Smokeless Tobacco: Never Childcare Answer Date Recorded Childcare Unknown 08/13/2018 [...] have Coronavirus / COVID-19? No / Unsure 11/02/2021 7:30 AM EDT documented as of this encounter Plan of Treatment Upcoming Encounters Date Type Department Care Team (Late Contact Info) Description 11/18/2024 2:15 PM EDT Office Visit [facility] [address] [place] [address] [place] [address] Сергей Lucas MD [address] [place] [address] documented as of this encounter Visit Diagnoses Diagnosis Migraine, unspecified, not intractable, without status migrainosus documented in this encounter Care Teams Retail Salesworker Relationship Specialty Start Date End Date Colten Parra DO [address] [facility] [place] [address] PCP - General Family Medicine 04/03/22 documented as of this encounter
--- OUTSIDE RECORDS SUMMARY | 2024-10-20 10:28 | XMS_ITS | Encounter Summary ---
Author Organization [employer] Address [id number] [address] [place] [address] Care Team Providers Care Wharf Tender Name Role Phone Colten Parra Primary Care Provider +1- [phone] Encounter Details Date Type Department Care Team (Late st Contact Info) Description 11/15/2022 [facility] [address] [place] [address] Lizabeth Hernandez CMA Social History Tobacco Use Types Packs/Day [...] encounter Miscellaneous Notes * Telephone Encounter - Lizabeth Hernandez CMA - 11/15/2022 9:20 AM EDT This patient is scheduled for his Colonoscopy for Pos Cologard on Dec 07 at 1:00pm. He wants to do the [employer] and got a coupon for them. documented in this encounter Plan of Treatment Upcoming Encounters Date Type Department Care Team (Late st Contact Info) Description 11/18/2024 2:15 PM EDT Office Visit [facility] [address] [place] [address] [place] [address] Сергей Lucas MD [address] [place] [address] documented as of this encounter Goals Goal [...] Time PHQ-9 Depression Total Score: 0 06/09/19 9:55 AM EDT documented as of this encounter Care Teams Wharf Tender Relationship Specialty Start Date End Date Colten Parra DO [address] [facility] [place] [address] PCP - General Family Medicine 04/03/22 documented as of this encounter
--- OUTSIDE RECORDS SUMMARY | 2024-10-20 10:28 | XMS_ITS | Encounter Summary ---
Author Organization [employer] Address [id number] [address] [place] [address] Care Team Providers Care Energy And Sustainability Manager Name Role Phone BetteColten lawton Primary Care Provider +1- [phone] Encounter Details Date Type Department Care Team (Late Contact Info) Description 09/21/2022 Orders Only [facility] - Family Medicine [address] [place] [address] External, Scanning Provider Social History Tobacco Use [...] Office Visit [facility] [address] [place] [address] [place] [address] Сергей Lucas MD [address] [place], [place] [phone] documented as of this encounter Goals Goal Patient Goal Type Associated Problems Recent Progress Patient-Stated? Author safe discharge ot home General Yes Simran Mallory, RN Note: Evaluation of progress towards goal: safe transition to home with support of pt's and resumption with outpatient PT. documented as of this encounter Procedures Procedure Name Priority Date/Time Associated Diagnosis Comments XR EYE FOREIGN BODY LOCALIZATION Routine 09/21/2022 10:55 AM EDT documented in this encounter Results * X-ray eye foreign body localization (09/21/2022 10:55 AM EDT) Anatomical Region Laterality Modality Neuro, Head N/A Computed Radiogr aphy us Scanning Provider External IMG DIAGNOSTIC IMAGIN G ORDERABLES Final Result documented in this encounter Visit Diagnoses Not on filedocumented in this encounter Additional Health Concerns Assessment Noted Time PHQ-9 Depression Total Score: 0 06/09/19 23 9:55 AM EDT documented as of this encounter Care Teams Energy And Sustainability Manager Relationship Specialty Start Date End Date Colten Parra DO [address] [facility], [place] [address] PCP - General Family Medicine 04/03/22 documented as of this encounter
--- OUTSIDE RECORDS SUMMARY | 2024-10-20 10:28 | XMS_ITS | Clinical Summary ---
Author Organization [employer] tem Address [id number] [address] [place] [address] Care Team Providers Care Residential Finish Carpenter Name Role Phone ElisaColten figueroa Raymond CARR Primary Care Provider Allergies Active Allergy Reactions Criticality Noted Date Comments Amoxicillin Vomiting 08/21/2023 Fentanyl GI Disturbance 01/22/2024 Headaches, vomiting Isosorbide Mononitrate Headache High 01/06/2024 Prednisone Palpitations Low 08/21/2023 Medications lisinopril-hydr oCHLOROthiazide (PRINZIDE,ZESTO RETIC) 20-12.5 mg per tablet Take 1 tablet by mouth in the morning. 1 Active HYDROcodone-william taminophen (NORCO) 5-325 mg per tablet Take 1 tablet by mouth 2 (two) times a day as needed. 3 Active baclofen (LIORESAL) 10 mg tablet Take 1 tablet (10 mg total) by mouth 3 (three) times a day. 3 Active metoprolol tartrate (LOPRESSOR) 25 mg tablet TAKE 1 TABLET (25 MG) BY MOUTH IN THE MORNING AND AT BEDTIME 180 tablet 1 4 Active dextromethorpha n-guaiFENesin (ROBITUSSIN-DM) 10-100 mg/5 mL liquidIndicatio ns:Acute bronchitis, unspecified organism Take 5 mL by mouth every 12 (twelve) hours. 236 mL 4 Active albuterol (PROVENTIL,VENT ARISTEO) 2.5 mg /3 mL (0.083 %) nebulizer solutionIndicat ions:Acute bronchitis, unspecified organism Inhale 3 mL (2.5 mg total) by nebulization 4 (four) times a day. 75 mL 1 4 Active atorvastatin (LIPITOR) 80 mg tablet TAKE 1 TABLET (80 MG TOTAL) BY MOUTH IN THE MORNING 90 tablet 1 4 Active magnesium oxide (MAGOX) 400 mg tablet Take 1 tablet (400 mg total) by mouth in the morning and 1 tablet (400 mg total) before bedtime. 4 01/06/20 25 Active aspirin 81 mg Take 1 tablet (81 mg total) by mouth in the morning. Active amLODIPine (NORVASC) 5 mg tablet Take 1 tablet (5 mg total) by mouth in the morning. 4 01/06/20 25 Active finasteride (PROSCAR) 5 mg tabletIndicatio ns:Benign prostatic hyperplasia with urinary obstruction Take 1 tablet (5 mg total) by mouth in the morning. 90 tablet 3 5 Active tamsulosin (FLOMAX) 0.4 mg capsule Take 2 capsules (0.8 mg total) by mouth once daily. 180 capsule 3 5 Active divalproex (DEPAKOTE) 125 mg EC tabletIndicatio ns:Migraine, unspecified, not intractable, without status migrainosus Take 1 tablet (125 mg total) by mouth every morning. 90 tablet 5 Active Active Problems Problem Noted Date Diagnosed Date Enlarged prostate 08/21/2023 Lower urinary tract symptoms (LUTS) 07/09/2023 Benign prostatic hyperplasia with urinary obstru ction 07/04/2023 Overview (02/05/2024): Had DVT on affected leg of fracture 2022--not required to be on a long-term blood thinners. ==== 02/05/2024 ==== a maximal medical therapy he feels much improved. He is very happy with his current state. At this point will delay any type of surgical intervention. 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 Previous failed alpha-jaycob. Tentative arrangements were made for TURP given his travel schedule. We are here to discuss more Vanessa. Patient did have very temporarily after cysto improvement in his urination. Again speaks of the fact that repeat address the outlet he will have some benefit. Patient with his today. He is more inclined now to delay any type of surgical intervention. Which is totally fine will start him on a 5 alpha reductase inhibitor as well as restart alpha-jaycob. See him back in the next several months see if he derive any benefit otherwise TURP. ==== 07/04/2023 ==== 1 ppd x 44 yrs no gross hematuria. Elevated AUA symptom Score 23/5. Intermittent see weak urinary stream. Post urinary dribbling. Failed alpha-jaycob. Creatinine normal 0.96. Most recent PSA 0.59. Will get up-to-date PSA. Direct visualization CT scan March 2022 (-) for any stones or hydronephrosis. Plan: Renal bladder ultrasound. Cystoscopy [facility] bladder solution. CMG/flow Urine for culture. Assessment & Plan (02/05/2024 2:56 PM EST): Decision then may today to make his medications long-term. Refilled. Assessment & Plan (09/09/2023 12:49 PM EDT): Patient may titrate up on his tamsulosin to 2 tablets if he tolerates with no great effect with 1. Per patient request just see how the medicine works. Will see him back in about 5 months. Sooner p.r.n.. CAD (coronary atherosclerotic disease) 4 Current every day smoker 04/02/[address] elevation myocardial infarction (S ANGY) 04/02/2023 Hyperlipemia 04/02/2023 Chronic hip pain, left 12/14/2022 Situational depression 12/14/2022 Smoker 12/14/2022 Polyp of transverse colon 12/07/2022 Overview (12/07/2022): Multiple Positive colorectal cancer screening using Colog uard test 11/16/2022 Acute deep vein thrombosis ( DVT) of calf muscle vein of right lower extremity 06/21/2022 Bandemia 06/21/2022 Right leg pain 03/24/2022 Essential hypertension 03/24/2022 Cellulitis of right leg 03/24/2022 Acute upper respiratory infection 03/17/2018 06/08/2022 Nicotine dependence, cigarettes, uncomplicated 0 03/17/2018 06/08/2022 Encounters Date Type Department Care Team Description 09/07/2024 Refill [facility] - [facility] [address] [place] [address] Colten Parra, Migraine, unspecified, not intractable, without status migrainosus 08/17/2024 Travel from Last 3 Months Immunizations Immunization Administration Dates Next Due Influenza, Im Trivalent Preservative 11/03/2019 Influenza, Injectable, Quadrivalent 01/21/2019,1 03/04/2018 Influenza, Injectable, quadrivalent (PF) 017 Family History Medical History Relation Name Comments Heart failure Father at age 90 No Known Problems Half Brother maternal Scleroderma Mother in her 80' s No Known Problems Paternal Grandfather di ed at age 98 after slipping and falling and hitting head in bathroom Relation Name Status Comments Father Half Brother Alive Mother Paternal Grandfather Sister Alive Social History Tobacco Use Types Packs/Day Years Used Date Smoking Tobacco: Every Day Cigarettes 1 46.6 Started: 1978 Smokeless Tobacco: Never Tobacco Cessation:Ready to Q uit: Not Asked; Counseling Given: Not Answered Alcohol Use Standard Drinks/Week Comments Yes 0 [...] got money to buy more. Never True 02/05/2024 Within the past 12 months th e food we bought just didn't last and we didn't have money to get more. Never True 02/05/2024 Purpose - Life Answer Date Recorded Purpose and direction in life Unknown Sex and Gender Information Value Date Recorded Sex Assigned at Not on file Legal Sex Male 12:13 PM EDT Gender Identity Not on file Sexual Orientation Not on file Last Filed Vital Signs Vital Sign Reading Time Taken Comments Blood Pressure 126/68 02/05/2024 2:07 PM EST Pulse 70 02/05/2024 2:07 PM EST Temperature 37.1 C (98.7 F) 12/06/2023 9:38 AM EDT Respiratory Rate 18 12/06/2023 9:38 AM EDT Oxygen Saturation 98% 12/06/2023 9:38 AM EDT Inhaled Oxygen Concentration - - Weight 130.2 kg (287 lb) 02/05/2024 2:07 PM EST Height 188 cm (6' 2 ) 02/05/2024 2:07 PM EST Body Mass Index 36.85 02/05/2024 2:07 PM EST Plan of Treatment Upcoming Encounters Date Type Department Care Team (Late st Contact Info) Description 11/18/2024 2:15 PM EDT Office Visit [facility] [address] [place] [address] [place] [address] Сергей Lucas MD [address] [place] [address] Health Maintenance Due Date Last Done Comments Tobacco Counseling 1965 Adult BMI Follow Up Plan 07/09/1983 DTaP,Tdap and Td Vaccines (1 - Tdap) 1984 Zoster (Shingles) Vaccine (1 of 2) 07/09/2015 Depression Screening 08/04/2024 08/05/2023 Influenza Vaccine 11/02/2024 11/03/2019, , 01/02/2019, Additional history exists Adult BMI Screening 02/04/2025 02/05/2024 Tobacco Screening 02/04/2025 02/05/2024 Colon Cancer Screening 3 Yea r Cologuard 06/21/2025 06/21/2022 Goals Goal Patient Goal Type Associated Problems Recent Progress Patient-Stated? Author safe discharge ot home General Yes Simran Mallory, RN Note: Evaluation of progress towards goal: safe transition to home with support of pt's and resumption with outpatient PT. Medical Devices Not on file Procedures Procedure Name Priority Date/Time Associated Diagnosis Comments COMPREHENSIVE METABOLIC PANEL Routine 08/17/2024 10:54 AM EDT Essential (primary) hypertension COLOGUARD NON-[facility]EDICA Routine 06/21/2022 8:00 AM EDT Encounter for colorectal cancer screening from Last 3 Months or Most Recently Relevant to Health Maintenance Results * Comprehensive metabolic panel (08/17/2024 10:54 AM EDT) SODIUM 140 134 - 146 mmol/L 08/17/2024 6:28 PM EDT [facility] POTASSIUM 3.7 3.5 - 5.0 mmol/L 08/17/2024 6:28 PM EDT [facility] CHLORIDE 105 98 - 109 mmol/L 08/17/2024 6:28 PM EDT [facility] CARBON DIOXIDE 27 22 - 32 mmol/L 08/17/2024 6:28 PM EDT [facility] ANION GAP 8 5 - 15 mmol/L 08/17/2024 6:28 PM EDT [facility] BLOOD UREA NITROGEN 16 5 - 23 mg/dL 08/17/2024 6:28 PM EDT [facility] CREATININE 0.96 0.60 - 1.30 mg/dL 08/17/2024 6:28 PM EDT [facility] Comment:METHOD TRACEABLE TO IDMS STANDARD GLUCOSE 91 65 - 99 mg/dL 08/17/2024 6:28 PM EDT [facility] CALCIUM 9.5 8.5 - 10.5 mg/dL 08/17/2024 6:28 PM EDT [facility] TOTAL PROTEIN 7.1 6.0 - 8.0 g/dL 08/17/2024 6:28 PM EDT [facility] ALBUMIN 4.1 3.2 - 5.3 g/dL 08/17/2024 6:28 PM EDT [facility] ALKALINE PHOSPHATASE 99 39 - 130 U/L 08/17/2024 6:28 PM EDT [facility] AST 15 <=41 U/L 08/17/2024 6:28 PM EDT [facility] ALT 21 <=40 U/L 08/17/2024 6:28 PM EDT [facility] BILIRUBIN,TOTAL 0.3 0.3 - 1.2 mg/dL 08/17/2024 6:28 PM EDT [facility] EGFR Non-Race Dependent >90 >=60 ml/min/1.7 3sq.m 08/17/2024 6:28 PM EDT [facility] Comment: Reported eGFR is based on the CKD-EPI 2020 equation that does not use a race coefficient. Blood Venous blood / Unknown Venipuncture / Unknown 08/17/2024 10:54 AM EDT 08/17/2024 10:54 AM EDT Rachel Stacy MD LAB BLOOD ORDERABLES Final Resul t [facility] [address] [place] [address], * (ABNORMAL) Cologuard [facility] (06/21/2022 8:00 AM EDT) EXTERNAL COLOGUARD Positive( A) Negative 06/30/2022 3:36 AM EDT [facility] (CLIA #:[id number]) Comment: POSITIVE TEST RESULT. A positive Cologuard result should be followed with a colonoscopy or visual examination of the colon. The normal value (reference range) for this assay is negative. TEST DESCRIPTION: Composite algorithmic analysis of stool DNA-biomarkers with hemoglobin immunoassay. Quantitative values of individual biomarkers are not reportable and are not associated with individual biomarker result reference ranges. Cologuard is intended for colorectal cancer screening of adults of either sex, 45 years or older, who are at average-risk for colorectal cancer (CRC). Cologuard has been approved for use by the U.S. FDA. The performance of Cologuard was established in a cross sectional study of average-risk adults aged 50-84. Cologuard performance in patients ages 45 to 49 years was estimated by sub-group analysis of near-age groups. Colonoscopies performed for a positive result may find as the most clinically significant lesion: colorectal cancer [4.0%], advanced adenoma (including sessile serrated polyps greater than or equal to 1cm diameter) [20%] or non- advanced adenoma [31%]; or no colorectal neoplasia [45%]. These estimates are derived from a prospective cross-sectional screening study of 10,000 individuals at average risk for colorectal cancer who were screened with both Cologuard and colonoscopy. (Katey Sanders al, N Engl J Med 2014;370(14):0889-1596.) Cologuard may produce a false negative or false positive result (no colorectal cancer or precancerous polyp present at colonoscopy follow up). A negative Cologuard test result does not guarantee the absence of CRC or advanced adenoma (pre-cancer). The current Cologuard screening interval is every 3 years. ([place] Cancer Society and U.S. Multi-Society Task Force). Cologuard performance data in a 10,000 patient pivotal study using colonoscopy as the reference method can be accessed at the following location: www.[employer]/results. Additional description of the Cologuard test process, warnings and precautions can be found at www.[employer].com. Stool specimen (specimen) Rectum structure / Unknown 06/21/2022 8:00 AM EDT 06/22/2022 3:16 PM EDT Diandra Maddox BURLING AND JOINING SUPERVISOR-CONTENT ADMINISTRATOR LAB ORDERABLES Final Re sult [facility] (CLIA #:[id number]) [address] [place] [address], from Last 3 Months or Most Recently Relevant to Health Maintenance Insurance [employer] COMPENSATION - GENERIC PLAN Advance Directives * Full Code (Latest Code Status on File) Date Activated Date Inactivated Comments 03/24/2022 9:21 AM 03/26/2022 5:36 PM Care Teams Residential Finish Carpenter Relationship Specialty Start Date End Date Colten Parra DO [address] [facility], [place] [address] PCP - General Family Medicine 04/03/22
--- OUTSIDE RECORDS SUMMARY | 2024-10-20 10:28 | XMS_ITS | Encounter Summary ---
Author Organization [facility] tem Address [id number] [address] [place] [address] Care Team Providers Care Skoog Operator Name Role Phone ElisaColten figueroa Primary Care Provider [phone]- [phone] Encounter Details Date Type Department Care Team (Late st Contact Info) Description 06/14/2022 Orders Only [facility] - Family Medicine [address] [place] [address] Diandra Maddox, BEVERAGE STEWARD-PRICING CONSULTANT [address] [place] [address] Social History Tobacco Use Types Packs/Day Years [...] Office Visit [facility] [address] [place] [address] [place] [address] Сергей Lucas MD [address] [place] [address] documented as of this encounter Goals Goal [...] documented as of this encounter Care Teams Skoog Operator Relationship Specialty Start Date End Date Colten Parra DO [address] [facility] [address] PCP - General Family Medicine 04/03/22 documented as of this encounter
--- OUTSIDE RECORDS SUMMARY | 2024-10-20 10:28 | XMS_ITS | Encounter Summary ---
Author Organization [employer] tem Address [facility] [id number] [address] [place] [address] Care Team Providers Care Valve Inspector Name Role Phone BetteColten lawton Primary Care Provider Encounter Details Date Type Department Care Team ([facility] Contact Info) Description 05/17/2022 Abstract [facility] [address] [place] [address] Andre Hand MD [address] [place] [address] Social History Tobacco Use Types Packs/Day Years Used Date Smoking Tobacco: Every Day Smokeless Tobacco: Never Alcohol Use Standard Drinks/Week Comments Yes 0 (1 standard drink = 0.6 oz pur e alcohol) rarely Childcare Answer Date Recorded Childcare Unknown 08/13/2018 [...] or suspected to have Coronavirus / COVID-19? Unable to assess 05/10/2022 12:45 PM EST documented as of this encounter Plan of Treatment Upcoming Encounters Date Type Department Care Team ([facility] Contact Info) Description 11/18/2024 2:15 PM EDT Office Visit [facility] [address] [place] [address] [place] [address] Сергей Lucas MD [address] [place] [address] documented as of this encounter Goals Goal Patient Goal Type Associated Problems Recent Progress Patient-Stated? Author safe discharge ot home General Yes Simran Mallory, RN Note: Evaluation of progress towards goal: safe transition to home with support of pt's and resumption with outpatient PT. documented as of this encounter Procedures Procedure Name Priority Date/Time Associated Diagnosis Comments MULTIPLE LABS Routine 03/13/2022 CT KNEE RT W WO CONT Routine 03/07/2022 2:21 PM EST documented in this encounter Results * Multiple labs (03/13/2022) 03/13/2022 us Not In System Ref Prov IN IMAGING Final Res ult * CT knee right with and without contrast (03/07/2022 2:21 PM EST) Anatomical Region Laterality Modality MSK, Lower Extremities, Knee, Patella, MSK Cover a Right Computed Tomography us Not In System Ref Prov IMG CT ORDERABLES Final R esult documented in this encounter Visit Diagnoses Not on filedocumented in this encounter Care Teams Valve Inspector Relationship Specialty Start Date End Date Colten Parra DO [address] [place] [address] PCP - General Family Medicine 04/03/22 documented as of this encounter
--- OUTSIDE RECORDS SUMMARY | 2024-10-20 10:28 | XMS_ITS | Encounter Summary ---
Author Organization [employer] tem Address [id number] [address] [place] [address] Care Team Providers Care Forms Analysis Manager Name Role Phone Colten Parra Primary Care Provider [phone]- [phone] Encounter Details Date Type Department Care Team (Late st Contact Info) Description 07/23/2022 [facility] [address] [place] [address] Lizabeth Hernandez CMA Social History Tobacco Use [...] Telephone Encounter - Lizabeth Hernandez CMA - 07/23/2022 2:54 PM EDT I called this patient to see if he was ready to schedule his Colonoscopy since he had a POS Cologard. He said he is still having a lot of problems with his knee and he is not ready to schedule it yet. * Telephone Encounter - Colten Parra DO - 07/23/2022 2:54 PM EDT Output it off for a month but this is potentially serious/deadly. documented in this encounter Plan of Treatment Upcoming Encounters Date Type Department Care Team (Late st Contact Info) Description 11/18/2024 2:15 PM EDT Office Visit [facility] [address] [place] [address] [place] [address] Сергей Lucas MD [address] [place] [address] documented as of this encounter Goals Goal Patient Goal Type Associated Problems Recent Progress Patient-Stated? Author safe discharge ot home General Yes Simran Mallory, REX Note: Evaluation of progress towards goal: safe transition to home with support of pt's and resumption with outpatient PT. documented as of this encounter Visit Diagnoses Not on filedocumented in this encounter Additional Health Concerns Assessment Noted Time PHQ-9 Depression Total Score: 0 06/09/19 23 9:55 AM EDT documented as of this encounter Care Teams Forms Analysis Manager Relationship Specialty Start Date End Date Colten Parra DO [address] [facility] [place] [address] PCP - General Family Medicine 04/03/22 documented as of this encounter
--- OUTSIDE RECORDS SUMMARY | 2024-10-20 10:28 | XMS_ITS | Encounter Summary ---
Author Organization [employer] s tem Address [place][id number] [address] [place] [address] Care Team Providers Care Manager Delivery Name Role Phone ElisaColten figueroa Raymond CARR Primary Care Provider [phone]- [phone] Encounter Details Date Type Department Care Team (Late st Contact Info) Description 11/27/2022 Orders Only [facility] - Family Medicine [address] [place] [address] Nasir Richey [address] [place] [address] Positive colorectal cancer screening using Cologuard test Social History Tobacco Use Types Packs/Day Years [...] Visit [facility] [address] [address] Сергей Lucas MD [address] [place] [address] documented as of this encounter Goals Goal Patient Goal Type Associated Problems Recent Progress Patient-Stated? Author safe discharge ot home General Yes Simran Mallory, RN Note: Evaluation of progress towards goal: safe transition to home with support of pt's and resumption with outpatient PT. documented as of this encounter Visit Diagnoses Diagnosis Positive colorectal cancer screening using Cologuard test documented in this encounter Additional Health Concerns Assessment Noted Time PHQ-9 Depression Total Score: 0 06/09/19 23 9:55 AM EDT documented as of this encounter Care Teams Manager Delivery Relationship Specialty Start Date End Date Colten Parra DO [address] [facility] [place] [address] PCP - General Family Medicine 04/03/22 documented as of this encounter
--- OUTSIDE RECORDS SUMMARY | 2024-10-20 10:28 | XMS_ITS | Encounter Summary ---
Author Organization [employer] s tem Address [id number] [address] [place] [address] Care Team Providers Care Motor Inspection Mechanic Name Role Phone ElisaColten figueroa Raymond CARR Primary Care Provider [phone] Reason for Visit * Reason Comments Med Change Request Encounter Details Date Type Department Care Team (Late Contact Info) Description 11/27/2022 Refill [facility] - Family Medicine [address] [place] [address] Nasir Richey [address] [place] [address] Positive colorectal cancer screening using Cologuard test [...] Visit [facility] [address] [place] [address] Сергей Lucas MD [address] [place] [address] documented as of this encounter [...] documented as of this encounter Care Teams Motor Inspection Mechanic Relationship Specialty Start Date End Date Colten Parra DO [address] [facility] [place] [address] PCP - General Family Medicine 04/03/22 documented as of this encounter
--- OUTSIDE RECORDS SUMMARY | 2024-10-20 10:28 | XMS_ITS | Encounter Summary ---
Author Organization [facility] s tem Address [id number] [address] [place] [address] Care Team Providers Care Doubler Operator Name Role Phone Colten Parra Primary Care Provider +1 [phone] Encounter Details Date Type Department Care Team (Late st Contact Info) Description 11/27/2022 [facility] [address] [place] [address] Lizabeth Hernandez CMA Social History Tobacco Use [...] Telephone Encounter - Lizabeth Hernandez CMA - 11/27/2022 10:21 AM EDT Patient called because his insurance is giving Drug Carney an issue about the [employer]. He wanted to know if you would call them in to [facility] and he will pay the $50.00. He does not want to drink the liquid. documented in this encounter Plan of Treatment Upcoming Encounters Date Type Department Care Team (Late st Contact Info) Description 11/18/2024 2:15 PM EDT Office Visit [facility] [address] [place] [address] [place] [address] Сергей Lucas MD [address] [place] [address] documented as of this encounter Goals Goal [...] documented as of this encounter Care Teams Doubler Operator Relationship Specialty Start Date End Date Colten Parra DO [address] [facility] [place] [address] PCP - General Family Medicine 04/03/22 documented as of this encounter
--- OUTSIDE RECORDS SUMMARY | 2024-10-20 10:28 | XMS_ITS | Encounter Summary ---
Author Organization [employer] Address [id number] [address] [place] [address] Care Team Providers Care Bumper Machine Operator Name Role Phone Colten Parra DO Primary Care Provider [phone]- [phone] Reason for Visit * Reason Comments Med Refill Encounter Details Date Type Department Care Team (Late st Contact Info) Description 05/14/2022 Refill [facility] Internal [facility] - Family Medicine [address] [place] [address] Colten Parra DO [address], [facility] [place] [id number] Migraine, unspecified, not intractable, without status migrainosus [...] PM EST documented as of this encounter Miscellaneous Notes * Telephone Encounter - Colten Parra DO - 05/14/2022 12:47 PM EDT Rx sent in. Pt overdue for appt. Can make it a wellness with FARM EQUIPMENT ENGINE MECHANIC * Telephone Encounter - Elisabeth Patricia - 05/14/2022 12:47 PM EDT Scheduled documented in this encounter Plan of Treatment Upcoming Encounters Date Type Department Care Team (Late st Contact Info) Description 11/18/2024 2:15 PM EDT Office Visit [facility] [address] [place] [phone] Сергей Lucas MD [address] [place] [address] documented as of this encounter Goals Goal [...] migrainosus documented in this encounter Care Teams Bumper Machine Operator Relationship Specialty Start Date End Date Colten Parra DO [address] [place] [address] PCP - General Family Medicine 04/03/22 documented as of this encounter
--- OUTSIDE RECORDS SUMMARY | 2024-10-20 10:28 | XMS_ITS | Encounter Summary ---
Author Organization [employer] Address [facility] [id number] [address] [place] [address] Care Team Providers Care Printed Circuit Designer Name Role Phone ElisaColten figueroa Raymond CARR Primary Care Provider [phone]- [phone] Encounter Details Date Type Department Care Team (Late Contact Info) Description 11/16/2022 Orders Only [facility] - Family Medicine [address] [place] [address] Nasir Richey [address] [place] [address] Positive colorectal cancer screening using Cologuard test (Primary Dx) Social History Tobacco Use Types Packs/Day Years [...] Visit [facility] [address] [place] [place] [phone] Сергей Lucas MD [address] [place], [place] [phone] documented as of this encounter Goals Goal Patient Goal Type Associated Problems Recent Progress Patient-Stated? Author safe discharge ot home General Yes Simran Mallory, RN Note: Evaluation of progress towards goal: safe transition to home with support of pt's and resumption with outpatient PT. documented as of this encounter Visit Diagnoses Diagnosis Positive colorectal cancer screening using Cologuard test- Primary documented in this encounter Additional Health Concerns Assessment Noted Time PHQ-9 Depression Total Score: 0 06/09/19 23 9:55 AM EDT documented as of this encounter Care Teams Printed Circuit Designer Relationship Specialty Start Date End Date Colten Parra DO [address], [facility] [address] PCP - General Family Medicine 04/03/22 documented as of this encounter
--- OUTSIDE RECORDS SUMMARY | 2024-10-20 10:28 | XMS_ITS | Encounter Summary ---
Author Organization [employer] Address [facility] [id number] [address] [place] [address] Care Team Providers Care Mortgage Processing Clerk Name Role Phone BetteColten lawton Primary Care Provider [phone]- [phone] Encounter Details Date Type Department Care Team (Late Contact Info) Description 09/25/2022 Orders Only [facility] - Family Medicine [address] [place] [address] External, Scanning Provider Social History Tobacco Use [...] Office Visit [facility] [address] [place] [address] [place] [address] [place] [phone] Сергей Lucas MD [address] [place], [place] [phone] documented as of this encounter Goals Goal Patient Goal Type Associated Problems Recent Progress Patient-Stated? Author safe discharge ot home General Yes Simran Mallory, RN Note: Evaluation of progress towards goal: safe transition to home with support of pt's and resumption with outpatient PT. documented as of this encounter Procedures Procedure Name Priority Date/Time Associated Diagnosis Comments MR HIP LT WO CONT Routine 09/25/2022 7:1 1 AM EDT documented in this encounter Results * MR hip left without contrast (09/25/2022 7:11 AM EDT) Anatomical Region Laterality Modality MSK, Hip, Lower Extremities, Acetabulum, MSK Cov era Left Magnetic Resonance us Scanning Provider External IMG MRI ORDERABLES Fi nal Result documented in this encounter Visit Diagnoses Not on filedocumented in this encounter Additional Health Concerns Assessment Noted Time PHQ-9 Depression Total Score: 0 06/09/19 23 9:55 AM EDT documented as of this encounter Care Teams Mortgage Processing Clerk Relationship Specialty Start Date End Date Colten Parra DO [address] [place] [address] PCP - General Family Medicine 04/03/22 documented as of this encounter
--- OUTSIDE RECORDS SUMMARY | 2024-10-20 10:28 | XMS_ITS | Encounter Summary ---
Author Organization [facility] Address [facility] [id number] [address] [place] [address] Care Team Providers Care Technical Applications Specialist Name Role Phone Colten Parra DO Primary Care Provider [phone]- [phone] Encounter Details Date Type Department Care Team (Late st Contact Info) Description 11/13/2022 Telephone [facility] Internal Medicine - Family Medicine [address] [place] [phone] Hollie Jin CMA Social History Tobacco Use Types Packs/Day [...] encounter Miscellaneous Notes * Telephone Encounter - Hollie Jin CMA - 11/13/2022 8:02 AM EDT Images from the original note were not included. sent in Spark Authorshart: [facility]ckenna [facility] (supporting Colten Parra DO)9 hours ago (10:08 PM) Abdon Dhaliwal Been trying all day to contact office with no luck. Leif would like to see if you can set him up for colonoscopy. He had did home test and they said he needed to have the other done. You can contact him at [phone] or message me back. Thank you * Telephone Encounter - Colten Parra DO - 11/13/2022 8:02 AM EDT Okay put an order in for Dr. Richardson has to do. Thanks * Telephone Encounter - Lizabeth Hernandez CMA - 11/13/2022 8:02 AM EDT Got this scheduled for Dec 07 at 1:00pm documented in this encounter Plan of Treatment Upcoming Encounters Date Type Department Care Team (Late st Contact Info) Description 11/18/2024 2:15 PM EDT Office Visit [facility] [address] [place] [address] [place] [address] Сергей Lucas MD [address] [place] [address] documented as of this encounter Goals Goal [...] documented as of this encounter Care Teams Technical Applications Specialist Relationship Specialty Start Date End Date Colten Parra DO [address] [facility] [address] PCP - General Family Medicine 04/03/22 documented as of this encounter
--- OUTSIDE RECORDS SUMMARY | 2024-10-20 10:29 | XMS_ITS | Encounter Summary ---
Author Organization [facility] Address [address] [place] [address] Care Team Providers Care Electron Beam Photo Mask Maker Name Role Phone Unavailable Primary Care Provider Unavailabl e Source Comments In the event this information is protected by the Federal Confidentiality of Alcohol and Drug AbusePatient Records regulations: The Federal rules restrict any use of the information to criminally investigate or prosecute any alcohol or drug abuse patient.[facility] Encounter Details Date Type Department Care Team (Late st Contact Info) Description 06/07/2021 Get Medical Advice [facility] [address] [place] [address] Ronny Interiano MD [address] [place] [address] Neck surgery Social History Tobacco Use Types Packs/Day Years Used Date Smoking Tobacco: Every Day Smokeless Tobacco: Never Alcohol Use Standard Drinks/Week Comments Not Currently 0 (1 standard drink = 0.6 oz pur e alcohol) PHQ-2 Answer Date Recorded PHQ-2 score 1 06/04/2021 Sex and Gender Information Value Date Recorded Sex Assigned at Male 04/17/2021 10:20 AM EST Legal Sex Male 11:49 AM EST Gender Identity Male 04/17/2021 10:20 AM EST Sexual Orientation Straight 04/17/2021 10 :20 AM EST documented as of this encounter Plan of Treatment Not on file documented as of this encounter Visit Diagnoses Not on filedocumented in this encounter
--- OUTSIDE RECORDS SUMMARY | 2024-10-20 10:29 | XMS_ITS | Continuity of Care Document ---
Author Organization [facility] Address [address] [place] [address] Phone Care Team Providers Care Ship Runner Name Role Phone Colten Parra DO Primary Care Provider Encounters Date Type Department Care Team Description 08/21/[address] [address] Vanessa Ambriz LPN Error (VOID this visit) 08/21/2024 Travel 08/21/2024 9:45 AM EDT Office Visit [address] [address] Jean Claude Stacy MD Atherosclerosis of k[place] coronary artery of [place] heart without angina pectoris; Medication course changed; Primary hypertension; Mixed hyperlipidemia; Palpitations; Current every day smoker; Sleep apnea with use of continuous positive airway pressure (CPAP); BMI 35.0-35.9,adult 08/17/2024 Scanned Document [facility] [address] [place] [address] Scanning, Generic Provider 03/24/[address] [address] Vanessa Ambriz LPN Primary hypertension; Mixed hyperlipidemia; Shortness of breath; Palpitations 03/16/[address] [address] Jean Claude Stacy MD Primary hypertension 03/08/2024 [facility]ill [facility] [address] [place] [address] [address] [place] [phone] Jean Claude Stacy MD Primary hypertension; Palpitations 02/21/2024 Travel 02/21/2024 1:15 PM EST Office Visit [address] [place] [address] Jean Claude Stacy MD Shortness of breath; Encounter to discuss test results; History of PTCA; Mixed hyperlipidemia; Primary hypertension; Current every day smoker; BMI 37.0-37.9, adult; Medication course changed; Hypertension, unspecified type; Atherosclerosis of [place] coronary artery of [place] heart without angina pectoris; Other hyperlipidemia; Sleep apnea with use of continuous positive airway pressure (CPAP); History of ST elevation myocardial infarction (STEMI); BMI 35.0-35.9,adult 01/09/2024 Scanned Document [facility] [address] [place] [phone] Scanning, Generic Provider 01/09/2024 Orders Only [facility] [address] [place] [address] Leonid Morrissey DO 01/07/2024 Telephone [facility] [address] [facility] [address] [place] [phone] Jean Claude Stacy MD 01/06/2024 Travel 01/06/2024 3:15 PM EST Office Visit [address] [address] Jean Claude Stacy MD Coronary artery disease involving kipnuk coronary artery of [place] heart with unstable angina pectoris (Primary Dx); Encounter to discuss test results; Shortness of breath; History of PTCA; History of ST elevation myocardial infarction (STEMI); Primary hypertension; Other hyperlipidemia; Palpitations; Acute cough; Sleep apnea with use of continuous positive airway pressure (CPAP); BMI 37.0-37.9, adult; Current every day smoker; Fatigue, unspecified type; Medication course changed; Chest pain, unspecified type; Abnormal nuclear stress test 12/24/2023 Travel 12/24/2023 3:00 PM EDT Ancillary Procedure [facility] Medical [facility] [address] [facility] [address] [place] [address] Hypertension, unspecified type; Atherosclerosis of [place] coronary artery of [place] heart without angina pectoris; Current every day smoker; Other hyperlipidemia; Palpitations; Unstable angina pectoris (Multi); Sleep apnea with use of continuous positive airway pressure (CPAP); History of ST elevation myocardial infarction (STEMI); History of PTCA; Shortness of breath; Acute cough; BMI 35.0-35.9,adult 12/24/2023 2:30 PM EDT Ancillary Procedure [facility] Building [address] [address] Hypertension, unspecified type; Atherosclerosis of [place] coronary artery of [place] heart without angina pectoris; Current every day smoker; Other hyperlipidemia; Palpitations; Unstable angina pectoris (Multi); Sleep apnea with use of continuous positive airway pressure (CPAP); History of ST elevation myocardial infarction (STEMI); History of PTCA; Shortness of breath; Acute cough; BMI 35.0-35.9,adult; Chest pain, unspecified 12/24/2023 2:00 PM EDT Ancillary Procedure [facility] Office Building [address] [address] 12/24/2023 1:30 PM EDT Ancillary Procedure [facility] [address] [address] 12/24/2023 1:00 PM EDT Ancillary Procedure [facility] [address] [address] Primary hypertension (Primary Dx); Atherosclerosis of [place] coronary artery of [place] heart with stable angina pectoris; Current every day smoker 12/24/2023 12:30 PM EDT Ancillary Procedure [facility] [address] [address] 12/24/2023 12:00 PM EDT Ancillary Procedure [facility] [address] [address] Hypertension, unspecified type; Atherosclerosis of [place] coronary artery of [place] heart without angina pectoris; Current every day smoker; Other hyperlipidemia; Palpitations; Unstable angina pectoris (Multi); Sleep apnea with use of continuous positive airway pressure (CPAP); History of ST elevation myocardial infarction (STEMI); History of PTCA; Shortness of breath; Acute cough; BMI 35.0-35.9,adult 12/13/2023 Travel 12/13/2023 11:30 AM EDT Office Visit [facility] [address] [phone] Jose Cuevas MD Hypertension, unspecified type; Atherosclerosis of [place] coronary artery of [place] heart without angina pectoris; Current every day smoker; Other hyperlipidemia; Palpitations; Unstable angina pectoris (Multi); Sleep apnea with use of continuous positive airway pressure (CPAP); History of ST elevation myocardial infarction (STEMI); History of PTCA; Shortness of breath; Acute cough; BMI 35.0-35.9,adult 12/11/[address] [phone] Vanessa Ambriz LPN sooner OV 08/28/2023 Travel 08/28/2023 2:00 PM EDT Office Visit [address] [phone] Leonid Figueredo MD Atherosclerosis of [place] coronary artery of [place] heart without angina pectoris (Primary Dx); History of PTCA; Mixed hyperlipidemia; Primary hypertension; Current every day smoker; BMI 35.0-35.9,adult 04/02/[address] [phone] Sakshi Park MD 04/01/[address] [address] Leonid Figueredo MD Primary hypertension 11/26/2022 [facility] [address] Birdie Smith, SHIFT SUPERINTENDENT-RETAIL ANALYTICS MANAGER 03/08/2022 Legacy Encounter [facility] [address] [place] [address] Conversion, Touchworks 01/08/2022 Legacy Encounter [facility] [address] [place] [address] Conversion, Touchworks 10/19/2021 Legacy Encounter [facility] [address] [place] [address] Leonid Figueredo MD 10/19/2021 [facility] Encounter [facility] [address] Leonid Figueredo MD 08/28/2021 Legacy Encounter [facility] [address] [place] [address] Conversion, Touchworks 08/24/2021 Legacy Encounter [facility] [address] [place] [address] Conversion, Touchworks 08/23/2021 Legacy Encounter [facility] [address] [place] [address] Leonid Figueredo MD 06/13/2021 Legacy Encounter [facility] [address] [place] [address] Conversion, Touchworks 05/31/2021 Scanned Document [facility] [address] [place] [address] Conversion, Onbase 05/26/2021 Legacy Encounter [facility] [address] [place] [address] Leonid Figueredo MD 05/26/2021 [facility] Encounter [facility] [address] Leonid Figueredo MD 12/27/2020 Legacy Encounter [facility] [address] [place] [address] Kalie Lebron, SHIFT SUPERINTENDENT-RETAIL ANALYTICS MANAGER 12/27/2020 [facility] Encounter [facility] [address] Jean Claude Stacy MD 12/23/2020 [facility] Encounter [facility] [address] Jean Claude Stacy MD Atherosclerotic heart disease of k[place] coronary artery without angina pectoris 11/30/2020 Scanned Document [facility] [address] [place] [address] Conversion, Onbase 11/29/2020 Scanned Document [facility] [address] [place] [address] Conversion, Onbase 11/21/2020 Scanned Document [facility] [address] [place] [address] Conversion, Onbase 11/20/2020 Scanned Document [facility] [address] [place] [address] Conversion, Onbase 11/18/2020 7:17 PM EDT - 11/20/2020 4:00 PM EDT Hospital Encounter [facility] [address] [address] MD ST elevation (STEMI) myocardial infarction involving other coronary artery of inferior wall (Multi) (Primary Dx) Discharge Disposition: Home 11/19/2020 Legacy Encounter [facility] [address] [place] [address] Jerry Bronson MD 11/19/2020 Scanned Document [facility] [address] [place] [address] Conversion, Onbase 11/18/2020 Scanned Document [facility] [address] [place] [address] Conversion, Onbase 11/18/2020 Scanned Document [facility] [address] [place] [address] Conversion, Onbase 11/18/2020 Legacy Encounter [facility] [address] [place] [address] Jerry Bronson MD 11/18/2020 Legacy Encounter [facility] [address] [place] [address] Jean Claude Stacy MD 11/18/2020 Legacy Encounter [facility] [address] [place] [address] Leia Stearns, SHIFT SUPERINTENDENT-RETAIL ANALYTICS MANAGER 11/18/2020 Scanned Document [facility] [address] [place] [address] Conversion, Onbase 11/18/2020 Scanned Document [facility] [address] [place] [address] Conversion, Onbase 11/18/2020 Scanned Document [facility] [address] [place] [address] Conversion, Onbase 11/18/2020 Scanned Document [facility] [address] [place] [address] Conversion, Onbase 11/18/2020 Legacy Encounter [facility] [address] [place] [address] Jerry Bronson MD 11/18/2020 Legacy Encounter [facility] [address] [place] [address] Conversion, Syngo Allergies Active Allergy Reactions Criticality Noted Date Comments Amoxicillin Nausea/vomiting 08/21/2023 Prednisone Palpitations Low 08/21/2023 Isosorbide Mononitrate Headache High 01/06/2024 Medications baclofen (Lioresal) 10 mg tablet Take 3 tablets (30 mg) by mouth once daily as needed for muscle spasms. 3 Active divalproex (Depakote) 125 mg EC tablet Take 1 tablet (125 mg) by mouth once daily. 3 Active HYDROcodone-acetami nophen ([place]) 5-325 mg tablet Take 1 tablet by mouth 2 times a day as needed. 4 Active tamsulosin (Flomax) 0.4 mg 24 hr capsule Take 1 capsule (0.4 mg) by mouth once daily. 4 Active finasteride (Proscar) 5 mg tablet Take 1 tablet (5 mg) by mouth once daily. 4 Active nitroglycerin (Nitrostat) 0.4 mg SL tabletIndications:H ypertension, unspecified type,Atherosclerosi s of [place] coronary artery of [place] heart without angina pectoris,Current every day smoker,Other hyperlipidemia,Palp itations,Unstable angina pectoris (Multi),Sleep apnea with use of continuous positive airway pressure (CPAP),History of ST elevation myocardial infarction (STEMI),History of PTCA,Shortness of breath,Acute cough,BMI 35.0-35.9,adult Place 1 tablet (0.4 mg) under the tongue every 5 minutes if needed for chest pain. 30 tablet 1 4 Active aspirin 81 mg EC tabletIndications:H ypertension, unspecified type,Atherosclerosi s of [place] coronary artery of [place] heart without angina pectoris,Current every day smoker,Other hyperlipidemia,Palp itations,Unstable angina pectoris (Multi),Sleep apnea with use of continuous positive airway pressure (CPAP),History of ST elevation myocardial infarction (STEMI),History of PTCA,Shortness of breath,Acute cough,BMI 35.0-35.9,adult Take 1 tablet (81 mg) by mouth once daily. 90 tablet 3 4 12/13/19 25 Active magnesium oxide (Mag-Ox) 400 mg (241.3 mg magnesium) tabletIndications:P alpitations Take 1 tablet (400 mg) by mouth 2 times a day. 180 tablet 4 01/06/20 25 Active cyclobenzaprine (Flexeril) 10 mg tablet Take 1 tablet (10 mg) by mouth 3 times a day. 5 Active zonisamide (Zonegran) 50 mg capsule Take 3 capsules (150 mg) by mouth 2 times a day. 5 Active spironolactone (Aldactone) 25 mg tabletIndications:P rimary hypertension Take 1 tablet (25 mg) by mouth once daily. 30 tablet 11 09/23/2024 3:32 PM EDT 5 08/22/19 26 Active lisinopril 20 mg tabletIndications:P rimary hypertension Take 1 tablet (20 mg) by mouth once daily. 90 tablet 3 5 08/22/19 26 Active atorvastatin (Lipitor) 80 mg tabletIndications:M ixed hyperlipidemia Take 1 tablet (80 mg) by mouth once daily. 90 tablet 3 5 08/22/19 26 Active metoprolol tartrate (Lopressor) 50 mg tabletIndications:P rimary hypertension,Palpit ations Take 1 tablet by mouth 2 times a day. 180 tablet 3 5 08/22/19 26 Active lisinopriL-hydrochl orothiazide 20-12.5 mg tabletIndications:P rimary hypertension Take 1 tablet by mouth once daily. 90 tablet 2 5 08/22/19 26 Active Active Problems Problem Noted Date Diagnosed Date Encounter to discuss test results 01/06/2024 Fatigue 01/06/2024 Medication course changed 01/06/2024 Palpitations 12/13/2023 Chest pain 12/13/2023 Sleep apnea with use of cont inuous positive airway pressure (CPAP) 12/13/2023 Shortness of breath 12/13/2023 Cough 12/13/2023 BMI 35.0-35.9,adult 08/28/2023 CAD (coronary atherosclerotic disease) History of PTCA 04/02/[address] elevation myocardial infarction (S ANGY) 04/02/2023 Hyperlipemia 04/02/2023 Hypertension 04/02/2023 Current every day smoker 04/02/2023 Immunizations Immunization Administration Dates Next Due Influenza, injectable, quadrivalent 01/21/2019,1 03/04/2018 Family History Medical History Relation Name Comments Angina Father COPD Father Coronary artery disease Father Heart disease Father pacemaker Father No Known Problems Mother Relation Name Status Comments Father Mother Social History Smoking Status as of 10/20/2024 Tobacco Use Types Packs/Day Years Used Date Smoking Tobacco: Never Assessed Sex and Gender Information Value Date Recorded Sex Assigned at Male 12/11/2023 1:53 PM EDT Legal Sex Male 9:05 AM EST Gender Identity Male 12/11/2023 1:53 PM EDT Sexual Orientation Straight 12/11/2023 1: 53 PM EDT Last Filed Vital Signs Vital Sign Reading Time Taken Comments Blood Pressure 120/64 08/21/2024 9:49 AM EDT Pulse 68 08/21/2024 9:49 AM EDT Temperature - - Respiratory Rate - - Oxygen Saturation - - Inhaled Oxygen Concentration - - Weight 127 kg (280 lb) 08/21/2024 9:49 AM EDT Height 188 cm (6' 2 ) 08/21/2024 9:49 AM EDT Body Mass Index 35.95 08/21/2024 9:49 AM EDT Plan of Treatment Upcoming Encounters Date Type Department Care Team (Late st Contact Info) Description 02/22/2025 11:00 AM EST [facility] [address] [facility] [address] [place] [address] Jean Claude Stacy MD [address] [facility] [address] [place] [address] Procedures Procedure Name Priority Date/Time Associated Diagnosis Comments OUTSIDE LAB SCAN 08/17/2024 ELECTROCARDIOGRAM 12 LEAD 2023 12:56 PM EST [facility] COAGULATION PROFILE Routine 01/09/2024 12:40 PM EST [facility] B-TYPE NATRIURETIC PEPTIDE Routine 01/09/2024 12:40 PM EST [facility] LIPID PANEL Routine 12:40 PM EST [facility] CREATININE Routine 01/09/2024 12:40 PM EST [facility] BLOOD UREA NITROGEN Routine 01/09/2024 12:40 PM EST [facility] ELECTROLYTES Routine 01/09/20 12:40 PM EST [facility] COMPLETE BLOOD COUNT AUTO DIFF Routine 01/09/2024 12:40 PM EST TRANSTHORACIC ECHO (TTE) COMPLETE WITH CONTRAST Routine 12/24/2023 3:31 PM EDT Hypertension, unspecified type Atherosclerosis of [place] coronary artery of [place] heart without angina pectoris Current every day smoker Other hyperlipidemia Palpitations Unstable angina pectoris (Multi) Sleep apnea with use of continuous positive airway pressure (CPAP) History of ST elevation myocardial infarction (STEMI) History of PTCA Shortness of breath Acute cough BMI 35.0-35.9,adult Chest pain, unspecified 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 - MISSILE MECHANIC, PHYSICIAN READ Routine 12/24/2023 3:08 PM EDT Hypertension, unspecified type Atherosclerosis of [place] coronary artery of [place] heart without angina pectoris Current every day smoker Other hyperlipidemia Palpitations Unstable angina pectoris (Multi) Sleep apnea with use of continuous positive airway pressure (CPAP) History of ST elevation myocardial infarction (STEMI) History of PTCA Shortness of breath Acute cough BMI 35.0-35.9,adult STRESS TEST, REGADENOS[place] W MYOCARDIAL PERFUSION SPECT (MULTI STUDY) Routine 12/24/2023 2:20 PM EDT Hypertension, unspecified type Atherosclerosis of [place] coronary artery of [place] heart without angina pectoris Current every day smoker Other hyperlipidemia Palpitations Unstable angina pectoris (Multi) Sleep apnea with use of continuous positive airway pressure (CPAP) History of ST elevation myocardial infarction (STEMI) History of PTCA Shortness of breath Acute cough BMI 35.0-35.9,adult ECG 12-LEAD Routine 12/13/2023 11:30 AM EDT Hypertension, unspecified type Atherosclerosis of [place] coronary artery of [place] heart without angina pectoris Current every day smoker Other hyperlipidemia Palpitations Unstable angina pectoris (Multi) Sleep apnea with use of continuous positive airway pressure (CPAP) History of ST elevation myocardial infarction (STEMI) History of PTCA Shortness of breath Acute cough BMI 35.0-35.9,adult ECHOCARDIOGRAM 12/23/2020 ECHOCARDIOGRAM Routine 12/23/2020 CARDIAC STRESS TEST 12/23/2020 CARDIAC STRESS TEST Routine 12/23/2020 ELECTROCARDIOGRAM RHYTHM STRIP 11/29/2020 TROPONIN I DATA CONVERSION Routine 11/19/2020 9:03 PM EDT ELECTROCARDIOGRAM 12 LEAD Routine 2020 2:48 PM EDT HEPARIN ASSAY Routine 11/19/2020 2:38 PM EDT TROPONIN I DATA CONVERSION Routine 11/19/2020 1:00 PM EDT HEPARIN ASSAY Routine 11/19/2020 10:27 AM EDT CBC Routine 11/19/2020 5:23 AM EDT TROPONIN I DATA CONVERSION Routine 11/19/2020 5:23 AM EDT BASIC METABOLIC PANEL Routine 11/19/2020 5:23 AM EDT MAGNESIUM Routine 11/19/2020 5:23 AM EDT HEPARIN ASSAY Routine 11/19/2020 5:23 AM EDT TROPONIN I DATA CONVERSION Routine 11/19/2020 12:54 AM EDT PROTIME-INR Routine 11/19/2020 12:53 AM EDT APTT Routine 11/19/2020 12:53 AM EDT ELECTROCARDIOGRAM RHYTHM STRIP 11/19/2020 ELECTROCARDIOGRAM 12 LEAD Routine 2020 10:15 PM EDT ACTIVATED CLOTTING TIME LOW Routine 11/18/2020 7:41 PM EDT ACTIVATED CLOTTING TIME LOW Routine 11/18/2020 7:24 PM EDT XR CHEST 1 VIEW Routine 11/18/2020 7:19 PM EDT SARS-COV-2 PCR, SCREEN ASYMPTOMATIC Routine 11/18/2020 7:18 PM EDT COMPREHENSIVE METABOLIC PANEL Routine 11/18/2020 7:17 PM EDT B-TYPE NATRIURETIC PEPTIDE Routine 11/18/2020 7:17 PM EDT TROPONIN I DATA CONVERSION Routine 11/18/2020 7:17 PM EDT CBC Routine 11/18/2020 7:17 PM EDT ELECTROCARDIOGRAM 12 LEAD Routine 2020 7:00 PM EDT ADULT CATH Routine 11/18/2020 OUTSIDE IMAGING SCAN 11/18/2020 Results * OUTSIDE LAB SCAN (08/17/2024) Narrative 08/17/2024 Ordered by an unspecified provider. us Generic Provider Scanning OUTSIDE SCAN Final Result * Electrocardiogram (01/09/2024 12:56 PM EST) Only the most recent of4 resultswithin the time period is included. 01/09/2024 12:5 6 PM EST Narrative [facility] - 01/10/2024 11:17 AM EST [facility] Main [place] [address] [place] [address] Electrocardiograph Report Signed Patient: Ashok Doss MR#: [id number] : 1965 Acct:[id number] Age/Sex: 58 / M ADM Date: 01/09/24 Loc: Room: Type: [facility] Attending Dr: Arabella Morrissey DO Ordering Provider: Arabella Morrissey DO Date of Service: 01/09/2409/25/1255 ECG/ECG 12 lead ECG: left heart cath Copies to: Test Reason : Blood Pressure : */* mmHG Vent. Rate : 72 BPM Atrial Rate : 72 BPM P-R Int : 150 ms QRS Dur : 100 ms QT Int : 416 ms P-R-T Axes : 50 -3 33 degrees QTcB Int : 455 ms Normal sinus rhythm Incomplete right bundle branch block Borderline ECG No previous ECGs available Confirmed by [facility], JODIE ([id number]) on 01/10/2024 11:17:15 AM Referred By: Electronically Signed By: JODIE CASTANON MD FAC Transcribed By: MUS Signed By Jodie Castanon MD, FACC 01/10/24 1117 us Leonid Morrissey DO ECG ORDERAB[place] [address], [place] * (ABNORMAL) [facility] Complete Blood Count Auto Diff (01/09/2024 12:40 PM EST) [facility] White Blood Count 14.4(H) 4.1 - 10.5 10*3/uL [facility] Uncorrected WBC 14.4(H) 4.1 - 10.5 10*3/uL [facility] Red Blood Count 4.45 3.90 - 5.60 [facility] Hemoglobin 14.0 13.0 - 17.0 g/dL [facility] Hematocrit 40.9 38.8 - 50.0 % [facility] Mean Corpuscular Volume 92.0 83.5 - 101 fL [facility] Mean Corpuscular Hemoglobin 31.4 27.5 - 35.2 pg [facility] Mean Corpuscular HGB Conc 34.1 32.5 - 35.6 g/dL [facility] Red Cell Distribution Width 13.9 12.0 - 14.8 % [facility] Platelet Count 320 150 - 450 10*3/uL [facility] Mean Platelet Volume 7.0 6.6 - 10.1 fL [facility] Neutrophils % (Auto) 59.4 . % [facility] Lymphocytes % (Auto) 26.8 . % [facility] Monocytes % (Auto) 9.9 . % [facility] Eosinophils % (Auto) 2.7 . % [facility] Basophils % (Auto) 1.2 . % [facility] NRBC% 0.1 0 - 0.5 /100{WBC} [facility] Neutrophils # (Auto) 8.6(H) 1.8 - 7.7 10*3/uL [facility] Lymphocytes # (Auto) 3.9 1.00 - 4.8 10*3/uL [facility] Monocytes # (Auto) 1.4(H) 0.0 - 0.8 10*3/uL [facility] Eosinophils # (Auto) 0.4 0.0 - 0.45 10*3/uL [facility] Basophils # (Auto) 0.2 0.0 - 0.2 10*3/uL [facility] Comment:PERFORMED BY:[facility] [place], [place] [id number] MEDICAL DIRECTORJESUS RUBIO M.D. [facility] Lab/Micro- Blood specimen 01/09/2024 12:40 PM EST Leonid Ghanshyam DO LAB BLOOD ORDERABLES Final Result Performing Organization Address City/[facility]/ZIP Co de Phone Number [facility] [address] [place] [address], [facility] [address] [phone] * [facility] Blood Urea Nitrogen (01/09/2024 12:40 PM EST) [facility] Blood Urea Nitrogen 15 7 - 25 mg/dL [facility] Lab- Source, Unspecified 01/09/2024 12:40 PM EST Leonid [facility] LAB BLOOD ORDERABLES Final Result [facility] [address] [place] [address], [facility] [address] [place] [address] * (ABNORMAL) NON-[facility] HIE Lipid Panel (01/09/2024 12:40 PM EST) Pathologist [facility] NON-[facility] HIE Cholesterol 103(L) 140 - 200 mg/dL [facility] Comment:Chol less than 200 m g/dl low risk Chol 201-239 mg/dl borderline risk Chol 240 mg/dl and greater high risk NON-[facility] HIE HDL Cholesterol 36 23 - 92 mg/dL [facility] Comment:HDL CHOL ATP-III CLA SSIFICATION Cardiovascular Risk HDL > or equal to 60 mg/dL LOW HDL < 40 mg/dL HIGH NON-UH HIE Triglyceride w/Reflex 117 0 - 149 mg/dL [facility] Comment:TRIG ATP III CLASSIF ICATION TRIG less than 150 mg/dL Normal TRIG 150-199 mg/dL Borderline high TRIG 200-500 mg/dL High TRIG greater than 500 mg/dL Very high Standard traceable to the Center for Disease Conrtrol and Prevention (CDC) test method. NON-[facility] HIE LDL Cholesterol,Calcula kayla 44 0 - 100 mg/dL [facility] Comment:LDL ATP III CLASSIFI CATION LDL less than 100 mg/dL Optimal LDL 100-129 mg/dL Near or above optimal LDL 130-159 mg/dL Borderline high LDL 160-189 mg/dL High LDL greater than 189 mg/dL Very high NON-UH HIE VLDL CHOLESTEROL 23 mg/dL [facility] NON-UH HIE Chol/HDL Ratio 2.9 <5.0 [facility] Comment:PERFORMED BY:[facility] [facility]PITALCherylPAR[place], [place] [id number] MEDICAL DIRECTORJESUS RUBIO M.D. [facility] Lab- Source, Unspecified 01/09/2024 12:40 PM EST Leonid Morrissey DO LAB BLOOD ORDERABLES Final Result Performing Organization Address City/State/[facility] Co de Phone Number [facility] [address] [place] [address], [facility] [address] [place] [address] * NON-[facility] HIE Electrolytes (01/09/2024 12:40 PM EST) NON-[facility] HIE Sodium 140 136 - 145 mmol/L [facility] NON-UH HIE Potassium 4.0 3.5 - 5.1 mmol/L [facility] NON-[facility] HIE Chloride 105 98 - 107 mmol/L [facility] NON-[facility] HIE Carbon Dioxide 26.6 21.0 - 31.0 mmol/L [facility] NON-[facility] HIE Anion Gap 12.4 6.0 - 15.0 [facility] Lab- Source, Unspecified 01/09/2024 12:40 PM EST Leonid Vo Ghanshyam LAB BLOOD ORDERABLES Final Result Performing Organization Address [facility] Co de Phone Number [place] [phone], [facility] [address] [place] [phone] * NON-[facility] HIE Creatinine (01/09/2024 12:40 PM EST) NON-[facility] HIE Creatinine 0.88 0.70 - 1.30 mg/dL [facility] NON-UH HIE ESTIMATED GFR >60.0 [facility] NON-UH HIE Creatinine Clr Calc Pharmacy 132.16 [facility] Lab- Source, Unspecified 01/09/2024 12:40 PM EST Leonid Vo Ghanshyam LAB BLOOD ORDERABLES Final Result Performing Organization Address [facility] Co de Phone Number [facility] [address] [place] [phone], [facility] [address] [place] [phone] * NON-[facility] HIE Coagulation Profile (01/09/2024 12:40 PM EST) NON-[facility] HIE Prothrombin Time 11.8 9.0 - 12.9 s [facility] Comment:A hematocrit value g reater than 55% may lead to inaccurate results in coagulation testing. Patients having hematocrit values >55% require a special collection tube for coagulation studies. Please contact the laboratory at [phone] for redraw instructions. NON-[facility] HIE INR 1.0 [place] Comment:INR Therapeutic Rang e A) Pre- and Peroperative OAT started two weeks before surgery. NOT HIP SURGERY: 1.5 - 2.5 HIP SURGERY: 2 - 3 B) Primary and secondary prevention of venous THROMBOSIS: 2 - 3 C) Active venous thrombosis, pulmonary embolism and prevention of recurrent venous thrombosis: 2 - 3 D) Prevention of arterial thromboembolism including patients with mechanical heart valves: 3 - 4.5 NON-[facility] HIE Partial Thromboplastin Time 30.9 25.1 - 36.5 s [facility] Comment:A hematocrit value g reater than 55% may lead to inaccurate results in coagulation testing. Patients having hematocrit values >55% require a special collection tube for coagulation studies. Please contact the laboratory at [phone] for redraw instructions.PERFORMED BY:[place] [address] [place], [place] [id number] MEDICAL DIRECTORJESUS RUBIO M.D. [facility] Lab- Plasma specimen 01/09/2024 12:40 PM EST Leonid Morrissey DO LAB BLOOD ORDERABLES Final Result Performing Organization Address City/[facility]/ZIP Co de Phone Number [address] [place] [address], [place] [phone] * NON-[facility] HIE B-Type Natriuretic Peptide (01/09/2024 12:40 PM EST) [facility] NON-UH HIE B-Type Natriuretic Peptide 61.0 5 - 100 pg/mL [facility] Comment:PERFORMED BY:[place] [address] [place] [place], [place] [id number] MEDICAL DIRECTORJESUS RUBIO M.D. [facility] Lab- Source, Unspecified 01/09/2024 12:40 PM EST Jean Claude Stacy MD LAB BLOOD ORDERABLES Final Resul t Performing Organization Address City/[facility]/ZIP Co de Phone Number [facility] [address] [facility] [place] [place] [address], [facility] [address] [place] [phone] * TRANSTHORACIC ECHO (TTE) COMPLETE WITH CONTRAST (12/24/2023 3:31 PM EDT) AV mn grad 7.0 mmHg SYNGO AV pk poli 1.70 m/s SYNGO LV Biplane EF 53 % SYNGO LVOT diam 2.40 cm SYNGO MV E/A ratio 0.82 SYNGO MV avg E/e' ratio 11.10 SYNGO LV EF 65 % SYNGO RVSP 37.3 mmHg SYNGO LVIDd 5.05 cm SYNGO Aortic Valve Area by Continuity of Peak Velocity 2.93 cm2 SYNGO AV pk grad 11.6 mmHg SYNGO Aortic Valve Area by Continuity of VTI 3.34 cm2 SYNGO LV A4C EF 55.4 SYNGO 12/24/2023 2:22 PM EDT Narrative SYNGO - 12/26/2023 12:18 PM EDT [address], [address] [place] [address] TRANSTHORACIC ECHOCARDIOGRAM REPORT Patient Name: ASHOK Callahan Physician: [id number] Jose Cuevas MD, [facility] Study Date: 12/24/2023 Ordering Provider: [id number] JOSE CUEVAS MRN/PID: [id number] Fellow: Nurse: Ivonne Gonzalez RN Date of /Age: 5 1965 / 58 years Web Merchandiser: Latanya Yadav RDCS, RT(R), RDMS, RVT Gender: M Additional Staff: Height: 187.96 cm Admit Date: Weight: 129.73 kg Admission Status: Outpatient BSA / BMI: 2.53 m2 / 36.72 Department Location: [facility] Heart kg/m2 [place] Study Type: TRANSTHORACIC ECHO (TTE) COMPLETE Diagnosis/ICD: Chest pain, unspecified-R07.9; Palpitations-R00.2 Indication: Chest pain Palpitations CPT Codes: Echo Complete w Full Doppler-[id number] Patient History: Smoker: Current. Pertinent History: CAD, HTN, Hyperlipidemia and SOB. Study Detail: The following Echo studies were performed: 2D, M-Mode, Doppler and color flow. Image quality for this study is good. Optison used as a contrast agent for endocardial border definition. Total contrast used for this procedure was 0.5 mL via IV push. PHYSICIAN INTERPRETATION: Left Ventricle: Left ventricular ejection fraction is normal, by visual estimate at 65%. There are no regional wall motion abnormalities. The left ventricular cavity size is normal. There is mild concentric left ventricular hypertrophy. Spectral Doppler shows a normal pattern of left ventricular diastolic filling. Optison Utilized. Left Atrium: The left atrium is normal in size. Right Ventricle: The right ventricle is normal in size. There is normal right ventricular global systolic function. Right Atrium: The right atrium is normal in size. Aortic Valve: The aortic valve is trileaflet. The aortic valve dimensionless index is 0.74. There is no evidence of aortic valve regurgitation. The peak instantaneous gradient of the aortic valve is 11.6 mmHg. The mean gradient of the aortic valve is 7.0 mmHg. Mitral Valve: The mitral valve is normal in structure. There is no evidence of mitral valve regurgitation. Tricuspid Valve: The tricuspid valve is structurally normal. There is trace tricuspid regurgitation. Pulmonic Valve: The pulmonic valve is structurally normal. There is no indication of pulmonic valve regurgitation. Pericardium: No pericardial effusion noted. Aorta: The aortic root is normal. Additional Comments: No comparison study available. No significant valvular heart disease. Normal chamber sizes. CONCLUSIONS: 1. Left ventricular ejection fraction is normal, by visual estimate at 65%. 2. Optison Utilized. 3. Normal chamber sizes. 4. No significant valvular heart disease. 5. There is normal right ventricular global systolic function. 6. No comparison study available. QUANTITATIVE DATA SUMMARY: 2D MEASUREMENTS: Normal Ranges: Ao Root d: 2.80 cm (2.0-3.7cm) LAs: 2.90 cm (2.7-4.0cm) RVIDd: 4.14 cm (0.9-3.6cm) IVSd: 0.76 cm (0.6-1.1cm) LVPWd: 1.07 cm (0.6-1.1cm) LVIDd: 5.05 cm (3.9-5.9cm) LVIDs: 2.61 cm LV Mass Index: 69.5 g/m2 LV % FS 48.3 % AORTA MEASUREMENTS: Normal Ranges: Asc Ao, d: 2.50 cm (2.1-3.4cm) LV SYSTOLIC FUNCTION BY 2D PLANIMETRY (MOD): Normal Ranges: EF-A4C View: 55 % (>=55%) EF-A2C View: 50 % EF-Biplane: 53 % EF-Visual: 65 % LV EF Reported: 65 % LV DIASTOLIC FUNCTION: Normal Ranges: MV Peak E: 0.91 m/s (0.7-1.2 m/s) MV Peak A: 1.12 m/s (0.42-0.7 m/s) E/A Ratio: 0.82 (1.0-2.2) MV e' 0.083 m/s (>8.0) MV lateral e' 0.08 m/s MV medial e' 0.08 m/s E/e' Ratio: 11.02 (<8.0) PulmV Sys Poli: 69.00 cm/s PulmV Strauss Poli: 65.60 cm/s PulmV S/D Poli: 1.10 PulmV A Revs Poli: 34.30 cm/s PulmV A Revs Dur: 123.00 msec MITRAL VALVE: Normal Ranges: MV Vmax: 1.19 m/s (<=1.3m/s) MV peak P.7 mmHg (<5mmHg) MV mean P.0 mmHg (<48mmHg) MV DT: 194 msec (150-240msec) AORTIC VALVE: Normal Ranges: AoV Vmax: 1.70 m/s (<=1.7m/s) AoV Peak P.6 mmHg (<20mmHg) AoV Mean P.0 mmHg (1.7-11.5mmHg) LVOT Max Poli: 1.10 m/s (<=1.1m/s) AoV VTI: 39.90 cm (18-25cm) LVOT VTI: 29.50 cm LVOT Diameter: 2.40 cm (1.8-2.4cm) AoV Area, VTI: 3.34 cm2 (2.5-5.5cm2) AoV Area,Vmax: 2.93 cm2 (2.5-4.5cm2) AoV Dimensionless Index: 0.74 TRICUSPID VALVE/RVSP: Normal Ranges: Peak TR Velocity: 2.93 m/s RV Syst Pressure: 37 mmHg (< 30mmHg) PULMONIC VALVE: Normal Ranges: PV Max Poli: 1.0 m/s (0.6-0.9m/s) PV Max P.2 mmHg Pulmonary Veins: PulmV A Revs Dur: 123.00 msec PulmV A Revs Poli: 34.30 cm/s PulmV Strauss Poli: 65.60 cm/s PulmV S/D Poli: 1.10 PulmV Sys Poli: 69.00 cm/s [id number] Jose Cuevas MD, [facility] Electronically signed on 12/26/2023 at 12:18:27 PM Final Procedure Note Jose Cuevas MD - 12/26/2023 [place] [id number] [facility], [address] [place] [address] TRANSTHORACIC ECHOCARDIOGRAM REPORT Patient Name: ASHOK Callahan Physician: Viet Truong [facility] Study Date: 12/24/2023 Ordering Provider: Lincoln CUEVAS MRN/PID: [id number] Fellow: Nurse: Ivonne Coleman Date of /Age: 5 1965 / 58 years Web Merchandiser: Samir BAIGCS, RT(R),RDMS, RVT Gender: M Additional Staff: Height: 187.96 cm Admit Date: Weight: 129.73 kg Admission Status: Outpatient BSA / BMI: 2.53 m2 / 36.72 [facility] [place] Study Type: TRANSTHORACIC ECHO (TTE) COMPLETE Diagnosis/ICD: Chest pain, unspecified-R07.9; Palpitations-R00.2 Indication: Chest pain Palpitations CPT Codes: Echo Complete w Full Doppler-[id number] Patient History: Smoker: Current. Pertinent History: CAD, HTN, Hyperlipidemia and SOB. Study Detail: The following Echo studies were performed: 2D, M-Mode,Doppler and color flow. Image quality for this study is good. Optisonused as a contrast agent for endocardial border definition. Totalcontrast used for this procedure was 0.5 mL via IV push. PHYSICIAN INTERPRETATION: Left Ventricle: Left ventricular ejection fraction is normal, by visualestimate at 65%. There are no regional wall motion abnormalities. The leftventricular cavity size is normal. There is mild concentric leftventricular hypertrophy. Spectral Doppler shows a normal pattern of leftventricular diastolic filling. Optison Utilized. Left Atrium: The left atrium is normal in size. Right Ventricle: The right ventricle is normal in size. There is normalright ventricular global systolic function. Right Atrium: The right atrium is normal in size. Aortic Valve: The aortic valve is trileaflet. The aortic valvedimensionless index is 0.74. There is no evidence of aortic valveregurgitation. The peak instantaneous gradient of the aortic valve is 11.6mmHg. The mean gradient of the aortic valve is 7.0 mmHg. Mitral Valve: The mitral valve is normal in structure. There is noevidence of mitral valve regurgitation. Tricuspid Valve: The tricuspid valve is structurally normal. There istrace tricuspid regurgitation. Pulmonic Valve: The pulmonic valve is structurally normal. There is noindication of pulmonic valve regurgitation. Pericardium: No pericardial effusion noted. Aorta: The aortic root is normal. Additional Comments: No comparison study available. No significantvalvular heart disease. Normal chamber sizes. CONCLUSIONS: 1. Left ventricular ejection fraction is normal, by visual estimate at65%. 2. Optison Utilized. 3. Normal chamber sizes. 4. No significant valvular heart disease. 5. There is normal right ventricular global systolic function. 6. No comparison study available. QUANTITATIVE DATA SUMMARY: 2D MEASUREMENTS: Normal Ranges: Ao Root d: 2.80 cm (2.0-3.7cm) LAs: 2.90 cm (2.7-4.0cm) RVIDd: 4.14 cm (0.9-3.6cm) IVSd: 0.76 cm (0.6-1.1cm) LVPWd: 1.07 cm (0.6-1.1cm) LVIDd: 5.05 cm (3.9-5.9cm) LVIDs: 2.61 cm LV Mass Index: 69.5 g/m2 LV % FS 48.3 % AORTA MEASUREMENTS: Normal Ranges: Asc Ao, d: 2.50 cm (2.1-3.4cm) LV SYSTOLIC FUNCTION BY 2D PLANIMETRY (MOD): Normal Ranges: EF-A4C View: 55 % (>=55%) EF-A2C View: 50 % EF-Biplane: 53 % EF-Visual: 65 % LV EF Reported: 65 % LV DIASTOLIC FUNCTION: Normal Ranges: MV Peak E: 0.91 m/s (0.7-1.2 m/s) MV Peak A: 1.12 m/s (0.42-0.7 m/s) E/A Ratio: 0.82 (1.0-2.2) MV e' 0.083 m/s (>8.0) MV lateral e' 0.08 m/s MV medial e' 0.08 m/s E/e' Ratio: 11.02 (<8.0) PulmV Sys Poli: 69.00 cm/s PulmV Strauss Poli: 65.60 cm/s PulmV S/D Poli: 1.10 PulmV A Revs Poli: 34.30 cm/s PulmV A Revs Dur: 123.00 msec MITRAL VALVE: Normal Ranges: MV Vmax: 1.19 m/s (<=1.3m/s) MV peak P.7 mmHg (<5mmHg) MV mean P.0 mmHg (<48mmHg) MV DT: 194 msec (150-240msec) AORTIC VALVE: Normal Ranges: AoV Vmax: 1.70 m/s (<=1.7m/s) AoV Peak P.6 mmHg (<20mmHg) AoV Mean P.0 mmHg (1.7-11.5mmHg) LVOT Max Poli: 1.10 m/s (<=1.1m/s) AoV VTI: 39.90 cm (18-25cm) LVOT VTI: 29.50 cm LVOT Diameter: 2.40 cm (1.8-2.4cm) AoV Area, VTI: 3.34 cm2 (2.5-5.5cm2) AoV Area,Vmax: 2.93 cm2 (2.5-4.5cm2) AoV Dimensionless Index: 0.74 TRICUSPID VALVE/RVSP: Normal Ranges: Peak TR Velocity: 2.93 m/s RV Syst Pressure: 37 mmHg (< 30mmHg) PULMONIC VALVE: Normal Ranges: PV Max Poli: 1.0 m/s (0.6-0.9m/s) PV Max P.2 mmHg Pulmonary Veins: PulmV A Revs Dur: 123.00 msec PulmV A Revs Poli: 34.30 cm/s PulmV Strauss Poli: 65.60 cm/s PulmV S/D Poli: 1.10 PulmV Sys Poli: 69.00 cm/s [id number] Jose Cuevas MD, [facility] Electronically signed on 12/26/2023 at 12:18:27 PM Final Jose Cuevas MD CV ECHO PROCEDURES Final Result SYNGO * 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 - MISSILE MECHANIC, PHYSICIAN READ (12/24/2023 3:08 PM EDT) Impressions Jose Cuevas MD - 01/05/2024 7:31 PM EST Abnormal 48-hour Holter monitor. Predominant sinus rhythm with normal heart rate variability. 4 beat short mark of paroxysmal atrial tachycardia only. No atrial fibrillation. No ventricular tachycardia. No symptoms or activity provided. COMMENTS: Clinical correlation is advised. Jose Cuevas MD [facility] Cardiology Narrative Jose Cuevas MD - 01/05/2024 7:31 PM EST PROCEDURE: 48 Hour Holter Monitor DATE: 12/24/2023 INDICATION: Palpitations TECHNIQUE / RESULTS: 48-hour Holter monitor was performed with adequate tracings obtained. Average heart rate was 70 bpm. Minimum maximal heart rates were 52 beats minute 121 beats minute respectively. Predominant rhythm was sinus rhythm with normal heart rate variability. Rare isolated APCs. Short 4 beat run of paroxysmal atrial tachycardia. Sinus tachycardia at extreme. No atrial fibrillation. Rare isolated PVC. No ventricular tachycardia. No high-grade AV blocks or pauses. No symptoms recorded. Jose Cuevas MD CV CARDIAC SERVICES PROCE DURES Final Result * STRESS TEST, REGADEN[place]ON W MYOCARDIAL PERFUSION SPECT (MULTI STUDY) (12/24/2023 2:20 PM EDT) Anatomical Region Laterality Modality Nuclear Medicine 12/24/2023 5:15 PM EDT 12/24/2023 5:15 PM EDT Impressions 12/24/2023 5:13 PM EDT Abnormal Lexiscan Myoview cardiac perfusion stress test. Mild apical ischemia possibly ester-infarction by perfusion imaging. Abnormal left ventricular systolic function with moderate apical dyskinesia, ejection fraction 51%. Abnormal resting electrocardiogram as noted. No comparison study available. Clinical correlation is advised.. Signed by: Jose Cuevas 12/24/2023 5:13 PM Dictation workstation: [id number] 12/24/2023 5:13 PM EDT Interpreted By: Jose Cuevas and Christo Dennis STUDY: MYOCARDIAL PERFUSION STRESS TEST WITH LEXISCAN Performing facility: [facility] at [address] [place], [place] [address] Provider: Jose Cuevas MD, FACC PCP: Colten Parra DO Supervising provider: Jose Cuevas MD, FACC INDICATION: Hypertension, unspecified type; Atherosclerosis of [place] coronary artery of [place] heart without angina pectoris; Current every day smoker; Other hyperlipidemia; Palpitations; Unstable angina pectoris (Multi); Sleep apnea with use of continuous positive airway pressure (CPAP); History of ST elevation myocardial infarction (STEMI); History of PTCA; Shortness of breath; Acute cough; BMI 35.0-35.9,adult. HISTORY: Gender: M; Age: 58 y/o ; Height: HT 188 cm cm; Weight: WT 129.729 kg kg. CAD; S/P STEMI; HTN; PALPITATIONS; SOB. Currently smoking. Cardiac catheterization on 2020. PTCA on 2020-RCA. COMPARISON: Previous GXT ONLY testing completed [id number], NON DIAGNOSTIC at [facility]. ACCESSION NUMBER(S): [id number] ORDERING CLINICIAN: JOSE CUEVAS TECHNIQUE: ONE DAY protocol. Stress injection: Date:12/24/2023, 33.6 mCi of Myoview IV 20 seconds after rapid injection of Lexiscan. Rest injection: Date: 12/24/2023, 9.2 mCi of Myoview IV at rest. The patient had a rapid injection of 0.4 mg of Lexiscan IV over 10 seconds. Imaging was performed by gated tomographic technique. Reason for Lexiscan: SOB; AMBULATES WITH A CANE; HIP PAIN. STRESS TEST DATA: Resting heart rate was 62 BPM. Resting blood pressure was 152/82 mmHg. Peak blood pressure was 146/76 mmHg. Peak heart rate was 90 BPM. TEST TERMINATED DUE TO: Protocol completed. FINDINGS: STRESS TEST RESULTS: Resting electrocardiogram revealed sinus rhythm, poor R-wave anterior progression, low voltage. There were no significant ischemic ECG changes or dysrhythmias. The patient did not have chest pains/symptoms during procedure. There was a normal recovery phase. IMAGING RESULTS: Image quality was good. Rest and stress tomographic images were reviewed and revealed mildly abnormal perfusion with mild apical reversible perfusion defect without other perfusion abnormalities. No evidence of obvious myocardial infarction, or left ventricular dilatation with stress. Overall left ventricular systolic function appeared to be abnormal with apical dyskinesia. Ejection fraction was 51%. TID is 1.11 and is normal. There was no evidence of significant attenuation artifact. Procedure Note Jose Cuevas MD - 12/24/2023 Interpreted By: Jose Cuevas and Christo Dennis STUDY: MYOCARDIAL PERFUSION STRESS TEST WITH LEXISCAN Performing facility: [facility] at [address] Provider: Jose Cuevas MD, [facility] PCP: Colten Parra DO Supervising provider: Jose Cuevas MD, [facility] INDICATION: Hypertension, unspecified type; Atherosclerosis of [place] coronary artery of [place] heart without angina pectoris; Current every day smoker; Other hyperlipidemia; Palpitations; Unstable angina pectoris (Multi); Sleep apnea with use of continuous positive airway pressure (CPAP); History of ST elevation myocardial infarction (STEMI); History of PTCA; Shortness of breath; Acute cough; BMI 35.0-35.9,adult. HISTORY: Gender: M; Age: 58 y/o ; Height: HT 188 cm cm; Weight: WT 129.729 kg kg. CAD; S/P STEMI; HTN; PALPITATIONS; SOB. Currently smoking. Cardiac catheterization on 2020. PTCA on 2020-RCA. COMPARISON: Previous GXT ONLY testing completed [id number], NON DIAGNOSTIC at [facility]. ACCESSION NUMBER(S): [id number] ORDERING CLINICIAN: JOSE CUEVAS TECHNIQUE: ONE DAY protocol. Stress injection: Date:12/24/2023, 33.6 mCi of Myoview IV 20 seconds after rapid injection of Lexiscan. Rest injection: Date: 12/24/2023, 9.2 mCi of Myoview IV at rest. The patient had a rapid injection of 0.4 mg of Lexiscan IV over 10 seconds. Imaging was performed by gated tomographic technique. Reason for Lexiscan: SOB; AMBULATES WITH A CANE; HIP PAIN. STRESS TEST DATA: Resting heart rate was 62 BPM. Resting blood pressure was 152/82 mmHg. Peak blood pressure was 146/76 mmHg. Peak heart rate was 90 BPM. TEST TERMINATED DUE TO: Protocol completed. FINDINGS: STRESS TEST RESULTS: Resting electrocardiogram revealed sinus rhythm, poor R-wave anterior progression, low voltage. There were no significant ischemic ECG changes or dysrhythmias. The patient did not have chest pains/symptoms during procedure. There was a normal recovery phase. IMAGING RESULTS: Image quality was good. Rest and stress tomographic images were reviewed and revealed mildly abnormal perfusion with mild apical reversible perfusion defect without other perfusion abnormalities. No evidence of obvious myocardial infarction, or left ventricular dilatation with stress. Overall left ventricular systolic function appeared to be abnormal with apical dyskinesia. Ejection fraction was 51%. TID is 1.11 and is normal. There was no evidence of significant attenuation artifact. IMPRESSION: Abnormal Lexiscan Myoview cardiac perfusion stress test. Mild apical ischemia possibly ester-infarction by perfusion imaging. Abnormal left ventricular systolic function with moderate apical dyskinesia, ejection fraction 51%. Abnormal resting electrocardiogram as noted. No comparison study available. Clinical correlation is advised.. Signed by: Jose Cuevas 12/24/2023 5:13 PM Dictation workstation: [id number] Jose Cuevas MD CV STRESS PROCEDURES Sarah l Result * ECG 12 lead (Clinic Performed) (12/13/2023 11:30 AM EDT) Narrative Jose Cuevas MD - 12/13/2023 12:37 PM EDT Sinus rhythm, nonspecific ST-T wave changes. Rate 76. Jose Cuevas MD ECG ORDERABLES Final Res ult * ECHOCARDIOGRAM (12/23/2020) Narrative 12/23/2020 Ordered by an unspecified provider. us Onbase Conversion CV ECHO PROCEDURES Final Resul t * Echocardiogram (12/23/2020) 12/23/2020 [facility] - 12/23/2020 12:00 AM EDT [address], [address], [place] [address] TRANSTHORACIC ECHOCARDIOGRAM REPORT Patient Name: ASHOK DOSS Reading Physician: [id number] Antony Pena MD, [facility] Study Date: 12/23/2020 Referring Physician: [id number] JEAN CLAUDE STACY MRN/PID: [id number] PCP: Colten Parra MD Accession/Order#: [id number] Department Location: [facility] Date of : 1965 Fellow: Gender: M Nurse: Admit Date: Web Merchandiser: Latanya Yadav RDCS, RT(R), RDMS, RVT Height: 187.96 cm CC Report to: Weight: 119.75 kg Study Type: Echocardiogram BSA: 2.45 m2 Diagnosis/ICD: I25.10-Atherosclerotic heart disease of [place] coronary artery without angina pectoris; I21.19-ST elevation (STEMI) myocardial infarction involving other coronary artery of inferior wall Indication: HTN PTCA Procedure/CPT: Echo Complete w Full Doppler-[id number] Study Detail: The following Echo studies were [...] 0.8 m/s (0.6-0.9m/s) PV Max P.5 mmHg Sunil Pena MD, [facility] Electronically signed on 12/23/2020 at 11:56:24 AM Final Procedure Note Conversion, Syngo - 04/06/[address], [address] [place] [address] TRANSTHORACIC ECHOCARDIOGRAM REPORT Patient Name: ASHOK Callahan Physician: [id number] Antony Edwards FACC Study Date: 12/23/2020 Referring Physician: [id number] STACY MRN/PID: [id number] PCP: Colten Parra MD Accession/Order#: [id number] Department Location: [facility] Date of : 1965 Fellow: Gender: M Nurse: Admit Date: Web Merchandiser: Latanya Boyd, RT(R), RDMS, RVT Height: 187.96 cm CC Report to: Weight: 119.75 kg Study Type: Echocardiogram BSA: 2.45 m2 Diagnosis/ICD: I25.10-Atherosclerotic heart disease of [place] coronaryartery without angina pectoris; I21.19-ST elevation (STEMI)myocardial infarction involving other coronary artery of inferiorwall Indication: HTN PTCA Procedure/CPT: Echo Complete w Full Doppler-[id number] Study Detail: The following Echo studies were performed: 2D, M-Mode,Doppler and color flow. PHYSICIAN INTERPRETATION: Left Ventricle: The left ventricular systolic function is normal, with anestimated ejection fraction of 60-65%. There are no regional wall motionabnormalities. The left ventricular cavity size is normal. The leftventricular septal wall thickness is normal. There is normal leftventricular posterior wall thickness. Spectral Doppler shows a normalpattern of left ventricular diastolic filling. Left Atrium: The left atrium is normal in size. Left atrial volume indexis 11 ml/m2. Right Ventricle: The right ventricle is normal in size. There is normalright ventricular global systolic function. Normal RV size and function. Right Atrium: The right atrium is normal in size. Aortic Valve: The aortic valve is trileaflet. There is no evidence ofaortic valve regurgitation. The peak instantaneous gradient of the aorticvalve is 8.1 mmHg. The mean gradient of the aortic valve is 6.0 mmHg. Mitral Valve: The mitral valve is normal in structure. There is tracemitral valve regurgitation. Trivial mitral regurgitation. Tricuspid Valve: The tricuspid valve is structurally normal. There istrace tricuspid regurgitation. Trivial tricuspid regurgitation withestimated RVSP of 32 mmHg. Pulmonic Valve: The pulmonic valve is structurally normal. There is noindication of pulmonic valve regurgitation. Pericardium: There is no pericardial effusion noted. Aorta: The aortic root is normal. CONCLUSIONS: 1. The left ventricular systolic function is normal with a 60-65%estimated ejection fraction. 2. Normal RV size and [...] 0.8 m/s (0.6-0.9m/s) PV Max P.5 mmHg [id number] Antony Pena MD, [facility] Electronically signed on 12/23/2020 at 11:56:24 AM Final us Syngo Conversion CV ECHO PROCEDURES Final Result [facility] [address] [place] [address], [place] * CARDIAC STRESS TEST (12/23/2020) Narrative 12/23/2020 Ordered by an unspecified provider. us Onbase Conversion CV STRESS PROCEDURES Final Res ult * Cardiac Stress Test (12/23/2020) 12/23/2020 Narrative [facility] - 12/23/2020 12:00 AM EDT [address], [address] [address] Exercise Stress Test Patient Name: ASHOK DOSS Ordering Physician: [id number] Stacy MD Study Date: 12/23/2020 Reading Physician: [id number] Antony Pena MD, [facility] MRN/PID: [id number] Supervising Physician: Accession/Order#: [id number] Referring Physician: Sheridan STACY Date of : 1965 PCP: Gender: M Fellow: Height: 187.96 cm Nurse: Frida Dewey RN Weight: 119.75 kg Web Merchandiser: N/A BSA: 2.45 m2 Technologist: BMI: 33.90 kg/m2 Additional Staff: Age: 55 years cc report to: Patient Location: [facility] cc report to: [id number] Jean Claude Stacy MD Study Type: Cardiac Stress Test Diagnosis/ICD: I25.10-Atherosclerotic heart disease; I21.19-ST elevation (STEMI) myocardial infarction involving other coronary artery of inferior wall Indication: CAD, INF. SC Procedure/CPT: Stress Test Interpretation-72019; Stress Test Supervision-[id number] Falls Risk: Patient Performance: The patient exercised [...] no abnormal findings. Stress Stage Data: + +---+------+-------+ + HR Sys BP Strauss BP RPE + +---+------+-------+ + Baseline Resting 67 126 68 + +---+------+-------+ + Stage I 110 146 78 16=Hard + +---+------+-------+ + Stage II 126 152 80 20=Very,very hard + +---+------+-------+ + Recovery ECG: Recovery ECG showed sinus tachycardia and normal sinus rhythm, with no abnormal findings. The heart rate recovery was normal. + +---+------+-------+ HR Sys BP Strauss BP + +---+------+-------+ Recovery I 120 146 74 + +---+------+-------+ Recovery II 114 146 72 + +---+------+-------+ Recovery III 90 132 72 + +---+------+-------+ Recovery IV 81 124 72 + +---+------+-------+ Summary: 1. No exercise induced chest discomfort or ST changes at 76% of MPHR. Below average exercise capacity. 2. Non-diagnostic Stress Test. 3. The inadequate level of stress was achieved. Sunil Pena MD, [facility] Electronically signed on 12/23/2020 at 5:13:30 PM Final Procedure Note Conversion, Syngo - 04/06/[address], [place] [address] Exercise Stress Test Patient Name: ASHOK DOSS Ordering Physician: Lisa Stacy MD Study Date: 12/23/2020 Reading Physician: King Pena MD,[facility] MRN/PID: [id number] Supervising Physician: Accession/Order#: [id number] Referring Physician: LISA STACY Date of : 1965 PCP: Gender: M Fellow: Height: 187.96 cm Nurse: Maribel GOODMAN Weight: 119.75 kg Web Merchandiser: N/A BSA: 2.45 m2 Technologist: BMI: 33.90 kg/m2 Additional Staff: Age: 55 years cc report to: Patient Location: [facility] cc report to: Lisa Stacy MD Study Type: Cardiac Stress Test Diagnosis/ICD: I25.10-Atherosclerotic heart disease; I21.19-ST elevation(STEMI) myocardial infarction involving other coronary artery ofinferior wall Indication: CAD, INF. SC Procedure/CPT: Stress Test Interpretation-31523; Stress TestSupervision-[id number] Falls Risk: Patient Performance: The patient exercised to stage II on a Antonio protocolfor 4 minutes and 29 seconds, achieving 6.3 METS. The peak heart rateachieved was 126 bpm, which was 77 % of the age predicted target heartrate of 165 bpm. The resting blood pressure was 126/68 mmHg with a heartrate of 67 bpm. The patient's functional capacity was below average. Thepatient developed shortness of breath during the stress exam. The symptomsresolved with rest. The blood pressure response was normal. The test wasterminated due to: dyspnea. Double Product (HR x BP): 192. Baseline ECG: Resting ECG showed normal sinus rhythm with normaltracing. Stress ECG: Stress ECG showed sinus tachycardia, with no abnormalfindings. Stress Stage Data: + +---+------+-------+ + HR Sys BP Strauss BP RPE + +---+------+-------+ + Baseline Resting 67 126 68 + +---+------+-------+ + Stage I 110 146 78 16=Hard + +---+------+-------+ + Stage II 126 152 80 20=Very,very hard + +---+------+-------+ + Recovery ECG: Recovery ECG showed sinus tachycardia and normal sinusrhythm, with no abnormal findings. The heart rate recovery was normal. + +---+------+-------+ HR Sys BP Strauss BP + +---+------+-------+ Recovery I 120 146 74 + +---+------+-------+ Recovery II 114 146 72 + +---+------+-------+ Recovery III 90 132 72 + +---+------+-------+ Recovery IV 81 124 72 + +---+------+-------+ Summary: 1. No exercise induced chest discomfort or ST changes at 76% of MPHR. Below average exercise capacity. 2. Non-diagnostic Stress Test. 3. The inadequate level of stress was achieved. [id number] Antony Pena MD, [facility] Electronically signed on 12/23/2020 at 5:13:30 PM Final us Syngo Conversion CV STRESS PROCEDURES Final Resu lt [facility] [address] [place] [address], * ELECTROCARDIOGRAM RHYTHM STRIP (11/29/2020) Only the most recent of2 resultswithin the time period is included. Narrative 11/29/2020 Ordered by an unspecified provider. us Onbase Conversion ECG ORDERABLES Final Result * (ABNORMAL) Troponin I (11/19/2020 9:03 PM EDT) Only the most recent of5 resultswithin the time period is included. Troponin I 10.69(HH) 0.00 - 0.03 ng/mL [facility] Comment: LESS THAN 0.04 NG/ML: NEGATIVE REPEAT [...] is performed using different testing methodology at [facility] than at other [facility]. Direct result comparisons should only be made within the same method. 21:43 11/19/2020. Called- RB to Shelia GOODMAN , 11/19/2020 21:43 11/19/2020 9:03 PM EDT 11/19/2020 9:06 PM EDT Jean Claude Stacy MD LAB BLOOD ORDERABLES Final Resul t [facility] * Heparin Assay (11/19/2020 2:38 PM EDT) Only the most recent of3 resultswithin the time period is included. HEPARIN UNFRACTIONATED 0.2 IU/mL [facility] Comment: The therapeutic reference range for UFH may be either 0.3-0.6 IU/mL or 0.3-0.7 IU/mL based on the clinical setting for anticoagulant therapy and the associated nomogram used. For heparin dosing guidelines based on clinical scenario and Heparin Assay results, please refer to local Pharmacy and the [facility] Guidelines for Anticoagulation therapy available on the [facility] intranet at: [email or web address] 11/19/2020 2:38 PM EDT 11/19/2020 2:40 PM EDT Jean Claude Stacy MD LAB BLOOD ORDERABLES Final Resul t [facility] * (ABNORMAL) CBC (11/19/2020 5:23 AM EDT) Only the most recent of2 resultswithin the time period is included. WBC 22.9(H) 4.4 - 11.3 x10E9/L [facility] RBC 4.42(L) 4.50 - 5.90 x10E12/L [facility] Hemoglobin 13.5 13.5 - 17.5 g/dL [facility] Hematocrit 41.2 41.0 - 52.0 % [facility] MCV 93 80 - 100 fL [facility] MCHC 32.8 32.0 - 36.0 g/dL [facility] Platelets 333 150 - 450 x10E9/L [facility] RDW 13.3 11.5 - 14.5 % [facility] 11/19/2020 5:23 AM EDT 11/19/2020 5:28 AM EDT Leia Stearns SHIFT SUPERINTENDENT-RETAIL ANALYTICS MANAGER LAB BLOOD ORDERABLES F inal Result Performing Organization Address City/[facility]/ZIP Co de Phone Number [facility] * Magnesium (11/19/2020 5:23 AM EDT) Pathologist [facility] Magnesium 1.80 1.60 - 2.40 mg/dL [facility] 11/19/2020 5:23 AM EDT 11/19/2020 5:28 AM EDT Leia Stearns SHIFT SUPERINTENDENT-RETAIL ANALYTICS MANAGER LAB BLOOD ORDERABLES F inal Result [facility] * (ABNORMAL) Basic Metabolic Panel (11/19/2020 5:23 AM EDT) Glucose 115(H) 74 - 99 mg/dL [facility] Sodium 140 136 - 145 mmol/L [facility] Potassium 3.8 3.5 - 5.3 mmol/L [facility] Chloride 109(H) 98 - 107 mmol/L [facility] Bicarbonate 23 21 - 32 mmol/L [facility] Anion Gap 12 10 - 20 mmol/L [facility] Urea Nitrogen 20 6 - 23 mg/dL [facility] Creatinine 0.83 0.50 - 1.30 mg/dL [facility] GLOMERULAR FILTRATION RATE-NON >60 >60 mL/min/1.7 3m2 [facility] GLOMERULAR FILTRATION RATE- >60 >60 mL/min/1.[address] [place] [address] LAB Comment: CALCULATIONS OF ESTIMATED GFR ARE PERFORMED USING THE MDRD STUDY EQUATION FOR THE IDMS-TRACEABLE CREATININE METHODS. CLIN CHEM 2007;53:766-72 Calcium 8.4(L) 8.6 - 10.3 mg/dL [facility] 11/19/2020 5:23 AM EDT 11/19/2020 5:28 AM EDT us Leia Stearns APRN-RETAIL ANALYTICS MANAGER LAB BLOOD ORDERABLES F inal Result Performing Organization Address [facility]/ZIP Co de Phone Number [facility] * aPTT (11/19/2020 12:53 AM EDT) aPTT 28 25 - 35 sec [facility] Comment: THE APTT IS NO LONGER USED FOR MONITORING UNFRACTIONATED HEPARIN THERAPY. FOR MONITORING HEPARIN THERAPY, USE THE HEPARIN ASSAY. 11/19/2020 12:5 3 AM EDT 11/19/2020 1:00 AM EDT us Jerry Bronson MD LAB BLOOD ORDERABLES Final Re sult [facility] * Protime-INR (11/19/2020 12:53 AM EDT) Protime 12.8 10.1 - 13.3 sec [facility] INR 1.1 0.9 - 1.1 [facility] 11/19/2020 12:5 3 AM EDT 11/19/2020 1:00 AM EDT Jerry Bronson MD LAB BLOOD ORDERABLES Final Re sult Performing Organization Address [facility] Co de Phone Number [facility] * (ABNORMAL) ACTIVATED CLOTTING TIME LOW (11/18/2020 7:41 PM EDT) Activated Clotting Time POC Low Range 294(H) 89 - 169 SECONDS [facility] Comment: Note new reference range as of 06/06/2018. Target ACT range will vary based on the patient population, clinical status, and surgical intervention occurring. 11/18/2020 7:41 PM EDT 11/21/2020 6:18 AM EDT Jean Claude Stacy MD LAB POINT OF CARE TE ST DOCKED DEVICE UNSOLICITED RESULTS Final Result Performing Organization Address [facility] de Phone Number [facility] * (ABNORMAL) ACTIVATED CLOTTING TIME LOW (11/18/2020 7:24 PM EDT) Activated Clotting Time POC Low Range 207(H) 89 - 169 SECONDS [facility] Comment: Note new reference range as of 06/06/2018. Target ACT range will vary based on the patient population, clinical status, and surgical intervention occurring. 11/18/2020 7:24 PM EDT 11/21/2020 6:18 AM EDT Jean Claude Stacy MD LAB POINT OF CARE TE ST DOCKED DEVICE UNSOLICITED RESULTS Final Result Performing Organization Address [facility] Co de Phone Number [facility] * XR CHEST 1 VIEW (11/18/2020 7:19 PM EDT) Anatomical Region Laterality Modality Chest Radiographic Eufemia ging Narrative 11/18/2020 7:40 PM EDT STUDY: Chest Radiograph; 11/18/2020 7:22 PM. INDICATION: Concern for dissection, chest pain. COMPARISON: None Available. ACCESSION NUMBER(S): [id number] ORDERING CLINICIAN: JERRY BRONSON MD TECHNIQUE: Frontal chest was obtained at 1919 hours. FINDINGS: CARDIOMEDIASTINAL SILHOUETTE: Cardiomediastinal silhouette is normal in size and configuration. LUNGS: Lungs are clear. ABDOMEN: No remarkable upper abdominal findings. BONES: No acute osseous changes. IMPRESSION: No acute cardiopulmonary process seen. Signed by Kaden Griffiths MD Procedure Note Kaedn Griffiths MD - 04/16/2022 STUDY: Chest Radiograph; 11/18/2020 7:22 PM. INDICATION: Concern for dissection, chest pain. COMPARISON: None Available. ACCESSION NUMBER(S): [id number] ORDERING CLINICIAN: JERRY BRONSON MD TECHNIQUE: Frontal chest was obtained at 1919 hours. FINDINGS: CARDIOMEDIASTINAL SILHOUETTE: Cardiomediastinal silhouette is normal in size and configuration. LUNGS: Lungs are clear. ABDOMEN: No remarkable upper abdominal findings. BONES: No acute osseous changes. IMPRESSION: No acute cardiopulmonary process seen. Signed by Kaden Griffiths MD Jerry Bronson MD IMG XR PROCEDURES Final Resul t * Sars-CoV-2 PCR, Screen Asymptomatic (11/18/2020 7:18 PM EDT) SARS-CoV-2 Result NOT DETECTED Not Detected [facility] Comment: . This test has received FDA Emergency Use Authorization (EUA) and has been verified by [facility]. This test is only authorized for the duration of time that circumstances exist to justify the authorization of the emergency use of in vitro diagnostic tests for the detection of SARS-CoV-2 virus and/or diagnosis of COVID-19 infection under section 564(b)(1) of the Act, 21 U.S.C. 360bbb-3(b)(1), unless the authorization is terminated or revoked sooner. [facility] is certified under CLIA-88 as qualified to perform high complexity testing. Testing is performed in the [facility] laboratory located at [address] [place] [address]. SARS-CoV-2/Flu/RSV Multiplex Test: Fact sheet for providers: https://www.fda.gov/media/912055/download Fact sheet for patients: https://www.fda.gov/media/644816/download 11/18/2020 7:18 PM EDT 11/18/2020 7:18 PM EDT Jerry Bronson MD LAB MOLECULAR DIAGNOSTICS ORD ERABLES Final Result Performing Organization Address [facility] Co de Phone Number [facility] * B-Type Natriuretic Peptide (11/18/2020 7:17 PM EDT) Pathologist [facility] BNP 33 0 - 99 pg/mL [facility] Comment: . <100 pg/mL - Heart failure unlikely 100-299 pg/mL - Intermediate probability of acute heart . failure exacerbation. Correlate with clinical . context and patient history. >=300 pg/mL - Heart Failure likely. Correlate with clinical . context and patient history. BNP testing is performed using different testing methodology at [facility] than at other [facility]. Direct result comparisons should only be made within the same method. 11/18/2020 7:17 PM EDT 11/18/2020 7:17 PM EDT Jerry Bronson MD LAB BLOOD ORDERABLES Final Re sult Performing Organization Address [facility]/ZIP Co de Phone Number [facility] * (ABNORMAL) Comprehensive Metabolic Panel (11/18/2020 7:17 PM EDT) Pathologist [facility] Glucose 113(H) 74 - 99 mg/dL [facility] Sodium 143 136 - 145 mmol/L [facility] Potassium 3.8 3.5 - 5.3 mmol/L [facility] Chloride 107 98 - 107 mmol/L [facility] Bicarbonate 28 21 - 32 mmol/L [facility] Anion Gap 12 10 - 20 mmol/L [facility] Urea Nitrogen 19 6 - 23 mg/dL [facility] Creatinine 1.12 0.50 - 1.30 mg/dL [facility] GLOMERULAR FILTRATION RATE-NON >60 >60 mL/min/1.7 3m2 [facility] GLOMERULAR FILTRATION RATE- >60 >60 mL/min/1.7 3m2 [facility] Comment: CALCULATIONS OF ESTIMATED GFR ARE PERFORMED USING THE MDRD STUDY EQUATION FOR THE IDMS-TRACEABLE CREATININE METHODS. CLIN CHEM 2007;53:766-72 Calcium 9.4 8.6 - 10.3 mg/dL [facility] Albumin 4.2 3.4 - 5.0 g/dL [facility] Alkaline Phosphatase 74 33 - 120 U/L [facility] Total Protein 7.0 6.4 - 8.2 g/dL [facility] AST 15 9 - 39 U/L [facility] Total Bilirubin 0.3 0.0 - 1.2 mg/dL [facility] ALT (SGPT) 19 10 - 52 U/L [facility] Comment: Patients treated with Sulfasalazine may generate falsely decreased results for ALT. 11/18/2020 7:17 PM EDT 11/18/2020 7:17 PM EDT us Jerry Bronson MD LAB BLOOD ORDERABLES Final Re sult [facility] * OUTSIDE IMAGING SCAN (11/18/2020) Anatomical Region Laterality Modality Other Narrative 11/18/2020 Ordered by an unspecified provider. us Onbase Conversion OUTSIDE SCAN Final Result * Adult Cath (11/18/2020) 11/18/2020 Narrative [facility] - 11/18/2020 12:00 AM EDT [facility], Film Projector Operator [address] [place] [address] Cardiovascular Catheterization Report Patient Name: Ashok Doss Performing Physician: [id number] Jean Claude Stacy MD Study Date: 11/18/2020 Verifying Physician: [id number] Jean Claude Stacy MD MRN/PID: [id number] Political Science Research Assistant: Accession/Order#: [id number] Referring Physician: [id number] José Miguel Posey MD Date of : [...] a modified Seldinger technique. Subsequently a 6 Japanese sheath was placed in the right femoral [...] less than 10% distal stenosis. First septal lightning rod installer is moderately large and has 0% stenosis. [...] dissection 7. Angio-Seal hemostatic device was used. Complications: No in-lab complications observed. Cardiac Cath Transition of Care Summary: Post Procedure Diagnosis: Single vessel disease and Mild CAD. Blood Loss: Estimated blood loss during the procedure was 15cc mls. Specimens Removed: Number of specimen(s) removed: none. Recommendations: Agressive risk factor modification efforts. Telemetry monitoring. Follow-up with cardiology clinic. Follow-up with primary care physician. Anti-platelet therapy with Dual antiplatelet therapy, Aspirin and Ticagrelor 90mgs BID. Lipid lowering agent or Statin therapy. Consider referral to cardiac rehabilitation. Aspirin therapy. Beta jaycob therapy. ____ CONCLUSIONS: 1. Single vessel disease and non-obstructive coronary artery disease. 2. Culprit vessel(s): right coronary artery. 3. 1. Codominant system 2. Diffuse coronary artery [...] dissection 7. Angio-Seal hemostatic device was used. 4. Left Ventricular end-diastolic pressure = 10mm hg. 5. Normal LV systolic function. ____ CPT Codes: Left Heart Cath (visualization of coronaries) and LV-16053; Moderate Sedation Services initial 15 minutes patient >5 years-24935; Moderate Sedation Services 1st additional 15 minutes patient >5 years-12830; Moderate Sedation Services 2nd additional 15 minutes patient >5 years-46566; Angiography, Extremity,uni,S&I (PER)-21572; Angioplasty, single Left Anterior Descending major Artery/branch (PCI)-28235. ICD 10 Codes: I21.02-ST elevation (STEMI) myocardial infarction involving left anterior descending coronary artery [id number] Jean Claude Stacy MD Performing Physician cc Report to: [id number] José Miguel Posey MD cc Report to: [id number] Stacy MD Final Procedure Note Conversion, Syngo - 04/06/2022 [facility], Film Projector Operator [address] [place] [address] Cardiovascular Catheterization Report Patient Name: Ashok Doss Performing Physician: Sheridan Patton Study Date: 11/18/2020 Verifying Physician: Sheridan Patton MRN/PID: [id number] Political Science Research Assistant: Accession/Order#: [id number] Referring Physician: [id number] Garrett Date of : 1965 Referring Physician: Gender: M Referring Physician: Sheridan Patton Study: Left Heart Catheterization Indications: Ashok Doss is a 55 year old male who presents with hypertension andtobacco Use - current. Acute coronary syndrome <=24 hrs and Immediate PCIfor acute STEMI , with a chest pain assessment of typical angina. Studyperformed as an emergency cath procedure. Medical History: Stress test performed: No. CTA performed: No. [place] accessed: No. LVEFAssessed: Yes. Procedure Description: After infiltration with 2% Lidocaine, the right femoral artery wascannulated with a modified Seldinger technique. Subsequently a 6 Frenchsheath was placed in the right femoral artery. Selective coronarycatheterization was performed using a 5 Fr catheter(s) exchanged over aguide wire to cannulate the coronary arteries. A JL 4 tip catheter wasused for left coronary injections. A JR GUIDE tip catheter was used forright coronary injections. Multiple injections of contrast were made into the left and right coronaryarteries with angiograms recorded in multiple projections. Retrograde leftheart catheterizion was accomplished with a 5 Fr. pigtail catheter. Asingle plane left ventriculogram was recorded in the 30 degree RAOprojection. The contrast dose was 20 ml injected at 10 ml/sec. Thecatheter was then withdrawn across the aortic valve under continuouspressure monitoring and removed. After completion of the procedure,femoral artery angiography was performed. This demonstrated a commonfemoral artery puncture appropriate for closure. An Angio-Seal VIP 6F ([employer]) vascular closure device was placed per protocol. Coronary Angiography: The coronary circulation is co-dominant. 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 Right coronary arteries the culprit vessel. Proximal vessel has about 30%stenosis ostial RCA has about 20 to 30% stenosis distal mid RCA has 100%stenosis with dye staining. There is ELIECER 0 distal flow. Left main coronary artery arises from the left sinus of Valsalva. Ittrifurcates into the left anterior descending artery the ramus intermediusbranch and the left circumflex artery. Left main coronary artery has 0% stenosis Left anterior descending artery has about 20% proximal 50% mid and lessthan 10% distal stenosis. First septal lightning rod installer is moderately large andhas 0% stenosis. First major diagonal branch measures about 2.25 to 2.5 mmand has about 20% stenosis. Ramus intermedius branch measures about 2.25 mm and has less than 20%stenosis Left circumflex arteries probably codominant, proximal vessel has 0%stenosis distal vessel has 0% stenosis first obtuse marginal branchmeasures about 2.25 mm second obtuse marginal branch measures about 2 mm,the left circumflex artery terminates in a moderately large third obtusemarginal branch. Left ventricular end-diastolic pressure is about 10 mmHg no systolicgradient across the aortic valve visually estimated left ventricularejection fraction is about 55% no regional wall motion abnormality ormitral regurgitation is appreciated in the TODD view Selective right common femoral angiography showed that the access is inthe common femoral artery above its bifurcation and at the right commonfemoral artery and its bifurcation appear angiographically normal. Left Ventriculography: All left ventricular regional wall segments contract normally. Coronary Interventions: Angiography reveals a 100% stenosis of the mid to distal right coronaryartery. Pre-intervention ELIECER flow was 0. Percutaneous coronaryintervention was performed within the mid to distal right coronary artery.The vessel was pre-dilated using a compliant balloon 2.5 mm x 12 mm at 8to 10 ALESHA. Synergy 3.5 mm x 16 mm was advanced to the lesion andimplanted. The stenosis was successfully reduced from 100% to 0%.Post-intervention ELIECER flow was 3. Additional Findings: 1. Codominant system 2. Diffuse coronary artery disease 20 to 30% in all territories 3. 100% distal mid RCA occlusion with ELIECER 0 antegrade flow, culpritvessel 4. Mid LAD with about 50% smooth stenosis after major diagonal branch 5. LVEDP 10 mmHg LVEF about 55%, no regional wall motion abnormality ormitral regurgitation appreciated in the TODD view 6. Patient underwent PCI and stenting of the distal mid RCA. 3.5 x 16 mmSynergy drug-eluting stent was used. Final results showed 0% residualstenosis with ELIECER- 3 flow and no dissection 7. Angio-Seal hemostatic device was used. Complications: No in-lab complications observed. Cardiac Cath Transition of Care Summary: Post Procedure Diagnosis: Single vessel disease and Mild CAD. Blood Loss: Estimated blood loss during the procedure [id number] mls. Specimens Removed: Number of specimen(s) removed: none. Recommendations: Agressive risk factor modification efforts. Telemetry monitoring. Follow-up with cardiology clinic. Follow-up with primary care physician. Anti-platelet therapy with Dual antiplatelet therapy, Aspirin andTicagrelor 90mgs BID. Lipid lowering agent or Statin therapy. Consider referral to cardiac rehabilitation. Aspirin therapy. Beta jaycob therapy. ____ CONCLUSIONS: 1. Single vessel disease and non-obstructive coronary artery disease. 2. Culprit vessel(s): right coronary artery. 3. 1. Codominant system 2. Diffuse coronary artery disease 20 to 30% in all territories 3. 100% distal mid RCA occlusion with ELIECER 0 antegrade flow, culpritvessel 4. Mid LAD with about 50% smooth stenosis after major diagonalbranch 5. LVEDP 10 mmHg LVEF about 55%, no regional wall motion abnormalityor mitral regurgitation appreciated in the TODD view 6. Patient underwent PCI and stenting of the distal mid RCA. 3.5 x 16mm Synergy drug-eluting stent was used. Final results showed 0% residualstenosis with ELIECER- 3 flow and no dissection 7. Angio-Seal hemostatic device was used. 4. Left Ventricular end-diastolic pressure = 10mm hg. 5. Normal LV systolic function. ____ CPT Codes: Left Heart Cath (visualization of coronaries) and LV-87297; ModerateSedation Services initial 15 minutes patient >5 years-92191; ModerateSedation Services 1st additional 15 minutes patient >5 years-[id number];Moderate Sedation Services 2nd additional 15 minutes patient >5years-25825; Angiography, Extremity,uni,S&I (PER)-52603; Angioplasty,single Left Anterior Descending major Artery/branch (PCI)-12367.LD ICD 10 Codes: I21.02-ST elevation (STEMI) myocardial infarction involving left anteriordescending coronary artery [id number] Jean Claude Stacy MD Performing Physician [place] Report to: [id number] José Miguel Posey MD cc Report to: [id number] Jean Claude Stacy MD Final us [employer] Conversion CV CARDIAC CATH PROCEDURES Sarah l Result [facility] [address] Visit Diagnoses Diagnosis Start Date ST elevation (STEMI) myocardial infarction involving other coronary artery of inferior wall (Multi) 11/18/2020 Atherosclerotic heart disease of [place] coronary artery without angina pectoris 12/23/2020 Primary hypertension Unspecified essential hypertension 04/01/2023 Atherosclerosis of [place] coronary artery of [place] heart without angina pectoris 08/28/2023 History of PTCA Postsurgical percutaneous transluminal coronary angioplasty status 08/28/2023 Mixed hyperlipidemia 08/28/2023 Primary hypertension Unspecified essential hypertension 08/28/2023 Current every day smoker 08/28/2023 BMI 35.0-35.9,adult 08/28/2023 Hypertension, unspecified type 12/13/2023 Atherosclerosis of [place] coronary artery of [place] heart without angina pectoris 12/13/2023 Current every day smoker 12/13/2023 Other hyperlipidemia 12/13/2023 Palpitations 12/13/2023 Unstable angina pectoris (Multi) Intermediate coronary syndrome 12/13/2023 Sleep apnea with use of continuous positive airway pressure (CPAP) 12/13/[address] elevation myocardial infarction (STEMI) 12/13/2023 History of PTCA Postsurgical percutaneous transluminal coronary angioplasty status 12/13/2023 Shortness of breath 12/13/2023 Acute cough 12/13/2023 BMI 35.0-35.9,adult 12/13/2023 Hypertension, unspecified type 12/24/2023 Atherosclerosis of [place] coronary artery of [place] heart without angina pectoris 12/24/2023 Current every day smoker 12/24/2023 Other hyperlipidemia 12/24/2023 Palpitations 12/24/2023 Unstable angina pectoris (Multi) Intermediate coronary syndrome 12/24/2023 Sleep apnea with use of continuous positive airway pressure (CPAP) 12/24/[address] elevation myocardial infarction (STEMI) 12/24/2023 History of PTCA Postsurgical percutaneous transluminal coronary angioplasty status 12/24/2023 Shortness of breath 12/24/2023 Acute cough 12/24/2023 BMI 35.0-35.9,adult 12/24/2023 Hypertension, unspecified type 12/24/2023 Atherosclerosis of [place] coronary artery of [place] heart without angina pectoris 12/24/2023 Current every day smoker 12/24/2023 Other hyperlipidemia 12/24/2023 Palpitations 12/24/2023 Unstable angina pectoris (Multi) Intermediate coronary syndrome 12/24/2023 Sleep apnea with use of continuous positive airway pressure (CPAP) 12/24/[address] elevation myocardial infarction (STEMI) 12/24/2023 History of PTCA Postsurgical percutaneous transluminal coronary angioplasty status 12/24/2023 Shortness of breath 12/24/2023 Acute cough 12/24/2023 BMI 35.0-35.9,adult 12/24/2023 Chest pain, unspecified 12/24/2023 Primary hypertension Unspecified essential hypertension 12/24/2023 Atherosclerosis of [place] coronary artery of [place] heart with stable angina pectoris 12/24/2023 Current every day smoker 12/24/2023 Hypertension, unspecified type 12/24/2023 Atherosclerosis of [place] coronary artery of [place] heart without angina pectoris 12/24/2023 Current every day smoker 12/24/2023 Other hyperlipidemia 12/24/2023 Palpitations 12/24/2023 Unstable angina pectoris (Multi) Intermediate coronary syndrome 12/24/2023 Sleep apnea with use of continuous positive airway pressure (CPAP) 12/24/[address] elevation myocardial infarction (STEMI) 12/24/2023 History of PTCA Postsurgical percutaneous transluminal coronary angioplasty status 12/24/2023 Shortness of breath 12/24/2023 Acute cough 12/24/2023 BMI 35.0-35.9,adult 12/24/2023 Encounter to discuss test results Other specified counseling 01/06/2024 Shortness of breath 01/06/2024 History of PTCA Postsurgical percutaneous transluminal coronary angioplasty status 01/06/[address] elevation myocardial infarction (STEMI) 01/06/2024 Primary hypertension Unspecified essential hypertension 01/06/2024 Other hyperlipidemia 01/06/2024 Palpitations 01/06/2024 Acute cough 01/06/2024 Sleep apnea with use of continuous positive airway pressure (CPAP) 01/06/2024 BMI 37.0-37.9, adult 01/06/2024 Current every day smoker 01/06/2024 Fatigue, unspecified type 01/06/2024 Medication course changed 01/06/2024 Coronary artery disease involving [place] coronary artery of [place] heart with unstable angina pectoris 01/06/2024 Chest pain, unspecified type 01/06/2024 Abnormal nuclear stress test 01/06/2024 Shortness of breath 02/21/2024 Encounter to discuss test results Other specified counseling 02/21/2024 History of PTCA Postsurgical percutaneous transluminal coronary angioplasty status 02/21/2024 Mixed hyperlipidemia 02/21/2024 Primary hypertension Unspecified essential hypertension 02/21/2024 Current every day smoker 02/21/2024 BMI 37.0-37.9, adult 02/21/2024 Medication course changed 02/21/2024 Hypertension, unspecified type 02/21/2024 Atherosclerosis of [place] coronary artery of [place] heart without angina pectoris 02/21/2024 Other hyperlipidemia 02/21/2024 Sleep apnea with use of continuous positive airway pressure (CPAP) 02/21/[address] elevation myocardial infarction (STEMI) 02/21/2024 BMI 35.0-35.9,adult 02/21/2024 Primary hypertension Unspecified essential hypertension 03/08/2024 Palpitations 03/08/2024 Primary hypertension Unspecified essential hypertension 03/16/2024 Primary hypertension Unspecified essential hypertension 03/24/2024 Mixed hyperlipidemia 03/24/2024 Shortness of breath 03/24/2024 Palpitations 03/24/2024 Atherosclerosis of [place] coronary artery of [place] heart without angina pectoris 08/21/2024 Medication course changed 08/21/2024 Primary hypertension Unspecified essential hypertension 08/21/2024 Mixed hyperlipidemia 08/21/2024 Palpitations 08/21/2024 Current every day smoker 08/21/2024 Sleep apnea with use of continuous positive airway pressure (CPAP) 08/21/2024 BMI 35.0-35.9,adult 08/21/2024 Care Teams Ship Runner Relationship Specialty Start Date End Date Colten Parra DO PCP - General 12/23/20
--- OUTSIDE RECORDS SUMMARY | 2024-10-20 10:29 | XMS_ITS | Continuity of Care Document ---
Author Organization [facility] Healthcare Address [address] [place] [address] Care Team Providers Care Patternmaker Sample Name Role Phone Unavailable Primary Care Provider Unavailabl e Encounters Date Type Department Care Team Description 01/15/2022 eCW [facility] Documentation [facility] DATA CONVERSION LEGACY 01/04/2022 [facility] Non Patient Presenting [facility] DATA CONVERSION LEGACY Romero Oakley PA 01/01/2022 eCW [facility] Documentation [facility] DATA CONVERSION LEGACY 12/18/2021 eCW [facility] Documentation [facility] DATA CONVERSION LEGACY 12/01/2021 eCW [facility] Documentation [facility] DATA CONVERSION LEGACY 12/01/2021 [facility] Non Patient Presenting [facility]OM[facility] DATA CONVERSION LEGACY 12/01/2021 [facility] Non Patient Presenting [facility]OM[facility] DATA CONVERSION LEGACY 01/06/2020 [facility] Non Patient Presenting NOM[facility] DATA CONVERSION LEGACY Patria Willams NP 01/19/2019 [facility] Non Patient Presenting [facility]OM[facility] DATA CONVERSION LEGACY Magda Slade MD 07/27/2018 [facility] Non Patient Presenting NOMS DATA CONVERSION LEGACY Magda Slade MD 07/27/2018 [facility] Non Patient Presenting NOMS DATA CONVERSION LEGACY Magda Slade MD 07/04/2018 [facility] Non Patient Presenting NOMS DATA CONVERSION Magda Davenport MD 05/05/2018 [facility] Non Patient Presenting NOMS DATA CONVERSION Magda Davenport MD 04/25/2018 [facility] Non Patient Presenting NOMS DATA CONVERSION Magda Davenport MD 03/27/2018 [facility] Non Patient Presenting NOMS DATA CONVERSION Magda Davenport MD 03/18/2018 [facility] Non Patient Presenting NOMS DATA CONVERSION LEGMagda Coffman MD 03/13/2018 eCW [facility] Documentation NOMS DATA CONVERSION LEGACY 03/13/2018 [facility]OM[facility] DATA CONVERSION LEGACY Magda Slade MD 02/27/2018 [facility] Non Patient Presenting NOMS DATA CONVERSION LEGACY Magda Slade MD 01/15/2018 [facility] Non Patient Presenting NOMS DATA CONVERSION LEGMagda Coffman MD 01/15/2018 [facility] Non Patient Presenting NOMS DATA CONVERSION LEGMagda Coffman MD 01/15/2018 [facility] Non Patient Presenting NOMS DATA CONVERSION LEGACY Magda Slade MD 11/27/2017 [facility] Non Patient Presenting NOMS DATA CONVERSION LEGACY Magda Slade MD 11/26/2017 [facility] Non Patient Presenting NOMS DATA CONVERSION LEGACY Magda Slade MD 10/09/2017 [facility] Non Patient Presenting NOMS DATA CONVERSION LEGACY Magda Slade MD 08/30/2017 eCW [facility] Documentation NOMS DATA CONVERSION LEGACY 08/23/2017 eCW [facility] Documentation NOMS DATA CONVERSION LEGACY 08/21/2017 [facility] Non Patient Presenting NOMS DATA CONVERSION LEGACY Magda Slade MD 08/01/2017 [facility] Non Patient Presenting NOMS DATA CONVERSION LEGACY Magda Slade MD Abnormal findings on diagnostic imaging of other parts of musculoskeletal system 07/30/2017 eCW [facility] Documentation NOMS DATA CONVERSION LEGACY 07/30/2017 [facility] NOMS DATA CONVERSION LEGACY Andrea Greene MD Lumbago with sciatica, left side 05/07/2017 [facility] Non Patient Presenting NOMS DATA CONVERSION LEGMagda Coffman MD 04/25/2017 [facility] NOM[facility] DATA CONVERSION LEGACY Andrea Greene MD Pain in left knee 04/12/2017 [facility] Non Patient Presenting NOMS DATA CONVERSION LEGACY Magda Slade MD Essential (primary) hypertension ; Other specified congenital deformities of feet 04/09/2017 [facility] Non Patient Presenting NOMS DATA CONVERSION LEGACY Magda Slade MD 03/26/2017 eCW [facility] Documentation NOMS DATA CONVERSION LEGACY 03/21/2017 eCW [facility] Documentation NOMS DATA CONVERSION LEGACY 03/11/2017 [facility] Non Patient Presenting NOMS DATA CONVERSION LEGACY Magda Slade MD Benign prostatic hyperplasia without lower urinary tract symptoms Social History Smoking Status as of 10/20/2024 Tobacco Use Types Packs/Day Years Used Date Smoking Tobacco: Never Assessed Sex and Gender Information Value Date Recorded Sex Assigned at Not on file Legal Sex Male 8:00 PM EDT Gender Identity Not on file Sexual Orientation Not on file Last Filed Vital Signs Vital Sign Reading Time Taken Comments Blood Pressure 120/70 11/26/2017 12:00 PM EDT Pulse - - Temperature - - Respiratory Rate - - Oxygen Saturation - - Inhaled Oxygen Concentration - - Weight 117 kg (257 lb) 01/01/2022 12:00 PM EDT Height 185.4 cm (6' 1 ) 01/01/2022 12:00 PM EDT Body Mass Index 33.91 01/01/2022 12:00 PM EDT Plan of Treatment Not on file Procedures Procedure Name Priority Date/Time Associated Diagnosis Comments XR FOOT 3+ VIEWS LEFT Routine 12/27/2021 12:00 PM EDT Pain in left foot Other specified soft tissue disorders XR FOOT 3+ VIEWS LEFT Routine 12/25/2021 12:00 PM EDT Pain in left foot Other specified soft tissue disorders MRI FOOT LT WO CON Routine 12/18/2021 Pain in left foot Other specified soft tissue disorders XR CHEST 2 VIEWS Routine 03/13/2018 X RAY : ANKLE, LEFT 3V Routine 10/03/2017 12:00 PM EDT Flat foot (pes planus) (acquired), left foot Pain in left ankle and joints of left foot Secondary osteoarthritis, 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 X RAY : FOOT, LEFT 2V Routine 10/03/2017 12:00 PM EDT Flat foot (pes planus) (acquired), left foot Pain in left ankle and joints of left foot Secondary osteoarthritis, 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 MR LUMBAR SPINE WO CONTRAST Routine 07/17/2017 12:00 PM EDT Other chronic pain Lumbago with sciatica, right side Lumbago with sciatica, left side Tobacco use Encounter for general adult medical examination without abnormal findings Essential (primary) hypertension Episodic tension-type headache, intractable Unspecified acquired deformity of left lower leg XR KNEE 3 VIEWS LEFT Routine 04/25/2017 Pain in left knee X RAY : ELBOW, LEFT Routine 04/04/2017 1 2:00 PM EST Lateral epicondylitis, left elbow Results * XR foot 3+ views left (12/27/2021 12:00 PM EDT) Only the most recent of2 resultswithin the time period is included. Anatomical Region Laterality Modality Lower Extremities, Foot Left Radiogra phic Imaging 12/27/2021 12:0 0 PM EDT Narrative 12/27/2021 12:00 PM EDT PERFORMED AT [facility] LOCATION:[id number] Procedure Note CONVERSION, GENERIC - 07/18/2022 PERFORMED AT [facility] LOCATION:[id number] us Romero BATES IMG XR PROCEDURES Final Resul t * MRI FOOT LT WO CON (12/18/2021) Anatomical Region Laterality Modality Radiographic Eufemia ging 12/18/2021 Narrative 12/28/2021 12:00 AM EDT PERFORMED AT [facility] LOCATION:[place] 112 150 EXAM: MRI FOOT LT WO CON REASON FOR EXAM: Disorder of soft tissue. TECHNIQUE: Multiplanar multisequence imaging of the left foot was performed without contrast COMPARISON: None. FINDINGS: There is focal intense bone marrow edema involving the fourth metatarsal base. On the sagittal images there is some linear incomplete T1 hypointense signal. Findings could reflect a nondisplaced fracture potentially comminuted. There is mild periosteal edema. [...] grossly intact. No definite evidence of ligamentous injury although study not tailored for this purpose. The Lisfranc ligament is intact. Nonspecific subcutaneous edema about the lower extremity. IMPRESSION: 1. Focal intense marrow edema involving the fourth metatarsal base this could represent a nondisplaced fracture. Correlation with plain radiograph could be of benefit. 2. Moderate mid and hindfoot osteoarthritis as described. 3. Moderate osteoarthritis of the first MTP joint. 4. No evidence of ligamentous or tendinous injury. Electronically authenticated by: RAJIV PEACOCK Date: 2022-01-01 08:53 Procedure Note CONVERSION, GENERIC - 07/19/2022 PERFORMED AT [facility] LOCATION:[place] 112 150 EXAM: MRI FOOT LT WO CON REASON FOR EXAM: Disorder of soft tissue. TECHNIQUE: Multiplanar multisequence imaging of the left foot was performed without contrast COMPARISON: None. FINDINGS: There is focal intense bone marrow edema involving the fourth metatarsalbase. On the sagittal images there is some linear incomplete T1 hypointense signal. Findings could reflect a nondisplaced fracture potentially comminuted. There is mild periosteal edema. The remaining bone marrow signal is withoutfracture or osteonecrosis. Moderate midfoot osteoarthritis most notably at thetalonavicular joint. There are also degenerative cystic changes and edema at the angleof Gissane. Moderate osteoarthritis of the first MTP joint. The visualizedtalar dome is congruent. The subtalar joints intact. The sinus tarsi isnarrowed without significant edema. The plantar musculature demonstrates normalbulk and signal. The visualized ankle tendons are grossly intact. No definite evidence of ligamentous injury although study not tailored for this purpose. The Lisfranc ligament is intact. Nonspecific subcutaneous edema about the lowerextremity. IMPRESSION: 1. Focal intense marrow edema involving the fourth metatarsal base this could represent a nondisplaced fracture. Correlation with plain radiograph couldbe of benefit. 2. Moderate mid and hindfoot osteoarthritis as described. 3. Moderate osteoarthritis of the first MTP joint. 4. No evidence of ligamentous or tendinous injury. Electronically authenticated by: RAJIV PEACOCK Date: 2022-01-01 08:53 us Romero BATES IMG XR PROCEDURES Final Resul t * XR chest 2 views (03/13/2018) Anatomical Region Laterality Modality Chest Radiographic Eufemia ging 03/13/2018 Narrative 03/13/2018 12:00 AM EST PERFORMED AT [facility] LOCATION:[address] [address] Patient: DALE BELCHER Exam Date: 03/13/2018 : 1965 Gender:M Ordering : ALEIDA RUELAS . Admission #: [id number] Family : Order #: [id number] CLICK HERE TO VIEW EXAM RADIOLOGY REPORT PROCEDURE: RADIOGRAPH CHEST 2 VIEWS COMPARISON: None. INDICATIONS: Acute cough, shortness of breath FINDINGS: LUNGS: No significant pulmonary parenchymal abnormalities. VASCULATURE: No increased pulmonary vasculature. PLEURA: No pneumothorax, effusion, or pleural thickening. CARDIAC: No cardiomegaly or cardiac silhouette abnormality. MEDIASTINUM: No visible mass or adenopathy. BONES: No fracture or visible bone lesion. OTHER: Negative. CONCLUSION: No acute disease. Dictated by: Geo Vargas M.D. on 03/13/2018 at 14:03 Approved by: Geo Vargas M.D. on 03/13/2018 at 14:04 Procedure Note CONVERSION, GENERIC - 07/18/2022 PERFORMED AT [facility] LOCATION:[address] [address] Patient: DALE BELCHER Exam Date: 03/13/2018 : 1965 Gender:M Ordering : ALEIDA RUELAS . Admission #: [id number] Family : Order #: [id number] CLICK HERE TO VIEW EXAM RADIOLOGY REPORT PROCEDURE: RADIOGRAPH CHEST 2 VIEWS COMPARISON: None. INDICATIONS: Acute cough, shortness of breath FINDINGS: LUNGS: No significant pulmonary parenchymal abnormalities. VASCULATURE: No increased pulmonary vasculature. PLEURA: No pneumothorax, effusion, or pleural thickening. CARDIAC: No cardiomegaly or cardiac silhouette abnormality. MEDIASTINUM: No visible mass or adenopathy. BONES: No fracture or visible bone lesion. OTHER: Negative. CONCLUSION: No acute disease. Dictated by: Geo Vargas M.D. on 03/13/2018 at 14:03 Approved by: Geo Vargas M.D. on 03/13/2018 at 14:04 us Magda Slade MD IMG XR PROCEDURES Final Result * X RAY : FOOT, LEFT 2V (10/03/2017 12:00 PM EDT) Anatomical Region Laterality Modality Radiographic Eufemia ging 10/03/2017 12:0 0 PM EDT Narrative 10/03/2017 12:00 PM EDT PERFORMED AT [facility] LOCATION:[id number] Procedure Note CONVERSION, GENERIC - 07/18/2022 PERFORMED AT [facility] LOCATION:[id number] us Danny Conklin MD IMG XR PROCEDURES Final Re sult * X RAY : ANKLE, LEFT 3V (10/03/2017 12:00 PM EDT) Anatomical Region Laterality Modality Radiographic Eufemia ging 10/03/2017 12:0 0 PM EDT Narrative 10/03/2017 12:00 PM EDT PERFORMED AT [facility] LOCATION:[id number] Procedure Note CONVERSION, GENERIC - 07/18/2022 PERFORMED AT [facility] LOCATION:[id number] us Danny Conklin MD IMG XR PROCEDURES Final Re sult * MR lumbar spine wo contrast (07/17/2017 12:00 PM EDT) Anatomical Region Laterality Modality Spine, L-spine Magnetic Resonan ce 07/17/2017 12:0 0 PM EDT Narrative 07/17/2017 12:00 PM EDT PERFORMED AT [facility] LOCATION:[id number] Procedure Note CONVERSION, GENERIC - 07/18/2022 PERFORMED AT [facility] LOCATION:[id number] us Magda Slade MD IMG MRI PROCEDURES Final Result * XR knee 3 views left (04/25/2017) Anatomical Region Laterality Modality Lower Extremities, Knee Left Radiogra phic Imaging 04/25/2017 Narrative 04/25/2017 12:00 AM EST PERFORMED AT [facility] LOCATION:[place] [address] Procedure Note CONVERSION, GENERIC - 07/18/2022 PERFORMED AT [facility] LOCATION:[place] [address] Paulina Dillard NP IMG XR PROCEDURES Final Result * X RAY : ELBOW, LEFT (04/04/2017 12:00 PM EST) Anatomical Region Laterality Modality Radiographic Eufemia ging 04/04/2017 12:0 0 PM EST Narrative 04/04/2017 12:00 PM EST PERFORMED AT [facility] LOCATION:[id number] Procedure Note CONVERSION, GENERIC - 07/18/2022 PERFORMED AT [facility] LOCATION:[id number] Nasir Odell IMG XR PROCEDURES Final Result Visit Diagnoses Diagnosis Start Date Benign prostatic hyperplasia without lower urinary tract symptoms 03/11/2017 Essential (primary) hypertension Unspecified essential hypertension 04/12/2017 Other specified congenital deformities of feet 04/12/2017 Pain in left knee 04/25/2017 Lumbago with sciatica, left side 07/30/2017 Abnormal findings on diagnostic imaging of other parts of musculoskeletal system 08/01/2017
--- OUTSIDE RECORDS SUMMARY | 2024-10-20 10:29 | XMS_ITS | Clinical Summary ---
Author Organization [facility] Address [address], [address] [place] [address] Care Team Providers Care Immigration Officer Name Role Phone Kash Killian MD Primary Care Provider + Allergies No known active allergies Medications rizatriptan (MAXALT) 10 MG tablet Take 1 tablet by mouth once as needed for Migraine May repeat in 2 hours if needed 9 tablet 1 10/30/2018 Active cyclobenzaprine (FLEXERIL) 10 MG tablet Take 1 tablet by mouth 2 times daily as needed for Muscle spasms 30 tablet 01/06/2020 Active rOPINIRole (REQUIP) 1 MG tablet TAKE 1 TABLET BY MOUTH EVERY DAY 90 tablet 03/15/2020 Active lisinopril-hydr oCHLOROthiazide (PRINZIDE;ZESTO RETIC) 20-12.5 MG per tablet TAKE 1 TABLET BY MOUTH EVERY DAY 90 tablet 1 05/20/2020 Active albuterol sulfate HFA (VENTOLIN HFA) 108 (90 Base) MCG/ACT inhaler Inhale 2 puffs into the lungs 4 times daily as needed for Wheezing 1 Inhaler 06/14/2020 Active divalproex (DEPAKOTE) [address] tablet TAKE 1 TABLET BY MOUTH TWICE A DAY 180 tablet 08/30/2020 Active Active Problems Problem Noted Date Diagnosed Date Acute upper respiratory infection, unspecified 0 03/17/2018 Nicotine dependence, cigarettes, uncomplicated 0 03/17/2018 Resolved Problems Problem Noted Date Diagnosed Date Resolved Date Cough 03/13/2018 11/05/2019 Immunizations Immunization Administration Dates Next Due Influenza Virus Vaccine 01/21/2019 Influenza, AFLURIA (age 3 y+ ), FLUZONE, (age 6 mo+), Quadv MDV, 0.5mL 01/21/2019 Influenza, FLUARIX, FLULAVAL , FLUZONE (age 6 mo+) and AFLURIA, (age 3 y+), Quadv PF, 0.5mL 12/02/2016 Family History Medical History Relation Name Comments COPD Father Heart Failure Father Cancer Mother Relation Name Status Comments Father Mother BREAST CANCER Social History Tobacco Use Types Packs/Day Years Used Date Smoking Tobacco: Every Day Cigarettes 1.5 40 Smokeless Tobacco: Never Tobacco Cessation:Ready to Q uit: Yes; Counseling Given: Yes Alcohol Use Standard Drinks/Week Comments Yes 1 (1 standard drink = 0.6 oz pur e alcohol) very rare PHQ-2 Answer Date Recorded PHQ-9 Total Score 0 04/28/2020 Sex and Gender Information Value Date Recorded Sex Assigned at Not on file Legal Sex Male 10:37 AM EDT Gender Identity Not on file Sexual Orientation Not on file Last Filed Vital Signs Vital Sign Reading Time Taken Comments Blood Pressure 142/92 04/28/2020 3:03 PM EST Pulse 89 04/28/2020 3:03 PM EST Temperature 36.8 C (98.3 F) 04/28/2020 3:03 PM EST Respiratory Rate 16 11/10/2019 1:25 PM EDT Oxygen Saturation 96% 04/28/2020 3:03 PM EST Inhaled Oxygen Concentration - - Weight 124.7 kg (275 lb) 11/10/2019 10:06 AM EDT Height 188 cm (6' 2 ) 11/10/2019 10:06 AM EDT Body Mass Index 35.31 11/10/2019 10:06 AM EDT Plan of Treatment Not on file Insurance [place] [employer] [facility] Care Teams Immigration Officer Relationship Specialty Start Date End Date Kash Killian MD [address] [place] [address] PCP - General Family Medicine 05/03/20
--- OUTSIDE RECORDS SUMMARY | 2024-10-20 10:29 | XMS_ITS | Clinical Summary ---
Author Organization [facility] Address [address] [place] [address] Care Team Providers Care Stocking And Box Shop Supervisor Name Role Phone Unavailable Primary Care Provider Unavailabl e Allergies No known active allergies Medications acetaminophen-co deine (TYLENOL-COD #3) 300-30 mg per tablet Take 1 tablet by mouth twice daily as needed. 04/11/2021 Active aspirin, enteric coated (ASPIRIN, ENTERIC COATED) 81 mg EC tablet Take by mouth q 24 HR. Active atorvastatin (LIPITOR) 80 mg tablet Take 80 mg by mouth once daily. 03/21/[address] (DEPAKOTE) 125 mg EC tablet Take 125 mg by mouth once daily. 02/28/2021 Active lisinopril-hydro CHLOROthiazide (PRINZIDE,ZESTOR ETIC) 20-12.5 mg per tablet Take 1 tablet by mouth once daily. 04/16/2021 Active metoprolol trujillo-hydrochloroth iaz 25-12.5 mg Tb24 Take by mouth. Active nitroglycerin sublingual (NITROQUICK) 0.4 mg SL tablet USE 1 UNDER THE TONGUE EVERY 5 MIN FOR CHEST PAIN. MAX 3 TABS IN 15 MIN. CALL 911 IF PAIN PERSISTS. 02/20/2021 Active BRILINTA 90 mg tablet Take 90 mg by mouth twice daily. 04/17/2021 Active Social History Tobacco Use Types Packs/Day Years [...] Orientation Straight 04/17/2021 10 :20 AM EST Last Filed Vital Signs Vital Sign Reading Time Taken Comments Blood Pressure 148/71 06/06/2021 10:10 AM EDT Pulse 62 06/06/2021 10:10 AM EDT Temperature - - Respiratory Rate 16 06/06/2021 10:10 AM EDT Oxygen Saturation 98% 06/06/2021 10:10 AM EDT Inhaled Oxygen Concentration - - Weight 116.8 kg (257 lb 8 oz) 06/06/2021 10:10 A M EDT Height 188 cm (6' 2 ) 06/06/2021 10:10 AM EDT Body Mass Index 33.06 06/06/2021 10:10 AM EDT Plan of Treatment Health Maintenance Due Date Last Done Comments Anxiety Screening 07/09/1983 Depression Screening 07/09/1983 HIV Screening 07/09/1983 Hepatitis C Screening 07/09/1983 DTaP,Tdap,Td Vaccine (1 - Tdap) 1984 CT Colonography 2010 Cologuard (FIT-DNA) 2010 Colonoscopy 2010 Colorectal Cancer Screening 2010 Fecal Occult Blood 2010 Prostate Cancer Screening Discussion 2010 Sigmoidoscopy 2010 Pneumococcal Vaccine: 50+ (1 of 1 - PCV) 07/09/2015 Shingrix Vaccine (1 of 2) 07/09/2015 Diabetes Screening 01/11/2024 01/10/2021, 0 05/03/2020, 11/02/2019, Additional history exists Influenza Vaccine (#1) 2024 0, 01/21/2019, 01/21/2019, Additional history exists Lipid Screening 05/03/2025 05/03/2020, 11/05/[address] [place] [address] [employer] PPO
--- OUTSIDE RECORDS SUMMARY | 2024-10-20 10:29 | XMS_ITS | Encounter Summary ---
Author Organization [facility] Address [id number] [address] [place] [address] Care Team Providers Care Paraffin Plant Operator Name Role Phone Colten Parra DO Primary Care Provider [phone] Encounter Details Date Type Department Care Team (Late st Contact Info) Description 01/14/2024 Orders Only [facility] Internal [facility] - Family Medicine [address] [place] [address] Colten Parra DO [address], [place] [address] Social History Tobacco Use Types Packs/Day Years [...] before we got money to buy more. Sometimes True 024 Within the past 12 months th e food we bought just didn't last and we didn't have money to get more. Sometimes True 09/09/2023 Purpose - Life Answer Date Recorded Purpose [...] Visit [facility] [address] [place] [phone] Сергей Lucas MD [address] [place], [place] [id number] documented as of this encounter Goals Goal [...] documented as of this encounter Care Teams Paraffin Plant Operator Relationship Specialty Start Date End Date Colten Parra DO [address] [facility] [place] [address] PCP - General Family Medicine 04/03/22 documented as of this encounter
--- OUTSIDE RECORDS SUMMARY | 2024-10-20 10:29 | XMS_ITS | Encounter Summary ---
Author Organization [email or web address] Address [id number] [address] [place] [address] Care Team Providers Care Store Deli Manager Name Role Phone Colten Parra Primary Care Provider [phone] Encounter Details Date Type Department Care Team (Late st Contact Info) Description 05/18/2024 Refill [facility] - Family Medicine [address] [facility] [place] [address] Berna Díaz CMA Migraine, unspecified, not intractable, without status migrainosus [...] encounter Miscellaneous Notes * Telephone Encounter - Berna Díaz CMA - 05/18/2024 10:06 AM EDT Pt called and states he will be going [facility] medications. He does need a refill on Depakote. [facility]. * Telephone Encounter - Colten Parra DO - 05/18/2024 10:06 AM EDT Rx sent in. He is due for a wellness anytime * Telephone Encounter - Berna Díaz CMA - 05/18/2024 10:06 AM EDT Scheduled. New insurance starts in August documented in this encounter Plan of Treatment Upcoming Encounters Date Type Department Care Team (Late st Contact Info) Description 11/18/2024 2:15 PM EDT Office Visit [facility] [address] [place] [phone] Сергей Lucas MD [address] [place] [phone] documented as of this encounter Goals [...] documented as of this encounter Care Teams Store Deli Manager Relationship Specialty Start Date End Date Colten Parra DO [address] [place] [address] PCP - General Family Medicine 04/03/22 documented as of this encounter
--- OUTSIDE RECORDS SUMMARY | 2024-10-20 10:29 | XMS_ITS | Encounter Summary ---
Author Organization [facility] Address [id number] [address] [place] [address] Care Team Providers Care Gold Leaf Roller Name Role Phone Colten Parra Primary Care Provider [phone] Encounter Details Date Type Department Care Team (Late Contact Info) Description 01/10/2024 [facility] - Family Medicine [address] [place] [address] Ref Prov, [place] [address] Social History Tobacco Use Types Packs/Day Years [...] Visit [facility] [address] [place] [address] Сергей Lucas MD [address] [place] [address] documented as of this encounter Goals Goal Patient Goal Type Associated Problems Recent Progress Patient-Stated? Author safe discharge ot home General Yes Simran Mallory, RN Note: Evaluation of progress towards goal: safe transition to home with support of pt's and resumption with outpatient PT. documented as of this encounter Procedures Procedure Name Priority Date/Time Associated Diagnosis Comments CBC W AUTO DIFF BLD Routine 01/09/2024 9:35 AM EST documented in this encounter Results * CBC W Auto Diff Bld (01/09/2024 9:35 AM EST) us Not In System Ref Prov LAB BLOOD ORDERABLES Sarah l Result MANUALLY TRANSCRIBED RESULTS documented in this encounter Visit Diagnoses Not on filedocumented in this encounter Additional Health Concerns Assessment Noted Time PHQ-9 Depression Total Score: 6 08/05/19 24 2:49 PM EDT documented as of this encounter Care Teams Gold Leaf Roller Relationship Specialty Start Date End Date Colten Parra DO [address], [facility] [place] [address] PCP - General Family Medicine 04/03/22 documented as of this encounter
--- OUTSIDE RECORDS SUMMARY | 2024-10-20 10:29 | XMS_ITS | Clinical Summary ---
Author Organization [facility] Address [address] [place] [address] Care Team Providers Care Mortgage Loan Underwriter Name Role Phone Colten Parra DO Primary Care Provider [phone] Allergies No known active allergies Medications atorvastatin (Lipitor) 80 mg tablet Take 80 mg by mouth in the morning. 03/09/2022 Active HYDROcodone-william taminophen ([place]) 5-325 mg tablet Take 1 tablet by mouth if needed in the morning and at bedtime. 04/18/2022 Active divalproex (Depakote) 125 mg EC tablet Take 125 mg by mouth in the morning. 02/22/2022 Active lisinopriL-hydr ochlorothiazide 20-12.5 mg tablet Take 1 tablet by mouth in the morning. 04/04/2022 Active methylPREDNISol one (Medrol Dospak) 4 mg tablets TAKE 6 TABLETS ON DAY 1 DIRECTED ON PACKAGE AND DECREASE BY 1 TAB EACH DAY FOR A TOTAL OF 6 DAYS 05/04/2022 Active metoprolol tartrate (Lopressor) 25 mg tablet TAKE 1 TABLET (25 MG TOTAL) BY MOUTH IN THE MORNING AND AT BEDTIME. 02/22/2022 Active tiZANidine (Zanaflex) 4 mg capsule TAKE 1 CAPSULE EVERY DAY AT BEDTIME NEEDED 04/15/2022 Active apixaban (Eliquis) 5 mg tablet Take 5 mg by mouth in the morning and at bedtime. Active aspirin 81 mg EC tablet Take 81 mg by mouth in the morning. Active apixaban (Eliquis) 5 mg tabletIndicatio ns:History of DVT (deep vein thrombosis) Take 1 tablet (5 mg) by mouth in the morning and at bedtime. 60 tablet 3 05/08/2022 Active Active Problems Problem Noted Date Diagnosed Date Cellulitis of right leg 03/24/2022 Primary hypertension 03/24/2022 Right leg pain 03/24/2022 Acute upper respiratory infection, unspecified 0 03/17/2018 Nicotine dependence, cigarettes, uncomplicated 0 03/17/2018 Social History Tobacco Use Types Packs/Day Years Used Date Smoking Tobacco: Every Day Cigarettes 1 40 Smokeless Tobacco: Never Tobacco Cessation:Ready to Q uit: Not Asked; Counseling Given: Not Answered Alcohol Use Standard Drinks/Week Comments Yes 0 (1 standard drink = 0.6 oz pur e alcohol) [place] Safety & Environment Answer Date Rec orded Fear of Current or Ex-Partner Not on file Emotionally Abused Not on file 04/25/2023 Physically Abused Not on file 04/25/2023 Sexually Abused Not on file 04/25/2023 Physically or Sexually Abused Not on file Sex and Gender Information Value Date Recorded Sex Assigned at Not on file Legal Sex Male 2:26 PM EST Gender Identity Not on file Sexual Orientation Not on file Last Filed Vital Signs Vital Sign Reading Time Taken Comments Blood Pressure 134/79 05/08/2022 2:29 PM EST Pulse 80 05/08/2022 2:29 PM EST Temperature - - Respiratory Rate - - Oxygen Saturation 96% 05/08/2022 2:29 PM EST Inhaled Oxygen Concentration - - Weight 113 kg (250 lb) 05/08/2022 2:29 PM EST Height 188 cm (6' 2 ) 05/08/2022 2:29 PM EST Body Mass Index 32.1 05/08/2022 2:29 PM EST Plan of Treatment Health Maintenance Due Date Last Done Comments CT Colonography 1965 Colonoscopy 1965 FIT-DNA 1965 FOBT 1965 Sigmoidoscopy 1965 Depression Screening 1977 Hepatitis B Vaccines (1 of 3 - 19+ 3-dose series) 1984 Pneumococcal Vaccine: Pediatrics (0 to 5 Years) and At-Risk Patients (6 to 64 Years) (1 of 2 - PCV) 1984 Adult Tetanus 07/09/1987 Zoster Vaccines (1 of 2) 07/09/2015 Colorectal Cancer Screening 06/22/2023 FIT 06/22/2023 06/21/2022 COVID-19 Vaccine ( season) 2023 Influenza Vaccine (#1) 2024 0, 01/21/2019, 01/02/2019, Additional history exists HIB Vaccines Aged Out No longer eligi ble based on patient's age to complete this topic HPV Vaccines Aged Out No longer eligi ble based on patient's age to complete this topic IPV Vaccines Aged Out No longer eligi ble based on patient's age to complete this topic Meningococcal B Vaccine Aged Out No l onger eligible based on patient's age to complete this topic Meningococcal Vaccine Aged Out No carole domenic eligible based on patient's age to complete this topic Rotavirus Vaccines Aged Out No longer eligible based on patient's age to complete this topic Insurance [facility] Care Teams Mortgage Loan Underwriter Relationship Specialty Start Date End Date Fidel DO Colten PCP - General 05/08/22
--- OUTSIDE RECORDS SUMMARY | 2024-10-20 10:29 | XMS_ITS | Encounter Summary ---
Author Organization [facility] Address [address], [address] [place] [address] Care Team Providers Care Diagnostic Technologist Name Role Phone Kash Killian MD Primary Care Provider + Reason for Visit * Reason Comments Medication Refill Encounter Details Date Type Department Care Team (Late st Contact Info) Description 01/21/2019 Refill [facility] [address] [place] [phone] Kash Killian MD [address] [place] [id number] Medication Refill Social History Tobacco Use Types Packs/Day Years Used Date Smoking Tobacco: Every Day Cigarettes 1.5 40 Smokeless Tobacco: Never Alcohol Use Standard Drinks/Week Comments Yes 1 (1 standard drink = 0.6 oz pur e alcohol) PHQ-2 Answer Date Recorded PHQ-2 Score 0 10/14/2018 Sex and Gender Information Value Date Recorded Sex Assigned at Not on file Legal Sex Male 10:37 AM EDT Gender Identity Not on file Sexual Orientation Not on file documented as of this encounter Plan of Treatment Not on file documented as of this encounter Visit Diagnoses Not on filedocumented in this encounter Additional Health Concerns Infection Onset Date Last Indicated Resolved Time COVID-19 (Rule Out) 11/06/2019 11/06/2019 11/09/19 20 1:07 AM EDT documented as of this encounter Care Teams Diagnostic Technologist Relationship Specialty Start Date End Date Kash Killian MD [address] [place] [address] PCP - General Family Medicine 05/03/20 documented as of this encounter
--- OUTSIDE RECORDS SUMMARY | 2024-10-20 13:18 | XMS_ITS | CCD ---
Author Organization [facility] ion Partnership [facility] Care Team Providers Care Head Machinist Name Role Phone Ros Cagled Paulina Primary Care Provider [phone] KASH GRIER Referring Unavailabl e GURJIT, SHIVAPRASAD [...] K Primary Care Unavailabl e KATHY GRIERNA M Referring Unavailabl e GURJIT, SHIVAPRASAD K Primary [...] Care Unavailable MALDONADO ., MYRIAM Consulting Unavailable AWDA ., DR COMPA Vo Attending Unavailable AWAD [...] MYRIAM ANDERSON Unavailable WINIFRED BORGES Attending Unavailable JULIENNE, HUNTER L Referring Unavailable FURLONG, COLTEN G Primary Care Unavailable DEBORAH JERONIMO Attending Unavailable JULIENNE, HUNTER L Referring Unavailable FURLONG, COLTEN G Primary Care Unavailable FURLONG, COLTEN G Referring Unavailable FURLONG, COLTEN G Primary Care Unavailable JULIENNE, HUNTER L Attending Unavailable FURLONG, COLTEN G Referring Unavailable FURLONG, COLTEN G Primary Care Unavailable MAGDA CRUZ Attending Unavailable FURLONG, COLTEN G Referring Unavailable FURLONG, COLTEN G Primary Care Unavailable DEBORAH JERONIOM Attending Unavailable FURLONG, COLTEN G Referring Unavailable FURLONG, COLTEN G Primary Care Unavailable FURLONG, COLTEN G Referring Unavailable FURLONG, COLTEN G Primary Care Unavailable JENAE SAMUELS Attending Unavailable Furlong DO Colten Maldonadoard Primary Care Provider Furlong DO, Colten Maldonadoard Primary Care Provider Marge GARCIA, Antonio Rodriguez Primary Care Unavailable Néstor GARCIA, Christina Portillo Attending Unavailable Néstor GARCIA, Christina Portillo Attending Unavailable Antonio Bird MD Micheal Primary Care Unavailable Néstor GARCIA, Christina Portillo Attending Unavailable Antonio Bird MD Primary Care Unavailable Furlong DO, Colten G Primary Care Provider BETTEZAFARNG, COLTEN G Referring Unavailable FURLONG, COLTEN G Primary Care Unavailable DEBORAH JERONIMO Admitting Unavailable DEBORAH JERONIMO Attending Unavailable DEBORAH JERONIMO Referring Unavailable FURLONG, COLTEN G Primary Care Unavailable FURLONG, COLTEN G Primary Care Unavailable GUICHO MULLIGAN Referring Unavailable ZAINAB MARSHALL Referring Unavailable FURLONG, COLTEN G Primary Care Unavailable FURLONG, COLTEN G Referring Unavailable FURLONG, COLTEN G Primary Care Unavailable ZAINAB MARSHALL Admitting Unavailable ZAINAB MARSHALL Attending Unavailable FURLONG, COLTEN G Primary Care Unavailable ZAINAB MARSHALL Referring Unavailable FURLONG, COLTEN G Primary Care Unavailable ZAINAB MARSHALL Referring Unavailable FURLONG, COLTEN Andrade Primary Care Unavailable ZAINAB MARSHALL Referring Unavailable FURLONG, COLTEN G Primary Care Unavailable STACYRACHEL Referring Unavailable FURLONG, COLTEN G Primary Care Unavailable Colten Gordon DO Primary Care Provider Colten Gordon DO Primary Care Provider [phone] Elisang Colten CARR Primary Care Provider [phone] Kamila Chan APRN Attending Provider Arabella Morrissey Admitting Unavailable Arabella Morrissey Attending Unavailable Fidel, Colten Primary Care Unavailable Kamila Chan Attending Unavailable Fidel, Colten Primary Care Unavailable Kamila Chan Admitting Unavailable Allergies Allergy Classification Reported Allergen(s) Allergy Type Date of Onset Reaction(s) Facility (20 sources) Amoxicillin; Translations: [AMOXICILLIN] Drug Allergy 4 Nausea/vomiting, Vomiting [facility] (20 sources) predniSONE; Translations: [PREDNISONE] Drug Allergy 4 Palpitations [facility] (11 sources) Isosorbide; Translations: [ISOSORBIDE MONONITRATE] Drug Allergy 4 [facility] Work Phone: (10 sources) fentaNYL; Translations: [FENTANYL] Drug Allergy 4 GI Disturbance [facility] (3 sources) Isosorbide; Translations: [isosorbide] Drug Allergy 5 [facility] (1 source) fentaNYL Drug Allergy 5 [facility] Repository Medications Current Medications Medication Drug Class(es) Dates Sig (Normalized) Sig (Original) acetaminophen 325 mg / HYDROcodone bitartrate 5 mg oral tablet (20 sources) Opioid Agonist Start: 03-15-2022 take 1 tablet by mouth twice daily as needed for pain Start: 11-10-2019 End: 11-15-2019 take 1 tablet [...] pain 30 tablet 0 11/10/2019 11/15/2019 Active [place] 5-325 MG T ABS TAKE 1 TABLET EVERY 12 HOURS NEEDED. Quantity: 0 Refills: 0 Ordered: 26-Nov-2022 DO Active albuterol 0.83 mg/ml inhalation solution (12 sources) beta2-Adrenergic Agonist Start: 12-06-2023 take 3 mL by inhalation four times daily albuterol (PROVENTIL,VENTOLIN) 2.5 mg /3 mL (0.083 %) nebulizer solution Indications: Acute bronchitis, unspecified organism Inhale 3 mL (2.5 mg total) by nebulization 4 (four) times a day. 75 mL 1 12/06/2023 Active Start: 11-12-2020 take 1 puff(s) by in halation every four hours as needed Albuterol Sulfate HFA 108 (90 Base) MCG/ACT Inhalation Aerosol Solution INHALE 1 PUFF EVERY 4 HOURS NEEDED. Quantity: 0 Refills: 0 Ordered: 13-Nov-2020 DO Start : 12-Nov-2020 Active amoxicillin 875 mg / clavulanate 125 mg oral tablet (3 sources) Penicillin-class Antibacterial Start: 08-05-2023 End: 08-12-2023 take 1 tablet by mouth once in the morning amoxicillin-pot clavulanate (AUGMENTIN) 875-125 mg per tablet Take 1 tablet by mouth in the morning and 1 tablet before bedtime. Do all this for 7 days. 14 tablet 08/05/2023 08/12/2023 Active aspirin 81 mg delayed release oral tablet (20 sources) Platelet Aggregation Inhibitor, Nonsteroidal Anti-inflammatory Drug Start: 12-13-2023 End: 12-12-2024 take 1 tablet by mouth once daily aspirin, enteric coated (ASPIRIN, ENTERIC COATED) 81 mg EC tablet Take by mouth q 24 HR. 0 Active Comment on above: Take by mouth q 24 H R. atorvastatin 80 mg oral tablet (20 sources) HMG-CoA Reductase Inhibitor Start: 11-30-19 End: 08-22-19 take 1 tablet by mouth once daily Comment on above: Take 80 mg by mouth once daily. azithromycin 250 mg oral tablet (2 sources) Macrolide Antimicrobial Start: 08-06-19 End: 08-11-19 take 1 tablet by mouth in the morning, then take 2 tablets by mouth once daily, then take 1 tablet by mouth once daily azithromycin (ZITHROMAX) 250 mg tablet Take 1 tablet (250 mg total) by mouth in the morning for 5 days. Take 2 tablets the first day, then 1 tablet daily for 4 days.. 6 tablet 08/06/2023 08/11/2023 Active calcium chloride 0.0014 meq/ml / potassium chloride 0.004 meq/ml / sodium chloride 0.103 meq/ml / sodium lactate 0.028 meq/ml injectable solution (1 source) Start: 11-10-19 lactated ringers infusion cyclobenzaprine hydrochloride 10 mg oral tablet (16 sources) Muscle Relaxant Start: 10-07-19 take 1 tablet by mouth three times daily Start: 05-21-2024 take 1 tablet by francesco three times daily cyclobenzaprine (Flexeril) 10 mg tablet Take 1 tablet (10 mg) by mouth 3 times a day. 05/21/2024 Active Start: 01-06-2020 take 1 tablet by francesco th twice [...] 10-13-2018 cyclobenzaprin e (FLEXERIL) 10 MG tablet dextromethorphan hydrobromide 2 mg/ml / guaiFENesin 20 mg/ml oral solution (10 sources) Uncompetitive N-rtwzes-R-aspartate Receptor Antagonist, Sigma-1 Agonist Start: 12-06-2023 dextromethorphan-guaiFENesin (ROBITUSSIN-DM) 10-100 mg/5 mL liquid Indications: Acute bronchitis, unspecified organism Take 5 mL by mouth every 12 (twelve) hours. 236 mL 12/06/2023 Active 1 ml diphenhydrAMINE hydrochloride 50 mg/ml cartridge (1 source) Histamine-1 Receptor Antagonist Start: 11-10-2019 End: 11-10-2019 diphenhydrAMINE (BENADRYL) injection 12.5 mg 2 ml fentaNYL 0.05 mg/ml injection (2 sources) Opioid Agonist Start: 11-10-2019 fentaNYL (SUBLIMAZE) injecti on 25 mcg Start: 11-10-2019 fentaNYL (SUBL IMAZE) injection 50 mcg finasteride 5 mg oral tablet (20 sources) 5-alpha Reductase Inhibitor Start: 09-09-2023 End: 03-18-2024 take 1 tablet by mouth once daily 1 ml hydrALAZINE hydrochloride 20 mg/ml injection (1 source) Arteriolar Vasodilator Start: 11-10-2019 hydrALAZINE (APRESOLINE) injection 5 mg hydroCHLOROthiazide 12.5 mg / lisinopril 20 mg oral tablet (20 sources) Thiazide Diuretic, Angiotensin Converting Enzyme Inhibitor Start: 05-20-2020 take 1 tablet by mouth once in the morning lisinopril-hydro CHLOROthiazide (PRINZIDE,ZESTOR ETIC) 20-12.5 mg per tablet Take 1 tablet by mouth in the morning. 05/20/2020 Active Start: 10-30-2018 End: 08-21-2025 take 1 tablet by mouth once daily Comment on above: [facility] 1 ml HYDROmorphone hydrochloride 1 mg/ml cartridge (1 source) Opioid Agonist Start: 11-10-19 HYDROmorphone (DILAUDID) injection 0.5 mg ibuprofen 600 mg oral tablet (2 sources) Nonsteroidal Anti-inflammatory Drug ibuprofen (ADVIL;MOTRIN) 600 MG tablet ibuprofen 600 mg tablet 0 Active 4 ml labetalol hydrochloride 5 mg/ml cartridge (1 source) beta-Adrenergic Jaycob Start: 11-10-19 labetalol (NORMODYNE;TRANDATE) injection 5 mg lisinopril 20 mg oral tablet (3 sources) Angiotensin Converting Enzyme Inhibitor Start: 08-22-19 End: 06-20-20 26 take 1 tablet by mouth once daily magnesium gluconate 550 mg oral tablet (2 sources) take 1 tablet by mouth once daily magnesium 30 MG tablet Take 30 mg by mouth daily 0 Active magnesium oxide 400 mg oral tablet (11 sources) Start: 01-09-20 24 take 1 tablet by mouth once daily Start: 01-06-2024 End: 01-05-2025 take 1 tablet by mouth in the morning, then take 1 tablet by mouth at bedtime magnesium oxide (MAGOX) 400 mg tablet Take 1 tablet (400 mg total) by mouth in the morning and 1 tablet (400 mg total) before bedtime. 01/06/2024 01/05/2025 Active 1 ml meperidine hydrochloride 25 mg/ml cartridge (1 source) Opioid Agonist Start: 11-10-2019 meperidine (DEMEROL) injection 12.5 mg 2 ml metoclopramide 5 mg/ml prefilled syringe (1 source) Dopamine-2 Receptor Antagonist Start: 11-10-2019 End: 11-10-2019 metoclopramide (REGLAN) injection 10 mg metoprolol tartrate 50 mg oral tablet (20 sources) beta-Adrenergic Jaycob Start: 01-09-2024 take 1 tablet by mouth once daily Start: 12-13-2023 End: 08-21-2025 take 1 tablet by mouth twice daily metoprolol tartrate (Lopressor) 50 mg tablet Indications: Primary hypertension , Palpitations Take 1 tablet by mouth 2 times a day. 180 tablet 2 03/24/2024 08/21/2024 Discontinued (Reorder) Start: 11-29-2020 End: 12-13-2023 take 1 tablet by mouth at bedtime metoprolol tartrate (LOPRESSOR) 25 mg tablet TAKE 1 TABLET (25 MG) BY MOUTH IN THE MORNING AND AT BEDTIME 180 tablet 1 09/24/2023 Active 1 ml morphine sulfate 2 mg/ml cartridge (1 source) Opioid Agonist Start: 11-10-2019 morphine (PF) injection 2 mg nitroglycerin 0.4 mg sublingual tablet (20 sources) Nitrate Vasodilator Start: 12-13-2023 End: 01-12-2024 Start: 02-20-2021 nitroglycerin sublingual (NITROQUICK) 0.4 mg SL tablet USE 1 UNDER THE TONGUE EVERY 5 MIN FOR CHEST PAIN. MAX 3 TABS IN 15 MIN. CALL 911 IF PAIN PERSISTS. 0 02/20/2021 Active Start: 11-20-2020 End: 08-28-2023 Nitroglycerin 0.4 MG Subling ual Tablet Sublingual DISSOLVE 1 TABLET UNDER THE TONGUE EVERY 5 MINUTES NEEDED FOR CHEST PAIN. MAX OF 3 TABLETS IN 15 MINUTES. CALL 911 IF PAIN PERSISTS. Quantity: 25 Refills: 3 Ordered: 27-Dec-2020 Bernardino GUERRERONKalie DIEZ Start : 22-Nov-2020 Active End: 08-20-2023 nitroglycerin (NITRO-TIME OR AL) Take by mouth. 08/20/2023 Discontinued nitroglycerin (N ITRO-TIME ORAL) Take by mouth. Active nitroglycerin (N ITRO-TIME ORAL) Take by mouth. 0 Active Comment on above: USE 1 UNDER THE TONG UE EVERY 5 MIN FOR CHEST PAIN. MAX 3 TABS IN 15 MIN. CALL 911 IF PAIN PERSISTS. 2 ml ondansetron 2 mg/ml injection (1 source) Serotonin-3 Receptor Antagonist Start: 0 End: 0 ondansetron (ZOFRAN) injection 4 mg potassium chloride 10 meq extended release oral capsule (2 sources) take 1 capsule by mouth once daily, then take 1 capsule by mouth potassium chloride (MICRO-K) 10 MEQ extended release capsule Take 10 mEq by mouth daily 0 Active predniSONE 20 mg oral tablet (4 sources) Start: 4 End: 4 take 2 tablets by mouth in the morning predniSONE (DELTASONE) 20 mg tablet Indications: Acute bronchitis, unspecified organism Take 2 tablets (40 mg total) by mouth in the morning for 5 days. 10 tablet 12/06/2023 12/11/2023 Active Start: 08-05-2023 End: 08-12-2023 take 1 tablet by mouth in the morning predniSONE (DELTASONE) 20 mg tablet Take 1 tablet (20 mg total) by mouth in the morning for 7 days. 7 tablet 08/05/2023 08/12/2023 Active rOPINIRole 1 mg oral tablet (13 [...] BY MOUTH EVERY DAY 3 07/27/2018 Active spironolactone 25 mg oral tablet (3 sources) Aldosterone Antagonist Start: 08-21-2024 End: 08-21-2025 take 1 tablet by mouth once daily tamsulosin hydrochloride 0.4 mg oral capsule (20 sources) alpha-Adrenergic Jaycob Start: 02-05-2024 End: 04-23-2024 take 2 capsules by mouth once daily tamsulosin (FLOMAX) 0.4 mg capsule Take 2 capsules (0.8 mg total) by mouth once daily. 180 capsule 3 04/23/2024 Active Start: 09-09-2023 End: 02-05-2024 take 1 capsule by mouth once daily Start: 11-10-2019 take 1 capsule by mo uth once daily tamsulosin (FLOMAX) 0.4 MG capsule TAKE 1 CAPSULE BY MOUTH EVERY DAY 90 capsule 1 11/10/2019 Active Start: 05-06-2019 take 1 capsule by mo uth once daily tamsulosin (FLOMAX) 0.4 MG capsule TAKE 1 CAPSULE BY MOUTH EVERY DAY 90 capsule 1 05/06/2019 Active Start: 10-09-2018 take 1 capsule by mo uth once daily tamsulosin (FLOMAX) 0.4 MG capsule TAKE 1 CAPSULE BY MOUTH EVERY DAY 0 10/09/2018 Active divalproex sodium 125 mg delayed release oral tablet (20 sources) Mood Stabilizer, Anti-epileptic Agent Start: 09-07-2024 take 1 tablet by mouth once daily in the morning divalproex (DEPAKOTE) 125 mg EC tablet Indications: Migraine, unspecified, not intractable, without status migrainosus Take 1 tablet (125 mg total) by mouth every morning. 90 tablet 09/07/2024 Active Start: 02-28-2021 End: 09-07-2024 take 1 tablet by mouth once daily Start: 04-06-2020 take 1 tablet by francesco [...] Take 125 mg by mouth once daily. zonisamide 100 mg oral capsule (3 sources) Anti-epileptic Agent Start: 10-06-2024 take 1 capsule by mouth three times daily Start: 04-30-2024 take 3 capsules by out twice daily zonisamide (Zonegran) 50 mg capsule Take 3 capsules (150 mg) by mouth 2 times a day. 04/30/2024 Active Completed/Discontinued Medications Medication Drug Class(es) Dates [...] by mouth every twelve hours as needed acetaminophen-code ine (TYLENOL-COD #3) 300-30 mg per tablet Take 1 tablet by mouth twice daily as needed. 0 04/11/2021 Active Comment on above: Take 1 tablet by francesco twice daily as needed. amLODIPine 5 mg oral tablet (12 sources) Dihydropyridine Calcium Channel Jaycob Start: 01-06-2024 End: 02-20-2025 take 1 tablet by mouth once daily Amlodipine 5 mg tablet Discontinued 5 MG PO Daily January 09, 2024 1:00am October 06, 2024 10:07am baclofen 10 mg oral tablet (20 sources) gamma-Aminobutyric Acid-ergic Agonist Start: 09-14-2022 End: 10-06-2024 take 3 tablets by mouth once daily Baclofen 10 mg tablet Discontinued 30 MG PO Daily January 09, 2024 1:00am October 06, 2024 10:09am Start: 09-14-2022 take 1 tablet by francesco th three times daily baclofen (LIORESAL) 10 mg tablet Take 1 tablet (10 mg total) by mouth 3 (three) times a day. 09/14/2022 Active colchicine 0.6 mg oral tablet (6 [...] times daily 10 tablet 1 12/08/2018 Active docusate sodium 50 mg / sennosides, skilled nursing 8.6 mg oral tablet (12 sources) Start: 03-26-2022 End: 08-20-2023 take 2 tablets by mouth once daily sennosides-docusate sodium (SENOKOT-S) 8.6-50 mg Take 2 tablets by mouth nightly. 30 tablet 2 03/26/2022 08/20/2023 Discontinued furosemide 20 mg oral tablet (2 sources) Loop Diuretic Start: 02-21-2024 End: 02-20-2025 take 1 tablet by mouth once daily furosemide (Lasix) 20 mg tablet Indications: Primary hypertension , Shortness of breath Take 1 tablet (20 mg) by mouth once daily. 90 tablet 2 03/24/2024 08/21/2024 Discontinued (Patient Refused) 24 hr hydroCHLOROthiazide 12.5 mg / metoprolol succinate 25 mg extended release oral tablet (2 sources) Thiazide Diuretic, beta-Adrenergic Jaycob metoprolol trujillo-hydrochlorothiaz 25-12.5 mg Tb24 Take by mouth. 0 Active Comment on above: Take by mouth. 24 hr isosorbide mononitrate 30 mg extended release oral tablet (2 sources) Nitrate Vasodilator Start: 12-13-2023 End: 12-12-2024 take 35-35.9 mg by mouth every twenty-four hours isosorbide mononitrate ER (Imdur) 30 mg 24 hr tablet Indications: Hypertension, unspecified type , Atherosclerosis of [place] coronary artery of [place] heart without angina pectoris , Current every day smoker , Other hyperlipidemia , Palpitations , Unstable angina pectoris (Multi) , Sleep apnea with use of continuous positive airway pressure (CPAP) , History of ST elevation myocardial infarction (STEMI) , History of PTCA , Shortness of breath , Acute cough , BMI 35.0-35.9,adult Take 1 tablet (30 mg) by mouth once daily. 90 tablet 3 12/13/2023 01/06/2024 Discontinued (Therapy completed) methylPREDNISolone 4 mg oral tablet (3 sources) Corticosteroid Start: 12-17-2022 End: 05-01-2023 take 1 tablet by mouth in the morning methylPREDNISolone (MEDROL, MAEGAN,) 4 mg tablet Indications: Upper respiratory disease Take 1 tablet (4 mg total) by mouth in the morning. follow package directions. 21 tablet 0 12/17/2022 05/01/2023 Discontinued (Therapy completed) 24 hr nicotine 0.875 mg/hr transdermal system (14 sources) Cholinergic Nicotinic Agonist Start: 03-27-2022 End: 08-21-2023 apply 1 dose transdermal route every hour in the morning nicotine (NICODERM CQ) 21 mg/[address] 1 patch on the skin in the morning. 30 patch 2 03/27/2022 08/21/2023 Discontinued Start: 11-29-2020 apply 1 dose transde rmal route once daily Nicotine 21 MG/24HR Transdermal Patch 24 Hour APPLY 1 PATCH DAILY DIRECTED. Quantity: 0 Refills: 0 Ordered: 15-Dec-2020 DO Start : 29-Nov-2020 Active 24 hr propranolol hydrochloride 80 mg extended release oral capsule (7 sources) beta-Adrenergic Jaycob Start: 01-22-2019 End: 11-02-2019 take 1 capsule by mouth once daily propranolol (INDERAL LA) 80 MG extended release capsule TAKE 1 CAPSULE BY MOUTH EVERY DAY 90 capsule 1 01/22/2019 11/02/2019 Discontinued (Therapy completed) Start: 10-28-2018 take 1 capsule by [facility] once daily propranolol [...] Classification Problem Date Documented Date Episodic/Chronic Acute bronchitis (2 sources) Acute bronchitis, unspecified; Translations: [Acute bronchitis] Onset: 12-06-2023 12-06-2023 Episodic Acute myocardial infarction (6 sources) Myocardial infarction; Translations: [Acute myocardial infarction of other inferior wall, episode of care unspecified] Chronic Adjustment disorders (20 sources) Reactive depression (situational); Translations: [Adjustment disorder with depressed mood] Onset: 12-14-2022 12-14-2022 Chronic Cardiac dysrhythmias (7 sources) Palpitations; Translations: [Palpitations] Onset: 12-13-2023 12-13-2023 Episodic Coronary atherosclerosis and other heart disease (20 sources) Coronary atherosclerosis; Translations: [Coronary atherosclerosis of unspecified type of vessel, [place] or graft] Onset: 04-02-2023 12-13-2023 Chronic Coronary atherosclerosis and other heart disease (2 sources) Stented coronary artery; Translations: [Percutaneous transluminal coronary angioplasty status] Episodic Diseases of white blood cells (20 sources) Band neutrophil count above reference range; Translations: [Bandemia] Onset: 06-21-2022 06-21-2022 Chronic Disorders of lipid metabolism (20 sources) Hyperlipidemia; Translations: [Other and unspecified hyperlipidemia] Onset: 04-02-2023 12-13-2023 Chronic Essential hypertension (20 sources) Essential hypertension; Translations: [Hypertensive disorder] Onset: 03-24-2022 12-13-2023 Chronic Gout and other crystal arthropathies (1 source) Articular gout; Translations: [Gout of foot, unspecified cause, unspecified chronicity, unspecified laterality] Chronic Gout and other crystal arthropathies (1 source) Gouty arthritis of right foot; Translations: [Gouty arthritis of right foot] Headache; including migraine (7 sources) Migraine; Translations: [Migraine, unspecified, not intractable, without status migrainosus] 06-26-2023 Chronic Hyperplasia of prostate (20 sources) Benign prostatic hyperplasia with lower urinary tract symptoms; Translations: [Benign prostatic hyperplasia without lower urinary tract symptoms] Onset: 05-01-2023 03-19-2024 Chronic Joint disorders and dislocations; trauma-related (1 source) Other articular cartilage disorders, unspecified hip; Translations: [Other articular cartilage disorders, unspecified hip] Onset: 01-15-2024 Chronic Other aftercare (6 sources) Treatment changed; Translations: [Other fpc (current) drug therapy] Onset: 01-06-2024 01-06-2024 Episodic Other circulatory disease (1 source) Cardiac function test normal; Translations: [Normal cardiac ejection fraction] Episodic Other circulatory disease (1 source) Other specified symptoms and signs involving the circulatory and respiratory systems; Translations: [Other specified symptoms and signs involving the circulatory and respiratory systems] Onset: 12-06-2023 Episodic Other connective tissue disease (1 source) Other muscle spasm; Translations: [OTHER MUSCLE SPASM] Onset: 06-20-2022 Episodic Other connective tissue disease (20 sources) Pain in right lower limb; Translations: [Pain in right leg] Onset: 03-24-2022 03-24-2022 Episodic Other connective tissue disease (1 source) Pain in right leg; Translations: [Pain in right leg] Onset: 10-14-2024 Episodic Other diseases of kidney and ureters (2 sources) Other obstructive and reflux uropathy; Translations: [Other obstructive and reflux uropathy] Onset: 07-04-2023 Episodic Other lower respiratory disease (2 sources) Cough; Translations: [Acute cough] 12-13-2023 Episodic Other nervous system disorders (1 source) [...] Onset: 07-31-2022 Episodic Other non-traumatic joint disorders (20 sources) Hip pain; Translations: [Pain in left hip] Onset: 12-14-2022 12-14-2022 Episodic Other nutritional; endocrine; and metabolic disorders (11 sources) Obesity; Translations: [Obesity, unspecified] Chronic Other nutritional; endocrine; and metabolic disorders (11 sources) Body mass index 30+ - obesity; Translations: [Body mass index (BMI) 35.0-35.9, adult] Onset: 08-28-2023 12-13-2023 Chronic Other nutritional; endocrine; and metabolic disorders (1 source) Body mass index (BMI) 35.0-35.9, adult; Translations: [Body mass index (BMI) 35.0-35.9, adult] Onset: 12-30-2023 Chronic Residual codes; unclassified (8 sources) Sleep apnea; Translations: [Sleep apnea, unspecified] Onset: 12-13-2023 12-13-2023 Chronic Residual codes; unclassified (1 source) Sleep apnea, unspecified; Translations: [Sleep apnea, unspecified] Onset: 12-30-2023 Chronic Spondylosis; intervertebral disc disorders; other back problems (13 sources) Cervical spondylosis; Translations: [Other spondylosis with myelopathy, cervical region] Onset: 10-26-2021 Chronic Spondylosis; intervertebral disc disorders; other back problems (12 sources) Spinal stenosis in cervical region; Translations: [Spinal stenosis, cervical region] Onset: 01-02-2022 Episodic Substance-related disorders (20 sources) Nicotine dependence; Translations: [...] New Patient Onset: 07-04-2023 Unclassified (1 source) Acute cough; Translations: [Acute cough] Onset: 12-30-2023 Unclassified (1 source) Lower urinary tract symptoms (LUTS) [R39.9] Onset: 08-21-2023 Unclassified (2 sources) M25.552 - Pain in left hip Unclassified (2 sources) M54.16 - Radiculopathy, lumbar region Past or Other Problems Problem Classification Problem Date Documented Da te Episodic/Chronic Administrative/social admission (5 sources) Patient encounter status; Translations: [Person consulting for explanation of examination or test findings] Onset: 01-06-2024 01-07-2024 Episodic Fracture of lower limb (1 source) Displaced fracture of fourth metatarsal bone, left foot, initial encounter for closed fracture; Translations: [DSPL FX 4TH MT BN LT FT INIT CELE FX] Onset: 01-19-2022 Episodic Genitourinary symptoms and ill-defined conditions (20 sources) Lower urinary tract symptoms; Translations: [Unspecified symptoms and signs involving the genitourinary system] Onset: 07-09-2023 07-09-2023 Episodic Malaise and fatigue (4 sources) Fatigue; Translations: [Other fatigue] Onset: 01-06-2024 01-06-2024 Episodic Mood disorders (20 sources) Mood disorders Onset: 05-01-2023 Resolved: 08-05-2023 08-05-2023 Nonspecific chest pain (6 sources) Chest discomfort; Translations: [Chest pain] Onset: 12-13-2023 12-13-2023 Episodic Other aftercare (1 source) 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; 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] Onset: 05-07-2022 Episodic Other aftercare (1 source) Other rn long term care (current) drug therapy; Translations: [OTH INTERMEDIATE CURRENT DRUG THERAPY] Onset: 05-07-2022 Episodic Other and unspecified benign neoplasm (20 sources) Polyp of transverse colon; Translations: [Polyp of colon] Onset: 12-07-2022 12-07-2022 Episodic Other circulatory disease (1 source) Upper respiratory tract finding; Translations: [Other specified symptoms and signs involving the circulatory and respiratory systems] 12-06-2023 Episodic Other connective tissue disease (5 sources) Other specified soft tissue disorders; Translations: [OTHER SPEC SOFT TISSUE DISORDERS] Onset: 12-28-2021 Episodic Other gastrointestinal disorders (20 sources) Stool DNA-based colorectal cancer screening positive; Translations: [Other fecal abnormalities] Onset: 11-16-2022 11-16-2022 Episodic Other injuries and conditions due to external causes (1 source) Personal history of (healed) traumatic fracture; Translations: [PERSONAL HX HEALED TRAUMATIC FX] Onset: 05-07-2022 Episodic Other lower respiratory disease (13 sources) Cough; Translations: [Cough] Onset: 03-13-2018 Resolved: 11-05-2019 10-06-2019 Episodic Other lower respiratory disease (2 sources) Shortness of breath; Translations: [SHORTNESS OF BREATH] Onset: 05-07-2022 Episodic Other lower respiratory disease (8 sources) Dyspnea; Translations: [Shortness of breath] Onset: 12-13-2023 12-13-2023 Episodic Other non-traumatic joint disorders (2 sources) Pain in left hip; Translations: [PAIN IN LEFT HIP] Onset: 08-01-2022 Episodic Other non-traumatic joint disorders (4 sources) Pain in left shoulder; Translations: [PAIN IN LEFT SHOULDER] Onset: 05-03-2022 Episodic Other screening for suspected conditions (not mental disorders or infectious disease) (1 source) Abnormal result of other cardiovascular function study; Translations: [Abnormal result of other cardiovascular function study] Onset: 01-09-2024 Episodic Other skin disorders (2 sources) Disorder of pigmentation, unspecified; Translations: [Dyschromia, unspecified] Onset: 08-05-2023 08-05-2023 Episodic Other skin disorders (1 source) Disorder of the skin and subcutaneous tissue, unspecified; Translations: [Disorder of the skin and subcutaneous tissue, unspecified] Onset: 05-01-2023 Episodic Other skin disorders (1 source) Disorder of skin of lower limb; Translations: [Disorder of the skin and subcutaneous tissue, unspecified] 05-01-2023 Episodic Other upper respiratory infections (20 sources) Acute upper respiratory infection; Translations: [Acute frontal sinusitis, unspecified] Onset: 03-17-2018 10-06-2019 Episodic Phlebitis; thrombophlebitis and thromboembolism (20 sources) Personal history of other venous thrombosis and embolism; Translations: [Acute deep venous thrombosis of calf] Onset: 05-08-2022 Episodic Skin and subcutaneous tissue infections (20 sources) Cellulitis of right lower limb; Translations: [Cellulitis of right lower limb] Onset: 03-24-2022 03-24-2022 Episodic Unclassified (1 source) LOW BACK PAIN, UNSPECIFIED; Translations: [LOW BACK PAIN, UNSPECIFIED] Onset: 06-14-2022 Results Test Name Value Interpretation Reference Range Facility X-ray reportOrdered By: Jose Garza on 10-14-2024 Study report [facility] [place] [address] XRay Report Signed Patient: Ashok Doss MR#: [id number] : 1965 Acct:[id number] Age/Sex: 59 / M ADM Date: 5 Loc: XD Room: Type: [facility] Attending Dr: Kamila Chan APRN Copies to: [...] Garza M.D. 10/14/2024 12:56 PM Dictation Location: RACTIV-YOOSE-[id number] Transcribed By: [facility] 10/14/24 1256 Dictated By: Rosendo Garza DO 10/14/24 1255 Signed By: 10/14/24 1256 [facility] XR lumbar spine 6V w bending on 10-14-2024 XR lumbar spine 6V w bending [facility] [place] [address] XRay Report Signed Patient: Ashok Doss MR#: [id number] : 1965 Acct:[id number] Age/Sex: 59 / M ADM Date: 10/14/24 Loc: XD Room: Type: [facility] Attending Dr: Kamila Chan APRN Copies to: Kamila Chan APRN Ordering Provider: Kamila Chan APRN Date of [...] Garza M.D. 10/14/2024 12:56 PM Dictation Location: FashFolio Transcribed By: [facility] 10/14/24 1256 Dictated By: Rosendo Garza DO 10/14/24 1255 Signed By: 10/14/24 1256 Normal [facility] COMPREHENSIVE METABOLIC PANE Feng 08-17-2024 Albumin [Mass/Vol] 4.1 g/dL Normal 3.2-5.3 [facility] Comment on above: Performed By: #### C MP #### [facility] ([facility]) [address] [place] [address] VIR ALP [Catalytic activity/Vol] 99 U/L Normal 39-130 [facility] Comment on above: Performed By: #### C MP #### [facility] ([facility]) [address] [place] [address] VIR ALT [Catalytic activity/Vol] 21 U/L Normal <=40 [facility] Comment on above: Performed By: #### C MP #### [facility] ([facility]) [address] [place] [address] VIR Anion gap [Moles/Vol] 8 mmol/L Normal 5-15 [facility] Comment on above: Performed By: #### C MP #### [facility] ([facility]) [address] [place] [address] VIR AST [Catalytic activity/Vol] 15 U/L Normal <=41 [facility] Comment on above: Performed By: #### C MP #### [facility] ([facility]) [address] [place] [address] VIR Bilirubin [Mass/Vol] 0.3 mg/dL Normal 0.3-1.2 [facility] Comment on above: Performed By: #### C MP #### [facility] ([facility]) [address] [place] [address] VIR Calcium [Mass/Vol] 9.5 mg/dL Normal 8.5-10.5 [facility] Comment on above: Performed By: #### C MP #### [facility] ([facility]) [address] [place] [address] VIR Chloride [Moles/Vol] 105 mmol/L Normal 98-109 [facility] Comment on above: Performed By: #### C MP #### [facility] ([facility]) [address] [place] [address] VIR CO2 [Moles/Vol] 27 mmol/L Normal 22-32 [facility] Comment on above: Performed By: #### C MP #### [facility] ([facility]) [address] [place] [address] VIR Creatinine [Mass/Vol] 0.96 mg/dL Normal 0.60-1.30 [facility] Comment on above: Result Comment: METH OD TRACEABLE TO IDMS STANDARD Performed By: #### C MP #### [facility] ([facility]) [address] [place] [address] VIR EGFR (CKD-EPI) NON-RACE DEPENDENT >^90 Normal >=60 [facility] Comment on above: Result Comment: Repo rted eGFR is based on the CKD-EPI 2020 equation that does not use a race coefficient. Performed By: #### C MP #### [facility] ([facility]) [address] [place] [address] VIR Glucose [Mass/Vol] 91 mg/dL Normal 65-99 [facility] Comment on above: Performed By: #### C MP #### [facility] ([facility]) [address] [place] [address] VIR Potassium [Moles/Vol] 3.7 mmol/L Normal 3.5-5.0 [facility] Comment on above: Performed By: #### C MP #### [facility] ([facility]) [address] [place] [address] VIR Protein [Mass/Vol] 7.1 g/dL Normal 6.0-8.0 [facility] Comment on above: Performed By: #### C MP #### [facility] ([facility]) [address] [place] [address] VIR Sodium [Moles/Vol] 140 mmol/L Normal 134-146 [facility] Comment on above: Performed By: #### C MP #### [facility] ([facility]) [address] [place] [address] VIR Urea nitrogen [Mass/Vol] 16 mg/dL Normal 5-23 [facility] Comment on above: Performed By: #### C MP #### [facility] ([facility]) [address] [place] [address] VIR B-Type Natriuretic Peptideon 01-09-2024 Natriuretic peptide B (Bld) [Mass/Vol] 61.0 pg/mL Normal 5-100 [facility] Comment on above: Result Comment: PERF ORMED BY: [place] [address] PATHOLOGIST CHARTERED ACCOUNTANT JESUS RUBIO M.D. Performed By: #### B COMPOUND WORKER #### [facility] [address] [place] [address] Blood Urea Nitrogenon 2023 Urea nitrogen [Mass/Vol] 15 mg/dL Normal 7-25 [facility] Comment on above: Performed By: #### L YTES, CREAT, BUN, PP, LIPID, CBC #### [facility] [address] [place] [address] Coagulation Profileon 2023 aPTT Coag (Bld) [Time] 30.9 s Normal 25.1-36.5 [facility] Comment on above: Result Comment: A he matocrit value greater than 55% may lead to inaccurate results in coagulation testing. Patients having hematocrit values >55% require a special collection tube for coagulation studies. Please contact the laboratory at [phone] for redraw instructions. PERFORMED BY: [address] [place] [address] PATHOLOGIST CHARTERED ACCOUNTANT JESUS RUBIO M.D. Performed By: #### L YTES, CREAT, BUN, PP, LIPID, CBC #### [address] INR Coag (PPP) [Relative time] 1.0 {INR} Normal [facility] Comment on above: Result Comment: INR Therapeutic Range A) Pre- and Peroperative OAT started two weeks before surgery. NOT HIP SURGERY: 1.5 - 2.5 HIP SURGERY: 2 - 3 B) Primary and secondary prevention of venous THROMBOSIS: 2 - 3 C) Active venous thrombosis, pulmonary embolism and prevention of recurrent venous thrombosis: 2 - 3 D) Prevention of arterial thromboembolism including patients with mechanical heart valves: 3 - 4.5 Performed By: #### L YTES, CREAT, BUN, PP, LIPID, CBC #### [address] PT Coag (PPP) [Time] 11.8 s Normal 9.0-12.9 [facility] Comment on above: Result Comment: A he matocrit value greater than 55% may lead to inaccurate results in coagulation testing. Patients having hematocrit values >55% require a special collection tube for coagulation studies. Please contact the laboratory at [phone] for redraw instructions. Performed By: #### L YTES, CREAT, BUN, PP, LIPID, CBC #### [address] Complete Blood Count Auto Di ffon 01-09-2024 Basophils (Bld) [#/Vol] 0.2 10*3/uL Normal 0.0-0.2 [facility] Comment on above: Result Comment: PERF ORMED BY: [place] [address] PATHOLOGIST CHARTERED ACCOUNTANT JESUS RUBIO M.D. Performed By: #### L YTES, CREAT, BUN, PP, LIPID, CBC #### [address] Basophils/100 WBC (Bld) 1.2 % Normal . [facility] Comment on above: Performed By: #### L YTES, CREAT, BUN, PP, LIPID, CBC #### [address] [address] [place] Eosinophils (Bld) [#/Vol] 0.4 10*3/uL Normal 0.0-0.45 [facility] Comment on above: Performed By: #### L YTES, CREAT, BUN, PP, LIPID, CBC #### [address] Eosinophils/100 WBC (Bld) 2.7 % Normal . [facility] Comment on above: Performed By: #### L YTES, CREAT, BUN, PP, LIPID, CBC #### [address] Erythrocyte distribution width (RBC) [Ratio] 13.9 % Normal 12.0-14.8 [facility] Comment on above: Performed By: #### L YTES, CREAT, BUN, PP, LIPID, CBC #### [address] Hematocrit (Bld) [Volume fraction] 40.9 % Normal 38.8-50.0 [facility] Comment on above: Performed By: #### L YTES, CREAT, BUN, PP, LIPID, CBC #### [address] Hemoglobin (Bld) [Mass/Vol] 14.0 g/dL Normal 13.0-17.0 [facility] Comment on above: Performed By: #### L YTES, CREAT, BUN, PP, LIPID, CBC #### [address] Lymphocytes (Bld) [#/Vol] 3.9 10*3/uL Normal 1.00-4.8 [facility] Comment on above: Performed By: #### L YTES, CREAT, BUN, PP, LIPID, CBC #### [address] Lymphocytes/100 WBC (Bld) 26.8 % Normal . [facility] Comment on above: Performed By: #### L YTES, CREAT, BUN, PP, LIPID, CBC #### [address] MCH (RBC) [Entitic mass] 31.4 pg Normal 27.5-35.2 [facility] Comment on above: Performed By: #### L YTES, CREAT, BUN, PP, LIPID, CBC #### [address] MCV (RBC) [Entitic vol] 92.0 fL Normal 83.5-101 [facility] Comment on above: Performed By: #### L YTES, CREAT, BUN, PP, LIPID, CBC #### [address] Mean Corpuscular HGB Conc 34.1 g/dL Normal 32.5-35.6 [facility] Comment on above: Performed By: #### L YTES, CREAT, BUN, PP, LIPID, CBC #### [address] Monocytes (Bld) [#/Vol] 1.4 10*3/uL High 0.0-0.8 [facility] Comment on above: Performed By: #### L YTES, CREAT, BUN, PP, LIPID, CBC #### [address] Monocytes/100 WBC (Bld) 9.9 % Normal . [facility] Comment on above: Performed By: #### L YTES, CREAT, BUN, PP, LIPID, CBC #### [address] Neutrophils (Bld) [#/Vol] 8.6 10*3/uL High 1.8-7.7 [facility] Comment on above: Performed By: #### L YTES, CREAT, BUN, PP, LIPID, CBC #### [address] Neutrophils/100 WBC (Bld) 59.4 % Normal . [facility] Comment on above: Performed By: #### L YTES, CREAT, BUN, PP, LIPID, CBC #### [place] [address] NRBC% 0.1 /100{WBC} Normal 0-0.5 [facility] Comment on above: Performed By: #### L YTES, CREAT, BUN, PP, LIPID, CBC #### [address] Platelet mean volume (Bld) [Entitic vol] 7.0 fL Normal 6.6-10.1 [facility] Comment on above: Performed By: #### L YTES, CREAT, BUN, PP, LIPID, CBC #### [address] Platelets (Bld) [#/Vol] 320 10*3/uL Normal 150-450 [facility] Comment on above: Performed By: #### L YTES, CREAT, BUN, PP, LIPID, CBC #### [address] RBC (Bld) [#/Vol] 4.45 10*6/uL Normal 3.90-5.60 [facility] Comment on above: Performed By: #### L YTES, CREAT, BUN, PP, LIPID, CBC #### [address] WBC (Bld) [#/Vol] 14.4 10*3/uL High 4.1-10.5 [facility] Comment on above: Performed By: #### L YTES, CREAT, BUN, PP, LIPID, CBC #### [address] Creatinineon 01-09-2024 Creatinine [Mass/Vol] 0.88 mg/dL Normal 0.70-1.30 [facility] Comment on above: Performed By: #### L YTES, CREAT, BUN, PP, LIPID, CBC #### [address] Creatinine Clr Calc Pharmacy 132.16 Normal [facility] Comment on above: Performed By: #### L YTES, CREAT, BUN, PP, LIPID, CBC #### [facility] [address] GFR/1.73 sq M.predicted MDRD (S/P/Bld) [Vol rate/Area] mL/min/{1.73_m2} Normal [facility] Comment on above: Performed By: #### L YTES, CREAT, BUN, PP, LIPID, CBC #### [facility] [address] [place] [id number] [facility] ECG 12 lead ECGon 01-09-2024 ECG 12 lead ECG [facility] [place] [address] [place] [address] Electrocardiograph Report Signed Patient: Ashok Doss MR#: [id number] : 1965 Acct:[id number] Age/Sex: 58 / M ADM Date: 01/09/24 Loc: Room: Type: [facility] Attending Dr: Arabella Morrissey DO Ordering Provider: [...] No previous ECGs available Confirmed by JARVIS GARCIA [facility], BENJAMIN ([id number]) on 01/10/2024 11:17:15 AM Referred By: Electronically Signed By: BENJAMIN CONLEY MD [facility] Transcribed By: MUS Signed By Benjamin Conley MD, FAC 01/10/24 1117 Normal [facility] Electrolyteson 01-09-2024 Anion gap [Moles/Vol] 12.4 mmol/L Normal 6.0-15.0 [facility] Comment on above: Performed By: #### L YTES, CREAT, BUN, PP, LIPID, CBC #### [place] [id number] [facility] Chloride [Moles/Vol] 105 mmol/L Normal 98-107 [facility] Comment on above: Performed By: #### L YTES, CREAT, BUN, PP, LIPID, CBC #### [facility] [address] CO2 [Moles/Vol] 26.6 mmol/L Normal 21.0-31.0 [facility] Comment on above: Performed By: #### L YTES, CREAT, BUN, PP, LIPID, CBC #### [address] Potassium [Moles/Vol] 4.0 mmol/L Normal 3.5-5.1 [facility] Comment on above: Performed By: #### L YTES, CREAT, BUN, PP, LIPID, CBC #### [address] Sodium [Moles/Vol] 140 mmol/L Normal 136-145 [facility] Comment on above: Performed By: #### L YTES, CREAT, BUN, PP, LIPID, CBC #### [address] Lipid Panelon 01-09-2024 Cholesterol [Mass/Vol] 103 mg/dL Low 140-200 [facility] Comment on above: Result Comment: Chol less than 200 mg/dl low risk Chol 201-239 mg/dl borderline risk Chol 240 mg/dl and greater high risk Performed By: #### L YTES, CREAT, BUN, PP, LIPID, CBC #### [address] Cholesterol in HDL [Mass/Vol] 36 mg/dL Normal 23-92 [facility] Comment on above: Result Comment: HDL CHOL ATP-III CLASSIFICATION Cardiovascular Risk HDL > or equal to 60 mg/dL LOW HDL < 40 mg/dL HIGH Performed By: #### L YTES, CREAT, BUN, PP, LIPID, CBC #### [address] Cholesterol.total/Ch olesterol in HDL [Mass ratio] 2.9 {ratio} Normal <5.0 [facility] Comment on above: Result Comment: PERF ORMED BY: [place] [address] PATHOLOGIST CHARTERED ACCOUNTANT JESUS RUBIO M.D. Performed By: #### L YTES, CREAT, BUN, PP, LIPID, CBC #### [address] LDL Cholesterol,Calculat ed 44 mg/dL Normal 0-100 [facility] Comment on above: Result Comment: LDL ATP III CLASSIFICATION LDL less than 100 mg/dL Optimal LDL 100-129 mg/dL Near or above optimal LDL 130-159 mg/dL Borderline high LDL 160-189 mg/dL High LDL greater than 189 mg/dL Very high Performed By: #### L YTES, CREAT, BUN, PP, LIPID, CBC #### [address] Triglyceride w/Reflex 117 mg/dL Normal 0-149 [facility] Comment on above: Result Comment: TRIG ATP III CLASSIFICATION TRIG less than 150 mg/dL Normal TRIG 150-199 mg/dL Borderline high TRIG 200-500 mg/dL High TRIG greater than 500 mg/dL Very high Standard traceable to the Center for Disease Conrtrol and Prevention (CDC) test method. Performed By: #### L YTES, CREAT, BUN, PP, LIPID, CBC #### [address] VLDL CHOLESTEROL 23 mg/dL Normal [facility] Comment on above: Performed By: #### L YTES, CREAT, BUN, PP, LIPID, CBC #### [place] [id number] [facility] BASIC METABOLIC PANLon 12-29 Anion gap [Moles/Vol] 11 mmol/L Normal 5-15 [facility] Comment on above: Performed By: #### C BCA, BMP, 63085-0, LIVR, 48267-7, 3016-3 #### [facility] ([id number]) [address] [place] [address] Calcium [Mass/Vol] 9.1 mg/dL Normal 8.5-10.5 [facility] Comment on above: Performed By: #### C BCA, BMP, 90540-8, LIVR, 50501-0, 3015-3 #### [facility] ([id number]) [address] [place] [address] Chloride [Moles/Vol] 104 mmol/L Normal 98-109 [facility] Comment on above: Performed By: #### C BCA, BMP, 75429-9, LIVR, 84098-2, 3015- #### [facility] ([id number]) [address] [place] [address] CO2 [Moles/Vol] 28 mmol/L Normal 22-32 [facility] Comment on above: Performed By: #### C BCA, BMP, 23247-2, LIVR, 56586-0, 3015- #### [facility] ([id number]) [address] [place] [address] Creatinine [Mass/Vol] 0.92 mg/dL Normal 0.60-1.30 [facility] Comment on above: Result Comment: METH OD TRACEABLE TO IDMS STANDARD Performed By: #### C BCA, BMP, 28001-8, LIVR, 35735-1, 3015-05 #### [facility] ([id number]) [address] [place] [address] eGFR (CKD-EPI) NON-RACE DEPENDENT >90 Normal >59 [facility] Comment on above: Result Comment: Reported eGFR is based on the CKD-EPI 2020 equation that does not use a race coefficient. Performed By: #### C BCA, BMP, 29249-6, LIVR, 60195-1, 3015-3 #### [facility] ([id number]) [address] [place] [address] Glucose [Mass/Vol] 86 mg/dL Normal 65-99 [facility] Comment on above: Performed By: #### C BCA, BMP, 19685-2, LIVR, 60762-0, 3015- #### [facility] ([id number]) [address] [place] [address] Potassium [Moles/Vol] 3.5 mmol/L Normal 3.5-5.0 [facility] Comment on above: Performed By: #### C BCA, BMP, 60060-3, LIVR, 11527-4, 3015- #### [facility] ([id number]) [address] [place] [address] Sodium [Moles/Vol] 143 mmol/L Normal 134-146 [facility] Comment on above: Performed By: #### C BCA, BMP, 45841-0, LIVR, , 3015- #### [facility] ([id number]) [address] [place] [address] Urea nitrogen [Mass/Vol] 15 mg/dL Normal 5-23 [facility] Comment on above: Performed By: #### C BCA, BMP, 66120-1, LIVR, , 3015-05 #### [facility] ([id number]) [address] [place] [address] CBC AND AUTO DIFFon 10-28-20 24 ABSOLUTE BASOPHIL 0.1 X10E9/L Normal 0.0-0.2 [facility] Comment on above: Performed By: #### C BCA, BMP, 66716-2, LIVR, , 3015- #### [facility] ([id number]) [address] [place] [address] ABSOLUTE NEUTROPHIL 6.4 X10E9/L Normal 1.5-6.6 [facility] Comment on above: Performed By: #### C BCA, BMP, 43041-0, LIVR, , 3015- #### [facility] ([id number]) [address], [address] [place] [address] Basophils/100 WBC (Bld) 0.7 % Normal [facility] Comment on above: Performed By: #### C BCA, BMP, 26268-2, LIVR, , 3015-05 #### [facility] ([id number]) [address], [address] [place] [address] Eosinophils (Bld) [#/Vol] 0.4 10*3/uL Normal 0.0-0.4 [facility] Comment on above: Performed By: #### C BCA, BMP, 16147-9, LIVR, , 3015-05 #### [facility] ([id number]) [address], [address] [place] [address] Eosinophils/100 WBC (Bld) 3.6 % Normal [facility] Comment on above: Performed By: #### C BCA, BMP, 94407-3, LIVR, , 3015-05 #### [facility] ([id number]) [address] [place] [address] Erythrocyte distribution width (RBC) [Ratio] 13.6 % Normal 11.5-15.0 [facility] Comment on above: Performed By: #### C BCA, BMP, 37240-4, LIVR, , 3015-05 #### [facility] ([id number]) [address], [address] [place] [address] Hematocrit (Bld) [Volume fraction] 40.2 % Normal 39-49 [facility] Comment on above: Performed By: #### C BCA, BMP, 90847-6, LIVR, , 3015-05 #### [facility] ([id number]) [address], [address] [place] [address] Hemoglobin (Bld) [Mass/Vol] 13.9 g/dL Normal 13.0-17.0 [facility] Comment on above: Performed By: #### C BCA, BMP, 72390-1, LIVR, , 3015-05 #### [facility] ([id number]) [address], [address] [place] [address] Lymphocytes (Bld) [#/Vol] 3.6 10*3/uL High 1.0-3.5 [facility] Comment on above: Performed By: #### C BCA, BMP, 28752-9, LIVR, , 3015-05 #### [facility] ([id number]) [address], [address] [place] [address] Lymphocytes/100 WBC (Bld) 30.8 % Normal [facility] Comment on above: Performed By: #### C BCA, BMP, 26723-3, LIVR, , 3015-05 #### [facility] ([id number]) [address], [address] [place] [address] MCH (RBC) [Entitic mass] 32.0 pg Normal 27-34 [facility] Comment on above: Performed By: #### C BCA, BMP, 33678-8, LIVR, , 3015-05 #### [facility] ([id number]) [address], [address] [place] [address] MCHC (RBC) [Mass/Vol] 34.5 g/dL Normal 32-36 [facility] Comment on above: Performed By: #### C BCA, BMP, 57400-0, LIVR, , 3015-05 #### [facility] ([id number]) [address], [address] [place] [address] MCV (RBC) [Entitic vol] 93 fL Normal 80-100 [facility] Comment on above: Performed By: #### C BCA, BMP, 22724-8, LIVR, , 3015- #### [facility] ([id number]) [address], [address] [place] [address] Monocytes (Bld) [#/Vol] 1.1 10*3/uL High 0-0.9 [facility] Comment on above: Performed By: #### C BCA, BMP, 21455-6, LIVR, 64153-3, 3015- #### [facility] ([id number]) [address], [address] [place] [address] Monocytes/100 WBC (Bld) 9.6 % Normal [facility] Comment on above: Performed By: #### C BCA, BMP, 10257-8, LIVR, 86583-8, 3015- #### [facility] ([id number]) [address], [address] [place] [address] Neutrophils/100 WBC (Bld) 55.3 % Normal [facility] Comment on above: Performed By: #### C BCA, BMP, 73006-4, LIVR, 27988-9, 3015- #### [facility] ([id number]) [address] [place] [address] Platelet mean volume (Bld) [Entitic vol] 7.4 fL Normal 7-12 [facility] Comment on above: Performed By: #### C BCA, BMP, 84921-3, LIVR, 23329-1, 3015- #### [facility] ([id number]) [address] [place] [address] Platelets (Bld) [#/Vol] 322 10*3/uL Normal 150-450 [facility] Comment on above: Performed By: #### C BCA, BMP, 49107-0, LIVR, 13648-7, 3015- #### [facility] ([id number]) [address] [place] [address] RBC COUNT 4.34 X10E12/L Normal 4.10-5.70 [facility] Comment on above: Performed By: #### C BCA, BMP, 47233-7, LIVR, 33393-4, 3015-3 #### [facility] ([id number]) [address] [place] [address] WBC (Bld) [#/Vol] 11.6 10*3/uL High 4.0-11.0 [facility] Comment on above: Performed By: #### C BCA, BMP, 21098-0, LIVR, 66445-1, 3015- #### [facility] ([id number]) [address] [place] [address] LIVER PANELon 12-30-2023 Albumin [Mass/Vol] 3.9 g/dL Normal 3.2-5.3 [facility] Comment on above: Performed By: #### C BCA, BMP, 67762-2, LIVR, , 3015-05 #### [facility] ([id number]) [address] [place] [address] ALP [Catalytic activity/Vol] 74 U/L Normal 39-130 [facility] Comment on above: Performed By: #### C BCA, BMP, 78690-6, LIVR, 66081-8, 3015- #### [facility] ([id number]) [address] [place] [address] ALT [Catalytic activity/Vol] 17 U/L Normal 0-40 [facility] Comment on above: Performed By: #### C BCA, BMP, 89020-3, LIVR, 20433-6, 3015-3 #### [facility] ([id number]) [address] [place] [address] AST [Catalytic activity/Vol] 13 U/L Normal 0-41 [facility] Comment on above: Performed By: #### C BCA, BMP, 61914-6, LIVR, 57282-3, 3015-3 #### [facility] ([id number]) [address] [place] [address] Bilirubin [Mass/Vol] 0.5 mg/dL Normal 0.3-1.2 [facility] Comment on above: Performed By: #### C BCA, BMP, 85229-5, LIVR, 88731-4, 3015-3 #### [facility] ([id number]) [address] [place] [address] Bilirubin.direct [Mass/Vol] 0.1 mg/dL Normal 0.0-0.4 [facility] Comment on above: Performed By: #### C BCA, BMP, 41903-7, LIVR, 71007-7, 3015- #### [facility] ([id number]) [address] [place] [address] Protein [Mass/Vol] 6.3 g/dL Normal 6.0-8.0 [facility] Comment on above: Performed By: #### C BCA, BMP, 00636-4, LIVR, 02893-1, 3015-05 #### [facility] ([id number]) [address] [place] [address] Lipid 1996 panelon 4 Cholesterol [Mass/Vol] 109 mg/dL Low 150-200 [facility] Comment on above: Performed By: #### C BCA, BMP, 42949-7, LIVR, 34669-7, 3015-3 #### [facility] ([id number]) [address] [place] [address] Cholesterol in HDL [Mass/Vol] 38 mg/dL Low >39 [facility] Comment on above: Result Comment: HDL <40 mg/dL - High Risk HDL > or = 40mg/dL- Desirable HDL >60 mg/dL - Negative Risk Performed By: #### C BCA, BMP, 21944-7, LIVR, 72745-1, 6-3 #### [facility] ([id number]) [address] [place] [address] Cholesterol in LDL [Mass/Vol] 50 mg/dL Normal <130 [facility] Comment on above: Result Comment: LDL <100 mg/dL - Desirable LDL >160 mg/dL - High Risk Performed By: #### C BCA, BMP, 47853-7, LIVR, 15324-3, 6-3 #### [facility] ([id number]) [address] [place] [address] Cholesterol in VLDL [Mass/Vol] 21 mg/dL Normal 0-30 [facility] Comment on above: Performed By: #### C BCA, BMP, 12368-2, LIVR, 09637-9, 6-3 #### [facility] ([id number]) [address] [place] [address] CHOLESTEROL:HDL 2.9 Normal 1.0-5.0 [facility] Comment on above: Performed By: #### C BCA, BMP, 69917-6, LIVR, 02500-0, 6-3 #### [facility] ([id number]) [address] [place] [address] Triglyceride [Mass/Vol] 104 mg/dL Normal 27-150 [facility] Comment on above: Performed By: #### C BCA, BMP, 60200-1, LIVR, 64331-9, 3016-3 #### [facility] ([id number]) [address] [place] [address] MAGNESIUMon 12-30-2023 Magnesium [Mass/Vol] 1.8 mg/dL Normal 1.8-2.6 [facility] Comment on above: Performed By: #### C BCA, BMP, 62698-4, LIVR, , 3015-3 #### [facility] ([id number]) [address], [address] [place] [address] TSH Qnon 12-30-2023 TSH 1.41 uIU/mL Normal 0.49-4.67 [facility] Comment on above: Performed By: #### C BCA, BMP, 74508-4, LIVR, , 3015-3 #### [facility] ([id number]) [address] [facility] [facility] [address], [address] [place] [address] ECG 12 lead (Clinic Performe d)on 12-13-2023 Sinus rhythm, nonspecific ST-T wave changes. Rate 76. [facility] Work Phone: [facility] Work Phone: POCT Influenza A/Influenza B /SARS-COV-2 Veritoron 12-06-2023 External Poct Influenza A Antigen Negative [facility] External Poct Influenza B Antigen Negative [facility] SARS-CoV-2 (COVID-19) Ag IA.rapid Ql (Resp) Negative [facility] URINE CULTUREon 08-21-2023 Bacteria identified Cx Nom (U) CULTURE RESULTS NO GROWTH AT <100 CFU/mL Normal [facility] Comment on above: Performed By: #### 6 30-4 #### [facility] ([id number]) [address] [place] [address] POCT Urinalysis Auto, W/O Mi croscopyon 07-04-2023 External Poct Urine Blood 1+ [facility] External Poct Urine Glucose Negative [facility] External Poct Urine Ketones Negative [facility] External Poct Urine Leukocyte Esterase Negative [facility] External Poct Urine Nitrite Negative [facility] External Poct Urine Ph 7.0 [facility] External Poct Urine Protein Negative [facility] COMPREHENSIVE METABOLIC PANE Feng 05-01-2023 Albumin [Mass/Vol] 4.1 g/dL Normal 3.2-5.3 [facility] Comment on above: Performed By: #### Haley ARENAS 92670-3 #### [facility] ([id number]) [address] [place] [address] ALP [Catalytic activity/Vol] 75 U/L Normal 39-130 [facility] [place] Comment on above: Performed By: #### Haley ARENAS, 46935-5 #### [facility] ([id number]) [address] [place] [address] ALT [Catalytic activity/Vol] 21 U/L Normal 0-40 [facility] [place] Comment on above: Performed By: #### Haley ARENAS, 32324-9 #### [facility] ([id number]) [address] [place] [address] Anion gap [Moles/Vol] 6 mmol/L Normal 5-15 [facility] [place] Comment on above: Performed By: #### Haley ARENAS, 30102-8 #### [facility] ([id number]) [address] [place] [address] AST [Catalytic activity/Vol] 13 U/L Normal 0-41 [facility] [place] Comment on above: Performed By: #### Haley ARENAS, 44321-0 #### [facility] ([id number]) [address] [place] [address] Bilirubin [Mass/Vol] 0.4 mg/dL Normal 0.3-1.2 [facility] Comment on above: Performed By: #### Haley ARENAS 21014-9 #### [facility] ([id number]) [address] [place] [address] Calcium [Mass/Vol] 9.5 mg/dL Normal 8.5-10.5 [facility] Comment on above: Performed By: #### Haley ARENAS, 27651-1 #### [facility] ([id number]) [address] [place] [address] Chloride [Moles/Vol] 106 mmol/L Normal 98-109 [facility] Comment on above: Performed By: #### Haley ARENAS, 86682-4 #### [facility] ([id number]) [address] [place] [address] CO2 [Moles/Vol] 30 mmol/L Normal 22-32 [facility] [place] Comment on above: Performed By: #### Haley ARENAS, 13061-6 #### [facility] ([id number]) [address] [place] [address] Creatinine [Mass/Vol] 0.96 mg/dL Normal 0.60-1.30 [facility] Comment on above: Result Comment: METH OD TRACEABLE TO IDMS STANDARD Performed By: #### Haley ARENAS, 28919-0 #### [facility] ([id number]) [address] [place] [address] eGFR (CKD-EPI) NON-RACE DEPENDENT >90 Normal >59 [facility] Comment on above: Result Comment: Reported eGFR is based on the CKD-EPI 2021 equation that does not use a race coefficient. Performed By: #### Haley ARENAS, 75154-5 #### [facility] ([id number]) [address] [place] [address] Glucose [Mass/Vol] 95 mg/dL Normal 65-99 [facility] Comment on above: Performed By: #### Haley ARENAS, 97028-6 #### [facility] ([id number]) [address] [place] [address] Potassium [Moles/Vol] 4.6 mmol/L Normal 3.5-5.0 [facility] [place] Comment on above: Performed By: #### Haley ARENAS, 61532-8 #### [facility] ([id number]) [address] [place] [address] Protein [Mass/Vol] 7.0 g/dL Normal 6.0-8.0 [facility] Comment on above: Performed By: #### Haley ARENAS, 28547-1 #### [facility] ([id number]) [address] [place] [address] Sodium [Moles/Vol] 142 mmol/L Normal 134-146 [facility] Comment on above: Performed By: #### Haley ARENAS, 41866-2 #### [facility] ([id number]) [address] [place] [address] Urea nitrogen [Mass/Vol] 20 mg/dL Normal 5-23 [facility] [place] Comment on above: Performed By: #### Haley ARENAS, 01918-8 #### [facility] ([id number]) [address] [place] [address] Comprehensive metabolic pane feng 05-01-2023 Albumin [Mass/Vol] 4.1 g/dL 3.2 - 5.3 g/dL [facility] ALP [Catalytic activity/Vol] 75 U/L 39 - 130 U/L [facility] ALT No additional P-5'-P [Catalytic activity/Vol] 21 U/L 0 - 40 U/L [facility] Anion gap [Moles/Vol] 6 mmol/L 5 - 15 mmol/L [facility] AST [Catalytic activity/Vol] 13 U/L 0 - 41 U/L [facility] Bilirubin [Mass/Vol] 0.4 mg/dL 0.3 - 1 .2 mg/dL [facility] Calcium [Mass/Vol] 9.5 mg/dL 8.5 - 10. 5 mg/dL [facility] Chloride [Moles/Vol] 106 mmol/L 98 - 10 9 mmol/L [facility] CO2 [Moles/Vol] 30 mmol/L 22 - 32 mmol/L [facility] Creatinine [Mass/Vol] 0.96 mg/dL 0.60 - 1.30 mg/dL [facility] Comment on above: METHOD TR[facility]ABLE TO [facility] STANDARD eGFR (CKD-EPI)non-race dependent - PINF [facility] Comment on above: Reported eGFR is based on the CKD-EPI 2020 equation that does not use a race coefficient. Glucose [Mass/Vol] 95 mg/dL 65 - 99 mg/dL [facility] Potassium [Moles/Vol] 4.6 mmol/L 3.5 - 5.0 mmol/L [facility] Protein [Mass/Vol] 7.0 g/dL 6.0 - 8.0 g/dL [facility] Sodium [Moles/Vol] 142 mmol/L 134 - 146 mmol/L [facility] Urea nitrogen [Mass/Vol] 20 mg/dL 5 - 23 mg/dL [facility] Lipid 1996 panelon 4 Cholesterol [Mass/Vol] 97 mg/dL Low 150 - 200 mg/dL [facility] Cholesterol in HDL [Mass/Vol] 40 mg/dL 39 - PINF mg/dL [facility] Comment on above: HDL <40 mg/dL - High Risk HDL > or = 40mg/dL- Desirable HDL >60 mg/dL - Negative Risk Cholesterol in LDL [Mass/Vol] 41 mg/dL NINF - 130 mg/dL [facility] Comment on above: LDL <100 mg/dL - Desirable LDL >160 mg/dL - High Risk Cholesterol in VLDL [Mass/Vol] 16 mg/dL 0 - 30 mg/dL [facility] Cholesterol.total/Ch olesterol in HDL [Mass ratio] 2.4 {ratio} 1.0 - 5.0 [facility] Interpretation and review of laboratory results Abnormal [facility] Triglyceride [Mass/Vol] 80 mg/dL 27 - 150 mg/dL [facility] Cholesterol [Mass/Vol] 97 mg/dL Low 150-200 [facility] Comment on above: Performed By: #### Haley ARENAS, 01077-0 #### [facility] ([id number]) [address] [place] [address] Cholesterol in HDL [Mass/Vol] 40 mg/dL Normal >39 [facility] Comment on above: Result Comment: HDL <40 mg/dL - High Risk HDL > or = 40mg/dL- Desirable HDL >60 mg/dL - Negative Risk Performed By: #### Haley ARENAS, 73482-5 #### [facility] ([id number]) [address] [place] [address] Cholesterol in LDL [Mass/Vol] 41 mg/dL Normal <130 [facility] Comment on above: Result Comment: LDL <100 mg/dL - Desirable LDL >160 mg/dL - High Risk Performed By: #### Haley ARENAS, 87036-2 #### [facility] ([id number]) [address] [place] [address] Cholesterol in VLDL [Mass/Vol] 16 mg/dL Normal 0-30 [facility] Comment on above: Performed By: #### Haley ARENAS, 22844-0 #### [facility] ([id number]) [address] [facility], [address] [place] [address] CHOLESTEROL:HDL 2.4 Normal 1.0-5.0 [facility] Comment on above: Performed By: #### C DAGOBERTO, 60284-3 #### [facility] ([id number]) [address] [facility] [address], [address] [place] [address] Triglyceride [Mass/Vol] 80 mg/dL Normal 27-150 [facility] Comment on above: Performed By: #### C DAGOBERTO, 99643-2 #### [facility] ([id number]) [address] [facility] [address] [place] [address] No Panel Informationon 05-01 [facility] Tobacco Screening.on 023 Adult depression screening assessment No [facility] [address] DO Work Phone: Fall risk assessment b) One or more fall s in the last year [facility] 250 DO Work Phone: Tobacco use status CPHS a) Yes [facility] [address] DO Work Phone: Tobacco Screening. Yes [facility] 250 DO Work Phone: 36on 08-23-2022 36 Left vm to reschedul e us and follow up from 08/17/22 [facility] Telephoneon 08-23-2022 Telephone [phone] Fidencio Doss as 1965 M Date Provider Department Center 08/23/2022 Lani-PATRIA BRANCH [facility] No family history on file [facility] XR LSPINE 2_3 VIEWSon 2022 XR [...] MICHAEL OROZCO Date: 2022-08-01 08:25 Normal [facility] XR HIPS LUPILLO 3_4V WO PELVISon [...] VASILE VITALE Date: 2022-07-31 14:23 Normal [facility] Office Visiton 05-08-2022 Follow-up visit [id number] Fidencio Doss 1965 M Date Provider Department Center 05/08/2022 WINIFRED HOWELL GLV [facility] No family history on file Level of Service:10588 [place] OFFICE/OUTPATIENT NEW LOW MDM 30-44 MINUTES Reason for Visit and Comments: New Patient [632] Normal [facility] BNPon 05-03-2022 Natriuretic peptide B (Bld) [Mass/Vol] 41.0 pg/mL Normal <=900.0 [facility] Comment on above: Performed By: #### H STROPN, LIPA, BNP, CMP ####[facility] [address] [place], [place] [address]Qf. Jazzy Andre CBC AUTO DIFFon 05-03-2022 BASO # 0.1 103/ul Normal 0.0-0.1 [facility] Comment on above: Performed By: #### C BC #### [facility] [address] [address] [address] Jazzy Powell Basophils/100 WBC (Bld) 0.5 % Normal 0.2-2.0 [facility] Comment on above: Performed By: #### C BC #### [facility] [address] [place] [address] Dr. Jazzy Powell EO # 0.3 103/ul Normal 0.0-0.7 [facility] Comment on above: Performed By: #### C BC #### [facility] [address] [place] [address] Dr. Jazzy Powell Eosinophils/100 WBC (Bld) 1.8 % Normal 0.9-7.0 [facility] Comment on above: Performed By: #### C BC #### [facility] [address] [place] [address] Dr. Jazzy Powell Erythrocyte distribution width (RBC) [Ratio] 13.1 % Normal 11.0-15.0 [facility] Comment on above: Performed By: #### C BC #### [facility] [address] [place] [address] Dr. Jazzy Powell Hematocrit (Bld) [Volume fraction] 40.7 % Critically low 42.0-54.0 [facility] Comment on above: Performed By: #### C BC #### [facility] [address] [place] [address] Dr. Jazzy Powell Hemoglobin (Bld) [Mass/Vol] 13.7 g/dL Critically low 14.0-18.0 [facility] Comment on above: Performed By: #### C BC #### [facility] [address] [place] [address] Dr. Jazzy Powell IG # 0.09 10e3/ul Critically high 0.00-0.03 [facility] Comment on above: Performed By: #### C BC #### [facility] [address] [place] [address] Dr. Jazzy Powell IG % 0.5 % Normal 0.0-0.5 [facility] Comment on above: Performed By: #### C BC #### [facility] [address] [place], [place] [address] Dr. Jazzy Powell LYMPH # 4.7 103/ul Critically high 1.2-3.8 [facility] Comment on above: Performed By: #### C BC #### [facility] [address] [place] [address] Dr. Jazzy Powell Lymphocytes/100 WBC (Bld) 24.5 % Normal 20.5-60.0 [facility] Comment on above: Performed By: #### C BC #### [facility] [address] [place] [address] Dr. Jazzy Powell MANUAL DIFF REQ NO Normal [facility] Comment on above: Performed By: #### C BC #### [facility] [address] [place] [address] Dr. Jazzy Powell MCH (RBC) [Entitic mass] 30.8 pg Normal 25.9-34.0 [facility] Comment on above: Performed By: #### C BC #### [facility] [address] [place] [address] Dr. Jazzy Powell MCHC (RBC) [Mass/Vol] 33.7 g/dL Normal 29.9-35.2 [facility] Comment on above: Performed By: #### C BC #### [facility] [address] [place] [address] Dr. Jazzy Powell MCV (RBC) [Entitic vol] 91.5 fL Normal 80.0-94.0 [facility] Comment on above: Performed By: #### C BC #### [facility] [address] [place] [address] Dr. Jazzy Powell MONO # 2.5 103/ul Critically high 0.3-0.8 [facility] Comment on above: Performed By: #### C BC #### [facility] [address] [place] [address] Dr. Jazzy Powell Monocytes/100 WBC (Bld) 12.8 % Critically high 1.7-12.0 [facility] Comment on above: Performed By: #### C BC #### [facility] [address] [place] [address] Dr. Jazzy Powell NEUT # 11.6 103/ul Critically high 1.4-6.5 [facility] Comment on above: Performed By: #### C BC #### [facility] [address] [address] [address] Jazzy Powell Neutrophils/100 WBC (Bld) 59.9 % Normal 43.0-75.0 [facility] Comment on above: Performed By: #### C BC #### [facility] [address] [address] [address] Jazzy Powell Platelet mean volume (Bld) [Entitic vol] 8.4 fL Critically low 9.5-13.5 [facility] Comment on above: Performed By: #### C BC #### [facility] [address] [place] [address] Dr. Jazzy Powell PLT 332 103/ul Normal 150-450 [facility] Comment on above: Performed By: #### C BC #### [facility] [address] [place] [address] Dr. Jazzy Powell RBC 4.45 106/ul Critically low 4.70-6.10 [facility] Comment on above: Performed By: #### C BC #### [facility] [address] [place], [place] [id number] Dr. Jazzy Powell WBC 19.3 103/ul Critically high 4.0-11.0 [facility] Comment on above: Performed By: #### C BC #### [facility] [address] [place] [address] Dr. Jazzy Powell CTA CHEST WO W [...] by: TANNER MACEDO Date: 2022-05-03 20:24 Normal [facility] LIPASEon 05-03-2022 Lipase [Catalytic activity/Vol] 126.0 U/L Normal 73.0-393.0 [facility] Comment on above: Performed By: #### H STROPN, LIPA, BNP, CMP ####[facility] [address] [place] [address]Dr. Jazzy Powell PROF 14(COMP METB)on 023 Albumin [Mass/Vol] 3.5 g/dL Normal 3.4-5.0 [facility] Comment on above: Performed By: #### H STROPN, LIPA, BNP, CMP ####[facility] [address] [place] [address] [address]DrCheryl Powell Albumin/Globulin [Mass ratio] 1.0 {ratio} Normal [facility] Comment on above: Performed By: #### H STROPN, LIPA, BNP, CMP ####[facility] [address] [place] [address]Dr. Jazzy Powell ALP [Catalytic activity/Vol] 101 U/L Normal 46-116 [facility] Comment on above: Performed By: #### H STROPN, LIPA, BNP, CMP ####[facility] [address] [place] [address]Dr. Jazzy Powell ALT [Catalytic activity/Vol] 27 U/L Normal 16-63 [facility] Comment on above: Performed By: #### H STROPN, LIPA, BNP, CMP ####[facility] [address] [place] [address]Dr. Jazzy Powell Anion gap [Moles/Vol] 6.1 mmol/L Normal [facility] Comment on above: Performed By: #### H STROPN, LIPA, BNP, CMP ####[facility] [address] [place] [address]Dr. Jazzy Powell AST [Catalytic activity/Vol] 15 U/L Normal 15-37 [facility] Comment on above: Performed By: #### H STROPN, LIPA, BNP, CMP ####[facility] [address] [place], [place] [address]Dr. Jazzy Powell Bilirubin [Mass/Vol] 0.3 mg/dL Normal 0.2-1.0 [facility] Comment on above: Performed By: #### H STROPN, LIPA, BNP, CMP ####[facility] [address] [place], [place] [address]Dr. Jazzy Powell Calcium [Mass/Vol] 8.9 mg/dL Normal 8.5-10.1 [facility] Comment on above: Performed By: #### H STROPN, LIPA, BNP, CMP ####[facility] [address] [place] [address]Dr. Jazzy Powell Chloride [Moles/Vol] 104 mmol/L Normal 98-107 [facility] Comment on above: Performed By: #### H STROPN, LIPA, BNP, CMP ####[facility] [address] [place], [place] [address]Dr. Jazzy Powell CO2 [Moles/Vol] 29.4 mmol/L Normal 21.0-32.0 [facility] Comment on above: Performed By: #### H STROPN, LIPA, BNP, CMP ####[facility] [address] [place] [address]Dr. Jazzy Powell Creatinine [Mass/Vol] 0.85 mg/dL Normal 0.70-1.30 [facility] Comment on above: Performed By: #### H STROPN, LIPA, BNP, CMP ####[facility] [address] [address]Dr. Jazzy Powell EGFR-AF CITIZEN OF [place] >60 Normal >=60 [facility] Comment on above: Performed By: #### H STROPN, LIPA, BNP, CMP ####[facility] [address] [place] [address] [address]Dr. Jazzy Powell EGFR-NON AF CITIZEN OF [place] >60 Normal >=60 [facility] Comment on above: Performed By: #### H STROPN, LIPA, BNP, CMP ####[facility] [address] [address]Dr. Jazzy Powell Globulin (S) [Mass/Vol] 3.4 g/dL Normal [facility] Comment on above: Performed By: #### H STROPN, LIPA, BNP, CMP ####[facility] [address] [place], [place] [address]Dr. Jazzy Powell Glucose [Mass/Vol] 95 mg/dL Normal 74-106 [facility] Comment on above: Performed By: #### H STROPN, LIPA, BNP, CMP ####[facility] [address] [place], [place] [address]Dr. Jazzy Powell Potassium [Moles/Vol] 3.5 mmol/L Normal 3.5-5.1 [facility] Comment on above: Performed By: #### H STROPN, LIPA, BNP, CMP ####[facility] [address] [place], [place] [address]Dr. Jazzy Powell Protein [Mass/Vol] 6.9 g/dL Normal 6.4-8.2 [facility] Comment on above: Performed By: #### H STROPN, LIPA, BNP, CMP ####[facility] [address] [place], [place] [address]Dr. Jazzy Powell Sodium [Moles/Vol] 136 mmol/L Normal 136-145 [facility] Comment on above: Performed By: #### H STROPN, LIPA, BNP, CMP ####[facility] [address] [place] [address]Dr. Jazzy Powell Urea nitrogen [Mass/Vol] 17.0 mg/dL Normal 7.0-18.0 [facility] Comment on above: Performed By: #### H STROPN, LIPA, BNP, CMP ####[facility] [address] [address]Dr. Jazzy Powell Urea nitrogen/Creatinine [Mass ratio] 20.0 mg/mg Normal [facility] Comment on above: Performed By: #### H STROPN, LIPA, BNP, CMP ####[facility] [address] [address]Dr. Jazzy Powell PROTIMEon 05-03-2022 INR Coag (PPP) [Relative time] 0.95 {INR} Normal [facility] Comment on above: Performed By: #### P TT, PT ####[facility] [address] [place], [place] [address]Dr. Jazzy Powell INR GUIDELINES SEE BELOW Normal [facility] Comment on above: Result Comment: ANNEMARIE RED INR: 2.0 - 3.0 CONDITIONS NOT LISTED BELOW 2.5 - 3.5 FOR PROSTHETIC HEART VALVE REPLACEMENT 2.5 - 3.5 RECURRENT THROMBOSIS Performed By: #### P TT, PT ####[facility] [address] [place], [place] [address]Dr. Jazzy Powell PT Coag (PPP) [Time] 10.1 s Normal 9.0-11.6 [facility] Comment on above: Performed By: #### P TT, PT ####[facility] [address] [place], [place] [address]Dr. Jazzy Powell PTTon 05-03-2022 aPTT Coag (Bld) [Time] 28.7 s Normal 22.3-36.2 [facility] Comment on above: Performed By: #### P TT, PT ####[facility] [address] [place], [place] [address]Dr. Jazzy Powell TROPONIN, HIGH SENSITIVITYon 05-03-2022 HSTROP 5.1 pg/mL Normal 4.0-76.1 [facility] Comment on above: Result Comment: CUT- OFF POINTS HAVE BEEN ESTABLISHED BASED ON THE FOURTH UNIVERSAL DEFINITIONS OF MYOCARDIAL INFARCTION. THE UPPER REFERENCE LIMIT (URL) OF TROPONIN, DEFINED THE 99TH PERCENTILE OF cTnI DISTRIBUTION IN A REFERENCE POPULATION, HAS BEEN CONFIRMED THE DECISION THRESHOLD FOR HI DIAGNOSIS. Performed By: #### H STROPN, LIPA, BNP, CMP ####[facility] [address] [place], [place] [address]Dr. Jazzy Powell Covid-19 PCR (CVDTB)on SARS-CoV-2 (COVID-19) RNA ALLIE+probe Ql (Unsp spec) Not detected Normal NOT DETECTED [facility] Comment on above: Result Comment: When [...] for this test is supported by the Upholstery Instructor of Health and Human Service's declaration that [...] used). Performed By: #### C VDTBH #### [facility] [address] [place], [place] [address] Dr. Jazzy Powlel MRI FOOT LT WO CONon 022 MRI [...] RAJIV PEACOCK Date: 2022-01-01 08:53 Normal [facility] Office Visit (Cardiology)on 10-19-2021 Follow-up visit [...] Weight Tips; Status:Complete - Retrospective Authorization; Done: [id number] Some eating tips that can help you lose weight.; Status:Complete - Retrospective Authorization; Done: [id number] SocHx: Current every day smoker Tobacco Use Screening; Status:Complete; Done: [id number] You need to quit smoking.; Status:Complete - Retrospective Authorization; Done: [id number] You need to stop smoking. Though it is not easy, more than half of all adult smokers have quit. We encourage you to write down all the reasons you should quit smoking and set a quit date for yourself. Ask us how we can help. You may also call 0-768-VOJANOW for free resources and assistance.; Status:Complete - Retrospective Authorization; Done: [id number] Unlinked Stop: Brilinta 90 MG Oral Tablet [...] negative for complaint. Vitals Vital Signs Recorded: [id number] 02:25PM Heart Rate74, L Radial Jvjrwvgo551, LUE, Sitting Gnbwpcpph72, LUE, Sitting Height6 ft 2 in Devwhv721 lb BMI Vljtmzrsxs05.64 kg (more content not included)... Normal [employer] Tobacco Screening.on 022 Fall risk assessment a) No falls within the last year [facility] [employer] 250 DO Work Phone: Tobacco use status [facility] a) Yes [facility] [employer] 250 DO Work Phone: Tobacco Screening. Yes [facility] [employer] y 250 DO Work Phone: CNPNon [facility]20[facility] ASH[facility] ([id number]) 1965 M Date Time Provider Department 07/04/21 [...] Encounter Status:Closed by CHARBEL [place] on 07/04/21 [facility] [place] CNOVon 06-06-2021 CNOV Office Visit (SPNSMN ) ASHOK DOSS ([id number]) 1965 M Date Time Provider Department 06/06/21 [...] well. 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 Normal [facility] Office Visit (Cardiology)on 05-26-2021 Follow-up [...] we can help. You may also call 4-973-NJZVNOW for free resources and assistance.; Status:Complete - [...] wall myocardial infarction. He was taken to [place] where he had a coronary intervention and [...] have been (more content not included)... Normal [employer] Tobacco Screening.on 022 Adult depression screening assessment No [facility] [employer] 600 DO Work Phone: Heart Rate Regular [facility] [employer] 600 DO Work Phone: Tobacco use status [facility] a) Yes [facility] Scrip-t[employer] 600 DO Work Phone: Tobacco Screening. Yes [facility] [employer] 600 DO Work Phone: Christian 05-17-2021 MART[facility] Telephone (NI) DOSS,ASHOK ([id number]) 1965 M Date Time Provider Department 05/17/21 ASHIA BERMEO During your visit today, we recorded the following information about you: Liset Lazcano Historical Guide 05/17/2021 12:43 PM Addendum .Received the following record(s) via fax. -XR Foreign Body Eye, MRI Cspine wo Date 05/05/21 Record(s) scanned into pt's chart. Ashia Bermeo APRN.[employer] IN[employer]ATED [employer]ALL 05/17/2021 3:18 PM Signed Awaiting CD copy of imaging. Ashia Bermeo APRN.MOL[employer] INFLATED BALL Allergies As of Date: 05/17/2021 (No Known [...] Of Date: 05/17/2021 (None) Encounter Status:Closed by ASHAI BERMEO on 05/17/21 [facility] [place] Christian 05-04-2021 ARTHUR Telephone (NIQ) DOSSASHOK MONROY ([id number]) 1965 M Date Time Provider Department 05/04/21 ASHIA BERMEO During your visit today, we recorded the following information about you: Liset Lazcano Historical Guide 05/04/2021 11:44 AM Signed Lulu from [facility] requesting an Orbit order. Pt is scheduled tomorrow for MRI. Fax - [facility] - [phone] Catherine Stuart RN 05/04/2021 12:16 PM Signed Neuro SPINE CARE COORDINATION QUICK NOTE MRI Cervical order faxed to provided number. Catherine Stuart RN [facility] 05/04/2021 1:41 PM Signed XR [...] Encounter Status:Closed by CATHERINE STUART on 05/04/21 Normal [facility] CNOVon 04-24-2021 CNOV Office Visit (SPNSMN ) ASHOK DOSS ([id number]) 1965 M Date Time Provider Department 04/24/21 2:15 PM ASHIA BERMEO SPSYLVIAMN During your visit today, we recorded the following information about you: Pulse Respiration Blood pressure Weight 79/minute 18/minute 139/68 118.7 kg Height 1.88 m Ashia Bermeo APRN.[employer]ALL 04/24/2021 3:14 PM Signed SPINE SURGERY OUTPATIENT [...] PHQ-9 04/17/2021 (more content not included)... Normal [facility] Office Visit (Cardiology)on 12-27-2020 Follow-up [...] year old male that presents to the [facility] with his for follow-up on testing. He follows with his primary vision impaired teacher Dr. Stacy and was added to my [...] see if cardiac rehabilitation is possible at [facility] that is closest to his home. [...] itching CARDIOVASCULAR:N (more content not included)... Normal [facility] Tobacco Screening.on 021 Fall risk assessment a) No falls within the last year [place] [address] DO Work Phone: Tobacco use status [facility] a) Yes [place] [address] DO Work Phone: Tobacco Screening. Yes [place] [address] DO Work Phone: Cardiac Stress Teston 2020 Cardiac Stress Test [address], Suite [facility], [place] [address] Exercise Stress Test Patient Name: ASHOK DOSS Ordering Physician: [id number] Rachel Stacy MD Study Date: 12/23/2020 Reading Physician: [id number] Antony Pena MD, [facility] MRN/PID: [id number] Supervising Physician: Accession/Order#: [id number] Referring Physician: Sheridan RACHEL STACY Date of : 1965 PCP: Gender: M Fellow: Height: 187.96 cm Nurse: Frida Dewey RN Weight: 119.75 kg Life Coach: N/A BSA: 2.45 m2 Technologist: BMI: 33.90 kg/m2 Additional Staff: Age: 55 years cc report to: Patient Location: [facility] cc report to: [id number] Rachel Stacy MD Study Type: Cardiac Stress Test Diagnosis/ICD: I25.10-Atherosclerotic heart disease; I21.19-ST elevation (STEMI) myocardial infarction involving other coronary artery of inferior wall Indication: CAD, INF. HI Procedure/CPT: Stress Test Interpretation-[id number]; Stress Test Supervision-48845 Falls Risk: Patient Performance: The patient exercised [...] The inadequate level of stress was achieved. [id number] Antony Pena MD, FACC Electronically signed on 12/23/2020 at 5:13:30 PM Final Normal [facility] Cardiac Stress Test MP-No rth [facility] [address] [place] Work Phone: Echocardiogramon 12-23-2020 Echocardiography [facility] [address] [facility] [address], [address], [place] [address] TRANSTHORACIC ECHOCARDIOGRAM REPORT Patient Name: ASHOK DOSS Reading Physician: [id number] Antony Pena MD, FAC Study Date: 12/23/2020 Referring Physician: [id number] RACHEL STACY MRN/PID: [id number] PCP: Colten Gordon MD Accession/Order#: [id number] [facility] : 1965 Fellow: Gender: M Nurse: Admit Date: Life Coach: Latanya Yadav RDCS, RT(R), RDMS, RVT Height: 187.96 cm CC Report to: Weight: 119.75 kg Study Type: Echocardiogram BSA: 2.45 m2 Diagnosis/ICD: I25.10-Atherosclerotic heart disease of [place] coronary artery without angina pectoris; I21.19-ST elevation (STEMI) myocardial infarction involving other coronary artery of inferior wall Indication: HTN PTCA Procedure/CPT: Echo Complete w Full Doppler-[id number] Study Detail: The following Echo studies were [...] 0.8 m/s (0.6-0.9m/s) PV Max P.5 mmHg [id number] Antony Pena MD, FACC Electronically signed on 12/23/2020 at 11:56:24 AM Final Normal [facility] Echocardiography Please click on the link to view the study images Normal -[facility] [address] [place] Work Phone: Discharge Planning Ndwd4te 0 11-20-2020 Discharge Planning Note2 Discharge Planning: Discharge Barriersnone [facility] PCP/Next Provider Follow Up Scheduledyes Anticipated Discharge [id number] Discharge Planning 11/20/20 tcc NOTE: ROUNDED WITH NURSING, PT ADMITTED FOR NSTEMI, STARTED ON BRILINTA. ADDED TELEGRAPH OPERATOR REFERRAL TO FOLLOW OUTPT . PT TO BE DISCHARGED WITH PRESCRIPTION FOR BRILINTA. DISCOUNT BRILINTA CARD PROVIDED TO NURSING WITH [facility] . PT TO BE DISCHARGED HOME ON THIS DATE. NO FURTHER NEEDS IDENTIFIED. NURSING AM-PAC 24, PLAN IS HOME WITH FAMILY. ANJELICA RUSS RN TCC Assessment: Discharge Planning Assessment [id number] Discharge Documentation: Discharge/Transfer Date/Ggdo24-Rwd-6427 14:21 Discharged Accompanied Byspouse Discharge Modeambulatory Transportation Methodprivate car Valuables/Medications/B elongings Returnedyes Final DispositionHome Electronic Signatures: Anjelica Russ (CONSTRUCTION TECH) (Signed 20-Nov-2020 13:02) Authored: Discharge Planning, Assessment Madhavi Moore (RN) (Signed 20-Nov-2020 14:21) Authored: Discharge Planning, Discharge Documentation Last Updated: 20-Nov-2020 14:21 by Madhavi Moore (RN) Normal [facility] Discharge [id number] 021 Discharge Profile2 Discharge Orders: Anticipated Discharge Date: Anticipated Discharge [id number] Anticipated Discharge Time12:18 Problem List: Additional Dx: [...] hour away, and will be seeking a vision impaired teacher closer to home, but will be seen at [facility] with me within 1 week to [...] Physician/Dept/ServiceP nacho call Dr. Stacy's office at [phone], patient should be seen within the next week. Call to Schedule in1 week Electronic Signatures: Rachel Stacy) (Signed 20-Nov-2020 12:27) Authored: Discharge Orders, Hospital Course (Home Care/Gold Form), Provider FINAL REVIEW of Orders, Appointments, Gold Form - Guest House Manager Summary Last Updated: 20-Nov-2020 12:27 by Rachel [...] patch TransDermal Every 24 HoursNotes from Pharmacy: [facility] 18-Nov-2020 23:39 nicotine 21 mg/24 hr transdermal [...] tab(s) orally 2 times a day Normal [facility] APTTon 11-19-2020 APTT Canceled Normal [facility] Comment on above: Order Comment: TEST APTT WAS CANCELLED, 11/19/2020 03:59 DUPLICATE ORDER. Result Comment: THE APTT IS NO LONGER USED FOR MONITORING UNFRACTIONATED HEPARIN THERAPY. FOR MONITORING HEPARIN THERAPY, USE THE HEPARIN ASSAY. Performed By: #### A PTT ####[facility] [place], [place] [id number] aPTT Coag (Bld) [Time] 28 s Normal 25 - 35 [facility] Comment on above: Result Comment: THE APTT IS NO LONGER USED FOR MONITORING UNFRACTIONATED HEPARIN THERAPY. FOR MONITORING HEPARIN THERAPY, USE THE HEPARIN ASSAY. Performed By: #### A PTT #### [facility] [address] [place], [place] [id number] BASIC METABOLIC PANELon 11-02 Anion gap [Moles/Vol] 12 mmol/L Normal 10 - 20 [facility] Comment on above: Performed By: #### B MP #### [address] [id number] Calcium [Mass/Vol] 8.4 mg/dL Low 8.6 - 10.3 [facility] Comment on above: Performed By: #### B MP #### [address] [id number] Chloride [Moles/Vol] 109 mmol/L High 98 - 107 [facility] Comment on above: Performed By: #### B MP #### [address] [id number] Creatinine [Mass/Vol] 0.83 mg/dL Normal 0.50 - 1.30 [facility] Comment on above: Performed By: #### B MP #### [address] [id number] GFR- AM. >60 Normal >60 [facility] Comment on above: Result Comment: CALC ULATIONS OF ESTIMATED GFR ARE PERFORMED USING THE MDRD STUDY EQUATION FOR THE IDMS-TRACEABLE CREATININE METHODS. CLIN CHEM 2007;53:766-72 Performed By: #### B MP #### [address] [id number] GFR-NON AM. >60 Normal >60 [facility] Comment on above: Performed By: #### B MP #### [address] [id number] Glucose [Mass/Vol] 115 mg/dL High 74 - 99 [facility] Comment on above: Performed By: #### B MP #### [address] [id number] HCO3 (Bld) [Moles/Vol] 23 mmol/L Normal 21 - 32 [facility] Comment on above: Performed By: #### B MP #### [address] [id number] Potassium [Moles/Vol] 3.8 mmol/L Normal 3.5 - 5.3 [facility] Comment on above: Performed By: #### B MP #### [facility] [address] [place], [place] [id number] Sodium [Moles/Vol] 140 mmol/L Normal 136 - 145 [facility] Comment on above: Performed By: #### B MP #### [facility] [address] [place], [place] [id number] Urea nitrogen [Mass/Vol] 20 mg/dL Normal 6 - 23 [facility] Comment on above: Performed By: #### B MP #### [facility] [address] [place], [place] [phone] CBCon 11-19-2020 Erythrocyte distribution width (RBC) [Ratio] 13.3 % Normal 11.5 - 14.5 [facility] Comment on above: Performed By: #### C BC ####[facility] [place] [phone] Hematocrit (Bld) [Volume fraction] 41.2 % Normal 41.0 - 52.0 [facility] Comment on above: Performed By: #### C BC ####[address] [id number] Hemoglobin (Bld) [Mass/Vol] 13.5 g/dL Normal 13.5 - 17.5 [facility] Comment on above: Performed By: #### C BC ####[facility] [place] [phone] MCHC (RBC) [Mass/Vol] 32.8 g/dL Normal 32.0 - 36.0 [facility] Comment on above: Performed By: #### C BC ####[address] [id number] MCV (RBC) [Entitic vol] 93 fL Normal 80 - 100 [facility] Comment on above: Performed By: #### C BC ####[address] [id number] Platelets (Bld) [#/Vol] 333 10*3/uL Normal 150 - 450 [facility] Comment on above: Performed By: #### C BC ####[facility] [place], [place] [phone] RBC 4.42 x10E12/L Low 4.50 - 5.90 [facility] Comment on above: Performed By: #### C BC ####[facility] [place], [place] [phone] WBC (Bld) [#/Vol] 22.9 10*3/uL High 4.4 - 11.3 [facility] Comment on above: Performed By: #### C BC ####[facility] [place], [place] [phone] Consult-Critical Careon 11-02 Consult-Critical Care Service: Service: Critical Care Consult: Consult requested by (Attending Name): Rachel Stacy Reason: ICU MANAGEMENT History of Present Illness: Admission Reason: Inferior Wall STEMI HPI: ASHOK DOSS is a 55 year old Male Pmhx HTN and active smoker Presented to [facility] ED via [place] d/t Chest pain. Described it as crushing mid sternal pain with radiation to the Left arm. He went to [facility] Last week d/t CP and had [...] Posey MD Consult Status: Consult Order ID: [id number] Attestation: Note Completion: I am a: Advanced Practice Provider Attending Only - Shared Visit with Advanced Practice ProviderThis is a shared visit. I have revi (more content not included)... Normal [facility] Daily Progress Note - Critic al [...] 150-170mmhg. Objective Data: Objective Information T PRBPSpO2 [id number]/7799% Date/Time11/19 1:30918 17:41918 17:41918 17:41918 17:41 Range(37.1C [...] None ---- Intake and Output ----- Mn/Dy/Year [facility]Intake[facility] Nov 19, 2020 6:00 [id number] The Intake and Output Totals for the last 24 hours are: IntakeOutpinon health centerNet [id number] Date: Weight/Scale Type: 18-Nov-2020 23:15225.7 kg Physical Exam by System: Neurological: alert [...] the bedside L3 Electronic Signatures: Leia Stearns (BREAKFAST SUPERVISOR-MOLDER INFLATED BALL) (Signed 19-Nov-2020 18:30) Authored: Service, Subjective Data, [...] 2. Objective Data: Objective Information: T PRBPSpO2 [id number]/8297% Date/Time11/19 1:309 13:309/18 13:309/ 13:309/18 13:30 Range(37.1C - 37.1C ) (66 - [...] Intake and Output ----- Mn/Dy[facility], 2020 6:00 [id number] The Intake and Output Totals for the last 24 hours are: [facility]Outpin[facility] centerNet [id number] Recent Lab Results: Results: CBC: 11/19/2020 05:23 [...] Updated: 19-Nov-2020 17:17 by Rachel Stacy) Normal [facility] HEPARIN ASSAY,UFHon 11-20-19 21 HEPARIN ASSAY,UFH 0.2 IU/mL Normal [facility] Comment on above: Result Comment: The therapeutic reference range for UFH may be either 0.3-0.6 IU/mL or 0.3-0.7 IU/mL based on the clinical setting for anticoagulant therapy and the associated nomogram used. For heparin dosing guidelines based on clinical scenario and Heparin Assay results, please refer to local Pharmacy and the [facility] Guidelines for Anticoagulation therapy available on the [facility] intranet at: [email or web address] [email or web address] Performed By: #### T ROP2 #### [address] [id number] HEPARIN ASSAY,UFH 0.2 IU/mL Normal [facility] Comment on above: Result Comment: The therapeutic reference range for UFH may be either 0.3-0.6 IU/mL or 0.3-0.7 IU/mL based on the clinical setting for anticoagulant therapy and the associated nomogram used. For heparin dosing guidelines based on clinical scenario and Heparin Assay results, please refer to local Pharmacy and the [facility] Guidelines for Anticoagulation therapy available on the [facility] intranet at: [email or web address] [email or web address] Performed By: #### T ROP2 #### [address] [id number] HEPARIN ASSAY,UFH <0.1 Normal [facility] Comment on above: Result Comment: The therapeutic reference range for UFH may be either 0.3-0.6 IU/mL or 0.3-0.7 IU/mL based on the clinical setting for anticoagulant therapy and the associated nomogram used. For heparin dosing guidelines based on clinical scenario and Heparin Assay results, please refer to local Pharmacy and the [facility] Guidelines for Anticoagulation therapy available on the [facility] intranet at: [email or web address] [email or web address] Performed By: #### T ROP2 #### [address] [id number] MAGNESIUMon 11-19-2020 Magnesium [Mass/Vol] 1.80 mg/dL Normal 1.60 - 2.40 [facility] Comment on above: Performed By: #### T ROP2 #### [address] [id number] Measurementson 11-19-2020 Measurements Weight: Weight in kg124.7 kilogram(s) Height: Height in cm188 centimeter(s) Indian Unit Translation (pounds, inches): Measurement Indian Unit Translations (Adult only): Weight in icd374.916 pound(s) Electronic Signatures: Maggie Muir (STAFF N) (Signed 18-Nov-2020 23:08) Authored: Weight, Height, Indian Unit Translation (pounds, inches) Last Updated: 18-Nov-2020 23:08 by Maggie Muir (STAFF N) Normal [facility] PT/INRon 11-19-2020 PROTHROMBIN TIME Canceled Normal [facility] Comment on above: Order Comment: TEST PT/INR WAS CANCELLED, 11/19/2020 01:33 Performed By: #### P TINR #### [address] [id number] PT, INR Canceled Normal [facility] Comment on above: Order Comment: TEST PT/INR WAS CANCELLED, 11/19/2020 01:33 Performed By: #### P TINR #### [address] [id number] PT Coag (PPP) [Time] 12.8 s Normal 10.1 - 13.3 [facility] Comment on above: Performed By: #### P TINR #### [address] [id number] PT, INR 1.1 Normal 0.9 - 1.1 [facility] Comment on above: Performed By: #### P TINR #### [address] [id number] TROPONIN Ion 11-19-2020 Troponin I.cardiac [Mass/Vol] 10.69 ng/mL Critically high 0.00 - 0.03 [facility] Comment on above: Order Comment: Hedy [...] is performed using different testing methodology at [facility] than at other [facility]. Direct result comparisons should only be made within the same method. Marce- RB to Shelia GOODMAN , 11/19/2020 21:43 Performed By: #### T ROP2 #### [address] [id number] Troponin I.cardiac [Mass/Vol] 12.77 ng/mL Critically high 0.00 - 0.03 [facility] Comment on above: Order Comment: Hedy [...] is performed using different testing methodology at [facility] than at other [facility]. Direct result comparisons should only be made within the same method. Called- RB to Michaelle Frankie, 11/19/2020 13:36 Performed By: #### T ROP2 #### [address] [id number] Troponin I.cardiac [Mass/Vol] 18.39 ng/mL Critically high 0.00 - 0.03 [facility] Comment on above: Order Comment: Hedy [...] is performed using different testing methodology at [facility] than at other [facility]. Direct result comparisons should only be made within the same method. Called- RB to Omar Muir, 11/19/2020 06:26 Performed By: #### T ROP2 #### [address] [id number] TROPONIN I Canceled Normal [facility] Comment on above: Order Comment: Hedy [...] is performed using different testing methodology at [facility] than at other [facility]. Direct result comparisons should only be made within the same method. Performed By: #### T ROP2 #### [address] [id number] Troponin I.cardiac [Mass/Vol] 17.54 ng/mL Critically high 0.00 - 0.03 [facility] Comment on above: Order Comment: Knott [...] is performed using different testing methodology at [facility] than at other [facility]. Direct result comparisons should only be made within the same method. Called- RB to Bandar Cesar, 11/19/2020 02:22 Performed By: #### T ROP2 ####[facility] [place], [place] [id number] ACT-LOW RANGEon 11-18-2020 ACT-LOW RANGE 294 SECONDS High 89 - 169 [facility] Comment on above: Result Comment: Note new reference range as of 06/06/2018. Target ACT range will vary based on the patient population, clinical status, and surgical intervention occurring. Performed By: #### T ROP2 #### [facility] [address] [place], [place] [id number] ACT-LOW RANGE 207 SECONDS High 89 - 169 [facility] Comment on above: Result Comment: Note new reference range as of 06/06/2018. Target ACT range will vary based on the patient population, clinical status, and surgical intervention occurring. Performed By: #### T ROP2 #### [address] [id number] BNPon 11-18-2020 Natriuretic peptide B (Bld) [Mass/Vol] 33 pg/mL Normal 0 - 99 [facility] Comment on above: Result Comment: . <1 00 pg/mL - Heart failure unlikely 100-299 pg/mL - Intermediate probability of acute heart . failure exacerbation. Correlate with clinical . context and patient history. >=300 pg/mL - Heart Failure likely. Correlate with clinical . context and patient history. BNP testing is performed using different testing methodology at [facility] than at other [facility]. Direct result comparisons should only be made within the same method. Performed By: #### B MP #### [facility] [address] [place], [place] [id number] CBCon 11-18-2020 Erythrocyte distribution width (RBC) [Ratio] 13.3 % Normal 11.5 - 14.5 [facility] Comment on above: Performed By: #### C BC ####[facility] [place], [place] [id number] Hematocrit (Bld) [Volume fraction] 44.7 % Normal 41.0 - 52.0 [facility] Comment on above: Performed By: #### C BC ####[facility] [place], [place] [id number] Hemoglobin (Bld) [Mass/Vol] 14.6 g/dL Normal 13.5 - 17.5 [facility] Comment on above: Performed By: #### C BC ####[facility] [place], [place] [id number] MCHC (RBC) [Mass/Vol] 32.7 g/dL Normal 32.0 - 36.0 [facility] Comment on above: Performed By: #### C BC ####[address] [place], [place] [id number] MCV (RBC) [Entitic vol] 92 fL Normal 80 - 100 [facility] Comment on above: Performed By: #### C BC ####[address] [id number] Platelets (Bld) [#/Vol] 395 10*3/uL Normal 150 - 450 [facility] Comment on above: Performed By: #### C BC ####[facility] [place], [place] [id number] RBC 4.85 x10E12/L Normal 4.50 - 5.90 [facility] Comment on above: Performed By: #### C BC ####[facility] [place], [place] [id number] WBC (Bld) [#/Vol] 21.9 10*3/uL High 4.4 - 11.3 [facility] Comment on above: Performed By: #### C BC ####[address] [id number] CHEST 1 VIEWon 11-18-2020 CHEST 1 VIEW STUDY: Chest Radiograph; 11/18/2020 7:22 PM. INDICATION: Concern for dissection, chest pain. COMPARISON: None Available. ACCESSION NUMBER(S): [id number] ORDERING CLINICIAN: JERRY BLAIR MD TECHNIQUE: Frontal chest was obtained at 1919 hours. FINDINGS: CARDIOMEDIASTINAL SILHOUETTE: Cardiomediastinal silhouette is normal in size and configuration. LUNGS: Lungs are clear. ABDOMEN: No remarkable upper abdominal findings. BONES: No acute osseous changes. IMPRESSION: No acute cardiopulmonary process seen. Signed by Racquel Griffiths MD Electronically signed by: RACQUEL GRIFFITHS MD Normal [facility] COMPREHENSIVE PANELon 2020 Albumin [Mass/Vol] 4.2 g/dL Normal 3.4 - 5.0 [facility] Comment on above: Performed By: #### C MP ####[facility] [place], [place] [id number] ALP [Catalytic activity/Vol] 74 U/L Normal 33 - 120 [facility] Comment on above: Performed By: #### C MP ####[address] [place], [place] [id number] ALT [Catalytic activity/Vol] 19 U/L Normal 10 - 52 [facility] Comment on above: Result Comment: Carmelita ents treated with Sulfasalazine may generate falsely decreased results for ALT. Performed By: #### C MP ####[facility] [place], [place] [id number] Anion gap [Moles/Vol] 12 mmol/L Normal 10 - 20 [facility] Comment on above: Performed By: #### C MP ####[facility] [place], [place] [id number] AST [Catalytic activity/Vol] 15 U/L Normal 9 - 39 [facility] Comment on above: Performed By: #### C MP ####[facility] [place], [place] [id number] Bilirubin [Mass/Vol] 0.3 mg/dL Normal 0.0 - 1.2 [facility] Comment on above: Performed By: #### C MP ####[address] [id number] Calcium [Mass/Vol] 9.4 mg/dL Normal 8.6 - 10.3 [facility] Comment on above: Performed By: #### C MP ####[address] [id number] Chloride [Moles/Vol] 107 mmol/L Normal 98 - 107 [facility] Comment on above: Performed By: #### C MP ####[address] [id number] Creatinine [Mass/Vol] 1.12 mg/dL Normal 0.50 - 1.30 [facility] Comment on above: Performed By: #### C MP ####[address] [id number] GFR- AM. >60 Normal >60 [facility] Comment on above: Result Comment: CALC ULATIONS OF ESTIMATED GFR ARE PERFORMED USING THE MDRD STUDY EQUATION FOR THE IDMS-TRACEABLE CREATININE METHODS. CLIN CHEM 2007;53:766-72 Performed By: #### C MP ####[address] [id number] GFR-NON AM. >60 Normal >60 [facility] Comment on above: Performed By: #### C MP ####[facility] [place], [place] [id number] Glucose [Mass/Vol] 113 mg/dL High 74 - 99 [facility] Comment on above: Performed By: #### C MP ####[address] [place], [place] [id number] HCO3 (Bld) [Moles/Vol] 28 mmol/L Normal 21 - 32 [facility] Comment on above: Performed By: #### C MP ####[address] [place], [place] [id number] Potassium [Moles/Vol] 3.8 mmol/L Normal 3.5 - 5.3 [facility] Comment on above: Performed By: #### C MP ####[address] [id number] Protein [Mass/Vol] 7.0 g/dL Normal 6.4 - 8.2 [facility] Comment on above: Performed By: #### C MP ####[address] [id number] Sodium [Moles/Vol] 143 mmol/L Normal 136 - 145 [facility] Comment on above: Performed By: #### C MP ####[address] [id number] Urea nitrogen [Mass/Vol] 19 mg/dL Normal 6 - 23 [facility] Comment on above: Performed By: #### C MP ####[address] [id number] CORONAVIRUS 2019, SCREEN ASY MPTOMATICon 11-18-2020 SARS-CoV-2 (COVID-19) RNA ALLIE+probe Ql (Unsp spec) Not detected Normal Not Detected [facility] Comment on above: Result Comment: . This test has received FDA Emergency Use Authorization (EUA) and has been verified by [facility]. This test is only authorized for the duration of time that circumstances exist to justify the authorization of the emergency use of in vitro diagnostic tests for the detection of SARS-CoV-2 virus and/or diagnosis of COVID-19 infection under section 564(b)(1) of the Act, 21 U.S.C. 360bbb-3(b)(1), unless the authorization is terminated or revoked sooner. [facility] is certified under CLIA-88 as qualified to perform high complexity testing. Testing is performed in the [facility] laboratory located at [address] [place] [id number]. SARS-CoV-2/Flu/RSV Multiplex Test: Fact sheet for providers: https://www.fda.gov/media/172296/download Fact sheet for patients: https://www.fda.gov/media/109593/download Performed By: #### C OVSC ####[facility] [place], [place] [id number] Lab Specimen Source Nasal, Nasopharyngeal Normal [facility] Comment on above: Performed By: #### C OVSC ####[address] [place], [place] [id number] Covid 19 Resultson 1 SARS-CoV-2 (COVID-19) RNA [...] may also be contacted by the [facility] to see if any of your close [...] or Naproxen (Aleve) can also be used. Xfjy-wmk-ajggwxr cough and cold medicines can be used according to the instructions on the package. Some waoq-kev-rfeolwa medicines also contain acetaminophen. Make sure you [...] water are not available, use alcohol-based hand tank builder helper. Avoid touching your eyes, nose, and mouth [...] 24 oliva (more content not included)... Normal [facility] PCI (Percutaneous Cardiac In tervention)on 11-18-2020 PCI (Percutaneous Cardiac Intervention) [facility], Surface Plate Inspector [address] [place] [address] Cardiovascular Catheterization Report Patient Name: Ashok Doss Performing Physician: Sheridan Stacy MD Study Date: 11/18/2020 Verifying Physician: Sheridan Stacy MD MRN/PID: [id number] Instructional Technology Specialist: Accession/Order#: [id number] Referring Physician: [id number] José Miguel Posey MD Date of : [...] a modified Seldinger technique. Subsequently a 6 Azerbaijani sheath was placed in the right femoral [...] less than 10% distal stenosis. First septal sheet roller operator is moderately large and has 0% stenosis. [...] used. Complications (more content not included)... Normal [facility] Provider Note - ED v3on 11-02 Provider [...] try and relieve some of his symptoms. Surface Plate Inspector was activated prehospital and the Surface Plate Inspector team was at the bedside upon his arrival. Obtained a quick chest x-ray given he reported that the pain was sharp and radiating to his arm which not show pneumothorax and did not show a widened mediastinum so I doubt he is having dissection. Surface Plate Inspector was available so patient was taken directly to Surface Plate Inspector for percutaneous intervention for his ST segment elevation HI. I did speak with the director school of nursing team to let them know that the patient be coming to them afterwards. DIAGNOSIS: STEMI DISPOSITION: 1) Surface Plate Inspector HISTORY OF PRESENTING ILLNESS ASHOK is [...] Updated: 18-Nov-2020 20:27 by Jerry Blair) Normal [facility] TROPONIN Ion 11-18-2020 Troponin I.cardiac [Mass/Vol] 0.03 ng/mL Normal 0.00 - 0.03 [facility] Comment on above: Result Comment: LESS [...] is performed using different testing methodology at [facility] than at other [facility]. Direct result comparisons should only be made within the same method. Performed By: #### T ROP2 ####[facility] [place], [place] [id number] Troponinon 05-05-2020 Troponin I.cardiac [Mass/Vol] 7 ng/L Normal 0-22 [facility] Comment on above: Result Comment: High Sensitivity Troponin values cannot be compared with other Troponin methodologies. Patients with high levels of Biotin oral intake (i.e >5mg/day) may have falsely decreased Troponin levels. Samples collected within 8 hours of biotin intake may require additional information for diagnosis. Performed By: #### T WILLY #### [employer] [address] [place] [address] [phone] Chemical Preparer: Shane Peña MD Troponin I.cardiac [Mass/Vol] NOT REPORTED [employer] Phone: Troponin T.cardiac [Mass/Vol] NOT REPORTED <0.03 ng/mL [employer] Phone: Troponin, High Sensitivity 7 ng/L 0 - 22 ng/L [employer] Phone: Comment on above: High Sensitivity Troponin values cannot be compared with other Troponin methodologies. Patients with high levels of Biotin oral intake (i.e >5mg/day) may have falsely decreased Troponin levels. Samples collected within 8 hours of biotin intake may require additional information for diagnosis. Troponinon 05-04-2020 Troponin I.cardiac [Mass/Vol] NOT REPORTED Normal [facility] Comment on above: Performed By: #### T WILLY #### [employer] [address] [place] [address] [phone] Chemical Preparer: Shane Peña MD CBCon 05-03-2020 Erythrocyte distribution width (RBC) [Ratio] 12.9 % Normal 11.8-14.4 [facility] Comment on above: Performed By: #### C BC, CP, LIPR, TSH #### [employer] [address] [place] [address] [id number] Chemical Preparer: Shane Peña MD Hematocrit (Bld) [Volume fraction] 43.3 % Normal 40.7-50.3 [facility] Comment on above: Performed By: #### C BC, CP, LIPR, TSH #### [facility] [address] [place] [address] Chemical Preparer: Shane Peña MD Hemoglobin (Bld) [Mass/Vol] 14.0 g/dL Normal 13.0-17.0 [facility] Comment on above: Performed By: #### C BC, CP, LIPR, TSH #### [facility] [address] [place] [address] Chemical Preparer: Shane Peña MD MCH (RBC) [Entitic mass] 29.6 pg Normal 25.2-33.5 [facility] Comment on above: Performed By: #### C BC, CP, LIPR, TSH #### [address] [address] Chemical Preparer: Shane Peña MD MCHC (RBC) [Mass/Vol] 32.3 g/dL Normal 28.4-34.8 [facility] Comment on above: Performed By: #### C BC, CP, LIPR, TSH #### [address] [address] Chemical Preparer: Shane Peña MD MCV (RBC) [Entitic vol] 91.5 fL Normal 82.6-102.9 [facility] Comment on above: Performed By: #### C BC, CP, LIPR, TSH #### [facility] [address] [place] [address] Chemical Preparer: Shane Peña MD NRBC Automated 0.0 per 100 WBC Normal 0.0 [facility] Comment on above: Performed By: #### C BC, CP, LIPR, TSH #### [facility] [address] [place] [address] Chemical Preparer: Shane Peña MD Platelet mean volume (Bld) [Entitic vol] 9.1 fL Normal 8.1-13.5 [facility] Comment on above: Performed By: #### C BC, CP, LIPR, TSH #### [facility] [address] [place] [address] Chemical Preparer: Shane Peña MD Platelets (Bld) [#/Vol] 410 10*3/uL Normal 138-453 [facility] Comment on above: Performed By: #### C BC, CP, LIPR, TSH #### [facility] [address] [place] [address] Chemical Preparer: Shane Peña MD RBC (Bld) [#/Vol] 4.73 10*6/uL Normal 4.21-5.77 [facility] Comment on above: Performed By: #### C BC, CP, LIPR, TSH #### [facility] [address] [place] [address] Chemical Preparer: Shane Peña MD WBC (Bld) [#/Vol] 14.2 10*3/uL High 3.5-11.3 [facility] Comment on above: Performed By: #### C BC, CP, LIPR, TSH #### [facility] [address] [place] [address] Chemical Preparer: Shane Peña MD Erythrocyte distribution width (RBC) [Ratio] 12.9 % 11.8 - 14.4 % [employer] Phone: Hematocrit (Bld) [Volume fraction] 43.3 % 40.7 - 50.3 % [employer] Phone: Hemoglobin (Bld) [Mass/Vol] 14.0 g/dL 13 - 17 g/dL [employer] Phone: Interpretation and review of laboratory results Abnormal [employer] Phone: MCH (RBC) [Entitic mass] 29.6 pg 25.2 - 33.5 pg [employer] Phone: MCHC (RBC) [Mass/Vol] 32.3 g/dL 28.4 - 34.8 g/dL [employer] Phone: MCV (RBC) [Entitic vol] 91.5 fL 82.6 - 102.9 fL [employer] Phone: Platelet mean volume (Bld) [Entitic vol] 9.1 fL 8.1 - 13.5 fL [employer] Phone: Platelets (Bld) [#/Vol] 410 10*3/uL [employer] Phone: RBC (Bld) [#/Vol] 4.73 10*6/uL 4.21 - 5.7 7 m/uL [employer] Phone: WBC (Bld) [#/Vol] 0.0 10*3/uL 0.0 per 10 0 WBC [employer] Phone: WBC (Bld) [#/Vol] 14.2 10*3/uL High [employer] Phone: Comp Metabolic Profon 2020 (cont.) Normal [facility] Comment on above: Result Comment: Aver age GFR for 50-59 years old: 93 mL/min/1.73sq m Chronic Kidney Disease: <60 mL/min/1.73sq m Kidney failure: <15 mL/min/1.73sq m eGFR calculated using average adult body mass. Additional eGFR calculator available at: http://www.[employer]/multiple_crcl_2011.htm Performed By: #### C BC, CP, LIPR, TSH #### [employer] [place] [address] Chemical Preparer: Shane Peña MD Albumin [Mass/Vol] 4.1 g/dL Normal 3.5-5.2 [facility] Comment on above: Performed By: #### C BC, CP, LIPR, TSH #### [address] [address] Chemical Preparer: Shane Peña MD Albumin/Globulin [Mass ratio] 1.8 {ratio} Normal 1.0-2.5 [facility] Comment on above: Performed By: #### C BC, CP, LIPR, TSH #### [address] [address] Chemical Preparer: Shane Peña MD Alkaline Phos 80 U/L Normal 40-129 [facility] Comment on above: Performed By: #### C BC, CP, LIPR, TSH #### [address] [address] Chemical Preparer: Shane Peña MD ALT [Catalytic activity/Vol] 18 U/L Normal 5-41 [facility] Comment on above: Performed By: #### C BC, CP, LIPR, TSH #### [address] [address] Chemical Preparer: Shane Peña MD Anion gap [Moles/Vol] 9 mmol/L Normal 9-17 [facility] Comment on above: Performed By: #### C BC, CP, LIPR, TSH #### [facility] [address] [place] [address] Chemical Preparer: Shane Peña MD AST [Catalytic activity/Vol] 15 U/L Normal <40 [facility] Comment on above: Performed By: #### C BC, CP, LIPR, TSH #### [facility] [address] [place] [address] Chemical Preparer: Shane Peña MD Bilirubin Ql (U) 0.32 mg/dL Normal 0.3-1.2 [facility] Comment on above: Performed By: #### C BC, CP, LIPR, TSH #### [facility] [address] [place] [address] Chemical Preparer: Shane Peña MD Calcium [Mass/Vol] 9.4 mg/dL Normal 8.6-10.4 [facility] Comment on above: Performed By: #### C BC, CP, LIPR, TSH #### [facility] [address] [place] [address] Chemical Preparer: Shane Peña MD Chloride [Moles/Vol] 102 mmol/L Normal 98-107 [facility] Comment on above: Performed By: #### C BC, CP, LIPR, TSH #### [facility] [address] [place] [phone] Chemical Preparer: Shane Peña MD CO2 [Moles/Vol] 26 mmol/L Normal 20-31 [facility] Comment on above: Performed By: #### C BC, CP, LIPR, TSH #### [address] [address] Chemical Preparer: Shane Peña MD Creatinine [Mass/Vol] 0.86 mg/dL Normal 0.70-1.20 [facility] Comment on above: Performed By: #### C BC, CP, LIPR, TSH #### [facility] [address] [place] [phone] Chemical Preparer: Shane Peña MD GFR, Amer >60 Normal >60 [facility] Comment on above: Performed By: #### C BC, CP, LIPR, TSH #### [facility] [address] [place] [phone] Chemical Preparer: Shane Peña MD GFR,non Amer >60 Normal >60 [facility] Comment on above: Performed By: #### C BC, CP, LIPR, TSH #### [facility] [address] [place] [phone] Chemical Preparer: Shane Peña MD Glucose [Mass/Vol] 95 mg/dL Normal 70-99 [facility] Comment on above: Performed By: #### C BC, CP, LIPR, TSH #### [facility] [address] [place] [address] Chemical Preparer: Shane Peña MD Potassium [Moles/Vol] 4.3 mmol/L Normal 3.7-5.3 [facility] Comment on above: Performed By: #### C BC, CP, LIPR, TSH #### [facility] [address] [place] [phone] Chemical Preparer: Shane Peña MD Protein [Mass/Vol] 6.4 g/dL Normal 6.4-8.3 [facility] Comment on above: Performed By: #### C BC, CP, LIPR, TSH #### [facility] [address] [place] [phone] Chemical Preparer: Shane Peña MD Sodium [Moles/Vol] 137 mmol/L Normal 135-144 [facility] Comment on above: Performed By: #### C BC, CP, LIPR, TSH #### [facility] [address] [place] [address] Chemical Preparer: Shane Peña MD Urea nitrogen [Mass/Vol] 17 mg/dL Normal 6-20 [facility] Comment on above: Performed By: #### C BC, CP, LIPR, TSH #### [facility] [address] [place] [address] Chemical Preparer: Shane Peña MD BUN/CRE Ratio NOT REPORTED Normal 9-20 [facility] Comment on above: Performed By: #### C BC, CP, LIPR, TSH #### [facility] [address] [place] [address] Chemical Preparer: Shane Peña MD Staging: NOT REPORTED Normal [facility] Comment on above: Performed By: #### C BC, CP, LIPR, TSH #### [employer] [address] [place] [address] Chemical Preparer: Shane Peña MD Comprehensive Metabolic Pane feng 05-03-2020 Albumin [Mass/Vol] 4.1 g/dL 3.5 - 5.2 g/dL [employer] Phone: Albumin/Globulin [Mass ratio] 1.8 {ratio} [employer] Phone: ALP [Catalytic activity/Vol] 80 U/L 40 - 129 U/L [employer] Phone: ALT [Catalytic activity/Vol] 18 U/L 5 - 41 U/L [employer] Phone: Anion gap [Moles/Vol] 9 mmol/L 9 - 17 mmol/L [employer] Phone: AST [Catalytic activity/Vol] 15 U/L <40 [employer] Phone: Bilirubin Ql (U) 0.32 mg/dL 0.3 - 1.2 mg/dL [employer] Phone: Bun/Cre Ratio NOT REPORTED [facility] Work Phone: Calcium [Mass/Vol] 9.4 mg/dL 8.6 - 10. 4 mg/dL [employer] Phone: Chloride [Moles/Vol] 102 mmol/L 98 - 10 7 mmol/L [employer] Phone: CO2 [Moles/Vol] 26 mmol/L 20 - 31 mmol/L [employer] Phone: Creatinine [Mass/Vol] 0.86 mg/dL 0.7 - 1.2 mg/dL [employer] Phone: GFR >60 >60 mL/min [employer] Phone: GFR Non- >60 >60 mL/min [employer] Phone: GFR/1.73 sq M predicted among non-blacks MDRD (S/P/Bld) [Vol rate/Area] [employer] Phone: Comment on above: Average GFR for 50-5 9 years old: 93 mL/min/1.73sq m Chronic Kidney Disease: <60 mL/min/1.73sq m Kidney failure: <15 mL/min/1.73sq m eGFR calculated using average adult body mass. Additional eGFR calculator available at: http://www.Zap[employer]/multiple_crcl_2012.htm GFR/1.73 sq M predicted among non-blacks MDRD (S/P/Bld) [Vol rate/Area] NOT REPORTED [employer] Phone: Glucose [Mass/Vol] 95 mg/dL 70 - 99 mg/dL [employer] Phone: Potassium [Moles/Vol] 4.3 mmol/L 3.7 - 5.3 mmol/L [employer] Phone: Protein [Mass/Vol] 6.4 g/dL 6.4 - 8.3 g/dL [employer] Phone: Sodium [Moles/Vol] 137 mmol/L 135 - 144 mmol/L [employer] Phone: Urea nitrogen [Mass/Vol] 17 mg/dL 6 - 20 mg/dL [employer] Phone: Lipid Panelon 05-03-2020 Cholesterol [Mass/Vol] 172 mg/dL <200 [employer] Phone: Comment on above: Cholesterol Guidelines: <200 Desirable 200-240 Borderline >240 Undesirable Cholesterol in HDL [Mass/Vol] 38 mg/dL Low >40 [employer] Phone: Comment on above: HDL Guidelines: <40 Undesirable 40-59 Borderline >59 Desirable Cholesterol in LDL [Mass/Vol] 106 mg/dL 0 - 130 mg/dL [employer] Phone: Comment on above: LDL Guidelines: <100 Desirable 100-129 Near to/above Desirable 130-159 Borderline >159 Undesirable Direct (measured) LDL and calculated LDL are not interchangeable tests. Cholesterol in VLDL [Mass/Vol] NOT REPORTED 1 - 30 mg/dL [employer] Phone: Cholesterol.total/Ch olesterol in HDL [Mass ratio] 4.5 {ratio} <5 [employer] Phone: Interpretation and review of laboratory results Abnormal [employer] Phone: Triglyceride [Mass/Vol] 138 mg/dL <150 [employer] Phone: Comment on above: Triglyceride Guidelines: <150 Desirable 150-199 Borderline 200-499 High >499 Very high Based on AHA Guidelines for fasting triglyceride, December 2011. Lipid Profileon 05-03-2020 Cholesterol [Mass/Vol] 172 mg/dL Normal <200 [facility] Comment on above: Result Comment: Cholesterol Guidelines: <200 Desirable 200-240 Borderline >240 Undesirable Performed By: #### C BC, CP, LIPR, TSH #### [employer] [address] [place] [address] [phone] Chemical Preparer: Shane Peña MD Cholesterol in HDL [Mass/Vol] 38 mg/dL Low >40 [facility] Comment on above: Result Comment: HDL Guidelines: <40 Undesirable 40-59 Borderline >59 Desirable Performed By: #### C BC, CP, LIPR, TSH #### [employer] [address] [place] [address] Chemical Preparer: Shane Peña MD Cholesterol in LDL [Mass/Vol] 106 mg/dL Normal 0-130 [facility] Comment on above: Result Comment: LDL Guidelines: <100 Desirable 100-129 Near to/above Desirable 130-159 Borderline >159 Undesirable Direct (measured) LDL and calculated LDL are not interchangeable tests. Performed By: #### C BC, CP, LIPR, TSH #### [employer] [address] [place] [address] [phone] Chemical Preparer: Shane Peña MD Cholesterol.total/Ch olesterol in HDL [Mass ratio] 4.5 {ratio} Normal <5 [facility] Comment on above: Performed By: #### Haley POTTER CP, LIPR, TSH #### [employer] [address] [place] [address] Chemical Preparer: Shane Peña MD Triglyceride [Mass/Vol] 138 mg/dL Normal <150 [facility] Comment on above: Result Comment: Triglyceride Guidelines: <150 Desirable 150-199 Borderline 200-499 High >499 Very high Based on AHA Guidelines for fasting triglyceride, December 2011. Performed By: #### Haley POTTER CP, LIPR, TSH #### [facility] [address] [place] [address] [phone] Chemical Preparer: Shane Peña MD Cholesterol in VLDL [Mass/Vol] NOT REPORTED Normal 1-30 [facility] Comment on above: Performed By: #### Haley POTTER CP, LIPR, TSH #### [employer] [address] [place] [address] [phone] Chemical Preparer: Shane Peña MD TSH without Reflexon 021 TSH Qn 1.35 m[IU]/L [facility] Work Phone: Thyroid Stim. Horm.on 2020 TSH Qn 1.35 m[IU]/L Normal 0.30-5.00 [facility] Comment on above: Performed By: #### Haley POTTER CP, LIPR, TSH #### [employer] [address] [place] [address] [phone] Chemical Preparer: Shane Peña MD XR CHEST (2 VW)on [...] Stephan Soto MD 05/03/20 Final result Normal [facility] No evidence for acut e cardiopulmonary pathology. [employer] Phone: EXAMINATION: TWO XRA Y VIEWS OF [...] structures and soft tissues are grossly intact. [employer] Phone: Robert, Mhpn Incoming Radiant Results From [employer] - 05/03/2020 11:24 AM EST EXAMINATION: TWO [...] IMPRESSION: No evidence for acute cardiopulmonary pathology. [employer] Phone: Covid-19 Ambulatoryon 2019 SARS-CoV-2, ALLIE Not Detected Not Detected [facility] [place] Comment on above: (NOTE) This nucleic acid amplification test was developed and its performance characteristics determined by [employer]. Nucleic acid amplification tests include PCR and [...] detected) result in this assay. Performed At: [facility] [address] [facility], [place] [id number] Lilian Severino [facility] Ph:[phone] [id number] 11-09-2019 SARS-CoV-2 Not Detected Normal Not Detected [facility] Comment on above: Result Comment: (NOT E) This nucleic acid amplification test was developed and its performance characteristics determined by [employer]. Nucleic acid amplification tests include PCR and [...] detected) result in this assay. Performed At: [facility] [address] [facility], [place] [id number] Lilian Severino [facility] Ph:[phone] Performed By: #### A COV #### [facility] [address] [place] [address] Chemical Preparer: Deborah Ramsey MD EKG 12 Leadon 11-04-2019 Atrial Rate 82 BPM [place] P [place] 52 degrees [place] P-R Interval 146 ms [place] Q-T Interval 388 ms [place] QRS Duration 102 ms [place] QTc Calculation (Bazett) 453 ms [place] R [place] -21 degrees [place] T [place] 58 degrees [place] Ventricular Rate 82 BPM [place], [place] Robert, Mhpn Incoming E kg Results From [employer] - 11/04/2019 10:29 AM EDT Normal sinus rhythm Normal ECG No previous ECGs available [place] Normal sinus rhythm Normal ECG No previous ECGs available [place] Basic Metabolic Panelon - Anion gap [Moles/Vol] 10 mmol/L 9 - 17 mmol/L [place] Bun/Cre Ratio NOT REPORTED [place] Calcium [Mass/Vol] 9.2 mg/dL 8.6 - 10. 4 mg/dL [place] Chloride [Moles/Vol] 104 mmol/L 98 - 10 7 mmol/L [place] CO2 [Moles/Vol] 27 mmol/L 20 - 31 mmol/L [place] Creatinine [Mass/Vol] 0.83 mg/dL 0.7 - 1.2 mg/dL [place] GFR >60 >60 mL/min [place] GFR Non- >60 >60 mL/min [place] GFR/1.73 sq M predicted among non-blacks MDRD (S/P/Bld) [Vol rate/Area] [place] Comment on above: Average GFR for 50-5 9 years old: 93 mL/min/1.73sq m Chronic Kidney Disease: <60 mL/min/1.73sq m Kidney failure: <15 mL/min/1.73sq m eGFR calculated using average adult body mass. Additional eGFR calculator available at: http://www.[employer]/multiple_crcl_2012.htm GFR/1.73 sq M predicted among non-blacks MDRD (S/P/Bld) [Vol rate/Area] NOT REPORTED [place] Glucose [Mass/Vol] 103 mg/dL High 70 - 99 mg/dL [place] Interpretation and review of laboratory results Abnormal [place] Potassium [Moles/Vol] 4.5 mmol/L 3.7 - 5.3 mmol/L [place] Sodium [Moles/Vol] 141 mmol/L 135 - 144 mmol/L [place] Urea nitrogen [Mass/Vol] 18 mg/dL 6 - 20 mg/dL [place] Basic Metabolic Profon 11-01 (cont.) Normal [facility] Comment on above: Result Comment: Aver age GFR for 50-59 years old: 93 mL/min/1.73sq m Chronic Kidney Disease: <60 mL/min/1.73sq m Kidney failure: <15 mL/min/1.73sq m eGFR calculated using average adult body mass. Additional eGFR calculator available at: http://www.[employer]/multiple_crcl_2012.htm Performed By: #### C KLAUS, BMP #### [facility] [address] [place] [address] Chemical Preparer: Cheko Boykin DO Anion gap [Moles/Vol] 10 mmol/L Normal 9-17 [facility] Comment on above: Performed By: #### C KLAUS, BMP #### [facility] [address] [place] [address] Chemical Preparer: Cheko Boykin DO Calcium [Mass/Vol] 9.2 mg/dL Normal 8.6-10.4 [facility] Comment on above: Performed By: #### C KLAUS, BMP #### [facility] [place] [address] Chemical Preparer: Cheko Boykin DO Chloride [Moles/Vol] 104 mmol/L Normal 98-107 [facility] Comment on above: Performed By: #### C DP, BMP #### [facility] [address] [place] [address] Chemical Preparer: Cheko Boykin DO CO2 [Moles/Vol] 27 mmol/L Normal 20-31 [facility] Comment on above: Performed By: #### C DP, BMP #### [facility] [address] [place] [address] Chemical Preparer: Cheko Boykin DO Creatinine [Mass/Vol] 0.83 mg/dL Normal 0.70-1.20 [facility] Comment on above: Performed By: #### C DP, BMP #### [facility] [place] [address] Chemical Preparer: Cheko Boykin DO GFR, Amer >60 Normal >60 [facility] Comment on above: Performed By: #### C DP, BMP #### [facility] [address] [place] [address] Chemical Preparer: Cheko Boykin DO GFR,non Amer >60 Normal >60 [facility] Comment on above: Performed By: #### C DP, BMP #### [facility] [place] [address] Chemical Preparer: Cheko Boykin DO Glucose [Mass/Vol] 103 mg/dL High 70-99 [facility] Comment on above: Performed By: #### C DP, BMP #### [facility] [place] [address] Chemical Preparer: Cheko Boykin DO Potassium [Moles/Vol] 4.5 mmol/L Normal 3.7-5.3 [facility] Comment on above: Performed By: #### C DP, BMP #### [facility] [address] [facility] [place] [address] Chemical Preparer: Cheko Boykin DO Sodium [Moles/Vol] 141 mmol/L Normal 135-144 [facility] Comment on above: Performed By: #### C DP, BMP #### [facility] [address] [facility] [place] [address] Chemical Preparer: Cheko Boykin DO Urea nitrogen [Mass/Vol] 18 mg/dL Normal -20 [facility] Comment on above: Performed By: #### C DP, BMP #### [facility] [address] [place] [address]. [place] [address] Chemical Preparer: Cheko Boykin DO BUN/CRE Ratio NOT REPORTED Normal -20 [facility] Comment on above: Performed By: #### C DP, BMP #### [facility] [address] [place] [address]. [place] [address] Chemical Preparer: Cheko Boykin DO Staging: NOT REPORTED Normal [facility] Comment on above: Performed By: #### C DP, BMP #### [facility] [address] [place] [address] Chemical Preparer: Cheko Boykin DO CBC Auto Differentialon 08-3 Basophils (Bld) [#/Vol] 0.10 10*3/uL [facility], [place] Basophils/100 WBC (Bld) 1 % 0 - 2 % [place] Differential Type NOT REPORTED [place] Eosinophils (Bld) [#/Vol] 0.60 10*3/uL [place] Eosinophils/100 WBC (Bld) 4 % 0 - 4 % [place] Erythrocyte distribution width (RBC) [Ratio] 13.9 % 11.5 - 14.9 % [place] Hematocrit (Bld) [Volume fraction] 42.4 % 41 - 53 % [place] Hemoglobin (Bld) [Mass/Vol] 14.5 g/dL 13.5 - 17.5 g/dL [place] Interpretation and review of laboratory results Abnormal [place] Lymphocytes (Bld) [#/Vol] 4.00 10*3/uL [place] Lymphocytes/100 WBC (Bld) 29 % 24 - 44 % [place] MCH (RBC) [Entitic mass] 30.5 pg 26 - 34 pg [place] MCHC (RBC) [Mass/Vol] 34.2 g/dL 31 - 37 g/dL [place] MCV (RBC) [Entitic vol] 89.1 fL 80 - 100 fL [place] Monocytes (Bld) [#/Vol] 1.00 10*3/uL [place] Monocytes/100 WBC (Bld) 7 % 1 - 7 % [place] Platelet mean volume (Bld) [Entitic vol] 7.1 fL 6 - 12 fL [place] Platelets (Bld) [#/Vol] 378 10*3/uL [place] Platelets (Bld) [#/Vol] NOT REPORTED [place] RBC (Bld) [#/Vol] 4.76 10*6/uL 4.5 - 5.9 m/uL [place] RBC morphology finding Nom (Bld) NOT REPORTED [place] Segmented neutrophils/100 WBC (Bld) 59 % 36 - 66 % [place] Segs Absolute 8.30 [place] WBC (Bld) [#/Vol] 13.9 10*3/uL [place] WBC (Bld) [#/Vol] NOT REPORTED per 100 WBC [place] WBC Morphology NOT REPORTED [place] CBC with Diffon 11-02-2019 Abs. Basophil 0.10 k/uL Normal 0.0-0.2 [facility] Comment on above: Performed By: #### C DP, BMP #### [facility] [address] [place] [address] Chemical Preparer: Cheko Byokin DO Abs.Neutrophil (Seg) 8.30 k/uL Normal 1.3-9.1 [facility] Comment on above: Performed By: #### C DP, BMP #### [facility] [address] [place] [address] Chemical Preparer: Cheko Boykin DO Basophils/100 WBC (Bld) 1 % Normal 0-2 [facility] Comment on above: Performed By: #### C DP, BMP #### [facility] [place] [address] Chemical Preparer: Cheko Boykin DO Eosinophils (Bld) [#/Vol] 0.60 10*3/uL High 0.0-0.4 [facility] Comment on above: Performed By: #### C KLAUS, BMP #### [facility] [place] [address] Chemical Preparer: Cheko Boykin DO Eosinophils/100 WBC (Bld) 4 % Normal 0-4 [facility] Comment on above: Performed By: #### C DP, BMP #### [facility] [place] [address] Chemical Preparer: Cheko Boykin DO Erythrocyte distribution width (RBC) [Ratio] 13.9 % Normal 11.5-14.9 [facility] Comment on above: Performed By: #### C DP, BMP #### [facility] [facility] [place] [address] Chemical Preparer: Cheko Boykin DO Hematocrit (Bld) [Volume fraction] 42.4 % Normal 41-53 [facility] Comment on above: Performed By: #### C DP, BMP #### [facility] [place] [address] Chemical Preparer: Cheko Boykin DO Hemoglobin (Bld) [Mass/Vol] 14.5 g/dL Normal 13.5-17.5 [facility] Comment on above: Performed By: #### C DP, BMP #### [facility] [address] [place] [address] Chemical Preparer: Cheko Boykin DO Lymphocytes (Bld) [#/Vol] 4.00 10*3/uL Normal 1.0-4.8 [facility] Comment on above: Performed By: #### C DP, BMP #### [facility] [place] [address] Chemical Preparer: Cheko Boykin DO Lymphocytes/100 WBC (Bld) 29 % Normal 24-44 [facility] Comment on above: Performed By: #### C KLAUS, BMP #### [facility] [address] [place] [address] Chemical Preparer: Cheko Boykin DO MCH (RBC) [Entitic mass] 30.5 pg Normal 26-34 [facility] Comment on above: Performed By: #### C KLAUS, BMP #### [facility] [address] [place] [address] Chemical Preparer: Cheko Boykin DO MCHC (RBC) [Mass/Vol] 34.2 g/dL Normal 31-37 [facility] Comment on above: Performed By: #### C DP, BMP #### [facility] [place] [address] Chemical Preparer: Cheko Boykin DO MCV (RBC) [Entitic vol] 89.1 fL Normal 80-100 [facility] Comment on above: Performed By: #### C DP, BMP #### [facility] [address] [place] [address] Chemical Preparer: Cheko Boykin DO Monocytes (Bld) [#/Vol] 1.00 10*3/uL Normal 0.1-1.3 [facility] Comment on above: Performed By: #### C DP, BMP #### [facility] [address] [place] [address] Chemical Preparer: Cheko Boykin DO Monocytes/100 WBC (Bld) 7 % Normal 1-7 [facility] Comment on above: Performed By: #### C DP, BMP #### [facility] [address] [place] [address] Chemical Preparer: Cheko Boykin DO Neutrophil (Seg) 59 % Normal 36-66 [facility] Comment on above: Performed By: #### C DP, BMP #### [facility] [place] [address] Chemical Preparer: Cheko Boykin DO Platelet mean volume (Bld) [Entitic vol] 7.1 fL Normal 6.0-12.0 [facility] Comment on above: Performed By: #### C KLAUS, BMP #### [facility] [place] [address] Chemical Preparer: Cheko Boykin DO Platelets (Bld) [#/Vol] 378 10*3/uL Normal 150-450 [facility] Comment on above: Performed By: #### C KLAUS, BMP #### [facility] [address] [place] [address] Chemical Preparer: Cheko Boykin DO RBC (Bld) [#/Vol] 4.76 10*6/uL Normal 4.5-5.9 [facility] Comment on above: Performed By: #### C DP, BMP #### [facility] [address] [place] [address] Chemical Preparer: Fanelly, Cheko, DO WBC (Bld) [#/Vol] 13.9 10*3/uL High 3.5-11.0 [facility] Comment on above: Performed By: #### C DP, BMP #### [facility] [address] [place] [address] Chemical Preparer: Cheko Boykin DO Abs.Imm.Granulocyte NOT REPORTED Normal 0.00-0.30 [facility] Comment on above: Performed By: #### C DP, BMP #### [facility] [address] [place] [address] Chemical Preparer: Cheko Boykin DO Auto Diff Performed NOT REPORTED Normal [facility] Comment on above: Performed By: #### C DP, BMP #### [facility] [address] [place] [address] Chemical Preparer: Cheko Boykin DO Immature granulocytes (Bld) [#/Vol] NOT REPORTED Normal 0 [facility] Comment on above: Performed By: #### C DP, BMP #### [facility] [address] [place] [address] Chemical Preparer: Cheko Boykin DO NRBC Automated NOT REPORTED Normal [facility] Comment on above: Performed By: #### C DP, BMP #### [facility] [address] [place] [address] Chemical Preparer: Cheko Boykin DO Platelets (Bld) [#/Vol] NOT REPORTED Normal [facility] Comment on above: Performed By: #### C DP, BMP #### [facility] [address] [place] [address] Chemical Preparer: Cheko Boykin DO RBC morphology finding Nom (Bld) NOT REPORTED Normal [facility] Comment on above: Performed By: #### C DP, BMP #### [facility] [address] [place] [address] [place] [address] Chemical Preparer: Cheko Boykin DO WBC Morphology NOT REPORTED Normal [facility] Comment on above: Performed By: #### C KLAUS, LORE #### [facility] [address] [place] [address] Chemical Preparer: Cheko Boykin DO Otheron 11-02-2019 Immature granulocytes (Bld) [#/Vol] NOT REPORTED 0 % [place] MRI KNEE LEFT WO CONTRASTon 10-28-2019 [...] quadriceps tendinosis. 3. Moderate joint effusion. 4. Mwnb-do-xvyrsctw patellofemoral chondromalacia. Mild medial compartment chondromalacia. Superimposed partial and full-thickness fissuring of the weight-bearing medial femoral condyle. 5. Mild edema in the soft tissues about the knee. Interpreted by: Simeon Long MD Signed by: Simeon Long MD 10/28/19 Final result Normal [facility] 1. Complex multidirectional tearing and volume loss in the posterior horn of the medial meniscus. Degeneration and outward extrusion of the medial meniscus body. 2. Mild multifocal patellar tendinosis. Mild distal quadriceps tendinosis. 3. Moderate joint effusion. 4. Ukbf-ak-ajihdolh patellofemoral chondromalacia. Mild medial compartment chondromalacia. Superimposed partial and full-thickness fissuring of the weight-bearing medial femoral condyle. 5. Mild edema in the soft tissues about the knee. [place] EXAMINATION: MRI OF THE LEFT KNEE [...] in the soft tissues about the knee. [facility] [place], [place] Robert, Mhpn Incoming Radiant Results From [employer] - 10/28/2019 3:10 PM EDT EXAMINATION: MRI [...] quadriceps tendinosis. 3. Moderate joint effusion. 4. Dziy-de-dhbzmkqm patellofemoral chondromalacia. Mild medial compartment chondromalacia. Superimposed partial and full-thickness fissuring of the weight-bearing medial femoral condyle. 5. Mild edema in the soft tissues about the knee. [place] XR KNEE LEFT (3 VIEWS)on XR [...] Roz Mora MD 09/29/19 Final result [facility] Small joint effusion. [place] EXAMINATION: THREE X RAY VIEWS OF [...] within the medial compartment. Small joint effusion. [place] Robert, Mhpn Incoming Radiant Results From [employer] SL - 09/29/2019 2:11 PM EDT EXAMINATION: THREE [...] Small joint effusion. IMPRESSION: Small joint [place]. [place] Uric Acidon 09-28-2019 Urate [Mass/Vol] 6.0 mg/dL 3.4 - 7 mg/dL [place] Uric Acidon 12-09-2018 Urate [Mass/Vol] 5.8 mg/dL 3.4 - 7 mg/dL [place] CBCon 11-05-2018 Erythrocyte distribution width (RBC) [Ratio] 13.1 % 11.8 - 14.4 % [place] Hematocrit (Bld) [Volume fraction] 46.1 % 40.7 - 50.3 % [place] Hemoglobin (Bld) [Mass/Vol] 14.9 g/dL 13 - 17 g/dL [place] Interpretation and review of laboratory results Abnormal [place] MCH (RBC) [Entitic mass] 31.0 pg 25.2 - 33.5 pg [place] MCHC (RBC) [Mass/Vol] 32.3 g/dL 28.4 - 34.8 g/dL [place] MCV (RBC) [Entitic vol] 95.8 fL 82.6 - 102.9 fL [place] Platelet mean volume (Bld) [Entitic vol] 9.2 fL 8.1 - 13.5 fL [place] Platelets (Bld) [#/Vol] 374 10*3/uL [place] RBC (Bld) [#/Vol] 4.81 10*6/uL 4.21 - 5.7 7 m/uL [place] WBC (Bld) [#/Vol] 11.8 10*3/uL [place] WBC (Bld) [#/Vol] 0.0 10*3/uL 0.0 per 10 0 WBC [place] Comprehensive Metabolic Pane feng 11-05-2018 Albumin [Mass/Vol] 4.2 g/dL 3.5 - 5.2 g/dL [place] Albumin/Globulin [Mass ratio] 1.7 {ratio} [place] ALP [Catalytic activity/Vol] 83 U/L 40 - 129 U/L [place] ALT [Catalytic activity/Vol] 19 U/L 5 - 41 U/L [place] Anion gap [Moles/Vol] 16 mmol/L 9 - 17 mmol/L [place] AST [Catalytic activity/Vol] 15 U/L <40 [place] Bilirubin Ql (U) 0.29 mg/dL Low 0.3 - 1.2 mg/dL [place] Bun/Cre Ratio NOT REPORTED [place] Calcium [Mass/Vol] 9.5 mg/dL 8.6 - 10. 4 mg/dL [place] Chloride [Moles/Vol] 104 mmol/L 98 - 10 7 mmol/L [place] CO2 [Moles/Vol] 26 mmol/L 20 - 31 mmol/L [place] Creatinine [Mass/Vol] 0.81 mg/dL 0.7 - 1.2 mg/dL [place] GFR >60 >60 mL/min [place] GFR Non- >60 >60 mL/min [place] GFR/1.73 sq M predicted among non-blacks MDRD (S/P/Bld) [Vol rate/Area] NOT REPORTED [place] GFR/1.73 sq M predicted among non-blacks MDRD (S/P/Bld) [Vol rate/Area] [place] Comment on above: Average GFR for 50-5 9 years old: 93 mL/min/1.73sq m Chronic Kidney Disease: <60 mL/min/1.73sq m Kidney failure: <15 mL/min/1.73sq m eGFR calculated using average adult body mass. Additional eGFR calculator available at: http://www.[employer]/multiple_crcl_2012.htm Glucose [Mass/Vol] 99 mg/dL 70 - 99 mg/dL [place] Potassium [Moles/Vol] 4.4 mmol/L 3.7 - 5.3 mmol/L [place] Protein [Mass/Vol] 6.7 g/dL 6.4 - 8.3 g/dL [place] Sodium [Moles/Vol] 146 mmol/L High 135 - 144 mmol/L [place] Urea nitrogen [Mass/Vol] 17 mg/dL 6 - 20 mg/dL [place] Lipid Panelon 11-05-2018 Cholesterol [Mass/Vol] 199 mg/dL <200 [place] Comment on above: Cholesterol Guidelines: <200 Desirable 200-240 Borderline >240 Undesirable Cholesterol in HDL [Mass/Vol] 42 mg/dL >40 [place] Comment on above: HDL Guidelines: <40 Undesirable 40-59 Borderline >59 Desirable Cholesterol in LDL [Mass/Vol] 126 mg/dL 0 - 130 mg/dL [place] Comment on above: LDL Guidelines: <100 Desirable 100-129 Near to/above Desirable 130-159 Borderline >159 Undesirable Direct (measured) LDL and calculated LDL are not interchangeable tests. Cholesterol in VLDL [Mass/Vol] NOT REPORTED High 1 - 30 mg/dL [place] Cholesterol.total/Ch olesterol in HDL [Mass ratio] 4.7 {ratio} <5 [place] Triglyceride [Mass/Vol] 157 mg/dL High <150 [place] Comment on above: Triglyceride Guidelines: <150 Desirable 150-199 Borderline 200-499 High >499 Very high Based on AHA Guidelines for fasting triglyceride, December 2011. Otheron 11-05-2018 Interpretation and review of laboratory results Abnormal [place] Vital Signs Date Time Vital Sign Value Performing Clinician Facility 10-06-2024 10:04040 [facility] 10-06-2024 10:04-040 Body mass index (BMI) [Ratio] 36 kg/m2 [employer] DO Work Phone: [facility] 10-06-2024 10:04-040 Body weight 127.3 kg [facility] [employer] Work Phone: [facility] 08-21-2024 09:49-0400 Body height 188 cm Rachel Stacy MD Work Phone: [facility] 08-21-2024 09:49-0400 Body mass index (BMI) [Ratio] 35.95 kg/m2 Rachel Stacy MD Work Phone: [facility] 08-21-2024 09:49-0400 Body weight 127.01 kg Rachel Stacy MD Work Phone: [facility] 08-21-2024 09:49-0400 Diastolic blood pressure 64 mm[Hg] Rachel Stacy MD Work Phone: [facility] 08-21-2024 09:49-0400 Heart rate 68 /min Rachel Stacy MD Work Phone: [facility] 08-21-2024 09:49-0400 Systolic blood pressure 120 mm[Hg] Rachel Stacy MD Work Phone: [facility] 02-21-2024 13:15-0500 Body height 188 cm Rachel Stacy MD Work Phone: [facility] 02-21-2024 13:15-0500 Body mass index (BMI) [Ratio] 37.11 kg/m2 Rachel Stacy MD Work Phone: [facility] 02-21-2024 13:15-0500 Body weight 131.09 kg Rachel Stacy MD Work Phone: [facility] 02-21-2024 13:15-0500 Diastolic blood pressure 62 mm[Hg] Rachel Stacy MD Work Phone: [facility] 02-21-2024 13:15-0500 Heart rate 78 /min Rachel Stacy MD Work Phone: [facility] 02-21-2024 13:15-0500 Systolic blood pressure 130 mm[Hg] Rachel Stacy MD Work Phone: [facility] 02-05-2024 14:07-0500 Body height 188 cm Deborah Jeronimo MD Work Phone: [facility] 02-05-2024 14:07-0500 Body mass index (BMI) [Ratio] 36.85 kg/m2 Deborah Jeronimo MD Work Phone: [facility] 02-05-2024 14:07-0500 Body weight 130.18 kg Deborah Jeronimo MD Work Phone: [facility] 02-05-2024 14:07-0500 Diastolic blood pressure 68 mm[Hg] Deborah Jeronimo MD Work Phone: [facility] 02-05-2024 14:07-0500 Heart rate 70 /min Deborah Jeronimo MD Work Phone: [facility] 02-05-2024 14:07-0500 Systolic blood pressure 126 mm[Hg] Deborah Jeronimo MD Work Phone: [facility] 01-06-2024 15:57-0500 Diastolic blood pressure 92 mm[Hg] Rachel Stacy MD Work Phone: [facility] 01-06-2024 15:57-0500 Systolic blood pressure 166 mm[Hg] Rachel Stacy MD Work Phone: [facility] 01-06-2024 15:15-0500 Body height 188 cm Rachel Stacy MD Work Phone: [facility] 01-06-2024 15:15-0500 Body mass index (BMI) [Ratio] 37.36 kg/m2 Rachel Stacy MD Work Phone: [facility] 01-06-2024 15:15-0500 Body weight 132 kg Rachel Stacy MD Work Phone: [facility] 01-06-2024 15:15-0500 Heart rate 92 /min Rachel Stacy MD Work Phone: [facility] 12-13-2023 11:29-0400 Body height 188 cm Guicho Mulligan MD Work Phone: [facility] 12-13-2023 11:29-0400 Body mass index (BMI) [Ratio] 36.72 kg/m2 Guicho Mulligan MD Work Phone: [facility] 12-13-2023 11:29-0400 Body weight 129.73 kg Guicho Mulligan MD Work Phone: [facility] 12-13-2023 11:29-0400 Diastolic blood pressure 80 mm[Hg] Guicho Mulligan MD Work Phone: [facility] 12-13-2023 11:29-0400 Heart rate 76 /min Guicho Mulligan MD Work Phone: [facility] 12-13-2023 11:29-0400 Systolic blood pressure 136 mm[Hg] Guicho Mulligan MD Work Phone: [facility] 12-06-2023 09:38-0400 Body height 188 cm Jenae Samuels DO Work Phone: [employer] 12-06-2023 09:38-0400 Body mass index (BMI) [Ratio] 36.85 kg/m2 Jenae Louiss DO Work Phone: [facility] 12-06-2023 09:38-0400 Body temperature 98.71 [degF] Jenae Debrapardeeps DO Work Phone: [facility] 12-06-2023 09:38-0400 Body weight 130.18 kg Jenae Debrapardeeps DO Work Phone: [facility] 12-06-2023 09:38-0400 Diastolic blood pressure 70 mm[Hg] Jenae Louiss DO Work Phone: [facility] 12-06-2023 09:38-0400 Heart rate 76 /min Jenae Samuels DO Work Phone: [employer] 12-06-2023 09:38-0400 Respiratory rate 18 /min Jenae Samuels DO Work Phone: [facility] 12-06-2023 09:38-0400 SaO2% (BldA) [Mass fraction] 98 % Jenae Samuels DO Work Phone: [facility] 12-06-2023 09:38-0400 Systolic blood pressure 130 mm[Hg] Jenae Samuels DO Work Phone: [facility] 09-09-2023 12:19-0400 Body height 188 cm Deborah Jeronimo MD Work Phone: [facility] 09-09-2023 12:19-0400 Body mass index (BMI) [Ratio] 35.95 kg/m2 Deborah Jeronimo MD Work Phone: [facility] 09-09-2023 12:19-0400 Body weight 127.01 kg Deborah Jeronimo MD Work Phone: [facility] 09-09-2023 12:19-0400 Diastolic blood pressure 79 mm[Hg] Deborah Jeronimo MD Work Phone: [facility] 09-09-2023 12:19-0400 Heart rate 78 /min Deborah Jeronimo MD Work Phone: [facility] 09-09-2023 12:19-0400 Systolic blood pressure 146 mm[Hg] Deborah Jeronimo MD Work Phone: [facility] 08-28-2023 14:28-0400 Diastolic blood pressure 68 mm[Hg] Leonid Figueredo MD Work Phone: [facility] 08-28-2023 14:28-0400 Systolic blood pressure 138 mm[Hg] Leonid Figueredo MD Work Phone: [facility] 08-28-2023 14:06-0400 Body height 188 cm Leonid Figueredo MD Work Phone: [facility] 08-28-2023 14:06-0400 Body mass index (BMI) [Ratio] 35.44 kg/m2 Leonid Figueredo MD Work Phone: [facility] 08-28-2023 14:06-0400 Body weight 125.19 kg Leonid Figueredo MD Work Phone: [facility] 08-28-2023 14:06-0400 Heart rate 80 /min Leonid Figueredo MD Work Phone: [facility] 08-20-2023 10:08-0400 Body height 188 cm Pmh 1 [facility] 08-20-2023 10:08-0400 Body mass index (BMI) [Ratio] 35.95 kg/m2 Pmh 1 [facility] 08-20-2023 10:08-0400 Body weight 127.01 kg Pmh 1 [facility] 08-05-2023 14:46-0400 Body height 188 cm Magda Cruz BREAKFAST SUPERVISOR[employer] Work Phone: [facility] 08-05-2023 14:46-0400 Body mass index (BMI) [Ratio] 36.08 kg/m2 Magda Cruz BREAKFAST SUPERVISOR-CITY [employer]OR Work Phone: [facility] 08-05-2023 14:46-0400 Body temperature 96.91 [degF] Magda Cruz BREAKFAST SUPERVISOR-CITY EDITOR Work Phone: [facility] 08-05-2023 14:46-0400 Body weight 127.46 kg Magda Cruz BREAKFAST SUPERVISOR-CITY EDITOR Work Phone: [facility] 08-05-2023 14:46-0400 Diastolic blood pressure 70 mm[Hg] Magda Cruz BREAKFAST SUPERVISOR-CITY EDITOR Work Phone: [facility] 08-05-2023 14:46-0400 Heart rate 69 /min Magda Cruz BREAKFAST SUPERVISOR-CITY EDITOR Work Phone: [facility] 08-05-2023 14:46-0400 Respiratory rate 16 /min Magda Cruz BREAKFAST SUPERVISOR-CITY EDITOR Work Phone: [facility] 08-05-2023 14:46-0400 SaO2% (BldA) [Mass fraction] 95 % Magda Cruz BREAKFAST SUPERVISOR-CITY EDITOR Work Phone: [facility] 08-05-2023 14:46-0400 Systolic blood pressure 128 mm[Hg] Magda Cruz BREAKFAST SUPERVISOR-CITY EDITOR Work Phone: [facility] 07-04-2023 13:08-0400 Body height 180.3 cm Deborah Jeronimo MD Work Phone: [facility] 07-04-2023 13:08-0400 Body mass index (BMI) [Ratio] 38.86 kg/m2 Deborah Jeronimo MD Work Phone: [facility] 07-04-2023 13:08-0400 Body weight 126.37 kg Deborah Jeronimo MD Work Phone: [facility] 07-04-2023 13:08-0400 Diastolic blood pressure 80 mm[Hg] Deborah Jeronimo MD Work Phone: [facility] 07-04-2023 13:08-0400 Heart rate 73 /min Deborah Jeronimo MD Work Phone: [facility] 07-04-2023 13:08-0400 Systolic blood pressure 158 mm[Hg] Deborah Jeronimo MD Work Phone: [facility] 05-01-2023 10:28-0500 Body height 180.3 cm Hunter Robins BREAKFAST SUPERVISOR-[employer]ALL Work Phone: [facility] 05-01-2023 10:28-0500 Body mass index (BMI) [Ratio] 38.49 kg/m2 Hunter Robins BREAKFAST SUPERVISOR[employer] Work Phone: [facility] 05-01-2023 10:28-0500 Body temperature 97.9 [degF] Hunter Robins BREAKFAST SUPERVISOR[employer] Work Phone: [facility] 05-01-2023 10:28-0500 Body weight 125.19 kg Hunter Robins APRN-MOLDER INFLATED BALL [facility]: [facility] 05-01-2023 10:28-0500 Diastolic blood pressure 72 mm[Hg] Hunter Robins APRN-M[employer]DER IN[employer]ATED BALL Work Phone: [facility] 05-01-2023 10:28-0500 Heart rate 68 /min Hunter Robins APRN-M[employer]DER [employer]ATED BALL Work Phone: [facility] [employer] 05-01-2023 10:28-0500 SaO2% (BldA) [Mass fraction] 95 % Hunter Robins APRN-M[employer]DER INFLATED BALL Work Phone: [facility] 05-01-2023 10:28-0500 Systolic blood pressure 138 mm[Hg] Hunter Robins APRN-M[employer]DER INFLATED BALL Work Phone: [facility] 11-26-2022 15:24-0400 Body height 187.96 cm [address] Work Phone: [facility] [employer] 250 DO Work Phone: 11-26-2022 15:24-0400 Body mass index (BMI) [Ratio] 35.31 kg/m2 Colten Andrade [address] Work Phone: [facility] [employer] 250 DO Work Phone: 11-26-2022 15:24-0400 Body surface area Derived from formula 2.49 m2 Colten Andrade [employer] Work Phone: [facility] [employer] 250 DO Work Phone: 11-26-2022 15:24-0400 Body weight 124.74 kg Colten Andrade R[employer] Work Phone: [facility] [employer] 250 DO Work Phone: 11-26-2022 15:24-0400 Diastolic blood pressure 72 mm[Hg] Colten Andrade Furlong Work Phone: [facility] [employer] 250 DO Work Phone: 11-26-2022 15:24-0400 Heart rate 70 /min Colten G Furlong Work Phone: [facility] 250 DO Work Phone: 11-26-2022 15:24-0400 Systolic blood pressure 138 mm[Hg] Colten G Furlong Work Phone: [facility] 250 DO Work Phone: 10-19-2021 14:25-0400 Body height 187.96 cm Colten G Furlong Work Phone: [facility] 250 DO Work Phone: 10-19-2021 14:25-0400 Body mass index (BMI) [Ratio] 33.64 kg/m2 Colten G Furlong Work Phone: [facility] 250 DO Work Phone: 10-19-2021 14:25-0400 Body surface area Derived from formula 2.44 m2 Colten G Furlong Work Phone: [facility] 250 DO Work Phone: 10-19-2021 14:25-0400 Body weight 118.84 kg Colten G Furlong Work Phone: [facility] 250 DO Work Phone: 10-19-2021 14:25-0400 Diastolic blood pressure 68 mm[Hg] Colten G Furlong Work Phone: [facility] 250 DO Work Phone: 10-19-2021 14:25-0400 Heart rate 74 /min Colten G Furlong Work Phone: [facility] 250 DO Work Phone: 10-19-2021 14:25-0400 Systolic blood pressure 130 mm[Hg] Colten Amoslong Work Phone: [facility] [employer] 250 DO Work Phone: 06-06-2021 10:10-0400 Body height 188 cm Megan Interiano MD Work Phone: [facility] 06-06-2021 10:10-0400 Body weight 116.8 kg Megan Interiano MD Work Phone: [facility] 06-06-2021 10:10-0400 Diastolic blood pressure 71 mm[Hg] Megan Interiano MD Work Phone: [facility] 06-06-2021 10:10-0400 Heart rate 62 /min Megan Interiano MD Work Phone: [facility] 06-06-2021 10:10-0400 Respiratory rate 16 /min Megan Interiano MD Work Phone: [facility] 06-06-2021 10:10-0400 SaO2% (BldA) [Mass fraction] 98 % Megan Interiano MD Work Phone: [facility] 06-06-2021 10:10-0400 Systolic blood pressure 148 mm[Hg] Megan Interiano MD Work Phone: [facility] 05-26-2021 09:27-0400 Body height 187.96 cm Colten Amoslong [facility] 600 DO Work Phone: 05-26-2021 09:27-0400 Body mass index (BMI) [Ratio] 33.41 kg/m2 Colten Amoslong [facility] 600 DO Work Phone: 05-26-2021 09:27-0400 Body surface area Derived from formula 2.43 m2 Colten Amoslong Work Phone: [facility] 600 DO Work Phone: 05-26-2021 09:27-0400 Body weight 118.03 kg Colten G Furlong Work Phone: [facility] [employer] 600 DO Work Phone: 05-26-2021 09:27-0400 Diastolic blood pressure 66 mm[Hg] Colten G Furlong Work Phone: [facility] 600 DO Work Phone: 05-26-2021 09:27-0400 Heart rate 62 /min Colten G Furlong Work Phone: [facility] 600 DO Work Phone: 05-26-2021 09:27-0400 Systolic blood pressure 122 mm[Hg] Colten G Furlong Work Phone[facility] 600 DO Work Phone: 12-27-2020 13:15-0400 Body height 187.96 cm Colten G Furlong Work Phone: [facility] 127 DO Work Phone: 12-27-2020 13:15-0400 Body mass index (BMI) [Ratio] 33.64 kg/m2 Colten G Furlong Work Phone: [facility] 127 DO Work Phone: 12-27-2020 13:15-0400 Body surface area Derived from formula 2.44 m2 Colten G Furlong Work Phone: [facility] 127 DO Work Phone: 12-27-2020 13:15-0400 Body weight 118.84 kg Colten G Furlong Work Phone: [facility] 127 DO Work Phone: 12-27-2020 13:15-0400 Diastolic blood pressure 74 mm[Hg] Colten G Furlong Work Phone: [facility] 127 DO Work Phone: 12-27-2020 13:15-0400 Heart rate 74 /min Colten G Furlong Work Phone: [facility] 127 DO Work Phone: 12-27-2020 13:15-0400 Systolic blood pressure 131 mm[Hg] Colten G Furlong Work Phone: [facility] 127 DO Work Phone: 12-23-2020 09:15-0400 0 1 Colten G Furlong Work Phone: [facility] [address] [place] Work Phone: Comment on above: [id number] 11-10-2019 13:25-0400 BP Diastolic 78 mm[Hg] [facility] , [place] 11-10-2019 13:25-0400 BP Systolic 140 mm[Hg] [facility] , [place] 11-10-2019 13:25-0400 Pulse (Heart Rate) 78 /min [facility] [place] 11-10-2019 13:25-0400 Pulse Oximetry 97 % [facility] , [place] 11-10-2019 13:25-0400 Respiratory Rate 16 /min [facility], [place] 11-10-2019 12:43-0400 Body Temperature 97.2 [degF] Liu [facility], [place] 11-10-2019 10:06-0400 BMI (Body Mass Index) 35.31 kg/m2 Liu [facility], [place] 11-10-2019 10:06-0400 Body weight 124.74 kg [facility] [place] 11-10-2019 10:06-0400 Height 188 cm [facility] , [place] 11-02-2019 11:08-0400 BMI (Body Mass Index) 35.31 kg/m2 [facility] 2 [facility], [place] 11-02-2019 11:08-0400 Body Temperature 98.01 [degF] [facility] 2 [facility] , [place] 11-02-2019 11:08-0400 Body weight 124.[address] [facility] 2 [facility] , [place] 11-02-2019 11:08-0400 BP Diastolic 94 mm[Hg] [facility] 2 [facility] , [place] 11-02-2019 11:08-0400 BP Systolic 147 mm[Hg] [facility] 2 [facility] , [place] 11-02-2019 11:08-0400 Height [address] [facility] 2 [facility] , [place] 11-02-2019 11:08-0400 Pulse (Heart Rate) 83 /min [facility] 2 [facility], [place] 11-02-2019 11:08-0400 Pulse Oximetry 99 % [address] , [place] 11-02-2019 11:08-0400 Respiratory Rate 18 /min [address] Encounters Encounter Date Encounter Type Care Provider Facility Start: 10-14-2024 End: 10-14-2024 Patient encounter procedure Kamila Kingstondavid BREAKFAST SUPERVISOR [facility] Work Phone: Start: 10-14-2024 End: 10-14-2024 ambulatory Colten Furlong DO Work Phone: [facility] Work Phone: Start: 10-06-2024 End: 10-06-2024 ambulatory Colten Furlong DO Work Phone: [facility] Work Phone: Start: 10-06-2024 End: 10-06-2024 Patient encounter procedure Kamila Dustin [facility] Work Phone: Start: 09-07-2024 End: 09-07-2024 Refill Colten G Furlong DO Work Phone: [facility] Comment on above: Migraine, unspecifie d, not intractable, without status migrainosus Start: 08-21-2024 End: 08-21-2024 Office outpatient visit 25 minutes Rachel Stacy MD Work Phone: [facility] Comment on above: Atherosclerosis of n ative coronary artery of [place] heart without angina pectoris; Medication course changed; Primary hypertension; Mixed hyperlipidemia; Palpitations; Current every day smoker; Sleep apnea with use of continuous positive airway pressure (CPAP); BMI 35.0-35.9,adult Start: 08-17-2024 ambulatory [facility] Start: 05-18-2024 End: 05-18-2024 Orders Only Colten Amoszafarhenry DO Work Phone: [facility] Comment on above: Migraine, unspecifie d, not intractable, without status migrainosus Start: 04-23-2024 End: 04-23-2024 Refaustin Candelaria [facility] Start: 03-18-2024 End: 03-19-2024 Orders Only Chery Gonzalez LPN [facility] Comment on above: Benign prostatic hyp erplasia with urinary obstruction (Primary Dx) Start: 03-10-2024 ambulatory [facility] Start: 03-05-2024 [facility] Start: 03-02-2024 End: 03-02-2024 ambulatory Antonio Bird MD Facility:[facility] Start: 02-21-2024 End: 02-21-2024 Office outpatient visit 25 minutes Rachel Stacy MD Work Phone: [facility] Comment on above: Shortness of breath; Encounter to discuss test results; History of PTCA; Mixed hyperlipidemia; Primary hypertension; Current every day smoker; BMI 37.0-37.9, adult; Medication course changed; Hypertension, unspecified type; Atherosclerosis of [place] coronary artery of [place] heart without angina pectoris; Other hyperlipidemia; Sleep apnea with use of continuous positive airway pressure (CPAP); History of ST elevation myocardial infarction (STEMI); BMI 35.0-35.9,adult Start: 02-07-2024 ambulatory ZAINAB J [facility] Start: 02-05-2024 End: 02-05-2024 Office outpatient visit 15 minutes Deborah Jeronimo MD Work Phone: [facility] Comment on above: Benign prostatic hyp erplasia with urinary obstruction (Primary Dx) Start: 01-22-2024 End: 01-22-2024 Evaluation and management of inpatient ZAINAB J [facility] Start: 01-21-2024 End: 01-21-2024 ambulatory h Pat Phone Call Provider 1 [facility] - Pre Admit Start: 01-21-2024 End: 01-21-2024 Refill Colten Evon Fidel CARR Work Phone: [facility] Comment on above: Migraine, unspecifie d, not intractable, without status migrainosus Start: 01-21-2024 End: 01-21-2024 ambulatory COLTEN [facility] Start: 01-15-2024 ambulatory MORIAH William [facility] Start: 01-09-2024 End: 01-09-2024 ambulatory Arabella Morrissey Facility:[facility] Start: 01-07-2024 End: 01-07-2024 Telephone encounter Andre Hand MD Work Phone: [facility] Start: 01-06-2024 End: 01-06-2024 Office outpatient visit 25 minutes Rachel Stacy MD Work Phone: [facility] Comment on above: Coronary artery dise ase involving kas[place] coronary artery of [place] heart with unstable angina pectoris (Primary Dx); Encounter to discuss test results; Shortness of breath; History of PTCA; History of ST elevation myocardial infarction (STEMI); Primary hypertension; Other hyperlipidemia; Palpitations; Acute cough; Sleep apnea with use of continuous positive airway pressure (CPAP); BMI 37.0-37.9, adult; Current every day smoker; Fatigue, unspecified type; Medication course changed Start: 12-30-2023 End: 12-30-2023 [facility] Start: 12-13-2023 End: 12-13-2023 Office outpatient new 60 minutes Guicho Mulligan MD Work Phone: [facility] Office Building Comment on above: Hypertension, unspec ified type; Atherosclerosis of kas[place] coronary artery of kas[place] heart without angina pectoris; Current every day smoker; Other hyperlipidemia; Palpitations; Unstable angina pectoris (Multi); Sleep apnea with use of continuous positive airway pressure (CPAP); History of ST elevation myocardial infarction (STEMI); History of PTCA; Shortness of breath; Acute cough; BMI 35.0-35.9,adult Start: 12-06-2023 End: 12-06-2023 ambulatory [place] [facility] Start: 12-06-2023 End: 12-06-2023 Office outpatient visit 15 minutes Jenae Samuels DO Work Phone: [facility] Comment on above: Acute bronchitis, un specified organism (Primary Dx); Upper respiratory symptom Start: 10-21-2023 End: 10-21-2023 Refill Colten Gordon DO Work Phone: [facility] Comment on above: Migraine, unspecifie d, not intractable, without status migrainosus Start: 09-24-2023 End: 10-01-2023 Telephone encounter Colten Gordon DO Work Phone: [facility] Start: 09-23-2023 End: 09-24-2023 Refill Hunter Robins BREAKFAST SUPERVISOR-M[employer]DER [employer]ALL Work Phone: [facility] Start: 09-09-2023 End: 09-09-2023 Office outpatient visit 25 minutes Deborah Jeronimo MD Work Phone: [facility] Comment on above: Benign prostatic hyp erplasia with urinary obstruction (Primary Dx) Start: 09-09-2023 End: 09-09-2023 ambulatory DEBORAH JERONIMO [facility] Start: 08-28-2023 End: 08-28-2023 Office outpatient visit 25 minutes Leonid Figueredo MD Work Phone: [facility] Comment on above: Atherosclerosis of n ative coronary artery of kas[place] heart without angina pectoris (Primary Dx); History of PTCA; Mixed hyperlipidemia; Primary hypertension; Current every day smoker; BMI 35.0-35.9,adult Start: 08-21-2023 End: 08-21-2023 Telephone encounter Deborah Jeronimo MD Work Phone: [facility] Start: 08-21-2023 End: 08-21-2023 Evaluation and management of inpatient DEBORAH JERONIMO [facility] Start: 08-20-2023 End: 08-20-2023 ambulatory [facility] Pat Phone Call Provider 1 [facility] - Pre Admit Start: 08-13-2023 End: 08-13-2023 Telephone encounter Shlomo Huber CMA [facility] Start: 08-12-2023 End: 08-12-2023 ambulatory Christina Palm MD Facility:[facility] Start: 08-07-2023 End: 08-07-2023 Refill Colten Gordon DO Work Phone: [facility] Start: 08-06-2023 End: 08-06-2023 Orders Only Kortney Kuns BREAKFAST SUPERVISOR-CITY EDITOR Work Phone: [facility] Comment on above: Acute non-recurrent frontal sinusitis (Primary Dx) Start: 08-05-2023 End: 08-05-2023 Office outpatient visit 15 minutes Kortney Kuns BREAKFAST SUPERVISOR-CITY EDITOR Work Phone: [facility] Comment on above: Acute non-recurrent frontal sinusitis (Primary Dx); Pigmented skin lesion of uncertain behavior of neck Start: 08-05-2023 End: 08-05-2023 ambulatory MAGDA CRUZ [facility] Start: 07-26-2023 End: 07-26-2023 ambulatory COLTEN GORDON [facility] Comment on above: Benign prostatic hyp erplasia with urinary obstruction Start: 07-26-2023 End: 07-26-2023 NO CHARGE LEVEL OF SERVICE [facility] Start: 07-04-2023 End: 07-04-2023 ambulatory DEBORAH JERONIMO [facility] Start: 07-04-2023 End: 07-04-2023 Telephone encounter Deborah Jeronimo MD Work Phone: [facility] Start: 07-04-2023 End: 07-04-2023 Office consultation new/estab patient 60 min Deborah Jeronimo MD Work Phone: [facility] Comment on above: Benign prostatic hyp erplasia with urinary obstruction (Primary Dx); Enlarged prostate Start: 06-26-2023 End: 06-26-2023 Refill Colten Gordon DO Work Phone: [facility] Comment on above: Migraine, unspecifie d, not intractable, without status migrainosus Start: 06-17-2023 End: 06-17-2023 ambulatory Christina Palm MD Facility:[facility] Start: 05-01-2023 End: 05-02-2023 ambulatory [facility] Start: 05-01-2023 End: 05-01-2023 Office outpatient visit 15 minutes Hunter Robins BREAKFAST SUPERVISOR[employer] Work Phone: [facility] Comment on above: Essential hypertensi on (Primary Dx); Chronic hip pain, left; Mixed hyperlipidemia; Enlarged prostate; Skin lesion of left lower limb Start: 05-01-2023 End: 05-01-2023 ambulatory [facility] Start: 04-01-2023 Refill Hunter Robins BREAKFAST SUPERVISOR[employer]ALL Work Phone: [facility] Comment on above: Migraine, unspecifie d, not intractable, without status migrainosus Start: 11-26-2022 Patient encounter procedure Colten Gordon Work Phone: [facility] 250 DO Work Phone: Start: 07-31-2022 End: 08-01-2022 ambulatory DURANELEANGELINA NUNEZTERESAHenrik . Facility:[facility] Start: 07-31-2022 End: 08-01-2022 ambulatory AD GOTTLIEB . Facility:[facility] Start: 06-14-2022 End: 06-15-2022 ambulatory AGUSTO STARKS . Facility:[facility] Start: 05-08-2022 ambulatory [facility] Start: 05-03-2022 End: 05-03-2022 ambulatory HUNTER ROBINS Facility:[facility] Start: 03-15-2022 End: 03-16-[address] COMPA AWAD . Facility:[facility] Start: 02-15-2022 Encounter for preprocedural laboratory examination DR COMPA AWAD . [facility] Start: 02-13-2022 End: 02-13-[address] COMPA AWAD . Facility:[facility] Start: 02-09-2022 End: 02-10-[address] COMPA AWAD . Facility:[facility] Start: 02-09-2022 End: 02-10-2022 Encounter for preprocedural laboratory examination DR COMPA AWAD . Facility:[facility] Start: 01-16-2022 End: 01-17-[address] COMPA AWAD . Facility:[facility] Start: 01-09-2022 End: 01-09-[address] COMPA AWAD . Facility:[facility] Start: 01-08-2022 Rx Renewal Colten figueroa Work Phone: [facility] 250 DO Work Phone: Start: 01-08-2022 Rx Renewal Colten Pérez ng Work Phone: [facility] 250 DO Work Phone: Start: 12-28-2021 End: 12-29-2021 ambulatory HUNTER ROBINS Facility:[facility] Start: 12-28-2021 End: 12-29-[address] COMPA AWAD . Facility:[facility] Start: 12-12-2021 End: 12-12-[address] COMPA AWAD . Facility:[facility] Start: 11-29-2021 Rx Renewal Colten figueroa Work Phone: [facility] 250 DO Work Phone: Start: 10-26-2021 End: 10-27-[address] COMPA AWAD . Facility:[facility] Start: 10-19-2021 Office outpatient vi sit 25 minutes Colten Pérezng Work Phone: [facility] 250 DO Work Phone: Start: 08-23-2021 Message Colten figueroa Work Phone: [facility] 250 DO Work Phone: Start: 07-04-2021 Telephone encounter Megan garcia MD Work Phone: [facility] Comment on above: Schedule Surgery Start: 06-06-2021 End: 06-06-2021 Patient encounter procedure Megan Interiano MD Work Phone: [facility] Comment on above: Cervical spondylosis with myelopathy (Primary Dx); Loss of balance; Spinal stenosis of cervical region Start: 05-26-2021 Office outpatient vi sit 25 minutes Colten Gordon [facility] Work Phone: Start: 01-03-2021 Chart Update Colten [facility]rez ng [facility] Work Phone: Start: 12-27-2020 FUV, Provider: Kalie Lebron, Status: Pen, Time: 1:00 PM Colten Pérezng Work Phone: [facility] [place] Work Phone: Start: 12-27-2020 Office outpatient vi sit 25 minutes Colten Pérezng Work Phone: [facility] 127 DO Work Phone: Start: 12-23-2020 Patient encounter procedure Colten Gordon Work Phone: [facility] [place] [address] [place] Work Phone: Start: 05-04-2020 End: 05-05-2020 Patient encounter procedure MARGARITA Gallardo [facility] Start: 05-04-2020 End: 05-04-2020 Subsequent hospital visit by physician Kash BERTRAND [facility] Start: 05-03-2020 End: 05-04-2020 Patient encounter procedure ROSD Paulina [facility] Start: 05-03-2020 End: 05-03-2020 Subsequent hospital visit by physician Kash GARCÍA [place] [facility] Comment on above: Chest discomfort; Essential hypertension Start: 05-03-2020 End: 05-06-2020 Patient encounter procedure FLACO CARTER [facility] Start: 05-03-2020 End: 05-05-2020 Subsequent hospital visit by physician Alexa Shukla Xr Rm 1 [facility] Comment on above: Chest discomfort Start: 11-10-2019 End: 11-10-2019 Patient encounter procedure LIU Thomas [facility] Start: 11-10-2019 End: 11-10-2019 Subsequent hospital visit by physician Liu Jackson Work Phone: [facility] [place] Comment on above: Acute medial meniscu s tear of left knee, initial encounter (Primary Dx) Start: 11-06-2019 End: 11-11-2019 Patient encounter procedure ANAYA HORTON [facility] Start: 11-06-2019 End: 11-10-2019 Subsequent hospital visit by physician Alexa Amaya19 Pat Screening Schedule [facility] Pre-Admit Testing Start: 11-02-2019 End: 11-06-2019 Patient encounter procedure MARGARITA [facility] Start: 11-02-2019 End: 11-06-2019 Subsequent hospital visit by physician Mary Pat Rm 2 [facility] Pre-Admit Testing Start: 10-27-2019 End: 10-30-2019 Patient encounter procedure MARGARITA Gallardo [facility] Start: 10-27-2019 End: 10-29-2019 Subsequent hospital visit by physician Alexa Mri Rm 119 [facility] MRI Comment on above: Effusion of left kne e; Injury of left knee, subsequent encounter Start: 09-29-2019 End: 10-02-2019 Patient encounter procedure MARGARITA Gallardo [facility] Start: 09-29-2019 End: 10-01-2019 Subsequent hospital visit by physician Alexa Xr Room 4 [facility] Comment on above: Acute pain of left k nee Start: 09-29-2019 End: 09-29-2019 Patient encounter procedure KASH GRIER [facility] Start: 09-28-2019 End: 09-28-2019 Subsequent hospital visit by physician Margarita GARC[place]A [place] [facility] Comment on above: Gout of foot, unspec ified cause, unspecified chronicity, unspecified laterality Start: 12-09-2018 End: 12-09-2018 Subsequent hospital visit by physician Margarita GARC[place]A [place] [facility] Comment on above: Gouty arthritis of r ight foot Start: 11-05-2018 End: 11-05-2018 Subsequent hospital visit by physician Margarita GARCÍA [facility] Comment on above: Essential hypertensi on; Prostate cancer screening Procedures Date Procedure Procedure Detail Performing Clinician Start: 10-14-2024 X-ray of lumbar spin e, six views including bending views Colten Fidel DO Work Phone: Start: 12-13-2023 Ecg routine ecg w/le ast 12 lds w/i&r Guicho Mulligan MD Work Phone: Start: 12-06-2023 POCT INFLUENZA A/INF LUENZA B/SARS-COV-2 VERITOR Jenae Samuels DO Work Phone: Start: 09-09-2023 Follow-up visit Follow-up DEBORAH JERONIMO Start: 08-05-2023 Adult depression scr eening assessment Magda Cruz BREAKFAST SUPERVISOR-CITY EDITOR Work Phone: Start: 07-04-2023 Urnls dip stick/tabl et rgnt auto w/o microscopy Deborah Jeronimo MD Work Phone: Start: 05-01-2023 Adult depression scr eening assessment Hunter Robins BREAKFAST SUPERVISOR-MOLDER [employer]FLATED BALL Work Phone: Start: 04-02-2023 History of percutane ous transluminal coronary angioplasty History of PTCA Leonid Figueredo MD Work Phone: Start: 12-14-2022 Adult depression scr eening assessment Hunter Robins BREAKFAST SUPERVISOR-M[employer]FL[employer]ALL Work Phone: Start: 06-04-2021 Adult depression scr eening assessment Megan Interiano MD Work Phone: Start: 12-23-2020 Echocardiography Colten Gordon Work Phone: Start: 05-04-2020 Assay of troponin quantitative Brendavaprasad Paulina Gurjit Work Phone: Start: 05-03-2020 Radiologic exam ches t 2 views Shivaprasad K Gurjit Work Phone: Start: 05-03-2020 Assay of thyroid sti mulating hormone tsh Shivaprasad K Gurjit Work Phone: Start: 05-03-2020 Blood count complete automated Shivaprasad K Gurjit Work Phone: Start: 05-03-2020 Comprehensive metabo lic panel Shivaprasad K Gurjit Work Phone: Start: 05-03-2020 Lipid panel Shivaprasa d Paulina Cagle Work Phone: Start: 11-10-2019 DISCHARGE PATIENT SHIVA EDGAR CAGLE Start: 11-10-2019 BEDREST SHIVAPRASA D GURJIT Start: 11-10-2019 Continuous pulse oximetry BRENDAVAEDGAR CAGLE Start: 11-10-2019 ENCOURAGE DEEP BREAT UYEN AND [...] Phone: Start: 11-05-2018 [object Object] Shivapr kay Cagle Comment on above: The Cole ECLIA as say is used. Results obtained with different assay methods cannot be used interchangeably. Start: 11-05-2018 Blood count complete automated Brendadonato Gallardo Gurjit Work Phone: Start: 11-05-2018 Comprehensive metabo lic panel Margarita Gallardo Gurjit Work Phone: Start: 11-05-2018 Lipid panel Harlancarmel d Paulina Cagle Work Phone: Start: 11-05-2018 PSA screening [employer] ad Paulina Gurjit Work Phone: Decompression of med trudy nerve Colten Gordon Work Phone: History of percutane ous transluminal coronary angioplasty History of PTCA Colten Amoszafarhenry Work Phone: History of percutane ous transluminal coronary angioplasty History of PTCA Guicho Mulligan MD Work Phone: History of percutane ous transluminal coronary angioplasty History of PTCA Rachel Stacy MD Work Phone: History of percutane ous transluminal coronary angioplasty History of PTCA Leonid Figueredo MD Work Phone: History of percutane ous transluminal coronary angioplasty History of PTCA Rachel Stacy MD Work Phone: Leg repair Colten Andrade Lay evon Work Phone: Comment on above: tibial plateau screw s; Nasal sinus procedure Colten Amoszafarhenry Work Phone: Operative procedure on ankle Colten Andrade Furlong Work Phone: Operative procedure on knee Colten Andrade Furlong Work Phone: Procedure on back Colten Andrade F urleighann Work Phone: Plan of Treatment Date Care Activity Detail Author Start: 06-21-2025 Screening for malignant neoplasm of colon [facility] Start: 05-03-2025 Lipid panel Lipid screen [employer] Phone: Start: 04-28-2025 Hepatitis C screening Hepatitis C screen [employer] Phone: Comment on above: Postponed from 1965 (Patient Refus ed) Start: 04-28-2025 HIV screening HIV screen [employer] Phone: Comment on above: Postponed from 1980 (Patient Refus ed) Start: 02-22-2025 End: 02-22-2025 Patient encounter procedure 02/22/2025 11:00 AM EST Office Visit [facility] [address] [facility] [address] [place] [address] Rachel Stacy MD [address] [facility] [address] [place], [place] [id number] [facility] Start: 02-04-2025 Adult BMI Screening Adult BMI Screening [facility] Start: 02-04-2025 Tobacco Screening [facility] Start: 01-21-2025 Tobacco Screening [facility] Start: 12-05-2024 Adult BMI Screening [facility] Start: 12-05-2024 Tobacco Screening [facility] Start: 11-18-2024 End: 11-18-2024 Patient encounter procedure 11/18/2024 2:15 PM EDT Office Visit [facility] [address] [place] [phone] Deborah Jeronimo MD [address] [place] [address] [facility] Start: 11-02-2024 Influenza vaccination [facility] Start: 10-06-2024 Patient referral [facility] Work Phone: Start: 09-08-2024 Adult BMI Screening Adult BMI Screening [facility] Start: 09-08-2024 Tobacco Screening Tobacco Screening [facility] Start: 08-28-2024 End: 08-21-2025 Basic metabolic 2000 panel - Serum or Plasma Basic Metabolic Panel Lab Routine Medication course changed Primary hypertension Expected: 08/28/2024, Expires: 08/21/2025 [facility] Work Phone: Comment on above: Expected: 08/28/2024, Expires: Start: 08-21-2024 End: 08-21-2025 Comprehensive metabolic 2000 panel - Serum or Plasma [facility] Work Phone: Comment on above: Expected: 08/21/2024 (Approximate), Expi res: 02/20/2025 Expected: 08/21/2024 (Approximate), Expires: 08/21/2025 Start: 08-21-2024 End: 08-21-2025 Lipid 1996 panel - Serum or Plasma [facility] Work Phone: Comment on above: Expected: 08/21/2024 (Approximate), Expi res: 02/20/2025 Expected: 08/21/2024 (Approximate), Expires: 08/21/2025 Start: 08-21-2024 End: 08-21-2024 Patient encounter procedure 08/21/2024 9:45 AM EDT Office Visit [facility] [address] [facility] [address] [place] [address] Rachel Stacy MD [address] [facility] [address] [place] [address] [facility] Start: 08-20-2024 Tobacco Screening Tobacco Screening [facility] Start: 08-19-2024 Adult BMI Screening Adult BMI Screening [facility] Start: 08-04-2024 Adult BMI Screening Adult BMI Screening [facility] Start: 08-04-2024 Depression Screening Depression Screening [facility] Start: 08-04-2024 Tobacco Screening Tobacco Screening [facility] Start: 07-03-2024 Adult BMI Screening Adult BMI Screening [facility] Start: 07-03-2024 Tobacco Screening Tobacco Screening [facility] Start: 05-01-2024 Adult BMI Screening Adult BMI Screening [facility] Start: 05-01-2024 Depression Screening Depression Screening [facility] Start: 05-01-2024 Tobacco Screening Tobacco Screening [facility] Start: 03-23-2024 End: 02-20-2025 Basic metabolic 2000 panel - Serum or Plasma Basic Metabolic Panel Lab Routine Primary hypertension Expected: 03/23/2024 (Approximate), Expires: 02/20/2025 [facility] Work Phone: Comment on above: Expected: 03/23/2024 (Approximate), Expi res: 02/20/2025 Start: 03-12-2024 End: 03-12-2024 Patient encounter procedure 03/12/2024 2:15 PM EST Office Visit [address] [phone] Rachel Stacy MD [address] [place] [address] [facility] Start: 02-21-2024 End: 02-21-2024 Patient encounter procedure 02/21/2024 1:15 PM EST Office Visit [address] [phone] Rachel Stacy MD [address] [place] [address] [facility] Start: 02-05-2024 End: 02-05-2024 Patient encounter procedure 02/05/2024 2:15 PM EST Office Visit [facility] [address] [place] [phone] Deborah Jeronimo MD [facility] [place] [address] [facility] Start: 01-22-2024 End: 01-22-2024 Admission to same day surgery center 01/22/2024 11:30 AM EST - 01/22/2024 12:00 PM EST Surgery [facility] [address] [place] [address] Zainab Marshall, DO [address] [place] [address] INJECTION HIP & CPT 48392 [ (CPT )] [facility] Comment on above: INJECTION HIP & CPT 81749 [ (CPT )] Start: 01-22-2024 End: 01-22-2024 Arthrocentesis aspir&/inj major jt/bursa w/o us INJECTION HIP left hip acetabular labrum tear, osteoarthritis 01/22/2024 11:30 AM EST [facility] Start: 01-22-2024 Subsequent hospital visit by physician 01/22/2024 11:30 AM EST Hospital Encounter [facility] [address] [place] [address] Zainab Marshall, DO [address] [place] [address] [facility] Start: 01-10-2024 End: 01-10-2024 Patient encounter procedure 01/10/2024 2:15 PM EST Office Visit [facility] [address] [facility] [address] [place] [address] Rachel Stacy MD [address] [facility] 130 [place] [address] [facility] Start: 01-06-2024 End: 01-05-2025 Natriuretic peptide B [Mass/volume] in Blood B-Type Natriuretic Peptide Lab Routine Shortness of breath Expected: 01/06/2024 (Approximate), Expires: 01/05/2025 [facility] Work Phone: Comment on above: Expected: 01/06/2024 (Approximate), Expi res: 01/05/2025 Start: 12-23-2023 Tobacco Counseling Tobacco Counseling [facility] Comment on above: Postponed from 1965 (Not Indicated ) Start: 12-18-2023 Adult BMI Screening Adult BMI Screening [facility] Start: 12-18-2023 Tobacco Screening Tobacco Screening [facility] Start: 12-15-2023 Depression Screening Depression Screening [facility] Start: 12-13-2023 End: 12-12-2024 Basic metabolic 2000 panel - Serum or Plasma Basic Metabolic Panel Lab Routine Hypertension, unspecified type Atherosclerosis of [place] coronary artery of [place] heart without angina pectoris Current every day smoker Other hyperlipidemia Palpitations Unstable angina pectoris (Multi) Sleep apnea with use of continuous positive airway pressure (CPAP) History of ST elevation myocardial infarction (STEMI) History of PTCA Shortness of breath Acute cough BMI 35.0-35.9,adult Expected: 12/13/2023, Expires: 12/12/2024 [facility] Work Phone: Comment on above: Expected: 12/13/2023, Expires: Start: 12-13-2023 End: 12-12-2024 CBC panel - Blood by Automated count CBC Lab Routine Hypertension, unspecified type Atherosclerosis of [place] coronary artery of [place] heart without angina pectoris Current every day smoker Other hyperlipidemia Palpitations Unstable angina pectoris (Multi) Sleep apnea with use of continuous positive airway pressure (CPAP) History of ST elevation myocardial infarction (STEMI) History of PTCA Shortness of breath Acute cough BMI 35.0-35.9,adult Expected: 12/13/2023, Expires: 12/12/2024 [facility] Work Phone: Comment on above: Expected: 12/13/2023, Expires: Start: 12-13-2023 End: 12-12-2024 Hepatic function 2000 panel - Serum or Plasma Hepatic Function Panel Lab Routine Hypertension, unspecified type Atherosclerosis of [place] coronary artery of [place] heart without angina pectoris Current every day smoker Other hyperlipidemia Palpitations Unstable angina pectoris (Multi) Sleep apnea with use of continuous positive airway pressure (CPAP) History of ST elevation myocardial infarction (STEMI) History of PTCA Shortness of breath Acute cough BMI 35.0-35.9,adult Expected: 12/13/2023, Expires: 12/12/2024 [facility] Work Phone: Comment on above: Expected: 12/13/2023, Expires: Start: 12-13-2023 End: 12-12-2025 Holter monitor study Holter Or [employer] [facility] Routine Hypertension, unspecified type Atherosclerosis of [place] coronary artery of [place] heart without angina pectoris Current every day smoker Other hyperlipidemia Palpitations Unstable angina pectoris (Multi) Sleep apnea with use of continuous positive airway pressure (CPAP) History of ST elevation myocardial infarction (STEMI) History of PTCA Shortness of breath Acute cough BMI 35.0-35.9,adult Expected: 12/13/2023 (Approximate), Expires: 12/12/2025 [facility] Work Phone: Comment on above: Expected: 12/13/2023 (Approximate), Expi res: 12/12/2025 Start: 12-13-2023 End: 12-12-2024 Lipid 1996 panel - Serum or Plasma Lipid Panel Lab Routine Hypertension, unspecified type Atherosclerosis of [place] coronary artery of [place] heart without angina pectoris Current every day smoker Other hyperlipidemia Palpitations Unstable angina pectoris (Multi) Sleep apnea with use of continuous positive airway pressure (CPAP) History of ST elevation myocardial infarction (STEMI) History of PTCA Shortness of breath Acute cough BMI 35.0-35.9,adult Expected: 12/13/2023, Expires: 12/12/2024 [facility] Work Phone: Comment on above: Expected: 12/13/2023, Expires: Start: 12-13-2023 End: 12-12-2024 Magnesium [Mass/volume] in Serum or Plasma Magnesium Lab Routine Hypertension, unspecified type Atherosclerosis of [place] coronary artery of [place] heart without angina pectoris Current every day smoker Other hyperlipidemia Palpitations Unstable angina pectoris (Multi) Sleep apnea with use of continuous positive airway pressure (CPAP) History of ST elevation myocardial infarction (STEMI) History of PTCA Shortness of breath Acute cough BMI 35.0-35.9,adult Expected: 12/13/2023, Expires: 12/12/2024 [facility] Work Phone: Comment on above: Expected: 12/13/2023, Expires: Start: 12-13-2023 End: 12-12-2025 NM Heart Perfusion W stress and W radionuclide IV Nuclear Stress Test Cardiac Nuclear Medicine Routine Hypertension, unspecified type Atherosclerosis of [place] coronary artery of [place] heart without angina pectoris Current every day smoker Other hyperlipidemia Palpitations Unstable angina pectoris (Multi) Sleep apnea with use of continuous positive airway pressure (CPAP) History of ST elevation myocardial infarction (STEMI) History of PTCA Shortness of breath Acute cough BMI 35.0-35.9,adult Expected: 12/13/2023 (Approximate), Expires: 12/12/2025 [facility] Work Phone: Comment on above: Expected: 12/13/2023 (Approximate), Expi res: 12/12/2025 Start: 12-13-2023 End: 12-12-2024 Thyrotropin [Units/volume] in Serum or Plasma Thyroid Stimulating Hormone Lab Routine Hypertension, unspecified type Atherosclerosis of [place] coronary artery of [place] heart without angina pectoris Current every day smoker Other hyperlipidemia Palpitations Unstable angina pectoris (Multi) Sleep apnea with use of continuous positive airway pressure (CPAP) History of ST elevation myocardial infarction (STEMI) History of PTCA Shortness of breath Acute cough BMI 35.0-35.9,adult Expected: 12/13/2023, Expires: 12/12/2024 [facility] Work Phone: Comment on above: Expected: 12/13/2023, Expires: Start: 12-13-2023 End: 12-12-2025 US Heart Transthoracic Transthoracic Echo (TTE) Complete Echocardiography Routine Hypertension, unspecified type Atherosclerosis of [place] coronary artery of [place] heart without angina pectoris Current every day smoker Other hyperlipidemia Palpitations Unstable angina pectoris (Multi) Sleep apnea with use of continuous positive airway pressure (CPAP) History of ST elevation myocardial infarction (STEMI) History of PTCA Shortness of breath Acute cough BMI 35.0-35.9,adult Expected: 12/13/2023 (Approximate), Expires: 12/12/2025 [facility] Service Area Work Phone: Comment on above: Expected: 12/13/2023 (Approximate), Expi res: 12/12/2025 Start: 12-13-2023 End: 12-12-2024 XR Chest 2 Views XR chest 2 views Imaging Routine Hypertension, unspecified type Atherosclerosis of [place] coronary artery of [place] heart without angina pectoris Current every day smoker Other hyperlipidemia Palpitations Unstable angina pectoris (Multi) Sleep apnea with use of continuous positive airway pressure (CPAP) History of ST elevation myocardial infarction (STEMI) History of PTCA Shortness of breath Acute cough BMI 35.0-35.9,adult Expected: 12/13/2023 (Approximate), Expires: 12/12/2024 [facility] Work Phone: Comment on above: Expected: 12/13/2023 (Approximate), Expi res: 12/12/2024 Start: 11-06-2023 Lipid panel Lipid screen [place] Start: 11-06-2023 Lipid screen Lipid screen [place] Start: 11-03-2023 COVID-19 Vaccine ( season) COVID-19 Vaccine ( season) [facility] Start: 11-03-2023 COVID-19 Vaccine ( season) COVID-19 Vaccine ( season) [facility] Start: 11-03-2023 Influenza vaccination [facility] Start: 10-09-2023 End: 10-09-2023 Patient encounter procedure 10/09/2023 12:30 PM EDT Office Visit [facility] [address] [place] [phone] Deborah Jeronimo MD [address] [place] [address] [facility] Start: 09-30-2023 End: 09-30-2023 Admission to same day surgery center 09/30/2023 7:30 AM EDT - 09/30/2023 9:15 AM EDT Surgery [facility] A Division of [facility] [address] [place] [address] 2 [place] [phone] Deborah Jeronimo MD [address] [place] [address] CYSTOSCOPY BIPOLAR TRANSURETHRAL RESECTION PROSTATE [14380 (CPT )] [facility] Surgery A Division [facility] Comment on above: CYSTOSCOPY BIPOLAR TRANSURETHRAL RESECTI ON PROSTATE [20295 (CPT )] Start: 09-30-2023 Subsequent hospital visit by physician 09/30/2023 7:30 AM EDT Hospital Encounter [facility] A [facility] [address] [place] [address] 2 [place] [phone] Deborah Jeronimo MD [address] [place] [address] [facility] Ambulatory Surgery A Division [facility] Start: 09-30-2023 End: 09-30-2023 Trurl electrosurg rescj prostate bleed complete CYSTOSCOPY BIPOLAR TRANSURETHRAL RESECTION PROSTATE Enlarged prostate Benign prostatic hyperplasia with urinary obstruction 09/30/2023 7:30 AM EDT [facility] Start: 09-16-2023 End: 09-16-2023 Patient encounter procedure 09/16/2023 9:30 AM EDT Procedure visit [facility] On [address] [phone] [facility] Start: 09-09-2023 End: 09-09-2023 Patient encounter procedure 09/09/2023 12:30 PM EDT Office [facility] [address] [place] [address] [place] [phone] Deborah Jeronimo MD [address] [place] [address] [facility] Start: 08-21-2023 End: 08-21-2023 Admission to same day surgery center 08/21/2023 8:30 AM EDT - 08/21/2023 9:00 AM EDT Surgery [facility] - Surgery [address] [place] [phone] Deborah Jeronimo MD [address] [place] [address] CYSTOSCOPY WITH [facility] BLADDER SOLUTION [92785 (CPT )] [facility] Surgery Comment on above: CYSTOSCOPY WITH [facility] M BLADDER SOLUTION [22454 (CPT )] Start: 08-21-2023 End: 08-21-2023 Cystourethroscopy [facility] Start: 08-21-2023 Subsequent hospital visit by physician 08/21/2023 8:30 AM EDT Hospital Encounter [facility] - Surgery [address] [place] [phone] Deborah Jeronimo MD [address] [place] [address] [facility] - Surgery Start: 08-20-2023 End: 08-20-2023 ambulatory 08/20/2023 4:00 PM EDT Support Visit [facility] - Pre Admit [address] [place] [phone] [facility] - Pre Admit Start: 07-26-2023 End: 07-26-2023 ambulatory 07/26/2023 1:00 PM EDT Support Visit [facility] [address] [place] [phone] [facility] Start: 07-04-2023 End: 07-03-2024 Cystometrogram Cystometrogram Procedure Routine Benign prostatic hyperplasia with urinary obstruction Expected: 07/04/2023, Expires: 07/03/2024 [facility] Comment on above: Expected: 07/04/2023, Expires: Start: 07-04-2023 End: 07-03-2024 US Retroperitoneum Ultrasound retroperitoneal complete Imaging Routine Benign prostatic hyperplasia with urinary obstruction Expected: 07/04/2023, Expires: 07/03/2024 [facility] Comment on above: Expected: 07/04/2023, Expires: Start: 07-04-2023 End: 07-04-2023 Patient encounter procedure 07/04/2023 1:00 PM EDT Office Visit [facility] [address] [place] [phone] Deborah Jeronimo MD [address] [place] [address] [facility] Start: 06-09-2023 Administration of varicella zoster vaccine Zoster (Shingles) Vaccine (1 of 2) [facility] Comment on above: Postponed from 07/09/2015 (Patient Refus ed) Start: 06-09-2023 DTaP,Tdap and Td Vaccines (1 - Tdap) DTaP,Tdap and Td Vaccines (1 - Tdap) [facility] Comment on above: Postponed from 1984 (Patient Refus ed) Start: 06-02-2023 Influenza vaccination Influenza Vaccine [facility] Comment on above: Postponed from 11/02/2022 (Patient Refus ed) Start: 05-01-2023 End: 05-01-2023 Patient encounter procedure 05/01/2023 10:30 AM EST Office Visit [facility] [address] [place] [address] Hunter Robins, BREAKFAST SUPERVISOR-M[employer] INFLATED [employer]ALL [address] [place] [address] [facility] Start: 11-02-2022 COVID-19 Vaccine ( season) COVID-19 Vaccine ( season) [facility] Start: 07-13-2022 FUV, Provider: Leonid Figueredo, Status: Pen, Time: 9:00 AM FUV, Provider: Leonid Figueredo, Status: Pen, Time: 9:[address] [facility] 250 DO Work Phone: Start: 06-04-2022 Adult depression screening assessment DEPRESSION SCREENING [facility] Start: 11-19-2021 Diabetes mellitus screening Diabetes Screening [facility] Start: 11-02-2021 Influenza [facility] ([facility] Ended[facility] Start: 10-27-2021 FUV, Provider: Leonid Figueredo, Status: Pen, Time: 2:50 PM FUV, Provider: Leonid Figueredo, Status: Pen, Time: 2:50 PM [facility] 600 DO Work Phone: Start: 05-03-2021 Creatinine measurement Creatinine monitoring [employer] Phone: Start: 05-03-2021 Potassium monitoring Potassium monitoring [employer] Phone: Start: 04-28-2021 Influenza vaccination Flu vaccine (#1) [employer] Phone: Comment on above: Postponed from 11/03/2019 (Patient Refus ed) Start: 04-28-2021 Pneumococcal 0-64 years Vaccine (1 of 1 - PPSV23) Pneumococcal 0-64 years Vaccine (1 of 1 - PPSV23) [employer] Phone: Comment on above: Postponed from 07/09/1971 (Patient Refus ed) Start: 03-30-2021 FUV, Provider: Rachel Stacy, Status: Pen, Time: 4:30 PM FUV, Provider: Rachel Stacy, Status: Pen, Time: 4:30 PM [facility] 127 DO Work Phone: Start: 12-27-2020 FUV, Provider: Kalie Lebron, Status: Pen, Time: 1:00 PM FUV, Provider: Kalie Lebron, Status: Pen, Time: 1:00 PM [facility] 127A [place] Work Phone: Start: 11-01-2020 Creatinine measurement Creatinine monitoring [facility] [place] Start: 11-01-2020 Potassium monitoring Potassium monitoring [facility], [place] Start: 10-05-2020 Shingles Vaccine (1 of 2) Shingles Vaccine (1 of 2) [facility] [place] Comment on above: Postponed from 07/09/2015 (Patient Refus ed) Start: 2020 PROSTATE CANCER SCREENING DISCUSSION PROSTATE CANCER SCREENING DISCUSSION [facility] Start: 05-26-2020 End: 05-26-2020 Office Visit 05/26/2020 Office Visit Primary Care Margarita Cagle MD [address] [place] [address] [phone] [facility] Start: 12-16-2019 End: 12-16-2019 Office Visit 12/16/2019 Office Visit Family Medicine Kash Grier MD [address] [place] [address] [phone] Kash Grier MD [facility] Start: 12-08-2019 End: 12-08-2019 Office Visit 12/08/2019 Office Visit Primary Care Patria Quiñones CPNP [address] [place] [address] [phone] [facility] Start: 11-23-2019 End: 11-23-2019 Office Visit 11/23/2019 Office Visit Orthopedic Surgery Liu Jackson MD [address] [place] [address] [phone] [facility] Start: 11-10-2019 End: 11-10-2019 Hospital Encounter [facility] Comment on above: KNEE ARTHROSCOPY WITH PARTIAL MEDICAL ME NISECTOMY Start: 11-06-2019 End: 11-06-2019 Appointment 11/06/2019 Appointment Pre-Admission Testing [facility] Start: 11-06-2019 Creatinine measurement Creatinine monitoring [place], [place] Start: 11-06-2019 Creatinine monitoring Creatinine monitoring [place], [place] Start: 11-06-2019 Potassium monitoring Potassium monitoring [place] Start: 11-03-2019 Influenza vaccination Flu vaccine (#1) [place] Start: 11-02-2019 End: 11-02-2019 Appointment 11/02/2019 Appointment Pre-Admission Testing [facility] Start: 10-31-2019 DTaP/Tdap/Td vaccine (1 - Tdap) DTaP/Tdap/Td vaccine (1 - Tdap) [place] Comment on above: Postponed from 1984 (Patient Refus ed) Start: 10-31-2019 HIV screen HIV screen [place] Comment on above: Postponed from 1980 (Patient Refus ed) Start: 10-31-2019 HIV screening HIV screen [place] Comment on above: Postponed from 1980 (Patient Refus ed) Start: 10-31-2019 Pneumococcal 0-64 years Vaccine (1 of 1 - PPSV23) Pneumococcal 0-64 years Vaccine (1 of 1 - PPSV23) [place] Comment on above: Postponed from 07/09/1971 (Patient Refus ed) Start: 10-06-2019 End: 10-06-2019 Office Visit 10/06/2019 Office Visit Primary Care Patria Quiñones CPNP [address] [place] [address] [phone] [facility] Start: 09-29-2019 End: 09-29-2019 Office Visit 09/29/2019 Office Visit Family Medicine Patria Quiñones CPNP [address] [place] [address] [phone] [facility] Start: 05-02-2019 Shingles Vaccine (1 of 2) Shingles Vaccine (1 of 2) [place] Comment on above: Postponed from 07/09/2015 (Patient Refus ed) Start: 01-15-2019 End: 01-15-2019 Office Visit 01/15/2019 Office Visit Primary Care Margarita Cagle MD [address] [place] [address] [phone] [facility] Start: 12-15-2018 End: 12-15-2018 Office Visit 12/15/2018 Office Visit Family Medicine Kash Grier MD [address] [place] [address] [phone] [facility] Start: 11-02-2018 Influenza vaccination Flu vaccine (#1) [place] Start: 07-09-2015 Administration of varicella zoster vaccine Zoster (Shingles) Vaccine (1 of 2) [facility] Start: 07-09-2015 Colon cancer screen colonoscopy Colon cancer screen colonoscopy [place] Start: 07-09-2015 Screening for malignant neoplasm of colon Colon cancer screen colonoscopy [place] Start: 07-09-2015 Shingles Vaccine (1 of 2) Shingles Vaccine (1 of 2) [place] Start: 07-09-2015 SHINGRIX VACCINE (1 of 2) SHINGRIX VACCINE (1 of 2) [facility] Start: 07-09-2015 Zoster Vaccines (1 of 2) Zoster Vaccines (1 of 2) [facility] Start: 2010 COLOGUARD (FIT-DNA) COLOGUARD (FIT-DNA) [facility] Start: 2010 Colonoscopy COLONOSCOPY [facility] Start: 2010 COLORECTAL CANCER SCREENING COLORECTAL CANCER SCREENING [facility] Start: [address] COLONOGRAPHY [facility] Start: 2010 DIABETES SCREEN DIABETES SCREEN [facility] Start: 2010 FECAL OCCULT BLOOD FECAL OCCULT BLOOD [facility] Start: 2010 SIGMOIDOSCOPY SIGMOIDOSCOPY [facility] Start: 2005 Diabetes screen Diabetes screen [place] Start: 2005 Lipid screen Lipid screen [place] Start: 2000 LIPID SCREEN LIPID SCREEN [facility] Start: 07-09-1987 DTaP/Tdap/Td Vaccines (1 - Tdap) DTaP/Tdap/Td Vaccines (1 - Tdap) [facility] Start: 1984 DTaP,Tdap and Td Vaccines (1 - Tdap) DTaP,Tdap and Td Vaccines (1 - Tdap) [facility] Start: 1984 DTaP/Tdap/Td vaccine (1 - Tdap) DTaP/Tdap/Td vaccine (1 - Tdap) [place] Start: 1984 Hepatitis B Vaccines (1 of 3 - 19+ 3-dose series) Hepatitis B Vaccines (1 of 3 - 19+ 3-dose series) [facility] Start: 1984 Pneumococcal vaccination Pneumococcal Vaccine (1 of 2 - PCV) [facility] Start: 1984 Urine microalbumin profile DTAP,TDAP,TD (1 - Tdap) [facility] Start: 07-09-1983 Adult BMI Follow Up Plan Adult BMI Follow Up Plan [facility] Start: 07-09-1983 Diabetes mellitus screening Diabetes Screening [facility] Start: 07-09-1983 HEPATITIS C SCREENING HEPATITIS C SCREENING [facility] Start: 07-09-1983 Hepatitis C screening Hepatitis C Screening [facility] Start: 07-09-1983 HIV SCREENING HIV SCREENING [facility] Start: 1980 HIV screening HIV screen [place] Start: 07-09-1971 Pneumococcal 0-64 years Vaccine (1 of 1 - PPSV23) Pneumococcal 0-64 years Vaccine (1 of 1 - PPSV23) [place] Start: 07-09-1971 Pneumococcal Vaccine: Pediatrics (0 to 5 Years) and At-Risk Patients (6 to 64 Years) (1 of 2 - PCV) Pneumococcal Vaccine: Pediatrics (0 to 5 Years) and At-Risk Patients (6 to 64 Years) (1 of 2 - PCV) [facility] Start: 1970 COVID-19 VACCINE (1) COVID-19 VACCINE (1) [facility] Start: 1966 MMR Vaccines (1 of 1 - Standard series) MMR Vaccines (1 of 1 - Standard series) [facility] Start: 1965 Annual wellness visit Welcome to Medicare Visit [facility] Start: 1965 Creatinine monitoring Creatinine monitoring [facility] [employer] Start: 1965 HIV screening HIV Screening [facility] Start: 1965 Lipid panel Lipid Panel [facility] Start: 1965 [facility] Start: 1965 Screening for malignant neoplasm of colon [facility] Start: 1965 Tobacco Counseling [facility] Start: 1965 Yearly Adult Physical Yearly Adult Physical [facility] End: 07-03-2024 Bacteria identified in Urine by Culture Urine Culture Microbiology Routine Benign prostatic hyperplasia with urinary obstruction 1 Occurrences starting 07/04/2023 until 07/03/2024 [employer] Comment on above: 1 Occurrences starting 07/04/2023 until 07/03/2024 Cardiac Catheterizat ion - Onbase Scan Cardiac Catheterization - Onbase Scan Cardiac Cath Routine Shortness of breath Ordered: 01/06/2024 [facility] Service Area Work Phone: Comment on above: Ordered: 01/06/2024 End: 11-06-2019 COVID-19 COVID-19 Lab Routine One Time for 1 Occurrences starting 11/06/2019 until 11/06/2019 [facility] Comment on above: One Time for 1 Occurrences starting 06/2019 until 11/06/2019 End: 07-06-2022 Ct cervical spine w/o contrast material CT CERVICAL SPINE WO IVCON Radiology Routine Spinal stenosis of cervical region 1 Occurrences starting 06/06/2021 until 07/06/2022 [facility] Work Phone: Comment on above: 1 Occurrences starting 06/06/2021 until 07/06/2022 Oxygen therapy [[facility]] Initiate Oxygen Therapy Protocol Respiratory Care Routine Daily until discontinued starting 11/10/2019 [facility] Comment on above: Daily until discontinued starting 2019 Patient referral [facility] Work Phone: Phase I & II - meter ed glucose Phase I & II - metered glucose Point of Care Testing Routine As Needed until discontinued starting 11/10/2019 [facility] [place] Comment on above: As Needed until discontinued starting End: 07-03-2024 Prostatic specific antigen, diagnostic Prostatic specific antigen, diagnostic Lab Routine Benign prostatic hyperplasia with urinary obstruction 1 Occurrences starting 07/04/2023 until 07/03/2024 [facility] Work Phone: Comment on above: 1 Occurrences starting 07/04/2023 until 07/03/2024 End: 07-06-2022 Radex spine cervical 4 or 5 views XR CERV OTHER 4V AP/LAT/FLX/EXT Radiology Routine Cervical spondylosis with myelopathy 1 Occurrences starting 06/06/2021 until 07/06/2022 [facility] Work Phone: Comment on above: 1 Occurrences starting 06/06/2021 until 07/06/2022 XR Lumbar spine Views [facility] Immunizations Immunization Date Immunization Notes Care Provider [facility] 11-04-2019 influenza, seasonal, injectable Colten Gordon Work Phone: [address] Work Phone: 11-04-2019 influenza virus vaccine, unspecified formulation Guicho Mulligan MD Work Phone: [facility] Work Phone: 11-03-2019 influenza, seasonal, injectable Hunter Julienne BREAKFAST SU[employer] Work Phone: [facility] 11-03-2019 influenza virus vaccine, unspecified formulation Hunter Julienne BREAKFAST SUPER[employer] Work Phone: [facility] 01-21-2019 influenza virus vaccine, unspecified formulation [facility], [place] 01-21-2019 influenza, injectabl e, quadrivalent, contains preservative Shivaprasad Gurjit [facility], [place] 01-02-2019 influenza, injectabl e, quadrivalent, contains preservative Colten Andrade Furlong Work Phone: -[facility] 600 DO Work Phone: 12-02-2016 influenza, injectabl e, quadrivalent, preservative free [address] [place] Payers Date Payer Category Payer Medicare (Managed Care) [facility] [id number] 2024 Medicare HMO [employer] MEDICARE 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 2021 Blue Cross Blue Shie ld Managed Care [facility] [id number] 2021 Unknown ANTHEM BLUE ACCE SS PPO [id number] 2021-Present [phone] [id number] [place] [id number] PPO [id number] 2018 Unknown BCBS [place] - [place] P PO xxxxxxxxxxxx 2018-Present [id number] [place] [address] xxxxxxxxxxxx [id number] 2018 Unknown BC[place] - [place] P PO [id number] 2018-Present [id number] [place] [address] [id number] 2015 Blue Cross Jonnathan Gutierreze ld Managed Care - PPO ANTHEM [id number] 2015 Unknown [id number]. [id number] 2015 Unknown 1965 Unknown [id number] 2.16.840.1.682689.3.579. 2.175 1965 Unknown [id number] 2.16.840.1.212870.3.579. 2.175 1965 Unknown [id number] 2.16.840.1.674301.3.579. 2.175 1965 Unknown [id number] 2.16.840.1.089331.3.579. 2.176 1965 Unknown [id number] 2.16.840.1.700214.3.579. 2.176 1965 Unknown [id number] 2.16.840.1.041349.3.579. 2.176 1965 Unknown [id number] 2.16.840.1.800430.3.579. 2.176 1965 Unknown [id number] 2.16.840.1.918632.3.579. 2.176 1965 Unknown [id number] 2.16.840.1.939895.3.579. 2.176 1965 Unknown [id number] 2.16.840.1.768042.3.579. 2.176 1965 Unknown [id number] 2.16.840.1.925863.3.579. 2.176 1965 Unknown [id number] 2.16.840.1.052575.3.579. 2.176 1965 Unknown [id number] 2.16.840.1.251860.3.579. 2.593 1965 Unknown [id number] 2.16.840.1.831839.3.579. 2.593 1965 Unknown [id number] 2.16.840.1.368721.3.579. 2.593 1965 Unknown [id number] 2.16.840.1.943440.3.579. 2.59 1965 Unknown [id number] 2.16.840.1.969011.3.579. 2.593 1965 Unknown [id number] 2.16.840.1.119965.3.579. 2.59 1965 Unknown [id number] 2.16.840.1.643611.3.579. 2.59 1965 Unknown [id number] 2.16.840.1.844454.3.579. 2. 1965 Unknown [id number] 2.16.840.1.332719.3.579. 2. 1965 Unknown [id number] 2.16.840.1.289300.3.579. 2. 1965 Unknown [id number] 2.16.840.1.127396.3.579. 2. 1965 Unknown [id number] 2.16.840.1.785659.3.579. 2. 1965 Unknown [id number] 2.16.840.1.171498.3.579. 2. 1965 Unknown [id number] 2.16.840.1.791773.3.579. 2.1285 1965 Unknown [id number] 2.16.840.1.200169.3.579. 2.1285 1965 Unknown [id number] 2.16.840.1.302663.3.579. 2.1285 1965 Unknown [id number] 2.16.840.1.899199.3.579. 2.1285 1965 Unknown [id number] 2.16.840.1.929028.3.579. 2.1285 1965 Unknown [id number] 2.16.840.1.641882.3.579. 2.1285 1965 Unknown [id number] 2.16.840.1.886350.3.579. 2.1285 1965 Unknown [id number] 2.16.840.1.621849.3.579. 2. 1965 Unknown [id number] 2.16.840.1.372316.3.579. 2. 1965 Unknown [id number] 2.16.840.1.640306.3.579. 2. 1965 Unknown [id number] 2.16.840.1.855772.3.579. 2.1285 1965 Unknown [id number] 2.16.840.1.638948.3.579. 2.1285 1965 Unknown [id number] 2.16840.1.257376.3.579. 2.1285 1965 Unknown [id number] 2.16.840.1.818269.3.579. 2.1285 1965 Unknown [id number] 2.16.840.1.636244.3.579. 2.1285 1965 Unknown [id number] 2.16.840.1.088874.3.579. 2.1285 1965 Unknown [id number] 2.16.840.1.048312.3.579. 2.1285 1965 Unknown [id number] 2.16.840.1.277277.3.579. 2.1285 1965 Unknown [id number] 2.16840.1.965330.3.579. 2.1285 1965 Unknown [id number] 2.16.840.1.547649.3.579. 2.1285 1959 Unknown [id number] 1959 Unknown [id number] Unknown [id number] 2.16.840.1.002336.3.579. 2.531 Unknown [id number] 2.16.840.1.189407.3.579. 2.531 Social History Date Type Detail Facility Start: 12-08-2018 End: 01-09-2024 Tobacco smoking status NHIS Current every day smoker [facility] Start: 12-08-2018 End: 04-14-2020 Cigarettes smoked current (pack per day) - Reported [facility] Comment on above: 1 ppd; Start: 12-08-2018 End: 04-14-2020 Alcohol intake Yes [facility] Start: 1965 Sex Assigned At Not on file M [place], [place] Start: 09-16-2019 End: 07-04-2023 Tobacco use and exposure Never used [place] Start: 09-16-2019 End: 02-05-2024 Alcohol intake Current drinker of alcohol (finding) [place] Start: 08-18-2023 End: 02-21-2024 Exposure to SARS-CoV-2 (event) Not sure [place] Start: 11-02-2019 Alcohol Comment very rare [facility] [place], [place] Start: 06-06-2021 Alcohol intake Ex-drinker (finding) [facility] Start: 1965 Sex Assigned At Male [facility] Start: 03-04-1978 History of tobacco use Cigarette Smo ker [facility] Start: 08-28-2023 Alcohol Comment very little [facility] Work Phone: Start: 12-11-2023 Gender identity Identifies as male gender (finding) [facility] Work Phone: Start: 12-11-2023 Sexual orientation Heterosexual (fin ding) [facility] Work Phone: Adolescent depressio n screening assessment 6 [facility] Start: 03-23-2022 Alcohol Comment rarely [facility] Start: 10-07-2014 Sex Male (finding) [facility] Goals Date Patient Goal Desired Activity /State Personal health goal Comment on above: Formatting of this n ote might be different from the original. Evaluation of progress towards goal: safe transition to home with support of pt's and resumption with outpatient PT. Clinical Notes 11-18-2020 to 10-06-2024 Note Date & Type Note Facility 10-06-2024 Evaluation note Diagnosis Onset Date Resolution Left lumbar radiculopathy acute October 06, 2024 10:03am Right leg pain acute October 10:03am [facility] Work Phone: 1(309) 163-397406-20-2025 History of Present illness Narrative* Rachel Stacy MD - 08/21/2024 9:45 AM EDT Images from the original note were not included. Chief Complaint: Chief Complaint Patient presents with Follow-up 6 month follow up for Shortness of breath Most recently seen in February 2024. Patient has atherosclerotic kas[place] vessel coronary artery disease and multiple cardiac risk factors. At last office visit, given bilateral lower extremity edema, we started Lasix 20 mg p.o. daily. I considered sending him to vascular surgery for exploring possibility of venous insufficiency, but patient wanted to wait because he was anticipating some changes in his insurance at the end of last year. Patient was recommended Lasix 20 mg p.o. daily Subjective : Review of Systems interval review of systems is negative for chest discomfort pressure tightness heaviness palpitations lightheadedness orthopnea paroxysmal nocturnal dyspnea or claudication TIA or CVA type symptoms or bleeding diathesis. Did not continue Lasix because of increased frequency of urination and interference with quality of life. Due to chronic hip pain, uses cane as ambulatory aid, no falls. He is in need of hip replacement, however his is in need of back surgery, and he will wait until his has her surgery History so Far : 1. Atherosclerosis of kas[place] coronary artery of [place] heart PCI November 2020-codominant system diffuse coronary disease 20 to 30% in all territories 100% distal mid RCA occlusion with ELIECER 0 antegrade flow 50% mid LAD after major diagonal branch, LVEDP 10 mmHg LVEF about 55% patient underwent PCI and stenting of the distal and mid RCA 3.5 x 16 mm Synergy drug-eluting stent with 0% residual stenosis and ELIECER-3 flow ramus intermedius branch with less than20% stenosis major diagonal branch less than 30% stenosis 2. History of PTCA A durable result has been achieved with the relief of anginal symptoms 3. Mixed hyperlipidemia Review of treatment strategy demonstrates good control 4. Primary hypertension Review of treatment strategy demonstrates good control 5. Current every day smoker Counseled on smoking cessation 6. BMI 37 01/06/24, 35.956 2024 7. Echocardiogram December 2023-LVEF 65% UTILIZED NORMAL CHAMBER DIMENSIONS NO SIGNIFICANT VALVULAR DISEASE NORMAL RV SYSTOLIC FUNCTION NORMAL PATTERN OF LV DIASTOLIC FILLING TRACE TRICUSPID REGURGITATION NO PERICARDIAL EFFUSION RV SYSTOLIC PRESSURE 37 MMHG 8. Lexiscan Myoview December 2023-abnormal, LVEF 51% apical dyskinesia mild apical ischemia possiblyperi-infarction no comparison study available EKGs with poor R wave progression 9. 48-hour Holter monitor December 2023 short run of atrial tachycardia no symptoms reported no atrial fibrillation no VT 10. Smoking 1 pack/day as of 01/06/2024 11. BNP level 61 January 09, 2024 12. Left heart catheterization January 09, 2024-right dominant 50% mid LAD stenosis with widely patent previous stent circumflex 0% stenosis LVEF 65% LVEDP 20 mmHg Objective Wt Readings from Last 3 Encounters: 08/21/24 127 kg (280 lb) 02/21/24 131 kg (289 lb) 01/06/24 132 kg (291 lb) Vitals: 08/21/24 0949 BP: 120/64 BP Location: Right arm Patient Position: Sitting Pulse: 68 Weight: 127 kg (280 lb) Height: 1.88 m (6' 2 ) Physical Exam: GENERAL APPEARANCE: in no acute distress. CHEST: Symmetric and non-tender. INTEGUMENT: Skin warm and dry HEENT: No gross abnormalities identified.No pallor or scleral icterus. NECK: Supple, no JVD, no bruit. NEURO/PSHCY: Alert and oriented x3; appropriate behavior and responses and responses LUNGS: Clear to auscultation bilaterally; normal respiratory effort. HEART: Rate and rhythm regular with no evident murmur; no gallop appreciated. ABDOMEN: Soft, non tender. MUSCULOSKELETAL: No gross deformities. EXTREMITIES: Warm There is trace to 1+ edema noted. Meds: Current Outpatient Medications Medication Instructions aspirin 81 mg, oral, Daily atorvastatin (LIPITOR) 80 mg, oral, Daily baclofen (Lioresal) 10 mg tablet 3 tablets, Daily PRN cyclobenzaprine (Flexeril) 10 mg tablet 1 tablet, 3 times daily (0900,1400,1900) divalproex (DEPAKOTE) 125 mg, Daily finasteride (PROSCAR) 5 mg, Daily RT HYDROcodone-acetaminophen (Hawthorne) 5-325 mg tablet 1 tablet, 2 times daily PRN lisinopriL-hydrochlorothiazide 20-12.5 mg tablet 1 tablet, oral, Daily magnesium oxide (MAG-OX) 400 mg, oral, 2 times daily metoprolol tartrate (LOPRESSOR) 50 mg, oral, 2 times daily nitroglycerin (NITROSTAT) 0.4 mg, sublingual, Every 5 min PRN tamsulosin (FLOMAX) 0.4 mg, Daily zonisamide (Zonegran) 50 mg capsule 3 capsules, 2 times daily Allergies: Isosorbide mononitrate, Amoxicillin, and Prednisone August 2024 sodium 140 potassium 3.7 BUN 16 creatinine 0.96 liver enzymes normal GFR greater than 90 Reviewed all available pertinent laboratory data and diagnostic testing results that occurred afterthe last office visit with me Assessment: 1. Atherosclerosis of kas[place] coronary artery of kas[place] heart without angina pectoris 2. Medication course changed 3. Primary hypertension Follow Up In Cardiology 4. Mixed hyperlipidemia 5. Palpitations 6. Current every day smoker 7. Sleep apnea with use of continuous positive airway pressure (CPAP) 8. BMI 35.0-35.9,adult Clinical Decision Making: Lower extremity edema may improve with discontinuation of amlodipine, therefore we will discontinueamlodipine When amlodipine is discontinued, we will increase lisinopril to 40 mg daily, new lisinopril hydrochlorothiazide dose would be 40/12.5 mg daily Add Aldactone 25 mg p.o. daily Basic metabolic profile in 7 to 10 days Patient is compliant with CPAP therapy. Follow up : 6 months Comprehensive profile and lipid profile prior to next visit IVanessa LPN am scribing for, and in the presence of Dr. Rachel Stacy MD, FACC. I, Dr. Rachel Stacy MD, FACC, personally performed the services described in the documentation as scribed by Vanessa Palacios LPN in my presence, and confirm it is both accurate and complete. documented in this [facility] Work Phone: 1(625) 709-653306-20-2025 Instructions* Patient Instructions* Vanessa Ambriz LPN - 08/21/2024 9:45 AM EDT Please bring all medicines, vitamins, and herbal supplements with you when you come to the office. Prescriptions will not be filled unless you are compliant with your follow up appointments or have a follow up appointment scheduled as per instruction of your physician. Refills should be requested at the time of your visit. BMI was above normal measurement. Current weight: 127 kg (280 lb) Weight change since last visit (-) denotes wt loss -9 lbs Weight loss needed to achieve BMI 25: 85.7 Lbs Weight loss needed to achieve BMI 30: 46.8 Lbs Provided instructions on dietary changes. * Attachments The following attachments cannot be sent through Care Everywhere. * Mediterranean Diet (Indian) documented in [facility] Work Phone: 1(741) 165-583203-17-2025 Miscellaneous Notes* Telephone Encounter - Jaqueline Warren CMA - 05/18/2024 4:55 PM EDT [facility] [id number] Telephone encounter Note* Telephone Encounter - Jaqueline Warren CMA - 05/18/2024 4:55 PM EDT [facility] you [facility] [employer] [id number] Miscellaneous Notes* Telephone Encounter - Esperanza Candelaria CMA - 04/23/2024 8:47 AM EST I received fax refill request from [facility] for pts Flomax, I called pt to see if this is a refill he needs at this time. [facility] Telephone encounter Note* Telephone Encounter - Esperanza Candelaria CMA - 04/23/2024 8:47 AM EST I received fax refill request from [facility] for pts Flomax, I called pt to see if this is a refill he needs at this time. [facility]01-15-2025 History of Present illness Narrative* Chery Gonzalez LPN - 03/18/2024 1:25 PM EST This nurse changed the Pt.s pharmacy to new pharmacy so that his Finasteride could be sent into [facility] pharmacy. Christie, could you please resend Finasteride for the Pt. Into the [facility] please? Thank you, Chery * YAO Kenney - 03/18/2024 1:25 PM EST Rx sent to [facility] YAO Kenney 03/19/24 0845 documented in this encounterKing[facility] [id number] History of Present illness Narrative* Rachel Stacy MD - 02/21/2024 1:15 PM EST Most recently seen 01/06/2024. Cardiac catheterization was recommended. Medications were uptitrated.Patient presents for follow-up. Subjective : Patient reports significant improvement in the shortness of breath and chest discomfort with initiation of amlodipine 5 mg daily and magnesium oxide. Complains of bilateral lower extremity edema 12 point ROS is negative or non contributory except as noted. History so Far : 1. Atherosclerosis of kas[place] coronary artery of [place] heart PCI November 2020-codominant system diffuse coronary disease 20 to 30% in all territories 100% distal mid RCA occlusion with ELIECER 0 antegrade flow 50% mid LAD after major diagonal branch, LVEDP 10 mmHg LVEF about 55% patient underwent PCI and stenting of the distal and mid RCA 3.5 x 16 mm Synergy drug-eluting stent with 0% residual stenosis and ELIECER-3 flow ramus intermedius branch with less than20% stenosis major diagonal branch less than 30% stenosis 2. History of PTCA A durable result has been achieved with the relief of anginal symptoms 3. Mixed hyperlipidemia Review of treatment strategy demonstrates good control 4. Primary hypertension Review of treatment strategy demonstrates good control 5. Current every day smoker Counseled on smoking cessation 6. BMI 37 01/06/24 7. Echocardiogr9.am December 2023-LVEF 65% UTILIZED NORMAL CHAMBER DIMENSIONS NO SIGNIFICANT VALVULAR DISEASE NORMAL RV SYSTOLIC FUNCTION NORMAL PATTERN OF LV DIASTOLIC FILLING TRACE TRICUSPID REGURGITATION NO PERICARDIAL EFFUSION RV SYSTOLIC PRESSURE 37 MMHG 8. Lexiscan Myoview December 2023-abnormal, LVEF 51% apical dyskinesia mild apical ischemia possiblyperi-infarction no comparison study available EKGs with poor R wave progression 9. 48-hour Holter monitor December 2023 short run of atrial tachycardia no symptoms reported no atrial fibrillation no VT 10. Smoking 1 pack/day as of 01/06/2024 11. BNP level 61 January 09, 2024 12. Left heart catheterization January 09, 2024-right dominant 50% mid LAD stenosis with widely patent previous stent circumflex 0% stenosis LVEF 65% LVEDP 20 mmHg Objective Wt Readings from Last 3 Encounters: 02/21/24 131 kg (289 lb) 01/06/24 132 kg (291 lb) 12/13/23 130 kg (286 lb) Vitals: 02/21/24 1315 BP: 130/62 BP Location: Right arm Patient Position: Sitting Pulse: 78 Weight: 131 kg (289 lb) Height: 1.88 m (6' 2 ) Physical Exam: GENERAL APPEARANCE: in no acute distress. CHEST: Symmetric and non-tender. INTEGUMENT: Skin warm and dry HEENT: No gross abnormalities identified.No pallor or scleral icterus. NECK: Supple, no JVD, no bruit. NEURO/PSHCY: Alert and oriented x3; appropriate behavior and responses and responses LUNGS: Clear to auscultation bilaterally; normal respiratory effort. HEART: Rate and rhythm regular with no evident murmur; no gallop appreciated. ABDOMEN: Soft, non tender. MUSCULOSKELETAL: No gross deformities. EXTREMITIES: Warm There is 1-2+ bilateral edema noted. Meds: Current Outpatient Medications Medication Instructions amLODIPine (NORVASC) 5 mg, oral, Daily aspirin 81 mg, oral, Daily atorvastatin (LIPITOR) 80 mg, oral, Daily baclofen (Lioresal) 10 mg tablet 3 tablets, Daily PRN divalproex (DEPAKOTE) 125 mg, Daily finasteride (PROSCAR) 5 mg, Daily RT furosemide (LASIX) 20 mg, oral, Daily HYDROcodone-acetaminophen (Hawthorne) 5-325 mg tablet 1 tablet, 2 times daily PRN lisinopriL-hydrochlorothiazide 20-12.5 mg tablet 1 tablet, oral, Daily magnesium oxide (MAG-OX) 400 mg, oral, 2 times daily metoprolol tartrate (LOPRESSOR) 50 mg, oral, 2 times daily nitroglycerin (NITROSTAT) 0.4 mg, sublingual, Every 5 min PRN tamsulosin (FLOMAX) 0.4 mg, Daily Allergies Allergen Reactions Isosorbide Mononitrate Headache Amoxicillin Nausea/vomiting Prednisone Palpitations LABS: Lab Results Component Value Date WBC 22.9 (H) 11/19/2020 HGB 13.5 11/19/2020 HCT 41.2 11/19/2020 PLT 333 11/19/2020 ALT 19 11/18/2020 AST 15 11/18/2020 NA 140 11/19/2020 K 3.8 11/19/2020 CL 109 (H) 11/19/2020 CREATININE 0.83 11/19/2020 BUN 20 11/19/2020 CO2 23 11/19/2020 INR 1.1 11/19/2020 BNP level 61 total cholesterol 103 HDL 36 triglycerides 117 LDL 44 total cholesterol to HDL ratio 2.9 BUN 15 sodium 140 potassium 4 hemoglobin 14 hematocrit 41 platelet count 3 20,000 Patient Active Problem List Diagnosis Date Noted Encounter to discuss test results 01/06/2024 Fatigue 01/06/2024 Medication course changed 01/06/2024 Palpitations 12/13/2023 Chest pain 12/13/2023 Sleep apnea with use of continuous positive airway pressure (CPAP) 12/13/2023 Shortness of breath 12/13/2023 Cough 12/13/2023 BMI 35.0-35.9,adult 08/28/2023 CAD (coronary atherosclerotic disease) 04/02/2023 History of PTCA 04/02/[address] elevation myocardial infarction (STEMI) 04/02/2023 Hyperlipemia 04/02/2023 Hypertension 04/02/2023 Current every day smoker 04/02/2023 Assessment: 1. Shortness of breath Follow Up In Cardiology furosemide (Lasix) 20 mg tablet 2. Encounter to discuss test results 3. History of PTCA 4. Mixed hyperlipidemia Lipid Panel atorvastatin (Lipitor) 80 mg tablet Lipid Panel 5. Primary hypertension furosemide (Lasix) 20 mg tablet Basic Metabolic Panel Follow Up In Cardiology Comprehensive Metabolic Panel amLODIPine (Norvasc) 5 mg tablet lisinopriL-hydrochlorothiazide 20-12.5 mg tablet metoprolol tartrate (Lopressor) 50 mg tablet Basic Metabolic Panel Comprehensive Metabolic Panel 6. Current every day smoker 7. BMI 37.0-37.9, adult 8. Medication course changed 9. Hypertension, unspecified type 10. Atherosclerosis of [place] coronary artery of kas[place] heart without angina pectoris 11. Other hyperlipidemia 12. Sleep apnea with use of continuous positive airway pressure (CPAP) 13. History of ST elevation myocardial infarction (STEMI) 14. BMI 35.0-35.9,adult Clinical decision making: Patient's symptoms have improved on current medical therapy Cardiac catheterization findings were reviewed Continue ongoing risk factor modification and antiplatelet therapy LVEDP was elevated, patient is complaining of bilateral lower extremity edema, diuresis may help him. Will start Lasix 20 mg p.o. daily and check basic metabolic profile in 7 to 10 days. I considered sending him to vascular surgery for his lower extremity edema to explore possibility of venous insufficiency, he would like to wait, he is anticipating some changes in his insurance by summer of next year, and I will reevaluate at that time. Comprehensive profile and lipid profile prior to next visit Follow up : 6 months Provider Attestation - Rubia Brannon LPN Scribe documentation All medical record entries made by the Scribe were at my direction and personally dictated by me. Ihave reviewed the chart and agree that the record accurately reflects my personal performance of the history, physical exam, discussion and plan. documented in this encounterW[facility] Work Phone: 1(334) 605-987712-20-2024 Instructions* Patient Instructions* Rubia Verduzco LPN - 02/21/2024 1:15 PM EST Please bring all medicines, vitamins, and herbal supplements with you when you come to the office. Prescriptions will not be filled unless you are compliant with your follow up appointments or have a follow up appointment scheduled as per instruction of your physician. Refills should be requested at the time of your visit. BMI was above normal measurement. Current weight: 131 kg (289 lb) Weight change since last visit (-) denotes wt loss -2 lbs Weight loss needed to achieve BMI 25: 94.7 Lbs Weight loss needed to achieve BMI 30: 55.8 Lbs Provided instructions on dietary changes Provided instructions on exercise. documented in this encounterWadsworth[facility] Work Phone: 1(643) 483-628012-04-2024 Evaluation + Plan note* Assessment & Plan Note - Deborah Jeronimo MD - 02/05/2024 2:55 PM ESTAssociated Problem(s): Benign prostatic hyperplasia with urinary obstruction Decision then may today to make his medications long-term. [facility]. [id number] Miscellaneous Notes* Assessment & Plan Note - Deborah Jeronimo MD - 02/05/2024 2:55 PM ESTAssociated Problem(s): Benign prostatic hyperplasia with urinary obstruction Decision then may today to make his medications long-term. Refilled. [facility] in [facility]12-[facility]-2024 History of Present illness Narrative* Deborah Jeronimo MD - 02/05/2024 2:15 PM EST Images from the original note were not included. [address] [place] [address] [address] [facility] [id number] Patient: Ashok Doss Date of : 1965 Encounter Date: 02/05/2024 History of Present Illness: The patient is a 58 y.o. male, an established patient, and is here for lower urinary tract symptomsBPH bladder outlet obstruction marked improvement with maximal medical therapy. Very happy with current state. No retention. No incontinence.. Urinalysis today: No results for input(s): EXTPOCURCO , EXTPOCURCH , EXTPOCAPP , EXTPOCURBS , EXTPOCURBIL , EXTPOCUKET , EXTPOCUSPG , EXTPOCUHGB , EXTPOCUPRO , EXTPOCUURO , EXTPOCULEU , EXTPOCUNIT , EXTPOCUWBC , EXTPOCUBLD , EXTPOCURBC , EXTPOCUCRY , EXTPOCUBAC , EXTPOCUTREP , EXTPOCUPH in the last 72 hours. Last BUN and creatinine: Lab Results Component Value Date BUN 15 12/30/2023 Lab Results Component Value Date CREATININE 0.92 12/30/2023 Last PSA: Lab Results Component Value Date PSA 0.66 07/11/2023 Lab Results Component Value Date PROSTATICSP 0.59 06/08/2022 Past Medical, Family, and Social History Update: The following portions of the patient's history were reviewed and updated as appropriate: allergies, current medications, past family history, past medical history, past social history, past surgicalhistory and problem list. Past Medical History: Diagnosis Date Arthritis DVT (deep venous thrombosis) ([facility]) x2 Fractures Headache Hyperlipidemia Hypertension Myocardial infarction ([facility]) PONV (postoperative nausea and vomiting) Sleep apnea Past Surgical History: Procedure Laterality Date ANKLE SURGERY Left CARDIAC CATHETERIZATION 2020 stent CARDIAC CATHETERIZATION 01/09/2024 CARPAL TUNNEL RELEASE Right COLONOSCOPY N/A 12/07/2022 Performed by Jenae Samuels DO at [facility] CYSTOSCOPY WITH [facility] BLADDER SOLUTION N/A 08/21/2023 Performed by Deborah Jeronimo MD at [facility] FRACTURE SURGERY Right knee, tibia INJECTION HIP & CPT 04212 Left 01/22/2024 Performed by Zainab Marshall DO at [facility] KNEE SURGERY Bilateral meniscectomy-bilateral LUMBAR LAMINECTOMY RADIO FREQUENCY ABLATION 06/13/2023 BACK SINUS SURGERY Family History Problem Relation Age of Onset Scleroderma Mother in her 80's Heart failure Father at age 90 No Known Problems Paternal Grandfather at age 98 after slipping and falling and hitting head in bathroom No Known Problems Half Brother maternal Current Outpatient Medications Medication Sig Dispense Refill albuterol (PROVENTIL,VENTOLIN) 2.5 mg /3 mL (0.083 %) nebulizer solution Inhale 3 mL (2.5 mg total)by nebulization 4 (four) times a day. 75 mL 1 amLODIPine (NORVASC) 5 mg tablet Take 1 tablet (5 mg total) by mouth in the morning. aspirin 81 mg Take 1 tablet (81 mg total) by mouth in the morning. atorvastatin (LIPITOR) 80 mg tablet TAKE 1 TABLET (80 MG TOTAL) BY MOUTH IN THE MORNING 90 tablet 1 baclofen (LIORESAL) 10 mg tablet Take 1 tablet (10 mg total) by mouth 3 (three) times a day. dextromethorphan-guaiFENesin (ROBITUSSIN-DM) 10-100 mg/5 mL liquid Take 5 mL by mouth every 12 (twelve) hours. 236 mL 0 divalproex (DEPAKOTE) 125 mg EC tablet TAKE 1 TABLET BY MOUTH EVERY DAY 90 tablet 0 HYDROcodone-acetaminophen (NORCO) 5-325 mg per tablet Take 1 tablet by mouth 2 (two) times a day asneeded. lisinopril-hydroCHLOROthiazide (PRINZIDE,ZESTORETIC) 20-12.5 mg per tablet Take 1 tablet by mouth in the morning. magnesium oxide (MAGOX) 400 mg tablet Take 1 tablet (400 mg total) by mouth in the morning and 1 tablet (400 mg total) before bedtime. metoprolol tartrate (LOPRESSOR) 25 mg tablet TAKE 1 TABLET (25 MG) BY MOUTH IN THE MORNING AND AT BEDTIME 180 tablet 1 finasteride (PROSCAR) 5 mg tablet Take 1 tablet (5 mg total) by mouth in the morning. 90 tablet 3 tamsulosin (FLOMAX) 0.4 mg capsule Take 2 capsules (0.8 mg total) by mouth once daily. 180 capsule 3 No current facility-administered medications for this visit. (All medications reviewed and updated by provider since last office visit or hospitalization) Allergies: Isosorbide mononitrate, Amoxicillin, Fentanyl, and Prednisone Tobacco History: Social History Tobacco Use Smoking Status Every Day Current packs/day: 1.00 Average packs/day: 1 pack/day for 45.9 years (45.9 ttl pk-yrs) Types: Cigarettes Start date: 1978 Smokeless Tobacco Never (If patient a smoker, smoking cessation counseling offered) Social History: Social History Substance and Sexual Activity Alcohol Use Yes Comment: rarely Review of Systems: General: Negative for chills and fever. Cardiovascular: Positive for shortness of breath--being worked up by other physicians Gastrointestinal: Positive for diarrhea---only loose stools not diarrhea Physical Exam: BP 126/68 Pulse 70 Ht 188 cm (6' 2 ) Wt 130.2 kg (287 lb) BMI 36.85 kg/m General Alert., Cooperative. Not in acute distress. Non-toxic. Orientation - Oriented X3. Head and Neck Normocephalic, atraumatic with no lesions. No abnormal movements. Trachea - midline. Integumentary Normal coloration of skin. Skin Moisture - normal skin moisture. Chest and Lung Exam Quiet, even and easy respiratory effort with no use of accessory muscles. Neurologic NON-focal Assessment and Plan: Ashok was seen today for follow-up. Diagnoses and all orders for this visit: Benign prostatic hyperplasia with urinary obstruction Other orders - finasteride (PROSCAR) 5 mg tablet; Take 1 tablet (5 mg total) by mouth in the morning. - tamsulosin (FLOMAX) 0.4 mg capsule; Take 2 capsules (0.8 mg total) by mouth once daily. Problem List High Benign prostatic hyperplasia with urinary obstruction - Primary Overview Had DVT on affected leg of fracture [...] gross hematuria. Elevated AUA symptom Score 23/5. Intermittentsee weak urinary stream. Post urinary dribbling. Failed alpha- jaycob. Creatinine normal 0.96. Mostrecent PSA 0.59. Will get up-to-date PSA. Direct visualization CT scan March 2022 (-) for any stones or hydronephrosis. Plan: Renal bladder ultrasound. Cystoscopy [facility] bladder solution. CMG/flow Urine forculture. Current Assessment & Plan Decision then may today to make his medications long-term. Refilled. Follow-up: Deborah Jeronimo MD This note was created with the assistance of a speech recognition program. While intending to generate a timely document that accurately reflects the content of the visit, no guarantee can be provided that every grammatical or spelling mistake has been or will be identified or corrected. Thank you for your understanding. documented in this [facility] Miscellaneous Notes* Perioperative Nursing Note - Stephanie Robin RN - 01/21/2024 2:40 PM EST Preoperative Education Checklist- General Surgery date: 01/22/24 Surgery time: 1130 Arrival time: 1030 1. Bring a photo ID and your insurance card with you the day of surgery. You will check in at the main lobby at the registration desk near the [facility]. 2. If you have a Living Will/Durable Power of Medicare Specialist for Health Care that is not on file here, please bring a copy the day of surgery. 3. Please shower/tub bath the night before surgery or morning of. 4. NO powder, lotion, perfume/cologne, aftershave, make-up, nail lebanese, deodorant, or hair products after you have bathed. 5. Avoid ALL Aspirin and non-steroidal anti-inflammatory drugs (Ibuprofen, Advil, Aleve, Excedrin, Meloxicam, etc.) for 7 days prior to surgery OR as instructed by your surgeon. Tylenol IS ALLOWED. If you are on Ticlid, Xarelto, Eliquis, Pradaxa, Plavix, or Coumadin, please check with your prescribing doctor for instructions for when to stop them. 6. Refrain from smoking or any type of tobacco use for at least 8 hours prior to arrival for your surgery. Pre-Surgery Instructions: Medication Instructions albuterol (PROVENTIL,VENTOLIN) 2.5 mg /3 mL (0.083 %) nebulizer solution Check with prescribing doctor for instructions atorvastatin (LIPITOR) 80 mg tablet Check with prescribing doctor for instructions baclofen (LIORESAL) 10 mg tablet Check with prescribing doctor for instructions dextromethorphan-guaiFENesin (ROBITUSSIN-DM) 10-100 mg/5 mL liquid Check with prescribing doctor for instructions divalproex (DEPAKOTE) 125 mg EC tablet Check with prescribing doctor for instructions finasteride (PROSCAR) 5 mg tablet Check with prescribing doctor for instructions HYDROcodone-acetaminophen (NORCO) 5-325 mg per tablet Check with prescribing doctor for instructions lisinopril-hydroCHLOROthiazide (PRINZIDE,ZESTORETIC) 20-12.5 mg per tablet Check with prescribing doctor for instructions metoprolol tartrate (LOPRESSOR) 25 mg tablet Check with prescribing doctor for instructions tamsulosin (FLOMAX) 0.4 mg capsule Check with prescribing doctor for instructions documented in this encounterK[facility]11-[facility] Nurse Note* Perioperative Nursing Note - Stephanie Robin RN - 01/21/2024 2:40 PM EST Preoperative Education Checklist- General Surgery date: 01/22/24 Surgery time: 1130 Arrival time: 1030 1. Bring a photo ID and your insurance card with you the day of surgery. You will check in at the main lobby at the registration desk near the [facility]. 2. If you have a Living Will/Durable Power of Medicare Specialist for Health Care that is not on file here, please bring a copy the day of surgery. 3. Please shower/tub bath the night before surgery or morning of. 4. NO powder, lotion, perfume/cologne, aftershave, make-up, nail lebanese, deodorant, or hair products after you have bathed. 5. Avoid ALL Aspirin and non-steroidal anti-inflammatory drugs (Ibuprofen, Advil, Aleve, Excedrin, Meloxicam, etc.) for 7 days prior to surgery OR as instructed by your surgeon. Tylenol IS ALLOWED. If you are on Ticlid, Xarelto, Eliquis, Pradaxa, Plavix, or Coumadin, please check with your prescribing doctor for instructions for when to stop them. 6. Refrain from smoking or any type of tobacco use for at least 8 hours prior to arrival for your surgery. Pre-Surgery Instructions: Medication Instructions albuterol (PROVENTIL,VENTOLIN) 2.5 mg /3 mL (0.083 %) nebulizer solution Check with prescribing doctor for instructions atorvastatin (LIPITOR) 80 mg tablet Check with prescribing doctor for instructions baclofen (LIORESAL) 10 mg tablet Check with prescribing doctor for instructions dextromethorphan-guaiFENesin (ROBITUSSIN-DM) 10-100 mg/5 mL liquid Check with prescribing doctor for instructions divalproex (DEPAKOTE) 125 mg EC tablet Check with prescribing doctor for instructions finasteride (PROSCAR) 5 mg tablet Check with prescribing doctor for instructions HYDROcodone-acetaminophen (NORCO) 5-325 mg per tablet Check with prescribing doctor for instructions lisinopril-hydroCHLOROthiazide (PRINZIDE,ZESTORETIC) 20-12.5 mg per tablet Check with prescribing doctor for instructions metoprolol tartrate (LOPRESSOR) 25 mg tablet Check with prescribing doctor for instructions tamsulosin (FLOMAX) 0.4 mg capsule Check with prescribing doctor for instructions [facility] Miscellaneous Notes* Telephone Encounter - Colten Gordon DO - 01/21/2024 12:46 AM EST Rx sent in. Due for CV recheck. Usually sees Hunter * Telephone Encounter - Berna Díaz CMA - 01/21/2024 12:46 AM EST I called pt and he is seeing a Instructional Technology Specialist and would like to wait on making apt. documented in this encounterK[facility]11-19-[facility]24 Telephone encounter Note* Telephone Encounter - Colten Gordon DO - 01/21/2024 12:46 AM EST Rx sent in. Due for CV recheck. [facility] sees [facility] Telephone encounter Note* Telephone Encounter - Berna Díaz CMA - 01/21/2024 12:46 AM EST I called pt and he is seeing a Instructional Technology Specialist and would like to wait on making apt. [facility]11-[facility] Miscellaneous Notes* Telephone Encounter - Magda North - 01/07/2024 2:59 PM EST Faxed the request from Ryley [employer]PA requesting certified copies of [facility] records [facility] fax # [phone]. Scanned copy into Media. documented in this encounterKettering [facility]11-05-2024 Telephone encounter Note* Telephone Encounter - Magda North - 01/07/2024 2:59 PM EST Faxed the request from Ryley LPA requesting certified copies of medial records andradiology images to [employer] Mgmt Med/Rec Release fax # [phone]. Scanned copy into Media. [facility]11-04-2024 History of Present illness Narrative* Rachel Stacy MD - 01/06/2024 3:15 PM EST Last office visit with Dr. Figueredo was in August 2023. Subjective : Reports not feeling well. Has fatigue, exertional and not exertional chest discomfort and shortnessof breath. Also complains of lower extremity edema. Could not tolerate isosorbide due to severe headache. Compliant with CPAP therapy Preoperative risk assessment left hip. Surgery to be done when cardiac assessment completed Dr. Guerrero in my absence, and underwent perfusion imaging echo and Holter. BMI greater than 37 History so Far : 1. Atherosclerosis of kas[place] coronary artery of kas[place] heart PCI November 2020-codominant system diffuse coronary disease 20 to 30% in all territories 100% distal mid RCA occlusion with ELIECER 0 antegrade flow 50% mid LAD after major diagonal branch, LVEDP 10 mmHg LVEF about 55% patient underwent PCI and stenting of the distal and mid RCA 3.5 x 16 mm Synergy drug-eluting stent with 0% residual stenosis and ELIECER-3 flow ramus intermedius branch with less than20% stenosis major diagonal branch less than 30% stenosis 2. History of PTCA A durable result has been achieved with the relief of anginal symptoms 3. Mixed hyperlipidemia Review of treatment strategy demonstrates good control 4. Primary hypertension Review of treatment strategy demonstrates good control 5. Current every day smoker Counseled on smoking cessation 6. BMI 37 01/06/24 7. Echocardiogr9.am December 2023-LVEF 65% UTILIZED NORMAL CHAMBER DIMENSIONS NO SIGNIFICANT VALVULAR DISEASE NORMAL RV SYSTOLIC FUNCTION NORMAL PATTERN OF LV DIASTOLIC FILLING TRACE TRICUSPID REGURGITATION NO PERICARDIAL EFFUSION RV SYSTOLIC PRESSURE 37 MMHG 8. Lexiscan Myoview December 2023-abnormal, LVEF 51% apical dyskinesia mild apical ischemia possiblyperi-infarction no comparison study available EKGs with poor R wave progression 9. 48-hour Holter monitor December 2023 short run of atrial tachycardia no symptoms reported no atrial fibrillation no VT 10. Smoking 1 pack/day as of 01/06/2024 Objective Wt Readings from Last 3 Encounters: 01/06/24 132 kg (291 lb) 12/13/23 130 kg (286 lb) 08/28/23 125 kg (276 lb) Vitals: 01/06/24 1515 01/06/24 1557 BP: 162/80 (!) 166/92 BP Location: Right arm Right arm Patient Position: Sitting Sitting Pulse: 92 Weight: 132 kg (291 lb) Height: 1.88 m (6' 2 ) Physical Exam: Uses cane as ambulatory aid. GENERAL APPEARANCE: in no acute distress. CHEST: Symmetric and non-tender. INTEGUMENT: Skin warm and dry HEENT: No gross abnormalities identified.No pallor or scleral icterus. NECK: Supple, no JVD, no bruit. NEURO/PSHCY: Alert and oriented x3; appropriate behavior and responses and responses LUNGS: Clear to auscultation bilaterally; normal respiratory effort. HEART: Rate and rhythm regular with no evident murmur; no gallop appreciated. ABDOMEN: Soft, non tender. MUSCULOSKELETAL: No gross deformities. EXTREMITIES: Warm There is no edema noted. Meds: Current Outpatient Medications Medication Instructions amLODIPine (NORVASC) 5 mg, oral, Daily aspirin 81 mg, oral, Daily atorvastatin (LIPITOR) 80 mg, Daily baclofen (Lioresal) 10 mg tablet 3 tablets, Daily PRN divalproex (DEPAKOTE) 125 mg, Daily finasteride (PROSCAR) 5 mg, Daily RT HYDROcodone-acetaminophen (Hawthorne) 5-325 mg tablet 1 tablet, 2 times daily PRN lisinopriL-hydrochlorothiazide 20-12.5 mg tablet 1 tablet, oral, Daily magnesium oxide (MAG-OX) 400 mg, oral, 2 times daily metoprolol tartrate (LOPRESSOR) 50 mg, oral, 2 times daily nitroglycerin (NITROSTAT) 0.4 mg, sublingual, Every 5 min PRN tamsulosin (FLOMAX) 0.4 mg, Daily Allergies Allergen Reactions Isosorbide Mononitrate Headache Amoxicillin Nausea/vomiting Prednisone Palpitations LABS: Lab Results Component Value Date WBC 22.9 (H) 11/19/2020 HGB 13.5 11/19/2020 HCT 41.2 11/19/2020 PLT 333 11/19/2020 ALT 19 11/18/2020 AST 15 11/18/2020 NA 140 11/19/2020 K 3.8 11/19/2020 CL 109 (H) 11/19/2020 CREATININE 0.83 11/19/2020 BUN 20 11/19/2020 CO2 23 11/19/2020 INR 1.1 11/19/2020 Patient Active Problem List Diagnosis Date Noted Encounter to discuss test results 01/06/2024 Fatigue 01/06/2024 Medication course changed 01/06/2024 Palpitations 12/13/2023 Chest pain 12/13/2023 Sleep apnea with use of continuous positive airway pressure (CPAP) 12/13/2023 Shortness of breath 12/13/2023 Cough 12/13/2023 BMI 37.0-37.9, adult 08/28/2023 CAD (coronary atherosclerotic disease) 04/02/2023 History of PTCA 04/02/[address] elevation myocardial infarction (STEMI) 04/02/2023 Hyperlipemia 04/02/2023 Hypertension 04/02/2023 Current every day smoker 04/02/2023 Assessment: 1. Coronary artery disease involving kasaan coronary artery of kasaan heart with unstable angina pectoris 2. Encounter to discuss test results 3. Shortness of breath Follow Up In Cardiology Cardiac Catheterization - Onbase Scan Follow Up In Cardiology B-Type Natriuretic Peptide B-Type Natriuretic Peptide 4. History of PTCA Follow Up In Cardiology 5. History of ST elevation myocardial infarction (STEMI) Follow Up In Cardiology 6. Primary hypertension amLODIPine (Norvasc) 5 mg tablet 7. Other hyperlipidemia Follow Up In Cardiology 8. Palpitations Follow Up In Cardiology magnesium oxide (Mag-Ox) 400 mg (241.3 mg magnesium) tablet 9. Acute cough Follow Up In Cardiology 10. Sleep apnea with use of continuous positive airway pressure (CPAP) Follow Up In Cardiology 11. BMI 37.0-37.9, adult 12. Current every day smoker Follow Up In Cardiology 13. Fatigue, unspecified type 14. Medication course changed Patient's symptoms are concerning for crescendo angina pectoris. His evaluation today is part of preoperative cardiac risk assessment. He could not tolerate isosorbide because of headache He has known coronary artery disease and an abnormal perfusion study He has prior PCI with stent and ongoing multiple risk factors including nicotine dependence. He is best served with cardiac catheterization and possible intervention. Right radial approach as requested by patient Rationale for cardiac catheterization and possible intervention was discussed. Procedure, risks, benefits, and alternatives were discussed. Procedure was explained to patient in layman's terms ie thecatheters would be introduced under local anesthetic via the right groin or the right radial approach, and under x- ray guidance catheters would be positioned in the coronary arteries and pictures would be taken. This will be followed by opening up of blockages using balloon tipped catheters, followed by placement of stents within the arteries. Each stent is described as a metal scaffolding that keeps the artery open . Risks discussed included, but were not limited to HI, stroke, , peripheral vascular compromise, allergic reaction to dye, bleeding complications, and kidney injury. The very rare occurrence of needing emergency coronary artery bypass grafting was also discussed. When the procedure is done at in a facility that does not do coronary artery bypass grafting on site, the patient would be transferred to a facility that has bypass capability. Patient expressed understanding and agrees to the procedure.. Will add amlodipine 5 mg p.o. daily in view of elevated blood pressure and ongoing angina pectoris. Follow up : after testing Provider Attestation - Scribe documentation Scribe Attestation By signing my name below, I, Vivian Cole LPN , Lawanda attest that this documentation has been prepared under the direction and in the presence of Rachel Stacy MD. All medical record entries made by the Scribe were at my direction and personally dictated by me. Ihave reviewed the chart and agree that the record accurately reflects my personal performance of the history, physical exam, discussion and plan. documented in this [facility] Work Phone: 1(225) 774-873811-04-2024 Instructions* Patient Instructions* Vivian Lopez LPN - 01/06/2024 3:15 PM EST Please bring all medicines, vitamins, and herbal supplements with you when you come to the office. Prescriptions will not be filled unless you are compliant with your follow up appointments or have a follow up appointment scheduled as per instruction of your physician. Refills should be requested at the time of your visit. BMI was above normal measurement. Current weight: 132 kg (291 lb) Weight change since last visit (-) denotes wt loss 5 lbs Weight loss needed to achieve BMI 25: 96.7 Lbs Weight loss needed to achieve BMI 30: 57.8 Lbs Provided instructions on dietary changes Provided instructions on exercise. * Attachments The following attachments cannot be sent through Care Everywhere. * DASH Diet (Indian) documented in this [facility] Work Phone: 1(821) 965-545110-11-2024 History of Present illness Narrative* Guicho Mulligan MD - 12/13/2023 11:30 AM EDT CARDIOLOGY CONSULTATION NOTE Patient: Ashok Doss Date of : 1965 Date: 12/13/2023 Reason for Visit: Known coronary artery disease, now with unstable angina. IMPRESSION: Palpitations Chest pain Dyspnea on exertion Cough, nonproductive Edema Recent respiratory tract infection Coronary artery disease history of right coronary stent angioplasty 2020 History of prior HI 2020 Normal LV systolic function, 60 to 65% EF, echocardiogram, 12/2020 Nondiagnostic treadmill stress test, 2020 Hypertension Hyperlipidemia Obstructive sleep apnea on CPAP Degenerative joint disease Obesity, BMI 35 Family history of coronary artery disease Otherwise as per assessment below. RECOMMENDATIONS: Patient's recurrent symptoms are concerning for progressive coronary artery disease and possible congestive heart failure. With suggestive repeat cardiac testing including echocardiography, Lexiscan Myoview fusion stress test, 48-hour Holter monitoring at this time. Further recommendations following testing including possible repeat catheterization is warranted. Would suggest Imdur 30 mg daily, nitroglycerin sublingual as needed, increase Lopressor to 50 mg twice daily as tolerated. He will continue his other medications. Refills were provided. Of note patient also has planned left hip surgery in the near future and is in need of preoperativeassessment. This will be reviewed further after the above testing is back. Exercise dietary program. Hydration. [email or web address] portal use was encouraged. We will plan to see back after the above testing with Laboratory Studies and ECG as noted. Patient will follow up with their primary physician for general care. The patient knows to contact medical care earlier if need be. HPI: Ashok Doss was seen in cardiac evaluation at the Cardiology office December 13, 2023. The patients problems are listed as in the impression above. Electronic medical records reviewed. Patient is a pleasant 58-year-old hypertensive, hyperlipidemic obese gentleman with known coronary artery disease post previous myocardial infarction and right pulm has been followed by Dr. Figueredo in the past. Dr. Figueredo is retired and therefore I have been asked to see the patient regarding establishment cardiovascular care and ongoing cardiovascular care. This is our first visit. He states that he has been doing well overall. He has been limited due to his degenerative joint disease in both his knees and now his left hip. He actually has contemplating left hip surgery this coming January. He however has noted over the last month worsening chest discomfort with exertion andfluttering of his chest heart rate particularly with activity and with stairs. He has noted lower extremity edema. He has states he has been compliant with his medications. He was seen by his primarycare physician who put him on prednisone for possible respiratory tract infection. He did not have any antibiotics. He feels a little bit better. He does in addition to having chest pain and palpitations and cough shortness of breath with exertion as well as edema. He denies any other cardiovascular complaints. CPAP for his obstructive sleep apnea. Patient denies Lightheadedness, Dizziness, TIA or CVA symptoms. No CHF. No GI, or Bleeding Issues. No Recent Fever or Chills. Cardiovascular and general review of systems is otherwise negative. A 14-system review is otherwise negative, other than noted. ALLERGIES: Allergies Allergen Reactions Amoxicillin Nausea/vomiting Prednisone Palpitations MEDICATIONS: Current Outpatient Medications Medication Instructions atorvastatin (LIPITOR) 80 mg, oral, Daily baclofen (Lioresal) 10 mg tablet 3 tablets, oral, Daily PRN divalproex (DEPAKOTE) 125 mg, oral, Daily finasteride (PROSCAR) 5 mg, oral, Daily RT HYDROcodone-acetaminophen (Hawthorne) 5-325 mg tablet 1 tablet, oral, 2 times daily PRN lisinopriL-hydrochlorothiazide 20-12.5 mg tablet 1 tablet, oral, Daily metoprolol tartrate (LOPRESSOR) 25 mg, oral, 2 times daily after meals tamsulosin (FLOMAX) 0.4 mg, oral, Daily PAST MEDICAL HISTORY: As per impression above. No other significant past medical or surgical history appreciated. SOCIAL HISTORY: . 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 [id number] smoking history. Denies alcohol or illicit drug use. FAMILY HISTORY: Positive family history of congestive heart failure and CAD in his father. VITALS: Vitals: 12/13/23 1129 BP: 136/80 Pulse: 76 Wt Readings from Last 4 Encounters: 12/13/23 130 kg (286 lb) 08/28/23 125 kg (276 lb) 11/26/22 125 kg (275 lb) 10/19/21 119 kg (262 lb) PHYSICAL EXAMINATION: General: No acute distress. Vital signs as noted. Alert and oriented. Head And Neck Examination: No jugular venous distention, no carotid bruits, no mass. Carotid upstrokes preserved. Oral mucosa moist. No xanthelasma. Head and neck examination otherwise unremarkable. Lungs: Clear to auscultation and percussion. No wheezes, no rales, and no rhonchi. Chest: Excursion appeared to be normal. No chest wall tenderness on palpation. Heart: Normal S1 and S2. No S3. No S4. No rub. Grade 1/6 systolic murmur, best heard at the left sternal border. Point of maximal impulse was decreased. Abdomen: Soft. Nontender. No organomegaly. No bruits. No masses. Obese. Extremities: 1+ bipedal edema. No clubbing. No cyanosis. Pulses are strong throughout. No bruits. Musculoskeletal Exam: No ulcers, otherwise unremarkable. Neuro: Neurologically appeared grossly intact. ELECTROCARDIOGRAM: Sinus rhythm, nonspecific ST-T wave changes. Rate 76. CARDIAC TESTING: None this visit LABORATORY DATA: No recent laboratory studies available for review. PROBLEM LIST: Patient Active Problem List Diagnosis CAD (coronary atherosclerotic disease) History of PTCA History of ST elevation myocardial infarction (STEMI) Hyperlipemia Hypertension Current every day smoker BMI 35.0-35.9,adult Palpitations Chest pain Sleep apnea with use of continuous positive airway pressure (CPAP) Shortness of breath Cough Guicho Mulligan MD, [facility] / Cardiology Of Note: Dragon voice recognition dictation software was utilized partially in the preparation of this note,therefore, inaccuracies in spelling, word choice and punctuation may have occurred which were not recognized the time of signing. Patient was seen and examined with total time of visit including chart preparation, rooming, and chart completion exceeding 40 minutes. ---- documented in this encounterWadsworth-Rittman Hospital Work Phone: 1(755) 305-251510-11-2024 Instructions* Patient Instructions* Ernie Olivares LPN - 12/13/2023 11:30 AM EDT START IMDUR 30MG TAKE ONE TAB DAILY START nitroglycerin WHEN NEEDED START ASPIRIN 80MG TAKE ONE TAB DAILY INCREASE METOPROLOL TO 50MG TAKE ONE TAB TWICE DAILY Please bring any lab results from other providers / physicians to your next appointment. Please bring all medicines, vitamins, and herbal supplements with you when you come to the office. Prescriptions will not be filled unless you are compliant with your follow up appointments or have a follow up appointment scheduled as per instruction of your physician. Refills should be requested at the time of your visit. DID YOU KNOW: We have a pharmacy here in the [facility]. They can fill all prescriptions, not just cardiac medications. Prescriptions from other pharmacies can easily be transferred to the pharmacy by the pharmacist on site. pharmacies offer FREE HOME DELIVERY on medications to anywherein [place]. They can sync your medications. Typically prescriptions can be ready in 10 - 15 minutes. If pharmacy is unable to fill your prescription or if cost is more than your paying now the Pharmacist can easily transfer back to your Pharmacy of choice. Pharmacy phone # [phone]. Scribe Attestation By signing my name below, I, Ly ARNOLD , Scrolayinka attest that this documentation has been prepared under the direction and in the presence of Guicho Dennis MD. documented in this encounterWadsworth-Rittman Hospital Work Phone: [phone] 308-716010-04-2024 History of Present illness Narrative* Jenae Samuels, DO - 12/06/2023 9:30 AM EDT IM PROGRESS NOTE Patient - Ashok Doss Age - 58 y.o. - 1965 [facility] # - [id number] ASSESSMENT & PLAN 1. Acute bronchitis, unspecified organism -progressive cough and congestion over the past 10-12 days. -I suspect allergy or viral related illness -prednisone burst, accompanied by albuterol 4 times daily and symptom relief with Robitussin. - predniSONE (DELTASONE) 20 mg tablet; Take 2 tablets (40 mg total) by mouth in the morning for 5 days. Dispense: 10 tablet; Refill: 0 - dextromethorphan-guaiFENesin (ROBITUSSIN-DM) 10-100 mg/5 mL liquid; Take 5 mL by mouth every 12 (twelve) hours. Dispense: 236 mL; Refill: 0 - albuterol (PROVENTIL,VENTOLIN) 2.5 mg /3 mL (0.083 %) nebulizer solution; Inhale 3 mL (2.5 mg total) by nebulization 4 (four) times a day. Dispense: 75 mL; Refill: 1 -if not showing improvement over the next 3 days, will need to add antibiotic for secondary bacterial infection 2. Upper respiratory symptom -influenza A/B negative. COVID negative. - POCT Influenza A/Influenza B/SARS-COV-2 Veritor Subjective RESPIRATORY SYMPTOMS Symptoms started several weeks ago. Onset after return from a vacation in [place]. Each episode lasts Constant and continues. The symptoms have been progressively worsening in both severity and frequency. The symptoms have affected ability to work or normal ADLs. Symptoms have affected sleep. Upper airway symptoms include nasal congestion, rhinorrhea - clear, cough - dry, and headache. Lower airway symptoms include drainage from nose, dry cough, dyspnea on exertion, and frequent throat clearing. Previous treatments include vaporizer and fluids and rest. Tried his 's MDI once or twice. These treatments have not provided any relief. Close personal contact have not been sick. Similar symptoms-illnesses have occurred yearly in the past. Usually around the holidays A review of systems was negative except for the following: General: weight gain ENT: headaches, nasal congestion, and sore throat Respiratory: cough and wheezing. Exam BP 130/70 (BP Site: Left Arm, BP Postition: Sitting) Pulse 76 Temp 37.1 C (98.7 F) (Oral) Resp 18 Ht 188 cm (6' 2 ) Wt 130.2 kg (287 lb) SpO2 98% BMI 36.85 kg/m Physical Exam Vitals reviewed. Constitutional: General: He is not in acute distress. Appearance: He is obese. He is not toxic-appearing. HENT: Head: Normocephalic. Right Ear: Tympanic membrane, ear canal and external ear normal. Left Ear: Tympanic membrane, ear canal and external ear normal. Nose: Congestion and rhinorrhea present. Mouth/Throat: Mouth: Mucous membranes are moist. Eyes: General: No scleral icterus. Cardiovascular: Rate and Rhythm: Normal rate and regular rhythm. Heart sounds: No murmur heard. No gallop. Pulmonary: Breath sounds: Wheezing (Bilateral posterior) present. No rales. Comments: Peak flow 350 L/minute Abdominal: Palpations: Abdomen is soft. Musculoskeletal: Cervical back: No tenderness. Right lower leg: Edema (1+) present. Left lower leg: Edema (Trace at the ankle) present. Lymphadenopathy: Cervical: No cervical adenopathy. Skin: General: Skin is warm and dry. Coloration: Skin is not jaundiced. Findings: No bruising. Neurological: General: No focal deficit present. Mental Status: He is alert and oriented to person, place, and time. Motor: No weakness. Coordination: Coordination normal. Psychiatric: Mood and Affect: Mood normal. Behavior: Behavior normal. Meds Current Outpatient Medications: atorvastatin (LIPITOR) 80 mg tablet, TAKE 1 TABLET (80 MG TOTAL) BY MOUTH IN THE MORNING, Disp: 90 tablet, Rfl: 1 baclofen (LIORESAL) 10 mg tablet, Take 1 tablet (10 mg total) by mouth 3 (three) times a day., Disp: , Rfl: divalproex (DEPAKOTE) 125 mg EC tablet, take 1 tablet by mouth every day, Disp: 90 tablet, Rfl: 0 finasteride (PROSCAR) 5 mg tablet, Take 1 tablet (5 mg total) by mouth in the morning., Disp: 30 tablet, Rfl: 6 HYDROcodone-acetaminophen (NORCO) 5-325 mg per tablet, Take 1 tablet by mouth 2 (two) times a day as needed., Disp: , Rfl: lisinopril-hydroCHLOROthiazide (PRINZIDE,ZESTORETIC) 20-12.5 mg per tablet, Take 1 tablet by mouth in the morning., Disp: , Rfl: metoprolol tartrate (LOPRESSOR) 25 mg tablet, TAKE 1 TABLET (25 MG) BY MOUTH IN THE MORNING AND AT BEDTIME, Disp: 180 tablet, Rfl: 1 tamsulosin (FLOMAX) 0.4 mg capsule, Take 1 tablet daily. If no improvement and tolerate after 2 weeks go up to 2 tablets., Disp: 60 capsule, Rfl: 6 albuterol (PROVENTIL,VENTOLIN) 2.5 mg /3 mL (0.083 %) nebulizer solution, Inhale 3 mL (2.5 mg total) by nebulization 4 (four) times a day., Disp: 75 mL, Rfl: 1 dextromethorphan-guaiFENesin (ROBITUSSIN-DM) 10-100 mg/5 mL liquid, Take 5 mL by mouth every 12 (twelve) hours., Disp: 236 mL, Rfl: 0 predniSONE (DELTASONE) 20 mg tablet, Take 2 tablets (40 mg total) by mouth in the morning for 5 days., Disp: 10 tablet, Rfl: 0 Lab Results Office Visit on 12/06/2023 Component Date Value Ref Range Status External Poct Influenza A Antigen 12/06/2023 Negative Final External Poct Influenza B Antigen 12/06/2023 Negative Final External POCT SARS COV 2 Veritor 12/06/2023 Presumptive Negative Final Other Testing No results found. Jenae Samuels DO., [facility] Office: [phone] documented in this encounterK[facility]07-23-2024 Miscellaneous Notes* Telephone Encounter - Elisabeth Belem - 09/24/2023 8:51 AM EDT Called about disability paper work, he is going to check and see if we have to fill it out, ortho got one too. Will call back if we need to fill out and make appointment * Telephone Encounter - Elisabeth Patricia - 09/24/2023 8:51 AM EDT Ortho is doing paper work documented in this encounterKet[facility]07-23-2024 Telephone encounter Note* Telephone Encounter - Elisabeth Patricia - 09/24/2023 8:51 AM EDT Called about disability paper work, he is going to check and see if we have to fill it out, ortho got one too. Will call back if we need to fill out and make appointment [facility]07-23-[facility] Telephone encounter Note* Telephone Encounter - Elisabeth Patricia - 09/24/2023 8:51 AM EDT Ortho is doing paper work [facility]2024 Evaluation + Plan note* Assessment & Plan Note - Deborah Jeronimo MD - 09/09/2023 12:49 PM EDTAssociated Problem(s): Benign prostatic hyperplasia with urinary obstruction Patient may titrate up on his tamsulosin to 2 tablets if he tolerates with no great effect with 1. Per patient request just see how the medicine works. Will see him back in about 5 months. Sooner p.r.n.. [facility]2024 Miscellaneous Notes* Assessment & Plan Note - Deborah Jeronimo MD - 09/09/2023 12:49 PM EDTAssociated Problem(s): Benign prostatic hyperplasia with urinary obstruction Patient may titrate up on his tamsulosin to 2 tablets if he tolerates with no great effect with 1. Per patient request just see how the medicine works. Will see him back in about 5 months. Sooner p.r.n.. documented in this encounterKet[facility]2024 History of Present illness Narrative* Deborah Jeronimo MD - 09/09/2023 12:30 PM EDT Images from the original note were not included. [address] [place] [address] [address] [facility] [id number] Patient: Ashok Doss Date of : 1965 Encounter Date: 09/09/2023 History of Present Illness: The patient is a 58 y.o. male, an established patient, and is here for findings consistent with bladder outlet obstruction. Failed previous medical management. Full discussion with the patient his . Does have a trip coming up over sees as well. Full discussion as below.. Summary of old records: Urinalysis today: No results for input(s): EXTPOCURCO , EXTPOCURCH , EXTPOCAPP , EXTPOCURBS , EXTPOCURBIL , EXTPOCUKET , EXTPOCUSPG , EXTPOCUHGB , EXTPOCUPRO , EXTPOCUURO , EXTPOCULEU , EXTPOCUNIT , EXTPOCUWBC , EXTPOCUBLD , EXTPOCURBC , EXTPOCUCRY , EXTPOCUBAC , EXTPOCUTREP , EXTPOCUPH , EXTPOCUL EE in the last 72 hours. Last BUN and creatinine: Lab Results Component Value Date BUN 20 05/01/2023 Lab Results Component Value Date CREATININE 0.96 05/01/2023 Last PSA: Lab Results Component Value Date PSA 0.66 07/11/2023 Lab Results Component Value Date PROSTATICSP 0.59 06/08/2022 Past Medical, Family, and Social History Update: The following portions of the patient's history were reviewed and updated as appropriate: allergies, current medications, past family history, past medical history, past social history, past surgicalhistory and problem list. Past Medical History: Diagnosis Date Arthritis DVT (deep venous thrombosis) ([facility]-HCC) x2 Fractures Headache Hyperlipidemia Hypertension Myocardial infarction ([facility]-HCC) PONV (postoperative nausea and vomiting) Sleep apnea Past Surgical History: Procedure Laterality Date ANKLE SURGERY Left CARDIAC CATHETERIZATION stent CARPAL TUNNEL RELEASE Right COLONOSCOPY N/A 12/07/2022 Performed by Jenae Samuels DO at [facility] CYSTOSCOPY WITH [facility] BLADDER SOLUTION N/A 08/21/2023 Performed by Deborah Jeronimo MD at [facility] FRACTURE SURGERY Right knee, tibia KNEE SURGERY Bilateral meniscectomy-bilateral LUMBAR LAMINECTOMY RADIO FREQUENCY ABLATION 06/13/2023 BACK SINUS SURGERY Family History Problem Relation Age of Onset Scleroderma Mother in her 80's Heart failure Father at age 90 No Known Problems Paternal Grandfather at age 98 after slipping and falling and hitting head in bathroom No Known Problems Half Brother maternal Current Outpatient Medications Medication Sig Dispense Refill atorvastatin (LIPITOR) 80 mg tablet TAKE 1 TABLET (80 MG TOTAL) BY MOUTH IN THE MORNING 90 tablet 1 baclofen (LIORESAL) 10 mg tablet Take 1 tablet (10 mg total) by mouth 3 (three) times a day. divalproex (DEPAKOTE) 125 mg EC tablet take 1 tablet by mouth every day 90 tablet 0 HYDROcodone-acetaminophen (NORCO) 5-325 mg per tablet Take 1 tablet by mouth 2 (two) times a day asneeded. lisinopril-hydroCHLOROthiazide (PRINZIDE,ZESTORETIC) 20-12.5 mg per tablet Take 1 tablet by mouth in the morning. metoprolol tartrate (LOPRESSOR) 25 mg tablet TAKE 1 TABLET (25 MG) BY MOUTH IN THE MORNING AND AT BEDTIME 180 tablet 1 finasteride (PROSCAR) 5 mg tablet Take 1 tablet (5 mg total) by mouth in the morning. 30 tablet 6 tamsulosin (FLOMAX) 0.4 mg capsule Take 1 tablet daily. If no improvement and tolerate after 2 weeks go up to 2 tablets. 60 capsule 6 No current facility-administered medications for this visit. (All medications reviewed and updated by provider since last office visit or hospitalization) Allergies: Amoxicillin and Prednisone Tobacco History: Social History Tobacco Use Smoking Status Every Day Current packs/day: 1.00 Average packs/day: 1 pack/day for 45.5 years (45.5 ttl pk-yrs) Types: Cigarettes Start date: 1978 Smokeless Tobacco Never (If patient a smoker, smoking cessation counseling offered) Social History: Social History Substance and Sexual Activity Alcohol Use Yes Comment: rarely Review of Systems: General: Negative for chills and fever. Cardiovascular: Negative for chest pain and shortness of breath. Gastrointestinal: Negative for constipation, diarrhea, nausea, and vomitting. -per HPI Physical Exam: BP 146/79 Pulse 78 Ht 188 cm (6' 2 ) Wt 127 kg (280 lb) BMI 35.95 kg/m General Alert., Cooperative. Not in acute distress. Non-toxic. Orientation - Oriented X3. Head and Neck Normocephalic, atraumatic with no lesions. No abnormal movements. Trachea - midline. Integumentary Normal coloration of skin. Skin Moisture - normal skin moisture. Chest and Lung Exam Quiet, even and easy respiratory effort with no use of accessory muscles. Neurologic NON-focal Assessment and Plan: Ashok was seen today for follow-up. Diagnoses and all orders for this visit: Benign prostatic hyperplasia with urinary obstruction Other orders - finasteride (PROSCAR) 5 mg tablet; Take 1 tablet (5 mg total) by mouth in the morning. - tamsulosin (FLOMAX) 0.4 mg capsule; Take 1 tablet daily. If no improvement and tolerate after 2 weeks go up to 2 tablets. Problem List High Benign prostatic hyperplasia with urinary obstruction - Primary Overview Had DVT on affected leg of fracture 2022--not required to be on a long-term blood thinners. ==== 09/09/2023 ==== ##### findings consistent with [...] gross hematuria. Elevated AUA symptom Score 23/5. Intermittentsee weak urinary stream. Post urinary dribbling. Failed alpha- jaycob. Creatinine normal 0.96. Mostrecent PSA 0.59. Will get up-to-date PSA. Direct visualization CT scan March 2022 (-) for any stones or hydronephrosis. Plan: Renal bladder ultrasound. Cystoscopy [employer] bladder solution. CMG/flow Urine forculture. Current Assessment & Plan Patient may titrate up on his tamsulosin to 2 tablets if he tolerates with no great effect with 1. Per patient request just see how the medicine works. Will see him back in about 5 months. Sooner p.r.n.. Follow-up: Return clinic in about 5 months. Cancel the patient's surgery setup in 2 weeks. I will send [facility] message. Cancel his preop testing as well Deborah Jeronimo MD Chronic urologic condition that is not to the patient's satisfaction (despite previous treatments) and the patient wishes to have improvement---no great long- term benefit with [facility] solution Prescription drug management performed during today's office visit This note was created with the assistance of a speech recognition program. While intending to generate a timely document that accurately reflects the content of the visit, no guarantee can be provided that every grammatical or spelling mistake has been or will be identified or corrected. Thank you for your understanding. documented in this encounterK[facility]06-26-2024 History of Present illness Narrative* Leonid Figueredo MD - 08/28/2023 2:00 PM EDT Subjective Ashok Doss is a 58 y.o. male Chief Complaint Follow-up HPI Patient returns in follow-up of problems as noted. In the interim he is done well. He has none of the anginal symptoms that preceded his PTCA. Control of lipids and blood pressure is reviewed and felt to be adequate and appropriate. He continues to smoke and he was counseled in this regard. We alsoadvocated diet exercise and weight loss. Vitals: 08/28/23 1406 BP: 144/68 BP Location: Left arm Patient Position: Sitting Pulse: 80 Weight: 125 kg (276 lb) Height: 1.88 m (6' 2 ) Objective Physical Exam Constitutional: Appearance: Normal appearance. HENT: Nose: Nose normal. Neck: Vascular: No carotid bruit. Cardiovascular: Rate and Rhythm: Normal rate. Pulses: Normal pulses. Heart sounds: Normal heart sounds. Pulmonary: Effort: Pulmonary effort is normal. Abdominal: General: Bowel sounds are normal. Palpations: Abdomen is soft. Musculoskeletal: General: Normal range of motion. Cervical back: Normal range of motion. Right lower leg: No edema. Left lower leg: No edema. Skin: General: Skin is warm and dry. Neurological: General: No focal deficit present. Mental Status: He is alert. Psychiatric: Mood and Affect: Mood normal. Behavior: Behavior normal. Thought Content: Thought content normal. Judgment: Judgment normal. Allergies Amoxicillin and Prednisone Current Medications Current Outpatient Medications: atorvastatin (Lipitor) 80 mg tablet, Take 1 tablet (80 mg) by mouth once daily., Disp: , Rfl: baclofen (Lioresal) 10 mg tablet, Take 3 tablets (30 mg) by mouth once daily as needed for muscle spasms., Disp: , Rfl: divalproex (Depakote) 125 mg EC tablet, Take 1 tablet (125 mg) by mouth once daily., Disp: , Rfl: HYDROcodone-acetaminophen ([place]) 5-325 mg tablet, Take 1 tablet by mouth 2 times a day as needed.,Disp: , Rfl: lisinopriL-hydrochlorothiazide 20-12.5 mg tablet, TAKE 1 TABLET BY MOUTH EVERY DAY, Disp: 90 tablet, Rfl: 3 metoprolol tartrate (Lopressor) 25 mg tablet, Take 1 tablet (25 mg) by mouth after breakfast and after the evening meal., Disp: , Rfl: Assessment/Plan 1. Atherosclerosis of [place] coronary artery of [place] heart without angina pectoris No symptoms since PCI. Stable. 2. History of PTCA A durable result has been achieved with the relief of anginal symptoms 3. Mixed hyperlipidemia Review of treatment strategy demonstrates good control 4. Primary hypertension Review of treatment strategy demonstrates good control 5. Current every day smoker Counseled on smoking cessation 6. BMI 35.0-35.9,adult Diet was advocated Scribe Attestation By signing my name below, Maggie Fleming LPN , Scribe attest that this documentation has been prepared under the direction and in the presence of Sacha Figueredo MD. Provider Attestation - Scribe documentation All medical record entries made by the Scribe were at my direction and personally dictated by me. Ihave reviewed the chart and agree that the record accurately reflects my personal performance of the history, physical exam, discussion and plan. documented in this encounterWadsworth-[facility] Work Phone: [phone]) 223-426606-26-2024 Instructions* Patient Instructions* Susan Vazquez CMA - 08/28/2023 2:00 PM EDT Please bring all medicines, vitamins, and herbal supplements with you when you come to the office. Prescriptions will not be filled unless you are compliant with your follow up appointments or have a follow up appointment scheduled as per instruction of your physician. Refills should be requested at the time of your visit. documented in this encounterWadsworth-Rittman Hospital Work Phone: 1(286) 273-513306-19-2024 Miscellaneous Notes* Telephone Encounter - Deborah Jeronimo MD - 08/21/2023 9:00 AM EDT Radha: Have the patient follow up in the [place] office in the next few weeks or so Azalea: Please find time for the patient have a cystoscopy bipolar TURP. General anesthesia. [facility]. Overnight stay. Patient does have a trip overseas to [place] November 10 or so. Pleasetry to get this procedure done at least 4 weeks prior. documented in this encounterKing[facility] [id number] Telephone encounter Note* Telephone Encounter - Deborah Jeronimo MD - 08/21/2023 9:00 AM EDT Radha: Have the patient follow up in the [place] office in the next few weeks or so Azalea: Please find time for the patient have a cystoscopy bipolar TURP. General anesthesia. [facility]. Overnight stay. Patient does have a trip overseas to [place] November 10 or so. Pleasetry to get this procedure done at least 4 weeks prior. [facility] [id number] Nurse Note* Perioperative Nursing Note - Ivonne Penaloza RN - 08/20/2023 10:10 AM EDT Preoperative Education Checklist- General Surgery date: 08/21/23 Surgery time: 830a Arrival time: 730a 1. Bring a photo ID and your insurance card with you the day of surgery. You will check in at the main lobby of the [facility]- registration desk is straight ahead as soon as you walk in. Tell them you are here for surgery. 2. If you have a Living Will/Durable Power of Medicare Specialist for Health Care that is not on file here, please bring a copy the day of surgery. 3. Please shower/bathe the night before surgery with the provided soap or wipes. Do not shower the morning of surgery- you will do use wipes when you arrive here at the hospital before getting into your surgical gown. Do not shave the area of your procedure for 2 days prior to your surgery. 4. NO powder, lotion, perfume/cologne, aftershave, make-up, deodorant, or hair products after you have bathed. 5. NO nail lebanese/acrylic on at least one finger. If you are having a hand, wrist or foot surgery then all nail lebanese and artificial/acrylic nails must be removed from that hand or foot. 6. Avoid ALL Aspirin and non-steroidal anti-inflammatory drugs and certain vitamins (Ibuprofen, Advil, Aleve, Excedrin, Meloxicam, Celebrex, fish/krill oil, etc.) for 7 days prior to surgery as instructed by your surgeon and/or your prescribing doctor. Tylenol IS ALLOWED. If you are on Ticlid, Xarelto, Eliquis, Pradaxa, Plavix or Coumadin, please check with your prescribing doctor for instructions for when to stop them. 7. If you use an inhaler, continue to use it routinely. 8. Nothing to eat or drink (not even water, gum, mints, or hard candy!) AFTER midnight prior to your surgery. 9. Take only medications that you are instructed to on the morning of surgery with a TINY SIP OF WATER. 10. Choose a responsible adult that will be able to drive you home when you are discharged from your hospital stay for your surgery and can stay with you in your home for 24 hours after your procedure. You must NOT drive any vehicle or operate any machinery for 24 hours after surgery. 11. When you dress for your appointment, please wear loose fitting clothing that is appropriate to accommodate your surgical area procedure. BRING WITH YOU ANY DEVICES YOU MAY NEED: ESTEBAN hose, ice machine, sling/swath, brace or special shoe, oversized zip-up or button up shirt, CPAP machine if staying overnight. 12. Do NOT wear jewelry, watches, or any piercings or metal for surgery- leave these valuables and money at home. 13. Do NOT wear contact lenses for surgery- glasses are okay if needed. 14. The anesthesiologist will talk with you the day of surgery and will ask you to sign a Consent Form. 15. Refrain from smoking or any type of tobacco use for at least 8 hours and marijuana for 24 hoursprior to arrival for your surgery. 16. If a GREEN BLOOD band is given to you, please bring it with you for the day of surgery. 17. Notify your surgeon if you develop any illness before your surgery. 18. If you are staying overnight, please DO NOT BRING your home medications with you. 19. If you have any questions prior to surgery, please call the Preadmission Testing office at [phone], Mon.-Fri. 7 a.m.-3 p.m. Leave a voicemail if needed. Pre-Surgery Instructions: Medication Instructions atorvastatin (LIPITOR) 80 mg tablet Stop taking 0 days prior to procedure baclofen (LIORESAL) 10 mg tablet Stop taking 0 days prior to procedure divalproex (DEPAKOTE) 125 mg EC tablet Take morning of procedure HYDROcodone-acetaminophen (NORCO) 5-325 mg per tablet Stop taking 0 days prior to procedure lisinopril-hydroCHLOROthiazide (PRINZIDE,ZESTORETIC) 20-12.5 mg per tablet Take morning of procedure metoprolol tartrate (LOPRESSOR) 25 mg tablet Take morning of procedure nicotine (NICODERM CQ) 21 mg/24 hr Stop taking 0 days prior to procedure [facility]06-18-2024 Miscellaneous Notes* Perioperative Nursing Note - Ivonne Penaloza RN - 08/20/2023 10:10 AM EDT Preoperative Education Checklist- General Surgery date: 08/21/23 Surgery time: 830a Arrival time: 730a 1. Bring a photo ID and your insurance card with you the day of surgery. You will check in at the main lobby of the [facility]- registration desk is straight ahead as soon as you walk in. Tell them you are here for surgery. 2. If you have a Living Will/Durable Power of Medicare Specialist for Health Care that is not on file here, please bring a copy the day of surgery. 3. Please shower/bathe the night before surgery with the provided soap or wipes. Do not shower the morning of surgery- you will do use wipes when you arrive here at the hospital before getting into your surgical gown. Do not shave the area of your procedure for 2 days prior to your surgery. 4. NO powder, lotion, perfume/cologne, aftershave, make-up, deodorant, or hair products after you have bathed. 5. NO nail lebanese/acrylic on at least one finger. If you are having a hand, wrist or foot surgery then all nail lebanese and artificial/acrylic nails must be removed from that hand or foot. 6. Avoid ALL Aspirin and non-steroidal anti-inflammatory drugs and certain vitamins (Ibuprofen, Advil, Aleve, Excedrin, Meloxicam, Celebrex, fish/krill oil, etc.) for 7 days prior to surgery as instructed by your surgeon and/or your prescribing doctor. Tylenol IS ALLOWED. If you are on Ticlid, Xarelto, Eliquis, Pradaxa, Plavix or Coumadin, please check with your prescribing doctor for instructions for when to stop them. 7. If you use an inhaler, continue to use it routinely. 8. Nothing to eat or drink (not even water, gum, mints, or hard candy!) AFTER midnight prior to your surgery. 9. Take only medications that you are instructed to on the morning of surgery with a TINY SIP OF WATER. 10. Choose a responsible adult that will be able to drive you home when you are discharged from your hospital stay for your surgery and can stay with you in your home for 24 hours after your procedure. You must NOT drive any vehicle or operate any machinery for 24 hours after surgery. 11. When you dress for your appointment, please wear loose fitting clothing that is appropriate to accommodate your surgical area procedure. BRING WITH YOU ANY DEVICES YOU MAY NEED: ESTEBAN hose, ice machine, sling/swath, brace or special shoe, oversized zip-up or button up shirt, CPAP machine if staying overnight. 12. Do NOT wear jewelry, watches, or any piercings or metal for surgery- leave these valuables and money at home. 13. Do NOT wear contact lenses for surgery- glasses are okay if needed. 14. The anesthesiologist will talk with you the day of surgery and will ask you to sign a Consent Form. 15. Refrain from smoking or any type of tobacco use for at least 8 hours and marijuana for 24 hoursprior to arrival for your surgery. 16. If a GREEN BLOOD band is given to you, please bring it with you for the day of surgery. 17. Notify your surgeon if you develop any illness before your surgery. 18. If you are staying overnight, please DO NOT BRING your home medications with you. 19. If you have any questions prior to surgery, please call the Preadmission Testing office at [phone], Mon.-Fri. 7 a.m.-3 p.m. Leave a voicemail if needed. Pre-Surgery Instructions: Medication Instructions atorvastatin (LIPITOR) 80 mg tablet Stop taking 0 days prior to procedure baclofen (LIORESAL) 10 mg tablet Stop taking 0 days prior to procedure divalproex (DEPAKOTE) 125 mg EC tablet Take morning of procedure HYDROcodone-acetaminophen (NORCO) 5-325 mg per tablet Stop taking 0 days prior to procedure lisinopril-hydroCHLOROthiazide (PRINZIDE,ZESTORETIC) 20-12.5 mg per tablet Take morning of procedure metoprolol tartrate (LOPRESSOR) 25 mg tablet Take morning of procedure nicotine (NICODERM CQ) 21 mg/24 hr Stop taking 0 days prior to procedure documented in [facility] encounterK[facility]06[facility]24 Miscellaneous Notes* Telephone Encounter - Shlomo Huber CMA - 08/13/2023 10:19 AM EDT Patient called in stating he had to cancel his cysto because they stated he would need to pay 650 up front and he can't afford that He said he has several other test is that enough be able to treat him * Telephone Encounter - Deborah Jeronimo MD - 08/13/2023 10:19 AM EDT Because the patient has already failed medical management he needs the cystoscopy in order to evaluate the anatomy to then really determine what we can do to help him. So the cystoscopy is integral to the development of his treatment plan. * Telephone Encounter - Shlomo Huber CMA - 08/13/2023 10:19 AM EDT Patient was notified documented in this encounterK[facility]06-11-2024 Telephone encounter Note* Telephone Encounter - Shlomo Huber CMA - 08/13/2023 10:19 AM EDT Patient called in stating he had to cancel his cysto because they stated he would need to pay 650 up front and he can't afford that He said he has several other test is that enough be able to treat him [facility] Telephone encounter Note* Telephone Encounter - Deborah Jeronimo MD - 08/13/2023 10:19 AM EDT Because the patient has already failed medical management he needs the cystoscopy in order to evaluate the anatomy to then really determine what we can do to help him. So the cystoscopy is integral to the development of his treatment plan. [facility] Telephone encounter Note* Telephone Encounter - Shlomo Huber CMA - 08/13/2023 10:19 AM EDT Patient was notified [facility] History of Present illness Narrative* Magda Cruz APRN-MANPREET - 08/05/2023 3:00 PM EDT Subjective Patient ID: Ashok Doss is a 58 y.o. male. Fatigue, eyes burning, sore throat, sinuses burning, lots of drainage, ear pain This has all been going on for a little more than a week No known fever but chills and sweats Appetite normal, no nausea or vomiting but diarrhea Lots of body aches Minimal cough He also has a lesion under his chin for the past two months that he keeps knicking when he shaves that just will not heal up, he wonders what it is The following portions of the patient's history were reviewed and updated as appropriate: allergies, current medications, past family history, past medical history, past social history, past surgicalhistory, problem list, and medication reconciliation was completed including current medication andpost discharge medication. Review of Systems Constitutional: Positive for chills and fatigue. HENT: Positive for congestion, ear pain, postnasal drip, rhinorrhea, sinus pressure and sore throat. Respiratory: Positive for cough. Gastrointestinal: Positive for diarrhea. Endocrine: Negative. Genitourinary: Negative. Musculoskeletal: Positive for arthralgias and myalgias. Skin: Positive for color change. Allergic/Immunologic: Negative. Neurological: Negative. Psychiatric/Behavioral: Positive for dysphoric mood. Objective Physical Exam Vitals and nursing note reviewed. Constitutional: General: He is not in acute distress. HENT: Head: Normocephalic. Right Ear: Tympanic membrane and external ear normal. Ears: Comments: Left tm cloudy, opaque with streaks of erythema Nose: Congestion and rhinorrhea present. Comments: Nasal turbinates are erythematous and swollen Eyes: Conjunctiva/sclera: Conjunctivae normal. Neck: Vascular: No carotid bruit. Cardiovascular: Rate and Rhythm: Normal rate and regular rhythm. Pulses: Normal pulses. Heart sounds: Normal heart sounds. No murmur heard. Pulmonary: Effort: Pulmonary effort is normal. Breath sounds: Normal breath sounds. Musculoskeletal: Right lower leg: No edema. Left lower leg: No edema. Lymphadenopathy: Cervical: No cervical adenopathy. Skin: General: Skin is warm and dry. Capillary Refill: Capillary refill takes less than 2 seconds. Findings: Lesion (6-7 mm raised, irregular lesion with a textured surface and a somewhat smooth base on the upper aspect right side of neck) present. Neurological: Mental Status: He is alert and oriented to person, place, and time. Psychiatric: Thought Content: Thought content normal. Judgment: Judgment normal. Assessment/Plan Ashok was seen today for uri. Diagnoses and all orders for this visit: Acute non-recurrent frontal sinusitis Pigmented skin lesion of uncertain behavior of neck - Ambulatory referral to Dermatology (Non-[facility]); Future Other orders - amoxicillin-pot clavulanate (AUGMENTIN) 875-125 mg per tablet; Take 1 tablet by mouth in the morning and 1 tablet before bedtime. Do all this for 7 days. - predniSONE (DELTASONE) 20 mg tablet; Take 1 tablet (20 mg total) by mouth in the morning for 7 days. May cotinue otc flonase and will add augmentin and prednisone Fluids and rest Unsure what the lesion is on the under surface of his chin It may be a small cyst or another type of lesion, it is in a difficult place to examine, will send him to dermatology for further evaluation and management ADALBERTO Farley 08/05/23 [id number] ADALBERTO Farley 08/05/23 165 documented in this encounterK[facility]05-24-2024 History of Present illness Narrative* Vanesa Ramos RN - 07/26/2023 1:00 PM EDT Patient presents for Urodynamic procedure for BPH w/ LUTS/urinary obstruction. Initial flow study not performed as patient voided just prior to study. Patch electrodes placed on either side of rectumand rectal pressure catheter inserted. Glans meatus was prepped with Hibiclens, lidocaine 2% urojetinstilled in urethra, 12F olive tip urethral catheter inserted into bladder and bladder drained. Post void residual documented as 50 ml and catheter removed. Urodynamics pressure catheter inserted into the bladder and secured. Study performed using sterile water. Urodynamic pressure catheter and patches removed. Patient tolerated procedure well and without difficulty. Patient educated that they may have some burning and irritation post procedure upon initial urination and to avoid caffienated and carbonated beverages. Ordering Physician: Douglas Jeronimo M.D. Supervising Physician: Chema Garcia M.D. documented in this encounterK[facility]05-02-2024 Miscellaneous Notes* Telephone Encounter - Deborah Jeronimo MD - 07/04/2023 1:28 PM EDT Cystoscopy local [facility] bladder solution. [facility]. Diagnosis lower urinary tract symptoms. documented in this encounterKet[facility]05-02-2024 Telephone encounter Note* Telephone Encounter - Deborah Jeronimo MD - 07/04/2023 1:28 PM EDT Cystoscopy local [facility] bladder solution. [facility]. Diagnosis lower urinary tract symptoms. [facility] History of Present illness Narrative* Deborah Jeronimo MD - 07/04/2023 1:00 PM EDT Images from the original note were not included. [address] [facility] [id number] Patient: Ashok Doss Date of : 1965 Encounter Date: 07/04/2023 History of Present Illness: The patient is a 57 y.o. male, a new patient consultation lower urinary tract symptoms. Worsening over time urge urge incontinence. No dysuria no gross hematuria. Failed alpha-jaycob in the past.. Summary of old records: Urinalysis today: No results for input(s): EXTPOCURCO , EXTPOCURCH , EXTPOCAPP , EXTPOCURBS , EXTPOCURBIL , EXTPOCUKET , EXTPOCUSPG , EXTPOCUHGB , EXTPOCUPRO , EXTPOCUURO , EXTPOCULEU , EXTPOCUNIT , EXTPOCUWBC , EXTPOCUBLD , EXTPOCURBC , EXTPOCUCRY , EXTPOCUBAC , EXTPOCUTREP , EXTPOCUPH , EXTPOCUL EE in the last 72 hours. Last BUN and creatinine: Lab Results Component Value Date BUN 20 05/01/2023 Lab Results Component Value Date CREATININE 0.96 05/01/2023 Last PSA: No results found for: PSA Lab Results Component Value Date PROSTATICSP 0.59 06/08/2022 Past Medical, Family, and Social History Update: The following portions of the patient's history were reviewed and updated as appropriate: allergies, current medications, past family history, past medical history, past social history, past surgicalhistory and problem list. Past Medical History: Diagnosis Date DVT (deep venous thrombosis) ([facility]) x2 Headache Hyperlipidemia Myocardial infarction ([facility]) Past Surgical History: Procedure Laterality Date ANKLE SURGERY Left CARDIAC CATHETERIZATION CARPAL TUNNEL RELEASE Right COLONOSCOPY N/A 12/07/2022 Performed by Jenae Samuels DO at [facility] FRACTURE SURGERY Right knee, tibia KNEE SURGERY LUMBAR LAMINECTOMY RADIO FREQUENCY ABLATION 06/13/2023 BACK SINUS SURGERY Family History Problem Relation Age of Onset Scleroderma Mother in her 80's Heart failure Father at age 90 No Known Problems Paternal Grandfather at age 98 after slipping and falling and hitting head in bathroom No Known Problems Half Brother maternal Current Outpatient Medications Medication Sig Dispense Refill atorvastatin (LIPITOR) 80 mg tablet Take 1 tablet (80 mg total) by mouth in the morning. 90 tablet 1 baclofen (LIORESAL) 10 mg tablet Take 1 tablet (10 mg total) by mouth 3 (three) times a day. divalproex (DEPAKOTE) 125 mg EC tablet take 1 tablet by mouth every day 90 tablet 0 HYDROcodone-acetaminophen (NORCO) 5-325 mg per tablet Take 1 tablet by mouth 2 (two) times a day asneeded. lisinopril-hydroCHLOROthiazide (PRINZIDE,ZESTORETIC) 20-12.5 mg per tablet Take [...] History Tobacco Use Smoking Status Every Day Current packs/day: 1.00 Average packs/day: 1 pack/day for 45.3 years (45.3 ttl pk-yrs) Types: Cigarettes Start date: 1978 Smokeless Tobacco Never (If patient a smoker, smoking cessation counseling offered) Social History: Social History Substance and Sexual Activity Alcohol Use Yes Comment: rarely Review of Systems: Constitutional: Normal activity and energy. Patient denies change in appetite, weight loss or gain,malaise (depression), chills, fever, or diaphoresis (sweating). Eyes: Patient denies vision changes or diplopia (double vision). Ears, Nose, Nose and Throat: Patient denies tinnitus (ringing in ears), hearing loss, epistaxis (nose bleed), hoarseness, and dysphagia (hard to swallow). Respiratory: Dyspnea (shortness of breath), Cough, and Wheezing Cardiovascular: Shortness of breath Gastrointestinal: Patient denies abdominal pain, nausea, vomiting, bloating, diarrhea (chronic), constipation (chronic), melena (black stool), hematochezia (blood in stool). Musculoskeletal: Joint pain/stiffness, Weakness, Swelling, and Backache Neurologic: Weakness Integument: Patient denies rashes and non-healing lesions. Psychiatric: Patient denies increased nervousness, mood changes, or depression. Endocrine: Excessive urination Blood Disorders: Patient denies anemia, easy bruising, and easy bleeding. Physical Exam: BP 158/80 Pulse 73 Ht 180.3 cm (5' 11 ) Wt 126.4 kg (278 lb 9.6 oz) BMI 38.86 kg/m General Alert., Cooperative. Not in acute distress. Non-toxic. Orientation - Oriented X3. Head and Neck Normocephalic, atraumatic with no lesions. No abnormal movements. Trachea - midline. Integumentary Normal coloration of skin. Skin Moisture - normal skin moisture. Chest and Lung Exam Quiet, even and easy respiratory effort with no use of accessory muscles. Neurologic NON-focal Digital rectal exam: Benign feeling prostate. Borders are well demarcated. No nodules noted. Normal phallus, normal testes, no masses. Assessment and Plan: Ashok was seen today for new patient. Diagnoses and all orders for this visit: Benign prostatic hyperplasia with urinary obstruction - Prostatic specific antigen, diagnostic; Future - Ultrasound retroperitoneal complete; Future - Cystometrogram; Future Enlarged prostate - Ambulatory referral to Urology - POCT Urinalysis Auto, W/O Microscopy Problem List High Benign prostatic hyperplasia with urinary obstruction - Primary Overview ==== 07/04/2023 ==== 1 ppd x 44 yrs no gross hematuria. Elevated AUA symptom Score 23/5. Intermittentsee weak urinary stream. Post urinary dribbling. Failed alpha- jaycob. Creatinine normal 0.96. Mostrecent PSA 0.59. Will get up-to-date PSA. Direct visualization CT scan March 2022 (-) for any stones or hydronephrosis. Plan: Renal bladder ultrasound. Cystoscopy [facility] bladder solution. CMG/flow Urine forculture. Relevant Orders Prostatic specific antigen, diagnostic Ultrasound retroperitoneal complete Cystometrogram Follow-up: Deborah Jeronimo MD Undiagnosed new problem with uncertain prognosis Equal to or greater than 3 distinct studies were ordered and or reviewed during this encounter Independent visualization of tracing, image or specimen was made: CT scan This note was created with the assistance of a speech recognition program. While intending to generate a timely document that accurately reflects the content of the visit, no guarantee can be provided that every grammatical or spelling mistake has been or will be identified or corrected. Thank you for your understanding. documented in this encounterK[facility]02-28-2024 History of Present illness Narrative* Hunter Robins, BREAKFAST SUPERVISOR-[employer]ATED [employer]ALL - 05/01/2023 10:30 AM EST Images from the original note were not included. [address] [place] [address] Patient: Ashok Doss Date of : 1965 [...] and he feels like he is gaining weightbecause his appetite has increased. He sometimes uses a cane for his chronic left hip pain from a pr evious workman's comp injury that he will eventually need surgery for. Unfortunately workman's compis denying paying for surgery until surgeon changes his wording to a more severe type of pain and uses different working on the pressing need for surgery according to patient. Patient would also liketo get a parking placard like his has in case he is driving alone. Patient is requesting to see Urology due to an incidental finding of enlarged prostate on March of last year. He is also having to get up and void 1-2 times a night which bothers him. His last PSA drawn in this office was normal. Patient will like to see [facility]. Patient also has a new skin [...] past medical history, past social history, past surgicalhistory and problem list. Past Medical History: Diagnosis Date DVT (deep venous thrombosis) ([facility] x2 Headache Hyperlipidemia Myocardial infarction ([facility]) Past Surgical History: Procedure Laterality Date ANKLE SURGERY Left CARDIAC CATHETERIZATION CARPAL TUNNEL RELEASE Right COLONOSCOPY N/A 12/07/2022 Performed by Jenae Samuels DO at [facility] FRACTURE SURGERY Right knee, tibia KNEE [...] by mouth 2 (two) times a day asneeded. lisinopril-hydroCHLOROthiazide (PRINZIDE,ZESTORETIC) 20-12.5 mg per tablet Take [...] BMI 38.49 kg/m Physical Exam Vitals reviewed. 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 Constitutional: Appearance: Normal [...] without stopping to rest. This was given for2 years as he will eventually need surgery. Follow-up in 6 months for wellness visit. YAO KEEN APRN-CNP 05/02/232050 documented in this encounterKet[facility]01-29-2024 Miscellaneous Notes* Telephone Encounter - YAO Keen - 04/01/2023 12:18 AM EST Due for either his well visit or CV - please set up documented in this encounterKet[facility]01-29-2024 Telephone encounter Note* Telephone Encounter - YAO Keen - 04/01/2023 12:18 AM EST Due for either his well visit or CV - please set up [facility] NoteCONSULTATION CONSULTATION DATE: 07/31/2022 CHIEF COMPLAINT: Includes severe [...] mg pills, two pills daily p.r.n. and Hawthorne 5 mg b.i.d. p.r.n. As part of providing excellent, safe, comprehensive care, the following was completed at our patient's visit: 1. A medication reconciliation and review to ensure accurate knowledge of current/active medications, including asking our patients to inform us about any [id number] medications or herbal remedies/nutritional supplements/alternative remedies. 2. [...] and treatment options with their primary care provider.[facility] [id number] Note CONSULTATION CONSULTATION DATE: 06/14/2022 TO: Dr. [...] sooner if needed. We did refill his Hawthorne. He takes 5 mg pills, one pill b.i.d. He did report this medicine does improve his quality of life, level of function and sleep pattern. As part of providing excellent, safe, comprehensive care, the following was completed at our patient's visit: 1. A medication reconciliation and review to ensure accurate knowledge of current/active medications, including asking our patients to inform us about any gajy-[id number] medications or herbal remedies/nutritional supplements/alternative remedies. 2. [...] and treatment options with their primary care provider.[facility] [id number] NoteSubjective Patient ID: Ashok Doss is a 56 y.o. male who presents as a new patient referral from [facility] in [place] for acute deep right calf/soleal muscle vein [...] the past 36 hour(s)). No follow-ups on file.[facility]01[facility]12[facility]2023 Note CONSULTATION CONSULTATION DATE: 03/15/2022 HISTORY OF [...] with his leg elevated. Current medications include Hawthorne 5/325 b.i.d. and tizanidine p.r.n. Patient's REVIEW [...] postoperatively Orthopedics plans on keeping him on Hawthorne 5/325 b.i.d. I do worry that his post-op pain will not be adequately relieved with Hawthorne, and I did encourage the patient to talk with his Orthopedics' office to discuss this. We will see the patient in the office in three months' time unless otherwise indicated.[facility] [id number] NoteCONSULTATION CONSULTATION DATE: 01/16/2022 CHIEF COMPLAINT: Low back [...] recently came off. The patient currently takes Hawthorne 5/325 daily, tizanidine 4 mg q.h.s. Activities aggravate the patient's pain. The patient reports standing too long, walking too long, ADLs aggravate the pain. Heat mitigates the patient's pain. Pushing, pulling, lifting aggravate the pain. Laying down mitigates the pain. The patient takes Hawthorne 5/325 one tablet p.o. daily. He finds [...] left foot. PLAN: We will increase the Hawthorne to 5/325 b.i.d. The patient will also start aquatic program. We will schedule the patient for a rhizotomy, radiofrequency ablation of the dorsal median rami at the level of L2, 3 and L4, 5; given that the patient has had successful medial branch blocks on two separate occasions. CC: Elisabeth Galvan [facility]2022 NoteCONSULTATION CONSULTATION DATE: 12/28/2021 This is a pleasant [...] increased stiffness in his back. Medications include Hawthorne 5/325 q. day p.r.n. and Tizanidine 4 [...] and be followed up in the clinic thereafter.[facility] [id number] NoteCONSULTATION CONSULTATION DATE: 10/26/2021 HISTORY OF PRESENT ILLNESS: [...] discontinued. He has seen Neurosurgery at the [facility] and they would like to do [...] discontinue Tylenol #3 and start him on Hawthorne 5/325 daily p.r.n. Vitamin importance and nutrition were discussed as well. Patient agrees to move forward with this plan and be followed up in the clinic post his #1 procedure.[facility] [id number] Miscellaneous Notes* Telephone Encounter - Charbel Hill RN - 07/04/2021 11:34 AM EDT Neuro SPINE CARE COORDINATION QUICK NOTE Called patient to discuss scheduling for surgery. States he is not ready to schedule but will call back when he is. Also advised it best for recoveryto work on quitting smoking. documented in this encounterOhio [facility]04-[facility]-2022 NoteHNO ID: [id number] Author: Megan Interiano MD Service: ? 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 MAX 3 TABS IN 15 MIN. CALL [...] increased pain and issues.) 16 (A lower scoreindicates increased pain and issues.) PROMIS Score Percentiles [...] information obtained and documented by the physician surveyor's assistant. I examined the patient and evaluated all available films and pertinent documents. We discussed the case and I agree withthe plans as outlined in this note. As [...] well. 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 At this [...] for surgery and XR Cerv flex/ext to assessfor anterolisthesis. Patient expressed understanding. They were counseled on perioperative routine and surgical plan, and all of their questions were addressed to their understanding prior to electing for surgery. I answered all the patient's questions in detail and addressed their concerns; patient showed clear underst anding prior to electing for surgery. I also [...] With this in mind it is reasonable toproceed with: C4-T2 laminectomy and fusion The risks [...] of myelopathy in detail. We discussed that haltingsymptoms is more predictable than improving symptoms here, [...] wound complications in the setting of posterior cervicalsurgery, we discussed long-term and/or permanent pain especially interscapular pain as related to posterior cervical surgery. We had a very lengthy discussion regarding these risks, positives and breaks were taken for the patient to absorb the information as well as to voiced their understanding ofthe information. The patient demonstrated excellent understanding of [...] Past Histories independently gathered by the clinical clinical support manager and the remaining scribed note accurately describes my personal service to the patient. Staff note: 1. PCSM, plan for C4-T2 fusion and decompression, RBAEO reviewed in comprehensive detail, all questions answered to stated satisfaction Megan Interiano MD [facility] NoteHNO ID: [id number] Author: Ashia Bermeo APRN.[employer]ALL Service: ? Author Type: Nurse Practitioner Type: [...] every day PHQ-9 Levels: (more content not included)...[facility]02-11-2022 NoteHNO ID: [id number] Author: Sonja Moser PA-C Service: ? Author Type: Physician Brick Loader Type: Progress Notes Filed: 04/14/2021 3:29 PM Note Text: Per Triage: Ashok Doss is a 55 year old male that requests evaluation of spine. Per review, they have symptoms of back pain, neck pain, weakness, tingling in legs. Prior spine surgery: Several years ago (20) at a [facility] CMT: Muscle relaxer Studies (Reports unless [...] sure patient imaging is available for review. [facility] NoteHNO ID: [id number] Author: Macario Garcia Service: ? Author Type: ? Type: Progress Notes Filed: 04/14/2021 3:29 PM Note Text: Patient name: Ashok Doss Are you being referred by a Center for Spine Health Provider or Pain Management Provider at [facility]? No If answer is YES [...] where the MRI/CT/myelogram was completed: [facility] Address: [address] [place] [address] MRI/CT/myelogram viewable in Epic: No If not, please provide [phone] to fax in imaging reports for review. [...] the time of the call Additional Comments [phone] [facility]09-19-2021 NoteSend Summary: Discharge Summary Providers: Provider RoleProvider Name PrimaryRequired, No Pcp ConsultingJosé Miguel Posey ConsultingRachel Stacy ReferringRequired, No Pcp AttendingRachel Stacy Note Recipients: Rachel Stacy MD - [phone] [preferred] Required, No Pcp, Discharge Summary: Admission Date: .18-Nov-2020 18:57:00 Discharge Date: 20-Nov-2020 Attending Physician at Discharge: Rcahel Stacy Admission Reason: Inferior Wall STEMI(1) Final Discharge Diagnoses: Acute inferior ST elevation HI. Procedures: Left heart Catheterization, selective coronary angiography, left ventriculography, LV ao pullback, PCI and drug-eluting stent to the distal mid RCA, selective right common femoral angiography, Angio-Seal deployment. Condition at Discharge: stable Disposition at Discharge: Home Vital Signs: T PRBPSpO2 [id number]/7494% Date/Time11/20 11: 11: 20: 11: 11:20 Range(36.8C - 37C ) (70 - 87 ) (17 - 28 ) (132 - 165 )/ (66 - 82 ) (94% - 99% ) Highest temp of 37 C was recorded at 11/20 7:45 Date: Weight/Scale Type:Height: 18-Nov-2020 23:00232.7 kg 188 cm Physical Exam: Patient is [...] hour away, and will be seeking a vision impaired teacher closer to home, but will be seen at [facility] with me within 1 week to go [...] laboratory results: Troponin I, Serum Trending View [id number] 21:03:00 19-Nov-2020 13:00:00 19-Nov-2020 05:23:00 19-Nov-2020 00:54:00 [...] Authorization (EUA) and has been verified by [facility]. This test is only authorized for the duration (more content not included)...[facility]09-17-2021 NoteHistory of Present Illness: HPI: ASHOK DOSS is a 55 year [...] transferred to [facility] emergency department. Code purple called was alerted. [...] 1 mg IV, and Bairon-Synephrine, with prompt restorationism of heart rate and blood pressure. At [...] fluids Thank you, Sincerely, Rachel Stacy MD [facility] Comorbidities: Comorbidites: Comorbid Conditionshypertension Allergies: Allergy Status [...] Completion Last Updated: 18-Nov-2020 20:21 by Rachel Stacy)[facility] 11-18-2020 Chief complaint Narrative - Reported* ASHOK DOSS is being seen for a cardiovascular evaluation . testing results. * ASHOK DOSS is a 55 year old male that presents to the [facility] with his for follow-up on testing. He follows with his primary vision impaired teacher Dr. Stacy and was added to my scheduletoday. He has a recent history of an [...] his endurance is returning. He has not yetstarted cardiac rehabilitation. He actually states that he has yet to check him to see if cardiac rehabilitation is possible at [facility] that is closest to his home. [...] refill his sublingual nitro for him today. * Testing reviewed * 12/23/2020 echocardiogram; LVEF 60 to 65%. Normal RV size and function. Trivial MR, trivial TR, RVSP 32 mmHg. * 12/23/2020 cardiac stress test; no exercise-induced chest discomfort or ST changes at 76% of MPHR. * Assessment: * 1. CAD; with acute inferior ST elevation HI requiring cardiac catheterization 11/18/2020 with PCI and stenting to the mid RCA. No recurrence of chest pain, chest pressure or chest tightness. He deniesany recent use of sublingual nitro or ER visits. We will continue current medications. He has requested a refill on his sublingual nitro as he carries it with him daily. * 2. Hypertension; well controlled with blood pressure in the office today 131/74. We will continue current medication * 3. Obesity; we have discussed increased physical activity, along with consuming a low carbohydrate,low sugar and processed food diet, to aid in weight loss. * Plan: * 1. May return to work * 2. Renew sublingual nitro 0.4 mg as needed * 3. Follow-up with Dr. Stacy in the office in 3 months or sooner if needed * Please excuse any errors in grammar or translation related to dictation, voice recognition softwarewas used to prepare this document. [facility] 127 DO Work Phone: Evaluation note* Diagnosis Cervical spondylosis with myelopathy- Primary Loss of balance Other symptoms involving nervous and musculoskeletal systems Spinal stenosis of cervical region Spinal stenosis in cervical region documented [facility] this encounter [facility] Diagnosis Hypertension, unspecified type Atherosclerosis of kasaan coronary artery of kasaan heart without angina pectoris Current every day smoker Other hyperlipidemia Palpitations Unstable angina pectoris (Multi) Intermediate coronary syndrome Sleep apnea with use of continuous positive airway pressure (CPAP) History of ST elevation myocardial infarction (STEMI) History of PTCA Postsurgical percutaneous transluminal coronary angioplasty status Shortness of breath Acute cough BMI 35.0-35.9,adult documented in this encounter [facility] Work Phone: Evaluation note* Diagnosis Coronary artery disease involving kasaan coronary artery of kasaan heart with unstable angina pectoris- Primary Encounter to discuss test results Other specified counseling Shortness of breath History of PTCA Postsurgical percutaneous transluminal coronary angioplasty status History of ST elevation myocardial infarction (STEMI) Primary hypertension Unspecified essential hypertension Other hyperlipidemia Palpitations Acute cough Sleep apnea with use of continuous positive airway pressure (CPAP) BMI 37.0-37.9, adult Current every day smoker Fatigue, unspecified type Medication course changed documented in this encounter [facility] Work Phone: Evaluation note* Diagnosis Atherosclerosis of kasaan coronary artery of kasaan heart without angina pectoris- Primary History of PTCA Postsurgical percutaneous transluminal coronary angioplasty status Mixed hyperlipidemia Primary hypertension Unspecified essential hypertension Current every day smoker BMI 35.0-35.9,adult documented in this encounter [facility] Work Phone: Evaluation note* Diagnosis Shortness of breath Encounter to discuss test results Other specified counseling History of PTCA Postsurgical percutaneous transluminal coronary angioplasty status Mixed hyperlipidemia Primary hypertension Unspecified essential hypertension Current every day smoker BMI 37.0-37.9, adult Medication course changed Hypertension, unspecified type Atherosclerosis of kasaan coronary artery of kasaan heart without angina pectoris Other hyperlipidemia Sleep apnea with use of continuous positive airway pressure (CPAP) History of ST elevation myocardial infarction (STEMI) BMI 35.0-35.9,adult documented in this encounter [facility] Work Phone: Evaluation note* Diagnosis Benign prostatic hyperplasia with urinary obstruction- Primary Benign prostatic hyperplasia with urinary obstruction- Primary Benign prostatic hyperplasia with urinary obstruction- Primary documented [facility] this encounter [facility] Diagnosis Migraine, unspecified, not intractable, without status migrainosus documented in this encounter [facility]* Diagnosis Benign prostatic hyperplasia with urinary obstruction- Primary Enlarged prostate Hypertrophy of prostate without urinary obstruction and other lower urinary tract symptoms (LUTS) documented in this encounter [facility]* Diagnosis Lower urinary tract symptoms (LUTS)- Primary Acute non-recurrent frontal sinusitis- Primary Lower urinary tract symptoms (LUTS) documented in this encounter [facility]* Diagnosis Migraine, unspecified, not intractable, without status migrainosus documented in this encounter [facility]* Diagnosis Lower urinary tract symptoms (LUTS)- Primary Benign prostatic hyperplasia with urinary obstruction Lower urinary tract symptoms (LUTS) documented in this encounter [facility]* Diagnosis Lower urinary tract symptoms (LUTS)- Primary Acute non-recurrent frontal sinusitis- Primary Pigmented skin lesion of uncertain behavior of neck Lower urinary tract symptoms (LUTS) documented in this encounter [facility]* Diagnosis Enlarged prostate- Primary Hypertrophy of prostate without urinary obstruction and other lower urinary tract symptoms (LUTS) Benign prostatic hyperplasia with urinary obstruction- Primary Enlarged prostate Hypertrophy of prostate without urinary obstruction and other lower urinary tract symptoms (LUTS) Benign prostatic hyperplasia with urinary obstruction documented in this encounter [facility]* Diagnosis Essential hypertension- Primary Unspecified essential hypertension Chronic hip pain, left Mixed hyperlipidemia Enlarged prostate Hypertrophy of prostate without urinary obstruction and other lower urinary tract symptoms (LUTS) Skin lesion of left lower limb Unspecified disorder of skin and subcutaneous tissue documented in this encounter [facility]* Diagnosis Migraine, unspecified, not intractable, without status migrainosus documented in this encounter [facility]* Diagnosis Acute bronchitis, unspecified organism- Primary Upper respiratory symptom documented in this encounter [facility]* Diagnosis Benign prostatic hyperplasia with urinary obstruction- Primary Migraine, unspecified, not intractable, without status migrainosus documented in this encounter [facility]* Diagnosis Benign prostatic hyperplasia with urinary obstruction- Primary Benign prostatic hyperplasia with urinary obstruction- Primary documented in this encounter [facility]* Diagnosis Benign prostatic hyperplasia with urinary obstruction- Primary Benign prostatic hyperplasia with urinary obstruction- Primary Migraine, unspecified, not intractable, without status migrainosus documented in this encounter [facility]* Diagnosis Benign prostatic hyperplasia with urinary obstruction- Primary Benign prostatic hyperplasia with urinary obstruction- Primary Migraine, unspecified, not intractable, without status migrainosus documented in this encounter [facility]* Diagnosis Atherosclerosis of kasaan coronary artery of kasaan heart without angina pectoris Medication course changed Primary hypertension Unspecified essential hypertension Mixed hyperlipidemia Palpitations Current every day smoker Sleep apnea with use of continuous positive airway pressure (CPAP) BMI 35.0-35.9,adult documented in this encounter [facility] Work Phone: Evaluation note* Diagnosis Benign prostatic hyperplasia with urinary obstruction- Primary Benign prostatic hyperplasia with urinary obstruction- Primary Migraine, unspecified, not intractable, without status migrainosus documented in this encounter [facility] SystemEvaluation noteNo assessment information available [facility] Work Phone: History of Present illness Narrative* Patient is seen by me for the first time. 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 He was taken to [place] where he had a coronary intervention and [...] the merits of lifestyle modification and exercise. [facility] 600 DO Work Phone: History of [...] in order to furtherimprove his hypertension and lipids.[facility] 250 DO Work Phone: Hospital Discharge instructionsAmbulatory Orders* Referral to Orthopedic Surgery Location: None Selected * Referral to PT / OT / Speech (PT/OT/SP) Location: None Selected [facility] Work Phone: InstructionsNot on filedocumented in this encounter [facility] filedocumented in this encounter [facility]Not on filedocumented in this encounter [facility]Not on filedocumented in this encounter [facility]Not on filedocumented in this encounter [facility]Not on filedocumented in this encounter [facility]Not on filedocumented in this encounter [facility]Not on filedocumented in this encounter [facility]ructionsNot on filedocumented in this encounter [facility]ructionsNot on filedocumented in this encounter [facility]ructionsNot on filedocumented in this encounter [facility]ructionsNot on filedocumented in this encounter [facility]ructionsNot on filedocumented in this encounter [facility]ructionsNot on filedocumented in this encounter [facility]InstructionsNot on filedocumented in this encounter [facility]InstructionsNot on filedocumented in this encounter [facility] System[facility] for referral (narrative)* Consultation (Routine) - Authorized Specialty Diagnoses / Procedures Referred By Mikaela zeng Referred To Contact Cardiology Diagnoses Atherosclerosis of kasaan coronary artery of kasaan heart without angina pectoris Procedures Follow Up In Cardiology Leonid Figueredo MD [address] [facility] 2, [facility] [address] [place] [address] Rachel Stacy MD [address] [facility] [address] [place] [address] Referral ID Status Reason Start Date Expiration Date V isits Requested Visits Authorized [id number] Authorized 08/28/2023 08/27/2024 1 1 [facility] Work Phone: Reason for referral (narrative)* Consultation (Routine) - Pending Review Specialty Diagnoses / Procedures Referred By Contac t Referred To Contact Dermatology Diagnoses Pigmented skin lesion of uncertain behavior of neck Magda Cruz, BREAKFAST SUPERVISOR-CITY EDITOR [address] [place] [address] Johanny Burroughs DO [address] [place] [address] Referral ID Status Reason Start Date Expiration Date Visits Requested Visits Authorized [id number] Pending Review Specialty Services Required 08/05/2023 08/04/2024 1 1 [facility] Consultation (Routine) - Pending Review Specialty Diagnoses / Procedures Referred By Contac t Referred To Contact Dermatology Diagnoses Skin lesion of left lower limb Hunter Robins BREAKFAST SUPERVISOR-MOL[employer] INFLATED BALL [address] [place] [address] Sivliano Burroughs DO [address] [place] [address] Referral ID Status Reason Start Date Expiration Date Visits Requested Visits Authorized [id number] Pending Review Specialty Services Required 05/01/2023 04/30/2024 1 1 * Consultation (Routine) - Pending Review Specialty Diagnoses / Procedures Referred By Contac t Referred To Contact Urology Diagnoses Enlarged prostate Hunter Robins BREAKFAST SUPERVISOR-MOL[employer] INFLATED BALL [address] [place] [address] Deborah Jeronimo MD [address] [place] [address] [place] [address] Referral ID Status Reason Start Date Expiration Date Visits Requested Visits Authorized [id number] Pending Review Specialty Services Required 05/01/2023 04/30/2024 1 1 * Misc (Routine) - Pending Review Specialty Diagnoses / Procedures Referred By Mikaela zeng Referred To Contact Diagnoses Chronic hip pain, left Procedures Disability/Handicap Hunter Hunter, BREAKFAST SUPERVISOR-MOL[employer] INFLATED BALL [address] [place] [address] Referral ID Status Reason Start Date Expiration Date V isits Requested Visits Authorized [id number] Pending Review 05/01/2023 04/30/2024 1 1 [facility] Diagnosis Gouty arthritis of [...] FoundDocuments on File Type Date Recorded Patient Flight Attendant/Inflight Supervisor Expl anation Advance Directives and Living Will Power of Medicare Specialist Documents on File Type Date Recorded Patient Flight Attendant/Inflight Supervisor Expl anation ACP-Advance Directive ACP-Power of Medicare Specialist Documents on File Type Date Recorded Patient Flight Attendant/Inflight Supervisor Expl anation ACP-Advance Directive ACP-Power of Medicare Specialist Date Activated Date Inactivated Comments 03/24/2022 9:21 AM 03/26/2022 5:36 PM Date Activated Date Inactivated Comments 03/24/2022 9:21 AM 03/26/2022 5:36 PM Latest Code Status on File Code Status Date Activated Date Inactivated Comments Full Code 03/24/2022 9:21 AM 03/26/2022 5:36 PM Latest Code Status on File Code Status Date Activated Date Inactivated Comments Full Code 03/24/2022 9:21 AM 03/26/2022 5:36 PM Advance Directive Response Recorded Date/ Time Advance Directives No January 08, 2024 4:41pm Reason for Referral Status Reason Specialty Diagnoses / Procedures Referre d By Contact Referred To Contact Closed Radiology Diagnoses Effusion of left knee Injury of left knee, subsequent encounter Procedures MRI KNEE LEFT WO CONTRAST Patria Quiñones, CPNP [address] [place] [address] Specialty Diagnoses / Procedures Referred By Contac t Referred To Contact CT IMAGING Diagnoses Spinal stenosis of cervical region Procedures CT CERVICAL SPINE WO IVCON CT CERVICAL SPINE W/O CONTRAST MATERIAL Megan Interiano MD [address] [place] [address] Ct Imaging Referral ID Status Reason Start Date Expiration Date Visits Requested Visits Authorized [id number] Authorized Auto-Generat ed Referral 06/06/2021 07/06/2022 1 1 Specialty Diagnoses / Procedures Referred By Contac t Referred To Contact XR IMAGING Diagnoses Cervical spondylosis with myelopathy Procedures XR CERV OTHER 4V AP/LAT/FLX/EXT RADEX SPINE CERVICAL 4 OR 5 VIEWS Vivien Lawton PA-C [address] [place] [address] Xr Imaging Referral ID Status Reason Start Date Expiration Date Visits Requested Visits Authorized [id number] Authorized Auto-Generat ed Referral 06/06/2021 07/06/2022 1 1 Specialty Diagnoses / Procedures Referred By Contac t Referred To Contact Radiology Diagnoses Hypertension, unspecified type Atherosclerosis of kasaan coronary artery of kasaan heart without angina pectoris Current every day smoker Other hyperlipidemia Palpitations Unstable angina pectoris (Multi) Sleep apnea with use of continuous positive airway pressure (CPAP) History of ST elevation myocardial infarction (STEMI) History of PTCA Shortness of breath Acute cough BMI 35.0-35.9,adult Procedures XR chest 2 views Guicho Mulligan MD [address] [facility] [address] [place] [address] Referral ID Status Reason Start Date Expiration Date Visits Requested Visits Authorized [id number] Authorized Perform Procedure 12/12/2024 1 1 Specialty Diagnoses / Procedures [facility] Referred To Contact Cardiology Diagnoses Hypertension, unspecified type Atherosclerosis of kasaan coronary artery of kasaan heart without angina pectoris Current every day smoker Other hyperlipidemia Palpitations Unstable angina pectoris (Multi) Sleep apnea with use of continuous positive airway pressure (CPAP) History of ST elevation myocardial infarction (STEMI) History of PTCA Shortness of breath Acute cough BMI 35.0-35.9,adult Procedures Holter Or Event Recreation Teacher Guicho Mulligan MD [address] [place] [address] Referral ID Status Reason Start Date Expiration Date V isits Requested Visits Authorized [id number] Pending Review 12/13/2023 12/12/2024 1 1 Specialty Diagnoses / Procedures [facility] Referred To Contact Radiology Diagnoses Hypertension, unspecified type Atherosclerosis of kasaan coronary artery of kasaan heart without angina pectoris Current every day smoker Other hyperlipidemia Palpitations Unstable angina pectoris (Multi) Sleep apnea with use of continuous positive airway pressure (CPAP) History of ST elevation myocardial infarction (STEMI) History of PTCA Shortness of breath Acute cough BMI 35.0-35.9,adult Procedures Nuclear Stress Test CHG MYOCARDIAL SPECT MULTIPLE STUDIES Guicho Mulligan MD [address] [place] [id number] Referral ID Status Reason Start Date Expiration Date V isits Requested Visits Authorized [id number] Pending Review 12/13/2023 12/12/2024 5 5 Specialty Diagnoses / Procedures [facility] Referred To Contact Cardiology Diagnoses Hypertension, unspecified type Atherosclerosis of [place] coronary artery of [place] heart without angina pectoris Current every day smoker Other hyperlipidemia Palpitations Unstable angina pectoris (Multi) Sleep apnea with use of continuous positive airway pressure (CPAP) History of ST elevation myocardial infarction (STEMI) History of PTCA Shortness of breath Acute cough BMI 35.0-35.9,adult Procedures Transthoracic Echo (TTE) Complete NV ECHO TTHRC R-T 2D W/WOM-MODE COMPL SPEC&COLR D Guicho Mulligan MD [address] [address] Referral ID Status Reason Start Date Expiration Date Visits Requested Visits Authorized [id number] Pending Review Perform Procedure 12/12/2024 1 1 Specialty Diagnoses / Procedures Referred By Contac t Referred To Contact Cardiology Diagnoses Hypertension, unspecified type Atherosclerosis of [place] coronary artery of [place] heart without angina pectoris Current every day smoker Other hyperlipidemia Palpitations Unstable angina pectoris (Multi) Sleep apnea with use of continuous positive airway pressure (CPAP) History of ST elevation myocardial infarction (STEMI) History of PTCA Shortness of breath Acute cough BMI 35.0-35.9,adult Procedures Follow Up In Cardiology Guicho Mulligan MD [address] [address] Referral ID Status Reason Start Date Expiration Date V Prescribe Wellnessts Requested Visits Authorized [id number] Authorized 12/13/2023 12/12/2024 1 1 Specialty Diagnoses / Procedures Referred By Contac t Referred To Contact Diagnoses Hypertension, unspecified type Atherosclerosis of [place] coronary artery of [place] heart without angina pectoris Current every day smoker Other hyperlipidemia Palpitations Unstable angina pectoris (Multi) Sleep apnea with use of continuous positive airway pressure (CPAP) History of ST elevation myocardial infarction (STEMI) History of PTCA Shortness of breath Acute cough BMI 35.0-35.9,adult Procedures ECG 12 lead (Clinic Performed) Guicho Mulligan MD 917 [facility] [address] [place] [address] Referral ID Status Reason Start Date Expiration Date V isits Requested Visits Authorized [id number] Authorized 12/13/2023 12/12/2024 1 1 Specialty Diagnoses / Procedures Referred By Contac t Referred To Contact Diagnoses Benign prostatic hyperplasia with urinary obstruction Procedures Cystometrogram Deborah Jeronimo MD [address] [place] [address] Referral ID Status Reason Start Date Expiration Date V Prescribe Wellnessts Requested Visits Authorized [id number] Pending Review 07/04/2023 07/03/2024 1 1 Discharge Instructions * Instructions* Ella [...] powder, deodorant, jewelry, piercings, perfume, makeup, nail lebanese, hair accessories, or hair spray on the [...] hospital. The Day of Surgery: Arrive at [facility] Surgery Entrance at the time directed by your surgeon and check in at the desk. If you have a living will or healthcare power of associate attorney, please bring a copy. You will be taken to the pre-op holding area where you will be prepared for surgery. A physical assessment will be performed by a nurse practitioner or housekeeping aid. Your IV will be started and you [...] encounter* Instructions* Irish Meehan RN - 11/10/2019 [facility] Dr. Liu Jackson M.D. [phone] POST OPERATIVE DISCHARGE INSTRUCTIONS KNEE ARTHROSCOPY 1. Follow-up in office seven to ten days after surgery. Call for appointment if not already made. ([phone]). 2. Take pain medication as ordered. 3. [...] of coronary artery disease, dyslipidemia and hypertension. Chief Complaint and Reason for Visit Chief Complaint Admit Date back pain no images October 06, 2024 10: 03am Chief Complaint Admit Date back pain no images October 06, 2024 10: 03am M54.16 [id number] October 14, 2024 9: 23am Reason for Visit Admit Date Left lumbar radiculopathy October 06 10:03am Right leg pain October 06, 2024 10: 03am Additional Source Comments Reason for Visit (unrecogniz ed section and content) Status Reason Specialty Diagnoses / Procedures Referre d By Contact Referred To Contact Closed Radiology Diagnoses Effusion of left knee Injury of left knee, subsequent encounter Procedures MRI KNEE LEFT WO CONTRAST Patria Quiñones, PADMINI [address] [place] [address] Status Reason Specialty Diagnoses / Procedures Referre d By Contact Referred To Contact Diagnoses Acute medial meniscus tear of left knee MEDIAL MENISCUS TEAR LEFT KNEE Procedures NV KNEE SCOPE,DIAGNOSTIC KNEE ARTHROSCOPY WITH PARTIAL MEDICAL MENISECTOMY Liu Jackson MD [address] [facility] [address] [place] [address] [facility] Reason Comments New Patient Reason Comments Schedule Surgery Reason Comments Follow-up PALPITATIONS, CHEST PRESSURE Specialty Diagnoses / Procedures Referred By Contac t Referred To Contact Diagnoses Hypertension, unspecified type Atherosclerosis of [place] coronary artery of [place] heart without angina pectoris Current every day smoker Other hyperlipidemia Palpitations Unstable angina pectoris (Multi) Sleep apnea with use of continuous positive airway pressure (CPAP) History of ST elevation myocardial infarction (STEMI) History of PTCA Shortness of breath Acute cough BMI 35.0-35.9,adult Procedures ECG 12 lead (Clinic Performed) Guicho Mulligan MD [address] [facility] [address] [place] [address] Referral ID Status Reason Start Date Expiration Date V isits Requested Visits Authorized [id number] Authorized 12/13/2023 12/12/2024 1 1 Reason Comments Follow-up Stress, echo, holter results Specialty Diagnoses / Procedures Referred By Contac t Referred To Contact Cardiology Diagnoses Hypertension, unspecified type Atherosclerosis of [place] coronary artery of [place] heart without angina pectoris Current every day smoker Other hyperlipidemia Palpitations Unstable angina pectoris (Multi) Sleep apnea with use of continuous positive airway pressure (CPAP) History of ST elevation myocardial infarction (STEMI) History of PTCA Shortness of breath Acute cough BMI 35.0-35.9,adult Procedures Follow Up In Cardiology Guicho Mulligan MD [address] [address] Phone: tel: fax: Referral ID Status Reason Start Date Expiration Date V isits Requested Visits Authorized [id number] Authorized 12/13/2023 12/12/2024 1 1 Reason Comments Follow-up 9 months Reason Comments Follow-up Cath results Specialty Diagnoses / Procedures [facility] Referred To Contact Cardiology Diagnoses Unstable angina pectoris (Multi) Shortness of breath Procedures Follow Up In Cardiology Rachel Stacy MD [address] [address] Phone: tel: fax: Rachel Stacy MD [address] [address] Phone: tel: fax: Referral ID Status Reason Start Date Expiration Date V isits Requested Visits Authorized [id number] Authorized 01/06/2024 01/05/2025 1 1 Reason Comments Med Refill Reason Comments New Patient enlarged prostate Specialty Diagnoses / Procedures [facility] Referred To Contact Urology Diagnoses Enlarged prostate Hunter Robins, [employer] [address] [place] [address] Deborah Jeronimo MD [address] [place] [id number] Referral ID Status Reason Start Date Expiration Date Visits Requested Visits Authorized [id number] Pending Review Specialty Services Required 05/01/2023 04/30/2024 1 1 Reason Comments Benign Prostatic Hypertrophy Bladder Problem Urinary obstruction Reason Comments URI Reason Comments Follow-up Reason Comments Hyperlipidemia Hypertension Reason Comments Cough Reason Onset Date Comments Med Refill 04/23/2024 Reason Comments Follow-up 6 month follow up fo r Shortness of breath Specialty Diagnoses / Procedures Referred By Contac t Referred To Contact Cardiology Diagnoses Primary hypertension Procedures Follow Up In Cardiology Rachel Stacy MD [address] [address] Phone: tel: fax: Rachel Stacy MD [address] [address] Phone: tel: fax: Referral ID Status Reason Start Date Expiration Date V isits Requested Visits Authorized [id number] Authorized 02/21/2024 02/20/2025 1 1 Reason Onset Date Comments Med Refill 09/07/2024 (unrecognized sect ion and content) No Status Records FoundNo Status Records FoundNo Status Records FoundNo Status Records FoundNo Status Records FoundNo Status Records FoundNo Status Records FoundNo Status Records FoundNo Status Records FoundNo Status Records FoundNo Status Records FoundNo Status Records Found INFORMATION SOURCE (unrecogn ized section and content) DATE CREATED AUTHOR 05/06/2020 [facility] DATE CREATED AUTHOR AUTHOR'S ORGANIZ ATION 05/07/2020 [facility] DATE CREATED AUTHOR AUTHOR'S ORGANIZ ATION 12/26/2020 [facility] DATE CREATED AUTHOR AUTHOR'S ORGANIZ ATION 07/06/2021 [facility] DATE CREATED AUTHOR AUTHOR'S ORGANIZ ATION 10/26/2021 [employer] DATE CREATED AUTHOR AUTHOR'S ORGANIZ ATION 08/10/2022 [facility] DATE CREATED AUTHOR AUTHOR'S ORGANIZ ATION 08/24/2022 [facility] DATE CREATED AUTHOR AUTHOR'S ORGANIZ ATION 08/01/2023 [facility] DATE CREATED AUTHOR AUTHOR'S ORGANIZ ATION 12/08/2023 [facility] DATE CREATED AUTHOR AUTHOR'S ORGANIZ ATION 03/17/2024 [facility] DATE CREATED AUTHOR AUTHOR'S ORGANIZ ATION 08/19/2024 [facility] DATE CREATED AUTHOR AUTHOR'S ORGANIZ ATION 10/15/2024 [facility] Source Comments (unrecognize d section and content) In the event this informatio n is protected by the Federal Confidentiality of Alcohol and Drug Abuse Patient Records regulations: The Federal rules restrict any use of the information to criminally investigate or prosecute any alcohol or drug abuse patient.[facility] the event this information is protected by the Federal Confidentiality of Alcohol and Drug Abuse Patient Records regulations: The Federal rules restrict any use of the information to criminally investigate or prosecute any alcohol or drug abuse patient.[facility] Care Teams (unrecognized sec tion and content) Head Machinist Relationship Specialty Start Date End Date Colten Gordon DO PCP - General 12/23/20 Head Machinist Relationship Specialty Start Date End Date Colten Gordon DO PCP - General 12/23/20 Head Machinist Relationship Specialty Start Date End Date Colten Gordon DO [address], [place] [address] PCP - General 12/23/20 Head Machinist Relationship Specialty Start Date End Date Colten Gordon DO PCP - General 12/23/20 Head Machinist Relationship Specialty Start Date End Date Colten Gordon DO [address] [place] [address] PCP - General Family Medicine 04/03/22 Head Machinist Relationship Specialty Start Date End Date Colten Gordon DO [address] [place] [address] PCP - General Family Medicine 04/03/22 Head Machinist Relationship Specialty Start Date End Date Colten Gordon DO [address] [place] [address] PCP - General Family Medicine 04/03/22 Head Machinist Relationship Specialty Start Date End Date Colten Gordon DO [address] [place] [address] PCP - General Family Medicine 04/03/22 Head Machinist Relationship Specialty Start Date End Date Colten Gordon DO [address] [place] [address] PCP - General Family Medicine 04/03/22 Head Machinist Relationship Specialty Start Date End Date Colten Gordon DO [address] [place] [address] PCP - General Family Medicine 04/03/22 Head Machinist Relationship Specialty Start Date End Date BettezafarColten figueroa DO [address], [place] [address] PCP - General Family Medicine 04/03/22 Head Machinist Relationship Specialty Start Date End Date Colten Gordon DO [address] [place] [address] PCP - General Family Medicine 04/03/22 Head Machinist Relationship Specialty Start Date End Date BettezafarColten figueroa DO [address], [place] [address] PCP - General Family Medicine 04/03/22 Head Machinist Relationship Specialty Start Date End Date BetteleighannColten DO [address], [place] [address] PCP - General Family Medicine 04/03/22 Head Machinist Relationship Specialty Start Date End Date Colten Gordon DO [address], [place] [address] PCP - General Family Medicine 04/03/22 Head Machinist Relationship Specialty Start Date End Date BettezafarColten figueroa DO [address] [place] [address] PCP - General Family Medicine 04/03/22 Head Machinist Relationship Specialty Start Date End Date ElisaColten figueroa DO [address] [place] [address] PCP - General Family Medicine 04/03/22 Head Machinist Relationship Specialty Start Date End Date FidelColten [address], [place] [address] PCP - General Family Medicine 04/03/22 Head Machinist Relationship Specialty Start Date End Date Colten Gordon [address], [place] [address] PCP - General Family Medicine 04/03/22 Head Machinist Relationship Specialty Start Date End Date BettezafarColten figueroa [address], [place] [address] PCP - General Family Medicine 04/03/22 Head Machinist Relationship Specialty Start Date End Date BetteleighannColten [address], [place] [address] PCP - General Family Medicine 04/03/22 Head Machinist Relationship Specialty Start Date End Date Colten Gordon [address], [place] [address] PCP - General Family Medicine 04/03/22 Head Machinist Relationship Specialty Start Date End Date Colten Gordon PCP - General 12/23/20 Head Machinist Relationship Specialty Start Date End Date BetteleighannColten [address], [place] [address] PCP - General Family Medicine 04/03/22 Team Status: Active Member Role Status Dates Colten Gordon DO Primary Care Provider Active Team Status: Inactive Member Role Status Dates Colten Gordon DO Primary Care Provider Active Start: October 06, 2024 End: October 06, 2024 Kamila Chan APRN Attending Provider Active Start: October 06, 2024 End: October 06, 2024 Team Status: Inactive Member Role Status Dates Colten Gordon DO Primary Care Provider Active Start: October 14, 2024 End: October 14, 2024 Kamila Chan APRN Attending Provider Active Start: October 14, 2024 End: October 14, 2024 Goals (unrecognized section and content) Goals may be documented in a n alternate sectionGoals may be documented in an alternate section FOR RECORDS PERTAINING TO PATIENTS WHO ARE [...] BE BASED ON THE PRIMARY CLINICAL RECORDS. [employer] provides no warranty or guarantee of the accuracy or completeness of information in this document.
== END 2024-10-20 10:27 | disposition home or self-care (01) ==
LOC: RAD 10:26
PROVIDERS: PCP Nurse Practitioner Family; Visit Provider Orthopaedic Surgery
DX: M25.552 Pain in left hip (principal); M16.12 Unilateral primary osteoarthritis, left hip
CPT/HCPCS: 73501

== ENCOUNTER 2024-11-26 10:17 | Outpatient (OUT) | payer MEDICARE, SELFPAY ==
--- OUTSIDE RECORDS SUMMARY | 2024-11-18 14:15 | XMS_ITS | Encounter Summary ---
Author Organization [employer] [facility] tem Address [facility] [id number] [address] [place] [address] Care Team Providers Care Manufacturing Analyst Name Role Phone Colten Parra DO Primary Care Provider +1 [phone] Reason for Referral * Misc (Routine) - Pending Review Specialty Diagnoses / Procedures Referred By Mikaela t Referred To Contact Diagnoses Benign prostatic hyperplasia with urinary obstruction Procedures Measure post void residual Сергей Lucas MD [address] [place] [address] Phone: tel: fax: Referral ID Status Reason Start Date Expiration Date V isits Requested Visits Authorized [id number] Pending Review 11/18/2024 11/18/2025 1 1 Reason for Visit * Reason Comments Follow-up Encounter Details Date Type Department Care Team (Late st Contact Info) Description 11/18/2024 2:15 PM EDT Office Visit [facility] [address] [place] [address] [place] [address] Сергей Lucas MD [address] [place], [place] [id number] Benign prostatic hyperplasia with urinary obstruction (Primary Dx) Social History Tobacco Use Types Packs/Day Years Used Date Smoking Tobacco: Every Day Cigarettes 1 46.7 Started: 1978 Smokeless Tobacco: Never Alcohol Use [...] got money to buy more. Never True 11/18/2024 Within the past 12 months th e food we bought just didn't last and we didn't have money to get more. Never True 11/18/2024 Purpose - Life Answer Date Recorded Purpose and direction in life Unknown Sex and Gender Information Value Date Recorded Sex Assigned at Not on file Legal Sex Male 12:13 PM EDT Gender Identity Not on file Sexual Orientation Not on file documented as of this encounter Last Filed Vital Signs Vital Sign Reading Time Taken Comments Blood Pressure 94/59 11/18/2024 2:11 PM EDT Pulse 80 11/18/2024 2:11 PM EDT Temperature - - Respiratory Rate - - Oxygen Saturation - - Inhaled Oxygen Concentration - - Weight 130.2 kg (287 lb) 11/18/2024 2:11 PM EDT Height 188 cm (6' 2 ) 11/18/2024 2:11 PM EDT Body Mass Index 36.85 11/18/2024 2:11 PM EDT documented in this encounter Progress Notes * Сергей Lucas MD - 11/18/2024 2:15 PM EDT Images from the original note were not included. [address] [place] [address] A [facility] [id number] Patient: Dale Belcher Date of : 1965 Encounter Date: 11/18/2024 History of Present Illness: The patient is a 59 y.o. male, an established patient, and is here for Chief Complaint Patient presents with Follow-up . History lower urinary tract symptoms. Bladder outlet obstruction. No gross hematuria dysuria. Voiding well. No incontinence. Urinalysis today: No results for input(s): EXTPOCURCO , EXTPOCURCH , EXTPOCAPP , EXTPOCURBS , EXTPOCURBIL , EXTPOCUKET , EXTPOCUSPG , EXTPOCUHGB , EXTPOCUPRO , EXTPOCUURO , EXTPOCULEU , EXTPOCUNIT , EXTPOCUWBC , EXTPOCUBLD , EXTPOCURBC , EXTPOCUCRY , EXTPOCUBAC , EXTPOCUTREP , EXTPOCUPH , EXTPOCUL EE in the last 72 hours. Last BUN and creatinine: Lab Results Component Value Date BUN 16 08/17/2024 Lab Results Component Value Date CREATININE 0.96 08/17/2024 Last PSA: Lab Results Component Value Date [...] Diagnosis Date Arthritis DVT (deep venous thrombosis) ([facility]) x2 Fractures Headache Hyperlipidemia Hypertension Myocardial infarction ([facility]) PONV (postoperative nausea and vomiting) Sleep apnea Past Surgical History: Procedure Laterality Date ANKLE SURGERY Left CARDIAC CATHETERIZATION 2020 stent CARDIAC CATHETERIZATION 01/09/2024 CARPAL TUNNEL RELEASE Right COLONOSCOPY N/A 12/07/2022 Performed by Nasir Richey DO at [facility] CYSTOSCOPY WITH [facility] BLADDER SOLUTION N/A 08/21/2023 Performed by Сергей Lucas MD at [facility] FRACTURE SURGERY Right knee, tibia INJECTION HIP & CPT 39362 Left 01/22/2024 Performed by Timothy Love DO at [facility] KNEE SURGERY Bilateral meniscectomy-bilateral LUMBAR LAMINECTOMY RADIO [...] 1 tablet (10 mg total) by mouth in the morning and 1 tablet (10 mg total) at noon and 1 tablet (10 mg total) before bedtime. dextromethorphan-guaiFENesin (ROBITUSSIN-DM) 10-100 mg/5 mL liquid Take 5 mL by mouth every 12 (twelve) hours. 236 mL 0 divalproex (DEPAKOTE) 125 mg EC tablet Take 1 tablet (125 mg total) by mouth every morning. 90 tablet 0 finasteride (PROSCAR) 5 mg tablet Take 1 tablet (5 mg total) by mouth in the morning. 90 tablet 3 HYDROcodone-acetaminophen (NORCO) 5-325 mg per tablet Take 1 tablet by mouth as needed in the morning and 1 tablet as needed in the evening. lisinopriL (PRINIVIL,ZESTRIL) 20 mg tablet Take 1 tablet (20 mg total) by mouth in the morning. lisinopril-hydroCHLOROthiazide (PRINZIDE,ZESTORETIC) 20-12.5 mg per tablet Take 1 tablet by mouth in the morning. magnesium oxide (MAGOX) 400 mg tablet Take 1 tablet (400 mg total) by mouth in the morning and 1 tablet (400 mg total) before bedtime. metoprolol tartrate (LOPRESSOR) 25 mg tablet TAKE 1 TABLET (25 MG) BY MOUTH IN THE MORNING AND AT BEDTIME 180 tablet 1 tamsulosin (FLOMAX) 0.4 mg capsule Take 2 capsules (0.8 mg total) by mouth in the morning. 180 capsule 3 cyclobenzaprine (FLEXERIL) 10 mg tablet Take 1 tablet (10 mg total) by mouth 3 (three) times a day as needed for muscle spasms. No current facility-administered medications for this visit. (All medications reviewed and updated by provider since last office visit or hospitalization) Allergies: Isosorbide mononitrate, Amoxicillin, Fentanyl, and Prednisone Tobacco History: Social History Tobacco Use Smoking Status Every Day Current packs/day: 1.00 Average packs/day: 1 pack/day for 46.7 years (46.7 ttl pk-yrs) Types: Cigarettes Start date: 1978 Smokeless Tobacco Never (If patient a smoker, smoking cessation counseling offered) Social History: Social History Substance and Sexual Activity Alcohol Use Yes Comment: rarely Review of Systems: General: Negative for chills and fever. Cardiovascular: Negative for chest pain and shortness of breath. Gastrointestinal: Negative for constipation, diarrhea, nausea, and vomitting. -per HPI Physical Exam: BP 94/59 Pulse 80 Ht 188 cm (6' 2 ) Wt 130.2 kg (287 lb) BMI 36.85 kg/m?? Nontoxic no apparent distress. Respirations nonlabored. Skin is dry. Awake alert oriented x3. Assessment and Plan: Dale was seen today for follow-up. Diagnoses and all orders for this visit: Benign prostatic hyperplasia with urinary obstruction Problem List High Benign prostatic hyperplasia with urinary obstruction - Primary Overview Had DVT on affected leg of fracture 2022--not required to be on a long-term blood thinners. ==== 11/18/2024 ==== still happy with maximal medical therapy states he is urinating quite well. Will check a PVR today. ==== 02/05/2024 ==== a maximal medical therapy [...] or hydronephrosis. Plan: Renal bladder ultrasound. Cystoscopy [facility] bladder solution. CMG/flow Urine forculture. Current Assessment & Plan PSA was less than 1 less than 2 years ago that is reasonable. Relevant Medications lisinopriL (PRINIVIL,ZESTRIL) 20 mg tablet Follow-up: Check postvoid residual today if less than 150 cc patient can go will see him back in October Сергей Lucas MD Urology serves as the continuing focal point for providing ongoing care for a single, serious, or complex conditionis BPH- on maximal medical therapy requiring ongoing monitoring. May require surgical intervention in the future. This note was created with the assistance of a speech recognition program. While intending to generate a timely document that accurately reflects the content of the visit, no guarantee can be provided that every grammatical or spelling mistake has been or will be identified or corrected. Thank you for your understanding. documented in this encounter Miscellaneous Notes * Assessment & Plan Note - Сергей Lucas MD - 11/18/2024 2:22 PM EDT Associated Problem(s): Benign prostatic hyperplasia with urinary obstruction PSA was less than 1 less than 2 years ago that is reasonable. * Addendum Note - Chery Gonzalez LPN - 11/18/2024 2:15 PM EDTAddended by: CHERY GONZALEZ on: 11/18/2024 02:28 PM Modules accepted: Orders documented in this encounter Plan of Treatment Upcoming Encounters Date Type Department Care Team (Late st Contact Info) Description 10/06/2025 1:15 PM EDT Office Visit [facility] [address] [place] [address] [place] [address] Сергей Lucas MD [address] [place] [address], [place] [address] documented as of this encounter Goals Goal Patient Goal Type Associated Problems Recent Progress Patient-Stated? Author safe discharge ot home General Yes Simran Mallory, RN Note: Evaluation of progress towards goal: safe transition to home with support of pt's and resumption with outpatient PT. documented as of this encounter Procedures Procedure Name Priority Date/Time Associated Diagnosis Comments MEASURE POST VOID RESIDUAL Routine 11/18/2024 2:27 PM EDT Benign prostatic hyperplasia with urinary obstruction documented in this encounter Results * Measure post void residual (11/18/2024 2:27 PM EDT) Volume 68 mL MANUALLY TRANSCRIBED RESULTS us Сергей Lucas MD NURSING ASSESSMENTS Final Re sult MANUALLY TRANSCRIBED RESULTS documented in this encounter Visit Diagnoses Diagnosis Benign prostatic hyperplasia with urinary obstruction- Primary documented in this encounter Additional Health Concerns Assessment Noted Time PHQ-9 Depression Total Score: 6 08/05/19 24 2:49 PM EDT documented as of this encounter Care Teams Manufacturing Analyst Relationship Specialty Start Date End Date Colten Parra DO [address] [facility], [place] [address] PCP - General Family Medicine 04/03/22 documented as of this encounter
--- OUTSIDE RECORDS SUMMARY | 2024-11-26 10:22 | XMS_ITS | Encounter Summary ---
Author Organization [employer] s tem Address [id number] [address] [place] [address] Care Team Providers Care Friction Saw Operator Name Role Phone Colten Parra Primary Care Provider +1 [phone] Encounter Details Date Type Department Care Team (Late st Contact Info) Description 11/27/2022 [facility] [address] [place] [address] Lizabeth Hernandez CMA Social History Tobacco Use [...] called because his insurance is giving [facility] an issue about the [employer]abs. He wanted to know if you would call them in to [facility] and he will pay the $50.00. He does not want to drink the liquid. documented in this encounter Plan of Treatment Upcoming Encounters Date Type Department Care Team (Late st Contact Info) Description 10/06/2025 1:15 PM EDT Office Visit [facility] [address] [place] [address] [place] [phone] Сергей Lucas MD [address] [place] [address] documented as of this encounter Goals Goal [...] documented as of this encounter Care Teams Friction Saw Operator Relationship Specialty Start Date End Date Colten Parra DO [address] [facility] [place] [address] PCP - General Family Medicine 04/03/22 documented as of this encounter
--- OUTSIDE RECORDS SUMMARY | 2024-11-26 10:22 | XMS_ITS | Encounter Summary ---
Author Organization [facility] Address [facility]-[id number] [address] [place] [address] Care Team Providers Care Machine Brush Maker Name Role Phone Colten Parra Primary Care Provider +1- [phone] Encounter Details Date Type Department Care Team (Late st Contact Info) Description 06/15/2022 Orders Only [facility] - Family Medicine [address] [place] [address] External, Scanning Provider Social History Tobacco Use [...] Visit [facility] [address] [address] Сергей Lucas MD [address] [place] [address] documented as of this encounter Goals Goal [...] ORDERABL ES Final Result Performing Organization Address City/[facility]/ZIP Co de Phone Number MANUALLY TRANSCRIBED RESULTS * ECG 12 lead (05/04/2020) us Scanning Provider External ECG ORDERABLES Final Result MANUALLY TRANSCRIBED RESULTS documented in this encounter Visit Diagnoses Not on filedocumented in this encounter Additional Health Concerns Assessment Noted Time PHQ-9 Depression Total Score: 0 06/09/19 23 9:55 AM EDT documented as of this encounter Care Teams Machine Brush Maker Relationship Specialty Start Date End Date Colten Parra DO [address] [facility] [place] [address] PCP - General Family Medicine 04/03/22 documented as of this encounter
--- OUTSIDE RECORDS SUMMARY | 2024-11-26 10:22 | XMS_ITS | Encounter Summary ---
Author Organization [employer] s tem Address [facility] [place]-[id number] [address] [place] [address] Care Team Providers Care Tube Fitter Name Role Phone ElisaColten figueroa Raymond CARR Primary Care Provider [phone] Reason for Visit * Reason Comments Med Change Request Encounter Details Date Type Department Care Team (Late Contact Info) Description 11/27/2022 Refill [facility] - Family Medicine [address] [place] [address] Nasir Richey [address] [place] [address] Positive colorectal cancer screening using Cologuard test [...] Department Care Team (Late Contact Info) Description 10/06/2025 1:15 PM EDT Office Visit [facility] [address] [place] [address] Сергей Lucas MD [address] [place] [address] documented as of this encounter [...] documented as of this encounter Care Teams Tube Fitter Relationship Specialty Start Date End Date Colten Parra DO [address] [place], [facility] [place] [address] PCP - General Family Medicine 04/03/22 documented as of this encounter
--- OUTSIDE RECORDS SUMMARY | 2024-11-26 10:22 | XMS_ITS | Encounter Summary ---
Author Organization [employer] tem Address [facility] [id number] [address] [place] [address] Care Team Providers Care C.O.D. Clerk Name Role Phone ElisaColten figueroa Raymond CARR Primary Care Provider [phone]- [phone] Encounter Details Date Type Department Care Team (Late Contact Info) Description 11/27/2022 Orders Only [facility] - Family Medicine [address] [place] [address] Nasir Richey [address] [place] [address] Positive colorectal cancer screening using Cologuard test [...] Visit [facility] [address] [place] [address] Сергей Lucas MD [address] [place] [address] documented as of this encounter Goals Goal [...] documented as of this encounter Care Teams C.O.D. Clerk Relationship Specialty Start Date End Date Colten Parra DO [address] [facility] [place] [place] [address] PCP - General Family Medicine 04/03/22 documented as of this encounter
--- OUTSIDE RECORDS SUMMARY | 2024-11-26 10:22 | XMS_ITS | Encounter Summary ---
Author Organization [employer] s tem Address [id number] [address] [place] [address] Care Team Providers Care Outpatient Receptionist Name Role Phone BetteColten lawton Primary Care Provider [phone]- [phone] Encounter Details Date Type Department Care Team (Late Contact Info) Description 09/25/2022 Orders Only [facility] - Family Medicine [address] [place] [address] External, Scanning Provider Social History Tobacco Use [...] Office Visit [facility] [address] [place] [address] [place] [address] Сергей Lucas MD [address] [place], [place] [address] documented as of this encounter Goals Goal [...] documented as of this encounter Care Teams Outpatient Receptionist Relationship Specialty Start Date End Date Colten Parra DO [address] [place] [address] PCP - General Family Medicine 04/03/22 documented as of this encounter
--- OUTSIDE RECORDS SUMMARY | 2024-11-26 10:22 | XMS_ITS | Encounter Summary ---
Author Organization [employer] s tem Address [facility] [place][id number] [address] [place] [address] Care Team Providers Care Sweet Pickle Maker Name Role Phone BetteColten lawton Primary Care Provider +1- [phone] Encounter Details Date Type Department Care Team (Late Contact Info) Description 09/21/2022 Orders Only [facility] - Family Medicine [address] [place] [address] External, Scanning Provider Social History Tobacco Use [...] Visit [facility] [address] [place] [address] [place] [address] Сергей Lucas MD [address] [place], [place] [address] documented as of this encounter Goals Goal [...] documented as of this encounter Care Teams Sweet Pickle Maker Relationship Specialty Start Date End Date Colten Parra DO [address] [facility], [place] [address] PCP - General Family Medicine 04/03/22 documented as of this encounter
--- OUTSIDE RECORDS SUMMARY | 2024-11-26 10:22 | XMS_ITS | Encounter Summary ---
Author Organization [employer] Address [id number] [address] [place] [address] Care Team Providers Care Assistant Professor Of Psychology Name Role Phone Colten Parra DO Primary Care Provider +1- [phone] Reason for Visit * Reason Comments Med Refill Encounter Details Date Type Department Care Team (Late st Contact Info) Description 11/20/2021 Refill [facility] - Family Medicine [address] [place] [address] Colten Parra DO [address], [facility] [place] [address] Migraine, unspecified, not intractable, without status migrainosus [...] Office Visit [facility] [address] [place] [address] [place] [address] Сергей Lucas MD [address] [place] [address] documented as of this encounter Visit Diagnoses Diagnosis Migraine, unspecified, not intractable, without status migrainosus documented in this encounter Care Teams Assistant Professor Of Psychology Relationship Specialty Start Date End Date Colten Parra DO [address] [facility] [place] [address] PCP - General Family Medicine 04/03/22 documented as of this encounter
--- OUTSIDE RECORDS SUMMARY | 2024-11-26 10:22 | XMS_ITS | Encounter Summary ---
Author Organization [facility] Address [id number] [address] [place] [address] Care Team Providers Care Day Care Director Name Role Phone Colten Parra DO Primary Care Provider +1- [phone] Encounter Details Date Type Department Care Team (Late st Contact Info) Description 11/13/2022 Telephone [facility] Internal Medicine - Family Medicine [address] [place] [address] Hollie Jin CMA Social History Tobacco Use [...] original note were not included. sent in Mainkeys Inchart: [facility] Clinical Staff (supporting Colten Parra DO)9 hours ago (10:08 PM) Abdon Dhaliwal Been trying all day to contact office with no luck. Leif would like to see if you can set him up for colonoscopy. He had did home test and they said he needed to have the other done. You can contact him at [phone] or message me back. Thank you * [...] Office Visit [facility] [address] [place] [address] [place] [address] Сергей Lucas MD [address] [place] [address] documented as of this encounter Goals Goal [...] documented as of this encounter Care Teams Day Care Director Relationship Specialty Start Date End Date Colten Parra DO [address] [facility], [facility] [place] [address] PCP - General Family Medicine 04/03/22 documented as of this encounter
--- OUTSIDE RECORDS SUMMARY | 2024-11-26 10:22 | XMS_ITS | Encounter Summary ---
Author Organization [employer] s tem Address [id number] [address] [place] [address] Care Team Providers Care Associate Professor Of Mathematics Name Role Phone Colten Parra DO Primary Care Provider +1- [phone] Reason for Visit * Reason Comments Med Refill Encounter Details Date Type Department Care Team (Late Contact Info) Description 08/16/2022 Refill [facility] - Family Medicine [address] [place] [address] Colten Parra DO [address], [facility] [place] [address] Migraine, unspecified, not intractable, without status migrainosus [...] Visit [facility] [address] [place] [address] [place] [address] Сергей Lucas MD [address] [place] [address] documented as of this encounter [...] documented as of this encounter Care Teams Associate Professor Of Mathematics Relationship Specialty Start Date End Date Colten Parra DO [facility] [address] [facility] [address] PCP - General Family Medicine 04/03/22 documented as of this encounter
--- OUTSIDE RECORDS SUMMARY | 2024-11-26 10:22 | XMS_ITS | Encounter Summary ---
Author Organization [employer] tem Address [id number] [address] [place] [address] Care Team Providers Care Cement Sprayer Helper Name Role Phone Colten Parra DO Primary Care Provider +1- [phone] Reason for Visit * Reason Comments Med Refill Encounter Details Date Type Department Care Team (Late st Contact Info) Description 05/14/2022 Refill [facility] - Family Medicine [address] [place] [address] Colten Parra DO [address], [facility] [place] [id number] Migraine, unspecified, not intractable, without status migrainosus [...] appt. Can make it a wellness with BLENDER HELPER * Telephone Encounter - Elisabeth Patricia - 05/14/2022 12:47 PM EDT Scheduled documented in this encounter Plan of Treatment Upcoming Encounters Date Type Department Care Team (Late st Contact Info) Description 10/06/2025 1:15 PM EDT Office Visit [facility] [address] [place] [phone] Сергей Lucas MD [address] [place] [address] documented as of this encounter Goals Goal [...] migrainosus documented in this encounter Care Teams Cement Sprayer Helper Relationship Specialty Start Date End Date Colten Parra DO [address] [place] [address] PCP - General Family Medicine 04/03/22 documented as of this encounter
--- OUTSIDE RECORDS SUMMARY | 2024-11-26 10:22 | XMS_ITS | Encounter Summary ---
Author Organization [facility] Address [facility] [place]-[id number] [address] [place] [address] Care Team Providers Care Planer Tailer Name Role Phone ElisaColten figueroa Primary Care Provider +1- [phone] Encounter Details Date Type Department Care Team (Late st Contact Info) Description 06/14/2022 Orders Only [facility] - Family Medicine [address] [place] [address] Diandra Maddox, BELT TENDER-HALFWAY HOUSE COUNSELOR [address] [place] [address] Social History Tobacco Use Types Packs/Day Years [...] Office Visit [facility] [address] [place] [address] [place] [address] Сергей Lucas MD [address] [place] [address] documented as of this encounter Goals Goal [...] documented as of this encounter Care Teams Planer Tailer Relationship Specialty Start Date End Date Colten Parra DO [address] [place] [address] PCP - General Family Medicine 04/03/22 documented as of this encounter
--- OUTSIDE RECORDS SUMMARY | 2024-11-26 10:22 | XMS_ITS | Encounter Summary ---
Author Organization [employer] s tem Address [id number] [address] [place] [address] Care Team Providers Care Clay Miller Name Role Phone ElisaColten figueroa Raymond CARR Primary Care Provider [phone] Encounter Details Date Type Department Care Team (Late st Contact Info) Description 08/06/2023 [facility]phone [facility] [address] [place] [address] Jaqueline Warren CMA Social History Tobacco Use [...] ? * Telephone Encounter - Magda Uribe ADALBERTO Castle - 08/06/2023 1:38 PM EDT What does [...] Visit [facility] [address] [place] [address] [place] [address] Сергей Lucas MD [address] [place] [address] documented as of this encounter Goals Goal [...] documented as of this encounter Care Teams Clay Miller Relationship Specialty Start Date End Date Colten Parra DO [address], [place] [address] PCP - General Family Medicine 04/03/22 documented as of this encounter
--- OUTSIDE RECORDS SUMMARY | 2024-11-26 10:22 | XMS_ITS | Encounter Summary ---
Author Organization [employer] Address [id number] [address] [place] [address] Care Team Providers Care Rattlesnake Farmer Name Role Phone Colten Parra Primary Care Provider [phone] Encounter Details Date Type Department Care Team (Late st Contact Info) Description 11/15/2022 [facility]phone [facility] [address] [place] [address] Lizabeth Hernandez CMA Social History Tobacco Use [...] Office Visit [facility] [address] [place] [address] [place] [address] Сергей Lucas MD [address] [place] [address] documented as of this encounter Goals Goal [...] documented as of this encounter Care Teams Rattlesnake Farmer Relationship Specialty Start Date End Date Colten Parra DO [address] [facility], [facility] [place] [address] PCP - General Family Medicine 04/03/22 documented as of this encounter
--- OUTSIDE RECORDS SUMMARY | 2024-11-26 10:22 | XMS_ITS | Encounter Summary ---
Author Organization [facility] [employer] s [facility] Address [facility] [id number] [address] [place] [address] Care Team Providers Care Steam Hoist Operator Name Role Phone Colten Parra DO Primary Care Provider [phone]- [phone] Encounter Details Date Type Department Care Team (Late st Contact Info) Description 07/02/2022 Telephone [facility] Family Medicine [address] [place] [address] Colten Parra DO [address], [place] [address] Social History Tobacco Use Types Packs/Day Years [...] Visit [facility] [address] [place] [address] [place] [address] Сергей Lucas MD [address] [place] [address] documented as of this encounter Goals Goal [...] documented as of this encounter Care Teams Steam Hoist Operator Relationship Specialty Start Date End Date Colten Parra DO [address] [facility] [place] [address] PCP - General Family Medicine 04/03/22 documented as of this encounter
--- OUTSIDE RECORDS SUMMARY | 2024-11-26 10:22 | XMS_ITS | Encounter Summary ---
Author Organization [employer] s tem Address [facility] [place]-[id number] [address] [place] [address] Care Team Providers Care School Standards Coach Name Role Phone Colten Parra Primary Care Provider Encounter Details Date Type Department Care Team (Latest Contact Info) Description 11/18/2024 Travel Social History Tobacco Use Types Packs/Day Years [...] [address] [place] [address] Сергей Lucas MD [address] [place] [address] documented as of this encounter Goals Goal [...] documented as of this encounter Care Teams School Standards Coach Relationship Specialty Start Date End Date Colten Parra DO [address] [facility] [place] [address] PCP - General Family Medicine 04/03/22 documented as of this encounter
--- OUTSIDE RECORDS SUMMARY | 2024-11-26 10:22 | XMS_ITS | Encounter Summary ---
Author Organization [employer] s tem Address [facility]-[id number] [address] [place] [address] Care Team Providers Care Objects Conservator Name Role Phone ElisaColten figueroa Raymond CARR Primary Care Provider +1- [phone] Encounter Details Date Type Department Care Team (Late Contact Info) Description 11/16/2022 Orders Only [facility] Internal [facility] - Family Medicine [address] [place] [address] Nasir Richey [address] [place] [address] Positive colorectal cancer screening using Cologuard test [...] Visit [facility] [address] [place] [address] Сергей Lucas MD [address] [place], [place] [id number] documented as of this encounter Goals Goal [...] documented as of this encounter Care Teams Objects Conservator Relationship Specialty Start Date End Date Colten Parra DO [address], [place] [address] PCP - General Family Medicine 04/03/22 documented as of this encounter
--- OUTSIDE RECORDS SUMMARY | 2024-11-26 10:22 | XMS_ITS | Encounter Summary ---
Author Organization [employer] s tem Address [facility]-[id number] [address] [place] [address] Care Team Providers Care Custodial Services Manager Name Role Phone Colten Parra Primary Care Provider [phone]- [phone] Encounter Details Date Type Department Care Team (Late st Contact Info) Description 07/23/[address] [facility] Medicine [address] [place] [address] Lizabeth Hernandez CMA Social History Tobacco Use [...] Office Visit [facility] [address] [place] [address] [place] [address] Сергей Lucas MD [address] [place] [address] documented as of this encounter Goals [...] documented as of this encounter Care Teams Custodial Services Manager Relationship Specialty Start Date End Date Colten Parra DO [address] [facility] [place] [address] PCP - General Family Medicine 04/03/22 documented as of this encounter
--- OUTSIDE RECORDS SUMMARY | 2024-11-26 10:22 | XMS_ITS | Clinical Summary ---
Author Organization [employer] tem Address [facility][id number] [address] [place] [address] Care Team Providers Care Assistant Art Director Name Role Phone FidelColten Raymond CARR Primary Care Provider [phone] Allergies Active Allergy Reactions Criticality Noted Date Comments Amoxicillin Vomiting 08/21/2023 Fentanyl GI Disturbance 01/22/2024 Headaches, vomiting Isosorbide Mononitrate Headache High 01/06/2024 Prednisone Palpitations Low 08/21/2023 Medications lisinopril-hydr oCHLOROthiazide (PRINZIDE,ZESTO RETIC) 20-12.5 mg per tablet Take 1 tablet by mouth in the morning. 05/21/19 21 Active HYDROcodone-william taminophen (NORCO) 5-325 mg per tablet Take 1 tablet by mouth as needed in the morning and 1 tablet as needed in the evening. 03/15/19 23 Active baclofen (LIORESAL) 10 mg tablet Take 1 tablet (10 mg total) by mouth in the morning and 1 tablet (10 mg total) at noon and 1 tablet (10 mg total) before bedtime. 09/15/19 23 Active metoprolol tartrate (LOPRESSOR) 25 mg tablet TAKE 1 TABLET (25 MG) BY MOUTH IN THE MORNING AND AT BEDTIME 180 tablet 1 09/24/19 24 Active dextromethorpha n-guaiFENesin (ROBITUSSIN-DM) 10-100 mg/5 mL liquidIndicatio ns:Acute bronchitis, unspecified organism Take 5 mL by mouth every 12 (twelve) hours. 236 mL 12/06/19 24 Active albuterol (PROVENTIL,VENT ARISTEO) 2.5 mg /3 mL (0.083 %) nebulizer solutionIndicat ions:Acute bronchitis, unspecified organism Inhale 3 mL (2.5 mg total) by nebulization 4 (four) times a day. 75 mL 1 12/06/19 24 Active atorvastatin (LIPITOR) 80 mg tablet TAKE 1 TABLET (80 MG TOTAL) BY MOUTH IN THE MORNING 90 tablet 1 01/21/20 24 Active magnesium oxide (MAGOX) 400 mg tablet Take 1 tablet (400 mg total) by mouth in the morning and 1 tablet (400 mg total) before bedtime. 01/06/20 24 025 Active aspirin 81 mg Take 1 tablet (81 mg total) by mouth in the morning. Active amLODIPine (NORVASC) 5 mg tablet Take 1 tablet (5 mg total) by mouth in the morning. 01/06/20 24 025 Active divalproex (DEPAKOTE) 125 mg EC tabletIndicatio ns:Migraine, unspecified, not intractable, without status migrainosus Take 1 tablet (125 mg total) by mouth every morning. 90 tablet 09/08/19 25 Active finasteride (PROSCAR) 5 mg tabletIndicatio ns:Benign prostatic hyperplasia with urinary obstruction Take 1 tablet (5 mg total) by mouth in the morning. 90 tablet 3 11/04/19 25 Active tamsulosin (FLOMAX) 0.4 mg capsule Take 2 capsules (0.8 mg total) by mouth in the morning. 180 capsule 3 11/11/19 25 Active cyclobenzaprine (FLEXERIL) 10 mg tablet Take 1 tablet (10 mg total) by mouth 3 (three) times a day as needed for muscle spasms. Active lisinopriL (PRINIVIL,ZESTR IL) 20 mg tablet Take 1 tablet (20 mg total) by mouth in the morning. 08/22/19 25 026 Active finasteride (PROSCAR) 5 mg tabletIndicatio ns:Benign prostatic hyperplasia with urinary obstruction Take 1 tablet (5 mg total) by mouth in the morning. 90 tablet 3 03/19/19 25 025 Discontin ued(Reord er) tamsulosin (FLOMAX) 0.4 mg capsule Take 2 capsules (0.8 mg total) by mouth once daily. 180 capsule 3 04/23/19 25 025 Discontin ued(Reord er) Active Problems Problem Noted Date Diagnosed Date Enlarged prostate 08/21/2023 Lower urinary tract symptoms (LUTS) 07/09/2023 Benign prostatic hyperplasia with urinary obstru ction 07/04/2023 Overview (11/18/2024): Had DVT on affected leg of fracture [...] or hydronephrosis. Plan: Renal bladder ultrasound. Cystoscopy [facility] bladder solution. CMG/flow Urine for culture. Assessment & Plan (11/18/2024 2:22 PM EDT): PSA was less than 1 less than 2 years ago that is reasonable. Assessment & Plan (02/05/2024 2:56 PM EST): [...] months. Sooner p.r.n.. CAD (coronary atherosclerotic disease) Current every day smoker 04/02/2023 History of [...] Encounters Date Type Department Care Team Description 11/18/2024 2:15 PM EDT Office Visit [facility] [address] [facility] [place] [address] Сергей Lucas MD Benign prostatic hyperplasia with urinary obstruction (Primary Dx) 11/18/2024 Travel 11/09/2024 Refill [facility] [address] [place] [address] Iliana Coleman RMA 11/03/2024 Refill [facility] [address] [place] [phone] Iliana Coleman, SANDRA Benign prostatic hyperplasia with urinary obstruction 09/07/2024 Refill [facility] Internal Medicine - Family Medicine [address] [place] [address] Colten Parra, DO Migraine, unspecified, not intractable, without status migrainosus from Last 3 Months Immunizations Immunization Administration [...] 1 46.7 Started: 1978 Smokeless Tobacco: Never Tobacco Cessation:Ready [...] Pulse 80 11/18/2024 2:11 PM EDT Temperature 37.1 C (98.7 F) 12/06/2023 9:38 AM EDT Respiratory Rate 18 12/06/2023 9:38 AM EDT Oxygen Saturation 98% 12/06/2023 9:38 AM EDT Inhaled Oxygen Concentration - - Weight 130.2 kg (287 lb) 11/18/2024 2:11 PM EDT Height 188 cm (6' 2 ) 11/18/2024 2:11 PM EDT Body Mass Index 36.85 11/18/2024 2:11 PM EDT Plan of Treatment Upcoming Encounters Date Type Department Care Team (Late st Contact Info) Description 10/06/2025 1:15 PM EDT Office Visit [facility] [address] [place] [address] [place] [address] Сергей Lucas MD [address] [place] [address] Health Maintenance Due Date Last Done Comments Statin Use: Cardiovascular 1965 Tobacco Counseling 1965 Adult BMI Follow Up Plan 07/09/1983 DTaP,Tdap and Td Vaccines (1 - Tdap) 1984 Zoster (Shingles) Vaccine (1 of 2) 07/09/2015 Depression Screening 08/04/2024 08/05/2023 Influenza Vaccine 11/02/2024 11/03/2019, , 01/02/2019, Additional history exists Colon Cancer Screening 3 Flavio Hendricks 06/21/2025 06/21/2022 Adult BMI Screening 11/18/2025 11/18/2024 Tobacco Screening 11/18/2025 11/18/2024 Goals Goal Patient Goal Type Associated Problems [...] EDT Benign prostatic hyperplasia with urinary obstruction COLOGUARD NON-[facility] Routine 06/21/2022 8:00 AM EDT Encounter for colorectal cancer screening from Last 3 Months or Most Recently Relevant to Health Maintenance Results * Measure post void residual (11/18/2024 2:27 PM EDT) Volume 68 mL MANUALLY TRANSCRIBED RESULTS Сергей Lucas MD NURSING ASSESSMENTS Final Re sult MANUALLY TRANSCRIBED RESULTS * (ABNORMAL) Cologuard [facility] (06/21/2022 8:00 AM EDT) EXTERNAL COLOGUARD Positive( A) Negative 06/30/2022 3:36 AM EDT [facility] (CLIA #:[id number]) Comment: POSITIVE TEST RESULT. A positive Cologuard [...] (Katey Sanders al, N Engl J Med 2014;370(14):4146-9742.) Cologuard may produce a false negative or false positive result (no colorectal cancer or precancerous polyp present at colonoscopy follow up). A negative Cologuard test result does not guarantee the absence of CRC or advanced adenoma (pre-cancer). The current Cologuard screening interval is every 3 years. ([place] [employer] Society and U.S. Multi-Society Task Force). Cologuard performance data in a 10,000 patient pivotal study using colonoscopy as the reference method can be accessed at the following location: www.Informous/results. Additional description of the Cologuard test process, warnings and precautions can be found at www.cologuard.com. Stool specimen (specimen) Rectum structure / Unknown 06/21/2022 8:00 AM EDT 06/22/2022 3:16 PM EDT Diandra Maddox CIG[employer] HEAD PEGGER-STORE OPERATIONS ASSOCIATE LAB ORDERABLES Final Re sult [facility] (CLIA #:[id number]) [address] [place] [address], from Last 3 Months or Most Recently Relevant to Health Maintenance Insurance [employer] - GENERIC PLAN Advance Directives * Full Code (Latest Code Status on File) Date Activated Date Inactivated Comments 03/24/2022 9:21 AM 03/26/2022 5:36 PM Care Teams Assistant Art Director Relationship Specialty Start Date End Date Colten Parra DO [address] [facility] [place] [address] PCP - General Family Medicine 04/03/22
--- OUTSIDE RECORDS SUMMARY | 2024-11-26 10:22 | XMS_ITS | Encounter Summary ---
Author Organization [employer] tem Address [id number] [address] [place] [address] Care Team Providers Care Top Case Assembler Name Role Phone BetteColten lawton Primary Care Provider Encounter Details Date Type Department Care Team ([facility] Contact Info) Description 05/17/2022 [facility] [address] [place] [address] Andre Hand MD [address] [place] [address] Social History Tobacco Use Types Packs/Day Years [...] Upcoming Encounters Date Type Department Care Team ([facility] Contact Info) Description 10/06/2025 1:15 PM EDT Office Visit [facility] [address] [place] [address] [place] [address] Сергей Lucas MD [address] [place] [address] documented as of this encounter Goals Goal [...] 03/13/2022 us Not In System Ref Prov [place] [facility] Final Res ult * CT knee right with and without contrast (03/07/2022 2:21 PM EST) Anatomical Region Laterality Modality MSK, Lower Extremities, Knee, Patella, MSK Cover a Right Computed Tomography us Not In System Ref Prov IMG CT ORDERABLES Final R esult documented in this encounter Visit Diagnoses Not on filedocumented in this encounter Care Teams Top Case Assembler Relationship Specialty Start Date End Date Colten Parra DO [address] [place] [address] PCP - General Family Medicine 04/03/22 documented as of this encounter
--- OUTSIDE RECORDS SUMMARY | 2024-11-26 10:23 | XMS_ITS | Clinical Summary ---
Author Organization [facility] Address [address] [place] [address] Care Team Providers Care Marble Carver Name Role Phone Colten Parra DO Primary Care Provider [phone] Allergies No known active allergies Medications atorvastatin (Lipitor) 80 mg tablet Take 80 mg by mouth in the morning. 03/09/2022 Active HYDROcodone-william taminophen (Downing) 5-325 mg tablet Take 1 tablet by [...] FIT 06/22/2023 06/21/2022 COVID-19 Vaccine ( season) 2024 Influenza Vaccine (#1) 2024 0, 01/21/2019, 01/02/2019, [...] patient's age to complete this topic Insurance [facility] Care Teams Marble Carver Relationship Specialty Start Date End Date Fidel DO Colten PCP - General 05/08/22
--- OUTSIDE RECORDS SUMMARY | 2024-11-26 10:23 | XMS_ITS | Encounter Summary ---
Author Organization [facility] Address [address] [facility], [address] [place] [address] Care Team Providers Care Upholstery Tech Name Role Phone Kash Killian MD Primary Care Provider + Reason for Visit * Reason Comments Medication Refill Encounter Details Date Type Department Care Team (Late st Contact Info) Description 01/21/2019 Refill [facility] [address] [place] [address] Kash Killian MD [address] [place] [id number] Medication Refill Social History Tobacco Use Types [...] documented as of this encounter Care Teams Upholstery Tech Relationship Specialty Start Date End Date Kash Killian MD [address] [place] [address] PCP - General Family Medicine 05/03/20 documented as of this encounter
--- OUTSIDE RECORDS SUMMARY | 2024-11-26 10:23 | XMS_ITS | Encounter Summary ---
Author Organization [facility] tem Address [facility]-[id number] [address] [place] [address] Care Team Providers Care Soldering Machine Setter Name Role Phone Colten Parra Primary Care Provider [phone]- [phone] Encounter Details Date Type Department Care Team (Late Contact Info) Description 01/10/[address] [address] [place] [address] Ref Prov, [place] [address] Social History Tobacco Use Types Packs/Day Years [...] [facility] [address] [facility] [place] [address] Сергей Lucas MD [address] [place] [address] documented as of this encounter Goals Goal [...] documented as of this encounter Care Teams Soldering Machine Setter Relationship Specialty Start Date End Date Colten Parra DO [address], [facility] [place] [address] PCP - General Family Medicine 04/03/22 documented as of this encounter
--- OUTSIDE RECORDS SUMMARY | 2024-11-26 10:23 | XMS_ITS | Encounter Summary ---
Author Organization [facility] tem Address [id number] [address] [place] [address] Care Team Providers Care Food Assembler Kitchen Name Role Phone Colten Parra DO Primary Care Provider [phone]- [phone] Encounter Details Date Type Department Care Team (Late st Contact Info) Description 01/14/2024 Orders Only [facility] Internal Medicine - Family Medicine [address] [place] [address] Colten Parra DO [address], [place] [address] Social History Tobacco Use Types Packs/Day Years [...] Surgeons [address] [facility] [place] [address] Сергей Lucas MD [address] [place], [place] [id number] documented as of this encounter Goals Goal [...] documented as of this encounter Care Teams Food Assembler Kitchen Relationship Specialty Start Date End Date Colten Parra DO [address] [facility] [place] [address] PCP - General Family Medicine 04/03/22 documented as of this encounter
--- OUTSIDE RECORDS SUMMARY | 2024-11-26 10:23 | XMS_ITS | Continuity of Care Document ---
Author Organization [facility] Address [address] [place] [address] Phone Care Team Providers Care Film Composer Name Role Phone Colten Parra DO Primary Care Provider Encounters Date Type Department Care Team Description 08/21/[address] [address] Vanessa Ambriz LPN Error (VOID this visit) 08/21/2024 Travel 08/21/2024 9:45 AM EDT Office Visit [address] [address] Jean Claude Stacy MD Atherosclerosis of pala coronary artery of pala heart without angina pectoris; Medication course changed; Primary hypertension; Mixed hyperlipidemia; Palpitations; Current every day smoker; Sleep apnea with use of continuous positive airway pressure (CPAP); BMI 35.0-35.9,adult 08/17/2024 Scanned Document [facility] [address] [place] [address] Scanning, Generic Provider 03/24/[address] [address] Vanessa Ambriz LPN Primary hypertension; Mixed hyperlipidemia; Shortness of breath; Palpitations 03/16/[address] [address] Jean Claude Stacy MD Primary hypertension 03/08/2024 Refill [facility] [address] [place] [address] [address] [place] [phone] Jean Claude Stacy MD Primary hypertension; Palpitations 02/21/2024 Travel 02/21/2024 1:15 PM EST Office Visit [address] [place] [address] Jean Claude Stacy MD Shortness of breath; Encounter to discuss test results; History of PTCA; Mixed hyperlipidemia; Primary hypertension; Current every day smoker; BMI 37.0-37.9, adult; Medication course changed; Hypertension, unspecified type; Atherosclerosis of pala coronary artery of pala heart without angina pectoris; Other hyperlipidemia; Sleep apnea with use of continuous positive airway pressure (CPAP); History of ST elevation myocardial infarction (STEMI); BMI 35.0-35.9,adult 01/09/2024 Scanned Document [facility] [address] [place] [address] Scanning, Generic Provider 01/09/2024 Orders Only [facility] [address] [place] [address] Leonid Morrissey DO 01/07/2024 Telephone [facility] [address] [facility] [address] [place] [phone] Jean Claude Stacy MD 01/06/2024 Travel 01/06/2024 3:15 PM EST Office Visit [address] [address] Jean Claude Stacy MD Coronary artery disease involving pala coronary artery of pala heart with unstable angina pectoris (Primary Dx); [...] Travel 12/24/2023 3:00 PM EDT Ancillary Procedure [facility] [address] [facility] [address] [place] [address] Hypertension, unspecified type; Atherosclerosis of pala coronary artery of pala heart without angina pectoris; Current every day smoker; Other hyperlipidemia; Palpitations; Unstable angina pectoris (Multi); Sleep apnea with use of continuous positive airway pressure (CPAP); History of ST elevation myocardial infarction (STEMI); History of PTCA; Shortness of breath; Acute cough; BMI 35.0-35.9,adult 12/24/2023 2:30 PM EDT Ancillary Procedure [facility] [address] [address] Hypertension, unspecified type; Atherosclerosis of pala coronary artery of pala heart without angina pectoris; Current every day smoker; Other hyperlipidemia; Palpitations; Unstable angina pectoris (Multi); Sleep apnea with use of continuous positive airway pressure (CPAP); History of ST elevation myocardial infarction (STEMI); History of PTCA; Shortness of breath; Acute cough; BMI 35.0-35.9,adult; Chest pain, unspecified 12/24/2023 2:00 PM EDT Ancillary Procedure [facility] [address] [address] 12/24/2023 1:30 PM EDT Ancillary Procedure [facility] [address] [address] 12/24/2023 1:00 PM EDT Ancillary Procedure [facility] [address] [address] Primary hypertension (Primary Dx); Atherosclerosis of pala coronary artery of pala heart with stable angina pectoris; Current every day smoker 12/24/2023 12:30 PM EDT Ancillary Procedure [facility] [address] [address] 12/24/2023 12:00 PM EDT Ancillary Procedure [facility] [address] [address] Hypertension, unspecified type; Atherosclerosis of pala coronary artery of pala heart without angina pectoris; Current every day smoker; Other hyperlipidemia; Palpitations; Unstable angina pectoris (Multi); Sleep apnea with use of continuous positive airway pressure (CPAP); History of ST elevation myocardial infarction (STEMI); History of PTCA; Shortness of breath; Acute cough; BMI 35.0-35.9,adult 12/13/2023 Travel 12/13/2023 11:30 AM EDT Office Visit [facility] [address] [phone] Jose Cuevas MD Hypertension, unspecified type; Atherosclerosis of pala coronary artery of pala heart without angina pectoris; Current every day smoker; Other hyperlipidemia; Palpitations; Unstable angina pectoris (Multi); Sleep apnea with use of continuous positive airway pressure (CPAP); History of ST elevation myocardial infarction (STEMI); History of PTCA; Shortness of breath; Acute cough; BMI 35.0-35.9,adult 12/11/[address] [phone] Vanessa Ambriz LPN sooner OV 08/28/2023 Travel 08/28/2023 2:00 PM EDT Office Visit [address] [phone] Leonid Figueredo MD Atherosclerosis of pala coronary artery of pala heart without angina pectoris (Primary Dx); History of PTCA; Mixed hyperlipidemia; Primary hypertension; Current every day smoker; BMI 35.0-35.9,adult 04/02/[address] [phone] Sakshi Park MD 04/01/[address] [address] Leonid Figueredo MD Primary hypertension 11/26/2022 Legacy Encounter [facility] [address] Birdie Smith, [employer] REDEVELOPMENT SITE MANAGER-INFORMATION [employer]OC 03/08/2022 Legacy Encounter [facility] [address] [place] [address] Conversion, Touchworks 01/08/2022 Legacy Encounter [facility] [address] [place] [address] Conversion, Touchworks 10/19/2021 Legacy Encounter [facility] [address] [place] [address] Leonid Figueredo MD 10/19/2021 Legacy Encounter [facility] [address] Leonid Figueredo MD 08/28/2021 Legacy Encounter [facility] [address] [place] [address] Conversion, Touchworks 08/24/2021 Legacy Encounter [facility] [address] [place] [address] Conversion, Touchworks 08/23/2021 Legacy Encounter [facility] [address] [place] [address] Leonid Figueredo MD 06/13/2021 Legacy Encounter [facility] [address] [place] [address] Conversion, Touchworks 05/31/2021 Scanned Document [facility] [address] [place] [address] Conversion, Onbase 05/26/2021 Legacy Encounter [facility] [address] [place] [address] Leonid Figueredo MD 05/26/2021 Legacy Encounter [facility] [address] Leonid Figueredo MD 12/27/2020 Legacy Encounter [facility] [address] [place] [address] Kalie Lebron, [employer] REDEVELOPMENT SITE MANAGER-INFORMATION [employer] 12/27/2020 Legacy Encounter [facility] [address] Jean Claude Stacy MD 12/23/2020 Legacy Encounter [facility] [address] Jean Claude Stacy MD 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 11/30/2020 Scanned Document [facility] [address] [place] [address] Conversion, Onbase 11/29/2020 Scanned Document [facility] [address] [place] [address] Conversion, Onbase 11/21/2020 Scanned Document [facility] [address] [place] [address] Conversion, Onbase 11/20/2020 Scanned Document [facility] [address] [place] [address] Conversion, Onbase 11/18/2020 7:17 PM EDT - 11/20/2020 4:00 PM EDT Hospital Encounter [facility] [address] [address] MD ST elevation (STEMI) myocardial infarction involving other coronary artery of inferior wall (Multi) (Primary Dx) Discharge Disposition: Home 11/19/2020 Legacy Encounter [facility] [address] [place] [address] Jerry Bronson MD 11/19/2020 Scanned Document [facility] [address] [place] [address] Conversion, Onbase 11/18/2020 Scanned Document [facility] [address] [place] [address] Conversion, Onbase 11/18/2020 Scanned Document [facility] [address] [place] [address] Conversion, Onbase 11/18/2020 Legacy Encounter [facility] [address] [place] [address] Jerry Bronson MD 11/18/2020 Legacy Encounter [facility] [address] [place] [address] Jean Claude Stacy MD 11/18/2020 Legacy Encounter [facility] [address] [place] [address] Leia Steanrs, [employer] REDEVELOPMENT SITE MANAGER-INFORMATION [employer]OC 11/18/2020 Scanned Document [facility] [address] [place] [address] Conversion, Onbase 11/18/2020 Scanned Document [facility] [address] [place] [address] Conversion, Onbase 11/18/2020 Scanned Document [facility] [address] [place] [address] Conversion, Onbase 11/18/2020 Scanned Document [facility] [address] [place] [address] Conversion, Onbase 11/18/2020 Legacy Encounter [facility] [address] [place] [address] Jerry Brnoson MD 11/18/2020 Legacy Encounter [facility] [address] [place] [address] Conversion, Syngo Allergies Active Allergy Reactions Criticality Noted Date Comments Amoxicillin Nausea/vomiting 08/21/2023 Prednisone Palpitations Low 08/21/2023 Isosorbide Mononitrate Headache High 01/06/2024 Medications baclofen (Lioresal) 10 mg tablet Take 3 tablets (30 mg) by mouth once daily as needed for muscle spasms. 3 Active divalproex (Depakote) 125 mg EC tablet Take 1 tablet (125 mg) by mouth once daily. 3 Active HYDROcodone-acetami nophen ([place]) 5-325 mg tablet Take 1 tablet by mouth 2 times a day as needed. 4 Active tamsulosin (Flomax) 0.4 mg 24 hr capsule Take 1 capsule (0.4 mg) by mouth once daily. 4 Active finasteride (Proscar) 5 mg tablet Take 1 tablet (5 mg) by mouth once daily. 4 Active nitroglycerin (Nitrostat) 0.4 mg SL tabletIndications:H ypertension, unspecified type,Atherosclerosi s of pala coronary artery of pala heart without angina pectoris,Current every day smoker,Other [...] EC tabletIndications:H ypertension, unspecified type,Atherosclerosi s of pala coronary artery of pala heart without angina pectoris,Current every day smoker,Other [...] by mouth once daily. 30 tablet 11 11/22/2024 1:19 PM EDT 5 08/22/19 26 Active lisinopril 20 mg tabletIndications:P rimary hypertension Take 1 tablet (20 mg) by mouth once daily. 90 tablet 3 11/22/2024 1:19 PM EDT 5 08/22/19 26 Active atorvastatin (Lipitor) 80 [...] Mother Social History Smoking Status as of 11/26/2024 Tobacco Use Types Packs/Day Years Used Date [...] Description 02/22/2025 11:00 AM EST Office Visit [facility] [address] [facility] [address] [place] [address] Jean Claude Stacy MD [address] [facility] [address] [place] [address] Procedures Procedure Name Priority Date/Time Associated Diagnosis [...] PM EST NON-[facility] HIE ELECTROLYTES Routine 01/09/20 24 12:40 PM EST [facility] COMPLETE BLOOD COUNT AUTO DIFF Routine 01/09/2024 12:40 PM EST TRANSTHORACIC ECHO (TTE) COMPLETE WITH CONTRAST Routine 12/24/2023 3:31 PM EDT Hypertension, unspecified type Atherosclerosis of pala coronary artery of pala heart without angina pectoris Current every day smoker Other hyperlipidemia Palpitations Unstable angina pectoris (Multi) Sleep apnea with use of continuous positive airway pressure (CPAP) History of ST elevation myocardial infarction (STEMI) History of PTCA Shortness of breath Acute cough BMI 35.0-35.9,adult Chest pain, unspecified 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 - CHEMISTRY PHYSICS TEACHER, PHYSICIAN READ Routine 12/24/2023 3:08 PM EDT Hypertension, unspecified type Atherosclerosis of pala coronary artery of pala heart without angina pectoris Current every day smoker Other hyperlipidemia Palpitations Unstable angina pectoris (Multi) Sleep apnea with use of continuous positive airway pressure (CPAP) History of ST elevation myocardial infarction (STEMI) History of PTCA Shortness of breath Acute cough BMI 35.0-35.9,adult STRESS TEST, [place] W MYOCARDIAL PERFUSION SPECT (MULTI STUDY) Routine 12/24/2023 2:20 PM EDT Hypertension, unspecified type Atherosclerosis of pala coronary artery of pala heart without angina pectoris Current every day smoker Other hyperlipidemia Palpitations Unstable angina pectoris (Multi) Sleep apnea with use of continuous positive airway pressure (CPAP) History of ST elevation myocardial infarction (STEMI) History of PTCA Shortness of breath Acute cough BMI 35.0-35.9,adult ECG 12-LEAD Routine 12/13/2023 11:30 AM EDT Hypertension, unspecified type Atherosclerosis of pala coronary artery of pala heart without angina pectoris Current every day [...] is included. 01/09/2024 12:5 6 PM EST [facility] - 01/10/2024 11:17 AM EST [facility] [place] [address] [place] [address] Electrocardiograph Report Signed Patient: Ashok Doss MR#: [id number] : 1965 Acct:[id number] Age/Sex: 58 / M ADM Date: 01/09/24 Loc: Room: Type: [facility] Attending Dr: Arabella Morrissey DO Ordering Provider: [...] previous ECGs available Confirmed by JARVIS GARCIA [facility], JODIE ([id number]) on 01/10/2024 11:17:15 AM Referred By: Electronically Signed By: JODIE CASTANON MD [facility] Transcribed By: MUS Signed By Jodie Castanon MD, FACC 01/10/24 1117 Leonid Morrissey DO ECG ORDERABLES Final Resul t [address] [place] [address], [place] * (ABNORMAL) [facility] Complete Blood Count Auto Diff (01/09/2024 12:40 PM EST) [facility] White Blood Count 14.4(H) 4.1 - 10.5 10*3/uL [facility] NON-[facility] HIE Uncorrected WBC 14.4(H) 4.1 - 10.5 10*3/uL [facility] NON-[facility] HIE Red Blood Count 4.45 3.90 - 5.60 [facility] NON-[facility] HIE Hemoglobin 14.0 13.0 - 17.0 g/dL [facility] NON-[facility] HIE Hematocrit 40.9 38.8 - 50.0 % [facility] NON-[facility] HIE Mean Corpuscular Volume 92.0 83.5 - 101 fL [facility] NON[facility] H[facility] Mean Corpuscular Hemoglobin 31.4 27.5 - 35.2 pg [facility] NON-[facility] HIE Mean Corpuscular HGB Conc 34.1 32.5 - 35.6 g/dL [facility] NON-[facility] HIE Red Cell Distribution Width 13.9 12.0 - 14.8 % [facility] NON[facility] HIE Platelet Count 320 150 - 450 10*3/uL [facility] H[facility] Mean Platelet Volume 7.0 6.6 - 10.1 fL [facility] NON[facility] HIE Neutrophils % (Auto) 59.4 . % [facility] HIE Lymphocytes % (Auto) 26.8 . % [facility] Monocytes % (Auto) 9.9 . % [facility] H[facility] Eosinophils % (Auto) 2.7 . % [facility] H[facility] Basophils % (Auto) 1.2 . % [facility] HIE NRBC% 0.1 0 - 0.5 /100{WBC} [facility] NON-[facility] HIE Neutrophils # (Auto) 8.6(H) 1.8 - 7.7 10*3/uL [facility] HIE Lymphocytes # (Auto) 3.9 1.00 - 4.8 10*3/uL [facility] HIE Monocytes # (Auto) 1.4(H) 0.0 - 0.8 10*3/uL [facility] HIE Eosinophils # (Auto) 0.4 0.0 - 0.45 10*3/uL [facility] HIE Basophils # (Auto) 0.2 0.0 - 0.2 10*3/uL [facility] Comment:PERFORMED BY:[facility] [facility] CENTERValdezCherylMILANO, [place] [phone] MEDICAL DIRECTORJESUS RUBIO M.D. [facility] Lab/Micro- Blood specimen 01/09/2024 12:40 PM EST Leonid Morrissey LAB BLOOD ORDERABLES Final Result Performing Organization Address City/[facility]/ZIP Co de Phone Number [facility] [address] [place] [address], [facility] [address] [place] [phone] * NON-[facility] HIE Blood Urea Nitrogen (01/09/2024 12:40 PM EST) [facility] NONUH OHE Blood Urea Nitrogen 15 7 - 25 mg/dL [facility] Lab- Source, Unspecified 01/09/2024 12:40 PM EST Leonid Morrissey LAB BLOOD ORDERABLES Final Result Performing Organization Address City/[facility]/ZIP Co de Phone Number [facility] [address] [place] [phone], [facility] [address] [phone] * (ABNORMAL) [facility] HIE Lipid Panel (01/09/2024 12:40 PM EST) [facility] NON-[facility] HIE Cholesterol 103(L) 140 - 200 mg/dL [facility] Comment:Chol less than 200 m g/dl low risk Chol 201-239 mg/dl borderline risk Chol 240 mg/dl and greater high risk NON-[facility] HIE HDL Cholesterol 36 23 - 92 mg/dL [facility] Comment:HDL CHOL ATP-III CLA SSIFICATION Cardiovascular Risk HDL > or equal to 60 mg/dL LOW HDL < 40 mg/dL HIGH NON-[facility] HIE Triglyceride w/Reflex 117 0 - 149 mg/dL [facility] Comment:TRIG ATP III CLASSIF ICATION TRIG less than 150 mg/dL Normal TRIG 150-199 mg/dL Borderline high TRIG 200-500 mg/dL High TRIG greater than 500 mg/dL Very high Standard traceable to the Center for Disease Conrtrol and Prevention (CDC) test method. NON-[facility] HIE LDL Cholesterol,Calcula kayla 44 0 - 100 mg/dL [facility] Comment:LDL ATP III CLASSIFI CATION LDL less than 100 mg/dL Optimal LDL 100-129 mg/dL Near or above optimal LDL 130-159 mg/dL Borderline high LDL 160-189 mg/dL High LDL greater than 189 mg/dL Very high NON-[facility] HIE VLDL CHOLESTEROL 23 mg/dL [facility] NON-[facility] HIE Chol/HDL Ratio 2.9 <5.0 [facility] Comment:PERFORMED BY:[facility] [facility]IAL HOSPITALCherylMILANO, [place] [phone] MEDICAL DIRECTORJESUS RUBIO M.D. [facility] Lab- Source, Unspecified 01/09/2024 12:40 PM EST Leonid Morrissey DO LAB BLOOD ORDERABLES Final Result [facility] [address] [place] [address], [facility] [address] [place] [address] * NON-[facility] HIE Electrolytes (01/09/2024 12:40 PM EST) [facility] HIE Sodium 140 136 - 145 mmol/L [facility] NON-[facility] HIE Potassium 4.0 3.5 - 5.1 mmol/L [facility] NON-[facility] HIE Chloride 105 98 - 107 mmol/L [facility] NON-[facility] HIE Carbon Dioxide 26.6 21.0 - 31.0 mmol/L [facility] NON-[facility] HIE Anion Gap 12.4 6.0 - 15.0 [facility] Lab- Source, Unspecified 01/09/2024 12:40 PM EST Leonid Morrissey LAB BLOOD ORDERABLES Final Result Performing Organization Address [facility] Co de Phone Number [facility] [address] [place] [phone], [facility] [address] [place] [address] * NON-[facility] HIE Creatinine (01/09/2024 12:40 PM EST) [facility] HIE Creatinine 0.88 0.70 - 1.30 mg/dL [facility] NON-[facility] HIE ESTIMATED GFR >60.0 [facility] NON-[facility] HIE Creatinine Clr Calc Pharmacy 132.16 [facility] Lab- Source, Unspecified 01/09/2024 12:40 PM EST Leonid Morrissey LAB BLOOD ORDERABLES Final Result Performing Organization Address [facility] Co de Phone Number [facility] [address] [place] [address], [facility] [address] [place] [address] * NON-[facility] HIE Coagulation Profile (01/09/2024 12:40 PM EST) NON-[facility] HIE Prothrombin Time 11.8 9.0 - 12.9 s [facility] Comment:A hematocrit value g reater than 55% may lead to inaccurate results in coagulation testing. Patients having hematocrit values >55% require a special collection tube for coagulation studies. Please contact the laboratory at [phone] for redraw instructions. NON-[facility] HIE INR 1.0 [facility] Comment:INR Therapeutic Rang e A) Pre- and [...] Thromboplastin Time 30.9 25.1 - 36.5 s [facility] Comment:A hematocrit value g reater than 55% may lead to inaccurate results in coagulation testing. Patients having hematocrit values >55% require a special collection tube for coagulation studies. Please contact the laboratory at [phone] for redraw instructions.PERFORMED BY:[address] [address] [place], [place] [phone] MEDICAL DIRECTORJESUS RUBIO M.D. [facility] Lab- Plasma specimen 01/09/2024 12:40 PM EST Leonid Morrissey DO LAB BLOOD ORDERABLES Final Result Performing Organization Address City/[facility]/ZIP Co de Phone Number [facility] [address] [place] [address], [facility] [address] [place] [address] * NON-[facility] HIE B-Type Natriuretic Peptide (01/09/2024 12:40 PM EST) [facility] NON-[facility] HIE B-Type Natriuretic Peptide 61.0 5 - 100 pg/mL [facility] Comment:PERFORMED BY:[address] [address] [place], [place] [phone] MEDICAL DIRECTORJESUS RUBIO M.D. [facility] Lab- Source, Unspecified 01/09/2024 12:40 PM EST Jean Claude Stacy MD LAB BLOOD ORDERABLES Final Resul t Performing Organization Address City/[facility]/ZIP Co de Phone Number [facility] [address] [place] [address], [facility] [address] [place] [address] * TRANSTHORACIC ECHO (TTE) COMPLETE WITH CONTRAST [...] Narrative SYNGO - 12/26/2023 12:18 PM EDT [address], [address] [place] [address] TRANSTHORACIC ECHOCARDIOGRAM REPORT Patient Name: ASHOK Callahan Physician: [id number] Jose Cuevas MD, [facility] Study Date: 12/24/2023 Ordering Provider: [id number] JOSE CUEVAS MRN/PID: [id number] Fellow: Nurse: Ivonne Gonzalez RN Date of /Age: 5 1965 / 58 years Diplomatic Interpreter/Translator: Latanya Yadav RDCS, RT(R), RDMS, RVT Gender: M Additional Staff: Height: 187.96 cm Admit Date: Weight: 129.73 kg Admission Status: Outpatient BSA / BMI: 2.53 m2 / 36.72 Department Location: [facility] Heart kg/m2 [place] Study Type: TRANSTHORACIC ECHO (TTE) COMPLETE Diagnosis/ICD: Chest pain, unspecified-R07.9; Palpitations-R00.2 Indication: Chest pain Palpitations CPT Codes: Echo Complete w Full Doppler-[id number] Patient History: Smoker: Current. Pertinent History: CAD, [...] Poli: 1.10 PulmV Sys Poli: 69.00 cm/s [id number] Jose Cuevas MD, [facility] Electronically signed on 12/26/2023 at 12:18:27 PM Final Procedure Note Jose Cuevas MD - 12/26/[address], [address] [place] [address] TRANSTHORACIC ECHOCARDIOGRAM REPORT Patient Name: ASHOK Callahan Physician: Viet Truong [facility] Study Date: 12/24/2023 Ordering Provider: [id number] SABA CUEVAS MRN/PID: [id number] Fellow: Nurse: Ivonne Coleman Date of /Age: 5 1965 / 58 years Diplomatic Interpreter/Translator: Samir ISBELL, RT(R),RDMS, RVT Gender: M Additional Staff: Height: 187.96 cm Admit Date: Weight: 129.73 kg Admission Status: Outpatient BSA / BMI: 2.53 m2 / 36.72 Department Location: [facility]/[address] Study Type: TRANSTHORACIC ECHO (TTE) COMPLETE Diagnosis/ICD: Chest pain, unspecified-R07.9; Palpitations-R00.2 Indication: Chest pain Palpitations CPT Codes: Echo Complete w Full Doppler-09761 Patient History: Smoker: Current. Pertinent History: CAD, [...] Poli: 1.10 PulmV Sys Poli: 69.00 cm/s [id number] Jose Cuevas MD, [facility] Electronically signed on 12/26/2023 at 12:18:27 PM Final Jose Cuevas MD CV ECHO PROCEDURES Final Result SYNGO * 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 - CHEMISTRY PHYSICS TEACHER, PHYSICIAN READ (12/24/2023 3:08 PM EDT) Impressions Jose Cuevas MD - 01/05/2024 7:31 PM EST Abnormal 48-hour Holter monitor. Predominant sinus rhythm with normal heart rate variability. 4 beat short mark of paroxysmal atrial tachycardia only. No atrial fibrillation. No ventricular tachycardia. No symptoms or activity provided. COMMENTS: Clinical correlation is advised. Jose Cuevas MD [facility] Cardiology Narrative Jose Cuevas MD - 01/05/2024 [...] Jose Cuevas 12/24/2023 5:13 PM Dictation workstation: [id number] Narrative 12/24/2023 5:13 PM EDT Interpreted By: Jose Cuevas and Christo Dennis STUDY: MYOCARDIAL PERFUSION STRESS TEST WITH LEXISCAN Performing facility: [facility] at [address] Provider: Jose Cuevas MD, FACC PCP: Colten Parra DO Supervising provider: Jose Cuevas MD, FACC INDICATION: Hypertension, unspecified type; Atherosclerosis of pala coronary artery of pala heart without angina pectoris; Current every day [...] 2020-RCA. COMPARISON: Previous GXT ONLY testing completed [id number], NON DIAGNOSTIC at [facility]. ACCESSION NUMBER(S): [id number] ORDERING CLINICIAN: JOSE CUEVAS TECHNIQUE: ONE DAY [...] PERFUSION STRESS TEST WITH LEXISCAN Performing facility: [facility] at [address] Provider: Jose Cuevas MD, FACC PCP: Colten Parra DO Supervising provider: Jose [facility]uevas MD, [facility] INDICATION: Hypertension, unspecified type; Atherosclerosis of pala coronary artery of pala heart without angina pectoris; Current every day [...] 2020-RCA. COMPARISON: Previous GXT ONLY testing completed [id number], NON DIAGNOSTIC at [facility]. ACCESSION NUMBER(S): [id number] ORDERING CLINICIAN: JOSE CUEVAS TECHNIQUE: ONE DAY [...] Jose Cuevas 12/24/2023 5:13 PM Dictation workstation: [id number] Jose Cuevas MD CV STRESS PROCEDURES Sarah [...] Final Resul t * Echocardiogram (12/23/2020) 12/23/2020 [facility] RADIOLOGY SYSTEM - 12/23/2020 12:00 AM EDT [address], [address], [place] [address] TRANSTHORACIC ECHOCARDIOGRAM REPORT Patient Name: ASHOK DOSS Reading Physician: [id number] Antony Pena MD, [facility] Study Date: 12/23/2020 Referring Physician: [id number] JEAN CLAUDE STACY MRN/PID: [id number] PCP: Colten Parra MD Accession/Order#: [id number] Department Location: [facility] Date of : 1965 Fellow: Gender: M Nurse: Admit Date: Diplomatic Interpreter/Translator: Latanya Yadav RDCS, RT(R), RDMS, RVT Height: 187.96 cm CC Report to: Weight: 119.75 kg Study Type: Echocardiogram BSA: 2.45 m2 Diagnosis/ICD: I25.10-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; I21.19-ST elevation (STEMI) myocardial infarction involving other coronary artery of inferior wall Indication: HTN PTCA Procedure/CPT: Echo Complete w Full Doppler-55462 Study Detail: The following Echo studies were [...] 0.8 m/s (0.6-0.9m/s) PV Max P.5 mmHg [id number] Antony Pena MD, [facility] Electronically signed on 12/23/2020 at 11:56:24 AM Final Procedure Note Conversion, Syngo - 04/06/[address], [address] [place] [address] TRANSTHORACIC ECHOCARDIOGRAM REPORT Patient Name: ASHOK Callahan Physician: [id number] Antony Edwards FACC Study Date: 12/23/2020 Referring Physician: [id number] STACY MRN/PID: [id number] PCP: Colten Parra MD Accession/Order#: [id number] Department Location: [facility] Date of : 1965 Fellow: Gender: M Nurse: Admit Date: Diplomatic Interpreter/Translator: Latanya Boyd, RT(R), RDMS, RVT Height: 187.96 cm CC Report to: Weight: 119.75 kg Study Type: Echocardiogram BSA: 2.45 m2 Diagnosis/ICD: 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 us Onbase Conversion CV STRESS PROCEDURES Final Res ult * Cardiac Stress Test (12/23/2020) 12/23/2020 Narrative [facility] RADIOLOGY SYSTEM - 12/23/2020 12:00 AM EDT [address], [address] [place] [address] Exercise Stress Test Patient Name: ASHOK DOSS Ordering Physician: [id number] Stacy MD Study Date: 12/23/2020 Reading Physician: [id number] Pena MD, [facility] MRN/PID: [id number] Supervising Physician: Accession/Order#: [id number] Referring Physician: Sheridan STACY Date of : 1965 PCP: Gender: M Fellow: Height: 187.96 cm Nurse: Frida Dewey RN Weight: 119.75 kg Diplomatic Interpreter/Translator: N/A BSA: 2.45 m2 Technologist: BMI: 33.90 kg/m2 Additional Staff: Age: 55 years cc report to: Patient Location: [facility] cc report to: [id number] Jean Claude Stacy MD Study Type: Cardiac Stress Test Diagnosis/ICD: I25.10-Atherosclerotic heart disease; I21.19-ST elevation (STEMI) myocardial infarction involving other coronary artery of inferior wall Indication: CAD, INF. IN Procedure/CPT: Stress Test Interpretation-60894; Stress Test Supervision-[id number] Falls Risk: Patient Performance: The patient exercised [...] of stress was achieved. Sunil Pena MD, FACC Electronically signed on 12/23/2020 at 5:13:30 PM Final Procedure Note Conversion, Syngo - 04/06/[address], [place] [address] Exercise Stress Test Patient Name: ASHOK DOSS Ordering Physician: Lisa Stacy MD Study Date: 12/23/2020 Reading Physician: King Pena MD,FACC MRN/PID: [id number] Supervising Physician: Accession/Order#: [id number] Referring Physician: LISA STACY Date of : 1965 PCP: Gender: M Fellow: Height: 187.96 cm Nurse: Maribel GOODMAN Weight: 119.75 kg Diplomatic Interpreter/Translator: N/A BSA: 2.45 m2 Technologist: BMI: 33.90 kg/m2 Additional Staff: Age: 55 years cc report to: Patient Location: [facility] cc report to: Lisa Peña Stacy MD Study Type: Cardiac Stress Test Diagnosis/ICD: I25.10-Atherosclerotic heart disease; I21.19-ST elevation(STEMI) myocardial infarction involving other coronary artery ofinferior wall Indication: CAD, INF. IN Procedure/CPT: Stress Test Interpretation-06792; Stress TestSupervision-[id number] Falls Risk: Patient Performance: The patient exercised [...] The inadequate level of stress was achieved. [id number] Antony Pena MD, FACC Electronically signed on 12/23/2020 at 5:13:30 PM Final us Syngo Conversion CV STRESS PROCEDURES Final Resu lt [facility] [address] [place] [address], * ELECTROCARDIOGRAM RHYTHM STRIP (11/29/2020) Only the most recent of2 resultswithin the time period is included. Narrative 11/29/2020 Ordered by an unspecified provider. us Onbase Conversion ECG ORDERABLES Final Result * (ABNORMAL) Troponin I (11/19/2020 9:03 PM EDT) Only the most recent of5 resultswithin the time period is included. Troponin I 10.69(HH) 0.00 - 0.03 ng/mL [facility] Comment: LESS THAN 0.04 NG/ML: NEGATIVE [...] performed using different testing methodology at [facility] than at other [facility]. Direct result comparisons should only be made within the same method. 21:43 11/19/2020. Called- RB to Shelia GOODMAN , 11/19/2020 21:43 11/19/2020 9:03 PM EDT 11/19/2020 9:06 PM EDT us Jean Claude Stacy MD LAB BLOOD ORDERABLES Final Resul t [facility] * Heparin Assay (11/19/2020 2:38 PM EDT) Only the most recent of3 resultswithin the time period is included. HEPARIN UNFRACTIONATED 0.2 IU/mL [facility] Comment: The therapeutic reference range for UFH may be either 0.3-0.6 IU/mL or 0.3-0.7 IU/mL based on the clinical setting for anticoagulant therapy and the associated nomogram used. For heparin dosing guidelines based on clinical scenario and Heparin Assay results, please refer to local Pharmacy and the [facility] Guidelines for Anticoagulation therapy available on the [facility] intranet at: [email or web address] 11/19/2020 2:38 PM EDT 11/19/2020 2:40 PM EDT Jean Claude Stacy MD LAB BLOOD ORDERABLES Final Resul t Performing Organization Address City/[facility]/ZIP Co de Phone Number [facility] * (ABNORMAL) CBC (11/19/2020 5:23 AM EDT) Only the most recent of2 resultswithin the time period is included. WBC 22.9(H) 4.4 - 11.3 x10E9/L [facility] RBC 4.42(L) 4.50 - 5.90 x10E12/L [facility] Hemoglobin 13.5 13.5 - 17.5 g/dL [facility] Hematocrit 41.2 41.0 - 52.0 % [facility] MCV 93 80 - 100 fL [facility] MCHC 32.8 32.0 - 36.0 g/dL [facility] Platelets 333 150 - 450 x10E9/L [facility] RDW 13.3 11.5 - 14.5 % [facility] 11/19/2020 5:23 AM EDT 11/19/2020 5:28 AM EDT Leia Stearns [employer] REDEVELOPMENT SITE MANAGER[employer]INFORMATION [employer] LAB BLOOD ORDERABLES F inal Result Performing Organization Address City/[facility] Co de Phone Number [facility] * Magnesium (11/19/2020 5:23 AM EDT) Pathologist [facility] Magnesium 1.80 1.60 - 2.40 mg/dL [facility] 11/19/2020 5:23 AM EDT 11/19/2020 5:28 AM EDT Leia Stearns [employer]OWN[employer]EVELOP[employer] SITE MANAGER[employer]FORMATION [employer] LAB BLOOD ORDERABLES F inal Result Performing Organization Address City/[facility]/ZIP Co de Phone Number [facility] * (ABNORMAL) Basic Metabolic Panel (11/19/2020 5:23 AM EDT) Glucose 115(H) 74 - 99 mg/dL [facility] Sodium 140 136 - 145 mmol/L [facility] Potassium 3.8 3.5 - 5.3 mmol/L [facility] Chloride 109(H) 98 - 107 mmol/L [facility] Bicarbonate 23 21 - 32 mmol/L [facility] Anion Gap 12 10 - 20 mmol/L [facility] Urea Nitrogen 20 6 - 23 mg/dL [facility] Creatinine 0.83 0.50 - 1.30 mg/dL [facility] GLOMERULAR FILTRATION RATE-NON >60 >60 mL/min/1.7 3m2 [facility] GLOMERULAR FILTRATION RATE- >60 >60 mL/min/1.7 2 [facility] Comment: CALCULATIONS OF ESTIMATED GFR ARE PERFORMED USING THE MDRD STUDY EQUATION FOR THE IDMS-TRACEABLE CREATININE METHODS. CLIN CHEM 2007;53:766-72 Calcium 8.4(L) 8.6 - 10.3 mg/dL [facility] 11/19/2020 5:23 AM EDT 11/19/2020 5:28 AM EDT us Leia Stearns APRN-INFORMATION ASSOC LAB BLOOD ORDERABLES F inal Result Performing Organization Address City/[facility]/ZIP Co de Phone Number [facility] * aPTT (11/19/2020 12:53 AM EDT) aPTT 28 25 - 35 sec [facility] Comment: THE APTT IS NO LONGER USED FOR MONITORING UNFRACTIONATED HEPARIN THERAPY. FOR MONITORING HEPARIN THERAPY, USE THE HEPARIN ASSAY. 11/19/2020 12:5 3 AM EDT 11/19/2020 1:00 AM EDT us Jerry Bronson MD LAB BLOOD ORDERABLES Final Re sult [facility] * Protime-INR (11/19/2020 12:53 AM EDT) Protime 12.8 10.1 - 13.3 sec [facility] INR 1.1 0.9 - 1.1 [facility] 11/19/2020 12:5 3 AM EDT 11/19/2020 1:00 AM EDT Jerry Bronson MD LAB BLOOD ORDERABLES Final Re sult Performing Organization Address [facility] Co de Phone Number [facility] * (ABNORMAL) ACTIVATED CLOTTING TIME LOW (11/18/2020 7:41 PM EDT) Activated Clotting Time POC Low Range 294(H) 89 - 169 SECONDS [facility] Comment: Note new reference range as of 06/06/2018. Target ACT range will vary based on the patient population, clinical status, and surgical intervention occurring. 11/18/2020 7:41 PM EDT 11/21/2020 6:18 AM EDT Jean Claude Stacy MD LAB POINT OF CARE TE ST DOCKED DEVICE UNSOLICITED RESULTS Final Result Performing Organization Address [facility] de Phone Number [facility] * (ABNORMAL) ACTIVATED CLOTTING TIME LOW (11/18/2020 7:24 PM EDT) Activated Clotting Time POC Low Range 207(H) 89 - 169 SECONDS [facility] Comment: Note new reference range as of 06/06/2018. Target ACT range will vary based on the patient population, clinical status, and surgical intervention occurring. 11/18/2020 7:24 PM EDT 11/21/2020 6:18 AM EDT us Jean Claude Stacy MD LAB POINT OF CARE TE ST DOCKED DEVICE UNSOLICITED RESULTS Final Result Performing Organization Address [facility] Co de Phone Number [facility] * XR CHEST 1 VIEW (11/18/2020 7:19 PM EDT) Anatomical Region Laterality Modality Chest Radiographic Eufemia ging Narrative 11/18/2020 7:40 PM EDT STUDY: Chest Radiograph; 11/18/2020 7:22 PM. INDICATION: Concern for dissection, chest pain. COMPARISON: None Available. ACCESSION NUMBER(S): [id number] ORDERING CLINICIAN: JERRY BRONSON MD TECHNIQUE: Frontal chest was obtained at 1919 hours. FINDINGS: CARDIOMEDIASTINAL SILHOUETTE: Cardiomediastinal silhouette is normal in size and configuration. LUNGS: Lungs are clear. ABDOMEN: No remarkable upper abdominal findings. BONES: No acute osseous changes. IMPRESSION: No acute cardiopulmonary process seen. Signed by Kaden Griffiths MD Procedure Note Kaden Griffiths MD - 04/16/2022 STUDY: Chest Radiograph; 11/18/2020 7:22 PM. INDICATION: Concern for dissection, chest pain. COMPARISON: None Available. ACCESSION NUMBER(S): [id number] ORDERING CLINICIAN: JERRY BRONSON MD TECHNIQUE: Frontal [...] EDT) SARS-CoV-2 Result NOT DETECTED Not Detected [facility] Comment: . This test has received FDA Emergency Use Authorization (EUA) and has been verified by [facility]. This test is only authorized for the duration of time that circumstances exist to justify the authorization of the emergency use of in vitro diagnostic tests for the detection of SARS-CoV-2 virus and/or diagnosis of COVID-19 infection under section 564(b)(1) of the Act, 21 U.S.C. 360bbb-3(b)(1), unless the authorization is terminated or revoked sooner. [facility] is certified under CLIA-88 as qualified to perform high complexity testing. Testing is performed in the [facility] laboratory located at [address] [place] [address]. SARS-CoV-2/Flu/RSV Multiplex Test: Fact sheet for providers: https://www.fda.gov/media/214330/download Fact sheet for patients: https://www.fda.gov/media/041043/download 11/18/2020 7:18 PM EDT 11/18/2020 7:18 PM EDT Jerry Bronson MD LAB MOLECULAR DIAGNOSTICS ORD ERABLES Final Result Performing Organization Address [facility]/ZIP Co de Phone Number [facility] * B-Type Natriuretic Peptide (11/18/2020 7:17 PM EDT) Pathologist [facility] BNP 33 0 - 99 pg/mL [facility] Comment: . <100 pg/mL - Heart failure unlikely 100-299 pg/mL - Intermediate probability of acute heart . failure exacerbation. Correlate with clinical . context and patient history. >=300 pg/mL - Heart Failure likely. Correlate with clinical . context and patient history. BNP testing is performed using different testing methodology at [facility] than at other [facility]. Direct result comparisons should only be made within the same method. 11/18/2020 7:17 PM EDT 11/18/2020 7:17 PM EDT Jerry Bronson MD LAB BLOOD ORDERABLES Final Re sult [facility] * (ABNORMAL) Comprehensive Metabolic Panel (11/18/2020 7:17 PM EDT) Pathologist [facility] Glucose 113(H) 74 - 99 mg/dL [facility] Sodium 143 136 - 145 mmol/L [facility] Potassium 3.8 3.5 - 5.3 mmol/L [facility] Chloride 107 98 - 107 mmol/L [facility] Bicarbonate 28 21 - 32 mmol/L [facility] Anion Gap 12 10 - 20 mmol/L [facility] Urea Nitrogen 19 6 - 23 mg/dL [facility] Creatinine 1.12 0.50 - 1.30 mg/dL [facility] GLOMERULAR FILTRATION RATE-NON >60 >60 mL/min/1.7 3m2 [facility] GLOMERULAR FILTRATION RATE- >60 >60 mL/min/1.7 3m2 [facility] Comment: CALCULATIONS OF ESTIMATED GFR ARE PERFORMED USING THE MDRD STUDY EQUATION FOR THE IDMS-TRACEABLE CREATININE METHODS. CLIN CHEM 2007;53:766-72 Calcium 9.4 8.6 - 10.3 mg/dL [facility] Albumin 4.2 3.4 - 5.0 g/dL [facility] Alkaline Phosphatase 74 33 - 120 U/L [facility] Total Protein 7.0 6.4 - 8.2 g/dL [facility] AST 15 9 - 39 U/L [facility] Total Bilirubin 0.3 0.0 - 1.2 mg/dL [facility] ALT (SGPT) 19 10 - 52 U/L [facility] Comment: Patients treated with Sulfasalazine may generate falsely decreased results for ALT. 11/18/2020 7:17 PM EDT 11/18/2020 7:17 PM EDT us Jerry Bronson MD LAB BLOOD ORDERABLES Final Re sult [facility] * OUTSIDE IMAGING SCAN (11/18/2020) Anatomical Region Laterality Modality Other Narrative 11/18/2020 Ordered by an unspecified provider. us Onbase Conversion OUTSIDE SCAN Final Result * Adult Cath (11/18/2020) 11/18/2020 Narrative [facility] RADIOLOGY [facility] - 11/18/2020 12:00 AM EDT [facility], [employer] [address] [place] [address] Cardiovascular Catheterization Report Patient Name: Ashok Doss Performing Physician: Sheridan Jean Claude Stacy MD Study Date: 11/18/2020 Verifying Physician: Sheridan Jean Claude Stacy MD MRN/PID: [id number] Analytics Director: Accession/Order#: [id number] Referring Physician: [id number] José Miguel Posey MD Date of : [...] a modified Seldinger technique. Subsequently a 6 Niuean sheath was placed in the right femoral [...] less than 10% distal stenosis. First septal certified cytotechnologist is moderately large and has 0% stenosis. [...] Left Heart Cath (visualization of coronaries) and LV-72597; Moderate Sedation Services initial 15 minutes patient >5 years-29467; Moderate Sedation Services 1st additional 15 minutes patient >5 years-53646; Moderate Sedation Services 2nd additional 15 minutes patient >5 years-12911; Angiography, Extremity,uni,S&I (PER)-91755; Angioplasty, single Left Anterior Descending major Artery/branch (PCI)-31818. ICD 10 Codes: I21.02-ST elevation (STEMI) myocardial infarction involving left anterior descending coronary artery [id number] Jean Claude Stacy MD Performing Physician cc Report to: [id number] José Miguel Posey MD cc Report to: [id number] Stacy MD Final Procedure Note Conversion, Syngo - 04/06/2022 [facility], [employer] [address] [place] [address] Cardiovascular Catheterization Report Patient Name: Ashok Doss Performing Physician: Sheridan Patton Study Date: 11/18/2020 Verifying Physician: Sheridan Patton MRN/PID: [id number] Analytics Director: Accession/Order#: [id number] Referring Physician: [id number] Garrett Date of : 1965 Referring Physician: [...] No. CTA performed: No. Agatston accessed: No. LVEFAssessed: Yes. Procedure Description: After [...] and lessthan 10% distal stenosis. First septal certified cytotechnologist is moderately large andhas 0% stenosis. First [...] Loss: Estimated blood loss during the procedure [id number] [id number]. Specimens Removed: Number of specimen(s) removed: [...] Left Heart Cath (visualization of coronaries) and LV-37592; ModerateSedation Services initial 15 minutes patient >5 years-91519; ModerateSedation Services 1st additional 15 minutes patient >5 years-58999;Moderate Sedation Services 2nd additional 15 minutes patient >5years-48359; Angiography, Extremity,uni,S&I (PER)-37607; Angioplasty,single Left Anterior Descending major Artery/branch (PCI)-11736.LD ICD 10 Codes: I21.02-ST elevation (STEMI) myocardial infarction involving left anteriordescending coronary artery [id number] Jean Claude Stacy MD Performing Physician cc Report to: [id number] José Miguel Posey MD cc Report to: [id number] Jean Claude Stacy MD Final us Syngo Conversion CV CARDIAC CATH PROCEDURES Sarah l Result [facility] [place] [address], Visit Diagnoses Diagnosis Start Date ST elevation (STEMI) myocardial infarction involving other coronary artery of inferior wall (Multi) 11/18/2020 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 12/23/2020 Primary hypertension Unspecified essential hypertension 04/01/2023 Atherosclerosis of pala coronary artery of pala heart without angina pectoris 08/28/2023 History of PTCA Postsurgical percutaneous transluminal coronary angioplasty status 08/28/2023 Mixed hyperlipidemia 08/28/2023 Primary hypertension Unspecified essential hypertension 08/28/2023 Current every day smoker 08/28/2023 BMI 35.0-35.9,adult 08/28/2023 Hypertension, unspecified type 12/13/2023 Atherosclerosis of pala coronary artery of pala heart without angina pectoris 12/13/2023 Current every [...] 12/13/2023 Hypertension, unspecified type 12/24/2023 Atherosclerosis of pala coronary artery of pala heart without angina pectoris 12/24/2023 Current every [...] 12/24/2023 Hypertension, unspecified type 12/24/2023 Atherosclerosis of pala coronary artery of pala heart without angina pectoris 12/24/2023 Current every [...] hypertension Unspecified essential hypertension 12/24/2023 Atherosclerosis of pala coronary artery of pala heart with stable angina pectoris 12/24/2023 Current every day smoker 12/24/2023 Hypertension, unspecified type 12/24/2023 Atherosclerosis of pala coronary artery of pala heart without angina pectoris 12/24/2023 Current every [...] course changed 01/06/2024 Coronary artery disease involving pala coronary artery of pala heart with unstable angina pectoris 01/06/2024 Chest [...] 02/21/2024 Hypertension, unspecified type 02/21/2024 Atherosclerosis of pala coronary artery of pala heart without angina pectoris 02/21/2024 Other hyperlipidemia 02/21/2024 Sleep apnea with use of continuous positive airway pressure (CPAP) 02/21/[address] elevation myocardial infarction (STEMI) 02/21/2024 BMI 35.0-35.9,adult 02/21/2024 Primary hypertension Unspecified essential hypertension 03/08/2024 Palpitations 03/08/2024 Primary hypertension Unspecified essential hypertension 03/16/2024 Primary hypertension Unspecified essential hypertension 03/24/2024 Mixed hyperlipidemia 03/24/2024 Shortness of breath 03/24/2024 Palpitations 03/24/2024 Atherosclerosis of pala coronary artery of pala heart without angina pectoris 08/21/2024 Medication course changed 08/21/2024 Primary hypertension Unspecified essential hypertension 08/21/2024 Mixed hyperlipidemia 08/21/2024 Palpitations 08/21/2024 Current every day smoker 08/21/2024 Sleep apnea with use of continuous positive airway pressure (CPAP) 08/21/2024 BMI 35.0-35.9,adult 08/21/2024 Care Teams Film Composer Relationship Specialty Start Date End Date Colten Parra DO PCP - General 12/23/20
--- OUTSIDE RECORDS SUMMARY | 2024-11-26 10:23 | XMS_ITS | Encounter Summary ---
Author Organization [facility] Address [address] [place] [address] Phone Care Team Providers Care Legal Aid Name Role Phone Colten Parra DO Primary Care Provider Encounter Details Date Type Department Care Team (Late st Contact Info) Description 08/17/2024 Scanned Document [facility] [address] [place] [phone] Scanning, Generic Provider Social History Tobacco Use [...] Description 02/22/2025 11:00 AM EST Office Visit [facility] [address] [facility] [address] [place] [address] Rachel Stacy MD [address] [facility] [address] [place] [address] documented as of this encounter Procedures Procedure Name Priority Date/Time Associated Diagnosis Comments OUTSIDE LAB SCAN 08/17/2024 documented in this encounter Results * OUTSIDE LAB SCAN (08/17/2024) Narrative 08/17/2024 Ordered by an unspecified provider. us Generic Provider Scanning OUTSIDE SCAN Final Result documented in this encounter Visit Diagnoses Not on filedocumented in this encounter Care Teams Legal Aid Relationship Specialty Start Date End Date Colten Parra DO PCP - General 12/23/20 documented as of this encounter
--- OUTSIDE RECORDS SUMMARY | 2024-11-26 10:23 | XMS_ITS | Clinical Summary ---
Author Organization [facility] Address [address] [facility], [address] [place] [address] Care Team Providers Care Military Nurse Name Role Phone Kash Killian MD Primary [...] Plan of Treatment Not on file Insurance [place] [employer] Member Subscriber Plan / Payer (Ef fective 2024-Present) Name:Dale Belcher Relation to Subscriber:Self Name:Dale Belcher Payer ID:[id number] (NAIC) Type:Not on file Address: [address] Member Subscriber Plan / Payer (Ef fective 2024-Present) Name:Dale Belcher Relation to Subscriber:Self Name:Dale Belcher Payer ID:[id number] (NAIC) Type:Not on file Address: [address] [facility] Care Teams Military Nurse Relationship Specialty Start Date End Date Kash Killian MD [address] [place] [address] PCP - General Family Medicine 05/03/20
--- OUTSIDE RECORDS SUMMARY | 2024-11-26 10:23 | XMS_ITS | Encounter Summary ---
Author Organization [facility] Address [address] [place] [address] Phone Care Team Providers Care Retail Presentation Specialist Name Role Phone Colten Parra DO Primary Care Provider Encounter Details Date Type Department Care Team (Late st Contact Info) Description 01/09/2024 Scanned Document [facility] [address] [place] [phone] Scanning, Generic Provider Social History Tobacco Use [...] Description 02/22/2025 11:00 AM EST Office Visit [facility] [address] [facility] [address] [place] [address] Rachel Stacy MD [address] [facility] [address] [place] [address] documented as of this encounter Visit Diagnoses Not on filedocumented in this encounter Care Teams Retail Presentation Specialist Relationship Specialty Start Date End Date Colten Parra DO PCP - General 12/23/20 documented as of this encounter
--- OUTSIDE RECORDS SUMMARY | 2024-11-26 10:23 | XMS_ITS | Continuity of Care Document ---
Author Organization [facility] Address [address] [place] [address] Care Team Providers Care Sports Medicine Coordinator Name Role Phone Unavailable Primary Care Provider [...] Presenting NOMS DATA CONVERSION Magda Davenport MD 03/13/2018 [facility] Documentation NOMS DATA [...] CONVERSION LEGACY Magda Slade MD Essential (primary) hypertension; Other specified congenital deformities of feet 04/09/2017 [facility] Non Patient Presenting NOMS DATA CONVERSION LEGACY Magda Slade MD 03/26/2017 [facility] Documentation NOMS DATA CONVERSION LEGACY 03/21/2017 [facility] Documentation NOMS DATA CONVERSION LEGACY 03/11/2017 [facility] Non Patient Presenting NOMS DATA CONVERSION LEGACY Magda Slade MD Benign prostatic hyperplasia without lower urinary tract symptoms Social History Smoking Status as of 11/26/2024 [...] Narrative 12/27/2021 12:00 PM EDT PERFORMED AT [facility] LOCATION:[id number] Procedure Note CONVERSION, GENERIC - 07/18/2022 PERFORMED AT [facility] LOCATION:[id number] us Romero BATES IMG XR PROCEDURES Final Resul t * MRI FOOT LT WO CON (12/18/2021) Anatomical Region Laterality Modality Radiographic Eufemia ging 12/18/2021 Narrative 12/28/2021 12:00 AM EDT PERFORMED AT [facility] LOCATION:[place] 112 150 EXAM: MRI FOOT LT WO [...] Note CONVERSION, GENERIC - 07/19/2022 PERFORMED AT [facility] LOCATION:[place] [address] 150 EXAM: MRI FOOT LT WO [...] Narrative 03/13/2018 12:00 AM EST PERFORMED AT [facility] LOCATION:[address] [address] Patient: DALE BELCHER Exam Date: 03/13/2018 : 1965 Gender:M Ordering : ALEIDA RUELAS . Admission #: [id number] Family : Order #: [id number] CLICK HERE TO VIEW EXAM RADIOLOGY REPORT [...] Note CONVERSION, GENERIC - 07/18/2022 PERFORMED AT [facility] LOCATION:[address] [address] Patient: DALE BELCHER Exam Date: 03/13/2018 : 1965 Gender:M Ordering : ALEIDA RUELAS . Admission #: [id number] Family : Order #: [id number] CLICK HERE TO VIEW EXAM RADIOLOGY REPORT [...] Narrative 10/03/2017 12:00 PM EDT PERFORMED AT [facility] LOCATION:[id number] Procedure Note CONVERSION, GENERIC - 07/18/2022 PERFORMED AT [facility] LOCATION:[id number] us Danny Conklin MD IMG XR PROCEDURES Final Re sult * X RAY : ANKLE, LEFT 3V (10/03/2017 12:00 PM EDT) Anatomical Region Laterality Modality Radiographic Eufemia ging 10/03/2017 12:0 0 PM EDT Narrative 10/03/2017 12:00 PM EDT PERFORMED AT [facility] LOCATION:[id number] Procedure Note CONVERSION, GENERIC - 07/18/2022 PERFORMED AT [facility] LOCATION:[id number] us Danny Conklin MD IMG XR PROCEDURES Final Re sult * MR lumbar spine wo contrast (07/17/2017 12:00 PM EDT) Anatomical Region Laterality Modality Spine, L-spine Magnetic Resonan ce 07/17/2017 12:0 0 PM EDT Narrative 07/17/2017 12:00 PM EDT PERFORMED AT [facility] LOCATION:[id number] Procedure Note CONVERSION, GENERIC - 07/18/2022 PERFORMED AT [facility] LOCATION:[id number] us Magda Slade MD IMG MRI PROCEDURES Final Result * XR knee 3 views left (04/25/2017) Anatomical Region Laterality Modality Lower Extremities, Knee Left Radiogra phic Imaging 04/25/2017 Narrative 04/25/2017 12:00 AM EST PERFORMED AT [facility] LOCATION:[place] [address] Procedure Note CONVERSION, GENERIC - 07/18/2022 PERFORMED AT [facility] LOCATION:[place] [address] Paulina Dillard NP IMG XR PROCEDURES Final Result * X RAY : ELBOW, LEFT (04/04/2017 12:00 PM EST) Anatomical Region Laterality Modality Radiographic Eufemia ging 04/04/2017 12:0 0 PM EST Narrative 04/04/2017 12:00 PM EST PERFORMED AT [facility] LOCATION:[id number] Procedure Note CONVERSION, GENERIC - 07/18/2022 PERFORMED AT [facility] LOCATION:[id number] Nasir Odell IMG XR PROCEDURES Final Result [...]
--- OUTSIDE RECORDS SUMMARY | 2024-11-26 10:23 | XMS_ITS | Encounter Summary ---
Author Organization [facility] Address [address] [place] [address] Care Team Providers Care Can Tester Name Role Phone Unavailable Primary Care Provider Unavailabl e Source Comments In the event this information is protected by the Federal Confidentiality of Alcohol and Drug AbusePatient Records regulations: The Federal rules restrict any use of the information to criminally investigate or prosecute any alcohol or drug abuse patient.[facility] Encounter Details Date Type Department Care Team (Late st Contact Info) Description 06/07/2021 Get Medical Advice [facility] [address] [place] [address] Ronny Interiano MD [address] [place] [address] Neck surgery Social History Tobacco [...]
--- OUTSIDE RECORDS SUMMARY | 2024-11-26 10:23 | XMS_ITS | Encounter Summary ---
Author Organization [employer] Address [id number] [address] [place] [address] Care Team Providers Care Robotic Machine Tender Production Name Role Phone Cotlen Parra Primary Care Provider [phone] Encounter Details Date Type Department Care Team (Late st Contact Info) Description 05/18/2024 Refill [facility] - Family Medicine [address] [facility] [place] [address] Berna Díaz CMA Migraine, unspecified, not intractable, [...] Visit [facility] [address] [place] [phone] Сергей Lucas MD [address] [place] [id number] documented as of this encounter Goals [...] documented as of this encounter Care Teams Robotic Machine Tender Production Relationship Specialty Start Date End Date Colten Parra DO [address] [facility] [place] [place] [address] PCP - General Family Medicine 04/03/22 documented as of this encounter
--- OUTSIDE RECORDS SUMMARY | 2024-11-26 10:23 | XMS_ITS | Clinical Summary ---
Author Organization [facility] Address [address] [place] [address] Care Team Providers Care Enroute Controller Name Role Phone Unavailable Primary Care Provider [...] exists Lipid Screening 05/03/2025 05/03/2020, 11/05/[address] [place] [address] [employer]
--- OUTSIDE RECORDS SUMMARY | 2024-11-26 10:30 | XMS_ITS | CCD ---
Author Organization [facility] Inform ion Partnership [facility] Care Team Providers Care Immigration Investigator Name Role Phone Margarita Maxwell Primary Care [...] GURJIT, SHIVAPRASAD K Primary Care Unavailabl e CHIQUISASAKINAI Referring Unavailable KASH GRIER Primary Care Unavailabl e GURJIT, SHIVAPRASAD K Referring Unavailabl e KATHY RGIERNA Dixie Primary Care Unavailabl e LIU JACKSON [...] Referring Unavailable Kash Grier Primary Care Provider [phone] Colten Parra Unavailable Unavailable Unavailable Unavailable Primary Care Provider DR COMPA Garcia Attending Unavailable AWAD ., DR COMPA Aguirre Admitting Unavailable JULIENNE, HUNTER Primary Care Unavailable AWAD ., DR COMPA Aguirre Consulting Unavailable SHARP, TRISTA Consulting Unavailable LAKSHMIPATHY ., NARENDRANATH Attending Nora vailable LAKSHMIPATHY ., NARENDRANATH Admitting Nora vailable JULIENNE, HUNTER Primary Care Unavailable LAKSHMIPATHY ., NARENDRANATH Consulting Nora vailable HALKER ., AD Attending Unavailable JULIENNE, HUNTER Primary Care Unavailable LAKSHMIPATHY ., NARENDRANATH Consulting Nora vailable HALKER ., AD Admitting Unavailable AWAD ., DR COMPA Aguirre Attending Unavailable AWAD ., DR COMPA Aguirre Admitting Unavailable JULIENNE, HUNTER Primary Care Unavailable MALDONADO ., MYRIAM Consulting Unavailable AWAD ., DR COMPA Aguirre Attending Unavailable AWAD ., DR COMPA Aguirre Admitting Unavailable JULIENNE, HUNTER Primary Care Unavailable AWAD ., DR COMPA Aguirre Consulting Unavailable SHARP, TRISTA Consulting Unavailable AWAD ., DR COMPA Aguirre Attending Unavailable AWAD ., DR COMPA Aguirre Admitting Unavailable JULIENNE, HUNTER Primary Care Unavailable MALDONADO ., MYRIAM Consulting Unavailable AWAD ., DR COMPA Aguirre Attending Unavailable AWAD ., DR COMPA Aguirre Admitting Unavailable JULIENNE, HUNTER Primary Care Unavailable AWAD ., DR COMPA Aguirre Consulting Unavailable AWAD ., DR COMPA Aguirre Attending Unavailable AWAD ., DR COMPA Aguirre Admitting Unavailable JULIENNE, HUNTER Primary Care Unavailable AWAD ., DR COMPA Aguirre Consulting Unavailable JULIENNE, HUNTER Primary Care Unavailable ROBERTO ., DAINTZA Attending Unavailable ROBERTO ., DANITZA Admitting Unavailable LORENZO ., JANA MENDOZA Consulting UnavailTANNER Erazo Consulting Unavailable JULIENNE, HUNTER Primary Care Unavailable OSBORNE ., MR ROZ Consulting Unavailable OSBORNE ., MR ROZ Attending Unavailable OBSORNE ., MR ROZ Admitting Unavailable MADONNA, RAJIV Consulting Unavailable DELMI ., DR COMPA Aguirre Admitting Unavailable AWAD ., DR COMPA Aguirre Consulting Unavailable JULIENNE, HUNTER Primary Care Unavailable AWAD ., DR COMPA Aguirre Attending Unavailable LAKSHMIPATHY ., NARENDRANANGELINA Attending Nora vailable LAKSHMIPATHY ., NARENDRANATH Admitting Nora vailable JULIENNE, HUNTER Primary Care Unavailable IAM, DR VASILE Gentile Consulting Unavailable ERNESTO, DR MICHAEL Braun Consulting Unavailable LAKSHMIPATHY ., NARENDRANATH Consulting Nora vailable DELMI ., DR COMPA Aguirre Attending Unavailable DELMI ., DR COMPA Aguirre Admitting Unavailable JULIENNE, HUNTER Primary Care Unavailable MYRIAM ANDERSON Consulting Unavailable WINIFRED BORGES Attending Unavailable JULIENNE, HUNTER L Referring Unavailable FURLONG, COLTEN G Primary Care Unavailable DEBORAH JERONIMO Attending Unavailable JULIENNE, HUNTER L Referring Unavailable FURLONG, COLTEN G Primary Care Unavailable FURLONG, COLTEN G Referring Unavailable FURLONG, COLTEN G Primary Care Unavailable Furlong DO, Colten Kong Primary Care Provider Betteng DO, Colten Maldonadoard Primary Care Provider Marge GARCIA, Antonio Rodriguez Primary Care Unavailable Néstor GARCIA, Christina Portillo Attending Unavailable Néstor GARCIA, Christina Portillo Attending Unavailable Marge GARCIA, Antonio Rodriguez [facility] Care Unavailable Néstor GARCIA, Christina Portillo Attending Unavailable Marge GACRIA, Antonio Michael Primary Care Unavailable Furlong DO, Colten Barnard Primary Care Provider [phone] BETTEZAFARNG, COLTEN G Referring Unavailable FURLONG, COLTEN [...] Unavailable FURLONG, COLTEN G Primary Care Unavailable RACHEL STACY Referring Unavailable FURLONG, COLTEN G Primary Care Unavailable Furlong DO Colten Maldonadoard Primary Care Provider Bettelong DO, Colten Barnard Primary Care Provider FurColten lawton DO Primary Care Provider Kamila Radford APRN Attending Provider Alex Franco MD Attending Provider [phone] FURLONG, COLTEN G Referring Unavailable FURLONG, COLTEN G Primary Care Unavailable JENAE SAMUELS Attending Unavailable JERONIMODEBORAH G Attending Unavailable FURLONG, COLTEN G Referring Unavailable FURLONG, COLTEN G Primary Care Unavailable JERONIMODEBORAH Attending Unavailable FURLONG, COLTEN G Referring Unavailable FURLONG, COLTEN G Primary Care Unavailable Furlong, Colten Primary Care Unavailable Arabella Morrissey Admitting Unavailable Arabella Morrissey Attending Unavailable Furlong, Colten Primary Care Unavailable Turovskaya, Kamila Admitting Unavailable Turovskaya, Kamila Attending Unavailable Turovskaya, Kamila Admitting Unavailable Turovskaya, Kamila Attending Unavailable Furlong, Colten Primary Care Unavailable Allergies Allergy Classification Reported Allergen(s) Allergy Type Date of Onset Reaction(s) Facility (20 sources) Amoxicillin; Translations: [AMOXICILLIN] Drug Allergy 4 Nausea/vomiting, Vomiting [facility] (20 sources) predniSONE; Translations: [PREDNISONE] Drug Allergy 4 Palpitations [facility] (15 sources) Isosorbide; Translations: [ISOSORBIDE MONONITRATE] Drug Allergy 4 Headache [facility] Work Phone: (15 sources) fentaNYL; Translations: [FENTANYL] Drug Allergy 4 GI Disturbance [facility] (4 sources) Isosorbide; Translations: [isosorbide] Drug Allergy 5 Headache [facility] (1 source) Amoxicillin Drug Allergy 5 [facility] (1 source) fentaNYL Drug Allergy 5 [facility] (1 source) predniSONE Drug Allergy 5 [facility] Rep[facility] Medications Current Medications Medication Drug Class(es) Dates Sig (Normalized) Sig (Original) acetaminophen 325 mg / HYDROcodone bitartrate 5 mg oral tablet (20 sources) Opioid Agonist Start: 03-15-2022 take 1 tablet by mouth once as needed HYDROcodone-aceta minophen (NORCO) 5-325 mg per tablet Take 1 tablet by mouth as needed in the morning and 1 tablet as needed in the evening. 03/15/2022 Active Start: 03-15-2022 take 1 tablet by francesco th twice daily as needed HYDROcodone-acetaminophen (NORCO) 5-325 mg per tablet Take 1 tablet by mouth 2 (two) times a day as needed. 03/15/2022 Active Start: 11-10-2019 End: 11-15-2019 take [...] pain 30 tablet 0 11/10/2019 11/15/2019 Active Bryant 5-325 MG T ABS TAKE 1 TABLET EVERY 12 HOURS NEEDED. Quantity: 0 Refills: 0 Ordered: 26-Nov-2022 DO Active albuterol 0.83 mg/ml inhalation solution (15 sources) beta2-Adrenergic Agonist Start: 12-06-2023 take 3 [...] Ordered: 13-Nov-2020 DO Start : 12-Nov-2020 Active amLODIPine 5 mg oral tablet (16 sources) Dihydropyridine Calcium Channel Jaycob Start: 01-06-2024 End: 02-20-2025 take 1 tablet by mouth in the morning amLODIPine (NORVASC) 5 mg tablet Take 1 tablet (5 mg total) by mouth in the morning. 01/06/2024 01/05/2025 Active amoxicillin 875 mg / clavulanate 125 [...] 1 tablet by mouth once daily Aspirin 81 mg tablet,delayed release (DR/EC) Active 81 MG PO Daily January 09, 2024 1:00am Complies with drug therapy aspirin, enteric coated (ASPIRIN, ENTERIC COATED) 81 mg EC tablet Take by mouth q 24 HR. 0 Active Comment on above: Take by mouth q 24 H R. atorvastatin 80 mg oral tablet (20 sources) HMG-CoA Reductase Inhibitor Start: 11-30-19 End: 08-22-19 take 1 tablet by mouth in the morning atorvastatin (LIPITOR) 80 mg tablet TAKE 1 TABLET (80 MG TOTAL) BY MOUTH IN THE MORNING 90 tablet 1 01/21/2024 Active Comment on above: Take 80 mg [...] 4 days.. 6 tablet 08/06/2023 08/11/2023 Active baclofen 10 mg oral tablet (20 sources) gamma-Aminobutyric Acid-ergic Agonist Start: 09-15-19 23 baclofen (LIORESAL) 10 mg tablet Take 1 tablet (10 mg total) by mouth in the morning and 1 tablet (10 mg total) at noon and 1 tablet (10 mg total) before bedtime. 09/14/2022 Active Start: 09-14-2022 End: 10-06-2024 take 3 tablets by mouth once daily Baclofen 10 mg tablet Discontinued 30 MG PO Daily January 09, 2024 1:00am October 06, 2024 10:09am calcium chloride 0.0014 meq/ml / potassium chloride 0.004 meq/ml / sodium chloride 0.103 meq/ml / sodium lactate 0.028 meq/ml injectable solution (1 source) Start: 11-10-2019 lactated ringers infusion cyclobenzaprine hydrochloride 10 mg oral tablet (18 sources) Muscle Relaxant Start: 10-06-2024 take 1 tablet by mouth three times daily Cyclobenzaprine 10 mg tablet Active 10 MG PO Three times daily October 06, 2024 12:00am Complies with drug therapy Start: 05-21-2024 take 1 tablet by francesco [...] mg/ml / guaiFENesin 20 mg/ml oral solution (13 sources) Uncompetitive I-uzwpnz-B-aspartate Receptor Antagonist, Sigma-1 Agonist Start: 12-06-2023 dextromethorphan-guaiFENesin [...] sources) 5-alpha Reductase Inhibitor Start: 09-09-2023 End: 11-03-2024 take 1 tablet by mouth in the morning finasteride (PROSCAR) 5 mg tablet Indications: Benign prostatic hyperplasia with urinary obstruction Take 1 tablet (5 mg total) by mouth in the morning. 90 tablet 3 11/03/2024 Active 1 ml hydrALAZINE hydrochloride 20 mg/ml injection (1 source) Arteriolar Vasodilator Start: 11-10-2019 hydrALAZINE (APRESOLINE) injection 5 mg hydroCHLOROthiazide 12.5 mg / lisinopril 20 mg oral tablet (20 sources) Thiazide Diuretic, Angiotensin Converting Enzyme Inhibitor Start: 05-20-2020 take 1 tablet by mouth once in the morning lisinopril-hydroC HLOROthiazide (PRINZIDE,ZESTORE TIC) 20-12.5 mg per tablet Take 1 tablet by mouth in the morning. 05/20/2020 Active Start: 10-30-2018 End: 08-21-2025 take 1 tablet by mouth once daily Lisinopril-Hydrochlorothiazide 20-12.5 m g tablet Active 1 TAB PO Daily January 09, 2024 1:00am Complies with drug therapy Comment on above: Take 1 tablet by francesco th once daily. 1 ml HYDROmorphone hydrochloride 1 mg/ml cartridge (1 source) Opioid Agonist Start: 11-10-19 20 HYDROmorphone (DILAUDID) injection 0.5 mg ibuprofen 600 mg oral tablet (2 sources) Nonsteroidal Anti-inflammatory Drug ibuprofen (ADVIL;MOTRIN) 600 MG tablet ibuprofen 600 mg tablet 0 Active 4 ml labetalol hydrochloride 5 mg/ml cartridge (1 source) beta-Adrenergic Jaycob Start: 11-10-19 labetalol (NORMODYNE;TRANDATE) injection 5 mg lisinopril 20 mg oral tablet (5 sources) Angiotensin Converting Enzyme Inhibitor Start: 08-22-19 End: 08-22-19 take 1 tablet by mouth in the morning lisinopriL (PRINIVIL,ZESTRIL) 20 mg tablet Take 1 tablet (20 mg total) by mouth in the morning. 08/21/2024 08/21/2025 Active magnesium gluconate 550 mg oral tablet (2 sources) take 1 tablet by mouth once daily magnesium 30 MG tablet Take 30 mg by mouth daily 0 Active magnesium oxide 400 mg oral tablet (15 sources) Start: 01-06-20 End: 01-06-20 take 1 tablet by mouth in the morning, then take 1 tablet by mouth at bedtime magnesium oxide (MAGOX) 400 mg tablet Take 1 tablet (400 mg total) by mouth in the morning and 1 tablet (400 mg total) before bedtime. 01/06/2024 01/05/2025 Active Start: 01-06-2024 End: 01-05-2025 take 1 tablet [...] take 1 tablet by mouth once daily Metoprolol Tartrate 50 mg tablet Active 50 MG PO Daily January 09, 2024 1:00am Complies with drug therapy Start: 12-13-2023 End: 08-21-2025 take 1 tablet [...] sources) Nitrate Vasodilator Start: 12-13-2023 End: 01-12-2024 Nitroglycerin 0.4 mg tablet, sublingual Active 0.4 MG SUBLINGUAL Q5M as needed for chest pain January 09, 2024 1:00am Complies with drug therapy Start: 02-20-2021 nitroglycerin sublingual (NITROQUICK) 0.4 mg [...] 27-Dec-2020 Kalie Laguna Start : 22-Nov-2020 Active End: 08-20-2023 nitroglycerin [...] 20 mg oral tablet (4 sources) Start: End: take 2 tablets by mouth in the [...] 07/27/2018 Active spironolactone 25 mg oral tablet (4 sources) Aldosterone Antagonist Start: 08-21-2024 End: 08-21-2025 take 1 tablet by mouth once daily Spironolactone (Aldactone) 25 mg tablet Active 25 MG PO Daily October 06, 2024 12:00am Complies with drug therapy tamsulosin hydrochloride 0.4 mg oral capsule (20 sources) alpha-Adrenergic Jaycob Start: 02-05-2024 End: 11-09-2024 take 2 capsules by mouth in the morning tamsulosin (FLOMAX) 0.4 mg capsule Take 2 capsules (0.8 mg total) by mouth in the morning. 180 capsule 3 11/10/2024 Active Start: 09-09-2023 End: 02-05-2024 take 1 capsule by mouth once daily Tamsulosin 0.4 mg capsule Active 0.4 MG PO Daily January 09, 2024 1:00am Complies with drug therapy Start: 11-10-2019 take 1 capsule by mo [...] Mood Stabilizer, Anti-epileptic Agent Start: 02-28-2021 End: 09-07-2024 take 1 tablet by mouth once daily in the morning divalproex (DEPAKOTE) 125 mg EC tablet Indications: Migraine, unspecified, not intractable, without status migrainosus Take 1 tablet (125 mg total) by mouth every morning. 90 tablet 09/07/2024 Active Start: 04-06-2020 take 1 tablet by [...] once daily. zonisamide 100 mg oral capsule (4 sources) Anti-epileptic Agent Start: 10-06-2024 take 1 capsule by mouth three times daily Zonisamide 100 mg capsule Active 100 MG PO Three times daily October 06, 2024 12:00am Complies with drug therapy Start: 04-30-2024 take 3 capsules by m outh twice daily zonisamide (Zonegran) 50 mg capsule [...] by francesco th twice daily as needed. colchicine 0.6 mg oral tablet (6 sources) [...] Active docusate sodium 50 mg / sennosides, group home 8.6 mg oral tablet (12 sources) Start: [...] Indications: Hypertension, unspecified type , Atherosclerosis of [place] coronary artery of [place] heart without angina pectoris , Current every [...] Start: 10-28-2018 take 1 capsule by mo uth once daily propranolol (INDERAL LA) 80 MG [...] [Coronary atherosclerosis of unspecified type of vessel, [place]-biloxi or graft] Onset: 04-02-2023 12-13-2023 Chronic Coronary [...] hyperplasia without lower urinary tract symptoms] Onset: 07-04-2023 03-19-2024 Chronic Joint disorders and dislocations; trauma-related (1 source) Other articular cartilage disorders, unspecified hip; Translations: [Other articular cartilage disorders, unspecified hip] Onset: 01-15-2024 Chronic Other aftercare (6 sources) Treatment changed; Translations: [Other intermediate (current) drug therapy] Onset: 01-06-2024 01-06-2024 Episodic Other circulatory disease (1 source) Cardiac function test normal; Translations: [Normal cardiac ejection fraction] Episodic Other connective tissue disease (1 source) Other muscle spasm; Translations: [OTHER MUSCLE SPASM] Onset: 06-20-2022 Episodic Other connective tissue disease (1 source) [...] Spondylosis; intervertebral disc disorders; other back problems (15 sources) Spinal stenosis in cervical region; Translations: [...] tract symptoms (LUTS) [R39.9] Onset: 08-21-2023 Unclassified (3 sources) M25.552 - Pain in left hip Unclassified (3 sources) M54.16 - Radiculopathy, lumbar region Past or Other Problems Problem Classification Problem Date Documented Da te Episodic/Chronic Acute bronchitis (2 sources) Acute bronchitis; Translations: [Acute bronchitis, unspecified] Onset: 12-06-2023 12-06-2023 Episodic Administrative/social admission (5 sources) Patient encounter status; [...] 12-13-2023 12-13-2023 Episodic Other aftercare (1 source) care home (current) use of aspirin; Translations: [NURSING HOME CURRENT USE OF ASPIRIN] Onset: 05-07-2022 Episodic Other aftercare (1 source) 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; 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] Onset: 05-07-2022 Episodic Other and unspecified benign neoplasm (20 sources) Polyp of transverse colon; Translations: [Polyp of colon] Onset: 12-07-2022 12-07-2022 Episodic Other circulatory disease (1 source) Upper respiratory tract finding; Translations: [Other specified symptoms and signs involving the circulatory and respiratory systems] 12-06-2023 Episodic Other circulatory disease (1 source) Other specified symptoms and signs involving the circulatory and respiratory systems; Translations: [Other specified symptoms and signs involving the circulatory and respiratory systems] Onset: 12-06-2023 Episodic Other connective tissue disease (5 sources) Other specified soft tissue disorders; Translations: [OTHER SPEC SOFT TISSUE DISORDERS] Onset: 12-28-2021 Episodic Other connective tissue disease (20 sources) Pain in right lower limb; Translations: [Pain in right leg] Onset: 03-24-2022 03-24-2022 Episodic Other gastrointestinal disorders (20 sources) Stool [...] 12-13-2023 12-13-2023 Episodic Other non-traumatic joint disorders (4 sources) Pain in left shoulder; Translations: [PAIN IN LEFT SHOULDER] Onset: 05-03-2022 Episodic Other non-traumatic joint disorders (20 sources) Hip pain; Translations: [Pain in left hip] Onset: 12-14-2022 12-14-2022 Episodic Other screening for suspected conditions (not mental disorders or infectious disease) (1 source) Abnormal result of other cardiovascular function study; Translations: [Abnormal result of other cardiovascular function study] Onset: 01-09-2024 Episodic Other skin disorders (1 source) Disorder of pigmentation, unspecified; Translations: [Dyschromia, unspecified] 08-05-2023 Episodic Other skin disorders (1 source) [...] Test Name Value Interpretation Reference Range Facility Measure post void residualon 11-18-2024 Volume 68 mL Bfly System Bfly System X-ray reportOrdered By: Jose Garza on 10-14-2024 Study report [facility] [place] [address] XRay Report Signed Patient: Ashok Doss MR#: [id number] : 1965 Acct:[id number] Age/Sex: 59 / M ADM Date: 5 Loc: XD Room: Type: [facility] Attending Dr: Kamila Radford APRN Copies to: Kamila Radford APRN~ Ordering Provider: Kamila Radford APRN Date of Service: 10/14/24 XR/XR lumbar [...] Garza M.D. 10/14/2024 12:56 PM [facility] Transcribed By: [facility] 10/14/24 1256 Dictated By: Rosendo Garza DO 10/14/24 1255 Signed By: 10/14/[address] [place] [address] XR lumbar spine 6V w bending on 10-14-2024 XR lumbar spine 6V w bending [facility] [place] [address] XRay Report Signed Patient: Ashok Doss MR#: [id number] : 1965 Acct:[id number] Age/Sex: 59 / M ADM Date: 10/14/24 Loc: XD Room: Type: [facility] Attending Dr: Kamila Radford APRN Copies to: Kamila Radford APRN Ordering Provider: Kamila Radford APRN Date of Service: 10/14/24 XR/XR lumbar [...] Garza M.D. 10/14/2024 12:56 PM Dictation Location: [place] [address] Transcribed By: [facility] 10/14/24 1256 Dictated By: Rosendo Garza DO 10/14/241254 Signed By: 10/14/24 1256 Normal [facility] COMPREHENSIVE METABOLIC PANE Feng 08-17-2024 Albumin [Mass/Vol] 4.1 g/dL Normal 3.2-5.3 [facility] Comment on above: Performed By: #### C MP #### [facility] ([facility]) [address] [place] [address] VIR ALP [Catalytic activity/Vol] 99 U/L Normal 39-130 [facility] Comment on above: Performed By: #### C MP #### [facility] ([facility]) [address] [place] [address] VIR ALT [Catalytic activity/Vol] 21 U/L Normal <=40 [facility] Comment on above: Performed By: #### C MP #### [facility] ([facility]) [address] [place] [address] VIR Anion gap [Moles/Vol] 8 mmol/L Normal 5-15 [facility] Comment on above: Performed By: #### C MP #### [facility] ([facility]) [address] [place] [address] VIR AST [Catalytic activity/Vol] 15 U/L Normal <=41 [facility] Comment on above: Performed By: #### C MP #### [facility] ([facility]) [address] [place] [address] VIR Bilirubin [Mass/Vol] 0.3 mg/dL Normal 0.3-1.2 [facility] Comment on above: Performed By: #### C MP #### [facility] ([facility]) [address] [place] [address] VIR Calcium [Mass/Vol] 9.5 mg/dL Normal 8.5-10.5 [facility] Comment on above: Performed By: #### C MP #### [facility] ([facility]) [address] [place] [address] VIR Chloride [Moles/Vol] 105 mmol/L Normal 98-109 [facility] Comment on above: Performed By: #### C MP #### [facility] ([facility]) [address] [place] [address] VIR CO2 [Moles/Vol] 27 mmol/L Normal 22-32 [facility] Comment on above: Performed By: #### C MP #### [facility] ([facility]) [address] [place] [address] VIR Creatinine [Mass/Vol] 0.96 mg/dL Normal 0.60-1.30 [facility] Comment on above: Result Comment: METH OD TRACEABLE TO IDMS STANDARD Performed By: #### C MP #### [facility] ([facility]) [address] [place] [address] VIR EGFR (CKD-EPI) NON-RACE DEPENDENT >^90 Normal >=60 [facility] Comment on above: Result Comment: Repo rted eGFR is based on the CKD-EPI 2020 equation that does not use a race coefficient. Performed By: #### C MP #### [facility] ([facility]) [address] [place] [address] VIR Glucose [Mass/Vol] 91 mg/dL Normal 65-99 [facility] Comment on above: Performed By: #### C MP #### [facility] ([facility]) [address] [place] [address] VIR Potassium [Moles/Vol] 3.7 mmol/L Normal 3.5-5.0 [facility] Comment on above: Performed By: #### C MP #### [facility] ([facility]) [address] [place] [address] VIR Protein [Mass/Vol] 7.1 g/dL Normal 6.0-8.0 [facility] Comment on above: Performed By: #### C MP #### [facility] ([facility]) [address] [place] [address] VIR Sodium [Moles/Vol] 140 mmol/L Normal 134-146 [facility] Comment on above: Performed By: #### C MP #### [facility] ([facility]) [address] [place] [address] VIR Urea nitrogen [Mass/Vol] 16 mg/dL Normal 5-23 [facility] Comment on above: Performed By: #### C MP #### [facility] ([facility]) [address] [place] [address] VIR B-Type Natriuretic Peptideon 01-09-2024 Natriuretic peptide B (Bld) [Mass/Vol] 61.0 pg/mL Normal 5-100 [facility] Comment on above: Result Comment: PERF ORMED BY: [place] [address] PATHOLOGIST [employer] ARCHITECT JESUS RUBIO M.D. Performed By: #### B FOOD COURT TEAM MEMBER #### [address] Blood Urea Nitrogenon 2023 Urea nitrogen [Mass/Vol] 15 mg/dL Normal 7-25 [facility] Comment on above: Performed By: #### L YTES, CREAT, BUN, PP, LIPID, CBC #### [facility] [address] [place] [address] Coagulation Profileon 2023 aPTT Coag (Bld) [Time] 30.9 s Normal 25.1-36.5 [facility] Comment on above: Result Comment: A he matocrit value greater than 55% may lead to inaccurate results in coagulation testing. Patients having hematocrit values >55% require a special collection tube for coagulation studies. Please contact the laboratory at [phone] for redraw instructions. PERFORMED BY: [place] [address] PATHOLOGIST [employer] ARCHITECT JESUS RUBIO M.D. Performed By: #### L YTES, CREAT, BUN, PP, LIPID, CBC #### [address] INR Coag (PPP) [Relative time] 1.0 {INR} Normal [facility] Comment on above: Result [...] YTES, CREAT, BUN, PP, LIPID, CBC #### [address] PT Coag (PPP) [Time] 11.8 s Normal 9.0-12.9 [facility] Comment on above: Result Comment: A he matocrit value greater than 55% may lead to inaccurate results in coagulation testing. Patients having hematocrit values >55% require a special collection tube for coagulation studies. Please contact the laboratory at [phone] for redraw instructions. Performed By: #### L YTES, CREAT, BUN, PP, LIPID, CBC #### [address] Complete Blood Count Auto Di ffon 01-09-2024 Basophils (Bld) [#/Vol] 0.2 10*3/uL Normal 0.0-0.2 [facility] Comment on above: Result Comment: PERF ORMED BY: [place] [address] PATHOLOGIST [employer] ARCHITECT JESUS RUBIO M.D. Performed By: #### L YTES, CREAT, BUN, PP, LIPID, CBC #### [address] Basophils/100 WBC (Bld) 1.2 % Normal . [facility] Comment on above: Performed By: #### L YTES, CREAT, BUN, PP, LIPID, CBC #### [address] Eosinophils (Bld) [#/Vol] 0.4 10*3/uL Normal 0.0-0.45 [facility] Comment on above: Performed By: #### L YTES, CREAT, BUN, PP, LIPID, CBC #### [address] Eosinophils/100 WBC (Bld) 2.7 % Normal . [facility] Comment on above: Performed By: #### L YTES, CREAT, BUN, PP, LIPID, CBC #### [address] Erythrocyte distribution width (RBC) [Ratio] 13.9 % Normal 12.0-14.8 [facility] Comment on above: Performed By: #### L YTES, CREAT, BUN, PP, LIPID, CBC #### [address] Hematocrit (Bld) [Volume fraction] 40.9 % Normal 38.8-50.0 [facility] Comment on above: Performed By: #### L YTES, CREAT, BUN, PP, LIPID, CBC #### [address] Hemoglobin (Bld) [Mass/Vol] 14.0 g/dL Normal 13.0-17.0 [facility] Comment on above: Performed By: #### L YTES, CREAT, BUN, PP, LIPID, CBC #### [address] Lymphocytes (Bld) [#/Vol] 3.9 10*3/uL Normal 1.00-4.8 [facility] Comment on above: Performed By: #### L YTES, CREAT, BUN, PP, LIPID, CBC #### [address] Lymphocytes/100 WBC (Bld) 26.8 % Normal . [facility] Comment on above: Performed By: #### L YTES, CREAT, BUN, PP, LIPID, CBC #### [address] MCH (RBC) [Entitic mass] 31.4 pg Normal 27.5-35.2 [facility] Comment on above: Performed By: #### L YTES, CREAT, BUN, PP, LIPID, CBC #### [address] MCV (RBC) [Entitic vol] 92.0 fL Normal 83.5-101 [facility] Comment on above: Performed By: #### L YTES, CREAT, BUN, PP, LIPID, CBC #### [address] Mean Corpuscular HGB Conc 34.1 g/dL Normal 32.5-35.6 [facility] Comment on above: Performed By: #### L YTES, CREAT, BUN, PP, LIPID, CBC #### [address] Monocytes (Bld) [#/Vol] 1.4 10*3/uL High 0.0-0.8 [facility] Comment on above: Performed By: #### L YTES, CREAT, BUN, PP, LIPID, CBC #### [address] Monocytes/100 WBC (Bld) 9.9 % Normal . [facility] Comment on above: Performed By: #### L YTES, CREAT, BUN, PP, LIPID, CBC #### [address] Neutrophils (Bld) [#/Vol] 8.6 10*3/uL High 1.8-7.7 [facility] Comment on above: Performed By: #### L YTES, CREAT, BUN, PP, LIPID, CBC #### [address] Neutrophils/100 WBC (Bld) 59.4 % Normal . [facility] Comment on above: Performed By: #### L YTES, CREAT, BUN, PP, LIPID, CBC #### [address] NRBC% 0.1 /100{WBC} Normal 0-0.5 [facility] Comment on above: Performed By: #### L YTES, CREAT, BUN, PP, LIPID, CBC #### [address] Platelet mean volume (Bld) [Entitic vol] 7.0 fL Normal 6.6-10.1 [facility] Comment on above: Performed By: #### L YTES, CREAT, BUN, PP, LIPID, CBC #### [address] Platelets (Bld) [#/Vol] 320 10*3/uL Normal 150-450 [facility] Comment on above: Performed By: #### L YTES, CREAT, BUN, PP, LIPID, CBC #### [address] RBC (Bld) [#/Vol] 4.45 10*6/uL Normal 3.90-5.60 [facility] Comment on above: Performed By: #### L YTES, CREAT, BUN, PP, LIPID, CBC #### [address] WBC (Bld) [#/Vol] 14.4 10*3/uL High 4.1-10.5 [facility] Comment on above: Performed By: #### L YTES, CREAT, BUN, PP, LIPID, CBC #### [address] Creatinineon 01-09-2024 Creatinine [Mass/Vol] 0.88 mg/dL Normal 0.70-1.30 [facility] Comment on above: Performed By: #### L YTES, CREAT, BUN, PP, LIPID, CBC #### [facility] [address] Creatinine Clr Calc Pharmacy 132.16 Normal [facility] Comment on above: Performed By: #### L YTES, CREAT, BUN, PP, LIPID, CBC #### [facility] [address] GFR/1.73 sq M.predicted MDRD (S/P/Bld) [Vol rate/Area] mL/min/{1.73_m2} Normal [facility] Comment on above: Performed By: #### L YTES, CREAT, BUN, PP, LIPID, CBC #### [facility] [address] ECG 12 lead ECGon 01-09-2024 ECG 12 lead ECG [facility] [address] [place] [address] Electrocardiograph Report Signed Patient: Ashok Doss MR#: [id number] 79 : 1965 Acct:[id number] Age/Sex: 58 / M ADM Date: 01/09/24 Loc: Room: Type: [facility] Attending Dr: Arabella Morrissey DO Ordering [...] previous ECGs available Confirmed by JARVIS GARCIA [facility], BENJAMIN ([id number]) on 01/10/2024 11:17:15 AM Referred By: Electronically Signed By: BENJAMIN CONLEY MD [facility] Transcribed By: MUS Signed By Benjamin Conley MD, FACC 01/10/24 1117 Normal [facility] Electrolyteson 01-09-2024 Anion gap [Moles/Vol] 12.4 mmol/L Normal 6.0-15.0 [facility] Comment on above: Performed By: #### L YTES, CREAT, BUN, PP, LIPID, CBC #### [address] Chloride [Moles/Vol] 105 mmol/L Normal 98-107 [facility] Comment on above: Performed By: #### L YTES, CREAT, BUN, PP, LIPID, CBC #### [address] CO2 [Moles/Vol] 26.6 mmol/L Normal 21.0-31.0 [facility] Comment on above: Performed By: #### L YTES, CREAT, BUN, PP, LIPID, CBC #### [address] Potassium [Moles/Vol] 4.0 mmol/L Normal 3.5-5.1 [facility] Comment on above: Performed By: #### L YTES, CREAT, BUN, PP, LIPID, CBC #### [address] Sodium [Moles/Vol] 140 mmol/L Normal 136-145 [facility] Comment on above: Performed By: #### L YTES, CREAT, BUN, PP, LIPID, CBC #### [address] Lipid Panelon 01-09-2024 Cholesterol [Mass/Vol] 103 mg/dL Low 140-200 [facility] Comment on above: Result Comment: Chol less than 200 mg/dl low risk Chol 201-239 mg/dl borderline risk Chol 240 mg/dl and greater high risk Performed By: #### L YTES, CREAT, BUN, PP, LIPID, CBC #### [address] Cholesterol in HDL [Mass/Vol] 36 mg/dL Normal 23-92 [facility] Comment on above: Result Comment: HDL CHOL ATP-III CLASSIFICATION Cardiovascular Risk HDL > or equal to 60 mg/dL LOW HDL < 40 mg/dL HIGH Performed By: #### L YTES, CREAT, BUN, PP, LIPID, CBC #### [address] Cholesterol.total/Ch olesterol in HDL [Mass ratio] 2.9 {ratio} Normal <5.0 [facility] Comment on above: Result Comment: PERF ORMED BY: [place] [address] PATHOLOGIST [employer] ARCHITECT JESUS RUBIO M.D. Performed By: #### L YTES, CREAT, BUN, PP, LIPID, CBC #### [facility] [address] LDL Cholesterol,Calculat ed 44 mg/dL Normal 0-100 [facility] Comment on above: Result Comment: LDL ATP III CLASSIFICATION LDL less than 100 mg/dL Optimal LDL 100-129 mg/dL Near or above optimal LDL 130-159 mg/dL Borderline high LDL 160-189 mg/dL High LDL greater than 189 mg/dL Very high Performed By: #### L YTES, CREAT, BUN, PP, LIPID, CBC #### [address] Triglyceride w/Reflex 117 mg/dL Normal 0-149 [facility] Comment on above: Result Comment: TRIG ATP III CLASSIFICATION TRIG less than 150 mg/dL Normal TRIG 150-199 mg/dL Borderline high TRIG 200-500 mg/dL High TRIG greater than 500 mg/dL Very high Standard traceable to the Center for Disease Conrtrol and Prevention (CDC) test method. Performed By: #### L YTES, CREAT, BUN, PP, LIPID, CBC #### [address] VLDL CHOLESTEROL 23 mg/dL Normal [facility] Comment on above: Performed By: #### L YTES, CREAT, BUN, PP, LIPID, CBC #### [facility] [address] BASIC METABOLIC PANLon 12-29 Anion gap [Moles/Vol] 11 mmol/L Normal 5-15 [facility] Comment on above: Performed By: #### C BCA, BMP, 77987-2, LIVR, 64131-8, 3015-05 #### [facility] ([id number]) [address], [address] [place] [address] Calcium [Mass/Vol] 9.1 mg/dL Normal 8.5-10.5 [facility] Comment on above: Performed By: #### C BCA, BMP, 47775-5, LIVR, , 3015- #### [facility] ([id number]) [address], [address] [place] [address] Chloride [Moles/Vol] 104 mmol/L Normal 98-109 [facility] Comment on above: Performed By: #### C BCA, BMP, 88865-9, LIVR, , 3015-05 #### [facility] ([id number]) [address], [address] [place] [address] CO2 [Moles/Vol] 28 mmol/L Normal 22-32 [facility] Comment on above: Performed By: #### C BCA, BMP, 17568-5, LIVR, , 3015-05 #### [facility] ([id number]) [address], [address] [place] [address] Creatinine [Mass/Vol] 0.92 mg/dL Normal 0.60-1.30 [facility] Comment on above: Result Comment: METH OD TRACEABLE TO IDMS STANDARD Performed By: #### C BCA, BMP, 01621-2, LIVR, , 3015-05 #### [facility] ([id number]) [address], [address] [place] [address] eGFR (CKD-EPI) NON-RACE DEPENDENT >90 Normal >59 [facility] Comment on above: Result Comment: Reported eGFR is based on the CKD-EPI 2020 equation that does not use a race coefficient. Performed By: #### C BCA, BMP, 80964-6, LIVR, 28191-1, 3015-05 #### [facility] ([id number]) [address], [address] [place] [address] Glucose [Mass/Vol] 86 mg/dL Normal 65-99 [facility] Comment on above: Performed By: #### C BCA, BMP, 79486-0, LIVR, , 3015-05 #### [facility] ([id number]) [address], [address] [place] [address] Potassium [Moles/Vol] 3.5 mmol/L Normal 3.5-5.0 [facility] Comment on above: Performed By: #### C BCA, BMP, 25871-7, LIVR, , 3015-05 #### [facility] ([id number]) [address], [address] [place] [address] Sodium [Moles/Vol] 143 mmol/L Normal 134-146 [facility] Comment on above: Performed By: #### C BCA, BMP, 77722-8, LIVR, , 3015-05 #### [facility] ([id number]) [address], [address] [place] [address] Urea nitrogen [Mass/Vol] 15 mg/dL Normal 5-23 [facility] Comment on above: Performed By: #### C BCA, BMP, 87163-6, LIVR, , 3015-05 #### [facility] ([id number]) [address], [address] [place] [address] CBC AND AUTO DIFFon 10-28-20 24 ABSOLUTE BASOPHIL 0.1 X10E9/L Normal 0.0-0.2 [facility] Comment on above: Performed By: #### C BCA, BMP, 55483-4, LIVR, , 3015- #### [facility] ([id number]) [address], [address] [place] [address] ABSOLUTE NEUTROPHIL 6.4 X10E9/L Normal 1.5-6.6 [facility] Comment on above: Performed By: #### C BCA, BMP, 40541-3, LIVR, , 3015-05 #### [facility] ([id number]) [address], [address] [place] [address] Basophils/100 WBC (Bld) 0.7 % Normal [facility] Comment on above: Performed By: #### C BCA, BMP, 19150-6, LIVR, , 3015-05 #### [facility] ([id number]) [address], [address] [place] [address] Eosinophils (Bld) [#/Vol] 0.4 10*3/uL Normal 0.0-0.4 [facility] Comment on above: Performed By: #### C BCA, BMP, 21184-1, LIVR, , 3015-05 #### [facility] ([id number]) [address], [address] [place] [address] Eosinophils/100 WBC (Bld) 3.6 % Normal [facility] Comment on above: Performed By: #### C BCA, BMP, 84820-2, LIVR, , 3015-05 #### [facility] ([id number]) [address], [address] [place] [address] Erythrocyte distribution width (RBC) [Ratio] 13.6 % Normal 11.5-15.0 [facility] Comment on above: Performed By: #### C BCA, BMP, 10362-0, LIVR, , 3015- #### [facility] ([id number]) [address], [address] [place] [address] Hematocrit (Bld) [Volume fraction] 40.2 % Normal 39-49 [facility] Comment on above: Performed By: #### C BCA, BMP, 39693-7, LIVR, 19167-2, 3015-3 #### [facility] ([id number]) [address], [address] [place] [address] Hemoglobin (Bld) [Mass/Vol] 13.9 g/dL Normal 13.0-17.0 [facility] Comment on above: Performed By: #### C BCA, BMP, 01072-7, LIVR, 96359-0, 3015-3 #### [facility] ([id number]) [address], [address] [place] [address] Lymphocytes (Bld) [#/Vol] 3.6 10*3/uL High 1.0-3.5 [facility] Comment on above: Performed By: #### C BCA, BMP, 92003-9, LIVR, 61675-3, 3015- #### [facility] ([id number]) [address], [address] [place] [address] Lymphocytes/100 WBC (Bld) 30.8 % Normal [facility] Comment on above: Performed By: #### C BCA, BMP, 15182-5, LIVR, 74330-9, 3015-05 #### [facility] ([id number]) [address], [address] [place] [address] MCH (RBC) [Entitic mass] 32.0 pg Normal 27-34 [facility] Comment on above: Performed By: #### C BCA, BMP, 20698-3, LIVR, 33381-5, 3015- #### [facility] ([id number]) [address], [address] [place] [address] MCHC (RBC) [Mass/Vol] 34.5 g/dL Normal 32-36 [facility] Comment on above: Performed By: #### C BCA, BMP, 43158-8, LIVR, 93476-6, 3015- #### [facility] ([id number]) [address], [address] [place] [address] MCV (RBC) [Entitic vol] 93 fL Normal 80-100 [facility] Comment on above: Performed By: #### C BCA, BMP, 30796-2, LIVR, 93416-1, 3015- #### [facility] ([id number]) [address], [address] [place] [address] Monocytes (Bld) [#/Vol] 1.1 10*3/uL High 0-0.9 [facility] Comment on above: Performed By: #### C BCA, BMP, 89428-0, LIVR, 33241-1, 3015-05 #### [facility] ([id number]) [address], [address] [place] [address] Monocytes/100 WBC (Bld) 9.6 % Normal [facility] Comment on above: Performed By: #### C BCA, BMP, 91891-9, LIVR, , 3015-05 #### [facility] ([id number]) [address] [place] [address] Neutrophils/100 WBC (Bld) 55.3 % Normal [facility] Comment on above: Performed By: #### C BCA, BMP, 14499-2, LIVR, 28539-7, 3015- #### [facility] ([id number]) [address], [address] [place] [address] Platelet mean volume (Bld) [Entitic vol] 7.4 fL Normal 7-12 [facility] Comment on above: Performed By: #### C BCA, BMP, 94981-2, LIVR, 20755-1, 3015-05 #### [facility] ([id number]) [address], [address] [place] [address] Platelets (Bld) [#/Vol] 322 10*3/uL Normal 150-450 [facility] Comment on above: Performed By: #### C BCA, BMP, 81006-2, LIVR, 08379-7, 3015-3 #### [facility] ([id number]) [address], [address] [place] [address] RBC COUNT 4.34 X10E12/L Normal 4.10-5.70 [facility] Comment on above: Performed By: #### C BCA, BMP, 39806-6, LIVR, 16752-2, 3015- #### [facility] ([id number]) [address], [address] [place] [address] WBC (Bld) [#/Vol] 11.6 10*3/uL High 4.0-11.0 [facility] Comment on above: Performed By: #### C BCA, BMP, 37158-0, LIVR, , 3015- #### [facility] ([id number]) [address], [address] [place] [address] LIVER PANELon 12-30-2023 Albumin [Mass/Vol] 3.9 g/dL Normal 3.2-5.3 [facility] Comment on above: Performed By: #### C BCA, BMP, 53803-7, LIVR, 91404-5, 3015-05 #### [facility] ([id number]) [address] [place] [address] ALP [Catalytic activity/Vol] 74 U/L Normal 39-130 [facility] Comment on above: Performed By: #### C BCA, BMP, 36330-4, LIVR, 60433-3, 3015- #### [facility] ([id number]) [address], [address] [place] [address] ALT [Catalytic activity/Vol] 17 U/L Normal 0-40 [facility] Comment on above: Performed By: #### C BCA, BMP, 44205-2, LIVR, 38212-2, 3015- #### [facility] ([id number]) [address], [address] [place] [address] AST [Catalytic activity/Vol] 13 U/L Normal 0-41 [facility] Comment on above: Performed By: #### C BCA, BMP, 92571-0, LIVR, 51248-5, 3015-3 #### [facility] ([id number]) [address], [address] [place] [address] Bilirubin [Mass/Vol] 0.5 mg/dL Normal 0.3-1.2 [facility] Comment on above: Performed By: #### C BCA, BMP, 44231-4, LIVR, 44648-0, 3015- #### [facility] ([id number]) [address], [address] [place] [address] Bilirubin.direct [Mass/Vol] 0.1 mg/dL Normal 0.0-0.4 [facility] Comment on above: Performed By: #### C BCA, BMP, 81512-1, LIVR, 67835-0, 3015-05 #### [facility] ([id number]) [address] [place] [address] Protein [Mass/Vol] 6.3 g/dL Normal 6.0-8.0 [facility] Comment on above: Performed By: #### C BCA, BMP, 55523-7, LIVR, 55123-6, 3015- #### [facility] ([id number]) [address], [address] [place] [address] Lipid 1996 panelon 4 Cholesterol [Mass/Vol] 109 mg/dL Low 150-200 [facility] Comment on above: Performed By: #### C BCA, BMP, 57941-1, LIVR, 74433-8, 3015-3 #### [facility] ([id number]) [address] [place] [address] Cholesterol in HDL [Mass/Vol] 38 mg/dL Low >39 [facility] Comment on above: Result Comment: HDL <40 mg/dL - High Risk HDL > or = 40mg/dL- Desirable HDL >60 mg/dL - Negative Risk Performed By: #### C BCA, BMP, 82873-6, LIVR, 43484-1, 6-3 #### [facility] ([id number]) [address] [place] [address] Cholesterol in LDL [Mass/Vol] 50 mg/dL Normal <130 [facility] Comment on above: Result Comment: LDL <100 mg/dL - Desirable LDL >160 mg/dL - High Risk Performed By: #### C BCA, BMP, 13691-3, LIVR, 36222-2, 6-3 #### [facility] ([id number]) [address] [place] [address] Cholesterol in VLDL [Mass/Vol] 21 mg/dL Normal 0-30 [facility] Comment on above: Performed By: #### C BCA, BMP, 63825-0, LIVR, 41834-5, 6-3 #### [facility] ([id number]) [address], [address] [place] [address] CHOLESTEROL:HDL 2.9 Normal 1.0-5.0 [facility] Comment on above: Performed By: #### C BCA, BMP, 00112-3, LIVR, 79317-6, 6-3 #### [facility] ([id number]) [address], [address] [place] [address] Triglyceride [Mass/Vol] 104 mg/dL Normal 27-150 [facility] Comment on above: Performed By: #### C BCA, BMP, 59506-0, LIVR, 16347-4, 3016-3 #### [facility] ([id number]) [address], [address] [place] [address] MAGNESIUMon 12-30-2023 Magnesium [Mass/Vol] 1.8 mg/dL Normal 1.8-2.6 [facility] Comment on above: Performed By: #### C BCA, BMP, 82678-7, LIVR, 82555-6, 3016-3 #### [facility] ([id number]) [address] [place] [address] TSH Qnon 12-30-2023 TSH 1.41 uIU/mL Normal 0.49-4.67 [facility] Comment on above: Performed By: #### C BCA, BMP, 27998-5, LIVR, 54347-7, 3016-3 #### [facility] ([id number]) [address] [place] [address] ECG 12 lead (Clinic Performe d)on 12-13-2023 Sinus rhythm, nonspecific ST-T wave changes. Rate 76. [facility] Work Phone: [facility] Work Phone: POCT Influenza A/Influenza B /SARS-COV-2 Veritoron 12-06-2023 External Poct Influenza A Antigen Negative [facility] External Poct Influenza B Antigen Negative [facility] SARS-CoV-2 (COVID-19) Ag IA.rapid Ql (Resp) Negative [facility] URINE CULTUREon 08-21-2023 Bacteria identified Cx Nom (U) CULTURE RESULTS NO GROWTH AT <100 CFU/mL Normal [facility] Comment on above: Performed By: #### 6 30-4 #### [facility] ([id number]) [address] [place] [address] POCT Urinalysis Auto, W/O Mi croscopyon 07-04-2023 External Poct Urine Blood 1+ [facility] External Poct Urine Glucose Negative [facility] External Poct Urine Ketones Negative [facility] External Poct Urine Leukocyte Esterase Negative [facility] External Poct Urine Nitrite Negative [facility] External Poct Urine Ph 7.0 [facility] External Poct Urine Protein Negative [facility] COMPREHENSIVE METABOLIC PANE Feng 05-01-2023 Albumin [Mass/Vol] 4.1 g/dL Normal 3.2-5.3 [facility] Comment on above: Performed By: #### Haley ARENAS [id number] #### [facility] ([id number]) [address], [address] [place] [address] ALP [Catalytic activity/Vol] 75 U/L Normal 39-130 [facility] Comment on above: Performed By: #### Haley ARENAS [id number] #### [facility] ([id number]) [address], [address] [place] [address] ALT [Catalytic activity/Vol] 21 U/L Normal 0-40 [facility] Comment on above: Performed By: #### Haley ARENAS, [id number] #### [facility] ([id number]) [address], [address] [place] [address] Anion gap [Moles/Vol] 6 mmol/L Normal 5-15 [facility] Comment on above: Performed By: #### Haley AERNAS [id number] #### [facility] ([id number]) [address], [address] [place] [address] AST [Catalytic activity/Vol] 13 U/L Normal 0-41 [facility] Comment on above: Performed By: #### Haley ARENAS 69164-3 #### [facility] ([id number]) [address], [address] [place] [address] Bilirubin [Mass/Vol] 0.4 mg/dL Normal 0.3-1.2 [facility] [place] [facility] Comment on above: Performed By: #### Haley ARENAS, 65543-6 #### [facility] ([id number]) [address], [address] [place] [address] Calcium [Mass/Vol] 9.5 mg/dL Normal 8.5-10.5 [facility] Comment on above: Performed By: #### Haley ARENAS, 31793-4 #### [facility] ([id number]) [address], [address] [place] [address] Chloride [Moles/Vol] 106 mmol/L Normal 98-109 [facility] [place] [facility] Comment on above: Performed By: #### Haley ARENAS, 05496-3 #### [facility] ([id number]) [address], [address] [place] [address] CO2 [Moles/Vol] 30 mmol/L Normal 22-32 [facility] Comment on above: Performed By: #### Haley ARENAS, 78391-4 #### [facility] ([id number]) [address], [address] [place] [address] Creatinine [Mass/Vol] 0.96 mg/dL Normal 0.60-1.30 [facility] Comment on above: Result Comment: METH OD TRACEABLE TO IDMS STANDARD Performed By: #### Haley ARENAS, 44340-3 #### [facility] ([id number]) [address] [place] [address] eGFR (CKD-EPI) NON-RACE DEPENDENT >90 Normal >59 [facility] Comment on above: Result Comment: Reported eGFR is based on the CKD-EPI 2020 equation that does not use a race coefficient. Performed By: #### Haley ARENAS, 04530-7 #### [facility] ([id number]) [address], [address] [place] [address] Glucose [Mass/Vol] 95 mg/dL Normal 65-99 [facility] Comment on above: Performed By: #### Haley ARENAS, 24467-8 #### [facility] ([id number]) [address], [address] [place] [address] Potassium [Moles/Vol] 4.6 mmol/L Normal 3.5-5.0 [facility] Comment on above: Performed By: #### Haley ARENAS, 75279-6 #### [facility] ([id number]) [address], [address] [place] [address] Protein [Mass/Vol] 7.0 g/dL Normal 6.0-8.0 [facility] Comment on above: Performed By: #### Haley ARENAS, 04468-6 #### [facility] ([id number]) [address], [address] [place] [address] Sodium [Moles/Vol] 142 mmol/L Normal 134-146 [facility] Comment on above: Performed By: #### Haley ARENAS, 35663-4 #### [facility] ([id number]) [address], [address] [place] [address] Urea nitrogen [Mass/Vol] 20 mg/dL Normal 5-23 [facility] Comment on above: Performed By: #### Haley ARENAS, 35197-4 #### [facility] ([id number]) [address], [address] [place] [address] Comprehensive metabolic pane feng 05-01-2023 Albumin [Mass/Vol] 4.1 g/dL 3.2 - 5.3 g/dL [facility] ALP [Catalytic activity/Vol] 75 U/L 39 - 130 U/L [facility] ALT No additional P-5'-P [Catalytic activity/Vol] 21 U/L 0 - 40 U/L [facility] Anion gap [Moles/Vol] 6 mmol/L 5 - 15 mmol/L [facility] AST [Catalytic activity/Vol] 13 U/L 0 - 41 U/L [facility] Bilirubin [Mass/Vol] 0.4 mg/dL 0.3 - 1 .2 mg/dL [facility] Calcium [Mass/Vol] 9.5 mg/dL 8.5 - 10. 5 mg/dL [facility] Chloride [Moles/Vol] 106 mmol/L 98 - 10 9 mmol/L [facility] CO2 [Moles/Vol] 30 mmol/L 22 - 32 mmol/L [facility] Creatinine [Mass/Vol] 0.96 mg/dL 0.60 - 1.30 mg/dL [facility] Comment on above: METHOD TRACEABLE TO [facility] STANDARD eGFR (CKD-EPI)non-race dependent - PINF [facility] Comment on above: Reported eGFR is based on the CKD-EPI 2020 equation that does not use a race coefficient. Glucose [Mass/Vol] 95 mg/dL 65 - 99 mg/dL [facility] Potassium [Moles/Vol] 4.6 mmol/L 3.5 - 5.0 mmol/L [facility] Protein [Mass/Vol] 7.0 g/dL 6.0 - 8.0 g/dL [facility] Sodium [Moles/Vol] 142 mmol/L 134 - 146 mmol/L [facility] Urea nitrogen [Mass/Vol] 20 mg/dL 5 - 23 mg/dL [facility] Lipid 1996 panelon 4 Cholesterol [Mass/Vol] 97 mg/dL Low 150 - 200 mg/dL [facility] Cholesterol in HDL [Mass/Vol] 40 mg/dL 39 - PINF mg/dL [facility] Comment on above: HDL <40 mg/dL - High Risk HDL > or = 40mg/dL- Desirable HDL >60 mg/dL - Negative Risk Cholesterol in LDL [Mass/Vol] 41 mg/dL NINF - 130 mg/dL [facility] Comment on above: LDL <100 mg/dL - Desirable LDL >160 mg/dL - High Risk Cholesterol in VLDL [Mass/Vol] 16 mg/dL 0 - 30 mg/dL [facility] Cholesterol.total/Ch olesterol in HDL [Mass ratio] 2.4 {ratio} 1.0 - 5.0 [facility] Interpretation and review of laboratory results Abnormal [facility] Triglyceride [Mass/Vol] 80 mg/dL 27 - 150 mg/dL [facility] Cholesterol [Mass/Vol] 97 mg/dL Low 150-200 [facility] Comment on above: Performed By: ###[place], [address]-7 #### [facility] ([id number]) [address], [address] [place] [address] Cholesterol in HDL [Mass/Vol] 40 mg/dL Normal >39 [facility] Comment on above: Result Comment: HDL <40 mg/dL - High Risk HDL > or = 40mg/dL- Desirable HDL >60 mg/dL - Negative Risk Performed By: #### Haley ARENAS, 35332-9 #### [facility] ([id number]) [address] [place] [address] Cholesterol in LDL [Mass/Vol] 41 mg/dL Normal <130 [facility] Comment on above: Result Comment: LDL <100 mg/dL - Desirable LDL >160 mg/dL - High Risk Performed By: #### Haley ARENAS, 26513-9 #### [facility] ([id number]) [address], [address] [place] [address] Cholesterol in VLDL [Mass/Vol] 16 mg/dL Normal 0-30 [facility] Comment on above: Performed By: #### C DAGOBERTO, 96364-2 #### [facility] ([id number]) [address], [address] [place] [address] CHOLESTEROL:HDL 2.4 Normal 1.0-5.0 [facility] Comment on above: Performed By: #### C DAGOBERTO, 66261-9 #### [facility] ([id number]) [address], [address] [place] [address] Triglyceride [Mass/Vol] 80 mg/dL Normal 27-150 [facility] Comment on above: Performed By: #### C DAGOBERTO, 77786-2 #### [facility] ([id number]) [address], [address] [place] [address] No Panel Informationon 05-01 [facility] Tobacco Screening.on 023 Adult depression screening assessment No [facility] 250 DO Work Phone: Fall risk assessment b) One or more fall s in the last year [facility] 250 DO Work Phone: Tobacco use status CPHS a) Yes [facility] 250 DO Work Phone: Tobacco Screening. Yes [facility] 250 DO Work Phone: 36on 08-23-2022 36 Left vm to reschedul e us and follow up from 08/17/22 [facility] Telephoneon 08-23-2022 Telephone [id number] Fidencio Doss as 1965 M Date Provider Department Center 08/23/2022 PATRIA ROCHE [facility] No family history on file [facility] XR LSPINE 2_3 VIEWSon 2022 XR [...] MICHAEL OROZCO Date: 2022-08-01 08:25 Normal [facility] XR HIPS LUPILLO 3_4V WO PELVISon [...] VASILE VITALE Date: 2022-07-31 14:23 Normal [facility] Office Visiton 05-08-2022 Follow-up visit [id number] Fidencio Doss 1965 M Date Provider Department Center 05/08/2022 WINIFRED HOWELL GLV [facility] No family history on file Level of Service:17329 [place] OFFICE/OUTPATIENT NEW LOW MDM 30-44 MINUTES Reason for Visit and Comments: New Patient [632] Normal [facility] BNPon 05-03-2022 Natriuretic peptide B (Bld) [Mass/Vol] 41.0 pg/mL Normal <=900.0 [facility] Comment on above: Performed By: #### H STROPN, LIPA, BNP, CMP ####[facility] [address] [place], [place] [address]Dr. Jazzy Powell CBC AUTO DIFFon 05-03-2022 BASO # 0.1 103/ul Normal 0.0-0.1 [facility] Comment on above: Performed By: #### C BC #### [facility] [address] [address] [address] Jazzy Powell Basophils/100 WBC (Bld) 0.5 % Normal 0.2-2.0 [facility] Comment on above: Performed By: #### C BC #### [facility] [address] [address] [address] Jazzy Powell EO # 0.3 103/ul Normal 0.0-0.7 [facility] Comment on above: Performed By: #### C BC #### [facility] [address] [address] [address] Jazzy Powell Eosinophils/100 WBC (Bld) 1.8 % Normal 0.9-7.0 [facility] Comment on above: Performed By: #### C BC #### [facility] [address] [address] [address] Jazzy Powell Erythrocyte distribution width (RBC) [Ratio] 13.1 % Normal 11.0-15.0 [facility] Comment on above: Performed By: #### C BC #### [facility] [address] [address] [address] Jazzy Powell Hematocrit (Bld) [Volume fraction] 40.7 % Critically low 42.0-54.0 [facility] Comment on above: Performed By: #### C BC #### [facility] [address] [address] [address] Jazzy Powell Hemoglobin (Bld) [Mass/Vol] 13.7 g/dL Critically low 14.0-18.0 [facility] Comment on above: Performed By: #### C BC #### [facility] [address] [address] [address] Jazzy Powell IG # 0.09 10e3/ul Critically high 0.00-0.03 [facility] Comment on above: Performed By: #### C BC #### [facility] [address] [address] [address] Jazzy Powell IG % 0.5 % Normal 0.0-0.5 [facility] Comment on above: Performed By: #### C BC #### [facility] [address] [place] [address] Dr. Jazzy Powell LYMPH # 4.7 103/ul Critically high 1.2-3.8 [facility] Comment on above: Performed By: #### C BC #### [facility] [address] [place] [address] Dr. Jazzy Powell Lymphocytes/100 WBC (Bld) 24.5 % Normal 20.5-60.0 [facility] Comment on above: Performed By: #### C BC #### [facility] [address] [place] [address] Dr. Jazzy Powell MANUAL DIFF REQ NO Normal [facility] Comment on above: Performed By: #### C BC #### [facility] [address] [place] [address] Dr. Jazzy Powell MCH (RBC) [Entitic mass] 30.8 pg Normal 25.9-34.0 [facility] Comment on above: Performed By: #### C BC #### [facility] [address] [place] [address] Dr. Jazzy Powell MCHC (RBC) [Mass/Vol] 33.7 g/dL Normal 29.9-35.2 [facility] Comment on above: Performed By: #### C BC #### [facility] [address] [place] [address] Dr. Jazzy Powell MCV (RBC) [Entitic vol] 91.5 fL Normal 80.0-94.0 [facility] Comment on above: Performed By: #### C BC #### [facility] [address] [place] [address] Dr. Jazzy Powell MONO # 2.5 103/ul Critically high 0.3-0.8 [facility] Comment on above: Performed By: #### C BC #### [facility] [address] [place] [address] Dr. Jazzy Powell Monocytes/100 WBC (Bld) 12.8 % Critically high 1.7-12.0 [facility] Comment on above: Performed By: #### C BC #### [facility] [address] [address] [address] Jazzy Powell NEUT # 11.6 103/ul Critically high 1.4-6.5 [facility] Comment on above: Performed By: #### C BC #### [facility] [address] [address] [address] Jazzy Powell Neutrophils/100 WBC (Bld) 59.9 % Normal 43.0-75.0 [facility] Comment on above: Performed By: #### C BC #### [facility] [address] [address] [address] Jazzy Powell Platelet mean volume (Bld) [Entitic vol] 8.4 fL Critically low 9.5-13.5 [facility] Comment on above: Performed By: #### C BC #### [facility] [address] [address] [address] Jazzy Powell PLT 332 103/ul Normal 150-450 [facility] Comment on above: Performed By: #### C BC #### [facility] [address] [address] [address] Jazzy Powell RBC 4.45 106/ul Critically low 4.70-6.10 [facility] Comment on above: Performed By: #### C BC #### [facility] [address] [address] [address] Jazzy Powell WBC 19.3 103/ul Critically high 4.0-11.0 [facility] Comment on above: Performed By: #### C BC #### [facility] [id number] Jazzy Powell CTA CHEST WO W [...] by: TANNER MACEDO Date: 2022-05-03 20:24 Normal [facility] LIPASEon 05-03-2022 Lipase [Catalytic activity/Vol] 126.0 U/L Normal 73.0-393.0 [facility] Comment on above: Performed By: #### H STROPN, LIPA, BNP, CMP ####[facility] [address] [address]Dr. Jazzy Powell PROF 14(COMP METB)on 023 Albumin [Mass/Vol] 3.5 g/dL Normal 3.4-5.0 [facility] Comment on above: Performed By: #### H STROPN, LIPA, BNP, CMP ####[facility] [address] [id number][address] Jazzy Powell Albumin/Globulin [Mass ratio] 1.0 {ratio} Normal [facility] Comment on above: Performed By: #### H STROPN, LIPA, BNP, CMP ####[facility] [address] [id number]. Jazzy Powell ALP [Catalytic activity/Vol] 101 U/L Normal 46-116 [facility] Comment on above: Performed By: #### H STROPN, LIPA, BNP, CMP ####[facility] [address] [address]Dr. Jazzy Powell ALT [Catalytic activity/Vol] 27 U/L Normal 16-63 [facility] Comment on above: Performed By: #### H STROPN, LIPA, BNP, CMP ####[facility] [address] [address]Dr. Jazzy Powell Anion gap [Moles/Vol] 6.1 mmol/L Normal [facility] Comment on above: Performed By: #### H STROPN, LIPA, BNP, CMP ####[facility] [address] [place], [place] [address]Dr. Jazzy Powell AST [Catalytic activity/Vol] 15 U/L Normal 15-37 [facility] Comment on above: Performed By: #### H STROPN, LIPA, BNP, CMP ####[facility] [address] [place], [place] [address]Dr. Jazzy Powell Bilirubin [Mass/Vol] 0.3 mg/dL Normal 0.2-1.0 [facility] Comment on above: Performed By: #### H STROPN, LIPA, BNP, CMP ####[facility] [address] [place], [place] [address]Dr. Jazzy Powell Calcium [Mass/Vol] 8.9 mg/dL Normal 8.5-10.1 [facility] Comment on above: Performed By: #### H STROPN, LIPA, BNP, CMP ####[facility] [address] [address]Dr. Jazyz Powell Chloride [Moles/Vol] 104 mmol/L Normal 98-107 [facility] Comment on above: Performed By: #### H STROPN, LIPA, BNP, CMP ####[facility] [address] [address]Dr. Jazzy Powell CO2 [Moles/Vol] 29.4 mmol/L Normal 21.0-32.0 [facility] Comment on above: Performed By: #### H STROPN, LIPA, BNP, CMP ####[facility] [address] [address]Dr. Jazzy Powell Creatinine [Mass/Vol] 0.85 mg/dL Normal 0.70-1.30 [facility] Comment on above: Performed By: #### H STROPN, LIPA, BNP, CMP ####[facility] [address] [address]Dr. Jazzy Powell EGFR-AF FAROESE >60 Normal >=60 [facility] Comment on above: Performed By: #### H STROPN, LIPA, BNP, CMP ####[facility] [address] [address]Dr. Jazzy Powell EGFR-NON AF FAROESE >60 Normal >=60 [facility] Comment on above: Performed By: #### H STROPN, LIPA, BNP, CMP ####[facility] [address] [place], [place] [address]Dr. Jazzy Powell Globulin (S) [Mass/Vol] 3.4 g/dL Normal [facility] Comment on above: Performed By: #### H STROPN, LIPA, BNP, CMP ####[facility] [address] [place], [place] [address]Dr. Jazzy Powell Glucose [Mass/Vol] 95 mg/dL Normal 74-106 [facility] Comment on above: Performed By: #### H STROPN, LIPA, BNP, CMP ####[facility] [address] [address]Dr. Jazzy Powell Potassium [Moles/Vol] 3.5 mmol/L Normal 3.5-5.1 [facility] Comment on above: Performed By: #### H STROPN, LIPA, BNP, CMP ####[facility] [address] [place], [place] [address]Dr. Jazzy Powell Protein [Mass/Vol] 6.9 g/dL Normal 6.4-8.2 [facility] Comment on above: Performed By: #### H STROPN, LIPA, BNP, CMP ####[facility] [address] [address]Dr. Jazzy Powell Sodium [Moles/Vol] 136 mmol/L Normal 136-145 [facility] Comment on above: Performed By: #### H STROPN, LIPA, BNP, CMP ####[facility] [address] [address]Dr. Jazzy Powell Urea nitrogen [Mass/Vol] 17.0 mg/dL Normal 7.0-18.0 [facility] Comment on above: Performed By: #### H STROPN, LIPA, BNP, CMP ####[facility] [address] [address]Dr. Jazzy Powell Urea nitrogen/Creatinine [Mass ratio] 20.0 mg/mg Normal [facility] Comment on above: Performed By: #### H STROPN, LIPA, BNP, CMP ####[facility] [address] [place], [place] [address]Dr. Jazzy Powell PROTIMEon 05-03-2022 INR Coag (PPP) [Relative time] 0.95 {INR} Normal [facility] Comment on above: Performed By: #### P TT, PT ####[facility] [address] [place], [place] [address]Dr. Jazzy Powell INR GUIDELINES SEE BELOW Normal [facility] Comment on above: Result Comment: ANNEMARIE RED INR: 2.0 - 3.0 CONDITIONS NOT LISTED BELOW 2.5 - 3.5 FOR PROSTHETIC HEART VALVE REPLACEMENT 2.5 - 3.5 RECURRENT THROMBOSIS Performed By: #### P TT, PT ####[facility] [address] [place], [place] [address]Dr. Jazzy Powell PT Coag (PPP) [Time] 10.1 s Normal 9.0-11.6 [facility] Comment on above: Performed By: #### P TT, PT ####[facility] [address] [place], [place] [address]Dr. Jazzy Powell PTTon 05-03-2022 aPTT Coag (Bld) [Time] 28.7 s Normal 22.3-36.2 [facility] Comment on above: Performed By: #### P TT, PT ####[facility] [address] [place], [place] [address]Zx. Jazzy Powell TROPONIN, HIGH SENSITIVITYon 05-03-2022 HSTROP 5.1 pg/mL Normal 4.0-76.1 [facility] Comment on above: Result Comment: CUT- OFF POINTS HAVE BEEN ESTABLISHED BASED ON THE FOURTH UNIVERSAL DEFINITIONS OF MYOCARDIAL INFARCTION. THE UPPER REFERENCE LIMIT (URL) OF TROPONIN, DEFINED THE 99TH PERCENTILE OF cTnI DISTRIBUTION IN A REFERENCE POPULATION, HAS BEEN CONFIRMED THE DECISION THRESHOLD FOR MS DIAGNOSIS. Performed By: #### H STROPN, LIPA, BNP, CMP ####[facility] [address] [place], [place] [address]Kw. Jazzy Powell Covid-19 PCR (CVDTB)on SARS-CoV-2 (COVID-19) RNA ALLIE+probe Ql (Unsp spec) Not detected Normal NOT DETECTED [facility] Comment on above: Result Comment: When [...] for this test is supported by the [place] of Health and Human Service's declaration that [...] used). Performed By: #### C VDTBH #### [facility] [address] [place], [place] [address] Dr. Jazzy Powell MRI FOOT LT WO CONon 01-01-2 022 MRI FOOT LT WO CON EXAM: [...] RAJIV PEACOCK Date: 2022-01-01 08:53 Normal [facility] Office Visit (Cardiology)on 10-19-2021 Follow-up visit [...] Weight Tips; Status:Complete - Retrospective Authorization; Done: [id number] Some eating tips that can help you lose weight.; Status:Complete - Retrospective Authorization; Done: [id number] SocHx: Current every day smoker Tobacco Use Screening; Status:Complete; Done: [id number] You need to quit smoking.; Status:Complete - Retrospective Authorization; Done: [id number] You need to stop smoking. Though it is not easy, more than half of all adult smokers have quit. We encourage you to write down all the reasons you should quit smoking and set a quit date for yourself. Ask us how we can help. You may also call 4-488-HSFTLifeIMAGENOW for free resources and assistance.; Status:Complete - Retrospective Authorization; Done: [id number] Unlinked Stop: Brilinta 90 MG Oral Tablet [...] negative for complaint. Vitals Vital Signs Recorded: [id number] 02:25PM Heart Rate74, L Radial Alqwjpix668, LUE, Sitting Cbbovglwm72, LUE, Sitting Height6 ft 2 in Yabjwz320 lb BMI Pzxpsqcrpw87.64 kg (more content not included)... Normal [employer] Tobacco Screening.on 022 Fall risk assessment a) No falls within the last year [facility] 250 DO Work Phone: Tobacco use status CP a) Yes [facility] 250 DO Work Phone: Tobacco Screening. Yes [facility] y 250 DO Work Phone: Christian 07-04-2021 CNPN Telephone (SPNSMN) ASHOK DOSS ([id number]) 1965 M Date Time Provider Department 07/04/[address] [facility] During your visit today, we recorded the [...] Encounter Status:Closed by [place] on 07/04/21 [facility] CNOVon 06-06-2021 CNOV Office Visit (SPNSMN ) ASHOK DOSS ([id number]) 1965 M Date Time Provider Department 06/06/21 [...] lumbar laminectomy approx. 20 years ago in [place]. Did well post-op with resolution of sciatica. Has had chronic low back pain. Over the last 6 months he describes episodes of his legs feeling like rubber . Would occur randomly. Over the last 3 months he's started to experience this in the arms as well. 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 Normal [facility] Office Visit (Cardiology)on 05-26-2021 Follow-up visit [...] we can help. You may also call 0-998-YHDO-NOW for free resources and assistance.; Status:Complete - [...] wall myocardial infarction. He was taken to [place] where he had a coronary intervention and [...] have been (more content not included)... Normal [employer] Tobacco Screening.on 022 Adult depression screening assessment No [facility]Bug 600 DO Work Phone: Heart Rate Regular [facility] 600 DO Work Phone: Tobacco use status CP a) Yes [facility] [employer] 600 DO Work Phone: Tobacco Screening. Yes [facility] 600 DO Work Phone: CNPNon 05-17-2021 [facility] Telephone (NIQ) ASHOK DOSS ([id number]) 1965 M Date Time Provider Department 05/17/21 ASHIA BERMEO During your visit today, we recorded the following information about you: Liset Lazcano Auto Damage Trainee 05/17/2021 12:43 PM Addendum .Received the following record(s) via fax. -XR Foreign Body Eye, MRI Cspine wo Date 05/05/21 Record(s) scanned into pt's chart. Ashia Bermeo APRN.CORRESPONDENCE DICTATOR 05/17/2021 3:18 PM Signed Awaiting CD copy of imaging. Ashia Bermeo APRN.CORRESPONDENCE DICTATOR Allergies As of Date: 05/17/2021 (No Known [...] Encounter Status:Closed by ASHIA BERMEO on 05/17/21 [facility] 05[facility]04[facility]20[facility]) ASHOK DOSS ([id number]) 1965 M Date Time Provider Department 05/04/21 ASHIA BERMEO NIQ During your visit today, we recorded the following information about you: Liset Lazcano Auto Damage Trainee 05/04/2021 11:44 AM Signed Lulu from [facility] requesting an Orbit order. Pt is scheduled tomorrow for MRI. Fax - [facility] - [phone] Catherine Stuart RN 05/04/2021 12:16 PM Signed Neuro SPINE CARE COORDINATION QUICK NOTE MRI Cervical order faxed to provided number. Catherine Stuart, RN Customer Operations Manager Ritatheresa Calderonrosetta [facility] [place]/04/2021 1:41 PM Signed XR Eye Foreign [...] Encounter Status:Closed by CATHERINE STUART on 05/04/21 [facility] CNOVon 04-24-2021 CNOV Office Visit (SPNSMN ) ASHOK DOSS ([id number]) 1965 M Date Time Provider Department 04/24/21 2:15 PM ASHIA BERMEO NSMO During your visit today, we recorded the following information about you: Pulse Respiration Blood pressure Weight 79/minute 18/minute 139/68 118.7 kg Height 1.88 m Ashia Bermeo APRN.CORRESPONDENCE DICTATOR 04/24/2021 3:14 PM Signed SPINE SURGERY OUTPATIENT [...] lumbar laminectomy approx. 20 years ago in [place]. Did well post-op with resolution of sciatica. [...] Distances ANTIPLATELET OR ANTICOAGULATION STATUS: Yes Previous MS PREVIOUS SPINAL SURGERY: SURGERY #1: L5-S1 Laminectomy in [place] approx. 20 years ago There is no [...] vision or hearing. CARDIOVASCULAR: Hypertension and previous MS RESPIRATORY: Denies SOB, sputum production, and hemoptysis. [...] PHQ-9 04/17/2021 (more content not included)... Normal [facility] Office Visit (Cardiology)on 12-27-2020 Follow-up visit [...] year old male that [facility] with his for follow-up on testing. He follows with his primary adult care manager Dr. Stacy and was added to my schedule today. He has a recent history of an MS with cardiac catheterization 11/18/2020 with PCI and [...] see if cardiac rehabilitation is possible at [facility] that is closest to his home. [...] 1. CAD; with acute inferior ST elevation MS requiring cardiac catheterization 11/18/2020 with PCI and [...] itching CARDIOVASCULAR:N (more content not included)... Normal [employer] Tobacco Screening.on 021 Fall risk assessment a) No falls within the last year [facility] Jackrabbit DO Work Phone: Tobacco use status CP a) Yes [facility] [employer] 127 DO Work Phone: Tobacco Screening. Yes [facility] [employer] 127 DO Work Phone: Cardiac Stress Teston [address] [facility] Rosa ain [address], [address], [place] [address] Exercise Stress Test Patient Name: ASHOK DOSS Ordering Physician: Sheridan Stacy MD Study Date: 12/23/2020 Reading Physician: [id number] Antony Pena MD, [facility] MRN/PID: [id number] Supervising Physician: Accession/Order#: [id number] Referring Physician: Sheridan STACY Date of : 1965 PCP: Gender: M Fellow: Height: 187.96 cm Nurse: Frida Dewey RN Weight: 119.75 kg Lead Ruby On Rails Developer: N/A BSA: 2.45 m2 Technologist: BMI: 33.90 kg/m2 Additional Staff: Age: 55 years cc report to: Patient Location: [facility] cc report to: [id number] Rachel Stacy MD Study Type: Cardiac Stress Test Diagnosis/ICD: I25.10-Atherosclerotic heart disease; I21.19-ST elevation (STEMI) myocardial infarction involving other coronary artery of inferior wall Indication: CAD, INF. MS Procedure/CPT: Stress Test Interpretation-[id number]; Stress Test Supervision-[id number] Falls Risk: Patient Performance: The patient exercised [...] The inadequate level of stress was achieved. [id number] Pena MD, [facility] Electronically signed on 12/23/2020 at 5:13:30 PM Final Normal [facility] Cardiac Stress Test MP-No rth [facility] [address] [place] Work Phone: Echocardiogramon 12-23-2020 Echocardiography [facility] [address], [address] [address] TRANSTHORACIC ECHOCARDIOGRAM REPORT Patient Name: ASHOK Callahan Physician: Sunil Pena MD, [facility] Study Date: 12/23/2020 Referring Physician: [id number] STACY MRN/PID: [id number] PCP: Colten Parra MD Accession/Order#: [id number] Department Location: [facility] Date of : 1965 Fellow: Gender: M Nurse: Admit Date: Lead Ruby On Rails Developer: Latanya Yadav RDCS, RT(R), RDMS, RVT Height: 187.96 cm CC Report to: Weight: 119.75 kg Study Type: Echocardiogram BSA: 2.45 m2 Diagnosis/ICD: I25.10-Atherosclerotic heart disease of [place] coronary artery without angina pectoris; I21.19-ST elevation (STEMI) myocardial infarction involving other coronary artery of inferior wall Indication: HTN PTCA Procedure/CPT: Echo Complete w Full Doppler-63200 Study Detail: The following Echo studies were [...] 0.8 m/s (0.6-0.9m/s) PV Max P.5 mmHg [id number] Antony Pena MD, FACC Electronically signed on 12/23/2020 at 11:56:24 AM Final Normal [facility] Echocardiography Please click on the link to view the study images Normal -[facility] [address] [place] Work Phone: Discharge Planning [id number] 0 11-20-2020 Discharge Planning Note2 Discharge Planning: Discharge Barriersnone [facility] PCP/Next Provider Follow Up Scheduledyes Anticipated Discharge [id number] Discharge Planning 11/20/20 tcc NOTE: ROUNDED WITH NURSING, PT ADMITTED FOR NSTEMI, STARTED ON BRILINTA. ADDED WEAPONS SYSTEM INSTRUMENT MECHANIC REFERRAL TO FOLLOW OUTPT . PT TO BE DISCHARGED WITH PRESCRIPTION FOR BRILINTA. DISCOUNT BRIL[place]TA CARD PROVIDED TO NURSING WITH GOOD RX . PT TO BE DISCHARGED HOME ON THIS DATE. NO FURTHER NEEDS IDENTIFIED. NURSING AM-PAC 24, PLAN IS HOME WITH FAMILY. ANJELICA RUSS RN TCC Assessment: Discharge Planning Assessment [id number] Discharge Documentation: Discharge/Transfer Date/Myrt23-Rhc-7774 14:21 Discharged Accompanied Byspouse Discharge Modeambulatory Transportation Methodprivate car Valuables/Medications/B elongings Returnedyes Final DispositionHome Electronic Signatures: Anjelica Russ (LEAD BUSINESS ANALYST) (Signed 20-Nov-2020 13:02) Authored: Discharge Planning, Assessment Madhavi Moore (RN) (Signed 20-Nov-2020 14:21) Authored: Discharge Planning, Discharge Documentation Last Updated: 20-Nov-2020 14:21 by Madhavi Moore (RN) Normal [facility] Discharge [id number] 021 Discharge Profile2 Discharge Orders: Anticipated Discharge Date: Anticipated Discharge [id number] Anticipated Discharge Time12:18 Problem List: Additional Dx: [...] hour away, and will be seeking a adult care manager closer to home, but will be seen at [facility] with me within 1 week [...] Physician/Dept/ServiceP nacho call Dr. Stacy's office at [phone], patient should be seen within the next week. Call to Schedule in1 week Electronic Signatures: Rachel Stacy) (Signed 20-Nov-2020 12:27) Authored: Discharge Orders, Hospital Course (Home Care/Gold Form), Provider FINAL REVIEW of Orders, Appointments, Gold Form - Aircraft Maintenance Director Summary Last Updated: 20-Nov-2020 12:27 by Rachel Stacy) [facility] Order Reconciliationon 11-20 Order Reconciliation Page 1 [...] patch TransDermal Every 24 HoursNotes from Pharm[facility] 18-Nov-2020 23:39 nicotine 21 mg/24 hr [...] tab(s) orally 2 times a day Normal [facility] APTTon 11-19-2020 APTT Canceled Normal [facility] Comment on above: Order Comment: TEST APTT WAS CANCELLED, 11/19/2020 03:59 DUPLICATE ORDER. Result Comment: THE APTT IS NO LONGER USED FOR MONITORING UNFRACTIONATED HEPARIN THERAPY. FOR MONITORING HEPARIN THERAPY, USE THE HEPARIN ASSAY. Performed By: #### A PTT ####[facility] [place], [place] [id number] aPTT Coag (Bld) [Time] 28 s Normal 25 - 35 [facility] Comment on above: Result Comment: THE APTT IS NO LONGER USED FOR MONITORING UNFRACTIONATED HEPARIN THERAPY. FOR MONITORING HEPARIN THERAPY, USE THE HEPARIN ASSAY. Performed By: #### A PTT #### [address] [id number] BASIC METABOLIC PANELon 11-02 Anion gap [Moles/Vol] 12 mmol/L Normal 10 - 20 [facility] Comment on above: Performed By: #### B MP #### [address] [id number] Calcium [Mass/Vol] 8.4 mg/dL Low 8.6 - 10.3 [facility] Comment on above: Performed By: #### B MP #### [address] [id number] Chloride [Moles/Vol] 109 mmol/L High 98 - 107 [facility] Comment on above: Performed By: #### B MP #### [address] [id number] Creatinine [Mass/Vol] 0.83 mg/dL Normal 0.50 - 1.30 [facility] Comment on above: Performed By: #### B MP #### [address] [id number] GFR- AM. >60 Normal >60 [facility] Comment on above: Result Comment: CALC ULATIONS OF ESTIMATED GFR ARE PERFORMED USING THE MDRD STUDY EQUATION FOR THE IDMS-TRACEABLE CREATININE METHODS. CLIN CHEM 2007;53:766-72 Performed By: #### B MP #### [address] [id number] GFR-NON AM. >60 Normal >60 [facility] Comment on above: Performed By: #### B MP #### [address] [id number] Glucose [Mass/Vol] 115 mg/dL High 74 - 99 [facility] Comment on above: Performed By: #### B MP #### [address] [id number] HCO3 (Bld) [Moles/Vol] 23 mmol/L Normal 21 - 32 [facility] Comment on above: Performed By: #### B MP #### [facility] [address] [place], [place] [id number] Potassium [Moles/Vol] 3.8 mmol/L Normal 3.5 - 5.3 [facility] Comment on above: Performed By: #### B MP #### [facility] [address] [place], [place] [id number] Sodium [Moles/Vol] 140 mmol/L Normal 136 - 145 [facility] Comment on above: Performed By: #### B MP #### [address] [id number] Urea nitrogen [Mass/Vol] 20 mg/dL Normal 6 - 23 [facility] Comment on above: Performed By: #### B MP #### [address] [id number] CBCon 11-19-2020 Erythrocyte distribution width (RBC) [Ratio] 13.3 % Normal 11.5 - 14.5 [facility] Comment on above: Performed By: #### C BC ####[facility] [place], [place] [id number] Hematocrit (Bld) [Volume fraction] 41.2 % Normal 41.0 - 52.0 [facility] Comment on above: Performed By: #### C BC ####[facility] [place], [place] [id number] Hemoglobin (Bld) [Mass/Vol] 13.5 g/dL Normal 13.5 - 17.5 [facility] Comment on above: Performed By: #### C BC ####[facility] [place], [place] [id number] MCHC (RBC) [Mass/Vol] 32.8 g/dL Normal 32.0 - 36.0 [facility] Comment on above: Performed By: #### C BC ####[facility] [place] [id number] MCV (RBC) [Entitic vol] 93 fL Normal 80 - 100 [facility] Comment on above: Performed By: #### C BC ####[facility] [place], [place] [id number] Platelets (Bld) [#/Vol] 333 10*3/uL Normal 150 - 450 [facility] Comment on above: Performed By: #### C BC ####[facility] [place], [place] [id number] RBC 4.42 x10E12/L Low 4.50 - 5.90 [facility] Comment on above: Performed By: #### C BC ####[facility] [place], [place] [id number] WBC (Bld) [#/Vol] 22.9 10*3/uL High 4.4 - 11.3 [facility] Comment on above: Performed By: #### C BC ####[place] [address] [place], [place] [id number] Consult-Critical Careon 11-02 Consult-Critical Care Service: Service: Critical Care Consult: Consult requested by (Attending Name): Rachel Stacy Reason: ICU MANAGEMENT History of Present Illness: Admission Reason: Inferior Wall STEMI HPI: ASHOK DOSS is a 55 year old Male Pmhx HTN and active smoker Present[facility] to [facility] ED [place] d/t Chest pain. Described it as crushing mid sternal pain with radiation to the Left arm. He went to [facility] Last week d/t CP and had respiratory complaints and was sent home and was told he had bronchitis and CP could be 2/2 to. He states he had CP before but never like this, he associated complaints with diaphoresis, presyncopal x2 and weakness. No history of MS before but he is an active pack [...] ankle surgery, carpal tunnel Family history: Father MS, CHF Mother: CAD Social History: Pack a [...] prophylaxis Heme/ID: Elevated WBC 2/2 reactive to MS SCDs for DVT prophylaxis, Enoxaparin -pharmacological DVT measures -hold for now Msk/Integumentaty PT/OT Social/family/dispo: admit to ICU Code; Full *Plan discussed at length with bedside RN and Dr. Zaid Posey MD Consult Status: Consult Order ID: [id number] Attestation: Note Completion: I am a: Advanced Practice Provider Attending Only - Shared Visit with Advanced Practice ProviderThis is a shared visit. I have revi (more content not included)... Normal [facility] Daily Progress Note - Critic al [...] 150-170mmhg. Objective Data: Objective Information T PRBPSpO2 [id number]/7799% Date/Time11/19 1:309/18 17:41918 17:41918 17:41918 17:41 Range(37.1C [...] ----- Mn/Dy/Year TimeIntakeOutputNet Nov 19, 2020 6:00 [id number] The Intake and Output Totals for the last 24 hours are: IntakeOutputNet [id number] Date: Weight/Scale Type: 18-Nov-2020 23:49260.7 kg Physical Exam by System: Neurological: alert [...] the bedside L3 Electronic Signatures: Leia Stearns (CONVEYOR LINE BATTERY CHARGER-CORRESPONDENCE DICTATOR) (Signed 19-Nov-2020 18:30) Authored: Service, Subjective Data, Objective Data, Assessment and Plan José Miguel Posey) (Signed 19-Nov-2020 22:22) Authored: Note Completion Last Updated: 19-Nov-2020 22:22 by José Miguel Posey) [facility] Daily Progress Note-Cardiolo gayle 11-19-2020 Daily Progress [...] 2. Objective Data: Objective Information: T PRBPSpO2 [id number]/8297% Date/Time11/19 1: 13: 13: 13: 13:30 Range(37.1C [...] None ---- Intake and Output ----- Mn/Dy/Year [facility]Out[facility] Nov 19, 2020 6:00 [id number] The Intake and Output Totals for the last 24 hours are: IntakeOutalta [facility] hospitalNet [id number] Recent Lab Results: Results: CBC: 11/19/2020 05:23 [...] Updated: 19-Nov-2020 17:17 by Rachel Stacy) Normal [facility] HEPARIN ASSAY,UFHon 11-20-19 21 HEPARIN ASSAY,UFH [...] please refer to local Pharmacy and the [facility] Guidelines for Anticoagulation therapy available on the [facility] intranet at: [email or web address]/Pages/Ramona_[facility]_Rene james_for_Anticoagu.aspx Performed By: #### T ROP2 #### [address] [id number] HEPARIN ASSAY,UFH 0.2 IU/mL Normal [facility] Comment on above: Result Comment: The therapeutic reference range for UFH may be either 0.3-0.6 IU/mL or 0.3-0.7 IU/mL based on the clinical setting for anticoagulant therapy and the associated nomogram used. For heparin dosing guidelines based on clinical scenario and Heparin Assay results, please refer to local Pharmacy and [facility] Guidelines for Anticoagulation therapy available on the [facility] intranet at: [email or web address]/Pharmacy/Pages/Ramona_[facility] pitals_Guid elines_for_Anticoagu.aspx Performed By: #### T ROP2 #### [address] [id number] HEPARIN ASSAY,UFH <0.1 Normal [facility] Comment on above: Result Comment: The therapeutic reference range for UFH may be either 0.3-0.6 IU/mL or 0.3-0.7 IU/mL based on the clinical setting for anticoagulant therapy and the associated nomogram used. For heparin dosing guidelines based on clinical scenario and Heparin Assay results, please refer to local Pharmacy and [facility] Guidelines for Anticoagulation therapy available on the [facility] intranet at: [email or web address]/Pharmacy/Pages/Ramona_[facility] pitals_Guid elines_for_Anticoagu.aspx Performed By: #### T ROP2 #### [address] [id number] MAGNESIUMon 11-19-2020 Magnesium [Mass/Vol] 1.80 mg/dL Normal 1.60 - 2.40 [facility] Comment on above: Performed By: #### T ROP2 #### [address] [id number] Measurementson 11-19-2020 Measurements Weight: Weight in kg124.7 kilogram(s) Height: Height in cm188 centimeter(s) Trinidadian Unit Translation (pounds, inches): Measurement Trinidadian Unit Translations (Adult only): Weight in hos415.916 pound(s) Electronic Signatures: Maggie Muir (STAFF N) (Signed 18-Nov-2020 23:08) Authored: Weight, Height, Trinidadian Unit Translation (pounds, inches) Last Updated: 18-Nov-2020 23:08 by Maggie Muir (STAFF N) Normal [facility] PT/INRon 11-19-2020 PROTHROMBIN TIME Canceled Normal [facility] Comment on above: Order Comment: TEST PT/INR WAS CANCELLED, 11/19/2020 01:33 Performed By: #### P TINR #### [address] [id number] PT, INR Canceled Normal [facility] Comment on above: Order Comment: TEST PT/INR WAS CANCELLED, 11/19/2020 01:33 Performed By: #### P TINR #### [address] [id number] PT Coag (PPP) [Time] 12.8 s Normal 10.1 - 13.3 [facility] Comment on above: Performed By: #### P TINR #### [address] [id number] PT, INR 1.1 Normal 0.9 - 1.1 [facility] Comment on above: Performed By: #### P TINR #### [address] [id number] TROPONIN Ion 11-19-2020 Troponin I.cardiac [Mass/Vol] 10.69 ng/mL Critically high 0.00 - 0.03 [facility] Comment on above: Order Comment: Hedy [...] is performed using different testing methodology at [facility] than at other [facility]. Direct result comparisons should only be made within the same method. Orly JOSE to Shelia GOODMAN , 11/19/2020 21:43 Performed By: #### T ROP2 #### [address] [id number] Troponin I.cardiac [Mass/Vol] 12.77 ng/mL Critically high 0.00 - 0.03 [facility] Comment on above: Order Comment: Hedy [...] is performed using different testing methodology at [facility] than at other [facility]. Direct result comparisons should only be made within the same method. Called- RB to Michaelle David, 11/19/2020 13:36 Performed By: #### T ROP2 #### [address] [id number] Troponin I.cardiac [Mass/Vol] 18.39 ng/mL Critically high 0.00 - 0.03 [facility] Comment on above: Order Comment: Hedy [...] is performed using different testing methodology at [facility]. Direct result comparisons should only be made within the same method. Called- RB to Omar Muir, 11/19/2020 06:26 Performed By: #### T ROP2 #### [address] [id number] TROPONIN I Canceled Normal [facility] Comment on above: Order Comment: Hedy [...] is performed using different testing methodology at [facility] than at other [facility]. Direct result comparisons should only be made within the same method. Performed By: #### T ROP2 #### [facility] [address] [place], [place] [id number] Troponin I.cardiac [Mass/Vol] 17.54 ng/mL Critically high 0.00 - 0.03 [facility] Comment on above: Order Comment: Hedy d- RB to Bandar Baez, 11/19/2020 02:22 [...] is performed using different testing methodology at [facility] than at other [facility]. Direct result comparisons should only be made within the same method. Called- RB to Bandar Baeztevin, 11/19/2020 02:22 Performed By: #### T ROP2 ####[facility] [place], [place] [id number] ACT-LOW RANGEon 11-18-2020 ACT-LOW RANGE 294 SECONDS High 89 - 169 [facility] Comment on above: Result Comment: Note new reference range as of 06/06/2018. Target ACT range will vary based on the patient population, clinical status, and surgical intervention occurring. Performed By: #### T ROP2 #### [facility] [address] [place], [place] [id number] ACT-LOW RANGE 207 SECONDS High 89 - 169 [facility] Comment on above: Result Comment: Note new reference range as of 06/06/2018. Target ACT range will vary based on the patient population, clinical status, and surgical intervention occurring. Performed By: #### T ROP2 #### [address] [id number] BNPon 11-18-2020 Natriuretic peptide B (Bld) [Mass/Vol] 33 pg/mL Normal 0 - 99 [facility] Comment on above: Result Comment: . <1 00 pg/mL - Heart failure unlikely 100-299 pg/mL - Intermediate probability of acute heart . failure exacerbation. Correlate with clinical . context and patient history. >=300 pg/mL - Heart Failure likely. Correlate with clinical . context and patient history. BNP testing is performed using different testing methodology at [facility] than at other [facility]. Direct result comparisons should only be made within the same method. Performed By: #### B MP #### [address] [id number] CBCon 11-18-2020 Erythrocyte distribution width (RBC) [Ratio] 13.3 % Normal 11.5 - 14.5 [facility] Comment on above: Performed By: #### C BC ####[address] [id number] Hematocrit (Bld) [Volume fraction] 44.7 % Normal 41.0 - 52.0 [facility] Comment on above: Performed By: #### C BC ####[address] [id number] Hemoglobin (Bld) [Mass/Vol] 14.6 g/dL Normal 13.5 - 17.5 [facility] Comment on above: Performed By: #### C BC ####[address] [id number] MCHC (RBC) [Mass/Vol] 32.7 g/dL Normal 32.0 - 36.0 [facility] Comment on above: Performed By: #### C BC ####[address] [place], [place] [id number] MCV (RBC) [Entitic vol] 92 fL Normal 80 - 100 [facility] Comment on above: Performed By: #### C BC ####[facility] [place], [place] [id number] Platelets (Bld) [#/Vol] 395 10*3/uL Normal 150 - 450 [facility] Comment on above: Performed By: #### C BC ####[facility] [place], [place] [id number] RBC 4.85 x10E12/L Normal 4.50 - 5.90 [facility] Comment on above: Performed By: #### C BC ####[address] [place], [place] [id number] WBC (Bld) [#/Vol] 21.9 10*3/uL High 4.4 - 11.3 [facility] Comment on above: Performed By: #### C BC ####[address] [place], [place] [id number] CHEST 1 VIEWon 11-18-2020 CHEST 1 VIEW STUDY: Chest Radiograph; 11/18/2020 7:22 PM. INDICATION: Concern for dissection, chest pain. COMPARISON: None Available. ACCESSION NUMBER(S): [id number] ORDERING CLINICIAN: JERRY BLAIR MD TECHNIQUE: Frontal chest was obtained at 1919 hours. FINDINGS: CARDIOMEDIASTINAL SILHOUETTE: Cardiomediastinal silhouette is normal in size and configuration. LUNGS: Lungs are clear. ABDOMEN: No remarkable upper abdominal findings. BONES: No acute osseous changes. IMPRESSION: No acute cardiopulmonary process seen. Signed by Racquel Griffiths MD Electronically signed by: RACQUEL GRIFFITHS MD Normal [facility] COMPREHENSIVE PANELon 2020 Albumin [Mass/Vol] 4.2 g/dL Normal 3.4 - 5.0 [facility] Comment on above: Performed By: #### C MP ####[address] [place], [place] [id number] ALP [Catalytic activity/Vol] 74 U/L Normal 33 - 120 [facility] Comment on above: Performed By: #### C MP ####[address] [place] [id number] ALT [Catalytic activity/Vol] 19 U/L Normal 10 - 52 [facility] Comment on above: Result Comment: Carmelita ents treated with Sulfasalazine may generate falsely decreased results for ALT. Performed By: #### C MP ####[facility] [place] [phone] Anion gap [Moles/Vol] 12 mmol/L Normal 10 - 20 [facility] Comment on above: Performed By: #### C MP ####[facility] [place] [address] [phone] AST [Catalytic activity/Vol] 15 U/L Normal 9 - 39 [facility] Comment on above: Performed By: #### C MP ####[address] [id number] Bilirubin [Mass/Vol] 0.3 mg/dL Normal 0.0 - 1.2 [facility] Comment on above: Performed By: #### C MP ####[address] [id number] Calcium [Mass/Vol] 9.4 mg/dL Normal 8.6 - 10.3 [facility] Comment on above: Performed By: #### C MP ####[address] [id number] Chloride [Moles/Vol] 107 mmol/L Normal 98 - 107 [facility] Comment on above: Performed By: #### C MP ####[address] [id number] Creatinine [Mass/Vol] 1.12 mg/dL Normal 0.50 - 1.30 [facility] Comment on above: Performed By: #### C MP ####[address] [id number] GFR- AM. >60 Normal >60 [facility] Comment on above: Result Comment: CALC ULATIONS OF ESTIMATED GFR ARE PERFORMED USING THE MDRD STUDY EQUATION FOR THE IDMS-TRACEABLE CREATININE METHODS. CLIN CHEM 2007;53:766-72 Performed By: #### C MP ####[address] [id number] GFR-NON AM. >60 Normal >60 [facility] Comment on above: Performed By: #### C MP ####[address] [id number] Glucose [Mass/Vol] 113 mg/dL High 74 - 99 [facility] Comment on above: Performed By: #### C MP ####[address] [id number] HCO3 (Bld) [Moles/Vol] 28 mmol/L Normal 21 - 32 [facility] Comment on above: Performed By: #### C MP ####[address] [id number] Potassium [Moles/Vol] 3.8 mmol/L Normal 3.5 - 5.3 [facility] Comment on above: Performed By: #### C MP ####[address] [id number] Protein [Mass/Vol] 7.0 g/dL Normal 6.4 - 8.2 [facility] Comment on above: Performed By: #### C MP ####[address] [id number] Sodium [Moles/Vol] 143 mmol/L Normal 136 - 145 [facility] Comment on above: Performed By: #### C MP ####[address] [id number] Urea nitrogen [Mass/Vol] 19 mg/dL Normal 6 - 23 [facility] Comment on above: Performed By: #### C MP ####[address] [id number] CORONAVIRUS 2019, SCREEN ASY MPTOMATICon 11-18-2020 SARS-CoV-2 (COVID-19) RNA ALLIE+probe Ql (Unsp spec) Not detected Normal Not Detected [facility] Comment on above: Result Comment: . This test has received FDA Emergency Use Authorization (EUA) and has been verified by [facility]. This test is only authorized for the duration of time that circumstances exist to justify the authorization of the emergency use of in vitro diagnostic tests for the detection of SARS-CoV-2 virus and/or diagnosis of COVID-19 infection under section 564(b)(1) of the Act, 21 U.S.C. 360bbb-3(b)(1), unless the authorization is terminated or revoked sooner. [facility] is certified under CLIA-88 as qualified to perform high complexity testing. Testing is performed in the [facility] laboratory located at [address] [place] [address]. SARS-CoV-2/Flu/RSV Multiplex Test: Fact sheet for providers: https://www.fda.gov/media/285877/download Fact sheet for patients: https://www.fda.gov/media/023851/download Performed By: #### C OVSC ####[address] [place], [place] [id number] Lab Specimen Source Nasal, Nasopharyngeal Normal [facility] Comment on above: Performed By: #### C OVSC ####[address] [place], [place] [id number] Covid 19 Resultson 1 SARS-CoV-2 (COVID-19) RNA [...] may also be contacted by the [facility] to see if any of [...] or Naproxen (Aleve) can also be used. Umlx-rgx-awwnity cough and cold medicines can be used according to the instructions on the package. Some dyjh-fuc-xufskyr medicines also contain acetaminophen. Make sure you [...] water are not available, use alcohol-based hand varnisher. Avoid touching your eyes, nose, and mouth [...] 24 oliva (more content not included)... Normal [facility] PCI (Percutaneous Cardiac In tervention)on 11-18-2020 PCI (Percutaneous Cardiac Intervention) [facility], Astro Technician [address] [place] [address] Cardiovascular Catheterization Report Patient Name: Ashok Doss Performing Physician: Sheridan Stacy MD Study Date: 11/18/2020 Verifying Physician: Sheridan Stacy MD MRN/PID: [id number] Line Prep Cook: Accession/Order#: [id number] Referring Physician: [id number] José Miguel Posey MD Date of : 1965 Referring Physician: Gender: M Referring Physician: [id number] Rachel Stacy MD Study: Left Heart Catheterization [...] a modified Seldinger technique. Subsequently a 6 Estonian sheath was placed in the right femoral [...] less than 10% distal stenosis. First septal ham boner is moderately large and has 0% stenosis. [...] used. Complications (more content not included)... Normal [facility] Provider Note - ED v3on - Provider [...] try and relieve some of his symptoms. Astro Technician was activated prehospital and the Astro Technician team was at the bedside upon his arrival. Obtained a quick chest x-ray given he reported that the pain was sharp and radiating to his arm which not show pneumothorax and did not show a widened mediastinum so I doubt he is having dissection. Astro Technician was available so patient was taken directly to Astro Technician for percutaneous intervention for his ST segment elevation MS. I did speak with the floor trader team to let them know that the patient be coming to them afterwards. DIAGNOSIS: STEMI DISPOSITION: 1) Astro Technician HISTORY OF PRESENTING ILLNESS ASHOK is a [...] Updated: 18-Nov-2020 20:27 by Jerry Blair) Normal [facility] TROPONIN Ion 11-18-2020 Troponin I.cardiac [Mass/Vol] 0.03 ng/mL Normal 0.00 - 0.03 [facility] Comment on above: Result Comment: LESS [...] is performed using different testing methodology at [facility] than at other [facility]. Direct result comparisons should only be made within the same method. Performed By: #### T LENO ####[facility] [place], [place] [id number] Troponinon 05-05-2020 Troponin I.cardiac [Mass/Vol] 7 ng/L Normal 0-22 [facility] Comment on above: Result Comment: High Sensitivity Troponin values cannot be compared with other Troponin methodologies. Patients with high levels of Biotin oral intake (i.e >5mg/day) may have falsely decreased Troponin levels. Samples collected within 8 hours of biotin intake may require additional information for diagnosis. Performed By: #### T ALEXANDRAI #### [employer] [address] [place] [address] [id number] Workers' Compensation Claims Supervisor: Shane Peña MD Troponin I.cardiac [Mass/Vol] NOT REPORTED Localist Phone: Troponin T.cardiac [Mass/Vol] NOT REPORTED <0.03 ng/mL Localist Phone: Troponin, High Sensitivity 7 ng/L 0 - 22 ng/L Localist Phone: Comment on above: High Sensitivity Troponin values cannot be compared with other Troponin methodologies. Patients with high levels of Biotin oral intake (i.e >5mg/day) may have falsely decreased Troponin levels. Samples collected within 8 hours of biotin intake may require additional information for diagnosis. Troponinon 05-04-2020 Troponin I.cardiac [Mass/Vol] NOT REPORTED Normal [facility] Comment on above: Performed By: #### T WILLY #### [employer] [address] [place] [address] [phone] Workers' Compensation Claims Supervisor: Shane Peña MD CBCon 05-03-2020 Erythrocyte distribution width (RBC) [Ratio] 12.9 % Normal 11.8-14.4 [facility] Comment on above: Performed By: #### C BC, CP, LIPR, TSH #### [address] [address] Workers' Compensation Claims Supervisor: Shane Peña MD Hematocrit (Bld) [Volume fraction] 43.3 % Normal 40.7-50.3 [facility] Comment on above: Performed By: #### C BC, CP, LIPR, TSH #### [address] [address] Workers' Compensation Claims Supervisor: Shane Peña MD Hemoglobin (Bld) [Mass/Vol] 14.0 g/dL Normal 13.0-17.0 [facility] Comment on above: Performed By: #### C BC, CP, LIPR, TSH #### [address] [address] Workers' Compensation Claims Supervisor: Shane Peña MD MCH (RBC) [Entitic mass] 29.6 pg Normal 25.2-33.5 [facility] Comment on above: Performed By: #### C BC, CP, LIPR, TSH #### [address] [address] Workers' Compensation Claims Supervisor: Shane Peña MD MCHC (RBC) [Mass/Vol] 32.3 g/dL Normal 28.4-34.8 [facility] Comment on above: Performed By: #### C BC, CP, LIPR, TSH #### [address] [address] Workers' Compensation Claims Supervisor: Shane Peña MD MCV (RBC) [Entitic vol] 91.5 fL Normal 82.6-102.9 [facility] Comment on above: Performed By: #### C BC, CP, LIPR, TSH #### [address] [address] Workers' Compensation Claims Supervisor: Shane Peña MD NRBC Automated 0.0 per 100 WBC Normal 0.0 [facility] Comment on above: Performed By: #### C BC, CP, LIPR, TSH #### [facility] [employer] [address] [place] [address] 19645 Workers' Compensation Claims Supervisor: Shane Peña MD Platelet mean volume (Bld) [Entitic vol] 9.1 fL Normal 8.1-13.5 [facility] Comment on above: Performed By: #### C BC, CP, LIPR, TSH #### [facility] [employer] [address] [place] [address] Workers' Compensation Claims Supervisor: Shane Peña MD Platelets (Bld) [#/Vol] 410 10*3/uL Normal 138-453 [facility] Comment on above: Performed By: #### C BC, CP, LIPR, TSH #### [facility] [employer] [address] [place] [address] Workers' Compensation Claims Supervisor: Shane Peña MD RBC (Bld) [#/Vol] 4.73 10*6/uL Normal 4.21-5.77 [facility] Comment on above: Performed By: #### C BC, CP, LIPR, TSH #### [facility] [employer] [address] [place] [address] Workers[employer] Compensation Claims Supervisor: Shane Peña MD WBC (Bld) [#/Vol] 14.2 10*3/uL High 3.5-11.3 [facility] Comment on above: Performed By: #### C BC, CP, LIPR, TSH #### [facility] [employer] [address] [place] [address]352 Workers' Compensation Claims Supervisor: Shane Peña MD Erythrocyte distribution width (RBC) [Ratio] 12.9 % 11.8 - 14.4 % Localist Phone: Hematocrit (Bld) [Volume fraction] 43.3 % 40.7 - 50.3 % Localist Phone: Hemoglobin (Bld) [Mass/Vol] 14.0 g/dL 13 - 17 g/dL Localist Phone: Interpretation and review of laboratory results Abnormal Localist Phone: MCH (RBC) [Entitic mass] 29.6 pg 25.2 - 33.5 pg Localist Phone: MCHC (RBC) [Mass/Vol] 32.3 g/dL 28.4 - 34.8 g/dL Localist Phone: MCV (RBC) [Entitic vol] 91.5 fL 82.6 - 102.9 fL Localist Phone: Platelet mean volume (Bld) [Entitic vol] 9.1 fL 8.1 - 13.5 fL Localist Phone: Platelets (Bld) [#/Vol] 410 10*3/uL Localist Phone: RBC (Bld) [#/Vol] 4.73 10*6/uL 4.21 - 5.7 7 m/uL Localist Phone: WBC (Bld) [#/Vol] 0.0 10*3/uL 0.0 per 10 0 WBC Localist Phone: WBC (Bld) [#/Vol] 14.2 10*3/uL High Localist Phone: Comp Metabolic Profon 2020 (cont.) Normal [facility] Comment on above: Result Comment: Aver age GFR for 50-59 years old: 93 mL/min/1.73sq m Chronic Kidney Disease: <60 mL/min/1.73sq m Kidney failure: <15 mL/min/1.73sq m eGFR calculated using average adult body mass. Additional eGFR calculator available at: http://www.[employer].Patience/multiple_crcl_2012.htm Performed By: #### C BC, CP, LIPR, TSH #### [employer] [address] [place] [address] Workers' Compensation Claims Supervisor: Shane Peña MD Albumin [Mass/Vol] 4.1 g/dL Normal 3.5-5.2 [facility] Comment on above: Performed By: #### C BC, CP, LIPR, TSH #### [facility] [address] [place] [address] Workers' Compensation Claims Supervisor: Shane Peña MD Albumin/Globulin [Mass ratio] 1.8 {ratio} Normal 1.0-2.5 [facility] Comment on above: Performed By: #### C BC, CP, LIPR, TSH #### [facility] [employer] [address] [place] [address] Workers' Compensation Claims Supervisor: Shane Peña MD Alkaline Phos 80 U/L Normal 40-129 [facility] Comment on above: Performed By: #### C BC, CP, LIPR, TSH #### [facility] [employer] [address] [place] [address] Workers' Compensation Claims Supervisor: Shane Peña MD ALT [Catalytic activity/Vol] 18 U/L Normal 5-41 [facility] Comment on above: Performed By: #### C BC, CP, LIPR, TSH #### [facility] [address] [place] [address] Workers' Compensation Claims Supervisor: Shane Peña MD Anion gap [Moles/Vol] 9 mmol/L Normal 9-17 [facility] Comment on above: Performed By: #### C BC, CP, LIPR, TSH #### [facility] [employer] [address] [place] [address] Workers' Compensation Claims Supervisor: Shane Peña MD AST [Catalytic activity/Vol] 15 U/L Normal <40 [facility] Comment on above: Performed By: #### C BC, CP, LIPR, TSH #### [facility] [address] [place] [address] Workers' Compensation Claims Supervisor: Shane Peña MD Bilirubin Ql (U) 0.32 mg/dL Normal 0.3-1.2 [facility] Comment on above: Performed By: #### C BC, CP, LIPR, TSH #### [facility] [employer] [address] [place] [address] Workers' Compensation Claims Supervisor: Shane Peña MD Calcium [Mass/Vol] 9.4 mg/dL Normal 8.6-10.4 [facility] Comment on above: Performed By: #### C BC, CP, LIPR, TSH #### [facility] [address] [place] [address] Workers' Compensation Claims Supervisor: Shane Peña MD Chloride [Moles/Vol] 102 mmol/L Normal 98-107 [facility] Comment on above: Performed By: #### C BC, CP, LIPR, TSH #### [facility] [employer] [address] [place] [address] Workers' Compensation Claims Supervisor: Shane Peña MD CO2 [Moles/Vol] 26 mmol/L Normal 20-31 [facility] Comment on above: Performed By: #### C BC, CP, LIPR, TSH #### [facility] [employer] [address] [place] [address] Workers' Compensation Claims Supervisor: Shane Peña MD Creatinine [Mass/Vol] 0.86 mg/dL Normal 0.70-1.20 [facility] Comment on above: Performed By: #### C BC, CP, LIPR, TSH #### [facility] [address] [place] [address] Workers' Compensation Claims Supervisor: Shane Peña MD GFR, Amer >60 Normal >60 [facility] Comment on above: Performed By: #### C BC, CP, LIPR, TSH #### [facility] [address] [place] [address] Workers' Compensation Claims Supervisor: Shane Peña MD GFR,non Amer >60 Normal >60 [facility] Comment on above: Performed By: #### C BC, CP, LIPR, TSH #### [facility] [address] [place] [address] Workers' Compensation Claims Supervisor: Shane Peña MD Glucose [Mass/Vol] 95 mg/dL Normal 70-99 [facility] Comment on above: Performed By: #### C BC, CP, LIPR, TSH #### [facility] [employer] [address] [place] [address] Workers' Compensation Claims Supervisor: Shane Peña MD Potassium [Moles/Vol] 4.3 mmol/L Normal 3.7-5.3 [facility] Comment on above: Performed By: #### C BC, CP, LIPR, TSH #### [facility] [employer] [address] [place] [address] Workers' Compensation Claims Supervisor: Shane Peña MD Protein [Mass/Vol] 6.4 g/dL Normal 6.4-8.3 [facility] Comment on above: Performed By: #### C BC, CP, LIPR, TSH #### [facility] [address] [place] [address] Workers' Compensation Claims Supervisor: Shane Peña MD Sodium [Moles/Vol] 137 mmol/L Normal 135-144 [facility] Comment on above: Performed By: #### C BC, CP, LIPR, TSH #### [facility] [address] [place] [address] Workers' Compensation Claims Supervisor: Shane Peña MD Urea nitrogen [Mass/Vol] 17 mg/dL Normal 6-20 [facility] Comment on above: Performed By: #### C BC, CP, LIPR, TSH #### [employer] [address] [place] [address] Workers' Compensation Claims Supervisor: Shane Peña MD BUN/CRE Ratio NOT REPORTED Normal 9-20 [facility] Comment on above: Performed By: #### C BC, CP, LIPR, TSH #### [employer] [address] [place] [address] Workers' Compensation Claims Supervisor: Shane Peña MD Staging: NOT REPORTED Normal [facility] Comment on above: Performed By: #### C BC, CP, LIPR, TSH #### [employer] [address] [place] [address] Workers' Compensation Claims Supervisor: Shane Peña MD Comprehensive Metabolic Pane feng 05-03-2020 Albumin [Mass/Vol] 4.1 g/dL 3.5 - 5.2 g/dL Localist Phone: Albumin/Globulin [Mass ratio] 1.8 {ratio} [facility] Phone: ALP [Catalytic activity/Vol] 80 U/L 40 - 129 U/L [facility] Phone: ALT [Catalytic activity/Vol] 18 U/L 5 - 41 U/L [facility] Phone: Anion gap [Moles/Vol] 9 mmol/L 9 - 17 mmol/L Localist Phone: AST [Catalytic activity/Vol] 15 U/L <40 [facility] Phone: Bilirubin Ql (U) 0.32 mg/dL 0.3 - 1.2 mg/dL Localist Phone: Bun/Cre Ratio NOT REPORTED [facility] Work Phone: Calcium [Mass/Vol] 9.4 mg/dL 8.6 - 10. 4 mg/dL [facility] Phone: Chloride [Moles/Vol] 102 mmol/L 98 - 10 7 mmol/L Localist Phone: CO2 [Moles/Vol] 26 mmol/L 20 - 31 mmol/L [facility] Phone: Creatinine [Mass/Vol] 0.86 mg/dL 0.7 - 1.2 mg/dL Localist Phone: GFR >60 >60 mL/min [employer] Phone: GFR Non- >60 >60 mL/min Localist Phone: GFR/1.73 sq M predicted among non-blacks MDRD (S/P/Bld) [Vol rate/Area] Localist Phone: Comment on above: Average GFR for 50-5 9 years old: 93 mL/min/1.73sq m Chronic Kidney Disease: <60 mL/min/1.73sq m Kidney failure: <15 mL/min/1.73sq m eGFR calculated using average adult body mass. Additional eGFR calculator available at: http://www.[employer]/multiple_crcl_2012.htm GFR/1.73 sq M predicted among non-blacks MDRD (S/P/Bld) [Vol rate/Area] NOT REPORTED Localist Phone: Glucose [Mass/Vol] 95 mg/dL 70 - 99 mg/dL [employer] Phone: Potassium [Moles/Vol] 4.3 mmol/L 3.7 - 5.3 mmol/L Localist Phone: Protein [Mass/Vol] 6.4 g/dL 6.4 - 8.3 g/dL Local[employer] Phone: Sodium [Moles/Vol] 137 mmol/L 135 - 144 mmol/L Local[employer] Phone: Urea nitrogen [Mass/Vol] 17 mg/dL 6 - 20 mg/dL Localist Phone: Lipid Panelon 05-03-2020 Cholesterol [Mass/Vol] 172 mg/dL <200 Localist Phone: Comment on above: Cholesterol Guidelines: <200 Desirable 200-240 Borderline >240 Undesirable Cholesterol in HDL [Mass/Vol] 38 mg/dL Low >40 Localist Phone: Comment on above: HDL Guidelines: <40 Undesirable 40-59 Borderline >59 Desirable Cholesterol in LDL [Mass/Vol] 106 mg/dL 0 - 130 mg/dL Localist Phone: Comment on above: LDL Guidelines: <100 Desirable 100-129 Near to/above Desirable 130-159 Borderline >159 Undesirable Direct (measured) LDL and calculated LDL are not interchangeable tests. Cholesterol in VLDL [Mass/Vol] NOT REPORTED 1 - 30 mg/dL Local[employer] Phone: Cholesterol.total/Ch olesterol in HDL [Mass ratio] 4.5 {ratio} <5 Localist Phone: Interpretation and review of laboratory results Abnormal Localist Phone: Triglyceride [Mass/Vol] 138 mg/dL <150 Localist Phone: Comment on above: Triglyceride Guidelines: <150 Desirable 150-199 Borderline 200-499 High >499 Very high Based on AHA Guidelines for fasting triglyceride, December 2011. Lipid Profileon 05-03-2020 Cholesterol [Mass/Vol] 172 mg/dL Normal <200 [facility] Comment on above: Result Comment: Cholesterol Guidelines: <200 Desirable 200-240 Borderline >240 Undesirable Performed By: #### C BC, CP, LIPR, TSH #### [employer] [address] [place], [place] [phone] Workers' Compensation Claims Supervisor: Shane Peña MD Cholesterol in HDL [Mass/Vol] 38 mg/dL Low >40 [facility] Comment on above: Result Comment: HDL Guidelines: <40 Undesirable 40-59 Borderline >59 Desirable Performed By: #### C BC, CP, LIPR, TSH #### [employer] [address] [place], [place] [phone] Workers' Compensation Claims Supervisor: Shane Peña MD Cholesterol in LDL [Mass/Vol] 106 mg/dL Normal 0-130 [facility] Comment on above: Result Comment: LDL Guidelines: <100 Desirable 100-129 Near to/above Desirable 130-159 Borderline >159 Undesirable Direct (measured) LDL and calculated LDL are not interchangeable tests. Performed By: #### C BC, CP, LIPR, TSH #### [facility] [employer] [address] [place] [address] Workers' Compensation Claims Supervisor: Shane Peña MD Cholesterol.total/Ch olesterol in HDL [Mass ratio] 4.5 {ratio} Normal <5 [facility] Comment on above: Performed By: #### C BC, CP, LIPR, TSH #### [facility] [employer] [address] [place] [address] Workers' Compensation Claims Supervisor: Shane Peña MD Triglyceride [Mass/Vol] 138 mg/dL Normal <150 [facility] Comment on above: Result Comment: Triglyceride Guidelines: <150 Desirable 150-199 Borderline 200-499 High >499 Very high Based on AHA Guidelines for fasting triglyceride, December 2011. Performed By: #### C BC, CP, LIPR, TSH #### [facility] [employer] [address] [place] [address] Workers' Compensation Claims Supervisor: Shane Peña MD Cholesterol in VLDL [Mass/Vol] NOT REPORTED Normal 04-02 [facility] Comment on above: Performed By: #### C BC, CP, LIPR, TSH #### [facility] [employer] [address] [place] [address] Workers' Compensation Claims Supervisor: Shane Peña MD TSH without Reflexon 021 TSH Qn 1.35 m[IU]/L [facility] [employer] Work Phone: Thyroid Stim. Horm.on 2020 TSH Qn 1.35 m[IU]/L Normal 0.30-5.00 [facility] Comment on above: Performed By: #### C BC, CP, LIPR, TSH #### [facility] [employer] [address] [place] [address] Workers' Compensation Claims Supervisor: Shane Peña MD XR CHEST (2 VW)on [...] Stephan Soto MD 05/03/20 Final result Normal [facility] No evidence for acut e cardiopulmonary pathology. Localist Phone: EXAMINATION: TWO XRA Y VIEWS OF [...] structures and soft tissues are grossly intact. Localist Phone: Robert, pn Incoming Radiant Results From [email or web address] - 05/03/2020 11:24 AM EST EXAMINATION: TWO [...] IMPRESSION: No evidence for acute cardiopulmonary pathology. Localist Phone: Covid-19 Ambulatoryon 2019 SARS-CoV-2, ALLIE Not Detected Not Detected [facility] [place] Comment on above: (NOTE) This nucleic acid amplification test was developed and its performance characteristics determined by [employer]. Nucleic acid amplification tests include PCR and [...] detected) result in this assay. Performed At: [employer] [facility] [address] [facility], [place] [id number] Lilian Severino [facility] Ph:[phone] [id number] 11-09-2019 SARS-CoV-2 Not Detected Normal Not Detected [facility] Comment on above: Result Comment: (NOT E) This nucleic acid amplification test was developed and its performance characteristics determined by [employer]. Nucleic acid amplification tests include PCR and [...] detected) result in this assay. Performed At: [employer] [facility] [address] [place], [place] [id number] Lilian Severino [facility] Ph:[phone] Performed By: #### A COV #### [facility] [address] [place] [address] Workers' Compensation Claims Supervisor: Deborah Ramsey MD EKG 12 Leadon 11-04-2019 Atrial Rate 82 BPM [place], [place] P [place] 52 degrees [place], [place] P-R Interval 146 ms [place], [place] Q-T Interval 388 ms [facility], [place] QRS Duration 102 ms [place], [place] QTc Calculation (Bazett) 453 ms [place], [place] R [place] -21 degrees [facility], [place] T [place] 58 degrees [place], [place] Ventricular Rate 82 BPM [place], [place] Robert, [employer] Incoming E kg Results From [facility] [place] - 11/04/2019 10:29 AM EDT Normal sinus rhythm Normal ECG No previous ECGs available [place], [place] Normal sinus rhythm Normal ECG No previous ECGs available [place] Basic Metabolic Panelon 08-3 Anion gap [Moles/Vol] 10 mmol/L 9 - 17 mmol/L [place] Bun/Cre Ratio NOT REPORTED [place] Calcium [Mass/Vol] 9.2 mg/dL 8.6 - 10. 4 mg/dL [place] Chloride [Moles/Vol] 104 mmol/L 98 - 10 7 mmol/L [place] CO2 [Moles/Vol] 27 mmol/L 20 - 31 mmol/L [place] Creatinine [Mass/Vol] 0.83 mg/dL 0.7 - 1.2 mg/dL [place] GFR >60 >60 mL/min [place] GFR Non- >60 >60 mL/min [place] GFR/1.73 sq M predicted among non-blacks MDRD (S/P/Bld) [Vol rate/Area] [place], [place] Comment on above: Average GFR for 50-5 9 years old: 93 mL/min/1.73sq m Chronic Kidney Disease: <60 mL/min/1.73sq m Kidney failure: <15 mL/min/1.73sq m eGFR calculated using average adult body mass. Additional eGFR calculator available at: http://www.TheInfoPro/multiple_crcl_2012.htm GFR/1.73 sq M predicted among non-blacks MDRD (S/P/Bld) [Vol rate/Area] NOT REPORTED [place], [place] Glucose [Mass/Vol] 103 mg/dL High 70 - 99 mg/dL [place] Interpretation and review of laboratory results Abnormal [place] Potassium [Moles/Vol] 4.5 mmol/L 3.7 - 5.3 mmol/L [place] Sodium [Moles/Vol] 141 mmol/L 135 - 144 mmol/L [place] Urea nitrogen [Mass/Vol] 18 mg/dL 6 - 20 mg/dL [place] Basic Metabolic Profon 11-01 (cont.) Normal [facility] Comment on above: Result Comment: Aver age GFR for 50-59 years old: 93 mL/min/1.73sq m Chronic Kidney Disease: <60 mL/min/1.73sq m Kidney failure: <15 mL/min/1.73sq m eGFR calculated using average adult body mass. Additional eGFR calculator available at: http://www.TheInfoPro/multiple_crcl_2012.htm Performed By: #### C KLAUS, BMP #### [facility] [address] [facility]. [place], [place] [id number] Workers' Compensation Claims Supervisor: Cheko Boykin, DO Anion gap [Moles/Vol] 10 mmol/L Normal 9-17 [facility] Comment on above: Performed By: #### C DP, BMP #### [facility] [address] [facility]. [place], [place] [id number] Workers' Compensation Claims Supervisor: Cheko Boykin, Calcium [Mass/Vol] 9.2 mg/dL Normal 8.6-10.4 [facility] Comment on above: Performed By: #### C KLAUS, BMP #### [facility] [address] [place] [address] Workers' Compensation Claims Supervisor: Cheko Boykin DO Chloride [Moles/Vol] 104 mmol/L Normal 98-107 [facility] Comment on above: Performed By: #### C DP, BMP #### [facility] [address] [place] [address] Workers' Compensation Claims Supervisor: Cheko Boykin DO CO2 [Moles/Vol] 27 mmol/L Normal 20-31 [facility] Comment on above: Performed By: #### C DP, BMP #### [facility] [address] [place] [address] Workers' Compensation Claims Supervisor: Cheko Boykin DO Creatinine [Mass/Vol] 0.83 mg/dL Normal 0.70-1.20 [facility] Comment on above: Performed By: #### C DP, BMP #### [facility] [address] [place] [address] Workers' Compensation Claims Supervisor: Cheko Boykin DO GFR, Amer >60 Normal >60 [facility] Comment on above: Performed By: #### C DP, BMP #### [facility] [address] [place] [address] Workers' Compensation Claims Supervisor: Cheko Boykin DO GFR,non Amer >60 Normal >60 [facility] Comment on above: Performed By: #### C DP, BMP #### [facility] [place] [address] Workers' Compensation Claims Supervisor: Cheko Boykin DO Glucose [Mass/Vol] 103 mg/dL High 70-99 [facility] Comment on above: Performed By: #### C DP, BMP #### [facility] [address] [place] [address] Workers' Compensation Claims Supervisor: Cheko Boykin DO Potassium [Moles/Vol] 4.5 mmol/L Normal 3.7-5.3 [facility] Comment on above: Performed By: #### C DP, BMP #### [facility] [address] [place] [address] Workers' Compensation Claims Supervisor: Cheko Boykin DO Sodium [Moles/Vol] 141 mmol/L Normal 135-144 [facility] Comment on above: Performed By: #### C KLAUS, BMP #### [facility] [address] [place] [address] Workers' Compensation Claims Supervisor: Cheko Boykin DO Urea nitrogen [Mass/Vol] 18 mg/dL Normal 6-20 [facility] Comment on above: Performed By: #### C KLAUS, BMP #### [facility] [address] [place] [address] Workers' Compensation Claims Supervisor: Cheko Boykin DO BUN/CRE Ratio NOT REPORTED Normal 9-20 [facility] Comment on above: Performed By: #### C KLAUS, BMP #### [facility] [address] [place] [address] Workers' Compensation Claims Supervisor: Cheko Boykin DO Staging: NOT REPORTED Normal [facility] Comment on above: Performed By: #### C KLAUS, BMP #### [facility] [address] [place] [address] Workers' Compensation Claims Supervisor: Cheko Boykin DO CBC Auto Differentialon 08-3 Basophils (Bld) [#/Vol] 0.10 10*3/uL [facility], [place] Basophils/100 WBC (Bld) 1 % 0 - 2 % [facility], [place] Differential Type NOT REPORTED [facility], [place] Eosinophils (Bld) [#/Vol] 0.60 10*3/uL High [facility], [place] Eosinophils/100 WBC (Bld) 4 % 0 - 4 % [place] Erythrocyte distribution width (RBC) [Ratio] 13.9 % 11.5 - 14.9 % [place] Hematocrit (Bld) [Volume fraction] 42.4 % 41 - 53 % [place] Hemoglobin (Bld) [Mass/Vol] 14.5 g/dL 13.5 - 17.5 g/dL [place] Interpretation and review of laboratory results Abnormal [place] Lymphocytes (Bld) [#/Vol] 4.00 10*3/uL [place] Lymphocytes/100 WBC (Bld) 29 % 24 - 44 % [place] MCH (RBC) [Entitic mass] 30.5 pg 26 - 34 pg [place] MCHC (RBC) [Mass/Vol] 34.2 g/dL 31 - 37 g/dL [place] MCV (RBC) [Entitic vol] 89.1 fL 80 - 100 fL [place] Monocytes (Bld) [#/Vol] 1.00 10*3/uL [place] Monocytes/100 WBC (Bld) 7 % 1 - 7 % [place] Platelet mean volume (Bld) [Entitic vol] 7.1 fL 6 - 12 fL [place], [place] Platelets (Bld) [#/Vol] 378 10*3/uL [place] Platelets (Bld) [#/Vol] NOT REPORTED [place] RBC (Bld) [#/Vol] 4.76 10*6/uL 4.5 - 5.9 m/uL [place] RBC morphology finding Nom (Bld) NOT REPORTED [place] Segmented neutrophils/100 WBC (Bld) 59 % 36 - 66 % [place] Segs Absolute 8.30 [place] WBC (Bld) [#/Vol] 13.9 10*3/uL [place] WBC (Bld) [#/Vol] NOT REPORTED per 100 WBC [place] WBC Morphology NOT REPORTED [place], [place] CBC with Diffon 11-02-2019 Abs. Basophil 0.10 k/uL Normal 0.0-0.2 [facility] Comment on above: Performed By: #### C DP, BMP #### [facility] [place] [address] Workers' Compensation Claims Supervisor: Cheko Boykin DO Abs.Neutrophil (Seg) 8.30 k/uL Normal 1.3-9.1 [facility] Comment on above: Performed By: #### C DP, BMP #### [facility] [place] [address] Workers' Compensation Claims Supervisor: Cheko Boykin DO Basophils/100 WBC (Bld) 1 % Normal 0-2 [facility] Comment on above: Performed By: #### C DP, BMP #### [facility] [address] [place] [address] Workers' Compensation Claims Supervisor: Cheko Boykin DO Eosinophils (Bld) [#/Vol] 0.60 10*3/uL High 0.0-0.4 [facility] Comment on above: Performed By: #### C KLAUS, BMP #### [facility] [address] [place] [address] Workers' Compensation Claims Supervisor: Cheko Boykin DO Eosinophils/100 WBC (Bld) 4 % Normal 0-4 [facility] Comment on above: Performed By: #### C DP, BMP #### [facility] [address] [place] [address] Workers' Compensation Claims Supervisor: Cheko Boykin DO Erythrocyte distribution width (RBC) [Ratio] 13.9 % Normal 11.5-14.9 [facility] Comment on above: Performed By: #### C DP, BMP #### [facility] [address] [place] [address] Workers' Compensation Claims Supervisor: Cheko Boykin DO Hematocrit (Bld) [Volume fraction] 42.4 % Normal 41-53 [facility] Comment on above: Performed By: #### C DP, BMP #### [facility] [place] [address] Workers' Compensation Claims Supervisor: Cheko Boykin DO Hemoglobin (Bld) [Mass/Vol] 14.5 g/dL Normal 13.5-17.5 [facility] Comment on above: Performed By: #### C DP, BMP #### [facility] [place] [address] Workers' Compensation Claims Supervisor: Cheko Boykin DO Lymphocytes (Bld) [#/Vol] 4.00 10*3/uL Normal 1.0-4.8 [facility] Comment on above: Performed By: #### C DP, BMP #### [facility] [address] [place] [address] Workers' Compensation Claims Supervisor: Cheko Boykin DO Lymphocytes/100 WBC (Bld) 29 % Normal 24-44 [facility] Comment on above: Performed By: #### C KLAUS, BMP #### [facility] [address] [place] [address] Workers' Compensation Claims Supervisor: Cheko Boykin DO MCH (RBC) [Entitic mass] 30.5 pg Normal 26-34 [facility] Comment on above: Performed By: #### C DP, BMP #### [facility] [address] [place] [address] Workers' Compensation Claims Supervisor: Cheko Boykin DO MCHC (RBC) [Mass/Vol] 34.2 g/dL Normal 31-37 [facility] Comment on above: Performed By: #### C DP, BMP #### [facility] [address] [place] [address] Workers' Compensation Claims Supervisor: Cheko Boykin DO MCV (RBC) [Entitic vol] 89.1 fL Normal 80-100 [facility] Comment on above: Performed By: #### C DP, BMP #### [facility] [address] [facility] [place] [address] Workers' Compensation Claims Supervisor: Cheko Boykin DO Monocytes (Bld) [#/Vol] 1.00 10*3/uL Normal 0.1-1.3 [facility] Comment on above: Performed By: #### C DP, BMP #### [facility] [address] [place] [address] Workers' Compensation Claims Supervisor: Cheko Boykin DO Monocytes/100 WBC (Bld) 7 % Normal 1-7 [facility] Comment on above: Performed By: #### C DP, BMP #### [facility] [place] [address] Workers' Compensation Claims Supervisor: Cheko Boykin DO Neutrophil (Seg) 59 % Normal 36-66 [facility] Comment on above: Performed By: #### C KLAUS, BMP #### [facility] [place] [address] Workers' Compensation Claims Supervisor: Cheko Boykin DO Platelet mean volume (Bld) [Entitic vol] 7.1 fL Normal 6.0-12.0 [facility] Comment on above: Performed By: #### C DP, BMP #### [facility] [place] [address] Workers' Compensation Claims Supervisor: Cheko Boykin DO Platelets (Bld) [#/Vol] 378 10*3/uL Normal 150-450 [facility] Comment on above: Performed By: #### C DP, BMP #### [facility] [place] [address] Workers' Compensation Claims Supervisor: Cheko Boykin DO RBC (Bld) [#/Vol] 4.76 10*6/uL Normal 4.5-5.9 [facility] Comment on above: Performed By: #### C DP, BMP #### [facility] [place] [address] Workers' Compensation Claims Supervisor: Cheko Boykin DO WBC (Bld) [#/Vol] 13.9 10*3/uL High 3.5-11.0 [facility] Comment on above: Performed By: #### C DP, BMP #### [facility] [address] [place] [address] Workers' Compensation Claims Supervisor: Cheko Boykin DO Abs.Imm.Granulocyte NOT REPORTED Normal 0.00-0.30 [facility] Comment on above: Performed By: #### C DP, BMP #### [facility] [address] [place] [address] Workers' Compensation Claims Supervisor: Cheko Boykin DO Auto Diff Performed NOT REPORTED Normal [facility] Comment on above: Performed By: #### C DP, BMP #### [facility] [address] [place] [address] Workers' Compensation Claims Supervisor: Cheko Boykin DO Immature granulocytes (Bld) [#/Vol] NOT REPORTED Normal 0 [facility] Comment on above: Performed By: #### C DP, BMP #### [facility] [address] [place] [address] Workers' Compensation Claims Supervisor: Cheko Boykin DO NRBC Automated NOT REPORTED Normal [facility] Comment on above: Performed By: #### C DP, BMP #### [facility] [address] [place] [address] Workers' Compensation Claims Supervisor: Cheko Boykin DO Platelets (Bld) [#/Vol] NOT REPORTED Normal [facility] Comment on above: Performed By: #### C DP, BMP #### [facility] [address] [place] [address] [place] [address] Workers' Compensation Claims Supervisor: Cheko Boykin DO RBC morphology finding Nom (Bld) NOT REPORTED Normal [facility] Comment on above: Performed By: #### C DP, BMP #### [facility] [address] [facility] [place] [address] Workers' Compensation Claims Supervisor: Cheko Boykin DO WBC Morphology NOT REPORTED Normal [facility] Comment on above: Performed By: #### C DP, BMP #### [facility] [address] [facility] [place] [address] Workers' Compensation Claims Supervisor: Cheko Boykin DO Otheron 11-02-2019 Immature granulocytes (Bld) [#/Vol] NOT REPORTED 0 % [place] KNEE LEFT WO CONTRASTon 10-28-2019 [...] quadriceps tendinosis. 3. Moderate joint effusion. 4. Zaas-gu-sfqfqsqx patellofemoral chondromalacia. Mild medial compartment chondromalacia. Superimposed partial and full-thickness fissuring of the weight-bearing medial femoral condyle. 5. Mild edema in the soft tissues about the knee. Interpreted by: Simeon Long MD Signed by: Simeon Long MD 10/28/19 Final result Normal [facility] 1. Complex multidirectional tearing and volume loss in the posterior horn of the medial meniscus. Degeneration and outward extrusion of the medial meniscus body. 2. Mild multifocal patellar tendinosis. Mild distal quadriceps tendinosis. 3. Moderate joint effusion. 4. Bniq-eu-wfjckjpc patellofemoral chondromalacia. Mild medial compartment chondromalacia. Superimposed partial and full-thickness fissuring of the weight-bearing medial femoral condyle. 5. Mild edema in the soft tissues about the knee. [facility], [place] EXAMINATION: MRI OF THE LEFT [...] in the soft tissues about the knee. [facility] [place] Robert, pn Incoming Radiant Results From [employer] - 10/28/2019 3:10 PM EDT EXAMINATION: MRI [...] quadriceps tendinosis. 3. Moderate joint effusion. 4. Przf-fp-jytswvvg patellofemoral chondromalacia. Mild medial compartment chondromalacia. Superimposed partial and full-thickness fissuring of the weight-bearing medial femoral condyle. 5. Mild edema in the soft tissues about the knee. [place] XR KNEE LEFT (3 VIEWS)on XR [...] Roz Mora MD 09/29/19 Final result Normal [facility] Small joint effusion. [place], [place] EXAMINATION: THREE X RAY VIEWS OF [...] within the medial compartment. Small joint effusion. [place], [place] Robert, Mhpn Incoming Radiant Results From [email or web address] - 09/29/2019 2:11 PM EDT EXAMINATION: THREE [...] Small joint effusion. IMPRESSION: Small joint effusion. [place] Uric Acidon 09-28-2019 Urate [Mass/Vol] 6.0 mg/dL 3.4 - 7 mg/dL [place] Uric Acidon 12-09-2018 Urate [Mass/Vol] 5.8 mg/dL 3.4 - 7 mg/dL [place] CBCon 11-05-2018 Erythrocyte distribution width (RBC) [Ratio] 13.1 % 11.8 - 14.4 % [place] Hematocrit (Bld) [Volume fraction] 46.1 % 40.7 - 50.3 % [place] Hemoglobin (Bld) [Mass/Vol] 14.9 g/dL 13 - 17 g/dL [place] Interpretation and review of laboratory results Abnormal [place] MCH (RBC) [Entitic mass] 31.0 pg 25.2 - 33.5 pg [place] MCHC (RBC) [Mass/Vol] 32.3 g/dL 28.4 - 34.8 g/dL [place] MCV (RBC) [Entitic vol] 95.8 fL 82.6 - 102.9 fL [place] Platelet mean volume (Bld) [Entitic vol] 9.2 fL 8.1 - 13.5 fL [place], [place] Platelets (Bld) [#/Vol] 374 10*3/uL [place] RBC (Bld) [#/Vol] 4.81 10*6/uL 4.21 - 5.7 7 m/uL [place] WBC (Bld) [#/Vol] 11.8 10*3/uL High [place] WBC (Bld) [#/Vol] 0.0 10*3/uL 0.0 per 10 0 WBC [place] Comprehensive Metabolic Pane feng 11-05-2018 Albumin [Mass/Vol] 4.2 g/dL 3.5 - 5.2 g/dL [place] Albumin/Globulin [Mass ratio] 1.7 {ratio} [place] ALP [Catalytic activity/Vol] 83 U/L 40 - 129 U/L [place] ALT [Catalytic activity/Vol] 19 U/L 5 - 41 U/L [place] Anion gap [Moles/Vol] 16 mmol/L 9 - 17 mmol/L [place] AST [Catalytic activity/Vol] 15 U/L <40 [place] Bilirubin Ql (U) 0.29 mg/dL Low 0.3 - 1.2 mg/dL [place] Bun/Cre Ratio NOT REPORTED [place] Calcium [Mass/Vol] 9.5 mg/dL 8.6 - 10. 4 mg/dL [place] Chloride [Moles/Vol] 104 mmol/L 98 - 10 7 mmol/L [place] CO2 [Moles/Vol] 26 mmol/L 20 - 31 mmol/L [place] Creatinine [Mass/Vol] 0.81 mg/dL 0.7 - 1.2 mg/dL [place] GFR >60 >60 mL/min [place] GFR Non- >60 >60 mL/min [place] GFR/1.73 sq M predicted among non-blacks MDRD (S/P/Bld) [Vol rate/Area] NOT REPORTED [place] GFR/1.73 sq M predicted among non-blacks MDRD (S/P/Bld) [Vol rate/Area] [place] Comment on above: Average GFR for 50-5 9 years old: 93 mL/min/1.73sq m Chronic Kidney Disease: <60 mL/min/1.73sq m Kidney failure: <15 mL/min/1.73sq m eGFR calculated using average adult body mass. Additional eGFR calculator available at: http://www.TheInfoPro/multiple_crcl_2012.htm Glucose [Mass/Vol] 99 mg/dL 70 - 99 mg/dL [place] Potassium [Moles/Vol] 4.4 mmol/L 3.7 - 5.3 mmol/L [place] Protein [Mass/Vol] 6.7 g/dL 6.4 - 8.3 g/dL [place] Sodium [Moles/Vol] 146 mmol/L High 135 - 144 mmol/L [place] Urea nitrogen [Mass/Vol] 17 mg/dL 6 - 20 mg/dL [place] Lipid Panelon 11-05-2018 Cholesterol [Mass/Vol] 199 mg/dL <200 [place] Comment on above: Cholesterol Guidelines: <200 Desirable 200-240 Borderline >240 Undesirable Cholesterol in HDL [Mass/Vol] 42 mg/dL >40 [place] Comment on above: HDL Guidelines: <40 Undesirable 40-59 Borderline >59 Desirable Cholesterol in LDL [Mass/Vol] 126 mg/dL 0 - 130 mg/dL [place] Comment on above: LDL Guidelines: <100 Desirable 100-129 Near to/above Desirable 130-159 Borderline >159 Undesirable Direct (measured) LDL and calculated LDL are not interchangeable tests. Cholesterol in VLDL [Mass/Vol] NOT REPORTED High 1 - 30 mg/dL [place] Cholesterol.total/Ch olesterol in HDL [Mass ratio] 4.7 {ratio} <5 [place] Triglyceride [Mass/Vol] 157 mg/dL High <150 [place] Comment on above: Triglyceride Guidelines: <150 Desirable 150-199 Borderline 200-499 High >499 Very high Based on AHA Guidelines for fasting triglyceride, December 2011. Otheron 11-05-2018 Interpretation and review of laboratory results Abnormal [place] Vital Signs Date Time Vital Sign Value Performing Clinician Facility 11-18-2024 14:11 Body height 188 cm Deborah Jeronimo MD Work Phone: [facility] 11-18-2024 [id number] Body mass index (BMI) [Ratio] 36.85 kg/m2 Deborah Jeronimo MD Work Phone: [facility] 11-18-2024 14:11-0400 Body weight 130.18 kg Deborah Jeronimo MD Work Phone: [facility] 11-18-2024 14:11-0400 Diastolic blood pressure 59 mm[Hg] Deborah Jeronimo MD Work Phone: [facility] 11-18-2024 14:11-0400 Heart rate 80 /min Deborah Jeronimo MD Work Phone: [facility] 11-18-2024 14:11-0400 Systolic blood pressure 94 mm[Hg] Deborah Jeronimo MD Work Phone: [facility] 10-20-2024 11:14-0400 Body height 187.96 cm Colten Furlong DO Work Phone: [facility] 10-20-2024 11:14-0400 Body mass index (BMI) [Ratio] 35.9 kg/m2 Colten Furlong DO Work Phone: [facility] 10-20-2024 11:14-0400 Body weight 127 kg Colten Furlong DO Work Phone: [facility] 10-20-2024 11:14-0400 Diastolic blood pressure 68 mm[Hg] Colten Furlong DO Work Phone: [facility] 10-20-2024 11:14-0400 Systolic blood pressure 118 mm[Hg] Colten Furlong DO Work Phone: [facility] 10-06-2024 10:04-0400 Body height 187.96 cm Colten Furlong DO Work Phone: [facility] 10-06-2024 10:04-0400 Body mass index (BMI) [Ratio] 36 kg/m2 Colten Furlong DO Work Phone: [facility] 10-06-2024 10:04-0400 Body weight 127.3 kg Colten Parra DO Work Phone: [facility] 08-21-2024 09:49-0400 Body height 188 cm Rachel Stacy MD Work Phone: [facility] 08-21-2024 09:49-0400 Body mass index (BMI) [Ratio] 35.95 kg/m2 Rachel Stacy MD Work Phone: [facility] 08-21-2024 09:49-0400 Body weight 127.01 kg Rachel Stacy MD Work Phone: [facility] 08-21-2024 09:49-0400 Diastolic blood pressure 64 mm[Hg] Rachel Stacy MD Work Phone: [facility] 08-21-2024 09:49-0400 Heart rate 68 /min Rachel Stacy MD Work Phone: [facility] 08-21-2024 09:49-0400 Systolic blood pressure 120 mm[Hg] Rachel Stacy MD Work Phone: [facility] 02-21-2024 13:15-0500 Body height 188 cm Rachel Stacy MD Work Phone: [facility] 02-21-2024 13:15-0500 Body mass index (BMI) [Ratio] 37.11 kg/m2 Rachel Stacy MD Work Phone: [facility] 02-21-2024 13:15-0500 Body weight 131.09 kg Rachle Stacy MD Work Phone: [facility] 02-21-2024 13:15-0500 Diastolic blood pressure 62 mm[Hg] Rachel Stacy MD Work Phone: [facility] 02-21-2024 13:15-0500 Heart rate 78 /min Rachel Stacy MD Work Phone: [facility] 02-21-2024 13:15-0500 Systolic blood pressure 130 mm[Hg] Rachel Stacy MD Work Phone: [facility] 02-05-2024 14:07-0500 Body height 188 cm Deborah Jeronimo MD Work Phone: [facility] 02-05-2024 14:07-0500 Body mass index (BMI) [Ratio] 36.85 kg/m2 Deborah Jeronimo MD Work Phone: [facility] 02-05-2024 14:07-0500 Body weight 130.18 kg Deborah Jeronimo MD Work Phone: [facility] 02-05-2024 14:07-0500 Diastolic blood pressure 68 mm[Hg] Deborah Jeronimo MD Work Phone: [facility] 02-05-2024 14:07-0500 Heart rate 70 /min Deborah Jeronimo MD Work Phone: [facility] 02-05-2024 14:07-0500 Systolic blood pressure 126 mm[Hg] Deborah Jeronimo MD Work Phone: [facility] 01-06-2024 15:57-0500 Diastolic blood pressure 92 mm[Hg] Rachel Stacy MD Work Phone: [facility] 01-06-2024 15:57-0500 Systolic blood pressure 166 mm[Hg] Rachel Stacy MD Work Phone: [facility] 01-06-2024 15:15-0500 Body height 188 cm Rachel Stacy MD Work Phone: [facility] 01-06-2024 15:15-0500 Body mass index (BMI) [Ratio] 37.36 kg/m2 Rachel Stacy MD Work Phone: [facility] 01-06-2024 15:15-0500 Body weight 132 kg Rachel Stacy MD Work Phone: [facility] 01-06-2024 15:15-0500 Heart rate 92 /min Rachel Stacy MD Work Phone: [facility] 12-13-2023 11:29-0400 Body height 188 cm Guicho Mulligan MD Work Phone: [facility] 12-13-2023 11:29-0400 Body mass index (BMI) [Ratio] 36.72 kg/m2 Guicho Mulligan MD Work Phone: [facility] 12-13-2023 11:29-0400 Body weight 129.73 kg Guicho Mulligan MD Work Phone: [facility] 12-13-2023 11:29-0400 Diastolic blood pressure 80 mm[Hg] Guicho Mulligan MD Work Phone: [facility] 12-13-2023 11:29-0400 Heart rate 76 /min Guicho Mulligan MD Work Phone: [facility] 12-13-2023 11:29-0400 Systolic blood pressure 136 mm[Hg] Guicho Mulligan MD Work Phone: [facility] 12-06-2023 09:38-0400 Body height 188 cm Jenae Louiss Work Phone: [facility] 12-06-2023 09:38-0400 Body mass index (BMI) [Ratio] 36.85 kg/m2 Jenae Debrapardeeps Work Phone: [employer] [facility] 12-06-2023 09:38-0400 Body temperature 98.71 [degF] Jenae Richardsonhas DO Work Phone: [employer] 12-06-2023 09:38-0400 Body weight 130.18 kg Jenae Louiss DO Work Phone: [email or web address] 12-06-2023 09:38-0400 Diastolic blood pressure 70 mm[Hg] Jenae Louiss DO Work Phone: [employer] [facility] 12-06-2023 09:38-0400 Heart rate 76 /min Jenae Samuels DO Work Phone: [facility] 12-06-2023 09:38-0400 Respiratory rate 18 /min Jenae Samuels DO Work Phone: [facility] 12-06-2023 09:38-0400 SaO2% (BldA) [Mass fraction] 98 % Jenae Samuels DO Work Phone: [facility] 12-06-2023 09:38-0400 Systolic blood pressure 130 mm[Hg] Jenae Samuels DO Work Phone: [facility] 09-09-2023 12:19-0400 Body height 188 cm Deborah Jeronimo MD Work Phone: [facility] 09-09-2023 12:19-0400 Body mass index (BMI) [Ratio] 35.95 kg/m2 Deborah Jeronimo MD Work Phone: [facility] 09-09-2023 12:19-0400 Body weight 127.01 kg Deborah Jeronimo MD Work Phone: [facility] 09-09-2023 12:19-0400 Diastolic blood pressure 79 mm[Hg] Deborah Jeronimo MD Work Phone: [facility] 09-09-2023 12:19-0400 Heart rate 78 /min Deborah Jeronimo MD Work Phone: [facility] 09-09-2023 12:19-0400 Systolic blood pressure 146 mm[Hg] Deborah Jeronimo MD Work Phone: [facility] 08-28-2023 14:28-0400 Diastolic blood pressure 68 mm[Hg] Leonid Figueredo MD Work Phone: [facility] 08-28-2023 14:28-0400 Systolic blood pressure 138 mm[Hg] Leonid Figueredo MD Work Phone: [facility] 08-28-2023 14:06-0400 Body height 188 cm Leonid Figueredo MD Work Phone: [facility] 08-28-2023 14:06-0400 Body mass index (BMI) [Ratio] 35.44 kg/m2 Leonid Figueredo MD Work Phone: [facility] 08-28-2023 14:06-0400 Body weight 125.19 kg Leonid Figueredo MD Work Phone: [facility] 08-28-2023 14:06-0400 Heart rate 80 /min Leonid Figueredo MD Work Phone: [facility] 08-20-2023 10:08-0400 Body height 188 cm [facility] 1 [facility] 08-20-2023 10:08-0400 Body mass index (BMI) [Ratio] 35.95 kg/m2 [facility] 1 [facility] 08-20-2023 10:08-0400 Body weight 127.01 kg P[facility] 1 [facility] 08-05-2023 14:46-0400 Body height 188 cm Magda Castle [employer]-SUPERVISOR DRAWING Work Phone: [facility] 08-05-2023 14:46-0400 Body mass index (BMI) [Ratio] 36.08 kg/m2 Magda Castle [employer]-SUPERVISOR [employer]RAWING Work Phone: [facility] 08-05-2023 14:46-0400 Body temperature 96.91 [degF] Magda Castle [employer]TER[employer]GER-SUPERVISOR [employer]RAWING Work Phone: [facility] 08-05-2023 14:46-0400 Body weight 127.46 kg Magda Castle [employer]TER[employer]GER-SUPERVISOR DRAWING Work Phone: [facility] 08-05-2023 14:46-0400 Diastolic blood pressure 70 mm[Hg] Magda Castle [employer] BATTERY CHARGER-SUPERVISOR DRAWING Work Phone: [facility] 08-05-2023 14:46-0400 Heart rate 69 /min Magda Castle [employer] BATTER[employer] CHARGER-SUPERVISOR DRAWING Work Phone: [facility] 08-05-2023 14:46-0400 Respiratory rate 16 /min Magda Castle [employer]TER[employer]GER-SUPERVISOR DRAWING Work Phone: [facility] 08-05-2023 14:46-0400 SaO2% (BldA) [Mass fraction] 95 % Magda Castle [employer] BATTERY CHARGER-SUPERVISOR DRAWING Work Phone: [facility] 08-05-2023 14:46-0400 Systolic blood pressure 128 mm[Hg] Magda Castle [employer] BATTERY CHARGER-SUPERVISOR DRAWING Work Phone: [facility] 07-04-2023 13:08-0400 Body height 180.3 cm Deborah Jeronimo MD Work Phone: [facility] 07-04-2023 13:08-0400 Body mass index (BMI) [Ratio] 38.86 kg/m2 Deborah Jeronimo MD Work Phone: [facility] 07-04-2023 13:08-0400 Body weight 126.37 kg Deborah Jeronimo MD Work Phone: [facility] 07-04-2023 13:08-0400 Diastolic blood pressure 80 mm[Hg] Deborah Jeronimo MD Work Phone: [facility] 07-04-2023 13:08-0400 Heart rate 73 /min Deborah Jeronimo MD Work Phone: [facility] 07-04-2023 13:08-0400 Systolic blood pressure 158 mm[Hg] Deborah Jeronimo MD Work Phone: [facility] 05-01-2023 10:28-0500 Body height 180.3 cm Hunter Robins CONVEY[employer] LINE BATTERY CHARGER-CORRESPONDENCE DICTATOR Work Phone: [facility] 05-01-2023 10:28-0500 Body mass index (BMI) [Ratio] 38.49 kg/m2 Hunter Robins CONVEY[employer] BATTERY CHARGER-CORRESPONDENCE DICTATOR Work Phone: [facility] 05-01-2023 10:28-0500 Body temperature 97.9 [degF] Hunter Robins CONVEY[employer] BATTERY CHARGER-CORRESPONDENCE DICTATOR Work Phone: [facility] [employer] 05-01-2023 10:28-0500 Body weight 125.19 kg Hunter Robins APRN-CORRESPONDENCE DICTATOR Work Phone: [facility] [employer] 05-01-2023 10:28-0500 Diastolic blood pressure 72 mm[Hg] Hunter Robins CONVE[employer] BATTERY CHARGER-CORRESPONDENCE DICTATOR Work Phone: [facility] [employer] 05-01-2023 10:28-0500 Heart rate 68 /min Hunter Robins APRN-CORRESPONDENCE DICTATOR Work Phone: [facility] [employer] 05-01-2023 10:28-0500 SaO2% (BldA) [Mass fraction] 95 % Hunter Robins APRN-CORRESPONDENCE DICTATOR Work Phone: [facility] [employer] 05-01-2023 10:28-0500 Systolic blood pressure 138 mm[Hg] Hunter Robins APRN-CORRESPONDENCE DICTATOR Work Phone: [facility] 11-26-2022 15:24-0400 Body height 187.96 cm Colten Barnard Furlong Work Phone: [facility] [employer] 250 DO Work Phone: 11-26-2022 15:24-0400 Body mass index (BMI) [Ratio] 35.31 kg/m2 Colten G Furlong Work Phone: [facility] [employer] 250 DO Work Phone: 11-26-2022 15:24-0400 Body surface area Derived from formula 2.49 m2 Colten G Furlong Work Phone: [facility] [employer] 250 DO Work Phone: 11-26-2022 15:24-0400 Body weight 124.74 kg Colten G Furlong Work Phone: [facility] [employer] 250 DO Work Phone: 11-26-2022 15:24-0400 Diastolic blood pressure 72 mm[Hg] Colten G Furlong Work Phone: [facility] [employer] 250 DO Work Phone: 11-26-2022 15:24-0400 Heart rate 70 /min Colten G Furlong Work Phone: [facility] [employer] 250 DO Work Phone: 11-26-2022 15:24-0400 Systolic blood pressure 138 mm[Hg] Colten G Furlong Work Phone: [facility] [employer] 250 DO Work Phone: 10-19-2021 14:25-0400 Body height 187.96 cm Colten G Furlong Work Phone: [facility] [employer] 250 DO Work Phone: 10-19-2021 14:25-0400 Body mass index (BMI) [Ratio] 33.64 kg/m2 Colten G Furlong Work Phone: [facility] [employer] 250 DO Work Phone: 10-19-2021 14:25-0400 Body surface area Derived from formula 2.44 m2 Colten G Furlong Work Phone: [facility] [employer] 250 DO Work Phone: 10-19-2021 14:25-0400 Body weight 118.84 kg Colten G Furlong Work Phone: [facility] [employer] 250 DO Work Phone: 10-19-2021 14:25-0400 Diastolic blood pressure 68 mm[Hg] Colten G Furlong Work Phone: [facility] [employer] 250 DO Work Phone: 10-19-2021 14:25-0400 Heart rate 74 /min Colten G Furlong [facility] Work Phone: 10-19-2021 14:25-0400 Systolic blood pressure 130 mm[Hg] Colten Pérezng Work Phone: [facility] [employer] 250 DO Work Phone: 06-06-2021 10:10-0400 Body height 188 cm Megan Interiano MD Work Phone: [facility] 06-06-2021 10:10-0400 Body weight 116.8 kg Megan Interiano MD Work Phone: [facility] 06-06-2021 10:10-0400 Diastolic blood pressure 71 mm[Hg] Megan Interiano MD Work Phone: [facility] 06-06-2021 10:10-0400 Heart rate 62 /min Megan Interiano MD Work Phone: [facility] 06-06-2021 10:10-0400 Respiratory rate 16 /min Megan Interiano MD Work Phone: [facility] 06-06-2021 10:10-0400 SaO2% (BldA) [Mass fraction] 98 % Megan Interiano MD Work Phone: [facility] 06-06-2021 10:10-0400 Systolic blood pressure 148 mm[Hg] Megan Interiano MD Work Phone: [facility] 05-26-2021 09:27-0400 Body height 187.96 cm Colten Amoslong [facility] 600 [facility] Work Phone: 05-26-2021 09:27-0400 Body mass index (BMI) [Ratio] 33.41 kg/m2 Colten Pérezng Work Phone: [facility] DO Work Phone: 05-26-2021 09:27-0400 Body surface area Derived from formula 2.43 m2 Colten Barnard Furlong Work Phone: [facility] [employer] 600 DO Work Phone: 05-26-2021 09:27-0400 Body weight 118.03 kg Colten G Furlong Work Phone: [facility] [employer] 600 DO Work Phone: 05-26-2021 09:27-0400 Diastolic blood pressure 66 mm[Hg] Colten Barnard Furlong Work Phone: [facility] [employer] 600 DO Work Phone: 05-26-2021 09:27-0400 Heart rate 62 /min Colten Barnard Furlong Work Phone: [facility] [employer] 600 DO Work Phone: 05-26-2021 09:27-0400 Systolic blood pressure 122 mm[Hg] Colten Barnard Furlong Work Phone: [facility] [employer] 600 DO Work Phone: 12-27-2020 13:15-0400 Body height 187.96 cm Colten Barnard Furlong Work Phone: [facility] [employer] 127 DO Work Phone: 12-27-2020 13:15-0400 Body mass index (BMI) [Ratio] 33.64 kg/m2 Colten Barnard Furlong Work Phone: [facility] [employer] 127 DO Work Phone: 12-27-2020 13:15-0400 Body surface area Derived from formula 2.44 m2 Colten G Furlong Work Phone: [facility] [employer] 127 DO Work Phone: 12-27-2020 13:15-0400 Body weight 118.84 kg Colten Raymond Furlong Work Phone: [facility] [employer] 127 DO Work Phone: 12-27-2020 13:15-0400 Diastolic blood pressure 74 mm[Hg] Colten G Furlong Work Phone: [facility] [employer] 127 DO Work Phone: 12-27-2020 13:15-0400 Heart rate 74 /min Colten G Furlong Work Phone: [facility] [employer] 127 DO Work Phone: 12-27-2020 13:15-0400 Systolic blood pressure 131 mm[Hg] Colten G Furlong Work Phone: [facility] [employer] 127 DO Work Phone: 12-23-2020 09:15-0400 0 1 Colten G Furlong Work Phone: [facility] [employer] [place] Work Phone: Comment on above: [id number] 11-10-2019 13:25-0400 BP Diastolic 78 mm[Hg] Liu Granadosse [facility] , [place] 11-10-2019 13:25-0400 BP Systolic 140 mm[Hg] Liu Granadosse [facility] , [place] 11-10-2019 13:25-0400 Pulse (Heart Rate) 78 /min Liu Granadosse [facility], [place] 11-10-2019 13:25-0400 Pulse Oximetry 97 % [facility] [place] 11-10-2019 13:25-0400 Respiratory Rate 16 /min Liu GranadosNOMAD GOODS [facility] [place] 11-10-2019 12:43-0400 Body Temperature 97.2 [degF] [facility] [place] 11-10-2019 10:06-0400 BMI (Body Mass Index) 35.31 kg/m2 Liu GranadosNOMAD GOODS [facility], [place] 11-10-2019 10:06-0400 Body weight 124.74 kg [facility] [place] 11-10-2019 10:06-0400 Height 188 cm Liu Jackson [facility] , [place] 11-02-2019 11:08-0400 BMI (Body Mass Index) 35.31 kg/m2 [facility], [place] 11-02-2019 11:08-0400 Body Temperature 98.01 [degF] [facility] [place] 11-02-2019 11:08-0400 Body weight 124.74 kg [facility] , [place] 11-02-2019 11:08-0400 BP Diastolic 94 mm[Hg] [facility] , [place] 11-02-2019 11:08-0400 BP Systolic 147 mm[Hg] [facility] , [place] 11-02-2019 11:08-0400 Height 188 cm [facility] , [place] 11-02-2019 11:08-0400 Pulse (Heart Rate) 83 /min [address], [place] 11-02-2019 11:08-0400 Pulse Oximetry 99 % [address] , [place] 11-02-2019 11:08-0400 Respiratory Rate 18 /min [address] Encounters Encounter Date Encounter Type Care Provider Facility Start: 11-24-2024 ambulatory Kamila Radford [facility] ty:[facility] Start: 11-18-2024 End: 11-18-2024 Office outpatient visit 15 minutes Deborah Jeronimo MD Work Phone: [facility] Comment on above: Benign prostatic hyp erplasia with urinary obstruction (Primary Dx) Start: 11-18-2024 End: 11-18-2024 ambulatory DEBORAH JERONIMO [facility] Start: 11-09-2024 End: 11-10-2024 Refill Iliana FLORES [facility] Start: 11-03-2024 End: 11-03-2024 Refill Iliana FLORES [facility] Comment on above: Benign prostatic hyp erplasia with urinary obstruction Start: 10-20-2024 End: 10-20-2024 ambulatory Colten Parra DO Work Phone: [facility] Work Phone: Start: 10-20-2024 End: 10-20-2024 Patient encounter procedure Alex Colin MD [facility] Work Phone: Start: 10-14-2024 End: 10-14-2024 Patient encounter procedure Kamila Radford [facility] Work Phone: Start: 10-14-2024 End: 10-14-2024 ambulatory Colten Furlong DO Work Phone: [facility] Work Phone: Start: 10-06-2024 End: 10-06-2024 ambulatory Colten Furlong DO Work Phone: [facility] Work Phone: Start: 10-06-2024 End: 10-06-2024 Patient encounter procedure Kamila Radford [facility] Work Phone: Start: 09-07-2024 End: 09-07-2024 Refill Coltensherri Amoslong DO Work Phone: [facility] Comment on above: Migraine, unspecifie d, not intractable, without status migrainosus Start: 08-21-2024 End: 08-21-2024 Office outpatient visit 25 minutes Rachel Stacy MD Work Phone: [facility] Comment on above: Atherosclerosis of n ative coronary artery of [place] heart without angina pectoris; Medication course changed; Primary hypertension; Mixed hyperlipidemia; Palpitations; Current every day smoker; Sleep apnea with use of continuous positive airway pressure (CPAP); BMI 35.0-35.9,adult Start: 08-17-2024 ambulatory RACHELMEDHAT STACY [facility] Start: 05-18-2024 End: 05-18-2024 Orders Only Colten G Furlong DO Work Phone: [facility] Comment on above: Migraine, unspecifie d, not intractable, without status migrainosus Start: 04-23-2024 End: 04-23-2024 Refill Esperanza Candelaria CMA [facility] Start: 03-18-2024 End: 03-19-2024 Orders Only Chery Victoria LPN [facility] Comment on above: Benign prostatic hyp erplasia with urinary obstruction (Primary Dx) Start: 03-10-2024 ambulatory [facility] Start: 03-05-2024 ambulatory [place] [facility] Start: 03-02-2024 End: 03-02-2024 ambulatory Antonio Bird MD Facility:[facility] Start: 02-21-2024 End: 02-21-2024 Office outpatient visit 25 minutes Rachel Stacy MD Work Phone: [facility] Comment on above: Shortness of breath; Encounter to discuss test results; History of PTCA; Mixed hyperlipidemia; Primary hypertension; Current every day smoker; BMI 37.0-37.9, adult; Medication course changed; Hypertension, unspecified type; Atherosclerosis of [place] coronary artery of [place] heart without angina pectoris; Other hyperlipidemia; Sleep apnea with use of continuous positive airway pressure (CPAP); History of ST elevation myocardial infarction (STEMI); BMI 35.0-35.9,adult Start: 02-07-2024 ambulatory [facility] Start: 02-05-2024 End: 02-05-2024 Office outpatient visit 15 minutes Deborah Jeronimo MD Work Phone: [facility] Comment on above: Benign prostatic hyp erplasia with urinary obstruction (Primary Dx) Start: 02-05-2024 End: 02-05-2024 ambulatory DEBORAH JERONIMO [facility] Start: 01-22-2024 End: 01-22-2024 Evaluation and management of inpatient [facility] Start: 01-21-2024 End: 01-21-2024 ambulatory [facility] Pat Phone Call Provider 1 [facility] - Pre Admit Start: 01-21-2024 End: 01-21-2024 Refill Colten Parra DO Work Phone: [facility] Comment on above: Migraine, unspecifie d, not intractable, without status migrainosus Start: 01-21-2024 End: 01-21-2024 [facility] Start: 01-15-2024 ambulatory ZAINAB MARSHALL [facility] Start: 01-09-2024 End: 01-09-2024 ambulatory Colten Ashmore Facility:[facility] Start: 01-07-2024 End: 01-07-2024 Telephone encounter Andre Hand MD Work Phone: [facility] Start: 01-06-2024 End: 01-06-2024 Office outpatient visit 25 minutes Rachel Stacy MD Work Phone: [facility] Comment on above: Coronary artery dise ase involving [place] coronary artery of [place] heart with unstable angina pectoris (Primary Dx); Encounter to discuss test results; Shortness of breath; History of PTCA; History of ST elevation myocardial infarction (STEMI); Primary hypertension; Other hyperlipidemia; Palpitations; Acute cough; Sleep apnea with use of continuous positive airway pressure (CPAP); BMI 37.0-37.9, adult; Current every day smoker; Fatigue, unspecified type; Medication course changed Start: 12-30-2023 End: 12-30-2023 [facility] Start: 12-13-2023 End: 12-13-2023 Office outpatient new 60 minutes Guicho Mulligan MD Work Phone: [facility] Comment on above: Hypertension, unspec ified type; Atherosclerosis of [place] coronary artery of [place] heart without angina pectoris; Current every day smoker; Other hyperlipidemia; Palpitations; Unstable angina pectoris (Multi); Sleep apnea with use of continuous positive airway pressure (CPAP); History of ST elevation myocardial infarction (STEMI); History of PTCA; Shortness of breath; Acute cough; BMI 35.0-35.9,adult Start: 12-06-2023 End: 12-06-2023 ambulatory TAUNTON Raymond [facility] Start: 12-06-2023 End: 12-06-2023 Office outpatient visit 15 minutes Jenae Hernandez Rossi DO Work Phone: [facility] Comment on above: Acute bronchitis, un specified organism (Primary Dx); Upper respiratory symptom Start: 10-21-2023 End: 10-21-2023 Refill Colten Parra DO Work Phone: [facility] Comment on above: Migraine, unspecifie d, not intractable, without status migrainosus Start: 09-24-2023 End: 10-01-2023 Telephone encounter Colten Amoszafarhenry DO Work Phone: [facility] Start: 09-23-2023 End: 09-24-2023 Refill Hunter Robins [employer] BATTERY CHARGER-CORRESPONDENCE DICTATOR Work Phone: [facility] Start: 09-09-2023 End: 09-09-2023 Office outpatient visit 25 minutes Deborah Jeronimo MD Work Phone: [facility] Comment on above: Benign prostatic hyp erplasia with urinary obstruction (Primary Dx) Start: 08-28-2023 End: 08-28-2023 Office outpatient visit 25 minutes Leonid Figueredo MD Work Phone: [facility] Comment on above: Atherosclerosis of n ative coronary artery of [place] heart without angina pectoris (Primary Dx); History of PTCA; Mixed hyperlipidemia; Primary hypertension; Current every day smoker; BMI 35.0-35.9,adult Start: 08-21-2023 End: 08-21-2023 Telephone encounter Deborah Jeronimo MD Work Phone: [facility] Start: 08-21-2023 End: 08-21-2023 Evaluation and management of inpatient DEBORAH JERONIMO [facility] Start: 08-20-2023 End: 08-20-2023 ambulatory [facility] Pat Phone Call Provider 1 [facility] - Pre Ad[facility] Start: 08-13-2023 End: 08-13-2023 Telephone encounter Shlomo Huber CMA [facility] Start: 08-12-2023 End: 08-12-2023 ambulatory Christina Palm MD Facility:[facility] Start: 08-07-2023 End: 08-07-2023 Refill Colten Parra DO Work Phone: [facility] Start: 08-06-2023 End: 08-06-2023 Orders Only Magda Castle [employer]VE[employer] BATTERY CHARGER-SUPERVISOR DRAWING Work Phone: [facility] Comment on above: Acute non-recurrent frontal sinusitis (Primary Dx) Start: 08-05-2023 End: 08-05-2023 Office outpatient visit 15 minutes Magda Uribe Tin CONVE[employer] BATTERY CHARGER-SUPERVISOR DRAWING Work Phone: [facility] Comment on above: Acute non-recurrent frontal sinusitis (Primary Dx); Pigmented skin lesion of uncertain behavior of neck Start: 07-26-2023 End: 07-26-2023 [facility] Comment on above: Benign prostatic hyp erplasia with urinary obstruction Start: 07-26-2023 End: 07-26-2023 NO CHARGE LEVEL OF SERVICE [facility] Start: 07-04-2023 End: 07-04-2023 ambulatory DEBORAH JERONIMO [facility] Start: 07-04-2023 End: 07-04-2023 Telephone encounter Deborah Jeronimo MD Work Phone: [facility] Start: 07-04-2023 End: 07-04-2023 Office consultation new/estab patient 60 min Deborah Jeronimo MD Work Phone: [facility] Comment on above: Benign prostatic hyp erplasia with urinary obstruction (Primary Dx); Enlarged prostate Start: 06-26-2023 End: 06-26-2023 Refill Colten Parra DO [facility] Comment on above: Migraine, unspecifie d, not intractable, without status migrainosus Start: 06-17-2023 End: 06-17-2023 ambulatory Christina Palm MD Facility:[facility] Start: 05-01-2023 End: 05-02-2023 ambulatory HUNTER ROBINS [facility] Start: 05-01-2023 End: 05-01-2023 Office outpatient visit 15 minutes Hunter Robins [employer] CHARGER-CORRESPONDENCE DICTATOR Work Phone: [facility] Comment on above: Essential hypertensi on (Primary Dx); Chronic hip pain, left; Mixed hyperlipidemia; Enlarged prostate; Skin lesion of left lower limb Start: 04-01-2023 Refill Hunter David Robins [employer] BATTERY CHARGER-CORRESPONDENCE DICTATOR Work Phone: [facility] Comment on above: Migraine, unspecifie d, not intractable, without status migrainosus Start: 11-26-2022 Patient encounter procedure Colten Parra Work Phone: [facility] 250 DO Work Phone: Start: 07-31-2022 End: 08-01-2022 ambulatory NARENDRANATH LAKSHMIPATHY . Facility:[facility] Start: 07-31-2022 End: 08-01-2022 ambulatory AD GOTTLIBE . Facility:[facility] Start: 06-14-2022 End: 06-15-2022 ambulatory NARENDRANATH LAKSHMIPATHY . Facility:[facility] Start: 05-08-2022 ambulatory [facility] Start: 05-03-2022 End: 05-03-2022 ambulatory HUNTER ROBINS Facility:[facility] Start: 03-15-2022 End: 03-16-[address] COMPA AWAD . Facility:[facility] Start: 02-15-2022 Encounter for preprocedural laboratory examination DR COMPA AWAD . [facility] Start: 02-13-2022 End: 02-13-[address] COMPA AWAD . Facility:[facility] Start: 02-09-2022 End: 02-10-[address] COMPA AWAD . Facility:[facility] Start: 02-09-2022 End: 02-10-2022 Encounter for preprocedural laboratory examination DR COMPA AWAD . Facility:[facility] Start: 01-16-2022 End: 01-17-[address] COMPA AWAD . Facility:[facility] Start: 01-09-2022 End: 01-09-[address] COMPA AWAD . Facility:[facility] Start: 01-08-2022 Rx Renewal Colten figueroa Work Phone: [facility] 250 DO Work Phone: Start: 01-08-2022 Rx Renewal Colten figueroa Work Phone: [facility] 250 DO Work Phone: Start: 12-28-2021 End: 12-29-2021 ambulatory HUNTER ROBINS Facility:[facility] Start: 12-28-2021 End: 12-29-[address] COMPA AWAD . Facility:[facility] Start: 12-12-2021 End: 12-12-[address] COMPA AWAD . Facility:[facility] Start: 11-29-2021 Rx Renewal Coltensherri figueroa Work Phone: [facility] 250 DO Work Phone: Start: 10-26-2021 End: 10-27-[address] COMPA AAWD . Facility:[facility] Start: 10-19-2021 Office outpatient vi sit 25 minutes Coltensherri Parra Work Phone: [facility] 250 DO Work Phone: Start: 08-23-2021 Message Colten Amoszafar henry Work Phone: [facility] 250 DO Work Phone: Start: 07-04-2021 Telephone encounter Megan garcia MD Work Phone: [facility] Comment on above: Schedule Surgery Start: 06-06-2021 End: 06-06-2021 Patient encounter procedure Megan Interiano MD Work Phone: [facility] Comment on above: Cervical spondylosis with myelopathy (Primary Dx); Loss of balance; Spinal stenosis of cervical region Start: 05-26-2021 Office outpatient vi sit 25 minutes Colten Pérezng Work Phone: [facility] [employer] 600 DO Work Phone: Start: 01-03-2021 Chart Update Colten Pérez ng Work Phone: [facility] 127 DO Work Phone: Start: 12-27-2020 FUV, Provider: Kalie Lebron, Status: Pen, Time: 1:00 PM Colten Pérezng Work Phone: [facility] [address] [place] Work Phone: Start: 12-27-2020 Office outpatient vi sit 25 minutes Colten Pérezng Work Phone: [facility] 127 DO Work Phone: Start: 12-23-2020 Patient encounter procedure Colten Parra Work Phone: [facility] [address] [place] Work Phone: Start: 05-04-2020 End: 05-05-2020 Patient encounter procedure SHIVAPRASAD Paulina [facility] Start: 05-04-2020 End: 05-04-2020 Subsequent hospital visit by physician Kash [facility] Start: 05-03-2020 End: 05-04-2020 Patient encounter procedure SHIVAPRASAD Paulina [facility] Start: 05-03-2020 End: 05-03-2020 Subsequent hospital visit by physician Kash [facility] Comment on above: Chest discomfort; Essential hypertension Start: 05-03-2020 End: 05-06-2020 Patient encounter procedure FLACO CARTER [facility] Start: 05-03-2020 End: 05-05-2020 Subsequent hospital visit by physician Alexa Shukla Xr Rm 1 [facility] Radiology Comment on above: Chest discomfort Start: 11-10-2019 End: 11-10-2019 Patient encounter procedure LIU JACKSON [facility] Start: 11-10-2019 End: 11-10-2019 Subsequent hospital visit by physician Liu Jackson Work Phone: [facility] Comment on above: Acute medial meniscu s tear of left knee, initial encounter (Primary Dx) Start: 11-06-2019 End: 11-11-2019 Patient encounter procedure ANAYA HORTON [facility] Start: 11-06-2019 End: 11-10-2019 Subsequent hospital visit by physician Alexa Covid19 Pat Screening Schedule [facility] Pre-Admit Testing Start: 11-02-2019 End: 11-06-2019 Patient encounter procedure MARGARITA Gallardo [facility] Start: 11-02-2019 End: 11-06-2019 Subsequent hospital visit by physician Mary Pat Rm 2 [facility] Pre-Admit Testing Start: 10-27-2019 End: 10-30-2019 Patient encounter procedure MARGARITA Gallardo [facility] Start: 10-27-2019 End: 10-29-2019 Subsequent hospital visit by physician Alexa Mri Rm 119 [facility] MRI Comment on above: Effusion of left kne e; Injury of left knee, subsequent encounter Start: 09-29-2019 End: 10-02-2019 Patient encounter procedure MISSYD Paulina [facility] Start: 09-29-2019 End: 10-01-2019 Subsequent hospital visit by physician Alexa Xr Room 4 [facility] Radiology Comment on above: Acute pain of left k nee Start: 09-29-2019 End: 09-29-2019 Patient encounter procedure KASHGRACIE GRIER [facility] Start: 09-28-2019 End: 09-28-2019 Subsequent hospital visit by physician Margarita [facility] Comment on above: Gout of foot, unspec ified cause, unspecified chronicity, unspecified laterality Start: 12-09-2018 End: 12-09-2018 Subsequent hospital visit by physician Margarita GARC[place]A [place] [facility] Comment on above: Gouty arthritis of r ight foot Start: 11-05-2018 End: 11-05-2018 Subsequent hospital visit by physician Margarita GARC[facility]A [facility] Comment on above: Essential hypertensi on; Prostate cancer screening Procedures Date Procedure Procedure Detail Performing Clinician Start: 11-18-2024 MEASURE POST VOID RESIDUAL Deborah Jeronimo MD Work Phone: Start: 10-14-2024 X-ray of lumbar spin e, six views including bending views Colten Fidel DO Work Phone: Start: 02-05-2024 Follow-up visit Follow-up DEBORAH JERONIMO Start: 12-13-2023 Ecg routine ecg w/le ast 12 lds w/i&r Guicho Mulligan MD Work Phone: Start: 12-06-2023 POCT INFLUENZA A/INF LUENZA B/SARS-COV-2 VERITOR Jenae David Rossi DO Work Phone: Start: 08-05-2023 Adult depression scr eening assessment Magda Castle CONVEYOR [employer] BATTERY CHARGER-SUPERVISOR DRAWING Work Phone: Start: 07-04-2023 Urnls dip stick/tabl et rgnt auto w/o microscopy Deborah Jeronimo MD Work Phone: Start: 05-01-2023 Adult depression scr eening assessment Hunter Robins CONVEYOR LINE BATTERY CHARGER-CORRESPONDENCE DICTATOR Work Phone: Start: 04-02-2023 History of percutane ous transluminal coronary angioplasty History of PTCA Leonid Figueredo MD Work Phone: Start: 12-14-2022 Adult depression scr eening assessment Hunter Robins CONVEYOR LINE BATTERY CHARGER-CORRESPONDENCE DICTATOR Work Phone: Start: 06-04-2021 Adult depression scr eening assessment Megan Interiano MD Work Phone: Start: 12-23-2020 Echocardiography Colten Parra Work Phone: Start: 05-04-2020 Assay of troponin quantitative Harlanprad Paulina Maxwell Work Phone: Start: 05-03-2020 Radiologic exam ches t 2 views Harlanprasad K Gurjit Work Phone: Start: 05-03-2020 Assay of thyroid sti mulating hormone tsh Harlanprasad K Gurjit Work Phone: Start: 05-03-2020 Blood count complete automated Brendavaprasad K Gurjit Work Phone: Start: 05-03-2020 Comprehensive metabo lic panel Brendavaprasad K Gurjit Work Phone: Start: 05-03-2020 Lipid panel Brendavaprasa d K Gurjit Work Phone: Start: 11-10-2019 [...] jt lower ext rem w/o contrast matrl MISSYD GURJIT Start: 10-27-2019 Mri any jt lower ext rem w/o contrast matrl Patriazaire Joinervalentina Work Phone: Start: 09-29-2019 Radiologic examinati on knee 3 views HARLANPRAD GURJIT Start: 09-29-2019 Radiologic examinati on knee 3 views Kash Murciaprudencio Work Phone: Start: 09-28-2019 Assay of blood/uric acid KASH MURCIAEMERALDDAMEON Start: 09-28-2019 Assay of blood/uric acid Kash Murciaprudencio Work Phone: Start: 12-09-2018 Assay of blood/uric acid Kash Murciaemeralddameon Work Phone: Start: 11-05-2018 [object Object] Shivapr kay Gurjit Comment on above: The Cole ECLIA as say is used. Results obtained with different assay methods cannot be used interchangeably. Start: 11-05-2018 Blood count complete automated Shivaprasad K Gurjit Work Phone: Start: 11-05-2018 Comprehensive metabo lic panel Brendavaprasad K Gurjit Work Phone: Start: 11-05-2018 Lipid panel Howardsa d Paulina Maxwell Work Phone: Start: 11-05-2018 PSA screening Harlanpratimothy ad Paulina Gurjit Work Phone: Decompression of med trudy nerve Colten Parra Work Phone: History of percutane ous transluminal coronary angioplasty History of PTCA Colten Parra Work Phone: History of percutane [...] Stacy MD Work Phone: Leg repair Colten barnard Work Phone: Comment on above: tibial plateau screw s; Nasal sinus procedure Colten Parra Work Phone: Operative procedure on ankle Colten Parra Work Phone: Operative procedure on knee Colten Parra Work Phone: Procedure on back Colten conway Work Phone: Plan of Treatment Date Care Activity Detail Author Start: 11-18-2025 Adult BMI Screening Adult BMI Screening [facility] Start: 11-18-2025 Tobacco Screening [email or web address] Start: 10-06-2025 End: 10-06-2025 Patient encounter procedure 10/06/2025 1:15 PM EDT Office Visit [facility] [address] [place] [address] [place] [address] Deborah Jeronimo MD [address] [place] [address] [facility] Start: 06-21-2025 Screening for malignant neoplasm of colon [facility] Start: 05-03-2025 Lipid panel Lipid screen [facility] [employer] Phone: Start: 04-28-2025 Hepatitis C screening Hepatitis C screen [facility] [employer] Phone: Comment on above: Postponed from 1965 (Patient Refus ed) Start: 04-28-2025 HIV screening HIV screen [facility] [employer] Phone: Comment on above: Postponed from 1980 (Patient Refus ed) Start: 02-22-2025 End: 02-22-2025 Patient encounter procedure 02/22/2025 11:00 AM EST Office Visit [facility] [address] [facility] [address] [place] [address] Rachel Stacy MD [address] [facility] [address] [place] [address] [facility] Start: 02-04-2025 Adult BMI Screening Adult BMI Screening [facility] Start: 02-04-2025 Tobacco Screening Tobacco Screening [facility] Start: 01-21-2025 Tobacco Screening Tobacco Screening [facility] Start: 01-20-2025 Statin Use: Cardiovascular Statin Use: Cardiovascular [facility] Start: 12-05-2024 Adult BMI Screening Adult BMI Screening [facility] Start: 12-05-2024 Tobacco Screening Tobacco Screening [facility] Start: 11-18-2024 End: 11-18-2024 Patient encounter procedure 11/18/2024 2:15 PM EDT Office Visit [facility] [address] [place] [address] [place] [address] Deborah Jeronimo MD [facility] [place] [address] [facility] Start: 11-02-2024 Influenza vaccination [facility] Start: 10-06-2024 Patient referral [facility] Work Phone: Start: 09-08-2024 Adult BMI Screening Adult BMI Screening [facility] Start: 09-08-2024 Tobacco Screening [facility] Start: 08-28-2024 End: 08-21-2025 Basic metabolic 2000 panel - Serum or Plasma Basic Metabolic Panel Lab Routine Medication course changed Primary hypertension Expected: 08/28/2024, Expires: 08/21/2025 [facility] Work Phone: Comment on above: Expected: 08/28/2024, Expires: Start: 08-21-2024 End: 08-21-2025 Comprehensive metabolic 2000 panel - Serum or Plasma [facility] Work Phone: Comment on above: Expected: 08/21/2024 (Approximate), Expi res: 02/20/2025 Expected: 08/21/2024 (Approximate), Expires: 08/21/2025 Start: 08-21-2024 End: 08-21-2025 Lipid 1996 panel - Serum or Plasma [facility] Work Phone: Comment on above: Expected: 08/21/2024 (Approximate), Expi res: 02/20/2025 Expected: 08/21/2024 (Approximate), Expires: 08/21/2025 Start: 08-21-2024 End: 08-21-2024 Patient encounter procedure 08/21/2024 9:45 AM EDT Office Visit [facility] [address] [facility] [address] [place] [address] Rachel Stacy MD [address] [facility] [address] [place], [place] [id number] [facility] Start: 08-20-2024 Tobacco Screening Tobacco Screening [facility] Start: 08-19-2024 Adult BMI Screening Adult BMI Screening [facility] Start: 08-04-2024 Adult BMI Screening [facility] Start: 08-04-2024 Depression Screening Depression Screening [facility] Start: 08-04-2024 Tobacco Screening Tobacco Screening [facility] Start: 07-03-2024 Adult BMI Screening Adult BMI Screening [facility] Start: 07-03-2024 Tobacco Screening Tobacco Screening [facility] Start: 05-01-2024 Adult BMI Screening Adult BMI Screening [facility] Start: 05-01-2024 Depression Screening Depression Screening [facility] Start: 05-01-2024 Tobacco Screening Tobacco Screening [facility] Start: 03-23-2024 End: 02-20-2025 Basic metabolic 2000 panel - Serum or Plasma Basic Metabolic Panel Lab Routine Primary hypertension Expected: 03/23/2024 (Approximate), Expires: 02/20/2025 [facility] Service Area Work Phone: Comment on above: Expected: 03/23/2024 (Approximate), Expi res: 02/20/2025 Start: 03-12-2024 End: 03-12-2024 Patient encounter procedure 03/12/2024 2:15 PM EST Office Visit [address] [phone] Rachel Stacy MD [address] [id number] [facility] Start: 02-21-2024 End: 02-21-2024 Patient encounter procedure 02/21/2024 1:15 PM EST Office Visit [address] [phone] Rachel Stacy MD [address] [address] [facility] Start: 02-05-2024 End: 02-05-2024 Patient encounter procedure 02/05/2024 2:15 PM EST Office Visit [facility] [address] [place] [address] [place] [address] Deborah Jeronimo MD [address] [place] [address] [facility] Start: 01-22-2024 End: 01-22-2024 Admission to same day surgery center 01/22/2024 11:30 AM EST - 01/22/2024 12:00 PM EST Surgery [facility] [address] [place] [phone] Zainab Marshall, DO [address] [place] [address] INJECTION HIP & CPT 13506 [ (CPT )] [facility] Comment on above: INJECTION HIP & CPT 55946 [ (CPT )] Start: 01-22-2024 End: 01-22-2024 Arthrocentesis aspir&/inj major jt/bursa w/o us INJECTION HIP left hip acetabular labrum tear, osteoarthritis 01/22/2024 11:30 AM EST [facility] Start: 01-22-2024 Subsequent hospital visit by physician 01/22/2024 11:30 AM EST Hospital Encounter [facility] - Surgery [address] [place] [phone] Zainab Marshall, DO [address] [place] [address] [facility] Start: 01-10-2024 End: 01-10-2024 Patient encounter procedure 01/10/2024 2:15 PM EST Office Visit [facility] [address] [facility] [address] [place] [address] Rachel Stacy MD [address] [facility] [address] [place], [place] [id number] [facility] Start: 01-06-2024 End: 01-05-2025 Natriuretic peptide B [Mass/volume] in Blood B-Type Natriuretic Peptide Lab Routine Shortness of breath Expected: 01/06/2024 (Approximate), Expires: 01/05/2025 [facility] Work Phone: Comment on above: Expected: 01/06/2024 (Approximate), Expi res: 01/05/2025 Start: 12-23-2023 Tobacco Counseling Tobacco Counseling [facility] Comment on above: Postponed from 1965 (Not Indicated ) Start: 12-18-2023 Adult BMI Screening Adult BMI Screening [facility] Start: 12-18-2023 Tobacco Screening Tobacco Screening [facility] Start: 12-15-2023 Depression Screening Depression Screening [facility] Start: 12-13-2023 End: 12-12-2024 Basic metabolic 2000 panel - Serum or Plasma Basic Metabolic Panel Lab Routine Hypertension, unspecified type Atherosclerosis of [place] coronary artery of [place] heart without angina pectoris Current every day smoker Other hyperlipidemia Palpitations Unstable angina pectoris (Multi) Sleep apnea with use of continuous positive airway pressure (CPAP) History of ST elevation myocardial infarction (STEMI) History of PTCA Shortness of breath Acute cough BMI 35.0-35.9,adult Expected: 12/13/2023, Expires: 12/12/2024 [facility] Work Phone: Comment on above: Expected: 12/13/2023, Expires: Start: 12-13-2023 End: 12-12-2024 CBC panel - Blood by Automated count CBC Lab Routine Hypertension, unspecified type Atherosclerosis of [place] coronary artery of [place] heart without angina pectoris Current every day smoker Other hyperlipidemia Palpitations Unstable angina pectoris (Multi) Sleep apnea with use of continuous positive airway pressure (CPAP) History of ST elevation myocardial infarction (STEMI) History of PTCA Shortness of breath Acute cough BMI 35.0-35.9,adult Expected: 12/13/2023, Expires: 12/12/2024 [facility] Work Phone: Comment on above: Expected: 12/13/2023, Expires: Start: 12-13-2023 End: 12-12-2024 Hepatic function 2000 panel - Serum or Plasma Hepatic Function Panel Lab Routine Hypertension, unspecified type Atherosclerosis of [place] coronary artery of [place] heart without angina pectoris Current every day smoker Other hyperlipidemia Palpitations Unstable angina pectoris (Multi) Sleep apnea with use of continuous positive airway pressure (CPAP) History of ST elevation myocardial infarction (STEMI) History of PTCA Shortness of breath Acute cough BMI 35.0-35.9,adult Expected: 12/13/2023, Expires: 12/12/2024 [facility] Work Phone: Comment on above: Expected: 12/13/2023, Expires: Start: 12-13-2023 End: 12-12-2025 Holter monitor study Holter Or Event [employer] [facility] Routine Hypertension, unspecified type Atherosclerosis of [place] coronary artery of [place] heart without angina pectoris Current every day smoker Other hyperlipidemia Palpitations Unstable angina pectoris (Multi) Sleep apnea with use of continuous positive airway pressure (CPAP) History of ST elevation myocardial infarction (STEMI) History of PTCA Shortness of breath Acute cough BMI 35.0-35.9,adult Expected: 12/13/2023 (Approximate), Expires: 12/12/2025 [facility] Work Phone: Comment on above: Expected: 12/13/2023 (Approximate), Expi res: 12/12/2025 Start: 12-13-2023 End: 12-12-2024 Lipid 1996 panel - Serum or Plasma Lipid Panel Lab Routine Hypertension, unspecified type Atherosclerosis of [place] coronary artery of [place] heart without angina pectoris Current every day smoker Other hyperlipidemia Palpitations Unstable angina pectoris (Multi) Sleep apnea with use of continuous positive airway pressure (CPAP) History of ST elevation myocardial infarction (STEMI) History of PTCA Shortness of breath Acute cough BMI 35.0-35.9,adult Expected: 12/13/2023, Expires: 12/12/2024 [facility] Work Phone: Comment on above: Expected: 12/13/2023, Expires: Start: 12-13-2023 End: 12-12-2024 Magnesium [Mass/volume] in Serum or Plasma Magnesium Lab Routine Hypertension, unspecified type Atherosclerosis of [place] coronary artery of [place] heart without angina pectoris Current every day smoker Other hyperlipidemia Palpitations Unstable angina pectoris (Multi) Sleep apnea with use of continuous positive airway pressure (CPAP) History of ST elevation myocardial infarction (STEMI) History of PTCA Shortness of breath Acute cough BMI 35.0-35.9,adult Expected: 12/13/2023, Expires: 12/12/2024 [facility] Work Phone: Comment on above: Expected: 12/13/2023, Expires: Start: 12-13-2023 End: 12-12-2025 NM Heart Perfusion W stress and W radionuclide IV Nuclear Stress Test Cardiac Nuclear Medicine Routine Hypertension, unspecified type Atherosclerosis of [place] coronary artery of [place] heart without angina pectoris Current every day smoker Other hyperlipidemia Palpitations Unstable angina pectoris (Multi) Sleep apnea with use of continuous positive airway pressure (CPAP) History of ST elevation myocardial infarction (STEMI) History of PTCA Shortness of breath Acute cough BMI 35.0-35.9,adult Expected: 12/13/2023 (Approximate), Expires: 12/12/2025 [facility] Work Phone: Comment on above: Expected: 12/13/2023 (Approximate), Expi res: 12/12/2025 Start: 12-13-2023 End: 12-12-2024 Thyrotropin [Units/volume] in Serum or Plasma Thyroid Stimulating Hormone Lab Routine Hypertension, unspecified type Atherosclerosis of [place] coronary artery of [place] heart without angina pectoris Current every day smoker Other hyperlipidemia Palpitations Unstable angina pectoris (Multi) Sleep apnea with use of continuous positive airway pressure (CPAP) History of ST elevation myocardial infarction (STEMI) History of PTCA Shortness of breath Acute cough BMI 35.0-35.9,adult Expected: 12/13/2023, Expires: 12/12/2024 [facility] Work Phone: Comment on above: Expected: 12/13/2023, Expires: Start: 12-13-2023 End: 12-12-2025 US Heart Transthoracic Transthoracic Echo (TTE) Complete Echocardiography Routine Hypertension, unspecified type Atherosclerosis of [place] coronary artery of [place] heart without angina pectoris Current every day smoker Other hyperlipidemia Palpitations Unstable angina pectoris (Multi) Sleep apnea with use of continuous positive airway pressure (CPAP) History of ST elevation myocardial infarction (STEMI) History of PTCA Shortness of breath Acute cough BMI 35.0-35.9,adult Expected: 12/13/2023 (Approximate), Expires: 12/12/2025 [facility] Service Area Work Phone: Comment on above: Expected: 12/13/2023 (Approximate), Expi res: 12/12/2025 Start: 12-13-2023 End: 12-12-2024 XR Chest 2 Views XR chest 2 views Imaging Routine Hypertension, unspecified type Atherosclerosis of [place] coronary artery of [place] heart without angina pectoris Current every day smoker Other hyperlipidemia Palpitations Unstable angina pectoris (Multi) Sleep apnea with use of continuous positive airway pressure (CPAP) History of ST elevation myocardial infarction (STEMI) History of PTCA Shortness of breath Acute cough BMI 35.0-35.9,adult Expected: 12/13/2023 (Approximate), Expires: 12/12/2024 [facility] Work Phone: Comment on above: Expected: 12/13/2023 (Approximate), Expi res: 12/12/2024 Start: 11-06-2023 Lipid panel Lipid screen [place], [place] Start: 11-06-2023 Lipid screen [place]id [place] Start: 11-03-2023 COVID-19 Vaccine ( season) COVID-19 Vaccine ( season) [facility] Start: 11-03-2023 COVID-19 Vaccine ( season) COVID-19 Vaccine ( season) [facility] Start: 11-03-2023 Influenza vaccination [facility] Start: 10-09-2023 End: 10-09-2023 Patient encounter procedure 10/09/2023 12:30 PM EDT Office Visit [facility] [address] [place] [address] [place] [address] Deborah Jeronimo MD [address] [place] [address] [facility] Start: 09-30-2023 End: 09-30-2023 Admission to same day surgery center 09/30/2023 7:30 AM EDT - 09/30/2023 9:15 AM EDT [facility] [address] [place] [address] [address] [place] [address] Deborah Jeronimo MD [address] [place] [address] CYSTOSCOPY BIPOLAR TRANSURETHRAL RESECTION PROSTATE [94191 (CPT )] [facility] Ambulatory Surgery A Division [facility] Comment on above: CYSTOSCOPY BIPOLAR TRANSURETHRAL RESECTI ON PROSTATE [36200 (CPT )] Start: 09-30-2023 Subsequent hospital visit by physician 09/30/2023 7:30 AM EDT Hospital Encounter [facility] Surgery A Division of [facility] Surgery [address] [place] [address] 2 [place] [phone] Deborah Jeronimo MD [address] [place] [address] [facility] Ambulatory Surgery A [facility] Surgery Start: 09-30-2023 End: 09-30-2023 Trurl electrosurg rescj prostate bleed complete CYSTOSCOPY BIPOLAR TRANSURETHRAL RESECTION PROSTATE Enlarged prostate Benign prostatic hyperplasia with urinary obstruction 09/30/2023 7:30 AM EDT [facility] AM[facility]UL[facility] SURGERY Start: 09-16-2023 End: 09-16-2023 Patient encounter procedure 09/16/2023 9:30 AM EDT Procedure visit [facility] On [address] [address] [facility] Start: 09-09-2023 End: 09-09-2023 Patient encounter procedure 09/09/2023 12:30 PM EDT Office Visit [facility] [address] [place] [address] [facility] [place] [address] Deborah Jeronimo MD [address] [place] [address] [facility] Start: 08-21-2023 End: 08-21-2023 Admission to same day surgery center 08/21/2023 8:30 AM EDT - 08/21/2023 9:00 AM EDT Surgery [facility] Surgery [address] [place] [phone] Deborah Jeronimo MD [address] [place] [address] CYSTOSCOPY WITH [facility] BLADDER SOLUTION [92102 (CPT )] [facility] Surgery Comment on above: CYSTOSCOPY WITH U OF M BLADDER SOLUTION [15688 (CPT )] Start: 08-21-2023 End: 08-21-2023 Cystourethroscopy [facility] Start: 08-21-2023 Subsequent hospital visit by physician 08/21/2023 8:30 AM EDT Hospital Encounter [facility] - Surgery [address] [place] [phone] Deborah Jeronimo MD [address] [place] [address] [facility] - Surgery Start: 08-20-2023 End: 08-20-2023 ambulatory 08/20/2023 4:00 PM EDT Support Visit [facility] - Pre Admit [address] [place] [phone] [facility] - Pre Admit Start: 07-26-2023 End: 07-26-2023 ambulatory 07/26/2023 1:00 PM EDT Support Visit [facility] [address] [place] [phone] [facility] Start: 07-04-2023 End: 07-03-2024 Cystometrogram Cystometrogram Procedure Routine Benign prostatic hyperplasia with urinary obstruction Expected: 07/04/2023, Expires: 07/03/2024 [facility] Comment on above: Expected: 07/04/2023, Expires: Start: 07-04-2023 End: 07-03-2024 US Retroperitoneum Ultrasound retroperitoneal complete Imaging Routine Benign prostatic hyperplasia with urinary obstruction Expected: 07/04/2023, Expires: 07/03/2024 [facility] Comment on above: Expected: 07/04/2023, Expires: Start: 07-04-2023 End: 07-04-2023 Patient encounter procedure 07/04/2023 1:00 PM EDT Office Visit [facility] [address] [place] [phone] Deborah Jeronimo MD [address] [place] [address] [facility] Start: 06-09-2023 Administration of varicella zoster vaccine Zoster (Shingles) Vaccine (1 of 2) [facility] Comment on above: Postponed from 07/09/2015 (Patient Refus ed) Start: 06-09-2023 DTaP,Tdap and Td Vaccines (1 - Tdap) DTaP,Tdap and Td Vaccines (1 - Tdap) [facility] Comment on above: Postponed from 1984 (Patient Refus ed) Start: 06-02-2023 Influenza vaccination Influenza Vaccine [facility] Comment on above: Postponed from 11/02/2022 (Patient Refus ed) Start: 05-01-2023 End: 05-01-2023 Patient encounter procedure 05/01/2023 10:30 AM EST Office Visit [facility] [address] [place] [address] Hunter Robins, CONVEYOR LINE BATTERY CHARGER-CORRESPONDENCE DICTATOR [address] [place] [address] [facility] Start: 11-02-2022 COVID-19 Vaccine ( season) COVID-19 Vaccine ( season) [facility] Start: 07-13-2022 FUV, Provider: Leonid Figueredo, Status: Pen, Time: 9:00 AM FUV, Provider: Leonid Figueredo, Status: Pen, Time: 9:00 AM [facility] 250 DO Work Phone: Start: 06-04-2022 Adult depression screening assessment DEPRESSION SCREENING [facility] Start: 11-19-2021 Diabetes mellitus screening Diabetes Screening [facility] Start: 11-02-2021 Influenza vaccination INFLUENZA (Season Ended) [facility] Start: 10-27-2021 FUV, Provider: Leonid Figueredo, Status: Pen, Time: 2:50 PM FUV, Provider: Leonid Figueredo, Status: Pen, Time: 2:50 PM [facility] 600 DO Work Phone: Start: 05-03-2021 Creatinine measurement Creatinine monitoring Localist Phone: Start: 05-03-2021 Potassium monitoring Potassium monitoring Localist Phone: Start: 04-28-2021 Influenza vaccination Flu vaccine (#1) Localist Phone: Comment on above: Postponed from 11/03/2019 (Patient Refus ed) Start: 04-28-2021 Pneumococcal 0-64 years Vaccine (1 of 1 - PPSV23) Pneumococcal 0-64 years Vaccine (1 of 1 - PPSV23) Localist Phone: Comment on above: Postponed from 07/09/1971 (Patient Refus ed) Start: 03-30-2021 FUV, Provider: Rachel Stacy, Status: Pen, Time: 4:30 PM FUV, Provider: Rachel Stacy, Status: Pen, Time: 4:30 PM [facility] 127 DO Work Phone: Start: 12-27-2020 FUV, Provider: Kalie Lebron, Status: Pen, Time: 1:00 PM FUV, Provider: Kalie Lebron, Status: Pen, Time: 1:00 PM [facility] [address] [place] Work Phone: Start: 11-01-2020 Creatinine measurement [facility] [place] Start: 11-01-2020 Potassium monitoring Potassium monitoring [facility] [employer] [place], [place] Start: 10-05-2020 Shingles Vaccine (1 of 2) Shingles Vaccine (1 of 2) [facility] [place] Comment on above: Postponed from 07/09/2015 (Patient Refus ed) Start: 2020 PROSTATE CANCER SCREENING DISCUSSION PROSTATE CANCER SCREENING DISCUSSION [facility] Start: 05-26-2020 End: 05-26-2020 Office Visit 05/26/2020 Office Visit Primary Care Margarita Maxwell MD [address] [place] [address] [phone] [facility] Start: 12-16-2019 End: 12-16-2019 Office Visit 12/16/2019 Office Visit Family Medicine Kash Grier MD [address] [place] [address] [phone] Kash Grier MD [facility] Start: 12-08-2019 End: 12-08-2019 Office Visit 12/08/2019 Office Visit Primary Care Patria Quiñones CPNP [address] [place] [address] [phone] [facility] Start: 11-23-2019 End: 11-23-2019 Office Visit 11/23/2019 Office Visit Orthopedic Surgery Liu Jackson MD [address] [address] [phone] [facility] Start: 11-10-2019 End: 11-10-2019 Hospital Encounter [facility] Comment on above: KNEE ARTHROSCOPY WITH PARTIAL MEDICAL ME NISECTOMY Start: 11-06-2019 End: 11-06-2019 Appointment 11/06/2019 Appointment Pre-Admission Testing [facility] Start: 11-06-2019 [facility] Start: 11-06-2019 Creatinine monitoring Creatinine monitoring [place], [place] Start: 11-06-2019 Potassium monitoring Potassium [place] Start: 11-03-2019 Influenza vaccination Flu vaccine (#1) [place] Start: 11-02-2019 End: 11-02-2019 Appointment 11/02/2019 Appointment Pre-Admission Testing [facility] Start: 10-31-2019 DTaP/Tdap/Td vaccine (1 - Tdap) DTaP/Tdap/Td vaccine (1 - Tdap) [place] Comment on above: Postponed from 1984 (Patient Refus ed) Start: 10-31-2019 HIV screen HIV screen [place] Comment on above: Postponed from 1980 (Patient Refus ed) Start: 10-31-2019 HIV screening HIV screen [place] Comment on above: Postponed from 1980 (Patient Refus ed) Start: 10-31-2019 Pneumococcal 0-64 years Vaccine (1 of 1 - PPSV23) Pneumococcal 0-64 years Vaccine (1 of 1 - PPSV23) [place] Comment on above: Postponed from 07/09/1971 (Patient Refus ed) Start: 10-06-2019 End: 10-06-2019 Office Visit 10/06/2019 Office Visit Primary Care Patria Quiñoens CPNP [address] [place] [address] [phone] [facility] Start: 09-29-2019 End: 09-29-2019 Office Visit 09/29/2019 Office Visit Family Medicine Patria Quiñones CPNP [address] [place] [address] [phone] Kash Be Start: 05-02-2019 Shingles Vaccine (1 of 2) Shingles Vaccine (1 of 2) [place] Comment on above: Postponed from 07/09/2015 (Patient Refus ed) Start: 01-15-2019 End: 01-15-2019 Office Visit 01/15/2019 Office Visit Primary Care Margarita Maxwell MD [address] [place] [address] [phone] [facility] Start: 12-15-2018 End: 12-15-2018 Office Visit 12/15/2018 Office Visit Family Medicine Kash Grier MD [address] [place], [place] [id number] [facility] Start: 11-02-2018 Influenza vaccination Flu vaccine (#1) [place] Start: 07-09-2015 Administration of varicella zoster vaccine Zoster (Shingles) Vaccine (1 of 2) [facility] Start: 07-09-2015 Colon cancer screen colonoscopy Colon cancer screen colonoscopy [place] Start: 07-09-2015 Screening for malignant neoplasm of colon Colon cancer screen colonoscopy [place] Start: 07-09-2015 Shingles Vaccine (1 of 2) Shingles Vaccine (1 of 2) [place] Start: 07-09-2015 SHINGRIX VACCINE (1 of 2) SHINGRIX VACCINE (1 of 2) [facility] Start: 07-09-2015 Zoster Vaccines (1 of 2) Zoster Vaccines (1 of 2) [facility] Start: 2010 COLOGUARD (FIT-DNA) COLOGUARD (FIT-DNA) [facility] Start: 2010 Colonoscopy COLONOSCOPY [facility] Start: 2010 COLORECTAL CANCER SCREENING COLORECTAL CANCER SCREENING [facility] Start: [address] COLONOGRAPHY [facility] Start: 2010 DIABETES SCREEN DIABETES SCREEN [facility] Start: 2010 FECAL OCCULT BLOOD FECAL OCCULT BLOOD [facility] Start: 2010 SIGMOIDOSCOPY SIGMOIDOSCOPY [facility] Start: 2005 Diabetes screen Diabetes screen [place], [place] Start: 2005 Lipid screen [place]id [place] Start: 2000 LIPID SCREEN LIPID SCREEN [facility] Start: 07-09-1987 DTaP/Tdap/Td Vaccines (1 - Tdap) DTaP/Tdap/Td Vaccines (1 - Tdap) [facility] Start: 1984 DTaP,Tdap and Td Vaccines (1 - Tdap) DTaP,Tdap and Td Vaccines (1 - Tdap) [facility] Start: 1984 DTaP/Tdap/Td vaccine (1 - Tdap) DTaP/Tdap/Td vaccine (1 - Tdap) [place] Start: 1984 Hepatitis B Vaccines (1 of 3 - 19+ 3-dose series) Hepatitis B Vaccines (1 of 3 - 19+ 3-dose series) [facility] Start: 1984 Pneumococcal vaccination Pneumococcal Vaccine (1 of 2 - PCV) [facility] Start: 1984 Urine microalbumin profile DTAP,TDAP,TD (1 - Tdap) [facility] Start: 07-09-1983 Adult BMI Follow Up Plan Adult BMI Follow Up Plan [facility] Start: 07-09-1983 Diabetes mellitus screening Diabetes Screening [facility] Start: 07-09-1983 HEPATITIS C SCREENING HEPATITIS C SCREENING [facility] Start: 07-09-1983 Hepatitis C screening Hepatitis C Screening [facility] Start: 07-09-1983 HIV SCREENING HIV SCREENING [facility] Start: 1980 HIV screening HIV screen [place] Start: 07-09-1971 Pneumococcal 0-64 years Vaccine (1 of 1 - PPSV23) Pneumococcal 0-64 years Vaccine (1 of 1 - PPSV23) [place] Start: 07-09-1971 Pneumococcal Vaccine: Pediatrics (0 to 5 Years) and At-Risk Patients (6 to 64 Years) (1 of 2 - PCV) Pneumococcal Vaccine: Pediatrics (0 to 5 Years) and At-Risk Patients (6 to 64 Years) (1 of 2 - PCV) [facility] Start: 1970 COVID-19 VACCINE (1) COVID-19 VACCINE (1) [facility] Start: 1966 MMR Vaccines (1 of 1 - Standard series) MMR Vaccines (1 of 1 - Standard series) [facility] Start: 1965 Annual wellness visit Welcome to Medicare Visit [facility] Start: 1965 Creatinine monitoring Creatinine monitoring [facility] Start: 1965 HIV screening HIV Screening [facility] Start: 1965 Lipid panel Lipid Panel [facility] Start: 1965 Potassium monitoring Potassium monitoring [facility] Start: 1965 Screening for malignant neoplasm of colon [facility] Start: 1965 Statin Use: Cardiovascular Statin Use: Cardiovascular [facility] Start: 1965 Tobacco Counseling Tobacco Counseling [facility] Start: 1965 Yearly Adult Physical Yearly Adult Physical [facility] End: 07-03-2024 Bacteria identified in Urine by Culture Urine Culture Microbiology Routine Benign prostatic hyperplasia with urinary obstruction 1 Occurrences starting 07/04/2023 until 07/03/2024 [facility] Comment on above: 1 Occurrences starting 07/04/2023 until 07/03/2024 Cardiac Catheterizat ion - Onbase Scan Cardiac Catheterization - Onbase Scan Cardiac Cath Routine Shortness of breath Ordered: 01/06/2024 [facility] Service Area Work Phone: Comment on above: Ordered: 01/06/2024 End: 11-06-2019 COVID-19 COVID-19 Lab Routine One Time for 1 Occurrences starting 11/06/2019 until 11/06/2019 [facility] Comment on above: One Time for 1 Occurrences starting 06/2019 until 11/06/2019 End: 07-06-2022 Ct cervical spine w/o contrast material CT CERVICAL SPINE WO IVCON Radiology Routine Spinal stenosis of cervical region 1 Occurrences starting 06/06/2021 until 07/06/2022 [facility] Work Phone: Comment on above: 1 Occurrences starting 06/06/2021 until 07/06/2022 Oxygen therapy [[facility] Data Set] Initiate Oxygen Therapy Protocol Respiratory Care Routine Daily until discontinued starting 11/10/2019 [facility] Comment on above: Daily until discontinued starting 2019 Patient referral [facility] Work Phone: Phase I & II - meter ed glucose Phase I & II - metered glucose Point of Care Testing Routine As Needed until discontinued starting 11/10/2019 [facility], [place] Comment on above: As Needed until discontinued starting End: 07-03-2024 Prostatic specific antigen, diagnostic Prostatic specific antigen, diagnostic Lab Routine Benign prostatic hyperplasia with urinary obstruction 1 Occurrences starting 07/04/2023 until 07/03/2024 [facility] Work Phone: Comment on above: 1 Occurrences starting 07/04/2023 until 07/03/2024 End: 07-06-2022 Radex spine cervical 4 or 5 views XR CERV OTHER 4V AP/LAT/FLX/EXT Radiology Routine Cervical spondylosis with myelopathy 1 Occurrences starting 06/06/2021 until 07/06/2022 [facility] Work Phone: Comment on above: 1 Occurrences starting 06/06/2021 until 07/06/2022 XR Hip - left 2 Views [facility] XR Lumbar spine Views [facility] Immunizations Immunization Date Immunization Notes Care Provider [facility] 11-04-2019 influenza, seasonal, injectable Colten Parra Work Phone: [address] Work Phone: 11-04-2019 influenza virus vaccine, unspecified formulation Guicho Mulligan MD Work Phone: [facility] Work Phone: 11-03-2019 influenza, seasonal, injectable Hunter Julienne CONVEYOR LINE BATTERY CHARGER-CORRESPONDENCE DICTATOR Work Phone: [facility] 11-03-2019 influenza virus vaccine, unspecified formulation Hunter Julienne CONVEYOR LINE BATTERY CHARGER-CORRESPONDENCE DICTATOR Work Phone: [facility] 01-21-2019 influenza virus vaccine, unspecified formulation [facility] [address] [facility] 01-21-2019 influenza, injectabl e, quadrivalent, contains preservative Shivaprasad Gurjit [facility], [place] 01-02-2019 influenza, injectabl e, quadrivalent, contains preservative Colten G Furlong Work Phone: [facility] 600 DO Work Phone: 12-02-2016 influenza, injectabl e, quadrivalent, preservative free [facility] [place] [place] Payers Date Payer Category Payer Medicare (Managed Care) [facility] [id number] 2024 Medicare HMO [employer]M MEDICARE 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 2021 Blue Cross Blue Shie ld Managed Care ANTHEM [facility] [id number] 2021 Unknown ANTHEM BLUE ACCE SS PPO [id number] 2021-Present [phone] [id number] [place] [address] PPO [id number] [id number] 2018 Unknown BCBS [place] - [place] P PO xxxxxxxxxxxx 2018-Present [id number] [place] [address] xxxxxxxxxxxx [id number] [id number] 2018 Unknown BC[place] P PO [id number] 2018-Present [id number] [place] [address] [id number] [id number] 2015 Blue Cross Jonnathan Gutierreze ld Managed Care - PPO ANTHEM [id number] [id number] 2015 Unknown [id number] 1.2.840.562879.1.13.239. 2.7.3.822937.315 2015 Unknown 1965 Unknown [id number] 2.16.840.1.542359.3.579. 2.175 1965 Unknown [id number] 2.16.840.1.702146.3.579. 2.175 1965 Unknown [id number] 2.16.840.1.602255.3.579. 2.175 1965 Unknown [id number] 2.16.840.1.096310.3.579. 2.176 1965 Unknown [id number] 2.16.840.1.998107.3.579. 2.176 1965 Unknown [id number] 2.16.840.1.846228.3.579. 2.176 1965 Unknown [id number] 2.16.840.1.336201.3.579. 2.176 1965 Unknown [id number] 2.16.840.1.127758.3.579. 2.176 1965 Unknown [id number] 2.16.840.1.644571.3.579. 2.176 1965 Unknown [id number] 2.16.840.1.150474.3.579. 2.176 1965 Unknown [id number] 2.16.840.1.288783.3.579. 2.176 1965 Unknown [id number] 2.16.840.1.762399.3.579. 2.176 1965 Unknown [id number] 2.16.840.1.182772.3.579. 2.593 1965 Unknown [id number] 2.16.840.1.356207.3.579. 2.593 1965 Unknown [id number] 2.16.840.1.149305.3.579. 2.593 1965 Unknown [id number] 2.16.840.1.013867.3.579. 2.593 1965 Unknown [id number] 2.16.840.1.551913.3.579. 2.593 1965 Unknown [id number] 2.16.840.1.831975.3.579. 2.593 1965 Unknown [id number] 2.16.840.1.123692.3.579. 2.593 1965 Unknown [id number] 2.16.840.1.601745.3.579. 2. 1965 Unknown [id number] 2.16.840.1.687975.3.579. 2.593 1965 Unknown [id number] 2.16.840.1.973756.3.579. 2.59 1965 Unknown [id number] 2.16.840.1.212306.3.579. 2.593 1965 Unknown [id number] 2.16.840.1.801936.3.579. 2. 1965 Unknown [id number] 2.16.840.1.129454.3.579. 2.593 1965 Unknown [id number] 2.16.840.1.574277.3.579. 2.128 1965 Unknown [id number] 2.16.840.1.098479.3.579. 2.1285 1965 Unknown [id number] 2.16.840.1.040979.3.579. 2.1285 1965 Unknown [id number] 2.16.840.1.675934.3.579. 2.196 1965 Unknown [id number] 2.16.840.1.133633.3.579. 2.196 1965 Unknown [id number] 2.16.840.1.637857.3.579. 2. 1965 Unknown [id number] 2.16.840.1.625266.3.579. 2.1285 1965 Unknown [id number] 2.16.840.1.515284.3.579. 2.1285 1965 Unknown [id number] 2.16.840.1.321194.3.579. 2.1285 1965 Unknown [id number] 2.16.840.1.000192.3.579. 2.1285 1965 Unknown [id number] 2..840.1.908427.3.579. 2.1285 1965 Unknown [id number] 2.840.1.461520.3.579. 2.1285 1965 Unknown [id number] 2.840.1.767562.3.579. 2.1285 1965 Unknown [id number] 2.840.1.350769.3.579. 2.1285 1965 Unknown [id number] 2.840.1.496665.3.579. 2.1285 1965 Unknown [id number] 2.16.840.1.855443.3.579. 2.1285 1965 Unknown [id number] 2.840.1.263901.3.579. 2.1285 1965 Unknown [id number] 2.840.1.301542.3.579. 2.1285 1965 Unknown [id number] 2.840.1.079390.3.579. 2.1285 1959 Unknown [id number] 1959 Unknown [id number] Unknown [id number] 2.16.840.1.358927.3.579. 2.531 Unknown [id number] 2.16840.1.378069.3.579. 2.531 Unknown [id number] 2.16.840.1.617760.3.579. 2.531 Social History Date Type Detail Facility Start: 03-04-1978 End: 07-04-2023 Tobacco smoking status NHIS Current every day smoker [facility] Start: 12-08-2018 End: 04-14-2020 Cigarettes smoked current (pack per day) - Reported [facility] Comment on above: 1 ppd; Start: 12-08-2018 End: 04-14-2020 Alcohol intake Yes [facility] Start: 1965 [facility] [place] Start: 09-16-2019 End: 07-04-2023 Tobacco use and exposure Never used [place] Start: 09-16-2019 End: 11-18-2024 Alcohol intake Current drinker of alcohol (finding) [place] Start: 08-18-2023 End: 02-21-2024 Exposure to SARS-CoV-2 (event) Not sure [place] Start: 11-02-2019 Alcohol Comment very rare [place], [place] Start: 06-06-2021 Alcohol intake Ex-drinker (finding) [facility] Start: 1965 Sex Assigned At Male [facility] Start: 03-04-1978 History of tobacco use Cigarette Smo ker [facility] Start: 08-28-2023 Alcohol Comment very little [facility] Work Phone: Start: 12-11-2023 Gender identity Identifies as male gender (finding) [facility] Work Phone: Start: 12-11-2023 Sexual orientation Heterosexual (fin ding) [facility] Work Phone: Adolescent depressio n screening assessment 6 [facility] Start: 03-23-2022 Alcohol Comment rarely [facility] Start: 10-07-2014 Sex Male (finding) [facility] Goals Date Patient Goal Desired Activity /State Personal health goal Comment on above: Formatting of this n ote might be different from the original. Evaluation of progress towards goal: safe transition to home with support of pt's and resumption with outpatient PT. Clinical Notes 11-18-2020 to 11-18-2024 Assessment & Plan Note - Deborah Jeronimo MD - 11/18/2024 2:22 PM EDTAssessment & Plan Note - Deborah Jeronimo MD - 11/18/2024 2:22 PM EDTMichruss Jeronimo MD - 11/18/2024 2:15 PM EDT Note Date & Type Note Facility 11-18-2024 Evaluation + Plan note Associated Problem(s): Benign prostatic hyperplasia with urinary obstruction PSA was less than 1 less than 2 years ago that is reasonable. [facility] 11-18-2024 Miscellaneous Notes Associate d Problem(s): Benign prostatic hyperplasia with urinary obstruction PSA was less than 1 less than 2 years ago that is reasonable. Addended by: CHERY VICTORIA on: 11/18/2024 02:28 PM Modules accepted: Orders documented in this encounter [facility] 11-18-2024 History of Presen t illness Narrative Images from the original note were not included. [address] [place] [address] [facility] [address] Patient: Ashok Doss Date of : 1965 Encounter Date: 11/18/2024 [...] , EXTPOCUBAC , EXTPOCUTREP , EXTPOCUPH , EXTPOCULEE in the last 72 hours. Last BUN [...] Diagnosis Date Arthritis DVT (deep venous thrombosis) ([facility]) x2 Fractures Headache Hyperlipidemia Hypertension Myocardial infarction ([facility]) PONV (postoperative nausea and vomiting) Sleep apnea Past Surgical History: Procedure Laterality Date ANKLE SURGERY Left CARDIAC CATHETERIZATION 2020 stent CARDIAC CATHETERIZATION 01/09/2024 CARPAL TUNNEL RELEASE Right COLONOSCOPY N/A 12/07/2022 Performed by Jenae Samuels DO at [facility] CYSTOSCOPY WITH [facility] BLADDER SOLUTION N/A 08/21/2023 Performed by Deborah Jeronimo MD at [facility] FRACTURE SURGERY Right knee, tibia INJECTION HIP & CPT 11468 Left 01/22/2024 Performed by Zainab Marshall DO at [facility] KNEE SURGERY Bilateral meniscectomy-bilateral LUMBAR LAMINECTOMY [...] nebulizer solution Inhale 3 mL (2.5 mg total) by [...] 130.2 kg (287 lb) BMI 36.85 kg/m Nontoxic no apparent distress. Respirations nonlabored. Skin is dry. Awake alert oriented x3. Assessment and Plan: Ashok was seen today [...] or hydronephrosis. Plan: Renal bladder ultrasound. Cystoscopy [facility] bladder solution. CMG/flow Urine for culture. Current Assessment & Plan PSA was less than 1 less than 2 years ago that is reasonable. Relevant Medications lisinopriL (PRINIVIL,ZESTRIL) 20 mg tablet Follow-up: Check postvoid residual today if less than 150 cc patient can go will see him back in October Deborah Jeronimo MD Urology serves as the continuing focal [...] for your understanding. documented in this encounter [facility] 11-18-2024 Note Addended by: CHERY VICTORIA on: 11/18/2024 02:28 PM Modules accepted: Orders [facility] 11-09-2024 Miscellaneous Notes Formattin g of this note might be different from the original. Pt is now using [facility] instead of [facility]. documented in this encounter [facility] 11-09-2024 Telephone encount er Note Pt is now using [facility] instead of [facility]. [facility] 11-03-2024 Miscellaneous Notes Formattin g of this note might be different from the original. Pt is asking for the Rx to be sent local. Pt was notified. documented in this encounter [facility] 11-03-2024 Telephone encount er Note Pt is asking for the Rx to be sent local. [facility] 11-03-2024 Telephone encount er Note Pt was notified. [facility] 10-06-2024 Evaluation note Diagnosis Onset Date Resolution Left lumbar radiculopathy acute October 06, 2024 10:03am Right leg pain acute October 10:03am [facility] Work Phone: 1([phone]) 609-683806-20-2025 History of Present illness Narrative* Rachel Stacy MD - 08/21/2024 9:45 AM EDT Images from the original note were not included. Chief Complaint: Chief Complaint Patient presents with Follow-up 6 month follow up for Shortness of breath Most recently seen in February 2024. Patient has atherosclerotic tunica-biloxi vessel coronary artery disease and multiple cardiac [...] History so Far : 1. Atherosclerosis of tunica-biloxi coronary artery of tunica-bil[place]i heart PCI November 2020-codominant system diffuse coronary [...] finasteride (PROSCAR) 5 mg, Daily RT HYDROcodone-acetaminophen (Bryant) 5-325 mg tablet 1 tablet, 2 times [...] visit with me Assessment: 1. Atherosclerosis of tunica-biloxi coronary artery of tunica-biloxi heart without angina pectoris 2. Medication course [...] and lipid profile prior to next visit I,Vanessa Palacios LPN am scribing for, and in the presence of Dr. Rachel Stacy MD, [facility]. I, Dr. Rachel Stacy MD, FAC, personally performed the services described in the documentation as scribed by Vanessa Palacios LPN in my presence, and confirm it is both accurate and complete. [facility] Work Phone: 1(691) 483-266206-20-2025 Instructions* Patient Instructions* Vanessa Ambriz LPN - [...] sent through Care Everywhere. * Mediterranean Diet (Trinidadian) documented in [facility] encounterC[facility] Work Phone: 1(950) 714-396703-17-2025 Miscellaneous Notes* Telephone Encounter - Jaqueline Warren CMA - 05/18/2024 4:55 PM EDT [facility] you [facility] encounter[facility]03-[facility]25 Telephone encounter Note* Telephone Encounter - Jaqueline Warren CMA - 05/18/2024 4:55 PM EDT [facility]02-20-2025 Miscellaneous Notes* Telephone Encounter - Esperanza Candelaria CMA - 04/23/2024 8:47 AM EST I received fax refill request from [facility] for pts Flomax, I called pt to see if this is a refill he needs at this time. documented in this encounterUpper [facility] Center02-20-2025 Telephone encounter Note* Telephone Encounter - Esperanza Candelaria CMA - 04/23/2024 8:47 AM EST I received fax refill request from [facility] for pts Flomax, I called pt to see if this is a refill he needs at this time. [facility]01-15-2025 History of Present illness Narrative* Chery Victoria LPN - 03/18/2024 1:25 PM EST This nurse changed the Pt.s pharmacy to new pharmacy so that his Finasteride could be sent into [facility] pharmacy. Christie, could you please resend Finasteride for the Pt. Into the [facility] please? Thank you, Chery * YAO Kenney - 03/18/2024 1:25 PM EST Rx sent to [facility] 03/19/24 0845 documented in this encounterUpper Valley Medical Center12-20-2024 History of Present illness Narrative* Rachel Stacy [...] History so Far : 1. Atherosclerosis of tunica-biloxi coronary artery of tun[place]-bil[place]i heart PCI November 2020-codominant system diffuse coronary [...] furosemide (LASIX) 20 mg, oral, Daily HYDROcodone-acetaminophen (Bryant) 5-325 mg tablet 1 tablet, 2 times [...] 9. Hypertension, unspecified type 10. Atherosclerosis of tunica-biloxi coronary artery of tunica-biloxi heart without angina pectoris 11. Other hyperlipidemia [...] up : 6 months Provider Attestation - Ruiba Brannon LPN Scribe documentation All medical record entries made by the Scribe were at my direction and personally dictated by me. Ihave reviewed the chart and agree that the record accurately reflects my personal performance of the history, physical exam, discussion and plan. documented in this encounterC[facility] Work Phone: 1([phone]) 713-195512-20-2024 Instructions* Patient Instructions* Rubia Verduzco LPN - [...] Provided instructions on exercise. documented in [facility] encounterC[facility] Work Phone: 1([phone] 261-660112-04-2024 Evaluation + Plan note* Assessment & Plan Note - Deborah Jeronimo MD - 02/05/2024 2:55 PM ESTAssociated Problem(s): Benign prostatic hyperplasia with urinary obstruction Decision then may today to make his medications long-term. Refilled. [facility]12-04-2024 Miscellaneous Notes* Assessment & Plan Note - Deborah Jeronimo MD - 02/05/2024 2:55 PM ESTAssociated Problem(s): Benign prostatic hyperplasia with urinary obstruction Decision then may today to make his medications long-term. Refilled. documented in this encounterUpper Valley Medical Center12-04-2024 History of Present illness Narrative* Deborah Jeronimo MD - 02/05/2024 2:15 PM EST Images from the original note were not included. [address] [place] [id number] Patient: Ashok Doss Date of : 1965 [...] Diagnosis Date Arthritis DVT (deep venous thrombosis) ([facility] x2 Fractures Headache Hyperlipidemia Hypertension Myocardial infarction ([facility]) PONV (postoperative nausea and vomiting) Sleep apnea Past Surgical History: Procedure Laterality Date ANKLE SURGERY Left CARDIAC CATHETERIZATION 2020 stent CARDIAC CATHETERIZATION 01/09/2024 CARPAL TUNNEL RELEASE Right COLONOSCOPY N/A 12/07/2022 Performed by Jenae Samuels DO at [facility] CYSTOSCOPY WITH [facility] BLADDER SOLUTION N/A 08/21/2023 Performed by Deborah Jeronimo MD at [facility] FRACTURE SURGERY Right knee, tibia INJECTION HIP & CPT 55453 Left 01/22/2024 Performed by Zainab Marshall DO at [facility] KNEE SURGERY Bilateral meniscectomy-bilateral LUMBAR LAMINECTOMY RADIO [...] or hydronephrosis. Plan: Renal bladder ultrasound. Cystoscopy [facility] bladder solution. CMG/flow Urine forculture. Current Assessment [...] you for your understanding. documented in this encounterMadison HealthFunnelFire Helen [facility] Children'S [id number] Miscellaneous Notes* Perioperative Nursing Note - Stephanie Robin RN - 01/21/2024 2:40 PM EST Preoperative Education Checklist- General Surgery date: 01/22/24 Surgery time: 1130 Arrival time: 1030 1. Bring a photo ID and your insurance card with you the day of surgery. You will check in at the main lobby at the registration desk near the [facility]. 2. If you have a Living Will/Durable Power of Animal Pathology Teacher for Health Care that is not on file here, please bring a copy the day of surgery. 3. Please shower/tub bath the night before surgery or morning of. 4. NO powder, lotion, perfume/cologne, aftershave, make-up, nail swedish, deodorant, or hair products after you have [...] prescribing doctor for instructions documented in this encounterUpper [facility] Center11-19-2024 Nurse Note* Perioperative Nursing Note - Stephanie Robin RN - 01/21/2024 2:40 PM EST Preoperative Education Checklist- General Surgery date: 01/22/24 Surgery time: 1130 Arrival time: 1030 1. Bring a photo ID and your insurance card with you the day of surgery. You will check in at the main lobby at the registration desk near the [facility]. 2. If you have a Living Will/Durable Power of Animal Pathology Teacher for Health Care that is not on file here, please bring a copy the day of surgery. 3. Please shower/tub bath the night before surgery or morning of. 4. NO powder, lotion, perfume/cologne, aftershave, make-up, nail swedish, deodorant, or hair products after you have [...] capsule Check with prescribing doctor for instructions [facility]11-19-2024 Miscellaneous Notes* Telephone Encounter - Colten Parra DO - 01/21/2024 12:46 AM EST Rx sent in. Due for CV recheck. Usually sees Hunter * Telephone Encounter - Berna Díaz CMA - 01/21/2024 12:46 AM EST I called pt and he is seeing a Line Prep Cook and would like to wait on making apt. documented in this encounterUpper Valley Medical Center11-19-2024 Telephone encounter Note* Telephone Encounter - Colten Parra DO - 01/21/2024 12:46 AM EST Rx sent in. Due for CV recheck. Usually sees [facility]11-19-2024 Telephone encounter Note* Telephone Encounter - Berna Díaz CMA - 01/21/2024 12:46 AM EST I called pt and he is seeing a Line Prep Cook and would like to wait on making apt. [facility]11-05-2024 Miscellaneous Notes* Telephone Encounter - Magda North - 01/07/2024 2:59 PM EST Faxed the request from [employer] requesting certified copies of medial records andradiology images to [facility] Med/Rec Release fax # [phone]. Scanned copy into Media. documented in this encounterUpper Valley Medical Center11-05-2024 Telephone encounter Note* Telephone Encounter - Magda North - 01/07/2024 2:59 PM EST Faxed the request from [employer] requesting certified copies of medial records andradiology images to [facility] Med/Rec Release fax # [phone]. Scanned copy into Media. [facility] [id number] History of Present illness Narrative* Rachel Stacy [...] History so Far : 1. Atherosclerosis of tunica-biloxi coronary artery of tunica-biloxi heart PCI November 2020-codominant system diffuse coronary [...] finasteride (PROSCAR) 5 mg, Daily RT HYDROcodone-acetaminophen (Bryant) 5-325 mg tablet 1 tablet, 2 times [...] 04/02/2023 Assessment: 1. Coronary artery disease involving tunica-biloxi coronary artery of tunica-biloxi heart with unstable angina pectoris 2. Encounter [...] discussed included, but were not limited to MS, stroke, , peripheral vascular compromise, allergic reaction [...] Scribe Attestation By signing my name below, Vivian Fleming LPN , Shyannibvaldez attest that this documentation has been prepared under the direction and in the presence of Rachel Stacy MD. All medical record entries made by the Scribe were at my direction and personally dictated by me. Ihave reviewed the chart and agree that the record accurately reflects my personal performance of the history, physical exam, discussion and plan. documented in this encounterUnMetro[facility] Work Phone: 1(593) 431-947711-04-2024 Instructions* Patient Instructions* Vivian Lopez LPN - [...] sent through Care Everywhere. * DASH Diet (Trinidadian) documented in this encounterUnMetroHealth [facility] Work Phone: 1([phone]) 621-313410-11-2024 History of Present illness Narrative* Guicho Mulligan MD - 12/13/2023 11:30 AM EDT CARDIOLOGY CONSULTATION NOTE Patient: Ashok Doss Date of : 1965 Date: 12/13/2023 Reason for Visit: Known coronary artery disease, now with unstable angina. IMPRESSION: Palpitations Chest pain Dyspnea on exertion Cough, nonproductive Edema Recent respiratory tract infection Coronary artery disease history of right coronary stent angioplasty 2020 History of prior MS 2020 Normal LV systolic function, 60 to [...] testing is back. Exercise dietary program. Hydration. Offerial portal use was encouraged. We will plan [...] (PROSCAR) 5 mg, oral, Daily RT HYDROcodone-acetaminophen (Bryant) 5-325 mg tablet 1 tablet, oral, 2 times daily PRN lisinopriL-hydrochlorothiazide 20-12.5 mg tablet 1 tablet, oral, Daily metoprolol tartrate (LOPRESSOR) 25 mg, oral, 2 times daily after meals tamsulosin (FLOMAX) 0.4 mg, oral, Daily PAST MEDICAL HISTORY: As per impression above. No other significant past medical or surgical history appreciated. SOCIAL HISTORY: . 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 Smokes 1 pack of cigarettes per day. [id number] smoking history. Denies alcohol or illicit drug [...] Shortness of breath Cough Guicho Mulligan MD, FACC [facility] / Cardiology Of Note: Media[employer]rape voice recognition dictation software was utilized partially in the preparation of this note,therefore, inaccuracies in spelling, word choice and punctuation may have occurred which were not recognized the time of signing. Patient was seen and examined with total time of visit including chart preparation, rooming, and chart completion exceeding 40 minutes. ---- documented in this [facility] Work Phone: 1(818) 784-749210-11-2024 Instructions* Patient Instructions* Ernie Olivares LPN - [...] We have a pharmacy here in the [facility]. They can fill all prescriptions, not just cardiac medications. Prescriptions from other pharmacies can easily be transferred to the pharmacy by the pharmacist on site. pharmacies offer FREE HOME DELIVERY on medications to anywherein [place]. They can sync your medications. Typically prescriptions can be ready in 10 - 15 minutes. If pharmacy is unable to fill your prescription or if cost is more than your paying now the Pharmacist can easily transfer back to your Pharmacy of choice. Pharmacy phone # [phone]. Scribe Attestation By signing my name below, I, Ly ARNOLD , Lawanda attest that this documentation has been prepared under the direction and in the presence of Guicho Dennis MD. documented in this [facility] Work Phone: [phone]) 682-813710-04-2024 History of Present illness Narrative* Jenae Samuels, - 12/06/2023 9:30 AM EDT IM PROGRESS NOTE Patient - Ashok Doss Age - 58 y.o. - 1965 ASSESSMENT & PLAN 1. Acute bronchitis, unspecified [...] Onset after return from a vacation in [place]. Each episode lasts Constant and continues. The [...] Testing No results found. Jenae Samuels DO., [facility] Office: [phone] documented in this encounterUpper Valley Medical Center07-23-2024 Miscellaneous Notes* Telephone Encounter - Elisabeththeresa Patricia - 09/24/2023 8:51 AM EDT Called about disability paper work, he is going to check and see if we have to fill it out, ortho got one too. Will call back if we need to fill out and make appointment * Telephone Encounter - Elisabeththeresa Patricia - 09/24/2023 8:51 AM EDT Ortho is doing paper work documented in this encounterUpper Valley Medical Center07-23-2024 Telephone encounter Note* Telephone Encounter - Elisabeththeresa Patricia - 09/24/2023 8:51 AM EDT Called about disability paper work, he is going to check and see if we have to fill it out, ortho got one too. Will call back if we need to fill out and make appointment [facility]07-23-2024 Telephone encounter Note* Telephone Encounter - Elisabeth Patricia - 09/24/2023 8:51 AM EDT Ortho is doing paper work [facility]2024 Evaluation + Plan note* Assessment & Plan Note - Deborah Jeronimo MD - 09/09/2023 12:49 PM EDTAssociated Problem(s): Benign prostatic hyperplasia with urinary obstruction Patient may titrate up on his tamsulosin to 2 tablets if he tolerates with no great effect with 1. Per patient request just see how the medicine works. Will see him back in about 5 months. Sooner p.r.n.. [facility]2024 Miscellaneous Notes* Assessment & Plan Note - Deborah Jeronimo MD - 09/09/2023 12:49 PM EDTAssociated Problem(s): Benign prostatic hyperplasia with urinary obstruction Patient may titrate up on his tamsulosin to 2 tablets if he tolerates with no great effect with 1. Per patient request just see how the medicine works. Will see him back in about 5 months. Sooner p.r.n.. documented in this encounterUpper Valley Medical Center2024 History of Present illness Narrative* Deborah Jeronimo MD - 09/09/2023 12:30 PM EDT Images from the original note were not included. [address] [place] [address] [facility] [id number] Patient: Ashok Doss Date of : 1965 [...] Diagnosis Date Arthritis DVT (deep venous thrombosis) ([facility]) x2 Fractures Headache Hyperlipidemia Hypertension Myocardial infarction ([facility]) PONV (postoperative nausea and vomiting) Sleep apnea Past Surgical History: Procedure Laterality Date ANKLE SURGERY Left CARDIAC CATHETERIZATION stent CARPAL TUNNEL RELEASE Right COLONOSCOPY N/A 12/07/2022 Performed by Jenae Samuels DO at [facility] CYSTOSCOPY WITH [facility] BLADDER SOLUTION N/A 08/21/2023 Performed by Deborah Jeronimo MD at [facility] FRACTURE SURGERY Right knee, tibia KNEE [...] or hydronephrosis. Plan: Renal bladder ultrasound. Cystoscopy [facility] bladder solution. CMG/flow Urine forculture. Current Assessment [...] you for your understanding. documented in this encounterUpper Valley Medical Center06-26-2024 History of Present illness Narrative* Leonid Figueredo [...] mouth once daily., Disp: , Rfl: HYDROcodone-acetaminophen (Bryant) 5-325 mg tablet, Take 1 tablet by mouth 2 times a day as needed.,Disp: , Rfl: lisinopriL-hydrochlorothiazide 20-12.5 mg tablet, TAKE 1 TABLET BY MOUTH EVERY DAY, Disp: 90 tablet, Rfl: 3 metoprolol tartrate (Lopressor) 25 mg tablet, Take 1 tablet (25 mg) by mouth after breakfast and after the evening meal., Disp: , Rfl: Assessment/Plan 1. Atherosclerosis of tunica-biloxi coronary artery of tunica-biloxi heart without angina pectoris No symptoms since [...] Scribe Attestation By signing my name below, IMaggie Frank ARNOLD , Scribe attest that this documentation has [...] exam, discussion and plan. documented in this encounterC[facility] Work Phone: 1([phone]) [phone] Instructions* Patient Instructions* Susan Vazquez CMA - [...] time of your visit. documented in this encounterC[facility] Work Phone: [phone]) 641-185506-19-2024 Miscellaneous Notes* Telephone Encounter - Deborah Jeronimo MD - 08/21/2023 9:00 AM EDT Radha: Have the patient follow up in the [place] office in the next few weeks or so Azalea: Please find time for the patient have a cystoscopy bipolar TURP. General anesthesia. [facility]. Overnight stay. Patient does have a trip overseas to [place] November 10 or so. Pleasetry to get this procedure done at least 4 weeks prior. documented in this encounterUpper Valley Medical Center06-19-2024 Telephone encounter Note* Telephone Encounter - Deborah Jeronimo MD - 08/21/2023 9:00 AM EDT Radha: Have the patient follow up in the [place] office in the next few weeks or so Azalea: Please find time for the patient have a cystoscopy bipolar TURP. General anesthesia. [facility]. Overnight stay. Patient does have a trip overseas to [place] November 10 or so. Pleasetry to get this procedure done at least 4 weeks prior. [facility] Nurse Note* Perioperative Nursing Note - Ivonne Penaloza RN - 08/20/2023 10:10 AM EDT Preoperative Education Checklist- General Surgery date: 08/21/23 Surgery time: 830a Arrival time: 730a 1. Bring a photo ID and your insurance card with you the day of surgery. You will check in at the main lobby of the [facility]- registration desk is straight ahead as soon as you walk in. Tell them you are here for surgery. 2. If you have a Living Will/Durable Power of Animal Pathology Teacher for Health Care that is not on [...] after you have bathed. 5. NO nail swedish/acrylic on at least one finger. If you are having a hand, wrist or foot surgery then all nail swedish and artificial/acrylic nails must be removed from [...] please call the Preadmission Testing office at [phone], Mon.-Fri. 7 a.m.-3 p.m. Leave a voicemail [...] Stop taking 0 days prior to procedure [facility]06-18-2024 Miscellaneous Notes* Perioperative Nursing Note - Ivonne Penaloza RN - 08/20/2023 10:10 AM EDT Preoperative Education Checklist- General Surgery date: 08/21/23 Surgery time: 830a Arrival time: 730a 1. Bring a photo ID and your insurance card with you the day of surgery. You will check in at the main lobby of the [facility]- registration desk is straight ahead as soon as you walk in. Tell them you are here for surgery. 2. If you have a Living Will/Durable Power of Animal Pathology Teacher for Health Care that is not on [...] after you have bathed. 5. NO nail swedish/acrylic on at least one finger. If you are having a hand, wrist or foot surgery then all nail swedish and artificial/acrylic nails must be removed from [...] please call the [facility] office at [phone], Mon.-Fri. 7 a.m.-3 p.m. Leave a voicemail [...] days prior to procedure [facility] Miscellaneous Notes* Telephone Encounter - Shlomo Huber [...] EDT Patient was notified documented in this [facility]06-11-2024 Telephone encounter Note* Telephone Encounter - Shlomo Huber CMA - 08/13/2023 10:19 AM EDT Patient called in stating he had to cancel his cysto because they stated he would need to pay 650 up front and he can't afford that He said he has several other test is that enough be able to treat him [facility] Telephone encounter Note* Telephone Encounter - Deborah Jeronimo MD - 08/13/2023 10:19 AM EDT Because the patient has already failed medical management he needs the cystoscopy in order to evaluate the anatomy to then really determine what we can do to help him. So the cystoscopy is integral to the development of his treatment plan. [facility] Telephone encounter Note* Telephone Encounter - Shlomo Huber CMA - 08/13/2023 10:19 AM EDT Patient was notified [facility] History of Present illness Narrative* Magda Castle APRN-SUPERVISOR DRAWING - 08/05/2023 3:00 PM EDT Subjective Patient [...] to dermatology for further evaluation and management Magda Castle, [facility] 08/05/23 165 Magda Castle, [employer]-SUPERVISOR DRAWING 08/05/23 1658 documented in this [facility] History of Present illness Narrative* Vanesa Ramos [...] Physician: Chema Garcia M.D. documented in this [facility]24 Miscellaneous Notes* Telephone Encounter - Deborah Jeronimo MD - 07/04/2023 1:28 PM EDT Cystoscopy local [facility] bladder solution. [place]. Diagnosis lower urinary tract symptoms. documented in [facility] Telephone encounter Note* Telephone Encounter - Deborah Jeronimo MD - 07/04/2023 1:28 PM EDT Cystoscopy local [facility] bladder solution. [place]. Diagnosis lower urinary tract symptoms. [facility] [id number] History of Present illness Narrative* Deborah Jeronimo MD - 07/04/2023 1:00 PM EDT Images from the original note were not included. [address] [facility] [id number] Patient: Ashok Doss Date of : 1965 [...] History: Diagnosis Date DVT (deep venous thrombosis) ([facility]) x2 Headache Hyperlipidemia Myocardial infarction ([facility]) Past Surgical History: Procedure Laterality Date ANKLE SURGERY Left CARDIAC CATHETERIZATION CARPAL TUNNEL RELEASE Right COLONOSCOPY N/A 12/07/2022 Performed by eJnae Samuels DO at [facility] [facility] FRACTURE SURGERY Right knee, tibia KNEE [...] or hydronephrosis. Plan: Renal bladder ultrasound. Cystoscopy [facility] bladder solution. CMG/flow Urine forculture. Relevant Orders [...] you for your understanding. documented in this encounterUpper [facility]02-28-[facility]24 History of Present illness Narrative* Hunter Robins, CONVEYOR LINE BATTERY CHARGER-CORRESPONDENCE DICTATOR - 05/01/2023 10:30 AM EST Images from the original note were not included. [address] [place] [address] Patient: Ashok Doss Date of : 1965 [...] was normal. Patient will like to see [place] [facility]. Patient also has a new skin [...] History: Diagnosis Date DVT (deep venous thrombosis) ([facility]) x2 Headache Hyperlipidemia Myocardial infarction ([facility]) Past Surgical History: Procedure Laterality Date ANKLE SURGERY Left CARDIAC CATHETERIZATION CARPAL TUNNEL RELEASE Right COLONOSCOPY N/A 12/07/2022 Performed by Jenae Samuels DO at [facility] FRACTURE SURGERY Right knee, tibia KNEE [...] BMI 38.49 kg/m Physical Exam Vitals reviewed. 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 Constitutional: Appearance: Normal [...] YAO KEEN APRN-CNP 05/02/232050 documented in this [facility]Upper [facility]-29-2024 Miscellaneous Notes* Telephone Encounter - YAO Keen - 04/01/2023 12:18 AM EST Due for either his well visit or CV - please set up documented in this [facility]01-29-20[facility] Telephone encounter Note* Telephone Encounter - YAO Keen - 04/01/2023 12:18 AM EST Due for either his well visit or CV - please set up [facility]05-30-2023 NoteCONSULTATION CONSULTATION DATE: 07/31/2022 CHIEF COMPLAINT: [...] mg pills, two pills daily p.r.n. and Bryant 5 mg b.i.d. p.r.n. As part of providing excellent, safe, comprehensive care, the following was completed at our patient's visit: 1. A medication reconciliation and review to ensure accurate knowledge of current/active medications, including asking our patients to inform us about any fegw-mal-iuvvcsy medications or herbal remedies/nutritional supplements/alternative remedies. 2. [...] treatment options with their primary care provider.[id number] Note CONSULTATION CONSULTATION DATE: 06/14/2022 TO: Dr. [...] sooner if needed. We did refill his Bryant. He takes 5 mg pills, one pill b.i.d. He did report this medicine does improve his quality of life, level of function and sleep pattern. As part of providing excellent, safe, comprehensive care, the following was completed at our patient's visit: 1. A medication reconciliation and review to ensure accurate knowledge of current/active medications, including asking our patients to inform us about any nike-afi-apltbpk medications or herbal remedies/nutritional supplements/alternative remedies. 2. [...] treatment options with their primary care provider.[facility] [id number] NoteSubjective Patient ID: Ashok Doss is a 56 y.o. male who presents as a new patient referral from [facility] in [place] for acute deep right calf/soleal muscle vein [...] the past 36 hour(s)). No follow-ups on file.[facility]01-12-2023 Note CONSULTATION CONSULTATION DATE: 03/15/2022 HISTORY OF [...] with his leg elevated. Current medications include Bryant 5/325 b.i.d. and tizanidine p.r.n. Patient's REVIEW [...] postoperatively Orthopedics plans on keeping him on Bryant 5/325 b.i.d. I do worry that his post-op pain will not be adequately relieved with Bryant, and I did encourage the patient to talk with his Orthopedics' office to discuss this. We will see the patient in the office in three months' time unless otherwise indicated.[facility] [id number] NoteCONSULTATION CONSULTATION DATE: 01/16/2022 CHIEF COMPLAINT: Low [...] recently came off. The patient currently takes Bryant 5/325 daily, tizanidine 4 mg q.h.s. Activities aggravate the patient's pain. The patient reports standing too long, walking too long, ADLs aggravate the pain. Heat mitigates the patient's pain. Pushing, pulling, lifting aggravate the pain. Laying down mitigates the pain. The patient takes Bryant 5/325 one tablet p.o. daily. He finds [...] left foot. PLAN: We will increase the Bryant to 5/325 b.i.d. The patient will also start aquatic program. We will schedule the patient for a rhizotomy, radiofrequency ablation of the dorsal median rami at the level of L2, 3 and L4, 5; given that the patient has had successful medial branch blocks on two separate occasions. CC: Elisabeth Galvan NPMarietta [facility]opathic Clinic10-27-2022 NoteCONSULTATION CONSULTATION DATE: 12/28/2021 This is a [...] increased stiffness in his back. Medications include Bryant 5/325 q. day p.r.n. and Tizanidine 4 [...] be followed up in the clinic thereafter.[facility] [id number] NoteCONSULTATION CONSULTATION DATE: 10/26/2021 HISTORY OF PRESENT [...] 18, which is one year since his MS. He has not been able to gain approval to be off the Brilinta for interventional procedures. He is interested, however, in moving forward with procedures once the Brilinta is discontinued. He has seen Neurosurgery at [facility] and they would like to do [...] discontinue Tylenol #3 and start him on Bryant 5/325 daily p.r.n. Vitamin importance and nutrition were discussed as well. Patient agrees to move forward with this plan and be followed up in the clinic post his #1 procedure.[facility] [id number] Miscellaneous Notes* Telephone Encounter - Charbel Hill RN - 07/04/2021 11:34 AM EDT Neuro SPINE CARE COORDINATION QUICK NOTE Called patient to discuss scheduling for surgery. States he is not ready to schedule but will call back when he is. Also advised it best for recoveryto work on quitting smoking. [facility]2022 NoteHNO ID: [id number] Author: Megan Interiano MD Service: ? Author [...] lumbar laminectomy approx. 20 years ago in [place]. Did well post-op with resolution of sciatica. Has had chronic low back pain. Over the last 6 months he describes episodes of his legs feeling like rubber . Would occur randomly. Over the last 3 months he's started to experience this in the arms as well. 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 20 years ago in [place]. Did well post-op with resolution of sciatica. Has had chronic low back pain. Over the last 6 months he describes episodes of his legs feeling like rubber . Would occur randomly. Over the last 3 months he's started to experience this in the arms as well. 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 I examined the patient and evaluated all available films and pertinent documents. We discussed the case and I agree withthe plans as outlined in this note. As above, Ashok Doss is a 55 year old male with history of lumbar laminectomy about 20 years ago in [place] who presents for evaluation of mid back pain and LE weakness. Over the last 6 months he describes episodes of his legs feeling like rubber . Would occur randomly. Over the last 3 months he's started to experience this in the arms as well. 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 Staff note: 1. PCSM, plan for C4-T2 fusion and decompression, RBAEO reviewed in comprehensive detail, all questions answered to stated satisfaction Megan Interiano MD documented in this [facility]02-21-2022 NoteHNO ID: [id number] Author: Ashia Bermeo APRN.[facility] Service: ? Author Type: Nurse Practitioner Type: [...] lumbar laminectomy approx. 20 years ago in [place]. Did well post-op with resolution of sciatica. [...] DISTRIBUTION: Not applicable AMBULATORY STATUS: [facility] ANTIPLATELET OR ANTICOAGULATION STATUS: Yes Previous MS PREVIOUS SPINAL SURGERY: SURGERY #1: L5-S1 Laminectomy in [place] approx. 20 years ago There is no [...] vision or hearing. CARDIOVASCULAR: Hypertension and previous MS RESPIRATORY: Denies SOB, sputum production, and hemoptysis. [...] every day PHQ-9 Levels: (more content not included)...[facility]02-11-2022 NoteHNO ID: [id number] Author: Sonja Moser PA-C Service: ? Author Type: Physician Manager Of Marketing Type: Progress Notes Filed: 04/14/2021 3:29 PM Note Text: Per Triage: Ashok Doss is a 55 year old male that requests evaluation of spine. Per review, they have symptoms of back pain, neck pain, weakness, tingling in legs. Prior spine surgery: Several years ago (20) at a [facility] CMT: Muscle relaxer Studies (Reports unless [...] sure patient imaging is available for review. [facility]02-09-2022 NoteHNO ID: [id number] Author: Macario Garcia Service: ? Author Type: ? Type: Progress Notes Filed: 04/14/2021 3:29 PM Note Text: Patient name: Ashok Doss Are you being referred by a [place] for Spine Health Provider or Pain Management Provider at [facility]? No If answer is YES [...] the facility where the MRI/CT/myelogram was completed: [facility] Address: [address] [place] [address] MRI/CT/myelogram viewable in Epic: No If not, please provide [phone] to fax in imaging reports for review. [...] completed: Several years ago (20) at a [place] [facility] Could not recall any additional information at the time of the call Additional Comments [phone] Alliance Community Hospital09-19-2021 NoteSend Summary: Discharge Summary Providers: Provider RoleProvider Name PrimaryRequired, No Pcp ConsultingJosé Miguel Posey ConsultingRachel Stacy ReferringRequired, No Pcp AttendingRachel Stacy Note Recipients: Rachel Stacy MD - [phone] [preferred] Required, No PcpMD Discharge Summary: Admission Date: .18-Nov-2020 18:57:00 Discharge Date: 20-Nov-2020 Attending Physician at Discharge: Rachel Stacy Admission Reason: Inferior Wall STEMI(1) Final Discharge Diagnoses: Acute inferior ST elevation MS. Procedures: Left heart Catheterization, selective coronary angiography, left ventriculography, LV ao pullback, PCI and drug-eluting stent to the distal mid RCA, selective right common femoral angiography, Angio-Seal deployment. Condition at Discharge: stable Disposition at Discharge: Home Vital Signs: T PRBPSpO2 [id number]/7494% Date/Time11/20 11: 11: 20: 11: 11:20 Range(36.8C - 37C ) (70 - 87 ) (17 - 28 ) (132 - 165 )/ (66 - 82 ) (94% - 99% ) Highest temp of 37 C was recorded at 11/20 7:45 Date: Weight/Scale Type:Height: 18-Nov-2020 23:99648.7 kg 188 cm Physical Exam: Patient is [...] hour away, and will be seeking a adult care manager closer to home, but will be seen at [facility] with me within 1 week [...] laboratory results: Troponin I, Serum Trending View [id number] 21:03:00 19-Nov-2020 13:00:00 19-Nov-2020 05:23:00 19-Nov-2020 00:54:00 Lab Comment:Called- RB to Shelia GOODMAN , 11/19/2020 21:43 Called- RB to Michaelle David, 11/19/2020 13:36 Called- RB to Omar Isadora, 11/19/2020 06:26 Called- RB to Bandar Cesar, [...] Authorization (EUA) and has been verified by [facility]. This test is only authorized for the duration (more content not included)...[facility]09-17-2021 NoteHistory of Present Illness: HPI: ASHOK [...] Brilinta IV heparin, and was transferred to [facility] emergency department. Code purple called was [...] 1 mg IV, and Bairon-Synephrine, with prompt church of heart rate and blood pressure. At [...] fluids Thank you, Sincerely, Rachel Stacy MD [facility] Comorbidities: Comorbidites: Comorbid Conditionshypertension Allergies: Allergy Status [...] Completion Last Updated: 18-Nov-2020 20:21 by Rachel Stacy)[facility] 11-18-2020 Chief complaint Narrative - Reported* ASHOK DOSS is being seen for a cardiovascular evaluation . testing results. * ASHOK DOSS is a 55 year old male that [facility] with his for follow-up on testing. He follows with his primary adult care manager Dr. Stacy and was added to my scheduletoday. He has a recent history of an MS with cardiac catheterization 11/18/2020 with PCI and [...] see if cardiac rehabilitation is possible at [facility] that is closest to his home. [...] 1. CAD; with acute inferior ST elevation MS requiring cardiac catheterization 11/18/2020 with PCI and [...] recognition softwarewas used to prepare this document. [facility] 127 DO Work Phone: Evaluation note* Diagnosis Cervical spondylosis with myelopathy- Primary Loss of balance Other symptoms involving nervous and musculoskeletal systems Spinal stenosis of cervical region Spinal stenosis in cervical region [facility] Diagnosis Hypertension, unspecified type Atherosclerosis of [place] coronary artery of [place] heart without angina pectoris Current every day smoker Other hyperlipidemia Palpitations Unstable angina pectoris (Multi) Intermediate coronary syndrome Sleep apnea with use of continuous positive airway pressure (CPAP) History of ST elevation myocardial infarction (STEMI) History of PTCA Postsurgical percutaneous transluminal coronary angioplasty status Shortness of breath Acute cough BMI 35.0-35.9,adult documented in this encounter [facility] Work Phone: Evaluation note* Diagnosis Coronary artery disease involving [place] coronary artery of [place] heart with unstable angina pectoris- Primary Encounter [...] Medication course changed documented in this encounter [facility] Work Phone: Evaluation note* Diagnosis Atherosclerosis of [place] coronary artery of [place] heart without angina pectoris- Primary History of PTCA Postsurgical percutaneous transluminal coronary angioplasty status Mixed hyperlipidemia Primary hypertension Unspecified essential hypertension Current every day smoker BMI 35.0-35.9,adult documented in this encounter [facility] Work Phone: Evaluation note* Diagnosis Shortness of breath Encounter to discuss test results Other specified counseling History of PTCA Postsurgical percutaneous transluminal coronary angioplasty status Mixed hyperlipidemia Primary hypertension Unspecified essential hypertension Current every day smoker BMI 37.0-37.9, adult Medication course changed Hypertension, unspecified type Atherosclerosis of [place] coronary artery of [place] heart without angina pectoris Other hyperlipidemia Sleep apnea with use of continuous positive airway pressure (CPAP) History of ST elevation myocardial infarction (STEMI) BMI 35.0-35.9,adult documented in this encounter [facility] Work Phone: Evaluation note* Diagnosis Benign prostatic hyperplasia with urinary obstruction- Primary Benign prostatic hyperplasia with urinary obstruction- Primary Benign prostatic hyperplasia with urinary obstruction- Primary [facility] Diagnosis Migraine, unspecified, not intractable, without status migrainosus documented [facility]* Diagnosis Benign prostatic hyperplasia with urinary obstruction- Primary Enlarged prostate Hypertrophy of prostate without urinary obstruction and other lower urinary tract symptoms (LUTS) documented [facility]* Diagnosis Lower urinary tract symptoms (LUTS)- Primary Acute non-recurrent frontal sinusitis- Primary Lower urinary tract symptoms (LUTS) documented [facility]* Diagnosis Migraine, unspecified, not intractable, without status migrainosus documented [facility]* Diagnosis Lower urinary tract symptoms (LUTS)- Primary Benign prostatic hyperplasia with urinary obstruction Lower urinary tract symptoms (LUTS) documented [facility]* Diagnosis Lower urinary tract symptoms (LUTS)- Primary Acute non-recurrent frontal sinusitis- Primary Pigmented skin lesion of uncertain behavior of neck Lower urinary tract symptoms (LUTS) documented [facility]* Diagnosis Enlarged prostate- Primary Hypertrophy of prostate without urinary obstruction and other lower urinary tract symptoms (LUTS) Benign prostatic hyperplasia with urinary obstruction- Primary Enlarged prostate Hypertrophy of prostate without urinary obstruction and other lower urinary tract symptoms (LUTS) Benign prostatic hyperplasia with urinary obstruction documented [facility]* Diagnosis Essential hypertension- Primary Unspecified essential hypertension Chronic hip pain, left Mixed hyperlipidemia Enlarged prostate Hypertrophy of prostate without urinary obstruction and other lower urinary tract symptoms (LUTS) Skin lesion of left lower limb Unspecified disorder of skin and subcutaneous tissue documented [facility]* Diagnosis Migraine, unspecified, not intractable, without status migrainosus documented [facility]* Diagnosis Acute bronchitis, unspecified organism- Primary Upper respiratory symptom documented in this [facility]* Diagnosis Benign prostatic hyperplasia with urinary obstruction- Primary Migraine, unspecified, not intractable, without status migrainosus documented in [facility]* Diagnosis Benign prostatic hyperplasia with urinary obstruction- Primary Benign prostatic hyperplasia with urinary obstruction- Primary documented in this encounter [facility]* Diagnosis Benign prostatic hyperplasia with urinary obstruction- Primary Benign prostatic hyperplasia with urinary obstruction- Primary Migraine, unspecified, not intractable, without status migrainosus documented in this encounter [facility]* Diagnosis Benign prostatic hyperplasia with urinary obstruction- Primary Benign prostatic hyperplasia with urinary obstruction- Primary Migraine, unspecified, not intractable, without status migrainosus documented in this encounter [facility]* Diagnosis Atherosclerosis of [place] coronary artery of [place] heart without angina pectoris Medication course changed Primary hypertension Unspecified essential hypertension Mixed hyperlipidemia Palpitations Current every day smoker Sleep apnea with use of continuous positive airway pressure (CPAP) BMI 35.0-35.9,adult documented in this encounter [facility] Work Phone: Evaluation note* Diagnosis Benign prostatic hyperplasia with urinary obstruction- Primary Benign prostatic hyperplasia with urinary obstruction- Primary Migraine, unspecified, not intractable, without status migrainosus documented in this encounter [facility] noteNo assessment information available [facility] Work Phone: Evaluation note* Diagnosis Benign prostatic hyperplasia with urinary obstruction- Primary Benign prostatic hyperplasia with urinary obstruction- Primary Benign prostatic hyperplasia with urinary obstruction [facility] Diagnosis Benign prostatic hyperplasia with urinary obstruction- Primary Benign prostatic hyperplasia with urinary obstruction- Primary Benign prostatic hyperplasia with urinary obstruction- Primary documented in this encounter [facility] SystemHistory of Present illness Narrative* Patient is seen by me for the first time. 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 He was taken to [place] where he had a coronary intervention and [...] the merits of lifestyle modification and exercise. -State [facility] DO Work Phone: History of Present [...] in order to furtherimprove his hypertension and [facility] DO Work Phone: Hospital Discharge instructionsAmbulatory Orders* Referral to Orthopedic Surgery Location: None Selected * Referral to PT / OT / Speech (PT/OT/SP) Location: None Selected [facility] Work Phone: InstructionsNot on filedocumented in this [...] Authorized Specialty Diagnoses / Procedures Referred By Contac t Referred To Contact Cardiology Diagnoses Atherosclerosis of [place] coronary artery of [place] heart without angina pectoris Procedures Follow Up In Cardiology Leonid Figueredo MD [address] [facility] [address] [place] [address] Rachel Stacy MD [address] [facility] [address] [place] [address] Referral ID Status Reason Start Date Expiration Date V isits Requested Visits Authorized [id number] Authorized 08/28/2023 08/27/2024 1 1 [facility] Work Phone: Reason for referral (narrative)* Consultation (Routine) - Pending Review Specialty Diagnoses / Procedures Referred By Mikaela t Referred To Contact Dermatology Diagnoses Pigmented skin lesion of uncertain behavior of neck Magda Castle, CONVEYOR LINE BATTERY CHARGER-SUPERVISOR DRAWING [address] [place] [address] Johanny Burroughs DO [address] [place] [address] Referral ID Status Reason Start Date Expiration Date Visits Requested Visits Authorized [id number] Pending Review Specialty Services Required 08/05/2023 08/04/2024 1 1 [facility] for referral (narrative)* Consultation (Routine) - Pending Review Specialty Diagnoses / Procedures Referred By Contac t Referred To Contact Dermatology Diagnoses Skin lesion of left lower limb Julienne, Hunter L, CONVEYOR LINE BATTERY [facility] [address] [place] [address] Silviano Burroughs, DO [address] [place] [address] Referral ID Status Reason Start Date Expiration Date Visits Requested Visits Authorized [id number] Pending Review Specialty Services Required 05/01/2023 04/30/2024 1 1 * Consultation (Routine) - Pending Review Specialty Diagnoses / Procedures Referred By Contac t Referred To Contact Urology Diagnoses Enlarged prostate Hunter Robins [facility] [address] [place] [place] [address] Deborah Jeronimo MD [address] [place] [address] [place] [address] Referral ID Status Reason Start Date Expiration Date Visits Requested Visits Authorized [id number] Pending Review Specialty Services Required 05/01/2023 04/30/2024 1 1 * Misc (Routine) - Pending Review Specialty Diagnoses / Procedures Referred By Contac t Referred To Contact Diagnoses Chronic hip pain, left Procedures Disability/Handicap Hunter Hunter [facility] [address] [place] [address] Referral ID Status Reason Start Date Expiration Date V isits Requested Visits Authorized [id number] Pending Review 05/01/2023 04/30/2024 1 1 [facility] Assessments Diagnosis Gouty arthritis of [...] FoundDocuments on File Type Date Recorded Patient Janitorial Cleaner Expl anation Advance Directives and Living Will Power of Animal Pathology Teacher Documents on File Type Date Recorded Patient Janitorial Cleaner Expl anation ACP-Advance Directive ACP-Power of Animal Pathology Teacher Documents on File Type Date Recorded Patient Janitorial Cleaner Expl anation ACP-Advance Directive ACP-Power of Animal Pathology Teacher Date Activated Date Inactivated Comments 03/24/2022 9:21 [...] WO CONTRAST Patria Quiñones, PADMINI [address] [place] [address] Specialty Diagnoses / Procedures Referred By Contac t Referred To Contact CT IMAGING Diagnoses Spinal stenosis of cervical region Procedures CT CERVICAL SPINE WO IVCON CT CERVICAL SPINE W/O CONTRAST MATERIAL Megan Interiano MD [address] [place] [address] Ct Imaging Referral ID Status Reason Start Date Expiration Date Visits Requested Visits Authorized [id number] Authorized Auto-Generat ed Referral 06/06/2021 07/06/2022 1 1 Specialty Diagnoses / Procedures Referred By Contac t Referred To Contact XR IMAGING Diagnoses Cervical spondylosis with myelopathy Procedures XR CERV OTHER 4V AP/LAT/FLX/EXT RADEX SPINE CERVICAL 4 OR 5 VIEWS Bonus, Vivien, PA-C [address] [place] [address] Xr Imaging Referral ID Status Reason Start Date Expiration Date Visits Requested Visits Authorized [id number] Authorized Auto-Generat ed Referral 06/06/2021 07/06/2022 1 1 Specialty Diagnoses / Procedures Referred By Contac t Referred To Contact Radiology Diagnoses Hypertension, unspecified type Atherosclerosis of [place] coronary artery of [place] heart without angina pectoris Current every day smoker Other hyperlipidemia Palpitations Unstable angina pectoris (Multi) Sleep apnea with use of continuous positive airway pressure (CPAP) History of ST elevation myocardial infarction (STEMI) History of PTCA Shortness of breath Acute cough BMI 35.0-35.9,adult Procedures XR chest 2 views Guicho Mulligan MD [address] [address] Referral ID Status Reason Start Date Expiration Date Visits Requested Visits Authorized [id number] Authorized Perform Procedure 12/12/2024 1 1 Specialty Diagnoses / Procedures Referred By Contac t Referred To Contact Cardiology Diagnoses Hypertension, unspecified type Atherosclerosis of [place] coronary artery of [place] heart without angina pectoris Current every day smoker Other hyperlipidemia Palpitations Unstable angina pectoris (Multi) Sleep apnea with use of continuous positive airway pressure (CPAP) History of ST elevation myocardial infarction (STEMI) History of PTCA Shortness of breath Acute cough BMI 35.0-35.9,adult Procedures Holter Or Event Audio Visual Tech Guicho Mulligan MD [address] [address] Referral ID Status Reason Start Date Expiration Date V isits Requested Visits Authorized [id number] Pending Review 12/13/2023 12/12/2024 1 1 Specialty Diagnoses / Procedures Referred By Contac t Referred To Contact Radiology Diagnoses Hypertension, unspecified type Atherosclerosis of [place] coronary artery of [place] heart without angina pectoris Current every day smoker Other hyperlipidemia Palpitations Unstable angina pectoris (Multi) Sleep apnea with use of continuous positive airway pressure (CPAP) History of ST elevation myocardial infarction (STEMI) History of PTCA Shortness of breath Acute cough BMI 35.0-35.9,adult Procedures Nuclear Stress Test CHG MYOCARDIAL SPECT MULTIPLE STUDIES Guicho Mulligan MD [address] [address] Referral ID Status Reason Start Date Expiration Date V isits Requested Visits Authorized [id number] Pending Review 12/13/2023 12/12/2024 5 5 Specialty Diagnoses / Procedures Referred By Contac t Referred To Contact Cardiology Diagnoses Hypertension, unspecified type Atherosclerosis of [place] coronary artery of [place] heart without angina pectoris Current every day smoker Other hyperlipidemia Palpitations Unstable angina pectoris (Multi) Sleep apnea with use of continuous positive airway pressure (CPAP) History of ST elevation myocardial infarction (STEMI) History of PTCA Shortness of breath Acute cough BMI 35.0-35.9,adult Procedures Transthoracic Echo (TTE) Complete CA ECHO TTHRC R-T 2D W/WOM-MODE COMPL SPEC&COLR D Guicho Mulligan MD [address] [address] Referral ID Status Reason Start Date Expiration Date Visits Requested Visits Authorized [id number] Pending Review Perform Procedure 12/12/2024 1 1 Specialty Diagnoses / Procedures Referred By Contac t Referred To Contact Cardiology Diagnoses Hypertension, unspecified type Atherosclerosis of [place] coronary artery of [place] heart without angina pectoris Current every day smoker Other hyperlipidemia Palpitations Unstable angina pectoris (Multi) Sleep apnea with use of continuous positive airway pressure (CPAP) History of ST elevation myocardial infarction (STEMI) History of PTCA Shortness of breath Acute cough BMI 35.0-35.9,adult Procedures Follow Up In Cardiology Guicho Mulligan MD [address] [address] Referral ID Status Reason Start Date Expiration Date V isits Requested Visits Authorized [id number] Authorized 12/13/2023 12/12/2024 1 1 Specialty Diagnoses / Procedures Referred By Contac t Referred To Contact Diagnoses Hypertension, unspecified type Atherosclerosis of [place] coronary artery of [place] heart without angina pectoris Current every day smoker Other hyperlipidemia Palpitations Unstable angina pectoris (Multi) Sleep apnea with use of continuous positive airway pressure (CPAP) History of ST elevation myocardial infarction (STEMI) History of PTCA Shortness of breath Acute cough BMI 35.0-35.9,adult Procedures ECG 12 lead (Clinic Performed) Guicho Mulligan MD [address] [facility] [address] [place] [address] Referral ID Status Reason Start Date Expiration Date V isits Requested Visits Authorized [id number] Authorized 12/13/2023 12/12/2024 1 1 Specialty Diagnoses / Procedures Referred By Contac t Referred To Contact Diagnoses Benign prostatic hyperplasia with urinary obstruction Procedures Cystometrogram Deborah Jeronimo MD [address] [place] [address] Referral ID Status Reason Start Date Expiration Date V isits Requested Visits Authorized [id number] Pending Review 07/04/2023 07/03/2024 1 1 Discharge [...] powder, deodorant, jewelry, piercings, perfume, makeup, nail swedish, hair accessories, or hair spray on the [...] hospital. The Day of Surgery: Arrive at [facility] Entr[facility] at the time directed by your surgeon and check in at the desk. If you have a living will or healthcare power of attorney law clerk, please bring a copy. You will be taken to the pre-op holding area where you will be prepared for surgery. A physical assessment will be performed by a nurse practitioner or plumbing warehouse helper. Your IV will be started and you [...] encounter* Instructions* Irish Meehan RN - 11/10/[address] [facility] [address] Liu Jackson M.D. [phone] POST OPERATIVE DISCHARGE INSTRUCTIONS KNEE ARTHROSCOPY 1. Follow-up in office seven to ten days after surgery. Call for appointment if not already made. ([phone]). 2. Take pain medication as ordered. 3. [...] leg pain October 06, 2024 10: 03am Chief Complaint Admit Date back pain no images October 06, 2024 10: 03am M54.16 M79.604 October 14, 2024 9: 23am TB-CONSULT KAMILA RADFORD LT HIP PAIN WX MRI October 20, 2024 10:17am Additional Source Comments Reason for Visit (unrecogniz ed section and content) Status Reason Specialty Diagnoses / Procedures Referre d By Contact Referred To Contact Closed Radiology Diagnoses Effusion of left knee Injury of left knee, subsequent encounter Procedures MRI KNEE LEFT WO CONTRAST Patria Quiñones, CPNP [address] [place] [address] Status Reason Specialty Diagnoses / Procedures Referre d By Contact Referred To Contact Diagnoses Acute medial meniscus tear of left knee MEDIAL MENISCUS TEAR LEFT KNEE Procedures CA KNEE SCOPE,DIAGNOSTIC KNEE ARTHROSCOPY WITH PARTIAL MEDICAL MENISECTOMY Liu Jackson MD [address] [facility] [address] [place] [address] [facility] Reason Comments New Patient Reason Comments Schedule Surgery Reason Comments Follow-up PALPITATIONS, CHEST PRESSURE Specialty Diagnoses / Procedures Referred By Dorisac t Referred To Contact Diagnoses Hypertension, unspecified type Atherosclerosis of [place] coronary artery of [place] heart without angina pectoris Current every day smoker Other hyperlipidemia Palpitations Unstable angina pectoris (Multi) Sleep apnea with use of continuous positive airway pressure (CPAP) History of ST elevation myocardial infarction (STEMI) History of PTCA Shortness of breath Acute cough BMI 35.0-35.9,adult Procedures ECG 12 lead (Clinic Performed) Guicho Mulligan MD [address] [address] Referral ID Status Reason Start Date Expiration Date V isits Requested Visits Authorized [id number] Authorized 12/13/2023 12/12/2024 1 1 Reason Comments Follow-up Stress, echo, holter results Specialty Diagnoses / Procedures Referred By Dorisac t Referred To Contact Cardiology Diagnoses Hypertension, unspecified type Atherosclerosis of [place] coronary artery of [place] heart without angina pectoris Current every day smoker Other hyperlipidemia Palpitations Unstable angina pectoris (Multi) Sleep apnea with use of continuous positive airway pressure (CPAP) History of ST elevation myocardial infarction (STEMI) History of PTCA Shortness of breath Acute cough BMI 35.0-35.9,adult Procedures Follow Up In Cardiology Guicho Mulligan MD [address] [address] Phone: tel: fax: Referral ID Status Reason Start Date Expiration Date V isits Requested Visits Authorized [id number] Authorized 12/13/2023 12/12/2024 1 1 Reason Comments Follow-up 9 months Reason Comments Follow-up Cath results Specialty Diagnoses / Procedures Referred By Contac t Referred To Contact Cardiology Diagnoses Unstable angina pectoris (Multi) Shortness of breath Procedures Follow Up In Cardiology Rachel Stacy MD [address] [place] [address] Phone: tel: fax: Rachel Stacy MD [address] [place] [address] Phone: tel: fax: Referral ID Status Reason Start Date Expiration Date V isits Requested Visits Authorized [id number] Authorized 01/06/2024 01/05/2025 1 1 Reason Comments Med Refill Reason Comments New Patient enlarged prostate Specialty Diagnoses / Procedures Referred By Contac t Referred To Contact Urology Diagnoses Enlarged prostate Hunter Robins, CONVEYOR LINE BATTERY CHARGER-CORRESPONDENCE DICTATOR [address] [place] [address] Deborah Jeronimo MD [address] [place] [address] Referral ID Status Reason Start Date Expiration Date Visits Requested Visits Authorized [id number] Pending Review Specialty Services Required 05/01/2023 04/30/2024 [...] Follow Up In Cardiology Rachel Stacy MD [address] [place] [address] Phone: tel: fax: Rachel Stacy MD [address] [place] [address] Phone: tel: fax: Referral ID Status Reason Start Date Expiration Date V isits Requested Visits Authorized [id number] Authorized 02/21/2024 02/20/2025 1 1 Reason Onset Date Comments Med Refill 09/07/2024 Reason Onset Date Comments Med Refill 11/03/2024 Reason Onset Date Comments Med Refill 11/09/2024 Reason Comments Follow-up (unrecognized sect ion and content) No Status Records FoundNo Status Records FoundNo Status Records FoundNo Status Records FoundNo Status Records FoundNo Status Records FoundNo Status Records FoundNo Status Records FoundNo Status Records FoundNo Status Records FoundNo Status Records FoundNo Status Records Found INFORMATION SOURCE (unrecogn ized section and content) DATE CREATED AUTHOR 05/06/2020 [facility] DATE CREATED AUTHOR AUTHOR'S ORGANIZ ATION 05/07/2020 [facility] DATE CREATED AUTHOR AUTHOR'S ORGANIZ ATION 12/26/2020 [facility] DATE CREATED AUTHOR AUTHOR'S ORGANIZ ATION 07/06/2021 [facility] DATE CREATED AUTHOR AUTHOR'S ORGANIZ ATION 10/26/2021 [facility] DATE CREATED AUTHOR AUTHOR'S ORGANIZ ATION 08/10/2022 [facility] DATE CREATED AUTHOR AUTHOR'S ORGANIZ ATION 08/24/2022 [facility] DATE CREATED AUTHOR AUTHOR'S ORGANIZ ATION 08/01/2023 [facility] DATE CREATED AUTHOR AUTHOR'S ORGANIZ ATION 03/17/2024 [facility] DATE CREATED AUTHOR AUTHOR'S ORGANIZ ATION 08/19/2024 [facility] DATE CREATED AUTHOR AUTHOR'S ORGANIZ ATION 11/20/2024 [facility] DATE CREATED AUTHOR AUTHOR'S ORGANIZ ATION 11/25/2024 [facility] Source Comments (unrecognize d section and content) In the event this informatio n is protected by the Federal Confidentiality of Alcohol and Drug Abuse Patient Records regulations: The Federal rules restrict any use of the information to criminally investigate or prosecute any alcohol or drug abuse patient.[facility] ClinicIn the event this information is protected by the Federal Confidentiality of Alcohol and Drug Abuse Patient Records regulations: The Federal rules restrict any use of the information to criminally investigate or prosecute any alcohol or drug abuse patient.[facility] Care Teams (unrecognized sec tion and content) Immigration Investigator Relationship Specialty Start Date End Date Fidel Colten MaldonadoardDO PCP - General 12/23/20 Immigration Investigator Relationship Specialty Start Date End Date Colten Parra DO PCP - General 12/23/20 Immigration Investigator Relationship Specialty Start Date End Date Colten Parra DO [address] [place] [address] PCP - General 12/23/20 Immigration Investigator Relationship Specialty Start Date End Date Colten Parra DO PCP - General 12/23/20 Immigration Investigator Relationship Specialty Start Date End Date Colten Parra DO [address], [place] [address] PCP - General Family Medicine 04/03/22 Immigration Investigator Relationship Specialty Start Date End Date Colten Parra DO [address], [place] [address] PCP - General Family Medicine 04/03/22 Immigration Investigator Relationship Specialty Start Date End Date Colten Parra DO [address] [place] [address] PCP - General Family Medicine 04/03/22 Immigration Investigator Relationship Specialty Start Date End Date BettezafarColten figueora DO [address] [place] [address] PCP - General Family Medicine 04/03/22 Immigration Investigator Relationship Specialty Start Date End Date BettezafarColten figueroa DO [address] [place] [address] PCP - General Family Medicine 04/03/22 Immigration Investigator Relationship Specialty Start Date End Date BettezafarColten figueroa DO [address] [place] [address] PCP - General Family Medicine 04/03/22 Immigration Investigator Relationship Specialty Start Date End Date Colten Parra DO [address] [place] [address] PCP - General Family Medicine 04/03/22 Immigration Investigator Relationship Specialty Start Date End Date Colten Parra DO [address] [place] [address] PCP - General Family Medicine 04/03/22 Immigration Investigator Relationship Specialty Start Date End Date BettezafarColten figueroa DO [address] [place] [address] PCP - General Family Medicine 04/03/22 Immigration Investigator Relationship Specialty Start Date End Date Colten Parra DO [address] [place] [address] PCP - General Family Medicine 04/03/22 Immigration Investigator Relationship Specialty Start Date End Date BettezafarColten figueroa DO [address] [place] [address] PCP - General Family Medicine 04/03/22 Immigration Investigator Relationship Specialty Start Date End Date BettezafarColten figueroa DO [address] [place] [address] PCP - General Family Medicine 04/03/22 Immigration Investigator Relationship Specialty Start Date End Date BetteleighannColten DO [address] [place] [address] PCP - General Family Medicine 04/03/22 Immigration Investigator Relationship Specialty Start Date End Date BettezafarColten figueroa DO [address] [place] [address] PCP - General Family Medicine 04/03/22 Immigration Investigator Relationship Specialty Start Date End Date BettezafarColten figueroa DO [address] [place] [address] PCP - General Family Medicine 04/03/22 Immigration Investigator Relationship Specialty Start Date End Date BetteleighannColten DO [address] [place] [address] PCP - General Family Medicine 04/03/22 Immigration Investigator Relationship Specialty Start Date End Date Colten Parra DO [address], [place] [address] PCP - General Family Medicine 04/03/22 Immigration Investigator Relationship Specialty Start Date End Date Colten Parra DO [address], [place] [address] PCP - General Family Medicine 04/03/22 Immigration Investigator Relationship Specialty Start Date End Date Colten Parra DO PCP - General 12/23/20 Immigration Investigator Relationship Specialty Start Date End Date Colten Parra DO [address] [place] [address] PCP - General Family Medicine 04/03/22 Team Status: Active Member Role Status Dates Colten AmoszafarDO henry Primary Care Provider Active Team Status: Inactive Member Role Status Dates Colten BetteDO leighann Primary Care Provider Active Start: October 06, 2024 End: October 06, 2024 Kamila Radford APRN Attending Provider Active Start: October 06, 2024 End: October 06, 2024 Team Status: Inactive Member Role Status Dates Colten BetteDO leighann Primary Care Provider Active Start: October 14, 2024 End: October 14, 2024 Kamila Radford APRN Attending Provider Active Start: October 14, 2024 End: October 14, 2024 Team Status: Inactive Member Role Status Dates Colten BetteDO leighann Primary Care Provider Active Start: October 20, 2024 End: October 20, 2024 Alex Franco II, MD Attending Provider Active Start: October 20, 2024 End: October 20, 2024 Immigration Investigator Relationship Specialty Start Date End Date Colten Parra DO [address] [place] [address] PCP - General Family Medicine 04/03/22 Immigration Investigator Relationship Specialty Start Date End Date Colten Parra DO [address] [place] [address] PCP - General Family Medicine 04/03/22 Goals (unrecognized section and content) Goals may be documented in a n alternate sectionGoals may be documented in an alternate sectionGoals may be documented in an [...] BE BASED ON THE PRIMARY CLINICAL RECORDS. [employer] provides no warranty or guarantee of the accuracy or completeness of information in this document.
--- NOTE | 2024-11-26 10:50 | PM.CN ---
Consult Note: HPI Data of Consult Patient: known to practice within the last 3 years Consult date: 11/26/24 Requesting Physician: Priscilla Elkins NP Primary Care Provider: HUNTER ROBINS Consult Narrative Reason for consult: low back pain, hip pain Narrative: 59yom who presents for assessment of low back and left hip pain. continues to use norco as needed and zonegran 150mg BID. denies adverse med side effects. following with orthopedics and NS. currently engaged in PT for low back in consideration of updated lumbar MRI. denies falls/injury since last visit, continues to utilze cane. pain today 05/11 in low back, right hip and groin, dull sharp increasing with standing, walking, bending, pushing, pulling, activity, and sleep. cc:: CC: Priscilla Elkins NP Review of Systems ROS Musculoskeletal Reports: back pain and joint pain PFSH PFS Medical History (Updated 07/17/23 @ 10:05 by Priscilla Elkins NP) Osteoarthritis ?M19.90 - Unspecified osteoarthritis, unspecified site (ICD-10) Enlarged prostate ?N40.0 - Benign prostatic hyperplasia without lower urinary tract symptoms (ICD-10) Obstructive sleep apnea on CPAP ?G47.33 - Obstructive sleep apnea (adult) (pediatric) (ICD-10) Sleep apnea ?G47.30 - Sleep apnea, unspecified (ICD-10) History of heart attack ?I25.2 - Old myocardial infarction (ICD-10) Surgical History History of cardiac cath ?Z98.890 - Other specified postprocedural states (ICD-10) History of surgery on lower extremity ?Z98.890 - Other specified postprocedural states (ICD-10) Meds Home Medications and Allergies Home Medications ?Medication ?Instructions ?Recorded ?Confirmed ?Type atorvastatin 80 mg tablet 80 mg PO BEDTIME 08/14/22 10/22/23 History divalproex 125 mg tablet,delayed 125 mg PO TID 08/14/22 10/22/23 History release lisinopril 20 1 tab PO DAILY 08/14/22 10/22/23 History mg-hydrochlorothiazide 12.5 mg tablet metoprolol tartrate 25 mg tablet 25 mg PO BID 08/14/22 10/22/23 History tamsulosin 0.4 mg capsule (Flomax) 0.4 mg PO DAILY 10/22/23 10/22/23 History zonisamide 100 mg capsule 100 mg PO BID #180 caps 04/30/24 Rx (Zonegran) cyclobenzaprine 10 mg tablet 10 mg PO TID PRN muscle spasm #90 05/21/24 Rx tabs hydrocodone 5 mg-acetaminophen 325 1 tab PO BID PRN pain, moderate 05/21/24 Rx mg tablet #60 tabs zonisamide 50 mg capsule 50 mg PO BID #60 caps 05/21/24 Rx hydrocodone 5 mg-acetaminophen 325 1 tab PO BID PRN pain #60 tabs 07/02/24 Rx mg tablet cyclobenzaprine 10 mg tablet 10 mg PO TID PRN muscle spasm #90 07/20/24 Rx tabs zonisamide 50 mg capsule 150 mg (3 x 50 mg) PO BID #180 caps 07/20/24 Rx hydrocodone 5 mg-acetaminophen 325 1 tab PO BID PRN pain #60 tabs 08/10/24 Rx mg tablet cyclobenzaprine 10 mg tablet 10 mg PO TID PRN muscle spasm #90 09/09/24 Rx tabs hydrocodone 5 mg-acetaminophen 325 1 tab PO BID PRN pain #60 tabs 09/09/24 Rx mg tablet zonisamide 100 mg capsule 100 mg PO TID #90 caps 09/09/24 Rx (Zonegran) hydrocodone 5 mg-acetaminophen 325 1 tab PO BID PRN pain #60 tabs 10/09/24 Rx mg tablet hydrocodone 5 mg-acetaminophen 325 1 tab PO BID PRN pain #60 tabs 11/10/24 Rx mg tablet Allergies Allergy/AdvReac Type Severity Reaction Status Date / Time amoxicillin AdvReac Mild Nausea Verified 10/22/23 08:11 prednisone AdvReac Mild Nausea Verified 10/22/23 08:11 Exam Constitutional Documenting provider has reviewed patient's vital signs: yes Common normals: no apparent distress, oriented x3, healthy appearing, alert and well nourished General appearance: cooperative Orientation/consciousness: Yes awake, Yes oriented to person, Yes oriented to place and Yes oriented to time HENID Common normals: normocephalic, hearing grossly normal bilaterally and moist oral mucous membranes Head and scalp: normocephalic Eye Common normals: PERRL Pupil: PERRL Neck & C-Spine Common normals: full ROM General: normal visual inspection Chest Common normals: inspection of chest normal Respiratory Common normals: normal respiratory effort, no retractions and no use of accessory muscles Effort & inspection: able to speak in complete sentences and symmetric chest movement Back & Pelvis Lumbar spine/lower back: pain with ROM, lumbar spinal tenderness and straight leg raise negative bilaterally Extremity Common normals: normal capillary refill and no pedal edema Other: Positive internal and external rotation of left hip muscle strength 5/5 bilat LE with intact sensation Neuro Common normals: oriented x3, CN's II-XII intact bilaterally, moves all extremities, no focal motor deficits, no sensory deficits noted and deep tendon reflexes 2+ bilaterally Sensorium/orientation: alert Gait (neuro): assistive device used cane Motor exam: strength 5/5 throughout and no movement abnormalities noted Psych Common normals: mental status grossly normal, thought process normal, cooperative, affect normal, speech normal and activity/motor behavior normal Speech: normal speech Thought process: normal thought process Results Additional Findings Additional findings: If on a controlled substance or opioids, I have checked an OARRS report on this patient and there are no aberrancies noted in the prescribing history.??If on a controlled substance or opioid a drug screen was completed and reviewed within the last year, and if there has not been a drug screen completed we ordered one today to monitor higher risk, state monitored pain medication use. As part of providing excellent, safe, comprehensive care, the following was completed at our patient's visit: 1. A medication reconciliation and review to ensure accurate knowledge of current/active medications, including asking our patients to inform us about any cjoc-wlj-fvxptmn medications or herbal remedies/nutritional supplements/alternative remedies. 2. A review to specifically ensure our patients have had annual screening for screening for depression, screening for tobacco use, and screening for unhealthy alcohol use. For concerning screenings had a discussion with the patient, provided patient education, and recommended follow-up with primary care provider when appropriate. If patient noted with a risk of falling, they received education on strength, gait, and balance training to prevent future risk of falling. Portions of this note may have been carried over from the previous visit and updated as appropriate. Please note this office utilizes paper charting in addition to the electronic medical record. A list of current medications, vitals, and PMH is available there as the clinical staff outside of myself do not have access to [employer] charting during the clinic day operations. As part of providing quality comprehensive care the current medications, vitals, and PMH were reviewed in the paper chart. Assessment and Plan Assessment and Plan (1) Lumbar spondylosis: (2) Sacroiliitis: (3) Labral tear of left hip joint: (4) Osteoarthritis, hip, bilateral: (5) Chronic prescription opiate use: Assessment and Plan: I feel these medications are improving the patient's quality of life and allow them to tolerate activities of daily living as well as participate in recreational activity.? The patient does not report intolerable side effects. The patient is NOT opioid naive and non-pharmacologic and non-opioid treatment has failed to significantly relieve the patient's pain and improve functionality. The patient has a diagnosis that is related to a somatic or visceral pain etiology. ? ?? I reviewed with the patient the potential risks and side effects with the use of? opioid medications including but not limited to respiratory depression,? sedation, and even . Within the last 12 months I have verified the patient has access to naloxone should? these effects occur. The patient was advised to let? their family know they had Naloxone in case they would need to administer? the medication. I advised the patient to avoid the use of any other? sedation substances including alcohol, THC, and benzodiazepines while? taking opioid medications due to the risk of compounding side effects and? detrimental outcomes. within the last 12 months I have reviewed the SUEDE BRUSHER, pain treatment agreement and urine drug screen.? ?? A drug screen was completed within the last year, and no aberrancies were noted regarding their use of controlled substances. The patient understands they are subject to the terms and conditions of the pain contract that they have signed. ? ?? I have checked an OARRS report on this patient today and there are no aberrancies noted in the prescribing history.? Plan 59 year old male presents for evaluation of chronic low back and left hip pain. continues to f/u with orthopedics, pending left hip replacement. at this time risks vs benefits of current medication reviewed. continue zonegran 150mg BID, cyclobenzaprine 10mg TID PRN pain/spasms, and continue hydrocodone-acetaminophen 5-325mg BID PRN moderate to severe pain. pt declining repeat left hip injection, notes >50% improvement greater than 3 months. can call to schedule if he is not moving forward with hip replacement. f/u 3 months, sooner if needed
== END 2024-11-26 10:18 | disposition home or self-care (01) ==
LOC: PM 10:18
PROVIDERS: PCP Nurse Practitioner Family; Visit Provider Nurse Practitioner
DX: M47.816 Spondylosis without myelopathy or radiculopathy, lumbar region (principal); M46.1 Sacroiliitis, not elsewhere classified; S73.192A Other sprain of left hip, initial encounter; M16.0 Bilateral primary osteoarthritis of hip; Z79.891 Long term (current) use of opiate analgesic
CPT/HCPCS: G0463

== ENCOUNTER 2025-02-17 10:17 | Outpatient (OUT) | payer MEDICARE, SELFPAY ==
--- OUTSIDE RECORDS SUMMARY | 2025-02-11 10:25 | XMS_ITS | Continuity of Care Document ---
Author Organization [facility] Address [address] [place] [address] Phone Care Team Providers Care Hat Brusher Machine Name Role Phone oClten Parra DO Primary Care Provider Kamila Chan APRN Attending Provider Christie Jensen APRN Attending Provider Brandee Jaime MD Attending Provider Brandee Jaime MD Other Provider [phone] Care Teams Patient Care Team Team Status: Active Member Role/Relationship Status Dates Colten Parra DO Primary Care Provider Active Visit Care Team Team Status: Inactive Member Role/Relationship Status Dates Colten Parra DO Primary Care Provider Active Start: December 01, 2024 End: December 02, 2024ElenAxel Bains ProviderActiveStart: December 01, 2024 End: December 02, 2024 Visit Care Team Team Status: Inactive Member Role/Relationship Status Dates Colten Parra DO Primary Care Provider Active Start: December 21, 2024 End: December 21, 2024Axel Mcneil ProviderActiveStart: December 21, 2024 End: December 21, 2024 Visit Care Team Team Status: Inactive Member Role/Relationship Status Dates Colten Parra DO Primary Care Provider Active Start: January 13, 2025 End: January 13Ally Otero ProviderActiveStart: January 13, 2025 End: January 13, 2025 Patient Care Team Team Status: Active Member Role/Relationship Status Dates Colten Parra DO Primary Care Provider Active Start: February 11, 2025 Brandee Jaime MDAttending ProviderActiveStart: February 11, 2025 Brandee Jaime MDOther ProviderActiveStart: February 11, 2025 Chief Complaint and Reason for Visit Chief Complaint Admit Date L lumbar radiculopathy, Pain lower extre mities December 01, 2024 1:00pm Initial Smoking Cessation-Unable to move up December 21, 2024 9:23am NEW RT RING TRIGGER FINGER NX January 022024 8:51am Trigger Finger February 11, 2025 12:59pm Reason for Visit Admit Date Nicotine dependence December 21, 2024 9 :23am Primary osteoarthritis of left hip Octob er 2024 9:23am ID (myocardial infarction) December 21, 2024 9:23am Right hand pain January 13, 2025 8:51am Trigger finger, right ring finger Novemb er 2024 8:51am Reason for Referral Type Reason(s) Provider Provider Contact Information [facility] Address Start Date 2 weeks as scheduled2 weeks as scheduledCobrenden Jaime MDWork Phone: [phone] [facility] [address] Allergies, Adverse Reactions, Alerts Allergen Type Severity Reaction Last Updated Verified Status fentanyl Allergy Mild Vomiting February 11, 2025 1:17pm Yes Active amoxicillin Allergy Unknown Vomiting February 11, 2025 1:17pm Yes Active isosorbide Allergy Unknown Headache February 11, 2025 1:17pm Y es Active prednisone Allergy Unknown Palpitations February 11, 2025 1:17 pm Yes Active Social History Smoking Status Status Start Date End Date Date of Observa tion Smokes tobacco daily (finding) February 11, 2025 1:22pm Observation Status Observation Response Date of Response Legal Sex Male (finding) Sex Assigned At BirthMaleMay 1965Gender IdentityCisgender/Not transgender (finding)December 21isgender/Not transgender (finding)December 21, 2024 Cisgender/Not transgender (finding)December 21isgender/Not transgender (finding)December 21isgender/Not transgender (finding)December 21, 2024 Cisgender/Not transgender (finding)December 21, 2024Sexual OrientationUnknown UnknownUnknownUnknownUnknownUnknown Family History Relationship Condition Age at Onset Recorded Date/T bernie father Heart disease Unknown motherSystemic sclerosisUnknownMalignant neoplasm of breastUnknown Problems Active Problems Problem Diagnosis/Recorded Date Onset Date Stat us Right hand pain January 13, 2025 9:07am Unknown Active Nicotine dependence October 20, 2024 11:47am Unknown Active Trigger finger, right ring finger January 13, 2025 9:07am Unknown Active Primary osteoarthritis of left hip October 20, 2024 1 1:47am Unknown Active Right leg pain October 06, 2024 9:29am Unknown Ac tive Left lumbar radiculopathy October 06, 2024 9:29am Unkn own Active Hypertension January 09, 2024 1:08pm Unknown Ac tive Medications Medication Status Dose Units Route Directions Qty Days Refills S tart Date Stop Date End Date Reason(s) Instructions Adherence Atorvastatin 80 mg tablet Active 80 MG PO Daily January 09, 2024 12:00amComplies with drug therapyLisinopril- Hydrochlorothiazide 20-12.5 mg mffrogLztgzy7QEEKWWrcgdXlppfsyo 2023 12:00am Complies with drug therapyHydrocodone-Acetaminophen 5-325 mg tabletDiscontinued1 TABPOTwice daily as needed for painAt[facility]2023 12:00amDecember 2024 1:21pmAmlodipine 5 mg vauxzeRyejvveguurh7UHRGWyabyRodrtuda 2023 12:00am October 06, 2024 9:07amAspirin 81 mg tablet,delayed release (DR/EC)Lqpxsd36JKSM DailyNov2023 12:00amComplies with drug therapyTamsulosin 0.4 mg capsuleActive0.4MGPOTwice dailyAtrium Health [facility]2023 12:00amComplies with drug therapyBaclofen 10 mg aypchvSqeyoaryjwby97QKBSLhfxvGjwcmnah 2023 12:00am October 06, 2024 9:09amDivalproex 125 mg tablet,delayed release (DR/EC)Pgrpyb944 MGPODailyLouisville Medical Center 2023 12:00amComplies with drug therapyMetoprolol Tartrate 50 mg fmrlkwKamdycdmmcpq65AKZVSxiznJyzwfkih 7th, 2024 12:00amOctmonroe county medical center 2024 8:41amNitroglycerin 0.4 mg tablet, sublingualActive0.5CTPEURJFLPFNB9B as needed for chest painNov2023 12:00amComplies with drug therapyFinasteride 5 mg ftidzfHuimog4EKZRWgtotPqcdrgma 7th, 2024 12:00amComplies with drug therapy Magnesium Oxide (Magox) 400 mg (241.3 mg magnesium) lnpdfkHwmgeb415GBNMVxvmk November 2023 12:00amComplies with drug therapyMetoprolol Tartrate 50 mg ayrbqnTdxiwlglxxxo59HFCJUxxjzNbjqwqz 20th, 2025 8:41amNovember 2024 9:01am Metoprolol Tartrate 50 mg gfrgekRucsir41YZJLFzjvxZgxazlms 12th, 2025 9:01am Complies with drug therapyHydrocodone-Acetaminophen 5-325 mg tabletActive1 - 2 TABPOEVERY 4-6 HOURS as needed for ziyi6308Ojtoywol 2024Pain of right hand Trigger ring finger of right hand Postoperative pain of extremity Pain in right hand Trigger finger, right ring finger Other acute postprocedural pain Pain in unspecified limbComplies with drug therapyDoxycycline Hyclate 100 mg barldiReqakwaqmlvo120EVBOXmtym hlcap9643Qxpufqas 11th, 2025 12:00am[facility] 20[facility] 1:21pmCyclobenzaprine 10 mg murwzaKrnvcp54YNDCPgxmo times daily as needed for muscle spasmAugust 2024 11:00pmComplies with drug therapy Lisinopril 20 mg zjacprJmexoy48DTLWCaqsnRjegxx 2024 11:00pmComplies with drug therapySpironolactone (Aldactone) 25 mg xxmdxhPmbpin28NARYDdwkzGvmfdj 4th, 2025 11:00pmComplies with drug therapyZonisamide 100 mg zvpwrmfZqkthj519EQUJ Twice dailyAugust 2024 11:00pmComplies with drug therapyVarenicline Tartrate 0.5 mg (11)- 1 mg (42) tablets,dose dwuqJwpgbvtleydm0VZdkt package yxfminuoiy27999Xjzmdsx 2024 11:00pmDecember 2024 1:21pmNicotine dependence Nicotine dependence, unspecified, uncomplicatedorally per package directions Vital Signs Vital Reading Result Reference Range Collection Date/Time Height 74 [in_i] December 21, 2024 8:80vcGinnwn530.10 kgOctmonroe county medical center 2024 8:37amHeart Lyul012 /hfp01-125Yonydzc 2024 8:37amRespiratory rate18 /kwr48-35Xhqimpg 2024 8:37amOxygen saturation by Pulse dhkowavi60 %95-100Octmonroe county medical center 2024 8:37amBP Ustmupdf87 mm[Hg]100-140Octmonroe county medical center 2024 8:37amBP Laxsovtgs81 mm[Hg] 60-100Octmonroe county medical center 2024 8:37amBMI (Body Mass Index)35.6 kg/w0Ympujqq 2024 8:25hrYuvugo90 [in_i]February 11, 2025 1:30pnIxpzdc519.00 kgDeceer 2024 1:22pmBody Yqcnjlycvgl07.3 [degF]97.6-99.0December 2024 1:22pmHeart Rate82 /gaz51-468Vbeioivn 2024 3:00pmRespiratory rate18 /ccq93-90Aqggwxex 2024 3:00pmOxygen saturation by Pulse tqgwndah47 %95-100December 2024 3:00pmBP Iogalhwe318 mm[Hg]100-140December 2024 3:00pmBP Pxoezvwqz14 mm[Hg]60-100December 2024 3:00pm Advance Directives Advance Directive Response Recorded Date/ Time Advance Directives No January 08, 2024 3:41pm Insurance Providers Guarantor Dale Belcher Address [address] [facility] [address] [facility] [address]Fbcubth Info.Home Phone: Coverage Status Update:2025 Payer Group Member ID Coverage Type Subscriber Relationship to Subscriber Effective Date Expiration Date Jordy VIEIRA Id: [id number] A Payne Id: [id number] [address] [place] [address] [address] [facility] [address] Home Phone: Email: [email or web address] A Payne Id: [id number] [address] [facility] [address] Home Phone: Email: [email or web address] Encounters Encounter Location(s) Arrival/Admit Date Discharge/Departure Date Discharge/Departure Disposition Provider(s) Discharged Recurring -Physical Therapy [place] December 01, 2024 1:00pm December 02, 2024 2:00pm Discharged to home care or self care (routine discharge) Kamila Chan APRN Departed Physician/ Provider Office Visit -[facility] December 21, 2024 9:23am December 21, 2024 10:21am Discharged to home care or self care (routine discharge) Christie Jensen APRN Departed Physician/ Provider [facility] Visit [facility] January 13, 2025 8:51am January 13, 2025 9:28am Discharged to home care or self care (routine discharge) Brandee Jaime MD Non-patient / [facility]-visit -[facility] February 11, 2025 12:59pm Barndee Jaime MD Recent Diagnosis Onset Date Admit Date Nicotine dependence Unknown December 9:23am Primary osteoarthritis of left hip Unknown December 21, 2024 9:23am ID (myocardial infarction) Unknown Octob er 2024 9:23am Right hand pain Unknown January 13, 2 025 8:51am Trigger finger, right ring finger Unknown January 13, 2025 8:51am Assessments Diagnosis Onset Date Resolution Status Admit Date Nicotine dependence acuteOctober 2024 9:23amPrimary osteoarthritis of left hipacuteOctober 2024 9:23amMI (myocardial infarction)noneactiveOctober 2024 9:23am Right hand painacuteNovember 2024 8:51amTrigger finger, right ring finger acuteNovember 2024 8:51am Plan of Treatment Author Brandee Jaime [facility] CenterAuthoredNov 2025 9:32amThis appears to be trigger finger. We discussed the cause of this condition and the treatment options. We discussed stretching of the finger as well as massage of the palmar MCP region. We discussed the use of cortisone injection into the palmar aspect of the hand at the trigger site can be helpful in relieving painful symptoms. We also discussed the option of surgical release which can eliminate the problem. At this time patient would like to go ahead with surgical treatment, we will proceed with right ring trigger release 59 year old man with pain at right hand due to right ring trigger finger - Discussion held with patient regarding diagnosis and treatment options. At this time we have discussed nonoperative versus operative treatment modalities. - Nonoperative treatment modalities would include 1) cortisone injection to tendon sheath 2) anti-inflammatory medications on a scheduled basis for reduction of pain and swelling 3) home range of motion exercises - Should nonoperative modalities fail to provide adequate or long-lasting pain relief of symptoms, patient may require operative treatments with decompression of the tendon sheath - Discussion held with the patient regarding the risks, benefits, alternatives, and potential complications, and the patient wishes to proceed with surgical treatment. Surgical treatment carries known and unknown risks including but not limited to: pain, swelling, infection (superficial or deep), blood loss, injury to normal structures, and recurrence of pain or symptoms - Will schedule for surgery: right ring finger trigger release Author Christie Jensen [facility] CenterAuthoredOctmon[facility] 2024 9:50amDiscussed the physical, mental, and social aspects of nicotine addiction. Discussed the health risks of smoking as well as the short-term and long-term benefits of cessation. Patient is aware that success is dependent upon motivation and effort put forth in making lifestyle changes in addition to counseling and NRT/pharmaceutical intervention. Encouraged to inform family and friends that they desire to stop smoking and ask for their support. Smoking cessation packet given to patient and appropriate pages reviewed today. Patient is currently in the [Precontemplation unwilling to consider a quit attempt] Current motivator is orthopedic intervention Initial Weight 278 pounds Consultation date: 12/21/2024 Start Chantix. Advised that if he has side effects particularly vivid or scary dreams he should continue with the 1 tab in the morning. If he continues to have side effects contact provider. Plan low and slow titration Avoid nicotine replacement therapy while on Chantix He has opted to try a slower weaning process with a goal of 50% reduction each month. Her goal is to reduce use down to 1 pack/day by mid January Work on changing up routine disassociating coffee and other activities with a smoking habit. Of note BP is on the lower end of normal today but patient denies signs or symptoms of hypotension appears steady on feet with cane. Reports has other provider is titrating medication for blood pressure at this time Plan 1. After discussion of smoking cessation aids patient desires to use Chantix. Informed of the mechanism of action and how to correctly use. Reinforced the need for counseling in addition to help improve outcome. Patient verbalizes understanding and agrees with plan of care. Follow-up in 2 to 4 weeks. 2. - Quit-Now ( ) recommended as additional layer of support. A free service for counseling and may provide NRT free every 2 weeks via [employer]. Offered other online resources such as www.smokefree.gov 3. Changing routine is of upmost importance to break cycle of habit on autopilot. 4. Patient is to use smoking log to help identify when and where they smoke in addition to their mood to help identify patterns 5. Patient is to prepare for a quit day by delaying urge to smoke for 10 minutes/skipping 1 cigarette. Patient is also to prepare by having a plan in place for distractions exercise/game/smoke-free places/hobbies/friend . Patient is also to start gathering items to help deal with cravings including water bottle/healthy snacks/mint/gum/straw/toothpicks. 6. Discussed signs and symptoms of nicotine withdrawal including insomnia, irritability, headaches, cough, dry mouth, hunger, etc. Medication and/or NRT can assist in reducing withdrawal symptoms and improve success rate 7. Candidate for low-dose CT scan for lung malignancy: Yes 69 pack years history. Patient is unsure if this has been addressed previously. Will discuss AAA screening as well at follow-up Patient admits to pain which is likely exacerbated/secondary to cigarette smoking which can affect bone blood flow and healing. Treat with exercise incorporating low impact exercises or modifications as needed. Endless types of exercise with online videos or using own body weight, consider little to no impact if significant pain. Consider swimming as feasible. Slowly increase activity over time to reach goal of 150 min throughout the week. Each pound of weight loss is exponentially beneficial for weight bearing joints. History of ID. Informed him that smoking cessation can be one of the most single important controllable risk factors he can work on to reduce subsequent ID or cardiovascular disease. Discussed how both large vessel and small vessel disease can be affected by cigarette nicotine dependence. Future Tests Future scheduled test information is unavailable Pending Tests Pending diagnostic test information is unavailable Future Visits Future appointment information is unavailable Future Procedures Procedure Name Ordered Date Scheduled Date Discharge Order February 11, 2025 3:04pm Decem crystal 2024 3:04pm Future Medications Future medication information is unavailable Patient Instructions Instruction Admit Date Know your Meds February 11, 2025 12:59pm Hospital Discharge Instructions Additional Instructions DR. JAIME'S POST OP INSTRUCTIONS Take prescribed pain medication as directed and as needed to control your post- operative pain. -In addition to the prescribed medication, you may take ibuprofen (Advil, Motrin) or naproxen (Aleve/Naprosyn) to help control pain and decrease swelling. -DO NOT TAKE ibuprofen/Naprosyn/naproxen if you have a history of bleeding ulcer, are taking anticoagulation medication (Coumadin/warfarin, Eliquis, Xarelto, Plavix, Lovenox), if you have had a history of gastric bypass surgery, or if you have a history of kidney disease. Elevate the operative area as much as possible, using at least 2-3 pillows, keeping the hand higher than the elbow. Keep ice at the operative area as much as possible. It takes longer than 20 minutes for the cold to penetrate the bandages, so leave the ice bag or cold pack in place until the ice melts, then it is time to change to a fresh ice bag or cold pack. -Elevation and ice help to lessen the swelling post-operatively which helps to lessen pain so that you will need to take less pain medication, as well as maintaining better range of motion and function of your hand (more swelling, less movement). You may wiggle your fingers, bending, flexing, and move them to decrease stiffness. You may use your hands for light activities of 2-5 lbs. This is lifting your coffee cup, using your silverware, and typing on a computer or tablet. -Do NOT perform strenuous lifting or lift greater than 10 lbs until 4-6 weeks after surgery to minimize exacerbation of pain at the surgery site. You may remove your dressing on the third day after surgery, and get your surgical incision wet in the shower or when washing your hands with soap and water. -DO NOT soak your incision or submerge it under standing water such as dishwater or bathtub. -DO NOT apply perfumed moisturizers or ointments unless otherwise instructed by your physician. -Washing your incision gently with soap and water on a daily basis, helps to rid your skin of bacteria and decrease the risk of wound infections. -After showering or washing your hands, pat the incision dry, and keep covered with a clean dry gauze bandage. -You may apply Bacitracin, Neosporin, or generic triple antibiotic ointment to incision if you would like Take vitamin C 500 mg by mouth daily to help skin and incision heal Take antibiotics as directed to decrease risk of infection after surgery
--- NOTE | 2025-02-17 10:43 | PM.CN ---
Consult Note: HPI Data of Consult Patient: known to practice within the last 3 years Consult date: 02/17/25 Requesting Physician: Priscilla Elkisn NP Primary Care Provider: HUNTER ROBINS Consult Narrative Reason for consult: low back pain, hip pain Narrative: 59yom who presents for assessment of low back and left hip pain. continues to use norco as needed and zonegran 100mg BID. denies adverse med side effects. denies falls/injury since last visit, continues to utilze cane. pain today 5/10 in low back, right hip and groin, stasming tightness at times increasing to 10/10 with standing, walking, bending, stairs, activity. not currently following with orthopedics for left hip pain as he has not stopped smoking. cc:: CC: Priscilla Elkins NP Review of Systems ROS Musculoskeletal Reports: back pain and joint pain PFSH [facility] Medical History (Updated 02/17/25 @ 10:45 by Priscilla Elkins NP) Osteoarthritis ?M19.90 - Unspecified osteoarthritis, unspecified site (ICD-10) Enlarged prostate ?N40.0 - Benign prostatic hyperplasia without lower urinary tract symptoms (ICD-10) Obstructive sleep apnea on CPAP ?G47.33 - Obstructive sleep apnea (adult) (pediatric) (ICD-10) Sleep apnea ?G47.30 - Sleep apnea, unspecified (ICD-10) History of heart attack ?I25.2 - Old myocardial infarction (ICD-10) Surgical History History of cardiac cath ?Z98.890 - Other specified postprocedural states (ICD-10) History of surgery on lower extremity ?Z98.890 - Other specified postprocedural states (ICD-10) Meds Home Medications and Allergies Home Medications ?Medication ?Instructions ?Recorded ?Confirmed ?Type atorvastatin 80 mg tablet 80 mg PO BEDTIME 08/14/22 10/22/23 History divalproex 125 mg tablet,delayed 125 mg PO TID 08/14/22 10/22/23 History release lisinopril 20 1 tab PO DAILY 08/14/22 10/22/23 History mg-hydrochlorothiazide 12.5 mg tablet metoprolol tartrate 25 mg tablet 25 mg PO BID 08/14/22 10/22/23 History tamsulosin 0.4 mg capsule (Flomax) 0.4 mg PO DAILY 10/22/23 10/22/23 History zonisamide 100 mg capsule 100 mg PO BID #180 caps 04/30/24 Rx (Zonegran) zonisamide 50 mg capsule 50 mg PO BID #60 caps 05/21/24 Rx zonisamide 50 mg capsule 150 mg (3 x 50 mg) PO BID #180 caps 07/20/24 Rx cyclobenzaprine 10 mg tablet 10 mg PO TID PRN muscle spasm #90 09/09/24 Rx tabs zonisamide 100 mg capsule 100 mg PO TID #90 caps 09/09/24 Rx (Zonegran) hydrocodone 5 mg-acetaminophen 325 1 tab PO BID PRN pain #60 tabs 12/10/24 Rx mg tablet hydrocodone 5 mg-acetaminophen 325 1 tab PO BID PRN pain #60 tabs 01/13/25 Rx mg tablet hydrocodone 5 mg-acetaminophen 325 1 tab PO BID PRN pain #60 tabs 02/09/25 Rx mg tablet naloxone 4 mg/actuation nasal 4 mg intranasal Q3M PRN opioid 02/10/25 Rx spray (Narcan) overdose #2 ea Allergies Allergy/AdvReac Type Severity Reaction Status Date / Time amoxicillin AdvReac Mild Nausea Verified 10/22/23 08:11 prednisone AdvReac Mild Nausea Verified 10/22/23 08:11 Exam Constitutional Documenting provider has reviewed patient's vital signs: yes Common normals: no apparent distress, oriented x3 and alert General appearance: cooperative Orientation/consciousness: Yes awake, Yes oriented to person, Yes oriented to place and Yes oriented to time HENOK Common normals: normocephalic, hearing grossly normal bilaterally and moist oral mucous membranes Head and scalp: normocephalic Eye Common normals: PERRL Pupil: PERRL Neck & C-Spine Common normals: full ROM General: normal visual inspection Chest Common normals: inspection of chest normal Respiratory Common normals: normal respiratory effort, no retractions and no use of accessory muscles Effort & inspection: able to speak in complete sentences and symmetric chest movement Back & Pelvis Lumbar spine/lower back: pain with ROM, lumbar spinal tenderness and straight leg raise positive right Other: increased low back pain L2-5 with forward flexion, strength 4/5 in RLE and 5/5 in LLE Extremity Common normals: normal capillary refill and no pedal edema Other: Positive internal and external rotation of left hip muscle strength 5/5 bilat LE with intact sensation Neuro Common normals: oriented x3 Sensorium/orientation: alert Gait (neuro): assistive device used cane Motor exam: strength 5/5 throughout and no movement abnormalities noted Psych Common normals: mental status grossly normal, thought process normal, cooperative, affect normal, speech normal and activity/motor behavior normal Speech: normal speech Thought process: normal thought process Results Additional Findings Additional findings: If on a controlled substance or opioids, I have checked an [place]AR[place] report on this patient and there are no aberrancies noted in the prescribing history.??If on a controlled substance or opioid a drug screen was completed and reviewed within the last year, and if there has not been a drug screen completed we ordered one today to monitor higher risk, state monitored pain medication use. As part of providing excellent, safe, comprehensive care, the following was completed at our patient's visit: 1. A medication reconciliation and review to ensure accurate knowledge of current/active medications, including asking our patients to inform us about any [id number]-[id number] medications or herbal remedies/nutritional supplements/alternative remedies. 2. A review to specifically ensure our patients have had annual screening for screening for depression, screening for tobacco use, and screening for unhealthy alcohol use. For concerning screenings had a discussion with the patient, provided patient education, and recommended follow-up with primary care provider when appropriate. If patient noted with a risk of falling, they received education on strength, gait, and balance training to prevent future risk of falling. Portions of this note may have been carried over from the previous visit and updated as appropriate. Please note this office utilizes paper charting in addition to the electronic medical record. A list of current medications, vitals, and PMH is available there as the clinical staff outside of myself do not have access to [employer] charting during the clinic day operations. As part of providing quality comprehensive care the current medications, vitals, and PMH were reviewed in the paper chart. Assessment and Plan Assessment and Plan (1) Degenerative disc disease (DDD) of lumbar region with axial back pain without leg pain: (2) Lumbar spondylosis: (3) Chronic prescription opiate use: Assessment and Plan: I feel these medications are improving the patient's quality of life and allow them to tolerate activities of daily living as well as participate in recreational activity.? The patient does not report intolerable side effects. The patient is NOT opioid naive and non-pharmacologic and non-opioid treatment has failed to significantly relieve the patient's pain and improve functionality. The patient has a diagnosis that is related to a somatic or visceral pain etiology. ? ?? I reviewed with the patient the potential risks and side effects with the use of? opioid medications including but not limited to respiratory depression,? sedation, and even . Within the last 12 months I have verified the patient has access to naloxone should? these effects occur. The patient was advised to let? their family know they had Naloxone in case they would need to administer? the medication. I advised the patient to avoid the use of any other? sedation substances including alcohol, THC, and benzodiazepines while? taking opioid medications due to the risk of compounding side effects and? detrimental outcomes. within the last 12 months I have reviewed the SPORTS ANALYST, pain treatment agreement and urine drug screen.? ?? A drug screen was completed within the last year, and no aberrancies were noted regarding their use of controlled substances. The patient understands they are subject to the terms and conditions of the pain contract that they have signed. ? ?? I have checked an OARRS report on this patient today and there are no aberrancies noted in the prescribing history.? (4) Osteoarthritis, hip, bilateral: Plan The patient has had over 3 months of moderate to severe low back pain with functional impairment and inadequate response to conservative care including NSAIDS (unless there are contraindication such as concurrent blood thinners), multiple oral or topical pain medications, and home exercise program/physical therapy.? Patient has completed >6 weeks of guided home exercise program and/or formal physical therapy program without relief of their symptoms.? The Oswestry Disability Index was completed, and the patient scored a 52%.? update lumbar xray with flexion and lumbar MRI without contrast to assess chronic moderate to severe low back pain, lumbar DDD, and lumbar spondylosis in consideratsion of interventional therapy vs NS consultation continue zonegran 100mg BID continue flexeril 10mg tid prn pain/spasms continue norco 5-325mg BID PRN moderate to severe pain f/u once imaging complete to review plan of care
== END 2025-02-17 10:18 | disposition home or self-care (01) ==
LOC: PM 10:18
PROVIDERS: PCP Nurse Practitioner Family; Visit Provider Nurse Practitioner
DX: M51.360 Other intervertebral disc degeneration, lumbar region with discogenic back pain only (principal); M47.816 Spondylosis without myelopathy or radiculopathy, lumbar region; Z79.891 Long term (current) use of opiate analgesic; M16.0 Bilateral primary osteoarthritis of hip; M41.86 Other forms of scoliosis, lumbar region
CPT/HCPCS: 72114; G0463

== ENCOUNTER 2025-02-17 12:43 | Outpatient (OUT) | payer MEDICARE, SELFPAY ==
--- OUTSIDE RECORDS SUMMARY | 2025-02-17 12:47 | XMS_ITS | Continuity of Care Document ---
Author Organization [facility] Address [address] [place] [address] Phone Care Team Providers Care Hooker Off Name Role Phone Colten Parra Primary Care Provider Encounters DateTypeDepartmentCare RqykXrtfbzwqvvj98/25/2025Refill at [facility] [place] [facility] [address] [place] [phone] Rubia Verduzco LPN Primary hypertension (Primary Dx)08/21/2024Telephone at [facility] [address] [place] [phone] Vanessa Ambriz LPN Error (VOID this visit)08/21/20241171Fxxeyx79/20/2025 9:45 AM EDTOffice Visit at [facility] [place] [facility] [address] [place] [phone] Jean Claude Stacy MD Atherosclerosis of [place] coronary artery of [place] heart without angina pectoris; Medication course changed; Primary hypertension; Mixed hyperlipidemia; Palpitations; Current every day smoker; Sleep apnea with use of continuous positive airway pressure (CPAP); BMI 35.0-35.9,adult08/17/2024Scanned Document [facility] [address] [place] [address] Scanning, Generic Provider 03/24/2024Refill at [facility] [place] [facility] [address] [place] [address] Vanessa Ambriz LPN Primary hypertension; Mixed hyperlipidemia; Shortness of breath; Yqebfilvwdxz51/13/2025Refill at [facility] [address] [facility] [address] [place] [address] Jean Claude Stacy MD Primary muijzbdaebvc54/05/2025Refill at [facility] [address] [phone] Jean Claude Stacy MD Primary hypertension; Hnkzqipkxnwo29/20/5784Knifmp48/20/2024 1:15 PM ESTOffice Visit at [facility] [address] [phone] Jean Claude Stacy MD Shortness of breath; Encounter to discuss test results; History of PTCA; Mixed hyperlipidemia; Primary hypertension; Current every day smoker; BMI 37.0-37.9, adult; Medication course changed; Hypertension, unspecified type; Atherosclerosis of [place] coronary artery of [place] heart without angina pectoris; Other hyperlipidemia; Sleep apnea with use of continuous positive airway pressure (CPAP); History of ST elevation myocardial infarction (STEMI); BMI 35.0-35.9,adult01/09/2024Scanned [facility] [address] [place] [phone] Scanning, Generic Provider 01/09/2024Orders Only [facility] [address] [place] [address] Leonid Morrissey DO 01/07/2024Telephone at [facility] [address] [facility] [address] [place] [address] Jean Claude Stacy MD 01/06/20245407Tdnxyp96/04/2024 3:15 PM ESTOffice Visit at [facility] [address] [phone] Jean Claude Stacy MD Coronary artery disease involving [place] coronary artery of [place] heart with unstable angina pectoris (Multi) (Primary Dx); Encounter to discuss test results; Shortness of breath; History of PTCA; History of ST elevation myocardial infarction (STEMI); Primary hypertension; Other hyperlipidemia; Palpitations; Acute cough; Sleep apnea with use of continuous positive airway pressure (CPAP); BMI 37.0-37.9, adult; Current every day smoker; Fatigue, unspecified type; Medication course changed; Chest pain, unspecified type; Abnormal nuclear stress test12/24/20237005Dlyszn43/22/2024 3:00 PM EDTAncillary Procedure [facility] [address] [facility] [address] [place] [address] Hypertension, unspecified type; Atherosclerosis of [place] coronary artery of [place] heart without angina pectoris; Current every day smoker; Other hyperlipidemia; Palpitations; Unstable angina pectoris (Multi); Sleep apnea with use of continuous positive airway pressure (CPAP); History of ST elevation myocardial infarction (STEMI); History of PTCA; Shortness of breath; Acute cough; BMI 35.0-35.9,adult12/24/2023 2:30 PM EDTAncillary Procedure [address] [address] Hypertension, unspecified type; Atherosclerosis of [place] coronary artery of [place] heart without angina pectoris; Current every day smoker; Other hyperlipidemia; Palpitations; Unstable angina pectoris (Multi); Sleep apnea with use of continuous positive airway pressure (CPAP); History of ST elevation myocardial infarction (STEMI); History of PTCA; Shortness of breath; Acute cough; BMI 35.0-35.9,adult; Chest pain, uspljpzhxjs25/22/2024 2:00 PM EDTAncillary Procedure [facility] [address] [address] 12/24/2023 1:30 PM EDTAncillary Procedure [address] [address] 12/24/2023 1:00 PM EDTAncillary Procedure [address] [address] Primary hypertension (Primary Dx); Atherosclerosis of [place] coronary artery of [place] heart with stable angina pectoris; Current every day fwgpqc0512/24/2023 12:30 PM EDTAncillary Procedure [facility] [address] [facility] [address] [place] [address] 12/24/2023 12:00 PM EDTAncillary Procedure [facility] [address] [facility] [address] [place] [address] Hypertension, unspecified type; Atherosclerosis of [place] coronary artery of [place] heart without angina pectoris; Current every day smoker; Other hyperlipidemia; Palpitations; Unstable angina pectoris (Multi); Sleep apnea with use of continuous positive airway pressure (CPAP); History of ST elevation myocardial infarction (STEMI); History of PTCA; Shortness of breath; Acute cough; BMI 35.0-35.9,adult12/13/20232758Olfvtn19/11/2024 11:30 AM EDTOffice Visit [place] [address] [facility] [address] [place] [address] Jose Cuevas MD Hypertension, unspecified type; Atherosclerosis of [place] coronary artery of [place] heart without angina pectoris; Current every day smoker; Other hyperlipidemia; Palpitations; Unstable angina pectoris (Multi); Sleep apnea with use of continuous positive airway pressure (CPAP); History of ST elevation myocardial infarction (STEMI); History of PTCA; Shortness of breath; Acute cough; BMI 35.0-35.9,adult12/11/2023Telephone [facility] [address] [place] [phone] Vanessa Ambriz LPN soontevin OV08/28/20231441Biqmte01/26/2024 2:00 PM EDTOffice Visit [facility] [address] [address] Leonid Figueredo MD Atherosclerosis of [place] coronary artery of [place] heart without angina pectoris (Primary Dx); History of PTCA; Mixed hyperlipidemia; Primary hypertension; Current every day smoker; BMI 35.0-35.9,adult04/02/2023bstract [facility] [address] [place] [phone] ProviderSakshi MD 4Ref[facility] [address] [facility] [address] [place] [phone] Leonid Figueredo MD Primary ykbfitysbybo44/25/2023Legacy Encounter DOCTOR OFFICE LEGACY [address] Birdie Smith, ELECTRICAL CONTROLS ENGINEER-INSURANCE VERIFICATION REPRESENTATIVE 03/08/2022Legacy Encounter [facility] [address] [place] [address] Conversion, Touchworks 01/08/2022Legacy Encounter [facility] [address] [place] [address] Conversion, Touchworks 10/19/2021Legacy Encounter [facility] [address] [place] [address] Leonid Figueredo MD 10/19/2021Legacy Encounter DOCTOR OFFICE LEGACY [address] Leonid Figueredo MD 08/28/2021Legacy Encounter [facility] [address] [place] [address] Conversion, Touchworks 08/24/2021Legacy Encounter [facility] [address] [place] [address] Conversion, Touchworks 08/23/2021Legacy Encounter [facility] [address] [place] [address] Leonid Figueredo MD 06/13/2021Legacy Encounter [facility] [address] [place] [address] Conversion, Touchworks 05/31/2021canned Document [facility] LEGACY [address] [place] [address] Conversion, Onbase 05/26/2021Legacy Encounter [facility] [address] [place] [address] Leonid Figueredo MD 05/26/2021Legacy Encounter DOCTOR OFFICE LEGACY [address] Leonid Figueredo MD 12/27/2020egacy Encounter [facility] [address] [place] [address] Kalie Lebron, ELECTRICAL CONTROLS ENGINEER-INSURANCE VERIFICATION REPRESENTATIVE 12/27/2020 Encounter DOCTOR OFFICE LEGACY [address] Jean Claude Stacy MD 12/23/2020 Encounter [facility] [address] Jean Claude Stacy MD Atherosclerotic heart disease of [place] coronary artery without angina pectoris 11/30/2020canned Document [facility] [address] [place] [address] Conversion, Onbase 11/29/2020canned Document [facility] [address] [place] [address] Conversion, Onbase 11/21/2020canned Document [facility] [address] [place] [address] Conversion, Onbase 11/20/2020canned Document [facility] LEGACY [address] [place] [address] Conversion, Onbase 11/18/2020 7:17 PM EDT - 11/20/2020 4:00 PM EDTHospital Encounter [facility] [address] [address] elevation (STEMI) myocardial infarction involving other coronary artery of inferior wall (Multi)(Primary Dx) Discharge Disposition: Home11/19/2020 Encounter [facility] [address] [place] [address] Jerry Bronson MD 11/19/2020canned Document [facility] LEGACY [address] [place] [address] Conversion, Onbase 11/18/2020canned Document [facility] [address] [place] [address] Conversion, Onbase 11/18/2020canned Document [facility] LEGACY [address] [place] [address] Conversion, Onbase 11/18/2020egacy Encounter [facility] [address] [place] [address] Jerry Bronson MD 11/18/2020egacy Encounter [facility] [address] [place] [address] Jean Claude Stacy MD 11/18/2020egacy Encounter [facility] [address] [place] [address] Leia Stearns, ELECTRICAL CONTROLS ENGINEER-INSURANCE VERIFICATION REPRESENTATIVE 11/18/2020canned Document [facility] LEGACY [address] [place] [address] Conversion, Onbase 11/18/2020canned Document [facility] LEGAC[facility] [address] [place] [address] Conversion, Onbase 11/18/2020canned Document [facility] LEGACY [address] [place] [address] Conversion, Onbase 11/18/2020canned Document [facility] LEGACY [address] [place] [address] Conversion, Onbase 11/18/2020egacy Encounter [facility] [address] [place] [address] Jerry Bronson MD 11/18/2020ega Encounter [facility] [address] [place] [address] Conversion, Syngo Allergies Active AllergyReactionsCriticalityNoted DateCommentsAmoxicillinNausea/vomiting 08/21/20239143CgkpnsviccEzwcixkthdykJnm08/19/2024Isosorbide MononitrateHeadacheHigh 01/06/2024 Medications MedicationSigDispense QuantityRefillsLast FilledStart DateEnd DateStatus baclofen (Lioresal) 10 mg tablet Take 3 tablets (30 mg) by mouth once daily as needed for muscle spasms. 09/14/2022ctive divalproex (Depakote) 125 mg EC tablet Take 1 tablet (125 mg) by mouth once daily.01/03/2023ctive HYDROcodone-acetaminophen ([place]) 5-325 mg tablet Take 1 tablet by mouth 2 times a day as needed.03/20/2023ctive tamsulosin (Flomax) 0.4 mg 24 hr capsule Take 1 capsule (0.4 mg) by mouth 2 times a day.09/09/2023ctive finasteride (Proscar) 5 mg tablet Take 1 tablet (5 mg) by mouth once daily.09/09/2023ctive nitroglycerin (Nitrostat) 0.4 mg SL tablet Indications:Hypertension, unspecified type,Atherosclerosis of [place] coronary artery of [place] heart without angina pectoris,Current every day smoker,Other hyperlipidemia,Palpitations,Unstable angina pectoris (Multi),Sleep apnea with use of continuous positive airway pressure (CPAP),History of ST elevation myocardial infarction (STEMI),History of PTCA,Shortness of breath,Acute cough, BMI 35.0-35.9,adultPlace 1 tablet (0.4 mg) under the tongue every 5 minutes if needed for chest pain. 30 tablet 4Active cyclobenzaprine (Flexeril) 10 mg tablet Take 1 tablet (10 mg) by mouth 3 times a day.5Active zonisamide (Zonegran) 50 mg capsule Take 2 capsules (100 mg) by mouth 2 times a day.5Active spironolactone (Aldactone) 25 mg tablet Indications:Primary hypertensionTake 1 tablet (25 mg) by mouth once daily. 30 tablet 6:52 PM EST/ctive lisinopril 20 mg tablet Indications:Primary hypertensionTake 1 tablet (20 mg) by mouth once daily. 90 tablet 1:19 PM EDTctive atorvastatin (Lipitor) 80 mg tablet Indications:Mixed hyperlipidemiaTake 1 tablet (80 mg) by mouth once daily. 90 tablet 3:18 PM EDT08/21//ctive lisinopriL-hydrochlorothiazide 20-12.5 mg tablet Indications:Primary hypertensionTake 1 tablet by mouth once daily. 90 tablet ctive aspirin 81 mg EC tablet Take 1 tablet (81 mg) by mouth once daily.Active magnesium oxide (Mag-Ox) 400 mg tablet Take 1 tablet (400 mg) by mouth once daily.Active metoprolol tartrate (Lopressor) 25 mg tablet Indications:Primary hypertensionTake 1 tablet (25 mg) by mouth 2 times a day. 180 tablet 02/01/2025 6:24 PM EST5103/28/2025ctive metoprolol tartrate (Lopressor) 25 mg tablet Take 1 tablet (25 mg) by mouth 2 times a day.01/26/2025Discontinued(Reorder) Active Problems ProblemNoted DateDiagnosed DateEncounter to discuss test fammkqc8901/06/2024 Vipmyil7901/06/2024Medication course obzrrfp9601/06/20245497Sdccsajoazcy36/11/2024Chest pain12/13/2023Sleep apnea with use of continuous positive airway pressure (CPAP) 12/13/2023Shortness of fftdpu4512/13/20230067Rnfvq33/11/2024MI 35.0-35.9,adult 08/28/2023AD (coronary atherosclerotic disease)04/02/2023History of PTCA 04/02/2023History of ST elevation myocardial infarction (STEMI)04/02/2023 Lxwddvjzvpod18/30/7600Nqxhzvnymtft55/30/2024urrent every day ndadtf0404/02/2023 Immunizations ImmunizationAdministration DatesNext DueInfluenza, injectable, quadrivalent 01/21/2019,01/02/2019 Family History Medical HistoryRelationNameCommentsAnginaFatherCOPDFatherCoronary artery disease FatherHeart diseaseFatherpacemakerFatherNo Known ProblemsMotherRelationName StatusCommentsFatherMother Social History Tobacco UseTypesPacks/DayYears UsedDateSmoking Tobacco: Never AssessedSex and Gender InformationValueDate RecordedSex Assigned at RqaubRmah12/09/2024 1:53 PM EDTLegal UkxVteb48/26/2022 9:05 AM ESTGender FvjmonxaLnph09/09/2024 1:53 PM EDT Sexual ZyvknxmvpbeFfbldejo31/09/2024 1:53 PM EDT Last Filed Vital Signs Vital SignReadingTime TakenCommentsBlood Bqcbmhrj436/6406 9:49 AM EDT Fyrjn9390 9:49 AM EDTTemperature--Respiratory Rate--Oxygen Saturation-- Inhaled Oxygen Concentration--Qsejip264 kg (280 lb)08/21/2024 9:49 AM EDTHeight 188 cm (6' 2 )08/21/2024 9:49 AM EDTBody Mass Index35.95008/21/2024 9:49 AM EDT Plan of Treatment DateTypeDepartmentCare Team (Latest Contact Info)Pxzvsjzxcmw35/22/2025 11:00 AM ESTOffice Visit at [facility] [address] [facility] [address] [place] [address] Jean Claude Stacy MD [address] [facility] [address] [place] [address] Procedures Procedure NamePriorityDate/TimeAssociated DiagnosisCommentsOUTSIDE LAB SCAN 08/17/2024 ELECTROCARDIOGRAM 12 LEAD01/09/2024 12:56 PM EST NON-[facility] HIE COAGULATION PHRJJUEEeaxrwl32/07/2024 12:40 PM EST NON-[facility] HIE B-TYPE NATRIURETIC RWMUYUAFumknqs35/07/2024 12:40 PM EST [facility] HIE LIPID RVJMPPnoyxiw77/07/2024 12:40 PM EST [facility] HIE LPWZNAJLQENaifkhu69/07/2024 12:40 PM EST [facility] HIE BLOOD UREA BLRQMBIPGpeblkg52/07/2024 12:40 PM EST [facility] HIE QYQVYGUCOBYNImgdprg71/07/2024 12:40 PM EST NON-[facility] HIE COMPLETE BLOOD COUNT AUTO VMISHscivok76/07/2024 12:40 PM EST TRANSTHORACIC ECHO (TTE) COMPLETE WITH CMNARRPNOipmxmm72/22/2024 3:31 PM EDT Hypertension, unspecified type Atherosclerosis of [place] coronary artery of [place] heart without angina pectoris Current every day smoker Other hyperlipidemia Palpitations Unstable angina pectoris (Multi) Sleep apnea with use of continuous positive airway pressure (CPAP) History of ST elevation myocardial infarction (STEMI) History of PTCA Shortness of breath Acute cough BMI 35.0-35.9,adult Chest pain, unspecified 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 - [employer]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 [employer]IVER, 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 UZKQWrswvch05/22/2024 3:08 PM EDT Hypertension, unspecified type Atherosclerosis of [place] coronary artery of [place] heart without angina pectoris Current every day smoker Other hyperlipidemia Palpitations Unstable angina pectoris (Multi) Sleep apnea with use of continuous positive airway pressure (CPAP) History of ST elevation myocardial infarction (STEMI) History of PTCA Shortness of breath Acute cough BMI 35.0-35.9,adult STRESS TEST, REGADENOSON W MYOCARDIAL PERFUSION SPECT (MULTI STUDY)Routine 12/24/2023 2:20 PM EDT Hypertension, unspecified type Atherosclerosis of [place] coronary artery of [place] heart without angina pectoris Current every day smoker Other hyperlipidemia Palpitations Unstable angina pectoris (Multi) Sleep apnea with use of continuous positive airway pressure (CPAP) History of ST elevation myocardial infarction (STEMI) History of PTCA Shortness of breath Acute cough BMI 35.0-35.9,adult ECG 12-UBRWGfovsax43/11/2024 11:30 AM EDT Hypertension, unspecified type Atherosclerosis of [place] coronary artery of [place] heart without angina pectoris Current every day smoker Other hyperlipidemia Palpitations Unstable angina pectoris (Multi) Sleep apnea with use of continuous positive airway pressure (CPAP) History of ST elevation myocardial infarction (STEMI) History of PTCA Shortness of breath Acute cough BMI 35.0-35.9,adult NYTSZKHUISGRWH01/22/2021 YIXZNMDEUVIKQJItqkwax80/22/2021 CARDIAC STRESS TEST12/23/2020 CARDIAC STRESS ILCNLmkygwt21/22/2021 ELECTROCARDIOGRAM RHYTHM STRIP11/29/2020 TROPONIN I DATA AFJZORJFWZTbnfmeb29/18/2021 9:03 PM EDT ELECTROCARDIOGRAM 12 MUGURbcvvao08/18/2021 2:48 PM EDT HEPARIN WDEBSHsddojl32/18/2021 2:38 PM EDT TROPONIN I DATA LGJLPWIPBWRtruovt46/18/2021 1:00 PM EDT HEPARIN JTOXZClyqnpd57/18/2021 10:27 AM EDT KOXPrbiepj16/18/2021 5:23 AM EDT TROPONIN I DATA XJNDMBRYJUNxrpkat14/18/2021 5:23 AM EDT BASIC METABOLIC YLMMOEhyzzhn06/18/2021 5:23 AM EDT AWCJFHMKBFslvqfn64/18/2021 5:23 AM EDT HEPARIN HISCGYuitbvq25/18/2021 5:23 AM EDT TROPONIN I DATA HUHXGYMCORQdvawed44/18/2021 12:54 AM EDT PROTIME-CTFPzxogeh75/18/2021 12:53 AM EDT PIUUYbikksy07/18/2021 12:53 AM EDT ELECTROCARDIOGRAM RHYTHM STRIP11/19/2020 ELECTROCARDIOGRAM 12 MEGOKmneukf63/17/2021 10:15 PM EDT ACTIVATED CLOTTING TIME AHIIkwepra22/17/2021 7:41 PM EDT ACTIVATED CLOTTING TIME AYGJotuglv09/17/2021 7:24 PM EDT XR CHEST 1 ATEMZvchwth08/17/2021 7:19 PM EDT SARS-COV-2 PCR, SCREEN CKHNXSTPZVGSMofqmfn43/17/2021 7:18 PM EDT COMPREHENSIVE METABOLIC PXRIDWjsugge20/17/2021 7:17 PM EDT B-TYPE NATRIURETIC QSQQZWIVipwanw20/17/2021 7:17 PM EDT TROPONIN I DATA PKMKYKYEOHOcypyrl41/17/2021 7:17 PM EDT ULUFdgfous37/17/2021 7:17 PM EDT ELECTROCARDIOGRAM 12 LXFPWjfiaey17/17/2021 7:00 PM EDT ADULT EYMEKihojbh76/17/2021 OUTSIDE IMAGING SCAN11/18/2020 Results * OUTSIDE LAB SCAN (08/17/2024) Narrative 08/17/2024 Ordered by an unspecified provider. Authorizing ProviderResult TypeResult StatusGeneric Provider ScanningOUTSIDE SCANFinal Result * Electrocardiogram (01/09/2024 12:56 PM EST) Only the most recent of4 resultswithin the time period is included. Specimen (Source)Anatomical Location / LateralityCollection Method / Volume Collection TimeReceived Time01/09/2024 12:56 PM EST Narrative [facility] - 01/10/2024 11:17 AM EST [facility] ?[facility] [address] [place] ?[address] ? [place] [address] ? Electrocardiograph Report ? Signed ? Patient: Ashok Doss ?MR#: [id number] ?? 79 ? : 1965 ?Acct:[id number] ? Age/Sex: 58 / M ?ADM Date: 11/07/24 ? Loc: CL ?Room: ?Type: DEP SDC ?? Attending Dr: Arabella Morrissey DO ? Ordering Provider: Arabella Morrissey, DO ?? Date of Service: 01/09/2409/25/1255 ?? ECG/ECG 12 lead ECG: left heart cath ? Copies to: ? Test Reason : ?? Blood Pressure : ?? */* ?? mmHG ?? Vent. Rate : ??72 BPM ? Atrial Rate : ??72 BPM ? P-R Int : 150 ms ?QRS Dur : 100 ms ?QT Int : 416 ms ? P-R-T Axes : ??50 ??-3 ??33 degrees ?QTcB Int : 455 ms ? Normal sinus rhythm ?? Incomplete right bundle branch block ?? Borderline ECG ?? No previous ECGs available ?? Confirmed by JODIE CASTANON MD, FACC ([id number]) on 01/10/2024 11:17:15 AM ? Referred By: ?Electronically Signed By: JODIE CASTANON MD, FACC ? Transcribed By: ? MUS ? Signed By ? Jodie Castanon MD, FACC ? 01/10/24 1117 Authorizing ProviderResult TypeResult StatusWilljerilyn Morrissey DOECG ORDERABLES Final ResultPerforming OrganizationAddressCity/State/ZIP CodePhone Number [facility] [address] [place] [address], [place] * (ABNORMAL) [facility] HIE Complete Blood Count Auto Diff (01/09/2024 12:40 PM EST) ComponentValueRef RangeTest MethodAnalysis TimePerformed AtPathologist SignatureNON-UH HIE White Blood Count14.4(H)4.1 - 10.5 10*3/uLCleveland Clinic CtrNON-[facility] HIE Uncorrected WBC14.4(H)4.1 - 10.5 10*3/uL [facility] Red Blood Count4.453.90 - 5.60 [facility] Knvljnmjwr11.013.0 - 17.0 g/dL [facility] Ncnombcgxb83.938.8 - 50.0 %[facility] Mean Corpuscular Yfaxln96.083.5 - 101 fL [facility] Mean Corpuscular Vucbuacajt43.427.5 - 35.2 pgFPremier Health [facility] CtrNON-[facility] HIE Mean Corpuscular HGB Conc34.1 32.5 - 35.6 g/dLLutheran HospitalNON-[facility] HIE Red Cell Distribution Width13.912.0 - 14.8 %[facility] Platelet Count 918148 - 450 10*3/[facility] CtrNON-[facility] HIE Mean Platelet Volume7.06.6 - 10.1 fLCleveland Clinic CtrNON-[facility] HIE Neutrophils % (Auto)59.4. %[facility] Lymphocytes % (Auto)26.8 . %[facility] Monocytes % (Auto)9.9. %[facility] Eosinophils % (Auto)2.7. %[facility] Basophils % (Auto)1.2. %[facility] HIE NRBC%0.10 - 0.5 /100{WBC}[facility] Neutrophils # (Auto)8.6(H)1.8 - 7.7 10*3/[facility]tr[facility]- [facility] HIE Lymphocytes # (Auto)3.91.00 - 4.8 10*3/[facility] NON-[facility] HIE Monocytes # (Auto)1.4(H)0.0 - 0.8 10*3/[facility]tr[facility] HIE Eosinophils # (Auto)0.40.0 - 0.45 10*3/[facility] Basophils # (Auto)0.20.0 - 0.2 10*3/[facility] CtrComment:PERFORMED BY:[facility] [place], [place] [phone] MEDICAL DIRECTORJESUS RUBIO M.D. Specimen (Source)Anatomical Location / LateralityCollection Method / Volume Collection TimeReceived TimeSOUTHWEST[facility] [place] Lab/Micro- Blood ixjmecpr41/07/2024 12:40 PM EST Narrative Authorizing ProviderResult TypeResult StatusWilliam S Ghanshyam DOLAB BLOOD ORDERABLESFinal ResultPerforming OrganizationAddressCity/State/ZIP CodePhone Number [facility] [address] [place] [address], [facility] [address] [place] [id number] * NON-[facility] HIE Blood Urea Nitrogen (01/09/2024 12:40 PM EST)ComponentValueRef RangeTest MethodAnalysis TimePerformed AtPathologist SignatureNON-[facility] Blood Urea Sbnbngds168 - 25 mg/dLCleveland Clinic CtrSpecimen (Source) Anatomical Location / LateralityCollection Method / VolumeCollection Time Received TimeSOU[facility] [place] Lab- Source, Gjlltraaktg93/07/2024 12:40 PM EST Narrative Authorizing ProviderResult TypeResult StatusWilliam S Ghanshyam DOLAB BLOOD ORDERABLESFinal ResultPerforming OrganizationAddressCity/State/ZIP CodePhone Number [facility] [address] [place] [address], [facility] [address] [place] [address] * (ABNORMAL) NON-[facility] HIE Lipid Panel (01/09/2024 12:40 PM EST)ComponentValueRef RangeTest MethodAnalysis TimePerformed AtPathologist SignatureNON- HIE Mnpizmytxwm699(L)140 - 200 mg/dLCleveland Clinic CtrComment:Chol less than 200 mg/dl low risk Chol 201-239 mg/dl borderline risk Chol 240 mg/dl and greater high riskNON- HIE HDL Ycxkrbwflti4332 - 92 mg/dLCleveland Clinic CtrComment:HDL CHOL ATP-III CLASSIFICATION Cardiovascular Risk HDL > or equal to 60 mg/dL LOW HDL < 40 mg/dL HIGHNON- HIE Triglyceride w/Ygeesg6076 - 149 mg/dLCleveland Clinic CtrComment:TRIG ATP III CLASSIFICATION TRIG less than 150 mg/dL Normal TRIG 150-199 mg/dL Borderline high OQTI370-473 mg/dL High TRIG greater than 500 mg/dL Very high Standard traceable to the Center for Disease Conrtrol and Prevention (CDC) test method. NON-[facility] HIE LDL Cholesterol,Mgrhxhusmr067 - 100 mg/dLCleveland Clinic CtrComment:LDL ATP III CLASSIFICATION LDL less than 100 mg/dL Optimal LDL 100- 129 mg/dL Near or above optimal LDL 130-159 mg/dL Borderline high LDL 160-189 mg/dL High LDL greater than 189 mg/dL Very highNON- HIE VLDL QBAYHXGEXDN39 mg/dLCleveland Clinic CtrNON-[facility]ERE Chol/HDL Ratio2.9<5.0[facility] CtrComment:PERFORMED BY:[facility] [facility], [place] [phone] MEDICAL DIRECTORJESUS RUBIO M.D.Specimen (Source)Anatomical Location / LateralityCollection Method / VolumeCollection TimeReceived TimeSOUTHWE[facility] Lab- Source, Dyptspavaux12/07/2024 12:40 PM EST Narrative Authorizing ProviderResult TypeResult StatusWillia Gilda SelfGhanshyamCommunity Hospital BLOOD ORDERABLESFinal ResultPerforming OrganizationAddressCity/State/ZIP CodePhone Number [facility] [address] [place] [address], [facility] [address] [place] [address] * NON-[facility] HIE Electrolytes (01/09/2024 12:40 PM EST)ComponentValueRef RangeTest MethodAnalysis TimePerformed AtPathologist SignatureNON- HIE Olngdm938080 - 145 mmol/LFGlenbeigh HospitalNON-[facility]ERE Potassium4.03.5 - 5.1 mmol/LFGlenbeigh HospitalNON- HIE Ujzqoget28986 - 107 mmol/L [facility] Carbon Awhyxbq26.621.0 - 31.0 mmol/L [facility] HIE Anion Gap12.46.0 - 15.0[facility] CtrSpecimen (Source)Anatomical Location / Laterality Collection Method / VolumeCollection TimeReceived TimeSOUTHWE[facility] Lab- Source, Dghjyuryxdu44/07/2024 12:40 PM EST Narrative Authorizing ProviderResult TypeResult StatusWilliam S Ghanshyam DOLAB BLOOD ORDERABLESFinal ResultPerforming OrganizationAddressCity/State/ZIP CodePhone Number [facility] [address] [place] [address], [facility] [address] [place] [address] * NON-[facility] HIE Creatinine (01/09/2024 12:40 PM EST)ComponentValueRef RangeTest MethodAnalysis TimePerformed AtPathologist SignatureBANNER [facility]- H[facility] Creatinine0.88 0.70 - 1.30 mg/dLLutheran HospitalNONLOVELACE [facility] [place] ESTIMATED GFR>60.0 [facility] Creatinine Clr Calc Iteqturl572.16 [facility] CtrSpecimen (Source)Anatomical Location / LateralityCollection Method / VolumeCollection TimeReceived TimeSOUTHWE[facility] Lab- Source, Jsnqxfwoyui50/07/2024 12:40 PM EST Narrative Authorizing ProviderResult TypeResult StatusWilliam S Ghanshyam DOLAB BLOOD ORDERABLESFinal ResultPerforming OrganizationAddressty/State/ZIP CodePhone Number [facility] [address] [place] [phone], [facility] [address] [place] [phone] * NON-[facility] HIE Coagulation Profile (01/09/2024 12:40 PM EST)ComponentValueRef RangeTest MethodAnalysis TimePerformed AtPathologist SignatureNON- HIE Prothrombin Time11.89.0 - 12.9 [facility] CtrComment:A hematocrit value greater than 55% may lead to inaccurate results in coagulation testing. Patientshaving hematocrit values >55% require a special collection tube for coagulation studies. Please contact the laboratory at [phone] for redraw instructions.NON-[facility] HIE INR1.0[facility] CtrComment:INR Therapeutic Range A) Pre- and Peroperative OAT started two weeks before surgery. NOT HIP SURGERY: 1.5 - 2.5 HIP SURGERY: 2 - 3 B) Primary and secondary prevention of venous THROMBOSIS: 2 - 3 C) Active venous thrombosis, pulmonary embolism and prevention of recurrent venous thrombosis: 2 - 3 D)Prevention of arterial thromboembolism including patients with mechanical heart valves: 3 - 4.5[facility] Partial Thromboplastin Time30.925.1 - 36.5 [facility] CtrComment:A hematocrit value greater than 55% may lead to inaccurate results in coagulation testing. Patientshaving hematocrit values >55% require a special collection tube for coagulation studies. Please contact the laboratory at [phone] for redraw instructions.PERFORMED BY:[place] [address] [place] [place], [place] [phone] MEDICAL DIRECTORJESUS RUBIO M.D. Specimen (Source)Anatomical Location / LateralityCollection Method / Volume Collection TimeReceived TimeSOUTHWEST[facility] [place] Lab- Plasma gvlyftmh79/07/2024 12:40 PM EST Narrative Authorizing ProviderResult TypeResult Oneil VELAZQUEZ BLOOD ORDERABLESFinal ResultPerforming OrganizationAddressCity/State/ZIP CodePhone Number [facility] [address] [place] [address], [facility] [address] [place] [address] * NON- HIE B-Type Natriuretic Peptide (01/09/2024 12:40 PM EST)ComponentValue Ref RangeTest MethodAnalysis TimePerformed AtPathologist SignatureNON- HIE B-Type Natriuretic Dehzyfz67.05 - 100 pg/mLCleveland Clinic Ctr Comment:PERFORMED BY:[place] [address] [place] [place], [place] [phone] MEDICAL DIRECTORJESUS RUBIO M.D.Specimen (Source)Anatomical Location / LateralityCollection Method / VolumeCollection TimeReceived TimeSOUTHWESTERN [facility] [place] Lab- Source, Renhksvxfru94/07/2024 12:40 PM EST Narrative Authorizing ProviderResult TypeResult Jaren GARCIA BLOOD ORDERABLES Final ResultPerforming OrganizationAddressCity/State/ZIP CodePhone Number [facility] [address] [place] [address], [facility] [address] [place] [address] * TRANSTHORACIC ECHO (TTE) COMPLETE WITH CONTRAST (12/24/2023 3:31 PM EDT) ComponentValueRef RangeTest MethodAnalysis TimePerformed AtPathologist SignatureAV mn grad7.0mmHgSYNGOAV pk vel1.70m/sSYNGOLV Biplane EF53%SYNGOLVOT diam2.40cmSYNGOMV E/A ratio0.82SYNGOMV avg E/e' ratio11.10SYNGOLV EF65%SYNGO RVSP37.8poHaPDWWLZSICu3.05cmSYNGOAortic Valve Area by Continuity of Peak Velocity2.59et4NOQJMHJ pk grad11.6mmHgSYNGOAortic Valve Area by Continuity of VTI3.62vs0OVIFIUL A4C EF55.4SYNGOSpecimen (Source)Anatomical Location / LateralityCollection Method / VolumeCollection TimeReceived Time12/24/2023 2:22 PM EDT Narrative SYNGO - 12/26/2023 12:18 PM EDT ?[address], [address] [place] [address] ? TRANSTHORACIC ECHOCARDIOGRAM REPORT Patient Name: ?ASHOK DOSS ? Reading Physician: ?[id number] Jose ?Faith GARCIA, ?FACC Study Date: ?12/24/2023 ? Ordering Provider: ?[id number] JOSE H ?FAITH MRN/PID: ? [id number] ? Fellow: Accession#: ?[id number] ? Nurse: ?Ivonne Gonzalez RN Date of /Age: 5 1965 / 58 years ??Wood Filler: ?Latanya Yadav ?RDCS, RT(R), RDMS, ?RVT Gender: ?M ?Additional Staff: Height: ?187.96 cm ?Admit Date: Weight: ?129.73 kg ?Admission Status: ? Outpatient BSA / BMI: ? 2.53 m2 / 36.72 ?Department Location: ??[facility] ? kg/m2 ?[place] Study Type: ?TRANSTHORACIC ECHO (TTE) COMPLETE Diagnosis/ICD: Chest pain, unspecified-R07.9; Palpitations-R00.2 Indication: ?Chest pain Palpitations CPT Codes: ? Echo Complete w Full Doppler-38593 Patient History: Smoker: ?Current. Pertinent History: CAD, HTN, Hyperlipidemia and SOB. Study Detail: The following Echo studies were performed: 2D, M-Mode, Doppler and ?color flow. Image quality for this study is good. Optison used as ?a contrast agent for endocardial border definition. Total contrast ?used for this procedure was 0.5 mL via [...] normal. There is no indication of pulmonic valveregurgitation. Pericardium: No pericardial effusion noted. Aorta: The [...] study available. QUANTITATIVE DATA SUMMARY: 2D MEASUREMENTS: ? Normal Ranges: Ao Root d: ? 2.80 cm ?? (2.0-3.7cm) LAs: ? 2.90 cm ?? (2.7-4.0cm) RVIDd: ? 4.14 cm ?? (0.9-3.6cm) IVSd: ?0.76 cm ?? (0.6-1.1cm) LVPWd: ? 1.07 cm ?? (0.6-1.1cm) LVIDd: ? 5.05 cm ?? (3.9-5.9cm) LVIDs: ? 2.61 cm LV Mass Index: ?? 69.5 g/m2 LV % FS ?48.3 % AORTA MEASUREMENTS: ? Normal Ranges: Asc Ao, d: ?2.50 cm (2.1-3.4cm) LV SYSTOLIC FUNCTION BY 2D PLANIMETRY (MOD): ? Normal Ranges: EF-A4C View: 55 % (>=55%) EF-A2C View: ?50 % EF-Biplane: ? 53 % EF-Visual: ?65 % LV EF Reported: 65 % LV DIASTOLIC FUNCTION: ? Normal Ranges: MV Peak E: ? 0.91 m/s ?(0.7-1.2 m/s) MV Peak A: ? 1.12 m/s ?(0.42-0.7 m/s) E/A Ratio: ? 0.82 ?(1.0-2.2) MV e' 0.083 m/s (>8.0) MV lateral e' ?0.08 m/s MV medial e' ? 0.08 m/s E/e' Ratio: 11.02 (<8.0) PulmV Sys Poli: ? 69.00 cm/s PulmV Strauss Poli: ?65.60 cm/s PulmV S/D Poli: ? 1.10 PulmV A Revs Poli: ?34.30 cm/s PulmV A Revs Dur: ?123.00 msec MITRAL VALVE: ?Normal Ranges: MV Vmax: 1.19 m/s (<=1.3m/s) MV peak P.7 mmHg (<5mmHg) MV mean P.0 mmHg (<48mmHg) MV DT: ?194 msec (150-240msec) AORTIC VALVE: ?Normal Ranges: AoV Vmax: 1.70 m/s (<=1.7m/s) AoV Peak P.6 mmHg (<20mmHg) AoV Mean PG: ? 7.0 mmHg ??(1.7-11.5mmHg) LVOT Max Poli: 1.10 m/s (<=1.1m/s) AoV VTI: ? 39.90 cm ??(18-25cm) LVOT VTI: ?29.50 cm LVOT Diameter: ? 2.40 cm ?? (1.8-2.4cm) AoV Area, VTI: ? 3.34 cm2 ??(2.5-5.5cm2) AoV Area,Vmax: ? 2.93 cm2 ??(2.5-4.5cm2) AoV Dimensionless Index: 0.74 TRICUSPID VALVE/RVSP: ?Normal Ranges: Peak TR Velocity: ? 2.93 m/s RV Syst Pressure: 37 mmHg (< 30mmHg) PULMONIC VALVE: ?Normal Ranges: PV Max Poli: ? 1.0 m/s ??(0.6-0.9m/s) PV Max PG: ?4.2 mmHg Pulmonary Veins: PulmV A Revs Dur: 123.00 msec PulmV A Revs Poli: 34.30 cm/s PulmV Strauss Poli: ?? 65.60 cm/s PulmV S/D Poli: ?1.10 PulmV Sys Poli: ?69.00 cm/s Lincoln Cuevas MD, [facility] Electronically signed on 12/26/2023 at 12:18:27 PM Final Procedure Note Jose Cuevas MD - 12/26/[address], [address] [place] [id number] TRANSTHORACIC ECHOCARDIOGRAM REPORT Patient Name: ASHOK DOSS Sindy Physician: Viet Truong, [facility] Study Date: 12/24/2023 Ordering Provider: Lincoln CUEVAS MRN/PID: [id number] Fellow: Nurse: Ivonne Coleman Date of /Age: 5 1965 / 58 years Wood Filler: Samir ISBELL, RT(R),RDMS, RVT Gender: M Additional Staff: Height: 187.96 cm Admit Date: Weight: 129.73 kg Admission Status: Outpatient BSA / BMI: 2.53 m2 / 36.72 Department Location: [facility] kg/m2 [place] Study Type: TRANSTHORACIC ECHO (TTE) COMPLETE Diagnosis/ICD: Chest pain, unspecified-R07.9; Palpitations-R00.2 Indication: Chest pain Palpitations CPT Codes: Echo Complete w Full Doppler-83441 Patient History: Smoker: Current. 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 Predominant sinus rhythm with normal heart rate variability. 4 beat short mark of paroxysmal atrial tachycardia only. No atrial fibrillation. No ventricular tachycardia. No symptoms or activity provided. COMMENTS: Clinical correlation is advised. Jose Cuevas MD ??FACC [facility] Cardiology Narrative Jose Cuevas MD - 01/05/2024 7:31 PM EST PROCEDURE: 48 Hour Holter Monitor DATE: 12/24/2023 INDICATION: Palpitations TECHNIQUE / RESULTS: 48-hour Holter monitor was performed with adequate tracings obtained. ?? Average heart rate was 70 bpm. ??Minimum maximal heart rates were 52 beats minute 121 beats minute respectively. ??Predominant rhythm was sinus rhythm with normal heart rate variability. ??Rare isolated APCs. ??Short 4 beat run of paroxysmal atrial tachycardia. ??Sinus tachycardia at extreme. ??No atrial fibrillation. ??Rare isolated PVC. ??No ventricular tachycardia. ??No high-grade AV blocks or pauses. ??No symptoms recorded. Authorizing ProviderResult TypeResult StatusScladan Cuevas [facility] CARDIAC SERVICES PROCEDURESFinal Result * STRESS TEST, [place] W MYOCARDIAL PERFUSION SPECT (MULTI STUDY) (12/24/2023 2:20 PM EDT)Anatomical RegionLateralityModalityNuclear Medicine Specimen (Source)Anatomical Location / LateralityCollection Method / Volume Collection TimeReceived Time12/24/2023 5:15 PM EDT1 5:15 PM EDT Impressions 12/24/2023 5:13 PM EDT Abnormal Lexiscan Myoview cardiac perfusion stress test. Mild apical ischemia possibly ester-infarction by perfusion imaging. Abnormal left ventricular systolic function with moderate apical dyskinesia, ejection fraction 51%. Abnormal resting electrocardiogram as noted. No comparison study available. Clinical correlation is advised.. ? Signed by: Jose Cuevas 12/24/2023 5:13 PM Dictation workstation: ?? [id number] Narrative 12/24/2023 5:13 PM EDT Interpreted By: Jose Cuevas and Christo Dennis STUDY: MYOCARDIAL PERFUSION STRESS TEST WITH LEXISCAN ?? Performing facility: [facility] at [address] Provider: ??Jose Cuevas MD, FACC PCP: ??Colten Parra, DO Supervising provider: ??Jose Cuevas MD, FACC ?? INDICATION: Hypertension, unspecified type; Atherosclerosis of [place] coronary artery of [place] heart without angina pectoris; Current every day smoker; Other hyperlipidemia; Palpitations; Unstable angina pectoris (Multi); Sleep apnea with use of continuous positive airway pressure (CPAP); History of ST elevation myocardial infarction (STEMI); History of PTCA; Shortness of breath; Acute cough; BMI 35.0-35.9,adult. ?? HISTORY: Gender: ??M; Age: ??58 y/o ; Height: ??HT 188 cm cm; Weight: ?? WT 129.729 kg kg. ?? CAD; S/P STEMI; HTN; PALPITATIONS; SOB. ?? Currently smoking. ?? Cardiac catheterization on 2020. ??PTCA on 2020-RCA. ?? COMPARISON: Previous GXT ONLY testing completed [id number], NON DIAGNOSTIC at [facility]. ?? ACCESSION NUMBER(S): [id number] ?? ORDERING CLINICIAN: JOSE CUEVAS ?? TECHNIQUE: ONE DAY protocol. Stress injection: Date:12/24/2023, 33.6 mCi of Myoview IV 20 seconds after rapid injection of Lexiscan. Rest injection: Date: 12/24/2023, 9.2 mCi of Myoview IV at rest. The patient had a rapid injection of 0.4 mg of Lexiscan IV over 10 seconds. Imaging was performed by gated tomographic technique. Reason for Lexiscan: SOB; AMBULATES WITH A CANE; HIP PAIN. ?? STRESS TEST DATA: Resting heart rate was 62 BPM. Resting blood pressure was 152/82 mmHg. Peak blood pressure was 146/76 mmHg. Peak heart rate was 90 BPM. ?? TEST TERMINATED DUE TO: ??Protocol completed. ?? FINDINGS: STRESS TEST RESULTS: ?? Resting electrocardiogram revealed sinus rhythm, poor R-wave anterior progression, low voltage. There were no significant ischemic ECG changes or dysrhythmias. The patient did not have chest pains/symptoms during procedure. There was a normal recovery phase. ?? IMAGING RESULTS: ?? Image quality was good. Rest and stress [...] was no evidence of significant attenuation artifact. ?? Procedure Note Jose Cuevas MD - 10/22/2024 Interpreted By: Jose Cuevas and Christo Dennis STUDY: MYOCARDIAL PERFUSION STRESS TEST WITH LEXISCAN Performing facility: [facility] at [address] [place] [address] [facility] Provider: Jose Cuevas MD, FACC PCP: Colten Parra DO Supervising provider: Jose Cuevas MD, [facility] INDICATION: Hypertension, unspecified type; Atherosclerosis of [place] coronary artery of [place] heart without angina pectoris; Current every day [...] 2020-RCA. COMPARISON: Previous GXT ONLY testing completed [id number], NON DIAGNOSTIC at [facility]. ACCESSION NUMBER(S): [id number] ORDERING CLINICIAN: JOSE CUEVAS TECHNIQUE: ONE DAY [...] Jose Cuevas 12/24/2023 5:13 PM Dictation workstation: [id number] Authorizing ProviderResult TypeResult Lisa Cuevas [facility] STRESS PROCEDURESFinal Result * ECG 12 lead (Clinic Performed) (12/13/2023 11:30 AM EDT)Specimen (Source) Anatomical Location / LateralityCollection Method / VolumeCollection Time Received Time Narrative Jose Cuevas MD - 12/13/2023 12:37 PM EDT Sinus rhythm, nonspecific ST-T wave changes. Rate 76. Authorizing ProviderResult YanethResult Lisa Cuevas MDECG ORDERABLES Final Result * ECHOCARDIOGRAM (12/23/2020) Narrative 12/23/2020 Ordered by an unspecified provider. Authorizing ProviderResult TypeResult StatusOnbase ConversionCV ECHO PROCEDURES Final Result * Echocardiogram (12/23/2020)Specimen (Source)Anatomical Location / Laterality Collection Method / VolumeCollection TimeReceived Time12/23/2020 Narrative [facility] - 12/23/2020 12:00 AM EDT ? [address], [address] [place] [address] ? TRANSTHORACIC ECHOCARDIOGRAM REPORT Patient Name: ? ASHOK Callahan Physician: ?? [id number] Antony Pena MD, ?FACC Study Date: ? 12/23/2020 ?? Referring Physician: [id number] JEAN CLAUDE STACY MRN/PID: ?[id number] ? PCP: ? Colten Parra MD Accession/Order#: [id number] Department Location: [facility] [place] Date of : ?1965 ? Fellow: Gender: ? M ?Nurse: Admit Date: ?Wood Filler: ? Latanya Yadav [facility], ?RT(R), RDMS, RVT Height: ? 187.96 cm ?CC Report to: Weight: ? 119.75 kg ?Study Type: ?Echocardiogram BSA: ?2.45 m2 Diagnosis/ICD: I25.10-Atherosclerotic heart disease of [place] coronary artery ? without angina pectoris; I21.19-ST elevation (STEMI) myocardial ? infarction involving other coronary artery of inferior wall Indication: ?HTN PTCA Procedure/CPT: Echo Complete w Full Doppler-[id number] Study Detail: The following Echo studies were performed: 2D, M-Mode, Doppler and ?color flow. PHYSICIAN INTERPRETATION: Left Ventricle: The left [...] normal. There is no indication of pulmonic valveregurgitation. Pericardium: There is no pericardial effusion noted. [...] for comparison. QUANTITATIVE DATA SUMMARY: 2D MEASUREMENTS: ? Normal Ranges: Ao Root d: ? 3.10 cm ?? (2.0-3.7cm) LAs: ? 3.20 cm ?? (2.7-4.0cm) RVIDd: ? 4.21 cm ?? (0.9-3.6cm) IVSd: ?0.83 cm ?? (0.6-1.1cm) LVPWd: ? 0.71 cm ?? (0.6-1.1cm) LVIDd: ? 4.96 cm ?? (3.9-5.9cm) LVIDs: ? 2.76 cm LV Mass Index: 52.3 g/m2 LV % FS ?44.4 % AORTA MEASUREMENTS: ? Normal Ranges: Asc Ao, d: 2.80 cm (2.1-3.4cm) LV SYSTOLIC FUNCTION BY 2D PLANIMETRY (MOD): ?Normal Ranges: EF-A4C View: 57.1 % (>55%) LV DIASTOLIC FUNCTION: ? Normal Ranges: MV Peak E: ?0.90 m/s (0.7-1.2 m/s) MV Peak A: ?0.99 m/s (0.42-0.7 m/s) E/A Ratio: ?0.91 ? (1.0-2.2) MV lateral e' 0.11 m/s MV medial e' ??0.10 m/s E/e' Ratio: 8.10 (<8.0) MITRAL VALVE: ? Normal Ranges: MV Vmax: 1.06 m/s (<1.3m/s) MV peak P.5 mmHg (<5mmHg) MV mean P.0 mmHg (<48mmHg) AORTIC VALVE: ?Normal Ranges: AoV Vmax: 1.42 m/s (<1.7m/s) AoV Peak P.1 mmHg (<20mmHg) AoV Mean PG: ? 6.0 mmHg (1.7-11.5mmHg) LVOT Max Poli: 1.03 m/s (<1.1m/s) AoV VTI: ? 36.30 cm (18-25cm) LVOT VTI: ?22.70 cm LVOT Diameter: ? 2.10 cm ??(1.8-2.4cm) AoV Area, VTI: ? 2.17 cm2 (2.5-5.5cm2) AoV Area,Vmax: ? 2.51 cm2 (2.5-4.5cm2) AoV Dimensionless Index: 0.63 TRICUSPID VALVE/RVSP: ?Normal Ranges: Peak TR Velocity: 2.59 m/s RV Syst Pressure: 29.8 mmHg (< 30mmHg) PULMONIC VALVE: ? Normal Ranges: PV Max Poli: 0.8 m/s ??(0.6-0.9m/s) PV Max PG: ??2.5 mmHg [id number] Antony Pena MD, [facility] Electronically signed on 12/23/2020 at 11:56:24 AM Final Procedure Note Conversion, Syngo - 04/06/[address], Suite [facility], [place] [address] TRANSTHORACIC ECHOCARDIOGRAM REPORT Patient Name: ASHOK Callahan Physician: [id number] Antony Edwards FACC Study Date: 12/23/2020 Referring Physician: [id number] STACY MRN/PID: [id number] PCP: Colten Parra MD Accession/Order#: [id number] Department Location: [facility] Date of : 1965 Fellow: Gender: M Nurse: Admit Date: Wood Filler: Latanya Boyd, RT(R), RDMS, RVT Height: 187.96 cm CC Report to: Weight: 119.75 kg Study Type: Echocardiogram BSA: 2.45 m2 Diagnosis/ICD: I25.10-Atherosclerotic heart disease of [place] coronaryartery without angina pectoris; I21.19-ST elevation (STEMI)myocardial infarction involving other coronary artery of inferiorwall Indication: HTN PTCA Procedure/CPT: Echo Complete w Full Doppler-[id number] Study Detail: The following Echo studies were [...] 0.8 m/s (0.6-0.9m/s) PV Max P.5 mmHg [id number] Antony Pena MD, FACC Electronically signed on 12/23/2020 at 11:56:24 AM Final Authorizing ProviderResult TypeResult StatusSyngo ConversionCV ECHO PROCEDURES Final ResultPerforming OrganizationAddressCity/State/ZIP CodePhone Number [facility] [address] * CARDIAC STRESS TEST (12/23/2020) Narrative 12/23/2020 Ordered by an unspecified provider. Authorizing ProviderResult TypeResult StatusOnbase ConversionCV STRESS PROCEDURESFinal Result * Cardiac Stress Test (12/23/2020)Specimen (Source)Anatomical Location / LateralityCollection Method / VolumeCollection TimeReceived Time12/23/2020 Narrative [facility] - 12/23/2020 12:00 AM EDT ? [address], [address] [place] [address] ? Exercise Stress Test Patient Name: ? ASHOK DOSS ? Ordering Physician: ?[id number] Jean Claude ?Regis GARCIA Study Date: ? 12/23/2020 ? Reading Physician: ? [id number] Antony ?MARCUS Edwards MRN/PID: ?[id number] ? Supervising Physician: Accession/Order#: [id number] ?Referring Physician: ?? [id number] JEAN CLAUDE ?REGIS Date of : ?1965 ? PCP: Gender: ? M ?Fellow: Height: ? 187.96 cm ?Nurse: ? Frida Dewey RN Weight: ? 119.75 kg ?Wood Filler: ? N/A BSA: ?2.45 m2 ?Technologist: BMI: ?33.90 kg/m2 ?Additional Staff: Age: ?55 years ? cc report to: Patient Location: [facility] ? cc report to: ?[id number] Jean Claude ?[place] ?Regis GARCIA Study Type: ?Cardiac Stress Test Diagnosis/ICD: I25.10-Atherosclerotic heart disease; I21.19-ST elevation (STEMI) ? myocardial infarction involving other coronary artery of inferior ? wall Indication: ?CAD, INF. OK Procedure/CPT: Stress Test Interpretation-21519; Stress Test Supervision-[id number] Falls Risk: Patient Performance: The patient exercised to stage II on a Antonio protocol for 4 minutes and 29 seconds, achieving 6.3 METS. The peak heart rate achieved was 126 bpm, which was 77 % of the age predicted target heart rate of 165 bpm. The resting blood pressure was 126/68 mmHg with a heart rate of 67bpm. The patient's functional capacity was below average. [...] findings. Stress Stage Data: + +---+------+-------+ + ? HR Sys BP Strauss BP RPE ? + +---+------+-------+ + Baseline Resting 67 126 ?? 68 ? + +---+------+-------+ + Stage I ? 110 146 ?? 78 ? 16=Hard ? + +---+------+-------+ + Stage II ? 126 152 ?? 80 ? 20=Very,very hard + +---+------+-------+ + Recovery ECG: Recovery ECG showed sinus tachycardia and normal sinus rhythm, with no abnormal findings. The heart rate recovery was normal. + +---+------+-------+ ? HR Sys BP Strauss BP + +---+------+-------+ Recovery I ?? 120 146 ?? 74 ? + +---+------+-------+ Recovery II 114 146 ?? 72 ? + +---+------+-------+ Recovery III 90 132 ?? 72 ? + +---+------+-------+ Recovery IV 81 124 ?? 72 ? + +---+------+-------+ Summary: 1. No exercise induced chest discomfort or ST changes at 76% of MPHR. ?Below average exercise capacity. 2. Non-diagnostic Stress Test. 3. The inadequate level of stress was achieved. [id number] Antony Pena MD, FACC Electronically signed on 12/23/2020 at 5:13:30 PM Final Procedure Note Conversion, Syngo - 04/06/[address], [address], [place] [address] Exercise Stress Test Patient Name: ASHOK DOSS Ordering Physician: Lisa Stacy MD Study Date: 12/23/2020 Reading Physician: [id number] Pena MD,[facility] MRN/PID: [id number] Supervising Physician: Accession/Order#: [id number] Referring Physician: LISA STACY Date of : 1965 PCP: Gender: M Fellow: Height: 187.96 cm Nurse: Maribel GOODMAN Weight: 119.75 kg Wood Filler: N/A BSA: 2.45 m2 Technologist: BMI: 33.90 kg/m2 Additional Staff: Age: 55 years cc report to: Patient Location: [facility] cc report to: Lisa Stacy MD Study Type: Cardiac Stress Test Diagnosis/ICD: I25.10-Atherosclerotic heart disease; I21.19-ST elevation(STEMI) myocardial infarction involving other coronary artery ofinferior wall Indication: CAD, INF. OK Procedure/CPT: Stress Test Interpretation-87428; Stress TestSupervision-[id number] Falls Risk: Patient Performance: The patient exercised [...] The inadequate level of stress was achieved. [id number] Antony Pena MD, [facility] Electronically signed on 12/23/2020 at 5:13:30 PM Final Authorizing ProviderResult TypeResult StatusSyngo ConversionCV STRESS PROCEDURES Final ResultPerforming OrganizationAddressCity/State/ZIP CodePhone Number [facility] [address] * ELECTROCARDIOGRAM RHYTHM STRIP (11/29/2020) Only the most recent of2 resultswithin the time period is included. Narrative 11/29/2020 Ordered by an unspecified provider. Authorizing ProviderResult TypeResult StatusOnbase ConversionECG ORDERABLESFinal Result * (ABNORMAL) Troponin I (11/19/2020 9:03 PM EDT) Only the most recent of5 resultswithin the time period is included. ComponentValueRef RangeTest MethodAnalysis TimePerformed AtPathologist Signature Troponin I10.69(HH)0.00 - 0.03 ng/mLNA[facility] LABComment: LESS THAN 0.04 NG/ML: ?? NEGATIVE REPEAT TESTING IN THREE TO SIX [...] is performed using different testing methodology at [facility] than at other [facility]. Direct result comparisons should only be made within the same method. 21:43 11/19/2020. ??Called- RB to Shelia GOODMAN , 11/19/2020 21:43 Specimen (Source)Anatomical Location / LateralityCollection Method / Volume Collection TimeReceived Time11/19/2020 9:03 PM EDT11/19/2020 9:06 PM EDT Narrative Authorizing ProviderResult TypeResult Jaren Stacy MDLAB BLOOD ORDERABLES Final ResultPerforming OrganizationAddressCity/State/ZIP CodePhone Number [facility] * Heparin Assay (11/19/2020 2:38 PM EDT) Only the most recent of3 resultswithin the time period is included. ComponentValueRef RangeTest MethodAnalysis TimePerformed AtPathologist Signature HEPARIN UNFRACTIONATED0.2IU/mLNA[facility] LABComment: The therapeutic reference range for UFH may be either 0.3-0.6 IU/mL or 0.3-0.7 IU/mL based on the clinical setting for anticoagulant therapy and the associated nomogram used. For heparin dosing guidelines based on clinical scenario and Heparin Assay results, please refer to local ?? Pharmacy and the [place] Guidelines for Anticoagulation therapy available on the [facility] intranet at: [email or web address]/Pharmacy/Pages/[place]_[facility]_for_Anticoagu.aspx Specimen (Source)Anatomical Location / LateralityCollection Method / Volume Collection TimeReceived Time11/19/2020 2:38 PM EDT11/19/2020 2:40 PM EDT Narrative Authorizing ProviderResult TypeResult StatusGemaria eugenia GARCIA BLOOD ORDERABLES Final ResultPerforming OrganizationAddressCity/State/ZIP CodePhone Number [facility] * (ABNORMAL) CBC (11/19/2020 5:23 AM EDT) Only the most recent of2 resultswithin the time period is included. ComponentValueRef RangeTest MethodAnalysis TimePerformed AtPathologist Signature WBC22.9(H)4.4 - 11.3 x10E9/[facility] LABRBC4.42(L)4.50 - 5.90 x10E12/[facility] PVKNtxvvxteid29.513.5 - 17.5 g/dLNAVAL HOSPITAL J[facility]VIL[facility] OPAKbulybicne01.241.0 - 52.0 %[facility] MLXSWE5644 - 100 fL [facility] UGSQGXO75.832.0 - 36.0 g/dLNAVAL HOSPITAL [facility] LAB Blyssnsno376765 - 450 x10E9/[facility] ZEFIFX49.311.5 - 14.5 %[facility] LABSpecimen (Source)Anatomical Location / LateralityCollection Method / VolumeCollection TimeReceived Time11/19/2020 5:23 AM EDT11/19/2020 5:28 AM EDT Narrative Authorizing ProviderResult TypeResult StatusLeia Stearns ELECTRICAL CONTROLS ENGINEER-CNPLAB BLOOD ORDERABLESFinal ResultPerforming OrganizationAddressCity/State/ZIP CodePhone Number [facility] * Magnesium (11/19/2020 5:23 AM EDT)ComponentValueRef RangeTest MethodAnalysis TimePerformed AtPathologist SignatureMagnesium1.801.60 - 2.40 mg/dLNAVAL HOSPITAL [facility] LABSpecimen (Source)Anatomical Location / LateralityCollection Method / VolumeCollection TimeReceived Time11/19/2020 5:23 AM EDT11/19/2020 5:28 AM EDT Narrative Authorizing ProviderResult TypeResult StatusLeia Stearns ELECTRICAL CONTROLS ENGINEER-CNPLAB BLOOD ORDERABLESFinal ResultPerforming OrganizationAddressCity/State/ZIP CodePhone Number [facility] * (ABNORMAL) Basic Metabolic Panel (11/19/2020 5:23 AM EDT)ComponentValueRef RangeTest MethodAnalysis TimePerformed AtPathologist QqvgoqxxhMupnafh998(H)74 - 99 mg/dLNAVAL HOSPITAL [facility] WSRKnntqt721435 - 145 mmol/[facility] LABPotassium3.83.5 - 5.3 mmol/[facility] IMYOlpnrlys489(H) 98 - 107 mmol/[facility] AUMCbpbdpymhzt2351 - 32 mmol/[facility] LABAnion Pxv4161 - 20 mmol/[facility] LABUrea Dqtkobzw769 - 23 mg/dLNAVAL HOS[facility]ITAL [facility] LABCreatinine0.830.50 - 1.30 mg/dL [facility] LABGLOMERULAR FILTRATION RATE-NON >60>60 mL/min/1.61q0CIYYZGNAVAL HOSPITAL JACK[facility]IL[facility] LABGLOMERULAR FILTRATION RATE->60>60 mL/min/1.61l7KAKWBENAVAL HOSPITAL J[facility] LABComment: CALCULATIONS OF ESTIMATED GFR ARE PERFORMED USING THE MDRD STUDY EQUATION FOR THE IDMS-TRACEABLE CREATININE METHODS. CLIN CHEM 2007;53:766-72 Calcium8.4(L)8.6 - 10.3 mg/dLNAVAL HOSPITAL [facility] LABSpecimen (Source) Anatomical Location / LateralityCollection Method / VolumeCollection Time Received Time11/19/2020 5:23 AM EDT11/19/2020 5:28 AM EDT Narrative Authorizing ProviderResult TypeResult StatusLeia Dixie Mcguirecatarina [facility] BLOOD ORDERABLESFinal ResultPerforming OrganizationAddressCity/State/ZIP CodePhone Number [facility] * aPTT (11/19/2020 12:53 AM EDT)ComponentValueRef RangeTest MethodAnalysis Time Performed AtPathologist YraviyovbsPIR5144 - 35 [facility] Comment: ??THE APTT IS NO LONGER USED FOR MONITORING ??UNFRACTIONATED HEPARIN THERAPY. ??FOR MONITORING HEPARIN THERAPY, ??USE THE HEPARIN ASSAY. Specimen (Source)Anatomical Location / LateralityCollection Method / Volume Collection TimeReceived Time11/19/2020 12:53 AM EDT11/19/2020 1:00 AM EDT Narrative Authorizing ProviderResult TypeResult StatusJerry GARCIA BLOOD ORDERABLESFinal ResultPerforming OrganizationAddressCity/State/ZIP CodePhone Number [facility] * Protime-INR (11/19/2020 12:53 AM EDT)ComponentValueRef RangeTest Method Analysis TimePerformed AtPathologist OcaegitaqUjyenvm75.810.1 - 13.3 [facility] LABINR1.10.9 - 1.1E[facility] LABSpecimen (Source) Anatomical Location / LateralityCollection Method / VolumeCollection Time Received Time11/19/2020 12:53 AM EDT11/19/2020 1:00 AM EDT Narrative Authorizing ProviderResult TypeResult StatusJerry GARCIA BLOOD ORDERABLESFinal ResultPerforming OrganizationAddressCity/State/ZIP CodePhone Number [facility] * (ABNORMAL) ACTIVATED CLOTTING TIME LOW (11/18/2020 7:41 PM EDT)ComponentValue Ref RangeTest MethodAnalysis TimePerformed AtPathologist SignatureActivated Clotting Time POC Low Lsmbl854(H)89 - 169 SECONDSNA[facility] Comment: Note new reference range as of 06/06/2018. Target ACT range will vary based on the patient population, clinical status, and surgical intervention occurring. Specimen (Source)Anatomical Location / LateralityCollection Method / Volume Collection TimeReceived Time11/18/2020 7:41 PM EDT11/21/2020 6:18 AM EDT Narrative Authorizing ProviderResult TypeResult StatusJean Claude GARCIA POINT OF CARE TEST DOCKED DEVICE UNSOLICITED RESULTSFinal ResultPerforming OrganizationAddress City/State/ZIP CodePhone Number [facility] * (ABNORMAL) ACTIVATED CLOTTING TIME LOW (11/18/2020 7:24 PM EDT)ComponentValue Ref RangeTest MethodAnalysis TimePerformed AtPathologist SignatureActivated Clotting Time POC Low Kewyr818(H)89 - 169 [facility]DSNA[facility] Comment: Note new reference range as of 06/06/2018. Target ACT range will vary based on the patient population, clinical status, and surgical intervention occurring. Specimen (Source)Anatomical Location / LateralityCollection Method / Volume Collection TimeReceived Time11/18/2020 7:24 PM EDT11/21/2020 6:18 AM EDT Narrative Authorizing ProviderResult TypeResult StatusJean Claude GARCIA POINT OF CARE TEST DOCKED DEVICE UNSOLICITED RESULTSFinal ResultPerforming OrganizationAddress [facility]/ZIP CodePhone Number [facility] * XR CHEST 1 VIEW (11/18/2020 7:19 PM EDT)Anatomical RegionLateralityModality ChestRadiographic ImagingSpecimen (Source)Anatomical Location / Laterality Collection Method / VolumeCollection TimeReceived Time Narrative 11/18/2020 7:40 PM EDT STUDY: Chest Radiograph; ??11/18/2020 7:22 PM. INDICATION: Concern for dissection, chest pain. COMPARISON: None Available. ACCESSION NUMBER(S): [id number] ORDERING CLINICIAN: JERRY BRONSON MD TECHNIQUE: ??Frontal chest was obtained at 1919 hours. FINDINGS: [...] chest pain. COMPARISON: None Available. ACCESSION NUMBER(S): [id number] ORDERING CLINICIAN: JERRY BRONSON MD TECHNIQUE: Frontal chest was obtained at 1919 hours. FINDINGS: CARDIOMEDIASTINAL SILHOUETTE: Cardiomediastinal silhouette is normal in size and configuration. LUNGS: Lungs are clear. ABDOMEN: No remarkable upper abdominal findings. BONES: No acute osseous changes. IMPRESSION: No acute cardiopulmonary process seen. Signed by Kaden Griffiths MD Authorizing ProviderResult TypeResult StatusJordan David Bronson MDIMG XR PROCEDURES Final Result * Sars-CoV-2 PCR, Screen Asymptomatic (11/18/2020 7:18 PM EDT)ComponentValueRef RangeTest MethodAnalysis TimePerformed AtPathologist SdfbctentBFZH-MqO-5 ResultNOT DETECTEDNot [facility] LABComment: . This test has received [facility] Emergency Use Authorization (EUA) and has been verified by [facility]. This test is only authorized for the duration of time that circumstances exist to justify the authorization of the emergency use of in vitro diagnostic tests for the detection of SARS-CoV-2 virus and/or diagnosis of COVID-19 infection under section 564(b)(1) of the Act, 21 U.S.C. 360bbb-3(b)(1), unless the authorization is terminated or revoked sooner. [facility] is certified under CLIA-88 as qualified to perform high complexity testing. Testing is performed in the [facility] laboratory located at [address] [place] [address]. SARS-CoV-2/Flu/RSV Multiplex Test: Fact sheet for providers: https://www.fda.gov/media/917363/download Fact sheet for patients: https://www.fda.gov/media/647226/download Specimen (Source)Anatomical Location / LateralityCollection Method / Volume Collection TimeReceived Time09/ 7:18 PM EDT11/18/2020 7:18 PM EDT Narrative Authorizing ProviderResult TypeResult StatusJerry GARCIA MOLECULAR DIAGNOSTICS ORDERABLESFinal ResultPerforming OrganizationAddressCity/State/ZIP CodePhone Number [facility] * B-Type Natriuretic Peptide (11/18/2020 7:17 PM EDT)ComponentValueRef RangeTest MethodAnalysis TimePerformed AtPathologist DzsczxinzHAF863 - 99 pg/mLNA[facility]ITAL [facility] LABComment: . <100 pg/mL - Heart failure unlikely 100-299 pg/mL - Intermediate probability of acute heart . ? failure exacerbation. Correlate with clinical . ? context and patient history. >=300 pg/mL - Heart Failure likely. Correlate with clinical . ? context and patient history. BNP testing is performed using different testing methodology at [facility] than at other [facility]. Direct result comparisons should only be made within the same method. Specimen (Source)Anatomical Location / LateralityCollection Method / Volume Collection TimeReceived Time11/18/2020 7:17 PM EDT11/18/2020 7:17 PM EDT Narrative Authorizing ProviderResult TypeResult StatusJerry GARCIA BLOOD ORDERABLESFinal ResultPerforming OrganizationAddressCity/State/ZIP CodePhone Number [facility] * (ABNORMAL) Comprehensive Metabolic Panel (11/18/2020 7:17 PM EDT)Component ValueRef RangeTest MethodAnalysis TimePerformed AtPathologist SignatureGlucose 113(H)74 - 99 mg/dLNAVAL [facility]ITAL [facility] BHLJzebsn110543 - 145 mmol/[facility] LABPotassium3.83.5 - 5.3 mmol/[facility] Xmstgrgb42487 - 107 mmol/[facility] ARFRhlfeghomib7672 - 32 mmol/L [facility] LABAnion Ted3910 - 20 mmol/[facility] Urea Aynlexzw444 - 23 mg/dLNAVAL [facility]OSPITAL [facility] LABCreatinine1.120.50 - 1.30 mg/dLNAVAL HOSPITAL [facility] LABGLOMERULAR FILTRATION RATE-NON >60>60 mL/min/1.08f9UZYSNANAVAL HOSPITAL J[facility] LABGLOMERULAR FILTRATION RATE- >60>60 mL/min/1.48h7ZRQEOVNAVAL HOSPITAL [facility] LABComment: CALCULATIONS OF ESTIMATED GFR ARE PERFORMED USING THE MDRD STUDY EQUATION FOR THE IDMS-TRACEABLE CREATININE METHODS. CLIN CHEM 2007;53:766-72 Calcium9.48.6 - 10.3 mg/dLNA[facility] LABAlbumin4.23.4 - 5.0 g/dL [facility] LABAlkaline Lcdayfxoxst0585 - 120 U/[facility] LABTotal Protein7.06.4 - 8.2 g/dLNAVAL HOSPITAL [facility] IBUSVX051 - 39 U/[facility] LABTotal Bilirubin0.30.0 - 1.2 mg/dLNAVAL HOS[facility]ITAL [facility] LABALT (SGPT)1910 - 52 U/[facility] LABComment: Patients treated with Sulfasalazine may generate falsely decreased results for ALT. Specimen (Source)Anatomical Location / LateralityCollection Method / Volume Collection TimeReceived Time11/18/2020 7:17 PM EDT11/18/2020 7:17 PM EDT Narrative Authorizing ProviderResult TypeResult StatusJerry Bronson MDLAB BLOOD ORDERABLESFinal ResultPerforming OrganizationAddressCity/State/ZIP CodePhone Number [facility] * OUTSIDE IMAGING SCAN (11/18/2020)Anatomical RegionLateralityModalityOther Narrative 11/18/2020 Ordered by an unspecified provider. Authorizing ProviderResult TypeResult StatusOnbase ConversionOUTSIDE SCANFinal Result * Adult Cath (11/18/2020)Specimen (Source)Anatomical Location / Laterality Collection Method / VolumeCollection TimeReceived Time11/18/2020 Narrative [facility] - 11/18/2020 12:00 AM EDT [facility] [place] ? [address] [place] [address] ? [facility] [address] Cardiovascular Catheterization Report Patient Name: ? Ashok Doss Performing Physician: [id number] Jean Claude Stacy MD Study Date: ? 11/18/2020 ?Verifying Physician: ??[id number] Jean Claude Stacy MD MRN/PID: ?[id number] ? Sales Representative Printing Supplies: Accession/Order#: [id number] ?Referring Physician: ??[id number] José Miguel Posey MD Date of : ?1965 ? Referring Physician: Gender: ? M ?Referring Physician: ??[id number] Jean Claude Stacy MD Study: Left Heart Catheterization Indications: Ashok Doss is a 55 year old male who presents with hypertension and tobacco Use - current. Acute coronary syndrome <=24 hrs and Immediate PCI for acute STEMI , with a chest pain assessment of typical angina. Study performed as an emergency cath procedure. Medical History: Stress test performed: No. CTA performed: No. [place] accessed: No. LVEF Assessed: Yes. Procedure Description: After infiltration with 2% Lidocaine, the right femoral artery was cannulated with a modified Seldinger technique. Subsequently a 6 Brazilian sheath was placed in the right femoral [...] the left and right coronary arteries with angiogramsrecorded in multiple projections. Retrograde left heart catheterizion was accomplished with a 5 Fr.pigtail catheter. A single plane left ventriculogram was recorded in the 30 degree TODD projection. The contrast dose was 20 ml injected at 10 ml/sec. The catheter was then withdrawn across the aorticvalve under continuous pressure monitoring and removed. After completion of the procedure, femoral artery angiography was performed. This demonstrated a common femoral artery puncture appropriate forclosure. An Angio-Seal VIP 6F ([employer]) [...] less than 10% distal stenosis. First septal box sealing inspector is moderately large and has 0% stenosis. First major diagonal branch measuresabout 2.25 to 2.5 mm and has about [...] distal right coronary artery. The vessel was pre- dilated using a compliant balloon 2.5 mm x [...] RCA. 3.5 x 16 mm Synergy drug-eluting stentwas used. Final results showed 0% residual stenosis with ELIECER- 3 flow and no dissection 7. Angio-Seal hemostatic device was used. Complications: No in-lab complications observed. Cardiac Cath Transition of Care Summary: Post Procedure Diagnosis: Single vessel disease and Mild CAD. Blood Loss: ? Estimated blood loss during the procedure was 15cc ?mls. Specimens Removed: ?Number of specimen(s) removed: none. Recommendations: Agressive risk [...] right coronary artery. 3. 1. Codominant system ?2. Diffuse coronary artery disease 20 to 30% in all territories ?3. 100% distal mid RCA occlusion with ELIECER 0 antegrade flow, culprit vessel ?4. Mid LAD with about 50% smooth stenosis after major diagonal branch ?5. LVEDP 10 mmHg LVEF about 55%, no regional wall motion abnormality or mitral regurgitation appreciated in the TODD view ?6. Patient underwent PCI and stenting of the distal mid RCA. 3.5 x 16 mm Synergy drug-eluting stent was used. Final results showed 0% residual stenosis with ELIECER-3 flow and no dissection ?7. Angio-Seal hemostatic device was used. 4. Left Ventricular end-diastolic pressure = 10mm hg. 5. Normal LV systolic function. ____ CPT Codes: Left Heart Cath (visualization of coronaries) and LV-28787; Moderate Sedation Services initial 15 minutes patient >5 years-92132; Moderate Sedation Services 1st additional 15 minutes patient >5years-35163; Moderate Sedation Services 2nd additional 15 minutes patient >5 years-91710; Angiography, Extremity,uni,S&I (PER)-04267; Angioplasty, single Left Anterior Descending major Artery/branch (PCI)-88762.[place] ICD 10 Codes: I21.02-ST elevation (STEMI) myocardial infarction involving left anterior descending coronary artery [id number] Jean Claude Stacy MD Performing Physician cc Report to: [id number] José Miguel Posey MD cc Report to: [id number] Stacy MD Final Procedure Note Conversion, Syngo - 04/06/2022 [facility] [address] [place] [address] Cardiovascular Catheterization Report Patient Name: Ashok Doss Performing Physician: Sheridan Patton Study Date: 11/18/2020 Verifying Physician: Sheridan Patton MRN/PID: [id number] Sales Representative Printing Supplies: Accession/Order#: [id number] Referring Physician: [id number] Garrett Date of : 1965 Referring Physician: [...] and lessthan 10% distal stenosis. First septal box sealing inspector is moderately large andhas 0% stenosis. First [...] to distal right coronary artery.The vessel was pre- dilated using a compliant balloon 2.5 mm x [...] Loss: Estimated blood loss during the procedure asv75mo mls. Specimens Removed: Number of specimen(s) removed: none. Recommendations: Agressive risk factor modification efforts. Telemetry monitoring. Follow-up with cardiology clinic. Follow-up with primary care physician. Anti-platelet therapy with Dual antiplatelet therapy, Aspirin andTicagrelor 90mgs BID. Lipid lowering agent or Statin therapy. Consider referral to cardiac rehabilitation. Aspirin therapy. Beta jaycob therapy. CONCLUSIONS: 1. Single vessel disease and non-obstructive [...] 10mm hg. 5. Normal LV systolic function. CPT Codes: Left Heart Cath (visualization of coronaries) and LV-35749; ModerateSedation Services initial 15 minutes patient >5 years-88095; ModerateSedation Services 1st additional 15 minutes patient >5 years-95248;Moderate Sedation Services 2nd additional 15 minutes patient >5years-12126; Angiography, Extremity,uni,S&I (PER)-17439; Angioplasty,single Left Anterior Descending major Artery/branch (PCI)-50333.[place] ICD 10 Codes: I21.02-ST elevation (STEMI) myocardial infarction involving left anterior descending coronary artery [id number] Jean Claude Stacy MD Performing Physician cc Report to: [id number] José Miguel Posey MD cc Report to: [id number] Jean Claude Stacy MD Final Authorizing ProviderResult TypeResult StatusSyngo ConversionCV CARDIAC CATH PROCEDURESFinal ResultPerforming OrganizationAddressCity/State/ZIP CodePhone Number [facility] [address] Visit Diagnoses DiagnosisStart Date ST elevation (STEMI) myocardial infarction involving other coronary artery of inferior wall (Multi) 11/18/2020 Atherosclerotic heart disease of [place] coronary artery without angina pectoris 12/23/2020 Primary hypertension Unspecified essential hypertension 04/01/2023 Atherosclerosis of [place] coronary artery of [place] heart without angina pectoris 08/28/2023 History of PTCA Postsurgical percutaneous transluminal coronary angioplasty status 08/28/2023 Mixed hyperlipidemia 08/28/2023 Primary hypertension Unspecified essential hypertension 08/28/2023 Current every day smoker 08/28/2023 BMI 35.0-35.9,adult 08/28/2023 Hypertension, unspecified type 12/13/2023 Atherosclerosis of [place] coronary artery of [place] heart without angina pectoris 12/13/2023 Current every [...] 12/13/2023 Hypertension, unspecified type 12/24/2023 Atherosclerosis of [place] coronary artery of [place] heart without angina pectoris 12/24/2023 Current every [...] 12/24/2023 Hypertension, unspecified type 12/24/2023 Atherosclerosis of [place] coronary artery of [place] heart without angina pectoris 12/24/2023 Current every [...] hypertension Unspecified essential hypertension 12/24/2023 Atherosclerosis of [place] coronary artery of [place] heart with stable angina pectoris 12/24/2023 Current every day smoker 12/24/2023 Hypertension, unspecified type 12/24/2023 Atherosclerosis of [place] coronary artery of [place] heart without angina pectoris 12/24/2023 Current every [...] course changed 01/06/2024 Coronary artery disease involving [place] coronary artery of [place] heart with unstable angina pectoris (Multi) 01/06/2024 Chest pain, unspecified type 01/06/2024 Abnormal nuclear stress test 01/06/2024 Shortness of breath 02/21/2024 Encounter to discuss test results Other specified counseling 02/21/2024 History of PTCA Postsurgical percutaneous transluminal coronary angioplasty status 02/21/2024 Mixed hyperlipidemia 02/21/2024 Primary hypertension Unspecified essential hypertension 02/21/2024 Current every day smoker 02/21/2024 BMI 37.0-37.9, adult 02/21/2024 Medication course changed 02/21/2024 Hypertension, unspecified type 02/21/2024 Atherosclerosis of [place] coronary artery of [place] heart without angina pectoris 02/21/2024 Other hyperlipidemia 02/21/2024 Sleep apnea with use of continuous positive airway pressure (CPAP) 02/21/[address] elevation myocardial infarction (STEMI) 02/21/2024 BMI 35.0-35.9,adult 02/21/2024 Primary hypertension Unspecified essential hypertension 03/08/2024 Palpitations 03/08/2024 Primary hypertension Unspecified essential hypertension 03/16/2024 Primary hypertension Unspecified essential hypertension 03/24/2024 Mixed hyperlipidemia 03/24/2024 Shortness of breath 03/24/2024 Palpitations 03/24/2024 Atherosclerosis of [place] coronary artery of [place] heart without angina pectoris 08/21/2024 Medication course changed 08/21/2024 Primary hypertension Unspecified essential hypertension 08/21/2024 Mixed hyperlipidemia 08/21/2024 Palpitations 08/21/2024 Current every day smoker 08/21/2024 Sleep apnea with use of continuous positive airway pressure (CPAP) 08/21/2024 BMI 35.0-35.9,adult 08/21/2024 Primary hypertension Unspecified essential hypertension 01/26/2025 Care Teams Team MemberRelationshipSpecialtyStart DateEnd Date Colten Parra DO PCP - Uprdufe15/22/21
--- NOTE | 2025-02-17 12:50 | XR_ITS ---
The [address] [address] Patient Name: ASHOK DOSS MRN: [id number] date: 1965 Sex: M Assigned Patient Location: [facility] Current Patient Location: [facility] Accession/Order Number: [id number] Exam Date: 02/17/2025 12:58 Report Date: 02/17/2025 13:35 At the request of: GREGORY WERNER NP Procedure: XR lumbar spine 6V w bending LUMBAR SPINE WITH FLEXION AND EXTENSION VIEWS -7 views: CLINICAL HISTORY: Chronic low back pain without reported injury M54.50 COMPARISON: 07/31/2022 AP, lateral (neutral, flexion and extension), both oblique and lateral coned-down view of the lumbosacral junction were obtained. There is continued dextroscoliotic curvature. There is no evidence of fracture. Alignment is maintained on the lateral view. No instability is seen. Disc space narrowing is present at L4-5 and the lumbosacral junction. Endplate spurring and facet hypertrophy are noted. No pars defect is identified. The sacroiliac joints are maintained and there is mild sclerosis. There are no paraspinal soft tissue abnormalities. There is atherosclerotic plaque at the aorta and iliac arteries. XR/XR lumbar spine 6V w bending IMPRESSION: SCOLIOSIS AND DEGENERATIVE CHANGES, DESCRIBED. Impression dictated by: Shelia Wood M.D. 02/17/2025 1:35 PM Dictation Location: [place] [address] Electronically authenticated by: [id number] Y Date: 02/17/2025 13:35
== END 2025-02-17 12:44 | disposition home or self-care (01) ==
LOC: RAD 12:44
PROVIDERS: PCP Family Medicine; Visit Provider Nurse Practitioner
DX: M54.50 Low back pain, unspecified (principal); M41.86 Other forms of scoliosis, lumbar region
CPT/HCPCS: 72114

== ENCOUNTER 2025-02-18 08:45 | Outpatient (OUT) | payer MEDICARE, SELFPAY ==
--- OUTSIDE RECORDS SUMMARY | 2025-02-10 12:24 | XMS_ITS | Encounter Summary ---
Author Organization [employer] tem Address [facility] [id number] [address] [place] [address] Care Team Providers Care Slip Maker Name Role Phone Colten Parra DO Primary Care Provider + [phone] Reason for Referral * Diagnostic Imaging (Routine) - ClosedSpecialtyDiagnoses / ProceduresReferred By ContactReferred To ContactRadiology Diagnoses Smoker Procedures CT low dose lung screening (Annual) Colten Parra DO [address], [place] [address] Phone: tel: fax: Referral IDStatusReasonStart DateExpiration DateVisits RequestedVisits [id number]/10/202511/10/202611 Reason for Visit * Diagnostic Imaging (Routine) - ClosedSpecialtyDiagnoses / ProceduresReferred By ContactReferred To ContactRadiology Diagnoses Smoker Procedures CT low dose lung screening (Annual) Colten Parra DO [address], [place] [address] Phone: tel: fax: Referral IDStatusReasonStart DateExpiration DateVisits RequestedVisits [id number]/10/202511/10/202611 Encounter Details DateTypeDepartmentCare Team (Latest Contact Info)Ckmmkiqzfcy60/10/2025 12:24 PM EST - 02/10/2025 11:59 PM ESTHospital Encounter [facility] - [facility] Imaging [address] [place] [address] Smoker Discharge Disposition: Home Social History Tobacco UseTypesPacks/DayYears UsedDateSmoking Tobacco: Every IjyXppweabisz776 Started: 1978Smokeless Tobacco: NeverAlcohol UseStandard Drinks/WeekCommentsYes0 (1 standard drink = 0.6 oz pure alcohol)rarelyPHQ-2AnswerDate RecordedTotal Zxmve09503/13/2024UDIT-CAnswerDate RecordedQ1: How often do you have a drink containing alcohol?Monthly or less12/23/2024Q2: How many drinks containing alcohol do you have on a typical day when you are drinking?1 or Q3: How often do you have six or more drinks on one occasion?Never12/23/2024 ChildcareAnswerDate RecordedDo problems getting child care nurse make it difficult for you to work or study?No01/11/2025EmploymentAnswerDate RecordedEmploymentUnknown 08/13/2018Hunger ScreeningAnswerDate RecordedWithin the past 12 months we worried whether our food would run out before we got money to buy more.Never True01/11/2025Within the past 12 months the food we bought just didn't last and we didn't have money to get more.Never True01/11/2025Purpose - LifeAnswerDate RecordedPurpose and direction in fypfYzkhqro54/11/2021ex and Gender Information ValueDate RecordedSex Assigned at BirthNot on fileLegal AnuRsgm5710/07/2014 12:13 PM EDTGender IdentityNot on fileSexual OrientationNot [...] Plan of Treatment DateTypeDepartmentCare Team (Latest Contact Info)Csjwnhcvrqv03/11/2026 9:30 AM EDTOffice Visit [facility] [address] [place] [phone] Colten Parra, [address], [place] [address] 10/06/2025 1:15 PM EDTOffice Visit [facility] [address] [place] [address] [place] [address] Сергей Lucas MD [facility] [place] [address] documented as of this encounter Goals GoalPatient Goal TypeAssociated ProblemsRecent ProgressPatient-Stated?Author safe discharge ot home Simran Velasquez RN Note: Evaluation of progress towards goal: safe transition to home with support of pt's and resumption with outpatient PT. documented as of this encounter Procedures Procedure NamePriorityDate/TimeAssociated DiagnosisCommentsCT LOW DOSE LUNG FUJLCLZOYMynkihk67/10/2025 12:40 PM EST Smoker documented in this [...] detection for pulmonary nodules was performed utilizing [employer]LP[employer] software. FINDINGS: Diagnostic quality: Satisfactory Lung nodules: [...] aideddetection for pulmonary nodules was performed utilizing [employer]. FINDINGS: Diagnostic quality: Satisfactory Lung nodules: No [...] follow-up plan has been documented for the banhhns8701/11/2025 5:46 PM ESTdocumented as of this encounter Care Teams Team MemberRelationshipSpecialtyStart DateEnd Date Colten Parra DO [address] [facility], [place] [address] PCP - GeneralFamily Medicine04/03/22documented as of this encounter
--- OUTSIDE RECORDS SUMMARY | 2025-02-10 12:24 | XMS_ITS | Encounter Summary ---
Author Organization [employer] Address [id number] [address] [place] [address] Care Team Providers Care Extension Supervisor Name Role Phone Colten Parra DO Primary Care Provider + [phone] Reason for Referral * Diagnostic Imaging (Routine) - ClosedSpecialtyDiagnoses / ProceduresReferred By ContactReferred To ContactRadiology Diagnoses Smoker Procedures CT low dose lung screening (Annual) Colten Parra DO [address], [place] [address] Phone: tel: fax: Referral IDStatusReasonStart DateExpiration DateVisits RequestedVisits [id number]/10/202511/10/202611 Reason for Visit * Diagnostic Imaging (Routine) - ClosedSpecialtyDiagnoses / ProceduresReferred By ContactReferred To ContactRadiology Diagnoses Smoker Procedures CT low dose lung screening (Annual) Colten Parra DO [address], [place] [address] Phone: tel: fax: Referral IDStatusReasonStart DateExpiration DateVisits RequestedVisits [id number]/10/202511/10/202611 Encounter Details DateTypeDepartmentCare Team (Latest Contact Info)Duboyvvzdyo64/10/2025 12:24 PM EST - 02/10/2025 11:59 PM ESTHospital Encounter [facility] [address] [place] [address] Smoker Discharge Disposition: Home Social History Tobacco UseTypesPacks/DayYears UsedDateSmoking Tobacco: Every EzlHpmqtlnper041 Started: 1978Smokeless Tobacco: NeverAlcohol UseStandard Drinks/WeekCommentsYes0 (1 standard drink = 0.6 oz pure alcohol)rarelyPHQ-2AnswerDate RecordedTotal Xkclg62003/13/2024UDIT-CAnswerDate RecordedQ1: How often do you have a drink containing alcohol?Monthly or less12/23/2024Q2: How many drinks containing alcohol do you have on a typical day when you are drinking?1 or Q3: How often do you have six or more drinks on one occasion?Never12/23/2024 ChildcareAnswerDate RecordedDo problems getting child development consultant make it difficult for you to work or study?No01/11/2025EmploymentAnswerDate RecordedEmploymentUnknown 08/13/2018Hunger ScreeningAnswerDate RecordedWithin the past 12 months we worried whether our food would run out before we got money to buy more.Never True01/11/2025Within the past 12 months the food we bought just didn't last and we didn't have money to get more.Never True01/11/2025Purpose - LifeAnswerDate RecordedPurpose and direction in tannZcqecuh38/11/2021ex and Gender Information ValueDate RecordedSex Assigned at BirthNot on fileLegal EtuLmtg6110/07/2014 12:13 PM EDTGender IdentityNot on fileSexual OrientationNot [...] Plan of Treatment DateTypeDepartmentCare Team (Latest Contact Info)Hamoqodztua95/11/2026 9:30 AM EDTOffice Visit [facility] [address] [place] [id number] Colten Parra, [address], [place] [address] 10/06/2025 1:15 PM EDTOffice Visit [facility] [address] [place] [address] [place] [address] [place] [address] Сергей Lucas MD [facility] [place] [address] documented as of this encounter Goals GoalPatient Goal TypeAssociated ProblemsRecent ProgressPatient-Stated?Author safe discharge ot home Simran Velasquez RN Note: Evaluation of progress towards goal: safe transition to home with support of pt's and resumption with outpatient PT. documented as of this encounter Procedures Procedure NamePriorityDate/TimeAssociated DiagnosisCommentsCT LOW DOSE LUNG PTJMZVCOUCqzjzbk54/10/2025 12:40 PM EST Smoker documented in this [...] detection for pulmonary nodules was performed utilizing [employer] software. FINDINGS: Diagnostic quality: Satisfactory Lung nodules: [...] aideddetection for pulmonary nodules was performed utilizing [employer]. FINDINGS: Diagnostic quality: Satisfactory Lung nodules: No [...] follow-up plan has been documented for the olekbjm0601/11/2025 5:46 PM ESTdocumented as of this encounter Care Teams Team MemberRelationshipSpecialtyStart DateEnd Date Colten Parra DO [address] [facility], [place] [address] PCP - GeneralFamily Medicine04/03/22documented as of this encounter
--- OUTSIDE RECORDS SUMMARY | 2025-02-17 12:42 | XMS_ITS | Encounter Summary ---
Author Organization [facility] Address [id number] [address] [place] [address] Care Team Providers Care Director Of Social Services Name Role Phone ElisaColten figueroa Primary Care Provider [phone] Encounter Details DateTypeDepartmentCare Team (Latest Contact Info)Kofvxpccvvm47/08/2025Travel Social History Tobacco UseTypesPacks/DayYears UsedDateSmoking Tobacco: Every [id number] Started: 1978Smokeless Tobacco: NeverAlcohol UseStandard Drinks/WeekCommentsYes0 (1 standard drink = 0.6 oz pure alcohol)rarelyPHQ-2AnswerDate RecordedTotal Hxewi26603/13/2024UDIT-CAnswerDate RecordedQ1: How often do you have a drink containing alcohol?Monthly or less12/23/2024Q2: How many drinks containing alcohol do you have on a typical day when you are drinking?1 or Q3: How often do you have six or more drinks on one occasion?Never12/23/2024 ChildcareAnswerDate RecordedDo problems getting child care coordinator make it difficult for you to work or study?No01/11/2025EmploymentAnswerDate RecordedEmploymentUnknown 08/13/2018Hunger ScreeningAnswerDate RecordedWithin the past 12 months we worried whether our food would run out before we got money to buy more.Never True01/11/2025Within the past 12 months the food we bought just didn't last and we didn't have money to get more.Never True01/11/2025Purpose - LifeAnswerDate RecordedPurpose and direction in dqouXuuekot12/11/2021ex and Gender Information ValueDate RecordedSex Assigned at BirthNot on fileLegal KupKdsb8810/07/2014 12:13 PM EDTGender IdentityNot on fileSexual OrientationNot on filedocumented as of this encounter Plan of Treatment DateTypeDepartmentCare Team (Latest Contact Info)Xpkgycoflrh60/11/2026 9:30 AM EDTOffice Visit [facility] [address] [place] [address] Colten Parra DO [address] [facility] [place] [address] 10/06/2025 1:15 PM EDTOffice Visit [facility] [address] [place] [address] [place] [address] Сергей Lucas MD [address] [place] [address] documented as of this encounter Goals GoalPatient Goal TypeAssociated ProblemsRecent ProgressPatient-Stated?Author safe discharge ot home Simran Velasquez RN Note: Evaluation of progress towards goal: safe transition to home with support of pt's and resumption with outpatient PT. documented as of this encounter Visit Diagnoses Not on filedocumented in this encounter Additional Health Concerns AssessmentNoted TimePHQ-9 Depression Total Score: 11:34 AM ESTA Body Mass Index follow-up plan has been documented for the xxtwfkd3101/11/2025 5:46 PM ESTdocumented as of this encounter Care Teams Team MemberRelationshipSpecialtyStart DateEnd Date Colten Parra DO [address] [facility] [place] [address] PCP - GeneralFamily Medicine04/03/22documented as of this encounter
--- OUTSIDE RECORDS SUMMARY | 2025-02-17 12:42 | XMS_ITS | Clinical Summary ---
Author Organization [facility] lin Address [address] [place] [address] Care Team Providers Care Automobile Mechanic Radiator Name Role Phone No, Pcp VESSEL MANAGER Primary Care Provider Unavailabl e Social History Tobacco UseTypesPacks/DayYears UsedDateSmoking Tobacco: Never AssessedSex and Gender InformationValueDate RecordedSex Assigned at BirthNot on fileLegal Sex Male03/07/2020 8:51 AM ESTGender IdentityNot on fileSexual OrientationNot on file Plan of Treatment Not on file Medical Devices Not on file Care Teams Team MemberRelationshipSpecialtyStart DateEnd Date No, Pcp, VESSEL MANAGER N/A Do not use PCP - Generalmily Medicine06/13/20
--- OUTSIDE RECORDS SUMMARY | 2025-02-17 12:42 | XMS_ITS | Clinical Summary ---
Author Organization [employer] tem Address [id number] [address] [place] [address] Care Team Providers Care Pharmacist In Charge Owner Name Role Phone ElisaColten figueroa Raymond CARR Primary Care Provider [phone] Allergies Active AllergyReactionsCriticalityNoted DateCommentsAmoxicillinVomiting 08/21/2023FentanylGI Guwtwepnwqp39/20/2024 Headaches, vomiting Isosorbide JyqgzpvxxuiFttqdriaFbxk14/04/6034YdaykxsxzeAqqggeuvujozKgu08/19/2024 Medications MedicationSigDispense QuantityRefillsLast FilledStart DateEnd DateStatus lisinopril-hydroCHLOROthiazide (PRINZIDE,ZESTORETIC) 20-12.5 mg per tablet Take 1 tablet by mouth in the morning.05/20/2020ctive HYDROcodone-acetaminophen (NORCO) 5-325 mg per tablet Take 1 tablet by mouth as needed in the morning and 1 tablet as needed in the evening.03/15/2022ctive metoprolol tartrate (LOPRESSOR) 25 mg tablet TAKE 1 TABLET (25 MG) BY MOUTH IN THE MORNING AND AT BEDTIME 180 tablet ctive albuterol (PROVENTIL,VENTOLIN) 2.5 mg /3 mL (0.083 %) nebulizer solution Indications:Acute bronchitis, unspecified organismInhale 3 mL (2.5 mg total) by nebulization 4 (four) times a day. 75 mL ctive Additional Information Patient taking differently:2.5 mg nebulizationEvery 4 hours PRN, wheezing, shortness of breath, Reported on 01/11/2025 atorvastatin (LIPITOR) 80 mg tablet TAKE 1 TABLET (80 MG TOTAL) BY MOUTH IN THE MORNING 90 tablet 4Active aspirin 81 mg Take 1 tablet (81 mg total) by mouth in the morning.Active finasteride (PROSCAR) 5 mg tablet Indications:Benign prostatic hyperplasia with urinary obstructionTake 1 tablet (5 mg total) by mouth in the morning. 90 tablet 5Active tamsulosin (FLOMAX) 0.4 mg capsule Take 2 capsules (0.8 mg total) by mouth in the morning. 180 capsule 5Active cyclobenzaprine (FLEXERIL) 10 mg tablet Take 1 tablet (10 mg total) by mouth 3 (three) times a day as needed for muscle spasms.Active lisinopriL (PRINIVIL,ZESTRIL) 20 mg tablet Take 1 tablet (20 mg total) by mouth in the morning./6Active divalproex (DEPAKOTE) 125 mg EC tablet Indications:Migraine, unspecified, not intractable, without status migrainosus Take 1 tablet (125 mg total) by mouth every morning. 90 tablet 5Active Active Problems ProblemNoted DateDiagnosed DateMigraine with aura and without status migrainosus, not piuzvpmzbuc11/10/2025lass 2 severe obesity due to excess calories with serious comorbidity and body mass index (BMI) of36.0 to 36.9 in adult01/11/2025Enlarged vfnwyjlv23/19/2024Lower urinary tract symptoms (LUTS) 07/09/2023enign prostatic hyperplasia with urinary naqabcwgpcb34/02/2024 Overview (11/18/2024): Had DVT on affected leg [...] or hydronephrosis. Plan: Renal bladder ultrasound. Cystoscopy [facility] bladder solution. CMG/flow Urine forculture. Assessment & Plan (11/18/2024 2:22 PM EDT): [...] 5 months. Sooner p.r.n.. CAD (coronary atherosclerotic disease)04/02/2023urrent every day smoker 04/02/2023History of ST elevation myocardial infarction (STEMI)04/02/2023 Ijesmnqrzunp06/30/2024hronic hip pain, left12/14/20226329Mrfxqi56/13/2023Polyp of transverse colon12/07/2022 Overview (12/07/2022): Multiple Positive colorectal cancer screening using Cologuard test11/16/2022cute deep vein thrombosis (DVT) of calf muscle vein of right lower oskwiaeyj10/20/2023 Ponvuxzs21/20/2023Right leg pain03/24/2022Essential mrpmkwjiltbr99/21/2023 Cellulitis of right leg03/24/2022cute upper respiratory nffqbpnhy35/14/2019 06/08/2022Nicotine dependence, cigarettes, qaurdhohrusza40 Resolved Problems ProblemNoted DateDiagnosed DateResolved DateObesity, wlrucl99 Situational ltzdmxqyss24 Encounters DateTypeDepartmentCare HuwzUptsewmnmld66/10/2025 12:24 PM EST - 02/10/2025 11:59 PM ESTHospital Encounter [facility] Imaging [address] [place] [phone] Smoker Discharge Disposition: Home02/08/20256860Gsqbeu08/11/2025Results Follow-Up [facility] Internal Medicine - Family Medicine [address] [place] [address] Colten Parra, Lipid profile, Valproic acid, depakane, Comprehensive metabolic panel, Additional followed-up results: 11:30 AM ESTOffice Visit [facility] [address] [place] [address] Colten Parra, Essential hypertension (Primary Dx); Mixed hyperlipidemia; Migraine with aura and without status migrainosus, not intractable; Smoker; Class 2 severe obesity due to excess calories with serious comorbidity and body mass index (BMI) of36.0 to 36.9 in adult01/11/20258762Sfvfga21/22/2025 11:30 AM EDT Office Visit [facility] General Surgery [address] [phone] Tosin Sotelo, 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 Rectal pain (Primary Dx)12/23/20246819Dlysgh17/21/6724Nkqpox63/13/2025Refill [facility] Internal Medicine - Family Medicine [address] [place] [phone] Berna Díaz CMA Migraine, unspecified, not intractable, without status mspjtogdzcb59/07/2025 1:00 PM EDTOffice Visit [facility] - Family Medicine [address] [place] [address] Colten Parra DO Anal pain (Primary Dx)12/08/20249220Htnsns90/17/2025 2:15 PM EDTOffice Visit [facility] [address] [place] [address] [address] [facility] [place] [address] Сергей Lucas MD Benign prostatic hyperplasia with urinary obstruction (Primary Dx)11/18/2024 Travelfrom Last 3 Months Immunizations ImmunizationAdministration DatesNext DueInfluenza, Im Trivalent Preservative 11/03/2019Influenza, Injectable, Ajgyhnytbugw70/20/2019,01/02/2019Influenza, Injectable, quadrivalent (PF)12/02/2016 Family History Medical HistoryRelationNameCommentsHeart failureFatherdied at age 90No Known ProblemsHalf BrothermaternalSclerodermaMotherdied in her 80'sNo Known Problems Paternal Grandfatherdied at age 98 after slipping and falling and hitting head in bathroomRelationNameStatusCommentsFatherDeceasedHalf BrotherAliveMother DeceasedPaternal GrandfatherSisterAlive Social History Tobacco UseTypesPacks/DayYears UsedDateSmoking Tobacco: Every IrgMlnjsockfo899 Started: 1978Smokeless Tobacco: Never Tobacco Cessation:Ready to Q uit: Not Asked; Counseling Given: Not Answered Alcohol UseStandard Drinks/WeekCommentsYes0 (1 standard drink = 0.6 oz pure alcohol)rarelyPHQ-2AnswerDate RecordedTotal Wlejx355/10/2025AUDIT-CAnswerDate RecordedQ1: How often do you have a drink containing alcohol?Monthly or less 12/23/2024Q2: How many drinks containing alcohol do you have on a typical day when you are drinking?1 or Q3: How often do you have six or more drinks on one occasion?Never12/23/2024hildcareAnswerDate RecordedDo problems getting child watch attendant make it difficult for you to work or study?No01/11/2025 EmploymentAnswerDate UkbgientBegypbkbqwYlylqtm36/12/2019Hunger ScreeningAnswer Date RecordedWithin the past 12 months we worried whether our food would run out before we got money to buy more.Never True01/11/2025Within the past 12 months the food we bought just didn't last and we didn't have money to get more.Never True01/11/2025Purpose - LifeAnswerDate RecordedPurpose and direction in life Wqymlgy0004/14/2020ex and Gender InformationValueDate RecordedSex Assigned at BirthNot on fileLegal TjwJbor8410/07/2014 12:13 PM EDTGender IdentityNot on file Sexual OrientationNot on file Last Filed Vital Signs Vital SignReadingTime TakenCommentsBlood Fumcaqzz35/6001/11/2025 11:35 AM EST Madby768001/11/2025 11:35 AM JBQVjwzjpqcyya35.4 ??C (97.5 ??F)01/11/2025 11:35 AM ESTRespiratory Nmhx877903/13/2024 11:35 AM ESTOxygen Klzgeygnmw34%01/11/2025 11:35 AM ESTInhaled Oxygen Concentration--Rfuaoj530.4 kg (283 lb)01/11/2025 11:35 AM UJESswwcm887 cm (6' 2.02 )01/11/2025 11:35 AM ESTBody Mass Index36.32103/13/2024 11:35 AM EST Plan of Treatment DateTypeDepartmentCare Team (Latest Contact Info)Kdiotmcdkxh41/11/2026 9:30 AM EDTOffice Visit [facility] Medicine - Family Medicine [address] [place] [phone] Colten Parra, DO [address] [place] [address] 10/06/2025 1:15 PM EDTOffice Visit [facility] [address] [place] [address] [address] [place] [phone] Сергей Lucas MD [address] [place] [address] Health MaintenanceDue DateLast DoneCommentsStatin Use: Lwbqipflzrkkxv80/07/1966 Tobacco Cfuhpskdti19/07/1966Zoster (Shingles) Vaccine (1 of 2)07/09/2015 Influenza Wtprkpy40, 01/21/2019, 01/02/2019, Additional history existsDTaP,Tdap and Td Vaccines (1 - Tdap)03/04/2025Postponed from 1984 (Patient Refused)Colon Cancer Screening 3 Year Onythhhze69/20/2026 06/21/2022dult BMI Follow Up [facility] BMI Screening Depression Pqocuwslv44Tobacco Screening Goals GoalPatient Goal TypeAssociated ProblemsRecent ProgressPatient-Stated?Author safe discharge ot home Simran Velasquez RN Note: Evaluation of progress towards goal: safe transition to home with support of pt's and resumption with outpatient PT. Medical Devices Not on file Procedures Procedure NamePriorityDate/TimeAssociated DiagnosisCommentsCT LOW DOSE LUNG FDTLXZLWLVsreeal34/10/2025 12:40 PM EST Smoker CBC (NO DIFF)Ptzlble6701/11/2025 12:14 PM EST Migraine with aura and without status migrainosus, not intractable COMPREHENSIVE METABOLIC JABLRMuqexpt22/10/2025 12:14 PM EST Essential hypertension VALPROIC ACID TLCVCYYVMmflujk61/10/2025 12:14 PM EST Migraine with aura and without status migrainosus, not intractable LIPID OCGMTBPGxemuyk38/10/2025 12:14 PM EST Mixed hyperlipidemia AMB REFERRAL TO GENERAL RYSQKZMKbuztrl97/22/2025 12:46 PM EDTMEASURE POST VOID TWRDMWYAEvujgfo62/17/2025 2:27 PM EDT Benign prostatic hyperplasia with urinary obstruction COLOGUARD NON-JWOFGGFGGCqyyqwq27/20/2023 8:00 AM EDT Encounter for colorectal cancer screening from Last 3 Months or Most Recently Relevant to Health Maintenance Results * CT low dose lung screening [...] detection for pulmonary nodules was performed utilizing [employer] software. FINDINGS: Diagnostic quality: Satisfactory Lung nodules: [...] aideddetection for pulmonary nodules was performed utilizing [employer]. FINDINGS: Diagnostic quality: Satisfactory Lung nodules: No [...] 02/12/2025 10:23 AM Authorizing ProviderResult TypeResult StatusDennis [facility] ORDERABLES Final Result * (ABNORMAL) Valproic acid, depakane (01/11/2025 12:14 PM EST)ComponentValueRef RangeTest MethodAnalysis TimePerformed AtPathologist SignatureVALPROIC ACID16 (L)50 - 100 ug/mL01/11/2025 8:31 PM [facility] Specimen (Source)Anatomical Location / LateralityCollection Method / Volume Collection TimeReceived TimeBloodVenous blood / Aeyemph8201/11/2025 12:14 PM EST 01/11/2025 12:14 PM EST Narrative Authorizing ProviderResult TypeResult StatusDennis G Furlong DOLAB BLOOD ORDERABLESFinal ResultPerforming OrganizationAddressCity/State/ZIP CodePhone Number [facility] [address] [place] [phone], * CBC without diff (01/11/2025 12:14 PM EST)ComponentValueRef RangeTest Method Analysis TimePerformed AtPathologist TjxbilhemDJO91.24 - 11 X10^9/L103/13/2024 8:05 PM [facility] LABORATORYRBC Count4.534.1 - 5.7 X10^12/L 01/11/2025 8:05 PM [facility] EZJLLQZBFZUmiqjbdwum67.113 - 17 g/dL01/11/2025 8:05 PM [facility] GHXKGVMTMQRxqikmqxbo45.439 - 50 %01/11/2025 8:05 PM [facility] DKURYWGZCSGIF4681 - 100 fL01/11/2025 8:05 PM [facility] BPNVLRPILNKLJ56.127 - 34 pg 01/11/2025 8:05 PM [facility] YIVDQOYWTDKHEL49.032 - 36 g/dL 01/11/2025 8:05 PM [facility] QMKZVPBXVJHMO91.611.5 - 15 % 01/11/2025 8:05 PM [facility] LABORATORYPlatelet Otxoy837128 - 450 X10^9/L103/13/2024 8:05 PM [facility] LABORATORYMPV7.37 - 12 fL01/11/2025 8:05 PM [facility] LABORATORYSpecimen (Source)Anatomical Location / LateralityCollection Method / VolumeCollection TimeReceived TimeBloodVenous blood / Tzfercf7901/11/2025 12:14 PM EST01/11/2025 12:14 PM EST Narrative Authorizing ProviderResult TypeResult StatusDennis G Furlong DOLAB BLOOD ORDERABLESFinal ResultPerforming OrganizationAddressCity/State/ZIP CodePhone Number [facility] [address] [place] [address], * (ABNORMAL) Lipid profile (01/11/2025 12:14 PM EST)ComponentValueRef RangeTest MethodAnalysis TimePerformed AtPathologist GjfphxjysNVGYLUWENZE719(L)150 - 200 mg/dL01/11/2025 8:31 PM [facility] JYTNPQVBZCPHSHMVOYDGZN624 27 - 150 mg/dL01/11/2025 8:31 PM [facility] LABORATORYHDL TICDHHKOMCO67>39 mg/dL01/11/2025 8:31 PM [facility] LABORATORYComment: HDL <40 mg/dL - High Risk HDL > or = 40mg/dL- Desirable HDL >60 mg/dL - Negative Risk LDL (CALC)62<130 mg/dL01/11/2025 8:31 PM [facility] Comment: LDL <100 mg/dL - Desirable LDL >160 mg/dL - High Risk CHOLESTEROL:HDL3.21.0 - 5.011 8:31 PM [facility] LABORATORYVERY LOW XSQYAFGSDFH970 - 30 mg/dL01/11/2025 8:31 PM [facility] LABORATORYSpecimen (Source)Anatomical Location / Laterality Collection Method / VolumeCollection TimeReceived TimeBloodVenous blood / Ddlnums7101/11/2025 12:14 PM EST01/11/2025 12:14 PM EST Narrative Authorizing ProviderResult TypeResult StatusDennis G Furlong DOLAB BLOOD ORDERABLESFinal ResultPerforming OrganizationAddressCity/State/ZIP CodePhone Number [facility] [address] [place] [address], * Comprehensive metabolic panel (01/11/2025 12:14 PM EST)ComponentValueRef Range Test MethodAnalysis TimePerformed AtPathologist QijypqcocNEGNMC800662 - 146 mmol/L103/13/2024 8:31 PM [facility] LABORATORYPOTASSIUM4.63.5 - 5.0 mmol/L103/13/2024 8:31 PM [facility] LABORATORYCHLORIDE 13876 - 109 mmol/L103/13/2024 8:31 PM [facility] CARBON SNMLWVY5156 - 32 mmol/L103/13/2024 8:31 PM [facility] LABORATORYANION GAP75 - 15 mmol/L103/13/2024 8:31 PM [facility] LABORATORYBLOOD UREA MALVLIOQ610 - 23 mg/dL01/11/2025 8:31 PM [facility] LABORATORYCREATININE1.070.60 - 1.30 mg/dL01/11/2025 8:31 PM [facility] LABORATORYComment:METHOD TRACEABLE TO IDVT PCSTNFVDGGOPHTP1647 - 99 mg/dL01/11/2025 8:31 PM [facility] LABORATORYCALCIUM9.38.5 - 10.5 mg/dL01/11/2025 8:31 PM [facility] LABORATORYTOTAL PROTEIN6.86.0 - 8.0 g/dL01/11/2025 8:31 PM [facility] LABORATORYALBUMIN4.03.2 - 5.3 g/dL01/11/2025 8:31 PM [facility] LABORATORYALKALINE OLZHAJSNSQP0154 - 130 U/L 01/11/2025 8:31 PM [facility] MBBTEADWKYFSU58<=41 U/L 01/11/2025 8:31 PM [facility] IYFFQZSPYAMNM50<=40 U/L 01/11/2025 8:31 PM [facility] LABORATORYBILIRUBIN,TOTAL0.30.3 - 1.2 mg/dL01/11/2025 8:31 PM [facility]ORYEGFR Non- Race Okpvaftog71>=60 ml/min/1.73sq.m103/13/2024 8:31 PM [facility] LABORATORYComment: Reported eGFR is based on the CKD-EPI 2020 equation that does not use a race coefficient. Specimen (Source)Anatomical Location / LateralityCollection Method / Volume Collection TimeReceived TimeBloodVenous blood / Oajtlam0301/11/2025 12:14 PM EST 01/11/2025 12:14 PM EST Narrative Authorizing ProviderResult TypeResult StatusDennis G Furlong DOLAB BLOOD ORDERABLESFinal ResultPerforming OrganizationAddressCity/State/ZIP CodePhone Number [facility] [address] [place] [address], * [facility] [place], [place] (12/23/2024 12:46 PM EDT) Narrative Authorizing ProviderResult TypeResult StatusDennis G Furlong DOOUTPATIENT REFERRAL ORDERABLESFinal ResultPerforming OrganizationAddressCity/State/ZIP Code Phone Number MANUALLY TRANSCRIBED RESULTS * Measure post void residual (11/18/2024 2:27 PM EDT)ComponentValueRef RangeTest MethodAnalysis TimePerformed AtPathologist UoqkqqjsyWhqaav14 mLMANUALLY TRANSCRIBED RESULTS Narrative Authorizing ProviderResult TypeResult StatusMicchyna Lucas MDNURSING ASSESSMENTSFinal ResultPerforming OrganizationAddressCity/State/ZIP CodePhone Number MANUALLY TRANSCRIBED RESULTS * (ABNORMAL) Cologuard [facility] (06/21/2022 8:00 AM EDT)ComponentValueRef RangeTest MethodAnalysis TimePerformed AtPathologist SignatureEXTERNAL COLOGUARDPositive(A)Shfpvotw84/29/2023 3:36 AM EDTEXACT Ship[employer] (CLIA #:[id number])Comment: POSITIVE TEST RESULT. A positive Cologuard result should be followed with a colonoscopy or visual examination of the colon. The normal value (reference range) for this assay is negative. TEST DESCRIPTION: Composite algorithmic analysis of stool DNA-biomarkers with hemoglobin immunoassay. ?? Quantitative values of individual biomarkers are not reportable and are not associated with individual biomarker result reference ranges. Cologuard is intended for colorectal cancer screening ofadults of either sex, 45 years or older, [...] (Katey Sanders al, N Engl J Med 2014;370(14):3753-0121.) Cologuard may produce a false negative or false positive result (no colorectal cancer or precancerous polyp present at colonoscopy follow up). A negative Cologuard test result does not guarantee the absence of CRC or advanced adenoma (pre-cancer). The current Cologuard screening interval is every 3 years. ([place] [employer] Society and U.S. Multi-Society Task Force). Cologuard performance data in a 10,000 patient pivotal study using colonoscopy as the reference method can be accessed at the following location: www.inSilica.[employer]/results. Additional description of the Cologuard test process, warnings and precautions can be found at www.Next HealthogNBO TVrd.com. Specimen (Source)Anatomical Location / LateralityCollection Method / Volume Collection TimeReceived TimeStool specimen (specimen)Rectum structure / Unknown 06/21/2022 8:00 AM EDT06/22/2022 3:16 PM EDT Narrative Authorizing ProviderResult TypeResult StatusDiandra Maddox ANODE CREW SUPERVISOR-CNPLAB ORDERABLESFinal ResultPerforming OrganizationAddressCity/State/ZIP CodePhone Number [employer] (CLIA #:[id number]) [address] [place] [address], from Last 3 Months or Most Recently Relevant to Health Maintenance Insurance Advance Directives * Full Code (Latest Code Status on File) Date ActivatedDate InactivatedComments03/24/2022 9:21 AM03/26/2022 5:36 PM Care Teams Team MemberRelationshipSpecialtyStart DateEnd Date Colten Parra DO [address] [place] [address] PCP - [facility]04/03/22
--- OUTSIDE RECORDS SUMMARY | 2025-02-17 12:44 | XMS_ITS | Clinical Summary ---
Author Organization [facility] Address [address] [place] [id number] Care Team Providers Care Out Patient Therapist Name Role Phone Unavailable Primary Care Provider Unavailabl e Allergies No known active allergies Medications MedicationSigDispense QuantityRefillsLast FilledStart DateEnd DateStatus acetaminophen-codeine (TYLENOL-COD #3) 300-30 mg per tablet Take 1 tablet by mouth twice daily as needed.04/11/2021ctive aspirin, enteric coated (ASPIRIN, ENTERIC COATED) 81 mg EC tablet Take by mouth q 24 HR.Active atorvastatin (LIPITOR) 80 mg tablet Take 80 mg by mouth once daily.03/21/2021ctive divalproex DR (DEPAKOTE) 125 mg EC tablet Take 125 mg by mouth once daily.02/28/2021ctive lisinopril-hydroCHLOROthiazide (PRINZIDE,ZESTORETIC) 20-12.5 mg per tablet Take 1 tablet by mouth once daily.04/16/2021ctive metoprolol trujillo-hydrochlorothiaz 25-12.5 mg Tb24 Take by mouth.Active nitroglycerin sublingual (NITROQUICK) 0.4 mg SL tablet USE 1 UNDER THE TONGUE EVERY 5 MIN FOR CHEST PAIN. MAX 3 TABS IN 15 MIN. CALL 911 IF PAIN PERSISTS.02/20/2021ctive BRILINTA 90 mg tablet Take 90 mg by mouth twice daily.04/17/2021ctive Social History Tobacco UseTypesPacks/DayYears UsedDateSmoking Tobacco: Every DaySmokeless Tobacco: NeverAlcohol UseStandard Drinks/WeekCommentsNot Currently0 (1 standard drink = 0.6 oz pure alcohol)PHQ-2AnswerDate RecordedPHQ-2 etoka008/2022Sex and Gender InformationValueDate RecordedSex Assigned at BfntoZgrp64/14/2022 10:20 AM ESTLegal TmgHtpk5004/12/2021 11:49 AM ESTGender XwskkacnIlkq69/14/2022 10:20 AM ESTSexual RdfrcwessdsBgrvifqj13/14/2022 10:20 AM EST Last Filed Vital Signs Vital SignReadingTime TakenCommentsBlood Alirvtmn568/7104 10:10 AM EDT Wvvtq3676/05/2022 10:10 AM EDTTemperature--Respiratory Tetm382306/06/2021 10:10 AM EDTOxygen Pmveezmowp43%06/06/2021 10:10 AM EDTInhaled Oxygen Concentration-- Qhtops013.8 kg (257 lb 8 oz)06/06/2021 10:10 AM YEWMzrygw731 cm (6' 2 ) 06/06/2021 10:10 AM EDTBody Mass Index33.0604 10:10 AM EDT Plan of Treatment Health MaintenanceDue DateLast DoneCommentsAnxiety Cqsctdzsn72/07/1984Depression Esccbsldj99/07/1984HIV Qqgidxfxa97/07/1984Hepatitis C Svhqscpzw98/07/1984 DTaP,Tdap,Td Vaccine (1 - Tdap)1984CT Pumcjooiygpx78/07/2011Cologuard (FIT-DNA)07/08/20102924Jmqdtplbmwq54/07/2011Colorectal Cancer Wdfxaazvu54/07/2011 Fecal Occult Blood2010Prostate Cancer Screening Yeromicqxj12/07/2011 Aqlegaehovpqo70/07/2011Pneumococcal Vaccine: 50+ (1 of 1 - PCV)07/09/2015 Shingrix Vaccine (1 of 2)07/09/2015Diabetes Ebgpvryok23/09/453454/11/2020, 05/03/2020, 11/02/2019, Additional history existsCovid-19 Vaccine (1 - 2024- season)2024Influenza Vaccine (#1)509/03/2019, 01/21/2019, 01/21/2019, Additional history existsLipid Itzwlpmcv54, 11/05/2018RSV Vaccine (1 - 1-dose 75+ series)2040 Insurance MemberSubscriberPlan / Payer (Effective 2021-Present)Name:Dale Belcher Relation to Subscriber:SelfName:Dale Belcher Payer ID:[id number] (NAIC) Type:PPO Address: [facility] [address] [place] [id number]
--- OUTSIDE RECORDS SUMMARY | 2025-02-17 12:44 | XMS_ITS | Clinical Summary ---
Author Organization [facility] Address [address], [address] [place] [address] Care Team Providers Care Repair Miller Name Role Phone Kash Killian MD Primary Care Provider + Allergies No known active allergies Medications MedicationSigDispense QuantityRefillsLast FilledStart DateEnd DateStatus rizatriptan (MAXALT) 10 MG tablet Take 1 tablet by mouth once as needed for Migraine May repeat in 2 hours if needed 9 tablet Active cyclobenzaprine (FLEXERIL) 10 MG tablet Take 1 tablet by mouth 2 times daily as needed for Muscle spasms 30 tablet 01/06/2020Active rOPINIRole (REQUIP) 1 MG tablet TAKE 1 TABLET BY MOUTH EVERY DAY 90 tablet 03/15/2020ctive lisinopril-hydroCHLOROthiazide (PRINZIDE;ZESTORETIC) 20-12.5 MG per tablet TAKE 1 TABLET BY MOUTH EVERY DAY 90 tablet ctive albuterol sulfate HFA (VENTOLIN HFA) 108 (90 Base) MCG/ACT inhaler Inhale 2 puffs into the lungs 4 times daily as needed for Wheezing 1 Inhaler 06/14/2020ctive divalproex (DEPAKOTE) [address] tablet TAKE 1 TABLET BY MOUTH TWICE A DAY 180 tablet 08/30/2020ctive Active Problems ProblemNoted DateDiagnosed DateAcute upper respiratory infection, unspecified 03/17/2018Nicotine dependence, cigarettes, tlxsiciizbyar23/14/2019 Resolved Problems ProblemNoted DateDiagnosed DateResolved XwggAidwp24 Immunizations ImmunizationAdministration DatesNext DueInfluenza Virus Elsnmkf6701/21/2019 Influenza, AFLURIA (age 3 y+), FLUZONE, (age 6 mo+), Quadv MDV, 0.5mL01/21/2019 Influenza, FLUARIX, FLULAVAL, FLUZONE (age 6 mo+) and AFLURIA, (age 3 y+), Quadv PF, 0.5mL12/02/2016 Family History Medical HistoryRelationNameCommentsCOPDFatherHeart FailureFatherCancerMother RelationNameStatusCommentsFatherMotherBREAST CANCER Social History Tobacco UseTypesPacks/DayYears UsedDateSmoking Tobacco: Every DayCigarettes1.540 Smokeless Tobacco: Never Tobacco Cessation:Ready to Q uit: Yes; Counseling Given: Yes Alcohol UseStandard Drinks/WeekCommentsYes1 (1 standard drink = 0.6 oz pure alcohol)very rarePHQ-2AnswerDate RecordedPHQ-9 Total Bjzli391ex and Gender InformationValueDate RecordedSex Assigned at BirthNot on fileLegal Sex Male10/07/2018 10:37 AM EDTGender IdentityNot on fileSexual OrientationNot on file Last Filed Vital Signs Vital SignReadingTime TakenCommentsBlood Pjioymnt920/9204/28/2020 3:03 PM EST Lqydl252704/28/2020 3:03 PM NMOKcrzhuwmlsu32.8 ??C (98.3 ??F)04/28/2020 3:03 PM ESTRespiratory Gusf683611/10/2019 1:25 PM EDTOxygen Dmeezlyuyd89%04/28/2020 3:03 PM ESTInhaled Oxygen Concentration--Eqmsud080.7 kg (275 lb)11/10/2019 10:06 AM ESUClbfun425 cm (6' 2 )11/10/2019 10:06 AM EDTBody Mass Index35.31011/10/2019 10:06 AM EDT Plan of Treatment Not on file Insurance Care Teams Team MemberRelationshipSpecialtyStart DateEnd Kash Kililan MD [address] [place] [id number] [facility]
--- OUTSIDE RECORDS SUMMARY | 2025-02-17 12:44 | XMS_ITS | Continuity of Care Document ---
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 Name Role Phone Unavailable Primary Care Provider Unavailabl e Encounters DateTypeDepartmentCare OzevVfgszovjdhk76/14/2022eCW Legacy Documentation NOMS DATA CONVERSION LEGACY 01/04/2022 Non Patient Presenting NOMS DATA CONVERSION LEGACY Romero Oakley PA 01/01/2022eCW Legacy Documentation NOMS DATA CONVERSION LEGACY 12/18/2021eCW Legacy Documentation NOMS DATA CONVERSION LEGACY 12/01/2021eCW Legacy Documentation NOMS DATA CONVERSION LEGACY 12/01/2021 Non Patient Presenting NOMS DATA CONVERSION LEGACY 12/01/2021 Non Patient Presenting NOMS DATA CONVERSION LEGACY 01/06/2020 Non Patient Presenting NOMS DATA CONVERSION LEGACY Patria Willams NP 01/19/2019 Non Patient Presenting NOMS DATA CONVERSION LEGACY Magda Slade MD 07/27/2018 Non Patient Presenting NOMS DATA CONVERSION LEGACY Magda Slade MD 07/27/2018 Non Patient Presenting NOMS DATA CONVERSION LEGMagda Coffman MD 07/04/2018 Non Patient Presenting NOMS DATA CONVERSION Magda Davenport MD 05/05/2018 Non Patient Presenting NOMS DATA CONVERSION Magda Davenport MD 04/25/2018gac Non Patient Presenting NOMS DATA CONVERSION Magda Davenport MD 03/27/2018gac Non Patient Presenting NOMS DATA CONVERSION Magda Davenport MD 03/18/2018Legac Non Patient Presenting NOMS DATA CONVERSION LEGMagda Coffman MD 03/13/2018eCW Legacy Documentation NOMS DATA CONVERSION LEGACY 03/13/2018 Lab NOMS DATA CONVERSION LEGMagda Coffman MD 02/27/2018 Non Patient Presenting NOMS DATA CONVERSION LEGMagda Coffman MD 01/15/2018 Non Patient Presenting NOMS DATA CONVERSION LEGMagda Coffman MD 01/15/2018 Non Patient Presenting NOMS DATA CONVERSION LEGMagda Coffman MD 01/15/2018 Non Patient Presenting NOMS DATA CONVERSION LEGMagda Coffman MD 11/27/2017 Non Patient Presenting NOMS DATA CONVERSION LEGACY Magda Slade MD 11/26/2017 Non Patient Presenting NOMS DATA CONVERSION LEGMagda Coffman MD 10/09/2017 Non Patient Presenting NOMS DATA CONVERSION LEGMagda Coffman MD 08/30/2017eCW Legacy Documentation NOMS DATA CONVERSION LEGACY 08/23/2017eCW Legacy Documentation NOMS DATA CONVERSION LEGACY 08/21/2017 Non Patient Presenting NOMS DATA CONVERSION LEGMagda Coffman MD 08/01/2017 Non Patient Presenting NOMS DATA CONVERSION LEGACY Magda Slade MD Abnormal findings on diagnostic imaging of other parts of musculoskeletal system 07/30/2017eCW Legacy Documentation NOMS DATA CONVERSION LEGACY 07/30/2017 Imaging NOMS DATA CONVERSION LEGACY Andrea Greene MD Lumbago with sciatica, left side05/07/2017 Non Patient Presenting NOMS DATA CONVERSION LEGACY Magda Slade MD 04/25/2017 Imaging NOMS DATA CONVERSION LEGACY Andrea Greene MD Pain in left knee04/12/2017 Non Patient Presenting NOMS DATA CONVERSION LEGACY Magda Slade MD Essential (primary) hypertension; Other specified congenital deformities of feet04/09/2017 Non Patient Presenting NOMS DATA CONVERSION Magda Davenport MD 03/26/2017eCW Legacy Documentation NOMS DATA CONVERSION LEGACY 03/21/2017eCW Legacy Documentation NOMS DATA CONVERSION LEGACY 03/11/2017 Non Patient Presenting NOMS DATA CONVERSION LEGACY BerlinMagda MD Benign prostatic hyperplasia without lower urinary tract symptoms Social History Tobacco UseTypesPacks/DayYears UsedDateSmoking Tobacco: Never AssessedSex and Gender InformationValueDate RecordedSex Assigned at BirthNot on fileLegal Sex Male05/16/2022 8:00 PM EDTGender IdentityNot on fileSexual OrientationNot on file Last Filed Vital Signs Vital SignReadingTime TakenCommentsBlood Satmfwew635/7009 12:00 PM EDT Pulse--Temperature--Respiratory Rate--Oxygen Saturation--Inhaled Oxygen Concentration--Kllics504 kg (257 lb)01/01/2022 12:00 PM WFMHsxxib852.4 cm (6' 1 )01/01/2022 12:00 PM EDTBody Mass Index33.9101/01/2022 12:00 PM EDT Plan of Treatment Not on file Procedures Procedure NamePriorityDate/TimeAssociated DiagnosisCommentsXR FOOT 3+ VIEWS LEFT Yddwzfu5412/27/2021 12:00 PM EDT Pain in left foot Other specified soft tissue disorders XR FOOT 3+ VIEWS XAPGPnllnjk39/24/2022 12:00 PM EDT Pain in left foot Other specified soft tissue disorders MRI FOOT LT WO SLXZvlfmeh67/17/2022 Pain in left foot Other specified soft tissue disorders XR CHEST 2 LKACBQggmofb29/10/2019 X RAY : ANKLE, LEFT 1NJekwuiw69/02/2018 12:00 PM EDT Flat foot (pes planus) (acquired), left foot Pain in left ankle and joints of left foot Secondary osteoarthritis, 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 X RAY : FOOT, LEFT 7STrccxvk81/02/2018 12:00 PM EDT Flat foot (pes planus) (acquired), left foot Pain in left ankle and joints of left foot Secondary osteoarthritis, 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 MR LUMBAR SPINE WO BWZEIWROIvwceea91/16/2018 12:00 PM EDT Other chronic pain Lumbago with sciatica, right side Lumbago with sciatica, left side Tobacco use Encounter for general adult medical examination without abnormal findings Essential (primary) hypertension Episodic tension-type headache, intractable Unspecified acquired deformity of left lower leg XR KNEE 3 VIEWS VJWKNuwseaw92/22/2018 Pain in left knee X RAY : ELBOW, EHEIQknggem71/01/2018 12:00 PM EST Lateral epicondylitis, left elbow Results * XR foot 3+ views left (12/27/2021 12:00 PM EDT) Only the most recent of2 resultswithin the time period is included. Anatomical RegionLateralityModalityLower Extremities, FootLeftRadiographic ImagingSpecimen (Source)Anatomical Location / LateralityCollection Method / VolumeCollection TimeReceived Time12/27/2021 12:00 PM EDT Narrative 12/27/2021 12:00 PM EDT PERFORMED AT [facility] LOCATION:[id number] Procedure Note CONVERSION, GENERIC - 07/18/2022 PERFORMED AT [facility] LOCATION:[id number] Authorizing ProviderResult TypeResult StatusMattkatherin Oakley [facility] XR PROCEDURES Final Result * MRI FOOT LT WO CON (12/18/2021)Anatomical RegionLateralityModalityRadiographic ImagingSpecimen (Source)Anatomical Location / LateralityCollection Method / VolumeCollection TimeReceived Time12/18/2021 Narrative 12/28/2021 12:00 AM EDT PERFORMED AT [facility] LOCATION:[place] 112 150 EXAM: MRI FOOT LT WO [...] tendinous injury. Electronically authenticated by: RAJIV PEACOCK ?? Date: 2022-01-01 08:53 Procedure Note CONVERSION, GENERIC - 07/19/2022 PERFORMED AT [facility] LOCATION:[place] 112 150 EXAM: MRI FOOT LT WO [...] authenticated by: RAJIV PEACOCK Date: 2022-01-01 08:53 Authorizing ProviderResult TypeResult StatusMattkaliew William Oakley PAI XR PROCEDURES Final Result * XR chest 2 views (03/13/2018)Anatomical RegionLateralityModalityChest Radiographic ImagingSpecimen (Source)Anatomical Location / Laterality Collection Method / VolumeCollection TimeReceived Time03/13/2018 Narrative 03/13/2018 12:00 AM EST PERFORMED AT [facility] LOCATION:[address] [address] Patient: ? ASHOK BELCHER ? Exam Date: ? 03/13/2018 : ? 1965 ?Gender:M ? Ordering : ? ALEIDA RUELAS . ? Admission #: ? [id number] Family : ?Order #: ? [id number] CLICK HERE TO VIEW EXAM RADIOLOGY REPORT PROCEDURE: ? RADIOGRAPH CHEST 2 VIEWS COMPARISON: ? None. INDICATIONS: ? Acute cough, shortness of breath FINDINGS: LUNGS: ? No significant pulmonary parenchymal abnormalities. VASCULATURE: ? No increased pulmonary vasculature. PLEURA: ? No pneumothorax, effusion, or pleural thickening. CARDIAC: ? No cardiomegaly or cardiac silhouette abnormality. MEDIASTINUM: ? No visible mass or adenopathy. BONES: ? No fracture or visible bone lesion. OTHER: ? Negative. CONCLUSION: ? No acute disease. Dictated by: Geo Vargas M.D. on 03/13/2018 at 14:03 Approved by: Geo Vargas M.D. on 03/13/2018 at 14:04 Procedure Note CONVERSION, GENERIC - 07/18/2022 PERFORMED AT [facility] LOCATION:[place] [address] [place] [address] Patient: ASHOK BELCHER Exam Date: 03/13/2018 : 1965 Gender:M Ordering : ALEIDA RUELAS . Admission #: [id number] Family : Order #: [id number] CLICK HERE TO VIEW EXAM RADIOLOGY REPORT [...] Geo Vargas M.D. on 03/13/2018 at 14:04 Authorizing ProviderResult TypeResult Mana Slade MDIMG XR PROCEDURES Final Result * X RAY : FOOT, LEFT 2V (10/03/2017 12:00 PM EDT)Anatomical RegionLaterality ModalityRadiographic ImagingSpecimen (Source)Anatomical Location / Laterality Collection Method / VolumeCollection TimeReceived Time10/03/2017 12:00 PM EDT Narrative 10/03/2017 12:00 PM EDT PERFORMED AT [facility] LOCATION:[id number] Procedure Note CONVERSION, GENERIC - 07/18/2022 PERFORMED AT [facility] LOCATION:[id number] Authorizing ProviderResult TypeResult Nomi Conklin MDIMG XR PROCEDURESFinal Result * X RAY : ANKLE, LEFT 3V (10/03/2017 12:00 PM EDT)Anatomical RegionLaterality ModalityRadiographic ImagingSpecimen (Source)Anatomical Location / Laterality Collection Method / VolumeCollection TimeReceived Time10/03/2017 12:00 PM EDT Narrative 10/03/2017 12:00 PM EDT PERFORMED AT [facility] LOCATION:[id number] Procedure Note CONVERSION, GENERIC - 07/18/2022 PERFORMED AT [facility] LOCATION:[id number] Authorizing ProviderResult TypeResult StatusDanny Conklin MDIMG XR PROCEDURESFinal Result * MR lumbar spine wo contrast (07/17/2017 12:00 PM EDT)Anatomical Region LateralityModalitySpine, L-spineMagnetic ResonanceSpecimen (Source)Anatomical Location / LateralityCollection Method / VolumeCollection TimeReceived Time 07/17/2017 12:00 PM EDT Narrative 07/17/2017 12:00 PM EDT PERFORMED AT [facility] LOCATION:[id number] Procedure Note CONVERSION, GENERIC - 07/18/2022 PERFORMED AT [facility] LOCATION:[id number] Authorizing ProviderResult TypeResult StatusMagda Slade MDIMG MRI PROCEDURES Final Result * XR knee 3 views left (04/25/2017)Anatomical RegionLateralityModalityLower Extremities, KneeLeftRadiographic ImagingSpecimen (Source)Anatomical Location / LateralityCollection Method / VolumeCollection TimeReceived Time04/25/2017 Narrative 04/25/2017 12:00 AM EST PERFORMED AT [facility] LOCATION:[place] [address] Procedure Note CONVERSION, GENERIC - 07/18/2022 PERFORMED AT [facility] LOCATION:[place] [address] Authorizing ProviderResult TypeResult StatusPaulina Dillard NPIMG XR PROCEDURES Final Result * X RAY : ELBOW, LEFT (04/04/2017 12:00 PM EST)Anatomical RegionLaterality ModalityRadiographic ImagingSpecimen (Source)Anatomical Location / Laterality Collection Method / VolumeCollection TimeReceived Time04/04/2017 12:00 PM EST Narrative 04/04/2017 12:00 PM EST PERFORMED AT [facility] LOCATION:[id number] Procedure Note CONVERSION, GENERIC - 07/18/2022 PERFORMED AT [facility] LOCATION:[id number] Authorizing ProviderResult TypeResult StatusNasir RiveraG XR PROCEDURESFinal Result Visit Diagnoses DiagnosisStart Date Benign prostatic hyperplasia without lower urinary tract symptoms 03/11/2017 Essential (primary) hypertension Unspecified essential hypertension 04/12/2017 Other specified congenital deformities of feet 04/12/2017 Pain in left knee 04/25/2017 Lumbago with sciatica, left side 07/30/2017 Abnormal findings on diagnostic imaging of other parts of musculoskeletal system 08/01/2017
--- OUTSIDE RECORDS SUMMARY | 2025-02-17 12:44 | XMS_ITS | Clinical Summary ---
Author Organization [facility] Address [address] [place] [address] Care Team Providers Care Annealing Operator Name Role Phone Colten Parra DO Primary Care Provider [phone] Allergies No known active allergies Medications MedicationSigDispense QuantityRefillsLast FilledStart DateEnd DateStatus atorvastatin (Lipitor) 80 mg tablet Take 80 mg by mouth in the morning.03/09/2022ctive HYDROcodone-acetaminophen (Hunter) 5-325 mg tablet Take 1 tablet by mouth if needed in the morning and at bedtime.04/18/2022ctive divalproex (Depakote) 125 mg EC tablet Take 125 mg by mouth in the morning.02/22/2022ctive lisinopriL-hydrochlorothiazide 20-12.5 mg tablet Take 1 tablet by mouth in the morning.04/04/2022ctive methylPREDNISolone (Medrol Dospak) 4 mg tablets TAKE 6 TABLETS ON DAY 1 DIRECTED ON PACKAGE AND DECREASE BY 1 TAB EACH DAY FOR A TOTAL OF 6 DAYS05/04/2022ctive metoprolol tartrate (Lopressor) 25 mg tablet TAKE 1 TABLET (25 MG TOTAL) BY MOUTH IN THE MORNING AND AT BEDTIME.02/22/2022 Active tiZANidine (Zanaflex) 4 mg capsule TAKE 1 CAPSULE EVERY DAY AT BEDTIME ANOHDS4204/15/2022ctive apixaban (Eliquis) 5 mg tablet Take 5 mg by mouth in the morning and at bedtime.Active aspirin 81 mg EC tablet Take 81 mg by mouth in the morning.Active apixaban (Eliquis) 5 mg tablet Indications:History of DVT (deep vein thrombosis)Take 1 tablet (5 mg) by mouth in the morning and at bedtime. 60 tablet 303/07/2023Active Active Problems ProblemNoted DateDiagnosed DateCellulitis of right leg3Primary hmajkpnwfnjl59/21/2023Right leg pain3Acute upper respiratory infection, mmglqxrsifj14/14/2019Nicotine dependence, cigarettes, mnnlkcpylhxub63/14/2019 Social History Tobacco UseTypesPacks/DayYears UsedDateSmoking Tobacco: Every XorLgjxatcqry053 Smokeless Tobacco: Never Tobacco Cessation:Ready to Q uit: Not Asked; Counseling Given: Not Answered Alcohol UseStandard Drinks/WeekCommentsYes0 (1 standard drink = 0.6 oz pure alcohol)UT Safety & EnvironmentAnswerDate RecordedFear of Current or Ex-Partner Not on file04/25/2023Emotionally AbusedNot on file04/25/2023hysically AbusedNot on file04/25/2023Sexually AbusedNot on file04/25/2023hysically or Sexually AbusedNot on file04/25/2023Sex and Gender InformationValueDate RecordedSex Assigned at BirthNot on fileLegal RvwMogj8604/27/2022 2:26 PM ESTGender Identity Not on fileSexual OrientationNot on file Last Filed Vital Signs Vital SignReadingTime TakenCommentsBlood Wnpwigrg377/7903 2:29 PM EST Djsci7704/07/2023 2:29 PM ESTTemperature--Respiratory Rate--Oxygen Flkajhgzaj05% 05/08/2022 2:29 PM ESTInhaled Oxygen Concentration--Grcejw622 kg (250 lb) 05/08/2022 2:29 PM BBQOifadj145 cm (6' 2 )05/08/2022 2:29 PM ESTBody Mass Index 32.103 2:29 PM EST Plan of Treatment Health MaintenanceDue DateLast DoneCommentsCT Ntfshhjwaavn83/07/1966Colonoscopy 1965FIT-DNA1965FOBT1965 5923Hqnzmmnucgowg45/07/1966Depression Iebifdije38/07/1978Hepatitis B Vaccines (1 of 3 - 19+ 3-dose series)1984 Pneumococcal Vaccine: Pediatrics (0 to 5 Years) and At-Risk Patients (6 to 64 Years) (1 of 2 - PCV)1984Adult Jkescfk7607/09/1987Zoster Vaccines (1 of 2) 07/09/2015Colorectal Cancer Blwsjkxiw03/20/6789DKV213COVID-19 Vaccine (1 - 2024- season)2024Influenza Vaccine (#1)2024 11/03/2019, 01/21/2019, 01/02/2019, Additional history existsHIB VaccinesAged OutNo longer eligible based on patient's age to complete this topicHPV Vaccines Aged OutNo longer eligible based on patient's age to complete this topicIPV VaccinesAged OutNo longer eligible based on patient's age to complete this topic Meningococcal B VaccineAged OutNo longer eligible based on patient's age to complete this topicMeningococcal VaccineAged OutNo longer eligible based on patient's age to complete this topicRotavirus VaccinesAged OutNo longer eligible based on patient's age to complete this topic Insurance * Guarantor: Donell Belcher TypeRelation to PatientDate of BirthPhone Billing AddressWorkers RpomKjnc75/[birth year][address] [address] Care Teams Team MemberRelationshipSpecialtyStart DateEnd Date Colten Parra DO [facility]05/08/22
--- OUTSIDE RECORDS SUMMARY | 2025-02-18 08:48 | XMS_ITS | Encounter Summary ---
Author Organization [facility] Address [id number] [address] [place] [address] Care Team Providers Care Call Center Analyst Name Role Phone ElisaColten figueroa Primary Care Provider [phone] Encounter Details DateTypeDepartmentCare Team (Latest Contact Info)Ebmejtnjexr08/08/2025Travel Social History Tobacco UseTypesPacks/DayYears UsedDateSmoking Tobacco: Every YltHgrpcajswu598 Started: 1978Smokeless Tobacco: NeverAlcohol UseStandard Drinks/WeekCommentsYes0 (1 standard drink = 0.6 oz pure alcohol)rarelyPHQ-2AnswerDate RecordedTotal Wajpu94903/13/2024UDIT-CAnswerDate RecordedQ1: How often do you have a drink containing alcohol?Monthly or less12/23/2024Q2: How many drinks containing alcohol do you have on a typical day when you are drinking?1 or Q3: How often do you have six or more drinks on one occasion?Never12/23/2024 ChildcareAnswerDate RecordedDo problems getting child life therapist make it difficult for you to work or study?No01/11/2025EmploymentAnswerDate RecordedEmploymentUnknown 08/13/2018Hunger ScreeningAnswerDate RecordedWithin the past 12 months we worried whether our food would run out before we got money to buy more.Never True01/11/2025Within the past 12 months the food we bought just didn't last and we didn't have money to get more.Never True01/11/2025Purpose - LifeAnswerDate RecordedPurpose and direction in xwcfJzjaplp57/11/2021ex and Gender Information ValueDate RecordedSex Assigned at BirthNot on fileLegal LqaPuqf1010/07/2014 12:13 PM EDTGender IdentityNot on fileSexual OrientationNot on filedocumented as of this encounter Plan of Treatment DateTypeDepartmentCare Team (Latest Contact Info)Ddpioswesfv83/11/2026 9:30 AM EDTOffice Visit [facility] [address] [place] [address] Colten Parra DO [address] [facility] [place] [address] 10/06/2025 1:15 PM EDTOffice Visit [facility] [address] [place] [address] [place] [address] Сергей Lucas MD [address] [place] [address] documented as of this encounter Goals GoalPatient [...] follow-up plan has been documented for the yacwbsw8601/11/2025 5:46 PM ESTdocumented as of this encounter Care Teams Team MemberRelationshipSpecialtyStart DateEnd Date Colten Parra DO [address] [facility] [place] [address] PCP - GeneralFamily Medicine04/03/22documented as of this encounter
--- OUTSIDE RECORDS SUMMARY | 2025-02-18 08:48 | XMS_ITS | Clinical Summary ---
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 Phone Unavailable Primary Care Provider [...] drink = 0.6 oz pure alcohol)PHQ-2AnswerDate RecordedPHQ-2 oweep019/2022Sex and Gender InformationValueDate RecordedSex Assigned at LohkhCddh20/14/2022 10:20 AM ESTLegal CknWyqd8104/12/2021 11:49 AM ESTGender OwbnbqzcBqjs70/14/2022 10:20 AM ESTSexual TppacdrgqzzVezdpxvx44/14/2022 10:20 AM EST Last Filed Vital Signs Vital SignReadingTime TakenCommentsBlood Ztxjdmwb486/7104 10:10 AM EDT Vfbak9554/05/2022 10:10 AM EDTTemperature--Respiratory Ykai732406/06/2021 10:10 AM EDTOxygen Nyhjkfyuzr37%06/06/2021 10:10 AM EDTInhaled Oxygen Concentration-- Epusvd099.8 kg (257 lb 8 oz)06/06/2021 10:10 AM ZZQEtmswy234 cm (6' 2 ) 06/06/2021 10:10 AM EDTBody Mass Index33.0604 10:10 AM EDT Plan of Treatment Health MaintenanceDue DateLast DoneCommentsAnxiety Wrpspfqtq36/07/1984Depression Xpjhbqibm56/07/1984HIV Lcbhfuzis10/07/1984Hepatitis C Lvsowrddv48/07/1984 DTaP,Tdap,Td Vaccine (1 - Tdap)1984CT Vwidecznyazl44/07/2011Cologuard (FIT-DNA)07/08/20101562Lhrfvtmlwmo74/07/2011Colorectal Cancer Kwckwvlpg19/07/2011 Fecal Occult Blood2010Prostate Cancer Screening Ovmyjbqpru30/07/2011 Ovzyahdhpertv09/07/2011Pneumococcal Vaccine: 50+ (1 of 1 - PCV)07/09/2015 Shingrix Vaccine (1 of 2)07/09/2015Diabetes Oeexzvmty97/09/475645/11/2020, 05/03/2020, 11/02/2019, Additional history existsCovid-19 Vaccine (1 - 2024- season)2024Influenza Vaccine (#1)509/03/2019, 01/21/2019, 01/21/2019, Additional history existsLipid Bnsaaihbq17, 11/05/2018RSV Vaccine (1 - 1-dose 75+ series)2040 Insurance MemberSubscriberPlan / Payer (Effective 2021-Present)Name:Dale Belcher Relation to Subscriber:SelfName:Dale Belcher Payer ID:[id number] (NAIC) Type:PPO Address: [facility] [id number] [place] [id number]
--- OUTSIDE RECORDS SUMMARY | 2025-02-18 08:48 | XMS_ITS | Continuity of Care Document ---
Author Organization [facility] Address [address] [place] [address] Phone Care Team Providers Care Assistant Director Of Admissions Name Role Phone Colten Parra Primary Care Provider Encounters DateTypeDepartmentCare PjclXiiquqycjjg79/25/2025Refill at [facility] [address] [place] [phone] Rubia Verduzco LPN Primary hypertension (Primary Dx)08/21/2024Telephone at [facility] [address] [place] [phone] Vanessa Ambriz LPN Error (VOID this visit)08/21/20249994Odbbhl95/20/2025 9:45 AM EDTOffice Visit at [facility] [place] [facility] [address] [place] [phone] Jean Claude Stacy MD Atherosclerosis of yuhaaviatam coronary artery of yuhaaviatam heart without angina pectoris; Medication course changed; Primary hypertension; Mixed hyperlipidemia; Palpitations; Current every day smoker; Sleep apnea with use of continuous positive airway pressure (CPAP); BMI 35.0-35.9,adult08/17/2024Scanned Document [facility] [address] [place] [address] Scanning, Generic Provider 03/24/2024Refill at [facility] [place] [facility] [address] [place] [address] Vanessa Ambriz LPN Primary hypertension; Mixed hyperlipidemia; Shortness of breath; Rlfkzkmvltof45/13/2025Refill at [facility] [address] [facility] [address] [place] [address] Jean Claude Stacy MD Primary gwfkbyadbhuf06/05/2025Refill at [facility] [address] [address] Jean Claude Stacy MD Primary hypertension; Izmkwlqytpfa70/20/8611Wyqfan21/20/2024 1:15 PM ESTOffice Visit at [facility] [address] [phone] Jean Claude Stacy MD Shortness of breath; Encounter to discuss test results; History of PTCA; Mixed hyperlipidemia; Primary hypertension; Current every day smoker; BMI 37.0-37.9, adult; Medication course changed; Hypertension, unspecified type; Atherosclerosis of yuhaaviatam coronary artery of yuhaaviatam heart without angina pectoris; Other hyperlipidemia; Sleep apnea with use of continuous positive airway pressure (CPAP); History of ST elevation myocardial infarction (STEMI); BMI 35.0-35.9,adult01/09/2024Scanned [facility] [address] [place] [phone] Scanning, Generic Provider 01/09/2024Orders Only [facility] [address] [place] [address] Leonid Morrissey DO 01/07/2024Telephone at [facility] [address] [facility] [address] [place] [address] Jean Claude Stacy MD 01/06/20241920Ntjvnm56/04/2024 3:15 PM ESTOffice Visit at [facility] [address] [phone] Jean Claude Stacy MD Coronary artery disease involving yuhaaviatam coronary artery of yuhaaviatam heart with unstable angina pectoris (Multi) (Primary Dx); Encounter to discuss test results; Shortness of breath; History of PTCA; History of ST elevation myocardial infarction (STEMI); Primary hypertension; Other hyperlipidemia; Palpitations; Acute cough; Sleep apnea with use of continuous positive airway pressure (CPAP); BMI 37.0-37.9, adult; Current every day smoker; Fatigue, unspecified type; Medication course changed; Chest pain, unspecified type; Abnormal nuclear stress test12/24/20233379Bckmjq35/22/2024 3:00 PM EDTAncillary Procedure [facility] [address] [facility] [address] [place] [address] Hypertension, unspecified type; Atherosclerosis of yuhaaviatam coronary artery of yuhaaviatam heart without angina pectoris; Current every day smoker; Other hyperlipidemia; Palpitations; Unstable angina pectoris (Multi); Sleep apnea with use of continuous positive airway pressure (CPAP); History of ST elevation myocardial infarction (STEMI); History of PTCA; Shortness of breath; Acute cough; BMI 35.0-35.9,adult12/24/2023 2:30 PM EDTAncillary Procedure [address] [address] Hypertension, unspecified type; Atherosclerosis of yuhaaviatam coronary artery of yuhaaviatam heart without angina pectoris; Current every day smoker; Other hyperlipidemia; Palpitations; Unstable angina pectoris (Multi); Sleep apnea with use of continuous positive airway pressure (CPAP); History of ST elevation myocardial infarction (STEMI); History of PTCA; Shortness of breath; Acute cough; BMI 35.0-35.9,adult; Chest pain, yslishcxeya70/22/2024 2:00 PM EDTAncillary Procedure [facility] [address] [address] 12/24/2023 1:30 PM EDTAncillary Procedure [address] [address] 12/24/2023 1:00 PM EDTAncillary Procedure [address] [address] Primary hypertension (Primary Dx); Atherosclerosis of yuhaaviatam coronary artery of yuhaaviatam heart with stable angina pectoris; Current every day flwzzx0512/24/2023 12:30 PM EDTAncillary Procedure [facility] [address] [facility] [address] [place] [address] 12/24/2023 12:00 PM EDTAncillary Procedure [facility] [address] [facility] [address] [place] [address] Hypertension, unspecified type; Atherosclerosis of yuhaaviatam coronary artery of yuhaaviatam heart without angina pectoris; Current every day smoker; Other hyperlipidemia; Palpitations; Unstable angina pectoris (Multi); Sleep apnea with use of continuous positive airway pressure (CPAP); History of ST elevation myocardial infarction (STEMI); History of PTCA; Shortness of breath; Acute cough; BMI 35.0-35.9,adult12/13/20231378Qaiffl37/11/2024 11:30 AM EDTOffice Visit [place] [address] [facility] [address] [place] [address] Jose Cuevas MD Hypertension, unspecified type; Atherosclerosis of yuhaaviatam coronary artery of yuhaaviatam heart without angina pectoris; Current every day smoker; Other hyperlipidemia; Palpitations; Unstable angina pectoris (Multi); Sleep apnea with use of continuous positive airway pressure (CPAP); History of ST elevation myocardial infarction (STEMI); History of PTCA; Shortness of breath; Acute cough; BMI 35.0-35.9,adult12/11/2023Telephone [facility] [address] [place] [phone] Vanessa Ambriz LPN soontevin OV08/28/20236253Pxkwnn97/26/2024 2:00 PM EDTOffice Visit [facility] [address] [address] Leonid Figueredo MD Atherosclerosis of yuhaaviatam coronary artery of yuhaaviatam heart without angina pectoris (Primary Dx); History of PTCA; Mixed hyperlipidemia; Primary hypertension; Current every day smoker; BMI 35.0-35.9,adult04/02/2023bstract [facility] [address] [place] [phone] ProviderSakshi MD 4Ref[facility] 7[address] [facility] [address] [place] [phone] Leonid Figueredo MD Primary nesnkhpjmgmj71/25/2023Legacy Encounter DOCTOR OFFICE LEGACY [address] Birdie Smith, ORGAN PIPE VOICER-COURTESY DRIVER 03/08/2022Legacy Encounter [facility] CLINICAL LEGACY [address] [place] [address] Conversion, Touchworks 01/08/2022Legacy Encounter [facility] [address] [place] [address] Conversion, Touchworks 10/19/2021Legacy Encounter [facility] LEGAC[facility] [address] [place] [address] Leonid Figueredo MD 10/19/2021Legacy Encounter DOCTOR OFFICE LEGACY [address] Leonid Figueredo MD 08/28/2021Legacy Encounter [facility] LEGAC[facility] [address] [place] [address] Conversion, Touchworks 08/24/2021Legacy Encounter [facility] LEGAC[facility] [address] [place] [address] Conversion, Touchworks 08/23/2021Legacy Encounter [facility] LEGAC[facility] [address] [place] [address] Leonid Figueredo MD 06/13/2021Legacy Encounter [facility] LEGAC[facility] [address] [place] [address] Conversion, Touchworks 05/31/2021canned Document [facility] LEGACY [address] [place] [address] Conversion, Onbase 05/26/2021Legacy Encounter [facility] LEGAC[facility] [address] [place] [address] Leonid Figueredo MD 05/26/2021Legacy Encounter DOCTOR OFFICE LEGACY [address] Leonid Figueredo MD 12/27/2020egacy Encounter [facility] CLINICAL LEGACY [address] [place] [address] Kalie Lebron, ORGAN PIPE VOICER-COURTESY DRIVER 12/27/2020 Encounter DOCTOR OFFICE LEGACY [address] Jean Claude Stacy MD 12/23/2020 Encounter [facility] LE[facility] [address] Jean Claude Stacy MD 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 11/30/2020canned Document [facility] [address] [place] [address] Conversion, Onbase 11/29/2020canned Document [facility] [address] [place] [address] Conversion, Onbase 11/21/2020canned Document [facility] [address] [place] [address] Conversion, Onbase 11/20/2020canned Document [facility] LEGACY [address] [place] [address] Conversion, Onbase 11/18/2020 7:17 PM EDT - 11/20/2020 4:00 PM EDTHospital Encounter [facility]PATIENT LEGAC[facility] [address] [address] MD [address] elevation (STEMI) myocardial infarction involving other coronary artery of inferior wall (Multi)(Primary Dx) Discharge Disposition: Home11/19/2020 Encounter [facility] LEGAC[facility] [address] [place] [address] Jerry Bronson MD 11/19/2020canned Document [facility] LEGACY [address] [place] [address] Conversion, Onbase 11/18/2020canned Document [facility] [address] [place] [address] Conversion, Onbase 11/18/2020canned Document [facility] LEGACY [address] [place] [address] Conversion, Onbase 11/18/2020egacy Encounter [facility] LEGAC[facility] [address] [place] [address] Jerry Bronson MD 11/18/2020egacy Encounter [facility] LE[facility] [address] [place] [address] Jean Claude Stacy MD 11/18/2020egacy Encounter [facility] [address] [place] [address] Leia Stearns, ORGAN PIPE VOICER-COURTESY DRIVER 11/18/2020canned Document [facility] LEGACY [address] [place] [address] Conversion, Onbase 11/18/2020canned Document [facility] LEGACY [address] [place] [address] Conversion, Onbase 11/18/2020canned Document [facility] LEGACY [address] [place] [address] Conversion, Onbase 11/18/2020canned Document [facility] LEGACY [address] [place] [address] Conversion, Onbase 11/18/2020egacy Encounter [facility] CLINICAL LEGACY [address] [place] [address] Jerry Bronson MD 11/18/2020ega Encounter [facility] LEGAC[facility] [address] [place] [address] Conversion, Syngo Allergies Active AllergyReactionsCriticalityNoted DateCommentsAmoxicillinNausea/vomiting 08/21/20231233JahlnrmuvjTgnwgvwoxauqAjm81/19/2024Isosorbide MononitrateHeadacheHigh 01/06/2024 Medications MedicationSigDispense QuantityRefillsLast FilledStart DateEnd DateStatus baclofen (Lioresal) 10 mg tablet Take 3 tablets (30 mg) by mouth once daily as needed for muscle spasms. 09/14/2022ctive divalproex (Depakote) 125 mg EC tablet Take 1 tablet (125 mg) by mouth once daily.01/03/2023ctive HYDROcodone-acetaminophen (Braidwood) 5-325 mg tablet Take 1 tablet by mouth 2 times a day as needed.03/20/2023ctive tamsulosin (Flomax) 0.4 mg 24 hr capsule Take 1 capsule (0.4 mg) by mouth 2 times a day.09/09/2023ctive finasteride (Proscar) 5 mg tablet Take 1 tablet (5 mg) by mouth once daily.09/09/2023ctive nitroglycerin (Nitrostat) 0.4 mg SL tablet Indications:Hypertension, unspecified type,Atherosclerosis of yuhaaviatam coronary artery of yuhaaviatam heart without angina pectoris,Current every day smoker,Other [...] Problems ProblemNoted DateDiagnosed DateEncounter to discuss test ckvqljg5201/06/2024 Ohlwjkn9901/06/2024Medication course omowsob2901/06/20246188Rjfgzzukufgj84/11/2024Chest pain12/13/2023Sleep apnea with use of continuous positive airway pressure (CPAP) 12/13/2023Shortness of avbvhp5212/13/20239299Tkbpg54/11/2024MI 35.0-35.9,adult 08/28/2023AD (coronary atherosclerotic disease)04/02/2023History of PTCA 04/02/2023History of ST elevation myocardial infarction (STEMI)04/02/2023 Ezuvvdrtdvhv76/30/2431Jmutrlfhlynf42/30/2024urrent every day aoscvb8304/02/2023 Immunizations ImmunizationAdministration DatesNext DueInfluenza, injectable, quadrivalent 01/21/2019,01/02/2019 Family History Medical HistoryRelationNameCommentsAnginaFatherCOPDFatherCoronary artery disease FatherHeart diseaseFatherpacemakerFatherNo Known ProblemsMotherRelationName StatusCommentsFatherMother Social History Tobacco UseTypesPacks/DayYears UsedDateSmoking Tobacco: Never AssessedSex and Gender InformationValueDate RecordedSex Assigned at EnxkeKpvf52/09/2024 1:53 PM EDTLegal DckKfpl37/26/2022 9:05 AM ESTGender KrhwlkscCowt03/09/2024 1:53 PM EDT Sexual AfbtwqdcfnvYrbdsrmt18/09/2024 1:53 PM EDT Last Filed Vital Signs Vital SignReadingTime TakenCommentsBlood Eowxuzzy724/6406 9:49 AM EDT Qclkb7643 9:49 AM EDTTemperature--Respiratory Rate--Oxygen Saturation-- Inhaled Oxygen Concentration--Ekofeo601 kg (280 lb)08/21/2024 9:49 AM EDTHeight 188 cm (6' 2 )08/21/2024 9:49 AM EDTBody Mass Index35.95008/21/2024 9:49 AM EDT Plan of Treatment DateTypeDepartmentCare Team (Latest Contact Info)Rplhnabqsht63/22/2025 11:00 AM ESTOffice Visit at [facility] [address] [facility] [address] [place] [address] Jean Claude Stacy MD [address] [facility] [address] [place] [address] Procedures Procedure NamePriorityDate/TimeAssociated DiagnosisCommentsOUTSIDE LAB SCAN 08/17/2024 ELECTROCARDIOGRAM 12 LEAD01/09/2024 12:56 PM EST NON-[facility] HIE COAGULATION GUFLSNOWqduezu84/07/2024 12:40 PM EST NON-[facility] HIE B-TYPE NATRIURETIC DKGTDKNQbfweem84/07/2024 12:40 PM EST [facility] H[facility] LIPID IEYWRAsijbek42/07/2024 12:40 PM EST [facility] HIE KPZLDLWJMOJkxvtss81/07/2024 12:40 PM EST [facility] H[facility] BLOOD UREA PJEPGQZCPxbssne78/07/2024 12:40 PM EST NON-[facility] HIE CXRWIRTKRHRMLrhmwap92/07/2024 12:40 PM EST NON-[facility] HIE COMPLETE BLOOD COUNT AUTO EWYIDiccgqr39/07/2024 12:40 PM EST TRANSTHORACIC ECHO (TTE) COMPLETE WITH GYYKQOGAPwaqugc52/22/2024 3:31 PM EDT Hypertension, unspecified type Atherosclerosis of yuhaaviatam coronary artery of yuhaaviatam heart without angina pectoris Current every day smoker Other hyperlipidemia Palpitations Unstable angina pectoris (Multi) Sleep apnea with use of continuous positive airway pressure (CPAP) History of ST elevation myocardial infarction (STEMI) History of PTCA Shortness of breath Acute cough BMI 35.0-35.9,adult Chest pain, unspecified 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 - PRIMARY CARE PROVIDER, PHYSICIAN XOFIXpazfme33/22/2024 3:08 PM EDT Hypertension, unspecified type Atherosclerosis of yuhaaviatam coronary artery of yuhaaviatam heart without angina pectoris Current every day smoker Other hyperlipidemia Palpitations Unstable angina pectoris (Multi) Sleep apnea with use of continuous positive airway pressure (CPAP) History of ST elevation myocardial infarction (STEMI) History of PTCA Shortness of breath Acute cough BMI 35.0-35.9,adult STRESS TEST, REGADENOSON W MYOCARDIAL PERFUSION SPECT (MULTI STUDY)Routine 12/24/2023 2:20 PM EDT Hypertension, unspecified type Atherosclerosis of yuhaaviatam coronary artery of yuhaaviatam heart without angina pectoris Current every day smoker Other hyperlipidemia Palpitations Unstable angina pectoris (Multi) Sleep apnea with use of continuous positive airway pressure (CPAP) History of ST elevation myocardial infarction (STEMI) History of PTCA Shortness of breath Acute cough BMI 35.0-35.9,adult ECG 12-SGYQWdnrmye35/11/2024 11:30 AM EDT Hypertension, unspecified type Atherosclerosis of yuhaaviatam coronary artery of yuhaaviatam heart without angina pectoris Current every day smoker Other hyperlipidemia Palpitations Unstable angina pectoris (Multi) Sleep apnea with use of continuous positive airway pressure (CPAP) History of ST elevation myocardial infarction (STEMI) History of PTCA Shortness of breath Acute cough BMI 35.0-35.9,adult OREWDXJKODVLNE16/22/2021 CJOMQEZTKOPBXFKuteaky23/22/2021 CARDIAC STRESS TEST12/23/2020 CARDIAC STRESS HPCXMfnrczh27/22/2021 ELECTROCARDIOGRAM RHYTHM STRIP11/29/2020 TROPONIN I DATA GRJLJWFAIGOkaihka10/18/2021 9:03 PM EDT ELECTROCARDIOGRAM 12 OYOMCdifkfg15/18/2021 2:48 PM EDT HEPARIN OBSLSUxpwlvq66/18/2021 2:38 PM EDT TROPONIN I DATA TETQGRQQWTTizgmai07/18/2021 1:00 PM EDT HEPARIN YJXPMMtlrtnw52/18/2021 10:27 AM EDT GJTCmrscmy91/18/2021 5:23 AM EDT TROPONIN I DATA PPXZQAOXDPHmqjkpw35/18/2021 5:23 AM EDT BASIC METABOLIC HMQGJSclgchl76/18/2021 5:23 AM EDT ILPVOPEIBPpomaot70/18/2021 5:23 AM EDT HEPARIN KRQBZYwldwuh94/18/2021 5:23 AM EDT TROPONIN I DATA CNFJWLSQWNTuspdex47/18/2021 12:54 AM EDT PROTIME-GMLOzpwcne92/18/2021 12:53 AM EDT YABCCmiuvcb45/18/2021 12:53 AM EDT ELECTROCARDIOGRAM RHYTHM STRIP11/19/2020 ELECTROCARDIOGRAM 12 NBXSScsyhhh95/17/2021 10:15 PM EDT ACTIVATED CLOTTING TIME OSIUjdoeko50/17/2021 7:41 PM EDT ACTIVATED CLOTTING TIME XNQBjkoxwi58/17/2021 7:24 PM EDT XR CHEST 1 TDHQNheifvg07/17/2021 7:19 PM EDT SARS-COV-2 PCR, SCREEN KYEHFWLTKFXGXuqqxpn38/17/2021 7:18 PM EDT COMPREHENSIVE METABOLIC FQYRGGcifymu38/17/2021 7:17 PM EDT B-TYPE NATRIURETIC CCVGQPCVpttffu71/17/2021 7:17 PM EDT TROPONIN I DATA UDKGZTGOIQHabwstz06/17/2021 7:17 PM EDT SZHAtagjuq68/17/2021 7:17 PM EDT ELECTROCARDIOGRAM 12 UXXWIazdpss52/17/2021 7:00 PM EDT ADULT ZDWGBvftygd61/17/2021 OUTSIDE IMAGING SCAN11/18/2020 Results * OUTSIDE LAB SCAN (08/17/2024) Narrative 08/17/2024 Ordered by an unspecified provider. Authorizing ProviderResult TypeResult StatusGeneric Provider ScanningOUTSIDE SCANFinal Result * Electrocardiogram (01/09/2024 12:56 PM EST) Only the most recent of4 resultswithin the time period is included. Specimen (Source)Anatomical Location / LateralityCollection Method / Volume Collection TimeReceived Time01/09/2024 12:56 PM EST Narrative [facility] - 01/10/2024 11:17 AM EST [facility] ?[facility] [address] [place] ?[address] ? [place] [address] ? Electrocardiograph Report ? Signed ? Patient: Ashok Doss ?MR#: [id number] ?? 79 ? : 1965 ?Acct:[id number] ? Age/Sex: 58 / M ?ADM Date: [...] DOECG ORDERABLES Final ResultPerforming OrganizationAddressCity/State/ZIP CodePhone Number [facility] [address] [place] [address], [place] * (ABNORMAL) [facility] HIE Complete Blood Count Auto Diff (01/09/2024 12:40 PM EST) ComponentValueRef RangeTest MethodAnalysis TimePerformed AtPathologist SignatureNON-[facility] HIE White Blood Count14.4(H)4.1 - 10.5 10*3/uLParma Community [facility] CtrNON-[facility] HIE Uncorrected WBC14.4(H)4.1 - 10.5 10*3/uL [facility]tr[facility] Red Blood Count4.453.90 - 5.60 [facility]tr[facility]IE Zkwiaoupxe86.013.0 - 17.0 g/dL [facility]trNON-[facility]IE Ojvmrcwsuw08.938.8 - 50.0 %[facility] CtrNON[facility] Mean Corpuscular Vekssi03.083.5 - 101 fL [facility]trNON-[facility] HIE Mean Corpuscular Bufylpcomw83.427.5 - 35.2 pgFCleveland Clinic [facility] CtrNON-[facility] HIE Mean Corpuscular HGB Conc34.1 32.5 - 35.6 g/dLBarberton Citizens HospitalNON-UH HIE Red Cell Distribution Width13.912.0 - 14.8 %[facility] CtrNON-[facility] HIE Platelet Count 629355 - 450 10*3/[facility] CtrNON-UH HIE Mean Platelet Volume7.06.6 - 10.1 fLParma Community General Hospital CtrNON-UH HIE Neutrophils % (Auto)59.4. %[facility] CtrNON-[facility] HIE Lymphocytes % (Auto)26.8 . %[facility] CtrNON-[facility] HIE Monocytes % (Auto)9.9. %[facility] CtrNON-[facility] HIE Eosinophils % (Auto)2.7. %[facility]trNON-[facility] HIE Basophils % (Auto)1.2. %[facility] NON-[facility] HIE NRBC%0.10 - 0.5 /100{WBC}[facility] CtrNON- HIE Neutrophils # (Auto)8.6(H)1.8 - 7.7 10*3/[facility] CtrNON- [facility] HIE Lymphocytes # (Auto)3.91.00 - 4.8 10*3/[facility] NON-[facility] HIE Monocytes # (Auto)1.4(H)0.0 - 0.8 10*3/[facility] CtrNON-[facility] HIE Eosinophils # (Auto)0.40.0 - 0.45 10*3/[facility] Basophils # (Auto)0.20.0 - 0.2 10*3/[facility] CtrComment:PERFORMED BY:[facility] [place], [place] [id number] MEDICAL DIRECTORJESUS RUBIO M.D. Specimen (Source)Anatomical Location / LateralityCollection Method / Volume Collection TimeReceived TimeINTEGRIS [facility] Lab/Micro- Blood fkivwtoh52/07/2024 12:40 PM EST Narrative Authorizing ProviderResult TypeResult StatusWilliam S Ghanshyam DOLAB BLOOD ORDERABLESFinal ResultPerforming OrganizationAddressCity/State/ZIP CodePhone Number [facility] [address] [place] [address], [facility] [address] [place] [phone] * NON-[facility] HIE Blood Urea Nitrogen (01/09/2024 12:40 PM EST)ComponentValueRef RangeTest MethodAnalysis TimePerformed AtPathologist SignatureNON-[facility] Blood Urea Coknnmdt807 - 25 mg/dLParma Community General Hospital CtrSpecimen (Source) Anatomical Location / LateralityCollection Method / VolumeCollection Time Received TimeINTEGRIS [facility] Lab- Source, Dprbtdtiyyx20/07/2024 12:40 PM EST Narrative Authorizing ProviderResult TypeResult StatusWilliam S Ghanshyam DOLAB BLOOD ORDERABLESFinal ResultPerforming OrganizationAddressCity/State/ZIP CodePhone Number [facility] [address] [place] [address], [facility] [address] [place] [address] * (ABNORMAL) NON-[facility] HIE Lipid Panel (01/09/2024 12:40 PM EST)ComponentValueRef RangeTest MethodAnalysis TimePerformed AtPathologist SignatureNON- HIE Onwsbothneb345(L)140 - 200 mg/dLParma Community General Hospital CtrComment:Chol less than 200 mg/dl low risk Chol 201-239 mg/dl borderline risk Chol 240 mg/dl and greater high riskNON- HIE HDL Pcfejspcmeu8508 - 92 mg/dLParma Community General Hospital CtrComment:HDL CHOL ATP-III CLASSIFICATION Cardiovascular Risk HDL > or equal to 60 mg/dL LOW HDL < 40 mg/dL HIGHNON- HIE Triglyceride w/Hhjohl0947 - 149 mg/dLParma Community General Hospital CtrComment:TRIG ATP III CLASSIFICATION TRIG less than 150 mg/dL Normal TRIG 150-199 mg/dL Borderline high RQGK669-042 mg/dL High TRIG greater than 500 mg/dL Very high Standard traceable to the Center for Disease Conrtrol and Prevention (CDC) test method. NON-[facility] HIE LDL Cholesterol,Hsxxxmsaju234 - 100 mg/dLParma Community General Hospital CtrComment:LDL ATP III CLASSIFICATION LDL less than 100 mg/dL Optimal LDL 100- 129 mg/dL Near or above optimal LDL 130-159 mg/dL Borderline high LDL 160-189 mg/dL High LDL greater than 189 mg/dL Very highNON- HIE VLDL FTTRYVAMKNV94 mg/dLParma Community General Hospital CtrNON-[facility]ERE Chol/HDL Ratio2.9<5.0[facility] CtrComment:PERFORMED BY:[facility] [facility], [place] [id number] MEDICAL DIRECTORJESUS RUBIO M.D.Specimen (Source)Anatomical Location / LateralityCollection Method / VolumeCollection TimeReceived TimeINTEGRIS CANADI[facility] Lab- Source, Gyvmxpgfqur54/07/2024 12:40 PM EST Narrative Authorizing ProviderResult TypeResult StatusWillia Gilda SelfGhanshyamMemorial Hospital of [facility] BLOOD ORDERABLESFinal ResultPerforming OrganizationAddressCity/State/ZIP CodePhone Number [facility] [address] [place] [address], [facility] [address] [place] [address] * NON-UH HIE Electrolytes (01/09/2024 12:40 PM EST)ComponentValueRef RangeTest MethodAnalysis TimePerformed AtPathologist SignatureNON- HIE Ukyuep784112 - 145 mmol/LFKeenan Private HospitalNON-[facility]ERE Potassium4.03.5 - 5.1 mmol/LFKeenan Private HospitalNON- HIE Npavsugv91534 - 107 mmol/L [facility]- HIE Carbon Vziesjl41.621.0 - 31.0 mmol/L [facility] HIE Anion Gap12.46.0 - 15.0[facility] CtrSpecimen (Source)Anatomical Location / Laterality Collection Method / VolumeCollection TimeReceived TimeINTEGRIS CA[facility]DI[facility] Lab- Source, Mkdmxphggzf09/07/2024 12:40 PM EST Narrative Authorizing ProviderResult TypeResult StatusWilliam S Ghanshyam DOLAB BLOOD ORDERABLESFinal ResultPerforming OrganizationAddressCity/State/ZIP CodePhone Number [facility] [address] [place] [address], [facility] [address] [place] [address] * NON-UH HIE Creatinine (01/09/2024 12:40 PM EST)ComponentValueRef RangeTest MethodAnalysis TimePerformed AtPathologist SignatureLA [facility]Z REG[facility]- HIE Creatinine0.88 0.70 - 1.30 mg/dLBarberton Citizens HospitalNONLOVELACE WOMEN'S HOSPITALE ESTIMATED GFR>60.[address] [facility]E Creatinine Clr Calc Xxkdlgtj236.16 [facility] CtrSpecimen (Source)Anatomical Location / LateralityCollection Method / VolumeCollection TimeReceived TimeINTEGRIS [facility] Lab- Source, Xiksvkojzhz53/07/2024 12:40 PM EST Narrative Authorizing ProviderResult TypeResult StatusWilliam S Ghanshyam DOLAB BLOOD ORDERABLESFinal ResultPerforming OrganizationAddressty/State/ZIP CodePhone Number [facility] [address] [place] [phone], [facility] [address] [place] [phone] * NON-UH HIE Coagulation Profile (01/09/2024 12:40 PM EST)ComponentValueRef RangeTest MethodAnalysis TimePerformed AtPathologist SignatureNON- HIE Prothrombin Time11.89.0 - 12.9 [facility] CtrComment:A hematocrit value greater than 55% may lead to inaccurate results in coagulation testing. Patientshaving hematocrit values >55% require a special collection tube for coagulation studies. Please contact the laboratory at [phone] for redraw instructions.NON-UH HIE INR1.0[facility] CtrComment:INR Therapeutic Range A) Pre- and Peroperative OAT started two weeks before surgery. NOT HIP SURGERY: 1.5 - 2.5 HIP SURGERY: 2 - 3 B) Primary and secondary prevention of venous THROMBOSIS: 2 - 3 C) Active venous thrombosis, pulmonary embolism and prevention of recurrent venous thrombosis: 2 - 3 D)Prevention of arterial thromboembolism including patients with mechanical heart valves: 3 - 4.5LA [facility]- HIE Partial Thromboplastin Time30.925.1 - 36.5 [facility] CtrComment:A hematocrit value greater than 55% may lead to inaccurate results in coagulation testing. Patientshaving hematocrit values >55% require a special collection tube for coagulation studies. Please contact the laboratory at [phone] for redraw instructions.PERFORMED BY:[place] [address] [place], [place] [phone] MEDICAL DIRECTORJESUS RUBIO M.D. Specimen (Source)Anatomical Location / LateralityCollection Method / Volume Collection TimeReceived TimeINTEGRIS CANADIAN [facility] Lab- Plasma hssiblpv27/07/2024 12:40 PM EST Narrative Authorizing ProviderResult TypeResult Oneil VELAZQUEZ BLOOD ORDERABLESFinal ResultPerforming OrganizationAddressCity/State/ZIP CodePhone Number [facility] [address] [place] [address], [facility] [address] [place] [address] * NON- HIE B-Type Natriuretic Peptide (01/09/2024 12:40 PM EST)ComponentValue Ref RangeTest MethodAnalysis TimePerformed AtPathologist SignatureNON- HIE B-Type Natriuretic Gkidife81.05 - 100 pg/mLParma Community General Hospital Ctr Comment:PERFORMED BY:[place] [address] [place], [place] [phone] MEDICAL DIRECTORJESUS RUBIO M.D.Specimen (Source)Anatomical Location / LateralityCollection Method / VolumeCollection TimeReceived TimeINTEGRIS CANADIAN [facility] Lab- Source, Omgacjjwjhx22/07/2024 12:40 PM EST Narrative Authorizing ProviderResult TypeResult Jaren GARCIA BLOOD ORDERABLES Final ResultPerforming OrganizationAddressCity/State/ZIP CodePhone Number [facility] [address] [place] [address], [facility] [address] [place] [address] * TRANSTHORACIC ECHO (TTE) COMPLETE WITH CONTRAST (12/24/2023 3:31 PM EDT) ComponentValueRef RangeTest MethodAnalysis TimePerformed AtPathologist SignatureAV mn grad7.0mmHgSYNGOAV pk vel1.70m/sSYNGOLV Biplane EF53%SYNGOLVOT diam2.40cmSYNGOMV E/A ratio0.82SYNGOMV avg E/e' ratio11.10SYNGOLV EF65%SYNGO RVSP37.0qpJySRUSFGBGYb7.05cmSYNGOAortic Valve Area by Continuity of Peak Velocity2.33ih8LBYSTGS pk grad11.6mmHgSYNGOAortic Valve Area by Continuity of VTI3.43jd9FJJGROJ A4C EF55.4SYNGOSpecimen (Source)Anatomical Location / LateralityCollection Method / VolumeCollection TimeReceived Time12/24/2023 2:22 PM EDT Narrative SYNGO - 12/26/2023 12:18 PM EDT ?[address], [address] [place] [address] ? TRANSTHORACIC ECHOCARDIOGRAM REPORT Patient Name: ?ASHOK DOSS ? Reading Physician: ?[id number] Jose ?Faith GARCIA, ?FACC Study Date: ?12/24/2023 ? Ordering Provider: ?[id number] JOSE H ?FAITH MRN/PID: ? [id number] ? Fellow: Accession#: ?[id number] ? Nurse: ?Ivonne Gonzalez RN Date of /Age: 5 1965 / 58 years ??Casualty Underwriter: ?Latanya Yadav ?RDCS, RT(R), RDMS, ?RVT Gender: ?M ?Additional Staff: Height: ?187.96 cm ?Admit Date: Weight: ?129.73 kg ?Admission Status: ? Outpatient BSA / BMI: ? 2.53 m2 / 36.72 ?Department Location: ??[facility] ? kg/m2 ?[place] Study Type: ?TRANSTHORACIC ECHO (TTE) COMPLETE Diagnosis/ICD: Chest pain, unspecified-R07.9; Palpitations-R00.2 Indication: ?Chest pain Palpitations CPT Codes: ? Echo Complete w Full Doppler-53144 Patient History: Smoker: ?Current. Pertinent History: CAD, [...] Sys Poli: ?69.00 cm/s Lincoln Cuevas MD, [facility] Electronically signed on 12/26/2023 at 12:18:27 PM Final Procedure Note Jose Cuevas MD - 12/26/[address], [address] [place] [id number] TRANSTHORACIC ECHOCARDIOGRAM REPORT Patient Name: ASHOK DOSS Sindy Physician: Viet Truong, [facility] Study Date: 12/24/2023 Ordering Provider: Lincoln CUEVAS MRN/PID: [id number] Fellow: Nurse: Ivonne Cloeman Date of /Age: 5 1965 / 58 years Casualty Underwriter: Samir ISBELL, RT(R),RDMS, RVT Gender: M Additional Staff: Height: 187.96 cm Admit Date: Weight: 129.73 kg Admission Status: Outpatient BSA / BMI: 2.53 m2 / 36.72 Department Location: [facility] kg/m2 [place] Study Type: TRANSTHORACIC ECHO (TTE) COMPLETE Diagnosis/ICD: Chest pain, unspecified-R07.9; Palpitations-R00.2 Indication: Chest pain Palpitations CPT Codes: Echo Complete w Full Doppler-85795 Patient History: Smoker: Current. Pertinent History: CAD, [...] Poli: 1.10 PulmV Sys Poli: 69.00 cm/s [id number] Jose Cuevas MD, FACC Electronically signed on 12/26/2023 at 12:18:27 PM Final Authorizing ProviderResult TypeResult StatusScladan Cuevas [facility] ECHO PROCEDURESFinal ResultPerforming OrganizationAddressCity/State/ZIP CodePhone Number SYN[facility] * 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 - PRIMARY CARE PROVIDER, PHYSICIAN READ (12/24/2023 3:08 PM EDT) Specimen [...] correlation is advised. Jose Cuevas MD ??FACC [facility] Cardiology Narrative Jose Cuevas MD - 01/05/2024 [...] symptoms recorded. Authorizing ProviderResult TypeResult StatusScladan Cuevas [facility] CARDIAC SERVICES PROCEDURESFinal Result * STRESS TEST, [...] Cuevas 12/24/2023 5:13 PM Dictation workstation: ?? [id number] Narrative 12/24/2023 5:13 PM EDT Interpreted By: Jose Cuevas and Christo Dennis STUDY: MYOCARDIAL PERFUSION STRESS TEST WITH LEXISCAN ?? Performing facility: [facility] at [address] Provider: ??Jose Cuevas MD, FACC PCP: ??Colten Parra, DO Supervising provider: ??Jose Cuevas MD, FACC ?? INDICATION: Hypertension, unspecified type; Atherosclerosis of yuhaaviatam coronary artery of yuhaaviatam heart without angina pectoris; Current every day [...] ?? COMPARISON: Previous GXT ONLY testing completed do8738, NON DIAGNOSTIC at [facility]. ?? ACCESSION NUMBER(S): [id number] ?? ORDERING CLINICIAN: JOSE CUEVAS ?? TECHNIQUE: [...] PERFUSION STRESS TEST WITH LEXISCAN Performing facility: [facility] at [address] [place] [address] [facility] Provider: Jose Cuevas MD, FACC PCP: Colten Parra DO Supervising provider: Jose Cuevas MD, [facility] INDICATION: Hypertension, unspecified type; Atherosclerosis of yuhaaviatam coronary artery of yuhaaviatam heart without angina pectoris; Current every day [...] 2020-RCA. COMPARISON: Previous GXT ONLY testing completed od9235, NON DIAGNOSTIC at [facility]. ACCESSION NUMBER(S): [id number] ORDERING CLINICIAN: JOSE CUEVAS TECHNIQUE: ONE DAY [...] Jose Cuevas 12/24/2023 5:13 PM Dictation workstation: [id number] Authorizing ProviderResult TypeResult Lisa Cuevas [facility] STRESS PROCEDURESFinal Result * ECG 12 lead [...] Collection Method / VolumeCollection TimeReceived Time12/23/2020 Narrative [facility] [facility] - 12/23/2020 12:00 AM EDT ? [address], [address] [place] [address] ? TRANSTHORACIC ECHOCARDIOGRAM REPORT Patient Name: ? ASHOK Callahan Physician: ?? [id number] Antony Pena MD, ?FACC Study Date: ? 12/23/2020 ?? Referring Physician: [id number] JEAN CLAUDE STACY MRN/PID: ?[id number] ? PCP: ? Colten Parra MD Accession/Order#: [id number] Department Location: [facility] [place] Date of : ?1965 ? Fellow: Gender: ? M ?Nurse: Admit Date: ?Casualty Underwriter: ? Latanya Yadav [facility], ?RT(R), RDMS, RVT Height: ? 187.96 cm ?CC Report to: Weight: ? 119.75 kg ?Study Type: ?Echocardiogram BSA: ?2.45 m2 Diagnosis/ICD: I25.10-Atherosclerotic heart disease of yuhaaviatam coronary artery ? without angina pectoris; I21.19-ST elevation (STEMI) myocardial ? infarction involving other coronary artery of inferior wall Indication: ?HTN PTCA Procedure/CPT: Echo Complete w Full Doppler-67106 Study Detail: The following Echo studies were [...] m/s ??(0.6-0.9m/s) PV Max PG: ??2.5 mmHg [id number] Antony Pena MD, [facility] Electronically signed on 12/23/2020 at 11:56:24 AM Final Procedure Note Conversion, Syngo - 04/06/[address], Suite [facility], [place] [address] TRANSTHORACIC ECHOCARDIOGRAM REPORT Patient Name: ASHOK Callahan Physician: [id number] Antony Edwards FACC Study Date: 12/23/2020 Referring Physician: [id number] STACY MRN/PID: [id number] PCP: Colten Parra MD Accession/Order#: [id number] Department Location: [facility] Date of : 1965 Fellow: Gender: M Nurse: Admit Date: Casualty Underwriter: Latanya Boyd, RT(R), RDMS, RVT Height: 187.96 cm CC Report to: Weight: 119.75 kg Study Type: Echocardiogram BSA: 2.45 m2 Diagnosis/ICD: I25.10-Atherosclerotic heart disease of yuhaaviatam coronaryartery without angina pectoris; I21.19-ST elevation (STEMI)myocardial infarction involving other coronary artery of inferiorwall Indication: HTN PTCA Procedure/CPT: Echo Complete w Full Doppler-68070 Study Detail: The following Echo studies were [...] 0.8 m/s (0.6-0.9m/s) PV Max P.5 mmHg [id number] Antony Pena MD, FACC Electronically signed on 12/23/2020 at 11:56:24 AM Final Authorizing ProviderResult TypeResult StatusSyngo ConversionCV ECHO PROCEDURES Final ResultPerforming OrganizationAddressCity/State/ZIP CodePhone Number [facility] [address] * CARDIAC STRESS TEST (12/23/2020) Narrative 12/23/2020 Ordered by an unspecified provider. Authorizing ProviderResult TypeResult StatusOnbase ConversionCV STRESS PROCEDURESFinal Result * Cardiac Stress Test (12/23/2020)Specimen (Source)Anatomical Location / LateralityCollection Method / VolumeCollection TimeReceived Time12/23/2020 Narrative [facility] - 12/23/2020 12:00 AM EDT ? [address], [address] [place] [address] ? Exercise Stress Test Patient Name: ? ASHOK DOSS ? Ordering Physician: ?[id number] Jean Claude ?Regis GARCIA Study Date: ? 12/23/2020 ? Reading Physician: ? [id number] Antony ?MARCUS Edwards MRN/PID: ?[id number] ? Supervising Physician: Accession/Order#: [id number] ?Referring Physician: ?? [id number] JEAN CLAUDE ?REGIS Date of : ?1965 ? PCP: Gender: ? M ?Fellow: Height: ? 187.96 cm ?Nurse: ? Frida Dewey RN Weight: ? 119.75 kg ?Casualty Underwriter: ? N/A BSA: ?2.45 m2 ?Technologist: BMI: ?33.90 kg/m2 ?Additional Staff: Age: ?55 years ? cc report to: Patient Location: [facility] ? cc report to: ?[id number] Jean Claude ?[place] ?Regis GARCIA Study Type: ?Cardiac Stress Test Diagnosis/ICD: I25.10-Atherosclerotic heart disease; I21.19-ST elevation (STEMI) ? myocardial infarction involving other coronary artery of inferior ? wall Indication: ?CAD, INF. NV Procedure/CPT: Stress Test Interpretation-62493; Stress Test Supervision-09959 Falls Risk: Patient Performance: The patient exercised [...] The inadequate level of stress was achieved. [id number] Antony Pena MD, FACC Electronically signed on 12/23/2020 at 5:13:30 PM Final Procedure Note Conversion, Syngo - 04/06/[address], [address], [place] [address] Exercise Stress Test Patient Name: ASHOK DOSS Ordering Physician: Lisa Stacy MD Study Date: 12/23/2020 Reading Physician: [id number] Pena MD,[facility] MRN/PID: [id number] Supervising Physician: Accession/Order#: [id number] Referring Physician: LISA STACY Date of : 1965 PCP: Gender: M Fellow: Height: 187.96 cm Nurse: Maribel GOODMAN Weight: 119.75 kg Casualty Underwriter: N/A BSA: 2.45 m2 Technologist: BMI: 33.90 kg/m2 Additional Staff: Age: 55 years cc report to: Patient Location: [facility] cc report to: Lisa Stacy MD Study Type: Cardiac Stress Test Diagnosis/ICD: I25.10-Atherosclerotic heart disease; I21.19-ST elevation(STEMI) myocardial infarction involving other coronary artery ofinferior wall Indication: CAD, INF. NV Procedure/CPT: Stress Test Interpretation-01068; Stress TestSupervision-80232 Falls Risk: Patient Performance: The patient exercised [...] The inadequate level of stress was achieved. [id number] Antony Pena MD, [facility] Electronically signed on 12/23/2020 at 5:13:30 PM Final Authorizing ProviderResult TypeResult StatusSyngo ConversionCV STRESS PROCEDURES Final ResultPerforming OrganizationAddressCity/State/ZIP CodePhone Number [facility] [address] * ELECTROCARDIOGRAM RHYTHM STRIP (11/29/2020) Only the most recent of2 resultswithin the time period is included. Narrative 11/29/2020 Ordered by an unspecified provider. Authorizing ProviderResult TypeResult StatusOnbase ConversionECG ORDERABLESFinal Result * (ABNORMAL) Troponin I (11/19/2020 9:03 PM EDT) Only the most recent of5 resultswithin the time period is included. ComponentValueRef RangeTest MethodAnalysis TimePerformed AtPathologist Signature Troponin I10.69(HH)0.00 - 0.03 ng/mLPHYSICIANS [facility] LABComment: LESS THAN 0.04 NG/ML: ?? NEGATIVE [...] testing methodology at [facility] than at other [facility]. Direct result comparisons should only be made within the same method. 21:43 11/19/2020. ??Called- RB to Shelia GOODMAN , 11/19/2020 21:43 Specimen (Source)Anatomical Location / LateralityCollection Method / Volume Collection TimeReceived Time11/19/2020 9:03 PM EDT11/19/2020 9:06 PM EDT Narrative Authorizing ProviderResult TypeResult Jaren Stacy MDLAB BLOOD ORDERABLES Final ResultPerforming OrganizationAddressCity/State/ZIP CodePhone Number [facility] * Heparin Assay (11/19/2020 2:38 PM EDT) Only the most recent of3 resultswithin the time period is included. ComponentValueRef RangeTest MethodAnalysis TimePerformed AtPathologist Signature HEPARIN UNFRACTIONATED0.2IU/mLPHYSICIANS REG[facility] LABComment: The therapeutic reference range for UFH may be either 0.3-0.6 IU/mL or 0.3-0.7 IU/mL based on the clinical setting for anticoagulant therapy and the associated nomogram used. For heparin dosing guidelines based on clinical scenario and Heparin Assay results, please refer to local ?? Pharmacy and the [facility] Guidelines for Anticoagulation therapy available on the [facility] intranet at: [email or web address]/Pharmacy/Pages/[place]_[facility]_Guid [facility] centernes_for_Anticoagu.aspx Specimen (Source)Anatomical Location / LateralityCollection Method / Volume Collection TimeReceived Time11/19/2020 2:38 PM EDT11/19/2020 2:40 PM EDT Narrative Authorizing ProviderResult TypeResult StatusGemaria eugenia GARCIA BLOOD ORDERABLES Final ResultPerforming OrganizationAddressCity/State/ZIP CodePhone Number [facility] * (ABNORMAL) CBC (11/19/2020 5:23 AM EDT) Only the most recent of2 resultswithin the time period is included. ComponentValueRef RangeTest MethodAnalysis TimePerformed AtPathologist Signature WBC22.9(H)4.4 - 11.3 x10E9/[facility] LABRBC4.42(L)4.50 - 5.90 x10E12/[facility] UQDWshjgrlshy18.513.5 - 17.5 g/dLPHYSICIANS REG[facility]AL [facility] PJHVcvgdveuix08.241.0 - 52.0 %[facility] FPHUNL2256 - 100 fL [facility] ACSMEIL41.832.0 - 36.0 g/dLPHYSICIANS REGIONAL [facility] LAB Qkagqqdtx291737 - 450 x10E9/[facility] AZKOTZ26.311.5 - 14.5 %[facility] LABSpecimen (Source)Anatomical Location / LateralityCollection Method / VolumeCollection TimeReceived Time11/19/2020 5:23 AM EDT11/19/2020 5:28 AM EDT Narrative Authorizing ProviderResult TypeResult StatusLeia Stearns ORGAN PIPE VOICER-CNPLAB BLOOD ORDERABLESFinal ResultPerforming OrganizationAddressCity/State/ZIP CodePhone Number [facility] * Magnesium (11/19/2020 5:23 AM EDT)ComponentValueRef RangeTest MethodAnalysis TimePerformed AtPathologist SignatureMagnesium1.801.60 - 2.40 mg/dLPHYSICIANS [facility] LABSpecimen (Source)Anatomical Location / LateralityCollection Method / VolumeCollection TimeReceived Time11/19/2020 5:23 AM EDT11/19/2020 5:28 AM EDT Narrative Authorizing ProviderResult TypeResult StatusLeia Stearns ORGAN PIPE VOICER-CNPLAB BLOOD ORDERABLESFinal ResultPerforming OrganizationAddressCity/State/ZIP CodePhone Number [facility] * (ABNORMAL) Basic Metabolic Panel (11/19/2020 5:23 AM EDT)ComponentValueRef RangeTest MethodAnalysis TimePerformed AtPathologist VczvzeuvrMznzkuz990(H)74 - 99 mg/dLPHYSICIANS [facility] RHNCkknlf526842 - 145 mmol/[facility] LABPotassium3.83.5 - 5.3 mmol/[facility] PWYOtvhoaki481(H) 98 - 107 mmol/[facility] CLESozlxrqjzou1058 - 32 mmol/[facility] LABAnion Pny9803 - 20 mmol/[facility] LABUrea Zkkwqbwi244 - 23 mg/dLPHYSICIANS [facility] LABCreatinine0.830.50 - 1.30 mg/dL [facility] LABGLOMERULAR FILTRATION RATE-NON >60>60 mL/min/1.35m0XXEEFCPHYSICIANS REGIONAL MEDICAL CENTER - [facility] LABGLOMERULAR FILTRATION RATE->60>60 mL/min/1.65n5IDIZPUPHYSICIANS REGIONAL MEDICAL CENTER - [facility] LABComment: CALCULATIONS OF ESTIMATED GFR ARE PERFORMED USING THE MDRD STUDY EQUATION FOR THE IDMS-TRACEABLE CREATININE METHODS. CLIN CHEM 2007;53:766-72 Calcium8.4(L)8.6 - 10.3 mg/dLPHYSICIANS REG[facility]AL [facility] LABSpecimen (Source) Anatomical Location / LateralityCollection Method / VolumeCollection Time Received Time11/19/2020 5:23 AM EDT11/19/2020 5:28 AM EDT Narrative Authorizing ProviderResult TypeResult StatusLeia Dixie Mcguirecatarina [facility] BLOOD ORDERABLESFinal ResultPerforming OrganizationAddressCity/State/ZIP CodePhone Number [facility] * aPTT (11/19/2020 12:53 AM EDT)ComponentValueRef RangeTest MethodAnalysis Time Performed AtPathologist PnzsopkrpjBIC0972 - 35 [facility] LAB Comment: ??THE APTT IS NO LONGER USED FOR MONITORING ??UNFRACTIONATED HEPARIN THERAPY. ??FOR MONITORING HEPARIN THERAPY, ??USE THE HEPARIN ASSAY. Specimen (Source)Anatomical Location / LateralityCollection Method / Volume Collection TimeReceived Time11/19/2020 12:53 AM EDT11/19/2020 1:00 AM EDT Narrative Authorizing ProviderResult TypeResult StatusJerry GARCIA BLOOD ORDERABLESFinal ResultPerforming OrganizationAddressCity/State/ZIP CodePhone Number [facility] * Protime-INR (11/19/2020 12:53 AM EDT)ComponentValueRef RangeTest Method Analysis TimePerformed AtPathologist LnuzepenrOucvjuv53.810.1 - 13.3 [facility] LABINR1.10.9 - 1.1[facility] LABSpecimen (Source) Anatomical Location / LateralityCollection Method / VolumeCollection Time Received Time11/19/2020 12:53 AM EDT11/19/2020 1:00 AM EDT Narrative Authorizing ProviderResult TypeResult StatusJerry GARCIA BLOOD ORDERABLESFinal ResultPerforming OrganizationAddressCity/State/ZIP CodePhone Number [facility] * (ABNORMAL) ACTIVATED CLOTTING TIME LOW (11/18/2020 7:41 PM EDT)ComponentValue Ref RangeTest MethodAnalysis TimePerformed AtPathologist SignatureActivated Clotting Time POC Low Irvxj635(H)89 - 169 [facility]SP[facility] Comment: Note new reference range as of 06/06/2018. Target ACT range will vary based on the patient population, clinical status, and surgical intervention occurring. Specimen (Source)Anatomical Location / LateralityCollection Method / Volume Collection TimeReceived Time11/18/2020 7:41 PM EDT11/21/2020 6:18 AM EDT Narrative Authorizing ProviderResult TypeResult StatusJean Claude GARCIA POINT OF CARE TEST DOCKED DEVICE UNSOLICITED RESULTSFinal ResultPerforming OrganizationAddress City/State/ZIP CodePhone Number [facility] * (ABNORMAL) ACTIVATED CLOTTING TIME LOW (11/18/2020 7:24 PM EDT)ComponentValue Ref RangeTest MethodAnalysis TimePerformed AtPathologist SignatureActivated Clotting Time POC Low Cqacx856(H)89 - 169 [facility] Comment: Note new reference range as of 06/06/2018. Target ACT range will vary based on the patient population, clinical status, and surgical intervention occurring. Specimen (Source)Anatomical Location / LateralityCollection Method / Volume Collection TimeReceived Time11/18/2020 7:24 PM EDT11/21/2020 6:18 AM EDT Narrative Authorizing ProviderResult TypeResult StatusJean Claude GARCIA POINT OF CARE TEST DOCKED DEVICE UNSOLICITED RESULTSFinal ResultPerforming OrganizationAddress [facility]/ZIP CodePhone Number [facility] * XR CHEST 1 VIEW (11/18/2020 7:19 PM EDT)Anatomical RegionLateralityModality ChestRadiographic ImagingSpecimen (Source)Anatomical Location / Laterality Collection Method / VolumeCollection TimeReceived Time Narrative 11/18/2020 7:40 PM EDT STUDY: Chest Radiograph; ??11/18/2020 7:22 PM. INDICATION: Concern for dissection, chest pain. COMPARISON: None Available. ACCESSION NUMBER(S): [id number] ORDERING CLINICIAN: JERRY BRONSON MD TECHNIQUE: ??Frontal chest was obtained at 1919 hours. FINDINGS: CARDIOMEDIASTINAL SILHOUETTE: Cardiomediastinal silhouette is normal in size and configuration. LUNGS: Lungs are clear. ABDOMEN: No remarkable upper abdominal findings. BONES: No acute osseous changes. IMPRESSION: No acute cardiopulmonary process seen. Signed by Kaden Grifftihs MD Procedure Note Kaden Griffiths MD - 04/16/2022 STUDY: Chest Radiograph; 11/18/2020 7:22 PM. INDICATION: Concern for dissection, chest pain. COMPARISON: None Available. ACCESSION NUMBER(S): [id number] ORDERING CLINICIAN: JERRY BRONSON MD TECHNIQUE: Frontal [...] 7:18 PM EDT)ComponentValueRef RangeTest MethodAnalysis TimePerformed AtPathologist RgzvvwpubESFK-XzJ-8 ResultNOT DETECTEDNot [facility] LABComment: . This test has received [facility] Emergency Use Authorization (EUA) and has been verified by [facility]. This test is only authorized for the duration of time that circumstances exist to justify the authorization of the emergency use of in vitro diagnostic tests for the detection of SARS-CoV-2 virus and/or diagnosis of COVID-19 infection under section 564(b)(1) of the Act, 21 U.S.C. 360bbb-3(b)(1), unless the authorization is terminated or revoked sooner. [facility] is certified under CLIA-88 as qualified to perform high complexity testing. Testing is performed in the [facility] laboratory located at [address] [place] [place] [address]. SARS-CoV-2/Flu/RSV Multiplex Test: Fact sheet for providers: https://www.fda.gov/media/447197/download Fact sheet for patients: https://www.fda.gov/media/631139/download Specimen (Source)Anatomical Location / LateralityCollection Method / Volume Collection TimeReceived Time09/ 7:18 PM EDT11/18/2020 7:18 PM EDT Narrative Authorizing ProviderResult TypeResult StatusJerry GARCIA MOLECULAR DIAGNOSTICS ORDERABLESFinal ResultPerforming OrganizationAddressCity/State/ZIP CodePhone Number [facility] * B-Type Natriuretic Peptide (11/18/2020 7:17 PM EDT)ComponentValueRef RangeTest MethodAnalysis TimePerformed AtPathologist BczgbxrqmLQU570 - 99 pg/mLPHYSICIANS [facility] LABComment: . <100 pg/mL - Heart failure unlikely 100-299 pg/mL - Intermediate probability of acute heart . ? failure exacerbation. Correlate with clinical . ? context and patient history. >=300 pg/mL - Heart Failure likely. Correlate with clinical . ? context and patient history. BNP testing is performed using different testing methodology at [facility] than at other [facility]. Direct result comparisons should only be made within the same method. Specimen (Source)Anatomical Location / LateralityCollection Method / Volume Collection TimeReceived Time11/18/2020 7:17 PM EDT11/18/2020 7:17 PM EDT Narrative Authorizing ProviderResult TypeResult StatusJerry GARCIA BLOOD ORDERABLESFinal ResultPerforming OrganizationAddressCity/State/ZIP CodePhone Number [facility] * (ABNORMAL) Comprehensive Metabolic Panel (11/18/2020 7:17 PM EDT)Component ValueRef RangeTest MethodAnalysis TimePerformed AtPathologist SignatureGlucose 113(H)74 - 99 mg/dLPHYSICI[facility] KFULqpimb094310 - 145 mmol/[facility] LABPotassium3.83.5 - 5.3 mmol/[facility] Ezbakwgt81558 - 107 mmol/[facility] BWWLfisuauersa9473 - 32 mmol/L [facility] LABAnion Goo7667 - 20 mmol/[facility] Urea Xgceearu811 - 23 mg/dLPHYSICI[facility] LABCreatinine1.120.50 - 1.30 mg/dLPHYSICI[facility] LABGLOMERULAR FILTRATION RATE-NON >60>60 mL/min/1.49l1KPFDQWPHYSICIANS REG[facility]AL [facility] LABGLOMERULAR FILTRATION RATE- >60>60 mL/min/1.25s3QSVWLIPHYSICIANS REGIONAL MEDICAL CENTER [facility] LABComment: CALCULATIONS OF ESTIMATED GFR ARE PERFORMED USING THE MDRD STUDY EQUATION FOR THE IDMS-TRACEABLE CREATININE METHODS. CLIN CHEM 2007;53:766-72 Calcium9.48.6 - 10.3 mg/dLPHYSICIANS [facility] LABAlbumin4.23.4 - 5.0 g/dL [facility] LABAlkaline Tplddnvarfd7786 - 120 U/[facility] LABTotal Protein7.06.4 - 8.2 g/dLPHYSICIANS [facility] PBNDWH678 - 39 U/[facility] LABTotal Bilirubin0.30.0 - 1.2 mg/dLPHYSICIANS [facility] LABALT (SGPT)1910 - 52 U/[facility] LABComment: Patients treated with Sulfasalazine may generate falsely decreased results for ALT. Specimen (Source)Anatomical Location / LateralityCollection Method / Volume Collection TimeReceived Time11/18/2020 7:17 PM EDT11/18/2020 7:17 PM EDT Narrative Authorizing ProviderResult TypeResult StatusJerry Bronson MDLAB BLOOD ORDERABLESFinal ResultPerforming OrganizationAddressCity/State/ZIP CodePhone Number [facility] * OUTSIDE IMAGING SCAN (11/18/2020)Anatomical RegionLateralityModalityOther Narrative 11/18/2020 Ordered by an unspecified provider. Authorizing ProviderResult TypeResult StatusOnbase ConversionOUTSIDE SCANFinal Result * Adult Cath (11/18/2020)Specimen (Source)Anatomical Location / Laterality Collection Method / VolumeCollection TimeReceived Time11/18/2020 Narrative [facility] - 11/18/2020 12:00 AM EDT [facility], Front Office Director ? [address] [place] [address] ? [facility] [address] Cardiovascular Catheterization Report Patient Name: ? Ashok Doss Performing Physician: [id number] Jean Claude Stacy MD Study Date: ? 11/18/2020 ?Verifying Physician: ??[id number] Jean Claude Stacy MD MRN/PID: ?[id number] ? Gas Appliance Servicer Helper: Accession/Order#: [id number] ?Referring Physician: ??[id number] José Miguel Posey MD Date of : ?1965 ? Referring Physician: Gender: ? M ?Referring Physician: ??[id number] Jean Claude Stacy MD Study: Left Heart [...] a modified Seldinger technique. Subsequently a 6 Australian sheath was placed in the right femoral [...] less than 10% distal stenosis. 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 Aspirin therapy. Beta ajycob therapy. ____ CONCLUSIONS: 1. Single vessel disease [...] Left Heart Cath (visualization of coronaries) and LV-90272; Moderate Sedation Services initial 15 minutes patient >5 years-02777; Moderate Sedation Services 1st additional 15 minutes patient >5years-97382; Moderate Sedation Services 2nd additional 15 minutes patient >5 years-82497; Angiography, Extremity,uni,S&I (PER)-94155; Angioplasty, single Left Anterior Descending major Artery/branch (PCI)-20293.LD ICD 10 Codes: I21.02-ST elevation (STEMI) myocardial infarction involving left anterior descending coronary artery [id number] Jean Claude Stacy MD Performing Physician [place]: [id number] José Miguel Posey MD cc Report to: [id number] Stacy MD Final Procedure Note Conversion, Syngo - 04/06/2022 [facility], Front Office Director [address] [place] [address] Cardiovascular Catheterization Report Patient Name: Ashok Doss Performing Physician: Sheridan Patton Study Date: 11/18/2020 Verifying Physician: Sheridan Patton MRN/PID: [id number] Gas Appliance Servicer Helper: Accession/Order#: [id number] Referring Physician: [id number] Garrett Date of : 1965 Referring Physician: [...] and lessthan 10% distal stenosis. First septal grinding wheel operator is moderately large andhas 0% stenosis. First [...] Loss: Estimated blood loss during the procedure uti90uj mls. Specimens Removed: Number of specimen(s) removed: [...] Left Heart Cath (visualization of coronaries) and LV-48799; ModerateSedation Services initial 15 minutes patient >5 years-53154; ModerateSedation Services 1st additional 15 minutes patient >5 years-06530;Moderate Sedation Services 2nd additional 15 minutes patient >5years-48599; Angiography, Extremity,uni,S&I (PER)-73442; Angioplasty,single Left Anterior Descending major Artery/branch (PCI)-61290.[place] ICD 10 Codes: I21.02-ST elevation (STEMI) myocardial infarction involving left anterior descending coronary artery [id number] Jean Claude Stacy MD Performing Physician cc Report to: [id number] José Miguel Posey MD cc Report to: [id number] Jean Claude Stacy MD Final Authorizing ProviderResult TypeResult StatusSyngo ConversionCV CARDIAC CATH PROCEDURESFinal ResultPerforming OrganizationAddressCity/State/ZIP CodePhone Number [facility] [address] Visit Diagnoses DiagnosisStart Date ST elevation (STEMI) myocardial infarction involving other coronary artery of inferior wall (Multi) 11/18/2020 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 12/23/2020 Primary hypertension Unspecified essential hypertension 04/01/2023 Atherosclerosis of yuhaaviatam coronary artery of yuhaaviatam heart without angina pectoris 08/28/2023 History of PTCA Postsurgical percutaneous transluminal coronary angioplasty status 08/28/2023 Mixed hyperlipidemia 08/28/2023 Primary hypertension Unspecified essential hypertension 08/28/2023 Current every day smoker 08/28/2023 BMI 35.0-35.9,adult 08/28/2023 Hypertension, unspecified type 12/13/2023 Atherosclerosis of yuhaaviatam coronary artery of yuhaaviatam heart without angina pectoris 12/13/2023 Current every [...] 12/13/2023 Hypertension, unspecified type 12/24/2023 Atherosclerosis of yuhaaviatam coronary artery of yuhaaviatam heart without angina pectoris 12/24/2023 Current every [...] 12/24/2023 Hypertension, unspecified type 12/24/2023 Atherosclerosis of yuhaaviatam coronary artery of yuhaaviatam heart without angina pectoris 12/24/2023 Current every [...] hypertension Unspecified essential hypertension 12/24/2023 Atherosclerosis of yuhaaviatam coronary artery of yuhaaviatam heart with stable angina pectoris 12/24/2023 Current every day smoker 12/24/2023 Hypertension, unspecified type 12/24/2023 Atherosclerosis of yuhaaviatam coronary artery of yuhaaviatam heart without angina pectoris 12/24/2023 Current every [...] course changed 01/06/2024 Coronary artery disease involving yuhaaviatam coronary artery of yuhaaviatam heart with unstable angina pectoris (Multi) 01/06/2024 [...] 02/21/2024 Hypertension, unspecified type 02/21/2024 Atherosclerosis of yuhaaviatam coronary artery of yuhaaviatam heart without angina pectoris 02/21/2024 Other hyperlipidemia 02/21/2024 Sleep apnea with use of continuous positive airway pressure (CPAP) 02/21/[address] elevation myocardial infarction (STEMI) 02/21/2024 BMI 35.0-35.9,adult 02/21/2024 Primary hypertension Unspecified essential hypertension 03/08/2024 Palpitations 03/08/2024 Primary hypertension Unspecified essential hypertension 03/16/2024 Primary hypertension Unspecified essential hypertension 03/24/2024 Mixed hyperlipidemia 03/24/2024 Shortness of breath 03/24/2024 Palpitations 03/24/2024 Atherosclerosis of yuhaaviatam coronary artery of yuhaaviatam heart without angina pectoris 08/21/2024 Medication course changed 08/21/2024 Primary hypertension Unspecified essential hypertension 08/21/2024 Mixed hyperlipidemia 08/21/2024 Palpitations 08/21/2024 Current every day smoker 08/21/2024 Sleep apnea with use of continuous positive airway pressure (CPAP) 08/21/2024 BMI 35.0-35.9,adult 08/21/2024 Primary hypertension Unspecified essential hypertension 01/26/2025 Care Teams Team MemberRelationshipSpecialtyStart DateEnd Date Colten Parra DO PCP - Iirazzr92/22/21
--- OUTSIDE RECORDS SUMMARY | 2025-02-18 08:48 | XMS_ITS | Clinical Summary ---
Author Organization [facility] lin Address [address] [place] [address] Care Team Providers Care Home Appraiser Name Role Phone No, Pcp WELDING MACHINE TENDER Primary Care Provider Unavailabl e Social History Tobacco UseTypesPacks/DayYears UsedDateSmoking Tobacco: Never AssessedSex and Gender InformationValueDate RecordedSex Assigned at BirthNot on fileLegal Sex Male03/07/2020 8:51 AM ESTGender IdentityNot on fileSexual OrientationNot on file Plan of Treatment Not on file Medical Devices Not on file Care Teams Team MemberRelationshipSpecialtyStart DateEnd Date No, Pcp, WELDING MACHINE TENDER N/A Do not use PCP - Generalmily Medicine06/13/20
--- OUTSIDE RECORDS SUMMARY | 2025-02-18 08:48 | XMS_ITS | Continuity of Care Document ---
Author Organization [facility] Healthcare Address [address] [place] [address] Care Team Providers Care Mouthpiece Maker Name Role Phone Unavailable Primary Care Provider Unavailabl e Encounters DateTypeDepartmentCare IqosKhbyufkwyld51/14/2022eCW Legacy Documentation NOMS DATA CONVERSION LEGACY 01/04/2022 [...] 07/27/2018 Non Patient Presenting NOMS DATA CONVERSION LEGMagad Coffman MD 07/04/2018 Non Patient Presenting NOMS [...] Last Filed Vital Signs Vital SignReadingTime TakenCommentsBlood Cdeqazwc663/7009 12:00 PM EDT Pulse--Temperature--Respiratory Rate--Oxygen Saturation--Inhaled Oxygen Concentration--Gmknmv170 kg (257 lb)01/01/2022 12:00 PM PCALbsuye133.4 cm (6' 1 )01/01/2022 12:00 PM EDTBody Mass Index33.9101/01/2022 12:00 PM EDT Plan of Treatment Not on file Procedures Procedure NamePriorityDate/TimeAssociated DiagnosisCommentsXR FOOT 3+ VIEWS LEFT Fxgrssl7112/27/2021 12:00 PM EDT Pain in left foot Other specified soft tissue disorders XR FOOT 3+ VIEWS WFNUWcozcqf85/24/2022 12:00 PM EDT Pain in left foot Other specified soft tissue disorders MRI FOOT LT WO LGLOqexkhc14/17/2022 Pain in left foot Other specified soft tissue disorders XR CHEST 2 YMKFFUyshlce16/10/2019 X RAY : ANKLE, LEFT 6HOrxcfaa98/02/2018 12:00 PM EDT Flat foot (pes planus) (acquired), left foot Pain in left ankle and joints of left foot Secondary osteoarthritis, 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 X RAY : FOOT, LEFT 4XLvnogyp96/02/2018 12:00 PM EDT Flat foot (pes planus) (acquired), left foot Pain in left ankle and joints of left foot Secondary osteoarthritis, 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 MR LUMBAR SPINE WO CDBEBAEMYiqzctn43/16/2018 12:00 PM EDT Other chronic pain Lumbago with sciatica, right side Lumbago with sciatica, left side Tobacco use Encounter for general adult medical examination without abnormal findings Essential (primary) hypertension Episodic tension-type headache, intractable Unspecified acquired deformity of left lower leg XR KNEE 3 VIEWS LGGTPvhuwgc89/22/2018 Pain in left knee X RAY : ELBOW, WCGYPnreinx29/01/2018 12:00 PM EST Lateral epicondylitis, left elbow Results * XR foot 3+ views left (12/27/2021 12:00 PM EDT) Only the most recent of2 resultswithin the time period is included. Anatomical RegionLateralityModalityLower Extremities, FootLeftRadiographic ImagingSpecimen (Source)Anatomical Location / LateralityCollection Method / VolumeCollection TimeReceived Time12/27/2021 12:00 PM EDT Narrative 12/27/2021 12:00 PM EDT PERFORMED AT [facility] LOCATION:[id number] Procedure Note CONVERSION, GENERIC - 07/18/2022 PERFORMED AT [facility] LOCATION:[id number] Authorizing ProviderResult TypeResult StatusMattkatherin Oakley [facility] XR PROCEDURES Final Result * MRI FOOT LT WO CON (12/18/2021)Anatomical RegionLateralityModalityRadiographic ImagingSpecimen (Source)Anatomical Location / LateralityCollection Method / VolumeCollection TimeReceived Time12/18/2021 Narrative 12/28/2021 12:00 AM EDT PERFORMED AT [facility] LOCATION:[place] 112 150 EXAM: MRI FOOT [...] Note CONVERSION, GENERIC - 07/19/2022 PERFORMED AT [facility] LOCATION:[place] 112 150 EXAM: MRI FOOT LT WO [...] Narrative 03/13/2018 12:00 AM EST PERFORMED AT [facility] LOCATION:[address] [address] Patient: ? ASHOK BELCHER ? Exam Date: ? 03/13/2018 : ? 1965 ?Gender:M ? Ordering : ? ALEIDA RUELAS . ? Admission #: ? [id number] Family : ?Order #: ? [id number] CLICK HERE TO VIEW EXAM RADIOLOGY REPORT [...] Note CONVERSION, GENERIC - 07/18/2022 PERFORMED AT [facility] LOCATION:[place] [address] [place] [address] Patient: ASHOK BELCHER Exam Date: 03/13/2018 : 1965 Gender:M Ordering : ALEIDA RUELAS . Admission #: [id number] Family : Order #: [id number] CLICK HERE TO VIEW EXAM RADIOLOGY REPORT [...] Narrative 10/03/2017 12:00 PM EDT PERFORMED AT [facility] LOCATION:[id number] Procedure Note CONVERSION, GENERIC - 07/18/2022 PERFORMED AT [facility] LOCATION:[id number] Authorizing ProviderResult TypeResult Nomi Conklin MDIMG XR PROCEDURESFinal Result * X RAY : ANKLE, LEFT 3V (10/03/2017 12:00 PM EDT)Anatomical RegionLaterality ModalityRadiographic ImagingSpecimen (Source)Anatomical Location / Laterality Collection Method / VolumeCollection TimeReceived Time10/03/2017 12:00 PM EDT Narrative 10/03/2017 12:00 PM EDT PERFORMED AT [facility] LOCATION:[id number] Procedure Note CONVERSION, GENERIC - 07/18/2022 PERFORMED AT [facility] LOCATION:[id number] Authorizing ProviderResult TypeResult StatusDanny Conklin MDIMG XR PROCEDURESFinal Result * MR lumbar spine wo contrast (07/17/2017 12:00 PM EDT)Anatomical Region LateralityModalitySpine, L-spineMagnetic ResonanceSpecimen (Source)Anatomical Location / LateralityCollection Method / VolumeCollection TimeReceived Time 07/17/2017 12:00 PM EDT Narrative 07/17/2017 12:00 PM EDT PERFORMED AT [facility] LOCATION:[id number] Procedure Note CONVERSION, GENERIC - 07/18/2022 PERFORMED AT [facility] LOCATION:[id number] Authorizing ProviderResult TypeResult StatusMagda Slade MDIMG MRI PROCEDURES Final Result * XR knee 3 views left (04/25/2017)Anatomical RegionLateralityModalityLower Extremities, KneeLeftRadiographic ImagingSpecimen (Source)Anatomical Location / LateralityCollection Method / VolumeCollection TimeReceived Time04/25/2017 Narrative 04/25/2017 12:00 AM EST PERFORMED AT [facility] LOCATION:[place] [address] Procedure Note CONVERSION, GENERIC - 07/18/2022 PERFORMED AT [facility] LOCATION:[place] [address] Authorizing ProviderResult TypeResult StatusPaulina Dillard NPIMG XR PROCEDURES Final Result * X RAY : ELBOW, LEFT (04/04/2017 12:00 PM EST)Anatomical RegionLaterality ModalityRadiographic ImagingSpecimen (Source)Anatomical Location / Laterality Collection Method / VolumeCollection TimeReceived Time04/04/2017 12:00 PM EST Narrative 04/04/2017 12:00 PM EST PERFORMED AT [facility] LOCATION:[id number] Procedure Note CONVERSION, GENERIC - 07/18/2022 PERFORMED AT [facility] LOCATION:[id number] Authorizing ProviderResult TypeResult StatusNasir RiveraG XR PROCEDURESFinal [...]
--- OUTSIDE RECORDS SUMMARY | 2025-02-18 08:48 | XMS_ITS | Clinical Summary ---
Author Organization [facility] Address [address] [place] [address] Care Team Providers Care Occupational Therapy Aides Teacher Name Role Phone Colten Parra DO Primary Care Provider [phone] Allergies No known active allergies Medications MedicationSigDispense QuantityRefillsLast FilledStart DateEnd DateStatus atorvastatin (Lipitor) 80 mg tablet Take 80 mg by mouth in the morning.03/09/2022ctive HYDROcodone-acetaminophen (Reading) 5-325 mg tablet Take 1 tablet by [...] TAKE 1 CAPSULE EVERY DAY AT BEDTIME OOUJBR1104/15/2022ctive apixaban (Eliquis) 5 mg tablet Take 5 mg by mouth in the morning and at bedtime.Active aspirin 81 mg EC tablet Take 81 mg by mouth in the morning.Active apixaban (Eliquis) 5 mg tablet Indications:History of DVT (deep vein thrombosis)Take 1 tablet (5 mg) by mouth in the morning and at bedtime. 60 tablet 303/07/2023Active Active Problems ProblemNoted DateDiagnosed DateCellulitis of right leg3Primary hjbewavjwrij86/21/2023Right leg pain3Acute upper respiratory infection, wvbqckoeqhr16/14/2019Nicotine dependence, cigarettes, yueqpmpzrzqkd48/14/2019 Social History Tobacco UseTypesPacks/DayYears UsedDateSmoking Tobacco: Every JkxGdflhqmsfj864 Smokeless Tobacco: Never Tobacco Cessation:Ready to Q uit: Not Asked; Counseling Given: Not Answered Alcohol UseStandard Drinks/WeekCommentsYes0 (1 standard drink = 0.6 oz pure alcohol)UT Safety & EnvironmentAnswerDate RecordedFear of Current or Ex-Partner Not on file04/25/2023Emotionally AbusedNot on file04/25/2023hysically AbusedNot on file04/25/2023Sexually AbusedNot on file04/25/2023hysically or Sexually AbusedNot on file04/25/2023Sex and Gender InformationValueDate RecordedSex Assigned at BirthNot on fileLegal IzyQoal1004/27/2022 2:26 PM ESTGender Identity Not on fileSexual OrientationNot on file Last Filed Vital Signs Vital SignReadingTime TakenCommentsBlood Lwcdapkq813/7903 2:29 PM EST Vobtr2133/07/2023 2:29 PM ESTTemperature--Respiratory Rate--Oxygen Nofckovpko96% 05/08/2022 2:29 PM ESTInhaled Oxygen Concentration--Nggiyp039 kg (250 lb) 05/08/2022 2:29 PM PVHOkezjp674 cm (6' 2 )05/08/2022 2:29 PM ESTBody Mass Index 32.103 2:29 PM EST Plan of Treatment Health MaintenanceDue DateLast DoneCommentsCT Fnrjzmuhvapo01/07/1966Colonoscopy 1965FIT-DNA1965FOBT1965 8569Oiynqruycduwj15/07/1966Depression Vrpylehjf80/07/1978Hepatitis B Vaccines (1 of 3 - 19+ 3-dose series)1984 Pneumococcal Vaccine: Pediatrics (0 to 5 Years) and At-Risk Patients (6 to 64 Years) (1 of 2 - PCV)1984Adult Aaswlug3607/09/1987Zoster Vaccines (1 of 2) 07/09/2015Colorectal Cancer Puwmgdyil70/20/6012LAE483COVID-19 Vaccine (1 - 2024- season)2024Influenza Vaccine (#1)2024 [...] TypeRelation to PatientDate of BirthPhone Billing AddressWorkers OpttIkof64[birth year][address] [address] Care Teams Team MemberRelationshipSpecialtyStart DateEnd Date Colten Parra DO [facility]05/08/22
--- OUTSIDE RECORDS SUMMARY | 2025-02-18 08:48 | XMS_ITS | Clinical Summary ---
Author Organization [facility]AC[facility] Address [address], [address] [place] [address] Care Team Providers Care Painter Mirror Name Role Phone Kahs Killian MD Primary Care Provider + Allergies [...] upper respiratory infection, unspecified 03/17/2018Nicotine dependence, cigarettes, chfkxfvhicnkr93/14/2019 Resolved Problems ProblemNoted DateDiagnosed DateResolved CszyMctfb77 Immunizations ImmunizationAdministration DatesNext DueInfluenza Virus Iffcres3401/21/2019 Influenza, AFLURIA (age 3 y+), FLUZONE, (age [...] 0.6 oz pure alcohol)very rarePHQ-2AnswerDate RecordedPHQ-9 Total Rekrl656ex and Gender InformationValueDate RecordedSex Assigned at BirthNot on fileLegal Sex Male10/07/2018 10:37 AM EDTGender IdentityNot on fileSexual OrientationNot on file Last Filed Vital Signs Vital SignReadingTime TakenCommentsBlood Nnonmxqh469/9204/28/2020 3:03 PM EST Grkgz554504/28/2020 3:03 PM ANYShgwwdmrkyt85.8 ??C (98.3 ??F)04/28/2020 3:03 PM ESTRespiratory Afbi279911/10/2019 1:25 PM EDTOxygen Ueapjuitum74%04/28/2020 3:03 PM ESTInhaled Oxygen Concentration--Exxhkz713.7 kg (275 lb)11/10/2019 10:06 AM CZEQvxqmg813 cm (6' 2 )11/10/2019 10:06 AM EDTBody Mass Index35.31011/10/2019 10:06 AM EDT Plan of Treatment Not on file Insurance Care Teams Team MemberRelationshipSpecialtyStart DateEnd Kash Killian MD [address] [place] [id number] [facility]
--- OUTSIDE RECORDS SUMMARY | 2025-02-18 08:48 | XMS_ITS | Clinical Summary ---
Author Organization [employer] Address [id number] [address] [place] [address] Care Team Providers Care Evp [employer] Name Role Phone ElisaColten figueroa Raymond CARR Primary Care Provider [phone] Allergies Active AllergyReactionsCriticalityNoted DateCommentsAmoxicillinVomiting 08/21/2023FentanylGI Kmttgfehjlc70/20/2024 Headaches, vomiting Isosorbide UtnsgxwxyxmKnlhvnspAtfa80/04/3763IkitqjmoyzSflojwsvhtruEdn88/19/2024 Medications MedicationSigDispense QuantityRefillsLast FilledStart DateEnd DateStatus lisinopril-hydroCHLOROthiazide [...] with aura and without status migrainosus, not thnfrzhuwno36/10/2025lass 2 severe obesity due to excess calories with serious comorbidity and body mass index (BMI) of36.0 to 36.9 in adult01/11/2025Enlarged /19/2024Lower urinary tract symptoms (LUTS) 07/09/2023enign prostatic hyperplasia with urinary jfcwiyxrelv59/02/2024 Overview (11/18/2024): Had DVT on affected leg [...] or hydronephrosis. Plan: Renal bladder ultrasound. Cystoscopy [facility] bladder solution. CMG/flow Urine forculture. Assessment [...] 04/02/2023History of ST elevation myocardial infarction (STEMI)04/02/2023 Trmxbamckhtb91/30/2024hronic hip pain, left12/14/20228998Gdduud64/13/2023Polyp of transverse colon12/07/2022 Overview (12/07/2022): Multiple Positive colorectal cancer screening using Cologuard test11/16/2022cute deep vein thrombosis (DVT) of calf muscle vein of right lower rheelhfxm48/20/2023 Ngyxuhwr21/20/2023Right leg pain03/24/2022Essential ozwmxnvpyzgk77/21/2023 Cellulitis of right leg03/24/2022cute upper respiratory bwebyckyw50/14/2019 06/08/2022Nicotine dependence, cigarettes, picllvgcdxiai60 Resolved Problems ProblemNoted DateDiagnosed DateResolved DateObesity, yuvidu26 Situational zrpdtdgdbi75 Encounters DateTypeDepartmentCare NhfySsoehndoahu89/10/2025 12:24 PM EST - 02/10/2025 11:59 PM ESTHospital Encounter [facility] - [facility] Imaging [address] [place] [phone] Smoker Discharge Disposition: Home02/08/20256774Nmwgmx15/11/2025Results Follow-Up [facility] Internal Medicine - Family Medicine [address] [place] [address] Colten Parra, Lipid profile, Valproic acid, depakane, Comprehensive metabolic panel, Additional followed-up results: 11:30 AM ESTOffice Visit [facility] Internal [facility] - Family Medicine [address] [place] [address] Colten Parra, Essential hypertension (Primary Dx); Mixed hyperlipidemia; Migraine with aura and without status migrainosus, not intractable; Smoker; Class 2 severe obesity due to excess calories with serious comorbidity and body mass index (BMI) of36.0 to 36.9 in adult01/11/20253715Ymjtfl41/22/2025 11:30 AM EDT Office Visit [facility] General Surgery [address] [place] [phone] Tosin Sotelo, SOURCING ASSOCIATE-PREFABRICATOR Rectal pain (Primary Dx)12/23/20241446Kxokcf45/21/0569Fskqiu44/13/2025Refill [facility] Internal Medicine - Family Medicine [address] [place] [phone] Berna Díaz CMA Migraine, unspecified, not intractable, without status guknbpusawl77/07/2025 1:00 PM EDTOffice Visit [facility] Internal Medicine - [facility] Medicine [address] [facility] [place] [phone] Colten Parra, Anal pain (Primary Dx)12/08/2024Travelfrom Last 3 Months Immunizations ImmunizationAdministration DatesNext DueInfluenza, Im Trivalent Preservative 11/03/2019Influenza, Injectable, Fllmwbtbgpqk64/20/2019,01/02/2019Influenza, Injectable, quadrivalent (PF)12/02/2016 Family History Medical HistoryRelationNameCommentsHeart failureFatherdied at age 90No Known ProblemsHalf BrothermaternalSclerodermaMotherdied in her 80'sNo Known Problems Paternal Grandfatherdied at age 98 after slipping and falling and hitting head in bathroomRelationNameStatusCommentsFatherDeceasedHalf BrotherAliveMother DeceasedPaternal GrandfatherSisterAlive Social History Tobacco UseTypesPacks/DayYears UsedDateSmoking Tobacco: Every VmzKiakswexvh681 Started: 1978Smokeless Tobacco: Never Tobacco Cessation:Ready to Q uit: Not Asked; Counseling Given: Not Answered Alcohol UseStandard Drinks/WeekCommentsYes0 (1 standard drink = 0.6 oz pure alcohol)rarelyPHQ-2AnswerDate RecordedTotal Rjnsz39003/13/2024UDIT-CAnswerDate RecordedQ1: How often do you have a drink containing alcohol?Monthly or less 12/23/2024Q2: How many drinks containing alcohol do you have on a typical day when you are drinking?1 or Q3: How often do you have six or more drinks on one occasion?Never12/23/2024hildcareAnswerDate RecordedDo problems getting child welfare manager make it difficult for you to work or study?No01/11/2025 EmploymentAnswerDate VfxatoewKvddlyamucHrberym01/12/2019Hunger ScreeningAnswer Date RecordedWithin the past 12 months we worried whether our food would run out before we got money to buy more.Never True01/11/2025Within the past 12 months the food we bought just didn't last and we didn't have money to get more.Never True01/11/2025Purpose - LifeAnswerDate RecordedPurpose and direction in life Irntomj6604/14/2020ex and Gender InformationValueDate RecordedSex Assigned at BirthNot on fileLegal CgrBswl8510/07/2014 12:13 PM EDTGender IdentityNot on file Sexual OrientationNot on file Last Filed Vital Signs Vital SignReadingTime TakenCommentsBlood Bfiwtbjy37/6001/11/2025 11:35 AM EST Wgpbd071101/11/2025 11:35 AM IMOUopxdtmmdab58.4 ??C (97.5 ??F)01/11/2025 11:35 AM ESTRespiratory Vefn186103/13/2024 11:35 AM ESTOxygen Yegvtuexqq94%01/11/2025 11:35 AM ESTInhaled Oxygen Concentration--Cxyniv932.4 kg (283 lb)01/11/2025 11:35 AM CQYBdqibs797 cm (6' 2.02 )01/11/2025 11:35 AM ESTBody Mass Index36.32103/13/2024 11:35 AM EST Plan of Treatment DateTypeDepartmentCare Team (Latest Contact Info)Evrxucowzhz59/11/2026 9:30 AM EDTOffice Visit [facility] Internal Medicine - Family Medicine [address] [place] [phone] Colten Parra, DO [address], [place] [address] 10/06/2025 1:15 PM EDTOffice Visit [facility] [address] [place] [address] [place] [phone] Сергей Lucas MD [address] [place] [address] Health MaintenanceDue DateLast DoneCommentsStatin Use: Xbkjfuvglzulru46/07/1966 Tobacco Pfuehydfmp64/07/1966Zoster (Shingles) Vaccine (1 of 2)07/09/2015 Influenza Unmjvlg60/01/52652711/03/2019, 01/21/2019, 01/02/2019, Additional history existsDTaP,Tdap and Td Vaccines (1 - Tdap)03/04/2025Postponed from 1984 (Patient Refused)Colon Cancer Screening 3 Year Ikhasxedf30/20/2026 06/21/2022dult BMI Follow Up [facility] BMI Screening Depression Frzaxmqgd08Tobacco Screening Goals GoalPatient Goal TypeAssociated ProblemsRecent ProgressPatient-Stated?Author safe discharge ot home Simran Velasquez RN Note: Evaluation of progress towards goal: safe transition to home with support of pt's and resumption with outpatient PT. Medical Devices Not on file Procedures Procedure NamePriorityDate/TimeAssociated DiagnosisCommentsCT LOW DOSE LUNG DBKBLAWAMAyrcgig10/10/2025 12:40 PM EST Smoker CBC (NO DIFF)Ravzyjy9001/11/2025 12:14 PM EST Migraine with aura and without status migrainosus, not intractable COMPREHENSIVE METABOLIC KYAGNXmenync92/10/2025 12:14 PM EST Essential hypertension VALPROIC ACID LYUFUEZBMdquuea60/10/2025 12:14 PM EST Migraine with aura and without status migrainosus, not intractable LIPID GQROTCBJbtzzmx07/10/2025 12:14 PM EST Mixed hyperlipidemia AMB REFERRAL TO GENERAL KQTCQJDPjwusrx52/22/2025 12:46 PM EDTCOLOGUARD NON-ZJBYFVVZFEsodped24/20/2023 8:00 AM EDT Encounter for colorectal cancer [...] detection for pulmonary nodules was performed utilizing DNsolution software. FINDINGS: Diagnostic quality: Satisfactory Lung nodules: [...] aideddetection for pulmonary nodules was performed utilizing Ensighten. FINDINGS: Diagnostic quality: Satisfactory Lung nodules: No [...] 02/12/2025 10:23 AM Authorizing ProviderResult TypeResult StatusDennis G [facility] ORDER[facility]LES Final Result * (ABNORMAL) Valproic acid, depakane (01/11/2025 12:14 PM EST)ComponentValueRef RangeTest MethodAnalysis TimePerformed AtPathologist SignatureVALPROIC ACID16 (L)50 - 100 ug/mL01/11/2025 8:31 PM [facility] Specimen (Source)Anatomical Location / LateralityCollection Method / Volume Collection TimeReceived TimeBloodVenous blood / Zcmldky3601/11/2025 12:14 PM EST 01/11/2025 12:14 PM EST Narrative Authorizing ProviderResult TypeResult StatusDennis G Furlong DOLAB BLOOD ORDERABLESFinal ResultPerforming OrganizationAddressCity/State/ZIP CodePhone Number [facility] [address] [place] [address], * CBC without diff (01/11/2025 12:14 PM EST)ComponentValueRef RangeTest Method Analysis TimePerformed AtPathologist ZtctzfxwlUJN35.24 - 11 X10^9/L103/13/2024 8:05 PM [facility] LABORATORYRBC Count4.534.1 - 5.7 X10^12/L 01/11/2025 8:05 PM [facility] HDPUJAOBUSDfqyuybkto40.113 - 17 g/dL01/11/2025 8:05 PM [facility] VFPKMJRJYCYopsglroqb51.439 - 50 %01/11/2025 8:05 PM [facility] QOSSIAVGJVWGJ8881 - 100 fL01/11/2025 8:05 PM [facility] SPNGFQFZSGPNM96.127 - 34 pg 01/11/2025 8:05 PM [facility] FEHJENYETNMTCN04.032 - 36 g/dL 01/11/2025 8:05 PM [facility] HXCOGXWPFTBZW87.611.5 - 15 % 01/11/2025 8:05 PM [facility] LABORATORYPlatelet Xrkro422140 - 450 X10^9/L103/13/2024 8:05 PM [facility] LABORATORYMPV7.37 - 12 fL01/11/2025 8:05 PM [facility] LABORATORYSpecimen (Source)Anatomical Location / LateralityCollection Method / VolumeCollection TimeReceived TimeBloodVenous blood / Oabfkmd9901/11/2025 12:14 PM EST01/11/2025 12:14 PM EST Narrative Authorizing ProviderResult TypeResult StatusDennis G Furlong DOLAB BLOOD ORDERABLESFinal ResultPerforming OrganizationAddressCity/State/ZIP CodePhone Number [facility] [address] [place] [address], [place] [phone] * (ABNORMAL) Lipid profile (01/11/2025 12:14 PM EST)ComponentValueRef RangeTest MethodAnalysis TimePerformed AtPathologist XausancsgUIKNUIHKKSO918(L)150 - 200 mg/dL01/11/2025 8:31 PM [facility] EBBXJCQEOGWSEUTLRILEKJ074 27 - 150 mg/dL01/11/2025 8:31 PM [facility] LABORATORYHDL MZYLTUTZFRW32>39 mg/dL01/11/2025 8:31 PM [facility] LABORATORYComment: HDL <40 mg/dL - High Risk HDL > or = 40mg/dL- Desirable HDL >60 mg/dL - Negative Risk LDL (CALC)62<130 mg/dL01/11/2025 8:31 PM [facility] Comment: LDL <100 mg/dL - Desirable LDL >160 mg/dL - High Risk CHOLESTEROL:HDL3.21.0 - 5.011 8:31 PM [facility] LABORATORYVERY LOW AMBHSQBZSWR680 - 30 mg/dL01/11/2025 8:31 PM [facility] LABORATORYSpecimen (Source)Anatomical Location / Laterality Collection Method / VolumeCollection TimeReceived TimeBloodVenous blood / Hrspvdb9801/11/2025 12:14 PM EST01/11/2025 12:14 PM EST Narrative Authorizing ProviderResult TypeResult StatusDennis G Furlong DOLAB BLOOD ORDERABLESFinal ResultPerforming OrganizationAddressCity/State/ZIP CodePhone Number [facility] [address] [place] [address], * Comprehensive metabolic panel (01/11/2025 12:14 PM EST)ComponentValueRef Range Test MethodAnalysis TimePerformed AtPathologist RbwvawdzuHTKWUO137636 - 146 mmol/L103/13/2024 8:31 PM [facility] LABORATORYPOTASSIUM4.63.5 - 5.0 mmol/L103/13/2024 8:31 PM [facility] LABORATORYCHLORIDE [address] - 109 mmol/L103/13/2024 8:31 PM [facility] CARBON YAVJGFN5161 - 32 mmol/L103/13/2024 8:31 PM [facility] LABORATORYANION GAP75 - 15 mmol/L103/13/2024 8:31 PM [facility] LABORATORYBLOOD UREA BWPEMOJP282 - 23 mg/dL01/11/2025 8:31 PM [facility] LABORATORYCREATININE1.070.60 - 1.30 mg/dL01/11/2025 8:31 PM [facility] LABORATORYComment:METHOD TRACEABLE TO IDWI EFSIROWACWNBEBP2809 - 99 mg/dL01/11/2025 8:31 PM [facility] LABORATORYCALCIUM9.38.5 - 10.5 mg/dL01/11/2025 8:31 PM [facility] LABORATORYTOTAL PROTEIN6.86.0 - 8.0 g/dL01/11/2025 8:31 PM [facility] LABORATORYALBUMIN4.03.2 - 5.3 g/dL01/11/2025 8:31 PM [facility] LABORATORYALKALINE OCCJUOQJWIG8281 - 130 U/L 01/11/2025 8:31 PM [facility] OKWSDUCJPMIUT96<=41 U/L 01/11/2025 8:31 PM [facility] TNYWLIZNJORAN00<=40 U/L 01/11/2025 8:31 PM [facility] LABORATORYBILIRUBIN,TOTAL0.30.3 - 1.2 mg/dL01/11/2025 8:31 PM [facility]ORYEGFR Non- Race Rglmvpcym75>=60 ml/min/1.73sq.m103/13/2024 8:31 PM [facility] LABORATORYComment: Reported eGFR is based on the CKD-EPI 2020 equation that does not use a race coefficient. Specimen (Source)Anatomical Location / LateralityCollection Method / Volume Collection TimeReceived TimeBloodVenous blood / Xbzwjel8601/11/2025 12:14 PM EST 01/11/2025 12:14 PM EST Narrative Authorizing ProviderResult TypeResult StatusDennis G Furlong DOLAB BLOOD ORDERABLESFinal ResultPerforming OrganizationAddressCity/State/ZIP CodePhone Number [facility] [address] [place] [address], * [facility] General Surgery [place], [place] (12/23/2024 12:46 PM EDT) Narrative Authorizing ProviderResult TypeResult StatusDennis G Furlong DOOUTPATIENT REFERRAL ORDERABLESFinal ResultPerforming OrganizationAddressCity/State/ZIP Code Phone Number MANUALLY TRANSCRIBED RESULTS * (ABNORMAL) Cologuard [facility] (06/21/2022 8:00 AM EDT)ComponentValueRef RangeTest MethodAnalysis TimePerformed AtPathologist SignatureEXTERNAL COLOGUARDPositive(A)Qigtvguv57/29/2023 3:36 AM EDTEXBuy With Fetch (CLIA #:[id number])Comment: POSITIVE TEST RESULT. A positive Cologuard result [...] (Katey Sanders al, N Engl J Med 2014;370(14):1545-8315.) Cologuard may produce a false negative or [...] can be accessed at the following location: [email or web address]/results. Additional description of the Cologuard test process, warnings and precautions can be found at www.cologuard.com. Specimen (Source)Anatomical Location / LateralityCollection Method / Volume Collection TimeReceived TimeStool specimen (specimen)Rectum structure / Unknown 06/21/2022 8:00 AM EDT06/22/2022 3:16 PM EDT Narrative Authorizing ProviderResult TypeResult StatusDiandra Maddox SOURCING ASSOCIATE-CNPLAB ORDERABLESFinal ResultPerforming OrganizationAddressCity/State/ZIP CodePhone Number [employer] (CLIA #:[id number]) [address] [place] [address], from Last 3 Months or Most Recently Relevant to Health Maintenance Insurance * Guarantor: Dale Belcher TypeRelation to PatientDate of PhoneBilling AddressPersonal/VqtazmCblt94[birth year][address] [address] * Guarantor: Dale Belcher TypeRelation to PatientDate of PhoneBilling AddressWorkers YfkcPlds88/07/[address] [address] Advance Directives * Full Code (Latest Code Status on File) Date ActivatedDate InactivatedComments03/24/2022 9:21 AM03/26/2022 5:36 PM Care Teams Team MemberRelationshipSpecialtyStart DateEnd Date Colten Parra DO [address] [facility], [place] [address] PCP - GeneralFamily Medicine04/03/22
[2025-02-18 10:30] LABS: Alanine Aminotransferase 26 U/L (16-63); Albumin Globulin Ratio 1.0; Albumin Level 3.3 g/dL (3.4-5.0); Alkaline Phosphatase 98 U/L (46-116); Anion Gap 7.9; Aspartate Amino Transferase 14 U/L (15-37); Blood Urea Nitrogen 26.0 mg/dL (7.0-18.0); Calcium 8.7 mg/dL (8.5-10.1); Carbon Dioxide 30.2 mmol/L (21.0-32.0); Chloride 106 mmol/L (98-107); Cholesterol 118 mg/dL (<=200); Estimated GFR (African America >60 (>=60 mL/min/1.73m^2); Estimated GFR (Non-African Ame >60 (>=60 mL/min/1.73m^2); Globulin 3.3 g/dL; Glucose 99 mg/dL (74-106); HDL Cholesterol 36 mg/dL (40-60); Potassium 4.1 mmol/L (3.5-5.1); Sodium 140 mmol/L (136-145); Total Protein 6.6 g/dL (6.4-8.2); Triglycerides 149 mg/dL (<=150); VLDL CHOLESTEROL 29.8 mg/dL
== END 2025-02-18 08:46 | disposition home or self-care (01) ==
LOC: LAB 08:45
PROVIDERS: PCP Family Medicine; Visit Provider Internal Medicine Interventional Cardiology
DX: E78.2 Mixed hyperlipidemia (principal); Z79.899 Other long term (current) drug therapy; I10 Essential (primary) hypertension
CPT/HCPCS: 36415; 80053; 80061

== ENCOUNTER 2025-02-23 09:22 | Outpatient (OUT) | payer MEDICARE, SELFPAY ==
--- OUTSIDE RECORDS SUMMARY | 2025-02-10 12:24 | XMS_ITS | Encounter Summary ---
Author Organization [employer] tem Address [facility] [id number] [address] [place] [address] Care Team Providers Care Glass Bender Name Role Phone Colten Parra DO Primary Care Provider + [phone] Reason for Referral * Diagnostic Imaging (Routine) - ClosedSpecialtyDiagnoses / ProceduresReferred By ContactReferred To ContactRadiology Diagnoses Smoker Procedures CT low dose lung screening (Annual) Colten Parra DO [address], [place] [address] Phone: tel: fax: Referral IDStatusReasonStart DateExpiration DateVisits RequestedVisits [id number]/10/202511/10/202611 Reason for Visit * Diagnostic Imaging (Routine) - ClosedSpecialtyDiagnoses / ProceduresReferred By ContactReferred To ContactRadiology Diagnoses Smoker Procedures CT low dose lung screening (Annual) Colten Parra DO [address], [place] [address] Phone: tel: fax: Referral IDStatusReasonStart DateExpiration DateVisits RequestedVisits [id number]/10/202511/10/202611 Encounter Details DateTypeDepartmentCare Team (Latest Contact Info)Iuyqzemwwmc10/10/2025 12:24 PM EST - 02/10/2025 11:59 PM ESTHospital Encounter [facility] [address] [place] [address] Smoker Discharge Disposition: Home Social History Tobacco UseTypesPacks/DayYears UsedDateSmoking Tobacco: Every [id number] Started: 1978Smokeless Tobacco: NeverAlcohol UseStandard Drinks/WeekCommentsYes0 (1 standard drink = 0.6 oz pure alcohol)rarelyPHQ-2AnswerDate RecordedTotal Pjmfd58103/13/2024UDIT-CAnswerDate RecordedQ1: How often do you have a drink containing alcohol?Monthly or less12/23/2024Q2: How many drinks containing alcohol do you have on a typical day when you are drinking?1 or Q3: How often do you have six or more drinks on one occasion?Never12/23/2024 ChildcareAnswerDate RecordedDo problems getting child custody evaluator make it difficult for you to work or study?No01/11/2025EmploymentAnswerDate RecordedEmploymentUnknown 08/13/2018Hunger ScreeningAnswerDate RecordedWithin the past 12 months we worried whether our food would run out before we got money to buy more.Never True01/11/2025Within the past 12 months the food we bought just didn't last and we didn't have money to get more.Never True01/11/2025Purpose - LifeAnswerDate RecordedPurpose and direction in lsjrKnqsklf43/11/2021ex and Gender Information ValueDate RecordedSex Assigned at BirthNot on fileLegal AekAuno9910/07/2014 12:13 PM EDTGender IdentityNot on fileSexual OrientationNot on filedocumented as of this encounter Medications at Time of Discharge MedicationSigDispense QuantityRefillsLast FilledStart DateEnd Date albuterol (PROVENTIL,VENTOLIN) 2.5 mg /3 mL (0.083 %) nebulizer solution Indications:Acute bronchitis, unspecified organismInhale 3 mL (2.5 mg total) by nebulization 4 (four) times a day. 75 mL aspirin 81 mg Take 1 tablet (81 mg total) by mouth in the morning. atorvastatin (LIPITOR) 80 mg tablet TAKE 1 TABLET (80 MG TOTAL) BY MOUTH IN THE MORNING 90 tablet cyclobenzaprine (FLEXERIL) 10 mg tablet Take 1 tablet (10 mg total) by mouth 3 (three) times a day as needed for muscle spasms. divalproex (DEPAKOTE) 125 mg EC tablet Indications:Migraine, unspecified, not intractable, without status migrainosus Take 1 tablet (125 mg total) by mouth every morning. 90 tablet 12/14/2024 finasteride (PROSCAR) 5 mg tablet Indications:Benign prostatic hyperplasia with urinary obstructionTake 1 tablet (5 mg total) by mouth in the morning. 90 tablet HYDROcodone-acetaminophen (NORCO) 5-325 mg per tablet Take 1 tablet by mouth as needed in the morning and 1 tablet as needed in the evening.03/15/2022 lisinopriL (PRINIVIL,ZESTRIL) 20 mg tablet Take 1 tablet (20 mg total) by mouth in the morning. lisinopril-hydroCHLOROthiazide (PRINZIDE,ZESTORETIC) 20-12.5 mg per tablet Take 1 tablet by mouth in the morning.05/20/2020 metoprolol tartrate (LOPRESSOR) 25 mg tablet TAKE 1 TABLET (25 MG) BY MOUTH IN THE MORNING AND AT BEDTIME 180 tablet tamsulosin (FLOMAX) 0.4 mg capsule Take 2 capsules (0.8 mg total) by mouth in the morning. 180 capsule documented as of this encounter Plan of Treatment DateTypeDepartmentCare Team (Latest Contact Info)Mhvafwvkiwr80/11/2026 9:30 AM EDTOffice Visit [facility] [address] [place] [id number] Colten Parra, [address], [place] [address] 10/06/2025 1:15 PM EDTOffice Visit [facility] [address] [place] [address] [place] [address] [place] [address] Сергей Lucas MD [facility] [place] [address] documented as of this encounter Goals GoalPatient Goal TypeAssociated ProblemsRecent ProgressPatient-Stated?Author safe discharge ot home Simran Velasquez RN Note: Evaluation of progress towards goal: safe transition to home with support of pt's and resumption with outpatient PT. documented as of this encounter Procedures Procedure NamePriorityDate/TimeAssociated DiagnosisCommentsCT LOW DOSE LUNG NANMGKCYPQmyljjv45/10/2025 12:40 PM EST Smoker documented in this encounter Results * CT low dose lung screening (Annual) (02/10/2025 12:40 PM EST)Anatomical Region LateralityModalityBody, Lung, Chest, Body CoveraComputed TomographySpecimen (Source)Anatomical Location / LateralityCollection Method / VolumeCollection TimeReceived Time02/12/2025 10:20 AM EST Narrative 02/12/2025 10:23 AM EST CLINICAL INFORMATION: Screening visit: Personal history of tobacco use/personal history of nicotine dependence. Lung cancer screening. ?? The patient has a 40 pack-year history of smoking. The patient is a Current smoker. COMPARISON: 01/10/2021 TECHNIQUE: Low dose CT chest performed without contrast with coronal and sagittal and maximum intensity projection reconstructed images. Maximum intensity projection images generated to increase the sensitivityof pulmonary nodule detection. Automated exposure control was utilized. All CT scans at this facility use dose modulation, iterative reconstruction, and/or weight based dosing when appropriate to reduce radiation dose to as low as reasonably achievable. Computer aided detection for pulmonary nodules was performed utilizing [employer].Early[employer] software. FINDINGS: Diagnostic quality: Satisfactory Lung nodules: No suspicious pulmonary nodules. Lungs and pleural spaces: No acute infiltrate. No pleural effusion or pleural thickening. A faint linear opacities peripherally compatible with atelectasis. Heart and mediastinum:No mediastinal mass or adenopathy within the limitations of this study. Ascending thoracic aortic diameter: 3.1 cm. Main pulmonary artery diameter: 3.1 cm. Descending thoracic aortic diameter: 2.3 cm. Heart size: Within normal limits. Coronary calcification: Moderate Pericardial effusion: Small Other findings: No acute osseous abnormality within the thorax. IMPRESSION: No suspicious pulmonary nodules. Moderate coronary artery calcification with a small pericardial effusion. Lung Rads Category: 1- Negative Recommendation: CT Low Dose Lung Screening 1 year Finalized by Kuldeep Paige MD on 02/12/2025 10:23 AM Procedure Note Kuldeep Paige MD - 02/12/2025 CLINICAL INFORMATION: Screening visit: Personal history of tobacco use/personal history ofnicotine dependence. Lung cancer screening. The patient has a 40 pack-year history of smoking. The patient is a Current smoker. COMPARISON: 01/10/2021 TECHNIQUE: Low dose CT chest performed without contrast with coronal and sagittal and maximum intensity projection reconstructed images. Maximum intensityprojection images generated to increase the sensitivity of pulmonarynodule detection. Automated exposure control was utilized. All CT scans at this facility use dose modulation, iterativereconstruction, and/or weight based dosing when appropriate to reduceradiation dose to as low as reasonably achievable. Computer aideddetection for pulmonary nodules was performed utilizing [employer]. FINDINGS: Diagnostic quality: Satisfactory Lung nodules: No suspicious pulmonary nodules. Lungs and pleural spaces: No acute infiltrate. No pleural effusion orpleural thickening. A faint linear opacities peripherally compatible withatelectasis. Heart and mediastinum:No mediastinal mass or adenopathy within thelimitations of this study. Ascending thoracic aortic diameter: 3.1 cm. Main pulmonary artery diameter: 3.1 cm. Descending thoracic aortic diameter: 2.3 cm. Heart size: Within normal limits. Coronary calcification: Moderate Pericardial effusion: Small Other findings: No acute osseous abnormality within the thorax. IMPRESSION: No suspicious pulmonary nodules. Moderate coronary artery calcification with a small pericardialeffusion. Lung Rads Category: 1- Negative Recommendation: CT Low Dose Lung Screening 1 year Finalized by Kuldeep Paige MD on 02/12/2025 10:23 AM Authorizing ProviderResult TypeResult StatusDennis Raymond Parra DOIMG CT ORDERABLES Final Result documented in this encounter Visit Diagnoses Diagnosis Smoker Tobacco use disorder documented in this encounter Additional Health Concerns AssessmentNoted TimePHQ-9 Depression Total Score: 11:34 AM ESTA Body Mass Index follow-up plan has been documented for the prmwgsq4401/11/2025 5:46 PM ESTdocumented as of this encounter Care Teams Team MemberRelationshipSpecialtyStart DateEnd Date Colten Parra DO [address] [facility], [place] [address] PCP - GeneralFamily Medicine04/03/22documented as of this encounter
--- OUTSIDE RECORDS SUMMARY | 2025-02-22 11:00 | XMS_ITS | Encounter Summary ---
Author Organization [facility] Address [address] [place] [address] Phone Care Team Providers Care Thermometer Maker Name Role Phone ElisaColten figueroa Primary Care Provider + [phone] Reason for Referral * Consultation (Routine) - AuthorizedSpecialtyDiagnoses / ProceduresReferred By ContactReferred To ContactPharmacy Diagnoses Atherosclerosis of elim ira coronary artery of elim ira heart without angina pectoris History of PTCA History of ST elevation myocardial infarction (STEMI) Primary hypertension Mixed hyperlipidemia BMI 36.0-36.9,adult Sleep apnea with use of continuous positive airway pressure (CPAP) Rachel Stacy MD [address] [place] [address] Phone: tel: fax: Referral IDStatusReasonStart DateExpiration DateVisits RequestedVisits [id number] Specialty Services Required * Consultation (Routine) - AuthorizedSpecialtyDiagnoses / ProceduresReferred By ContactReferred To ContactCardiology Diagnoses Atherosclerosis of elim ira coronary artery of elim ira heart without angina pectoris Procedures Follow Up In Cardiology Rachel Stacy MD [address] [place] [address] Phone: tel: fax: Rachel Stacy MD [address] [place] [address] Phone: tel: fax: Referral IDStatusJessicaasonStcambridge DateExpiration DateVisits RequestedVisits [id number]/22/202512/22/202611 Reason for Visit * ReasonCommentsFollow-up6m Follow up for Coronary Artery Disease * Consultation (Routine) - AuthorizedSpecialtyDiagnoses / ProceduresReferred By ContactReferred To ContactCardiology Diagnoses Atherosclerosis of elim ira coronary artery of elim ira heart without angina pectoris Procedures Follow Up In Cardiology Rachel Stacy MD [address] [place] [address] Phone: tel: fax: Rachel Stacy MD [address] [place] [address] Phone: tel: fax: Referral IDStatusTyStcambridge DateExpiration DateVisits RequestedVisits [id number]/20/20256/ Encounter Details DateTypeDepartmentCare Team (Latest Contact Info)Ieexvnmhmlv64/22/2025 11:00 AM ESTOffice Visit [facility] [address] [address] Rachel Stacy MD [address] [place] [phone] Atherosclerosis of elim ira coronary artery of elim ira heart without angina pectoris; History of PTCA; History of ST elevation myocardial infarction (STEMI); Primary hypertension; Mixed hyperlipidemia; Current every day smoker; BMI 36.0-36.9,adult; Sleep apnea with use of continuous positive airway pressure (CPAP) Discharge Disposition: Home Social History Tobacco UseTypesPacks/DayYears UsedDateSmoking Tobacco: Every DayCigarettes Smokeless Tobacco: NeverAlcohol UseStandard Drinks/WeekCommentsYes0 (1 standard drink = 0.6 oz pure alcohol)very littleSex and Gender InformationValueDate RecordedSex Assigned at EebmgEaka63/09/2024 1:53 PM EDTLegal HqlCznm83/26/2022 9:05 AM ESTGender FzahxkjuTcmp30/09/2024 1:53 PM EDTSexual OrientationStraight 12/11/2023 1:53 PM EDTdocumented as of this encounter Last Filed Vital Signs Vital SignReadingTime TakenCommentsBlood Gvewidct668/5802/22/2025 11:11 AM EST Cxlqp785902/22/2025 11:11 AM ESTTemperature--Respiratory Rate--Oxygen Saturation-- Inhaled Oxygen Concentration--Iozcxw361 kg (283 lb)02/22/2025 11:11 AM ESTHeight 188 cm (6' 2 )02/22/2025 11:11 AM ESTBody Mass Index36.34104/25/2024 11:11 AM EST documented in this encounter Functional Status * PulseAnswerDate of CvewxwdeekKqbcqa1080/22/2025 11:11 AM Rubia Grover LPN documented as of this encounter Patient Instructions * Patient Instructions* Vanessa Ambriz LPN - 02/22/2025 11:00 AM EST Please bring all medicines, vitamins, and herbal supplements with you when you come to the office. Prescriptions will not be filled unless you are compliant with your follow up appointments or have a follow up appointment scheduled as per instruction of your physician. Refills should be requested at the time of your visit. BMI was above normal measurement. Current weight: 128 kg (283 lb) Weight change since last visit (-) denotes wt loss 3 lbs Weight loss needed to achieve BMI 25: 88.7 Lbs Weight loss needed to achieve BMI 30: 49.8 Lbs Provided instructions on dietary changes. Patient has Rx's until next OV is scheduled 08/21/25 Rx's . * Attachments The following attachments cannot be sent through Care Everywhere. * Heart Healthy Diet (Bahamian) documented in this encounter Progress Notes * Rachel Stacy MD - 02/22/2025 11:00 AM EST Images from the original note were not included. Chief Complaint: Chief Complaint Patient presents with Follow-up 6m Follow up for Coronary Artery Disease Patient with atherosclerotic elim ira vessel coronary artery disease elim ira heart without angina pectoris, primary hypertension, mixed hyperlipidemia, current everyday smoker, obstructive sleep apnea with use of continuous CPAP therapy, BMI 36.3, presents for 6-month follow-up. At last office visit, amlodipine was discontinued because of lower extremity edema, and I thought the lower extremity edema was partly due to amlodipine. Increased lisinopril to 40 mg daily, and added Aldactone 25 mg daily. Subjective : Review of Systems interval review of systems is negative for chest discomfort pressure tightness heaviness palpitations lightheadedness orthopnea paroxysmal nocturnal dyspnea dependent edema or claudication TIA or CVA type symptoms or bleeding diathesis Blood pressure is under control Does not experience dizzy spells Lower extremity edema has improved History so Far : 1. Atherosclerosis of elim ira coronary artery of elim ira heart PCI November 2020-codominant system diffuse coronary [...] of treatment strategy demonstrates good control 5. CT chest lung screening February 2025-no suspicious pulmonary nodules, moderate coronary calcification, small pericardial effusion, ascending thoracic aorta at 3.1 cm descending thoracic aorta 2.3cm 6. BMI 37 01/06/24, 35.956 2024 7. [...] Objective Wt Readings from Last 3 Encounters: 02/22/25 128 kg (283 lb) 08/21/24 127 kg (280 lb) 02/21/24 131 kg (289 lb) Vitals: 02/22/25 1111 BP: 110/58 BP Location: Right arm Patient Position: Sitting Pulse: 80 Weight: 128 kg (283 lb) Height: 1.88 m (6' 2 ) [...] Outpatient Medications Medication Instructions aspirin 81 mg, Daily atorvastatin (LIPITOR) 80 mg, oral, Daily cyclobenzaprine (Flexeril) 10 mg tablet 1 tablet, 3 times daily (0900,1400,1900) divalproex (DEPAKOTE) 125 mg, Daily finasteride (PROSCAR) 5 mg, Daily RT HYDROcodone-acetaminophen ([place]) 5-325 mg tablet 1 tablet, 2 times daily PRN lisinopriL-hydrochlorothiazide 20-12.5 mg tablet 1 tablet, oral, Daily lisinopril 20 mg, oral, Daily magnesium oxide (MAG-OX) 400 mg, Daily metoprolol tartrate (LOPRESSOR) 25 mg, oral, 2 times daily nitroglycerin (NITROSTAT) 0.4 mg, sublingual, Every 5 min PRN spironolactone (ALDACTONE) 25 mg, oral, Daily tamsulosin (FLOMAX) 0.4 mg, 2 times daily zonisamide (ZONEGRAN) 100 mg, 2 times daily Allergies: Isosorbide mononitrate, Amoxicillin, and Prednisone LABS: Testing Reviewed Labs TSH: No results found for: TSH Reviewed all available pertinent laboratory data and diagnostic testing results that occurred afterthe last office visit with tn February 2025-sodium 140 potassium 4.1 glucose 99 BUN 25 creatinine 1 GFR greater than 60 liver enzymes normal, total cholesterol 118 triglycerides 149 HDL 36 LDL 53 sodium 139 potassium 4.6 BUN 15 creatinine 1 liver enzymes normal GFR 80 hemoglobin 14 hematocrit 41.4 platelets 4 [address]7900 Assessment: 1. Atherosclerosis of elim ira coronary artery of elim ira heart without angina pectoris Follow Up In Cardiology 2. History of PTCA 3. History of ST elevation myocardial infarction (STEMI) 4. Primary hypertension 5. Mixed hyperlipidemia 6. Current every day smoker 7. BMI 36.0-36.9,adult 8. Sleep apnea with use of continuous positive airway pressure (CPAP) Clinical Decision Making: This is a patient with CAD, risk factors, obstructive sleep apnea and BMI of 36.3. Uses cane as ambulatory aid. He has not been able to lose weight with lifestyle modification. He is amenable to GLP-1 agent. I have placed referral to clinical pharmacy to help us with this. Zepbound may be covered with his diagnosis of obstructive sleep apnea. He is also a diabetic. Follow up : 6 months Comprehensive profile and lipid profile prior to next visit I, Vanessa Palacios LPN am scribing for, and in the presence of Dr. Rachel Stacy MD, FACC. I, Dr. Rachel Stacy MD, FACC, personally performed the services described in the documentation as scribed by Vanessa Palacios LPN in my presence, and confirm it is both accurate and complete. documented in this encounter Plan of Treatment DateTypeDepartmentCare Team (Latest Contact Info)Gzggtsmzzuk93/01/2026 10:45 AM EDTOffice Visit at [facility] [address] [facility] [address] [place] [address] Rachel Stacy MD [address] [facility] [address] [place] [address] NameTypePriorityAssociated DiagnosesOrder ScheduleLipid PanelLabRoutine Mixed hyperlipidemia Expected: 02/22/2025, Expires: 02/22/2026omprehensive Metabolic PanelLabRoutine Atherosclerosis of elim ira coronary artery of elim ira heart without angina pectoris Primary hypertension Expected: 02/22/2025, Expires: 02/22/2026NameTypePriorityAssociated Diagnoses Order ScheduleReferral to Clinical PharmacyOutpatient ReferralNon-Urgent Atherosclerosis of elim ira coronary artery of elim ira heart without angina pectoris History of PTCA History of ST elevation myocardial infarction (STEMI) Primary hypertension Mixed hyperlipidemia BMI 36.0-36.9,adult Sleep apnea with use of continuous positive airway pressure (CPAP) Expected: 02/22/2025 (Approximate), Expires: 02/22/2026documented as of this encounter Visit Diagnoses Diagnosis Atherosclerosis of elim ira coronary artery of elim ira heart without angina pectoris History of PTCA Postsurgical percutaneous transluminal coronary angioplasty status History of ST elevation myocardial infarction (STEMI) Primary hypertension Unspecified essential hypertension Mixed hyperlipidemia Current every day smoker BMI 36.0-36.9,adult Sleep apnea with use of continuous positive airway pressure (CPAP) documented in this encounter Additional Health Concerns AssessmentNoted TimeA fall risk assessment has been completed for the patient 02/22/2025 11:11 AM ESTdocumented as of this encounter Care Teams Team MemberRelationshipSpecialtyStart DateEnd Date Colten Parra DO PCP - Pakrsqr13/22/21documented as of this encounter
--- OUTSIDE RECORDS SUMMARY | 2025-02-23 09:25 | XMS_ITS | Clinical Summary ---
Author Organization [facility] Address [address] [place] [address] Care Team Providers Care Manager Financial Reporting Name Role Phone Colten Parra DO Primary Care Provider [phone] Allergies No known active allergies Medications MedicationSigDispense QuantityRefillsLast FilledStart DateEnd DateStatus atorvastatin (Lipitor) 80 mg tablet Take 80 mg by mouth in the morning.03/09/2022ctive HYDROcodone-acetaminophen ([place]) 5-325 mg tablet Take 1 tablet by [...] TAKE 1 CAPSULE EVERY DAY AT BEDTIME OTZCBT7704/15/2022ctive apixaban (Eliquis) 5 mg tablet Take 5 mg by mouth in the morning and at bedtime.Active aspirin 81 mg EC tablet Take 81 mg by mouth in the morning.Active apixaban (Eliquis) 5 mg tablet Indications:History of DVT (deep vein thrombosis)Take 1 tablet (5 mg) by mouth in the morning and at bedtime. 60 tablet 303/07/2023Active Active Problems ProblemNoted DateDiagnosed DateCellulitis of right leg3Primary tvzfzxtfyiui65/21/2023Right leg pain3Acute upper respiratory infection, gsubpmquljl57/14/2019Nicotine dependence, cigarettes, uistsrriormto38/14/2019 Social History Tobacco UseTypesPacks/DayYears UsedDateSmoking Tobacco: Every DmeQvuakeknjl525 Smokeless Tobacco: Never Tobacco Cessation:Ready to Q uit: Not Asked; Counseling Given: Not Answered Alcohol UseStandard Drinks/WeekCommentsYes0 (1 standard drink = 0.6 oz pure alcohol)UT Safety & EnvironmentAnswerDate RecordedFear of Current or Ex-Partner Not on file04/25/2023Emotionally AbusedNot on file04/25/2023hysically AbusedNot on file04/25/2023Sexually AbusedNot on file04/25/2023hysically or Sexually AbusedNot on file04/25/2023Sex and Gender InformationValueDate RecordedSex Assigned at BirthNot on fileLegal PetUtqo7404/27/2022 2:26 PM ESTGender Identity Not on fileSexual OrientationNot on file Last Filed Vital Signs Vital SignReadingTime TakenCommentsBlood Rsfvxkrk066/7903 2:29 PM EST Pirlo9400/07/2023 2:29 PM ESTTemperature--Respiratory Rate--Oxygen Lupcppkrkw17% 05/08/2022 2:29 PM ESTInhaled Oxygen Concentration--Ygsong177 kg (250 lb) 05/08/2022 2:29 PM DNEAizsuw347 cm (6' 2 )05/08/2022 2:29 PM ESTBody Mass Index 32.103 2:29 PM EST Plan of Treatment Health MaintenanceDue DateLast DoneCommentsCT Yiidlejrwnnk07/07/1966Colonoscopy 1965FIT-DNA1965FOBT1965 4354Pscxblvxdyfmk94/07/1966Depression Pyretzlti95/07/1978Hepatitis B Vaccines (1 of 3 - 19+ 3-dose series)1984 Pneumococcal Vaccine: Pediatrics (0 to 5 Years) and At-Risk Patients (6 to 64 Years) (1 of 2 - PCV)1984Adult Fenhfdr5007/09/1987Zoster Vaccines (1 of 2) 07/09/2015Colorectal Cancer Cvrzvnjeq48/20/0989HZO603COVID-19 Vaccine (1 - 2024- season)2024Influenza Vaccine (#1)2024 [...] TypeRelation to PatientDate of BirthPhone Billing AddressWorkers VrryItvc[birth year][address] [address] Care Teams Team MemberRelationshipSpecialtyStart DateEnd Date Colten Parra DO [facility]05/08/22
--- OUTSIDE RECORDS SUMMARY | 2025-02-23 09:25 | XMS_ITS | Continuity of Care Document ---
Author Organization [facility] Address [address] [place] [address] Care Team Providers Care Global Cmo Name Role Phone Unavailable Primary Care Provider Unavailabl e Encounters DateTypeDepartmentCare DozfIecpcivcxjw85/14/2022eCW Legacy Documentation NOMS DATA CONVERSION LEGACY 01/04/2022 [...] Last Filed Vital Signs Vital SignReadingTime TakenCommentsBlood Fpzeelqd522/7009 12:00 PM EDT Pulse--Temperature--Respiratory Rate--Oxygen Saturation--Inhaled Oxygen Concentration--Ssqruv777 kg (257 lb)01/01/2022 12:00 PM MQVEvzoqq532.4 cm (6' 1 )01/01/2022 12:00 PM EDTBody Mass Index33.9101/01/2022 12:00 PM EDT Plan of Treatment Not on file Procedures Procedure NamePriorityDate/TimeAssociated DiagnosisCommentsXR FOOT 3+ VIEWS LEFT Tpkqpet9412/27/2021 12:00 PM EDT Pain in left foot Other specified soft tissue disorders XR FOOT 3+ VIEWS GHVTXureyhv71/24/2022 12:00 PM EDT Pain in left foot Other specified soft tissue disorders MRI FOOT LT WO SCYZypkkvo43/17/2022 Pain in left foot Other specified soft tissue disorders XR CHEST 2 WWOAUVvoroxo59/10/2019 X RAY : ANKLE, LEFT 4YXurjttr68/02/2018 12:00 PM EDT Flat foot (pes planus) (acquired), left foot Pain in left ankle and joints of left foot Secondary osteoarthritis, 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 X RAY : FOOT, LEFT 8NXnwswyh85/02/2018 12:00 PM EDT Flat foot (pes planus) (acquired), left foot Pain in left ankle and joints of left foot Secondary osteoarthritis, 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 MR LUMBAR SPINE WO JTYIPRVYDihgrwr44/16/2018 12:00 PM EDT Other chronic pain Lumbago with sciatica, right side Lumbago with sciatica, left side Tobacco use Encounter for general adult medical examination without abnormal findings Essential (primary) hypertension Episodic tension-type headache, intractable Unspecified acquired deformity of left lower leg XR KNEE 3 VIEWS XSKLJekanje83/22/2018 Pain in left knee X RAY : ELBOW, NQYDNygtlsx11/01/2018 12:00 PM EST Lateral epicondylitis, left elbow Results * XR foot 3+ views left (12/27/2021 12:00 PM EDT) Only the most recent of2 resultswithin the time period is included. Anatomical RegionLateralityModalityLower Extremities, FootLeftRadiographic ImagingSpecimen (Source)Anatomical Location / LateralityCollection Method / VolumeCollection TimeReceived Time12/27/2021 12:00 PM EDT Narrative 12/27/2021 12:00 PM EDT PERFORMED AT [facility] LOCATION:[id number] Procedure Note CONVERSION, GENERIC - 07/18/2022 PERFORMED AT [facility] LOCATION:[id number] Authorizing ProviderResult TypeResult StatusMattkatherin Oakley [facility] XR PROCEDURES Final Result * MRI FOOT LT WO CON (12/18/2021)Anatomical RegionLateralityModalityRadiographic ImagingSpecimen (Source)Anatomical Location / LateralityCollection Method / VolumeCollection TimeReceived Time12/18/2021 Narrative 12/28/2021 12:00 AM EDT PERFORMED AT [facility] LOCATION:[place] 112 150 EXAM: MRI FOOT LT [...] Note CONVERSION, GENERIC - 07/19/2022 PERFORMED AT [facility] LOCATION:[place] 112 150 EXAM: MRI FOOT LT WO [...] Narrative 03/13/2018 12:00 AM EST PERFORMED AT [facility] LOCATION:[address] [address] Patient: ? ASHOK BELCHER ? Exam Date: ? 03/13/2018 : ? 1965 ?Gender:M ? Ordering : ? ALEIDA RUELAS . ? Admission #: ? [id number] Family : ?Order #: ? [id number] CLICK HERE TO VIEW EXAM RADIOLOGY REPORT [...] Note CONVERSION, GENERIC - 07/18/2022 PERFORMED AT [facility] LOCATION:[place] [address] [address] [place] [address] Patient: ASHOK BELCHER Exam Date: 03/13/2018 : 1965 Gender:M Ordering : ALEIDA RUELAS . Admission #: [id number] Family : Order #: [id number] CLICK HERE TO VIEW EXAM RADIOLOGY REPORT [...] Narrative 10/03/2017 12:00 PM EDT PERFORMED AT [facility] LOCATION:[id number] Procedure Note CONVERSION, GENERIC - 07/18/2022 PERFORMED AT [facility] LOCATION:[id number] Authorizing ProviderResult TypeResult Nomi Conklin MDIMG XR PROCEDURESFinal Result * X RAY : ANKLE, LEFT 3V (10/03/2017 12:00 PM EDT)Anatomical RegionLaterality ModalityRadiographic ImagingSpecimen (Source)Anatomical Location / Laterality Collection Method / VolumeCollection TimeReceived Time10/03/2017 12:00 PM EDT Narrative 10/03/2017 12:00 PM EDT PERFORMED AT [facility] LOCATION:[id number] Procedure Note CONVERSION, GENERIC - 07/18/2022 PERFORMED AT [facility] LOCATION:[id number] Authorizing ProviderResult TypeResult StatusDanny Conklin MDIMG XR PROCEDURESFinal Result * MR lumbar spine wo contrast (07/17/2017 12:00 PM EDT)Anatomical Region LateralityModalitySpine, L-spineMagnetic ResonanceSpecimen (Source)Anatomical Location / LateralityCollection Method / VolumeCollection TimeReceived Time 07/17/2017 12:00 PM EDT Narrative 07/17/2017 12:00 PM EDT PERFORMED AT [facility] LOCATION:[id number] Procedure Note CONVERSION, GENERIC - 07/18/2022 PERFORMED AT [facility] LOCATION:[id number] Authorizing ProviderResult TypeResult StatusMagda Slade MDIMG MRI PROCEDURES Final Result * XR knee 3 views left (04/25/2017)Anatomical RegionLateralityModalityLower Extremities, KneeLeftRadiographic ImagingSpecimen (Source)Anatomical Location / LateralityCollection Method / VolumeCollection TimeReceived Time04/25/2017 Narrative 04/25/2017 12:00 AM EST PERFORMED AT [facility] LOCATION:[place] [address] Procedure Note CONVERSION, GENERIC - 07/18/2022 PERFORMED AT [facility] LOCATION:[place] [address] Authorizing ProviderResult TypeResult StatusPaulina Dillard NPIMG XR PROCEDURES Final Result * X RAY : ELBOW, LEFT (04/04/2017 12:00 PM EST)Anatomical RegionLaterality ModalityRadiographic ImagingSpecimen (Source)Anatomical Location / Laterality Collection Method / VolumeCollection TimeReceived Time04/04/2017 12:00 PM EST Narrative 04/04/2017 12:00 PM EST PERFORMED AT [facility] LOCATION:[id number] Procedure Note CONVERSION, GENERIC - 07/18/2022 PERFORMED AT [facility] LOCATION:[id number] Authorizing ProviderResult TypeResult StatusNasir RiveraG XR PROCEDURESFinal [...]
--- OUTSIDE RECORDS SUMMARY | 2025-02-23 09:25 | XMS_ITS | Clinical Summary ---
Author Organization [facility] Address [address] [facility], [address] [place] [address] Care Team Providers Care Commercial Hvac Technician Name Role Phone Kash Killian MD Primary [...] upper respiratory infection, unspecified 03/17/2018Nicotine dependence, cigarettes, jquoyrzrytdvy38/14/2019 Resolved Problems ProblemNoted DateDiagnosed DateResolved YlboDgvzk91 Immunizations ImmunizationAdministration DatesNext DueInfluenza Virus Jatcapp8901/21/2019 Influenza, AFLURIA (age 3 y+), FLUZONE, (age [...] 0.6 oz pure alcohol)very rarePHQ-2AnswerDate RecordedPHQ-9 Total Xftog388ex and Gender InformationValueDate RecordedSex Assigned at BirthNot on fileLegal Sex Male10/07/2018 10:37 AM EDTGender IdentityNot on fileSexual OrientationNot on file Last Filed Vital Signs Vital SignReadingTime TakenCommentsBlood Cboyunji498/9204/28/2020 3:03 PM EST Dplhh979404/28/2020 3:03 PM OURCjmmncslwcy62.8 ??C (98.3 ??F)04/28/2020 3:03 PM ESTRespiratory Bzvi958711/10/2019 1:25 PM EDTOxygen Dddxybdans24%04/28/2020 3:03 PM ESTInhaled Oxygen Concentration--Tyvcgw682.7 kg (275 lb)11/10/2019 10:06 AM PBDEzttsh931 cm (6' 2 )11/10/2019 10:06 AM EDTBody Mass Index35.31011/10/2019 10:06 AM EDT Plan of Treatment Not on file Insurance Care Teams Team MemberRelationshipSpecialtyStart DateEnd Kash Killian MD [address] [place] [address] [facility] - [facility]/03/20
--- OUTSIDE RECORDS SUMMARY | 2025-02-23 09:25 | XMS_ITS | Continuity of Care Document ---
Author Organization [facility] Address [address] [place] [address] Phone Care Team Providers Care Senior Contracts Manager Name Role Phone Colten Parra Primary Care Provider Encounters DateTypeDepartmentCare KzvqXyuvagxqrkf87/22/6890Jtcltz07/22/2025 11:00 AM EST Office Visit at [facility] [address] [phone] Rachel Stacy MD Atherosclerosis of [place] coronary artery of [place] heart without angina pectoris; History of PTCA; History of ST elevation myocardial infarction (STEMI); Primary hypertension; Mixed hyperlipidemia; Current every day smoker; BMI 36.0-36.9,adult; Sleep apnea with use of continuous positive airway pressure (CPAP) Discharge Disposition: Home02/18/2025Scanned Document [facility] [address] [place] [address] Scanning, Generic Provider 01/26/2025Refill at [facility] [address] [address] Rubia Verduzco LPN Primary hypertension (Primary Dx)08/21/2024Telephone at [facility] [address] [phone] Vanessa Ambriz LPN Error (VOID this visit)08/21/20247188Yqudvl02/20/2025 9:45 AM EDTOffice Visit at [facility] [address] [place] [phone] Rachel Stacy MD Atherosclerosis of [place] coronary artery of [place] heart without angina pectoris; Medication course changed; Primary hypertension; Mixed hyperlipidemia; Palpitations; Current every day smoker; Sleep apnea with use of continuous positive airway pressure (CPAP); BMI 35.0-35.9,adult08/17/2024Scanned Document [facility] [address] [place] [address] Scanning, Generic Provider 03/24/2024Refill at [facility] [address] [place] [phone] Vanessa Ambriz LPN Primary hypertension; Mixed hyperlipidemia; Shortness of breath; Hjnkckulkcqb28/13/2025Refill at [facility] [address] [place] [phone] Rachel Stacy MD Primary lukpnrfdewyr35/05/2025Refill at [facility] [address] [place] [phone] Rachel Stacy MD Primary hypertension; Pfqvtcncdocl55/20/2104Cllnxg17/20/2024 1:15 PM ESTOffice Visit at [facility] [address] [place] [phone] Rachel Stacy MD Shortness of breath; Encounter to discuss test results; History of PTCA; Mixed hyperlipidemia; Primary hypertension; Current every day smoker; BMI 37.0-37.9, adult; Medication course changed; Hypertension, unspecified type; Atherosclerosis of [place] coronary artery of [place] heart without angina pectoris; Other hyperlipidemia; Sleep apnea with use of continuous positive airway pressure (CPAP); History of ST elevation myocardial infarction (STEMI); BMI 35.0-35.9,adult01/09/2024Scanned Document [facility] [address] [place] [phone] Scanning, Generic Provider 01/09/2024Orders Only [facility] [address] [place] [address] Leonid Morrissey DO 01/07/2024Telephone at [facility] [address] [place] [address] Rachel Stacy MD 01/06/20240139Nuhcwn35/04/2024 3:15 PM ESTOffice Visit at [facility] [address] [place] [address] Rachel Stacy MD Coronary artery disease involving [place] coronary artery of [place] heart with unstable angina pectoris (Multi) (Primary Dx); Encounter to discuss test results; Shortness of breath; History of PTCA; History of ST elevation myocardial infarction (STEMI); Primary hypertension; Other hyperlipidemia; Palpitations; Acute cough; Sleep apnea with use of continuous positive airway pressure (CPAP); BMI 37.0-37.9, adult; Current every day smoker; Fatigue, unspecified type; Medication course changed; Chest pain, unspecified type; Abnormal nuclear stress test12/24/20233450Kuejsn80/22/2024 3:00 PM EDTAncillary Procedure [facility] [address] [facility] [address] [place] [address] Hypertension, unspecified type; Atherosclerosis of [place] coronary artery of [place] heart without angina pectoris; Current every day smoker; Other hyperlipidemia; Palpitations; Unstable angina pectoris (Multi); Sleep apnea with use of continuous positive airway pressure (CPAP); History of ST elevation myocardial infarction (STEMI); History of PTCA; Shortness of breath; Acute cough; BMI 35.0-35.9,adult12/24/2023 2:30 PM EDTAncillary Procedure [facility] [address] [facility] [address] [place] [address] Hypertension, unspecified type; Atherosclerosis of [place] coronary artery of [place] heart without angina pectoris; Current every day smoker; Other hyperlipidemia; Palpitations; Unstable angina pectoris (Multi); Sleep apnea with use of continuous positive airway pressure (CPAP); History of ST elevation myocardial infarction (STEMI); History of PTCA; Shortness of breath; Acute cough; BMI 35.0-35.9,adult; Chest pain, pftvtnfukij59/22/2024 2:00 PM EDTAncillary Procedure [address] [address] 12/24/2023 1:30 PM EDTAncillary Procedure [address] [address] 12/24/2023 1:00 PM EDTAncillary Procedure [address] [address] Primary hypertension (Primary Dx); Atherosclerosis of [place] coronary artery of [place] heart with stable angina pectoris; Current every day ciduwd0412/24/2023 12:30 PM EDTAncillary Procedure [address] [address] 12/24/2023 12:00 PM EDTAncillary Procedure [address] [address] Hypertension, unspecified type; Atherosclerosis of [place] coronary artery of [place] heart without angina pectoris; Current every day smoker; Other hyperlipidemia; Palpitations; Unstable angina pectoris (Multi); Sleep apnea with use of continuous positive airway pressure (CPAP); History of ST elevation myocardial infarction (STEMI); History of PTCA; Shortness of breath; Acute cough; BMI 35.0-35.9,adult12/13/20238831Mufula67/11/2024 11:30 AM EDTOffice Visit [address] [address] Jose Cuevas MD Hypertension, unspecified type; Atherosclerosis of [place] coronary artery of [place] heart without angina pectoris; Current every day smoker; Other hyperlipidemia; Palpitations; Unstable angina pectoris (Multi); Sleep apnea with use of continuous positive airway pressure (CPAP); History of ST elevation myocardial infarction (STEMI); History of PTCA; Shortness of breath; Acute cough; BMI 35.0-35.9,adult12/11/2023Telephone [facility] [address] [phone] Vanessa Ambriz LPN sooner OV08/28/20233987Rejcwq82/26/2024 2:00 PM EDTOffice Visit at [facility] [address] [phone] Leonid Figueredo MD Atherosclerosis of [place] coronary artery of [place] heart without angina pectoris (Primary Dx); History of PTCA; Mixed hyperlipidemia; Primary hypertension; Current every day smoker; BMI 35.0-35.9,adult04/02/2023bstract [facility] at [facility] [place] [facility] [address] [phone] Sakshi Park MD 04/01/2023efill [facility] at [facility] [place] [address] [place] [phone] Leonid Figueredo MD Primary blsfzlstafns27/25/2023Legacy Encounter [facility] OFF[facility] LEGACY [address] Birdie Smith, INSURANCE AGENCY OWNER-SALES AGENT INSURANCE 03/08/2022Legacy Encounter [facility] [address] [place] [address] Conversion, Touchworks 01/08/2022Legacy Encounter [facility] [address] [place] [address] Conversion, Touchworks 10/19/2021Legacy Encounter [facility] [address] [place] [address] Leonid Figueredo MD 10/19/2021Legacy Encounter [facility] OFFICE LEGACY [address] Leonid Figueredo MD 08/28/2021Legacy Encounter [facility] [address] [place] [address] Conversion, Touchworks 08/24/2021Legacy Encounter [facility] [address] [place] [address] Conversion, Touchworks 08/23/2021Legacy Encounter [facility] [address] [place] [address] Leonid Figueredo MD 06/13/2021Legacy Encounter [facility] [address] [place] [address] Conversion, Touchworks 05/31/2021canned Document [facility] [address] [place] [address] Conversion, Onbase 05/26/2021Legacy Encounter [facility] [address] [place] [address] Leonid Figueredo MD 05/26/2021Legacy Encounter [facility] [address] Leonid Figueredo MD 12/27/2020egacy Encounter [facility] [address] [place] [address] Kalie Lebron, INSURANCE AGENCY OWNER-SALES AGENT INSURANCE 12/27/2020egacy Encounter [facility] OFFICE LEGACY [address] Rachel Stacy MD 12/23/2020egacy Encounter [facility] [address] Rachel Stacy MD Atherosclerotic heart disease of [place] coronary artery without angina pectoris 11/30/2020canned Document [facility] [address] [place] [address] Conversion, Onbase 11/29/2020canned Document [facility] [address] [place] [address] Conversion, Onbase 11/21/2020canned Document [facility] [address] [place] [address] Conversion, Onbase 11/20/2020canned Document [facility] [address] [place] [address] Conversion, Onbase 11/18/2020 7:17 PM EDT - 11/20/2020 4:00 PM EDTHospital Encounter [facility] [address] elevation (STEMI) myocardial infarction involving other coronary artery of inferior wall (Multi)(Primary Dx) Discharge Disposition: Home11/19/2020egacy Encounter [facility] [address] [place] [address] Jerry Bronson MD 1Scanned Document [facility] [address] [place] [address] Conversion, Onbase 11/18/2020canned Document [facility] [address] [place] [address] Conversion, Onbase 11/18/2020canned Document [facility] [address] [place] [address] Conversion, Onbase 11/18/2020egacy Encounter [facility] [address] [place] [address] Jerry Bronson MD 11/18/2020egacy Encounter [facility] [address] [place] [address] Rachel Stacy MD 11/18/2020egacy Encounter [facility] [address] [place] [address] Leia Stearns, INSURANCE AGENCY OWNER-SALES AGENT INSURANCE 1Scanned Document [facility] [address] [place] [address] Conversion, Onbase 11/18/2020canned Document [facility] [address] [place] [address] Conversion, Onbase 1Scanned Document [facility] [address] [place] [address] Conversion, Onbase 11/18/2020canned Document [facility] [address] [place] [address] Conversion, Onbase 1Legacy Encounter [facility] [address] [place] [address] Jerry Bronson MD 11/18/2020egacy Encounter [facility] [address] [place] [address] Conversion, Syngo Allergies Active AllergyReactionsCriticalityNoted DateCommentsAmoxicillinNausea/vomiting Low7331GlsswdnuerEcxsmmdsetceVsf97/19/2024Isosorbide MononitrateHeadache High01/06/2024 Medications MedicationSigDispense QuantityRefillsLast FilledStart DateEnd DateStatus divalproex (Depakote) 125 mg EC tablet Take 1 tablet (125 mg) by mouth once daily.01/03/2023ctive HYDROcodone-acetaminophen (Scooba) 5-325 mg tablet Take 1 tablet by mouth 2 times a day as needed.03/20/2023ctive tamsulosin (Flomax) 0.4 mg 24 hr capsule Take 1 capsule (0.4 mg) by mouth 2 times a day.09/09/2023ctive finasteride (Proscar) 5 mg tablet Take 1 tablet (5 mg) by mouth once daily.09/09/2023ctive nitroglycerin (Nitrostat) 0.4 mg SL tablet Indications:Hypertension, unspecified type,Atherosclerosis of [place] coronary artery of [place] heart without angina pectoris,Current every day smoker,Other hyperlipidemia,Palpitations,Unstable angina pectoris (Multi),Sleep apnea with use of continuous positive airway pressure (CPAP),History of ST elevation myocardial infarction (STEMI),History of PTCA,Shortness of breath,Acute cough, BMI 35.0-35.9,adultPlace 1 tablet (0.4 mg) under the tongue every 5 minutes if needed for chest pain. 30 tablet ctive cyclobenzaprine (Flexeril) 10 mg tablet Take 1 tablet (10 mg) by mouth 3 times a day.05/21/2024tive zonisamide (Zonegran) 50 mg capsule Take 2 capsules (100 mg) by mouth 2 times a day.5Active spironolactone (Aldactone) 25 mg tablet Indications:Primary hypertensionTake 1 tablet (25 mg) by mouth once daily. 30 tablet 6:52 PM EST/ctive lisinopril 20 mg tablet Indications:Primary hypertensionTake 1 tablet (20 mg) by mouth once daily. 90 tablet 1:19 PM EDT/ctive atorvastatin (Lipitor) 80 mg tablet Indications:Mixed hyperlipidemiaTake 1 tablet (80 mg) by mouth once daily. 90 tablet 3:18 PM EDT/ctive lisinopriL-hydrochlorothiazide 20-12.5 mg tablet Indications:Primary hypertensionTake 1 tablet by mouth once daily. 90 tablet /ctive aspirin 81 mg EC tablet Take 1 tablet (81 mg) by mouth once daily.Active magnesium oxide (Mag-Ox) 400 mg tablet Take 1 tablet (400 mg) by mouth once daily.Active metoprolol tartrate (Lopressor) 25 mg tablet Indications:Primary hypertensionTake 1 tablet (25 mg) by mouth 2 times a day. 180 tablet 02/01/2025 6:24 PM ESTctive baclofen (Lioresal) 10 mg tablet Take 3 tablets (30 mg) by mouth once daily as needed for muscle spasms. Discontinued(Therapy completed) metoprolol tartrate (Lopressor) 25 mg tablet Take 1 tablet (25 mg) by mouth 2 times a day.01/26/2025Discontinued(Reorder) Active Problems ProblemNoted DateDiagnosed DateEncounter to discuss test zycoqam9301/06/2024 Xosblhl3601/06/2024Medication course rersxte9901/06/20246627Fmsweonfuedl52/11/2024Chest pain12/13/2023Sleep apnea with use of continuous positive airway pressure (CPAP) 12/13/2023Shortness of mpcguh9712/13/20230779Athva63/11/2024MI 36.0-36.9,adult 08/28/2023AD (coronary atherosclerotic disease)04/02/2023History of PTCA 04/02/2023History of ST elevation myocardial infarction (STEMI)04/02/2023 Khlhnlzqmswi08/30/3411Jbbvqdfqesyk91/30/2024urrent every day fgkult0304/02/2023 Immunizations ImmunizationAdministration DatesNext DueInfluenza, injectable, quadrivalent 01/21/2019,01/02/2019 Family History Medical HistoryRelationNameCommentsAnginaFatherCOPDFatherCoronary artery disease FatherHeart diseaseFatherpacemakerFatherNo Known ProblemsMotherRelationName StatusCommentsFatherMother Social History Tobacco UseTypesPacks/DayYears UsedDateSmoking Tobacco: Never AssessedSex and Gender InformationValueDate RecordedSex Assigned at SzkexXlzl30/09/2024 1:53 PM EDTLegal XpmWjsc45/26/2022 9:05 AM ESTGender LsgnyuxfEhxf49/09/2024 1:53 PM EDT Sexual OphmdiiixefWagkgwhk13/09/2024 1:53 PM EDT Last Filed Vital Signs Vital SignReadingTime TakenCommentsBlood Lkypmafg575/5802/22/2025 11:11 AM EST Wijad743402/22/2025 11:11 AM ESTTemperature--Respiratory Rate--Oxygen Saturation-- Inhaled Oxygen Concentration--Viwwgf770 kg (283 lb)02/22/2025 11:11 AM ESTHeight 188 cm (6' 2 )02/22/2025 11:11 AM ESTBody Mass Index36.34104/25/2024 11:11 AM EST Plan of Treatment DateTypeDepartmentCare Team (Latest Contact Info)Hycylrruxzj80/01/2026 10:45 AM EDTOffice Visit at [facility] [address] [facility] [address] [place] [address] Rachel Stacy MD [address] [facility] [address] [place] [address] Procedures Procedure NamePriorityDate/TimeAssociated DiagnosisCommentsOUTSIDE LAB SCAN 02/18/2025 OUTSIDE LAB SCAN08/17/2024 ELECTROCARDIOGRAM 12 LEAD01/09/2024 12:56 PM EST NON-[facility] HIE COAGULATION UGQEKEWWbkpuug99/07/2024 12:40 PM EST NON-[facility] HIE B-TYPE NATRIURETIC GOHLIFDCrytday47/07/2024 12:40 PM EST NON-[facility] HIE LIPID LSKNGXfwchxq97/07/2024 12:40 PM EST NON-[facility] HIE DNVQPFKYVKIxohewq67/07/2024 12:40 PM EST NON-[facility] HIE BLOOD UREA NNWHAOSJEetafym18/07/2024 12:40 PM EST NON-[facility] HIE VEDMITTNVFIDEuyxscy32/07/2024 12:40 PM EST NON-[facility] HIE COMPLETE BLOOD COUNT AUTO UCPMAsmsucu01/07/2024 12:40 PM EST TRANSTHORACIC ECHO (TTE) COMPLETE WITH UAEDOWLYIvumamf69/22/2024 3:31 PM EDT Hypertension, unspecified type Atherosclerosis of [place] coronary artery of [place] heart without angina pectoris Current every day smoker Other hyperlipidemia Palpitations Unstable angina pectoris (Multi) Sleep apnea with use of continuous positive airway pressure (CPAP) History of ST elevation myocardial infarction (STEMI) History of PTCA Shortness of breath Acute cough BMI 35.0-35.9,adult Chest pain, unspecified 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, 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 ILTQUldjhhx86/22/2024 3:08 PM EDT Hypertension, unspecified type Atherosclerosis of [place] coronary artery of [place] heart without angina pectoris Current every day smoker Other hyperlipidemia Palpitations Unstable angina pectoris (Multi) Sleep apnea with use of continuous positive airway pressure (CPAP) History of ST elevation myocardial infarction (STEMI) History of PTCA Shortness of breath Acute cough BMI 35.0-35.9,adult STRESS TEST, REGADENOSON W MYOCARDIAL PERFUSION SPECT (MULTI STUDY)Routine 12/24/2023 2:20 PM EDT Hypertension, unspecified type Atherosclerosis of [place] coronary artery of [place] heart without angina pectoris Current every day smoker Other hyperlipidemia Palpitations Unstable angina pectoris (Multi) Sleep apnea with use of continuous positive airway pressure (CPAP) History of ST elevation myocardial infarction (STEMI) History of PTCA Shortness of breath Acute cough BMI 35.0-35.9,adult ECG 12-MGVKDdvmelc33/11/2024 11:30 AM EDT Hypertension, unspecified type Atherosclerosis of [place] coronary artery of [place] heart without angina pectoris Current every day smoker Other hyperlipidemia Palpitations Unstable angina pectoris (Multi) Sleep apnea with use of continuous positive airway pressure (CPAP) History of ST elevation myocardial infarction (STEMI) History of PTCA Shortness of breath Acute cough BMI 35.0-35.9,adult SUNHIBBHPEKARD16/22/2021 VRDVZWXZZGDQRUVekblim64/22/2021 CARDIAC STRESS TEST12/23/2020 CARDIAC STRESS PVVNYfkcjvd76/22/2021 ELECTROCARDIOGRAM RHYTHM STRIP11/29/2020 TROPONIN I DATA FIYYWYQMKMFjvwrtz82/18/2021 9:03 PM EDT ELECTROCARDIOGRAM 12 USMBVypajgg87/18/2021 2:48 PM EDT HEPARIN PDMIWNeubydx14/18/2021 2:38 PM EDT TROPONIN I DATA RYPCOJKVDONnuecyn05/18/2021 1:00 PM EDT HEPARIN JDFVJFegehrb28/18/2021 10:27 AM EDT QNEWlyuffa32/18/2021 5:23 AM EDT TROPONIN I DATA MHMLYXSXSAAawjypd18/18/2021 5:23 AM EDT BASIC METABOLIC DUBMRWadysvx05/18/2021 5:23 AM EDT JIBBHNTGFAmxvoyh36/18/2021 5:23 AM EDT HEPARIN OXUNLSyuxabz93/18/2021 5:23 AM EDT TROPONIN I DATA YXINAEIQOZMjwqqqt19/18/2021 12:54 AM EDT PROTIME-HLBJaryyuc95/18/2021 12:53 AM EDT IKRWIldtilb06/18/2021 12:53 AM EDT ELECTROCARDIOGRAM RHYTHM STRIP11/19/2020 ELECTROCARDIOGRAM 12 LVNPSaynzdk51/17/2021 10:15 PM EDT ACTIVATED CLOTTING TIME NBZYpogclh64/17/2021 7:41 PM EDT ACTIVATED CLOTTING TIME MAUQlymhnn12/17/2021 7:24 PM EDT XR CHEST 1 WMHIOcmemkw31/17/2021 7:19 PM EDT SARS-COV-2 PCR, SCREEN JEWWMCVFPTLSDdyabrn01/17/2021 7:18 PM EDT COMPREHENSIVE METABOLIC VPPBLDpsbpnh73/17/2021 7:17 PM EDT B-TYPE NATRIURETIC PPVFNAYHftgkmw31/17/2021 7:17 PM EDT TROPONIN I DATA TYRCIZLKMQRkggoip42/17/2021 7:17 PM EDT WWGClcseti71/17/2021 7:17 PM EDT ELECTROCARDIOGRAM 12 RFJGZxwpotq74/17/2021 7:00 PM EDT ADULT SATKHltmcbs79/17/2021 OUTSIDE IMAGING SCAN11/18/2020 Results * OUTSIDE LAB SCAN (02/18/2025) Only the most recent of2 resultswithin the time period is included. Narrative 02/18/2025 Ordered by an unspecified provider. Authorizing ProviderResult TypeResult StatusGeneric Provider ScanningOUTSIDE SCANFinal Result * Electrocardiogram (01/09/2024 12:56 PM EST) Only the most recent of4 resultswithin the time period is included. Specimen (Source)Anatomical Location / LateralityCollection Method / Volume Collection TimeReceived Time01/09/2024 12:56 PM EST Narrative [facility] - 01/10/2024 11:17 AM EST [facility] ?[facility] [place] [place] ?[address] ? [place] [address] ? Electrocardiograph Report ? Signed ? Patient: Ashok Doss A ?MR#: [id number] ?? 79 ? : 1965 ?Acct:[id number] ? Age/Sex: 58 / M ?ADM Date: 01/09/24 ? Loc: CL ?Room: ?Type: DEP SDC [...] FACC ? 01/10/24 1117 Authorizing ProviderResult TypeResult StatusWilliam S Ghanshyam DOECG ORDERABLES Final ResultPerforming OrganizationAddressCity/State/ZIP CodePhone Number [facility] [address] [place] [address], [place] * (ABNORMAL) NON-[facility] HIE Complete Blood Count Auto Diff (01/09/2024 12:40 PM EST) ComponentValueRef RangeTest MethodAnalysis TimePerformed AtPathologist SignatureNON- HIE White Blood Count14.4(H)4.1 - 10.5 10*3/uLThe [facility] CtrNON-[facility] Uncorrected WBC14.4(H)4.1 - 10.5 10*3/uL [facility] Red Blood Count4.453.90 - 5.60 [facility] Qrpyrdilto95.013.0 - 17.0 g/dL [facility] Nrzvvhaqov31.938.8 - 50.0 %[facility] Mean Corpuscular Tkfftd90.083.5 - 101 fL [facility] Mean Corpuscular Mgzywlozqr06.427.5 - 35.2 pgFChildren[facility] CtrNON-[facility] HIE Mean Corpuscular HGB Conc34.1 32.5 - 35.6 g/dLThe [facility] CtrNON- HIE Red Cell Distribution Width13.912.0 - 14.8 %[facility] Platelet Count 181990 - 450 10*3/uLThe [facility] CtrNON-[facility] HIE Mean Platelet Volume7.06.6 - 10.1 [facility] HIE Neutrophils % (Auto)59.4. %[facility] Lymphocytes % (Auto)26.8 . %[facility] Monocytes % (Auto)9.9. %[facility] Eosinophils % (Auto)2.7. %[facility] Basophils % (Auto)1.2. %[facility] NON-UH HIE NRBC%0.10 - 0.5 /100{WBC}[facility] Neutrophils # (Auto)8.6(H)1.8 - 7.7 10*3/[facility] Lymphocytes # (Auto)3.91.00 - 4.8 10*3/[facility] NON-[facility] HIE Monocytes # (Auto)1.4(H)0.0 - 0.8 10*3/[facility] Eosinophils # (Auto)0.40.0 - 0.45 10*3/[facility] Basophils # (Auto)0.20.0 - 0.2 10*3/[facility] CtrComment:PERFORMED BY:[facility] [facility], [place] [id number] MEDICAL DIRECTORJESUS RUBIO M.D. Specimen (Source)Anatomical Location / LateralityCollection Method / Volume Collection TimeReceived TimeBAILEY [facility] [place] Lab/Micro- Blood pgdjapjc14/07/2024 12:40 PM EST Narrative Authorizing ProviderResult TypeResult StatusWilibrado VELAZQUEZ BLOOD ORDERABLESFinal ResultPerforming OrganizationAddressCity/State/ZIP CodePhone Number [facility] [address] [place] [address], [facility] [address] [place] [address] * NON-UH HIE Blood Urea Nitrogen (01/09/2024 12:40 PM EST)ComponentValueRef RangeTest MethodAnalysis TimePerformed AtPathologist SignatureNON-[facility] Blood Urea Fsvqgqoz540 - 25 mg/dLThe [facility] CtrSpecimen (Source) Anatomical Location / LateralityCollection Method / VolumeCollection Time Received TimeBA[facility] [place] [place] Lab- Source, Tnpiwootcit39/07/2024 12:40 PM EST Narrative Authorizing ProviderResult TypeResult StatusWilibrado VELAZQUEZ BLOOD ORDERABLESFinal ResultPerforming OrganizationAddressCity/State/ZIP CodePhone Number [facility] [address] [place] [address], [facility] [address] [place] [address] * (ABNORMAL) NON-UH HIE Lipid Panel (01/09/2024 12:40 PM EST)ComponentValueRef RangeTest MethodAnalysis TimePerformed AtPathologist SignatureNON-[facility] Owqkphiqhaf757(L)140 - 200 mg/dLThe [facility] CtrComment:Chol less than 200 mg/dl low risk Chol 201-239 mg/dl borderline risk Chol 240 mg/dl and greater high riskNON-[facility] HDL Oszzoidgsej3264 - 92 mg/dLThe [facility] CtrComment:HDL CHOL ATP-III CLASSIFICATION Cardiovascular Risk HDL > or equal to 60 mg/dL LOW HDL < 40 mg/dL HIGHNON-LOV[facility]'S [facility]ITALE Triglyceride w/Rqhqkj5592 - 149 mg/dLThe [facility] CtrComment:TRIG ATP III CLASSIFICATION TRIG less than 150 mg/dL Normal TRIG 150-199 mg/dL Borderline high MQLW540-414 mg/dL High TRIG greater than 500 mg/dL Very high Standard traceable to the Center for Disease Conrtrol and Prevention (CDC) test method. NON- HIE LDL Cholesterol,Zunjkfspck801 - 100 mg/dLThe [facility] CtrComment:LDL ATP III CLASSIFICATION LDL less than 100 mg/dL Optimal LDL 100- 129 mg/dL Near or above optimal LDL 130-159 mg/dL Borderline high LDL 160-189 mg/dL High LDL greater than 189 mg/dL Very highNON-[facility]ITALE VLDL ECMATWLMZMV65 mg/dLThe [facility] CtrNON-L[facility]ITALE Chol/HDL Ratio2.9<5.0[facility] CtrComment:PERFORMED BY:[facility] [facility] [facility] HOSPITALCherylMAN[place], [place] [phone] MEDICAL DIRECTORJESUS RUBIO M.D.Specimen (Source)Anatomical Location / LateralityCollection Method / VolumeCollection TimeReceived TimeBAILEY [facility] – [place] Lab- Source, Slppoqbnumf11/07/2024 12:40 PM EST Narrative Authorizing ProviderResult TypeResult StatusWilliam S Ghanshyam DOLAB BLOOD ORDERABLESFinal ResultPerforming OrganizationAddressCity/State/ZIP CodePhone Number [facility] [address] [place] [address], [facility] [address] [place] [address] * NON-[facility] HIE Electrolytes (01/09/2024 12:40 PM EST)ComponentValueRef RangeTest MethodAnalysis TimePerformed AtPathologist SignatureNONOH[facility] HIE Gajgdl345607 - 145 mmol/[facility] HIE Potassium4.03.5 - 5.1 mmol/[facility] Rvmcgyst97245 - 107 mmol/L [facility] Carbon Apsnfok69.621.0 - 31.0 mmol/L [facility] Anion Gap12.46.0 - 15.0[facility] CtrSpecimen (Source)Anatomical Location / Laterality Collection Method / VolumeCollection TimeReceived TimeBAILEY [facility] [place] Lab- Source, Trnrpqvepzq73/07/2024 12:40 PM EST Narrative Authorizing ProviderResult TypeResult StatusWilliam S Ghanshyam DOLAB BLOOD ORDERABLESFinal ResultPerforming OrganizationAddressCity/State/ZIP CodePhone Number [facility] [address] [place] [address], [facility] [address] [place] [address] * NON-[facility] HIE Creatinine (01/09/2024 12:40 PM EST)ComponentValueRef RangeTest MethodAnalysis TimePerformed AtPathologist SignatureNONACOMA-CANONCIT[facility] HOSPITALE Creatinine0.88 0.70 - 1.30 mg/dLHolzer HospitalE ESTIMATED GFR>60.0 [facility] Creatinine Clr Calc Brtgmbmr525.16 [facility] CtrSpecimen (Source)Anatomical Location / LateralityCollection Method / VolumeCollection TimeReceived TimeBAILEY [facility] [place] [place] Lab- Source, Yxufellozet29/07/2024 12:40 PM EST Narrative Authorizing ProviderResult TypeResult Oneil VELAZQUEZ BLOOD ORDERABLESFinal ResultPerforming OrganizationAddressCity/State/ZIP CodePhone Number [facility] [address] [place] [address], [facility] [address] [place] [address] * NON-[facility] HIE Coagulation Profile (01/09/2024 12:40 PM EST)ComponentValueRef RangeTest MethodAnalysis TimePerformed AtPathologist SignatureNON-UH HIE Prothrombin Time11.89.0 - 12.9 [facility] CtrComment:A hematocrit value greater than 55% may lead to inaccurate results in coagulation testing. Patientshaving hematocrit values >55% require a special collection tube for coagulation studies. Please contact the laboratory at [phone] for redraw instructions.NON-UH HIE INR1.0[facility] CtrComment:INR Therapeutic Range A) Pre- and Peroperative OAT started two weeks before surgery. NOT HIP SURGERY: 1.5 - 2.5 HIP SURGERY: 2 - 3 B) Primary and secondary prevention of venous THROMBOSIS: 2 - 3 C) Active venous thrombosis, pulmonary embolism and prevention of recurrent venous thrombosis: 2 - 3 D)Prevention of arterial thromboembolism including patients with mechanical heart valves: 3 - 4.5NON- HIE Partial Thromboplastin Time30.925.1 - 36.5 [facility] CtrComment:A hematocrit value greater than 55% may lead to inaccurate results in coagulation testing. Patientshaving hematocrit values >55% require a special collection tube for coagulation studies. Please contact the laboratory at [phone] for redraw instructions.PERFORMED BY:[facility] [place] [place], [place] [phone] MEDICAL DIRECTORJESUS RUBIO M.D. Specimen (Source)Anatomical Location / LateralityCollection Method / Volume Collection TimeReceived [facility]- Plasma iejhixua96/07/2024 12:40 PM EST Narrative Authorizing ProviderResult TypeResult Oneil VELAZQUEZ BLOOD ORDERABLESFinal ResultPerforming OrganizationAddressCity/State/ZIP CodePhone Number [facility] [address] [place] [address], [facility] [address] [place] [address] * NON-[facility] HIE B-Type Natriuretic Peptide (01/09/2024 12:40 PM EST)ComponentValue Ref RangeTest MethodAnalysis TimePerformed AtPathologist SignatureNON-UH HIE B-Type Natriuretic Eookeyx55.05 - 100 pg/mLPremier Health [facility] Comment:PERFORMED BY:[facility] [place], [place] [phone] MEDICAL DIRECTORJESUS RUBIO M.D.Specimen (Source)Anatomical Location / LateralityCollection Method / VolumeCollection TimeReceived TimeBAILEY [facility] [place] [place] Lab- Source, Bhuxsqeabnk53/07/2024 12:40 PM EST Narrative Authorizing ProviderResult TypeResult StatusGemaria eugenia GARCIA BLOOD ORDERABLES Final ResultPerforming OrganizationAddressCity/State/ZIP CodePhone Number [facility] [address] [place] [address], [facility] [address] [place] [address] * TRANSTHORACIC ECHO (TTE) COMPLETE WITH CONTRAST (12/24/2023 3:31 PM EDT) ComponentValueRef RangeTest MethodAnalysis TimePerformed AtPathologist SignatureAV mn grad7.0mmHgSYNGOAV pk vel1.70m/sSYNGOLV Biplane EF53%SYNGOLVOT diam2.40cmSYNGOMV E/A ratio0.82SYNGOMV avg E/e' ratio11.10SYNGOLV EF65%SYNGO RVSP37.1acAeZSBBWJGNQk9.05cmSYNGOAortic Valve Area by Continuity of Peak Velocity2.75gw1HBIUXJR pk grad11.6mmHgSYNGOAortic Valve Area by Continuity of VTI3.56jk1NKEXZCB A4C EF55.4SYNGOSpecimen (Source)Anatomical Location / LateralityCollection Method / VolumeCollection TimeReceived Time12/24/2023 2:22 PM EDT Narrative SYNGO - 12/26/2023 12:18 PM EDT ?[facility] [address], [address] [place] [address] ? TRANSTHORACIC ECHOCARDIOGRAM REPORT Patient Name: ?ASHOK DOSS ? Reading Physician: ?[id number] Jose ?Faith GARCIA, ?FACC Study Date: ?12/24/2023 ? Ordering Provider: ?[id number] JOSE H ?FAITH MRN/PID: ? [id number] ? Fellow: Accession#: ?[id number] ? Nurse: ?Ivonne Gonzalez RN Date of /Age: 5 1965 / 58 years ??Batter Scaler: ?Latanya Yadav ?RDCS, RT(R), RDMS, ?RVT Gender: ?M ?Additional Staff: Height: ?187.96 cm ?Admit Date: Weight: ?129.73 kg ?Admission Status: ? Outpatient BSA / BMI: ? 2.53 m2 / 36.72 ?Department Location: ??[facility] ? kg/m2 ?[place] Study Type: ?TRANSTHORACIC ECHO (TTE) COMPLETE Diagnosis/ICD: Chest pain, unspecified-R07.9; Palpitations-R00.2 Indication: ?Chest pain Palpitations CPT Codes: ? Echo Complete w Full Doppler-71560 Patient History: Smoker: ?Current. Pertinent History: CAD, [...] Poli: ?1.10 PulmV Sys Poli: ?69.00 cm/s [id number] Jose Cuevas MD, [facility] Electronically signed on 12/26/2023 at 12:18:27 PM Final Procedure Note Jose Cuevas MD - 12/26/2023 [place] [id number], [address] [place] [address] TRANSTHORACIC ECHOCARDIOGRAM REPORT Patient Name: ASHOK SELAM Sindy Physician: Viet Truong, [facility] Study Date: 12/24/2023 Ordering Provider: Lincoln CUEVAS MRN/PID: [id number] Fellow: Nurse: Ivonne Coleman Date of /Age: 5 1965 / 58 years Batter Scaler: Samir ISBELL, RT(R),RDMS, RVT Gender: M Additional Staff: Height: 187.96 cm Admit Date: Weight: 129.73 kg Admission Status: Outpatient BSA / BMI: 2.53 m2 / 36.72 [facility] [place] Study Type: TRANSTHORACIC ECHO (TTE) COMPLETE Diagnosis/ICD: Chest pain, unspecified-R07.9; Palpitations-R00.2 Indication: Chest pain Palpitations CPT Codes: Echo Complete w Full Doppler-98511 Patient History: Smoker: Current. Pertinent History: CAD, [...] Poli: 1.10 PulmV Sys Poli: 69.00 cm/s [id number] Jose Cuevas MD, FACC Electronically signed on 12/26/2023 at 12:18:27 PM Final Authorizing ProviderResult TypeResult Lisa Cuevas [facility] ECHO PROCEDURESFinal ResultPerforming OrganizationAddressCity/State/ZIP CodePhone Number SYNGO * 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, PHYSICIAN READ (12/24/2023 3:08 PM EDT) Specimen [...] Clinical correlation is advised. Jose Cuevas MD ??[facility] Cardiology Narrative Jose Cuevas MD - [...] or pauses. ??No symptoms recorded. Authorizing ProviderResult TypeRust Lisa Cuevas [facility] CARDIAC SERVICES PROCEDURESFinal Result * STRESS TEST, [...] Cuevas 12/24/2023 5:13 PM Dictation workstation: ?? [id number] Narrative 12/24/2023 5:13 PM EDT Interpreted By: Jose Cuevas, and Darrick Abel STUDY: MYOCARDIAL PERFUSION STRESS TEST WITH LEXISCAN ?? Performing facility: [facility] at [address] [place], [place] [address] Provider: ??Jose Cuevas MD, FACC PCP: ??Colten Parra, DO Supervising provider: ??Jose Cuevas MD, FACC ?? INDICATION: Hypertension, unspecified type; Atherosclerosis of [place] coronary artery of [place] heart without angina pectoris; Current every day [...] ?? COMPARISON: Previous GXT ONLY testing completed [id number], NON DIAGNOSTIC at [facility]. ?? ACCESSION NUMBER(S): [id number] ?? ORDERING CLINICIAN: JOSE CUEVAS ?? TECHNIQUE: [...] ?? Procedure Note Jose Cuevas MD - 12/24/2023 Interpreted By: Jose Cuevas and Christo Dennis STUDY: MYOCARDIAL PERFUSION STRESS TEST WITH LEXISCAN Performing facility: [facility] at [address] Provider: Jose Cuevas MD, [facility] PCP: Colten Parra DO Supervising provider: Jose Cuevas MD, FACC INDICATION: Hypertension, unspecified type; Atherosclerosis of [place] coronary artery of [place] heart without angina pectoris; Current every day [...] 2020-RCA. COMPARISON: Previous GXT ONLY testing completed [id number], NON DIAGNOSTIC at [facility]. ACCESSION NUMBER(S): [id number] ORDERING CLINICIAN: JOSE CUEVAS TECHNIQUE: ONE DAY [...] Jose Cuevas 12/24/2023 5:13 PM Dictation workstation: [id number] Authorizing ProviderResult TypeResult Lisa Cuevas [facility] STRESS PROCEDURESFinal Result * ECG 12 lead (Clinic Performed) (12/13/2023 11:30 AM EDT)Specimen (Source) Anatomical Location / LateralityCollection Method / VolumeCollection Time Received Time Narrative Jose Cuevas MD - 12/13/2023 12:37 PM EDT Sinus rhythm, nonspecific ST-T wave changes. Rate 76. Authorizing ProviderResult TypeResult StatusScladan Cuevas MDECG ORDERABLES Final Result * ECHOCARDIOGRAM (12/23/2020) Narrative 12/23/2020 Ordered by an unspecified provider. Authorizing ProviderResult TypeResult StatusOnbase ConversionCV ECHO PROCEDURES Final Result * Echocardiogram (12/23/2020)Specimen (Source)Anatomical Location / Laterality Collection Method / VolumeCollection TimeReceived Time12/23/2020 [facility] RADIOLOGY SYSTEM - 12/23/2020 12:00 AM EDT ? [facility] [place] [address], [address] [place] [address] ? TRANSTHORACIC ECHOCARDIOGRAM REPORT Patient Name: ? ASHOK Callahan Physician: ?? [id number] Antony Pena MD, ?FACC Study Date: ? 12/23/2020 ?? Referring Physician: Sheridan STACY MRN/PID: ?[id number] ? PCP: ? Colten Parra MD Accession/Order#: [id number] Department Location: [facility] Date of : ?1965 ? Fellow: Gender: ? M ?Nurse: Admit Date: ?Batter Scaler: ? Latanya Yadav RDCS, ?RT(R), RDMS, RVT Height: ? 187.96 cm ?CC Report to: Weight: ? 119.75 kg ?Study Type: ?Echocardiogram BSA: ?2.45 m2 Diagnosis/ICD: I25.10-Atherosclerotic heart disease of [place] coronary artery ? without angina pectoris; I21.19-ST elevation (STEMI) myocardial ? infarction involving other coronary artery of inferior wall Indication: ?HTN PTCA Procedure/CPT: Echo Complete w Full Doppler-94709 Study Detail: The following Echo studies were [...] m/s ??(0.6-0.9m/s) PV Max PG: ??2.5 mmHg [id number] Antony Pena MD, FACC Electronically signed on 12/23/2020 at 11:56:24 AM Final Procedure Note Conversion, Syngo - 04/06/[address], [address], [place] [address] TRANSTHORACIC ECHOCARDIOGRAM REPORT Patient Name: ASHOK DOSS Reading Physician: [id number] Antony Edwards FACC Study Date: 12/23/2020 Referring Physician: [id number] RACHEL STACY MRN/PID: [id number] PCP: Colten Parra MD Accession/Order#: [id number] Department Location: [facility] Date of : 1965 Fellow: Gender: M Nurse: Admit Date: Batter Scaler: Latanya Boyd, RT(R), RDMS, RVT Height: 187.96 cm CC Report to: Weight: 119.75 kg Study Type: Echocardiogram BSA: 2.45 m2 Diagnosis/ICD: I25.10-Atherosclerotic heart disease of [place] coronaryartery without angina pectoris; I21.19-ST elevation (STEMI)myocardial infarction involving other coronary artery of inferiorwall Indication: HTN PTCA Procedure/CPT: Echo Complete w Full Doppler-61636 Study Detail: The following Echo studies were [...] 0.8 m/s (0.6-0.9m/s) PV Max P.5 mmHg [id number] Antony Pena MD, FACC Electronically signed on 12/23/2020 at 11:56:24 AM Final Authorizing ProviderResult TypeResult StatusSyngo ConversionCV ECHO PROCEDURES Final ResultPerforming OrganizationAddressCity/State/ZIP CodePhone Number [facility] [address] * CARDIAC STRESS TEST (12/23/2020) Narrative 12/23/2020 Ordered by an unspecified provider. Authorizing ProviderResult TypeResult StatusOnbase ConversionCV STRESS PROCEDURESFinal Result * Cardiac Stress Test (12/23/2020)Specimen (Source)Anatomical Location / LateralityCollection Method / VolumeCollection TimeReceived Time12/23/2020 Narrative [facility] RADIOLOGY SYSTEM - 12/23/2020 12:00 AM EDT ? [address], [address] [place] [address] ? Exercise Stress Test Patient Name: ? ASHOK DOSS ? Ordering Physician: ?[id number] Rachel ?Regis MD Study Date: ? 12/23/2020 ? Reading Physician: ? 56583 Antony ?PachecoMD, FACC MRN/PID: ?[id number] ? Supervising Physician: Accession/Order#: [id number] ?Referring Physician: ?? [id number] RACHEL ?STACY Date of : ?1965 ? PCP: Gender: ? M ?Fellow: Height: ? 187.96 cm ?Nurse: ? Frida Dewey RN Weight: ? 119.75 kg ?Batter Scaler: ? N/A BSA: ?2.45 m2 ?Technologist: BMI: ?33.90 kg/m2 ?Additional Staff: Age: ?55 years ? cc report to: Patient Location: [facility] ? cc report to: ?[id number] Rachel ?[place] ?Regis GARCIA Study Type: ?Cardiac Stress Test Diagnosis/ICD: I25.10-Atherosclerotic heart disease; I21.19-ST elevation (STEMI) ? myocardial infarction involving other coronary artery of inferior ? wall Indication: ?CAD, INF. [place] Procedure/CPT: Stress Test Interpretation-69837; Stress Test Supervision-01943 Falls Risk: Patient Performance: The patient exercised [...] The inadequate level of stress was achieved. [id number] Pena MD, [facility] Electronically signed on 12/23/2020 at 5:13:30 PM Final Procedure Note Conversion, Syngo - 04/06/[address], [place] [address] Exercise Stress Test Patient Name: ASHOK DOSS Ordering Physician: Lisa Stacy MD Study Date: 12/23/2020 Reading Physician: King Pena MD,[facility] MRN/PID: [id number] Supervising Physician: Accession/Order#: [id number] Referring Physician: LISA STACY Date of : 1965 PCP: Gender: M Fellow: Height: 187.96 cm Nurse: Mairbel GOODMAN Weight: 119.75 kg Batter Scaler: N/A BSA: 2.45 m2 Technologist: BMI: 33.90 kg/m2 Additional Staff: Age: 55 years cc report to: Patient Location: [facility] cc report to: Lisa Stacy MD Study Type: Cardiac Stress Test Diagnosis/ICD: I25.10-Atherosclerotic heart disease; I21.19-ST elevation(STEMI) myocardial infarction involving other coronary artery ofinferior wall Indication: CAD, INF. [place] Procedure/CPT: Stress Test Interpretation-63674; Stress TestSupervision-57842 Falls Risk: Patient Performance: The patient exercised [...] The inadequate level of stress was achieved. [id number] Antony Pena MD, [facility] Electronically signed on 12/23/2020 at 5:13:30 PM Final Authorizing ProviderResult TypeResult StatusSyngo ConversionCV STRESS PROCEDURES Final ResultPerforming OrganizationAddressCity/State/ZIP CodePhone Number [facility] [address] * ELECTROCARDIOGRAM RHYTHM STRIP (11/29/2020) Only the most recent of2 resultswithin the time period is included. Narrative 11/29/2020 Ordered by an unspecified provider. Authorizing ProviderResult TypeResult StatusOnbase ConversionECG ORDERABLESFinal Result * (ABNORMAL) Troponin I (11/19/2020 9:03 PM EDT) Only the most recent of5 resultswithin the time period is included. ComponentValueRef RangeTest MethodAnalysis TimePerformed AtPathologist Signature Troponin I10.69(HH)0.00 - 0.03 ng/mLSEBASTIAN RIVER MED[facility] LABComment: LESS THAN 0.04 NG/ML: ?? NEGATIVE [...] is performed using different testing methodology at [facility] than at other [facility]. Direct result comparisons should only be made within the same method. 21:43 11/19/2020. ??Called- RB to Shelia GOODMAN , 11/19/2020 21:43 Specimen (Source)Anatomical Location / LateralityCollection Method / Volume Collection TimeReceived Time11/19/2020 9:03 PM EDT11/19/2020 9:06 PM EDT Narrative Authorizing ProviderResult TypeResult StatusRachel GARCIA BLOOD ORDERABLES Final ResultPerforming OrganizationAddressCity/State/ZIP CodePhone Number [facility] * Heparin Assay (11/19/2020 2:38 PM EDT) Only the most recent of3 resultswithin the time period is included. ComponentValueRef RangeTest MethodAnalysis TimePerformed AtPathologist Signature HEPARIN UNFRACTIONATED0.2IU/mLSEBASTIAN RIVER MEDICAL CENTER LABComment: The therapeutic reference range for UFH may be either 0.3-0.6 IU/mL or 0.3-0.7 IU/mL based on the clinical setting for anticoagulant therapy and the associated nomogram used. For heparin dosing guidelines based on clinical scenario and Heparin Assay results, please refer to local ?? Pharmacy and the [facility] Guidelines for Anticoagulation therapy available on the [facility] intranet at: [email or web address] Specimen (Source)Anatomical Location / LateralityCollection Method / Volume Collection TimeReceived Time11/19/2020 2:38 PM EDT11/19/2020 2:40 PM EDT Narrative Authorizing ProviderResult TypeResult StatusRachel GARCIA BLOOD ORDERABLES Final ResultPerforming OrganizationAddressCity/State/ZIP CodePhone Number [facility] * (ABNORMAL) CBC (11/19/2020 5:23 AM EDT) Only the most recent of2 resultswithin the time period is included. ComponentValueRef RangeTest MethodAnalysis TimePerformed AtPathologist Signature WBC22.9(H)4.4 - 11.3 x10E9/[facility] LABRBC4.42(L)4.50 - 5.90 x10E12/[facility] CGKPazplejhps93.513.5 - 17.5 g/dLSEBASTIAN RIVER MEDICAL CENTER YTKQbvfgtbipq31.241.0 - 52.0 %[facility] SWDZFM4634 - 100 fL [facility] PUQWPBM96.832.0 - 36.0 g/dLSEBASTIAN RIVER MEDICAL CENTER LAB Yaobstend061387 - 450 x10E9/[facility] RMFLGP27.311.5 - 14.5 %[facility] LABSpecimen (Source)Anatomical Location / LateralityCollection Method / VolumeCollection TimeReceived Time11/19/2020 5:23 AM EDT11/19/2020 5:28 AM EDT Narrative Authorizing ProviderResult TypeResult StatusLeia Stearns APRN-CNPLAB BLOOD ORDERABLESFinal ResultPerforming OrganizationAddressCity/State/ZIP CodePhone Number [facility] * Magnesium (11/19/2020 5:23 AM EDT)ComponentValueRef RangeTest MethodAnalysis TimePerformed AtPathologist SignatureMagnesium1.801.60 - 2.40 mg/dLSEBASTIAN RIVER MEDICAL CENTER LABSpecimen (Source)Anatomical Location / LateralityCollection Method / VolumeCollection TimeReceived Time11/19/2020 5:23 AM EDT11/19/2020 5:28 AM EDT Narrative Authorizing ProviderResult TypeResult StatusLeia Stearns INSURANCE AGENCY OWNER-CNPLAB BLOOD ORDERABLESFinal ResultPerforming OrganizationAddressCity/State/ZIP CodePhone Number [facility] * (ABNORMAL) Basic Metabolic Panel (11/19/2020 5:23 AM EDT)ComponentValueRef RangeTest MethodAnalysis TimePerformed AtPathologist AaqvbukhyHsemmyj577(H)74 - 99 mg/dLSEBASTIAN RIVER MEDICAL [facility]ENTER YLWQezqua216841 - 145 mmol/[facility] LABPotassium3.83.5 - 5.3 mmol/[facility] RFOQaynusjw222(H) 98 - 107 mmol/[facility] FINFcavvvjzegm4875 - 32 mmol/[facility] LABAnion Iri8266 - 20 mmol/[facility] LABUrea Frmxrgik300 - 23 mg/dLSEBASTIAN RIVER [facility] LABCreatinine0.830.50 - 1.30 mg/dL [facility] LABGLOMERULAR FILTRATION RATE-NON >60>60 mL/min/1.86e9DPGMCWSEBASTIAN RIVER MEDICAL CENTER LABGLOMERULAR FILTRATION RATE->60>60 mL/min/1.96a5XKANFFSEBASTIAN RIVER MEDICAL CENTER LABComment: CALCULATIONS OF ESTIMATED GFR ARE PERFORMED USING THE MDRD STUDY EQUATION FOR THE IDMS-TRACEABLE CREATININE METHODS. CLIN CHEM 2007;53:766-72 Calcium8.4(L)8.6 - 10.3 mg/dLSEBASTIAN RIVER MEDICAL CENTER LABSpecimen (Source) Anatomical Location / LateralityCollection Method / VolumeCollection Time Received Time11/19/2020 5:23 AM EDT11/19/2020 5:28 AM EDT Narrative Authorizing ProviderResult TypeResult StatusLeia Stearns APRN-[facility] BLOOD ORDERABLESFinal ResultPerforming OrganizationAddressCity/State/ZIP CodePhone Number [facility] * aPTT (11/19/2020 12:53 AM EDT)ComponentValueRef RangeTest MethodAnalysis Time Performed AtPathologist WgtnqswgcaBBL8526 - 35 [facility] Comment: ??THE APTT IS NO LONGER USED FOR MONITORING ??UNFRACTIONATED HEPARIN THERAPY. ??FOR MONITORING HEPARIN THERAPY, ??USE THE HEPARIN ASSAY. Specimen (Source)Anatomical Location / LateralityCollection Method / Volume Collection TimeReceived Time11/19/2020 12:53 AM EDT11/19/2020 1:00 AM EDT Narrative Authorizing ProviderResult TypeResult StatusJerry Bronson [facility] BLOOD ORDERABLESFinal ResultPerforming OrganizationAddressCity/State/ZIP CodePhone Number [facility] * Protime-INR (11/19/2020 12:53 AM EDT)ComponentValueRef RangeTest Method Analysis TimePerformed AtPathologist NxvswjubhHbfiwei16.810.1 - 13.3 [facility] LABINR1.10.9 - 1.1[facility] LABSpecimen (Source) Anatomical Location / LateralityCollection Method / VolumeCollection Time Received Time11/19/2020 12:53 AM EDT11/19/2020 1:00 AM EDT Narrative Authorizing ProviderResult TypeResult StatusJerry GARCIA BLOOD ORDERABLESFinal ResultPerforming OrganizationAddBarnes-[facility]/State/ZIP CodePhone Number [facility] * (ABNORMAL) ACTIVATED CLOTTING TIME LOW (11/18/2020 7:41 PM EDT)ComponentValue Ref RangeTest MethodAnalysis TimePerformed AtPathologist SignatureActivated Clotting Time POC Low Egxfo019(H)89 - 169 SECONDSSEBASTIAN RIVER MED[facility] LAB Comment: Note new reference range as of 06/06/2018. Target ACT range will vary based on the patient population, clinical status, and surgical intervention occurring. Specimen (Source)Anatomical Location / LateralityCollection Method / Volume Collection TimeReceived Time11/18/2020 7:41 PM EDT11/21/2020 6:18 AM EDT Narrative Authorizing ProviderResult TypeResult StatusRachel GARCIA POINT OF CARE TEST DOCKED DEVICE UNSOLICITED RESULTSFinal ResultPerforming OrganizationAddress City/State/ZIP CodePhone Number [facility] * (ABNORMAL) ACTIVATED CLOTTING TIME LOW (11/18/2020 7:24 PM EDT)ComponentValue Ref RangeTest MethodAnalysis TimePerformed AtPathologist SignatureActivated Clotting Time POC Low Hlmlv498(H)89 - 169 SECONDSSEBASTIAN RIVER MED[facility] LAB Comment: Note new reference range as of 06/06/2018. Target ACT range will vary based on the patient population, clinical status, and surgical intervention occurring. Specimen (Source)Anatomical Location / LateralityCollection Method / Volume Collection TimeReceived Time11/18/2020 7:24 PM EDT11/21/2020 6:18 AM EDT Narrative Authorizing ProviderResult TypeResult StatusGemaria eugenia GARCIA POINT OF CARE TEST DOCKED DEVICE UNSOLICITED RESULTSFinal ResultPerforming OrganizationAddress City/State/ZIP CodePhone Number [facility] * XR CHEST 1 VIEW (11/18/2020 7:19 PM EDT)Anatomical RegionLateralityModality ChestRadiographic ImagingSpecimen (Source)Anatomical Location / Laterality Collection Method / VolumeCollection TimeReceived Time Narrative 11/18/2020 7:40 PM EDT STUDY: Chest Radiograph; ??11/18/2020 7:22 PM. INDICATION: Concern for dissection, chest pain. COMPARISON: None Available. ACCESSION NUMBER(S): [id number] ORDERING CLINICIAN: JERRY BRONSON MD TECHNIQUE: ??Frontal [...] chest pain. COMPARISON: None Available. ACCESSION NUMBER(S): [id number] ORDERING CLINICIAN: JERRY BRONSON MD TECHNIQUE: Frontal chest was obtained at 1919 hours. FINDINGS: CARDIOMEDIASTINAL SILHOUETTE: Cardiomediastinal silhouette is normal in size and configuration. LUNGS: Lungs are clear. ABDOMEN: No remarkable upper abdominal findings. BONES: No acute osseous changes. IMPRESSION: No acute cardiopulmonary process seen. Signed by Kaden Griffiths MD Authorizing ProviderResult TypeResult StatusJotoby Bronson MDIMG XR PROCEDURES Final Result * Sars-CoV-2 PCR, Screen Asymptomatic (11/18/2020 7:18 PM EDT)ComponentValueRef RangeTest MethodAnalysis TimePerformed AtPathologist FzzabwuwjNREO-JcK-7 ResultNOT DETECTEDNot [facility] LABComment: . This test has received FDA Emergency Use Authorization (EUA) and has been verified by [facility]. This test is only authorized for the duration of time that circumstances exist to justify the authorization of the emergency use of in vitro diagnostic tests for the detection of SARS-CoV-2 virus and/or diagnosis of COVID-19 infection under section 564(b)(1) of the Act, 21 U.S.C. 360bbb-3(b)(1), unless the authorization is terminated or revoked sooner. [facility] is certified under CLIA-88 as qualified to perform high complexity testing. Testing is performed in the [facility] laboratory located at [address] [place] [address]. SARS-CoV-2/Flu/RSV Multiplex Test: Fact sheet for providers: https://www.fda.gov/media/151253/download Fact sheet for patients: https://www.fda.gov/media/236387/download Specimen (Source)Anatomical Location / LateralityCollection Method / Volume Collection TimeReceived Time11/18/2020 7:18 PM EDT11/18/2020 7:18 PM EDT Narrative Authorizing ProviderResult TypeResult StatusJotoby GARCIA MOLECULAR DIAGNOSTICS ORDERABLESFinal ResultPerforming OrganizationAddressCity/State/ZIP CodePhone Number [facility] * B-Type Natriuretic Peptide (11/18/2020 7:17 PM EDT)ComponentValueRef RangeTest MethodAnalysis TimePerformed AtPathologist OcnzajyguFQK074 - 99 pg/mLSEBASTIAN RIVER MEDICAL CENTER LABComment: . <100 pg/mL - Heart failure unlikely 100-299 pg/mL - Intermediate probability of acute heart . ? failure exacerbation. Correlate with clinical . ? context and patient history. >=300 pg/mL - Heart Failure likely. Correlate with clinical . ? context and patient history. BNP testing is performed using different testing methodology at [facility] than at other [facility]. Direct result comparisons should only be made within the same method. Specimen (Source)Anatomical Location / LateralityCollection Method / Volume Collection TimeReceived Time11/18/2020 7:17 PM EDT11/18/2020 7:17 PM EDT Narrative Authorizing ProviderResult TypeResult StatusJerry GARCIA BLOOD ORDERABLESFinal ResultPerforming OrganizationAddressCity/State/ZIP CodePhone Number [facility] * (ABNORMAL) Comprehensive Metabolic Panel (11/18/2020 7:17 PM EDT)Component ValueRef RangeTest MethodAnalysis TimePerformed AtPathologist SignatureGlucose 113(H)74 - 99 mg/dLSEBASTIAN RIVER MEDICAL CENTER OMYNqbyhr229462 - 145 mmol/[facility] LABPotassium3.83.5 - 5.3 mmol/[facility] LAB Vboqrnfa02521 - 107 mmol/[facility] VZSUsyxchemcdf5553 - 32 mmol/L [facility] LABAnion Hon3347 - 20 mmol/[facility] Urea Nhrrfawi114 - 23 mg/dLSEBASTIAN RIVER MEDICAL CENTER LABCreatinine1.120.50 - 1.30 mg/dLSEBASTIAN RIVER MEDICAL CENTER LABGLOMERULAR FILTRATION RATE-NON >60>60 mL/min/1.26g0RJTUIGSEBASTIAN RIVER MEDICAL CENTER LABGLOMERULAR FILTRATION RATE- >60>60 mL/min/1.22s3JPFUUQSEBASTIAN RIVER MEDICAL CENTER LABComment: CALCULATIONS OF ESTIMATED GFR ARE PERFORMED USING THE MDRD STUDY EQUATION FOR THE IDMS-TRACEABLE CREATININE METHODS. CLIN CHEM 2007;53:766-72 Calcium9.48.6 - 10.3 mg/dLSEBASTIAN RIVER MEDICAL CENTER LABAlbumin4.23.4 - 5.0 g/dL [facility] LABAlkaline Dcjzsugxmmx7046 - 120 U/[facility] LABTotal Protein7.06.4 - 8.2 g/dLSEBASTIAN RIVER MEDICAL [facility]ENTER AOVEDB694 - 39 U/[facility] LABTotal Bilirubin0.30.0 - 1.2 mg/dLSEBASTIAN RIVER MEDICAL [facility]ENTER LABALT (SGPT)1910 - 52 U/[facility] LABComment: Patients treated with Sulfasalazine may generate falsely decreased results for ALT. Specimen (Source)Anatomical Location / LateralityCollection Method / Volume Collection TimeReceived Time11/18/2020 7:17 PM EDT11/18/2020 7:17 PM EDT Narrative Authorizing ProviderResult TypeResult StatusJotoby Bronson MDLAB BLOOD ORDERABLESFinal ResultPerforming OrganizationAddressCity/State/ZIP CodePhone Number [facility] * OUTSIDE IMAGING SCAN (11/18/2020)Anatomical RegionLateralityModalityOther Narrative 11/18/2020 Ordered by an unspecified provider. Authorizing ProviderResult TypeResult StatusOnbase ConversionOUTSIDE SCANFinal Result * Adult Cath (11/18/2020)Specimen (Source)Anatomical Location / Laterality Collection Method / VolumeCollection TimeReceived Time11/18/2020 Narrative [facility] - 11/18/2020 12:00 AM EDT [facility], [facility] ? [address] [place] [address] ? [facility] [address] Cardiovascular Catheterization Report Patient Name: ? Ashok Doss Performing Physician: [id number] Rachel Stacy MD Study Date: ? 11/18/2020 ?Verifying Physician: ??[id number] Rachel Stacy MD MRN/PID: ?[id number] ? Pharmacy Ancillary: Accession/Order#: [id number] ?Referring Physician: ??[id number] José Miguel Posey MD Date of : ?1965 ? Referring Physician: Gender: ? M ?Referring Physician: ??[id number] Rachel Stacy MD Study: Left Heart Catheterization [...] a modified Seldinger technique. Subsequently a 6 Chinese sheath was placed in the right femoral [...] less than 10% distal stenosis. 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 [...] Left Heart Cath (visualization of coronaries) and LV-93158; Moderate Sedation Services initial 15 minutes patient >5 years-30173; Moderate Sedation Services 1st additional 15 minutes patient >5years-81772; Moderate Sedation Services 2nd additional 15 minutes patient >5 years-21081; Angiography, Extremity,uni,S&I (PER)-15926; Angioplasty, single Left Anterior Descending major Artery/branch (PCI)-80588.LD ICD 10 Codes: I21.02-ST elevation (STEMI) myocardial infarction involving left anterior descending coronary artery [id number] Rachel Stacy MD Performing Physician [place]: [id number] José Miguel Posey MD cc Report to: [id number] Rachel Stacy MD Final Procedure Note Conversion, Syngo - 02/03/2023 [facility] [address] [place] [address] Cardiovascular Catheterization Report Patient Name: Ashok Doss Performing Physician: Sheridan Stacy Study Date: 11/18/2020 Verifying Physician: Sheridan Patton MRN/PID: [id number] Pharmacy Ancillary: Accession/Order#: [id number] Referring Physician: [id number] José Miguel Garrett Date of : 1965 Referring Physician: Gender: M Referring Physician: Sheridan Rachel Pooja Study: Left Heart Catheterization Indications: Ashok Doss [...] and lessthan 10% distal stenosis. 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 First [...] Loss: Estimated blood loss during the procedure iax73gp mls. Specimens Removed: Number of specimen(s) removed: [...] Left Heart Cath (visualization of coronaries) and LV-47014; ModerateSedation Services initial 15 minutes patient >5 years-60661; ModerateSedation Services 1st additional 15 minutes patient >5 years-78089;Moderate Sedation Services 2nd additional 15 minutes patient >5years-96530; Angiography, Extremity,uni,S&I (PER)-98476; Angioplasty,single Left Anterior Descending major Artery/branch (PCI)-67587.LD ICD 10 Codes: I21.02-ST elevation (STEMI) myocardial infarction involving left anterior descending coronary artery [id number] Rachel Stacy MD Performing Physician [place]: [id number] José Miguel Posey MD cc Report to: [id number] Rachel Stacy MD Final Authorizing ProviderResult TypeResult StatusSyngo ConversionCV CARDIAC CATH PROCEDURESFinal ResultPerforming OrganizationAddressCity/State/ZIP CodePhone Number [facility] [address] Visit Diagnoses DiagnosisStart Date ST elevation (STEMI) myocardial infarction involving other coronary artery of inferior wall (Multi) 11/18/2020 Atherosclerotic heart disease of [place] coronary artery without angina pectoris 12/23/2020 Primary hypertension Unspecified essential hypertension 04/01/2023 Atherosclerosis of [place] coronary artery of [place] heart without angina pectoris 08/28/2023 History of PTCA Postsurgical percutaneous transluminal coronary angioplasty status 08/28/2023 Mixed hyperlipidemia 08/28/2023 Primary hypertension Unspecified essential hypertension 08/28/2023 Current every day smoker 08/28/2023 BMI 35.0-35.9,adult 08/28/2023 Hypertension, unspecified type 12/13/2023 Atherosclerosis of [place] coronary artery of [place] heart without angina pectoris 12/13/2023 Current every [...] unspecified type 12/24/2023 Atherosclerosis of [place] coronary artery of [place] heart without angina pectoris 12/24/2023 Current every [...] unspecified type 12/24/2023 Atherosclerosis of [place] coronary artery of [place] heart without angina pectoris 12/24/2023 Current every [...] essential hypertension 12/24/2023 Atherosclerosis of [place] coronary artery of [place] heart with stable angina pectoris 12/24/2023 Current every day smoker 12/24/2023 Hypertension, unspecified type 12/24/2023 Atherosclerosis of [place] coronary artery of [place] heart without angina pectoris 12/24/2023 Current every [...] 01/06/2024 Coronary artery disease involving [place] coronary artery of [place] heart with unstable angina pectoris (Multi) 01/06/2024 [...] unspecified type 02/21/2024 Atherosclerosis of [place] coronary artery of [place] heart without angina pectoris 02/21/2024 Other hyperlipidemia 02/21/2024 Sleep apnea with use of continuous positive airway pressure (CPAP) 02/21/[address] elevation myocardial infarction (STEMI) 02/21/2024 BMI 35.0-35.9,adult 02/21/2024 Primary hypertension Unspecified essential hypertension 03/08/2024 Palpitations 03/08/2024 Primary hypertension Unspecified essential hypertension 03/16/2024 Primary hypertension Unspecified essential hypertension 03/24/2024 Mixed hyperlipidemia 03/24/2024 Shortness of breath 03/24/2024 Palpitations 03/24/2024 Atherosclerosis of [place] coronary artery of [place] heart without angina pectoris 08/21/2024 Medication course changed 08/21/2024 Primary hypertension Unspecified essential hypertension 08/21/2024 Mixed hyperlipidemia 08/21/2024 Palpitations 08/21/2024 Current every day smoker 08/21/2024 Sleep apnea with use of continuous positive airway pressure (CPAP) 08/21/2024 BMI 35.0-35.9,adult 08/21/2024 Primary hypertension Unspecified essential hypertension 01/26/2025 Atherosclerosis of [place] coronary artery of [place] heart without angina pectoris 02/22/2025 History of PTCA Postsurgical percutaneous transluminal coronary angioplasty status 02/22/[address] elevation myocardial infarction (STEMI) 02/22/2025 Primary hypertension Unspecified essential hypertension 02/22/2025 Mixed hyperlipidemia 02/22/2025 Current every day smoker 02/22/2025 BMI 36.0-36.9,adult 02/22/2025 Sleep apnea with use of continuous positive airway pressure (CPAP) 02/22/2025 Care Teams Team MemberRelationshipSpecialtyStart DateEnd Date Colten Parra DO PCP - Waabldc51/22/21
--- OUTSIDE RECORDS SUMMARY | 2025-02-23 09:25 | XMS_ITS | Encounter Summary ---
Author Organization [facility] Address [address] [place] [address] Phone Care Team Providers Care Aviation Technician Name Role Phone Colten Parra Primary Care Provider [phone] Encounter Details DateTypeDepartmentCare Team (Latest Contact Info)Sineuucysjj40/22/2025Travel Social History Tobacco UseTypesPacks/DayYears UsedDateSmoking Tobacco: Every DayCigarettes Smokeless Tobacco: NeverAlcohol UseStandard Drinks/WeekCommentsYes0 (1 standard drink = 0.6 oz pure alcohol)very littleSex and Gender InformationValueDate RecordedSex Assigned at GvmouHbzr22/09/2024 1:53 PM EDTLegal XvzLivh05/26/2022 9:05 AM ESTGender MnlrksndQall27/09/2024 1:53 PM EDTSexual OrientationStraight 12/11/2023 1:53 PM EDTdocumented as of this encounter Functional Status * Communicable Disease ScreeningQuestionAnswerDate of AssessmentAuthorDo you have any of the following new or worsening symptoms?None of these02/22/2025 10:41 AM January Guillaume documented as of this encounter Plan of Treatment DateTypeDepartmentCare Team (Latest Contact Info)Bvoejpcqdpf08/01/2026 10:45 AM EDTOffice Visit [facility] [address] [facility] [address] [place] [address] Rachel Stacy MD [address] [facility] [address] [place] [address] documented as of this encounter Visit Diagnoses Not on filedocumented in this encounter Additional Health Concerns AssessmentNoted TimeA fall risk assessment has been completed for the patient 02/22/2025 11:11 AM ESTdocumented as of this encounter Care Teams Team MemberRelationshipSpecialtyStart DateEnd Date Colten Parra DO PCP - Rskiifh55/22/21documented as of this encounter
--- OUTSIDE RECORDS SUMMARY | 2025-02-23 09:25 | XMS_ITS | Clinical Summary ---
Author Organization [facility] Address [address] [place] [id number] Care Team Providers Care Mimeograph Operator Name Role Phone Unavailable Primary Care [...] drink = 0.6 oz pure alcohol)PHQ-2AnswerDate RecordedPHQ-2 adpqr224/2022Sex and Gender InformationValueDate RecordedSex Assigned at HbakiMeyt00/14/2022 10:20 AM ESTLegal ElsHifx6604/12/2021 11:49 AM ESTGender EvabvilqLjsd93/14/2022 10:20 AM ESTSexual LlbhhnequvbFgkfopyu86/14/2022 10:20 AM EST Last Filed Vital Signs Vital SignReadingTime TakenCommentsBlood Ngupttrf745/7104 10:10 AM EDT Ggyov0693/05/2022 10:10 AM EDTTemperature--Respiratory Atmh421606/06/2021 10:10 AM EDTOxygen Syjpyvpzos49%06/06/2021 10:10 AM EDTInhaled Oxygen Concentration-- Kpokrh667.8 kg (257 lb 8 oz)06/06/2021 10:10 AM VTUGtnuzw919 cm (6' 2 ) 06/06/2021 10:10 AM EDTBody Mass Index33.0604 10:10 AM EDT Plan of Treatment Health MaintenanceDue DateLast DoneCommentsAnxiety Bretfvhbb66/07/1984Depression Xxvgaaczh39/07/1984HIV Btxbivrpa05/07/1984Hepatitis C Bqdrbucif68/07/1984 DTaP,Tdap,Td Vaccine (1 - Tdap)1984CT Uatgoisepieb53/07/2011Cologuard (FIT-DNA)07/08/20103144Cgvoetduanx60/07/2011Colorectal Cancer Xmwoxfzbq58/07/2011 Fecal Occult Blood2010Prostate Cancer Screening Qfejalqqeb19/07/2011 Juinanxnigled08/07/2011Pneumococcal Vaccine: 50+ (1 of 1 - PCV)07/09/2015 Shingrix Vaccine (1 of 2)07/09/2015Diabetes Zpetmvckf27/09/351038/11/2020, 05/03/2020, 11/02/2019, Additional history existsCovid-19 Vaccine (1 - 2024- season)2024Influenza Vaccine (#1)509/03/2019, 01/21/2019, 01/21/2019, Additional history existsLipid Pgtcyrolx89, 11/05/2018RSV Vaccine (1 - 1-dose 75+ series)2040 Insurance MemberSubscriberPlan / Payer (Effective 2021-Present)Name:Dale Belcher Relation to Subscriber:SelfName:Dale Belcher Payer ID:[id number] (NAIC) Type:PPO Address: [facility] [id number] [place] [id number]
--- OUTSIDE RECORDS SUMMARY | 2025-02-23 09:25 | XMS_ITS | Clinical Summary ---
Author Organization [employer] tem Address [id number] [address] [place] [address] Care Team Providers Care Senior Label Specialist Name Role Phone ElisaColten figueroa Raymond CARR Primary Care Provider [phone] Allergies Active AllergyReactionsCriticalityNoted DateCommentsAmoxicillinVomiting 08/21/2023FentanylGI Bdmhtflxjlw88/20/2024 Headaches, vomiting Isosorbide KivxxglrajoJcjzbuohZxfd55/04/7513CqegglxnptQdvbdtokpuzxQlw38/19/2024 Medications MedicationSigDispense QuantityRefillsLast FilledStart DateEnd DateStatus lisinopril-hydroCHLOROthiazide [...] with aura and without status migrainosus, not fcaphvswfli72/10/2025lass 2 severe obesity due to excess calories with serious comorbidity and body mass index (BMI) of36.0 to 36.9 in adult01/11/2025Enlarged dgneinhl10/19/2024Lower urinary tract symptoms (LUTS) 07/09/2023enign prostatic hyperplasia with urinary dvjsovbydrp07/02/2024 Overview (11/18/2024): Had DVT on affected leg [...] or hydronephrosis. Plan: Renal bladder ultrasound. Cystoscopy [facility] bladder solution. CMG/flow Urine forculture. Assessment [...] 04/02/2023History of ST elevation myocardial infarction (STEMI)04/02/2023 Dkhkacrldzlx18/30/2024hronic hip pain, left12/14/20220759Lhxtca81/13/2023Polyp of transverse colon12/07/2022 Overview (12/07/2022): Multiple Positive colorectal cancer screening using Cologuard test11/16/2022cute deep vein thrombosis (DVT) of calf muscle vein of right lower miiweokmp93/20/2023 Klniuett26/20/2023Right leg pain03/24/2022Essential eevgasqlpsjy85/21/2023 Cellulitis of right leg03/24/2022cute upper respiratory llayezvay68/14/2019 06/08/2022Nicotine dependence, cigarettes, knwwrtsacvqof81 Resolved Problems ProblemNoted DateDiagnosed DateResolved DateObesity, xumqte33 Situational qlhdsewhwm74 Encounters DateTypeDepartmentCare OlrqRpxxpifvgsp04/10/2025 12:24 PM EST - 02/10/2025 11:59 PM ESTHospital Encounter [facility] - [facility] Imaging [address] [place] [address] Smoker Discharge Disposition: Home02/08/20251605Hfwwge62/11/2025Results Follow-Up [facility] Internal Medicine - Family Medicine [address] [place] [address] Colten Parra, Lipid profile, Valproic acid, depakane, Comprehensive metabolic panel, Additional followed-up results: 11:30 AM ESTOffice Visit [facility] Internal Medicine - Family Medicine [address] [place] [address] Colten Parra, Essential hypertension (Primary Dx); Mixed hyperlipidemia; Migraine with aura and without status migrainosus, not intractable; Smoker; Class 2 severe obesity due to excess calories with serious comorbidity and body mass index (BMI) of36.0 to 36.9 in adult01/11/20259348Cloroe47/22/2025 11:30 AM EDT Office Visit [facility] General Surgery [address] [place] [address] Tosin Sotelo, SR 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 Rectal pain (Primary Dx)12/23/20245808Mkcouj22/21/0391Cnpdeg06/13/2025Refill [facility] Internal Medicine - Family Medicine [address] [place] [address] Berna Díaz CMA Migraine, unspecified, not intractable, without status nxpmetfndcp68/07/2025 1:00 PM EDTOffice Visit [facility] Internal Medicine - [facility] [address] [facility] [address] Colten Parra, Anal pain (Primary Dx)12/08/2024Travelfrom Last 3 Months Immunizations ImmunizationAdministration DatesNext DueInfluenza, Im Trivalent Preservative 11/03/2019Influenza, Injectable, Nislgdjqqjxp83/20/2019,01/02/2019Influenza, Injectable, quadrivalent (PF)12/02/2016 Family History Medical HistoryRelationNameCommentsHeart failureFatherdied at age 90No Known ProblemsHalf BrothermaternalSclerodermaMotherdied in her 80'sNo Known Problems Paternal Grandfatherdied at age 98 after slipping and falling and hitting head in bathroomRelationNameStatusCommentsFatherDeceasedHalf BrotherAliveMother DeceasedPaternal GrandfatherSisterAlive Social History Tobacco UseTypesPacks/DayYears UsedDateSmoking Tobacco: Every MupLjjmbwqojw756 Started: 1978Smokeless Tobacco: Never Tobacco Cessation:Ready to Q uit: Not Asked; Counseling Given: Not Answered Alcohol UseStandard Drinks/WeekCommentsYes0 (1 standard drink = 0.6 oz pure alcohol)rarelyPHQ-2AnswerDate RecordedTotal Gqhhj28403/13/2024UDIT-CAnswerDate RecordedQ1: How often do you have a drink containing alcohol?Monthly or less 12/23/2024Q2: How many drinks containing alcohol do you have on a typical day when you are drinking?1 or Q3: How often do you have six or more drinks on one occasion?Never12/23/2024hildcareAnswerDate RecordedDo problems getting child and family services specialist make it difficult for you to work or study?No01/11/2025 EmploymentAnswerDate ElgflbnoAefthscxlzBcrjkas46/12/2019Hunger ScreeningAnswer Date RecordedWithin the past 12 months we worried whether our food would run out before we got money to buy more.Never True01/11/2025Within the past 12 months the food we bought just didn't last and we didn't have money to get more.Never True01/11/2025Purpose - LifeAnswerDate RecordedPurpose and direction in life Mammnxg7804/14/2020ex and Gender InformationValueDate RecordedSex Assigned at BirthNot on fileLegal SlyEmrm0810/07/2014 12:13 PM EDTGender IdentityNot on file Sexual OrientationNot on file Last Filed Vital Signs Vital SignReadingTime TakenCommentsBlood Fwfvdimt41/6001/11/2025 11:35 AM EST Abdll065401/11/2025 11:35 AM DXNCbdrwtxjijk55.4 ??C (97.5 ??F)01/11/2025 11:35 AM ESTRespiratory Dvka491103/13/2024 11:35 AM ESTOxygen Bmylmgnfik63%01/11/2025 11:35 AM ESTInhaled Oxygen Concentration--Mwxaxa716.4 kg (283 lb)01/11/2025 11:35 AM FSCInidcc973 cm (6' 2.02 )01/11/2025 11:35 AM ESTBody Mass Index36.32103/13/2024 11:35 AM EST Plan of Treatment DateTypeDepartmentCare Team (Latest Contact Info)Zuzroyijhnz02/11/2026 9:30 AM EDTOffice Visit [facility] Internal Medicine - Family Medicine [address] [place] [phone] Colten Parra, DO [address] [place] [address] 10/06/2025 1:15 PM EDTOffice Visit [facility] [address] [place] [address] [phone] Сергей Lucas MD [address] [place] [address] Health MaintenanceDue DateLast DoneCommentsStatin Use: Aahqgtnfetkaqi05/07/1966 Tobacco Purgltaglt67/07/1966Zoster (Shingles) Vaccine (1 of 2)07/09/2015 Influenza Xyjjpgb94/01/50930311/03/2019, 01/21/2019, 01/02/2019, Additional history existsDTaP,Tdap and Td Vaccines (1 - Tdap)03/04/2025Postponed from 1984 (Patient Refused)Colon Cancer Screening 3 Year Mjvmtvhnt64/20/2026 06/21/2022dult BMI Follow Up [facility] BMI Screening Depression Vydxwoytg91Tobacco Screening Goals GoalPatient Goal TypeAssociated ProblemsRecent ProgressPatient-Stated?Author safe discharge ot home Simran Velasquez RN Note: Evaluation of progress towards goal: safe transition to home with support of pt's and resumption with outpatient PT. Medical Devices Not on file Procedures Procedure NamePriorityDate/TimeAssociated DiagnosisCommentsCT LOW DOSE LUNG UOKDMVHZRQzbrhon90/10/2025 12:40 PM EST Smoker CBC (NO DIFF)Yarndxu9301/11/2025 12:14 PM EST Migraine with aura and without status migrainosus, not intractable COMPREHENSIVE METABOLIC GZCPSFupwsmn04/10/2025 12:14 PM EST Essential hypertension VALPROIC ACID ZWSWENHBLkupnrf68/10/2025 12:14 PM EST Migraine with aura and without status migrainosus, not intractable LIPID NLXRBGRTwtmkbe66/10/2025 12:14 PM EST Mixed hyperlipidemia AMB REFERRAL TO GENERAL VSFGMIBRlmvqsw82/22/2025 12:46 PM EDTCOLOGUARD NON-RLEUUGXDUVwcnwin84/20/2023 8:00 AM EDT Encounter for colorectal cancer [...] detection for pulmonary nodules was performed utilizing [employer] software. FINDINGS: Diagnostic quality: Satisfactory Lung nodules: [...] aideddetection for pulmonary nodules was performed utilizing [employer]. FINDINGS: Diagnostic quality: Satisfactory Lung nodules: No [...] 10:23 AM Authorizing ProviderResult TypeResult StatusDennis G [facility] ORDERABLES Final Result * (ABNORMAL) Valproic acid, depakane (01/11/2025 12:14 PM EST)ComponentValueRef RangeTest MethodAnalysis TimePerformed AtPathologist SignatureVALPROIC ACID16 (L)50 - 100 ug/mL01/11/2025 8:31 PM [facility] Specimen (Source)Anatomical Location / LateralityCollection Method / Volume Collection TimeReceived TimeBloodVenous blood / Aakafwt3301/11/2025 12:14 PM EST 01/11/2025 12:14 PM EST Narrative Authorizing ProviderResult TypeResult StatusDennis G Furlong DOLAB BLOOD ORDERABLESFinal ResultPerforming OrganizationAddressCity/State/ZIP CodePhone Number [facility] [address] [place] [address], * CBC without diff (01/11/2025 12:14 PM EST)ComponentValueRef RangeTest Method Analysis TimePerformed AtPathologist JuxgmosseTGN64.24 - 11 X10^9/L103/13/2024 8:05 PM [facility] LABORATORYRBC Count4.534.1 - 5.7 X10^12/L 01/11/2025 8:05 PM [facility] PHIDJGUOGWCxmmrbhmld07.113 - 17 g/dL01/11/2025 8:05 PM [facility] DQRZYTAHPGDnvjexixbn16.439 - 50 %01/11/2025 8:05 PM [facility] KPBAIQKRMFEQP3737 - 100 fL01/11/2025 8:05 PM [facility] TDTBGKAEJUVJL55.127 - 34 pg 01/11/2025 8:05 PM [facility] TTPMDTUMZFUZCI18.032 - 36 g/dL 01/11/2025 8:05 PM [facility] RSRQKSULOKTQP39.611.5 - 15 % 01/11/2025 8:05 PM [facility] LABORATORYPlatelet Nucdk161285 - 450 X10^9/L103/13/2024 8:05 PM [facility] LABORATORYMPV7.37 - 12 fL01/11/2025 8:05 PM [facility] LABORATORYSpecimen (Source)Anatomical Location / LateralityCollection Method / VolumeCollection TimeReceived TimeBloodVenous blood / Jcujuzs7801/11/2025 12:14 PM EST01/11/2025 12:14 PM EST Narrative Authorizing ProviderResult TypeResult StatusDennis G Furlong DOLAB BLOOD ORDERABLESFinal ResultPerforming OrganizationAddressCity/State/ZIP CodePhone Number [facility] [address] [place] [address], [place] [phone] * (ABNORMAL) Lipid profile (01/11/2025 12:14 PM EST)ComponentValueRef RangeTest MethodAnalysis TimePerformed AtPathologist KiryzlwygZTROCANQQQU272(L)150 - 200 mg/dL01/11/2025 8:31 PM [facility] GEENVPAXTZEEYCJXLRDQDT434 27 - 150 mg/dL01/11/2025 8:31 PM [facility] LABORATORYHDL QDPKZSKQMTY56>39 mg/dL01/11/2025 8:31 PM [facility] LABORATORYComment: HDL <40 mg/dL - High Risk HDL > or = 40mg/dL- Desirable HDL >60 mg/dL - Negative Risk LDL (CALC)62<130 mg/dL01/11/2025 8:31 PM [facility] Comment: LDL <100 mg/dL - Desirable LDL >160 mg/dL - High Risk CHOLESTEROL:HDL3.21.0 - 5.011 8:31 PM [facility] LABORATORYVERY LOW ENFQTDPENJE909 - 30 mg/dL01/11/2025 8:31 PM [facility] LABORATORYSpecimen (Source)Anatomical Location / Laterality Collection Method / VolumeCollection TimeReceived TimeBloodVenous blood / Hhwoezg8701/11/2025 12:14 PM EST01/11/2025 12:14 PM EST Narrative Authorizing ProviderResult TypeResult StatusDennis G Furlong DOLAB BLOOD ORDERABLESFinal ResultPerforming OrganizationAddressCity/State/ZIP CodePhone Number [facility] [address] [place] [address], * Comprehensive metabolic panel (01/11/2025 12:14 PM EST)ComponentValueRef Range Test MethodAnalysis TimePerformed AtPathologist NzlhobfgsIYNLOA952758 - 146 mmol/L103/13/2024 8:31 PM [facility] LABORATORYPOTASSIUM4.63.5 - 5.0 mmol/L103/13/2024 8:31 PM [facility] LABORATORYCHLORIDE 74960 - 109 mmol/L103/13/2024 8:31 PM [facility] CARBON VMVKKVD8944 - 32 mmol/L103/13/2024 8:31 PM [facility] LABORATORYANION GAP75 - 15 mmol/L103/13/2024 8:31 PM [facility] LABORATORYBLOOD UREA ZABRQFQX280 - 23 mg/dL01/11/2025 8:31 PM [facility] LABORATORYCREATININE1.070.60 - 1.30 mg/dL01/11/2025 8:31 PM [facility] LABORATORYComment:METHOD TRACEABLE TO IDMD KMCFMIGIQNBKGHR6356 - 99 mg/dL01/11/2025 8:31 PM [facility] LABORATORYCALCIUM9.38.5 - 10.5 mg/dL01/11/2025 8:31 PM [facility] LABORATORYTOTAL PROTEIN6.86.0 - 8.0 g/dL01/11/2025 8:31 PM [facility] LABORATORYALBUMIN4.03.2 - 5.3 g/dL01/11/2025 8:31 PM [facility] LABORATORYALKALINE BEARHRZBVFC4918 - 130 U/L 01/11/2025 8:31 PM [facility] PUDOBSOXFSVFB21<=41 U/L 01/11/2025 8:31 PM [facility] JVJSXVHEOVARD92<=40 U/L 01/11/2025 8:31 PM [facility] LABORATORYBILIRUBIN,TOTAL0.30.3 - 1.2 mg/dL01/11/2025 8:31 PM [facility] LAB[facility]ORYEGFR Non- Race Qsoxcxqle00>=60 ml/min/1.73sq.m103/13/2024 8:31 PM [facility] LABORATORYComment: Reported eGFR is based on the CKD-EPI 2020 equation that does not use a race coefficient. Specimen (Source)Anatomical Location / LateralityCollection Method / Volume Collection TimeReceived TimeBloodVenous blood / Vmjikcb9401/11/2025 12:14 PM EST 01/11/2025 12:14 PM EST Narrative Authorizing ProviderResult TypeResult StatusDennis G Furlong DOLAB BLOOD ORDERABLESFinal ResultPerforming OrganizationAddressCity/State/ZIP CodePhone Number [facility] [address] [place] [address], * [facility] [place], [place] (12/23/2024 12:46 PM EDT) Narrative Authorizing ProviderResult TypeResult StatusDennis G Furlong DOOUTPATIENT REFERRAL ORDERABLESFinal ResultPerforming OrganizationAddressCity/State/ZIP Code Phone Number MANUALLY TRANSCRIBED RESULTS * (ABNORMAL) Cologuard [facility] (06/21/2022 8:00 AM EDT)ComponentValueRef RangeTest MethodAnalysis TimePerformed AtPathologist SignatureEXTERNAL COLOGUARDPositive(A)Txxotnfh54/29/2023 3:36 AM EDTEXDropifi (CLIA #:[id number])Comment: POSITIVE TEST RESULT. A positive Cologuard result [...] (Katey Sanders al, N Engl J Med 2014;370(14):3381-8759.) Cologuard may produce a false negative or false positive result (no colorectal cancer or precancerous polyp present at colonoscopy follow up). A negative Cologuard test result does not guarantee the absence of CRC or advanced adenoma (pre-cancer). The current Cologuard screening interval is every 3 years. ([place] [employer] and U.S. Multi-Society Task Force). Cologuard performance data in a 10,000 patient pivotal study using colonoscopy as the reference method can be accessed at the following location: www.[employer]Play.CornerBlue/results. Additional description of the Cologuard test process, warnings and precautions can be found at www.cologuard.com. Specimen (Source)Anatomical Location / LateralityCollection Method / Volume Collection TimeReceived TimeStool specimen (specimen)Rectum structure / Unknown 06/21/2022 8:00 AM EDT06/22/2022 3:16 PM EDT Narrative Authorizing ProviderResult TypeResult StatusDiandra Maddox SR ACCOUNT EXECUTIVE-CNPLAB ORDERABLESFinal ResultPerforming OrganizationAddressCity/State/ZIP CodePhone Number [employer] (CLIA #:[id number]) [address] [place] [address], from Last 3 Months or Most Recently Relevant to Health Maintenance Insurance * Guarantor: Dale Belcher TypeRelation to PatientDate of PhoneBilling AddressPersonal/NbzevjOjlk83/[birth year][address] [address] * Guarantor: Dale Belcher TypeRelation to PatientDate of PhoneBilling AddressWorkers QbiyLmxb96/07/[address] [address] Advance Directives * Full Code (Latest Code Status on File) Date ActivatedDate InactivatedComments03/24/2022 9:21 AM03/26/2022 5:36 PM Care Teams Team MemberRelationshipSpecialtyStart DateEnd Date Colten Parra DO [address] [facility], [place] [address] PCP - GeneralFamily Medicine04/03/22
--- OUTSIDE RECORDS SUMMARY | 2025-02-23 09:25 | XMS_ITS | Encounter Summary ---
Author Organization [facility] Address [address] [place] [address] Phone Care Team Providers Care Dictating Machine Mechanic Name Role Phone Colten Parra DO Primary Care Provider + [phone] Encounter Details DateTypeDepartmentCare Team (Latest Contact Info)Dlofihqzgpf21/18/2025Scanned Document [facility] [address] [place] [address] Scanning, Generic Provider Social History Tobacco UseTypesPacks/DayYears UsedDateSmoking Tobacco: Every DayCigarettes Smokeless Tobacco: NeverAlcohol UseStandard Drinks/WeekCommentsYes0 (1 standard drink = 0.6 oz pure alcohol)very littleSex and Gender InformationValueDate RecordedSex Assigned at NbxrvPmwd11/09/2024 1:53 PM EDTLegal DivWofn85/26/2022 9:05 AM ESTGender LugquachWmgg98/09/2024 1:53 PM EDTSexual OrientationStraight 12/11/2023 1:53 PM EDTdocumented as of this encounter Plan of Treatment DateTypeDepartmentCare Team (Latest Contact Info)Sebmmlovmww37/01/2026 10:45 AM EDTOffice Visit [facility] [address] [facility] [address] [place] [address] Rachel Stacy MD [address] [facility] [address] [place], [place] [id number] documented as of this encounter Procedures Procedure NamePriorityDate/TimeAssociated DiagnosisCommentsOUTSIDE LAB SCAN 02/18/2025 documented in this encounter Results * OUTSIDE LAB SCAN (02/18/2025) Narrative 02/18/2025 Ordered by an unspecified provider. Authorizing ProviderResult TypeResult StatusGeneric Provider ScanningOUTSIDE SCANFinal Result documented in this encounter Visit Diagnoses Not on filedocumented in this encounter Care Teams Team MemberRelationshipSpecialtyStart DateEnd Date Colten Parra DO PCP - Fdbvgmn23/22/21documented as of this encounter
--- NOTE | 2025-02-23 09:28 | MR_ITS ---
The [address] [address] Patient Name: ASHOK DOSS MRN: [id number] date: 1965 Sex: M Assigned Patient Location: MRI Current Patient Location: Accession/Order Number: [id number] Exam Date: 02/23/2025 10:00 Report Date: 02/24/2025 11:54 At the request of: GREGORY WERNER NP Procedure: MR lumbar spine wo con MRI lumbar spine performed without contrast Comparison 02/17/2025 x-rays INDICATION: Back pain, lumbar degenerative disc disease FINDINGS: Minimal straightening normal lordosis. Oxhw-kt-mwdiktvi dextrocurvature. Multilevel Schmorl's node endplate deformities notably T11-L2 and the superior plate of L5. There is moderate disc space narrowing at L5-S1. Evidence of disc desiccation L2-L5. Otherwise lumbar vertebral heights and alignment preserved. Evidence of Modic type II endplate changes greatest the right at L5-S1. 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 Additionally, multilevel facet arthropathy noted. The conus medullaris terminates normally at L1-L2. Paraspinal soft tissues demonstrates left renal T2 hyperintensities suggestive of cysts.. T12-L1: Not entirely visualized on the axial images. There is a right foraminal zone protrusion on the sagittal images,. This causes mild to moderate right foraminal narrowing. Facet joints unremarkable. Canal is grossly patent. L1-2: Disc desiccation with small Schmorl's node. Mild facet arthropathy. Mild canal and mild neural from narrowing due to congenitally short pedicles. L2-3: Broad-based disc bulge with minimal endplate spurring extending into foramina zones. Cbre-fb-udyjyoxd facet arthropathy. There is jrvq-ui-vvqjojbs central canal stenosis and mild to moderate left subarticular zone effacement. There is moderate left neural foraminal narrowing and mild right neural foraminal narrowing.. L3-4: Broad-based disc bulge with endplate spurring extending to both foramina zones right greater left. Evidence of moderate facet arthropathy. There is at least moderate central canal stenosis and subarticular recess narrowing. There is moderate right neural foraminal narrowing and mild left neural foraminal narrowing L4-5: Broad-based disc bulge with moderate bilateral mild/moderate canal and predominantly left-sided subarticular zone effacement. There is moderate bilateral neural foraminal narrowing. L5-S1: Circumferential disc bulge with endplate osteophytosis extending both foramina zones. There is a superimposed right central extrusion extending caudally this causes moderate narrowing right subarticular zone with posterior displacement of the traversing right S1 nerve root. There is severe right foraminal narrowing, correlate with right L5 radiculopathy. Moderate left neural foraminal narrowing identified. MR/MR lumbar spine wo con IMPRESSION: Overall moderate multilevel degenerative changes due to combination of congenitally short pedicles, facet arthropathy, and disc disease. Severe right foraminal narrowing at L5-S1 due to a right subarticular to foraminal disc extrusion this posteriorly displaces the traversing S1 nerve root as well without definite compression. Correlate with possible right L5 radiculopathy. Impression dictated by: Andrew Freeman M.D. 02/24/2025 11:54 AM Dictation Location: [place] [address] Electronically authenticated by: [id number] Y Date: 02/24/2025 11:54
== END 2025-02-23 09:23 | disposition home or self-care (01) ==
LOC: MRI 09:22
PROVIDERS: PCP Family Medicine; Visit Provider Nurse Practitioner
DX: M51.360 Other intervertebral disc degeneration, lumbar region with discogenic back pain only (principal); M47.816 Spondylosis without myelopathy or radiculopathy, lumbar region
CPT/HCPCS: 72148